=== PATIENT | male | born 1940 | race Caucasian/White ===

== ENCOUNTER → 2016-03-03 | Outpatient (CLI) | payer MEDICARE, OTHER ==
[~2016-03-03] MED LIST: ACID1TAB PO; AGM875T PO; AML5T; AMLO10TA PO; AMLO10TA2 PO; AMLO5TAB2 PO; ASP81TEC PO; ASPI-983 PO; ATN25T; Aspirin PO; CARV12.53 PO; CLON0.1T PO; CLOP75TA28 PO; CLPD75T PO; COLE3.75 PO; CYCL10TA45; DICL75TA2 PO; DIPH25TA82 PO; DIPHENHYDRAMINE PO; FENO145T PO; FRSM20T PO; FURO40TA4 PO; GABA-488 PO; GABA600T PO; GABA600T2 PO; GBPN300C PO; HCTZ12.5T; HYDR25TA4 PO; IPRA3AMP INH; KCL10CCR PO; LISI40TA PO; LSNP20T PO; MELA1TAB16 PO; METH10TA12 PO; MULT-974 PO; NEBU-140 MC; NF-DICLOTA; NF-VITD400 PO; NITR-65 PO; OMEP-10 PO; OMG1KC PO; OXYC15TA21 PO; OXYC5TAB71 PO; PANT40TA3 PO; PHEN200T27 PO; PNT40TEC PO; POLY17PO23 PO; POTA-51 PO; PRALUENT SQ; PRNMV1T PO; SMV20T; SULF1TAB38 PO; TRZS2T PO; VENL150C PO; VENL150T4 PO; VENL225T3 PO; VENL75CA55 PO; VENL75CA93 PO; VNL75T PO; [UNRECOGNIZED DRUG - CODE]; [UNRECOGNIZED DRUG - OTHER] PO
--- OUTSIDE RECORDS SUMMARY | 2016-03-03 11:10 | XMS REPORT | Continuity of Care Document ---
Author Author [facility] Organization [facility] Address Unknown Phone Unavailable Care Team Providers Care Correctional Officer Name Role Phone Shelton Aburto PCP [phone] Source Comments Some departments are not documenting in the electronic medical record. If you do not see the information that you expected, contact Release of Information in the Health Information Management department at [phone] for further assistance in locating additional records.[facility] Active Allergies and Adverse Reactions Allergen Noted Date Severity Reactions Comments Adhesive 06/29/2009 Medium SEE COMMENTS Foam Tape, causes burning and skin breakdown and burning Iv Contrast Dye, Iodine 03/04/2015 Medium RASH Containing Current Medications Prescription Sig. Disp. Refills Start End Date Status Date diphenhydrAMINE Take 25 mg by mouth At Active (BENADRYL) 25 mg capsule Bedtime Daily. MULTIVITAMIN (ONE-A-DAY Take 1 Tab by mouth Active ESSENTIAL PO) Daily. cholecalciferol (VITAMIN Take 1 Tab by mouth Every Active D-3) 400 unit PO Tab Morning. potassium chloride SR Take 1 Tab by mouth Active (K-DUR) 20 mEq PO tablet Daily. carvedilol (COREG) 12.5 Take 1 Tab by mouth twice 180 Tab 3 08/07/19 Active mg PO tablet daily. [address] Take 75 mg by mouth twice Active (VOLTAREN) 75 mg tablet daily. venlafaxine XR (EFFEXOR Take 225 mg by mouth Active XR) 75 mg capsule daily. pantoprazole DR Take 40 mg by mouth at Active (PROTONIX) 40 mg tablet bedtime daily. lisinopril (PRINIVIL, Take 40 mg by mouth Active ZESTRIL) 40 mg tablet daily. furosemide (LASIX) 40 mg Take 40 mg by mouth Active tablet daily. clopiDOGrel (PLAVIX) 75 Take 1 Tab by mouth 1 Tab 10/18/19 Active mg tablet daily. May resume on POD 13 5 oxyCODone (OXY-IR) 15 mg Take 15 mg by mouth every Active tablet morning gabapentin (NEURONTIN) Take 300 mg by mouth. 2 Active 300 mg capsule cap twice daily CODEINE SULFATE PO Take by mouth. Active Active Problems Problem Noted Date Bladder stones 11/02/2015 Lumbar stenosis 10/15/2012 Chronic suprapubic catheter (HCC) 11/15/2010 Overview: Initially placed 11/15/2010; Dr. Douglas. 20 Fr SPT changed q 2-4 wks, indefinitely. L ast Assessment & Plan: Cystoscopy today revealed no evidence of bladder tumor or lesions. (+)few small, sub-cm stones. Renal insufficiency 07/30/2010 Hx-TIA (transient ischemic attack) 07/30/2010 GABI (obstructive sleep apnea) 07/30/2010 Overview: Uses C-PAP. Chronic back pain Bladder neck contracture Overview: Recurrent BNC s/p multiple TUIBNC +/- Mitomycin C injection. Currently managed w/ chronic SP Tube, initially placed 11/15/2010; Dr. Douglas. L ast Assessment & Plan: See chronic SP catheter A&P note. CAD (coronary artery disease) Prostate cancer ([facility]) Overview: PSA (09/28/1996)=8.9 ng/mL. RRP -- 12/23/1996; Angel Cordova MD. pT2 N0 Mx PSA (01/15/1998)=0.51 ng/mL. Salvage XRT ~ 1999. LHRH-agonist ~ 1999. L ast Assessment & Plan: RTC w/ outside PSA ~ 6 mo. Post-traumatic bulbous urethral stricture Overview: Recurrent Urethral Stricture s/p multiple DVIU 's. Currently managed w/ chronic SP Tube, initially placed 11/15/2010; Dr. Douglas. L ast Assessment & Plan: See chronic SP catheter A&P note. IVA (stress urinary incontinence), male Overview: AUS Placement -- 05/10/2010; Dr. Douglas. AUS Removal d/t urethral erosion -- 08/28/2010; Dr. Douglas. L ast Assessment & Plan: See chronic SP catheter A&P note. Hematuria, gross Overview: Cystoscopy & CT Urogram (02/11/2013) --> no evidence of malignancy or stones. Cystoscopy (07/22/2014) --> No evidence of malignancy. Cystoscopy (11/02/2015) --> No evidence of malignancy. L ast Assessment & Plan: Likely secondary to chronic anticoagulation & catheter irritation. Repeat cysto ~ July 2015. History of tobacco use Chronic anticoagulation Obesity (BMI 30-39.9) Immunizations Name Dates Previously Given Next Due Pneumococcal Vaccine 10/16/2012 (23-[place] Adult) Social History Tobacco Use Types Packs/Day Years Used Date Former Smoker Cigarettes 1 20 Quit: 04/30/1989 Smokeless Tobacco: Never Used Alcohol Use Drinks/Week oz/Week Comments Yes rarely Last Filed Vital Signs Vital Sign Reading Time Taken Blood Pressure 141/61 11/02/2015 2:57 PM CDT Pulse 61 11/02/2015 2:57 PM CDT Temperature 36.9 C (98.5 F) 10/17/2012 8:00 AM CDT Respiratory Rate 16 05/06/2011 4:00 AM CDT Height 1.778 m (5' 10") 11/02/2015 2:57 PM CDT Weight 115.667 kg (255 lb) 11/02/2015 2:57 PM CDT Body Mass Index 36.59 11/02/2015 2:57 PM CDT Oxygen Saturation 98% 10/17/2012 8:00 AM CDT Plan of Care Health Maintenance Due Date Last Done Comments Physical (Comprehensive) 1945 Exam Pertussis Vaccine 1949 Tetanus Vaccine 12/25/1955 Shingles Vaccine 1998 Prevnar/Pneumovax (#2) 10/16/2013 10/16/2012 Influenza Vaccine 10/22/2015 Results from Last 3 Months Not on file
--- NOTE | 2016-03-03 15:38 | Diagnostic Imaging Report ---
PROCEDURE: MRI right joint upper extremity without contrast. TECHNIQUE: Multiplanar, multisequence non contrast-enhanced MRI of the right upper extremity was accomplished. INDICATION: Right shoulder pain. FINDINGS: There is acromioclavicular joint osteoarthritis with associated effusion and prominent osteophyte. There is a ganglion cyst communicating with the AC joint extending inferiorly and medially. There is subchondral edema seen. There is inferior osteophyte from the clavicular side of the joint noted. There is superior subluxation of the humeral head with associated retracted full-thickness tear of the supraspinatus and infraspinatus tendons with retraction of the tendon stump of 3-4 cm. There is subchondral cyst formation at the insertion of the supraspinatus footplate region identified. The subscapularis demonstrates a full-thickness tear with a few remaining intact fibers inferiorly seen. There is medial subluxation of the long head of biceps tendon superiorly. The glenohumeral joint demonstrates a small effusion. There is cartilage fissuring and thinning seen and inferior osteophytes noted of the humeral side of this joint. There is mild complex appearing distention of the subdeltoid subacromial bursa. The glenoid labrum is not well evaluated. There is moderate to severe atrophy of the supraspinatus and subscapular muscles. There is mild atrophy in the infraspinatus. When compared to 08/27/2013 exam, there is worsening of the rotator cuff tears and worsening of the atrophy in the rotator cuff muscles. IMPRESSION: 1. Chronic full-thickness retracted rotator cuff tear with superior subluxation of the humeral head. There is significant atrophy of the supraspinatus and subscapularis muscles. 2. Prominent AC joint osteoarthritis with a joint effusion and inferior osteophytes. 3. Full-thickness tear involving the superior fibers of the subscapular tendon. Dictated by: Dictated on workstation # [id number]
== END ==
LOC: RAD 11:06
PROVIDERS: ATTEND Nurse Practitioner Family
DX: M25.511 Pain in right shoulder (principal)
CPT/HCPCS: 73221

== ENCOUNTER 2016-05-15 22:41 | Emergency (ER) | payer MEDICARE, OTHER ==
[~2016-05-15] VITALS: Ht 177.8 cm; Wt 115.2 kg
[~2016-05-15 22:41] MED LIST changes: -ACID1TAB PO; -AMLO10TA2 PO; -ASPI-983 PO; -CLON0.1T PO; -CLOP75TA28 PO; -GABA600T2 PO; -IPRA3AMP INH; -NEBU-140 MC; -PANT40TA3 PO; -PRALUENT SQ; -VENL75CA93 PO
--- NOTE | 2016-05-15 23:31 | ED Abdominal Pain ---
General Chief Complaint: Abdominal/GI Problems Stated Complaint: AB PAIN DISCLORATION 4 DAYS POST COLONOSCOPY Source of Information: Patient, RN Notes Reviewed Exam Limitations: No Limitations History of Present Illness Time Seen By Provider: 23:31 Initial Comments As above and below. Concerned because has had rapid bruising, swelling, and ecchymosis develop across his lower abdomen extending around to his sides today. No problems p/ his procedure @ [facility] 4 days ago until now. Timing/Duration: 12-24 Hours Severity/Quality: Moderate Location: RLQ, LLQ, Suprapubic Activities at Onset: None Modifying Factors: Improves With Other (unknown) Associated Symptoms: Swelling/Mass in Abdomen Allergies and Home Medications Allergies Uncoded Allergies: SURGICAL TAPE (Adverse Reaction, Intermediate, IRRITATES SKIN, 08/16/10) Home Medications Amlodipine Besylate 10 Mg Tablet, 10 MG PO DAILY, (Reported) Carvedilol 12.5 Mg Tablet, 12.5 MG PO BID, (Reported) Clopidogrel Bisulfate 75 Mg Tab, 75 MG PO DAILY, (Reported) Colesevelam Hcl 3.75 Gm Powd.pack, 3.75 GM PO DAILY, (Reported) Diclofenac Sodium 75 Mg Tablet.dr, 75 MG PO BID, (Reported) Diphenhydramine Hcl 25 Mg Tablet, 25 MG PO HS, (Reported) Furosemide 40 Mg Tablet, 40 MG PO DAILY, (Reported) Gabapentin 300 Mg Capsule, 600 MG PO BID, (Reported) TAKES 2 (300MG) CAPSULES Hydrochlorothiazide 25 Mg Tablet, 25 MG PO DAILY, (Reported) Lisinopril 40 Mg Tablet, 40 MG PO DAILY, (Reported) Melatonin/Pyridoxine Hcl (B6) 1 Each Tablet, 5 MG PO HS, (Reported) Multivitamin 1 Each Tablet, 1 TAB PO DAILY, (Reported) [place] 3 Polyunsat Fatty Acids 1,000 Mg Cap, 1,000 MG PO BID, (Reported) Oxycodone Hcl 5 Mg Tablet, 20 MG PO DAILY, (Reported) TAKES 4 (5MG) TABLETS Pantoprazole Sod 40 Mg Tab, 40 MG PO HS, (Reported) Polyethylene Glycol 17 Gm Pack, 17 GM PO DAILY PRN for CONSTIPATION, (Reported) Potassium Chloride 20 Meq Tablet.er, 20 MEQ PO HS, (Reported) Terazosin Hcl 2 Mg Cap, 2 MG PO DAILY, (Reported) Venlafaxine Hcl 75 Mg Cap.sr.24h, 75 MG PO DAILY, (Reported) TAKES ALONG WITH VENLAFAXINE ER 150MG Venlafaxine Hcl 150 Mg Tab.osm.24, 150 MG PO DAILY, (Reported) TAKES ALONG WITH VENLAFAXINE ER 75MG Vitamin D 400 Iu Tab, 400 UNIT PO DAILY, (Reported) [Aspirin] 81 MG TABEC, 81 MG PO DAILY, #100 Prescribed by: KIMBERLI BARRETT on 12/12/13 0809 Review of Systems Constitutional: see HPI Gastrointestinal: See HPI, Other (lower abdominal swelling and eccymosis) Skin: see HPI, other (extensive ecchymosis/bruising lower abdomen) All Other Systems Reviewed Negative Unless Noted: Yes (Negative excepted noted.) Past Cfuryhi-Bkpziz-Zrwguq Hx Patient Social History Alcohol Use: Occasionally Uses Recreational Drug Use: No Smoking Status: Former Smoker Former Smoker/When Quit: Dec 11, 1988 Recent Foreign Travel: No Contact w/Someone Who Travel: No Recent Hopitalizations: Yes Immunizations Up To Date Date of Pneumonia Vaccine: Jul 24, 2011 Date of Influenza Vaccine: Dec 25, 2013 Surgeries HX Surgeries: Yes (SURG TO RESOLVE URINARY INC, TURP, NECK, colostomy) Surgeries: Abdominal, Adenoidectomy, Appendectomy, Bladder Surgery, CABG, Prostatectomy, Tonsillectomy, Urinary Diversion Respiratory Hx Respiratory Disorders: Yes Respiratory Disorders: COPD Cardiovascular Hx Cardiac Disorders: Yes Cardiac Disorders: Coronary Artery Disease, Heart Murmur, High Cholesterol, Hypertension Neurological Hx Neurological Disorders: 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) Neurological Disorders: Stroke Reproductive System Hx Reproductive Disorders: No Genitourinary Hx Genitourinary Disorders: Yes (suprapubic catheter) Genitourinary Disorders: Prostate Problems Gastrointestinal Hx Gastrointestinal Disorders: Yes (recent colostomy ) Gastrointestinal Disorders: Gastroesophageal Reflux Musculoskeletal Hx Musculoskeletal Disorders: Yes (uses walker) Musculoskeletal Disorders: Back Injury Endocrine Hx Endocrine Disorders: No HEENT HX ENT Disorders: No Cancer Hx Cancer: Yes Cancer: Prostate Psychosocial Hx Psychiatric Problems: No Blood Transfusions Hx Blood Disorders: No Physical Exam Vital Signs Capillary Refill : General Appearance: WD/WN, obese, other (anxious) Respiratory: no respiratory distress Cardiovascular: regular rate, rhythm Gastrointestinal: soft, other (extensive bruising/swelling lower abdomen extending laterally around his sides (L>R).) Rectal: deferred Neurologic/Psychiatric: no motor/sensory deficits, alert, oriented x 3 Skin: warm/dry, ecchymosis (as outlined above) Progress/Results/Core Measures Results/Orders Lab Results Laboratory Tests Test 05/16/16 00:16 Range/Units White Blood Count 7.2 4.3-11.0 10^3/uL Red Blood Count 3.54 L 4.35-5.85 10^6/uL Hemoglobin 10.9 L 13.3-17.7 G/DL Hematocrit 33 L 40-54 % Mean Corpuscular Volume 94 80-99 FL Mean Corpuscular Hemoglobin 31 25-34 PG Mean Corpuscular Hemoglobin Concent 33 32-36 G/DL Red Cell Distribution Width 15.2 H 10.0-14.5 % Platelet Count 338 130-400 10^3/uL Mean Platelet Volume 9.1 7.4-10.4 FL Neutrophils (%) (Auto) 63 42-75 % Lymphocytes (%) (Auto) 18 12-44 % Monocytes (%) (Auto) 12 0-12 % Eosinophils (%) (Auto) 6 0-10 % Basophils (%) (Auto) 0 0-10 % Neutrophils # (Auto) 4.6 1.8-7.8 X 10^3 Lymphocytes # (Auto) 1.3 1.0-4.0 X 10^3 Monocytes # (Auto) 0.9 0.0-1.0 X 10^3 Eosinophils # (Auto) 0.5 H 0.0-0.3 10^3/uL Basophils # (Auto) 0.0 0.0-0.1 10^3/uL Prothrombin Time 13.3 12.2-14.7 SEC INR Comment 1.0 0.8-1.4 Activated Partial Thromboplast Time 32 24-35 SEC Sodium Level 139 135-145 MMOL/L Potassium Level 4.0 3.6-5.0 MMOL/L Chloride Level 104 98-107 MMOL/L Carbon Dioxide Level 23 21-32 MMOL/L Anion Gap 12 5-14 MMOL/L Blood Urea Nitrogen 17 7-18 MG/DL Creatinine 1.06 0.60-1.30 MG/DL Estimat Glomerular Filtration Rate > 60 BUN/Creatinine Ratio 16 Glucose Level 113 H 70-105 MG/DL Calcium Level 9.3 8.5-10.1 MG/DL Total Bilirubin 0.5 0.1-1.0 MG/DL Aspartate Amino Transf (AST/SGOT) 45 H 5-34 U/L Alanine Aminotransferase (ALT/SGPT) 52 0-55 U/L Alkaline Phosphatase 104 40-136 U/L Total Protein 7.6 6.4-8.2 G/DL Albumin 3.9 3.2-4.5 G/DL My Orders Orders - JALEEL MILLS DO Cbc With Automated Diff (05/15/16 23:30) Comprehensive Metabolic Panel (05/15/16 23:30) Protime With Inr (05/15/16 23:30) Partial Thromboplastin Time (05/15/16 23:30) Ct Abdomen/Pelvis Wo (05/15/16 23:30) Saline Lock/Iv-Start (05/16/16 00:17) Vital Signs/I&O Progress Note : Progress Note Did discuss patient's presenting symptoms and the radiologist's findings on CT c / the patient's surgeon @ [facility]. He felt comfortable that the patient's findings/ symptoms are typical post op findings associated c/ the procedure he performed on the patient. Recommend reassurance to the patient and his . Offered to see them in his office on Monday. Their to call him sooner if further concerns /questions. Diagnostic Imaging Diagonstic Imaging: CT Plain Films/CT/US/NM/MRI: abdomen, pelvis Reviewed: Reviewed [facility] Study Departure Impression Impression: Primary Impression: Post op abdominal wall hematoma Disposition: HOME, SELF-CARE Condition: Stable Departure-Patient Inst. Decision time for Depature: 01:07 Referrals: FEDE BUTLER MD (PCP/Family) Primary Care Physician Patient Instructions: HEMATOMA Add. Discharge Instructions: All discharge instructions reviewed with patient and/or family. Voiced understanding. YOUR SURGEON SAID TO CALL HIM IF ANYTHING CHANGES, OR WITH CONCERNS. HE IS IN HIS OFFICE ALL DAY MONDAY AND SAID HE WOULD BE GLAD TO SEE THEN IN NEEDED. JALEEL MILLS DO May 15, 2016 23:31
[2016-05-16 00:22] LABS: BASOPHILS % (AUTO) 0 % (0-10); EOSINOPHILS # (AUTO) 0.5 10^3/uL (0.0-0.3); EOSINOPHILS % (AUTO) 6 % (0-10); LYMPHOCYTES # (AUTO) 1.3 X 10^3 (1.0-4.0); LYMPHOCYTES % (AUTO) 18 % (12-44); MEAN CORPUSCULAR HEMOGLOBIN 31 PG (25-34); MEAN CORPUSCULAR HGB CONC 33 G/DL (32-36); MEAN CORPUSCULAR VOLUME 94 FL (80-99); MEAN PLATELET VOLUME 9.1 FL (7.4-10.4); MONOCYTES # (AUTO) 0.9 X 10^3 (0.0-1.0); MONOCYTES % (AUTO) 12 % (0-12); NEUTROPHILS # (AUTO) 4.6 X 10^3 (1.8-7.8); NEUTROPHILS % (AUTO) 63 % (42-75); PLATELET COUNT 338 10^3/uL (130-400); RED BLOOD COUNT 3.54 10^6/uL (4.35-5.85); RED CELL DISTRIBUTION WIDTH 15.2 % (10.0-14.5); WHITE BLOOD COUNT 7.2 10^3/uL (4.3-11.0)
[2016-05-16 00:34] LABS: PROTHROMBIN TIME PATIENT 13.3 SEC (12.2-14.7)
[2016-05-16 00:42] LABS: ALANINE AMINOTRANSFERASE 52 U/L (0-55); ALBUMIN 3.9 G/DL (3.2-4.5); ANION GAP 12 MMOL/L (5-14); ASPARTATE AMINO TRANSFERASE 45 U/L (5-34); BILIRUBIN,TOTAL 0.5 MG/DL (0.1-1.0); BLOOD UREA NITROGEN 17 MG/DL (7-18); BUN/CREATININE RATIO 16; CALCIUM 9.3 MG/DL (8.5-10.1); CARBON DIOXIDE 23 MMOL/L (21-32); CHLORIDE 104 MMOL/L (98-107); CREATININE SERUM 1.06 MG/DL (0.60-1.30); GFR ESTIMATED > 60; GLUCOSE 113 MG/DL (70-105); SODIUM 139 MMOL/L (135-145); TOTAL PROTEIN 7.6 G/DL (6.4-8.2)
[2016-05-16 01:15] VITALS: BP 163/85
--- NOTE | 2016-05-16 09:00 | Diagnostic Imaging Report ---
PROCEDURE: CT abdomen and pelvis without contrast. TECHNIQUE: Multiple contiguous axial images were obtained through the abdomen and pelvis without the use of intravenous contrast. INDICATION: Redness around surgery site extending across the abdomen to the hips. CORRELATION STUDY: 01/06/2014. FINDINGS: The lung bases are with scattered areas of likely fibrosis. Coronary artery calcification is present in a patient who is post sternotomy. Diffuse hepatic steatosis is present. There is a moderate-sized hiatal hernia. The spleen is unremarkable. There is atrophic change of the pancreas. The adrenal glands are unremarkable. The gallbladder and biliary tree are unremarkable. The kidneys are relatively unremarkable without hydronephrosis. There is mild scattered wall calcification of the abdominal aorta, nonaneurysmal. There is an inferior epigastric hernia containing fat. There is also a small amount of gas noted in this hernia defect. No bowel involvement. Fat-containing umbilical hernia with inflammatory stranding. Post operative changes of a left lower quadrant colostomy. There is some stranding and haziness about the left anterior abdominal wall fat. No definitive focal encapsulated fluid collection to suggest abscess. Gaona's pouch is present with the distal colon decompressed. The small bowel is not obstructed. No significant abdominal fluid collections. There are surgical changes within the pelvis with scattered surgical clips. The bladder is decompressed around a suprapubic catheter. There is a trace amount of free pelvic fluid. The osseous structures demonstrate extensive prior posterior surgical and anterior fusion hardware to be present. There is rather pronounced disc space narrowing at the T12-L1 level appearing stable. IMPRESSION: Post surgical stranding with cellulitis not excluded along the left anterior abdominal wall. No definitive interval abscess formation. Dictated by: Dictated on workstation # [id number]
--- OUTSIDE RECORDS SUMMARY | 2016-05-31 15:32 | XMS REPORT | Continuity of Care Document ---
Author Author [facility] Organization [facility] Address Unknown Phone Unavailable Care Team Providers Care Cafeteria Counter Attendant Name Role Phone Darleen Aburto PCP [phone] Source Comments Some departments are not documenting in the electronic medical record. If you do not see the information that you expected, contact Release of Information in the Health Information Management department at [phone] for further assistance in locating additional records.[facility] Active Allergies and Adverse Reactions Allergen Noted [...] note. CAD (coronary artery disease) Prostate cancer ([facility]) Overview: PSA (09/28/1996)=8.9 ng/mL. RRP -- [...] tobacco use Chronic anticoagulation Obesity (BMI 30-39.9) Most Recent Encounters Date Type Specialty Providers Description 04/20/2016 Orders Only Urology Fred Austin PA-C Prostate cancer ( HCC) (Primary Dx) Immunizations Name Dates Previously Given Next Due [...] 1998 Prevnar/Pneumovax (#2) 10/16/2013 10/16/2012 Influenza Vaccine 10/21/2016 Results from Last 3 Months Not on file
--- OUTSIDE RECORDS SUMMARY | 2016-05-31 15:32 | XMS REPORT | Continuity of Care Document ---
Author Author [facility] Organization [facility] Address Unknown Phone Unavailable Allergies Active Description Code Type Severity Reaction Onset Reported/Identified Relationship to Patient Clinical Status Yes SURGICAL TAPE SURGICAL TAPE Moderate IRRITATES SKIN 08/16/2010 Yes CRESTOR CRESTOR Mild N/A 08/30/2011 Yes LIPITOR LIPITOR Mild N/A 08/30/2011 Yes NIASPAN NIASPAN Mild N/A 08/30/2011 Yes ZOCOR ZOCOR Mild N/A 08/30/2011 Medications Problems Date Dx Coded Attending Type Code Diagnosis Diagnosed By 10/02/2010 Ot 788.20 RETENTION OF URINE NOS 10/02/2010 Ot V55.6 ATTEN TO URINOSTOMY NEC 10/31/2010 Ot 599.0 URIN TRACT INFECTION NOS 10/31/2010 Ot 791.9 ABN URINE FINDINGS NEC 01/26/2011 Ot 791.9 ABN URINE FINDINGS NEC 01/26/2011 Ot V53.6 FITTING URINARY DEVICES 03/04/2012 Ot 599.0 URIN TRACT INFECTION NOS 12/12/2013 KIMBERLI BARRETT MD Ot 272.4 HYPERLIPIDEMIA NEC/NOS 12/12/2013 KIMBERLI BARRETT MD Ot 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 12/12/2013 KIMBERLI BARRETT MD Ot 401.9 HYPERTENSION NOS 12/12/2013 KIMBERLI BARRETT MD Ot 414.01 CORONARY ATHEROSCLEROSIS OF [place] CORON 12/12/2013 KIMBERLI BARRETT MD Ot 414.02 CORON ATHEROSCLEROSIS AUTOLOG VEIN BYPAS 12/12/2013 KIMBERLI BARRETT MD Ot 414.2 CHRONIC TOTAL OCCLUSION OF CORONARY KIT 12/12/2013 KIMBERLI BARRETT MD Ot 496 CHR AIRWAY OBSTRUCT NEC 12/12/2013 KIMBERLI BARRETT MD Ot 786.09 RESPIRATORY ABNORM NEC 12/12/2013 KIMBERLI BARRETT MD Ot V45.81 AORTOCORONARY BYPASS 12/12/2013 KIMBERLI BARRETT MD Ot V58.63 LONG-TERM(CURRENT)USE OF ANTIPLATELET/AN 12/12/2013 KIMBERLI BARRETT MD Ot V58.69 OT MED,LT,CURRENT USE 02/03/2014 KIMBERLI BARRETT MD Ot 401.9 02/03/2014 KIMBERLI BARRETT MD Ot 443.9 09/24/2014 JT JENSEN, ZION Grullon Ot 272.4 09/24/2014 JT JENSEN, ZION Grullon Ot 401.9 09/24/2014 JT JENSEN, ZION Grullon Ot 414.9 09/24/2014 ZION HUYNH Ot 433.10 10/16/2014 RENÉE DOYLE, JUSTIN Quinteros Ot 786.09 10/29/2014 RENÉE DOYLE, JUSTIN Quinteros Ot 786.09 01/20/2015 ADRIANA GALLO TEXTILE MACHINERY INSTRUCTOR Ot K42.9 01/20/2015 ADRIANA GALLO TEXTILE MACHINERY INSTRUCTOR Ot R10.9 02/06/2015 ADRIANA GALLO TEXTILE MACHINERY INSTRUCTOR Ot E86.0 02/06/2015 ADRIANA GALLO TEXTILE MACHINERY INSTRUCTOR Ot N39.0 02/10/2015 ADRIANA GALLO TEXTILE MACHINERY INSTRUCTOR Ot K42.9 02/10/2015 ADRIANA GALLO TEXTILE MACHINERY INSTRUCTOR Ot R10.9 08/11/2015 ADRIANA GALLO TEXTILE MACHINERY INSTRUCTOR Ot E86.0 DEHYDRATION 08/28/2015 ADRIANA GALLO TEXTILE MACHINERY INSTRUCTOR Ot E86.0 DEHYDRATION 03/03/2016 Ot 789.00 ABDOMINAL PAIN, UNSPECIFIED SITE 03/03/2016 Ot 790.6 ABN BLOOD CHEMISTRY NEC 03/03/2016 Ot 414.00 CORON ATHEROSCLER NOS TYPE VESSEL, NATIV 03/03/2016 Ot 429.3 CARDIOMEGALY 03/03/2016 Ot 786.05 SHORTNESS OF BREATH 03/03/2016 Ot 786.50 CHEST PAIN NOS 03/03/2016 Ot 796.4 ABN CLINICAL FINDING NEC 03/03/2016 Ot 486 PNEUMONIA, ORGANISM NOS 03/03/2016 Ot 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 03/03/2016 Ot 397.0 TRICUSPID VALVE DISEASE 03/03/2016 Ot 401.9 HYPERTENSION NOS 03/03/2016 Ot 414.00 CORON ATHEROSCLER NOS TYPE VESSEL, NATIV 03/03/2016 Ot 786.50 CHEST PAIN NOS 03/03/2016 Ot 401.9 HYPERTENSION NOS 03/03/2016 Ot 414.01 CORONARY ATHEROSCLEROSIS OF [place] CORON 03/03/2016 Ot 786.50 CHEST PAIN NOS 03/03/2016 Ot 724.02 SPINAL STENOSIS, LUMBAR REG, W/OUT NEURO 03/03/2016 JUAN DOYLE, JORGE Rodriguez Ot 716.91 ARTHROPATHY NOS-SHLDER 03/03/2016 JORGE MARTINEZ MD Ot 840.9 SPRAIN SHOULDER/ARM NOS 03/03/2016 JORGE MARTINEZ MD Ot E928.9 ACCIDENT NOS 03/03/2016 KIMBERLI BARRETT MD Ot 272.4 HYPERLIPIDEMIA NEC/NOS 03/03/2016 KIMBERLI BARRETT MD Ot 401.9 HYPERTENSION NOS 03/03/2016 KIMBERLI BARRETT MD Ot 414.00 CORON ATHEROSCLER NOS TYPE VESSEL, NATIV 03/03/2016 KIMBERLI BARRETT MD Ot 401.9 HYPERTENSION NOS 03/03/2016 KIMBERLI BARRETT MD Ot 443.9 PERIPH VASCULAR DIS NOS 03/03/2016 ZION HUYNH Ot 272.4 HYPERLIPIDEMIA NEC/NOS 03/03/2016 ZION HUYNH Ot 401.9 HYPERTENSION NOS 03/03/2016 ZION HUYNH Ot 414.9 CHR ISCHEMIC HRT DIS NOS 03/03/2016 ZION HUYNH Ot 433.10 CAROTID ARTERY OCCLUSION W O CEREBRAL IN 03/03/2016 RENÉE DOYLE, UJJABURT Quinteros Ot 786.09 RESPIRATORY ABNORM NEC 03/03/2016 ADRIANA GALLO APRN Ot K42.9 UMBILICAL HERNIA WITHOUT OBSTRUCTION OR 03/03/2016 ADRIANA GALLO APRN Ot R10.9 UNSPECIFIED ABDOMINAL PAIN 03/03/2016 ADRIANA GALLO APRN Ot E86.0 DEHYDRATION 03/03/2016 ADRIANA GALLO APRN Ot N39.0 URINARY TRACT INFECTION, SITE NOT SPECIF 03/03/2016 ADRIANA GALLO APRN Ot E86.0 DEHYDRATION 03/04/2016 ADRIANA GALLO APRN Ot M25.511 PAIN IN RIGHT SHOULDER 03/24/2016 ADRIANA GALLO APRN Ot M25.511 PAIN IN RIGHT SHOULDER 05/16/2016 JALEEL MILLS DO Ot I25.10 ATHSCL HEART DISEASE OF [place] CORONARY 05/16/2016 JALEEL MILLS DO Ot J44.9 CHRONIC OBSTRUCTIVE PULMONARY DISEASE, U 05/16/2016 JALEEL MILLS DO Ot L76.32 POSTPROC HEMATOMA OF SKIN, SUBCU FOLLOWI 05/16/2016 JALEEL MILLS DO Ot R10.84 GENERALIZED ABDOMINAL PAIN 05/16/2016 JALEEL MILLS DO Ot Z79.02 CORRECTION (CURRENT) USE OF ANTITHROMBOTI 05/16/2016 JALEEL MILLS DO Ot Z79.899 OTHER CORRECTION (CURRENT) DRUG THERAPY 05/16/2016 JALEEL MILLS DO Ot Z87.891 PERSONAL HISTORY OF NICOTINE DEPENDENCE 05/16/2016 JALEEL MILLS DO Ot Z93.3 COLOSTOMY STATUS 05/16/2016 JALEEL MILLS DO Ot Z95.1 PRESENCE OF AORTOCORONARY BYPASS GRAFT 05/17/2016 JALEEL MILLS DO Ot I25.10 ATHSCL HEART DISEASE OF [place] CORONARY 05/17/2016 JALEEL MILLS DO, Ot J44.9 CHRONIC OBSTRUCTIVE PULMONARY DISEASE, U 05/17/2016 JALEEL MILLS DO Ot L76.32 POSTPROC HEMATOMA OF SKIN, SUBCU FOLLOWI 05/17/2016 JALEEL MILLS DO Ot R10.84 GENERALIZED ABDOMINAL PAIN 05/17/2016 JALEEL MILLS DO Ot Z79.02 FRONT SERVICES AGENT (CURRENT) USE OF ANTITHROMBOTI 05/17/2016 JALEEL MILLS DO, Ot Z79.899 OTHER FRONT SERVICES AGENT (CURRENT) DRUG THERAPY 05/17/2016 JALEEL MILLS DO Ot Z87.891 PERSONAL HISTORY OF NICOTINE DEPENDENCE 05/17/2016 JALEEL MILLS DO Ot Z93.3 COLOSTOMY STATUS 05/17/2016 JALEEL MILLS DO Ot Z95.1 PRESENCE OF AORTOCORONARY BYPASS GRAFT 05/25/2016 JIMMY GOOD DO Ot D64.9 ANEMIA, UNSPECIFIED 05/25/2016 JIMMY GOOD DO Ot D72.829 ELEVATED WHITE BLOOD CELL COUNT, UNSPECI 05/25/2016 JIMMY GOOD DO Ot E66.9 OBESITY, UNSPECIFIED 05/25/2016 JIMMY GOOD DO Ot E78.00 PURE HYPERCHOLESTEROLEMIA, UNSPECIFIED 05/25/2016 DAREKDER JIMMY LIU Ot 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 05/25/2016 LATISHA LIU, JIMMY Peoples Ot I10 ESSENTIAL (PRIMARY) HYPERTENSION 05/25/2016 LATISHA LIU, JIMMY Peoples Ot I25.10 ATHSCL HEART DISEASE OF [place] CORONARY 05/25/2016 [facility] JIMMY Peoples Ot J18.9 PNEUMONIA, UNSPECIFIED ORGANISM 05/25/2016 LATISHA LIU, JIMMY Peoples Ot J44.9 CHRONIC OBSTRUCTIVE PULMONARY DISEASE , U 05/25/2016 LATISHA LIUJIMMY Ot K21.9 GASTRO-ESOPHAGEAL REFLUX DISEASE WITHOUT 05/25/2016 DAREKDER , JIMMY Peoples Ot L30.9 DERMATITIS, UNSPECIFIED 05/25/2016 LATISHA LIUJIMMY Ot N39.0 URINARY TRACT INFECTION, SITE NOT SPECIF 05/25/2016 LATISHA LIUJIMMY Ot R01.1 CARDIAC MURMUR, UNSPECIFIED 05/25/2016 LATISHA LIUJIMMY Ot Z68.36 BODY MASS INDEX (BMI) 36.0-36.9, ADULT 05/25/2016 LATISHA LIUJIMMY Ot Z85.46 PERSONAL HISTORY OF MALIGNANT NEOPLASM O 05/25/2016 LATISHA LIUJIMMY Ot Z86.73 PRSNL HX OF TIA (TIA), AND CEREB INFRC W 05/25/2016 [facility]IM[facility] Ot Z87.891 PERSONAL HISTORY OF NICOTINE DEPENDENCE 05/25/2016 [facility] Ot Z90.79 ACQUIRED ABSENCE OF OTHER GENITAL ORGAN( 05/25/2016 LATISHA LIUJIMMY Ot Z93.3 COLOSTOMY STATUS 05/25/2016 [facility] Ot Z93.50 UNSPECIFIED CYSTOSTOMY STATUS 05/25/2016 [facility] JIMMY Ot Z95.1 PRESENCE OF AORTOCORONARY BYPASS GRAFT 05/26/2016 LATISHA LIUJIMMY Ot D64.9 ANEMIA, UNSPECIFIED 05/26/2016 LATISHA LIUJIMMY Ot D72.829 ELEVATED WHITE BLOOD CELL COUNT, UNSPECI 05/26/2016 LATISHA LIUJIMMY Ot E66.9 OBESITY, UNSPECIFIED 05/26/2016 LATISHA ILUJIMMY Ot E78.00 PURE HYPERCHOLESTEROLEMIA, UNSPECIFIED 05/26/2016 [facility] Ot 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 05/26/2016 LATISHA LIUJIMMY Ot I10 ESSENTIAL (PRIMARY) HYPERTENSION 05/26/2016 LATISHA LIUJIMMY Ot I25.10 ATHSCL HEART DISEASE OF [place] CORONARY 05/26/2016 LATISHA LIUJIMMY Ot J18.9 PNEUMONIA, UNSPECIFIED ORGANISM 05/26/2016 LATISHA LIUJIMMY Ot J44.9 CHRONIC OBSTRUCTIVE PULMONARY DISEASE , U 05/26/2016 LATISHA JIMMY LIU Ot K21.9 GASTRO-ESOPHAGEAL REFLUX DISEASE WITHOUT 05/26/2016 LATISHA LIUJIMMY Ot L30.9 DERMATITIS, UNSPECIFIED 05/26/2016 LATISHA LIUJIMMY Ot N39.0 URINARY TRACT INFECTION, SITE NOT SPECIF 05/26/2016 [facility] JIMMY LIU Ot R01.1 CARDIAC MURMUR, UNSPECIFIED 05/26/2016 LATISHA LIUJIMMY Ot Z68.36 BODY MASS INDEX (BMI) 36.0-36.9, ADULT 05/26/2016 LATISHA LIUJIMMY Ot Z85.46 PERSONAL HISTORY OF MALIGNANT NEOPLASM O 05/26/2016 LATISHA LIUJIMMY Ot Z86.73 PRSNL HX OF TIA (TIA), AND CEREB INFRC W 05/26/2016 LATISHA LIUJIMMY Ot Z87.891 PERSONAL HISTORY OF NICOTINE DEPENDENCE 05/26/2016 LATISHA LIUJIMMY Ot Z90.79 ACQUIRED ABSENCE OF OTHER GENITAL ORGAN( 05/26/2016 LATISHA LIUJIMMY Ot Z93.3 COLOSTOMY STATUS 05/26/2016 LATISHA LIUJIMMY Ot Z93.50 UNSPECIFIED CYSTOSTOMY STATUS 05/26/2016 LATISHA LIUJIMMY Ot Z95.1 PRESENCE OF AORTOCORONARY BYPASS GRAFT 05/27/2016 LATISHA LIUJIMMY Ot D64.9 ANEMIA, UNSPECIFIED 05/27/2016 LATISHA LIUJIMMY Ot D72.829 ELEVATED WHITE BLOOD CELL COUNT, UNSPECI 05/27/2016 LATISHA LIUJIMMY Ot E66.9 OBESITY, UNSPECIFIED 05/27/2016 LATISHA LIUJIMMY Ot E78.00 PURE HYPERCHOLESTEROLEMIA, UNSPECIFIED 05/27/2016 LATISHA LIUJIMMY Ot 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 05/27/2016 LATISHA LIUJIMMY Ot I10 ESSENTIAL (PRIMARY) HYPERTENSION 05/27/2016 LATISHA LIUJIMMY Ot I25.10 ATHSCL HEART DISEASE OF [place] CORONARY 05/27/2016 LATISHA LIUJIMMY Ot J18.9 PNEUMONIA, UNSPECIFIED ORGANISM 05/27/2016 LATISHA JIMMY LIU Ot J44.9 CHRONIC OBSTRUCTIVE PULMONARY DISEASE , U 05/27/2016 LATISHA JIMMY LIU Ot K21.9 GASTRO-ESOPHAGEAL REFLUX DISEASE WITHOUT 05/27/2016 LATISHA LIUJIMMY Ot L30.9 DERMATITIS, UNSPECIFIED 05/27/2016 LATISHA LIUJIMMY Ot N39.0 URINARY TRACT INFECTION, SITE NOT SPECIF 05/27/2016 LATISHA JIMMY LIU Ot R01.1 CARDIAC MURMUR, UNSPECIFIED 05/27/2016 LATISHA LIUJIMMY Ot Z68.36 BODY MASS INDEX (BMI) 36.0-36.9, ADULT 05/27/2016 LATISHA LIUJIMMY Ot Z85.46 PERSONAL HISTORY OF MALIGNANT NEOPLASM O 05/27/2016 LATISHA LIUJIMMY Ot Z86.73 PRSNL HX OF TIA (TIA), AND CEREB INFRC W 05/27/2016 LATISHA LIUJIMMY Ot Z87.891 PERSONAL HISTORY OF NICOTINE DEPENDENCE 05/27/2016 LATISHA LIUJIMMY Ot Z90.79 ACQUIRED ABSENCE OF OTHER GENITAL ORGAN( 05/27/2016 LATISHA LIUJIMMY Ot Z93.3 COLOSTOMY STATUS 05/27/2016 LATISHA LIUJIMMY Ot Z93.50 UNSPECIFIED CYSTOSTOMY STATUS 05/27/2016 LATISHA LIUJIMMY Ot Z95.1 PRESENCE OF AORTOCORONARY BYPASS GRAFT Procedures Results Test Result Range Complete blood count (CBC) with automated white blood cell (WBC) differential - 05/16/16 00:16 Blood leukocytes automated count (number/volume) 7.2 10*3/ uL 4.3-11.0 Blood erythrocytes automated count (number/volume) 3.54 10*6 /uL 4.35-5.85 Venous blood hemoglobin measurement (mass/volume) 10.9 g/dL 13.3-17.7 Blood hematocrit (volume fraction) 33 % 40-54 Automated erythrocyte mean corpuscular volume 94 [foz_us] 80-99 Automated erythrocyte mean corpuscular hemoglobin (mass per erythrocyte) 31 pg 25-34 Automated erythrocyte mean corpuscular hemoglobin concentration measurement ( mass/volume) 33 g/dL 32-36 Automated erythrocyte distribution width ratio 15.2 % 10.0-14.5 Automated blood platelet count (count/volume) 338 10*3/uL 130-400 Automated blood platelet mean volume measurement 9.1 [[facility] ] 7.4-10.4 Automated blood neutrophils/100 leukocytes 63 % 42-75 Automated blood lymphocytes/100 leukocytes 18 % 12-44 Blood monocytes/100 leukocytes 12 % 0-12 Automated blood eosinophils/100 leukocytes 6 % 0-10 Automated blood basophils/100 leukocytes 0 % 0-10 Blood neutrophils automated count (number/volume) 4.6 10*3 1.8-7.8 Blood lymphocytes automated count (number/volume) 1.3 10*3 1.0-4.0 Blood monocytes automated count (number/volume) 0.9 10*3 0.0-1.0 Automated eosinophil count 0.5 10*3/uL 0.0-0.3 Automated blood basophil count (count/volume) 0.0 10*3/uL 0.0-0.1 PT panel in platelet poor plasma by coagulation assay - 05/16/16 00:16 Prothrombin time (PT) in platelet poor plasma by coagulation assay 13.3 s 12.2-14.7 INR in platelet poor plasma or blood by coagulation assay 1.0 0.8-1.4 Activated partial thromboplastin time (aPTT) in platelet poor plasma bycoagulation assay - 05/16/16 00:16 Activated partial thromboplastin time (aPTT) in platelet poor plasma bycoagulation assay 32 s 24-35 Comprehensive metabolic panel - 05/16/16 00:16 Serum or plasma sodium measurement (moles/volume) 139 mmol/ L 135-145 Serum or plasma potassium measurement (moles/volume) 4.0 mmol/L 3.6-5.0 Serum or plasma chloride measurement (moles/volume) 104 mmol /L 98-107 Carbon dioxide 23 mmol/L 21-32 Serum or plasma anion gap determination (moles/volume) 12 mmol/L 5-14 Serum or plasma urea nitrogen measurement (mass/volume) 17 mg/dL 7-18 Serum or plasma creatinine measurement (mass/volume) 1.06 mg /dL 0.60-1.30 Serum or plasma urea nitrogen/creatinine mass ratio 16 NRG Serum or plasma creatinine measurement with calculation of estimated glomerular filtration rate > NRG Serum or plasma glucose measurement (mass/volume) 113 mg/dL 70-105 Serum or plasma calcium measurement (mass/volume) 9.3 mg/dL 8.5-10.1 Serum or plasma total bilirubin measurement (mass/volume) 0.5 mg/dL 0.1-1.0 Serum or plasma alkaline phosphatase measurement (enzymatic activity/volume) 104 U/L 40-136 Serum or plasma aspartate aminotransferase measurement (enzymatic activity/ volume) 45 U/L 5-34 Serum or plasma alanine aminotransferase measurement (enzymatic activity/volume ) 52 U/L 0-55 Serum or plasma protein measurement (mass/volume) 7.6 g/dL 6.4-8.2 Serum or plasma albumin measurement (mass/volume) 3.9 g/dL 3.2-4.5 Complete blood count (CBC) with automated white blood cell (WBC) differential - 05/23/16 22:20 Blood leukocytes automated count (number/volume) 14.9 10*3/ uL 4.3-11.0 Blood erythrocytes automated count (number/volume) 2.93 10*6 /uL 4.35-5.85 Venous blood hemoglobin measurement (mass/volume) 9.0 g/dL 13.3-17.7 Blood hematocrit (volume fraction) 28 % 40-54 Automated erythrocyte mean corpuscular volume 94 [foz_us] 80-99 Automated erythrocyte mean corpuscular hemoglobin (mass per erythrocyte) 31 pg 25-34 Automated erythrocyte mean corpuscular hemoglobin concentration measurement ( mass/volume) 33 g/dL 32-36 Automated erythrocyte distribution width ratio 15.3 % 10.0-14.5 Automated blood platelet count (count/volume) 366 10*3/uL 130-400 Automated blood platelet mean volume measurement 8.9 [foz_us ] 7.4-10.4 Automated blood neutrophils/100 leukocytes 81 % 42-75 Automated blood lymphocytes/100 leukocytes 8 % 12-44 Blood monocytes/100 leukocytes 8 % 0-12 Automated blood eosinophils/100 leukocytes 3 % 0-10 Automated blood basophils/100 leukocytes 0 % 0-10 Blood neutrophils automated count (number/volume) 12.1 10*3 1.8-7.8 Blood lymphocytes automated count (number/volume) 1.2 10*3 1.0-4.0 Blood monocytes automated count (number/volume) 1.2 10*3 0.0-1.0 Automated eosinophil count 0.4 10*3/uL 0.0-0.3 Automated blood basophil count (count/volume) 0.0 10*3/uL 0.0-0.1 Complete urinalysis with reflex to culture - 05/23/16 22:20 Urine color determination YELLOW NRG Urine clarity determination VERY CLOUDY NRG Urine pH measurement by test strip 9 5- 9 Specific gravity of urine by test strip 1.015 1.016-1.022 Urine protein assay by test strip, semi-quantitative 3+ NEGATIVE Urine glucose detection by automated test strip NEGATIVE NEGATIVE Erythrocytes detection in urine sediment by light microscopy 5+ NEGATIVE Urine ketones detection by automated test strip NEGATIVE NEGATIVE Urine nitrite detection by test strip POSITIVE NEGATIVE Urine total bilirubin detection by test strip NEGATIVE NEGATIVE Urine urobilinogen measurement by automated test strip (mass/volume) NORMAL NORMAL Urine leukocyte esterase detection by dipstick 3+ NEGATIVE Automated urine sediment erythrocyte count by microscopy (number/high power field) [HPF] NRG Automated urine sediment leukocyte count by microscopy (number/high power field ) [HPF] NRG Bacteria detection in urine sediment by light microscopy FEW NRG Crystals detection in urine sediment by light microscopy NONE NRG Casts detection in urine sediment by light microscopy NONE NRG Mucus detection in urine sediment by light microscopy NEGATIVE NRG Complete urinalysis with reflex to culture YES NRG PT panel in platelet poor plasma by coagulation assay - 05/23/16 22:20 Prothrombin time (PT) in platelet poor plasma by coagulation assay 15.3 s 12.2-14.7 INR in platelet poor plasma or blood by coagulation assay 1.2 0.8-1.4 Activated partial thromboplastin time (aPTT) in platelet poor plasma bycoagulation assay - 05/23/16 22:20 Activated partial thromboplastin time (aPTT) in platelet poor plasma bycoagulation assay 41 s 24-35 Blood manual differential performed detection - 05/23/16 22:20 Blood monocytes/100 leukocytes 2 % NRG Manual blood segmented neutrophils/100 leukocytes 76 % NRG Blood band neutrophils/100 leukocytes 12 % NRG Manual blood lymphocytes/100 leukocytes 5 % NRG Manual eosinophils/100 leukocytes in nose 3 % NRG Manual blood basophils/100 leukocytes 2 % NR Blood erythrocyte morphology finding identification NORMAL NR Blood lactic acid measurement (moles/volume) - 05/23/16 22:20 Blood lactic acid measurement (moles/volume) 0.77 mmol/L 0.50-2.00 Comprehensive metabolic panel - 05/23/16 22:20 Serum or plasma sodium measurement (moles/volume) 136 mmol/ L 135-145 Serum or plasma potassium measurement (moles/volume) 4.1 mmol/L 3.6-5.0 Serum or plasma chloride measurement (moles/volume) 103 mmol /L 98-107 Carbon dioxide 26 mmol/L 21-32 Serum or plasma anion gap determination (moles/volume) 7 mmol/L 5-14 Serum or plasma urea nitrogen measurement (mass/volume) 15 mg/dL 7-18 Serum or plasma creatinine measurement (mass/volume) 1.15 mg /dL 0.60-1.30 Serum or plasma urea nitrogen/creatinine mass ratio 13 NRG Serum or plasma creatinine measurement with calculation of estimated glomerular filtration rate > NRG Serum or plasma glucose measurement (mass/volume) 132 mg/dL 70-105 Serum or plasma calcium measurement (mass/volume) 8.6 mg/dL 8.5-10.1 Serum or plasma total bilirubin measurement (mass/volume) 0.5 mg/dL 0.1-1.0 Serum or plasma alkaline phosphatase measurement (enzymatic activity/volume) 82 U/L 40-136 Serum or plasma aspartate aminotransferase measurement (enzymatic activity/ volume) 14 U/L 5-34 Serum or plasma alanine aminotransferase measurement (enzymatic activity/volume ) 18 U/L 0-55 Serum or plasma protein measurement (mass/volume) 6.5 g/dL 6.4-8.2 Serum or plasma albumin measurement (mass/volume) 3.3 g/dL 3.2-4.5 Bacterial urine culture - 05/23/16 22:20 Bacterial urine culture [id number] NRG COLONY COUNT >100,000/ML NR FTX;REPORTABLE SENSITIVITY REPORTED 05/25/16 7:25 NR Bacterial blood culture - 05/23/16 22:20 Bacterial blood culture NG [facility] Bacterial susceptibility panel - 05/23/16 22:20 Gentamicin susceptibility test by minimum inhibitory concentration >= NRG Trimethoprim/sulfamethoxazole susceptibility test by minimum inhibitoryconcentration >= NRG Ampicillin susceptibility test by minimum inhibitory concentration >= NRG Tobramycin susceptibility test by minimum inhibitory concentration >= NRG Cefazolin susceptibility test by minimum inhibitory concentration S NRG Ceftriaxone susceptibility test by minimum inhibitory concentration S NRG Ampicillin/sulbactam susceptibility test by minimum inhibitory concentration 16 NRG Piperacillin/tazobactam susceptibility test by minimum inhibitory concentration <= NRG Ciprofloxacin susceptibility test by minimum inhibitory concentration >= NRG Meropenem susceptibility test by minimum inhibitory concentration <= NRG Nitrofurantoin susceptibility test by minimum inhibitory concentration 128 NRG Aztreonam susceptibility test by minimum inhibitory concentration S NRG Bacterial blood culture - 05/23/16 22:45 Bacterial blood culture NG NRG Whole blood basic metabolic panel - 05/24/16 05:35 Serum or plasma sodium measurement (moles/volume) 139 mmol/ L 135-145 Serum or plasma potassium measurement (moles/volume) 4.3 mmol/L 3.6-5.0 Serum or plasma chloride measurement (moles/volume) 106 mmol /L 98-107 Carbon dioxide 27 mmol/L 21-32 Serum or plasma anion gap determination (moles/volume) 6 mmol/L 5-14 Serum or plasma urea nitrogen measurement (mass/volume) 14 mg/dL 7-18 Serum or plasma creatinine measurement (mass/volume) 1.12 mg /dL 0.60-1.30 Serum or plasma urea nitrogen/creatinine mass ratio 13 NRG Serum or plasma creatinine measurement with calculation of estimated glomerular filtration rate > NRG Serum or plasma glucose measurement (mass/volume) 113 mg/dL 70-105 Serum or plasma calcium measurement (mass/volume) 8.4 mg/dL 8.5-10.1 Complete blood count (CBC) with automated white blood cell (WBC) differential - 05/24/16 05:50 Blood leukocytes automated count (number/volume) 13.2 10*3/ uL 4.3-11.0 Blood erythrocytes automated count (number/volume) 2.72 10*6 /uL 4.35-5.85 Venous blood hemoglobin measurement (mass/volume) 8.3 g/dL 13.3-17.7 Blood hematocrit (volume fraction) 26 % 40-54 Automated erythrocyte mean corpuscular volume 96 [foz_us] 80-99 Automated erythrocyte mean corpuscular hemoglobin (mass per erythrocyte) 31 pg 25-34 Automated erythrocyte mean corpuscular hemoglobin concentration measurement ( mass/volume) 32 g/dL 32-36 Automated erythrocyte distribution width ratio 15.6 % 10.0-14.5 Automated blood platelet count (count/volume) 358 10*3/uL 130-400 Automated blood platelet mean volume measurement 9.6 [foz_us ] 7.4-10.4 Automated blood neutrophils/100 leukocytes 79 % 42-75 Automated blood lymphocytes/100 leukocytes 8 % 12-44 Blood monocytes/100 leukocytes 10 % 0-12 Automated blood eosinophils/100 leukocytes 3 % 0-10 Automated blood basophils/100 leukocytes 0 % 0-10 Blood neutrophils automated count (number/volume) 10.4 10*3 1.8-7.8 Blood lymphocytes automated count (number/volume) 1.1 10*3 1.0-4.0 Blood monocytes automated count (number/volume) 1.3 10*3 0.0-1.0 Automated eosinophil count 0.4 10*3/uL 0.0-0.3 Automated blood basophil count (count/volume) 0.0 10*3/uL 0.0-0.1 Complete blood count (CBC) with automated white blood cell (WBC) differential - 05/25/16 04:45 Blood leukocytes automated count (number/volume) 9.3 10*3/ uL 4.3-11.0 Blood erythrocytes automated count (number/volume) 2.63 10*6 /uL 4.35-5.85 Venous blood hemoglobin measurement (mass/volume) 8.0 g/dL 13.3-17.7 Blood hematocrit (volume fraction) 25 % 40-54 Automated erythrocyte mean corpuscular volume 95 [foz_us] 80-99 Automated erythrocyte mean corpuscular hemoglobin (mass per erythrocyte) 30 pg 25-34 Automated erythrocyte mean corpuscular hemoglobin concentration measurement ( mass/volume) 32 g/dL 32-36 Automated erythrocyte distribution width ratio 15.4 % 10.0-14.5 Automated blood platelet count (count/volume) 324 10*3/uL 130-400 Automated blood platelet mean volume measurement 9.3 [foz_us ] 7.4-10.4 Automated blood neutrophils/100 leukocytes 74 % 42-75 Automated blood lymphocytes/100 leukocytes 12 % 12-44 Blood monocytes/100 leukocytes 9 % 0-12 Automated blood eosinophils/100 leukocytes 5 % 0-10 Automated blood basophils/100 leukocytes 0 % 0-10 Blood neutrophils automated count (number/volume) 6.8 10*3 1.8-7.8 Blood lymphocytes automated count (number/volume) 1.1 10*3 1.0-4.0 Blood monocytes automated count (number/volume) 0.9 10*3 0.0-1.0 Automated eosinophil count 0.5 10*3/uL 0.0-0.3 Automated blood basophil count (count/volume) 0.0 10*3/uL 0.0-0.1 Comprehensive metabolic panel - 05/25/16 04:45 Serum or plasma sodium measurement (moles/volume) 139 mmol/ L 135-145 Serum or plasma potassium measurement (moles/volume) 4.3 mmol/L 3.6-5.0 Serum or plasma chloride measurement (moles/volume) 108 mmol /L 98-107 Carbon dioxide 23 mmol/L 21-32 Serum or plasma anion gap determination (moles/volume) 8 mmol/L 5-14 Serum or plasma urea nitrogen measurement (mass/volume) 12 mg/dL 7-18 Serum or plasma creatinine measurement (mass/volume) 1.12 mg /dL 0.60-1.30 Serum or plasma urea nitrogen/creatinine mass ratio 11 NRG Serum or plasma creatinine measurement with calculation of estimated glomerular filtration rate > NRG Serum or plasma glucose measurement (mass/volume) 122 mg/dL 70-105 Serum or plasma calcium measurement (mass/volume) 8.2 mg/dL 8.5-10.1 Serum or plasma total bilirubin measurement (mass/volume) 0.4 mg/dL 0.1-1.0 Serum or plasma alkaline phosphatase measurement (enzymatic activity/volume) 80 U/L 40-136 Serum or plasma aspartate aminotransferase measurement (enzymatic activity/ volume) 17 U/L 5-34 Serum or plasma alanine aminotransferase measurement (enzymatic activity/volume ) 22 U/L 0-55 Serum or plasma protein measurement (mass/volume) 6.0 g/dL 6.4-8.2 Serum or plasma albumin measurement (mass/volume) 2.9 g/dL 3.2-4.5 Semen free prostate specific antigen (PSA) measurement (units/volume) - 04:45 Prostate specific ag [mass/volume] in serum or plasma 1.29 % 0.00-4.00 RED CELLS LEUKO REDUCED AS1 - 05/25/16 09:58 RED CELLS LEUKO REDUCED AS1 TRANSFUSED 1706 NRG Blood type T Indirect antibody screen panel - 05/25/16 09:58 ABO+Rh group ON NRG Transfusion band number [id number] NRG Blood group antibody screen NEGATIVE NRG Stool occult blood screen - 05/25/16 12:40 Stool gastrointestinal hemoglobin detection POSITIVE NEGATIVE Automated blood complete blood count (hemogram) panel - 05/26/16 06:10 Blood leukocytes automated count (number/volume) 6.8 10*3/ uL 4.3-11.0 Blood erythrocytes automated count (number/volume) 3.40 10*6 /uL 4.35-5.85 Venous blood hemoglobin measurement (mass/volume) 10.0 g/dL 13.3-17.7 Blood hematocrit (volume fraction) 31 % 40-54 Automated erythrocyte mean corpuscular volume 92 [foz_us] 80-99 Automated erythrocyte mean corpuscular hemoglobin (mass per erythrocyte) 29 pg 25-34 Automated erythrocyte mean corpuscular hemoglobin concentration measurement ( mass/volume) 32 g/dL 32-36 Automated erythrocyte distribution width ratio 17.7 % 10.0-14.5 Automated blood platelet count (count/volume) 350 10*3/uL 130-400 Automated blood platelet mean volume measurement 9.3 [foz_us ] 7.4-10.4 Comprehensive metabolic panel - 05/26/16 06:10 Serum or plasma sodium measurement (moles/volume) 144 mmol/ L 135-145 Serum or plasma potassium measurement (moles/volume) 3.7 mmol/L 3.6-5.0 Serum or plasma chloride measurement (moles/volume) 110 mmol /L 98-107 Carbon dioxide 25 mmol/L 21-32 Serum or plasma anion gap determination (moles/volume) 9 mmol/L 5-14 Serum or plasma urea nitrogen measurement (mass/volume) 11 mg/dL 7-18 Serum or plasma creatinine measurement (mass/volume) 1.01 mg /dL 0.60-1.30 Serum or plasma urea nitrogen/creatinine mass ratio 11 NRG Serum or plasma creatinine measurement with calculation of estimated glomerular filtration rate > NRG Serum or plasma glucose measurement (mass/volume) 116 mg/dL 70-105 Serum or plasma calcium measurement (mass/volume) 8.6 mg/dL 8.5-10.1 Serum or plasma total bilirubin measurement (mass/volume) 0.4 mg/dL 0.1-1.0 Serum or plasma alkaline phosphatase measurement (enzymatic activity/volume) 90 U/L 40-136 Serum or plasma aspartate aminotransferase measurement (enzymatic activity/ volume) 19 U/L 5-34 Serum or plasma alanine aminotransferase measurement (enzymatic activity/volume ) 22 U/L 0-55 Serum or plasma protein measurement (mass/volume) 6.4 g/dL 6.4-8.2 Serum or plasma albumin measurement (mass/volume) 3.1 g/dL 3.2-4.5 Magnesium - 05/26/16 06:10 Magnesium 2.0 mg/dL 1.8-2.4 Automated blood complete blood count (hemogram) panel - 05/27/16 06:09 Blood leukocytes automated count (number/volume) 6.8 10*3/ uL 4.3-11.0 Blood erythrocytes automated count (number/volume) 3.47 10*6 /uL 4.35-5.85 Venous blood hemoglobin measurement (mass/volume) 10.2 g/dL 13.3-17.7 Blood hematocrit (volume fraction) 32 % 40-54 Automated erythrocyte mean corpuscular volume 92 [foz_us] 80-99 Automated erythrocyte mean corpuscular hemoglobin (mass per erythrocyte) 29 pg 25-34 Automated erythrocyte mean corpuscular hemoglobin concentration measurement ( mass/volume) 32 g/dL 32-36 Automated erythrocyte distribution width ratio 16.9 % 10.0-14.5 Automated blood platelet count (count/volume) 359 10*3/uL 130-400 Automated blood platelet mean volume measurement 9.2 [foz_us ] 7.4-10.4 Comprehensive metabolic panel - 05/27/16 06:09 Serum or plasma sodium measurement (moles/volume) 140 mmol/ L 135-145 Serum or plasma potassium measurement (moles/volume) 4.1 mmol/L 3.6-5.0 Serum or plasma chloride measurement (moles/volume) 105 mmol /L 98-107 Carbon dioxide 27 mmol/L 21-32 Serum or plasma anion gap determination (moles/volume) 8 mmol/L 5-14 Serum or plasma urea nitrogen measurement (mass/volume) 11 mg/dL 7-18 Serum or plasma creatinine measurement (mass/volume) 1.01 mg /dL 0.60-1.30 Serum or plasma urea nitrogen/creatinine mass ratio 11 NRG Serum or plasma creatinine measurement with calculation of estimated glomerular filtration rate > NRG Serum or plasma glucose measurement (mass/volume) 110 mg/dL 70-105 Serum or plasma calcium measurement (mass/volume) 9.1 mg/dL 8.5-10.1 Serum or plasma total bilirubin measurement (mass/volume) 0.3 mg/dL 0.1-1.0 Serum or plasma alkaline phosphatase measurement (enzymatic activity/volume) 93 U/L 40-136 Serum or plasma aspartate aminotransferase measurement (enzymatic activity/ volume) 19 U/L 5-34 Serum or plasma alanine aminotransferase measurement (enzymatic activity/volume ) 21 U/L 0-55 Serum or plasma protein measurement (mass/volume) 6.5 g/dL 6.4-8.2 Serum or plasma albumin measurement (mass/volume) 3.2 g/dL 3.2-4.5 Encounters ACCT No. Visit Date/Time Discharge Status Pt. Type Provider Facility Loc./Unit Complaint [id number] 05/24/2016 00:32:00 2016 17:46:00 DIS Inpatient GELTHIAGO JIMMY LIU [facility] 4TH FEVER,UTI ,RLL WEAKNESS [id number] 05/15/2016 22:45:00 2016 01:15:00 DIS Emergency JALEEL MILLS DO [facility] ER AB PAIN DISCOLORATION 4 DAYS POST COLONOSCOPY [id number] 01/14/2015 15:32:00 2014 23:59:59 CLS Outpatient ADRIANA GALLO APRN [facility] SDC UTI,DEHYDRATION [id number] 01/13/2015 09:04:00 2014 23:59:59 CLS Outpatient ADRIANA GALLO APRN [facility] RAD ABD PAIN,UNBILICAL HERNIA [id number] 10/06/2014 14:18:00 2014 23:59:59 CLS Outpatient JUSTIN CHINCHILLA MD [facility] RT DSYPNEA [id number] 09/02/2014 13:35:00 2014 23:59:59 CLS Outpatient ZION HUYNH [facility] CARD CAD,STEVE,HTN [id number] 01/06/2014 09:13:00 2013 23:59:59 CLS Outpatient KIMBERLI BARRETT MD [facility] RAD HTN,PVD [id number] 12/11/2013 06:51:00 2013 10:00:00 DIS Outpatient KIMBERLI BARRETT MD [facility] CATH ABN STRESS TEST,CORONARY ARTERY DISEASE,HTN,HLP [id number] 12/04/2013 12:06:00 2013 23:59:59 CLS Outpatient KIMBERLI BARRETT MD [facility] CARD CAD,HTN,HLP,STEVE [id number] 08/27/2013 10:32:00 2013 23:59:59 CLS Outpatient JORGE MARTINEZ MD [facility] RAD RTC [id number] 03/03/2016 11:06:00 ACT Outpatient ADRIANA GALLO APRN [facility] RAD RIGHT SHOULDER PAIN [id number] 07/24/2015 14:21:00 ACT Outpatient ADRIANA GALLO APRN [facility] SDC DEHYDRATION [id number] 03/04/2012 08:21:00 Document Registration [id number] 02/02/2012 14:34:00 Document Registration [id number] 08/31/2011 11:19:00 Document Registration [id number] 08/25/2011 08:23:00 Document Registration [id number] 06/30/2011 14:16:00 Document Registration [id number] 06/16/2011 14:33:00 Document Registration [id number] 01/26/2011 09:13:00 Document Registration [id number] 11/18/2010 08:53:00 Document Registration [id number] 10/31/2010 17:03:00 Document Registration [id number] 10/02/2010 15:01:00 Document Registration
== END 2016-05-16 01:15 | disposition home or self-care (01) ==
LOC: EDUNIT# 22:41 → ER 22:45
DX: L76.32 Postprocedural hematoma of skin and subcutaneous tissue following other procedure (principal); J44.9 Chronic obstructive pulmonary disease, unspecified; I25.10 Atherosclerotic heart disease of native coronary artery without angina pectoris; Z79.02 Long term (current) use of antithrombotics/antiplatelets; Z79.899 Other long term (current) drug therapy; Z93.3 Colostomy status; Z87.891 Personal history of nicotine dependence; Z95.1 Presence of aortocoronary bypass graft
CPT/HCPCS: 36415; 74176; 80053; 85025; 85610; 85730

== ENCOUNTER 2016-05-23 22:02 | Inpatient (IN) | payer MEDICARE, OTHER ==
[~2016-05-23] VITALS: Ht 177.8 cm; Wt 115.4 kg
--- NOTE | 2016-05-23 22:14 | ED Fever ---
History of Present Illness General Chief Complaint: Fever-Adult/Adol Stated Complaint: FEVER/POSS SEPSIS Nursing Triage Note: c/o fever and generalized weakness Sepsis Screen: Possible Sepsis Risk Source: patient, family, EMS, RN notes reviewed Exam Limitations: no limitations History of Present Illness Time seen by provider: 22:14 Initial Comments As above and below. Family concerned he is becoming septic. Timing/Duration: this afternoon, getting worse Fever Quality: greater than 100.5 F Associated Symptoms: weakness Allergies and Home Medications Allergies Uncoded Allergies: SURGICAL TAPE (Adverse Reaction, Intermediate, IRRITATES SKIN, 08/16/10) Home Medications Amlodipine Besylate 10 Mg Tablet, 10 MG PO DAILY, (Reported) Carvedilol 12.5 Mg Tablet, 12.5 MG PO BID, (Reported) Clopidogrel Bisulfate 75 Mg Tab, 75 MG PO DAILY, (Reported) Colesevelam Hcl 3.75 Gm Powd.pack, 3.75 GM PO DAILY, (Reported) Diclofenac Sodium 75 Mg Tablet.dr, 75 MG PO BID, (Reported) Diphenhydramine Hcl 25 Mg Tablet, 25 MG PO HS, (Reported) Furosemide 40 Mg Tablet, 40 MG PO DAILY, (Reported) Gabapentin 300 Mg Capsule, 600 MG PO BID, (Reported) TAKES 2 (300MG) CAPSULES Hydrochlorothiazide 25 Mg Tablet, 25 MG PO DAILY, (Reported) Lisinopril 40 Mg Tablet, 40 MG PO DAILY, (Reported) Melatonin/Pyridoxine Hcl (B6) 1 Each Tablet, 5 MG PO HS, (Reported) Multivitamin 1 Each Tablet, 1 TAB PO DAILY, (Reported) [place] 3 Polyunsat Fatty Acids 1,000 Mg Cap, 1,000 MG PO BID, (Reported) Oxycodone Hcl 5 Mg Tablet, 20 MG PO DAILY, (Reported) TAKES 4 (5MG) TABLETS Pantoprazole Sod 40 Mg Tab, 40 MG PO HS, (Reported) Polyethylene Glycol 17 Gm Pack, 17 GM PO DAILY PRN for CONSTIPATION, (Reported) Potassium Chloride 20 Meq Tablet.er, 20 MEQ PO HS, (Reported) Terazosin Hcl 2 Mg Cap, 2 MG PO DAILY, (Reported) Venlafaxine Hcl 75 Mg Cap.sr.24h, 75 MG PO DAILY, (Reported) TAKES ALONG WITH VENLAFAXINE ER 150MG Venlafaxine Hcl 150 Mg Tab.osm.24, 150 MG PO DAILY, (Reported) TAKES ALONG WITH VENLAFAXINE ER 75MG Vitamin D 400 Iu Tab, 400 UNIT PO DAILY, (Reported) [Aspirin] 81 MG TABEC, 81 MG PO DAILY, #100 Prescribed by: KIMBERLI BARRETT on 12/12/13 0809 Constitutional: see HPI, fever, malaise, weakness Psychiatric/Neurological: See HPI, Weakness All Other Systems Reviewed Negative Unless Noted: Yes (Negative excepted noted.) Past Rrvdyeh-Jlzurl-Pfvlwj Hx Patient Social History Alcohol Use: Denies Use Recreational Drug Use: No Smoking Status: Former Smoker Former Smoker/When Quit: Dec 11, 1988 Recent Foreign Travel: No Contact w/Someone Who Travel: No Recent Infectious Disease Expo: No Recent Hopitalizations: Yes Immunizations Up To Date Date of Pneumonia Vaccine: Jul 24, 2011 Date of Influenza Vaccine: Dec 25, 2013 Surgeries HX Surgeries: Yes (SURG TO RESOLVE URINARY INC, TURP, NECK, colostomy) Surgeries: Abdominal, Adenoidectomy, Appendectomy, Bladder Surgery, CABG, Prostatectomy, Tonsillectomy, Urinary Diversion Respiratory Hx Respiratory Disorders: Yes Respiratory Disorders: COPD Cardiovascular Hx Cardiac Disorders: Yes Cardiac Disorders: Coronary Artery Disease, Heart Murmur, High Cholesterol, Hypertension Neurological Hx Neurological Disorders: 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) Neurological Disorders: Stroke Reproductive System Hx Reproductive Disorders: No Genitourinary Hx Genitourinary Disorders: Yes (suprapubic catheter) Genitourinary Disorders: Prostate Problems Gastrointestinal Hx Gastrointestinal Disorders: Yes (recent colostomy ) Gastrointestinal Disorders: Gastroesophageal Reflux Musculoskeletal Hx Musculoskeletal Disorders: Yes (uses walker) Musculoskeletal Disorders: Back Injury Endocrine Hx Endocrine Disorders: No HEENT HX ENT Disorders: No Cancer Hx Cancer: Yes Cancer: Prostate Psychosocial Hx Psychiatric Problems: No Blood Transfusions Hx Blood Disorders: No Physical Exam Vital Signs Vital Sign - Last 12Hours 05/23/16 22:08 Temp 100.6 Pulse 75 Resp 22 B/P (MAP) 134/63 Pulse Ox 93 Capillary Refill : Less Than 3 Seconds General Appearance: WD/WN, no apparent distress, obese HEENT: pharynx normal Neck: supple Respiratory: no respiratory distress, decreased breath sounds (especially on the right) Cardiovascular: regular rate, rhythm Gastrointestinal: non tender Neurologic/Psychiatric: other (appears ill; is somnolent) Skin: warm/dry Focused Exam Lactic Acid Level Laboratory Tests Test 05/23/16 22:20 Lactic Acid Level 0.77 MMOL/L (0.50-2.00) Progress/Results/Core Measures Results/Orders Lab Results Laboratory Tests Test 05/23/16 22:20 Range/Units White Blood Count 14.9 H 4.3-11.0 10^3/uL Red Blood Count 2.93 L 4.35-5.85 10^6/uL Hemoglobin 9.0 L 13.3-17.7 G/DL Hematocrit 28 L 40-54 % Mean Corpuscular Volume 94 80-99 FL Mean Corpuscular Hemoglobin 31 25-34 PG Mean Corpuscular Hemoglobin Concent 33 32-36 G/DL Red Cell Distribution Width 15.3 H 10.0-14.5 % Platelet Count 366 130-400 10^3/uL Mean Platelet Volume 8.9 7.4-10.4 FL Neutrophils (%) (Auto) 81 H 42-75 % Lymphocytes (%) (Auto) 8 L 12-44 % Monocytes (%) (Auto) 8 0-12 % Eosinophils (%) (Auto) 3 0-10 % Basophils (%) (Auto) 0 0-10 % Neutrophils # (Auto) 12.1 H 1.8-7.8 X 10^3 Lymphocytes # (Auto) 1.2 1.0-4.0 X 10^3 Monocytes # (Auto) 1.2 H 0.0-1.0 X 10^3 Eosinophils # (Auto) 0.4 H 0.0-0.3 10^3/uL Basophils # (Auto) 0.0 0.0-0.1 10^3/uL Neutrophils % (Manual) 76 % Lymphocytes % (Manual) 5 % Monocytes % (Manual) 2 % Eosinophils % (Manual) 3 % Basophils % (Manual) 2 % Band Neutrophils 12 % Blood Morphology Comment NORMAL Prothrombin Time 15.3 H 12.2-14.7 SEC INR Comment 1.2 0.8-1.4 Activated Partial Thromboplast Time 41 H 24-35 SEC Urine Color YELLOW Urine Clarity VERY CLOUDY H Urine pH 9 5-9 Urine Specific [place] 1.015 L 1.016-1.022 Urine Protein 3+ H NEGATIVE Urine Glucose (UA) NEGATIVE NEGATIVE Urine Ketones NEGATIVE NEGATIVE Urine Nitrite POSITIVE H NEGATIVE Urine Bilirubin NEGATIVE NEGATIVE Urine Urobilinogen NORMAL NORMAL MG/DL Urine Leukocyte Esterase 3+ H NEGATIVE Urine RBC (Auto) 5+ H NEGATIVE Urine RBC 10-25 H /HPF Urine WBC 25-50 H /HPF Urine Crystals NONE /LPF Urine Bacteria FEW H /HPF Urine Casts NONE /LPF Urine Mucus NEGATIVE /LPF Urine Culture Indicated YES Sodium Level 136 135-145 MMOL/L Potassium Level 4.1 3.6-5.0 MMOL/L Chloride Level 103 98-107 MMOL/L Carbon Dioxide Level 26 21-32 MMOL/L Anion Gap 7 5-14 MMOL/L Blood Urea Nitrogen 15 7-18 MG/DL Creatinine 1.15 0.60-1.30 MG/DL Estimat Glomerular Filtration Rate > 60 BUN/Creatinine Ratio 13 Glucose Level 132 H 70-105 MG/DL Lactic Acid Level 0.77 0.50-2.00 MMOL/L Calcium Level 8.6 8.5-10.1 MG/DL Total Bilirubin 0.5 0.1-1.0 MG/DL Aspartate Amino Transf (AST/SGOT) 14 5-34 U/L Alanine Aminotransferase (ALT/SGPT) 18 0-55 U/L Alkaline Phosphatase 82 40-136 U/L Total Protein 6.5 6.4-8.2 G/DL Albumin 3.3 3.2-4.5 G/DL My Orders Orders - JALEEL MILLS DO Cbc With Automated Diff (05/23/16 22:14) Comprehensive Metabolic Panel (05/23/16 22:14) Lactic Acid Analyzer (05/23/16 22:14) Protime With Inr (05/23/16 22:14) Partial Thromboplastin Time (05/23/16 22:14) Ua Culture If Indicated (05/23/16 22:14) Blood Culture (05/23/16 22:14) Influenza A And B Antigens (05/23/16 22:14) Chest 1 View, Ap/Pa Only (05/23/16 22:14) Manual Differential (05/23/16 22:20) Urine Culture (05/23/16 22:20) Piperacillin Sodium/Tazobactam (Zosyn Vi (05/23/16 23:00) Ns Iv 1000 Ml (Sodium Chloride 0.9%) (05/24/16 00:00) Levofloxacin 750 Mg/150 Ml Iv (Levaquin (05/24/16 00:00) Medications Given in ED Current Medications Medications Dose Ordered Sig/Alex Route Start Time Stop Time Status Last Admin Dose Admin Piperacillin Sod/ Tazobactam Sod 4.5 gm/Sodium Chloride 100 ml @ 200 mls/hr ONCE ONCE IV 05/23/16 23:00 05/23/16 23:29 DC 05/23/16 23:07 200 MLS/HR Vital Signs/I&O Vital Sign - Last 12Hours 05/23/16 22:08 Temp 100.6 Pulse 75 Resp 22 B/P (MAP) 134/63 Pulse Ox 93 Intake and Output 05/24/16 00:00 Intake Total 100 ml Balance 100 ml Blood Pressure Mean: 86 Diagnostic Imaging Diagonstic Imaging: Xray Plain Films/CT/US/NM/MRI: chest (? RLL/basilar infiltrate/effusion) Departure Communication Time/Spoke to Admitting Phy: 00:05 Communication Spoke c/ Dr. Aburto and she is unable to accept the patient as an admission secondary to a family emergency. Spoke c/ Dr. Palmer who graciously accepted the patient for admission for Dr. Aburto. Will cover both the patient's lungs and tract antibiotic mccartney @ this point. Cultures are pending. Impression Impression: Primary Impression: Fever Additional Impressions: Weakness generalized UTI (urinary tract infection) Neutrophilic leukocytosis ? RLL infiltrate Disposition: ADMITTED INPATIENT Condition: Stable Decision to Admit Reason: Admit from ER (General) Decision to Admit/Date: May 24, 2016 Time/Decision to Admit Time: 00:05 Departure-Patient Inst. Referrals: FEDE ABURTO MD (PCP/Family) Primary Care Physician JALEEL MILLS DO May 23, 2016 22:14
[2016-05-23 22:33] LABS: BILIRUBIN,URINE NEGATIVE (NEGATIVE); KETONES,URINE NEGATIVE (NEGATIVE); LEUKOCYTE ESTERASE ,URINE 3+ (NEGATIVE); NITRITE,URINE POSITIVE (NEGATIVE); PH,URINE 9 (5-9); PROTEIN,URINE 3+ (NEGATIVE); UROBILINOGEN,URINE NORMAL (NORMAL)
[2016-05-23 22:34] LABS: BASOPHILS % (AUTO) 0 % (0-10); EOSINOPHILS # (AUTO) 0.4 10^3/uL (0.0-0.3); EOSINOPHILS % (AUTO) 3 % (0-10); LYMPHOCYTES # (AUTO) 1.2 X 10^3 (1.0-4.0); LYMPHOCYTES % (AUTO) 8 % (12-44); MEAN CORPUSCULAR HEMOGLOBIN 31 PG (25-34); MEAN CORPUSCULAR HGB CONC 33 G/DL (32-36); MEAN CORPUSCULAR VOLUME 94 FL (80-99); MEAN PLATELET VOLUME 8.9 FL (7.4-10.4); MONOCYTES # (AUTO) 1.2 X 10^3 (0.0-1.0); MONOCYTES % (AUTO) 8 % (0-12); NEUTROPHILS # (AUTO) 12.1 X 10^3 (1.8-7.8); NEUTROPHILS % (AUTO) 81 % (42-75); PLATELET COUNT 366 10^3/uL (130-400); RED BLOOD COUNT 2.93 10^6/uL (4.35-5.85); RED CELL DISTRIBUTION WIDTH 15.3 % (10.0-14.5); WHITE BLOOD COUNT 14.9 10^3/uL (4.3-11.0)
[2016-05-23 22:37] LABS: WBC,URINE 25-50 /HPF
[2016-05-23 22:47] LABS: INR 1.2 (0.8-1.4); PROTHROMBIN TIME PATIENT 15.3 SEC (12.2-14.7)
[2016-05-23 22:50] LABS: BAND NEUTROPHILS 12 %; NEUTROPHILS % (MANUAL) 76 %
[2016-05-23 22:51] LABS: BASOPHILS % (MANUAL) 2 %; EOSINOPHILS % (MANUAL) 3 %; LYMPHOCYTES % (MANUAL) 5 %
[2016-05-23 23:00] LABS: ALANINE AMINOTRANSFERASE 18 U/L (0-55); ALBUMIN 3.3 G/DL (3.2-4.5); ANION GAP 7 MMOL/L (5-14); ASPARTATE AMINO TRANSFERASE 14 U/L (5-34); BILIRUBIN,TOTAL 0.5 MG/DL (0.1-1.0); BLOOD UREA NITROGEN 15 MG/DL (7-18); BUN/CREATININE RATIO 13; CALCIUM 8.6 MG/DL (8.5-10.1); CARBON DIOXIDE 26 MMOL/L (21-32); CHLORIDE 103 MMOL/L (98-107); CREATININE SERUM 1.15 MG/DL (0.60-1.30); GFR ESTIMATED > 60; GLUCOSE 132 MG/DL (70-105); POTASSIUM 4.1 MMOL/L (3.6-5.0); SODIUM 136 MMOL/L (135-145); TOTAL PROTEIN 6.5 G/DL (6.4-8.2)
[2016-05-23] MEDS ORDERED: PIPERACILLIN SODIUM/TAZOBACTAM 4.5 GM in NS (IVPB) 100 ML IV ONE (23:00)
[2016-05-24] MEDS ORDERED: LEVOFLOXACIN 750 MG/150 ML IV 150 ML IV ONE
[2016-05-24] MEDS: NS IV 1000 ML 1,000 ML IV SCH ×3 (00:29→20:14)
[2016-05-24] MEDS ORDERED: RT-ALBUTEROL/IPRATROPIUM 3 ML (DUONEB) VIAL INH PRN (03:00)
[2016-05-24 04:28] VITALS: BP 118/67
[2016-05-24] MEDS ORDERED: PIPERACILLIN/TAZOBACTAM 4.5 GM/NS100 ML IVPB IV ONE ×2 (06:00)
[2016-05-24] MEDS ORDERED: CATHETER FLUSH 10 ML SYR IV PRN (06:00)
[2016-05-24] MEDS: CATHETER FLUSH 10 ML SYR IV SCH ×3 (06:00→23:50)
--- NOTE | 2016-05-24 07:45 | History & Physicial ---
History of Present Illness History of Present Illness Reason for visit/HPI fever and severe weakness. Family worried about sepsis. Patient had colonoscopy 2 weeks ago and having trouble with bowel movements. Patient running an elevated temperature of 101.9. Patient had colonoscopy done at [facility] in [place]. 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 Patient stated he was unable to get out of bed was so weak. Patient taken to the emergency room by ambulance. Patient sore all over. Previous surgeries radical prostatectomy. 5 back surgeries. Triple bypass. Many colonoscopies. Family history mother at age 92. Father at age 52 of a heart attack. Denies asthma TB diabetes lung disease cancer Date of Admission May 24, 2016 at 00:32 I consulted on this patient on 05/24/16 07:40 Attending Physician Amilcar Good DO Admitting Physician Darleen Aburto MD Consult Allergies and Home Medications Allergies Uncoded Allergies: SURGICAL TAPE (Adverse Reaction, Intermediate, IRRITATES SKIN, 08/16/10) Home Medications Amlodipine Besylate 10 Mg Tablet, 10 MG PO DAILY, (Reported) Carvedilol 12.5 Mg Tablet, 12.5 MG PO BID, (Reported) Clopidogrel Bisulfate 75 Mg Tab, 75 MG PO DAILY, (Reported) Colesevelam Hcl 3.75 Gm Powd.pack, 3.75 GM PO DAILY, (Reported) Diclofenac Sodium 75 Mg Tablet.dr, 75 MG PO BID, (Reported) Diphenhydramine Hcl 25 Mg Tablet, 25 MG PO HS, (Reported) Furosemide 40 Mg Tablet, 40 MG PO DAILY, (Reported) Gabapentin 300 Mg Capsule, 600 MG PO BID, (Reported) TAKES 2 (300MG) CAPSULES Hydrochlorothiazide 25 Mg Tablet, 25 MG PO DAILY, (Reported) Lisinopril 40 Mg Tablet, 40 MG PO DAILY, (Reported) Melatonin/Pyridoxine Hcl (B6) 1 Each Tablet, 5 MG PO HS, (Reported) Multivitamin 1 Each Tablet, 1 TAB PO DAILY, (Reported) [place] 3 Polyunsat Fatty Acids 1,000 Mg Cap, 1,000 MG PO BID, (Reported) Oxycodone Hcl 5 Mg Tablet, 20 MG PO DAILY, (Reported) TAKES 4 (5MG) TABLETS Pantoprazole Sod 40 Mg Tab, 40 MG PO HS, (Reported) Polyethylene Glycol 17 Gm Pack, 17 GM PO DAILY PRN for CONSTIPATION, (Reported) Potassium Chloride 20 Meq Tablet.er, 20 MEQ PO HS, (Reported) Terazosin Hcl 2 Mg Cap, 2 MG PO DAILY, (Reported) Venlafaxine Hcl 75 Mg Cap.sr.24h, 75 MG PO DAILY, (Reported) TAKES ALONG WITH VENLAFAXINE ER 150MG Venlafaxine Hcl 150 Mg Tab.osm.24, 150 MG PO DAILY, (Reported) TAKES ALONG WITH VENLAFAXINE ER 75MG Vitamin D 400 Iu Tab, 400 UNIT PO DAILY, (Reported) [Aspirin] 81 MG TABEC, 81 MG PO DAILY, #100 Prescribed by: KIMBERLI BARRETT on 12/12/13 0809 Past Nrmfvce-Alnzfm-Qipxux Hx Patient Social History Employed/Student: unemployed Alcohol Use: Denies Use Recreational Drug Use: No Smoking Status: Former Smoker Former smoker/When Quit: Dec 11, 1988 Type Used: Cigarettes, Smokeless Tobacco Physical Abuse Screen: No Sexual Abuse: No Recent Foreign Travel: No Contact w/other who traveled: No Recent Hopitalizations: Yes Recent Infectious Disease Expo: No Immunizations Up To Date Date of Pneumonia Vaccine: Jul 24, 2011 Date of Influenza Vaccine: Dec 25, 2013 Seasonal Allergies Seasonal Allergies: No Surgeries HX Surgeries: Yes (SURG TO RESOLVE URINARY INC, TURP, NECK, colostomy) Surgeries: Abdominal, Adenoidectomy, Appendectomy, Bladder Surgery, CABG, Prostatectomy, Tonsillectomy, Urinary Diversion Respiratory Hx Respiratory Disorders: Yes Cardiovascular Hx Cardiovascular Disorders: Yes Cardiac Disorders: Coronary Artery Disease, Heart Murmur, High Cholesterol, Hypertension Neurological Hx Neurological Disorders: 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) Neurological Disorders: Stroke Reproductive System Hx Reproductive Disorders: No Genitourinary Hx Genitourinary Disorders: Yes (suprapubic catheter) Genitourinary Disorders: Prostate Problems Gastrointestinal Hx Gastrointestinal Disorders: Yes (recent colostomy ) Gastrointestinal Disorders: Gastroesophageal Reflux, Diverticulosis Musculoskeletal Hx Musculoskeletal Disorders: Yes (uses walker) Musculoskeletal Disorders: Back Injury Endocrine Hx Endocrine Disorders: No HEENT HX ENT Disorders: No Cancer Hx Cancer: Yes Cancer: Prostate Psychosocial Hx Psychiatric Problems: No Integumentary Skin/Integumentary Disorders: Eczema Blood Transfusions Hx Blood Disorders: No Adverse Reaction to a Blood Tr: No Family Medical History Family Hx: Myocardial infarction 19 FATHER Constitutional: fever, malaise, weakness EENTM: no symptoms reported Respiratory: no symptoms reported Cardiovascular: other (coronary artery disease, hypertension, hyperlipidemia) Gastrointestinal: no symptoms reported, other (colostomy) Genitourinary: no symptoms reported Physical Exam Vital Signs Vital Sign - Last 12Hours 05/23/16 05/24/16 05/24/16 22:08 00:34 04:28 Temp 100.6 Pulse 75 Resp 22 B/P (MAP) 134/63 Pulse Ox 93 O2 Delivery NIV/CPAP O2 Flow Rate 2.00 Capillary Refill : Less Than 3 Seconds General Appearance: No Apparent Distress, WD/WN Eyes: Bilateral Eye Normal Inspection HEENT: TMs Normal, Normal ENT Inspection, Pharynx Normal Neck: Full Range of Motion, Normal Inspection, Non Tender, Supple Respiratory: Chest Non Tender, Lungs Clear, Normal Breath Sounds, No Accessory Muscle Use Cardiovascular: Regular Rate, Rhythm, No Murmur Gastrointestinal: Non Tender, Soft, Other (colostomy) Assessment/Plan Assessment and Plan febrile. Weakness. UTI. Pneumonia. Coronary artery disease. History of prostate cancer. Hyperlipidemia. Hypertension Problems: Clinical Quality Measures DVT/VTE Risk/Contraindication: Risk Factor Score Per Nursin RFS Level Per Nursing on Admit: 4+=Very High AMILCAR GOOD DO May 24, 2016 07:45
[2016-05-24 08:00] VITALS: BP 129/67
[2016-05-24 08:09] LABS: BASOPHILS % (AUTO) 0 % (0-10); EOSINOPHILS # (AUTO) 0.4 10^3/uL (0.0-0.3); EOSINOPHILS % (AUTO) 3 % (0-10); LYMPHOCYTES # (AUTO) 1.1 X 10^3 (1.0-4.0); LYMPHOCYTES % (AUTO) 8 % (12-44); MEAN CORPUSCULAR HEMOGLOBIN 31 PG (25-34); MEAN CORPUSCULAR HGB CONC 32 G/DL (32-36); MEAN CORPUSCULAR VOLUME 96 FL (80-99); MEAN PLATELET VOLUME 9.6 FL (7.4-10.4); MONOCYTES # (AUTO) 1.3 X 10^3 (0.0-1.0); MONOCYTES % (AUTO) 10 % (0-12); NEUTROPHILS # (AUTO) 10.4 X 10^3 (1.8-7.8); NEUTROPHILS % (AUTO) 79 % (42-75); PLATELET COUNT 358 10^3/uL (130-400); RED BLOOD COUNT 2.72 10^6/uL (4.35-5.85); RED CELL DISTRIBUTION WIDTH 15.6 % (10.0-14.5); WHITE BLOOD COUNT 13.2 10^3/uL (4.3-11.0)
[2016-05-24] MEDS ORDERED: PANT40TA3 PO (08:16)
[2016-05-24] MEDS ORDERED: POTA-51 PO (08:16)
[2016-05-24] MEDS ORDERED: CLOP75TA28 PO (08:16)
[2016-05-24] MEDS ORDERED: AMLO10TA2 PO (08:16)
[2016-05-24] MEDS ORDERED: LISI40TA PO (08:16)
[2016-05-24] MEDS ORDERED: GABA600T2 PO (08:16)
[2016-05-24] MEDS ORDERED: OXYC5TAB71 PO (08:16)
[2016-05-24] MEDS ORDERED: FURO40TA4 PO (08:16)
[2016-05-24] MEDS ORDERED: CLON0.1T PO (08:16)
[2016-05-24] MEDS ORDERED: CARV12.53 PO (08:16)
[2016-05-24] MEDS ORDERED: VENL75CA93 PO (08:16)
[2016-05-24] MEDS ORDERED: DICL75TA2 PO (08:16)
[2016-05-24] MEDS ORDERED: ASPI-983 PO (08:27)
[2016-05-24 08:30] LABS: ANION GAP 6 MMOL/L (5-14); BLOOD UREA NITROGEN 14 MG/DL (7-18); BUN/CREATININE RATIO 13; CALCIUM 8.4 MG/DL (8.5-10.1); CARBON DIOXIDE 27 MMOL/L (21-32); CHLORIDE 106 MMOL/L (98-107); CREATININE SERUM 1.12 MG/DL (0.60-1.30); GFR ESTIMATED > 60; GLUCOSE 113 MG/DL (70-105); POTASSIUM 4.3 MMOL/L (3.6-5.0); SODIUM 139 MMOL/L (135-145)
--- NOTE | 2016-05-24 08:32 | Diagnostic Imaging Report ---
Portable erect AP chest at 10:28 PM. INDICATION: Fever. The heart is mildly enlarged but stable when compared to 12/11/2013. The sternotomy wires and surgical clips noted previously are again visualized and no different. The aortic knob is prominent but also stable when compared to the previous exam. The previous study did show chronic changes involving the right lung base. On this study there are still coarse interstitial densities in this region as well as blunting of the right costophrenic angle. The lungs are otherwise clear. There is no sign of failure, pneumonia, or of a pleural effusion. Mediastinum is not widened. The osseous structures are intact. IMPRESSION: There is mild cardiomegaly, evidence of prior cardiac surgery, and chronic pulmonary disease. There is no acute abnormality identified, however. Dictated by: Dictated on workstation # [id number]
[2016-05-24] MEDS ORDERED: PRALUENT SQ (08:41)
[2016-05-24] MEDS: ETODOLAC 300 MG (LODINE) CAP PO SCH (10:13)
[2016-05-24] MEDS: amLODIPine 10 MG (NORVASC) TAB PO SCH (10:13)
[2016-05-24] MEDS: lisINopril 20 MG (ZESTRIL) TAB PO SCH (10:13)
[2016-05-24] MEDS: cloNIDine 0.1 MG (CATAPRES) TAB PO SCH ×2 (10:14→20:08)
[2016-05-24] MEDS: VENlafaxine XR 75 MG (EFFEXOR XR) CAP PO SCH (10:14)
[2016-05-24] MEDS: CLOPIDOGREL 75 MG (PLAVIX) TABLET PO SCH (10:14)
[2016-05-24] MEDS: PANTOPRAZOLE 40 MG (PROTONIX) TAB PO SCH (10:14)
[2016-05-24] MEDS: FUROSEMIDE 40 MG (LASIX) TAB PO SCH (10:14)
[2016-05-24] MEDS: CARVEDILOL 12.5 MG (COREG) TABLET PO SCH ×2 (10:14→20:08)
[2016-05-24] MEDS: VITAMIN D3 400 UNITS (CHOLECALCIFEROL) TABLET PO SCH ×2 (10:14→20:08)
[2016-05-24] MEDS: GABAPENTIN 600 MG (NEURONTIN) TAB PO SCH ×2 (10:30→20:08)
[2016-05-24] MEDS: MULTIVIT W/MINERALS TAB (THERAGRAN M) PO SCH (10:30)
[2016-05-24] MEDS: RT-ALBUTEROL/IPRATROPIUM 3 ML (DUONEB) VIAL INH SCH ×3 (10:32→19:16)
[2016-05-24 12:00] VITALS: BP 104/61
[2016-05-24] MEDS: PIPERACILLIN/TAZOBACTAM 4.5 GM/NS100 ML IVPB IV SCH ×4 (13:56→20:08)
[2016-05-24 16:00] VITALS: BP 104/58
[2016-05-24] MEDS: OMEGA 3 (FISH OIL) 1000 MG CAP PO SCH (16:49)
[2016-05-24] MEDS: POLYETHYLENE GLYCOL 17 GM (MIRALAX) PACK PO PRN (18:16)
[2016-05-24] MEDS: KCL 20 MEQ TAB (K-DUR) PO SCH (20:08)
[2016-05-24] MEDS: MELATONIN 3 MG TABLET PO SCH (20:08)
[2016-05-24] MEDS: ASPIRIN E.C. 81 MG (ECOTRIN) TAB PO SCH (20:08)
[2016-05-24 20:10] VITALS: BP 113/65
[2016-05-25] VITALS (12 sets, daily range): BP systolic 108–156; BP diastolic 52–79
[2016-05-25] MEDS ORDERED: LEVOFLOXACIN 750 MG/D5W 150 ML PRE-MIX IV SCH
[2016-05-25] MEDS: PIPERACILLIN/TAZOBACTAM 4.5 GM/NS100 ML IVPB IV SCH ×2 (03:21)
[2016-05-25 05:01] LABS: BASOPHILS % (AUTO) 0 % (0-10); EOSINOPHILS # (AUTO) 0.5 10^3/uL (0.0-0.3); EOSINOPHILS % (AUTO) 5 % (0-10); LYMPHOCYTES # (AUTO) 1.1 X 10^3 (1.0-4.0); LYMPHOCYTES % (AUTO) 12 % (12-44); MEAN CORPUSCULAR HEMOGLOBIN 30 PG (25-34); MEAN CORPUSCULAR HGB CONC 32 G/DL (32-36); MEAN CORPUSCULAR VOLUME 95 FL (80-99); MEAN PLATELET VOLUME 9.3 FL (7.4-10.4); MONOCYTES # (AUTO) 0.9 X 10^3 (0.0-1.0); MONOCYTES % (AUTO) 9 % (0-12); NEUTROPHILS # (AUTO) 6.8 X 10^3 (1.8-7.8); NEUTROPHILS % (AUTO) 74 % (42-75); PLATELET COUNT 324 10^3/uL (130-400); RED BLOOD COUNT 2.63 10^6/uL (4.35-5.85); RED CELL DISTRIBUTION WIDTH 15.4 % (10.0-14.5); WHITE BLOOD COUNT 9.3 10^3/uL (4.3-11.0)
[2016-05-25 05:43] LABS: ALANINE AMINOTRANSFERASE 22 U/L (0-55); ALBUMIN 2.9 G/DL (3.2-4.5); ANION GAP 8 MMOL/L (5-14); ASPARTATE AMINO TRANSFERASE 17 U/L (5-34); BILIRUBIN,TOTAL 0.4 MG/DL (0.1-1.0); BLOOD UREA NITROGEN 12 MG/DL (7-18); BUN/CREATININE RATIO 11; CALCIUM 8.2 MG/DL (8.5-10.1); CARBON DIOXIDE 23 MMOL/L (21-32); CHLORIDE 108 MMOL/L (98-107); CREATININE SERUM 1.12 MG/DL (0.60-1.30); GFR ESTIMATED > 60; GLUCOSE 122 MG/DL (70-105); POTASSIUM 4.3 MMOL/L (3.6-5.0); SODIUM 139 MMOL/L (135-145)
[2016-05-25] MEDS: CATHETER FLUSH 10 ML SYR IV SCH ×3 (06:00→22:00)
[2016-05-25] MEDS: OMEGA 3 (FISH OIL) 1000 MG CAP PO SCH ×2 (06:25→16:04)
[2016-05-25] MEDS: RT-ALBUTEROL/IPRATROPIUM 3 ML (DUONEB) VIAL INH SCH ×3 (07:39→19:10)
--- NOTE | 2016-05-25 08:40 | Progress Note (SOAP) ---
Subjective Subjective/Events-last exam PT REPORTS THAT HE IS FEELING WEAK TODAY - HE REPORTS THAT HE IS SOMEWHAT DIZZY. HE STATES THAT HE IS NOT FEELING WELL ENOUGH TO GO HOME TODAY. Review of Systems General: Fatigue HEENT: No Head Aches Pulmonary: Dyspnea, No Cough Cardiovascular: No: Chest Pain Gastrointestinal: No: Abdominal Pain, Nausea Genitourinary: No Dysuria Neurological: Weakness, No: Confusion Objective Exam Vital Signs Date Time Temp Pulse Resp B/P (MAP) Pulse Ox O2 Delivery O2 Flow Rate FiO2 05/25/16 04:00 98.7 63 20 131/62 96 NIV/CPAP 05/25/16 00:00 99.4 67 18 136/72 97 NIV/CPAP 05/24/16 21:00 Nasal Cannula 1.00 05/24/16 20:10 96.6 63 16 113/65 97 Nasal Cannula 2.00 05/24/16 19:17 93 05/24/16 16:00 96.9 59 16 104/58 98 Nasal Cannula 2.00 05/24/16 15:42 96 05/24/16 12:00 97.1 60 104/61 95 Nasal Cannula 2.00 05/24/16 10:32 92 05/24/16 09:00 2.00 I & O 05/25/16 07:00 Intake Total 3330 ml Output Total 3025 ml Balance 305 ml Capillary Refill : Less Than 3 SecondsLess Than 3 Seconds General Appearance: No Apparent Distress, WD/WN HEENT: PERRL/EOMI, Pharynx Normal Neck: Full Range of Motion, Supple Respiratory: Chest Non Tender, Lungs Clear, Normal Breath Sounds, No Accessory Muscle Use Cardiovascular: Regular Rate, Rhythm Gastrointestinal: normal bowel sounds, non tender, soft, no organomegaly, no pulsatile mass Extremity: Normal Capillary Refill, No Calf Tenderness, No Pedal Edema Neurologic/Psychiatric: Alert, Oriented x3, Normal Mood/Affect Skin: Warm/Dry Lymphatic: No Adenopathy Results Lab Laboratory Tests 05/25/16 04:45: White Blood Count 9.3, Red Blood Count 2.63L, Hemoglobin 8.0L, Hematocrit 25L, Mean Corpuscular Volume 95, Mean Corpuscular Hemoglobin 30, Mean Corpuscular Hemoglobin Concent 32, Red Cell Distribution Width 15.4H, Platelet Count 324, Mean Platelet Volume 9.3, Neutrophils (%) (Auto) 74, Lymphocytes (%) (Auto) 12, Monocytes (%) (Auto) 9, Eosinophils (%) (Auto) 5, Basophils (%) (Auto) 0, Neutrophils # (Auto) 6.8, Lymphocytes # (Auto) 1.1, Monocytes # (Auto) 0.9, Eosinophils # (Auto) 0.5H, Basophils # (Auto) 0.0, Sodium Level 139, Potassium Level 4.3, Chloride Level 108H, Carbon Dioxide Level 23, Anion Gap 8, Blood Urea Nitrogen 12, Creatinine 1.12, Estimat Glomerular Filtration Rate > 60, BUN/ Creatinine Ratio 11, Glucose Level 122H, Calcium Level 8.2L, Total Bilirubin 0.4 , Aspartate Amino Transf (AST/SGOT) 17, Alanine Aminotransferase (ALT/SGPT) 22, Alkaline Phosphatase 80, Total Protein 6.0L, Albumin 2.9L Microbiology 05/23/16 Blood Culture - Preliminary, Resulted No growth 05/23/16 Urine Culture - Final, Complete Proteus Mirabilis Assessment/Plan Assessment/Plan Assess & Plan/Chief Complaint ANEMIA WEAKNESS URINARY TRACT INFECTION HYPERTENSION ANEMIA - TRANSFUSE 2 UNITS TODAY - CHECK STOOL FOR BLOOD WEAKNESS - WILL WAIT ON BLOOD TRANSFUSION - MAY NEED THERAPY TOMORROW IF STILL QUITE WEAK. UTI - CHANGE FROM LEVAQUIN AND ZOSYN TO ROCEPHIN. POSSIBLE PNEUMONIA - NEGATIVE ON CHEST XRAY - REPEAT TODAY - PT SOUNDED CLEAR - STOP ZOSYN AND LEVAQUIN. HTN - RESTART HOME MEDS Clinical Quality Measures DVT/VTE Risk/Contraindication: Risk Factor Score Per Nursin RFS Level Per Nursing on Admit: 4+=Very High Contraindications-Pharm: Other *list below* FEDE BUTLER MD May 25, 2016 08:40
[2016-05-25] MEDS ORDERED: NON-FORMULARY MEDICATION 1 EA EA (Oxycodone HCl 20 MG) PO SCH (09:00)
[2016-05-25] MEDS ORDERED: NS IV 500 ML 500 ML IV SCH (09:25)
[2016-05-25] MEDS ORDERED: diphenhydrAMINE 50 MG/ML INJ (BENADRYL) IVP PRN (09:30)
[2016-05-25] MEDS ORDERED: FUROSEMIDE 40 MG/4 ML INJ (LASIX) IVP NR (09:42)
[2016-05-25] MEDS: cefTRIAXone INJECTION 1,000 MG in NS (IVPB) 50 ML IV SCH (10:01)
[2016-05-25] MEDS: NS IV 1000 ML 1,000 ML IV SCH ×2 (10:01→21:00)
[2016-05-25] MEDS: cloNIDine 0.1 MG (CATAPRES) TAB PO SCH ×2 (10:02→20:57)
[2016-05-25] MEDS: MULTIVIT W/MINERALS TAB (THERAGRAN M) PO SCH (10:02)
[2016-05-25] MEDS: VITAMIN D3 400 UNITS (CHOLECALCIFEROL) TABLET PO SCH ×2 (10:02→21:00)
[2016-05-25] MEDS: GABAPENTIN 600 MG (NEURONTIN) TAB PO SCH ×2 (10:02→20:57)
[2016-05-25] MEDS: amLODIPine 10 MG (NORVASC) TAB PO SCH (10:03)
[2016-05-25] MEDS: CLOPIDOGREL 75 MG (PLAVIX) TABLET PO SCH (10:03)
[2016-05-25] MEDS: VENlafaxine XR 75 MG (EFFEXOR XR) CAP PO SCH (10:03)
[2016-05-25] MEDS: CARVEDILOL 12.5 MG (COREG) TABLET PO SCH ×2 (10:03→20:56)
[2016-05-25] MEDS: PANTOPRAZOLE 40 MG (PROTONIX) TAB PO SCH (10:03)
[2016-05-25] MEDS: FUROSEMIDE 40 MG (LASIX) TAB PO SCH (10:04)
[2016-05-25] MEDS: ETODOLAC 300 MG (LODINE) CAP PO SCH ×2 (10:07→20:57)
[2016-05-25] MEDS: lisINopril 20 MG (ZESTRIL) TAB PO SCH (10:08)
--- NOTE | 2016-05-25 10:13 | Physician Query ---
PQ-Link Infection to Dev/Proc Admission/Discharge Admission Date: May 24, 2016 at 00:32 Discharge Date: The medical record reflects the following clinical scenario: History/Risk Factors: UTI and Suprapubic Catheter Clinical Findings: Urine Specific Bailey 1.015, Urine Protein 3+, Urine Culture showing >100,000/ ML Proteus Mirabilis Treatment: Started on Levaquin and Zosyn and changed to Rocephin. Question: Can you specify if the UTI is due to/associated with the patient's suprapubic catheter? Please document a response below. PHYSICIAN RESPONSE Specify if infection: Yes,due to/associated with device Please remember a lack of response to the above will prompt a phone page by [facility]/ coding staff. In responding to this query, please exercise your independent professional judgment. The purpose of this communication is to more accurately reflect the complexity of your patients condition. The fact that a question is asked does not imply that any particular answer is desired or expected. Thank you for your timely response to this clarification. Requestors name: Cindy Harrell [facility] Phone # ext [phone] or [phone] THIS PHYSICIAN QUERY FORM IS A PERMANENT PART OF THE MEDICAL RECORD CINDY HARRELL May 25, 2016 10:13 FEDE BUTLER MD Jun 08, 2016 13:06
[2016-05-25] MEDS: LACTOBACILLUS Acidoph/Bulgar (LACTINEX/FLORANEX) TAB PO SCH ×2 (10:17→16:04)
[2016-05-25] MEDS ORDERED: diphenhydrAMINE 25 MG TAB (BENADRYL) PO ONE (12:15)
[2016-05-25] MEDS: ACETAMINOPHEN 325 MG TABLET/CAPLET (TYLENOL) PO PRN (12:28)
[2016-05-25] MEDS ORDERED: FUROSEMIDE 40 MG/4 ML INJ (LASIX) ONE (15:59)
[2016-05-25] MEDS: KCL 20 MEQ TAB (K-DUR) PO SCH (20:57)
[2016-05-25] MEDS: MELATONIN 3 MG TABLET PO SCH (20:57)
[2016-05-25] MEDS: ASPIRIN E.C. 81 MG (ECOTRIN) TAB PO SCH (20:57)
[2016-05-26] VITALS: BP 136/60
[2016-05-26 03:58] VITALS: BP 152/72
[2016-05-26] MEDS: CATHETER FLUSH 10 ML SYR IV SCH ×3 (06:00→20:45)
[2016-05-26] MEDS: LACTOBACILLUS Acidoph/Bulgar (LACTINEX/FLORANEX) TAB PO SCH ×3 (06:11→16:14)
[2016-05-26] MEDS: OMEGA 3 (FISH OIL) 1000 MG CAP PO SCH (06:11)
[2016-05-26 06:35] LABS: MEAN PLATELET VOLUME 9.3 FL (7.4-10.4); RED BLOOD COUNT 3.4 10^6/uL (4.35-5.85); RED CELL DISTRIBUTION WIDTH 17.7 % (10.0-14.5); WHITE BLOOD COUNT 6.8 10^3/uL (4.3-11.0)
[2016-05-26 06:52] LABS: ALANINE AMINOTRANSFERASE 22 U/L (0-55); ALBUMIN 3.1 G/DL (3.2-4.5); ANION GAP 9 MMOL/L (5-14); ASPARTATE AMINO TRANSFERASE 19 U/L (5-34); BILIRUBIN,TOTAL 0.4 MG/DL (0.1-1.0); BLOOD UREA NITROGEN 11 MG/DL (7-18); BUN/CREATININE RATIO 11; CALCIUM 8.6 MG/DL (8.5-10.1); CARBON DIOXIDE 25 MMOL/L (21-32); CHLORIDE 110 MMOL/L (98-107); CREATININE SERUM 1.01 MG/DL (0.60-1.30); GFR ESTIMATED > 60; GLUCOSE 116 MG/DL (70-105); POTASSIUM 3.7 MMOL/L (3.6-5.0); SODIUM 144 MMOL/L (135-145); TOTAL PROTEIN 6.4 G/DL (6.4-8.2)
[2016-05-26] MEDS: RT-ALBUTEROL/IPRATROPIUM 3 ML (DUONEB) VIAL INH SCH ×3 (07:15→18:54)
--- NOTE | 2016-05-26 07:19 | Diagnostic Imaging Report ---
PA and lateral chest at 9:18 AM. INDICATION: High fever. There is a better inspiratory effort on this study than noted on the prior exam of 05/23/2016. Allowing for this technical factor, the heart is stable in size. The sternotomy wires and surgical clips noted previously are again evident and no different. In the interval since the previous study, patchy areas of increased density have developed in both perihilar regions. These findings are suspicious for mild pneumonia/atelectasis. There is also now a new rounded area of increased density in the left infrahilar region. I suspect that this is a new focus of pneumonia/atelectasis as well. It would be unlikely that this is a mass lesion as the recent CT abdomen/pelvis exam of 05/15/2016, failed to show any sign of a solid mass in this portion of the left lung base. There is no pleural effusion identified. The mediastinum is not widened. The osseous structures are intact. IMPRESSION: The appearance of the chest has worsened since the prior study as patchy areas of pneumonia/atelectasis have developed in both perihilar regions. There also appears to be a new focus of pneumonia/atelectasis in the left retrocardiac region. A followup exam would be recommended for continued evaluation. Dictated by: Dictated on workstation # [id number]
[2016-05-26 08:00] VITALS: BP 170/74
--- NOTE | 2016-05-26 08:32 | Progress Note (SOAP) ---
Subjective Subjective/Events-last exam PT REPORTS FEELING FATIGUED, BETTER SINCE HIS TRANSFUSION. HE IS READY FOR HIS EGD THIS MORNING. Review of Systems General: Fatigue Pulmonary: Dyspnea, No Cough Cardiovascular: Edema, No: Chest Pain Gastrointestinal: No: Abdominal Pain, Nausea Neurological: Weakness, No: Confusion Objective Exam Vital Signs Date Time Temp Pulse Resp B/P (MAP) Pulse Ox O2 Delivery O2 Flow Rate FiO2 05/26/16 08:00 97.9 65 20 170/74 99 Nasal Cannula 2.00 05/26/16 07:15 95 2.00 05/26/16 03:58 97.5 68 12 152/72 96 NIV/CPAP 05/26/16 00:00 97.1 58 16 136/60 95 NIV/CPAP 05/25/16 20:55 Room Air 05/25/16 20:29 96.5 62 18 156/73 100 1.50 05/25/16 19:48 96.5 59 16 133/73 98 Nasal Cannula 2.00 05/25/16 19:11 97 2.00 05/25/16 17:35 63 18 147/79 98 1.50 05/25/16 17:12 96.6 58 18 134/73 99 2.00 05/25/16 16:00 96.0 60 20 133/74 97 Nasal Cannula 2.00 05/25/16 15:41 96.0 60 130/76 99 05/25/16 14:36 96 2.00 05/25/16 13:43 96.4 59 18 123/74 98 2.00 05/25/16 13:15 96.4 62 18 108/52 97 2.00 05/25/16 12:00 97.6 73 20 148/64 98 Nasal Cannula 2.00 I & O 05/26/16 07:00 Intake Total 5990 ml Output Total 9380 ml Balance -3390 ml Capillary Refill : Less Than 3 SecondsLess Than 3 Seconds General Appearance: No Apparent Distress, WD/WN HEENT: PERRL/EOMI, Pharynx Normal Neck: Full Range of Motion, Supple Respiratory: Chest Non Tender, Lungs Clear, Normal Breath Sounds Cardiovascular: Regular Rate, Rhythm Gastrointestinal: normal bowel sounds, non tender, soft Extremity: Normal Capillary Refill Neurologic/Psychiatric: Alert, Oriented x3, No Motor/Sensory Deficits, Normal Mood/Affect Skin: Warm/Dry Lymphatic: No Adenopathy Results Lab Laboratory Tests 05/25/16 12:40: Stool Occult Blood Immunoassay POSITIVEH 05/26/16 06:10: White Blood Count 6.8, Red Blood Count 3.40L, Hemoglobin 10.0#L, Hematocrit 31L , Mean Corpuscular Volume 92, Mean Corpuscular Hemoglobin 29, Mean Corpuscular Hemoglobin Concent 32, Red Cell Distribution Width 17.7H, Platelet Count 350, Mean Platelet Volume 9.3, Sodium Level 144, Potassium Level 3.7, Chloride Level 110H, Carbon Dioxide Level 25, Anion Gap 9, Blood Urea Nitrogen 11, Creatinine 1.01, Estimat Glomerular Filtration Rate > 60, BUN/Creatinine Ratio 11, Glucose Level 116H, Calcium Level 8.6, Total Bilirubin 0.4, Aspartate Amino Transf (AST/ SGOT) 19, Alanine Aminotransferase (ALT/SGPT) 22, Alkaline Phosphatase 90, Total Protein 6.4, Albumin 3.1L Microbiology 05/23/16 Blood Culture - Preliminary, Resulted No growth 05/23/16 Urine Culture - Final, Complete Proteus Mirabilis Assessment/Plan Assessment/Plan Assess & Plan/Chief Complaint ANEMIA WEAKNESS URINARY TRACT INFECTION HYPERTENSION ANEMIA - TRANSFUSED 2 UNITS - STOOL POSITIVE FOR BLOOD - HGB IMPROVED FROM TRANSFUSION WEAKNESS - MONITOR SYMPTOMS UTI - CONTINUE CURRENT ANTIBIOTICS POSSIBLE PNEUMONIA - NEGATIVE ON CHEST XRAY - HTN - RESTARTED HOME MEDS EDG TODAY Clinical Quality Measures DVT/VTE Risk/Contraindication: Risk Factor Score Per Nursin RFS Level Per Nursing on Admit: 4+=Very High Contraindications-Pharm: Other *list below* FEDE BUTLER MD May 26, 2016 08:32
[2016-05-26] MEDS: CLOPIDOGREL 75 MG (PLAVIX) TABLET PO SCH (09:24)
[2016-05-26] MEDS: FUROSEMIDE 40 MG (LASIX) TAB PO SCH (09:24)
[2016-05-26] MEDS: cloNIDine 0.1 MG (CATAPRES) TAB PO SCH ×2 (09:24→20:44)
[2016-05-26] MEDS: VENlafaxine XR 75 MG (EFFEXOR XR) CAP PO SCH (09:24)
[2016-05-26] MEDS: PANTOPRAZOLE 40 MG (PROTONIX) TAB PO SCH (09:24)
[2016-05-26] MEDS: GABAPENTIN 600 MG (NEURONTIN) TAB PO SCH ×2 (09:24→20:44)
[2016-05-26] MEDS: MULTIVIT W/MINERALS TAB (THERAGRAN M) PO SCH (09:24)
[2016-05-26] MEDS: CARVEDILOL 12.5 MG (COREG) TABLET PO SCH ×2 (09:24→20:43)
[2016-05-26] MEDS: amLODIPine 10 MG (NORVASC) TAB PO SCH (09:24)
[2016-05-26] MEDS: lisINopril 20 MG (ZESTRIL) TAB PO SCH (09:24)
[2016-05-26] MEDS: VITAMIN D3 400 UNITS (CHOLECALCIFEROL) TABLET PO SCH ×2 (09:27→20:44)
--- NOTE | 2016-05-26 09:29 | CONSULTATION REPORT ---
DATE OF CONSULTATION: ATTENDING PRIMARY CARE PHYSICIAN: Dr. Darleen Aburto. Mr. Pillo Cade is a 75-year-old male who was admitted on 05/23/2016 for weakness. This gentleman has an extensive past medical history. He has severe degenerative joint disease and has had multiple back surgeries. During this process, he developed cauda equina syndrome approximately 6 years ago. Before this, he also was found to have prostate cancer requiring a radical prostatectomy, as well as a suprapubic catheter placement. This gentleman had worsening stool incontinence and underwent an end colostomy at [facility] approximately 2 weeks ago. He states that he has felt increasingly weak over the past several days and was found to be anemic. Upon examination, the colostomy is functional with no obvious bleeding per colostomy; however, heme occult test was positive. Upon further questioning he reports he has had an issue with peptic ulcer disease, as well as gastroesophageal reflux disease. Approximately 6 years ago he did have an issue with sepsis he did undergo an EGD at that time was found to have an ulcer. He is also on anticoagulation with Plavix and aspirin. PAST MEDICAL HISTORY: 1. Degenerative joint disease. 2. Hypertension. 3. Hypercholesterolemia. 4. Coronary artery disease. 5. Cauda equina syndrome. 6. History of stroke. 7. Urine and stool incontinence. 8. Prostate cancer. 9. Gastroesophageal reflux disease. 10. Peptic ulcer disease. 11. Diverticulosis. 12. Eczema. PAST SURGERIES: 1. End colostomy 2 weeks ago/ 2. Back surgery x5. 3. Radical prostatectomy. 4. Suprapubic catheter placement. 5. Appendectomy. 6. Adenoidectomy. 7. Coronary artery bypass grafting. 8. Tonsillectomy. ALLERGIES: TAPE MEDICATIONS: 1. Amlodipine 10 mg daily. 2. Carvedilol 12.5 mg a b.i.d. 3. Plavix 75 mg daily. 4. Colesevelam 3.75 grams daily. 5. Diclofenac 75 mg daily. 6. Diphenhydramine 25 mg daily. 7. Furosemide 40 mg daily. 8. Gabapentin 300 mg daily. 9. Hydrochlorothiazide 25 mg daily. 10. Lisinopril 40 mg daily. 11. Melatonin daily. 12. Oxycodone 5 mg daily. 13. Prilosec 20 mg daily. 14. Potassium 20 mEq daily. 15. Terazosin 2 mg daily. 16. Venlafaxine 75 mg daily. 17. Aspirin 81 mg daily. SOCIAL HISTORY: Previous smoke. Negative alcohol. FAMILY HISTORY: Noncontributory. VITAL SIGNS: Temperature 96.5, blood pressure 133/73, pulse 59, respirations 16, pulse oximetry 98% on 2 liters nasal cannula. REVIEW OF SYSTEMS: This is a well-nourished male, currently in no acute distress. He is not experiencing shortness of breath or difficulty breathing. No chest pain, palpitations, diaphoresis. No nausea, vomiting, with a functional colostomy. No red blood per colostomy. No fever, chills, no recent inadvertent weight loss. PHYSICAL EXAMINATION: CHEST: Clear. HEART: Regular. EXTREMITIES: No lower extremity edema. Negative Randall sign. HEENT: No scleral icterus. No cervical lymphadenopathy. ABDOMEN: Soft, mild tenderness in the gonzales-incisional regions. Colostomy is functional and well perfused with no obvious bleeding. LABS: WBC 9.3, hemoglobin 8.0, hematocrit 25, platelets 324. ASSESSMENT AND PLAN: 75-year-old male with anemia. He had a recent end colostomy performed approximately 2 weeks ago for stool incontinence secondary to cauda equina syndrome. Since admission his hemoglobin did drop 1 gram. He was also found to have heme positive stools. He also does have a history of peptic ulcer disease and was found to have an ulcer on previous EGD approximately 6 weeks ago. He is also on anticoagulation with aspirin and Plavix. On this admission we will proceed with an EGD, as well as biopsies as appropriate. Job ID: [id number] Dictated Date: 05/25/2016 20:22:29 Job Training Specialist Date: 05/26/2016 09:13:27/arturo
[2016-05-26] MEDS: POLYETHYLENE GLYCOL 17 GM (MIRALAX) PACK PO PRN (09:33)
[2016-05-26] MEDS: cefTRIAXone INJECTION 1,000 MG in NS (IVPB) 50 ML IV SCH (09:37)
[2016-05-26] MEDS: NS IV 1000 ML 1,000 ML IV SCH (10:54)
[2016-05-26] MEDS ORDERED: IOHEXOL 350 MG/ML 100 ML (OMNIPAQUE 350) VIAL IV ONE (12:45)
[2016-05-26] MEDS ORDERED: CATHETER FLUSH 10 ML SYR IV PRN (12:45)
[2016-05-26] MEDS ORDERED: NS 100 ML (IVPB) BAG IV ONE (12:45)
--- NOTE | 2016-05-26 13:47 | Diagnostic Imaging Report ---
PROCEDURE: CT abdomen and pelvis with and without contrast. TECHNIQUE: Precontrast acquisitions were acquired through the abdomen and pelvis. Multiple contiguous axial images were obtained through the abdomen and pelvis after the administration of intravenous contrast. INDICATION: Abdominal fullness. 100 mL of Omnipaque 350 administered intravenously. COMPARISON: 05/15/2016. FINDINGS: The lung bases demonstrate scarring and subsegmental atelectasis. In the subxiphoid region there is a moderate-sized fat-containing hernia with abdominal wall defect measuring 3.0 x 3.6 cm in the transverse and craniocaudal dimensions. There is a left lower quadrant colostomy with adjacent edema with a small fluid collection measuring 2.8 x 2.2 x 1.6 cm. This could be a small seroma. There is a small supraumbilical fat-containing hernia seen with 1-cm caliber of the defect. This is located 7.5 cm above the umbilicus and slightly to the left. The liver, the gallbladder, the spleen, the adrenals, and the pancreas appear unremarkable. The abdominal aorta is normal in caliber. No significant free fluid or fluid collection in the peritoneal cavity is seen. There is no bowel obstruction. Moderate amount of fecal material is seen in the proximal colonic loops. There is a suprapubic catheter with a decompressed urinary bladder. Surgical clips are seen in the pelvis. There is evidence of prior back surgery with bone graft, a pulse generator, and multilevel laminectomy seen. Anterior and posterior fusion hardware is also present as well as large amount of gas related to vacuum disc at T12-L1 level. IMPRESSION: 1. Edema and small fluid collection, likely seroma, is seen adjacent to the left lower quadrant colostomy. 2. Supraumbilical fat-containing ventral hernias, one about 7.5 cm above the umbilicus and other larger one is in a subxiphoid location. Dictated by: Dictated on workstation # [id number]
[2016-05-26 16:35] VITALS: BP 131/74
--- NOTE | 2016-05-26 16:37 | Progress Note (SOAP) ---
Subjective Subjective/Events-last exam doing well. tolerating diet. functional end colostomy. Hb stable at 10 after 2units PRBC. Objective Exam Vital Signs Date Time Temp Pulse Resp B/P (MAP) Pulse Ox O2 Delivery O2 Flow Rate FiO2 05/26/16 15:02 Room Air 05/26/16 14:35 95 2.00 05/26/16 08:00 97.9 65 20 170/74 99 Nasal Cannula 2.00 05/26/16 07:15 95 2.00 05/26/16 03:58 97.5 68 12 152/72 96 NIV/CPAP 05/26/16 00:00 97.1 58 16 136/60 95 NIV/CPAP 05/25/16 20:55 Room Air 05/25/16 20:29 96.5 62 18 156/73 100 1.50 05/25/16 19:48 96.5 59 16 133/73 98 Nasal Cannula 2.00 05/25/16 19:11 97 2.00 05/25/16 17:35 63 18 147/79 98 1.50 05/25/16 17:12 96.6 58 18 134/73 99 2.00 I & O 05/26/16 07:00 Intake Total 5990 ml Output Total 9380 ml Balance -3390 ml Capillary Refill : Less Than 3 SecondsLess Than 3 Seconds General Appearance: No Apparent Distress HEENT: PERRL/EOMI Neck: Full Range of Motion Respiratory: Chest Non Tender Cardiovascular: Regular Rate, Rhythm Gastrointestinal: normal bowel sounds, soft Extremity: Normal Capillary Refill Neurologic/Psychiatric: Alert, Oriented x3 Skin: Normal Color Lymphatic: No Adenopathy Results Lab Laboratory Tests 05/26/16 06:10: White Blood Count 6.8, Red Blood Count 3.40L, Hemoglobin 10.0#L, Hematocrit 31L , Mean Corpuscular Volume 92, Mean Corpuscular Hemoglobin 29, Mean Corpuscular Hemoglobin Concent 32, Red Cell Distribution Width 17.7H, Platelet Count 350, Mean Platelet Volume 9.3, Sodium Level 144, Potassium Level 3.7, Chloride Level 110H, Carbon Dioxide Level 25, Anion Gap 9, Blood Urea Nitrogen 11, Creatinine 1.01, Estimat Glomerular Filtration Rate > 60, BUN/Creatinine Ratio 11, Glucose Level 116H, Calcium Level 8.6, Magnesium Level 2.0, Total Bilirubin 0.4, Aspartate Amino Transf (AST/SGOT) 19, Alanine Aminotransferase (ALT/SGPT) 22, Alkaline Phosphatase 90, Total Protein 6.4, Albumin 3.1L Microbiology 05/23/16 Blood Culture - Preliminary, Resulted No growth 05/23/16 Urine Culture - Final, Complete Proteus Mirabilis Assessment/Plan Assessment/Plan Assess & Plan/Chief Complaint doing well. no signs clinical bleed. hx PUD with anemia. continue protonix for now. EGD in am, if no bleed then ok for home per surg. Clinical Quality Measures DVT/VTE Risk/Contraindication: Risk Factor Score Per Nursin RFS Level Per Nursing on Admit: 4+=Very High Contraindications-Pharm: Other *list below* SHELBIE LAWSON MD May 26, 2016 16:37
[2016-05-26] MEDS: ASPIRIN E.C. 81 MG (ECOTRIN) TAB PO SCH (20:44)
[2016-05-26] MEDS: KCL 20 MEQ TAB (K-DUR) PO SCH (20:44)
[2016-05-26] MEDS: MELATONIN 3 MG TABLET PO SCH (20:44)
[2016-05-26] MEDS: ACETAMINOPHEN 325 MG TABLET/CAPLET (TYLENOL) PO PRN (20:44)
[2016-05-27] VITALS: BP 151/71
[2016-05-27] MEDS: NS IV 1000 ML 1,000 ML IV SCH (02:12)
[2016-05-27] MEDS: CATHETER FLUSH 10 ML SYR IV SCH (05:35)
[2016-05-27] MEDS: LACTOBACILLUS Acidoph/Bulgar (LACTINEX/FLORANEX) TAB PO SCH ×2 (05:35→15:26)
[2016-05-27 06:41] LABS: MEAN PLATELET VOLUME 9.2 FL (7.4-10.4); RED BLOOD COUNT 3.47 10^6/uL (4.35-5.85); RED CELL DISTRIBUTION WIDTH 16.9 % (10.0-14.5); WHITE BLOOD COUNT 6.8 10^3/uL (4.3-11.0)
[2016-05-27] MEDS: RT-ALBUTEROL/IPRATROPIUM 3 ML (DUONEB) VIAL INH SCH ×2 (07:05→13:39)
[2016-05-27 07:12] LABS: ALANINE AMINOTRANSFERASE 21 U/L (0-55); ALBUMIN 3.2 G/DL (3.2-4.5); ANION GAP 8 MMOL/L (5-14); ASPARTATE AMINO TRANSFERASE 19 U/L (5-34); BILIRUBIN,TOTAL 0.3 MG/DL (0.1-1.0); BLOOD UREA NITROGEN 11 MG/DL (7-18); BUN/CREATININE RATIO 11; CALCIUM 9.1 MG/DL (8.5-10.1); CARBON DIOXIDE 27 MMOL/L (21-32); CHLORIDE 105 MMOL/L (98-107); CREATININE SERUM 1.01 MG/DL (0.60-1.30); GFR ESTIMATED > 60; GLUCOSE 110 MG/DL (70-105); POTASSIUM 4.1 MMOL/L (3.6-5.0); SODIUM 140 MMOL/L (135-145); TOTAL PROTEIN 6.5 G/DL (6.4-8.2)
[2016-05-27 08:00] VITALS: BP 167/72
[2016-05-27] MEDS ORDERED: POLYETHYLENE GLYCOL 17 GM (MIRALAX) PACK PO NR (08:30)
[2016-05-27] MEDS ORDERED: fentaNYL INJECTION 100 MCG/2 ML AMP ONE ×2 (09:07→14:00)
[2016-05-27] MEDS: cefTRIAXone INJECTION 1,000 MG in NS (IVPB) 50 ML IV SCH (09:17)
[2016-05-27] MEDS ORDERED: IPRA3AMP INH (10:44)
[2016-05-27] MEDS ORDERED: NEBU-140 MC (10:44)
[2016-05-27] MEDS ORDERED: PANT40TA3 PO (10:44)
[2016-05-27] MEDS ORDERED: ACID1TAB PO (10:44)
--- NOTE | 2016-05-27 10:46 | Discharge Inst-Complex ---
PDI Med Rec & Follow Up Appt. New Medications: Nebulizer (Aeroneb Go Nebuliser) 1 Each Each 1 EACH UD for Dyspean, #1 USE WITH ALBUTEROL NEBULIZER MEDICATION NEEDED FOR SHORTNESS OF BREATH Ipratropium/Albuterol Sulfate (Iprat-Albut 0.5-3(2.5) mg/3 ml) 3 Ml Ampul.neb 3 ML INH RTQ4HR PRN for SHORTNESS OF BREATH for 30 Days, #120 INHALER 3 Refills L. Acidophilus/Bulgaricus (Floranex Tablet) 1 Each Tablet 1 TAB.CHEW PO AC for 30 Days, #120 TAB 1 Refill Changed Medications: Pantoprazole Sodium (Pantoprazole Sodium) 40 Mg Tablet.dr 40 MG PO BID for 30 Days, #60 TAB 6 Refills (Changed from: HS; Refills: ) Continued Medications: Amlodipine Besylate (Amlodipine Besylate) 10 Mg Tablet 10 MG PO DAILY Aspirin (Aspirin EC) 81 Mg Tablet.dr 81 MG PO HS, TAB Carvedilol (Carvedilol) 12.5 Mg Tablet 12.5 MG PO BID Clonidine HCl (Clonidine HCl) 0.1 Mg Tablet 0.1 MG PO BID Clopidogrel Bisulfate (Clopidogrel) 75 Mg Tablet 75 MG PO DAILY Diclofenac Sodium (Diclofenac Sodium) 75 Mg Tablet.dr 75 MG PO BID Furosemide (Furosemide) 40 Mg Tablet 40 MG PO DAILY Gabapentin (Gabapentin) 600 Mg Tablet 600 MG PO BID Lisinopril (Lisinopril) 40 Mg Tablet 40 MG PO DAILY Melatonin/Pyridoxine Hcl (B6) (Melatonin 5 Mg Tablet) 1 Each Tablet 5 MG PO HS, TAB Multivitamin (Multi Vitamin Daily) 1 Each Tablet 1 TAB PO DAILY [place] 3 Polyunsat Fatty Acids (Fish Oil) 1,000 Mg Cap 1000 MG PO BID Oxycodone HCl (Oxycodone HCl) 5 Mg Tablet 20 MG PO DAILY TAKES 4 (5 MG) TABLETS Polyethylene Glycol (Miralax 17 Gm Packet) 17 Gm Pack 17 GM PO DAILY PRN for CONSTIPATION Potassium Chloride (Potassium Chloride) 20 Meq Tablet.er 20 MEQ PO HS Venlafaxine HCl (Venlafaxine HCl ER) 75 Mg Cap.er.24h 225 MG PO DAILY Vitamin D (Vitamin D (Non-Formulary)) 400 Iu Tab 400 UNIT PO BID [Praluent Inj] () SQ EVERY 2 WEEKS Prescription: Transmitted to Pharmacy Activity, Diet and PDI Resume Normal Activity: Yes Diet After 24 Hours: Clear Liquid if Nauseous Drink 6-8 Glasses of Fluid/Day: Yes Driving Instructions: No Driving for 24 Hours Return to The Hospital For: ANY CONCERN FOR WORSENING SYMPTOMS,SHORTNESS OF BREATH WORSENING, OR DIZZINESS, CHEST PAIN, OR ANY CONCERN FOR LIFETHREATENING ILLNESS Symptoms to Reoprt to DrAmy: Appetite Changes, Swelling Increased, Bleeding Excessive, Constipation(Persistant), Fever Over 101 Degrees F, Pain/Pressure in Chest, Shortness of Breath For Problems or Questions: Contact Your Physician, Go to Emergency Room Infection Signs and Symptoms: Temperature Above 101 F FEDE BUTLER MD May 27, 2016 10:46
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
--- NOTE | 2016-05-27 11:01 | Diagnostic Imaging Report ---
PA and lateral views of the chest. INDICATION: Atelectasis. FINDINGS: When compared to the prior exam, there is slight improvement in bilateral perihilar patchy opacities. There is suggestion of background chronic interstitial thickening likely related to scarring. The lungs are hyperinflated. The heart size is mildly enlarged. There is no significant effusion or pneumothorax. Mediastinum and abdulaziz are unremarkable. Sternotomy wires are seen. IMPRESSION: Slight improvement in bilateral perihilar infiltrate or atelectasis with remaining likely chronic background interstitial thickening. Dictated by: Dictated on workstation # [id number]
--- NOTE | 2016-05-27 12:42 | Conscious Sedation/ASA ---
Conscious Sedation Pre-Proced Time Reviewed: 12:30 ASA Class: 3 Airway Mallampati Classification: ([place] appropriate class) I. II. III, IV Lungs Heart ASA score ASA 1: a normal healthy patient ASA 2: a patient with a mild systemic disease (mid diabetes, controlled hypertension, obesity ASA 3: a patient with a severe systemic disease that limits activity (angina , COPD, prior Myocardial infarction) ASA 4: a patient with an incapacitating disease that is a constant threat to life (CHF, renal failure) ASA 5: a moribund patient not expected to survive 24 hrs. (ruptured aneurysm) ASA 6: a declared brain patient whose organs are being harvested. For emergent operations, add the letter E after the classification Grade 3 Sedation Plan: Analgesia, Amnesia, Plan communicated to team members, Discussed options with patient/fam, Discussed risks with patient/fam Note The patient is an appropriate candidate to undergo the planned procedure, sedation, and anesthesia. The patient immediately re-assessed prior to indication. SHELBIE LAWSON MD May 27, 2016 12:42
--- NOTE | 2016-05-27 12:43 | Progress Note-Pre Operative ---
Pre-Operative Progress Note H&P Reviewed The H&P was reviewed, patient examined and no changes noted. Date H&P Reviewed: May 27, 2016 Time H&P Reviewed: 12:30 Pre-Operative Diagnosis: anemia, hx GERD SHELBIE LAWSON MD May 27, 2016 12:43
[2016-05-27] MEDS ORDERED: MIDAZOLAM 2 MG/2 ML (VERSED) VIAL ONE ×3 (14:00→14:01)
[2016-05-27] MEDS ORDERED: NS IV 500 ML 500 ML ONE (14:01)
[2016-05-27] MEDS ORDERED: HURRICAINE EXT TUBE (BENZOCAINE) ONE (14:01)
[2016-05-27] MEDS: fentaNYL INJECTION 100 MCG/2 ML AMP IVP PRN ×2 (14:15→14:19)
[2016-05-27] MEDS: MIDAZOLAM 2 MG/2 ML (VERSED) VIAL IVP PRN ×3 (14:17→14:25)
[2016-05-27] MEDS ORDERED: HURRICAINE EXT TUBE (BENZOCAINE) XX ONE (15:00)
[2016-05-27] MEDS ORDERED: NS IV 500 ML 500 ML IV SCH (15:00)
[2016-05-27] MEDS: cloNIDine 0.1 MG (CATAPRES) TAB PO SCH (15:25)
[2016-05-27] MEDS: lisINopril 20 MG (ZESTRIL) TAB PO SCH (15:25)
[2016-05-27] MEDS: MULTIVIT W/MINERALS TAB (THERAGRAN M) PO SCH (15:26)
[2016-05-27] MEDS: VITAMIN D3 400 UNITS (CHOLECALCIFEROL) TABLET PO SCH (15:26)
[2016-05-27] MEDS: FUROSEMIDE 40 MG (LASIX) TAB PO SCH (15:26)
[2016-05-27] MEDS: CARVEDILOL 12.5 MG (COREG) TABLET PO SCH (15:26)
[2016-05-27] MEDS: amLODIPine 10 MG (NORVASC) TAB PO SCH (15:26)
[2016-05-27] MEDS: GABAPENTIN 600 MG (NEURONTIN) TAB PO SCH (15:26)
[2016-05-27] MEDS: PANTOPRAZOLE 40 MG (PROTONIX) TAB PO SCH (15:26)
[2016-05-27] MEDS: VENlafaxine XR 75 MG (EFFEXOR XR) CAP PO SCH (15:27)
[2016-05-27] MEDS: CLOPIDOGREL 75 MG (PLAVIX) TABLET PO SCH (15:33)
--- NOTE | 2016-05-27 15:50 | Progress Note-Post Operative ---
Post-Operative Progess Note Surgeon (s)/Accounts Payable Assistant (s) Surgeon SHELBIE LAWSON MD Accounts Payable Assistant: none Pre-Operative Diagnosis anemia, hx GERD Post-Operative Diagnosis reflux esophagitis(class B), large HH(5cm), moderate gastritis. Post-Op Procedure Note Date of Procedure: May 27, 2016 Name of Procedure Performed: EGD with bx. Description of the Procedure: EGD with bx. Findings of the Procedure . Anesthesia Type CS Estimated blood loss (mL): minimal Specimen(s) collected/removed GE jxn, antrum SHELBIE LAWSON MD May 27, 2016 15:50
[2016-05-27 17:43] VITALS: BP 167/72
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
--- OUTSIDE RECORDS SUMMARY | 2016-06-26 07:12 | XMS REPORT | Continuity of Care Document ---
Author Author [facility] Organization [facility] Address Unknown Phone Unavailable Care Team Providers Care Tax Economist Name Role Phone Darleen Aburto PCP [phone] Source Comments Some departments are not documenting in the electronic medical record. If you do not see the information that you expected, contact Release of Information in the Health Information Management department at [phone] for further assistance in locating additional records.[facility] Active Allergies and Adverse Reactions Allergen [...] CODEINE SULFATE PO Take by mouth. Active metroNIDAZOLE (FLAGYL) Take 1 Tab by mouth three 06/04/19 Active 500 mg tablet times daily. 17 Active Problems Problem Noted Date Bladder stones 11/02/2015 Lumbar stenosis 10/15/2012 Chronic suprapubic catheter (HCC) 11/15/2010 Overview: Initially placed 11/15/2010; Dr. Douglas. 20 Fr SPT changed q 2-4 wks, indefinitely. L ast Assessment & Plan: Continue self SP cath changes q 2-4 wks prn. Recommend saline bladder irrigation q day. Recommend cysto in May 2017. Renal insufficiency 07/30/2010 Hx-TIA (transient ischemic attack) 07/30/2010 GABI (obstructive sleep apnea) 07/30/2010 Overview: Uses C-PAP. Chronic back pain Bladder neck contracture Overview: Recurrent BNC s/p multiple TUIBNC +/- Mitomycin C injection. Currently managed w/ chronic SP Tube, initially placed 11/15/2010; Dr. Douglas. L ast Assessment & Plan: See chronic SP catheter A&P note. CAD (coronary artery disease) Prostate cancer ([facility]) Overview: PSA (09/28/1996)=8.9 ng/mL. Radical retropubic prostatectomy (RRP) -- 12/23/1996; Angel Cordova MD. pT2 N0 Mx PSA (01/15/1998)=0.51 ng/mL. Salvage XRT ~ 1999. L[facility]H-agonist ~ 1999. L ast Assessment & Plan: PSA reviewed --> stable and slightly lower than prior results. He may consider restarting ADT ~ 4-5 ng/mL. Repeat PSA in 6 mo. Will call w/ result. RTC 1 yr w/ outside PSA ~ 1-2 wks prior or sooner prn. Post-traumatic bulbous urethral stricture Overview: Recurrent Urethral [...] Recent Encounters Date Type Specialty Providers Description 06/10/2016 Office Visit Urology Fred Austin PA-C Prostate cancer ( HCC) (Primary Dx); Chronic suprapubic catheter (HCC); Bladder neck contracture; Post-traumatic bulbous urethral stricture; IVA (stress urinary incontinence), male; History of tobacco use; Obesity (BMI 30-39.9) 04/20/2016 Orders Only Urology Fred Austin PA-C Prostate cancer ( HCC) (Primary Dx) Immunizations Name Dates Previously Given Next Due Pneumococcal Vaccine 10/16/2012 (23-[place] Adult) Social History Tobacco Use Types Packs/Day Years Used Date Former Smoker Cigarettes 1 20 Quit: 04/30/1989 Smokeless Tobacco: Never Used Alcohol Use Drinks/Week oz/Week Comments Yes rarely Last Filed Vital Signs Vital Sign Reading Time Taken Blood Pressure 138/56 06/10/2016 2:52 PM CDT Pulse 55 06/10/2016 2:52 PM CDT Temperature 36.9 C (98.5 F) 10/17/2012 8:00 AM CDT Respiratory Rate 16 05/06/2011 4:00 AM CDT Height 1.778 m (5' 10") 06/10/2016 2:52 PM CDT Weight 113.218 kg (249 lb 9.6 06/10/2016 2:52 PM CDT oz) Body Mass Index 35.81 06/10/2016 2:52 PM CDT Oxygen Saturation 98% 10/17/2012 8:00 AM CDT Plan of Care Health Maintenance Due Date Last Done Comments Physical (Comprehensive) 1945 Exam Pertussis Vaccine 1949 Tetanus Vaccine 12/25/1955 Shingles Vaccine 1998 Prevnar/Pneumovax (#2) 10/16/2013 10/16/2012 Influenza Vaccine 10/21/2016 Results from Last 3 Months Not on file
--- OUTSIDE RECORDS SUMMARY | 2016-06-26 07:13 | XMS REPORT | Continuity of Care Document ---
Author Author [facility] Organization [facility] Address Unknown Phone Unavailable Allergies Active Description [...] BARRETT MD Ot 414.01 CORONARY ATHEROSCLEROSIS OF [place] CORON 12/12/2013 KIMBERLI BARRETT MD Ot 414.02 [...] JUSTIN Quinteros Ot 786.09 01/20/2015 ADRIANA GALLO N[employer] PARK RANGER Ot K42.9 01/20/2015 ADRIANA GALLO [employer] RANGER Ot R10.9 02/06/2015 ADRIANA GALLO [employer] RANGER Ot E86.0 02/06/2015 ADRIANA GALLO [employer] RANGER Ot N39.0 02/10/2015 ADRIANA GALLO [employer] RANGER Ot K42.9 02/10/2015 ADRIANA GALLO [employer] RANGER Ot R10.9 08/11/2015 ADRIANA GALLO [employer] RANGER Ot E86.0 DEHYDRATION 08/28/2015 ADRIANA GALLO [employer] RANGER Ot E86.0 DEHYDRATION 03/03/2016 Ot 789.00 ABDOMINAL [...] NOS 03/03/2016 Ot 414.01 CORONARY ATHEROSCLEROSIS OF [place] CORON 03/03/2016 Ot 786.50 CHEST PAIN NOS [...] OCCLUSION W O CEREBRAL IN 03/03/2016 RENÉE DOLYE, UJJABURT Quinteros Ot 786.09 RESPIRATORY ABNORM NEC [...] DO Ot I25.10 ATHSCL HEART DISEASE OF [place] CORONARY 05/16/2016 JALEEL MILLS DO Ot J44.9 CHRONIC OBSTRUCTIVE PULMONARY DISEASE, U 05/16/2016 JALEEL MILLS DO Ot L76.32 POSTPROC HEMATOMA OF SKIN, SUBCU FOLLOWI 05/16/2016 JALEEL MILLS DO Ot R10.84 GENERALIZED ABDOMINAL PAIN 05/16/2016 JALEEL MILLS DO Ot Z79.02 [facility] (CURRENT) USE OF ANTITHROMBOTI 05/16/2016 JALEEL MILLS DO Ot Z79.899 OTHER [facility] (CURRENT) DRUG THERAPY 05/16/2016 JALEEL MILLS DO Ot Z87.891 PERSONAL HISTORY OF NICOTINE DEPENDENCE 05/16/2016 JALEEL MILLS DO Ot Z93.3 COLOSTOMY STATUS 05/16/2016 JALEEL MILLS DO Ot Z95.1 PRESENCE OF AORTOCORONARY BYPASS GRAFT 05/17/2016 JALEEL MILLS DO Ot I25.10 ATHSCL HEART DISEASE OF [place] CORONARY 05/17/2016 JALEEL MILLS DO, Ot J44.9 CHRONIC OBSTRUCTIVE PULMONARY DISEASE, U 05/17/2016 JALEEL MILLS DO Ot L76.32 POSTPROC HEMATOMA OF SKIN, SUBCU FOLLOWI 05/17/2016 JALEEL MILLS DO Ot R10.84 GENERALIZED ABDOMINAL PAIN 05/17/2016 JALEEL MILLS DO Ot Z79.02 AIDS NURSE (CURRENT) USE OF ANTITHROMBOTI 05/17/2016 JALEEL MILLS DO, Ot Z79.899 OTHER AIDS NURSE (CURRENT) DRUG THERAPY 05/17/2016 JALEEL MILLS DO [...] Peoples Ot I25.10 ATHSCL HEART DISEASE OF [place] CORONARY 05/25/2016 [facility] JIMMY Peoples Ot J18.9 PNEUMONIA, UNSPECIFIED ORGANISM [...] TIA (TIA), AND CEREB INFRC W 05/25/2016 [facility] JIMMY Ot Z87.891 PERSONAL HISTORY OF NICOTINE DEPENDENCE 05/25/2016 [facility] Ot Z90.79 ACQUIRED ABSENCE OF OTHER GENITAL ORGAN( 05/25/2016 LATISHA LIUJIMMY Ot Z93.3 COLOSTOMY STATUS 05/25/2016 [facility] Ot Z93.50 UNSPECIFIED CYSTOSTOMY STATUS 05/25/2016 [facility] JIMMY Ot Z95.1 PRESENCE OF AORTOCORONARY BYPASS GRAFT 05/26/2016 LATISHA LIUJIMMY Ot D64.9 ANEMIA, UNSPECIFIED 05/26/2016 LATISHA LIUJIMMY Ot D72.829 ELEVATED WHITE BLOOD CELL COUNT, UNSPECI 05/26/2016 LATISHA LIUJIMMY Ot E66.9 OBESITY, UNSPECIFIED 05/26/2016 LATISHA LIUJIMMY Ot E78.00 PURE HYPERCHOLESTEROLEMIA, UNSPECIFIED 05/26/2016 [facility] Ot 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 05/26/2016 LATISHA LUIJIMMY Ot I10 ESSENTIAL (PRIMARY) HYPERTENSION 05/26/2016 LATISHA LIUJIMMY Ot I25.10 ATHSCL HEART DISEASE OF [place] CORONARY 05/26/2016 LATISHA LIUJIMMY Ot J18.9 PNEUMONIA, [...] Ot 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 05/27/2016 LATISHA LIU, JIMMY Peoples Ot I10 ESSENTIAL (PRIMARY) HYPERTENSION 05/27/2016 [facility], JIMMY Peoples Ot I25.10 ATHSCL HEART DISEASE OF [place] CORONARY 05/27/2016 [facility], JIMMY Peoples Ot J18.9 PNEUMONIA, UNSPECIFIED ORGANISM 05/27/2016 [facility], JIMMY Peoples Ot J44.9 CHRONIC OBSTRUCTIVE PULMONARY DISEASE , U 05/27/2016 [facility] , JIMMY Peoples Ot K21.0 GASTRO-ESOPHAGEAL REFLUX DISEASE WITH ES 05/27/2016 [facility], JIMMY Peoples Ot K21.9 GASTRO-ESOPHAGEAL REFLUX DISEASE WITHOUT 05/27/2016 [facility] , JIMMY Peoples Ot K29.70 GASTRITIS, UNSPECIFIED, WITHOUT BLEEDING 05/27/2016 [facility] , JIMYM Peoples Ot K44.9 DIAPHRAGMATIC HERNIA WITHOUT OBSTRUCTION 05/27/2016 [facility] , JIMMY Peoples Ot L30.9 DERMATITIS, UNSPECIFIED 05/27/2016 [facility], JIMMY Peoples Ot N39.0 URINARY TRACT INFECTION, SITE NOT SPECIF 05/27/2016 LATISHA LIUJIMMY Ot R01.1 CARDIAC MURMUR, UNSPECIFIED 05/27/2016 [facility] Ot T83.510A I/I REACT D/T CYSTOSTOMY CATHETER, INITI 05/27/2016 LATISHA LIUJIMMY Ot Z68.36 BODY MASS INDEX (BMI) 36.0-36.9, ADULT 05/27/2016 LATISHA LIUJIMMY Ot Z85.46 PERSONAL HISTORY OF MALIGNANT NEOPLASM O 05/27/2016 [facility] Ot Z86.73 PRSNL HX OF TIA (TIA), AND CEREB INFRC W 05/27/2016 [facility] Ot Z87.891 PERSONAL HISTORY OF NICOTINE DEPENDENCE 05/27/2016 [facility] Ot Z90.79 ACQUIRED ABSENCE OF OTHER GENITAL ORGAN( 05/27/2016 [facility] Ot Z93.3 COLOSTOMY STATUS 05/27/2016 [facility] Ot Z93.50 UNSPECIFIED CYSTOSTOMY STATUS 05/27/2016 [facility] Ot Z95.1 PRESENCE OF AORTOCORONARY BYPASS GRAFT Procedures Code Description Performed By Performed On [id number] EXCISION OF ESOPHAGOGASTRIC JUNCTION, EN 05/27/2016 [id number] EXCISION OF STOMACH, ENDO, DIAGN 05/27/2016 Results Test Result Range Complete blood count [...] Automated blood platelet mean volume measurement 9.1 [foz_us ] 7.4-10.4 Automated blood neutrophils/100 leukocytes 63 [...] NRG Manual blood basophils/100 leukocytes 2 % NRG Blood erythrocyte morphology finding identification NORMAL NR [...] culture - 05/23/16 22:20 Bacterial urine culture [id number] NRG COLONY COUNT >100,000/ML NRG FTX;REPORTABLE SENSITIVITY REPORTED 05/25/16 7:25 NRG Bacterial blood culture - 05/23/16 22:20 Bacterial blood culture NG NR Bacterial susceptibility panel - 05/23/16 22:20 Gentamicin [...] - 05/23/16 22:45 Bacterial blood culture NG [facility] Whole blood basic metabolic panel - 05/24/16 [...] RED CELLS LEUKO REDUCED AS1 TRANSFUSED 1706 NR Blood type T Indirect antibody screen panel - 05/25/16 09:58 ABO+Rh group ON NRG Transfusion band number [id number] NR Blood group antibody screen NEGATIVE NRG Stool [...] Status Pt. Type Provider Facility Loc./Unit Complaint [id number] 05/24/2016 00:32:00 2016 17:46:00 DIS Outpatient JIMMY GOOD DO [facility] 4TH FEVER,UTI ,RLL WEAKNESS [id number] 05/15/2016 22:45:00 2016 01:15:00 DIS Emergency JALEEL MILLS DO [facility] ER AB PAIN DISCOLORATION 4 DAYS POST COLONOSCOPY [id number] 01/14/2015 15:32:00 2014 23:59:59 CLS Outpatient ADRIANA GALLO APRN [facility] UTI,DEHYDRATION [id number] 01/13/2015 09:04:00 2014 23:59:59 CLS Outpatient ADRIANA GALLO APRN [facility] RAD ABD PAIN,UNBILICAL HERNIA [id number] 10/06/2014 14:18:00 2014 23:59:59 CLS Outpatient JUSTIN CHINCHILLA MD [facility] RT DSYPNEA [id number] 09/02/2014 13:35:00 2014 23:59:59 CLS Outpatient ZION HUYNH [facility] CARD CAD,STEVE,HTN [id number] 01/06/2014 09:13:00 2013 23:59:59 CLS Outpatient KIMBERLI BARRETT MD [facility] RAD HTN,PVD [id number] 12/11/2013 06:51:00 2013 10:00:00 DIS Outpatient KIMBERLI BARRETT MD [facility] CATH ABN STRESS TEST,CORONARY ARTERY DISEASE,HTN,HLP [id number] 12/04/2013 12:06:00 2013 23:59:59 CLS Outpatient KIMBERLI BARRETT MD [facility] CARD CAD,HTN,HLP,STEVE [id number] 08/27/2013 10:32:00 2013 23:59:59 CLS Outpatient JORGE MARTINEZ MD [facility] RAD RTC [id number] 03/03/2016 11:06:00 ACT Outpatient ADRIANA GALLO APRN [facility] RAD RIGHT SHOULDER PAIN [id number] 07/24/2015 14:21:00 ACT Outpatient ADRIANA GALLO APRN [facility] DEHYDRATION [id number] 03/04/2012 08:21:00 Document Registration [id number] 02/02/2012 14:34:00 Document Registration [id number] 08/31/2011 11:19:00 Document Registration [id number] 08/25/2011 08:23:00 Document Registration [id number] 06/30/2011 14:16:00 Document Registration [id number] 06/16/2011 14:33:00 Document Registration [id number] 01/26/2011 09:13:00 Document Registration [id number] 11/18/2010 08:53:00 Document Registration [id number] 10/31/2010 17:03:00 Document Registration [id number] 10/02/2010 15:01:00 Document Registration
--- OUTSIDE RECORDS SUMMARY | 2016-06-26 12:28 | XMS REPORT | Continuity of Care Document ---
Author Author [facility] Organization [facility] Address Unknown Phone Unavailable Care Team Providers Care Tab Cutter Name Role Phone Darleen Aburto PCP [phone] Source Comments Some departments are not documenting in the electronic medical record. If you do not see the information that you expected, contact Release of Information in the Health Information Management department at [phone] for further assistance in locating additional records.[facility] Active Allergies and Adverse Reactions Allergen Noted [...] note. CAD (coronary artery disease) Prostate cancer ([facility]) Overview: PSA (09/28/1996)=8.9 ng/mL. Radical retropubic prostatectomy [...]
--- OUTSIDE RECORDS SUMMARY | 2016-06-26 12:29 | XMS REPORT | Continuity of Care Document ---
Author Author [facility] Organization [facility] Address Unknown Phone Unavailable Allergies Active Description [...] BARRETT MD Ot 414.01 CORONARY ATHEROSCLEROSIS OF [place] CORON 12/12/2013 KIMBERLI BARRETT MD Ot 414.02 [...] JUSTIN Quinteros Ot 786.09 01/20/2015 ADRIANA GALLO SHUTTLECOCK ASSEMBLER Ot K42.9 01/20/2015 ADRIANA GALLO SHUTTLECOCK ASSEMBLER Ot R10.9 02/06/2015 ADRIANA GALLO SHUTTLECOCK ASSEMBLER Ot E86.0 02/06/2015 ADRIANA GALLO SHUTTLECOCK ASSEMBLER Ot N39.0 02/10/2015 ADRIANA GALLO SHUTTLECOCK ASSEMBLER Ot K42.9 02/10/2015 ADRIANA GALLO SHUTTLECOCK ASSEMBLER Ot R10.9 08/11/2015 ADRIANA GALLO SHUTTLECOCK ASSEMBLER Ot E86.0 DEHYDRATION 08/28/2015 ADRIANA GALOL SHUTTLECOCK ASSEMBLER Ot E86.0 DEHYDRATION 03/03/2016 Ot 789.00 ABDOMINAL [...] NOS 03/03/2016 Ot 414.01 CORONARY ATHEROSCLEROSIS OF [place] CORON 03/03/2016 Ot 786.50 CHEST PAIN NOS [...] DO Ot I25.10 ATHSCL HEART DISEASE OF [place] CORONARY 05/16/2016 JALEEL MILLS DO Ot J44.9 CHRONIC OBSTRUCTIVE PULMONARY DISEASE, U 05/16/2016 JALEEL MILLS DO Ot L76.32 POSTPROC HEMATOMA OF SKIN, SUBCU FOLLOWI 05/16/2016 JALEEL MILLS DO Ot R10.84 GENERALIZED ABDOMINAL PAIN 05/16/2016 JALEEL MILLS DO Ot Z79.02 SKILLED NURSING (CURRENT) USE OF ANTITHROMBOTI 05/16/2016 JALEEL MILLS DO Ot Z79.899 OTHER SKILLED NURSING (CURRENT) DRUG THERAPY 05/16/2016 JALEEL MILLS DO Ot Z87.891 PERSONAL HISTORY OF NICOTINE DEPENDENCE 05/16/2016 JALEEL MILLS DO Ot Z93.3 COLOSTOMY STATUS 05/16/2016 JALEEL MILLS DO Ot Z95.1 PRESENCE OF AORTOCORONARY BYPASS GRAFT 05/17/2016 JALEEL MILLS DO Ot I25.10 ATHSCL HEART DISEASE OF [place] CORONARY 05/17/2016 JALEEL MILLS DO, Ot J44.9 CHRONIC OBSTRUCTIVE PULMONARY DISEASE, U 05/17/2016 JALEEL MILLS DO Ot L76.32 POSTPROC HEMATOMA OF SKIN, SUBCU FOLLOWI 05/17/2016 JALEEL MILLS DO Ot R10.84 GENERALIZED ABDOMINAL PAIN 05/17/2016 JALEEL MILLS DO Ot Z79.02 COMBINATION SAW OPERATOR (CURRENT) USE OF ANTITHROMBOTI 05/17/2016 JALEEL MILLS DO, Ot Z79.899 OTHER COMBINATION SAW OPERATOR (CURRENT) DRUG THERAPY 05/17/2016 JALEEL MILLS DO [...] Peoples Ot I25.10 ATHSCL HEART DISEASE OF [place] CORONARY 05/25/2016 [facility] JIMMY Peoples Ot J18.9 PNEUMONIA, UNSPECIFIED ORGANISM [...] TIA (TIA), AND CEREB INFRC W 05/25/[address] [facility] JIMMY Ot Z87.891 PERSONAL HISTORY OF NICOTINE DEPENDENCE 05/25/2016 [facility] Ot Z90.79 ACQUIRED ABSENCE OF OTHER GENITAL ORGAN( 05/25/2016 LATISHA LIUJIMMY Ot Z93.3 COLOSTOMY STATUS 05/25/2016 [facility] Ot Z93.50 UNSPECIFIED CYSTOSTOMY STATUS 05/25/[address] 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 05/26/2016 LATISHA LIUJIMMY Ot I10 ESSENTIAL (PRIMARY) HYPERTENSION 05/26/2016 LATISHA LIUJIMMY Ot I25.10 ATHSCL HEART DISEASE OF [place] CORONARY 05/26/2016 LATISHA LIUJIMMY Ot J18.9 PNEUMONIA, [...] Peoples Ot I10 ESSENTIAL (PRIMARY) HYPERTENSION 05/27/2016 [facility] JIMMY Peoples Ot I25.10 ATHSCL HEART DISEASE OF [place] CORONARY 05/27/2016 [facility] JIMMY Peoples Ot J18.9 PNEUMONIA, UNSPECIFIED ORGANISM 05/27/2016 [facility] JIMMY Peoples Ot J44.9 CHRONIC OBSTRUCTIVE PULMONARY DISEASE , U 05/27/2016 [facility] , JIMMY Peoples Ot K21.0 GASTRO-ESOPHAGEAL REFLUX DISEASE WITH ES 05/27/2016 [facility], JIMMY Peoples Ot K21.9 GASTRO-ESOPHAGEAL REFLUX DISEASE WITHOUT 05/27/2016 GELLENDER , JIMMY Peoples Ot K29.70 GASTRITIS, UNSPECIFIED, WITHOUT BLEEDING 05/27/2016 [facility] , JIMMY Peoples Ot K44.9 DIAPHRAGMATIC HERNIA WITHOUT OBSTRUCTION 05/27/2016 [facility] , JIMMY Peoples Ot L30.9 DERMATITIS, UNSPECIFIED 05/27/2016 [facility] JIMMY Peoples Ot N39.0 URINARY TRACT INFECTION, SITE NOT SPECIF 05/27/2016 LATISHA LIUJIMMY Ot R01.1 CARDIAC MURMUR, UNSPECIFIED 05/27/2016 [facility] Ot T83.510A I/I REACT D/T CYSTOSTOMY CATHETER, INITI 05/27/2016 LATISHA LIUJIMMY Ot Z68.36 BODY MASS INDEX (BMI) 36.0-36.9, ADULT 05/27/2016 LATISHA LIUJIMMY Ot Z85.46 PERSONAL HISTORY OF MALIGNANT NEOPLASM O 05/27/2016 [facility] Ot Z86.73 PRSNL HX OF TIA (TIA), AND CEREB INFRC W 05/27/2016 [facility] Z87.891 PERSONAL HISTORY OF NICOTINE DEPENDENCE 05/27/2016 [facility] Ot Z90.79 ACQUIRED ABSENCE OF OTHER GENITAL ORGAN( 05/27/2016 [facility] Ot Z93.3 COLOSTOMY STATUS 05/27/2016 [facility] Ot Z93.50 UNSPECIFIED CYSTOSTOMY STATUS 05/27/2016 [facility] Ot Z95.1 PRESENCE OF AORTOCORONARY BYPASS GRAFT Procedures Code Description Performed By Performed On [id number] EXCISION OF ESOPHAGOGASTRIC [place]UNCTION, EN 05/27/2016 [id number] EXCISION OF STOMACH, ENDO, DIAGN 05/27/2016 Results [...] culture - 05/23/16 22:20 Bacterial urine culture [id number] NRG COLONY COUNT >100,000/ML NRG FTX;REPORTABLE SENSITIVITY [...] - 05/23/16 22:45 Bacterial blood culture NG [facility] Whole blood basic metabolic panel - 05/24/16 [...] ABO+Rh group ON NRG Transfusion band number [id number] NR Blood group antibody screen NEGATIVE NRG [...] Status Pt. Type Provider Facility Loc./Unit Complaint [id number] 05/24/2016 00:32:00 2016 17:46:00 DIS Outpatient JIMMY GOOD DO [facility] 4TH FEVER,UTI ,RLL WEAKNESS [id number] 05/15/2016 22:45:00 2016 01:15:00 DIS Emergency JALEEL MILLS DO [facility] ER AB PAIN DISCOLORATION 4 DAYS POST COLONOSCOPY [id number] 01/14/2015 15:32:00 2014 23:59:59 CLS Outpatient ADRIANA GALLO APRN [facility] UTI,DEHYDRATION [id number] 01/13/2015 09:04:00 2014 23:59:59 CLS Outpatient ADRIANA GALLO APRN [facility] RAD ABD PAIN,UNBILICAL HERNIA [id number] 10/06/2014 14:18:00 2014 23:59:59 CLS Outpatient JUSTIN CHINCHILLA MD [facility] RT DSYPNEA [id number] 09/02/2014 13:35:00 2014 23:59:59 CLS Outpatient ZION HUYNH [facility] CARD CAD,STEVE,HTN [id number] 01/06/2014 09:13:00 2013 23:59:59 CLS Outpatient KIMBERLI BARRETT MD [facility] RAD HTN,PVD [id number] 12/11/2013 06:51:00 2013 10:00:00 DIS Outpatient KIMBERLI BARRETT MD [facility] CATH ABN STRESS TEST,CORONARY ARTERY DISEASE,HTN,HLP [id number] 12/04/2013 12:06:00 2013 23:59:59 CLS Outpatient KIMBERLI BARRETT MD [facility] CARD CAD,HTN,HLP,STEVE [id number] 08/27/2013 10:32:00 2013 23:59:59 CLS Outpatient JORGE MARTINEZ MD [facility] RAD RTC [id number] 03/03/2016 11:06:00 ACT Outpatient ADRIANA GALLO APRN [facility] RAD RIGHT SHOULDER PAIN [id number] 07/24/2015 14:21:00 ACT Outpatient ADRIANA GALLO APRN [facility] DEHYDRATION [id number] 03/04/2012 08:21:00 Document Registration [id number] 02/02/2012 14:34:00 Document Registration [id number] 08/31/2011 11:19:00 Document Registration [id number] 08/25/2011 08:23:00 Document Registration [id number] 06/30/2011 14:16:00 Document Registration [id number] 06/16/2011 14:33:00 Document Registration [id number] 01/26/2011 09:13:00 Document Registration [id number] 11/18/2010 08:53:00 Document Registration [id number] 10/31/2010 17:03:00 Document Registration [id number] 10/02/2010 15:01:00 Document Registration
== END 2016-05-27 17:46 | disposition home health service (06) | DRG 699 ==
LOC: EDUNIT# 22:02 → ER 22:04 → 4TH 05-24 00:32 → ENPENDDIS 05-27 16:00
PROVIDERS: ADMIT Family Medicine; ATTEND Family Medicine
PROC: 0DB78ZX Excision of Stomach, Pylorus, Via Natural or Artificial Opening Endoscopic, Diagnostic (ICD-10-PCS; 2016-05-27)
PROC: 0DB48ZX Excision of Esophagogastric Junction, Via Natural or Artificial Opening Endoscopic, Diagnostic (ICD-10-PCS; principal; 2016-05-27 12:45)
DX: T83.510A Infection and inflammatory reaction due to cystostomy catheter, initial encounter (principal); N39.0 Urinary tract infection, site not specified; G83.4 Cauda equina syndrome; J44.9 Chronic obstructive pulmonary disease, unspecified; D64.9 Anemia, unspecified; K21.0 Gastro-esophageal reflux disease with esophagitis; K44.9 Diaphragmatic hernia without obstruction or gangrene; K29.70 Gastritis, unspecified, without bleeding; I25.10 Atherosclerotic heart disease of native coronary artery without angina pectoris; I10 Essential (primary) hypertension; E78.00 Pure hypercholesterolemia, unspecified; R01.1 Cardiac murmur, unspecified; E66.9 Obesity, unspecified; Z68.36 Body mass index [BMI] 36.0-36.9, adult; L30.9 Dermatitis, unspecified; Z93.50 Unspecified cystostomy status; Z85.46 Personal history of malignant neoplasm of prostate; Z86.73 Personal history of transient ischemic attack (TIA), and cerebral infarction without residual deficits; Z95.1 Presence of aortocoronary bypass graft; Z93.3 Colostomy status; Z87.891 Personal history of nicotine dependence; Z90.79 Acquired absence of other genital organ(s)
CPT/HCPCS: 36415; 71010; 71020; 74178; 80048; 80053; 81000; 82274; 83605; 83735; 84153; 85007; 85025; 85027; 85610; 85730; 86850; 86900; 86901; 86920; 87040; 87077; 87088; 87186; 88305; 88312; 88313; 94640; 94760; 96365; 96375

== ENCOUNTER 2018-05-08 19:05 | Emergency (ER) | payer MEDICARE, OTHER ==
[~2018-05-08] VITALS: Ht 177.8 cm; Wt 115.4 kg
[~2018-05-08 19:05] MED LIST changes: +ACID1TAB PO; +AMLO10TA7 PO; +ASPI-983 PO; +CLON0.1T PO; +CLOP75TA28 PO; +GBPN600T PO; +IPRA3AMP31 INH; +NEBU-140 MC; +OXYC-529 PO; +PANT40TA3 PO; +PRALUENT SQ; +VENL75CA93 PO
[2018-05-08] MEDS ORDERED: methylPREDNISolone 125 MG (Solu-MEDROL) VIAL IV STA (19:12)
[2018-05-08] MEDS ORDERED: RT-ALBUTEROL SULF 2.5 MG/3 ML PRE-MIX VIAL INH STA (19:12)
[2018-05-08] MEDS ORDERED: DEXAMETHASONE 4 MG/ML SDV (DECADRON) IH ONE (19:15)
[2018-05-08] MEDS ORDERED: ACETAMINOPHEN 500 MG TAB (TYLENOL) PO PRN (19:15)
[2018-05-08] MEDS ORDERED: FUROSEMIDE 40 MG/4 ML INJ (LASIX) IVP ONE (19:15)
[2018-05-08] MEDS ORDERED: cefTRIAXone FOR IV USE 1,000 MG in WATER (STERILE) FOR INJECTION 10 ML IV ONE (19:15)
[2018-05-08] MEDS ORDERED: RT-ALBUTEROL/IPRATROPIUM 3 ML (DUONEB) VIAL INH ONE (19:15)
--- NOTE | 2018-05-08 19:21 | ED Respiratory ---
General Stated Complaint: FEVER,CHILLS Source: patient, EMS History of Present Illness Date Seen by Provider: May 08, 2018 Time Seen by Provider: 19:07 Initial Comments PT ARRIVES VIA EMS FROM HOME STATES HE HAS BEEN FEELING BAD SINCE Monday05/04/18 C/O SUBJECTIVE FEVER AND CHILLS--TEMP WAS 102.2 FOR EMS. PT HAS NOT TAKEN ANYTHING FOR FEVER C/O SHORTNESS OF BREATH--GETTING WORSE. HAS COPD AND HAS AN INHALER BUT HAS NOT BEEN USING. PT HAS HOME BIPAP AT HS, EMS STATE HE HAD INITIAL O2 SAT OF 75% ON ROOM AIR. EMS PLACED ON CPAP AND O2 SATS UP TO UPPER 90'S.NO NEB TREATMENT GIVEN BY EMS. C/O NON-PRODUCTIVE COUGH C/O GENERALIZED WEAKNESS C/O HEADACHE NO CHEST PAIN NO INCREASED SWELLING IN LEGS SYMPTOMS ARE WORSE AT NIGHT, BETTER DURING THE DAY HAS NOT TAKEN ANYTHING FOR SYMPTOMS AT ANY TIME HAS NOT SOUGHT CARE UNTIL TODAY LAST ADMIT WAS 05/2016 FOR UTI AND PNEUMONIA Allergies and Home Medications Allergies Uncoded Allergies: SURGICAL TAPE (Adverse Reaction, Intermediate, IRRITATES SKIN, 08/16/10) Home Medications Amlodipine Besylate 10 Mg Tablet, 10 MG PO DAILY, (Reported) Aspirin 81 Mg Tablet.dr, 81 MG PO HS, (Reported) Carvedilol 12.5 Mg Tablet, 12.5 MG PO BID, (Reported) Clonidine HCl 0.1 Mg Tablet, 0.1 MG PO BID, (Reported) Clopidogrel Bisulfate 75 Mg Tablet, 75 MG PO DAILY, (Reported) Diclofenac Sodium 75 Mg Tablet.dr, 75 MG PO BID, (Reported) Furosemide 40 Mg Tablet, 40 MG PO DAILY, (Reported) Gabapentin 600 Mg Tablet, 600 MG PO BID, (Reported) Ipratropium/Albuterol Sulfate 3 Ml Ampul.neb, 3 ML INH [id number] PRN for SHORTNESS OF BREATH Prescribed by: FEDE BUTLER on 05/27/16 1044 L. Acidophilus/Bulgaricus 1 Each Tablet, 1 TAB.CHEW PO AC Prescribed by: FEDE BUTLER on 05/27/16 1044 Lisinopril 40 Mg Tablet, 40 MG PO DAILY, (Reported) Melatonin/Pyridoxine Hcl (B6) 1 Each Tablet, 5 MG PO HS, (Reported) Multivitamin 1 Each Tablet, 1 TAB PO DAILY, (Reported) Richey 3 Polyunsat Fatty Acids 1,000 Mg Cap, 1,000 MG PO BID, (Reported) Oxycodone HCl 5 Mg Tablet, 20 MG PO DAILY, (Reported) TAKES 4 (5 MG) TABLETS Pantoprazole Sodium 40 Mg Tablet.dr, 40 MG PO BID Prescribed by: FEDE BUTLER on 05/27/16 1044 Polyethylene Glycol 17 Gm Pack, 17 GM PO DAILY PRN for CONSTIPATION, (Reported) Potassium Chloride 20 Meq Tablet.er, 20 MEQ PO HS, (Reported) Venlafaxine HCl 75 Mg Cap.er.24h, 225 MG PO DAILY, (Reported) Vitamin D 400 Iu Tab, 400 UNIT PO BID, (Reported) [Praluent Inj] , SQ EVERY 2 WEEKS, (Reported) Patient Home Medication List Home Medication List Reviewed: Yes Review of Systems Review of Systems Constitutional: see HPI EENTM: no symptoms reported Respiratory: see HPI Cardiovascular: no symptoms reported; No chest pain Gastrointestinal: no symptoms reported Genitourinary: no symptoms reported Musculoskeletal: no symptoms reported Skin: no symptoms reported Psychiatric/Neurological: No Symptoms Reported Hematologic/Lymphatic: No Symptoms Reported Past [id number] Hx Patient Social History Alcohol Use: Denies Use Recreational Drug Use: No Smoking Status: Former Smoker (1 PPD, QUIT 1989) Type Used: Cigarettes, Smokeless Tobacco Recent Foreign Travel: No Contact w/Someone Who Travel: No Recent Hopitalizations: No Immunizations Up To Date PED Vaccines UTD: Yes Date of Pneumonia Vaccine: Jul 24, 2011 Date of Influenza Vaccine: Dec 25, 2013 Seasonal Allergies Seasonal Allergies: No Past Medical History Surgeries: Yes (BACK SURGERY X 5; COLOSTOMY DUE TO CAUDA EQUINA SYNDROME; PROSTATECTOMY WITH SUPRAPUBIC CATHETER; NECK SURGERY; CABG 3 VESSEL IN 1999; CATH 2013--STENTS X 2; EGD'S/COLONOSCOPIES ) Abdominal, Adenoidectomy, Appendectomy, Bladder Surgery, Bowel Surgery, CABG, Orthopedic, Prostatectomy, Tonsillectomy, Urinary Diversion Respiratory: Yes Pneumonia, Sleep Apnea, COPD Currently Using CPAP: Yes Currently Using BIPAP: No Cardiac: Yes (3 VESSEL CABG 1999; CARDIAC CATH WITH STENTS X 2 IN 2013) Coronary Artery Disease, Heart Murmur, High Cholesterol, Hypertension Neurological: 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) Stroke Reproductive Disorders: No Genitourinary: Yes (PROSTATE CANCER--S/P SURGERY AND SUPRAPUBIC CATHETER) Prostate Problems, Neurogenic Bladder, UTI-Chronic Gastrointestinal: Yes (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) Gastroesophageal Reflux, Gastrointestinal Bleed, Diverticulosis, Esophagitis, Hiatal Hernia, Ulcer Musculoskeletal: Yes (uses walker; CHRONIC NECK AND BACK PAIN) Degenerate Disk Disease, Arthritis, Back Injury, Chronic Back Pain Endocrine: No HEENT: No Cancer: Yes Prostate Did You Recieve Any Treatments: Yes What Type of Treatment Did You: Surgical Intervention Psychosocial: No Integumentary: Yes Eczema Blood Disorders: No Adverse Reaction/Blood Tranf: No Family Medical History Myocardial infarction 17 FATHER Physical Exam Vital Signs - First Documented 05/08/18 19:35 O2 Flow Rate 30.00 Capillary Refill : Height: 5'10.00" Weight: 254lbs. 7.0oz. 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 II-XII nml as tested, no motor/sensory deficits, alert, oriented x 3 Skin: normal color, warm/dry Focused Exam Lactate Level 05/08/18 19:15: Lactic Acid Level 1.38 Lactic Acid Level Laboratory Tests Test 05/08/18 19:15 Lactic Acid Level 1.38 MMOL/L (0.50-2.00) Progress/Results/Core Measures Suspected Sepsis SIRS Temperature: Pulse: Respiratory Rate: Laboratory Tests 05/08/18 19:15: White Blood Count 12.2H Blood Pressure / Mean: 05/08/18 19:15: Lactic Acid Level 1.38 Laboratory Tests 05/08/18 19:15: Creatinine 1.25, INR Comment 1.1, Platelet Count 322, Total Bilirubin 0.6 Results/Orders Lab Results Laboratory Tests Test 05/08/18 19:15 05/08/18 19:52 05/08/18 20:09 Range/Units White Blood Count 12.2 H 4.3-11.0 10^3/uL Red Blood Count 3.57 L 4.35-5.85 10^6/uL Hemoglobin 10.5 L 13.3-17.7 G/DL Hematocrit 33 L 40-54 % Mean Corpuscular Volume 91 80-99 FL Mean Corpuscular Hemoglobin 29 25-34 PG Mean Corpuscular Hemoglobin Concent 32 32-36 G/DL Red Cell Distribution Width 16.6 H 10.0-14.5 % Platelet Count 322 130-400 10^3/uL Mean Platelet Volume 9.1 7.4-10.4 FL Neutrophils (%) (Auto) 91 H 42-75 % Lymphocytes (%) (Auto) 3 L 12-44 % Monocytes (%) (Auto) 4 0-12 % Eosinophils (%) (Auto) 2 0-10 % Basophils (%) (Auto) 0 0-10 % Neutrophils # (Auto) 11.1 H 1.8-7.8 X 10^3 Lymphocytes # (Auto) 0.4 L 1.0-4.0 X 10^3 Monocytes # (Auto) 0.4 0.0-1.0 X 10^3 Eosinophils # (Auto) 0.3 0.0-0.3 10^3/uL Basophils # (Auto) 0.0 0.0-0.1 10^3/uL Neutrophils % (Manual) 93 % Lymphocytes % (Manual) 2 % Monocytes % (Manual) 1 % Eosinophils % (Manual) 1 % Basophils % (Manual) 0 % Band Neutrophils 3 % Anisocytosis SLIGHT Prothrombin Time 13.9 12.2-14.7 SEC INR Comment 1.1 0.8-1.4 Activated Partial Thromboplast Time 28 24-35 SEC Sodium Level 139 135-145 MMOL/L Potassium Level 4.6 3.6-5.0 MMOL/L Chloride Level 105 98-107 MMOL/L Carbon Dioxide Level 23 21-32 MMOL/L Anion Gap 11 5-14 MMOL/L Blood Urea Nitrogen 24 H 7-18 MG/DL Creatinine 1.25 0.60-1.30 MG/DL Estimat Glomerular Filtration Rate 56 BUN/Creatinine Ratio 19 Glucose Level 111 H 70-105 MG/DL Lactic Acid Level 1.38 0.50-2.00 MMOL/L Calcium Level 9.4 8.5-10.1 MG/DL Corrected Calcium 9.6 8.5-10.1 MG/DL Magnesium Level 2.2 1.8-2.4 MG/DL Total Bilirubin 0.6 0.1-1.0 MG/DL Aspartate Amino Transf (AST/SGOT) 44 H 5-34 U/L Alanine Aminotransferase (ALT/SGPT) 55 0-55 U/L Alkaline Phosphatase 113 40-136 U/L Troponin I 0.071 H <0.028 NG/ML B-Type Natriuretic Peptide 379.0 H <100.0 PG/ML Total Protein 7.5 6.4-8.2 GM/DL Albumin 3.7 3.2-4.5 GM/DL Blood Gas Puncture Site RIGHT RADIAL Blood Gas Patient Temperature 102.1 Arterial Blood pH 7.37 7.37-7.43 Arterial Blood Partial Pressure CO2 40 35-45 MMHG Arterial Blood Partial Pressure O2 87 79-93 MMHG Arterial Blood HCO3 22 L 23-27 MMOL/L Arterial Blood Total CO2 22.7 21.0-31.0 MMOL/L Arterial Blood Oxygen Saturation 96 94-100 % Arterial Blood Base Excess -2.5 -2.5-2.5 MMOL/L Erick Test POSITIVE Blood Gas Ventilator Setting NO Blood Gas Inspired Oxygen 30% BIPAP Urine Color YELLOW Urine Clarity VERY CLOUDY H Urine pH 8 5-9 Urine Specific [place] 1.010 L 1.016-1.022 Urine Protein 2+ H NEGATIVE Urine Glucose (UA) NEGATIVE NEGATIVE Urine Ketones NEGATIVE NEGATIVE Urine Nitrite POSITIVE H NEGATIVE Urine Bilirubin NEGATIVE NEGATIVE Urine Urobilinogen NORMAL NORMAL MG/DL Urine Leukocyte Esterase 3+ H NEGATIVE Urine RBC (Auto) 5+ H NEGATIVE Urine RBC 25-50 H /HPF Urine WBC 10-25 H /HPF Urine Crystals NONE /LPF Urine Bacteria LARGE H /HPF Urine Casts NONE /LPF Urine Mucus NEGATIVE /LPF Urine Culture Indicated NO Micro Results Microbiology 05/08/18 Influenza Types A,B Antigen (ANITHA) - Final, Complete My Orders Orders - AKIN BURKS DO Cbc With Automated Diff (05/08/18 19:12) Comprehensive Metabolic Panel (05/08/18 19:12) Blood Culture (05/08/18 19:12) Urinalysis (05/08/18 19:12) Urine Culture (05/08/18 19:12) Protime With Inr (05/08/18 19:12) Partial Thromboplastin Time (05/08/18 19:12) Acetaminophen Tablet (Tylenol Tablet) (05/08/18 19:15) Saline Lock/Iv-Start (05/08/18 19:12) Saline Lock/Iv-Start (05/08/18 19:12) Ekg Tracing (05/08/18:12) Troponin I (05/08/18 19:12) Vital Signs Adult Sepsis Patie Q15M (05/08/18 19:12) O2 (05/08/18 19:12) Remove Rings In Anticipation O (05/08/18:12) Lactic Acid Analyzer (05/08/18 19:12) Influenza A And B Antigens (05/08/18 19:12) Ceftriaxone For Iv Use (Rocephin For I (05/08/18:15) Arterial Blood Gas (05/08/18:12) BNP (05/08/18 19:12) Magnesium (05/08/18 19:12) Monitor-Rhythm Ecg Trace Only (05/08/18:12) Albuterol Pre-Mix Nebs (Rt) (Proventil (05/08/18 19:12) Albuterol/Ipra Inhalation Soln (Duoneb I (05/08/18 19:15) Dexamethasone Injection (Decadron Inject (05/08/18 19:15) Rt Request For Service (05/08/18:12) Methylprednisolone Sod Succ (Solu-Medrol (05/08/18 19:12) Svn Small Volume Nebulizer (05/08/18 19:12) Svn Small Volume Nebulizer (05/08/18 19:12) Furosemide Injection (Lasix Injection) (05/08/18 19:15) Ibuprofen Tablet (Motrin Tablet) (05/08/18 19:30) Manual Differential (05/08/18 19:15) Arterial Blood Draw (05/08/18 19:52) Azithromycin Injection (Zithromax Inject (05/08/18 20:45) Heparin Drip 57368 Unit/500ml (Heparin (05/08/18 20:36) Heparin (Bolus Per Protocol) (Heparin (B (05/08/18 20:45) Medications Given in ED Current Medications Medications Dose Ordered Sig/Alex Route Start Time Stop Time Status Last Admin Dose Admin Acetaminophen 1,000 mg ONCE PRN PO 05/08/18 19:15 05/08/18 19:27 DC 05/08/18 19:26 1,000 MG Albuterol/ Ipratropium 3 ml ONCE ONCE INH 05/08/18 19:15 05/08/18 19:16 DC 05/08/18 19:32 3 ML Azithromycin 500 mg/Sodium Chloride 250 ml @ 250 mls/hr ONCE ONCE IV 05/08/18 20:45 05/08/18 21:44 DC 05/08/18 21:28 250 MLS/HR Ceftriaxone Sodium 1000 mg/ Sterile Water 10 ml @ 200 mls/hr ONCE ONCE IV 05/08/18 19:15 05/08/18 19:17 DC 05/08/18 19:35 200 MLS/HR Dexamethasone Sodium Phosphate 30 mg ONCE ONCE IH 05/08/18 19:15 05/08/18 19:17 DC 05/08/18 19:33 30 MG Furosemide 40 mg ONCE ONCE IVP 05/08/18 19:15 05/08/18 19:17 DC 05/08/18 20:06 40 MG Heparin Sodium (Porcine) HEPARIN FULL PROTOC... ONCE ONCE IV 05/08/18 20:45 05/08/18 20:46 DC 05/08/18 21:31 5,000 UNIT Heparin Sodium/ Dextrose 500 ml @ 0 mls/hr Q0M ONCE IV 05/08/18 20:36 05/08/18 20:37 DC 05/08/18 21:33 24 MLS/HR Ibuprofen 800 mg ONCE ONCE PO 05/08/18 19:30 05/08/18 19:31 DC 05/08/18 19:27 800 MG Vital Signs/I&O 05/08/18 05/08/18 05/08/18 05/08/18 19:07 19:07 19:26 19:27 Temp 102.1 102.1 102.1 Pulse 83 Resp 20 B/P (MAP) 152/65 (94) Pulse Ox 96 96 O2 Delivery NIV/CPAP NIV CPAP 05/08/18 05/08/18 05/08/18 19:35 20:33 23:27 Temp 99.1 Pulse 84 79 77 Resp 35 20 20 B/P (MAP) 141/73 (95) Pulse Ox 97 97 95 O2 Delivery NIV Bilevel O2 Flow Rate 30.00 30.00 05/09/18 00:00 Intake Total 1260 ml Balance 1260 ml Capillary Refill : Progress Note : Progress Note PLACED ON BIPAP AND GIVEN HOUR LONG NEB TREATMENT. O2 SATS REMAINED IN UPPER 90' S GIVEN HEPARIN, LASIX, SOLU-MEDROL AND ANTIBIOTICS. NO DETERIORATION IN PT'S CONDITION DURING ER STAY ECG Initial ECG Impression Date: May 08, 2018 Initial ECG Impression Time: 20:04 Initial ECG Rate: 84 Initial ECG Rhythm: Normal Sinus (RBBB) Initial ECG Comparisson: Changed (FROM 2013--RBBB NOT PRESENT AT THAT TIME. ) Diagnostic Imaging Comments CXR--WORSENING OPACITIES BILATERALLY--VASCULAR CONGESTION AND /OR MULTIFOCAL INFILTRATES, PER RADIOLOGIST REPORT @ 1949 Reviewed: Reviewed by Me Departure Communication (Admissions) 2013--SPOKE WITH DR. BARRETT, ADVISES TO ADMIT TO DR. BUTLER AND HE WILL SEE IN CONSULT. ADVISES FULL HEPARIN AND ONE DOSE OF LASIX IN ER 2019--HAVE JUST BEEN INFORMED BY PERSONAL LOAN SPECIALIST THAT THIS FACILITY JUST WENT ON FULL DIVERSION. 2029--CALLED [facility] 20[facility]--SPOKE WITH DR. TONEY, HOSPITALIST, ACCEPTS PT FOR ADMIT. WILL CALL BACK WITH BED ASSIGNMENT 2229--CONTACTED [facility], HAVE BED. EMS CONTACTED FOR TRANSPORT. Impression Primary Impression: Acute respiratory failure Additional Impressions: BIBASILAR INFILTRATES CHF (congestive heart failure) MILDLY ELEVATED TROPONIN UTI (urinary tract infection) Hypoxia Disposition: XFER SHT-TRM HOSP Condition: Improved Transfer Transfer Facility: [facility] Method of Transfer: EMS Departure-Patient Inst. Referrals: FEDE BUTLER MD (PCP/Family) Primary Care Physician AKIN BURKS DO May 08, 2018 19:21
[2018-05-08 19:27] LABS: BASOPHILS % (AUTO) 0 % (0-10); EOSINOPHILS # (AUTO) 0.3 10^3/uL (0.0-0.3); EOSINOPHILS % (AUTO) 2 % (0-10); HEMATOCRIT 33 % (40-54); HEMOGLOBIN 10.5 G/DL (13.3-17.7); LYMPHOCYTES # (AUTO) 0.4 X 10^3 (1.0-4.0); LYMPHOCYTES % (AUTO) 3 % (12-44); MEAN CORPUSCULAR HEMOGLOBIN 29 PG (25-34); MEAN CORPUSCULAR HGB CONC 32 G/DL (32-36); MEAN CORPUSCULAR VOLUME 91 FL (80-99); MEAN PLATELET VOLUME 9.1 FL (7.4-10.4); MONOCYTES # (AUTO) 0.4 X 10^3 (0.0-1.0); MONOCYTES % (AUTO) 4 % (0-12); NEUTROPHILS # (AUTO) 11.1 X 10^3 (1.8-7.8); NEUTROPHILS % (AUTO) 91 % (42-75); PLATELET COUNT 322 10^3/uL (130-400); RED CELL DISTRIBUTION WIDTH 16.6 % (10.0-14.5); WHITE BLOOD COUNT 12.2 10^3/uL (4.3-11.0)
[2018-05-08] MEDS ORDERED: IBUPROFEN 800 MG (MOTRIN) TAB PO ONE (19:30)
[2018-05-08 19:35] VITALS: BP 152/65
--- NOTE | 2018-05-08 19:38 | Diagnostic Imaging Report ---
INDICATION: Shortness of air. COMPARISON: 05/27/2016. FINDINGS: Worsening of bilateral perihilar and basilar heterogeneous opacities. Central vascular indistinctness is present. Potential trace right pleural effusion. Cardiac silhouette is enlarged. Status post CABG. Widening of the upper mediastinum may represent vascular congestion. IMPRESSION: Worsening of pulmonary opacities may be on the basis of pulmonary edema or multifocal infection. Dictated by: Dictated on workstation # [id number]
[2018-05-08 19:44] LABS: INR 1.1 (0.8-1.4); PROTHROMBIN TIME PATIENT 13.9 SEC (12.2-14.7)
[2018-05-08 19:49] LABS: ANISOCYTOSIS SLIGHT; BAND NEUTROPHILS 3 %; BASOPHILS % (MANUAL) 0 %; EOSINOPHILS % (MANUAL) 1 %; LYMPHOCYTES % (MANUAL) 2 %; MONOCYTES % (MANUAL) 1 %; NEUTROPHILS % (MANUAL) 93 %
[2018-05-08 19:51] LABS: ALBUMIN 3.7 GM/DL (3.2-4.5); BILIRUBIN,TOTAL 0.6 MG/DL (0.1-1.0); CALCIUM 9.4 MG/DL (8.5-10.1); CREATININE SERUM 1.25 MG/DL (0.60-1.30); MAGNESIUM 2.2 MG/DL (1.8-2.4); POTASSIUM 4.6 MMOL/L (3.6-5.0); TOTAL PROTEIN 7.5 GM/DL (6.4-8.2)
[2018-05-08 19:59] LABS: ABG BASE EXCESS -2.5 MMOL/L (-2.5-2.5); ABG OXYGEN SATURATION 96 % (94-100); ABG PCO2 40 MMHG (35-45); ABG PH 7.37 (7.37-7.43); ABG PO2 87 MMHG (79-93); ABG TCO2 22.7 MMOL/L (21.0-31.0)
[2018-05-08 20:00] LABS: ALLENS TEST POSITIVE; INSPIRED O2 30% BIPAP; PATIENT TEMP 102.1; VENTILATOR NO
[2018-05-08 20:15] LABS: BILIRUBIN,URINE NEGATIVE (NEGATIVE); CLARITY,URINE VERY CLOUDY; COLOR,URINE YELLOW; GLUCOSE, URINE (UA) NEGATIVE (NEGATIVE); KETONES,URINE NEGATIVE (NEGATIVE); LEUKOCYTE ESTERASE ,URINE 3+ (NEGATIVE); NITRITE,URINE POSITIVE (NEGATIVE); PH,URINE 8 (5-9); PROTEIN,URINE 2+ (NEGATIVE); UROBILINOGEN,URINE NORMAL (NORMAL)
[2018-05-08 20:25] LABS: BACTERIA,URINE LARGE /HPF; RBC,URINE 25-50 /HPF
[2018-05-08 20:33] VITALS: BP 146/69
[2018-05-08] MEDS ORDERED: HEParin DRIP 25000 UNIT/500ML 500 ML IV ONE (20:36)
[2018-05-08] MEDS ORDERED: HEParin 1000 UNIT/ML (10ML VIAL) FOR BOLUS IV ONE (20:45)
[2018-05-08] MEDS ORDERED: AZITHROMYCIN INJECTION 500 MG in NS (IVPB) 250 ML IV ONE (20:45)
[2018-05-08 23:27] VITALS: BP 141/73
== END 2018-05-08 23:29 | disposition short-term general hospital (02) ==
LOC: EDUNIT# 19:05 → ER 19:06
DX: J96.00 Acute respiratory failure, unspecified whether with hypoxia or hypercapnia (principal); I11.0 Hypertensive heart disease with heart failure; I50.9 Heart failure, unspecified; N39.0 Urinary tract infection, site not specified; R79.89 Other specified abnormal findings of blood chemistry; R91.8 Other nonspecific abnormal finding of lung field; J44.9 Chronic obstructive pulmonary disease, unspecified; G47.30 Sleep apnea, unspecified; I25.10 Atherosclerotic heart disease of native coronary artery without angina pectoris; E78.00 Pure hypercholesterolemia, unspecified; K21.9 Gastro-esophageal reflux disease without esophagitis; Z82.49 Family history of ischemic heart disease and other diseases of the circulatory system; Z87.19 Personal history of other diseases of the digestive system; Z85.46 Personal history of malignant neoplasm of prostate; Z87.440 Personal history of urinary (tract) infections; Z86.73 Personal history of transient ischemic attack (TIA), and cerebral infarction without residual deficits; Z95.5 Presence of coronary angioplasty implant and graft; Z91.048 Other nonmedicinal substance allergy status; Z79.82 Long term (current) use of aspirin; Z79.02 Long term (current) use of antithrombotics/antiplatelets; Z87.891 Personal history of nicotine dependence; Z98.890 Other specified postprocedural states; Z90.79 Acquired absence of other genital organ(s); Z95.1 Presence of aortocoronary bypass graft; Z90.89 Acquired absence of other organs; Z90.49 Acquired absence of other specified parts of digestive tract; Z87.01 Personal history of pneumonia (recurrent)
CPT/HCPCS: 36415; 36600; 71045; 80053; 81000; 82805; 83605; 83735; 83880; 84484; 85007; 85027; 85610; 85730; 87040; 87077; 87088; 87186; 87804; 93005; 93041; 94640; 96365; 96366; 96367; 96368; 96375; 99291

== ENCOUNTER → 2018-05-22 | Outpatient (CLI) | payer MEDICARE, OTHER ==
--- NOTE | 2018-05-22 19:18 | Diagnostic Imaging Report ---
INDICATION: Congestive heart failure, pneumonia, symptoms x1 month. TECHNIQUE: Two-view chest 1:24 p.m. CORRELATION STUDY: 05/08/2018. FINDINGS: Patient is post sternotomy and coronary artery bypass. Heart size is enlarged. Vasculature appears slightly less congested from prior study. There is again noted scattered bilateral pulmonary opacities to be present. Given differences in technique, may be perhaps minimally improved. There is presence of small right pleural effusion. The densities do have a somewhat nodular appearance. Accentuated thoracic kyphotic curvature. IMPRESSION: 1. Scattered pulmonary parenchymal densities throughout both lung cramer are again demonstrated. While some of these could be chronic or superimposed infiltrate, given the overall nodular appearance, possibility of neoplasm would be difficult to exclude. Correlation with CT imaging of the chest would be recommended given the prolonged presence of these findings. 2. Cardiac enlargement with some degree of vascular congestion, perhaps slightly less severe from prior study. Dictated by: Dictated on workstation # [id number]
== END ==
LOC: RAD 12:45
PROVIDERS: ATTEND Nurse Practitioner Family
DX: I50.9 Heart failure, unspecified (principal); J18.9 Pneumonia, unspecified organism; J98.4 Other disorders of lung; I51.7 Cardiomegaly; Z95.1 Presence of aortocoronary bypass graft
CPT/HCPCS: 71046

== ENCOUNTER → 2018-05-31 | Outpatient (CLI) | payer MEDICARE, OTHER ==
--- NOTE | 2018-05-31 19:28 | Diagnostic Imaging Report ---
PROCEDURE: CT chest without contrast. TECHNIQUE: Multiple contiguous axial images were obtained through the chest without the use of intravenous contrast. Auto Exposure Controls were utilized during the CT exam to meet ALARA standards for radiation dose reduction. INDICATION: Abnormal chest x-ray. FINDINGS: There are patchy bilateral pulmonary parenchymal opacities which are predominantly peripheral. There is some subpleural interstitial prominence as well. There is an at least partially loculated right pleural effusion. There is no pneumothorax. The thoracic aorta is normal in caliber. There is cardiomegaly and some coronary artery calcifications. There is no pathologically enlarged adenopathy in the mediastinum, although there are scattered subcentimeter lymph nodes. The visualized intra-abdominal structures are unremarkable. There are marked degenerative changes in the spine. IMPRESSION: Nonspecific patchy bilateral pulmonary opacities as well as some scattered subpleural interstitial prominence. Findings are nonspecific, however, likely reflect atypical infection. There is also partially loculated right pleural effusion as well as some subcentimeter lymph nodes in the mediastinum. Cardiomegaly and coronary artery calcifications. Marked degenerative changes in the spine. Dictated by: Dictated on workstation # [id number]
== END ==
LOC: RAD 14:38
PROVIDERS: ATTEND Nurse Practitioner Family
DX: J90 Pleural effusion, not elsewhere classified (principal); J98.4 Other disorders of lung; I25.10 Atherosclerotic heart disease of native coronary artery without angina pectoris; I51.7 Cardiomegaly; R59.0 Localized enlarged lymph nodes; M47.819 Spondylosis without myelopathy or radiculopathy, site unspecified
CPT/HCPCS: 71250

== ENCOUNTER → 2018-06-22 | Outpatient (CLI) | payer MEDICARE, OTHER ==
--- NOTE | 2018-06-22 17:27 | Diagnostic Imaging Report ---
PROCEDURE: CT chest without contrast. TECHNIQUE: Multiple contiguous axial images were obtained through the chest without the use of intravenous contrast. Auto Exposure Controls were utilized during the CT exam to meet ALARA standards for radiation dose reduction. INDICATION: Atypical pneumonia. COMPARISON: 05/31/2018. FINDINGS: Again seen are peripheral interstitial reticular infiltrates which are unchanged compared to the previous examination. There is persistent smaller right-sided effusion. There is no focus of consolidation, mass, pneumothorax, or suspicious spiculated nodule. Stable subcentimeter lymph nodes are seen in the mediastinum. There is no pericardial effusion. The heart size is enlarged but stable. No pulmonary edema. There is no pneumothorax. Osseous structures are stable. IMPRESSION: 1. The appearance of the lung parenchyma is unchanged from the prior examination. This may represent chronic interstitial lung disease or unresolved atypical pneumonia. Continued followup is recommended. 2. Persistent but smaller right-sided effusion. 3. Stable likely reactive as opposed to neoplastic mediastinal lymph nodes. 4. Cardiac enlargement without overt pulmonary edema. Dictated by: Dictated on workstation # [id number]
== END ==
LOC: RAD 16:26
PROVIDERS: ATTEND Nurse Practitioner Family
DX: J18.9 Pneumonia, unspecified organism (principal); J90 Pleural effusion, not elsewhere classified; I51.7 Cardiomegaly
CPT/HCPCS: 71250

== ENCOUNTER 2018-07-17 14:00 | Outpatient (CLI) | payer MEDICARE, OTHER ==
[~2018-07-17] VITALS: Ht 177.8 cm; Wt 115.4 kg
[2018-07-17] MEDS ORDERED: DULO30CA3 PO (14:56)
== END 2018-07-17 15:07 | disposition home or self-care (01) ==
LOC: PREOP 14:00
PROVIDERS: ATTEND Internal Medicine Critical Care Medicine
DX: Z01.818 Encounter for other preprocedural examination (principal)

== ENCOUNTER 2018-07-19 07:08 | Day surgery (SDC) | payer MEDICARE, OTHER ==
[~2018-07-19] VITALS: Ht 177.8 cm; Wt 115.4 kg
[~2018-07-19 07:08] MED LIST changes: +DULO30CA3 PO
[2018-07-19] MEDS ORDERED: LIDOCAINE PF 2% 5 ML (XYLOCAINE) VIAL INJ ONE (07:09)
[2018-07-19] MEDS ORDERED: LIDOCAINE PF 1% 2 ML VIAL IJ ONE (07:09)
[2018-07-19] MEDS ORDERED: LIDOCAINE JELLY 2% 6 ML SYRINGE MM ONE (07:09)
[2018-07-19] MEDS ORDERED: LACTATED RINGERS 1,000 ML IV ONE (07:22)
[2018-07-19] MEDS ORDERED: MIDAZOLAM 2 MG/2 ML (VERSED) VIAL ONE ×3 (07:34)
[2018-07-19] MEDS ORDERED: fentaNYL INJECTION 100 MCG/2 ML AMP ONE ×2 (07:34)
--- NOTE | 2018-07-19 07:41 | Progress Note-Pre Operative ---
Pre-Operative Progress Note H&P Reviewed The H&P was reviewed, patient examined and no changes noted. Date Seen by Provider: July 19, 2018 Time Seen by Provider: 07:40 Date H&P Reviewed: July 19, 2018 Time H&P Reviewed: 07:40 Pre-Operative Diagnosis: Cough/pulmonary infiltrate LAUREN CHIN DO July 19, 2018 07:41
--- NOTE | 2018-07-19 07:45 | Pre-Op Note & Conscious Sedat ---
Pre-Operative Progress Note H&P Reviewed The H&P was reviewed, patient examined and no changes noted. Date H&P Reviewed: July 19, 2018 Time H&P Reviewed: 07:45 Pre-Op Diagnosis: pulmoanry infiltrate and cough Conscious Sedation Pre-Proced Time 07:40 ASA Score 3 For ASA 3 and 4: Consider anesthesia and medical clearance. Also, for patients with a history of failed moderate sedation consider anesthesia. Airway Lungs Heart ASA score ASA 1: a normal healthy patient ASA 2: a patient with a mild systemic disease (mid diabetes, controlled hypertension, obesity ASA 3: a patient with a severe systemic disease that limits activity (angina, COPD, prior Myocardial infarction) ASA 4: a patient with an incapacitating disease that is a constant threat to life (CHF, renal failure) ASA 5: a moribund patient not expected to survive 24 hrs. (ruptured aneurysm) ASA 6: a declared brain- patient whose organs are being harvested. For emergent operations, add the letter E after the classification Mallampati Classification Grade 4 Sedation Plan Analgesia, Amnesia, Plan communicated to team members, Discussed options with patient/fam, Discussed risks with patient/fam The patient is an appropriate candidate to undergo the planned procedure, sedation, and anesthesia. The patient immediately re-assessed prior to indication. LAUREN CHIN DO July 19, 2018 07:45
--- NOTE | 2018-07-19 08:16 | Pulmonary Procedures ---
Pulmonary Procedures Date of Procedure Date of Service: July 19, 2018 Bronch Bronchoscopy with RML bronchoalveolar lavage (BAL), bilateral =-bronchial washes and, RML brushes. Preop DX persistent pulmonary infiltrates cough Postop DX: same Complications: none After informed consent obtained and formal time out pt was sedated using Fentanyl and Versed. Bronchoscope was advanced through the nare and vocal cords. 1% lidocaine was used to anesthetize vocal cords, epiglottis, juan alberto, and left/right main stem bronchus. An anatomical tour was undertaken down to the s egmental bronchi bilaterally. No endobronchial lesions noted. Bronchoscopy with RML bronchoalveolar lavage (BAL), bilateral bronchial washes and, RML brushes were obtained. Pt tolerated procedure well. No complications noted. Stat CXR is pending. LAUREN CHIN DO July 19, 2018 08:16
[2018-07-19] MEDS ORDERED: LACTATED RINGERS 1,000 ML IV STA (08:17)
[2018-07-19 08:21] VITALS: BP 158/78
--- OUTSIDE RECORDS SUMMARY | 2018-07-19 08:21 | XMS REPORT | Clinical Summary ---
Author Author [facility] Organization [facility] Address Unknown Phone Unavailable Care Team Providers Care Aged Or Disabled Carer Name Role Phone Lloyd Douglas MD Unavailable Narciso Condon MD Unavailable Torey Rogers MD Unavailable Unavailable Fred Austin PA-C Unavailable Darleen Aburto MD PCP Source Comments Some departments are not documenting in the electronic medical record. If you d o not see the information that you expected, contact Release of Information in [facility] Health Information Management department at [phone] for further assistan ce in locating additional records.[facility] Allergies Comments Active Allergy Reactions Severity Noted Date Foam Tape, causes burning and skin breakdown and burning Adhesive SEE COMMENTS Medium 06/29/2009 Iodinated Contrast- Oral RASH Medium 03/04/2015 And Iv Dye Medications End Date Status Medication Sig Dispensed Refills Start Date Active diphenhydrAMINE Take 25 mg by 0 (BENADRYL) 25 mg capsule mouth At Bedtime Daily. Active MULTIVITAMIN (ONE-A-DAY Take 1 Tab by 0 ESSENTIAL PO) mouth Daily. Active cholecalciferol (VITAMIN Take 1 Tab by 0 D-3) 400 unit PO Tab mouth Every Morning. Active potassium chloride SR Take 1 Tab by 0 (K-DUR) 20 mEq PO tablet mouth Daily. Active carvedilol (COREG) 12.5 Take 1 Tab by 180 Tab 3 08/06/201 mg PO tablet mouth twice 1 daily. Active diclofenac sodium DR Take 75 mg by 0 (VOLTAREN) 75 mg tablet mouth twice daily. Active venlafaxine XR (EFFEXOR Take 225 mg 0 XR) 75 mg capsule by mouth daily. Active pantoprazole DR Take 40 mg by 0 (PROTONIX) 40 mg tablet mouth at bedtime daily. Active lisinopril (PRINIVIL, Take 40 mg by 0 ZESTRIL) 40 mg tablet mouth daily. Active furosemide (LASIX) 40 mg Take 40 mg by 0 tablet mouth daily. Active clopiDOGrel (PLAVIX) 75 Take 1 Tab by 1 Tab 0 mg tablet mouth daily. 3 May resume on POD 5 Active oxyCODone (OXY-IR) 15 mg Take 15 mg by 0 tablet mouth every morning Active gabapentin (NEURONTIN) Take 300 mg 0 300 mg capsule by mouth. 2 cap twice daily Active CODEINE SULFATE PO Take by 0 mouth. Active metroNIDAZOLE (FLAGYL) Take 1 Tab by 0 500 mg tablet mouth three 7 times daily. Active Problems Problem Noted Date Bladder stones 11/02/2015 Lumbar stenosis 10/15/2012 Chronic suprapubic catheter 11/15/2010 Overview: Initially placed 11/15/2010; Dr. Douglas. 20 Fr SPT changed q 2-4 wks, indefinitely. L ast Assessment & Plan: Repeat cysto ~ May 2019. Renal insufficiency 07/30/2010 History of TIA (transient ischemic attack) 07/30/2010 GABI (obstructive sleep apnea) 07/30/2010 Overview: Uses C-PAP. Chronic back pain Bladder neck contracture (BNC) Overview: Recurrent BNC s/p multiple TUIBNC +/- Mitomycin C injection. Currently managed w/ chronic SP Tube, initially placed 11/15/2010; Dr. Douglas. L ast Assessment & Plan: See SP cath A&P note. CAD (coronary artery disease) Prostate cancer Overview: PSA (09/28/1996)=8.9 ng/mL. Radical retropubic prostatectomy (RRP) -- 12/23/1996; Angel Cordova MD. pT2 N0 Mx PSA (01/15/1998)=0.51 ng/mL. Salvage XRT ~ 1999. LHRH-agonist ~ 1999. L ast Assessment & Plan: Send pt to lab today for PSA. -- will contact pt w/ result. Continue to hold off on ADT until PSA ~ 4-5 ng/mL, or clinically indicated. RTC 1 yr for cysto and outside PSA check ~ 1-2 wks prior to appt. Post-traumatic bulbous urethral stricture Overview: Recurrent Urethral Stricture s/p multiple DVIU 's. Currently managed w/ chronic SP Tube, initially placed 11/15/2010; Dr. Douglas. L ast Assessment & Plan: See SP cath A&P note. IVA (stress urinary incontinence), male Overview: AUS Placement -- 05/10/2010; Dr. Douglas. AUS Removal d/t urethral erosion -- 08/28/2010; Dr. Douglas. L ast Assessment & Plan: See chronic SP catheter A&P note. History of hematuria Overview: Hx of gross hematuria. Cystoscopy & CT Urogram (02/11/2013) --> no evidence of malignancy or stones. Cystoscopy (07/22/2014) --> No evidence of malignancy. Cystoscopy (11/02/2015) --> No evidence of malignancy. Cystoscopy (06/09/2017) --> No evidence of malignancy. L ast Assessment & Plan: Likely secondary to chronic anticoagulation & catheter irritation. Repeat cysto ~ July 2015. History of tobacco use Chronic anticoagulation Obesity (BMI 30-39.9) Rising PSA following treatment for malignant neoplasm of prostate Last Assessment & Plan: See prostate cancer A&P note. Urinary retention Overview: Managed w/ chronic suprapubic catheter. L ast Assessment & Plan: See SP cath A&P note. Encounters Care Team Description Date Type Specialty Fred Austin PA-C 07/03/2018 Hospital Lab Encounter Fred Austin PA-C Prostate cancer (HCC) (Primary Dx); Rising PSA following treatment for malignant neoplasm of prostate; Post-traumatic bulbous urethral stricture; Chronic suprapubic catheter (HCC); Bladder neck contracture (BNC); Urinary retention 07/03/2018 Office Visit Urology from Last 3 Months Immunizations Name Dates Previously Given Next Due Pneumococcal Vaccine 10/16/2012 (23-[place] Adult) Family History Medical History Relation Name Comments Heart Attack Father Relation Name Status Comments Father AMI Mother Old Age (Age 94) Social History Date Tobacco Use Types Packs/Day Years Used Quit: 04/30/1989 Former Smoker Cigarettes 1 20 Smokeless Tobacco: Never Used Tobacco Cessation: Counseling Given: No Alcohol Use Drinks/Week oz/Week Comments Yes rarely Sex Assigned at Date Recorded Not on file Industry Job Start Date Occupation Not on file Not on file Not on file Travel End Travel History Travel Start No recent travel history available. Last Filed Vital Signs Time Taken Vital Sign Reading 07/03/2018 1:58 PM CDT Blood Pressure 143/58 07/03/2018 1:58 PM CDT Pulse 63 10/17/2012 8:00 AM CDT Temperature 36.9 C (98.5 F) 05/06/2011 4:00 AM CDT Respiratory Rate 16 10/17/2012 8:00 AM CDT Oxygen Saturation 98% - Inhaled Oxygen - Concentration 07/03/2018 1:58 PM CDT Weight 115.2 kg (254 lb) 07/03/2018 1:58 PM CDT Height 182.9 cm (6') 07/03/2018 1:58 PM CDT Body Mass Index 34.45 Plan of Treatment Health Maintenance Due Date Last Done Comments PHYSICAL (COMPREHENSIVE) 1945 EXAM DTAP/TDAP VACCINES (1 - 1956 Tdap) SHINGLES RECOMBINANT 1988 VACCINE (1 of 2) PNEUMONIA (PCV13/PPSV23) 10/16/2013 10/16/2012 VACCINES (2 of 2 - PCV13) INFLUENZA VACCINE 11/20/2018 12/31/2014 Procedures Comments Procedure Name Priority Date/Time Associated Diagnosis PROSTATIC SPECIFIC Routine 07/03/2018 Prostate cancer (HCC) ANTIGEN-PSA 3:01 PM CDT from Last 3 Months Results * PROSTATIC SPECIFIC ANTIGEN-PSA (07/03/2018 3:01 PM CDT) Prostatic 1.15 <6.01 NG/ML [facility] Specific Comment: Antigen REFERENCE RANGES AGEPSA VALUE <50<=1.5 50-54 <=2.0 55-59 <=3.0 60-69 <=4.0 70+<=6.0 Specimen Blood Performing Organization Address City/State/Zipcode Phone Number [facility] [address] [place] [address] from Last 3 Months Insurance Type Payer Benefit Subscriber ID Effective Phone Address Plan / Dates Group Medicare MEDICARE MEDICARE xxxxxxxxxxx 2003- PART A AND Present B Indemnity GENERIC COMMERCIAL GENERIC xxxxxxxx 2015-P COMMERCIAL resent Advance Directives Patient has advance care planning documents, and code status on file. For more i nformation, please contact: [facility] [address] [place] [address] Date Inactivated Comments Code Status Date Activated 10/17/2012 1:49 PM Full Code 10/15/2012 2:45 PM Provider has discussed Code Status No, discussion not w/Patient or Family? necessary based on Dx 10/26/2011 5:07 AM Full Code 10/23/2011 9:31 PM Provider has discussed Code Status Yes w/Patient or Family? 08/30/2010 1:21 PM Full Code 08/27/2010 8:05 PM Provider has discussed Code Status No, discussion not w/Patient or Family? necessary based on Dx 08/27/2010 8:05 PM Full Code 08/27/2010 7:51 PM Provider has discussed Code Status No, discussion not w/Patient or Family? necessary based on Dx 08/06/2010 3:38 PM Full Code 07/29/2010 2:43 AM Provider has discussed Code Status Yes w/Patient or Family?
--- OUTSIDE RECORDS SUMMARY | 2018-07-19 08:21 | XMS REPORT | Encounter Summary ---
Author Author [facility] Organization [facility] Address Unknown Phone Unavailable Care Team Providers Care Guest Relations Associate Name Role Phone Lloyd Douglas MD Unavailable Narciso Condon MD Unavailable Torey Rogers MD Unavailable Unavailable Fred Austin PA-C Unavailable Darleen Aburto MD PCP Encounter Details Care Team Description Date Type Department Fred Austin PA-C [address] [facility] [address] [place] [address] 07/03/2018 [facility] [address] [address] Social History Date Tobacco Use Types Packs/Day Years Used Quit: 04/30/1989 Former Smoker Cigarettes 1 20 Smokeless Tobacco: Never Used Alcohol Use Drinks/Week oz/Week Comments Yes rarely Sex Assigned at Date Recorded Not on file Industry Job Start Date Occupation Not on file Not on file Not on file Travel End Travel History Travel Start No recent travel history available. documented as of this encounter Medications at Time of Discharge Start Date End Date Medication Sig Dispensed Refills 08/06/2010 carvedilol (COREG) 12.5 Take 1 Tab by 180 Tab 3 mg PO tablet mouth twice daily. cholecalciferol (VITAMIN Take 1 Tab by 0 D-3) 400 unit PO Tab mouth Every Morning. 10/17/2012 clopiDOGrel (PLAVIX) 75 Take 1 Tab by 1 Tab 0 mg tablet mouth daily. May resume on POD 5 CODEINE SULFATE PO Take by [address] Take 75 mg by 0 (VOLTAREN) 75 mg tablet mouth twice daily. diphenhydrAMINE Take 25 mg by 0 (BENADRYL) 25 mg capsule mouth At Bedtime Daily. furosemide (LASIX) 40 mg Take 40 mg by 0 tablet mouth daily. gabapentin (NEURONTIN) Take 300 mg 0 300 mg capsule by mouth. 2 cap twice daily lisinopril (PRINIVIL, Take 40 mg by 0 ZESTRIL) 40 mg tablet mouth daily. 06/03/2016 metroNIDAZOLE (FLAGYL) Take 1 Tab by 0 500 mg tablet mouth three times daily. MULTIVITAMIN (ONE-A-DAY Take 1 Tab by 0 ESSENTIAL PO) mouth Daily. oxyCODone (OXY-IR) 15 mg Take 15 mg by 0 tablet mouth every morning pantoprazole DR Take 40 mg by 0 (PROTONIX) 40 mg tablet mouth at bedtime daily. potassium chloride SR Take 1 Tab by 0 (K-DUR) 20 mEq PO tablet mouth Daily. venlafaxine XR (EFFEXOR Take 225 mg 0 XR) 75 mg capsule by mouth daily. documented as of this encounter Plan of Treatment Not on filedocumented as of this encounter Procedures Comments Procedure Name Priority Date/Time Associated Diagnosis PROSTATIC SPECIFIC Routine 07/03/2018 Prostate cancer (HCC) ANTIGEN-PSA 3:01 PM CDT documented in this encounter Results * PROSTATIC SPECIFIC ANTIGEN-PSA (07/03/2018 3:01 PM CDT) Prostatic 1.15 <6.01 NG/ML [facility] Specific Comment: Antigen REFERENCE RANGES AGEPSA VALUE <50<=1.5 50-54 <=2.0 55-59 <=3.0 60-69 <=4.0 70+<=6.0 Specimen Blood Performing Organization Address City/State/Zipcode Phone Number [facility] [address] [place] [address] documented in this encounter Visit Diagnoses Diagnosis Prostate cancer (HCC) Malignant neoplasm of prostate Rising PSA following treatment for malignant neoplasm of prostate documented in this encounter
--- OUTSIDE RECORDS SUMMARY | 2018-07-19 08:21 | XMS REPORT | Encounter Summary ---
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 Name Role Phone Lloyd Douglas MD Unavailable Narciso Condon MD Unavailable Torey Rogers MD Unavailable Unavailable Fred Austin PA-C Unavailable Darleen Aburto MD PCP Reason for Visit * Reason Comments Prostate Cancer Encounter Details Care Team Description Date Type Department Fred Austin PA-C [address] [facility] [address] [place] [address] Prostate cancer (HCC) (Primary Dx); Rising PSA following treatment for malignant neoplasm of prostate; Post-traumatic bulbous urethral stricture; Chronic suprapubic catheter (HCC); Bladder neck contracture (BNC); Urinary retention 07/03/2018 Office Visit [facility] [address] [place] [address] Social History Date Tobacco Use Types Packs/Day [...] history available. documented as of this encounter Last Filed Vital Signs Time Taken Vital Sign Reading 07/03/2018 1:58 PM CDT Blood Pressure 143/58 07/03/2018 1:58 PM CDT Pulse 63 - Temperature - - Respiratory Rate - - Oxygen Saturation - - Inhaled Oxygen - Concentration 07/03/2018 1:58 PM CDT Weight 115.2 kg (254 lb) 07/03/2018 1:58 PM CDT Height 182.9 cm (6') 07/03/2018 1:58 PM CDT Body Mass Index 34.45 documented in this encounter Progress Notes * Fred Austin PA-C - 07/03/2018 2:00 PM CDT Date of Service: 07/03/2018 Subjective: Pillo Cade is a 77 y.o. male. Chief Complaint Patient presents with Prostate Cancer History of Present Illness Very pleasant gentleman with complex urologic history, including prost ate cancer s/p radical retropubic prostatectomy (RRP) and salvage radiation, rec urrent urethral stricture and bladder neck contracture s/p multiple dilations an d urethrotomies, currently managed with chronic suprapubic tube, stress urinary incontinence (IVA) s/p AUS placement followed by removal due to erosion approxim ately 1 year later. He states he has distant history of kidney stones. Currently manages with changing his own suprapubic tube approximately every 2-4 weeks. (+)c/o persistent urine sediment. (+)irrigating prn. Denies interval h/o UTI o r pyelonephritis. PSA detectable & persistently slowly rising. CT A/P (02/11/2014) revealed (R) iliac lymphadenopathy, worrisome for metastatic disease. Referred to Dr. Valadez ( Rad/Onc) for evaluation & he has elected continued surveillance at this time. No longer follows w/ Rad/Onc. States he would consider re-starting ADT when PSA ~ 4-5 ng/mL. Denies appetite changes, unintentional wt loss, or bone pain. No current hot flashes, but prior hot flashes while on ADT managed w/ Effexor. 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 Denies significant hematuria since last appt. Last cystoscopy (May 2017) revealed no evidence of bladder mass or tumor. He has significant cardiovascular & pulmonary disease and is on chronic anticoagulation with Plavix. (+)fatigue, SOB/ AVILA. 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 Presents to Urology Clinic today for routine prostate cancer f/u. HPI reviewed on 07/03/2018 & essentially unchanged since last visit. Review of Systems Constitutional: Negative for activity change, appetite change, chills, diaphores is, fatigue, fever and unexpected weight change. HENT: Negative for congestion, hearing loss, mouth sores and sinus pressure. Eyes: Negative for visual disturbance. Respiratory: Negative for apnea, cough, chest tightness and shortness of breath. Cardiovascular: Negative for chest pain, palpitations and leg swelling. Gastrointestinal: Negative for abdominal pain, blood in stool, constipation, sharona rrhea, nausea, rectal pain and vomiting. Genitourinary: Negative for discharge, flank pain, genital sores, hematuria, pen ile pain, penile swelling, scrotal swelling and testicular pain. Musculoskeletal: Negative for arthralgias, back pain, gait problem and myalgias. Skin: Negative for rash and wound. Neurological: Negative for dizziness, tremors, seizures, syncope, weakness, ligh t-headedness, numbness and headaches. Hematological: Negative for adenopathy. Does not bruise/bleed easily. Psychiatric/Behavioral: Negative for decreased concentration and dysphoric mood. The patient is not nervous/anxious. Objective: carvedilol (COREG) 12.5 mg PO tablet Take 1 Tab by mouth twice daily. cholecalciferol (VITAMIN D-3) 400 unit PO Tab Take 1 Tab by mouth Every Morn ing. clopiDOGrel (PLAVIX) 75 mg tablet Take 1 Tab by mouth daily. May resume on P OD 5 CODEINE SULFATE PO Take by mouth. diclofenac sodium DR (VOLTAREN) 75 mg tablet Take 75 mg by mouth twice daily . diphenhydrAMINE (BENADRYL) 25 mg capsule Take 25 mg by mouth At Bedtime Ok y. furosemide (LASIX) 40 mg tablet Take 40 mg by mouth daily. gabapentin (NEURONTIN) 300 mg capsule Take 300 mg by mouth. 2 cap twice ok y lisinopril (PRINIVIL, ZESTRIL) 40 mg tablet Take 40 mg by mouth daily. metroNIDAZOLE (FLAGYL) 500 mg tablet Take 1 Tab by mouth three times daily. MULTIVITAMIN (ONE-A-DAY ESSENTIAL PO) Take 1 Tab by mouth Daily. oxyCODone (OXY-IR) 15 mg tablet Take 15 mg by mouth every morning pantoprazole DR (PROTONIX) 40 mg tablet Take 40 mg by mouth at bedtime daily . potassium chloride SR (K-DUR) 20 mEq PO tablet Take 1 Tab by mouth Daily. venlafaxine XR (EFFEXOR XR) 75 mg capsule Take 225 mg by mouth daily. Vitals: 07/03/18 1358 BP: 143/58 Pulse: 63 Weight: 115.2 kg (254 lb) Height: 182.9 cm (72") Body mass index is 34.45 kg/m. Physical Exam Constitutional: He is oriented to person, place, and time. He appears well-devel oped and well-nourished. No distress. HENT: Head: Normocephalic and atraumatic. Eyes: No scleral icterus. Pulmonary/Chest: Effort normal. No respiratory distress. Abdominal: Soft. He exhibits no distension. There is no tenderness. There is no guarding. SP tube site: (-)erythema, swelling, or purulent drainage. Neurological: He is alert and oriented to person, place, and time. No cranial ne rve deficit. Skin: Skin is warm and dry. No rash noted. No erythema. Psychiatric: He has a normal mood and affect. His behavior is normal. Judgment a nd thought content normal. Vitals reviewed. Labs: [facility] PSA Hx: Lab Results Component Value Date PSA 1.15 07/03/2018 PSA 1.63 06/08/2017 PSA 1.53 05/05/2016 PSA 1.42 (H) 09/02/2015 PSA 2.25 02/26/2015 PSA 2.11 08/26/2014 PSA 2.56 02/19/2014 PSA 2.30 08/21/2013 PSA 1.97 02/11/2013 PSA 1.58 05/07/2012 PSA 1.33 05/06/2011 PSA 1.65 08/09/2010 PSA 1.56 09/23/2009 PSA 1.76 01/28/2009 Assessment and Plan: Problem Prostate cancer (HCC) PSA (09/28/1996)=8.9 ng/mL. Radical retropubic prostatectomy (RRP) -- 12/23/1996; Angel Cordova MD. pT2 N0 Mx PSA (01/15/1998)=0.51 ng/mL. Salvage XRT ~ 1999. LHRH-agonist ~ 1999. Rising Psa Following Treatment for Malignant Neoplasm of Prostate Urinary Retention Managed w/ chronic suprapubic catheter. Post-Traumatic Bulbous Urethral Stricture Recurrent Urethral Stricture s/p multiple DVIU 's. Currently managed w/ chronic SP Tube, initially placed 11/15/2010; Dr. Gomez [facility] Chronic Suprapubic Catheter ([facility]) Initially placed 11/15/2010; Dr. Douglas. 20 Fr SPT changed q 2-4 wks, indefinitely. Bladder neck contracture (BNC) Recurrent BNC s/p multiple TUIBNC +/- Mitomycin C injection. Currently managed w/ chronic SP Tube, initially placed 11/15/2010; Dr. Gomez [facility] Prostate cancer ([facility]) Send pt to lab today for PSA. -- will contact pt w/ result. Continue to hold off on ADT until PSA ~ 4-5 ng/mL, or clinically indicated. RTC 1 yr for cysto and outside PSA check ~ 1-2 wks prior to appt. Bladder neck contracture (BNC) See SP cath A&P note. Chronic suprapubic catheter Repeat cysto ~ May 2019. Post-traumatic bulbous urethral stricture See SP cath A&P note. Rising PSA following treatment for malignant neoplasm of prostate See prostate cancer A&P note. Urinary retention See SP cath A&P note. Orders Placed This Encounter PROSTATIC SPECIFIC ANTIGEN-PSA Vipul Austin PA-C Urology documented in this encounter Plan of Treatment Order Schedule Name Priority Associated Diagnoses Expected: 07/08/2019 (Approximate), Expires: 01/19/2020 PROSTATIC SPECIFIC ANTIGEN-PSA Routine Prostate cancer (HCC) Rising PSA following treatment for malignant neoplasm of prostate documented as of this encounter Visit Diagnoses Diagnosis Prostate cancer (HCC) - Primary Malignant neoplasm of prostate Rising PSA following treatment for malignant neoplasm of prostate Post-traumatic bulbous urethral stricture Traumatic urethral stricture Chronic suprapubic catheter (HCC) Unspecified cystostomy status Bladder neck contracture (BNC) Bladder neck obstruction Urinary retention Retention of urine, unspecified * Assessment & Plan Note - Fred Austin PA-C - 07/08/2018 11:57 PM CDT Associated Problem(s): Urinary retention See SP cath A&P note. * Assessment & Plan Note - Fred Austin PA-C - 07/08/2018 11:57 PM CDT Associated Problem(s): Rising PSA following treatment for malignant neoplasm of prostate See prostate cancer A&P note. * Assessment & Plan Note - Fred Austin PA-C - 07/08/2018 11:57 PM CDT Associated Problem(s): Post-traumatic bulbous urethral stricture See SP cath A&P note. * Assessment & Plan Note - Fred Austin PA-C - 07/08/2018 11:56 PM CDT Associated Problem(s): Chronic suprapubic catheter (HCC) Repeat cysto ~ May 2019. * Assessment & Plan Note - Fred Austin PA-C - 07/08/2018 11:56 PM CDT Associated Problem(s): Bladder neck contracture (BNC) See SP cath A&P note. * Assessment & Plan Note - Fred Austin PA-C - 07/08/2018 11:55 PM CDT Associated Problem(s): Prostate cancer (HCC) Send pt to lab today for PSA. -- will contact pt w/ result. Continue to hold off on ADT until PSA ~ 4-5 ng/mL, or clinically indicated. RTC 1 yr for cysto and outside PSA check ~ 1-2 wks prior to appt. documented in this encounter
--- OUTSIDE RECORDS SUMMARY | 2018-07-19 08:25 | XMS REPORT | CCD ---
Author Author Kavya Subramanian Organization [facility] Address [address] [place] [address] Phone Care Team Providers Care Purchase Request Editor Name Role Phone PP Unavailable CCM Unavailable Summary Purpose Interface Exchange Insurance Providers Payer name Policy type / Coverage type Covered constitution party ID Effective Begin Date Effective End Date WPS Medicare Part B Commercial Insurance [id number] Unknown Unknown [employer]ICE Commercial Insurance [id number] Unknown Unknown Family history Father Diagnosis Age At Onset Coronary Artery Disease Unknown Mother Diagnosis Age At Onset Arthritis Unknown Sister Diagnosis Age At Onset Alzheimer's Disease Unknown Social History Social History Element Codes Description Effective Dates Marital status Unknown 07/04/2014 Number of children Unknown 2 07/04/2014 Living arrangements Unknown House 07/04/[address]: 2584857 Quit over 10 years ago 07/04/2014 Alcohol history Unknown occasionally drinks alcohol 07/04/2014 Frequency of drinks SNOMED CT: 306769257 Drinks rarely 07/04/2014 Allergies, Adverse Reactions, Alerts Substance Reaction Codes Entered Date Inactivated Date Status * NO KNOWN FOOD ALLERGIES Unknown 07/04/2014 No Inactive Date Active Iodine rash, pruritis, RxNorm: 5933 03/04/2015 No Inactive Date Active tramadol pruritis RxNorm: 80407 07/04/2014 No Inactive Date Active Past Medical History Illness Codes Condition Status Onset Date Resolved Date Interstitial pulmonary disease, unspecified ICD-9: 515 ICD-10: J84.9 Active 07/06/2018 Unknown Shortness of breath ICD- 9: 786.05 ICD-10: R06.02 Active 02/22/2016 Unknown Acute on chronic combined systolic (congestive) and diastolic (congestive) heart failure ICD-9: 428.43 ICD-10: I50.43 Active 05/22/2018 Unknown Essential (primary) hypertension ICD-9: 401.9 ICD-10: I10 Active 09/15/2015 Unknown Anemia, unspecified ICD- 9: 285.9 ICD-10: D64.9 Active 05/24/2018 Unknown Pneumonia due to other specified bacteria ICD-9: 482.81 ICD-10: J15.8 Active 05/22/2018 Unknown Cough ICD-9: 786.2 ICD-10: R05 Active 10/07/2016 Unknown Other acute sinusitis ICD- 9: 461.8 ICD-10: J01.80 Active 04/20/2018 Unknown Other allergic rhinitis ICD-9: 477.8 ICD-10: J30.89 Active 04/20/2018 Unknown Dysuria ICD-9: 788.1 ICD-10: R30.0 Active 03/30/2017 Unknown Other iron deficiency anemias ICD-9: 280.1 ICD-10: D50.8 Active 03/19/2015 Unknown Weakness ICD-9: 780.79 ICD-10: R53.1 Active 02/22/2016 Unknown Candidal stomatitis ICD- 9: 112.0 ICD-10: B37.0 Active 08/15/2017 Unknown Generalized anxiety disorder ICD-9: 300.00 ICD-10: F41.1 Active 08/15/2017 Unknown Major depressive disorder, single episode, moderate ICD-9: 296.22 ICD-10: F32.1 Active 08/15/2017 Unknown Other lesions of oral mucosa ICD-9: 528.9 ICD-10: K13.79 Active 08/15/2017 Unknown Bilateral primary osteoarthritis of knee ICD-9: 715.96 ICD-10: M17.0 Active 07/01/2016 Unknown Cauda equina syndrome ICD- 9: 344.60 ICD-10: G83.4 Active 03/19/2015 Unknown Drug induced constipation ICD-9: 564.09 ICD-10: K59.03 Active 07/01/2016 Unknown Pain in right shoulder ICD-9: 719.41 ICD-10: M25.511 Active 02/22/2016 Unknown Polyneuropathy, unspecified ICD-9: 355.9 ICD-10: G62.9 Active 07/01/2016 Unknown Primary osteoarthritis, left shoulder ICD-9: 715.91 ICD-10: M19.012 Active 07/01/2016 Unknown Primary osteoarthritis, right shoulder ICD-9: 715.91 ICD-10: M19.011 Active 07/01/2016 Unknown Hematuria, unspecified ICD-9: 599.70 ICD-10: R31.9 Active 12/04/2014 Unknown Irritable bowel syndrome with diarrhea ICD-9: 564.1 ICD-10: K58.0 Active 09/15/2015 Unknown Other malaise ICD-9: 780.79 ICD-10: R53.81 Active 03/30/2017 Unknown Enterocolitis due to Clostridium difficile ICD-9: 008.45 ICD-10: A04.7 Active 10/07/2016 Unknown Diarrhea, unspecified ICD- 9: 787.91 ICD-10: R19.7 Active 07/23/2015 Unknown Urinary tract infection, site not specified ICD-9: 599.0 ICD-10: N39.0 Active 09/17/2015 Unknown Other insomnia ICD-9: 327.09 ICD-10: G47.09 Active 09/15/2015 Unknown Nausea ICD-9: 787.02 ICD-10: R11.0 Active 07/23/2015 Unknown Other pruritus ICD-9: 698.8 ICD-10: L29.8 Active 03/19/2015 Unknown Rash and other nonspecific skin eruption ICD-9: 782.1 ICD-10: R21 Active 03/19/2015 Unknown Umbilical hernia without obstruction or gangrene ICD-9: 553.1 ICD-10: K42.9 Active 01/12/2015 Unknown Encounter for immunization ICD-9: V04.81 ICD-10: Z23 Active 12/30/2014 Unknown Iron deficiency anemia, unspecified ICD-9: 280.9 ICD-10: D50.9 Active 12/04/2014 Unknown ANEMIA ICD-9: 285.9 Active 10/02/2014 Unknown SHORTNESS OF BREATH ICD- 9: 786.05 Active 10/02/2014 Unknown MALAISE AND FATIGUE ICD- 9: 780.79 Active 09/14/2014 Unknown Chronic back pain ICD-9: 724.5 Active 09/04/2014 Unknown UTI ICD-9: 599.0 Active 09/04/2014 Unknown cauda equina Unknown Active 07/04/2014 Unknown Coronary Artery Disease Unknown Active 07/04/2014 Unknown Hyperlipidemia Unknown Active 07/04/2014 Unknown Hypertension Unknown Active 07/04/2014 Unknown neuropathy Unknown Active 07/04/2014 Unknown Peripheral vascular disease Unknown Active 07/04/2014 Unknown Prostate Cancer Unknown Active 07/04/2014 Unknown reflux Unknown Active 07/04/2014 Unknown renal insufficiency Unknown Active 07/04/2014 Unknown sleep apnea Unknown Active 07/04/2014 Unknown Stroke Unknown Active 07/04/2014 Unknown Cauda equina syndrome ICD- 9: 344.60 Active 07/03/2014 Unknown COPD (chronic obstructive pulmonary disease) ICD-9: 496 Active 07/03/2014 Unknown ESSENTIAL HYPERTENSION ICD-9: 401.9 Active 07/03/2014 Unknown History of prostate cancer ICD-9: V10.46 Active 07/03/2014 Unknown Hyperlipidemia ICD-9: 272.4 Active 07/03/2014 Unknown THRUSH ICD-9: 112.0 Active 07/03/2014 Unknown Problems Condition Codes Effective Dates Condition Status Interstitial pulmonary disease, unspecified ICD-9: 515 ICD-10: J84.9 07/06/2018 Active Shortness of breath ICD- 9: 786.05 ICD-10: R06.02 02/22/2016 Active Acute on chronic combined systolic (congestive) and diastolic (congestive) heart failure ICD-9: 428.43 ICD-10: I50.43 05/22/2018 Active Essential (primary) hypertension ICD-9: 401.9 ICD-10: I10 09/15/2015 Active Anemia, unspecified ICD- 9: 285.9 ICD-10: D64.9 05/24/2018 Active Pneumonia due to other specified bacteria ICD-9: 482.81 ICD-10: J15.8 05/22/2018 Active Cough ICD-9: 786.2 ICD-10: R05 10/07/2016 Active Other acute sinusitis ICD- 9: 461.8 ICD-10: J01.80 04/20/2018 Active Other allergic rhinitis ICD-9: 477.8 ICD-10: J30.89 04/20/2018 Active Dysuria ICD-9: 788.1 ICD-10: R30.0 03/30/2017 Active Other iron deficiency anemias ICD-9: 280.1 ICD-10: D50.8 03/19/2015 Active Weakness ICD-9: 780.79 ICD-10: R53.1 02/22/2016 Active Candidal stomatitis ICD- 9: 112.0 ICD-10: B37.0 08/15/2017 Active Generalized anxiety disorder ICD-9: 300.00 ICD-10: F41.1 08/15/2017 Active Major depressive disorder, single episode, moderate ICD-9: 296.22 ICD-10: F32.1 08/15/2017 Active Other lesions of oral mucosa ICD-9: 528.9 ICD-10: K13.79 08/15/2017 Active Bilateral primary osteoarthritis of knee ICD-9: 715.96 ICD-10: M17.0 07/01/2016 Active Cauda equina syndrome ICD- 9: 344.60 ICD-10: G83.4 03/19/2015 Active Drug induced constipation ICD-9: 564.09 ICD-10: K59.03 07/01/2016 Active Pain in right shoulder ICD-9: 719.41 ICD-10: M25.511 02/22/2016 Active Polyneuropathy, unspecified ICD-9: 355.9 ICD-10: G62.9 07/01/2016 Active Primary osteoarthritis, left shoulder ICD-9: 715.91 ICD-10: M19.012 07/01/2016 Active Primary osteoarthritis, right shoulder ICD-9: 715.91 ICD-10: M19.011 07/01/2016 Active Hematuria, unspecified ICD-9: 599.70 ICD-10: R31.9 12/04/2014 Active Irritable bowel syndrome with diarrhea ICD-9: 564.1 ICD-10: K58.0 09/15/2015 Active Other malaise ICD-9: 780.79 ICD-10: R53.81 03/30/2017 Active Enterocolitis due to Clostridium difficile ICD-9: 008.45 ICD-10: A04.7 10/07/2016 Active Diarrhea, unspecified ICD- 9: 787.91 ICD-10: R19.7 07/23/2015 Active Urinary tract infection, site not specified ICD-9: 599.0 ICD-10: N39.0 09/17/2015 Active Other insomnia ICD-9: 327.09 ICD-10: G47.09 09/15/2015 Active Nausea ICD-9: 787.02 ICD-10: R11.0 07/23/2015 Active Other pruritus ICD-9: 698.8 ICD-10: L29.8 03/19/2015 Active Rash and other nonspecific skin eruption ICD-9: 782.1 ICD-10: R21 03/19/2015 Active Umbilical hernia without obstruction or gangrene ICD-9: 553.1 ICD-10: K42.9 01/12/2015 Active Encounter for immunization ICD-9: V04.81 ICD-10: Z23 12/30/2014 Active Iron deficiency anemia, unspecified ICD-9: 280.9 ICD-10: D50.9 12/04/2014 Active ANEMIA ICD-9: 285.9 10/02/2014 Active SHORTNESS OF BREATH ICD- 9: 786.05 10/02/2014 Active MALAISE AND FATIGUE ICD- 9: 780.79 09/14/2014 Active Chronic back pain ICD-9: 724.5 09/04/2014 Active UTI ICD-9: 599.0 09/04/2014 Active cauda equina Unknown 07/04/2014 Active Coronary Artery Disease Unknown 07/04/2014 Active Hyperlipidemia Unknown 07/04/2014 Active Hypertension Unknown 07/04/2014 Active neuropathy Unknown 07/04/2014 Active Peripheral vascular disease Unknown 07/04/2014 Active Prostate Cancer Unknown 07/04/2014 Active reflux Unknown 07/04/2014 Active renal insufficiency Unknown 07/04/2014 Active sleep apnea Unknown 07/04/2014 Active Stroke Unknown 07/04/2014 Active Cauda equina syndrome ICD- 9: 344.60 07/03/2014 Active COPD (chronic obstructive pulmonary disease) ICD-9: 496 07/03/2014 Active ESSENTIAL HYPERTENSION ICD-9: 401.9 07/03/2014 Active History of prostate cancer ICD-9: V10.46 07/03/2014 Active Hyperlipidemia ICD-9: 272.4 07/03/2014 Active THRUSH ICD-9: 112.0 07/03/2014 Active Medications Medication Codes Instructions Start Date Stop Date Status Fill Instructions Cymbalta 30 mg capsule,delayed release RxNorm: 360139 2 Capsule(s) PO daily 07/11/2018 07/05/2019 Active Cymbalta 30 mg capsule,delayed release RxNorm: 528336 2 Capsule(s) PO daily 07/03/2018 07/10/2018 Inactive oxycodone 5 mg tablet RxNorm: 0780546 4 Tablet(s) PO daily 06/27/2018 09/09/2018 Active doxycycline hyclate 100 mg tablet RxNorm: 3275187 1 Tablet(s) PO BID 06/01/2018 06/10/2018 Inactive doxycycline hyclate 100 mg tablet RxNorm: 6810702 1 Tablet(s) PO BID 06/01/2018 05/31/2018 Inactive Zithromax Z-Win 250 mg tablet RxNorm: 252704 Tablet(s) PO UD 05/22/2018 No Stop Date Active albuterol sulfate 2.5 mg/3 mL (0.083 %) solution for nebulization RxNorm: 215369 3 Milliliter(s) INH UD 05/22/2018 No Stop Date Active cefdinir 300 mg capsule RxNorm: 965263 1 Capsule(s) PO BID 05/22/2018 05/31/2018 Inactive ceftriaxone 500 mg solution for injection RxNorm: 3775049 2 Milliliter(s) Inj 05/22/2018 05/22/2018 Inactive diclofenac sodium 75 mg tablet,delayed release RxNorm: 474129 1 TABLET(S) PO BID 05/14/2018 02/07/2019 Active gabapentin 600 mg tablet RxNorm: 086752 TABLET(S) TAKE 1 TABLET BY MOUTH TWICE DAILY 04/23/2018 04/17/2019 Active prednisone 20 mg tablet RxNorm: 232436 2 Tablet(s) PO daily 04/20/2018 04/24/2018 Inactive Kenalog 40 mg/mL suspension for injection RxNorm: 9869216 Milliliter(s) Inj 04/20/2018 04/20/2018 Inactive Augmentin 500 mg-125 mg tablet RxNorm: 870494 1 Tablet(s) PO TID 04/20/2018 04/26/2018 Inactive oxycodone 5 mg tablet RxNorm: 4145780 4 Tablet(s) PO daily 04/12/2018 06/25/2018 Inactive potassium chloride ER 20 mEq tablet,extended release RxNorm: 102976 1 TABLET(S) PO DAILY 03/09/2018 03/03/2019 Active oxycodone 5 mg tablet RxNorm: 8899968 4 Tablet(s) PO daily 01/18/2018 04/02/2018 Inactive Augmentin 500 mg-125 mg tablet RxNorm: 800190 1 Tablet(s) PO TID 12/14/2017 12/23/2017 Inactive take probiotic bid x 10 days pantoprazole 40 mg tablet,delayed release RxNorm: 834350 TAKE 1 TABLET BY MOUTH DAILY 12/11/2017 12/05/2018 Active Augmentin 500 mg-125 mg tablet RxNorm: 545910 1 Tablet(s) PO TID 11/17/2017 11/22/2017 Inactive take probiotic bid x 7 days lisinopril 40 mg tablet RxNorm: 539375 TAKE 1 TABLET BY MOUTH DAILY 11/06/2017 08/02/2018 Active oxycodone 5 mg tablet RxNorm: 5480964 4 Tablet(s) PO daily 10/16/2017 12/29/2017 Inactive Cymbalta 30 mg capsule,delayed release RxNorm: 781088 2 Capsule(s) PO daily 08/17/2017 02/12/2018 Inactive Zoloft 25 mg tablet RxNorm: 504962 1 TABLET(S) PO DAILY X 5 DAYS THEN INCREASE TO 50MG DAILY 08/16/2017 No Stop Date Active Cymbalta 30 mg capsule,delayed release RxNorm: 922607 1 Capsule(s) PO 1 CAPSULE(S) PO DAILY X 1 WEEK, THEN INCREASE TO 2 DAILY 08/15/2017 08/16/2017 Inactive Patient requests 90 days supply diclofenac sodium 75 mg tablet,delayed release RxNorm: 587711 1 TABLET(S) PO BID 08/14/2017 05/10/2018 Inactive oxycodone 5 mg tablet RxNorm: 4487987 4 Tablet(s) PO daily 08/01/2017 10/14/2017 Inactive valacyclovir 1 gram tablet RxNorm: 368312 1 Tablet(s) PO TID 07/12/2017 07/11/2017 Inactive Zoloft 50 mg tablet RxNorm: 828702 1 Tablet(s) PO daily 07/12/2017 08/01/2017 Inactive valacyclovir 1 gram tablet RxNorm: 484615 1 Tablet(s) PO TID 07/12/2017 07/18/2017 Inactive Zoloft 50 mg tablet RxNorm: 192122 1 Tablet(s) PO daily 07/12/2017 07/11/2017 Inactive Zoloft 25 mg tablet RxNorm: 477862 1 Tablet(s) PO daily x 5 days then increase to 50mg daily 07/11/2017 07/11/2017 Inactive Cymbalta 30 mg capsule,delayed release RxNorm: 731404 1 Capsule(s) PO daily x 1 week, then increase to 2 daily 06/30/2017 06/29/2017 Inactive Cymbalta 30 mg capsule,delayed release RxNorm: 442774 1 CAPSULE(S) PO DAILY X 1 WEEK, THEN INCREASE TO 2 DAILY 06/30/2017 07/04/2017 Inactive Patient requests 90 days supply Augmentin 875 mg-125 mg tablet RxNorm: 235428 1 Tablet(s) PO BID 05/22/2017 05/28/2017 Inactive Probiotic QID while on antibiotics Bactrim DS 800 mg-160 mg tablet RxNorm: 539072 1 Tablet(s) PO BID 05/22/2017 05/21/2017 Inactive Probiotic QID while on antibiotics Bactrim DS 800 mg-160 mg tablet RxNorm: 643178 1 Tablet(s) PO BID 05/22/2017 05/28/2017 Inactive Probiotic QID while on antibiotics Augmentin 875 mg-125 mg tablet RxNorm: 819529 1 Tablet(s) PO BID 05/22/2017 05/21/2017 Inactive Probiotic QID while on antibiotics Cipro 500 mg tablet RxNorm: 490937 1 Tablet(s) PO BID 04/21/2017 04/30/2017 Inactive Take probiotic while on ABT Cipro 500 mg tablet RxNorm: 998215 1 Tablet(s) PO BID 04/21/2017 04/20/2017 Inactive Diflucan 150 mg tablet RxNorm: 936598 1 Tablet(s) PO daily 04/19/2017 11/13/2017 Inactive Diflucan 150 mg tablet RxNorm: 738056 1 Tablet(s) PO daily 04/19/2017 04/18/2017 Inactive oxycodone 5 mg tablet RxNorm: 4243040 4 Tablet(s) PO daily 04/17/2017 06/30/2017 Inactive gabapentin 600 mg tablet RxNorm: 284391 TABLET(S) TAKE 1 TABLET BY MOUTH TWICE DAILY 04/14/2017 04/08/2018 Inactive Rocephin 1 gram solution for injection RxNorm: 862538 1 Inj daily 04/05/2017 04/11/2017 Inactive Rocephin 1 gram solution for injection RxNorm: 304611 1 Inj daily 04/04/2017 04/04/2017 Inactive lidocaine (PF) 10 mg/mL (1 %) injection solution RxNorm: 0104422 1 Milliliter(s) Inj daily 04/04/2017 04/10/2017 Inactive Use to administer rocephin lidocaine (PF) 10 mg/mL (1 %) injection solution RxNorm: 4085094 1 Milliliter(s) Inj daily 04/04/2017 04/03/2017 Inactive Use to administer rocephin Rocephin 1 gram solution for injection RxNorm: 298205 1 Inj daily 04/04/2017 04/03/2017 Inactive Augmentin 500 mg-125 mg tablet RxNorm: 484062 1 Tablet(s) PO TID 03/31/2017 04/03/2017 Inactive Augmentin 500 mg-125 mg tablet RxNorm: 875505 1 Tablet(s) PO TID 03/31/2017 03/30/2017 Inactive Effexor XR 75 mg capsule,extended release RxNorm: 641831 TAKE 3 CAPSULES BY MOUTH EVERY MORNING 03/24/2017 11/13/2017 Inactive potassium chloride ER 20 mEq tablet,extended release RxNorm: 621333 1 TABLET(S) PO DAILY 03/13/2017 03/07/2018 Inactive lisinopril 40 mg tablet RxNorm: 513188 TAKE 1 TABLET BY MOUTH DAILY 02/06/2017 11/02/2017 Inactive pantoprazole 40 mg tablet,delayed release RxNorm: 666137 TAKE 1 TABLET BY MOUTH DAILY 12/19/2016 12/10/2017 Inactive oxycodone 5 mg tablet RxNorm: 2381245 4 Tablet(s) PO daily 12/19/2016 03/03/2017 Inactive diclofenac sodium 75 mg tablet,delayed release RxNorm: 075804 1 TABLET(S) PO BID 11/17/2016 08/13/2017 Inactive gabapentin 600 mg tablet RxNorm: 757919 TABLET(S) TAKE 1 TABLET BY MOUTH TWICE DAILY 10/14/2016 04/11/2017 Inactive Flagyl 500 mg tablet RxNorm: 901939 1 Tablet(s) PO TID 10/07/2016 10/16/2016 Inactive oxycodone 5 mg tablet RxNorm: 4005299 4 Tablet(s) PO daily 10/03/2016 12/16/2016 Inactive Effexor XR 75 mg capsule,extended release RxNorm: 669342 TAKE 3 CAPSULES BY MOUTH EVERY MORNING 09/22/2016 11/20/2016 Inactive Patient requests 90 days supply lisinopril 40 mg tablet RxNorm: 317987 TAKE 1 TABLET BY MOUTH DAILY 08/01/2016 01/27/2017 Inactive Effexor XR 75 mg capsule,extended release RxNorm: 576370 TAKE 3 CAPSULES BY MOUTH EVERY MORNING 07/21/2016 09/21/2016 Inactive oxycodone 5 mg tablet RxNorm: 2168664 4 Tablet(s) PO daily 07/11/2016 09/23/2016 Inactive Movantik 25 mg tablet RxNorm: 5025171 1 Tablet(s) PO daily 07/01/2016 11/13/2017 Inactive potassium chloride ER 20 mEq tablet,extended release RxNorm: 046711 1 TABLET(S) PO DAILY 06/14/2016 03/10/2017 Inactive Flagyl 500 mg tablet RxNorm: 826103 1 Tablet(s) PO TID 06/03/2016 06/12/2016 Inactive Flagyl 500 mg tablet RxNorm: 162573 1 Tablet(s) PO TID 06/03/2016 06/02/2016 Inactive oxycodone 5 mg tablet RxNorm: 1685671 4 Tablet(s) PO daily 04/27/2016 07/10/2016 Inactive Tamiflu 75 mg capsule RxNorm: 955801 1 Capsule(s) PO daily 04/19/2016 04/28/2016 Inactive Tamiflu 75 mg capsule RxNorm: 386813 1 Capsule(s) PO daily 04/19/2016 04/18/2016 Inactive Effexor XR 75 mg capsule,extended release RxNorm: 152524 TAKE 3 CAPSULES BY MOUTH EVERY MORNING 02/18/2016 04/17/2016 Inactive diclofenac sodium 75 mg tablet,delayed release RxNorm: 611688 1 TABLET(S) PO BID 02/18/2016 11/13/2016 Inactive Effexor XR 75 mg capsule,extended release RxNorm: 147863 Capsule(s) TAKE 3 CAPSULES BY MOUTH EVERY MORNING 02/17/2016 08/14/2016 Inactive oxycodone 5 mg tablet RxNorm: 3439141 4 Tablet(s) PO daily 02/04/2016 04/26/2016 Inactive clopidogrel 75 mg tablet RxNorm: 708250 1 TABLET(S) PO QAM 02/01/2016 01/25/2017 Inactive gabapentin 600 mg tablet RxNorm: 637254 Tablet(s) TAKE 1 TABLET BY MOUTH TWICE DAILY 02/01/2016 10/13/2016 Inactive Effexor XR 75 mg capsule,extended release RxNorm: 450402 TAKE 3 CAPSULES BY MOUTH EVERY MORNING 01/11/2016 02/09/2016 Inactive pantoprazole 40 mg tablet,delayed release RxNorm: 102925 TAKE 1 TABLET BY MOUTH DAILY 12/22/2015 12/15/2016 Inactive Effexor XR 75 mg capsule,extended release RxNorm: 417194 TAKE 3 CAPSULES BY MOUTH EVERY MORNING 11/16/2015 01/14/2016 Inactive lisinopril 40 mg tablet RxNorm: 479526 TAKE 1 TABLET BY MOUTH DAILY 11/05/2015 07/31/2016 Inactive Effexor XR 75 mg capsule,extended release RxNorm: 153703 TAKE 3 CAPSULES BY MOUTH EVERY MORNING 09/22/2015 11/20/2015 Inactive Augmentin 500 mg-125 mg tablet RxNorm: 645970 1 Tablet(s) PO TID 09/18/2015 09/24/2015 Inactive Anoro Ellipta 62.5 mcg-25 mcg/actuation powder for inhalation RxNorm: 4206865 1 INH daily 08/20/2015 02/15/2016 Inactive Anoro Ellipta 62.5 mcg-25 mcg/actuation powder for inhalation RxNorm: 8933002 1 INH DAILY 08/20/2015 11/13/2017 Inactive lisinopril 40 mg tablet RxNorm: 407789 TAKE 1 TABLET BY MOUTH DAILY 08/10/2015 11/04/2015 Inactive gabapentin 600 mg tablet RxNorm: 283965 TAKE 1 TABLET BY MOUTH TWICE DAILY 08/10/2015 01/31/2016 Inactive terazosin 2 mg capsule RxNorm: 850769 TAKE ONE CAPSULE BY MOUTH EVERY DAY 07/27/2015 08/29/2016 Inactive hyoscyamine 0.125 mg sublingual tablet RxNorm: 3551443 1 Tablet(s) SL TID as needed 07/24/2015 08/02/2015 Inactive metronidazole 500 mg tablet RxNorm: 220529 1 Tablet(s) PO TID 07/24/2015 07/30/2015 Inactive Effexor XR 75 mg capsule,extended release RxNorm: 979629 TAKE 3 CAPSULES BY MOUTH EVERY MORNING 07/23/2015 09/20/2015 Inactive oxycodone 5 mg tablet RxNorm: 6444163 4 Tablet(s) PO daily 06/26/2015 02/03/2016 Inactive potassium chloride ER 20 mEq tablet,extended release RxNorm: 786864 1 Tablet(s) PO daily 06/25/2015 06/13/2016 Inactive oxycodone 5 mg tablet RxNorm: 2732234 4 Tablet(s) PO daily 04/17/2015 06/25/2015 Inactive rx written Anoro Ellipta 62.5 mcg-25 mcg/actuation powder for inhalation RxNorm: 9059776 1 INH daily 04/17/2015 08/19/2015 Inactive potassium chloride ER 20 mEq tablet,extended release RxNorm: 967540 1 Tablet(s) PO daily 03/23/2015 06/24/2015 Inactive triamcinolone acetonide 0.1 % topical cream RxNorm: 2681414 1 Application TOP BID 03/20/2015 No Stop Date Active carvedilol 12.5 mg tablet RxNorm: 964494 1 TABLET(S) PO BID 02/23/2015 08/21/2015 Inactive diclofenac sodium 75 mg tablet,delayed release RxNorm: 042150 1 Tablet(s) PO BID 02/18/2015 02/12/2016 Inactive carvedilol 12.5 mg tablet RxNorm: 625496 1 Tablet(s) PO BID 02/17/2015 02/11/2016 Inactive furosemide 40 mg tablet RxNorm: 469693 1 Tablet(s) PO daily 02/17/2015 02/11/2016 Inactive lisinopril 40 mg tablet RxNorm: 368438 TAKE 1 TABLET BY MOUTH DAILY 02/16/2015 08/09/2015 Inactive ceftriaxone 1 gram solution for injection RxNorm: 8010813 1 Gram(s) Inj daily mix with lidocaine 01/14/2015 01/17/2015 Inactive please supply 4 bottles of 1gram rocephin IM with 1 bottle of lidocaine 1% for home health to administer to pt starting 01/15 ceftriaxone 1 gram solution for injection RxNorm: 1954930 1 Gram(s) Inj daily 01/14/2015 01/13/2015 Inactive please supply 4 bottles of 1gram rocephin IM with 1 bottle of lidocaine 1% for home health to administer to pt starting 01/15 Augmentin 500 mg-125 mg tablet RxNorm: 077461 1 Tablet(s) PO BID 01/13/2015 01/22/2015 Inactive Keflex 500 mg capsule RxNorm: 160073 1 Capsule(s) PO TID 12/12/2014 12/11/2014 Inactive Keflex 500 mg capsule RxNorm: 162450 1 Capsule(s) PO TID 12/12/2014 12/17/2014 Inactive Augmentin 500 mg-125 mg tablet RxNorm: 181947 1 Tablet(s) PO BID 11/28/2014 12/02/2014 Inactive Augmentin 500 mg-125 mg tablet RxNorm: 978218 1 Tablet(s) PO BID 11/28/2014 11/27/2014 Inactive Cipro 500 mg tablet RxNorm: 978638 1 Tablet(s) PO BID 11/24/2014 11/27/2014 Inactive gabapentin 600 mg tablet RxNorm: 810128 1 Tablet(s) PO BID 11/17/2014 08/13/2015 Inactive gabapentin 600 mg tablet RxNorm: 337613 1 Tablet(s) PO BID 11/17/2014 11/16/2014 Inactive oxycodone 5 mg tablet RxNorm: 2634112 4 Tablet(s) PO daily 11/07/2014 02/04/2015 Inactive rx written Effexor XR 75 mg capsule,extended release RxNorm: 862862 3 Capsule(s) 225 PO QAM 11/05/2014 03/04/2015 Inactive clopidogrel 75 mg tablet RxNorm: 327324 1 Tablet(s) PO QAM 11/05/2014 01/28/2016 Inactive Effexor XR 75 mg capsule,extended release RxNorm: 942184 3 Capsule(s) 225 PO QAM 11/03/2014 11/04/2014 Inactive carvedilol 12.5 mg tablet RxNorm: 702388 1 Tablet(s) PO BID 10/28/2014 02/16/2015 Inactive Effexor XR 75 mg capsule,extended release RxNorm: 247957 3 Capsule(s) 225 PO QAM 10/28/2014 11/02/2014 Inactive Effexor XR 75 mg capsule,extended release RxNorm: 296921 3 Capsule(s) 225 PO QAM 10/28/2014 10/27/2014 Inactive carvedilol 12.5 mg tablet RxNorm: 665709 1 Tablet(s) PO BID 10/28/2014 10/27/2014 Inactive ceftriaxone 1 gram solution for injection RxNorm: 3686596 Inj 09/05/2014 09/05/2014 Inactive Cipro 500 mg tablet RxNorm: 711901 1 Tablet(s) PO BID 09/04/2014 09/03/2014 Inactive Cipro 500 mg tablet RxNorm: 851977 1 Tablet(s) PO BID 09/04/2014 09/10/2014 Inactive oxycodone 5 mg tablet RxNorm: 3187278 4 Tablet(s) PO daily 08/20/2014 11/06/2014 Inactive rx written lisinopril 40 mg tablet RxNorm: 348704 TAKE 1 TABLET BY MOUTH DAILY 08/18/2014 02/13/2015 Inactive nystatin 100,000 unit/mL oral suspension RxNorm: 271983 5 Milliliter(s) PO QID 07/04/2014 07/13/2014 Inactive [SAVINGS FOR NON-COVERED DRUGS -- BIN:[id number], PCN: [id number], Group: [id number], ID# [id number], Questions: . THIS IS NOT INSURANCE.] WelChol 3.75 gram oral powder packet RxNorm: 076754 1 PO BID No Start Date Active amlodipine 10 mg tablet RxNorm: 462205 1 Tablet(s) PO QAM No Start Date Active One A Day oral RxNorm: 03981 oral No Start Date Active Vitamin D2 400 unit capsule RxNorm: 031904 1 Capsule(s) PO daily No Start Date Active aspirin 81 mg tablet,delayed release RxNorm: 081425 1 Tablet(s) PO daily No Start Date Active melatonin 5 mg disintegrating tablet RxNorm: 4555554 1 Tablet(s) PO QHS No Start Date Active Miralax 17 gram/dose oral powder RxNorm: 910033 17 Gram(s) PO daily in prune juice No Start Date Active clonidine HCl 0.1 mg tablet RxNorm: 691784 1 Tablet(s) PO QHS No Start Date Active hydrochlorothiazide oral RxNorm: 5487 oral No Start Date Active Lasix oral RxNorm: 374533 oral No Start Date 02/17/2015 Inactive potassium chloride 20 meq RxNorm: 996526 PO daily No Start Date 03/22/2015 Inactive Zoloft 25 mg tablet RxNorm: 841234 1 Tablet(s) PO daily x 5 days then increase to 50mg daily No Start Date 07/10/2017 Inactive oxycodone 5 mg tablet RxNorm: 1833395 3-4 Tablet(s) PO QHS No Start Date 08/19/2014 Inactive terazosin 2 mg capsule RxNorm: 610744 1 Capsule(s) PO daily No Start Date 07/26/2015 Inactive Effexor XR 75 mg capsule,extended release RxNorm: 365764 3 Capsule(s) 225 PO QAM No Start Date 10/27/2014 Inactive gabapentin 600 mg tablet RxNorm: 474760 1 Tablet(s) PO BID No Start Date 11/16/2014 Inactive pantoprazole 40 mg tablet,delayed release RxNorm: 817255 oral No Start Date 12/21/2015 Inactive Anoro Ellipta 62.5 mcg-25 mcg/actuation powder for inhalation RxNorm: 4276400 1 INH daily No Start Date 04/16/2015 Inactive diclofenac sodium 75 mg tablet,delayed release RxNorm: 082241 1 Tablet(s) PO BID No Start Date 02/17/2015 Inactive clopidogrel 75 mg tablet RxNorm: 106417 1 Tablet(s) PO QAM No Start Date 11/04/2014 Inactive lisinopril 40 mg tablet RxNorm: 346170 1 Tablet(s) PO daily No Start Date 08/17/2014 Inactive carvedilol 12.5 mg tablet RxNorm: 089160 1 Tablet(s) PO BID No Start Date 10/27/2014 Inactive Medication Administered Medication Codes Instructions Start Date Status ceftriaxone 500 mg solution for injection RxNorm: 4335133 2Milliliter 05/22/2018 No longer Active Kenalog 40 mg/mL suspension for injection RxNorm: 5929313 Milliliter 04/20/2018 No longer Active ceftriaxone 1 gram solution for injection RxNorm: 5843532 09/05/2014 No longer Active Immunizations Vaccine Codes Date Status Influenza CVX: 141 12/31/2014 completed Assessments Condition Codes Effective Dates Interstitial pulmonary disease, unspecified ICD-10: J84.9 ICD-9: 515 07/06/2018 Shortness of breath ICD-10: R06.02 ICD-9: 786.05 07/06/2018 Acute on chronic combined systolic (congestive) and diastolic (congestive) heart failure ICD-10: I50.43 ICD-9: 428.43 05/25/2018 Essential (primary) hypertension ICD-10: I10 ICD-9: 401.9 05/25/2018 Anemia, unspecified ICD-10: D64.9 ICD-9: 285.9 05/24/2018 Pneumonia due to other specified bacteria ICD-10: J15.8 ICD-9: 482.81 05/22/2018 Other acute sinusitis ICD-10: J01.80 ICD-9: 461.8 04/20/2018 Cough ICD-10: R05 ICD-9: 786.2 04/20/2018 Other allergic rhinitis ICD-10: J30.89 ICD-9: 477.8 04/20/2018 Dysuria ICD-10: R30.0 ICD-9: 788.1 12/14/2017 Other iron 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 ICD-9: 280.1 11/14/2017 Weakness ICD-10: R53.1 ICD-9: 780.79 11/14/2017 Generalized anxiety disorder ICD-10: F41.1 ICD-9: 300.00 08/15/2017 Other lesions of oral mucosa ICD-10: K13.79 ICD-9: 528.9 08/15/2017 Candidal stomatitis ICD-10: B37.0 ICD-9: 112.0 08/15/2017 Major depressive disorder, single episode, moderate ICD-10: F32.1 ICD-9: 296.22 08/15/2017 Cauda equina syndrome ICD-10: G83.4 ICD-9: 344.60 06/29/2017 Hematuria, unspecified ICD-10: R31.9 ICD-9: 599.70 05/15/2017 Other malaise ICD-10: R53.81 ICD-9: 780.79 03/30/2017 Enterocolitis due to Clostridium difficile ICD-10: A04.7 ICD-9: 008.45 10/07/2016 Bilateral primary osteoarthritis of knee ICD-10: M17.0 ICD-9: 715.96 07/01/2016 Primary osteoarthritis, right shoulder ICD-10: M19.011 ICD-9: 715.91 07/01/2016 Polyneuropathy, unspecified ICD-10: G62.9 ICD-9: 355.9 07/01/2016 Pain in right shoulder ICD-10: M25.511 ICD-9: 719.41 07/01/2016 Drug induced constipation ICD-10: K59.03 ICD-9: 564.09 07/01/2016 Primary osteoarthritis, left shoulder ICD-10: M19.012 ICD-9: 715.91 07/01/2016 Diarrhea, unspecified ICD-10: R19.7 ICD-9: 787.91 06/03/2016 Irritable bowel syndrome with diarrhea ICD-10: K58.0 ICD-9: 564.1 05/05/2016 Urinary tract infection, site not specified ICD-10: N39.0 ICD-9: 599.0 09/18/2015 Other insomnia ICD-10: G47.09 ICD-9: 327.09 09/16/2015 Nausea ICD-10: R11.0 ICD-9: 787.02 07/24/2015 Rash and other nonspecific skin eruption ICD-10: R21 ICD-9: 782.1 03/20/2015 Other pruritus ICD-10: L29.8 ICD-9: 698.8 03/20/2015 Umbilical hernia without obstruction or gangrene ICD-10: K42.9 ICD-9: 553.1 01/13/2015 Encounter for immunization ICD-10: Z23 ICD-9: V04.81 12/31/2014 Iron deficiency anemia, unspecified ICD-10: D50.9 ICD-9: 280.9 12/05/2014 SHORTNESS OF BREATH ICD-9: 786.05 10/03/2014 COPD (chronic obstructive pulmonary disease) ICD-9: 496 10/03/2014 ANEMIA ICD-9: 285.9 10/03/2014 ESSENTIAL HYPERTENSION ICD-9: 401.9 10/03/2014 MALAISE AND FATIGUE ICD-9: 780.79 09/15/2014 UTI ICD-9: 599.0 09/05/2014 Chronic back pain ICD-9: 724.5 09/05/2014 Hyperlipidemia ICD-9: 272.4 07/04/2014 History of prostate cancer ICD-9: V10.46 07/04/2014 Cauda equina syndrome ICD-9: 344.60 07/04/2014 THRUSH ICD-9: 112.0 07/04/2014 Reason For Visit Reason For Visit Effective Dates Notes shortness of breath 07/06/2018 cough 05/25/2018 Hospital Follow Up 05/22/2018 sinus congestion 04/20/2018 fatigue 11/14/2017 oral pain 08/15/2017 depression 06/29/2017 muscle weakness 03/30/2017 cough 10/07/2016 back pain 07/01/2016 pre-op/surgery consult 05/05/2016 shoulder pain 02/23/2016 shortness of breath 09/16/2015 diarrhea 07/24/2015 rash 03/20/2015 sinus congestion 01/13/2015 vaccination against influenza 12/31/2014 hypertension 12/05/2014 hypertension 10/03/2014 hypertension 09/15/2014 urinary frequency 09/05/2014 hypertension 07/04/2014 c/o oral burning ? thrush Results Observation Observation Code Item Item Code Result Date Tibc Ord40 Iron 20 ug/dl 05/24/2018 Tibc Ord40 UIBC 296 ug/dL 05/24/2018 Tibc Ord40 TIBC 316 ug/dL 05/24/2018 Tibc Ord40 Fe-%Sat 6.3 % 05/24/2018 Ferritin Ord22 FERRITIN 56.2 ng/mL 05/24/2018 Cbc With Differential Ord2 WBC 9.77 K/ul 05/22/2018 Cbc With Differential Ord2 RBC 3.21 M/ul 05/22/2018 Cbc With Differential Ord2 HGB 9.3 g/dl 05/22/2018 Cbc With Differential Ord2 HCT 29.9 % 05/22/2018 Cbc With Differential Ord2 Neut% 60.4 % 05/22/2018 Cbc With Differential Ord2 MCV 93.1 fl 05/22/2018 Cbc With Differential Ord2 Lymph% 20.6 % 05/22/2018 Cbc With Differential Ord2 [place]% 14.7 % 05/22/2018 Cbc With Differential Ord2 MCH 29.0 pg 05/22/2018 Cbc With Differential Ord2 MCHC 31.1 pg 05/22/2018 Cbc With Differential Ord2 Eos% 3.9 % 05/22/2018 Cbc With Differential Ord2 PLT 450 K/ul 05/22/2018 Cbc With Differential Ord2 Baso% 0.4 % 05/22/2018 Cbc With Differential Ord2 RDW 16.7 % 05/22/2018 Cbc With Differential Ord2 Neut ABS# 5.90 K/ul 05/22/2018 Cbc With Differential Ord2 Lymph ABS# 2.01 K/ul 05/22/2018 Cbc With Differential Ord2 [place] ABS# 1.4 K/ul 05/22/2018 Cbc With Differential Ord2 Eos ABS# 0.4 K/ul 05/22/2018 Cbc With Differential Ord2 Baso ABS# 0.0 K/ul 05/22/2018 Comp Metabolic Wnd924 NA 136 mEq/L 05/22/2018 Comp Metabolic Jgk136 K 4.7 mEq/L 05/22/2018 Comp Metabolic Vls347 CL 104 mEq/L 05/22/2018 Comp Metabolic Lnh325 CO2 23.0 mEq/L 05/22/2018 Comp Metabolic Elx173 ANION GAP 14 05/22/2018 Comp Metabolic Dqm240 GLUCOSE 113 mg/dL 05/22/2018 Comp Metabolic Qkg956 Creat 1.6 mg/dL 05/22/2018 Comp Metabolic Hqf312 eGFR 46 ml/min/1.73m2 05/22/2018 Comp Metabolic Mbd063 BUN 21 mg/dL 05/22/2018 Comp Metabolic Cej583 B/C Ratio 13.5 Ratio 05/22/2018 Comp Metabolic Vln344 CALCIUM 8.6 mg/dL 05/22/2018 Comp Metabolic Hts799 ALK PHOS 84 U/L 05/22/2018 Comp Metabolic Ftq783 AST(SGOT) 17 U/L 05/22/2018 Comp Metabolic Agv323 ALT(SGPT) 22 U/L 05/22/2018 Comp Metabolic Dwv433 BILI T 0.5 mg/dL 05/22/2018 Comp Metabolic Ggj811 ALBUMIN 3.4 g/dL 05/22/2018 Comp Metabolic Cgv455 TPRO 6.6 g/dL 05/22/2018 Comp Metabolic Lcp625 GLOB 3.2 g/dL 05/22/2018 Comp Metabolic Rfe046 A/G Ratio 1.0 Ratio 05/22/2018 Comp Metabolic Lhu650 Osmo 276 mOsmo 05/22/2018 B Type Natriuretic Peptide Fms2613 B-PINMAKER 258.00 pg/ml 05/22/2018 Magnesium Ord90 Mag 2.3 mg/dL 05/22/2018 Urine Culture Ucult Complete >100,000 col/ml aerobic growth sent to ref lab 12/15/2017 Lipid Ord30 CHOL 128 mg/dL 11/14/2017 Lipid Ord30 HDL 24.0 mg/dl 11/14/2017 Lipid Ord30 TRIG 206 mg/dL 11/14/2017 Lipid Ord30 LDL 63 mg/dL 11/14/2017 Lipid Ord30 C/HDL 5.3 Ratio 11/14/2017 Tsh Ord6 TSH (3rd IS) 3.24 uIU/mL 11/14/2017 Comp Metabolic Edq766 NA 137 mEq/L 11/14/2017 Comp Metabolic Mtd401 K 4.0 mEq/L 11/14/2017 Comp Metabolic Auk533 CL 104 mEq/L 11/14/2017 Comp Metabolic Ygl964 CO2 23.0 mEq/L 11/14/2017 Comp Metabolic Ouz671 ANION GAP 14 11/14/2017 Comp Metabolic Ehb726 GLUCOSE 101 mg/dL 11/14/2017 Comp Metabolic Xwf429 Creat 1.1 mg/dL 11/14/2017 Comp Metabolic Eaw752 eGFR 67 ml/min/1.73m2 11/14/2017 Comp Metabolic Wdw169 BUN 18 mg/dL 11/14/2017 Comp Metabolic Cxp768 B/C Ratio 15.9 Ratio 11/14/2017 Comp Metabolic Odh095 CALCIUM 9.0 mg/dL 11/14/2017 Comp Metabolic Geu590 ALK PHOS 81 U/L 11/14/2017 Comp Metabolic Unf673 AST(SGOT) 19 U/L 11/14/2017 Comp Metabolic Fws582 ALT(SGPT) 18 U/L 11/14/2017 Comp Metabolic Fey421 BILI T 0.3 mg/dL 11/14/2017 Comp Metabolic Jpe478 ALBUMIN 3.8 g/dL 11/14/2017 Comp Metabolic Vwo688 TPRO 7.3 g/dL 11/14/2017 Comp Metabolic Dab317 GLOB 3.5 g/dL 11/14/2017 Comp Metabolic Fmo712 A/G Ratio 1.1 Ratio 11/14/2017 Comp Metabolic Hcm810 Osmo 276 mOsmo 11/14/2017 Cbc With Differential Ord2 WBC 8.56 K/ul 11/14/2017 Cbc With Differential Ord2 RBC 3.45 M/ul 11/14/2017 Cbc With Differential Ord2 HGB 10.3 g/dl 11/14/2017 Cbc With Differential Ord2 HCT 32.4 % 11/14/2017 Cbc With Differential Ord2 Neut% 60.3 % 11/14/2017 Cbc With Differential Ord2 MCV 93.9 fl 11/14/2017 Cbc With Differential Ord2 Lymph% 21.6 % 11/14/2017 Cbc With Differential Ord2 MCH 29.9 pg 11/14/2017 Cbc With Differential Ord2 [place]% 11.2 % 11/14/2017 Cbc With Differential Ord2 MCHC 31.8 pg 11/14/2017 Cbc With Differential Ord2 Eos% 6.7 % 11/14/2017 Cbc With Differential Ord2 PLT 376 K/ul 11/14/2017 Cbc With Differential Ord2 Baso% 0.2 % 11/14/2017 Cbc With Differential Ord2 RDW 16.0 % 11/14/2017 Cbc With Differential Ord2 Neut ABS# 5.16 K/ul 11/14/2017 Cbc With Differential Ord2 Lymph ABS# 1.85 K/ul 11/14/2017 Cbc With Differential Ord2 [place] ABS# 1.0 K/ul 11/14/2017 Cbc With Differential Ord2 Eos ABS# 0.6 K/ul 11/14/2017 Cbc With Differential Ord2 Baso ABS# 0.0 K/ul 11/14/2017 Culture Urine [id number] URINE CULTURE SEE NOTES 05/22/2017 Culture Urine [id number] Continued Results 05/22/2017 Urine Culture Ucult Complete >100,000 col/ml aerobic growth sent to ref lab 05/16/2017 Culture Urine [id number] URINE CULTURE SEE NOTES 04/21/2017 Urine Culture Ucult Complete >100,000 col/ml aerobic growth sent to ref lab 04/19/2017 Urinalysis Ord28 U-Color Yellow 04/18/2017 Urinalysis Ord28 U-Clarity Cloudy 04/18/2017 Urinalysis Ord28 U-Gluc Negative 04/18/2017 Urinalysis Ord28 U-Bili Negative 04/18/2017 Urinalysis Ord28 U-Ketone Negative 04/18/2017 Urinalysis Ord28 U-SG 1.010 04/18/2017 Urinalysis Ord28 U-Blood Moderate 04/18/2017 Urinalysis Ord28 U-pH 5.5 04/18/2017 Urinalysis Ord28 U-Protein 30 mg/dL 04/18/2017 Urinalysis Ord28 U-Urobilin 0.2 E.U./dL E.U./dL 04/18/2017 Urinalysis Ord28 U-Nitrites Negative 04/18/2017 Urinalysis Ord28 U-Leuk Moderate 04/18/2017 Urinalysis Ord28 U-Bact 1+ 04/18/2017 Urinalysis Ord28 U-Squamous Epi None per/HPF 04/18/2017 Urinalysis Ord28 U-Crystal None per/HPF 04/18/2017 Urinalysis Ord28 U-Mucus None 04/18/2017 Urinalysis Ord28 U-Renal tubular epi None 04/18/2017 Urinalysis Ord28 U-RBC 40-50 per/HPF 04/18/2017 Urinalysis Ord28 U-Transitional epi None per/HPF 04/18/2017 Urinalysis Ord28 U-WBC TNTC per/HPF 04/18/2017 Urinalysis Ord28 U-Cast None per/HPF 04/18/2017 Urinalysis Ord28 U-VOL VOLUME SUFFICIENT (10mL) 04/18/2017 Urinalysis Ord28 U-Com Culture to follow 04/18/2017 Urinalysis Ord28 U-Yeast BUDDING YEAST PRESENT 04/18/2017 Urine Culture Ucult Complete >100,000 col/ml aerobic growth sent to ref lab 03/31/2017 Cbc With Differential Ord2 WBC 7.00 K/ul 03/30/2017 Cbc With Differential Ord2 RBC 3.69 M/ul 03/30/2017 Cbc With Differential Ord2 HGB 11.4 g/dl 03/30/2017 Cbc With Differential Ord2 HCT 35.4 % 03/30/2017 Cbc With Differential Ord2 Neut% 55.2 % 03/30/2017 Cbc With Differential Ord2 MCV 95.9 fl 03/30/2017 Cbc With Differential Ord2 Lymph% 24.1 % 03/30/2017 Cbc With Differential Ord2 MCH 30.9 pg 03/30/2017 Cbc With Differential Ord2 [place]% 13.0 % 03/30/2017 Cbc With Differential Ord2 MCHC 32.2 pg 03/30/2017 Cbc With Differential Ord2 Eos% 7.4 % 03/30/2017 Cbc With Differential Ord2 PLT 370 K/ul 03/30/2017 Cbc With Differential Ord2 Baso% 0.3 % 03/30/2017 Cbc With Differential Ord2 RDW 15.9 % 03/30/2017 Cbc With Differential Ord2 Neut ABS# 3.86 K/ul 03/30/2017 Cbc With Differential Ord2 Lymph ABS# 1.69 K/ul 03/30/2017 Cbc With Differential Ord2 [place] ABS# 0.9 K/ul 03/30/2017 Cbc With Differential Ord2 Eos ABS# 0.5 K/ul 03/30/2017 Cbc With Differential Ord2 Baso ABS# 0.0 K/ul 03/30/2017 %Hba1C Oar561 % HbA1c 62675- 6 5.8 % 03/30/2017 %Hba1C Hqd707 Gluc Ave 120 mg/dL 03/30/2017 Comp Metabolic Bfj217 NA 140 mEq/L 03/30/2017 Comp Metabolic Azr477 K 4.0 mEq/L 03/30/2017 Comp Metabolic Wtw803 CL 105 mEq/L 03/30/2017 Comp Metabolic Ahf978 CO2 25.0 mEq/L 03/30/2017 Comp Metabolic Byn146 ANION GAP 14 03/30/2017 Comp Metabolic Qrc525 GLUCOSE 108 mg/dL 03/30/2017 Comp Metabolic Ygq740 Creat 1.2 mg/dL 03/30/2017 Comp Metabolic Lwi337 eGFR 63 ml/min/1.73m2 03/30/2017 Comp Metabolic Azs300 BUN 20 mg/dL 03/30/2017 Comp Metabolic Jsx528 B/C Ratio 16.9 Ratio 03/30/2017 Comp Metabolic Rni157 CALCIUM 9.2 mg/dL 03/30/2017 Comp Metabolic Vzg506 ALK PHOS 83 U/L 03/30/2017 Comp Metabolic Qhw015 AST(SGOT) 17 U/L 03/30/2017 Comp Metabolic Ags927 ALT(SGPT) 19 U/L 03/30/2017 Comp Metabolic Wqw206 BILI T 0.3 mg/dL 03/30/2017 Comp Metabolic Cep611 ALBUMIN 3.9 g/dL 03/30/2017 Comp Metabolic Tep591 TPRO 7.2 g/dL 03/30/2017 Comp Metabolic Gqn886 GLOB 3.3 g/dL 03/30/2017 Comp Metabolic Nhu721 A/G Ratio 1.2 Ratio 03/30/2017 Comp Metabolic Esg589 Osmo 283 mOsmo 03/30/2017 Tsh Ord6 TSH (3rd IS) 1.40 uIU/mL 03/30/2017 Clostridium Diff Tox A/B Lxf788 Cdiff Positive 06/03/2016 Total Psa PSA 1.53 ng/mL 05/05/2016 Lipid Ord30 CHOL 153 mg/dL 11/02/2015 Lipid Ord30 HDL 28.0 mg/dl 11/02/2015 Lipid Ord30 TRIG 334 mg/dL 11/02/2015 Lipid Ord30 LDL 58 mg/dL 11/02/2015 Lipid Ord30 C/HDL 5.5 Ratio 11/02/2015 Ast(Sgot) Ord75 AST(SGOT) 15 U/L 11/02/2015 Cpk Ord61 CPK 137 U/L 11/02/2015 Alt(Sgpt) Ord58 ALT(SGPT) 14 U/L 11/02/2015 Urine Culture Ucult Complete >100,000 col/ml aerobic growth sent to ref lab 09/19/2015 Cbc With Differential Ord2 WBC 6.17 K/ul 03/20/2015 Cbc With Differential Ord2 RBC 3.33 M/ul 03/20/2015 Cbc With Differential Ord2 HGB 10.4 g/dl 03/20/2015 Cbc With Differential Ord2 HCT 33.0 % 03/20/2015 Cbc With Differential Ord2 Neut% 50.2 % 03/20/2015 Cbc With Differential Ord2 MCV 99.1 fl 03/20/2015 Cbc With Differential Ord2 Lymph% 27.4 % 03/20/2015 Cbc With Differential Ord2 MCH 31.2 pg 03/20/2015 Cbc With Differential Ord2 [place]% 12.8 % 03/20/2015 Cbc With Differential Ord2 MCHC 31.5 pg 03/20/2015 Cbc With Differential Ord2 Eos% 9.4 % 03/20/2015 Cbc With Differential Ord2 PLT 344 K/ul 03/20/2015 Cbc With Differential Ord2 Baso% 0.2 % 03/20/2015 Cbc With Differential Ord2 RDW 16.0 % 03/20/2015 Cbc With Differential Ord2 Neut ABS# 3.10 K/ul 03/20/2015 Cbc With Differential Ord2 Lymph ABS# 1.69 K/ul 03/20/2015 Cbc With Differential Ord2 [place] ABS# 0.8 K/ul 03/20/2015 Cbc With Differential Ord2 Eos ABS# 0.6 K/ul 03/20/2015 Cbc With Differential Ord2 Baso ABS# 0.0 K/ul 03/20/2015 Cbc With Differential Ord2 New Analyzer Notice Please note new ref ranges starting 03-04-2015 due to implemntation of new five part differential hematolgy analyzer. 03/20/2015 Total Psa Ord10 PSA 2.25 ng/mL 02/26/2015 Comp Metabolic Wfg857 NA 138 mEq/L 02/26/2015 Comp Metabolic Ijm323 K 4.0 mEq/L 02/26/2015 Comp Metabolic Ggi613 CL 103 mEq/L 02/26/2015 Comp Metabolic Sel471 CO2 28.0 mEq/L 02/26/2015 Comp Metabolic Eat001 ANION GAP 11 02/26/2015 Comp Metabolic Oom383 GLUCOSE 95 mg/dL 02/26/2015 Comp Metabolic Wic416 Creat 1.0 mg/dL 02/26/2015 Comp Metabolic Ddr101 eGFR 74 ml/min/1.73m2 02/26/2015 Comp Metabolic Mra320 BUN 19 mg/dL 02/26/2015 Comp Metabolic Ggs928 B/C Ratio 18.3 Ratio 02/26/2015 Comp Metabolic Tbn499 CALCIUM 9.1 mg/dL 02/26/2015 Comp Metabolic Tlb359 ALK PHOS 87 U/L 02/26/2015 Comp Metabolic Kyr154 AST(SGOT) 22 U/L 02/26/2015 Comp Metabolic Tik319 ALT(SGPT) 24 U/L 02/26/2015 Comp Metabolic Qmb386 BILI T 0.4 mg/dL 02/26/2015 Comp Metabolic Rvr189 ALBUMIN 4.0 g/dL 02/26/2015 Comp Metabolic Sia745 TPRO 7.4 g/dL 02/26/2015 Comp Metabolic Ctx365 GLOB 3.4 g/dL 02/26/2015 Comp Metabolic Vjo931 A/G Ratio 1.2 Ratio 02/26/2015 Comp Metabolic Dug299 Osmo 278 mOsmo 02/26/2015 Culture Urine [id number] URINE CULTURE SEE NOTES 12/15/2014 Culture Urine [id number] Continued Results 12/15/2014 Urine Culture Ucult Complete >100,000 col/ml aerobic growth sent to ref lab 12/12/2014 Comp Metabolic Kfw015 NA 136 mEq/L 12/05/2014 Comp Metabolic Bwd434 K 4.3 mEq/L 12/05/2014 Comp Metabolic Him337 CL 104 mEq/L 12/05/2014 Comp Metabolic Wco300 CO2 29.0 mEq/L 12/05/2014 Comp Metabolic Vxw396 ANION GAP 7 12/05/2014 Comp Metabolic Qvh978 GLUCOSE 80 mg/dL 12/05/2014 Comp Metabolic Hdk949 Creat 1.1 mg/dL 12/05/2014 Comp Metabolic Uog439 eGFR 68 ml/min/1.73m2 12/05/2014 Comp Metabolic Hyb975 BUN 21 mg/dL 12/05/2014 Comp Metabolic Qfd006 B/C Ratio 18.8 Ratio 12/05/2014 Comp Metabolic May247 CALCIUM 9.3 mg/dL 12/05/2014 Comp Metabolic Tnq673 ALK PHOS 81 U/L 12/05/2014 Comp Metabolic Nae528 AST(SGOT) 17 U/L 12/05/2014 Comp Metabolic Sux820 ALT(SGPT) 16 U/L 12/05/2014 Comp Metabolic Xel710 BILI T 0.3 mg/dL 12/05/2014 Comp Metabolic Amk589 ALBUMIN 4.0 g/dL 12/05/2014 Comp Metabolic Vrv077 TPRO 6.9 g/dL 12/05/2014 Comp Metabolic Tut449 GLOB 2.9 g/dL 12/05/2014 Comp Metabolic Szv552 A/G Ratio 1.4 Ratio 12/05/2014 Comp Metabolic Eki665 Osmo 274 mOsmo 12/05/2014 Cbc With Differential Ord2 WBC 5.5 K/uL 12/05/2014 Cbc With Differential Ord2 LYM 1.7 K/uL 12/05/2014 Cbc With Differential Ord2 LYM% 30.4 % 12/05/2014 Cbc With Differential Ord2 NEUT/GRAN 3.2 K/uL 12/05/2014 Cbc With Differential Ord2 NEUT/GRAN % 58.1 % 12/05/2014 Cbc With Differential Ord2 MID 0.6 K/uL 12/05/2014 Cbc With Differential Ord2 MID% 11.5 % 12/05/2014 Cbc With Differential Ord2 RBC 3.60 M/uL 12/05/2014 Cbc With Differential Ord2 HGB 11.0 g/dL 12/05/2014 Cbc With Differential Ord2 HCT 35.0 % 12/05/2014 Cbc With Differential Ord2 MCV 97 fL 12/05/2014 Cbc With Differential Ord2 MCH 31 pg 12/05/2014 Cbc With Differential Ord2 MCHC 31 g/dL 12/05/2014 Cbc With Differential Ord2 PLT 237 K/uL 12/05/2014 Cbc With Differential Ord2 RDW 15.0 % 12/05/2014 Culture Urine [id number] URINE CULTURE SEE NOTES 11/27/2014 Culture Urine [id number] Continued Results 11/27/2014 Urine Culture Ucult Complete Growth of aerobe sent to ref lab 11/25/2014 B Type Natriuretic Peptide Stw0903 B-PINMAKER 121.00 pg/ml 10/08/2014 Cbc With Differential Ord2 WBC 7.3 K/uL 10/08/2014 Cbc With Differential Ord2 LYM 1.8 K/uL 10/08/2014 Cbc With Differential Ord2 LYM% 25.2 % 10/08/2014 Cbc With Differential Ord2 NEUT/GRAN 4.7 K/uL 10/08/2014 Cbc With Differential Ord2 NEUT/GRAN % 64.6 % 10/08/2014 Cbc With Differential Ord2 MID 0.7 K/uL 10/08/2014 Cbc With Differential Ord2 MID% 10.2 % 10/08/2014 Cbc With Differential Ord2 RBC 3.39 M/uL 10/08/2014 Cbc With Differential Ord2 HGB 10.1 g/dL 10/08/2014 Cbc With Differential Ord2 HCT 32.9 % 10/08/2014 Cbc With Differential Ord2 MCV 97 fL 10/08/2014 Cbc With Differential Ord2 MCH 30 pg 10/08/2014 Cbc With Differential Ord2 MCHC 31 g/dL 10/08/2014 Cbc With Differential Ord2 PLT 304 K/uL 10/08/2014 Cbc With Differential Ord2 RDW 17.8 % 10/08/2014 Tibc Ord40 Iron 92 ug/dl 10/08/2014 Tibc Ord40 UIBC 275 ug/dL 10/08/2014 Tibc Ord40 TIBC 367 ug/dL 10/08/2014 Tibc Ord40 Fe-%Sat 25.1 % 10/08/2014 Ferritin Ord22 FERRITIN 31.1 ng/mL 10/08/2014 Folate Ord36 Folate 22.12 ng/mL 10/08/2014 B12 Ctt775 B12 >1500.00 pg/ml 10/08/2014 Comp Metabolic Vcu264 NA 135 mEq/L 10/08/2014 Comp Metabolic Kvc283 K 4.5 mEq/L 10/08/2014 Comp Metabolic Mhi881 CL 104 mEq/L 10/08/2014 Comp Metabolic Kjs919 CO2 25.0 mEq/L 10/08/2014 Comp Metabolic Aii147 ANION GAP 11 10/08/2014 Comp Metabolic Yzu807 GLUCOSE 73 mg/dL 10/08/2014 Comp Metabolic Bau216 Creat 1.1 mg/dL 10/08/2014 Comp Metabolic Hrm555 eGFR 71 ml/min/1.73m2 10/08/2014 Comp Metabolic Kki153 BUN 21 mg/dL 10/08/2014 Comp Metabolic Laf306 B/C Ratio 19.4 Ratio 10/08/2014 Comp Metabolic Znl101 CALCIUM 9.0 mg/dL 10/08/2014 Comp Metabolic Fun488 ALK PHOS 73 U/L 10/08/2014 Comp Metabolic Whk752 AST(SGOT) 15 U/L 10/08/2014 Comp Metabolic Cqf836 ALT(SGPT) 14 U/L 10/08/2014 Comp Metabolic Nfc460 BILI T 0.4 mg/dL 10/08/2014 Comp Metabolic Oqm980 ALBUMIN 4.2 g/dL 10/08/2014 Comp Metabolic Jic553 TPRO 7.1 g/dL 10/08/2014 Comp Metabolic Lkz950 GLOB 2.9 g/dL 10/08/2014 Comp Metabolic Exe581 A/G Ratio 1.4 Ratio 10/08/2014 Comp Metabolic Zup999 Osmo 272 mOsmo 10/08/2014 B12 Zuo776 B12 554.00 pg/ml 09/16/2014 Tibc Ord40 Iron 108 ug/dl 09/16/2014 Tibc Ord40 UIBC 281 ug/dL 09/16/2014 Tibc Ord40 TIBC 389 ug/dL 09/16/2014 Tibc Ord40 Fe-%Sat 27.8 % 09/16/2014 Folate Ord36 Folate >23.20 ng/mL 09/16/2014 Comp Metabolic Pjd209 NA 134 mEq/L 09/16/2014 Comp Metabolic Xjh311 K 4.6 mEq/L 09/16/2014 Comp Metabolic Vsx861 CL 103 mEq/L 09/16/2014 Comp Metabolic Qgl191 CO2 25.0 mEq/L 09/16/2014 Comp Metabolic Kdx548 ANION GAP 11 09/16/2014 Comp Metabolic Gdz914 GLUCOSE 93 mg/dL 09/16/2014 Comp Metabolic Geo550 Creat 1.2 mg/dL 09/16/2014 Comp Metabolic Hrr812 eGFR 65 ml/min/1.73m2 09/16/2014 Comp Metabolic Dsg538 BUN 23 mg/dL 09/16/2014 Comp Metabolic Bob587 B/C Ratio 19.8 Ratio 09/16/2014 Comp Metabolic Tcb410 CALCIUM 9.1 mg/dL 09/16/2014 Comp Metabolic Tfz636 ALK PHOS 73 U/L 09/16/2014 Comp Metabolic Dbs351 AST(SGOT) 18 U/L 09/16/2014 Comp Metabolic Tpy297 ALT(SGPT) 16 U/L 09/16/2014 Comp Metabolic Tzg886 BILI T 0.4 mg/dL 09/16/2014 Comp Metabolic Ipo989 ALBUMIN 4.0 g/dL 09/16/2014 Comp Metabolic Poh576 TPRO 7.1 g/dL 09/16/2014 Comp Metabolic Gtv052 GLOB 3.1 g/dL 09/16/2014 Comp Metabolic Nwi823 A/G Ratio 1.3 Ratio 09/16/2014 Comp Metabolic Wof718 Osmo 272 mOsmo 09/16/2014 Cbc With Differential Ord2 WBC 6.7 K/uL 09/16/2014 Cbc With Differential Ord2 LYM 1.0 K/uL 09/16/2014 Cbc With Differential Ord2 LYM% 14.6 % 09/16/2014 Cbc With Differential Ord2 NEUT/GRAN 4.8 K/uL 09/16/2014 Cbc With Differential Ord2 NEUT/GRAN % 71.5 % 09/16/2014 Cbc With Differential Ord2 MID 0.9 K/uL 09/16/2014 Cbc With Differential Ord2 MID% 13.9 % 09/16/2014 Cbc With Differential Ord2 RBC 3.29 M/uL 09/16/2014 Cbc With Differential Ord2 HGB 9.8 g/dL 09/16/2014 Cbc With Differential Ord2 HCT 31.6 % 09/16/2014 Cbc With Differential Ord2 MCV 96 fL 09/16/2014 Cbc With Differential Ord2 MCH 30 pg 09/16/2014 Cbc With Differential Ord2 MCHC 31 g/dL 09/16/2014 Cbc With Differential Ord2 PLT 349 K/uL 09/16/2014 Cbc With Differential Ord2 RDW 17.6 % 09/16/2014 Ferritin Ord22 FERRITIN 36.2 ng/mL 09/16/2014 Culture Urine [id number] URINE CULTURE SEE NOTES 09/08/2014 Urine Culture Ucult Complete >100,000 col/ml aerobic growth sent to ref lab 09/05/2014 Cbc With Differential Ord2 WBC 6.6 K/uL 09/05/2014 Cbc With Differential Ord2 LYM 1.7 K/uL 09/05/2014 Cbc With Differential Ord2 LYM% 25.4 % 09/05/2014 Cbc With Differential Ord2 NEUT/GRAN 4.3 K/uL 09/05/2014 Cbc With Differential Ord2 NEUT/GRAN % 65.1 % 09/05/2014 Cbc With Differential Ord2 MID 0.6 K/uL 09/05/2014 Cbc With Differential Ord2 MID% 9.5 % 09/05/2014 Cbc With Differential Ord2 RBC 3.04 M/uL 09/05/2014 Cbc With Differential Ord2 HGB 8.8 g/dL 09/05/2014 Cbc With Differential Ord2 HCT 28.4 % 09/05/2014 Cbc With Differential Ord2 MCV 93 fL 09/05/2014 Cbc With Differential Ord2 MCH 29 pg 09/05/2014 Cbc With Differential Ord2 MCHC 31 g/dL 09/05/2014 Cbc With Differential Ord2 PLT 285 K/uL 09/05/2014 Cbc With Differential Ord2 RDW 17.8 % 09/05/2014 Comp Metabolic Zke937 NA 133 mEq/L 09/05/2014 Comp Metabolic Bsq899 K 4.9 mEq/L 09/05/2014 Comp Metabolic Dmk545 CL 99 mEq/L 09/05/2014 Comp Metabolic Zbn860 CO2 26.0 mEq/L 09/05/2014 Comp Metabolic Fyh629 ANION GAP 13 09/05/2014 Comp Metabolic Ahd768 GLUCOSE 83 mg/dL 09/05/2014 Comp Metabolic Eja229 Creat 1.5 mg/dL 09/05/2014 Comp Metabolic Fgk796 eGFR 47 ml/min/1.73m2 09/05/2014 Comp Metabolic Jda892 BUN 28 mg/dL 09/05/2014 Comp Metabolic Jzf054 B/C Ratio 18.3 Ratio 09/05/2014 Comp Metabolic Syp298 CALCIUM 8.9 mg/dL 09/05/2014 Comp Metabolic Bqy427 ALK PHOS 71 U/L 09/05/2014 Comp Metabolic Uce779 AST(SGOT) 18 U/L 09/05/2014 Comp Metabolic Lix419 ALT(SGPT) 29 U/L 09/05/2014 Comp Metabolic Gye912 BILI T 0.6 mg/dL 09/05/2014 Comp Metabolic Gyv548 ALBUMIN 3.8 g/dL 09/05/2014 Comp Metabolic Dce077 TPRO 6.7 g/dL 09/05/2014 Comp Metabolic Wvu780 GLOB 2.9 g/dL 09/05/2014 Comp Metabolic Hcn925 A/G Ratio 1.3 Ratio 09/05/2014 Comp Metabolic Bef486 Osmo 271 mOsmo 09/05/2014 Total Psa Ord10 PSA 2.11 ng/mL 08/26/2014 Review of Systems System Result Effective Dates Constitutional recent illness 07/06/2018 Constitutional No anorexia 07/06/2018 Constitutional No night sweats 07/06/2018 Constitutional No chills 07/06/2018 Constitutional No diaphoresis 07/06/2018 Constitutional fatigue 07/06/2018 Constitutional No fever 07/06/2018 Constitutional No insomnia 07/06/2018 Constitutional No malaise 07/06/2018 Constitutional No weight loss 07/06/2018 Constitutional No weight gain 07/06/2018 Eyes No eye discharge 07/06/2018 Eyes No eye erythema 07/06/2018 Ears/Nose/Throat/Neck No dizziness 07/06/2018 Ears/Nose/Throat/Neck headache 07/06/2018 Cardiovascular No chest pain/pressure 07/06/2018 Cardiovascular dyspnea 07/06/2018 Cardiovascular edema 07/06/2018 Respiratory No productive sputum 07/06/2018 Respiratory chest congestion 07/06/2018 Respiratory cough 07/06/2018 Respiratory dyspnea on exertion 07/06/2018 Gastrointestinal No abdominal pain 07/06/2018 Musculoskeletal joint complaint 07/06/2018 Musculoskeletal back pain 07/06/2018 Dermatologic No rash 07/06/2018 Neurologic No alteration of consciousness 07/06/2018 Constitutional recent illness 05/25/2018 Constitutional No chills 05/25/2018 Constitutional No diaphoresis 05/25/2018 Constitutional No fever 05/25/2018 Eyes No eye erythema 05/25/2018 Ears/Nose/Throat/Neck No nasal discharge 05/25/2018 Cardiovascular No chest pain/pressure 05/25/2018 Respiratory cough 05/25/2018 Respiratory No dyspnea 05/25/2018 Neurologic No alteration of consciousness 05/25/2018 Neurologic No mental status change 05/25/2018 Constitutional recent illness 05/22/2018 Constitutional chills 05/22/2018 Eyes No eye erythema 05/22/2018 Ears/Nose/Throat/Neck nasal allergies 05/22/2018 Ears/Nose/Throat/Neck nasal discharge 05/22/2018 Ears/Nose/Throat/Neck postnasal drip 05/22/2018 Ears/Nose/Throat/Neck sinus congestion 05/22/2018 Cardiovascular No chest pain/pressure 05/22/2018 Respiratory productive sputum 05/22/2018 Respiratory cough 05/22/2018 Gastrointestinal No abdominal pain 05/22/2018 Musculoskeletal No joint complaint 05/22/2018 Dermatologic No rash 05/22/2018 Neurologic No alteration of consciousness 05/22/2018 Neurologic No mental status change 05/22/2018 Constitutional No fever 05/22/2018 Respiratory dyspnea on exertion 05/22/2018 Respiratory chest congestion 05/22/2018 Constitutional recent illness 04/20/2018 Constitutional No chills 04/20/2018 Constitutional No diaphoresis 04/20/2018 Constitutional No fever 04/20/2018 Eyes No eye erythema 04/20/2018 Ears/Nose/Throat/Neck nasal allergies 04/20/2018 Ears/Nose/Throat/Neck nasal discharge 04/20/2018 Ears/Nose/Throat/Neck postnasal drip 04/20/2018 Ears/Nose/Throat/Neck sinus congestion 04/20/2018 Ears/Nose/Throat/Neck No sore throat 04/20/2018 Cardiovascular No chest pain/pressure 04/20/2018 Cardiovascular No dyspnea 04/20/2018 Respiratory No chest congestion 04/20/2018 Respiratory cough 04/20/2018 Respiratory No dyspnea 04/20/2018 Gastrointestinal No abdominal pain 04/20/2018 Gastrointestinal No constipation 04/20/2018 Gastrointestinal No diarrhea 04/20/2018 Gastrointestinal No nausea 04/20/2018 Gastrointestinal No vomiting 04/20/2018 Dermatologic No rash 04/20/2018 Neurologic No alteration of consciousness 04/20/2018 Neurologic No mental status change 04/20/2018 Constitutional No recent illness 11/14/2017 Constitutional No chills 11/14/2017 Constitutional No diaphoresis 11/14/2017 Constitutional No fever 11/14/2017 Eyes No blindness 11/14/2017 Ears/Nose/Throat/Neck nasal allergies 11/14/2017 Ears/Nose/Throat/Neck No nasal discharge 11/14/2017 Cardiovascular No chest pain/pressure 11/14/2017 Respiratory No chest congestion 11/14/2017 Respiratory No cough 11/14/2017 Respiratory dyspnea on exertion 11/14/2017 Respiratory No dyspnea 11/14/2017 Gastrointestinal No abdominal pain 11/14/2017 Gastrointestinal No constipation 11/14/2017 Gastrointestinal No diarrhea 11/14/2017 Gastrointestinal No nausea 11/14/2017 Gastrointestinal No vomiting 11/14/2017 Musculoskeletal arthralgia(s) 11/14/2017 Neurologic No mental status change 11/14/2017 Psychiatric anxiety 11/14/2017 Psychiatric depression 11/14/2017 Constitutional fatigue 11/14/2017 Constitutional No recent illness 08/15/2017 Constitutional No chills 08/15/2017 Constitutional No diaphoresis 08/15/2017 Constitutional No fever 08/15/2017 Ears/Nose/Throat/Neck No nasal discharge 08/15/2017 Ears/Nose/Throat/Neck nasal allergies 08/15/2017 Eyes eye erythema 08/15/2017 Eyes eye pain 08/15/2017 Cardiovascular No chest pain/pressure 08/15/2017 Respiratory No cough 08/15/2017 Dermatologic No rash 08/15/2017 Neurologic No alteration of consciousness 08/15/2017 Neurologic No mental status change 08/15/2017 Cardiovascular No chest pain/pressure 06/29/2017 Respiratory No cough 06/29/2017 Gastrointestinal No abdominal pain 06/29/2017 Gastrointestinal No diarrhea 06/29/2017 Gastrointestinal No nausea 06/29/2017 Gastrointestinal No vomiting 06/29/2017 Genitourinary/Nephrology urinary incontinence 06/29/2017 Constitutional No recent illness 06/29/2017 Constitutional No chills 06/29/2017 Constitutional No diaphoresis 06/29/2017 Constitutional No fever 06/29/2017 Eyes No eye erythema 06/29/2017 Ears/Nose/Throat/Neck No nasal discharge 06/29/2017 Ears/Nose/Throat/Neck nasal allergies 06/29/2017 Respiratory No chest congestion 06/29/2017 Respiratory dyspnea on exertion 06/29/2017 Respiratory No dyspnea 06/29/2017 Gastrointestinal No constipation 06/29/2017 Musculoskeletal arthralgia(s) 06/29/2017 Dermatologic No rash 06/29/2017 Neurologic No alteration of consciousness 06/29/2017 Neurologic No mental status change 06/29/2017 Psychiatric anxiety 06/29/2017 Psychiatric depression 06/29/2017 Constitutional No recent illness 03/30/2017 Constitutional fatigue 03/30/2017 Constitutional No fever 03/30/2017 Eyes No eye discharge 03/30/2017 Eyes No eye erythema 03/30/2017 Ears/Nose/Throat/Neck No nasal allergies 03/30/2017 Ears/Nose/Throat/Neck No nasal discharge 03/30/2017 Cardiovascular No chest pain/pressure 03/30/2017 Cardiovascular fatigue 03/30/2017 Respiratory No chest congestion 03/30/2017 Respiratory dyspnea on exertion 03/30/2017 Gastrointestinal constipation 03/30/2017 Gastrointestinal diarrhea 03/30/2017 Musculoskeletal muscle weakness 03/30/2017 Dermatologic No rash 03/30/2017 Neurologic No alteration of consciousness 03/30/2017 Neurologic No mental status change 03/30/2017 Constitutional malaise 03/30/2017 Eyes No eye erythema 03/30/2017 Constitutional No recent illness 10/07/2016 Constitutional No anorexia 10/07/2016 Constitutional No night sweats 10/07/2016 Constitutional No chills 10/07/2016 Constitutional No diaphoresis 10/07/2016 Constitutional fatigue 10/07/2016 Constitutional No fever 10/07/2016 Constitutional No insomnia 10/07/2016 Constitutional No malaise 10/07/2016 Constitutional No weight loss 10/07/2016 Constitutional No weight gain 10/07/2016 Constitutional No obesity 10/07/2016 Ears/Nose/Throat/Neck No dizziness 10/07/2016 Cardiovascular No chest pain/pressure 10/07/2016 Respiratory cough 10/07/2016 Gastrointestinal No abdominal pain 10/07/2016 Gastrointestinal diarrhea 10/07/2016 Gastrointestinal No nausea 10/07/2016 Gastrointestinal No vomiting 10/07/2016 Genitourinary/Nephrology urinary incontinence 10/07/2016 Neurologic pain, generalized 10/07/2016 Musculoskeletal joint complaint 10/07/2016 Gastrointestinal No abdominal pain 07/01/2016 Gastrointestinal constipation 07/01/2016 Gastrointestinal No diarrhea 07/01/2016 Gastrointestinal No vomiting 07/01/2016 Gastrointestinal No nausea 07/01/2016 Constitutional No recent illness 07/01/2016 Constitutional No anorexia 07/01/2016 Constitutional No night sweats 07/01/2016 Constitutional No diaphoresis 07/01/2016 Constitutional No chills 07/01/2016 Constitutional fatigue 07/01/2016 Constitutional No fever 07/01/2016 Constitutional No insomnia 07/01/2016 Constitutional No malaise 07/01/2016 Constitutional No weight loss 07/01/2016 Constitutional No weight gain 07/01/2016 Constitutional No obesity 07/01/2016 Musculoskeletal joint complaint 07/01/2016 Ears/Nose/Throat/Neck No dizziness 07/01/2016 Cardiovascular No chest pain/pressure 07/01/2016 Respiratory No cough 07/01/2016 Genitourinary/Nephrology urinary incontinence 07/01/2016 Neurologic pain, generalized 07/01/2016 Constitutional No recent illness 05/05/2016 Constitutional fatigue 05/05/2016 Eyes No eye discharge 05/05/2016 Eyes No eye erythema 05/05/2016 Ears/Nose/Throat/Neck No nasal allergies 05/05/2016 Ears/Nose/Throat/Neck No nasal discharge 05/05/2016 Cardiovascular No chest pain/pressure 05/05/2016 Cardiovascular fatigue 05/05/2016 Respiratory No chest congestion 05/05/2016 Respiratory dyspnea on exertion 05/05/2016 Gastrointestinal constipation 05/05/2016 Gastrointestinal diarrhea 05/05/2016 Musculoskeletal muscle weakness 05/05/2016 Dermatologic No rash 05/05/2016 Neurologic No alteration of consciousness 05/05/2016 Neurologic No mental status change 05/05/2016 Constitutional No fever 05/05/2016 Constitutional No recent illness 02/23/2016 Constitutional No chills 02/23/2016 Constitutional No fever 02/23/2016 Eyes No eye erythema 02/23/2016 Ears/Nose/Throat/Neck No nasal discharge 02/23/2016 Cardiovascular No chest pain/pressure 02/23/2016 Cardiovascular No dyspnea 02/23/2016 Respiratory No cough 02/23/2016 Respiratory No dyspnea 02/23/2016 Musculoskeletal joint complaint 02/23/2016 Neurologic No alteration of consciousness 02/23/2016 Neurologic No mental status change 02/23/2016 Constitutional recent illness 09/16/2015 Constitutional fatigue 09/16/2015 Constitutional malaise 09/16/2015 Eyes No eye discharge 09/16/2015 Eyes No eye erythema 09/16/2015 Ears/Nose/Throat/Neck No nasal allergies 09/16/2015 Ears/Nose/Throat/Neck No nasal discharge 09/16/2015 Cardiovascular No chest pain/pressure 09/16/2015 Gastrointestinal diarrhea 09/16/2015 Musculoskeletal muscle weakness 09/16/2015 Dermatologic No rash 09/16/2015 Neurologic No alteration of consciousness 09/16/2015 Neurologic No mental status change 09/16/2015 Constitutional insomnia 09/16/2015 Cardiovascular fatigue 09/16/2015 Respiratory dyspnea on exertion 09/16/2015 Respiratory No chest congestion 09/16/2015 Gastrointestinal constipation 09/16/2015 Constitutional recent illness 07/24/2015 Constitutional fatigue 07/24/2015 Eyes No eye discharge 07/24/2015 Eyes No eye erythema 07/24/2015 Ears/Nose/Throat/Neck No nasal discharge 07/24/2015 Cardiovascular No chest pain/pressure 07/24/2015 Cardiovascular No dyspnea 07/24/2015 Respiratory No cough 07/24/2015 Dermatologic No rash 07/24/2015 Constitutional No fever 07/24/2015 Constitutional malaise 07/24/2015 Ears/Nose/Throat/Neck No nasal allergies 07/24/2015 Respiratory No chest congestion 07/24/2015 Gastrointestinal nausea 07/24/2015 Gastrointestinal No vomiting 07/24/2015 Musculoskeletal muscle weakness 07/24/2015 Neurologic No alteration of consciousness 07/24/2015 Neurologic No mental status change 07/24/2015 Gastrointestinal diarrhea 07/24/2015 Constitutional No recent illness 03/20/2015 Constitutional No night sweats 03/20/2015 Constitutional No chills 03/20/2015 Constitutional No diaphoresis 03/20/2015 Constitutional No fatigue 03/20/2015 Constitutional No fever 03/20/2015 Constitutional No insomnia 03/20/2015 Constitutional No malaise 03/20/2015 Eyes No eye discharge 03/20/2015 Eyes No eye erythema 03/20/2015 Ears/Nose/Throat/Neck No headache 03/20/2015 Ears/Nose/Throat/Neck No nasal discharge 03/20/2015 Ears/Nose/Throat/Neck No sinus congestion 03/20/2015 Ears/Nose/Throat/Neck No sore throat 03/20/2015 Cardiovascular No chest pain/pressure 03/20/2015 Cardiovascular No dyspnea 03/20/2015 Cardiovascular No edema 03/20/2015 Respiratory No cough 03/20/2015 Gastrointestinal No constipation 03/20/2015 Gastrointestinal No diarrhea 03/20/2015 Musculoskeletal No joint complaint 03/20/2015 Musculoskeletal muscle weakness 03/20/2015 Dermatologic rash 03/20/2015 Psychiatric No anxiety 03/20/2015 Eyes No vision change 03/20/2015 Respiratory No chest congestion 03/20/2015 Gastrointestinal No nausea 03/20/2015 Gastrointestinal No vomiting 03/20/2015 Neurologic No alteration of consciousness 03/20/2015 Constitutional recent illness 01/13/2015 Constitutional night sweats 01/13/2015 Constitutional chills 01/13/2015 Constitutional diaphoresis 01/13/2015 Constitutional fatigue 01/13/2015 Constitutional fever 01/13/2015 Constitutional No insomnia 01/13/2015 Constitutional No malaise 01/13/2015 Eyes No eye discharge 01/13/2015 Eyes No eye erythema 01/13/2015 Eyes No vision change 01/13/2015 Ears/Nose/Throat/Neck No headache 01/13/2015 Ears/Nose/Throat/Neck No nasal discharge 01/13/2015 Ears/Nose/Throat/Neck No sore throat 01/13/2015 Cardiovascular No chest pain/pressure 01/13/2015 Cardiovascular No dyspnea 01/13/2015 Cardiovascular edema 01/13/2015 Respiratory No cough 01/13/2015 Gastrointestinal No constipation 01/13/2015 Gastrointestinal No diarrhea 01/13/2015 Musculoskeletal No joint complaint 01/13/2015 Musculoskeletal muscle weakness 01/13/2015 Dermatologic No rash 01/13/2015 Psychiatric No anxiety 01/13/2015 Ears/Nose/Throat/Neck sinus congestion 01/13/2015 Genitourinary/Nephrology No dysuria 01/13/2015 Neurologic alteration of consciousness 01/13/2015 Constitutional No recent illness 12/05/2014 Constitutional No anorexia 12/05/2014 Constitutional No night sweats 12/05/2014 Constitutional No chills 12/05/2014 Constitutional No diaphoresis 12/05/2014 Constitutional No fatigue 12/05/2014 Constitutional No fever 12/05/2014 Constitutional insomnia 12/05/2014 Constitutional No malaise 12/05/2014 Constitutional No weight loss 12/05/2014 Constitutional No weight gain 12/05/2014 Constitutional No obesity 12/05/2014 Eyes No vision change 12/05/2014 Eyes cataract 12/05/2014 Cardiovascular No chest pain/pressure 12/05/2014 Cardiovascular exercise intolerance 12/05/2014 Cardiovascular fatigue 12/05/2014 Ears/Nose/Throat/Neck No nasal discharge 12/05/2014 Ears/Nose/Throat/Neck No nasal allergies 12/05/2014 Ears/Nose/Throat/Neck No otalgia 12/05/2014 Ears/Nose/Throat/Neck No otitis media 12/05/2014 Respiratory No chest tightness 12/05/2014 Respiratory No chest congestion 12/05/2014 Respiratory No cough 12/05/2014 Respiratory No cigarette smoking 12/05/2014 Respiratory dyspnea on exertion 12/05/2014 Gastrointestinal constipation 12/05/2014 Gastrointestinal diarrhea 12/05/2014 Genitourinary/Nephrology dysuria 12/05/2014 Genitourinary/Nephrology hematuria 12/05/2014 Musculoskeletal muscle weakness 12/05/2014 Musculoskeletal joint complaint 12/05/2014 Cardiovascular edema 12/05/2014 Dermatologic No sores 12/05/2014 Dermatologic No rash 12/05/2014 Psychiatric No anxiety 12/05/2014 Psychiatric No depression 12/05/2014 Constitutional No recent illness 10/03/2014 Constitutional No anorexia 10/03/2014 Constitutional No night sweats 10/03/2014 Constitutional No chills 10/03/2014 Constitutional No diaphoresis 10/03/2014 Constitutional No fatigue 10/03/2014 Constitutional fever 10/03/2014 Constitutional No insomnia 10/03/2014 Constitutional No malaise 10/03/2014 Constitutional No weight loss 10/03/2014 Constitutional No weight gain 10/03/2014 Eyes No eye discharge 10/03/2014 Eyes No eye erythema 10/03/2014 Ears/Nose/Throat/Neck dizziness 10/03/2014 Ears/Nose/Throat/Neck No headache 10/03/2014 Ears/Nose/Throat/Neck No nasal discharge 10/03/2014 Cardiovascular No chest pain/pressure 10/03/2014 Cardiovascular edema 10/03/2014 Respiratory No productive sputum 10/03/2014 Respiratory No chest congestion 10/03/2014 Respiratory No cough 10/03/2014 Respiratory dyspnea on exertion 10/03/2014 Gastrointestinal No constipation 10/03/2014 Gastrointestinal diarrhea 10/03/2014 Gastrointestinal No nausea 10/03/2014 Gastrointestinal No vomiting 10/03/2014 Dermatologic No rash 10/03/2014 Neurologic No alteration of consciousness 10/03/2014 Cardiovascular fatigue 10/03/2014 Cardiovascular dyspnea 10/03/2014 Respiratory dyspnea 10/03/2014 Gastrointestinal No abdominal pain 10/03/2014 Genitourinary/Nephrology urinary frequency 10/03/2014 Musculoskeletal joint complaint 10/03/2014 Constitutional No recent illness 09/15/2014 Constitutional No night sweats 09/15/2014 Constitutional No chills 09/15/2014 Constitutional No diaphoresis 09/15/2014 Constitutional fatigue 09/15/2014 Constitutional No fever 09/15/2014 Constitutional No insomnia 09/15/2014 Constitutional No malaise 09/15/2014 Eyes No eye discharge 09/15/2014 Eyes No eye erythema 09/15/2014 Eyes No vision change 09/15/2014 Ears/Nose/Throat/Neck No headache 09/15/2014 Ears/Nose/Throat/Neck No nasal discharge 09/15/2014 Ears/Nose/Throat/Neck oral pain 09/15/2014 Ears/Nose/Throat/Neck No sore throat 09/15/2014 Cardiovascular No chest pain/pressure 09/15/2014 Cardiovascular No dyspnea 09/15/2014 Cardiovascular edema 09/15/2014 Respiratory No cough 09/15/2014 Gastrointestinal No constipation 09/15/2014 Gastrointestinal No diarrhea 09/15/2014 Genitourinary/Nephrology No polyuria 09/15/2014 Musculoskeletal No joint complaint 09/15/2014 Musculoskeletal muscle weakness 09/15/2014 Dermatologic No rash 09/15/2014 Neurologic No alteration of consciousness 09/15/2014 Psychiatric No anxiety 09/15/2014 Constitutional recent illness 09/05/2014 Constitutional fever 09/05/2014 Constitutional No anorexia 09/05/2014 Constitutional No night sweats 09/05/2014 Constitutional No chills 09/05/2014 Constitutional No diaphoresis 09/05/2014 Constitutional No fatigue 09/05/2014 Constitutional No insomnia 09/05/2014 Constitutional No malaise 09/05/2014 Constitutional No weight loss 09/05/2014 Constitutional No weight gain 09/05/2014 Eyes No eye discharge 09/05/2014 Eyes No eye erythema 09/05/2014 Ears/Nose/Throat/Neck dizziness 09/05/2014 Ears/Nose/Throat/Neck headache 09/05/2014 Ears/Nose/Throat/Neck No nasal discharge 09/05/2014 Cardiovascular No chest pain/pressure 09/05/2014 Respiratory No productive sputum 09/05/2014 Respiratory No chest congestion 09/05/2014 Respiratory dyspnea on exertion 09/05/2014 Respiratory No cough 09/05/2014 Cardiovascular edema 09/05/2014 Gastrointestinal nausea 09/05/2014 Gastrointestinal No vomiting 09/05/2014 Gastrointestinal No constipation 09/05/2014 Gastrointestinal diarrhea 09/05/2014 Genitourinary/Nephrology urinary frequency 09/05/2014 Dermatologic No rash 09/05/2014 Neurologic No alteration of consciousness 09/05/2014 Constitutional No recent illness 07/04/2014 Constitutional No anorexia 07/04/2014 Constitutional No night sweats 07/04/2014 Constitutional No chills 07/04/2014 Constitutional No diaphoresis 07/04/2014 Constitutional No fatigue 07/04/2014 Constitutional No fever 07/04/2014 Constitutional No insomnia 07/04/2014 Constitutional No malaise 07/04/2014 Constitutional No weight loss 07/04/2014 Constitutional No weight gain 07/04/2014 Eyes No eye discharge 07/04/2014 Eyes No eye erythema 07/04/2014 Eyes No vision change 07/04/2014 Ears/Nose/Throat/Neck oral pain 07/04/2014 Ears/Nose/Throat/Neck No nasal discharge 07/04/2014 Ears/Nose/Throat/Neck No headache 07/04/2014 Ears/Nose/Throat/Neck No sore throat 07/04/2014 Cardiovascular No chest pain/pressure 07/04/2014 Cardiovascular No dyspnea 07/04/2014 Cardiovascular edema 07/04/2014 Respiratory No cough 07/04/2014 Gastrointestinal No constipation 07/04/2014 Gastrointestinal No diarrhea 07/04/2014 Genitourinary/Nephrology No polyuria 07/04/2014 Musculoskeletal No joint complaint 07/04/2014 Musculoskeletal muscle weakness 07/04/2014 Dermatologic No rash 07/04/2014 Neurologic No alteration of consciousness 07/04/2014 Psychiatric No anxiety 07/04/2014 Endocrine No dry or coarse skin 07/04/2014 Physical Exam Exam Name System Name Item Name Status Result Effective Dates Notes Full Exam - General 1994 Constitutional general appearance Overall: well developed 07/06/2018 None Full Exam - General 1994 Constitutional general appearance Overall: in no acute distress 07/06/2018 None Full Exam - General 1994 Constitutional general appearance Overall: well nourished 07/06/2018 None Full Exam - General 1994 Constitutional general appearance Assistive Device: scooter 07/06/2018 None Full Exam - General 1994 Eyes conjunctiva/eyelids Overall: conjunctiva clear 07/06/2018 None Full Exam - General 1994 Eyes conjunctiva/eyelids Overall: cornea clear 07/06/2018 None Full Exam - General 1994 Eyes conjunctiva/eyelids Overall: eyelids normal 07/06/2018 None Full Exam - General 1994 Ears/Nose/Throat lips/teeth/gingiva Overall: benign lips 07/06/2018 None Full Exam - General 1994 Ears/Nose/Throat oral cavity/pharynx/larynx Overall: oral mucosa clear 07/06/2018 None Full Exam - General 1994 Respiratory auscultation Overall: breath sounds clear bilaterally 07/06/2018 None Full Exam - General 1994 Respiratory auscultation Diffuse: diminished 07/06/2018 None Full Exam - General 1994 Respiratory respiratory effort/rhythm Overall: no retractions 07/06/2018 None Full Exam - General 1994 Respiratory respiratory effort/rhythm Overall: normal rate 07/06/2018 None Full Exam - General 1994 Cardiovascular auscultation of heart Rate: regular rate 07/06/2018 None Full Exam - General 1994 Musculoskeletal head and neck Overall: head atraumatic 07/06/2018 None Full Exam - General 1994 Neurologic cranial nerves Overall: crainial nerves 2 - 12 grossly intact 07/06/2018 None Full Exam - General 1994 Psychiatric orientation/consciousness Overall: oriented to person, place and time 07/06/2018 None Full Exam - General 1994 Psychiatric mood and affect Overall: normal mood and affect 07/06/2018 None Full Exam - Cardiology Respiratory auscultation Right lower lung field: crackles 07/06/2018 None Full Exam - General 1994 Constitutional general appearance Overall: well developed 05/25/2018 None Full Exam - General 1994 Constitutional general appearance Overall: in no acute distress 05/25/2018 None Full Exam - General 1994 Constitutional general appearance Overall: well nourished 05/25/2018 None Full Exam - General 1994 Eyes conjunctiva/eyelids Overall: eyelids normal 05/25/2018 None Full Exam - General 1994 Eyes conjunctiva/eyelids Overall: cornea clear 05/25/2018 None Full Exam - General 1994 Eyes conjunctiva/eyelids Overall: conjunctiva clear 05/25/2018 None Full Exam - General 1994 Constitutional general appearance Assistive Device: scooter 05/25/2018 None Full Exam - General 1994 Ears/Nose/Throat oral cavity/pharynx/larynx Overall: oral mucosa clear 05/25/2018 None Full Exam - General 1994 Ears/Nose/Throat lips/teeth/gingiva Overall: benign lips 05/25/2018 None Full Exam - General 1994 Respiratory respiratory effort/rhythm Overall: normal rate 05/25/2018 None Full Exam - General 1994 Respiratory respiratory effort/rhythm Overall: no retractions 05/25/2018 None Full Exam - General 1994 Respiratory auscultation Overall: breath sounds clear bilaterally 05/25/2018 None Full Exam - General 1994 Respiratory auscultation Diffuse: diminished 05/25/2018 None Full Exam - General 1994 Cardiovascular auscultation of heart Rate: regular rate 05/25/2018 None Full Exam - General 1994 Musculoskeletal head and neck Overall: head atraumatic 05/25/2018 None Full Exam - General 1994 Neurologic cranial nerves Overall: crainial nerves 2 - 12 grossly intact 05/25/2018 None Full Exam - General 1994 Psychiatric orientation/consciousness Overall: oriented to person, place and time 05/25/2018 None Full Exam - General 1994 Psychiatric mood and affect Overall: normal mood and affect 05/25/2018 None Full Exam - General 1994 Constitutional general appearance Overall: well developed 05/22/2018 None Full Exam - General 1994 Constitutional general appearance Overall: in no acute distress 05/22/2018 None Full Exam - General 1994 Constitutional general appearance Overall: well nourished 05/22/2018 None Full Exam - General 1995 Eyes conjunctiva/eyelids Overall: conjunctiva clear 05/22/2018 None Full Exam - General 1994 Eyes conjunctiva/eyelids Overall: eyelids normal 05/22/2018 None Full Exam - General 1995 Ears/Nose/Throat otoscopic exam Tympanic membrane: air-fluid level 05/22/2018 None Full Exam - General 1995 Ears/Nose/Throat lips/teeth/gingiva Overall: benign lips 05/22/2018 None Full Exam - General 1995 Ears/Nose/Throat oral cavity/pharynx/larynx Overall: oral mucosa clear 05/22/2018 None Full Exam - General 1995 Ears/Nose/Throat oral cavity/pharynx/larynx Posterior Pharynx: clear post nasal drainage 05/22/2018 None Full Exam - General 1994 Respiratory auscultation Diffuse: diminished 05/22/2018 None Full Exam - General 1994 Respiratory respiratory effort/rhythm Overall: no retractions 05/22/2018 None Full Exam - General 1994 Respiratory respiratory effort/rhythm Overall: normal rate 05/22/2018 None Full Exam - General 1994 Cardiovascular auscultation of heart Overall: regular rate 05/22/2018 None Full Exam - General 1994 Cardiovascular auscultation of heart Overall: normal heart sounds 05/22/2018 None Full Exam - General 1994 Lymphatic neck nodes Overall: anterior cervical chain benign 05/22/2018 None Full Exam - General 1994 Lymphatic neck nodes Overall: posterior cervical chain benign 05/22/2018 None Full Exam - General 1994 Neurologic cranial nerves Overall: crainial nerves 2 - 12 grossly intact 05/22/2018 None Full Exam - General 1994 Psychiatric orientation/consciousness Overall: oriented to person, place and time 05/22/2018 None Full Exam - General 1994 Psychiatric mood and affect Overall: normal mood and affect 05/22/2018 None Full Exam - General 1994 Respiratory auscultation Lower lung field: crackles 05/22/2018 None Full Exam - General 1994 Ears/Nose/Throat otoscopic exam External auditory canal: partial cerumen occlusion 05/22/2018 None Full Exam - General 1994 Constitutional general appearance Assistive Device: scooter 05/22/2018 None Full Exam - ENT Constitutional general appearance Overall: well nourished 04/20/2018 None Full Exam - ENT Constitutional general appearance Overall: well developed 04/20/2018 None Full Exam - ENT Constitutional general appearance Overall: in no acute distress 04/20/2018 None Full Exam - ENT Ears/Nose/Throat otoscopic exam Overall: external auditory canals normal 04/20/2018 None Full Exam - ENT Ears/Nose/Throat otoscopic exam Left tympanic membrane: air-fluid level 04/20/2018 None Full Exam - ENT Ears/Nose/Throat otoscopic exam Right tympanic membrane: air-fluid level 04/20/2018 None Full Exam - ENT Ears/Nose/Throat nasal mucosa, septum, turbinates Drainage: clear 04/20/2018 None Full Exam - ENT Ears/Nose/Throat nasal mucosa, septum, turbinates Drainage: yellow 04/20/2018 None Full Exam - ENT Ears/Nose/Throat lips/teeth/gingiva Overall: benign lips 04/20/2018 None Full Exam - ENT Ears/Nose/Throat oropharynx Posterior Pharynx: clear post nasal drainage 04/20/2018 None Full Exam - ENT Face and Head palpation Left maxillary sinus: tender 04/20/2018 None Full Exam - ENT Face and Head palpation Right maxillary sinus: tender 04/20/2018 None Full Exam - ENT Respiratory inspection Overall: no retractions 04/20/2018 None Full Exam - ENT Respiratory inspection Overall: normal rate 04/20/2018 None Full Exam - ENT Respiratory auscultation Overall: breath sounds clear bilaterally 04/20/2018 None Full Exam - ENT Cardiovascular auscultation of heart Overall: regular rate 04/20/2018 None Full Exam - ENT Cardiovascular auscultation of heart Overall: normal heart sounds 04/20/2018 None Full Exam - ENT Lymphatic palpation of lymph nodes Overall: anterior cervical chain benign 04/20/2018 None Full Exam - ENT Lymphatic palpation of lymph nodes Overall: posterior cervical chain benign 04/20/2018 None Full Exam - ENT Neurologic mood and affect Overall: normal mood 04/20/2018 None Full Exam - ENT Neurologic mood and affect Overall: normal affect 04/20/2018 None Full Exam - ENT Neurologic orientation Overall: oriented to person, place and time 04/20/2018 None Full Exam - General 1994 Constitutional general appearance Overall: well developed 11/14/2017 None Full Exam - General 1994 Constitutional general appearance Overall: in no acute distress 11/14/2017 None Full Exam - General 1994 Constitutional general appearance Overall: well nourished 11/14/2017 None Full Exam - General 1994 Constitutional general appearance Hygiene/Attention to Grooming: good hygiene 11/14/2017 None Full Exam - General 1994 Constitutional general appearance Assistive Device: scooter 11/14/2017 None Full Exam - General 1994 Eyes conjunctiva/eyelids Overall: conjunctiva clear 11/14/2017 None Full Exam - General 1994 Ears/Nose/Throat otoscopic exam Overall: external auditory canals clear 11/14/2017 None Full Exam - General 1994 Ears/Nose/Throat otoscopic exam Overall: tympanic membranes clear 11/14/2017 None Full Exam - General 1994 Ears/Nose/Throat lips/teeth/gingiva Overall: benign lips 11/14/2017 None Full Exam - General 1994 Ears/Nose/Throat oral cavity/pharynx/larynx Overall: oral mucosa clear 11/14/2017 None Full Exam - General 1994 Respiratory auscultation Overall: breath sounds clear bilaterally 11/14/2017 None Full Exam - General 1994 Respiratory respiratory effort/rhythm Overall: no retractions 11/14/2017 None Full Exam - General 1994 Respiratory respiratory effort/rhythm Overall: normal rate 11/14/2017 None Full Exam - General 1994 Cardiovascular auscultation of heart Overall: regular rate 11/14/2017 None Full Exam - General 1994 Cardiovascular auscultation of heart Overall: normal heart sounds 11/14/2017 None Full Exam - General 1994 Abdomen abdominal exam Overall: normal bowel sounds 11/14/2017 colostomy LLQ Full Exam - General 1994 Abdomen abdominal exam Suprapubic: non-tender to palpation 11/14/2017 catheter Full Exam - General 1994 Musculoskeletal head and neck Overall: head atraumatic 11/14/2017 None Full Exam - General 1994 Neurologic cranial nerves Overall: crainial nerves 2 - 12 grossly intact 11/14/2017 None Full Exam - General 1994 Psychiatric orientation/consciousness Overall: oriented to person, place and time 11/14/2017 None Full Exam - General 1994 Psychiatric mood and affect Mood: depressed 11/14/2017 None Full Exam - General 1994 Psychiatric appearance Overall: well-groomed, good eye contact 11/14/2017 None Full Exam - General 1994 Constitutional general appearance Overall: well developed 08/15/2017 None Full Exam - General 1994 Constitutional general appearance Overall: in no acute distress 08/15/2017 None Full Exam - General 1994 Constitutional general appearance Overall: well nourished 08/15/2017 None Full Exam - General 1994 Constitutional general appearance Hygiene/Attention to Grooming: good hygiene 08/15/2017 None Full Exam - General 1994 Ears/Nose/Throat otoscopic exam Overall: external auditory canals clear 08/15/2017 None Full Exam - General 1994 Ears/Nose/Throat otoscopic exam Overall: tympanic membranes clear 08/15/2017 None Full Exam - General 1994 Respiratory auscultation Overall: breath sounds clear bilaterally 08/15/2017 None Full Exam - General 1994 Respiratory respiratory effort/rhythm Overall: no retractions 08/15/2017 None Full Exam - General 1994 Respiratory respiratory effort/rhythm Overall: normal rate 08/15/2017 None Full Exam - General 1994 Cardiovascular extremities Edema present: pitting 08/15/2017 None Full Exam - General 1994 Cardiovascular extremities Edema present: severity 1+ - 4+: 1+ R>L 08/15/2017 None Full Exam - General 1994 Cardiovascular auscultation of heart Overall: regular rate 08/15/2017 None Full Exam - General 1994 Cardiovascular auscultation of heart Overall: normal heart sounds 08/15/2017 None Full Exam - General 1994 Psychiatric orientation/consciousness Overall: oriented to person, place and time 08/15/2017 None Full Exam - General 1994 Constitutional general appearance Assistive Device: scooter 08/15/2017 None Full Exam - General 1994 Eyes conjunctiva/eyelids Conjunctiva: erythema 08/15/2017 None Full Exam - General 1994 Eyes pupils and irises Overall: pupils equal, round, reactive to light and accomodation 08/15/2017 None Full Exam - General 1994 Ears/Nose/Throat oral cavity/pharynx/larynx Oral mucosa: dry 08/15/2017 None Full Exam - General 1994 Ears/Nose/Throat oral cavity/pharynx/larynx Oral mucosa: ulceration 08/15/2017 None Full Exam - General 1994 Ears/Nose/Throat oral cavity/pharynx/larynx Oral mucosa: thrush 08/15/2017 None Full Exam - General 1994 Ears/Nose/Throat lips/teeth/gingiva Overall: benign lips 08/15/2017 None Full Exam - General 1994 Respiratory auscultation Diffuse: diminished 08/15/2017 None Full Exam - General 1994 Musculoskeletal head and neck Overall: head atraumatic 08/15/2017 None Full Exam - General 1994 Neurologic cranial nerves Overall: crainial nerves 2 - 12 grossly intact 08/15/2017 None Full Exam - General 1994 Psychiatric mood and affect Overall: normal mood and affect 08/15/2017 None Full Exam - General 1994 Constitutional general appearance Overall: well developed 06/29/2017 None Full Exam - General 1994 Constitutional general appearance Overall: in no acute distress 06/29/2017 None Full Exam - General 1994 Constitutional general appearance Overall: well nourished 06/29/2017 None Full Exam - General 1994 Constitutional general appearance Hygiene/Attention to Grooming: good hygiene 06/29/2017 None Full Exam - General 1994 Eyes conjunctiva/eyelids Overall: conjunctiva clear 06/29/2017 None Full Exam - General 1994 Ears/Nose/Throat otoscopic exam Overall: external auditory canals clear 06/29/2017 None Full Exam - General 1994 Ears/Nose/Throat otoscopic exam Overall: tympanic membranes clear 06/29/2017 None Full Exam - General 1994 Ears/Nose/Throat oral cavity/pharynx/larynx Overall: oral mucosa clear 06/29/2017 None Full Exam - General 1994 Respiratory auscultation Overall: breath sounds clear bilaterally 06/29/2017 None Full Exam - General 1994 Respiratory respiratory effort/rhythm Overall: no retractions 06/29/2017 None Full Exam - General 1994 Respiratory respiratory effort/rhythm Overall: normal rate 06/29/2017 None Full Exam - General 1994 Cardiovascular auscultation of heart Overall: regular rate 06/29/2017 None Full Exam - General 1994 Cardiovascular auscultation of heart Overall: normal heart sounds 06/29/2017 None Full Exam - General 1994 Abdomen abdominal exam Overall: normal bowel sounds 06/29/2017 colostomy LLQ Full Exam - General 1994 Abdomen abdominal exam Suprapubic: non-tender to palpation 06/29/2017 catheter Full Exam - General 1994 Psychiatric orientation/consciousness Overall: oriented to person, place and time 06/29/2017 None Full Exam - General 1994 Constitutional general appearance Assistive Device: scooter 06/29/2017 None Full Exam - General 1994 Ears/Nose/Throat lips/teeth/gingiva Overall: benign lips 06/29/2017 None Full Exam - General 1994 Musculoskeletal head and neck Overall: head atraumatic 06/29/2017 None Full Exam - General 1994 Neurologic cranial nerves Overall: crainial nerves 2 - 12 grossly intact 06/29/2017 None Full Exam - General 1994 Psychiatric mood and affect Mood: depressed 06/29/2017 None Full Exam - General 1994 Psychiatric appearance Overall: well-groomed, good eye contact 06/29/2017 None Full Exam - General 1994 Constitutional general appearance Overall: well developed 03/30/2017 None Full Exam - General 1994 Constitutional general appearance Overall: in no acute distress 03/30/2017 None Full Exam - General 1994 Constitutional general appearance Overall: well nourished 03/30/2017 None Full Exam - General 1994 Eyes conjunctiva/eyelids Overall: conjunctiva clear 03/30/2017 None Full Exam - General 1994 Ears/Nose/Throat lips/teeth/gingiva Overall: benign lips 03/30/2017 None Full Exam - General 1994 Ears/Nose/Throat oral cavity/pharynx/larynx Overall: oral mucosa clear 03/30/2017 None Full Exam - General 1994 Respiratory auscultation Overall: breath sounds clear bilaterally 03/30/2017 None Full Exam - General 1994 Respiratory respiratory effort/rhythm Overall: no retractions 03/30/2017 None Full Exam - General 1994 Respiratory respiratory effort/rhythm Overall: normal rate 03/30/2017 None Full Exam - General 1994 Cardiovascular auscultation of heart Overall: regular rate 03/30/2017 None Full Exam - General 1994 Cardiovascular auscultation of heart Overall: normal heart sounds 03/30/2017 None Full Exam - General 1994 Abdomen abdominal exam Overall: no tenderness 03/30/2017 None Full Exam - General 1994 Abdomen abdominal exam Overall: normal bowel sounds 03/30/2017 None Full Exam - General 1994 Psychiatric orientation/consciousness Overall: oriented to person, place and time 03/30/2017 None Full Exam - General 1994 Psychiatric mood and affect Overall: normal mood and affect 03/30/2017 None Full Exam - General 1994 Psychiatric appearance Overall: well-groomed, good eye contact 03/30/2017 None Full Exam - General 1994 Constitutional general appearance Assistive Device: wheelchair 03/30/2017 None Full Exam - General 1994 Eyes conjunctiva/eyelids Overall: cornea clear 03/30/2017 None Full Exam - General 1994 Eyes conjunctiva/eyelids Overall: eyelids normal 03/30/2017 None Full Exam - General 1994 Musculoskeletal head and neck Overall: head atraumatic 03/30/2017 None Full Exam - General 1994 Neurologic cranial nerves Overall: crainial nerves 2 - 12 grossly intact 03/30/2017 None Full Exam - General 1994 Constitutional general appearance Overall: well developed 10/07/2016 None Full Exam - General 1994 Constitutional general appearance Overall: in no acute distress 10/07/2016 None Full Exam - General 1994 Constitutional general appearance Overall: well nourished 10/07/2016 None Full Exam - General 1994 Constitutional general appearance Hygiene/Attention to Grooming: good hygiene 10/07/2016 None Full Exam - General 1994 Constitutional general appearance Assistive Device: walker 10/07/2016 None Full Exam - General 1994 Eyes conjunctiva/eyelids Overall: conjunctiva clear 10/07/2016 None Full Exam - General 1994 Ears/Nose/Throat otoscopic exam Overall: external auditory canals clear 10/07/2016 None Full Exam - General 1994 Ears/Nose/Throat otoscopic exam Overall: tympanic membranes clear 10/07/2016 None Full Exam - General 1994 Ears/Nose/Throat oral cavity/pharynx/larynx Overall: oral mucosa clear 10/07/2016 None Full Exam - General 1994 Respiratory auscultation Overall: breath sounds clear bilaterally 10/07/2016 None Full Exam - General 1994 Respiratory respiratory effort/rhythm Overall: no retractions 10/07/2016 None Full Exam - General 1994 Respiratory respiratory effort/rhythm Overall: normal rate 10/07/2016 None Full Exam - General 1994 Cardiovascular extremities Edema present: pitting 10/07/2016 None Full Exam - General 1994 Cardiovascular extremities Edema present: severity 1+ - 4+: 1+ R>L 10/07/2016 None Full Exam - General 1994 Cardiovascular auscultation of heart Overall: regular rate 10/07/2016 None Full Exam - General 1994 Cardiovascular auscultation of heart Overall: normal heart sounds 10/07/2016 None Full Exam - General 1994 Abdomen abdominal exam Overall: no tenderness 10/07/2016 None Full Exam - General 1994 Abdomen abdominal exam Overall: normal bowel sounds 10/07/2016 colostomy LLQ Full Exam - General 1994 Abdomen abdominal exam Suprapubic: non-tender to palpation 10/07/2016 catheter Full Exam - General 1994 Integument inspection of skin Overall: few scattered moles, no gross abnormalities 10/07/2016 None Full Exam - General 1994 Neurologic gait Conventional walking: ataxic rhythm 10/07/2016 None Full Exam - General 1994 Psychiatric orientation/consciousness Overall: oriented to person, place and time 10/07/2016 None Full Exam - General 1994 Constitutional general appearance Overall: well developed 07/01/2016 None Full Exam - General 1994 Constitutional general appearance Overall: in no acute distress 07/01/2016 None Full Exam - General 1994 Constitutional general appearance Overall: well nourished 07/01/2016 None Full Exam - General 1994 Constitutional general appearance Hygiene/Attention to Grooming: good hygiene 07/01/2016 None Full Exam - General 1994 Constitutional general appearance Assistive Device: walker 07/01/2016 None Full Exam - General 1994 Eyes conjunctiva/eyelids Overall: conjunctiva clear 07/01/2016 None Full Exam - General 1994 Ears/Nose/Throat otoscopic exam Overall: external auditory canals clear 07/01/2016 None Full Exam - General 1994 Ears/Nose/Throat otoscopic exam Overall: tympanic membranes clear 07/01/2016 None Full Exam - General 1994 Ears/Nose/Throat oral cavity/pharynx/larynx Overall: oral mucosa clear 07/01/2016 None Full Exam - General 1994 Respiratory auscultation Overall: breath sounds clear bilaterally 07/01/2016 None Full Exam - General 1994 Respiratory respiratory effort/rhythm Overall: no retractions 07/01/2016 None Full Exam - General 1994 Respiratory respiratory effort/rhythm Overall: normal rate 07/01/2016 None Full Exam - General 1994 Cardiovascular extremities Edema present: pitting 07/01/2016 None Full Exam - General 1994 Cardiovascular extremities Edema present: severity 1+ - 4+: 1+ R>L 07/01/2016 None Full Exam - General 1994 Cardiovascular auscultation of heart Overall: regular rate 07/01/2016 None Full Exam - General 1994 Cardiovascular auscultation of heart Overall: normal heart sounds 07/01/2016 None Full Exam - General 1994 Abdomen abdominal exam Overall: no tenderness 07/01/2016 None Full Exam - General 1994 Abdomen abdominal exam Overall: normal bowel sounds 07/01/2016 colostomy LLQ Full Exam - General 1994 Abdomen abdominal exam Suprapubic: non-tender to palpation 07/01/2016 catheter Full Exam - General 1994 Integument inspection of skin Overall: few scattered moles, no gross abnormalities 07/01/2016 None Full Exam - General 1994 Neurologic gait Conventional walking: ataxic rhythm 07/01/2016 None Full Exam - General 1994 Psychiatric orientation/consciousness Overall: oriented to person, place and time 07/01/2016 None Full Exam - General 1994 Musculoskeletal upper extremity ROM - shoulder: decreased abduction 07/01/2016 unable to abduct past 90 degrees Full Exam - General 1994 Musculoskeletal upper extremity ROM - shoulder: decreased adduction 07/01/2016 None Full Exam - General 1994 Constitutional general appearance Overall: well developed 05/05/2016 None Full Exam - General 1994 Constitutional general appearance Overall: in no acute distress 05/05/2016 None Full Exam - General 1994 Constitutional general appearance Overall: well nourished 05/05/2016 None Full Exam - General 1994 Constitutional general appearance Assistive Device: walker 05/05/2016 None Full Exam - General 1994 Eyes conjunctiva/eyelids Overall: conjunctiva clear 05/05/2016 None Full Exam - General 1994 Ears/Nose/Throat lips/teeth/gingiva Overall: benign lips 05/05/2016 None Full Exam - General 1994 Ears/Nose/Throat oral cavity/pharynx/larynx Overall: oral mucosa clear 05/05/2016 None Full Exam - General 1994 Respiratory auscultation Overall: breath sounds clear bilaterally 05/05/2016 None Full Exam - General 1994 Respiratory respiratory effort/rhythm Overall: no retractions 05/05/2016 None Full Exam - General 1994 Respiratory respiratory effort/rhythm Overall: normal rate 05/05/2016 None Full Exam - General 1994 Cardiovascular auscultation of heart Overall: regular rate 05/05/2016 None Full Exam - General 1994 Cardiovascular auscultation of heart Overall: normal heart sounds 05/05/2016 None Full Exam - General 1994 Neurologic gait Conventional walking: ataxic rhythm 05/05/2016 None Full Exam - General 1994 Psychiatric orientation/consciousness Overall: oriented to person, place and time 05/05/2016 None Full Exam - General 1994 Psychiatric mood and affect Overall: normal mood and affect 05/05/2016 None Full Exam - General 1994 Psychiatric appearance Overall: well-groomed, good eye contact 05/05/2016 None Full Exam - General 1994 Abdomen abdominal exam Overall: no tenderness 05/05/2016 None Full Exam - General 1994 Abdomen abdominal exam Overall: normal bowel sounds 05/05/2016 None Full Exam - General 1994 Integument inspection of skin Overall: no rash, lesions 05/05/2016 None Full Exam - Orthopedics Constitutional general appearance Overall: well nourished 02/23/2016 None Full Exam - Orthopedics Constitutional general appearance Overall: well developed 02/23/2016 None Full Exam - Orthopedics Constitutional general appearance Overall: in no acute distress 02/23/2016 None Full Exam - Orthopedics Eyes conjunctiva/eyelids Overall: conjunctiva clear 02/23/2016 None Full Exam - Orthopedics Eyes conjunctiva/eyelids Overall: eyelids normal 02/23/2016 None Full Exam - Orthopedics Ears/Nose/Throat lips/teeth/gingiva Overall: benign lips 02/23/2016 None Full Exam - Orthopedics Ears/Nose/Throat oral cavity/pharynx/larynx Overall: oral mucosa clear 02/23/2016 None Full Exam - Orthopedics Respiratory respiratory effort/rhythm Overall: no retractions 02/23/2016 None Full Exam - Orthopedics Respiratory respiratory effort/rhythm Overall: normal rate 02/23/2016 None Full Exam - Orthopedics Psychiatric orientation/consciousness Overall: oriented to person, place and time 02/23/2016 None Full Exam - Orthopedics Psychiatric mood and affect Overall: normal mood and affect 02/23/2016 None Full Exam - Orthopedics Psychiatric appearance Overall: well-groomed, good eye contact 02/23/2016 None Full Exam - Orthopedics MS: right upper extremity insp & palp - RUE Shoulder: normal appearance 02/23/2016 None Full Exam - Orthopedics MS: right upper extremity range of motion - RUE Shoulder: pain with flexion 02/23/2016 None Full Exam - Orthopedics MS: right upper extremity range of motion - RUE Shoulder: pain with extension 02/23/2016 None Full Exam - General 1994 Constitutional general appearance Overall: well developed 09/16/2015 None Full Exam - General 1994 Constitutional general appearance Overall: in no acute distress 09/16/2015 None Full Exam - General 1994 Constitutional general appearance Overall: well nourished 09/16/2015 None Full Exam - General 1994 Constitutional general appearance Assistive Device: walker 09/16/2015 None Full Exam - General 1994 Eyes conjunctiva/eyelids Overall: conjunctiva clear 09/16/2015 None Full Exam - General 1994 Ears/Nose/Throat lips/teeth/gingiva Overall: benign lips 09/16/2015 None Full Exam - General 1994 Ears/Nose/Throat oral cavity/pharynx/larynx Overall: oral mucosa clear 09/16/2015 None Full Exam - General 1994 Respiratory auscultation Overall: breath sounds clear bilaterally 09/16/2015 None Full Exam - General 1994 Respiratory respiratory effort/rhythm Overall: no retractions 09/16/2015 None Full Exam - General 1994 Respiratory respiratory effort/rhythm Overall: normal rate 09/16/2015 None Full Exam - General 1994 Cardiovascular auscultation of heart Overall: regular rate 09/16/2015 None Full Exam - General 1994 Cardiovascular auscultation of heart Overall: normal heart sounds 09/16/2015 None Full Exam - General 1994 Neurologic gait Conventional walking: ataxic rhythm 09/16/2015 None Full Exam - General 1994 Psychiatric orientation/consciousness Overall: oriented to person, place and time 09/16/2015 None Full Exam - General 1994 Psychiatric mood and affect Overall: normal mood and affect 09/16/2015 None Full Exam - General 1994 Constitutional general appearance Overall: well developed 07/24/2015 None Full Exam - General 1994 Constitutional general appearance Overall: well nourished 07/24/2015 None Full Exam - General 1994 Constitutional general appearance Assistive Device: walker 07/24/2015 None Full Exam - General 1994 Eyes conjunctiva/eyelids Overall: conjunctiva clear 07/24/2015 None Full Exam - General 1994 Ears/Nose/Throat oral cavity/pharynx/larynx Overall: oral mucosa clear 07/24/2015 None Full Exam - General 1994 Respiratory auscultation Overall: breath sounds clear bilaterally 07/24/2015 None Full Exam - General 1994 Respiratory respiratory effort/rhythm Overall: no retractions 07/24/2015 None Full Exam - General 1994 Respiratory respiratory effort/rhythm Overall: normal rate 07/24/2015 None Full Exam - General 1994 Cardiovascular auscultation of heart Overall: regular rate 07/24/2015 None Full Exam - General 1994 Cardiovascular auscultation of heart Overall: normal heart sounds 07/24/2015 None Full Exam - General 1994 Abdomen abdominal exam Overall: normal bowel sounds 07/24/2015 None Full Exam - General 1994 Abdomen abdominal exam Upper quadrant: non-tender to palpation 07/24/2015 None Full Exam - General 1994 Abdomen abdominal exam Upper quadrant: no guarding 07/24/2015 None Full Exam - General 1994 Abdomen abdominal exam Upper quadrant: no rebound tenderness 07/24/2015 None Full Exam - General 1994 Abdomen abdominal exam Upper quadrant: no mass lesions 07/24/2015 None Full Exam - General 1994 Abdomen abdominal exam Upper quadrant: soft 07/24/2015 None Full Exam - General 1994 Abdomen abdominal exam Lower quadrant: non-tender to palpation 07/24/2015 None Full Exam - General 1994 Abdomen abdominal exam Lower quadrant: no guarding 07/24/2015 None Full Exam - General 1994 Abdomen abdominal exam Lower quadrant: no rebound tenderness 07/24/2015 None Full Exam - General 1994 Abdomen abdominal exam Lower quadrant: no mass lesions 07/24/2015 None Full Exam - General 1994 Abdomen abdominal exam Lower quadrant: soft 07/24/2015 None Full Exam - General 1994 Neurologic gait Conventional walking: ataxic rhythm 07/24/2015 None Full Exam - General 1994 Psychiatric orientation/consciousness Overall: oriented to person, place and time 07/24/2015 None Full Exam - General 1994 Constitutional general appearance Overall: in no acute distress 07/24/2015 None Full Exam - General 1994 Ears/Nose/Throat oral cavity/pharynx/larynx Oral mucosa: dry 07/24/2015 None Full Exam - General 1994 Ears/Nose/Throat lips/teeth/gingiva Overall: benign lips 07/24/2015 None Full Exam - General 1994 Integument inspection of skin Overall: no rash, lesions 07/24/2015 None Full Exam - General 1994 Psychiatric mood and affect Overall: normal mood and affect 07/24/2015 None Full Exam - General 1994 Constitutional general appearance Overall: well developed 03/20/2015 None Full Exam - General 1994 Constitutional general appearance Overall: well nourished 03/20/2015 None Full Exam - General 1994 Constitutional general appearance Assistive Device: walker 03/20/2015 None Full Exam - General 1994 Eyes conjunctiva/eyelids Overall: conjunctiva clear 03/20/2015 None Full Exam - General 1994 Ears/Nose/Throat otoscopic exam Overall: external auditory canals clear 03/20/2015 None Full Exam - General 1994 Ears/Nose/Throat otoscopic exam Overall: tympanic membranes clear 03/20/2015 None Full Exam - General 1994 Ears/Nose/Throat oral cavity/pharynx/larynx Overall: oral mucosa clear 03/20/2015 None Full Exam - General 1994 Respiratory auscultation Overall: breath sounds clear bilaterally 03/20/2015 None Full Exam - General 1994 Respiratory respiratory effort/rhythm Overall: no retractions 03/20/2015 None Full Exam - General 1994 Respiratory respiratory effort/rhythm Overall: normal rate 03/20/2015 None Full Exam - General 1994 Cardiovascular auscultation of heart Overall: regular rate 03/20/2015 None Full Exam - General 1994 Cardiovascular auscultation of heart Overall: normal heart sounds 03/20/2015 None Full Exam - General 1994 Abdomen abdominal exam Overall: normal bowel sounds 03/20/2015 None Full Exam - General 1994 Neurologic gait Conventional walking: ataxic rhythm 03/20/2015 None Full Exam - General 1994 Psychiatric orientation/consciousness Overall: oriented to person, place and time 03/20/2015 None Full Exam - General 1994 Psychiatric speech Overall: normal quality, no aphasia 03/20/2015 None Full Exam - General 1994 Constitutional general appearance Overall: in no acute distress 03/20/2015 None Full Exam - General 1994 Ears/Nose/Throat oral cavity/pharynx/larynx Overall: oropharyngeal mucosa clear 03/20/2015 None Full Exam - General 1994 Ears/Nose/Throat oral cavity/pharynx/larynx Overall: no masses 03/20/2015 None Full Exam - General 1994 Cardiovascular extremities Edema present: pitting 03/20/2015 trace Full Exam - General 1994 Abdomen abdominal exam Overall: no tenderness 03/20/2015 None Full Exam - General 1994 Integument inspection of skin Location: left leg 03/20/2015 None Full Exam - General 1994 Integument inspection of skin Location: right leg 03/20/2015 None Full Exam - General 1994 Integument inspection of skin Rash/Lesions: macule 03/20/2015 None Full Exam - General 1994 Integument inspection of skin Pigmentation: erythematous 03/20/2015 None Full Exam - General 1994 Integument inspection of skin Consistency: dry 03/20/2015 None Full Exam - General 1994 Psychiatric appearance Overall: well-groomed, good eye contact 03/20/2015 None Full Exam - General 1994 Constitutional general appearance Overall: well developed 01/13/2015 None Full Exam - General 1994 Constitutional general appearance Overall: well nourished 01/13/2015 None Full Exam - General 1994 Constitutional general appearance Assistive Device: walker 01/13/2015 None Full Exam - General 1994 Eyes conjunctiva/eyelids Overall: conjunctiva clear 01/13/2015 None Full Exam - General 1994 Ears/Nose/Throat otoscopic exam Overall: external auditory canals clear 01/13/2015 None Full Exam - General 1994 Ears/Nose/Throat otoscopic exam Overall: tympanic membranes clear 01/13/2015 None Full Exam - General 1994 Ears/Nose/Throat oral cavity/pharynx/larynx Overall: oral mucosa clear 01/13/2015 None Full Exam - General 1994 Respiratory auscultation Overall: breath sounds clear bilaterally 01/13/2015 None Full Exam - General 1994 Respiratory respiratory effort/rhythm Overall: no retractions 01/13/2015 None Full Exam - General 1994 Respiratory respiratory effort/rhythm Overall: normal rate 01/13/2015 None Full Exam - General 1994 Cardiovascular extremities Edema present: pitting 01/13/2015 None Full Exam - General 1994 Cardiovascular extremities Edema present: severity 1+ - 4+: 1+ R>L 01/13/2015 None Full Exam - General 1994 Cardiovascular auscultation of heart Overall: regular rate 01/13/2015 None Full Exam - General 1994 Cardiovascular auscultation of heart Overall: normal heart sounds 01/13/2015 None Full Exam - General 1994 Abdomen abdominal exam Overall: normal bowel sounds 01/13/2015 None Full Exam - General 1994 Integument inspection of skin Overall: few scattered moles, no gross abnormalities 01/13/2015 None Full Exam - General 1994 Neurologic gait Conventional walking: ataxic rhythm 01/13/2015 None Full Exam - General 1994 Psychiatric orientation/consciousness Overall: oriented to person, place and time 01/13/2015 None Full Exam - General 1994 Constitutional general appearance Evidence of Distress: mild distress 01/13/2015 None Full Exam - General 1994 Abdomen abdominal exam Upper quadrant: non-tender to palpation 01/13/2015 None Full Exam - General 1994 Abdomen abdominal exam Upper quadrant: no guarding 01/13/2015 None Full Exam - General 1994 Abdomen abdominal exam Upper quadrant: no rebound tenderness 01/13/2015 None Full Exam - General 1994 Abdomen abdominal exam Upper quadrant: no mass lesions 01/13/2015 None Full Exam - General 1994 Abdomen abdominal exam Upper quadrant: soft 01/13/2015 None Full Exam - General 1994 Abdomen abdominal exam Lower quadrant: non-tender to palpation 01/13/2015 None Full Exam - General 1994 Abdomen abdominal exam Lower quadrant: no guarding 01/13/2015 None Full Exam - General 1994 Abdomen abdominal exam Lower quadrant: no rebound tenderness 01/13/2015 None Full Exam - General 1994 Abdomen abdominal exam Lower quadrant: no mass lesions 01/13/2015 None Full Exam - General 1994 Abdomen abdominal exam Lower quadrant: soft 01/13/2015 None Full Exam - General 1994 Abdomen abdominal exam Epigastric: no guarding 01/13/2015 None Full Exam - General 1994 Abdomen abdominal exam Epigastric: no rebound tenderness 01/13/2015 None Full Exam - General 1994 Abdomen abdominal exam Epigastric: no mass lesions 01/13/2015 None Full Exam - General 1994 Abdomen abdominal exam Epigastric: soft 01/13/2015 None Full Exam - General 1994 Abdomen abdominal exam Periumbilical: dull pain 01/13/2015 None Full Exam - General 1994 Psychiatric appearance Grooming: sickly 01/13/2015 Diaphoretic Full Exam - General 1994 Psychiatric speech Rate of production: slow 01/13/2015 None Full Exam - General 1994 Abdomen abdominal exam Epigastric: tender to palpation 01/13/2015 None Full Exam - General 1994 Abdomen abdominal exam Epigastric: dull pain 01/13/2015 None Full Exam - General 1994 Abdomen abdominal exam Periumbilical: tender to palpation 01/13/2015 None Full Exam - General 1994 Psychiatric speech Overall: normal quality, no aphasia 01/13/2015 None Full Exam - General 1994 Constitutional general appearance Overall: well developed 12/05/2014 None Full Exam - General 1994 Constitutional general appearance Overall: in no acute distress 12/05/2014 None Full Exam - General 1994 Constitutional general appearance Overall: well nourished 12/05/2014 None Full Exam - General 1994 Constitutional general appearance Hygiene/Attention to Grooming: good hygiene 12/05/2014 None Full Exam - General 1994 Eyes conjunctiva/eyelids Overall: conjunctiva clear 12/05/2014 None Full Exam - General 1994 Ears/Nose/Throat otoscopic exam Overall: external auditory canals clear 12/05/2014 None Full Exam - General 1994 Ears/Nose/Throat otoscopic exam Overall: tympanic membranes clear 12/05/2014 None Full Exam - General 1994 Ears/Nose/Throat oral cavity/pharynx/larynx Overall: oral mucosa clear 12/05/2014 None Full Exam - General 1994 Respiratory auscultation Overall: breath sounds clear bilaterally 12/05/2014 None Full Exam - General 1994 Respiratory respiratory effort/rhythm Overall: no retractions 12/05/2014 None Full Exam - General 1994 Respiratory respiratory effort/rhythm Overall: normal rate 12/05/2014 None Full Exam - General 1994 Cardiovascular extremities Edema present: pitting 12/05/2014 1+ Full Exam - General 1994 Cardiovascular auscultation of heart Overall: regular rate 12/05/2014 None Full Exam - General 1994 Cardiovascular auscultation of heart Overall: normal heart sounds 12/05/2014 None Full Exam - General 1994 Abdomen abdominal exam Overall: no tenderness 12/05/2014 None Full Exam - General 1994 Abdomen abdominal exam Overall: normal bowel sounds 12/05/2014 None Full Exam - General 1994 Abdomen abdominal exam Suprapubic: non-tender to palpation 12/05/2014 catheter Full Exam - General 1994 Integument inspection of skin Overall: few scattered moles, no gross abnormalities 12/05/2014 None Full Exam - General 1994 Neurologic gait Conventional walking: ataxic rhythm 12/05/2014 None Full Exam - General 1994 Psychiatric orientation/consciousness Overall: oriented to person, place and time 12/05/2014 None Full Exam - General 1994 Eyes pupils and irises Overall: pupils equal, round, reactive to light and accomodation 12/05/2014 None Full Exam - General 1994 Cardiovascular extremities Edema present: severity 1+ - 4+: _ 12/05/2014 1+ Full Exam - General 1994 Constitutional general appearance Overall: well developed 10/03/2014 None Full Exam - General 1994 Constitutional general appearance Overall: in no acute distress 10/03/2014 None Full Exam - General 1994 Constitutional general appearance Overall: well nourished 10/03/2014 None Full Exam - General 1994 Constitutional general appearance Hygiene/Attention to Grooming: good hygiene 10/03/2014 None Full Exam - General 1994 Eyes conjunctiva/eyelids Overall: conjunctiva clear 10/03/2014 None Full Exam - General 1994 Ears/Nose/Throat otoscopic exam Overall: external auditory canals clear 10/03/2014 None Full Exam - General 1994 Ears/Nose/Throat otoscopic exam Overall: tympanic membranes clear 10/03/2014 None Full Exam - General 1994 Ears/Nose/Throat oral cavity/pharynx/larynx Overall: oral mucosa clear 10/03/2014 None Full Exam - General 1994 Respiratory auscultation Overall: breath sounds clear bilaterally 10/03/2014 None Full Exam - General 1994 Respiratory respiratory effort/rhythm Overall: no retractions 10/03/2014 None Full Exam - General 1994 Respiratory respiratory effort/rhythm Overall: normal rate 10/03/2014 None Full Exam - General 1994 Cardiovascular extremities Edema present: pitting 10/03/2014 None Full Exam - General 1994 Cardiovascular extremities Edema present: severity 1+ - 4+: 1+ R>L 10/03/2014 None Full Exam - General 1994 Cardiovascular auscultation of heart Overall: regular rate 10/03/2014 None Full Exam - General 1994 Cardiovascular auscultation of heart Overall: normal heart sounds 10/03/2014 None Full Exam - General 1994 Abdomen abdominal exam Overall: no tenderness 10/03/2014 None Full Exam - General 1994 Abdomen abdominal exam Overall: normal bowel sounds 10/03/2014 None Full Exam - General 1994 Abdomen abdominal exam Suprapubic: non-tender to palpation 10/03/2014 catheter Full Exam - General 1994 Integument inspection of skin Overall: few scattered moles, no gross abnormalities 10/03/2014 None Full Exam - General 1994 Neurologic gait Conventional walking: ataxic rhythm 10/03/2014 None Full Exam - General 1994 Psychiatric orientation/consciousness Overall: oriented to person, place and time 10/03/2014 None Full Exam - General 1994 Constitutional general appearance Overall: well developed 09/15/2014 None Full Exam - General 1994 Constitutional general appearance Overall: in no acute distress 09/15/2014 None Full Exam - General 1994 Constitutional general appearance Overall: well nourished 09/15/2014 None Full Exam - General 1994 Constitutional general appearance Hygiene/Attention to Grooming: good hygiene 09/15/2014 None Full Exam - General 1994 Constitutional general appearance Assistive Device: walker 09/15/2014 None Full Exam - General 1994 Eyes conjunctiva/eyelids Overall: conjunctiva clear 09/15/2014 None Full Exam - General 1994 Ears/Nose/Throat otoscopic exam Overall: external auditory canals clear 09/15/2014 None Full Exam - General 1994 Ears/Nose/Throat otoscopic exam Overall: tympanic membranes clear 09/15/2014 None Full Exam - General 1994 Ears/Nose/Throat oral cavity/pharynx/larynx Overall: oral mucosa clear 09/15/2014 None Full Exam - General 1994 Respiratory auscultation Overall: breath sounds clear bilaterally 09/15/2014 None Full Exam - General 1994 Respiratory respiratory effort/rhythm Overall: no retractions 09/15/2014 None Full Exam - General 1994 Respiratory respiratory effort/rhythm Overall: normal rate 09/15/2014 None Full Exam - General 1994 Cardiovascular extremities Edema present: pitting 09/15/2014 None Full Exam - General 1994 Cardiovascular extremities Edema present: severity 1+ - 4+: 1+ R>L 09/15/2014 None Full Exam - General 1994 Cardiovascular auscultation of heart Overall: regular rate 09/15/2014 None Full Exam - General 1994 Cardiovascular auscultation of heart Overall: normal heart sounds 09/15/2014 None Full Exam - General 1994 Abdomen abdominal exam Overall: no tenderness 09/15/2014 None Full Exam - General 1994 Abdomen abdominal exam Overall: normal bowel sounds 09/15/2014 None Full Exam - General 1994 Abdomen abdominal exam Suprapubic: non-tender to palpation 09/15/2014 catheter Full Exam - General 1994 Integument inspection of skin Overall: few scattered moles, no gross abnormalities 09/15/2014 None Full Exam - General 1994 Neurologic gait Conventional walking: ataxic rhythm 09/15/2014 None Full Exam - General 1994 Psychiatric orientation/consciousness Overall: oriented to person, place and time 09/15/2014 None Full Exam - General 1994 Lymphatic neck nodes Overall: anterior cervical chain benign 09/15/2014 None Full Exam - General 1994 Lymphatic neck nodes Overall: posterior cervical chain benign 09/15/2014 None Full Exam - General 1994 Constitutional general appearance Overall: well developed 09/05/2014 None Full Exam - General 1994 Constitutional general appearance Overall: in no acute distress 09/05/2014 None Full Exam - General 1994 Constitutional general appearance Overall: well nourished 09/05/2014 None Full Exam - General 1994 Constitutional general appearance Hygiene/Attention to Grooming: good hygiene 09/05/2014 None Full Exam - General 1994 Constitutional general appearance Assistive Device: walker 09/05/2014 None Full Exam - General 1994 Eyes conjunctiva/eyelids Overall: conjunctiva clear 09/05/2014 None Full Exam - General 1994 Ears/Nose/Throat otoscopic exam Overall: external auditory canals clear 09/05/2014 None Full Exam - General 1994 Ears/Nose/Throat otoscopic exam Overall: tympanic membranes clear 09/05/2014 None Full Exam - General 1994 Ears/Nose/Throat oral cavity/pharynx/larynx Overall: oral mucosa clear 09/05/2014 None Full Exam - General 1994 Respiratory auscultation Overall: breath sounds clear bilaterally 09/05/2014 None Full Exam - General 1994 Respiratory respiratory effort/rhythm Overall: no retractions 09/05/2014 None Full Exam - General 1994 Respiratory respiratory effort/rhythm Overall: normal rate 09/05/2014 None Full Exam - General 1994 Cardiovascular extremities Edema present: pitting 09/05/2014 None Full Exam - General 1994 Cardiovascular extremities Edema present: severity 1+ - 4+: 1+ R>L 09/05/2014 None Full Exam - General 1994 Cardiovascular auscultation of heart Overall: regular rate 09/05/2014 None Full Exam - General 1994 Cardiovascular auscultation of heart Overall: normal heart sounds 09/05/2014 None Full Exam - General 1994 Abdomen abdominal exam Overall: no tenderness 09/05/2014 None Full Exam - General 1994 Abdomen abdominal exam Overall: normal bowel sounds 09/05/2014 None Full Exam - General 1994 Abdomen abdominal exam Suprapubic: non-tender to palpation 09/05/2014 catheter Full Exam - General 1994 Integument inspection of skin Overall: few scattered moles, no gross abnormalities 09/05/2014 None Full Exam - General 1994 Neurologic gait Conventional walking: ataxic rhythm 09/05/2014 None Full Exam - General 1994 Psychiatric orientation/consciousness Overall: oriented to person, place and time 09/05/2014 None Full Exam - General 1994 Constitutional general appearance Overall: well developed 07/04/2014 None Full Exam - General 1994 Constitutional general appearance Overall: in no acute distress 07/04/2014 None Full Exam - General 1994 Constitutional general appearance Overall: well nourished 07/04/2014 None Full Exam - General 1994 Constitutional general appearance Assistive Device: walker 07/04/2014 None Full Exam - General 1994 Constitutional general appearance Hygiene/Attention to Grooming: good hygiene 07/04/2014 None Full Exam - General 1994 Psychiatric orientation/consciousness Overall: oriented to person, place and time 07/04/2014 None Full Exam - General 1994 Neurologic gait Conventional walking: ataxic rhythm 07/04/2014 None Full Exam - General 1994 Integument inspection of skin Overall: few scattered moles, no gross abnormalities 07/04/2014 None Full Exam - General 1994 Abdomen abdominal exam Overall: no tenderness 07/04/2014 None Full Exam - General 1994 Abdomen abdominal exam Overall: normal bowel sounds 07/04/2014 None Full Exam - General 1994 Abdomen abdominal exam Suprapubic: non-tender to palpation 07/04/2014 catheter Full Exam - General 1994 Cardiovascular auscultation of heart Overall: regular rate 07/04/2014 None Full Exam - General 1994 Cardiovascular auscultation of heart Overall: normal heart sounds 07/04/2014 None Full Exam - General 1994 Respiratory auscultation Overall: breath sounds clear bilaterally 07/04/2014 None Full Exam - General 1994 Respiratory respiratory effort/rhythm Overall: no retractions 07/04/2014 None Full Exam - General 1994 Respiratory respiratory effort/rhythm Overall: normal rate 07/04/2014 None Full Exam - General 1994 Cardiovascular extremities Edema present: pitting 07/04/2014 None Full Exam - General 1994 Cardiovascular extremities Edema present: severity 1+ - 4+: 1+ R>L 07/04/2014 None Full Exam - General 1994 Ears/Nose/Throat otoscopic exam Overall: external auditory canals clear 07/04/2014 None Full Exam - General 1994 Ears/Nose/Throat otoscopic exam Overall: tympanic membranes clear 07/04/2014 None Full Exam - General 1994 Ears/Nose/Throat oral cavity/pharynx/larynx Overall: oral mucosa clear 07/04/2014 None Full Exam - General 1994 Eyes conjunctiva/eyelids Overall: conjunctiva clear 07/04/2014 None Procedures Procedure Codes Date THER/PROPH/DIAG INJ SC/IM CPT-4: 33021 05/22/2018 ROCEPHIN, PER 250 MG CPT- 4: J0696 05/22/2018 THER/PROPH/DIAG INJ SC/IM CPT-4: 91167 04/20/2018 TRIAMCINOLONE ACET INJ NOS CPT-4: J3301 04/20/2018 URINALYSIS NONAUTO W/O SCOPE CPT-4: 30671 12/14/2017 URINALYSIS NONAUTO W/O SCOPE CPT-4: 94437 05/15/2017 URINALYSIS NONAUTO W/O SCOPE CPT-4: 20150 09/18/2015 ADMIN INFLUENZA VIRUS VAC CPT-4: G0008 12/31/2014 FLU VACC PRSV FREE INC ANTIG Formatting Model/CDA Sections, Assigned to/[place] [employer] CPT-4: [id number] 12/31/2014 URINALYSIS NONAUTO W/O SCOPE CPT-4: 31747 12/10/2014 URINALYSIS NONAUTO W/O SCOPE CPT-4: 72320 11/24/2014 ROCEPHIN, PER 250 MG CPT- 4: J0696 09/05/2014 THER/PROPH/DIAG INJ SC/IM CPT-4: 34464 09/05/2014 URINALYSIS NONAUTO W/O SCOPE CPT-4: 73353 09/04/2014 Vital Signs Date Vital 07/06/2018 Blood Pressure 1: 128/64 Code: 8480-6 Heart Rate 1: 78 bpm Height: SpO2: 97% Weight: 05/25/2018 Blood Pressure 1: 118/70 Code: 8480-6 Heart Rate 1: 68 bpm Height: SpO2: 98% Weight: 05/22/2018 Blood Pressure 1: 108/44 Code: 8480-6 Heart Rate 1: 67 bpm Height: SpO2: 96% Temperature: 36.6 (C) / 97.8 (F) Weight: 04/20/2018 Blood Pressure 1: 118/60 Code: 8480-6 Heart Rate 1: 70 bpm Height: SpO2: 97% Temperature: 36.8 (C) / 98.2 (F) Weight: 11/14/2017 Blood Pressure 1: 128/62 Code: 8480-6 Heart Rate 1: 64 bpm Height: SpO2: 94% Temperature: 36.2 (C) / 97.1 (F) Weight: 08/15/2017 Blood Pressure 1: 136/72 Code: 8480-6 Heart Rate 1: 70 bpm SpO2: 95% 06/29/2017 Blood Pressure 1: 134/68 Code: 8480-6 Heart Rate 1: 76 bpm Height: SpO2: 96% Weight: 03/30/2017 Blood Pressure 1: 130/66 Code: 8480-6 Heart Rate 1: 70 bpm Height: 5'9" SpO2: 97% Weight: 10/07/2016 Blood Pressure 1: 138/60 Code: 8480-6 BMI: 37.2 Code: 05849-2 Heart Rate 1: 79 bpm Height: 5'9" SpO2: 91% Weight: 252 lbs 07/01/2016 Blood Pressure 1: 138/68 Code: 8480-6 BMI: 37.2 Code: 61281-4 Heart Rate 1: 69 bpm Height: 5'9" SpO2: 93% Weight: 252 lbs 05/05/2016 Blood Pressure 1: 136/78 Code: 8480-6 BMI: 39.3 Code: 97274-9 Heart Rate 1: 72 bpm Height: 5'9" SpO2: 97% Weight: 266 lbs 02/23/2016 Blood Pressure 1: 145/70 Code: 8480-6 BMI: 37.5 Code: 66446-9 Heart Rate 1: 80 bpm Height: 5'9" Weight: 254 lbs 09/16/2015 Blood Pressure 1: 140/62 Code: 8480-6 Heart Rate 1: 77 bpm Height: 5'9" SpO2: 93% Weight: 07/24/2015 Blood Pressure 1: 152/68 Code: 8480-6 BMI: 37.7 Code: 01926-7 Heart Rate 1: 73 bpm Height: 5'9" SpO2: 97% Weight: 255 lbs 03/20/2015 Blood Pressure 1: 146/74 Code: 8480-6 BMI: 38.1 Code: 59813-5 Heart Rate 1: 63 bpm Height: 5'9" Weight: 258 lbs 01/13/2015 Blood Pressure 1: 120/58 Code: 8480-6 Heart Rate 1: 52 bpm Height: 5'9" SpO2: 97% Temperature: 37.1 (C) / 98.7 (F) Weight: 12/05/2014 Blood Pressure 1: 134/54 Code: 8480-6 BMI: 36.3 Code: 60761-9 Heart Rate 1: 76 bpm Height: 5'9" SpO2: 93% Weight: 246 lbs 10/03/2014 Blood Pressure 1: 132/60 Code: 8480-6 Heart Rate 1: 76 bpm Height: SpO2: 95% Weight: 254 lbs 09/15/2014 Blood Pressure 1: 120/68 Code: 8480-6 BMI: 37.5 Code: 04052-9 Heart Rate 1: 76 bpm Height: 5'9" SpO2: 93% Weight: 254 lbs 09/05/2014 Blood Pressure 1: 110/50 Code: 8480-6 BMI: 37.4 Code: 33488-2 Heart Rate 1: 79 bpm Height: 5'9" SpO2: 96% Temperature: 36.3 (C) / 97.4 (F) Weight: 253 lbs 07/04/2014 Blood Pressure 1: 138/72 Code: 8480-6 BMI: 37.1 Code: 47691-2 Heart Rate 1: 72 bpm Height: 5'9" SpO2: 93% Weight: 251 lbs Functional Status No Functional Status data History of Present Illness Symptom Name Status Result Effective Date Notes Quality acute 07/06/2018 None Quality improving 07/06/2018 None Pertinent Findings Denies fever 07/06/2018 None Quality breathlessness 07/06/2018 None Onset and Resolution ongoing 07/06/2018 None Location in the lung 07/06/2018 None Onset and Resolution ongoing 07/06/2018 None Onset of Symptom 2 months ago 07/06/2018 None Limitation on Activities moderately limits activities 07/06/2018 None Frequency of Episodes increasing 07/06/2018 None Significant Family History pulmonary disease 07/06/2018 None Significant Medical Conditions pulmonary disease 07/06/2018 None Triggers activity 07/06/2018 None Alleviating Factors medication 07/06/2018 oxygen Pertinent Findings Denies cough 07/06/2018 None Pertinent Findings Denies nausea 07/06/2018 None Location in the lung 05/25/2018 None Quality acute 05/25/2018 None Quality improving 05/25/2018 None Pertinent Findings Denies fever 05/25/2018 None _ Other: CHF 05/22/2018 None _ pneumonia 05/22/2018 None Quality acute 05/22/2018 None Quality chronic illness 05/22/2018 None Pertinent Findings Denies fever 05/22/2018 None Quality chronic 05/22/2018 None Quality worsening 05/22/2018 None Onset and Resolution ongoing 05/22/2018 None Pertinent Findings Denies cough 05/22/2018 None Location frontal sinuses 04/20/2018 None Quality constant 04/20/2018 None Quality fullness 04/20/2018 None Onset and Resolution sudden in onset 04/20/2018 None Onset of Symptom 2 weeks ago 04/20/2018 None Location in the throat 04/20/2018 None Quality constant 04/20/2018 None Quality hacking 04/20/2018 None Onset and Resolution sudden in onset 04/20/2018 None Onset of Symptom 2 weeks ago 04/20/2018 None Location diffusely 04/20/2018 None Quality aching 04/20/2018 None Quality constant 04/20/2018 None Quality scratchy 04/20/2018 None Onset and Resolution sudden in onset 04/20/2018 None fatigue Onset and Resolution sudden in onset 11/14/2017 None fatigue Onset of Symptom 3-4 days ago 11/14/2017 None fatigue Limitation on Activities does not limit activities 11/14/2017 None fatigue Frequency of Episodes daily 11/14/2017 None fatigue Pertinent Findings back pain 11/14/2017 lower back oral pain Location diffusely 08/15/2017 None oral pain Location on the mobile tongue 08/15/2017 None oral pain Quality acute 08/15/2017 None oral pain Onset and Resolution sudden in onset 08/15/2017 None oral pain Onset of Symptom 3 days ago 08/15/2017 None oral pain Limitation on Activities limits oral intake 08/15/2017 None oral pain Pertinent Findings Denies fever 08/15/2017 None depression Quality chronic 06/29/2017 None depression Quality worsening 06/29/2017 None depression Onset and Resolution ongoing 06/29/2017 None depression Pertinent Findings anxiety 06/29/2017 None depression Pertinent Findings depressed mood 06/29/2017 None depression Pertinent Findings Denies self harm 06/29/2017 None depression Pertinent Findings Denies suicide attempt/plan 06/29/2017 None depression Pertinent Findings Denies suicidal ideation 06/29/2017 None muscle weakness Location diffusely 03/30/2017 None muscle weakness Quality acute 03/30/2017 None muscle weakness Quality upper extremities 03/30/2017 None muscle weakness Quality lower extremities 03/30/2017 None muscle weakness Quality both sides 03/30/2017 None muscle weakness Onset and Resolution gradual in onset 03/30/2017 None muscle weakness Onset and Resolution ongoing 03/30/2017 None muscle weakness Onset of Symptom 2 months ago 03/30/2017 None muscle weakness Frequency of Episodes daily 03/30/2017 None muscle weakness Quality worsening 03/30/2017 None muscle weakness Triggers no known associated factors 03/30/2017 None fatigue Quality acute 03/30/2017 None fatigue Quality worsening 03/30/2017 None fatigue Onset and Resolution gradual in onset 03/30/2017 None fatigue Onset and Resolution ongoing 03/30/2017 None fatigue Onset of Symptom 2 months ago 03/30/2017 None fatigue Frequency of Episodes daily 03/30/2017 None fatigue Triggers no known associated factors 03/30/2017 None fatigue Pertinent Findings chills 03/30/2017 None fatigue Pertinent Findings weakness 03/30/2017 None cough Location in the throat 10/07/2016 None cough Quality dry 10/07/2016 None cough Quality constant 10/07/2016 None cough Onset and Resolution sudden in onset 10/07/2016 None cough Onset of Symptom 3 days ago 10/07/2016 None cough Frequency of Episodes daily 10/07/2016 None diarrhea Quality constant 10/07/2016 None diarrhea Quality loose 10/07/2016 None diarrhea Quality mucous 10/07/2016 None diarrhea Onset and Resolution ongoing 10/07/2016 None back pain Location diffusely 07/01/2016 None back pain Quality acute 07/01/2016 None back pain Onset and Resolution ongoing 07/01/2016 None back pain Onset of Symptom _ years ago 07/01/2016 cauda equina back pain Limitation on Activities moderately limits activities 07/01/2016 None back pain Frequency of Episodes increasing 07/01/2016 None back pain Triggers no known associated factors 07/01/2016 None back pain Alleviating Factors activity 07/01/2016 None back pain Radiating down both legs 07/01/2016 cauda equina pre-op/surgery consult Referred by Dr. Mackenzie 05/05/2016 None pre-op/surgery consult Pertinent Findings Denies fever 05/05/2016 None pre-op/surgery consult Procedure to be performed possible colostomy or illeostomy 05/05/2016 None pre-op/surgery consult Scheduled date of procedure 05/11/2016 05/05/2016 None pre-op/surgery consult Significant Medical Conditions cauda equina 05/05/2016 None shoulder pain Location on the right shoulder 02/23/2016 None shoulder pain Quality acute 02/23/2016 None shoulder pain Onset and Resolution traumatic 02/23/2016 None shoulder pain Limitation on Activities moderately limits activities 02/23/2016 None shoulder pain Pertinent Findings Denies fever 02/23/2016 None shoulder pain Exacerbating Factors exertion 02/23/2016 None shoulder pain Alleviating Factors rest 02/23/2016 None weakness Quality chronic 02/23/2016 None weakness Onset and Resolution ongoing 02/23/2016 None weakness Pertinent Findings Denies fever 02/23/2016 None shortness of breath Quality breathlessness 09/16/2015 None shortness of breath Onset and Resolution sudden in onset 09/16/2015 None insomnia Quality disrupted sleep 09/16/2015 he is on cpap insomnia Onset and Resolution ongoing 09/16/2015 None insomnia Onset of Symptom 1 years ago 09/16/2015 None hypertension Onset and Resolution ongoing 09/16/2015 None hypertension Onset of Symptom during adulthood 09/16/2015 None diarrhea Quality loose 07/24/2015 None diarrhea Quality watery 07/24/2015 None diarrhea Onset and Resolution sudden in onset 07/24/2015 None diarrhea Onset of Symptom 1 days ago 07/24/2015 None nausea Onset of Symptom 1 days ago 07/24/2015 None nausea Frequency of Episodes daily 07/24/2015 None rash Location-Major on the legs 03/20/2015 None rash Color red 03/20/2015 None rash Onset and Resolution sudden in onset 03/20/2015 None rash Onset of Symptom 3 weeks ago 03/20/2015 None shortness of breath Quality breathlessness 03/20/2015 None shortness of breath Onset and Resolution sudden in onset 03/20/2015 None shortness of breath Onset of Symptom 3 months ago 03/20/2015 None shortness of breath Alleviating Factors inhalers / nebulizer 03/20/2015 does not have script he was using samples and never came for more or a script sinus congestion Location on both sides 01/13/2015 None sinus congestion Quality fullness 01/13/2015 None sinus congestion Quality pressure 01/13/2015 None sinus congestion Onset and Resolution sudden in onset 01/13/2015 None sinus congestion Onset of Symptom 1 days ago 01/13/2015 None sinus congestion Frequency of Episodes daily 01/13/2015 None sinus congestion Pertinent Findings cough 01/13/2015 None sinus congestion Pertinent Findings fever 01/13/2015 None fever Initial treatment medication use 01/13/2015 None fever Onset of Symptom 3-4 days ago 01/13/2015 None hypertension Quality intermittent 12/05/2014 None hypertension Onset and Resolution ongoing 12/05/2014 None hypertension Severity not consistently severe symptoms, the symptoms fluctuate from no symptoms to anxiety and headaches 12/05/2014 None hypertension Frequency of Episodes unchanged 12/05/2014 None hypertension Significant Medical Conditions cardiac disease 12/05/2014 None hypertension Significant Medical Conditions cerebrovascular accident 12/05/2014 None hypertension Triggers no known associated factors 12/05/2014 None hypertension Alleviating Factors medication 12/05/2014 None hypertension Pertinent Findings Denies confusion 12/05/2014 None hypertension Pertinent Findings Denies dizziness 12/05/2014 None hypertension Pertinent Findings Denies dyspnea 12/05/2014 None hypertension Pertinent Findings edema 12/05/2014 None hyperlipidemia Onset of Symptom during adulthood 12/05/2014 None hyperlipidemia Frequency of Episodes unchanged 12/05/2014 None hyperlipidemia Onset and Resolution ongoing 12/05/2014 None fatigue Limitation on Activities moderately limits activities 12/05/2014 None fatigue Triggers activity 12/05/2014 None fatigue Alleviating Factors rest 12/05/2014 None fatigue Exacerbating Factors exertion 12/05/2014 None fatigue Pertinent Findings lightheadedness 12/05/2014 None fatigue Pertinent Findings nausea 12/05/2014 None fatigue Onset and Resolution gradual in onset 12/05/2014 None shortness of breath Onset and Resolution ongoing 12/05/2014 None shortness of breath Onset of Symptom 2 months ago 12/05/2014 None shortness of breath Limitation on Activities moderately limits activities 12/05/2014 None shortness of breath Frequency of Episodes increasing 12/05/2014 None shortness of breath Significant Family History cardiac disease 12/05/2014 None shortness of breath Significant Family History heart disease 12/05/2014 None shortness of breath Significant Medical Conditions cardiac disease 12/05/2014 None shortness of breath Alleviating Factors rest 12/05/2014 None shortness of breath Exacerbating Factors exertion 12/05/2014 None shortness of breath Pertinent Findings chest discomfort 12/05/2014 occasional ache in chest- 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 shortness of breath Pertinent Findings Denies cough 12/05/2014 None hypertension Onset and Resolution ongoing 10/03/2014 None hyperlipidemia Onset and Resolution ongoing 10/03/2014 None fatigue Onset and Resolution gradual in onset 10/03/2014 None fatigue Limitation on Activities moderately limits activities 10/03/2014 None fatigue Triggers activity 10/03/2014 None fatigue Alleviating Factors rest 10/03/2014 None fatigue Exacerbating Factors exertion 10/03/2014 None fatigue Pertinent Findings lightheadedness 10/03/2014 None fatigue Pertinent Findings nausea 10/03/2014 None shortness of breath Onset of Symptom 2 months ago 10/03/2014 None shortness of breath Pertinent Findings chest discomfort 10/03/2014 occasional ache in chest- 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 shortness of breath Pertinent Findings Denies cough 10/03/2014 None hypertension Quality intermittent 10/03/2014 None hypertension Severity not consistently severe symptoms, the symptoms fluctuate from no symptoms to anxiety and headaches 10/03/2014 None hypertension Frequency of Episodes unchanged 10/03/2014 None hypertension Significant Medical Conditions cardiac disease 10/03/2014 None hypertension Significant Medical Conditions cerebrovascular accident 10/03/2014 None hypertension Triggers no known associated factors 10/03/2014 None hypertension Alleviating Factors medication 10/03/2014 None hypertension Pertinent Findings Denies confusion 10/03/2014 None hypertension Pertinent Findings Denies dizziness 10/03/2014 None hypertension Pertinent Findings Denies dyspnea 10/03/2014 None hypertension Pertinent Findings edema 10/03/2014 None hyperlipidemia Onset of Symptom during adulthood 10/03/2014 None hyperlipidemia Frequency of Episodes unchanged 10/03/2014 None shortness of breath Onset and Resolution ongoing 10/03/2014 None shortness of breath Quality worsening 10/03/2014 None shortness of breath Limitation on Activities moderately limits activities 10/03/2014 None shortness of breath Frequency of Episodes increasing 10/03/2014 None shortness of breath Significant Family History cardiac disease 10/03/2014 None shortness of breath Significant Family History heart disease 10/03/2014 None shortness of breath Significant Medical Conditions cardiac disease 10/03/2014 None shortness of breath Alleviating Factors rest 10/03/2014 None shortness of breath Exacerbating Factors exertion 10/03/2014 None hypertension Onset and Resolution ongoing 09/15/2014 None hyperlipidemia Onset and Resolution ongoing 09/15/2014 None fatigue Onset and Resolution gradual in onset 09/15/2014 None fatigue Limitation on Activities moderately limits activities 09/15/2014 None fatigue Triggers activity 09/15/2014 None fatigue Alleviating Factors rest 09/15/2014 None fatigue Exacerbating Factors exertion 09/15/2014 None fatigue Pertinent Findings nausea 09/15/2014 None fatigue Pertinent Findings lightheadedness 09/15/2014 None urinary frequency Quality worsening 09/05/2014 None urinary frequency Onset of Symptom 1 weeks ago 09/05/2014 None urinary frequency Pertinent Findings fever 09/05/2014 None urinary frequency Pertinent Findings nausea 09/05/2014 None urinary frequency Onset and Resolution sudden in onset 09/05/2014 None urinary frequency Significant Medical Conditions urinary tract infections 09/05/2014 None urinary frequency Limitation on Activities does not limit activities 09/05/2014 None urinary frequency Frequency of Episodes increasing 09/05/2014 None urinary frequency Triggers no known associated factors 09/05/2014 None hypertension Quality intermittent 07/04/2014 None hypertension Onset and Resolution ongoing 07/04/2014 None _ Quality acute 07/04/2014 None _ Pertinent Findings Denies fever 07/04/2014 None joint complaint Location in the lumbar spine 07/04/2014 cauda equina-fell and broke back about 4 years ago joint complaint Location on both knees 07/04/2014 None joint complaint Quality chronic 07/04/2014 None joint complaint Frequency of Episodes daily 07/04/2014 None hypertension Severity not consistently severe symptoms, the symptoms fluctuate from no symptoms to anxiety and headaches 07/04/2014 None hypertension Frequency of Episodes unchanged 07/04/2014 None hypertension Significant Medical Conditions cardiac disease 07/04/2014 None hypertension Significant Medical Conditions cerebrovascular accident 07/04/2014 None hypertension Triggers no known associated factors 07/04/2014 None hypertension Alleviating Factors medication 07/04/2014 None hypertension Pertinent Findings Denies confusion 07/04/2014 None hypertension Pertinent Findings Denies dizziness 07/04/2014 None hypertension Pertinent Findings Denies dyspnea 07/04/2014 None hypertension Pertinent Findings edema 07/04/2014 None Advance Directives No Advance Directive data Encounters Encounter Performer Location Codes Date [id number]) [id number] EST. PATIENT, LEVEL III Diagnosis: Shortness of breath[ICD10: R06.02] Diagnosis: Interstitial pulmonary disease, unspecified[ICD10: J84.9] Kavya Aburto MD, [facility] CPT-4: 22103 07/06/2018 [id number] EST. PATIENT, LEVEL III Diagnosis: Acute on chronic combined systolic (congestive) and diastolic (congestive) heart failure[ICD10: I50.43] Diagnosis: Essential (primary) hypertension[ICD10: I10] Mary Aburto MD, [facility] CPT-4: 57547 05/25/2018 17339 EST. PATIENT, LEVEL III Diagnosis: Acute on chronic combined systolic (congestive) and diastolic (congestive) heart failure[ICD10: I50.43] Diagnosis: Pneumonia due to other specified bacteria[ICD10: J15.8] Mary Aburto MD, [facility] CPT-4: 69250 05/22/2018 88741 EST. PATIENT, LEVEL III Diagnosis: Other acute sinusitis[ICD10: J01.80] Diagnosis: Other allergic rhinitis[ICD10: J30.89] Diagnosis: Cough[ICD10: R05] Mary Aburto MD, [facility] CPT-4: 49310 04/20/2018 ([id number]) 18070 EST. PATIENT, LEVEL IV Diagnosis: Essential (primary) hypertension[ICD10: I10] Diagnosis: Other iron deficiency anemias[ICD10: D50.8] Diagnosis: Weakness[ICD10: R53.1] Darleen Aburto MD, [facility] CPT-4: 74848 11/14/2017 85530 EST. PATIENT, LEVEL IV Diagnosis: Other lesions of oral mucosa[ICD10: K13.79] Diagnosis: Candidal stomatitis[ICD10: B37.0] Diagnosis: Generalized anxiety disorder[ICD10: F41.1] Diagnosis: Major depressive disorder, single episode, moderate[ICD10: F32.1] Mary Aburto MD, [facility] CPT-4: 86803 08/15/2017 78134 EST. PATIENT, LEVEL III Diagnosis: Generalized anxiety disorder[ICD10: F41.1] Diagnosis: Cauda equina syndrome[ICD10: G83.4] Diagnosis: Major depressive disorder, single episode, moderate[ICD10: F32.1] Mary Aburto MD, [facility] CPT-4: 49594 06/29/2017 53926 EST. PATIENT, LEVEL IV Diagnosis: Dysuria[ICD10: R30.0] Diagnosis: Other malaise[ICD10: R53.81] Diagnosis: Cauda equina syndrome[ICD10: G83.4] Diagnosis: Weakness[ICD10: R53.1] Mary Aburto MD, [facility] CPT-4: 76392 03/30/2017 ([id number]) 80136 EST. PATIENT, LEVEL III Diagnosis: Cough[ICD10: R05] Diagnosis: Enterocolitis due to Clostridium difficile[ICD10: A04.7] Kavya Aburto MD, [facility] CPT-4: 68647 10/07/2016 ([id number]) 77574 EST. 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 PATIENT, LEVEL III Diagnosis: Cauda equina syndrome[ICD10: G83.4] Diagnosis: Irritable bowel syndrome with diarrhea[ICD10: K58.0] Mary Aburto MD, [facility] CPT-4: 38734 05/05/2016 56526 EST. PATIENT, LEVEL III Diagnosis: Pain in right shoulder[ICD10: M25.511] Diagnosis: Weakness[ICD10: R53.1] Diagnosis: Shortness of breath[ICD10: R06.02] Mary Aburto MD, [facility] CPT-4: 56856 02/23/2016 35228 EST. PATIENT, LEVEL III Diagnosis: Essential (primary) hypertension[ICD10: I10] Diagnosis: Other insomnia[ICD10: G47.09] Diagnosis: Irritable bowel syndrome with diarrhea[ICD10: K58.0] Diagnosis: Shortness of breath[ICD10: R06.02] Diagnosis: Weakness[ICD10: R53.1] Mary Aburto MD, [facility] CPT-4: 21924 09/16/2015 36353 EST. PATIENT, LEVEL III Diagnosis: Diarrhea, unspecified[ICD10: R19.7] Diagnosis: Nausea[ICD10: R11.0] Mary Aburto MD, [facility] CPT-4: 68722 07/24/2015 37174 EST. PATIENT, LEVEL IV Diagnosis: Other iron deficiency anemias[ICD10: D50.8] Diagnosis: Rash and other nonspecific skin eruption[ICD10: R21] Diagnosis: Cauda equina syndrome[ICD10: G83.4] Diagnosis: Essential (primary) hypertension[ICD10: I10] Diagnosis: Other pruritus[ICD10: L29.8] Diagnosis: Shortness of breath[ICD10: R06.02] Mary Aburto MD, [facility] CPT-4: 43142 03/20/2015 92393 EST. PATIENT, LEVEL IV Diagnosis: Urinary tract infection, site not specified[ICD10: N39.0] Diagnosis: Umbilical hernia without obstruction or gangrene[ICD10: K42.9] Diagnosis: Cauda equina syndrome[ICD10: G83.4] Mary Aburto MD, [facility] CPT- 4: 94036 01/13/2015 ([id number]) 98223 EST. PATIENT, LEVEL IV Diagnosis: Iron deficiency anemia, unspecified[ICD10: D50.9] Diagnosis: Essential (primary) hypertension[ICD10: I10] Diagnosis: Hematuria, unspecified[ICD10: R31.9] Kavya Aburto MD, [facility] CPT-4: 52403 12/05/2014 ([id number]) 46295 EST. PATIENT, LEVEL IV Diagnosis: ESSENTIAL HYPERTENSION[ICD9: 401.9] Diagnosis: COPD (chronic obstructive pulmonary disease)[ICD9: 496] Diagnosis: ANEMIA[ICD9: 285.9] Diagnosis: SHORTNESS OF BREATH[ICD9: 786.05] Kavya Aburto MD, [facility] CPT- 4: 62618 10/03/2014 ([id number]) 17736 EST. PATIENT, LEVEL IV Diagnosis: ESSENTIAL HYPERTENSION[ICD9: 401.9] Diagnosis: ANEMIA[ICD9: 285.9] Diagnosis: MALAISE AND FATIGUE[ICD9: 780.79] [facility] CPT- 4: 43325 09/15/2014 ([id number]) 54200 EST. PATIENT, LEVEL III Diagnosis: UTI[ICD9: 599.0] Diagnosis: Chronic back pain[ICD9: 724.5] [facility] CPT-4: 20098 09/05/2014 ([id number]) OFFICE VISIT, NEW - LEVEL 4 Diagnosis: ESSENTIAL HYPERTENSION[ICD9: 401.9] Diagnosis: THRUSH[ICD9: 112.0] Diagnosis: Hyperlipidemia[ICD9: 272.4] Diagnosis: COPD (chronic obstructive pulmonary disease)[ICD9: 496] Diagnosis: Cauda equina syndrome[ICD9: 344.60] Diagnosis: History of prostate cancer[ICD9: V10.46] [facility] CPT-4: 63714 07/04/2014 Plan of Care Planned Activity Notes Codes Status Date Visit Plan: Interstitial lung disease vs atypical pneumonia -patient's symptoms initially improved with antibiotics but shortness of breath persists -he has an appt with Dr Hutton on Monday for further evaluation - continue to use oxygen as needed -breathing treatments as directed-call with any questions or concerns-patient verbalized understanding of plan. 07/06/2018 Appointment: (30 min) Complex 07/06/2018 Patient Education: Patient Medication Summary Completed 07/06/2018 Appointment: Mary Alan WPtel: [address] [place], [place] [id number] (30 min) Complex 07/05/2018 Visit Plan: CHF - congestive heart failure - Pt has Chronic congestive heart failure - and is currently fairly well maintained on the current medications. Today there is no change in the treatment course. If sympto ms worsen, increase edema or more that 2-3 pound weight gain over a week without improvement in the symptoms with a decrease in the sodium of the diet, then the pt is to have the office alerted. Hypertension - well controlled - continue with current medications, continue with no added salt diet. Pt has been encouraged to exercise daily. The pt has been advised to call the office if there are any u te concerns about change in blood pressure readings at home. 05/25/2018 Appointment: Mary Alan WPtel: [phone] [id number] (30 min) Complex 05/25/2018 Patient Education: Patient Medication Summary Completed 05/25/2018 Patient Education: Hypertension Completed 05/25/2018 Patient Education: Patient Medication Summary Completed 05/24/2018 Care Plan: Iron add to blood from 05/22 Pending 05/24/2018 Visit Plan: Dr. Abutro in to evaluate pt CHF - congestive heart failure - Pt has Chronic congestive heart failure - and is currently fairly well maintained on the current medications. Today there is no change in the treatment course. If symptoms worsen, increase edema or more that 2-3 pound weight gain over a week without improvement in the symptoms with a decrease in the sodium of the diet, then the pt is to have the office alerted. Pneumonia - Pt has been diagnosed with pneumonia by physical exam. A chest xray has been ordered as have antibiotics. The pt is aware of the diagnosis and the need for acute treatment of this illness. His SPO2 at rest on room air got down to 79% and was 98% on 2L O2 per [place], will order continuous home O2. 05/22/2018 Visit Plan: Dr. Aburto in to evaluate pt CHF - congestive heart failure - Pt has Chronic congestive heart failure - and is currently fairly well maintained on the current medications. Today there is no change in the treatment course. If symptoms worsen, increase edema or more that 2-3 pound weight gain over a week without improvement in the symptoms with a decrease in the sodium of the diet, then the pt is to have the office alerted. Pneumonia - Pt has been diagnosed with pneumonia by physical exam. A chest xray has been ordered as have antibiotics. The pt is aware of the diagnosis and the need for acute treatment of this illness. Pt is non-ambulatory - His SPO2 at rest on room air got down to 79% and was 98% on 2L O2 per [place], will order continuous home O2. 05/22/2018 Appointment: Mary Alan WPtel: [address] [facility] [address] (30 min) Complex 05/22/2018 Patient Education: Patient Medication Summary Completed 05/22/2018 Visit Plan: Sinusitis - Pt has acute infection - pain in face, maxillary region, Pt informed to use decongestant, RX given to patient, sinus rinses also recommended. Call if symptoms do not show improvement. Allergies - chronic - recommended pt to use allergy medication as prescribed. Pt has been counseled as to the appropriate use of the medication. Pt to call if allergy symptoms are not controlled with the medication. If using nasal spray, instructions as follows: Nasal spray- use twice daily, one spray per nostril twice daily, after 30 minutes, rinse out nose with saline spray.. Use opposite hand per nostril to spray in the nasal steroid allergy spray. 04/20/2018 Appointment: Mary Alan WPtel: [facility] [address] (15 min) Moderate 04/20/2018 Patient Education: Patient Medication Summary Completed 04/20/2018 Appointment: Lab Draw 12/14/2017 Patient Education: Patient Medication Summary Completed 12/14/2017 Appointment: Darleen Aburto WPtel: [address] [place], [place] [id number] (15 min) Moderate 11/28/2017 Visit Plan: Hypertension - well controlled - continue with current medications, continue with no added salt diet. Pt has been encouraged to exercise daily. The pt has been advised to call the office if there are any acute concerns about change in blood pressure readings at home. HX of iron deficiency anemia - recommended labs today - check CBC and iron panel. Dysuria - labs at Urgent care - waiting on culture report. 11/14/2017 Appointment: Darleen Aburto WPtel: [facility] (15 min) Moderate 11/14/2017 Patient Education: Patient Medication Summary Completed 11/14/2017 Patient Education: Hypertension Completed 11/14/2017 Visit Plan: Thrush/oral pain- swab obtained - Pt advised to increase fluids, vitamin C. Discussed natural and expected course of this diagnosis and need to alert me if symptoms do not follow expected course, or if any worse. RX sent to patient's pharmacy. Anxiety - the patient has uncontrolled anxiety and will benefit from an SSRI on a daily basis to attempt control of the symptoms of anxiety (tachycardia, overwhelming sensations, stress, insomnia, etc). Pt is aware of the risks and benefits of treatment with the above medications. Depression - uncontrolled - Pt has been counseled about the diagnosis of depression, the potential causes, and risks associated with the diagnosis. The pt denies suicidal ideation, or plans. The patient has been counseled about treatment options, and understands the risks associated with treatment of depression, as well as the risks associated with NOT treating the depression. I believe the pt will benefit from medical intervention and an antidepressant has been appropriately prescribed for this patient. 08/15/2017 Visit Plan: Thrush/oral pain- swab obtained - Pt advised to increase fluids, vitamin C. Discussed natural and expected course of this diagnosis and need to alert me if symptoms do not follow expected course, or if any worse. RX sent to patient's pharmacy. Anxiety - the patient has uncontrolled anxiety and will benefit from an SSRI on a daily basis to attempt control of the symptoms of anxiety (tachycardia, overwhelming sensations, stress, insomnia, etc). Pt is aware of the risks and benefits of treatment with the above medications. Depression - uncontrolled - Pt has been counseled about the diagnosis of depression, the potential causes, and risks associated with the diagnosis. The pt denies suicidal ideation, or plans. The patient has been counseled about treatment options, and understands the risks associated with treatment of depression, as well as the risks associated with NOT treating the depression. I believe the pt will benefit from medical intervention and an antidepressant has been appropriately prescribed for this patient. 08/15/2017 Appointment: Mary Alan WPtel: [facility] (30 min) Complex 08/15/2017 Patient Education: Patient Medication Summary Completed 08/15/2017 Appointment: Mary Alan WPtel: [address] [facility] (15 min) Moderate 08/08/2017 Appointment: Mary Alan WPtel: [facility] (15 min) Moderate 08/03/2017 Visit Plan: Cauda Equina - stable - continue to monitor, no changes at this time. Anxiety - the patient has uncontrolled anxiety and will benefit from an SSRI on a daily basis to attempt control of the symptoms of anxiety (tachycardia, overwhelming sensations, stress, insomnia, etc). Pt is aware of the risks and benefits of treatment with the above medications. Depression - uncontrolled - Pt has been counseled about the diagnosis of depression, the potential causes, and risks associated with the diagnosis. The pt denies suicidal ideation, or plans. The patient has been counseled about treatment options, and understands the risks associated with treatment of depression, as well as the risks associated with NOT treating the depression. I believe the pt will benefit from medical intervention and an antidepressant has been appropriately prescribed for this patient. Arthritis- occasionally uncontrolled symptoms- recommend pt to take antiinflammatory as directed for pain control. Use tylenol for break through pain symptoms. 06/29/2017 Appointment: Mary Alan WPtel: [address] [facility] (15 min) Moderate 06/29/2017 Patient Education: Patient Medication Summary Completed 06/29/2017 Appointment: Lab Draw 05/15/2017 Patient Education: Patient Medication Summary Completed 05/15/2017 Visit Plan: Cauda Equina, weakness, gait instability - will order home health to assist with medication management, pt monitoring, and in home physical therapy - pt is to notify clinic with any changes, questions, or concerns. UTI, malaise, fatigue - will check labs and treat as indicated - pt with positive urinalysis - culture sent if appropriate. Antibiotic electronically prescribed to pt's pharmacy of choice. Pt to call if symptoms do not improve. 03/30/2017 Appointment: Mary Alan WPtel: [address] [facility] (30 min) Complex 03/30/2017 Patient Education: Patient Medication Summary Completed 03/30/2017 Visit Plan: Cough-suspect virus-patient to monitor over the weekend-call Monday if symptoms persist and we will do a chest xray and sputum culture Cdiff-treat with flagyl as directed-call if symptoms do not resolve 10/07/2016 Appointment: Kavya Subramanian WPtel: [phone] [phone] [place] (30 min) Complex 10/07/2016 Patient Education: Patient Medication Summary Completed 10/07/2016 Patient Education: Obesity Completed 10/07/2016 Visit Plan: Cauda equina-chronic back pain-generalized weakness- bilateral shoulder pain/weakness-OA knees-patient to contact [facility] for mobility paperwork-will ask PT to do a mobility exam through [facility]. Patient is non ambulatory due to cauda equina which resulted in severe neurological damage. He also has bilateral weakness due to severe OA knees. He has significant fall risk due to neuropathy bilateral feet and weakness. He also has limited upper extremity strength and ROM due to OA shoulders and history of rotator cuff damage. He is able to operate a power chair but cannot operate a manual wheelchair due to upper extremity weakness and ROM deficits. See PT evaluation for further assessment details. Drug induced constipation-rx for movantik. 07/01/2016 Visit Plan: Cauda equina-chronic back pain-generalized weakness- right shoulder pain/weakness-patient to contact [facility] for mobility paperwork-will ask PT to do a mobility exam through [facility] Drug induced constipation-rx for movantik. 07/01/2016 Appointment: Kavya Subramanian WPtel: [address] [facility] [address] (30 min) Complex 07/01/2016 Patient Education: Patient Medication Summary Completed 07/01/2016 Patient Education: Patient Medication Summary Completed 06/03/2016 Visit Plan: Cauda Equina Syndrome/diarrhea - Pt is to have abdominal surgery next week - Dr. Aburto in to assess pt - Pt cleared for surgery - pt is to notify clinic with any questions or concerns. Pt is to follow up after his surgery. 05/05/2016 Appointment: Mary Alan WPtel: [address] [facility] [address] Surgical Clearance 05/05/2016 Patient Education: Patient Medication Summary Completed 05/05/2016 Visit Plan: Right shoulder pain - pt states that he fell getting up out of the chair and landed on his right shoulder, states that he is worried it is a torn rotator cuff - will order imaging - The pt is to use prn antiinflammatories to manage acute pain. The patient is to call the office if the pain is worsening or does not improve. Weakness/shortness of breath - pt states that it is difficult for him to get around and that he would like to get a power chair - will have pt contact Ramez godoy. 02/23/2016 Appointment: Mary Alan WPtel: [address] [facility] [address] [place] (30 min) Complex 02/23/2016 Patient Education: Patient Medication Summary Completed 02/23/2016 Appointment: Mary Alan WPtel: [address] [facility] [address] [place] (30 min) Complex 02/19/2016 Appointment: Dar[facility]Ptel[facility] [address] [facility] [address] [place] (15 min) Moderate 10/14/2015 Appointment: Lab Draw 09/18/2015 Patient Education: Patient Medication Summary Completed 09/18/2015 Visit Plan: Hypertension - The patient has been counseled to cut back on salt in diet for a no added salt diet, low fat diet, start an exercise program with low weight bearing exercises and higher aerobic activity for heart health. The patient is to check blood pressure readings as an outpatient and either fax, call, or email the readings to the office next week for practitioner to review. The pt is to call for acute concerns. Check your blood pressures 3 times a day and all me Monday - if they are still high we will have you increase your clonidine to 1 in the morning and 1 in the evening. Insomnia - Pt has been advised to increase the light in the house during the day, and start dimming the lights during the evening hours. Pt has been advised to cut out caffeine after 5pm. Daytime napping worsens night time insomnia. Irritable Bowel syndrome - Discussed need for adequate daily fiber intake. Continue with a healthy diet, and I have recommended addition of probiotic to the diet when having loose bowel movements. Keep appointment with Glass Designer Make an appointment with grain ii farmworker - to follow up on shortness of breath. Weakness - pt is to contact Ramez Godoy in [facility] and Call clinic when he is ready to fill out paperwork. 09/16/2015 Patient Education: Patient Medication Summary Completed 09/16/2015 Patient Education: Hypertension Completed 09/16/2015 Visit Plan: Gastroenteritis - Pt is to get outpatient IV Fluids, if symptoms worsen pt is to go to the ED over the weekend - discussed need to stay away from milk products while acutely ill with diarrhea and nausea and emesis as it may worsen the symptoms. Liquids initially until the nausea improves, then recommend to advance to bland diet for 1 day, then advance as tolerated. Call if symptoms not improved. 07/24/2015 Appointment: Kavya Subramanian WPtel: [address] [facility] [address] (30 min) Complex 07/24/2015 Patient Education: Patient Medication Summary Completed 07/24/2015 Patient Education: Obesity Completed 07/24/2015 Visit Plan: Rash - pt states that he has had problems with dry skin and eczema off and on for some time, states that he had a CT scan with contrast about 3 weeks ago and has noticed a rash with lots of itching on b ilateral lower extremities ever since then - pt has faint macular-papular rash on bilateral lower legs - will send RX- pt is to notify clinic if symptoms do not improve or if they worsen, or with other concerns. Iron deficiency anemia- check labs-continue oral iron Hypertension - well controlled - continue with current medications, continue with no added salt diet. Pt has been encouraged to exercise daily. The pt has been advised to call the office if there are any acute concerns about change in blood pressure readings at home. Shortness of breath - pt states that he had a sample inhaler given previously, which did help - will give another anoro sample 03/20/2015 Appointment: (30 min) Complex 03/20/2015 Patient Education: Patient Medication Summary Completed 03/20/2015 Patient Education: Hypertension Completed 03/20/2015 Appointment: (30 min) Complex 02/03/2015 Visit Plan: Pt complains of abdominal pain, states that he was tender to light touch yesterday. Pt states that he noticed a new hernia after straining to have a bowel movement. Reducible umbilical hernia present, p eriumbilical area tender to palpation. Pt has a suprapubic catheter, has had normal output, cloudy urine. states that he was confused last night, but better today. Will send for an abdominal ultrasound for new umbilical hernia and periumbilical pain. Will check UA, CBC, CMP. 01/13/2015 Visit Plan: Pt complains of abdominal pain, states that he was tender to light touch yesterday. Pt states that he noticed a new hernia after straining to have a bowel movement. Reducible umbilical hernia present, p eriumbilical area tender to palpation. Pt has a suprapubic catheter, has had normal output, cloudy urine. states that he was confused last night, but better today. Will send for an abdominal ultrasound for new umbilical hernia and periumbilical pain. Will check UA, CBC, CMP. 01/13/2015 Appointment: (15 min) Moderate 01/13/2015 Patient Education: Patient Medication Summary Completed 01/13/2015 Appointment: Injection 12/31/2014 Patient Education: Patient Medication Summary Completed 12/31/2014 Patient Education: Patient Medication Summary Completed 12/10/2014 Visit Plan: Iron deficiency anemia-check labs-continue oral iron Hypertension - well controlled - continue with current medications, continue with no added salt diet. Pt has been encouraged to exercise daily. The pt has been advised to call the office if there are any acute concerns about change in blood pressure readings at home. CAD-recent stent-doing well Hematuria-neurogenic bladder due to cauda equina-check UA with C&S if indicated 12/05/2014 Appointment: (30 min) Complex 12/05/2014 Patient Education: Patient Medication Summary Completed 12/05/2014 Patient Education: Hypertension Completed 12/05/2014 Appointment: Lab Draw 11/24/2014 Patient Education: Patient Medication Summary Completed 11/24/2014 Visit Plan: Hypertension - well controlled - continue with current medications, continue with no added salt diet. Pt has been encouraged to exercise daily. The pt has been advised to call the office if there are any acute concerns about change in blood pressure readings at home. COPD - chronic problem for this patient. We have reviewed chronic treatment strategy, symptom control, and plans for acute exacerbations. No changes today to the current treatment plan as the patient is stable, monitor for acute changes. Anemia-check stools for blood 10/03/2014 Appointment: Follow up 10/03/2014 Patient Education: Patient Medication Summary Completed 10/03/2014 Patient Education: Hypertension Completed 10/03/2014 Visit Plan: Hypertension - well controlled - continue with current medications, continue with no added salt diet. Pt has been encouraged to exercise daily. The pt has been advised to call the office if there are any acute concerns about change in blood pressure readings at home. Anemia - check labs Fatigue - due to anemia and hypertension. 09/15/2014 Appointment: Darleen Aburto [facility]Ptel: [address] [facility] [address] (15 min) Moderate 09/15/2014 Patient Education: Patient Medication Summary Completed 09/15/2014 Patient Education: Hypertension Completed 09/15/2014 Visit Plan: Urinary Tract Infection-discussed natural and expected course of this diagnosis and to alert me if symptoms do not follow expected course, or if any worse. UA positive for infection today in the office-plan to send for culture and will call patient with results. RX sent to patient's pharmacy. Avoid tub baths, restrictive underwear, etc. Recommend patient start on probiotic while taking the antibiotic to prevent diarrhea. Patient verbalized understanding of plan. Rocephin injection today in the office-instructed him go to go ER over the weekend if symptoms worsen-continue cipro as directed. Chronic back pain-history of cauda equina-increased incontinence of bowels-recommend follow up with foreclosure specialist-will discuss repeat MRI with Dr Aburto-keep follow up appointment with Dr Aburto in 10 days 09/05/2014 Appointment: (15 min) Moderate 09/05/2014 Patient Education: Patient Medication Summary Completed 09/05/2014 Patient Education: Hypertension Completed 09/05/2014 Appointment: Lab Draw 09/04/2014 Patient Education: Patient Medication Summary Completed 09/04/2014 Visit Plan: Hypertension - well controlled - continue with current medications, continue with no added salt diet. Pt has been encouraged to exercise daily. The pt has been advised to call the office if there are any acute concerns about change in blood pressure readings at home. Thrush-RX for nystatin sent to patient's pharmacy-call if symptoms do not resolve COPD - chronic problem for this patient. We have reviewed chronic treatment strategy, symptom control, and plans for acute exacerbations. No changes today to the current treatment plan as the patient is stable, monitor for acute changes. Hyperlipidemia - pt has been counseled about appropriate diet, exercise, and need for low fat food choices. I have discussed the need for the patient to take medications as prescribed. If the patient has negative side effects from the medication, they are to CALL the office and not abruptly discontinue the medication without discussion with a practitioner in the office. We will check labs in 3-6 months for follow up on the patient's chronic medical problem and to assure normal liver response to medications. 07/04/2014 Appointment: (S) New Patient 07/04/2014 Patient Education: Patient Medication Summary Completed 07/04/2014 Patient Education: Hypertension Completed 07/04/2014 Instructions Comment will start you on augmentin - check a urine sample 48 hours after it is finished steroid shot today and steroid pill (start tomorrow) let us know what your grain ii farmworker says at your appointment chest x-ray if your symptoms do not improve. . Sinusitis - Pt has acute infection - pain in face, maxillary region, Pt informed to use decongestant, RX given to patient, sinus rinses also recommended. Call if symptoms do not show improvement. Allergies - chronic - recommended pt to use allergy medication as prescribed. Pt has been counseled as to the appropriate use of the medication. Pt to call if allergy symptoms are not controlled with the medication. If using nasal spray, instructions as follows: Nasal spray- use twice daily, one spray per nostril twice daily, after 30 minutes, rinse out nose with saline spray.. Use opposite hand per nostril to spray in the nasal steroid allergy spray. . Thrush/oral pain- swab obtained - Pt advised to increase fluids, vitamin C. Discussed natural and expected course of this diagnosis and need to alert me if symptoms do not follow expected course, or if any worse. RX sent to patient's pharmacy. Anxiety - the patient has uncontrolled anxiety and will benefit from an SSRI on a daily basis to attempt control of the symptoms of anxiety (tachycardia, overwhelming sensations, stress, insomnia, etc). Pt is aware of the risks and benefits of treatment with the above medications. Depression - uncontrolled - Pt has been counseled about the diagnosis of depression, the potential causes, and risks associated with the diagnosis. The pt denies suicidal ideation, or plans. The patient has been counseled about treatment options, and understands the risks associated with treatment of depression, as well as the risks associated with NOT treating the depression. I believe the pt will benefit from medical intervention and an antidepressant has been appropriately prescribed for this patient. . Gastroenteritis - Pt is to get outpatient IV Fluids, if symptoms worsen pt is to go to the ED over the weekend - discussed need to stay away from milk products while acutely ill with diarrhea and nausea and emesis as it may worsen the symptoms. Liquids initially until the nausea improves, then recommend to advance to bland diet for 1 day, then advance as tolerated. Call if symptoms not improved. . Hypertension - well controlled - continue with current medications, continue with no added salt diet. Pt has been encouraged to exercise daily. The pt has been advised to call the office if there are any acute concerns about change in blood pressure readings at home. Thrush-RX for nystatin sent to patient's pharmacy-call if symptoms do not resolve COPD - chronic problem for this patient. We have reviewed chronic treatment strategy, symptom control, and plans for acute exacerbations. No changes today to the current treatment plan as the patient is stable, monitor for acute changes. Hyperlipidemia - pt has been counseled about appropriate diet, exercise, and need for low fat food choices. I have discussed the need for the patient to take medications as prescribed. If the patient has negative side effects from the medication, they are to CALL the office and not abruptly discontinue the medication without discussion with a practitioner in the office. We will check labs in 3-6 months for follow up on the patient's chronic medical problem and to assure normal liver response to medications. . Rash - pt states that he has had problems with dry skin and eczema off and on for some time, states that he had a CT scan with contrast about 3 weeks ago and has noticed a rash with lots of itching on bilateral lower extremities ever since then - pt has faint macular-papular rash on bilateral lower legs - will send RX- pt is to notify clinic if symptoms do not improve or if they worsen, or with other concerns. Iron deficiency anemia-check labs-continue oral iron Hypertension - well controlled - continue with current medications, continue with no added salt diet. Pt has been encouraged to exercise daily. The pt has been advised to call the office if there are any acute concerns about change in blood pressure readings at home. Shortness of breath - pt states that he had a sample inhaler given previously, which did help - will give another anoro sample . Urinary Tract Infection-discussed natural and expected course of this diagnosis and to alert me if symptoms do not follow expected course, or if any worse. UA positive for infection today in the office-plan to send for culture and will call patient with results. RX sent to patient's pharmacy. Avoid tub baths, restrictive underwear, etc. Recommend patient start on probiotic while taking the antibiotic to prevent diarrhea. Patient verbalized understanding of plan. Rocephin injection today in the office-instructed him go to go ER over the weekend if symptoms worsen-continue cipro as directed. Chronic back pain-history of cauda equina-increased incontinence of bowels- recommend follow up with foreclosure specialist-will discuss repeat MRI with Dr Aburto-keep follow up appointment with Dr Aburto in 10 days will give you a rocephin shot today will check labs and a chest x-ray today will start you on a z-pack and cefdinir - 2 different antibiotics to treat for pneumonia will send an inhaler for you to start and breathing treatments - 4 times a day x 2 days, then 3 times a day x 2 days, then 2 times a day x 2 days, then as needed - I will give you a script for the nebulizer machine that you can get from you pharmacy. will send you home on oxygen come in for a follow up appointment on Monday increase lasix to 60mg daily x 4 days and we will see if you need more on Monday at your follow up appointment - take 2 potassium pills a day while you are on the increased lasix. Go to the ER if your symptoms get worse or with any acute concerns. . Dr. Aburto in to evaluate pt CHF - congestive heart failure - Pt has Chronic congestive heart failure - and is currently fairly well maintained on the current medications. Today there is no change in the treatment course. If symptoms worsen, increase edema or more that 2-3 pound weight gain over a week without improvement in the symptoms with a decrease in the sodium of the diet, then the pt is to have the office alerted. Pneumonia - Pt has been diagnosed with pneumonia by physical exam. A chest xray has been ordered as have antibiotics. The pt is aware of the diagnosis and the need for acute treatment of this illness. His SPO2 at rest on room air got down to 79% and was 98% on 2L O2 per [place], will order continuous home O2. . Dr. Aburto in to evaluate pt CHF - congestive heart failure - Pt has Chronic congestive heart failure - and is currently fairly well maintained on the current medications. Today there is no change in the treatment course. If symptoms worsen, increase edema or more that 2-3 pound weight gain over a week without improvement in the symptoms with a decrease in the sodium of the diet, then the pt is to have the office alerted. Pneumonia - Pt has been diagnosed with pneumonia by physical exam. A chest xray has been ordered as have antibiotics. The pt is aware of the diagnosis and the need for acute treatment of this illness. Pt is non-ambulatory - His SPO2 at rest on room air got down to 79% and was 98% on 2L O2 per [place], will order continuous home O2. . Interstitial lung disease vs atypical pneumonia -patient's symptoms initially improved with antibiotics but shortness of breath persists - he has an appt with Dr Hutton on Monday for further evaluation -continue to use oxygen as needed -breathing treatments as directed-call with any questions or concerns-patient verbalized understanding of plan. Nikolai Montalvo to do PT evaluation for motorized wheelchair through [facility] . Cauda equina-chronic back pain-generalized weakness-bilateral shoulder pain/weakness- OA knees-patient to contact [facility] for mobility paperwork-will ask PT to do a mobility exam through [employer] [facility]. Patient is non ambulatory due to cauda equina which resulted in severe neurological damage. He also has bilateral weakness due to severe OA knees. He has significant fall risk due to neuropathy bilateral feet and weakness. He also has limited upper extremity strength and ROM due to OA shoulders and history of rotator cuff damage. He is able to operate a power chair but cannot operate a manual wheelchair due to upper extremity weakness and ROM deficits. See PT evaluation for further assessment details. Drug induced constipation-rx for movantik. Movantik Ladson to do PT evaluation for motorized wheelchair through [facility] [place] . Cauda equina-chronic back pain-generalized weakness-right shoulder pain/weakness- patient to contact [facility] for mobility paperwork-will ask PT to do a mobility exam through [facility] [facility] Drug induced constipation-rx for movantik. . Hypertension - well controlled - continue with current medications, continue with no added salt diet. Pt has been encouraged to exercise daily. The pt has been advised to call the office if there are any acute concerns about change in blood pressure readings at home. HX of iron deficiency anemia - recommended labs today - check CBC and iron panel. Dysuria - labs at Urgent care - waiting on culture report. . Cauda Equina, weakness, gait instability - will order home health to assist with medication management, pt monitoring, and in home physical therapy - pt is to notify clinic with any changes, questions, or concerns. UTI, malaise, fatigue - will check labs and treat as indicated - pt with positive urinalysis - culture sent if appropriate. Antibiotic electronically prescribed to pt's pharmacy of choice. Pt to call if symptoms do not improve. . Right shoulder pain - pt states that he fell getting up out of the chair and landed on his right shoulder, states that he is worried it is a torn rotator cuff - will order imaging - The pt is to use prn antiinflammatories to manage acute pain. The patient is to call the office if the pain is worsening or does not improve. Weakness/shortness of breath - pt states that it is difficult for him to get around and that he would like to get a power chair - will have pt contact [facility]. . Pt complains of abdominal pain, states that he was tender to light touch yesterday. Pt states that he noticed a new hernia after straining to have a bowel movement. Reducible umbilical hernia present, periumbilical area tender to palpation. Pt has a suprapubic catheter, has had normal output, cloudy urine. states that he was confused last night, but better today. Will send for an abdominal ultrasound for new umbilical hernia and periumbilical pain. Will check UA, CBC, CMP. . Pt complains of abdominal pain, states that he was tender to light touch yesterday. Pt states that he noticed a new hernia after straining to have a bowel movement. Reducible umbilical hernia present, periumbilical area tender to palpation. Pt has a suprapubic catheter, has had normal output, cloudy urine. states that he was confused last night, but better today. Will send for an abdominal ultrasound for new umbilical hernia and periumbilical pain. Will check UA, CBC, CMP. RECOMMEND CHEST XRAY AND SPUTUM CUTURE IF SYMPTOMS PERSIST . Cough-suspect virus-patient to monitor over the weekend-call Monday if symptoms persist and we will do a chest xray and sputum culture Cdiff-treat with flagyl as directed-call if symptoms do not resolve . Thrush/oral pain- swab obtained - Pt advised to increase fluids, vitamin C. Discussed natural and expected course of this diagnosis and need to alert me if symptoms do not follow expected course, or if any worse. RX sent to patient's pharmacy. Anxiety - the patient has uncontrolled anxiety and will benefit from an SSRI on a daily basis to attempt control of the symptoms of anxiety (tachycardia, overwhelming sensations, stress, insomnia, etc). Pt is aware of the risks and benefits of treatment with the above medications. Depression - uncontrolled - Pt has been counseled about the diagnosis of depression, the potential causes, and risks associated with the diagnosis. The pt denies suicidal ideation, or plans. The patient has been counseled about treatment options, and understands the risks associated with treatment of depression, as well as the risks associated with NOT treating the depression. I believe the pt will benefit from medical intervention and an antidepressant has been appropriately prescribed for this patient. 1. check your blood pressures 3 times a day and all me Monday - if they are still high we will have you increase your clonidine to 1 in the morning and 1 in the evening. 2. sleeping - we will do xanax 0.25mg take half pill at bedtime if needed. we will check settings of your cpap 3. keep appointment with Dr. Peng 4. 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 5. Call us when you here about the mobility paperwork and we will fill out the paperwork. [facility] in [facility] . Hypertension - The patient has been counseled to cut back on salt in diet for a no added salt diet, low fat diet, start an exercise program with low weight bearing exercises and higher aerobic activity for heart health. The patient is to check blood pressure readings as an outpatient and either fax, call, or email the readings to the office next week for practitioner to review. The pt is to call for acute concerns. Check your blood pressures 3 times a day and all me Monday - if they are still high we will have you increase your clonidine to 1 in the morning and 1 in the evening. Insomnia - Pt has been advised to increase the light in the house during the day, and start dimming the lights during the evening hours. Pt has been advised to cut out caffeine after 5pm. Daytime napping worsens night time insomnia. Irritable Bowel syndrome - Discussed need for adequate daily fiber intake. Continue with a healthy diet, and I have recommended addition of probiotic to the diet when having loose bowel movements. Keep appointment with [employer] Make an appointment with [employer] farmworker - to follow up on shortness of breath. Weakness - pt is to contact [facility] in [facility] and Call clinic when he is ready to fill out paperwork. . Iron deficiency anemia-check labs-continue oral iron Hypertension - well controlled - continue with current medications, continue with no added salt diet. Pt has been encouraged to exercise daily. The pt has been advised to call the office if there are any acute concerns about change in blood pressure readings at home. 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 Cauda Equina Syndrome/diarrhea - Pt is to have abdominal surgery next week - Dr. Aburto in to assess pt - Pt cleared for surgery - pt is to notify clinic with any questions or concerns. Pt is to follow up after his surgery. breathing treatments - 3 times a day x 2 days, then 2 times a day x 2 days then stop. CHF - congestive heart failure - Pt has Chronic congestive heart failure - and is currently fairly well maintained on the current medications. Today there is no change in the treatment course. If symptoms worsen, increase edema or more that 2-3 pound weight gain over a week without improvement in the symptoms with a decrease in the sodium of the diet, then the pt is to have the office alerted. Hypertension - well controlled - continue with current medications, continue with no added salt diet. Pt has been encouraged to exercise daily. The pt has been advised to call the office if there are any acute concerns about change in blood pressure readings at home. Decrease effexor to 2 pills daily x 3 days, then 1 pill daily x 1 week and start Cymbalta daily x 1 week, then stop Effexor and increase Cymbalta to 2 pills daily. Will consult Tiffany Bullard [facility] PT. Cauda Equina - stable - continue to monitor, no changes at this time. Anxiety - the patient has uncontrolled anxiety and will benefit from an SSRI on a daily basis to attempt control of the symptoms of anxiety (tachycardia, overwhelming sensations, stress, insomnia, etc). Pt is aware of the risks and benefits of treatment with the above medications. Depression - uncontrolled - Pt has been counseled about the diagnosis of depression, the potential causes, and risks associated with the diagnosis. The pt denies suicidal ideation, or plans. The patient has been counseled about treatment options, and understands the risks associated with treatment of depression, as well as the risks associated with NOT treating the depression. I believe the pt will benefit from medical intervention and an antidepressant has been appropriately prescribed for this patient. Arthritis- occasionally uncontrolled symptoms- recommend pt to take antiinflammatory as directed for pain control. Use tylenol for break through pain symptoms. . Hypertension - well controlled - continue with current medications, continue with no added salt diet. Pt has been encouraged to exercise daily. The pt has been advised to call the office if there are any acute concerns about change in blood pressure readings at home. Anemia - check labs Fatigue - due to anemia and hypertension. CHECK STOOL STUDIES FOR BLOOD . Hypertension - well controlled - continue with current medications, continue with no added salt diet. Pt has been encouraged to exercise daily. The pt has been advised to call the office if there are any acute concerns about change in blood pressure readings at home. COPD - chronic problem for this patient. We have reviewed chronic treatment strategy, symptom control, and plans for acute exacerbations. No changes today to the current treatment plan as the patient is stable, monitor for acute changes. Anemia-check stools for blood
--- OUTSIDE RECORDS SUMMARY | 2018-07-19 08:29 | XMS REPORT | CCD ---
Author Author Kavya Subramanian Organization [facility] Address [address] [place] [address] Phone Care Team Providers Care Petroleum Analyst Name Role Phone PP Unavailable CCM Unavailable Summary Purpose Interface Exchange Insurance Providers Payer name Policy type / Coverage type Covered constitution party ID Effective Begin Date Effective End Date WPS Medicare Part B Commercial Insurance [id number] Unknown Unknown HEALTHCHOICE Commercial Insurance [id number] Unknown Unknown Family history Father Diagnosis Age At Onset Coronary Artery Disease Unknown Mother Diagnosis Age At Onset Arthritis Unknown Sister Diagnosis Age At Onset Alzheimer's Disease Unknown Social History Social History Element Codes Description Effective Dates Marital status Unknown 07/04/2014 Number of children Unknown 2 07/04/2014 Living arrangements Unknown House 07/04/[address]: 3624455 Quit over 10 years ago 07/04/2014 Alcohol history Unknown occasionally drinks alcohol 07/04/2014 Frequency of drinks SNOMED CT: 108040994 Drinks rarely 07/04/2014 Allergies, Adverse Reactions, Alerts Substance Reaction Codes Entered Date Inactivated Date Status * NO KNOWN FOOD ALLERGIES Unknown 07/04/2014 No Inactive Date Active Iodine rash, pruritis, RxNorm: 5933 03/04/2015 No Inactive Date Active tramadol pruritis RxNorm: 62899 07/04/2014 No Inactive Date Active Past Medical [...] Instructions Cymbalta 30 mg capsule,delayed release RxNorm: 737158 2 Capsule(s) PO daily 07/11/2018 07/05/2019 Active Cymbalta 30 mg capsule,delayed release RxNorm: 781753 2 Capsule(s) PO daily 07/03/2018 07/10/2018 Inactive oxycodone 5 mg tablet RxNorm: 4772229 4 Tablet(s) PO daily 06/27/2018 09/09/2018 Active doxycycline hyclate 100 mg tablet RxNorm: 0879858 1 Tablet(s) PO BID 06/01/2018 06/10/2018 Inactive doxycycline hyclate 100 mg tablet RxNorm: 4056530 1 Tablet(s) PO BID 06/01/2018 05/31/2018 Inactive Zithromax Z-Win 250 mg tablet RxNorm: 624655 Tablet(s) PO UD 05/22/2018 No Stop Date Active albuterol sulfate 2.5 mg/3 mL (0.083 %) solution for nebulization RxNorm: 830301 3 Milliliter(s) INH UD 05/22/2018 No Stop Date Active cefdinir 300 mg capsule RxNorm: 620618 1 Capsule(s) PO BID 05/22/2018 05/31/2018 Inactive ceftriaxone 500 mg solution for injection RxNorm: 1864367 2 Milliliter(s) Inj 05/22/2018 05/22/2018 Inactive diclofenac sodium 75 mg tablet,delayed release RxNorm: 763150 1 TABLET(S) PO BID 05/14/2018 02/07/2019 Active gabapentin 600 mg tablet RxNorm: 339439 TABLET(S) TAKE 1 TABLET BY MOUTH TWICE DAILY 04/23/2018 04/17/2019 Active prednisone 20 mg tablet RxNorm: 459978 2 Tablet(s) PO daily 04/20/2018 04/24/2018 Inactive Kenalog 40 mg/mL suspension for injection RxNorm: 4021037 Milliliter(s) Inj 04/20/2018 04/20/2018 Inactive Augmentin 500 mg-125 mg tablet RxNorm: 543949 1 Tablet(s) PO TID 04/20/2018 04/26/2018 Inactive oxycodone 5 mg tablet RxNorm: 8314142 4 Tablet(s) PO daily 04/12/2018 06/25/2018 Inactive potassium chloride ER 20 mEq tablet,extended release RxNorm: 594475 1 TABLET(S) PO DAILY 03/09/2018 03/03/2019 Active oxycodone 5 mg tablet RxNorm: 9812841 4 Tablet(s) PO daily 01/18/2018 04/02/2018 Inactive Augmentin 500 mg-125 mg tablet RxNorm: 990286 1 Tablet(s) PO TID 12/14/2017 12/23/2017 Inactive take probiotic bid x 10 days pantoprazole 40 mg tablet,delayed release RxNorm: 724331 TAKE 1 TABLET BY MOUTH DAILY 12/11/2017 12/05/2018 Active Augmentin 500 mg-125 mg tablet RxNorm: 446185 1 Tablet(s) PO TID 11/17/2017 11/22/2017 Inactive take probiotic bid x 7 days lisinopril 40 mg tablet RxNorm: 733802 TAKE 1 TABLET BY MOUTH DAILY 11/06/2017 08/02/2018 Active oxycodone 5 mg tablet RxNorm: 6670863 4 Tablet(s) PO daily 10/16/2017 12/29/2017 Inactive Cymbalta 30 mg capsule,delayed release RxNorm: 351730 2 Capsule(s) PO daily 08/17/2017 02/12/2018 Inactive Zoloft 25 mg tablet RxNorm: 135090 1 TABLET(S) PO DAILY X 5 DAYS THEN INCREASE TO 50MG DAILY 08/16/2017 No Stop Date Active Cymbalta 30 mg capsule,delayed release RxNorm: 888150 1 Capsule(s) PO 1 CAPSULE(S) PO DAILY X 1 WEEK, THEN INCREASE TO 2 DAILY 08/15/2017 08/16/2017 Inactive Patient requests 90 days supply diclofenac sodium 75 mg tablet,delayed release RxNorm: 905120 1 TABLET(S) PO BID 08/14/2017 05/10/2018 Inactive oxycodone 5 mg tablet RxNorm: 4428290 4 Tablet(s) PO daily 08/01/2017 10/14/2017 Inactive valacyclovir 1 gram tablet RxNorm: 090797 1 Tablet(s) PO TID 07/12/2017 07/11/2017 Inactive Zoloft 50 mg tablet RxNorm: 998154 1 Tablet(s) PO daily 07/12/2017 08/01/2017 Inactive valacyclovir 1 gram tablet RxNorm: 012330 1 Tablet(s) PO TID 07/12/2017 07/18/2017 Inactive Zoloft 50 mg tablet RxNorm: 031947 1 Tablet(s) PO daily 07/12/2017 07/11/2017 Inactive Zoloft 25 mg tablet RxNorm: 591355 1 Tablet(s) PO daily x 5 days then increase to 50mg daily 07/11/2017 07/11/2017 Inactive Cymbalta 30 mg capsule,delayed release RxNorm: 153834 1 Capsule(s) PO daily x 1 week, then increase to 2 daily 06/30/2017 06/29/2017 Inactive Cymbalta 30 mg capsule,delayed release RxNorm: 191368 1 CAPSULE(S) PO DAILY X 1 WEEK, THEN INCREASE TO 2 DAILY 06/30/2017 07/04/2017 Inactive Patient requests 90 days supply Augmentin 875 mg-125 mg tablet RxNorm: 798302 1 Tablet(s) PO BID 05/22/2017 05/28/2017 Inactive Probiotic QID while on antibiotics Bactrim DS 800 mg-160 mg tablet RxNorm: 473750 1 Tablet(s) PO BID 05/22/2017 05/21/2017 Inactive Probiotic QID while on antibiotics Bactrim DS 800 mg-160 mg tablet RxNorm: 747970 1 Tablet(s) PO BID 05/22/2017 05/28/2017 Inactive Probiotic QID while on antibiotics Augmentin 875 mg-125 mg tablet RxNorm: 310857 1 Tablet(s) PO BID 05/22/2017 05/21/2017 Inactive Probiotic QID while on antibiotics Cipro 500 mg tablet RxNorm: 493190 1 Tablet(s) PO BID 04/21/2017 04/30/2017 Inactive Take probiotic while on ABT Cipro 500 mg tablet RxNorm: 914084 1 Tablet(s) PO BID 04/21/2017 04/20/2017 Inactive Diflucan 150 mg tablet RxNorm: 550713 1 Tablet(s) PO daily 04/19/2017 11/13/2017 Inactive Diflucan 150 mg tablet RxNorm: 780258 1 Tablet(s) PO daily 04/19/2017 04/18/2017 Inactive oxycodone 5 mg tablet RxNorm: 4291707 4 Tablet(s) PO daily 04/17/2017 06/30/2017 Inactive gabapentin 600 mg tablet RxNorm: 795020 TABLET(S) TAKE 1 TABLET BY MOUTH TWICE DAILY 04/14/2017 04/08/2018 Inactive Rocephin 1 gram solution for injection RxNorm: 895086 1 Inj daily 04/05/2017 04/11/2017 Inactive Rocephin 1 gram solution for injection RxNorm: 847830 1 Inj daily 04/04/2017 04/04/2017 Inactive lidocaine (PF) 10 mg/mL (1 %) injection solution RxNorm: 1524743 1 Milliliter(s) Inj daily 04/04/2017 04/10/2017 Inactive Use to administer rocephin lidocaine (PF) 10 mg/mL (1 %) injection solution RxNorm: 1734921 1 Milliliter(s) Inj daily 04/04/2017 04/03/2017 Inactive Use to administer rocephin Rocephin 1 gram solution for injection RxNorm: 053704 1 Inj daily 04/04/2017 04/03/2017 Inactive Augmentin 500 mg-125 mg tablet RxNorm: 149144 1 Tablet(s) PO TID 03/31/2017 04/03/2017 Inactive Augmentin 500 mg-125 mg tablet RxNorm: 101693 1 Tablet(s) PO TID 03/31/2017 03/30/2017 Inactive Effexor XR 75 mg capsule,extended release RxNorm: 134354 TAKE 3 CAPSULES BY MOUTH EVERY MORNING 03/24/2017 11/13/2017 Inactive potassium chloride ER 20 mEq tablet,extended release RxNorm: 388795 1 TABLET(S) PO DAILY 03/13/2017 03/07/2018 Inactive lisinopril 40 mg tablet RxNorm: 663776 TAKE 1 TABLET BY MOUTH DAILY 02/06/2017 11/02/2017 Inactive pantoprazole 40 mg tablet,delayed release RxNorm: 683356 TAKE 1 TABLET BY MOUTH DAILY 12/19/2016 12/10/2017 Inactive oxycodone 5 mg tablet RxNorm: 9762874 4 Tablet(s) PO daily 12/19/2016 03/03/2017 Inactive diclofenac sodium 75 mg tablet,delayed release RxNorm: 886400 1 TABLET(S) PO BID 11/17/2016 08/13/2017 Inactive gabapentin 600 mg tablet RxNorm: 613890 TABLET(S) TAKE 1 TABLET BY MOUTH TWICE DAILY 10/14/2016 04/11/2017 Inactive Flagyl 500 mg tablet RxNorm: 520346 1 Tablet(s) PO TID 10/07/2016 10/16/2016 Inactive oxycodone 5 mg tablet RxNorm: 5764494 4 Tablet(s) PO daily 10/03/2016 12/16/2016 Inactive Effexor XR 75 mg capsule,extended release RxNorm: 487893 TAKE 3 CAPSULES BY MOUTH EVERY MORNING 09/22/2016 11/20/2016 Inactive Patient requests 90 days supply lisinopril 40 mg tablet RxNorm: 516084 TAKE 1 TABLET BY MOUTH DAILY 08/01/2016 01/27/2017 Inactive Effexor XR 75 mg capsule,extended release RxNorm: 706530 TAKE 3 CAPSULES BY MOUTH EVERY MORNING 07/21/2016 09/21/2016 Inactive oxycodone 5 mg tablet RxNorm: 9256509 4 Tablet(s) PO daily 07/11/2016 09/23/2016 Inactive Movantik 25 mg tablet RxNorm: 2986975 1 Tablet(s) PO daily 07/01/2016 11/13/2017 Inactive potassium chloride ER 20 mEq tablet,extended release RxNorm: 722073 1 TABLET(S) PO DAILY 06/14/2016 03/10/2017 Inactive Flagyl 500 mg tablet RxNorm: 831197 1 Tablet(s) PO TID 06/03/2016 06/12/2016 Inactive Flagyl 500 mg tablet RxNorm: 063430 1 Tablet(s) PO TID 06/03/2016 06/02/2016 Inactive oxycodone 5 mg tablet RxNorm: 4190125 4 Tablet(s) PO daily 04/27/2016 07/10/2016 Inactive Tamiflu 75 mg capsule RxNorm: 459156 1 Capsule(s) PO daily 04/19/2016 04/28/2016 Inactive Tamiflu 75 mg capsule RxNorm: 835713 1 Capsule(s) PO daily 04/19/2016 04/18/2016 Inactive Effexor XR 75 mg capsule,extended release RxNorm: 187304 TAKE 3 CAPSULES BY MOUTH EVERY MORNING 02/18/2016 04/17/2016 Inactive diclofenac sodium 75 mg tablet,delayed release RxNorm: 037355 1 TABLET(S) PO BID 02/18/2016 11/13/2016 Inactive Effexor XR 75 mg capsule,extended release RxNorm: 313703 Capsule(s) TAKE 3 CAPSULES BY MOUTH EVERY MORNING 02/17/2016 08/14/2016 Inactive oxycodone 5 mg tablet RxNorm: 8070570 4 Tablet(s) PO daily 02/04/2016 04/26/2016 Inactive clopidogrel 75 mg tablet RxNorm: 503808 1 TABLET(S) PO QAM 02/01/2016 01/25/2017 Inactive gabapentin 600 mg tablet RxNorm: 591493 Tablet(s) TAKE 1 TABLET BY MOUTH TWICE DAILY 02/01/2016 10/13/2016 Inactive Effexor XR 75 mg capsule,extended release RxNorm: 903074 TAKE 3 CAPSULES BY MOUTH EVERY MORNING 01/11/2016 02/09/2016 Inactive pantoprazole 40 mg tablet,delayed release RxNorm: 651536 TAKE 1 TABLET BY MOUTH DAILY 12/22/2015 12/15/2016 Inactive Effexor XR 75 mg capsule,extended release RxNorm: 993534 TAKE 3 CAPSULES BY MOUTH EVERY MORNING 11/16/2015 01/14/2016 Inactive lisinopril 40 mg tablet RxNorm: 466006 TAKE 1 TABLET BY MOUTH DAILY 11/05/2015 07/31/2016 Inactive Effexor XR 75 mg capsule,extended release RxNorm: 862248 TAKE 3 CAPSULES BY MOUTH EVERY MORNING 09/22/2015 11/20/2015 Inactive Augmentin 500 mg-125 mg tablet RxNorm: 228576 1 Tablet(s) PO TID 09/18/2015 09/24/2015 Inactive Anoro Ellipta 62.5 mcg-25 mcg/actuation powder for inhalation RxNorm: 0110829 1 INH daily 08/20/2015 02/15/2016 Inactive Anoro Ellipta 62.5 mcg-25 mcg/actuation powder for inhalation RxNorm: 5445382 1 INH DAILY 08/20/2015 11/13/2017 Inactive lisinopril 40 mg tablet RxNorm: 687822 TAKE 1 TABLET BY MOUTH DAILY 08/10/2015 11/04/2015 Inactive gabapentin 600 mg tablet RxNorm: 667247 TAKE 1 TABLET BY MOUTH TWICE DAILY 08/10/2015 01/31/2016 Inactive terazosin 2 mg capsule RxNorm: 145798 TAKE ONE CAPSULE BY MOUTH EVERY DAY 07/27/2015 08/29/2016 Inactive hyoscyamine 0.125 mg sublingual tablet RxNorm: 9599732 1 Tablet(s) SL TID as needed 07/24/2015 08/02/2015 Inactive metronidazole 500 mg tablet RxNorm: 519845 1 Tablet(s) PO TID 07/24/2015 07/30/2015 Inactive Effexor XR 75 mg capsule,extended release RxNorm: 559669 TAKE 3 CAPSULES BY MOUTH EVERY MORNING 07/23/2015 09/20/2015 Inactive oxycodone 5 mg tablet RxNorm: 3759518 4 Tablet(s) PO daily 06/26/2015 02/03/2016 Inactive potassium chloride ER 20 mEq tablet,extended release RxNorm: 809063 1 Tablet(s) PO daily 06/25/2015 06/13/2016 Inactive oxycodone 5 mg tablet RxNorm: 0920506 4 Tablet(s) PO daily 04/17/2015 06/25/2015 Inactive rx written Anoro Ellipta 62.5 mcg-25 mcg/actuation powder for inhalation RxNorm: 9347267 1 INH daily 04/17/2015 08/19/2015 Inactive potassium chloride ER 20 mEq tablet,extended release RxNorm: 790437 1 Tablet(s) PO daily 03/23/2015 06/24/2015 Inactive triamcinolone acetonide 0.1 % topical cream RxNorm: 2728881 1 Application TOP BID 03/20/2015 No Stop Date Active carvedilol 12.5 mg tablet RxNorm: 628824 1 TABLET(S) PO BID 02/23/2015 08/21/2015 Inactive diclofenac sodium 75 mg tablet,delayed release RxNorm: 708868 1 Tablet(s) PO BID 02/18/2015 02/12/2016 Inactive carvedilol 12.5 mg tablet RxNorm: 449625 1 Tablet(s) PO BID 02/17/2015 02/11/2016 Inactive furosemide 40 mg tablet RxNorm: 485442 1 Tablet(s) PO daily 02/17/2015 02/11/2016 Inactive lisinopril 40 mg tablet RxNorm: 289544 TAKE 1 TABLET BY MOUTH DAILY 02/16/2015 08/09/2015 Inactive ceftriaxone 1 gram solution for injection RxNorm: 1952399 1 Gram(s) Inj daily mix with lidocaine 01/14/2015 01/17/2015 Inactive please supply 4 bottles of 1gram rocephin IM with 1 bottle of lidocaine 1% for home health to administer to pt starting 01/15 ceftriaxone 1 gram solution for injection RxNorm: 0648607 1 Gram(s) Inj daily 01/14/2015 01/13/2015 Inactive please supply 4 bottles of 1gram rocephin IM with 1 bottle of lidocaine 1% for home health to administer to pt starting 01/15 Augmentin 500 mg-125 mg tablet RxNorm: 924146 1 Tablet(s) PO BID 01/13/2015 01/22/2015 Inactive Keflex 500 mg capsule RxNorm: 489269 1 Capsule(s) PO TID 12/12/2014 12/11/2014 Inactive Keflex 500 mg capsule RxNorm: 251967 1 Capsule(s) PO TID 12/12/2014 12/17/2014 Inactive Augmentin 500 mg-125 mg tablet RxNorm: 856769 1 Tablet(s) PO BID 11/28/2014 12/02/2014 Inactive Augmentin 500 mg-125 mg tablet RxNorm: 801471 1 Tablet(s) PO BID 11/28/2014 11/27/2014 Inactive Cipro 500 mg tablet RxNorm: 056798 1 Tablet(s) PO BID 11/24/2014 11/27/2014 Inactive gabapentin 600 mg tablet RxNorm: 480583 1 Tablet(s) PO BID 11/17/2014 08/13/2015 Inactive gabapentin 600 mg tablet RxNorm: 111380 1 Tablet(s) PO BID 11/17/2014 11/16/2014 Inactive oxycodone 5 mg tablet RxNorm: 1689587 4 Tablet(s) PO daily 11/07/2014 02/04/2015 Inactive rx written Effexor XR 75 mg capsule,extended release RxNorm: 841927 3 Capsule(s) 225 PO QAM 11/05/2014 03/04/2015 Inactive clopidogrel 75 mg tablet RxNorm: 328208 1 Tablet(s) PO QAM 11/05/2014 01/28/2016 Inactive Effexor XR 75 mg capsule,extended release RxNorm: 319319 3 Capsule(s) 225 PO QAM 11/03/2014 11/04/2014 Inactive carvedilol 12.5 mg tablet RxNorm: 092255 1 Tablet(s) PO BID 10/28/2014 02/16/2015 Inactive Effexor XR 75 mg capsule,extended release RxNorm: 428563 3 Capsule(s) 225 PO QAM 10/28/2014 11/02/2014 Inactive Effexor XR 75 mg capsule,extended release RxNorm: 008694 3 Capsule(s) 225 PO QAM 10/28/2014 10/27/2014 Inactive carvedilol 12.5 mg tablet RxNorm: 237262 1 Tablet(s) PO BID 10/28/2014 10/27/2014 Inactive ceftriaxone 1 gram solution for injection RxNorm: 8306239 Inj 09/05/2014 09/05/2014 Inactive Cipro 500 mg tablet RxNorm: 158751 1 Tablet(s) PO BID 09/04/2014 09/03/2014 Inactive Cipro 500 mg tablet RxNorm: 170701 1 Tablet(s) PO BID 09/04/2014 09/10/2014 Inactive oxycodone 5 mg tablet RxNorm: 5195300 4 Tablet(s) PO daily 08/20/2014 11/06/2014 Inactive rx written lisinopril 40 mg tablet RxNorm: 137718 TAKE 1 TABLET BY MOUTH DAILY 08/18/2014 02/13/2015 Inactive nystatin 100,000 unit/mL oral suspension RxNorm: 577059 5 Milliliter(s) PO QID 07/04/2014 07/13/2014 Inactive [SAVINGS FOR NON-COVERED DRUGS -- BIN:[id number], PCN: [id number], Group: [id number], ID# [id number], Questions: . THIS IS NOT INSURANCE.] WelChol 3.75 gram oral powder packet RxNorm: 613178 1 PO BID No Start Date Active amlodipine 10 mg tablet RxNorm: 751490 1 Tablet(s) PO QAM No Start Date Active One A Day oral RxNorm: 54208 oral No Start Date Active Vitamin D2 400 unit capsule RxNorm: 677442 1 Capsule(s) PO daily No Start Date Active aspirin 81 mg tablet,delayed release RxNorm: 178468 1 Tablet(s) PO daily No Start Date Active melatonin 5 mg disintegrating tablet RxNorm: 3728201 1 Tablet(s) PO QHS No Start Date Active Miralax 17 gram/dose oral powder RxNorm: 503314 17 Gram(s) PO daily in prune juice No Start Date Active clonidine HCl 0.1 mg tablet RxNorm: 284691 1 Tablet(s) PO QHS No Start Date Active hydrochlorothiazide oral RxNorm: 5487 oral No Start Date Active Lasix oral RxNorm: 668016 oral No Start Date 02/17/2015 Inactive potassium chloride 20 meq RxNorm: 051969 PO daily No Start Date 03/22/2015 Inactive Zoloft 25 mg tablet RxNorm: 701517 1 Tablet(s) PO daily x 5 days then increase to 50mg daily No Start Date 07/10/2017 Inactive oxycodone 5 mg tablet RxNorm: 6684004 3-4 Tablet(s) PO QHS No Start Date 08/19/2014 Inactive terazosin 2 mg capsule RxNorm: 038116 1 Capsule(s) PO daily No Start Date 07/26/2015 Inactive Effexor XR 75 mg capsule,extended release RxNorm: 970541 3 Capsule(s) 225 PO QAM No Start Date 10/27/2014 Inactive gabapentin 600 mg tablet RxNorm: 296212 1 Tablet(s) PO BID No Start Date 11/16/2014 Inactive pantoprazole 40 mg tablet,delayed release RxNorm: 620780 oral No Start Date 12/21/2015 Inactive Anoro Ellipta 62.5 mcg-25 mcg/actuation powder for inhalation RxNorm: 0188691 1 INH daily No Start Date 04/16/2015 Inactive diclofenac sodium 75 mg tablet,delayed release RxNorm: 629545 1 Tablet(s) PO BID No Start Date 02/17/2015 Inactive clopidogrel 75 mg tablet RxNorm: 843641 1 Tablet(s) PO QAM No Start Date 11/04/2014 Inactive lisinopril 40 mg tablet RxNorm: 209327 1 Tablet(s) PO daily No Start Date 08/17/2014 Inactive carvedilol 12.5 mg tablet RxNorm: 675717 1 Tablet(s) PO BID No Start Date 10/27/2014 Inactive Medication Administered Medication Codes Instructions Start Date Status ceftriaxone 500 mg solution for injection RxNorm: 3332114 2Milliliter 05/22/2018 No longer Active Kenalog 40 mg/mL suspension for injection RxNorm: 9073242 Milliliter 04/20/2018 No longer Active ceftriaxone 1 gram solution for injection RxNorm: 2015540 09/05/2014 No longer Active Immunizations Vaccine Codes [...] 20.6 % 05/22/2018 Cbc With Differential Ord2 Nobles% 14.7 % 05/22/2018 Cbc With Differential Ord2 [...] 2.01 K/ul 05/22/2018 Cbc With Differential Ord2 Nobles ABS# 1.4 K/ul 05/22/2018 Cbc With Differential Ord2 Eos ABS# 0.4 K/ul 05/22/2018 Cbc With Differential Ord2 Baso ABS# 0.0 K/ul 05/22/2018 Comp Metabolic Vqp476 NA 136 mEq/L 05/22/2018 Comp Metabolic Wyz414 K 4.7 mEq/L 05/22/2018 Comp Metabolic Hlf947 CL 104 mEq/L 05/22/2018 Comp Metabolic Eak803 CO2 23.0 mEq/L 05/22/2018 Comp Metabolic Ujl200 ANION GAP 14 05/22/2018 Comp Metabolic Kso720 GLUCOSE 113 mg/dL 05/22/2018 Comp Metabolic Xdn563 Creat 1.6 mg/dL 05/22/2018 Comp Metabolic Oxt393 eGFR 46 ml/min/1.73m2 05/22/2018 Comp Metabolic Crw263 BUN 21 mg/dL 05/22/2018 Comp Metabolic Gmz120 B/C Ratio 13.5 Ratio 05/22/2018 Comp Metabolic Tae285 CALCIUM 8.6 mg/dL 05/22/2018 Comp Metabolic Jvk391 ALK PHOS 84 U/L 05/22/2018 Comp Metabolic Eks806 AST(SGOT) 17 U/L 05/22/2018 Comp Metabolic Yxj874 ALT(SGPT) 22 U/L 05/22/2018 Comp Metabolic Osg091 BILI T 0.5 mg/dL 05/22/2018 Comp Metabolic Ycc239 ALBUMIN 3.4 g/dL 05/22/2018 Comp Metabolic Fva996 TPRO 6.6 g/dL 05/22/2018 Comp Metabolic Iwh935 GLOB 3.2 g/dL 05/22/2018 Comp Metabolic Kbf123 A/G Ratio 1.0 Ratio 05/22/2018 Comp Metabolic Dep541 Osmo 276 mOsmo 05/22/2018 B Type Natriuretic Peptide Xsq7575 B-PRIVACY SPECIALIST 258.00 pg/ml 05/22/2018 Magnesium Ord90 Mag 2.3 mg/dL 05/22/2018 Urine Culture Ucult Complete >100,000 col/ml aerobic growth sent to ref lab 12/15/2017 Lipid Ord30 CHOL 128 mg/dL 11/14/2017 Lipid Ord30 HDL 24.0 mg/dl 11/14/2017 Lipid Ord30 TRIG 206 mg/dL 11/14/2017 Lipid Ord30 LDL 63 mg/dL 11/14/2017 Lipid Ord30 C/HDL 5.3 Ratio 11/14/2017 Tsh Ord6 TSH (3rd IS) 3.24 uIU/mL 11/14/2017 Comp Metabolic Pva001 NA 137 mEq/L 11/14/2017 Comp Metabolic Gjd988 K 4.0 mEq/L 11/14/2017 Comp Metabolic For175 CL 104 mEq/L 11/14/2017 Comp Metabolic Fbn253 CO2 23.0 mEq/L 11/14/2017 Comp Metabolic Ago701 ANION GAP 14 11/14/2017 Comp Metabolic Lsh398 GLUCOSE 101 mg/dL 11/14/2017 Comp Metabolic Iyv834 Creat 1.1 mg/dL 11/14/2017 Comp Metabolic Ttz801 eGFR 67 ml/min/1.73m2 11/14/2017 Comp Metabolic Hpx056 BUN 18 mg/dL 11/14/2017 Comp Metabolic Csi764 B/C Ratio 15.9 Ratio 11/14/2017 Comp Metabolic Bkp173 CALCIUM 9.0 mg/dL 11/14/2017 Comp Metabolic Qce584 ALK PHOS 81 U/L 11/14/2017 Comp Metabolic Lgx772 AST(SGOT) 19 U/L 11/14/2017 Comp Metabolic Ybq678 ALT(SGPT) 18 U/L 11/14/2017 Comp Metabolic Jxz629 BILI T 0.3 mg/dL 11/14/2017 Comp Metabolic Jvw969 ALBUMIN 3.8 g/dL 11/14/2017 Comp Metabolic Jhd889 TPRO 7.3 g/dL 11/14/2017 Comp Metabolic Gxg576 GLOB 3.5 g/dL 11/14/2017 Comp Metabolic Vpq640 A/G Ratio 1.1 Ratio 11/14/2017 Comp Metabolic Hok588 Osmo 276 mOsmo 11/14/2017 Cbc With Differential [...] 29.9 pg 11/14/2017 Cbc With Differential Ord2 Nobles% 11.2 % 11/14/2017 Cbc With Differential Ord2 [...] 1.85 K/ul 11/14/2017 Cbc With Differential Ord2 Nobles ABS# 1.0 K/ul 11/14/2017 Cbc With Differential Ord2 Eos ABS# 0.6 K/ul 11/14/2017 Cbc With Differential Ord2 Baso ABS# 0.0 K/ul 11/14/2017 Culture Urine [id number] URINE CULTURE SEE NOTES 05/22/2017 Culture Urine [id number] Continued Results 05/22/2017 Urine Culture Ucult Complete >100,000 col/ml aerobic growth sent to ref lab 05/16/2017 Culture Urine [id number] URINE CULTURE SEE NOTES 04/21/2017 Urine Culture [...] 30.9 pg 03/30/2017 Cbc With Differential Ord2 Nobles% 13.0 % 03/30/2017 Cbc With Differential Ord2 [...] 1.69 K/ul 03/30/2017 Cbc With Differential Ord2 Nobles ABS# 0.9 K/ul 03/30/2017 Cbc With Differential Ord2 Eos ABS# 0.5 K/ul 03/30/2017 Cbc With Differential Ord2 Baso ABS# 0.0 K/ul 03/30/2017 %Hba1C Zgy474 % HbA1c 83387- 6 5.8 % 03/30/2017 %Hba1C Ujy736 Gluc Ave 120 mg/dL 03/30/2017 Comp Metabolic Eib597 NA 140 mEq/L 03/30/2017 Comp Metabolic Jkq238 K 4.0 mEq/L 03/30/2017 Comp Metabolic Pfb517 CL 105 mEq/L 03/30/2017 Comp Metabolic Yft483 CO2 25.0 mEq/L 03/30/2017 Comp Metabolic Gpx525 ANION GAP 14 03/30/2017 Comp Metabolic Wtp022 GLUCOSE 108 mg/dL 03/30/2017 Comp Metabolic Zce886 Creat 1.2 mg/dL 03/30/2017 Comp Metabolic Jkn843 eGFR 63 ml/min/1.73m2 03/30/2017 Comp Metabolic Yir599 BUN 20 mg/dL 03/30/2017 Comp Metabolic Pzi560 B/C Ratio 16.9 Ratio 03/30/2017 Comp Metabolic Vho634 CALCIUM 9.2 mg/dL 03/30/2017 Comp Metabolic Irc434 ALK PHOS 83 U/L 03/30/2017 Comp Metabolic Ntn671 AST(SGOT) 17 U/L 03/30/2017 Comp Metabolic Zgs290 ALT(SGPT) 19 U/L 03/30/2017 Comp Metabolic Sts096 BILI T 0.3 mg/dL 03/30/2017 Comp Metabolic Xit926 ALBUMIN 3.9 g/dL 03/30/2017 Comp Metabolic Che216 TPRO 7.2 g/dL 03/30/2017 Comp Metabolic Bhc396 GLOB 3.3 g/dL 03/30/2017 Comp Metabolic Lir434 A/G Ratio 1.2 Ratio 03/30/2017 Comp Metabolic Ngj384 Osmo 283 mOsmo 03/30/2017 Tsh Ord6 TSH (3rd IS) 1.40 uIU/mL 03/30/2017 Clostridium Diff Tox A/B Kpm326 Cdiff Positive 06/03/2016 Total Psa PSA 1.53 [...] 31.2 pg 03/20/2015 Cbc With Differential Ord2 Nobles% 12.8 % 03/20/2015 Cbc With Differential Ord2 [...] 1.69 K/ul 03/20/2015 Cbc With Differential Ord2 Nobles ABS# 0.8 K/ul 03/20/2015 Cbc With Differential Ord2 Eos ABS# 0.6 K/ul 03/20/2015 Cbc With Differential Ord2 Baso ABS# 0.0 K/ul 03/20/2015 Cbc With Differential Ord2 New Analyzer Notice Please note new ref ranges starting 03-04-2015 due to implemntation of new five part differential hematolgy analyzer. 03/20/2015 Total Psa Ord10 PSA 2.25 ng/mL 02/26/2015 Comp Metabolic Omr180 NA 138 mEq/L 02/26/2015 Comp Metabolic Wjb667 K 4.0 mEq/L 02/26/2015 Comp Metabolic Ijb066 CL 103 mEq/L 02/26/2015 Comp Metabolic Pss130 CO2 28.0 mEq/L 02/26/2015 Comp Metabolic Bub430 ANION GAP 11 02/26/2015 Comp Metabolic Dwy922 GLUCOSE 95 mg/dL 02/26/2015 Comp Metabolic Ztm810 Creat 1.0 mg/dL 02/26/2015 Comp Metabolic Nxc067 eGFR 74 ml/min/1.73m2 02/26/2015 Comp Metabolic Fbs835 BUN 19 mg/dL 02/26/2015 Comp Metabolic Mtu387 B/C Ratio 18.3 Ratio 02/26/2015 Comp Metabolic Yra747 CALCIUM 9.1 mg/dL 02/26/2015 Comp Metabolic Cqz485 ALK PHOS 87 U/L 02/26/2015 Comp Metabolic Ndr309 AST(SGOT) 22 U/L 02/26/2015 Comp Metabolic Dld646 ALT(SGPT) 24 U/L 02/26/2015 Comp Metabolic Pyd078 BILI T 0.4 mg/dL 02/26/2015 Comp Metabolic Ghy446 ALBUMIN 4.0 g/dL 02/26/2015 Comp Metabolic Xif491 TPRO 7.4 g/dL 02/26/2015 Comp Metabolic Zxc518 GLOB 3.4 g/dL 02/26/2015 Comp Metabolic Qha311 A/G Ratio 1.2 Ratio 02/26/2015 Comp Metabolic Iyw876 Osmo 278 mOsmo 02/26/2015 Culture Urine [id number] URINE CULTURE SEE NOTES 12/15/2014 Culture Urine [id number] Continued Results 12/15/2014 Urine Culture Ucult Complete >100,000 col/ml aerobic growth sent to ref lab 12/12/2014 Comp Metabolic Awc860 NA 136 mEq/L 12/05/2014 Comp Metabolic Shy657 K 4.3 mEq/L 12/05/2014 Comp Metabolic Mqs364 CL 104 mEq/L 12/05/2014 Comp Metabolic Gcw852 CO2 29.0 mEq/L 12/05/2014 Comp Metabolic Xzc151 ANION GAP 7 12/05/2014 Comp Metabolic Xch297 GLUCOSE 80 mg/dL 12/05/2014 Comp Metabolic Exd555 Creat 1.1 mg/dL 12/05/2014 Comp Metabolic The625 eGFR 68 ml/min/1.73m2 12/05/2014 Comp Metabolic Afr762 BUN 21 mg/dL 12/05/2014 Comp Metabolic Ywb048 B/C Ratio 18.8 Ratio 12/05/2014 Comp Metabolic Btc611 CALCIUM 9.3 mg/dL 12/05/2014 Comp Metabolic Msi222 ALK PHOS 81 U/L 12/05/2014 Comp Metabolic Zts141 AST(SGOT) 17 U/L 12/05/2014 Comp Metabolic Sog883 ALT(SGPT) 16 U/L 12/05/2014 Comp Metabolic Gey153 BILI T 0.3 mg/dL 12/05/2014 Comp Metabolic Obe226 ALBUMIN 4.0 g/dL 12/05/2014 Comp Metabolic Fmp933 TPRO 6.9 g/dL 12/05/2014 Comp Metabolic Hdu988 GLOB 2.9 g/dL 12/05/2014 Comp Metabolic Vdm992 A/G Ratio 1.4 Ratio 12/05/2014 Comp Metabolic Nwh959 Osmo 274 mOsmo 12/05/2014 Cbc With Differential [...] Ord2 RDW 15.0 % 12/05/2014 Culture Urine [id number] URINE CULTURE SEE NOTES 11/27/2014 Culture Urine [id number] Continued Results 11/27/2014 Urine Culture Ucult Complete Growth of aerobe sent to ref lab 11/25/2014 B Type Natriuretic Peptide Nev1346 B-PRIVACY SPECIALIST 121.00 pg/ml 10/08/2014 Cbc With Differential Ord2 [...] Folate Ord36 Folate 22.12 ng/mL 10/08/2014 B12 Iul841 B12 >1500.00 pg/ml 10/08/2014 Comp Metabolic Acc227 NA 135 mEq/L 10/08/2014 Comp Metabolic Gqi210 K 4.5 mEq/L 10/08/2014 Comp Metabolic Teq403 CL 104 mEq/L 10/08/2014 Comp Metabolic Fro783 CO2 25.0 mEq/L 10/08/2014 Comp Metabolic Qym410 ANION GAP 11 10/08/2014 Comp Metabolic Voh388 GLUCOSE 73 mg/dL 10/08/2014 Comp Metabolic Rdf762 Creat 1.1 mg/dL 10/08/2014 Comp Metabolic Avk040 eGFR 71 ml/min/1.73m2 10/08/2014 Comp Metabolic Lrv678 BUN 21 mg/dL 10/08/2014 Comp Metabolic Win128 B/C Ratio 19.4 Ratio 10/08/2014 Comp Metabolic Cjx906 CALCIUM 9.0 mg/dL 10/08/2014 Comp Metabolic Fio518 ALK PHOS 73 U/L 10/08/2014 Comp Metabolic Aaz411 AST(SGOT) 15 U/L 10/08/2014 Comp Metabolic Zao862 ALT(SGPT) 14 U/L 10/08/2014 Comp Metabolic Rqm173 BILI T 0.4 mg/dL 10/08/2014 Comp Metabolic Fny937 ALBUMIN 4.2 g/dL 10/08/2014 Comp Metabolic Bib645 TPRO 7.1 g/dL 10/08/2014 Comp Metabolic Fbm660 GLOB 2.9 g/dL 10/08/2014 Comp Metabolic Yuh098 A/G Ratio 1.4 Ratio 10/08/2014 Comp Metabolic Afr324 Osmo 272 mOsmo 10/08/2014 B12 Goq554 B12 554.00 pg/ml 09/16/2014 Tibc Ord40 Iron 108 ug/dl 09/16/2014 Tibc Ord40 UIBC 281 ug/dL 09/16/2014 Tibc Ord40 TIBC 389 ug/dL 09/16/2014 Tibc Ord40 Fe-%Sat 27.8 % 09/16/2014 Folate Ord36 Folate >23.20 ng/mL 09/16/2014 Comp Metabolic Bkd761 NA 134 mEq/L 09/16/2014 Comp Metabolic Leu172 K 4.6 mEq/L 09/16/2014 Comp Metabolic Avo127 CL 103 mEq/L 09/16/2014 Comp Metabolic Ifh289 CO2 25.0 mEq/L 09/16/2014 Comp Metabolic Viz451 ANION GAP 11 09/16/2014 Comp Metabolic Wgz788 GLUCOSE 93 mg/dL 09/16/2014 Comp Metabolic Vsj277 Creat 1.2 mg/dL 09/16/2014 Comp Metabolic Ncg676 eGFR 65 ml/min/1.73m2 09/16/2014 Comp Metabolic Hwl240 BUN 23 mg/dL 09/16/2014 Comp Metabolic Hjh821 B/C Ratio 19.8 Ratio 09/16/2014 Comp Metabolic Akw404 CALCIUM 9.1 mg/dL 09/16/2014 Comp Metabolic Dlt969 ALK PHOS 73 U/L 09/16/2014 Comp Metabolic Iae281 AST(SGOT) 18 U/L 09/16/2014 Comp Metabolic Wzc133 ALT(SGPT) 16 U/L 09/16/2014 Comp Metabolic Lge263 BILI T 0.4 mg/dL 09/16/2014 Comp Metabolic Wdl097 ALBUMIN 4.0 g/dL 09/16/2014 Comp Metabolic Ccu870 TPRO 7.1 g/dL 09/16/2014 Comp Metabolic Flx979 GLOB 3.1 g/dL 09/16/2014 Comp Metabolic Wlf120 A/G Ratio 1.3 Ratio 09/16/2014 Comp Metabolic Hwf234 Osmo 272 mOsmo 09/16/2014 Cbc With Differential [...] Ord22 FERRITIN 36.2 ng/mL 09/16/2014 Culture Urine [id number] URINE CULTURE SEE NOTES 09/08/2014 Urine Culture [...] Ord2 RDW 17.8 % 09/05/2014 Comp Metabolic Xse748 NA 133 mEq/L 09/05/2014 Comp Metabolic Bzx792 K 4.9 mEq/L 09/05/2014 Comp Metabolic Sob453 CL 99 mEq/L 09/05/2014 Comp Metabolic Xcr245 CO2 26.0 mEq/L 09/05/2014 Comp Metabolic Vjq777 ANION GAP 13 09/05/2014 Comp Metabolic Vjg259 GLUCOSE 83 mg/dL 09/05/2014 Comp Metabolic Jcm615 Creat 1.5 mg/dL 09/05/2014 Comp Metabolic Dit354 eGFR 47 ml/min/1.73m2 09/05/2014 Comp Metabolic Srj046 BUN 28 mg/dL 09/05/2014 Comp Metabolic Mzw117 B/C Ratio 18.3 Ratio 09/05/2014 Comp Metabolic Qfz829 CALCIUM 8.9 mg/dL 09/05/2014 Comp Metabolic Ovq493 ALK PHOS 71 U/L 09/05/2014 Comp Metabolic Dnf245 AST(SGOT) 18 U/L 09/05/2014 Comp Metabolic Mgz589 ALT(SGPT) 29 U/L 09/05/2014 Comp Metabolic Kta025 BILI T 0.6 mg/dL 09/05/2014 Comp Metabolic Yac853 ALBUMIN 3.8 g/dL 09/05/2014 Comp Metabolic Squ802 TPRO 6.7 g/dL 09/05/2014 Comp Metabolic Ngg832 GLOB 2.9 g/dL 09/05/2014 Comp Metabolic Jaw325 A/G Ratio 1.3 Ratio 09/05/2014 Comp Metabolic Vca297 Osmo 271 mOsmo 09/05/2014 Total Psa Ord10 [...] Procedure Codes Date THER/PROPH/DIAG INJ SC/IM CPT-4: 80748 05/22/2018 ROCEPHIN, PER 250 MG CPT- 4: J0696 05/22/2018 THER/PROPH/DIAG INJ SC/IM CPT-4: 29415 04/20/2018 TRIAMCINOLONE ACET INJ NOS CPT-4: J3301 04/20/2018 URINALYSIS NONAUTO W/O SCOPE CPT-4: 10213 12/14/2017 URINALYSIS NONAUTO W/O SCOPE CPT-4: 10041 05/15/2017 URINALYSIS NONAUTO W/O SCOPE CPT-4: 33547 09/18/2015 ADMIN INFLUENZA VIRUS VAC CPT-4: G0008 12/31/2014 FLU VACC PRSV FREE INC ANTIG Formatting Model/CDA Sections, Assigned to/[place] [employer] CPT-4: 81962Gqtnqom 12/31/2014 URINALYSIS NONAUTO W/O SCOPE CPT-4: 28986 12/10/2014 URINALYSIS NONAUTO W/O SCOPE CPT-4: 89182 11/24/2014 ROCEPHIN, PER 250 MG CPT- 4: J0696 09/05/2014 THER/PROPH/DIAG INJ SC/IM CPT-4: 34062 09/05/2014 URINALYSIS NONAUTO W/O SCOPE CPT-4: 80186 09/04/2014 Vital Signs Date Vital 07/06/2018 Blood [...] 1: 138/60 Code: 8480-6 BMI: 37.2 Code: 55317-3 Heart Rate 1: 79 bpm Height: 5'9" SpO2: 91% Weight: 252 lbs 07/01/2016 Blood Pressure 1: 138/68 Code: 8480-6 BMI: 37.2 Code: 05736-8 Heart Rate 1: 69 bpm Height: 5'9" SpO2: 93% Weight: 252 lbs 05/05/2016 Blood Pressure 1: 136/78 Code: 8480-6 BMI: 39.3 Code: 95758-2 Heart Rate 1: 72 bpm Height: 5'9" SpO2: 97% Weight: 266 lbs 02/23/2016 Blood Pressure 1: 145/70 Code: 8480-6 BMI: 37.5 Code: 22948-5 Heart Rate 1: 80 bpm Height: 5'9" Weight: 254 lbs 09/16/2015 Blood Pressure 1: 140/62 Code: 8480-6 Heart Rate 1: 77 bpm Height: 5'9" SpO2: 93% Weight: 07/24/2015 Blood Pressure 1: 152/68 Code: 8480-6 BMI: 37.7 Code: 87760-2 Heart Rate 1: 73 bpm Height: 5'9" SpO2: 97% Weight: 255 lbs 03/20/2015 Blood Pressure 1: 146/74 Code: 8480-6 BMI: 38.1 Code: 26018-7 Heart Rate 1: 63 bpm Height: 5'9" Weight: 258 lbs 01/13/2015 Blood Pressure 1: 120/58 Code: 8480-6 Heart Rate 1: 52 bpm Height: 5'9" SpO2: 97% Temperature: 37.1 (C) / 98.7 (F) Weight: 12/05/2014 Blood Pressure 1: 134/54 Code: 8480-6 BMI: 36.3 Code: 59672-6 Heart Rate 1: 76 bpm Height: 5'9" SpO2: 93% Weight: 246 lbs 10/03/2014 Blood Pressure 1: 132/60 Code: 8480-6 Heart Rate 1: 76 bpm Height: SpO2: 95% Weight: 254 lbs 09/15/2014 Blood Pressure 1: 120/68 Code: 8480-6 BMI: 37.5 Code: 42139-7 Heart Rate 1: 76 bpm Height: 5'9" SpO2: 93% Weight: 254 lbs 09/05/2014 Blood Pressure 1: 110/50 Code: 8480-6 BMI: 37.4 Code: 09184-1 Heart Rate 1: 79 bpm Height: 5'9" SpO2: 96% Temperature: 36.3 (C) / 97.4 (F) Weight: 253 lbs 07/04/2014 Blood Pressure 1: 138/72 Code: 8480-6 BMI: 37.1 Code: 77158-5 Heart Rate 1: 72 bpm Height: 5'9" [...] discomfort 12/05/2014 occasional ache in chest- seeing canal equipment mechanic in [place]- doing heart cath in October [...] discomfort 10/03/2014 occasional ache in chest- seeing canal equipment mechanic in [place]- doing heart cath in October [...] data Encounters Encounter Performer Location Codes Date ([id number]) [id number] EST. PATIENT, LEVEL III Diagnosis: Shortness of breath[ICD10: R06.02] Diagnosis: Interstitial pulmonary disease, unspecified[ICD10: J84.9] Kavya Aburto MD, [facility] CPT-4: 50504 07/06/2018 02685 EST. 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 PATIENT, LEVEL III Diagnosis: Acute on chronic combined systolic (congestive) and diastolic (congestive) heart failure[ICD10: I50.43] Diagnosis: Pneumonia due to other specified bacteria[ICD10: J15.8] Mary Aburto MD, [facility] CPT-4: 76663 05/22/2018 05825 EST. PATIENT, LEVEL III Diagnosis: Other acute sinusitis[ICD10: J01.80] Diagnosis: Other allergic rhinitis[ICD10: J30.89] Diagnosis: Cough[ICD10: R05] Mary Aburto MD, [facility] CPT-4: 14447 04/20/2018 ([id number]) 66246 EST. PATIENT, LEVEL IV Diagnosis: Essential (primary) hypertension[ICD10: I10] Diagnosis: Other iron deficiency anemias[ICD10: D50.8] Diagnosis: Weakness[ICD10: R53.1] Darleen Aburto MD, [facility] CPT-4: 92790 11/14/2017 39574 EST. PATIENT, LEVEL IV Diagnosis: Other lesions of oral mucosa[ICD10: K13.79] Diagnosis: Candidal stomatitis[ICD10: B37.0] Diagnosis: Generalized anxiety disorder[ICD10: F41.1] Diagnosis: Major depressive disorder, single episode, moderate[ICD10: F32.1] Mary Aburto MD, [facility] CPT-4: 37495 08/15/2017 14465 EST. PATIENT, LEVEL III Diagnosis: Generalized anxiety disorder[ICD10: F41.1] Diagnosis: Cauda equina syndrome[ICD10: G83.4] Diagnosis: Major depressive disorder, single episode, moderate[ICD10: F32.1] Mary Aburto MD, [facility] CPT-4: 10672 06/29/2017 35320 EST. PATIENT, LEVEL IV Diagnosis: Dysuria[ICD10: R30.0] Diagnosis: Other malaise[ICD10: R53.81] Diagnosis: Cauda equina syndrome[ICD10: G83.4] Diagnosis: Weakness[ICD10: R53.1] Mary Aburto MD, [facility] CPT-4: 43282 03/30/2017 ([id number]) 35339 EST. PATIENT, LEVEL III Diagnosis: Cough[ICD10: R05] Diagnosis: Enterocolitis due to Clostridium difficile[ICD10: A04.7] Kavya Aburto MD, [facility] CPT-4: 27877 10/07/2016 ([id number]) 54785 EST. 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 PATIENT, LEVEL III Diagnosis: Cauda equina syndrome[ICD10: G83.4] Diagnosis: Irritable bowel syndrome with diarrhea[ICD10: K58.0] Mary Aburto MD, [facility] CPT-4: 53351 05/05/2016 81989 EST. PATIENT, LEVEL III Diagnosis: Pain in right shoulder[ICD10: M25.511] Diagnosis: Weakness[ICD10: R53.1] Diagnosis: Shortness of breath[ICD10: R06.02] Mary Aburto MD, [facility] CPT-4: 60385 02/23/2016 67702 EST. PATIENT, LEVEL III Diagnosis: Essential (primary) hypertension[ICD10: I10] Diagnosis: Other insomnia[ICD10: G47.09] Diagnosis: Irritable bowel syndrome with diarrhea[ICD10: K58.0] Diagnosis: Shortness of breath[ICD10: R06.02] Diagnosis: Weakness[ICD10: R53.1] Mary Aburto MD, [facility] CPT-4: 64728 09/16/2015 84745 EST. PATIENT, LEVEL III Diagnosis: Diarrhea, unspecified[ICD10: R19.7] Diagnosis: Nausea[ICD10: R11.0] Mary Aburto MD, [facility] CPT-4: 45362 07/24/2015 47617 EST. PATIENT, LEVEL IV Diagnosis: Other iron deficiency anemias[ICD10: D50.8] Diagnosis: Rash and other nonspecific skin eruption[ICD10: R21] Diagnosis: Cauda equina syndrome[ICD10: G83.4] Diagnosis: Essential (primary) hypertension[ICD10: I10] Diagnosis: Other pruritus[ICD10: L29.8] Diagnosis: Shortness of breath[ICD10: R06.02] Mary Aburto MD, [facility] CPT-4: 71699 03/20/2015 86333 EST. PATIENT, LEVEL IV Diagnosis: Urinary tract infection, site not specified[ICD10: N39.0] Diagnosis: Umbilical hernia without obstruction or gangrene[ICD10: K42.9] Diagnosis: Cauda equina syndrome[ICD10: G83.4] Mary Aburto MD, [facility] CPT- 4: 24557 01/13/2015 ([id number]) 78575 EST. PATIENT, LEVEL IV Diagnosis: Iron deficiency anemia, unspecified[ICD10: D50.9] Diagnosis: Essential (primary) hypertension[ICD10: I10] Diagnosis: Hematuria, unspecified[ICD10: R31.9] Kavya Aburto MD, [facility] CPT-4: 56884 12/05/2014 ([id number]) 47743 EST. PATIENT, LEVEL IV Diagnosis: ESSENTIAL HYPERTENSION[ICD9: 401.9] Diagnosis: COPD (chronic obstructive pulmonary disease)[ICD9: 496] Diagnosis: ANEMIA[ICD9: 285.9] Diagnosis: SHORTNESS OF BREATH[ICD9: 786.05] Kavya Aburto MD, [facility] CPT- 4: 98089 10/03/2014 ([id number]) 63749 EST. PATIENT, LEVEL IV Diagnosis: ESSENTIAL HYPERTENSION[ICD9: 401.9] Diagnosis: ANEMIA[ICD9: 285.9] Diagnosis: MALAISE AND FATIGUE[ICD9: 780.79] [facility] CPT- 4: 75674 09/15/2014 ([id number]) 97850 EST. PATIENT, LEVEL III Diagnosis: UTI[ICD9: 599.0] Diagnosis: Chronic back pain[ICD9: 724.5] [facility] CPT-4: 27732 09/05/2014 ([id number]) OFFICE VISIT, NEW - LEVEL 4 Diagnosis: ESSENTIAL HYPERTENSION[ICD9: 401.9] Diagnosis: THRUSH[ICD9: 112.0] Diagnosis: Hyperlipidemia[ICD9: 272.4] Diagnosis: COPD (chronic obstructive pulmonary disease)[ICD9: 496] Diagnosis: Cauda equina syndrome[ICD9: 344.60] Diagnosis: History of prostate cancer[ICD9: V10.46] [facility] CPT-4: 45535 07/04/2014 Plan of Care Planned Activity Notes [...] Summary Completed 07/06/2018 Appointment: Mary Alan WPtel: [address] [place], [place] [id number] (30 min) Complex 07/05/2018 Visit Plan: CHF [...] from 05/22 Pending 05/24/2018 Visit Plan: Dr. Aburto in to evaluate [...] O2. 05/22/2018 [facility]ment[phone] ([facility] 05/22/2018 Patient Education: Patient [...] allergy spray. 04/20/2018 Appointment: Mary Alan WPtel: [facility] (15 min) Moderate 04/20/2018 Patient Education: Patient Medication Summary Completed 04/20/2018 Appointment: Lab Draw 12/14/2017 Patient Education: Patient Medication Summary Completed 12/14/2017 Appointment: Darleen Aburto WPtel: [address] [place], [place] [id number] (15 min) Moderate 11/28/2017 Visit Plan: Hypertension [...] culture report. 11/14/2017 Appointment: Darleen Aburto WPtel: [facility] [facility] (15 min) Moderate 11/14/2017 Patient Education: Patient [...] this patient. 08/15/2017 Appointment: Mary Alan WPtel: [facility]5 [facility] (30 min) Complex 08/15/2017 Patient Education: Patient Medication Summary Completed 08/15/2017 Appointment: Mary Alan WPtel: [phone] [facility] (15 min) Moderate 08/08/2017 Appointment: Mary Alan WPtel: [facility] (15 min) Moderate 08/03/2017 Visit Plan: Cauda [...] not resolve 10/07/2016 Appointment: Kavya Subramanian WPtel: [phone] [phone] [place] (30 min) Complex 10/07/2016 Patient Education: Patient Medication Summary Completed 10/07/2016 Patient Education: Obesity Completed 10/07/2016 Visit Plan: Cauda equina-chronic back pain-generalized weakness- right shoulder pain/weakness-patient to contact [facility] [place] for mobility paperwork-will ask PT to do a mobility exam through [facility] Drug induced constipation-rx for movantik. 07/01/2016 Visit Plan: Cauda equina-chronic back pain-generalized weakness- bilateral shoulder pain/weakness-OA knees-patient to contact [facility] [place] for mobility paperwork-will ask PT to do a mobility exam through [facility]. Patient is non ambulatory due to cauda [...] details. Drug induced constipation-rx for movantik. 07/01/2016 Appointment: [phone] [phone] (30 min) Complex 07/01/2016 Patient Education: Patient [...] surgery. 05/05/2016 Appointment: [phone] [facility] 05/05/2016 Patient Education: Patient Medication [...] power chair - will have pt contact Juan godoy. 02/23/2016 Appointment: [phone] [facility] [place] (30 min) Complex 02/23/2016 Patient Education: Patient Medication Summary Completed 02/23/2016 Appointment: [phone] [facility] [place] (30 min) Complex 02/19/2016 Appointment: [phone] [place] (15 min) Moderate 10/14/2015 Appointment: Lab [...] having loose bowel movements. Keep appointment with Cornetist Make an appointment with canal equipment mechanic - to follow up on shortness of breath. Weakness - pt is to contact Juan Godoy in [facility] when he is [...] improved. 07/24/2015 Appointment: [facility]ramanian [phone] [phone] (30 min) Complex 07/24/2015 Patient Education: Patient [...] hypertension. 09/15/2014 Appointment: [facility]el[phone] [facility] (15 min) Moderate 09/15/2014 Patient Education: Patient [...] equina-increased incontinence of bowels-recommend follow up with a r specialist-will discuss repeat MRI with Dr Aburto-keep [...] Patient Education: Hypertension Completed 07/04/2014 Instructions Comment Nikolai Montalvo to do PT evaluation for motorized wheelchair through [facility] [place] . Cauda equina-chronic back pain-generalized weakness-right shoulder pain/weakness- patient to contact [place] [place] for mobility paperwork-will ask PT to do a mobility exam through [facility] Drug induced constipation-rx for movantik. [employer] [place] to do PT evaluation for motorized wheelchair through [facility] [place] . Cauda equina-chronic back pain-generalized weakness-bilateral shoulder pain/weakness- OA knees-patient to contact [place] [place] for mobility paperwork-will ask PT to do a mobility exam through [facility] [employer]. Patient is non ambulatory due to cauda [...] assessment details. Drug induced constipation-rx for movantik. . Dr. Aburto in to evaluate pt [...] per [place], will order continuous home O2. will give you a rocephin shot today [...] [place], will order continuous home O2. . Urinary Tract Infection-discussed natural and expected [...] incontinence of bowels- recommend follow up with a r specialist-will discuss repeat MRI with Dr Aburto-keep follow up appointment with Dr Aburto in 10 days . Rash - pt states that he [...] - will give another anoro sample . Hypertension - well controlled - continue [...] assure normal liver response to medications. . Gastroenteritis - Pt is to get [...] as tolerated. Call if symptoms not improved. will start you on augmentin - check a urine sample 48 hours after it is finished steroid shot today and steroid pill (start tomorrow) let us know what your canal equipment mechanic says at your appointment chest x-ray if [...] spray in the nasal steroid allergy spray. RECOMMEND CHEST XRAY AND SPUTUM CUTURE IF SYMPTOMS PERSIST . Cough-suspect virus-patient to monitor over the weekend-call Monday if symptoms persist and we will do a chest xray and sputum culture Cdiff-treat with flagyl as directed-call if symptoms do not resolve . Pt complains of abdominal pain, states [...] pain. Will check UA, CBC, CMP. . Right shoulder pain - pt states [...] power chair - will have pt contact Juan [facility]. . Cauda Equina, weakness, gait instability - [...] call if symptoms do not improve. . Hypertension - well controlled - continue [...] care - waiting on culture report. . Thrush/oral pain- swab obtained - Pt [...] been appropriately prescribed for this patient. . Thrush/oral pain- swab obtained - Pt [...] Peng 4. Make an appointment with your canal equipment mechanic - to follow up on shortness of breath. 5. Call us when you here about the mobility paperwork and we will fill out the paperwork. [facility] in [facility] . Hypertension - The patient has [...] having loose bowel movements. Keep appointment with Cornetist Make an appointment with canal equipment mechanic - to follow up on shortness of breath. Weakness - pt is to contact Juan Godoy in [facility] when he is [...] change in blood pressure readings at home. . Interstitial lung disease vs atypical pneumonia -patient's symptoms initially improved with antibiotics but shortness of breath persists - he has an appt with Dr Hutton on Monday for further evaluation -continue to use oxygen as needed -breathing treatments as directed-call with any questions or concerns-patient verbalized understanding of plan. Decrease effexor to 2 pills daily x 3 days, then 1 pill daily x 1 week and start Cymbalta daily x 1 week, then stop Effexor and increase Cymbalta to 2 pills daily. Will consult Tiffany Bullard [place] PT. Cauda Equina - stable - continue [...]
[2018-07-19] MEDS ORDERED: fentaNYL INJECTION 100 MCG/2 ML AMP IVP ONE (08:30)
[2018-07-19] MEDS ORDERED: MIDAZOLAM 2 MG/2 ML (VERSED) VIAL IVP ONE (08:30)
--- OUTSIDE RECORDS SUMMARY | 2018-07-19 08:33 | XMS REPORT | CCD ---
Author Author Kavya Subramanian Organization [facility] Address [address] [place] [address] Phone Care Team Providers Care Grapple Crew Leader Name Role Phone PP Unavailable CCM Unavailable Summary Purpose Interface Exchange Insurance Providers Payer name Policy type / Coverage type Covered democrat ID Effective Begin Date Effective End Date WPS Medicare Part B Commercial Insurance [id number] Unknown Unknown [employer]ALTH[employer]ICE Commercial Insurance [id number] Unknown Unknown Family history Father Diagnosis Age At Onset Coronary Artery Disease Unknown Mother Diagnosis Age At Onset Arthritis Unknown Sister Diagnosis Age At Onset Alzheimer's Disease Unknown Social History Social History Element Codes Description Effective Dates Marital status Unknown 07/04/2014 Number of children Unknown 2 07/04/2014 Living arrangements Unknown House 07/04/[address]: 9627979 Quit over 10 years ago 07/04/2014 Alcohol history Unknown occasionally drinks alcohol 07/04/2014 Frequency of drinks SNOMED CT: 021334392 Drinks rarely 07/04/2014 Allergies, Adverse Reactions, Alerts Substance Reaction Codes Entered Date Inactivated Date Status * NO KNOWN FOOD ALLERGIES Unknown 07/04/2014 No Inactive Date Active Iodine rash, pruritis, RxNorm: 5933 03/04/2015 No Inactive Date Active tramadol pruritis RxNorm: 10000 07/04/2014 No Inactive Date Active Past Medical [...] Instructions Cymbalta 30 mg capsule,delayed release RxNorm: 913947 2 Capsule(s) PO daily 07/03/2018 01/28/2019 Active oxycodone 5 mg tablet RxNorm: 9516191 4 Tablet(s) PO daily 06/27/2018 09/09/2018 Active doxycycline hyclate 100 mg tablet RxNorm: 6669663 1 Tablet(s) PO BID 06/01/2018 06/10/2018 Inactive doxycycline hyclate 100 mg tablet RxNorm: 8119517 1 Tablet(s) PO BID 06/01/2018 05/31/2018 Inactive Zithromax Z-Win 250 mg tablet RxNorm: 444456 Tablet(s) PO UD 05/22/2018 No Stop Date Active albuterol sulfate 2.5 mg/3 mL (0.083 %) solution for nebulization RxNorm: 774233 3 Milliliter(s) INH UD 05/22/2018 No Stop Date Active cefdinir 300 mg capsule RxNorm: 519024 1 Capsule(s) PO BID 05/22/2018 05/31/2018 Inactive ceftriaxone 500 mg solution for injection RxNorm: 1043311 2 Milliliter(s) Inj 05/22/2018 05/22/2018 Inactive diclofenac sodium 75 mg tablet,delayed release RxNorm: 044216 1 TABLET(S) PO BID 05/14/2018 02/07/2019 Active gabapentin 600 mg tablet RxNorm: 124557 TABLET(S) TAKE 1 TABLET BY MOUTH TWICE DAILY 04/23/2018 04/17/2019 Active prednisone 20 mg tablet RxNorm: 543470 2 Tablet(s) PO daily 04/20/2018 04/24/2018 Inactive Kenalog 40 mg/mL suspension for injection RxNorm: 0315513 Milliliter(s) Inj 04/20/2018 04/20/2018 Inactive Augmentin 500 mg-125 mg tablet RxNorm: 223930 1 Tablet(s) PO TID 04/20/2018 04/26/2018 Inactive oxycodone 5 mg tablet RxNorm: 6482681 4 Tablet(s) PO daily 04/12/2018 06/25/2018 Inactive potassium chloride ER 20 mEq tablet,extended release RxNorm: 374527 1 TABLET(S) PO DAILY 03/09/2018 03/03/2019 Active oxycodone 5 mg tablet RxNorm: 9246232 4 Tablet(s) PO daily 01/18/2018 04/02/2018 Inactive Augmentin 500 mg-125 mg tablet RxNorm: 716083 1 Tablet(s) PO TID 12/14/2017 12/23/2017 Inactive take probiotic bid x 10 days pantoprazole 40 mg tablet,delayed release RxNorm: 768228 TAKE 1 TABLET BY MOUTH DAILY 12/11/2017 12/05/2018 Active Augmentin 500 mg-125 mg tablet RxNorm: 074233 1 Tablet(s) PO TID 11/17/2017 11/22/2017 Inactive take probiotic bid x 7 days lisinopril 40 mg tablet RxNorm: 815012 TAKE 1 TABLET BY MOUTH DAILY 11/06/2017 08/02/2018 Active oxycodone 5 mg tablet RxNorm: 1484515 4 Tablet(s) PO daily 10/16/2017 12/29/2017 Inactive Cymbalta 30 mg capsule,delayed release RxNorm: 201203 2 Capsule(s) PO daily 08/17/2017 02/12/2018 Inactive Zoloft 25 mg tablet RxNorm: 474588 1 TABLET(S) PO DAILY X 5 DAYS THEN INCREASE TO 50MG DAILY 08/16/2017 No Stop Date Active Cymbalta 30 mg capsule,delayed release RxNorm: 360604 1 Capsule(s) PO 1 CAPSULE(S) PO DAILY X 1 WEEK, THEN INCREASE TO 2 DAILY 08/15/2017 08/16/2017 Inactive Patient requests 90 days supply diclofenac sodium 75 mg tablet,delayed release RxNorm: 588861 1 TABLET(S) PO BID 08/14/2017 05/10/2018 Inactive oxycodone 5 mg tablet RxNorm: 1722678 4 Tablet(s) PO daily 08/01/2017 10/14/2017 Inactive valacyclovir 1 gram tablet RxNorm: 377010 1 Tablet(s) PO TID 07/12/2017 07/11/2017 Inactive Zoloft 50 mg tablet RxNorm: 801046 1 Tablet(s) PO daily 07/12/2017 08/01/2017 Inactive valacyclovir 1 gram tablet RxNorm: 811951 1 Tablet(s) PO TID 07/12/2017 07/18/2017 Inactive Zoloft 50 mg tablet RxNorm: 721256 1 Tablet(s) PO daily 07/12/2017 07/11/2017 Inactive Zoloft 25 mg tablet RxNorm: 833256 1 Tablet(s) PO daily x 5 days then increase to 50mg daily 07/11/2017 07/11/2017 Inactive Cymbalta 30 mg capsule,delayed release RxNorm: 390077 1 Capsule(s) PO daily x 1 week, then increase to 2 daily 06/30/2017 06/29/2017 Inactive Cymbalta 30 mg capsule,delayed release RxNorm: 455929 1 CAPSULE(S) PO DAILY X 1 WEEK, THEN INCREASE TO 2 DAILY 06/30/2017 07/04/2017 Inactive Patient requests 90 days supply Augmentin 875 mg-125 mg tablet RxNorm: 892641 1 Tablet(s) PO BID 05/22/2017 05/28/2017 Inactive Probiotic QID while on antibiotics Bactrim DS 800 mg-160 mg tablet RxNorm: 535837 1 Tablet(s) PO BID 05/22/2017 05/21/2017 Inactive Probiotic QID while on antibiotics Bactrim DS 800 mg-160 mg tablet RxNorm: 931218 1 Tablet(s) PO BID 05/22/2017 05/28/2017 Inactive Probiotic QID while on antibiotics Augmentin 875 mg-125 mg tablet RxNorm: 609464 1 Tablet(s) PO BID 05/22/2017 05/21/2017 Inactive Probiotic QID while on antibiotics Cipro 500 mg tablet RxNorm: 639957 1 Tablet(s) PO BID 04/21/2017 04/30/2017 Inactive Take probiotic while on ABT Cipro 500 mg tablet RxNorm: 695123 1 Tablet(s) PO BID 04/21/2017 04/20/2017 Inactive Diflucan 150 mg tablet RxNorm: 697562 1 Tablet(s) PO daily 04/19/2017 11/13/2017 Inactive Diflucan 150 mg tablet RxNorm: 231529 1 Tablet(s) PO daily 04/19/2017 04/18/2017 Inactive oxycodone 5 mg tablet RxNorm: 6610870 4 Tablet(s) PO daily 04/17/2017 06/30/2017 Inactive gabapentin 600 mg tablet RxNorm: 179965 TABLET(S) TAKE 1 TABLET BY MOUTH TWICE DAILY 04/14/2017 04/08/2018 Inactive Rocephin 1 gram solution for injection RxNorm: 571424 1 Inj daily 04/05/2017 04/11/2017 Inactive Rocephin 1 gram solution for injection RxNorm: 262343 1 Inj daily 04/04/2017 04/04/2017 Inactive lidocaine (PF) 10 mg/mL (1 %) injection solution RxNorm: 9560665 1 Milliliter(s) Inj daily 04/04/2017 04/10/2017 Inactive Use to administer rocephin lidocaine (PF) 10 mg/mL (1 %) injection solution RxNorm: 3123801 1 Milliliter(s) Inj daily 04/04/2017 04/03/2017 Inactive Use to administer rocephin Rocephin 1 gram solution for injection RxNorm: 848504 1 Inj daily 04/04/2017 04/03/2017 Inactive Augmentin 500 mg-125 mg tablet RxNorm: 286109 1 Tablet(s) PO TID 03/31/2017 04/03/2017 Inactive Augmentin 500 mg-125 mg tablet RxNorm: 234746 1 Tablet(s) PO TID 03/31/2017 03/30/2017 Inactive Effexor XR 75 mg capsule,extended release RxNorm: 987975 TAKE 3 CAPSULES BY MOUTH EVERY MORNING 03/24/2017 11/13/2017 Inactive potassium chloride ER 20 mEq tablet,extended release RxNorm: 020027 1 TABLET(S) PO DAILY 03/13/2017 03/07/2018 Inactive lisinopril 40 mg tablet RxNorm: 385779 TAKE 1 TABLET BY MOUTH DAILY 02/06/2017 11/02/2017 Inactive pantoprazole 40 mg tablet,delayed release RxNorm: 024309 TAKE 1 TABLET BY MOUTH DAILY 12/19/2016 12/10/2017 Inactive oxycodone 5 mg tablet RxNorm: 1840746 4 Tablet(s) PO daily 12/19/2016 03/03/2017 Inactive diclofenac sodium 75 mg tablet,delayed release RxNorm: 948723 1 TABLET(S) PO BID 11/17/2016 08/13/2017 Inactive gabapentin 600 mg tablet RxNorm: 034124 TABLET(S) TAKE 1 TABLET BY MOUTH TWICE DAILY 10/14/2016 04/11/2017 Inactive Flagyl 500 mg tablet RxNorm: 841533 1 Tablet(s) PO TID 10/07/2016 10/16/2016 Inactive oxycodone 5 mg tablet RxNorm: 1841576 4 Tablet(s) PO daily 10/03/2016 12/16/2016 Inactive Effexor XR 75 mg capsule,extended release RxNorm: 075990 TAKE 3 CAPSULES BY MOUTH EVERY MORNING 09/22/2016 11/20/2016 Inactive Patient requests 90 days supply lisinopril 40 mg tablet RxNorm: 860500 TAKE 1 TABLET BY MOUTH DAILY 08/01/2016 01/27/2017 Inactive Effexor XR 75 mg capsule,extended release RxNorm: 826855 TAKE 3 CAPSULES BY MOUTH EVERY MORNING 07/21/2016 09/21/2016 Inactive oxycodone 5 mg tablet RxNorm: 3457285 4 Tablet(s) PO daily 07/11/2016 09/23/2016 Inactive Movantik 25 mg tablet RxNorm: 4708104 1 Tablet(s) PO daily 07/01/2016 11/13/2017 Inactive potassium chloride ER 20 mEq tablet,extended release RxNorm: 436886 1 TABLET(S) PO DAILY 06/14/2016 03/10/2017 Inactive Flagyl 500 mg tablet RxNorm: 203359 1 Tablet(s) PO TID 06/03/2016 06/12/2016 Inactive Flagyl 500 mg tablet RxNorm: 218032 1 Tablet(s) PO TID 06/03/2016 06/02/2016 Inactive oxycodone 5 mg tablet RxNorm: 8628834 4 Tablet(s) PO daily 04/27/2016 07/10/2016 Inactive Tamiflu 75 mg capsule RxNorm: 560399 1 Capsule(s) PO daily 04/19/2016 04/28/2016 Inactive Tamiflu 75 mg capsule RxNorm: 629426 1 Capsule(s) PO daily 04/19/2016 04/18/2016 Inactive Effexor XR 75 mg capsule,extended release RxNorm: 213663 TAKE 3 CAPSULES BY MOUTH EVERY MORNING 02/18/2016 04/17/2016 Inactive diclofenac sodium 75 mg tablet,delayed release RxNorm: 350581 1 TABLET(S) PO BID 02/18/2016 11/13/2016 Inactive Effexor XR 75 mg capsule,extended release RxNorm: 416478 Capsule(s) TAKE 3 CAPSULES BY MOUTH EVERY MORNING 02/17/2016 08/14/2016 Inactive oxycodone 5 mg tablet RxNorm: 3406713 4 Tablet(s) PO daily 02/04/2016 04/26/2016 Inactive clopidogrel 75 mg tablet RxNorm: 424154 1 TABLET(S) PO QAM 02/01/2016 01/25/2017 Inactive gabapentin 600 mg tablet RxNorm: 596934 Tablet(s) TAKE 1 TABLET BY MOUTH TWICE DAILY 02/01/2016 10/13/2016 Inactive Effexor XR 75 mg capsule,extended release RxNorm: 724826 TAKE 3 CAPSULES BY MOUTH EVERY MORNING 01/11/2016 02/09/2016 Inactive pantoprazole 40 mg tablet,delayed release RxNorm: 434486 TAKE 1 TABLET BY MOUTH DAILY 12/22/2015 12/15/2016 Inactive Effexor XR 75 mg capsule,extended release RxNorm: 627705 TAKE 3 CAPSULES BY MOUTH EVERY MORNING 11/16/2015 01/14/2016 Inactive lisinopril 40 mg tablet RxNorm: 399073 TAKE 1 TABLET BY MOUTH DAILY 11/05/2015 07/31/2016 Inactive Effexor XR 75 mg capsule,extended release RxNorm: 087429 TAKE 3 CAPSULES BY MOUTH EVERY MORNING 09/22/2015 11/20/2015 Inactive Augmentin 500 mg-125 mg tablet RxNorm: 449980 1 Tablet(s) PO TID 09/18/2015 09/24/2015 Inactive Anoro Ellipta 62.5 mcg-25 mcg/actuation powder for inhalation RxNorm: 9040663 1 INH daily 08/20/2015 02/15/2016 Inactive Anoro Ellipta 62.5 mcg-25 mcg/actuation powder for inhalation RxNorm: 1929992 1 INH DAILY 08/20/2015 11/13/2017 Inactive lisinopril 40 mg tablet RxNorm: 945500 TAKE 1 TABLET BY MOUTH DAILY 08/10/2015 11/04/2015 Inactive gabapentin 600 mg tablet RxNorm: 860956 TAKE 1 TABLET BY MOUTH TWICE DAILY 08/10/2015 01/31/2016 Inactive terazosin 2 mg capsule RxNorm: 345078 TAKE ONE CAPSULE BY MOUTH EVERY DAY 07/27/2015 08/29/2016 Inactive hyoscyamine 0.125 mg sublingual tablet RxNorm: 5240267 1 Tablet(s) SL TID as needed 07/24/2015 08/02/2015 Inactive metronidazole 500 mg tablet RxNorm: 073103 1 Tablet(s) PO TID 07/24/2015 07/30/2015 Inactive Effexor XR 75 mg capsule,extended release RxNorm: 529543 TAKE 3 CAPSULES BY MOUTH EVERY MORNING 07/23/2015 09/20/2015 Inactive oxycodone 5 mg tablet RxNorm: 4414663 4 Tablet(s) PO daily 06/26/2015 02/03/2016 Inactive potassium chloride ER 20 mEq tablet,extended release RxNorm: 915811 1 Tablet(s) PO daily 06/25/2015 06/13/2016 Inactive oxycodone 5 mg tablet RxNorm: 0123246 4 Tablet(s) PO daily 04/17/2015 06/25/2015 Inactive rx written Anoro Ellipta 62.5 mcg-25 mcg/actuation powder for inhalation RxNorm: 7607265 1 INH daily 04/17/2015 08/19/2015 Inactive potassium chloride ER 20 mEq tablet,extended release RxNorm: 164214 1 Tablet(s) PO daily 03/23/2015 06/24/2015 Inactive triamcinolone acetonide 0.1 % topical cream RxNorm: 6250787 1 Application TOP BID 03/20/2015 No Stop Date Active carvedilol 12.5 mg tablet RxNorm: 813819 1 TABLET(S) PO BID 02/23/2015 08/21/2015 Inactive diclofenac sodium 75 mg tablet,delayed release RxNorm: 276040 1 Tablet(s) PO BID 02/18/2015 02/12/2016 Inactive carvedilol 12.5 mg tablet RxNorm: 535252 1 Tablet(s) PO BID 02/17/2015 02/11/2016 Inactive furosemide 40 mg tablet RxNorm: 655402 1 Tablet(s) PO daily 02/17/2015 02/11/2016 Inactive lisinopril 40 mg tablet RxNorm: 653225 TAKE 1 TABLET BY MOUTH DAILY 02/16/2015 08/09/2015 Inactive ceftriaxone 1 gram solution for injection RxNorm: 8059035 1 Gram(s) Inj daily mix with lidocaine 01/14/2015 01/17/2015 Inactive please supply 4 bottles of 1gram rocephin IM with 1 bottle of lidocaine 1% for home health to administer to pt starting 01/15 ceftriaxone 1 gram solution for injection RxNorm: 6725547 1 Gram(s) Inj daily 01/14/2015 01/13/2015 Inactive please supply 4 bottles of 1gram rocephin IM with 1 bottle of lidocaine 1% for home health to administer to pt starting 01/15 Augmentin 500 mg-125 mg tablet RxNorm: 846159 1 Tablet(s) PO BID 01/13/2015 01/22/2015 Inactive Keflex 500 mg capsule RxNorm: 141052 1 Capsule(s) PO TID 12/12/2014 12/11/2014 Inactive Keflex 500 mg capsule RxNorm: 971927 1 Capsule(s) PO TID 12/12/2014 12/17/2014 Inactive Augmentin 500 mg-125 mg tablet RxNorm: 659200 1 Tablet(s) PO BID 11/28/2014 12/02/2014 Inactive Augmentin 500 mg-125 mg tablet RxNorm: 589924 1 Tablet(s) PO BID 11/28/2014 11/27/2014 Inactive Cipro 500 mg tablet RxNorm: 174692 1 Tablet(s) PO BID 11/24/2014 11/27/2014 Inactive gabapentin 600 mg tablet RxNorm: 367465 1 Tablet(s) PO BID 11/17/2014 08/13/2015 Inactive gabapentin 600 mg tablet RxNorm: 291015 1 Tablet(s) PO BID 11/17/2014 11/16/2014 Inactive oxycodone 5 mg tablet RxNorm: 6177606 4 Tablet(s) PO daily 11/07/2014 02/04/2015 Inactive rx written Effexor XR 75 mg capsule,extended release RxNorm: 407546 3 Capsule(s) 225 PO QAM 11/05/2014 03/04/2015 Inactive clopidogrel 75 mg tablet RxNorm: 224196 1 Tablet(s) PO QAM 11/05/2014 01/28/2016 Inactive Effexor XR 75 mg capsule,extended release RxNorm: 552803 3 Capsule(s) 225 PO QAM 11/03/2014 11/04/2014 Inactive carvedilol 12.5 mg tablet RxNorm: 975095 1 Tablet(s) PO BID 10/28/2014 02/16/2015 Inactive Effexor XR 75 mg capsule,extended release RxNorm: 244594 3 Capsule(s) 225 PO QAM 10/28/2014 11/02/2014 Inactive Effexor XR 75 mg capsule,extended release RxNorm: 406679 3 Capsule(s) 225 PO QAM 10/28/2014 10/27/2014 Inactive carvedilol 12.5 mg tablet RxNorm: 287633 1 Tablet(s) PO BID 10/28/2014 10/27/2014 Inactive ceftriaxone 1 gram solution for injection RxNorm: 0203134 Inj 09/05/2014 09/05/2014 Inactive Cipro 500 mg tablet RxNorm: 221569 1 Tablet(s) PO BID 09/04/2014 09/03/2014 Inactive Cipro 500 mg tablet RxNorm: 454961 1 Tablet(s) PO BID 09/04/2014 09/10/2014 Inactive oxycodone 5 mg tablet RxNorm: 0093722 4 Tablet(s) PO daily 08/20/2014 11/06/2014 Inactive rx written lisinopril 40 mg tablet RxNorm: 801698 TAKE 1 TABLET BY MOUTH DAILY 08/18/2014 02/13/2015 Inactive nystatin 100,000 unit/mL oral suspension RxNorm: 778692 5 Milliliter(s) PO QID 07/04/2014 07/13/2014 Inactive [SAVINGS FOR NON-COVERED DRUGS -- [id number], PCN: [id number], Group: [id number], ID# [id number], Questions: . THIS IS NOT INSURANCE.] WelChol 3.75 gram oral powder packet RxNorm: 091799 1 PO BID No Start Date Active amlodipine 10 mg tablet RxNorm: 244396 1 Tablet(s) PO QAM No Start Date Active One A Day oral RxNorm: 00218 oral No Start Date Active Vitamin D2 400 unit capsule RxNorm: 775989 1 Capsule(s) PO daily No Start Date Active aspirin 81 mg tablet,delayed release RxNorm: 709278 1 Tablet(s) PO daily No Start Date Active melatonin 5 mg disintegrating tablet RxNorm: 1932993 1 Tablet(s) PO QHS No Start Date Active Miralax 17 gram/dose oral powder RxNorm: 917683 17 Gram(s) PO daily in prune juice No Start Date Active clonidine HCl 0.1 mg tablet RxNorm: 415960 1 Tablet(s) PO QHS No Start Date Active hydrochlorothiazide oral RxNorm: 5487 oral No Start Date Active Lasix oral RxNorm: 483397 oral No Start Date 02/17/2015 Inactive potassium chloride 20 meq RxNorm: 844436 PO daily No Start Date 03/22/2015 Inactive Zoloft 25 mg tablet RxNorm: 555469 1 Tablet(s) PO daily x 5 days then increase to 50mg daily No Start Date 07/10/2017 Inactive oxycodone 5 mg tablet RxNorm: 4714570 3-4 Tablet(s) PO QHS No Start Date 08/19/2014 Inactive terazosin 2 mg capsule RxNorm: 715378 1 Capsule(s) PO daily No Start Date 07/26/2015 Inactive Effexor XR 75 mg capsule,extended release RxNorm: 334044 3 Capsule(s) 225 PO QAM No Start Date 10/27/2014 Inactive gabapentin 600 mg tablet RxNorm: 005660 1 Tablet(s) PO BID No Start Date 11/16/2014 Inactive pantoprazole 40 mg tablet,delayed release RxNorm: 351161 oral No Start Date 12/21/2015 Inactive Anoro Ellipta 62.5 mcg-25 mcg/actuation powder for inhalation RxNorm: 3960530 1 INH daily No Start Date 04/16/2015 Inactive diclofenac sodium 75 mg tablet,delayed release RxNorm: 551113 1 Tablet(s) PO BID No Start Date 02/17/2015 Inactive clopidogrel 75 mg tablet RxNorm: 874343 1 Tablet(s) PO QAM No Start Date 11/04/2014 Inactive lisinopril 40 mg tablet RxNorm: 985096 1 Tablet(s) PO daily No Start Date 08/17/2014 Inactive carvedilol 12.5 mg tablet RxNorm: 864116 1 Tablet(s) PO BID No Start Date 10/27/2014 Inactive Medication Administered Medication Codes Instructions Start Date Status ceftriaxone 500 mg solution for injection RxNorm: 4166811 2Milliliter 05/22/2018 No longer Active Kenalog 40 mg/mL suspension for injection RxNorm: 1201167 Milliliter 04/20/2018 No longer Active ceftriaxone 1 gram solution for injection RxNorm: 7887419 09/05/2014 No longer Active Immunizations Vaccine Codes [...] 20.6 % 05/22/2018 Cbc With Differential Ord2 Titus% 14.7 % 05/22/2018 Cbc With Differential Ord2 [...] 2.01 K/ul 05/22/2018 Cbc With Differential Ord2 Titus ABS# 1.4 K/ul 05/22/2018 Cbc With Differential Ord2 Eos ABS# 0.4 K/ul 05/22/2018 Cbc With Differential Ord2 Baso ABS# 0.0 K/ul 05/22/2018 Comp Metabolic Cas025 NA 136 mEq/L 05/22/2018 Comp Metabolic Pff493 K 4.7 mEq/L 05/22/2018 Comp Metabolic Fpo928 CL 104 mEq/L 05/22/2018 Comp Metabolic Vpc056 CO2 23.0 mEq/L 05/22/2018 Comp Metabolic Pwn558 ANION GAP 14 05/22/2018 Comp Metabolic Eon780 GLUCOSE 113 mg/dL 05/22/2018 Comp Metabolic Dwi670 Creat 1.6 mg/dL 05/22/2018 Comp Metabolic Gov464 eGFR 46 ml/min/1.73m2 05/22/2018 Comp Metabolic Bir196 BUN 21 mg/dL 05/22/2018 Comp Metabolic Pde226 B/C Ratio 13.5 Ratio 05/22/2018 Comp Metabolic Gpq475 CALCIUM 8.6 mg/dL 05/22/2018 Comp Metabolic Gac132 ALK PHOS 84 U/L 05/22/2018 Comp Metabolic Qwa393 AST(SGOT) 17 U/L 05/22/2018 Comp Metabolic Pvl434 ALT(SGPT) 22 U/L 05/22/2018 Comp Metabolic Yqc939 BILI T 0.5 mg/dL 05/22/2018 Comp Metabolic Img453 ALBUMIN 3.4 g/dL 05/22/2018 Comp Metabolic Vox135 TPRO 6.6 g/dL 05/22/2018 Comp Metabolic Cyx185 GLOB 3.2 g/dL 05/22/2018 Comp Metabolic Ube938 A/G Ratio 1.0 Ratio 05/22/2018 Comp Metabolic Pxe005 Osmo 276 mOsmo 05/22/2018 B Type Natriuretic Peptide Mir6539 B-[employer] 258.00 pg/ml 05/22/2018 Magnesium Ord90 Mag 2.3 mg/dL 05/22/2018 Urine Culture Ucult Complete >100,000 col/ml aerobic growth sent to ref lab 12/15/2017 Lipid Ord30 CHOL 128 mg/dL 11/14/2017 Lipid Ord30 HDL 24.0 mg/dl 11/14/2017 Lipid Ord30 TRIG 206 mg/dL 11/14/2017 Lipid Ord30 LDL 63 mg/dL 11/14/2017 Lipid Ord30 C/HDL 5.3 Ratio 11/14/2017 Tsh Ord6 TSH (3rd IS) 3.24 uIU/mL 11/14/2017 Comp Metabolic Nzj768 NA 137 mEq/L 11/14/2017 Comp Metabolic Gfm146 K 4.0 mEq/L 11/14/2017 Comp Metabolic Nmm468 CL 104 mEq/L 11/14/2017 Comp Metabolic Lit001 CO2 23.0 mEq/L 11/14/2017 Comp Metabolic Erl916 ANION GAP 14 11/14/2017 Comp Metabolic Jwm737 GLUCOSE 101 mg/dL 11/14/2017 Comp Metabolic Aox162 Creat 1.1 mg/dL 11/14/2017 Comp Metabolic Ojs963 eGFR 67 ml/min/1.73m2 11/14/2017 Comp Metabolic Oow959 BUN 18 mg/dL 11/14/2017 Comp Metabolic Jmu604 B/C Ratio 15.9 Ratio 11/14/2017 Comp Metabolic Xwv885 CALCIUM 9.0 mg/dL 11/14/2017 Comp Metabolic Qbz639 ALK PHOS 81 U/L 11/14/2017 Comp Metabolic Jtb516 AST(SGOT) 19 U/L 11/14/2017 Comp Metabolic Tpj191 ALT(SGPT) 18 U/L 11/14/2017 Comp Metabolic Nhi187 BILI T 0.3 mg/dL 11/14/2017 Comp Metabolic Jax667 ALBUMIN 3.8 g/dL 11/14/2017 Comp Metabolic Qjx018 TPRO 7.3 g/dL 11/14/2017 Comp Metabolic Lkb198 GLOB 3.5 g/dL 11/14/2017 Comp Metabolic Agj624 A/G Ratio 1.1 Ratio 11/14/2017 Comp Metabolic Hra339 Osmo 276 mOsmo 11/14/2017 Cbc With Differential [...] 29.9 pg 11/14/2017 Cbc With Differential Ord2 Titus% 11.2 % 11/14/2017 Cbc With Differential Ord2 [...] 1.85 K/ul 11/14/2017 Cbc With Differential Ord2 Titus ABS# 1.0 K/ul 11/14/2017 Cbc With Differential Ord2 Eos ABS# 0.6 K/ul 11/14/2017 Cbc With Differential Ord2 Baso ABS# 0.0 K/ul 11/14/2017 Culture Urine [id number] URINE CULTURE SEE NOTES 05/22/2017 Culture Urine [id number] Continued Results 05/22/2017 Urine Culture Ucult Complete >100,000 col/ml aerobic growth sent to ref lab 05/16/2017 Culture Urine [id number] URINE CULTURE SEE NOTES 04/21/2017 Urine Culture [...] 30.9 pg 03/30/2017 Cbc With Differential Ord2 Titus% 13.0 % 03/30/2017 Cbc With Differential Ord2 [...] 1.69 K/ul 03/30/2017 Cbc With Differential Ord2 Titus ABS# 0.9 K/ul 03/30/2017 Cbc With Differential Ord2 Eos ABS# 0.5 K/ul 03/30/2017 Cbc With Differential Ord2 Baso ABS# 0.0 K/ul 03/30/2017 %Hba1C Wcx391 % HbA1c 67463- 6 5.8 % 03/30/2017 %Hba1C Mqc629 Gluc Ave 120 mg/dL 03/30/2017 Comp Metabolic Mbl372 NA 140 mEq/L 03/30/2017 Comp Metabolic Yfm146 K 4.0 mEq/L 03/30/2017 Comp Metabolic Vgu057 CL 105 mEq/L 03/30/2017 Comp Metabolic Fxh086 CO2 25.0 mEq/L 03/30/2017 Comp Metabolic Zug078 ANION GAP 14 03/30/2017 Comp Metabolic Mel662 GLUCOSE 108 mg/dL 03/30/2017 Comp Metabolic Hfo017 Creat 1.2 mg/dL 03/30/2017 Comp Metabolic Cnf386 eGFR 63 ml/min/1.73m2 03/30/2017 Comp Metabolic Pwq993 BUN 20 mg/dL 03/30/2017 Comp Metabolic Lvl757 B/C Ratio 16.9 Ratio 03/30/2017 Comp Metabolic Uox152 CALCIUM 9.2 mg/dL 03/30/2017 Comp Metabolic Ptg318 ALK PHOS 83 U/L 03/30/2017 Comp Metabolic Oqj483 AST(SGOT) 17 U/L 03/30/2017 Comp Metabolic Lme459 ALT(SGPT) 19 U/L 03/30/2017 Comp Metabolic Mem944 BILI T 0.3 mg/dL 03/30/2017 Comp Metabolic Sbr790 ALBUMIN 3.9 g/dL 03/30/2017 Comp Metabolic Viz097 TPRO 7.2 g/dL 03/30/2017 Comp Metabolic Xlh352 GLOB 3.3 g/dL 03/30/2017 Comp Metabolic Pig140 A/G Ratio 1.2 Ratio 03/30/2017 Comp Metabolic Unx618 Osmo 283 mOsmo 03/30/2017 Tsh Ord6 TSH (3rd IS) 1.40 uIU/mL 03/30/2017 Clostridium Diff Tox A/B Isw536 Cdiff Positive 06/03/2016 Total Psa PSA 1.53 [...] 31.2 pg 03/20/2015 Cbc With Differential Ord2 Titus% 12.8 % 03/20/2015 Cbc With Differential Ord2 [...] 1.69 K/ul 03/20/2015 Cbc With Differential Ord2 Titus ABS# 0.8 K/ul 03/20/2015 Cbc With Differential Ord2 Eos ABS# 0.6 K/ul 03/20/2015 Cbc With Differential Ord2 Baso ABS# 0.0 K/ul 03/20/2015 Cbc With Differential Ord2 New Analyzer Notice Please note new ref ranges starting 03-04-2015 due to implemntation of new five part differential hematolgy analyzer. 03/20/2015 Total Psa Ord10 PSA 2.25 ng/mL 02/26/2015 Comp Metabolic Ain244 NA 138 mEq/L 02/26/2015 Comp Metabolic Wqi751 K 4.0 mEq/L 02/26/2015 Comp Metabolic Ezb291 CL 103 mEq/L 02/26/2015 Comp Metabolic Ejc943 CO2 28.0 mEq/L 02/26/2015 Comp Metabolic Rle195 ANION GAP 11 02/26/2015 Comp Metabolic Ied178 GLUCOSE 95 mg/dL 02/26/2015 Comp Metabolic Mhn248 Creat 1.0 mg/dL 02/26/2015 Comp Metabolic Uod462 eGFR 74 ml/min/1.73m2 02/26/2015 Comp Metabolic Vkc122 BUN 19 mg/dL 02/26/2015 Comp Metabolic Dgq253 B/C Ratio 18.3 Ratio 02/26/2015 Comp Metabolic Bwt041 CALCIUM 9.1 mg/dL 02/26/2015 Comp Metabolic Amj060 ALK PHOS 87 U/L 02/26/2015 Comp Metabolic Yhc880 AST(SGOT) 22 U/L 02/26/2015 Comp Metabolic Tyg097 ALT(SGPT) 24 U/L 02/26/2015 Comp Metabolic Xwr846 BILI T 0.4 mg/dL 02/26/2015 Comp Metabolic Kxq861 ALBUMIN 4.0 g/dL 02/26/2015 Comp Metabolic Skn801 TPRO 7.4 g/dL 02/26/2015 Comp Metabolic Icn785 GLOB 3.4 g/dL 02/26/2015 Comp Metabolic Hgb901 A/G Ratio 1.2 Ratio 02/26/2015 Comp Metabolic Cms457 Osmo 278 mOsmo 02/26/2015 Culture Urine [id number] URINE CULTURE SEE NOTES 12/15/2014 Culture Urine [id number] Continued Results 12/15/2014 Urine Culture Ucult Complete >100,000 col/ml aerobic growth sent to ref lab 12/12/2014 Comp Metabolic Yky996 NA 136 mEq/L 12/05/2014 Comp Metabolic Aqt705 K 4.3 mEq/L 12/05/2014 Comp Metabolic Nyo294 CL 104 mEq/L 12/05/2014 Comp Metabolic Zkm279 CO2 29.0 mEq/L 12/05/2014 Comp Metabolic Pyn134 ANION GAP 7 12/05/2014 Comp Metabolic Htt948 GLUCOSE 80 mg/dL 12/05/2014 Comp Metabolic Bve001 Creat 1.1 mg/dL 12/05/2014 Comp Metabolic Spu280 eGFR 68 ml/min/1.73m2 12/05/2014 Comp Metabolic Tfw752 BUN 21 mg/dL 12/05/2014 Comp Metabolic Oce071 B/C Ratio 18.8 Ratio 12/05/2014 Comp Metabolic Ydo642 CALCIUM 9.3 mg/dL 12/05/2014 Comp Metabolic Kba798 ALK PHOS 81 U/L 12/05/2014 Comp Metabolic Lgr227 AST(SGOT) 17 U/L 12/05/2014 Comp Metabolic Mjl140 ALT(SGPT) 16 U/L 12/05/2014 Comp Metabolic Cen236 BILI T 0.3 mg/dL 12/05/2014 Comp Metabolic Wlt333 ALBUMIN 4.0 g/dL 12/05/2014 Comp Metabolic Nqw655 TPRO 6.9 g/dL 12/05/2014 Comp Metabolic Zvy650 GLOB 2.9 g/dL 12/05/2014 Comp Metabolic Zbl016 A/G Ratio 1.4 Ratio 12/05/2014 Comp Metabolic Wno145 Osmo 274 mOsmo 12/05/2014 Cbc With Differential [...] Ord2 RDW 15.0 % 12/05/2014 Culture Urine [id number] URINE CULTURE SEE NOTES 11/27/2014 Culture Urine [id number] Continued Results 11/27/2014 Urine Culture Ucult Complete Growth of aerobe sent to ref lab 11/25/2014 B Type Natriuretic Peptide Ais9928 B-CLOAK ROOM ATTENDANT 121.00 pg/ml 10/08/2014 Cbc With Differential Ord2 [...] Folate Ord36 Folate 22.12 ng/mL 10/08/2014 B12 Cjm701 B12 >1500.00 pg/ml 10/08/2014 Comp Metabolic Bhe220 NA 135 mEq/L 10/08/2014 Comp Metabolic Juw503 K 4.5 mEq/L 10/08/2014 Comp Metabolic Udp121 CL 104 mEq/L 10/08/2014 Comp Metabolic Cbh577 CO2 25.0 mEq/L 10/08/2014 Comp Metabolic Qxa016 ANION GAP 11 10/08/2014 Comp Metabolic Ctv184 GLUCOSE 73 mg/dL 10/08/2014 Comp Metabolic Avi644 Creat 1.1 mg/dL 10/08/2014 Comp Metabolic Vci873 eGFR 71 ml/min/1.73m2 10/08/2014 Comp Metabolic Rky828 BUN 21 mg/dL 10/08/2014 Comp Metabolic Kbc654 B/C Ratio 19.4 Ratio 10/08/2014 Comp Metabolic Izu030 CALCIUM 9.0 mg/dL 10/08/2014 Comp Metabolic Upn187 ALK PHOS 73 U/L 10/08/2014 Comp Metabolic Ovg793 AST(SGOT) 15 U/L 10/08/2014 Comp Metabolic Snn564 ALT(SGPT) 14 U/L 10/08/2014 Comp Metabolic Vdp840 BILI T 0.4 mg/dL 10/08/2014 Comp Metabolic Jdj797 ALBUMIN 4.2 g/dL 10/08/2014 Comp Metabolic Opp306 TPRO 7.1 g/dL 10/08/2014 Comp Metabolic Csl070 GLOB 2.9 g/dL 10/08/2014 Comp Metabolic Kjw312 A/G Ratio 1.4 Ratio 10/08/2014 Comp Metabolic Oiq379 Osmo 272 mOsmo 10/08/2014 B12 Rwi657 B12 554.00 pg/ml 09/16/2014 Tibc Ord40 Iron 108 ug/dl 09/16/2014 Tibc Ord40 UIBC 281 ug/dL 09/16/2014 Tibc Ord40 TIBC 389 ug/dL 09/16/2014 Tibc Ord40 Fe-%Sat 27.8 % 09/16/2014 Folate Ord36 Folate >23.20 ng/mL 09/16/2014 Comp Metabolic Nfd995 NA 134 mEq/L 09/16/2014 Comp Metabolic Pep739 K 4.6 mEq/L 09/16/2014 Comp Metabolic Ele483 CL 103 mEq/L 09/16/2014 Comp Metabolic Gzw439 CO2 25.0 mEq/L 09/16/2014 Comp Metabolic Qua754 ANION GAP 11 09/16/2014 Comp Metabolic Qfl122 GLUCOSE 93 mg/dL 09/16/2014 Comp Metabolic Tbr388 Creat 1.2 mg/dL 09/16/2014 Comp Metabolic Syw103 eGFR 65 ml/min/1.73m2 09/16/2014 Comp Metabolic Jsv818 BUN 23 mg/dL 09/16/2014 Comp Metabolic Ffx083 B/C Ratio 19.8 Ratio 09/16/2014 Comp Metabolic Dyc991 CALCIUM 9.1 mg/dL 09/16/2014 Comp Metabolic Pkq562 ALK PHOS 73 U/L 09/16/2014 Comp Metabolic Flo105 AST(SGOT) 18 U/L 09/16/2014 Comp Metabolic Rej242 ALT(SGPT) 16 U/L 09/16/2014 Comp Metabolic Tzb884 BILI T 0.4 mg/dL 09/16/2014 Comp Metabolic Gsn648 ALBUMIN 4.0 g/dL 09/16/2014 Comp Metabolic Dap978 TPRO 7.1 g/dL 09/16/2014 Comp Metabolic Alc944 GLOB 3.1 g/dL 09/16/2014 Comp Metabolic Qyi605 A/G Ratio 1.3 Ratio 09/16/2014 Comp Metabolic Kza858 Osmo 272 mOsmo 09/16/2014 Cbc With Differential [...] Ord22 FERRITIN 36.2 ng/mL 09/16/2014 Culture Urine [id number] URINE CULTURE SEE NOTES 09/08/2014 Urine Culture [...] Ord2 RDW 17.8 % 09/05/2014 Comp Metabolic Jar068 NA 133 mEq/L 09/05/2014 Comp Metabolic Cen412 K 4.9 mEq/L 09/05/2014 Comp Metabolic Jkm660 CL 99 mEq/L 09/05/2014 Comp Metabolic Fdv783 CO2 26.0 mEq/L 09/05/2014 Comp Metabolic Wwf790 ANION GAP 13 09/05/2014 Comp Metabolic Ttw906 GLUCOSE 83 mg/dL 09/05/2014 Comp Metabolic Eoa378 Creat 1.5 mg/dL 09/05/2014 Comp Metabolic Dlt755 eGFR 47 ml/min/1.73m2 09/05/2014 Comp Metabolic Ogn915 BUN 28 mg/dL 09/05/2014 Comp Metabolic Hye669 B/C Ratio 18.3 Ratio 09/05/2014 Comp Metabolic Gmq830 CALCIUM 8.9 mg/dL 09/05/2014 Comp Metabolic Yui944 ALK PHOS 71 U/L 09/05/2014 Comp Metabolic Rzv012 AST(SGOT) 18 U/L 09/05/2014 Comp Metabolic Tsm869 ALT(SGPT) 29 U/L 09/05/2014 Comp Metabolic Xmj253 BILI T 0.6 mg/dL 09/05/2014 Comp Metabolic Nxn208 ALBUMIN 3.8 g/dL 09/05/2014 Comp Metabolic Lbc973 TPRO 6.7 g/dL 09/05/2014 Comp Metabolic Zte663 GLOB 2.9 g/dL 09/05/2014 Comp Metabolic Sdf064 A/G Ratio 1.3 Ratio 09/05/2014 Comp Metabolic Mzv029 Osmo 271 mOsmo 09/05/2014 Total Psa Ord10 [...] nourished 05/22/2018 None Full Exam - General 1994 Eyes conjunctiva/eyelids Overall: conjunctiva clear 05/22/2018 None Full Exam - General 1994 Eyes conjunctiva/eyelids Overall: eyelids normal 05/22/2018 None Full Exam - General 1995 Ears/Nose/Throat otoscopic exam Tympanic membrane: air-fluid level 05/22/2018 None Full Exam - General 1994 Ears/Nose/Throat lips/teeth/gingiva Overall: benign lips 05/22/2018 None Full Exam - General 1995 Ears/Nose/Throat oral cavity/pharynx/larynx Overall: oral mucosa clear 05/22/2018 None Full Exam - General 1994 Ears/Nose/Throat oral cavity/pharynx/larynx Posterior Pharynx: clear post [...] Procedure Codes Date THER/PROPH/DIAG INJ SC/IM CPT-4: 14652 05/22/2018 ROCEPHIN, PER 250 MG CPT- 4: J0696 05/22/2018 THER/PROPH/DIAG INJ SC/IM CPT-4: 26229 04/20/2018 TRIAMCINOLONE ACET INJ NOS CPT-4: J3301 04/20/2018 URINALYSIS NONAUTO W/O SCOPE CPT-4: 10055 12/14/2017 URINALYSIS NONAUTO W/O SCOPE CPT-4: 72819 05/15/2017 URINALYSIS NONAUTO W/O SCOPE CPT-4: 35696 09/18/2015 ADMIN INFLUENZA VIRUS VAC CPT-4: G0008 12/31/2014 FLU VACC PRSV FREE INC ANTIG Formatting Model/CDA Sections, Assigned to/[place] French CPT-4: 67886Hiquwbc 12/31/2014 URINALYSIS NONAUTO W/O SCOPE CPT-4: 42293 12/10/2014 URINALYSIS NONAUTO W/O SCOPE CPT-4: 89264 11/24/2014 ROCEPHIN, PER 250 MG CPT- 4: J0696 09/05/2014 THER/PROPH/DIAG INJ SC/IM CPT-4: 29015 09/05/2014 URINALYSIS NONAUTO W/O SCOPE CPT-4: 24934 09/04/2014 Vital Signs Date Vital 07/06/2018 Blood [...] 1: 138/60 Code: 8480-6 BMI: 37.2 Code: 46688-6 Heart Rate 1: 79 bpm Height: 5'9" SpO2: 91% Weight: 252 lbs 07/01/2016 Blood Pressure 1: 138/68 Code: 8480-6 BMI: 37.2 Code: 46942-9 Heart Rate 1: 69 bpm Height: 5'9" SpO2: 93% Weight: 252 lbs 05/05/2016 Blood Pressure 1: 136/78 Code: 8480-6 BMI: 39.3 Code: 56530-7 Heart Rate 1: 72 bpm Height: 5'9" SpO2: 97% Weight: 266 lbs 02/23/2016 Blood Pressure 1: 145/70 Code: 8480-6 BMI: 37.5 Code: 80379-1 Heart Rate 1: 80 bpm Height: 5'9" Weight: 254 lbs 09/16/2015 Blood Pressure 1: 140/62 Code: 8480-6 Heart Rate 1: 77 bpm Height: 5'9" SpO2: 93% Weight: 07/24/2015 Blood Pressure 1: 152/68 Code: 8480-6 BMI: 37.7 Code: 52422-8 Heart Rate 1: 73 bpm Height: 5'9" SpO2: 97% Weight: 255 lbs 03/20/2015 Blood Pressure 1: 146/74 Code: 8480-6 BMI: 38.1 Code: 94269-4 Heart Rate 1: 63 bpm Height: 5'9" Weight: 258 lbs 01/13/2015 Blood Pressure 1: 120/58 Code: 8480-6 Heart Rate 1: 52 bpm Height: 5'9" SpO2: 97% Temperature: 37.1 (C) / 98.7 (F) Weight: 12/05/2014 Blood Pressure 1: 134/54 Code: 8480-6 BMI: 36.3 Code: 92815-6 Heart Rate 1: 76 bpm Height: 5'9" SpO2: 93% Weight: 246 lbs 10/03/2014 Blood Pressure 1: 132/60 Code: 8480-6 Heart Rate 1: 76 bpm Height: SpO2: 95% Weight: 254 lbs 09/15/2014 Blood Pressure 1: 120/68 Code: 8480-6 BMI: 37.5 Code: 10561-4 Heart Rate 1: 76 bpm Height: 5'9" SpO2: 93% Weight: 254 lbs 09/05/2014 Blood Pressure 1: 110/50 Code: 8480-6 BMI: 37.4 Code: 84512-9 Heart Rate 1: 79 bpm Height: 5'9" SpO2: 96% Temperature: 36.3 (C) / 97.4 (F) Weight: 253 lbs 07/04/2014 Blood Pressure 1: 138/72 Code: 8480-6 BMI: 37.1 Code: 73434-1 Heart Rate 1: 72 bpm Height: 5'9" [...] discomfort 12/05/2014 occasional ache in chest- seeing supervisor steno pool in [place]- doing heart cath in October [...] discomfort 10/03/2014 occasional ache in chest- seeing supervisor steno pool in [place]- doing heart cath in October [...] data Encounters Encounter Performer Location Codes Date ) 08306 EST. PATIENT, LEVEL III Diagnosis: Shortness of breath[ICD10: R06.02] Diagnosis: Interstitial pulmonary disease, unspecified[ICD10: J84.9] Kavya Aburto MD, [facility] CPT-4: 72270 07/06/2018 22080 EST. 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 CPT-4: 28100 05/25/2018 11965 EST. PATIENT, LEVEL III Diagnosis: Acute on chronic combined systolic (congestive) and diastolic (congestive) heart failure[ICD10: I50.43] Diagnosis: Pneumonia due to other specified bacteria[ICD10: J15.8] Mary Aburto MD, [facility] CPT-4: 29958 05/22/2018 [id number] EST. PATIENT, LEVEL III Diagnosis: Other acute sinusitis[ICD10: J01.80] Diagnosis: Other allergic rhinitis[ICD10: J30.89] Diagnosis: Cough[ICD10: R05] Mary Aburto MD, [facility] CPT-4: 68248 04/20/2018 ([id number]) 05212 EST. PATIENT, LEVEL IV Diagnosis: Essential (primary) hypertension[ICD10: I10] Diagnosis: Other iron deficiency anemias[ICD10: D50.8] Diagnosis: Weakness[ICD10: R53.1] Darleen Aburto MD, [facility] CPT-4: 05578 11/14/2017 [id number] EST. PATIENT, LEVEL IV Diagnosis: Other lesions of oral mucosa[ICD10: K13.79] Diagnosis: Candidal stomatitis[ICD10: B37.0] Diagnosis: Generalized anxiety disorder[ICD10: F41.1] Diagnosis: Major depressive disorder, single episode, moderate[ICD10: F32.1] Mary Aburto MD, [facility] CPT-4: 06296 08/15/2017 85975 EST. PATIENT, LEVEL III Diagnosis: Generalized anxiety disorder[ICD10: F41.1] Diagnosis: Cauda equina syndrome[ICD10: G83.4] Diagnosis: Major depressive disorder, single episode, moderate[ICD10: F32.1] Mary Aburto MD, [facility] CPT-4: 85475 06/29/2017 64755 EST. PATIENT, LEVEL IV Diagnosis: Dysuria[ICD10: R30.0] Diagnosis: Other malaise[ICD10: R53.81] Diagnosis: Cauda equina syndrome[ICD10: G83.4] Diagnosis: Weakness[ICD10: R53.1] Mary Aburto MD, [facility] CPT-4: 78429 03/30/2017 ([id number]) 59335 EST. PATIENT, LEVEL III Diagnosis: Cough[ICD10: R05] Diagnosis: Enterocolitis due to Clostridium difficile[ICD10: A04.7] Kavya Aburto MD, [facility] CPT-4: 06990 10/07/2016 ([id number]) 57129 EST. 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 CPT-4: 80767 07/01/2016 36940 EST. PATIENT, LEVEL III Diagnosis: Cauda equina syndrome[ICD10: G83.4] Diagnosis: Irritable bowel syndrome with diarrhea[ICD10: K58.0] Mary Aburto MD, [facility] CPT-4: 06172 05/05/2016 [id number] EST. PATIENT, LEVEL III Diagnosis: Pain in right shoulder[ICD10: M25.511] Diagnosis: Weakness[ICD10: R53.1] Diagnosis: Shortness of breath[ICD10: R06.02] Mary Aburto MD, [facility] CPT-4: 45492 02/23/2016 28784 EST. PATIENT, LEVEL III Diagnosis: Essential (primary) hypertension[ICD10: I10] Diagnosis: Other insomnia[ICD10: G47.09] Diagnosis: Irritable bowel syndrome with diarrhea[ICD10: K58.0] Diagnosis: Shortness of breath[ICD10: R06.02] Diagnosis: Weakness[ICD10: R53.1] Mary Aburto MD, [facility] CPT-4: 23819 09/16/2015 30521 EST. PATIENT, LEVEL III Diagnosis: Diarrhea, unspecified[ICD10: R19.7] Diagnosis: Nausea[ICD10: R11.0] Mary Aburto MD, [facility] CPT-4: 31494 07/24/2015 29131 EST. PATIENT, LEVEL IV Diagnosis: Other iron deficiency anemias[ICD10: D50.8] Diagnosis: Rash and other nonspecific skin eruption[ICD10: R21] Diagnosis: Cauda equina syndrome[ICD10: G83.4] Diagnosis: Essential (primary) hypertension[ICD10: I10] Diagnosis: Other pruritus[ICD10: L29.8] Diagnosis: Shortness of breath[ICD10: R06.02] Mary Aburto MD, [facility] CPT-4: 65566 03/20/2015 75560 EST. PATIENT, LEVEL IV Diagnosis: Urinary tract infection, site not specified[ICD10: N39.0] Diagnosis: Umbilical hernia without obstruction or gangrene[ICD10: K42.9] Diagnosis: Cauda equina syndrome[ICD10: G83.4] Mary Aburto MD, [facility] CPT- 4: 05079 01/13/2015 ([id number]) 46908 EST. PATIENT, LEVEL IV Diagnosis: Iron deficiency anemia, unspecified[ICD10: D50.9] Diagnosis: Essential (primary) hypertension[ICD10: I10] Diagnosis: Hematuria, unspecified[ICD10: R31.9] Kavya Aburto MD, [facility] CPT-4: 66673 12/05/2014 ([id number]) 11648 EST. PATIENT, LEVEL IV Diagnosis: ESSENTIAL HYPERTENSION[ICD9: 401.9] Diagnosis: COPD (chronic obstructive pulmonary disease)[ICD9: 496] Diagnosis: ANEMIA[ICD9: 285.9] Diagnosis: SHORTNESS OF BREATH[ICD9: 786.05] Kavya Aburto MD, [facility] CPT- 4: 98458 10/03/2014 ([id number]) 74576 EST. PATIENT, LEVEL IV Diagnosis: ESSENTIAL HYPERTENSION[ICD9: 401.9] Diagnosis: ANEMIA[ICD9: 285.9] Diagnosis: MALAISE AND FATIGUE[ICD9: 780.79] [facility] CPT- 4: 52878 09/15/2014 [id number]) 98361 EST. PATIENT, LEVEL III Diagnosis: UTI[ICD9: 599.0] Diagnosis: Chronic back pain[ICD9: 724.5] Kavya Aburto MD, [facility] CPT-4: 44335 09/05/2014 ([id number]) OFFICE VISIT, NEW - LEVEL 4 Diagnosis: ESSENTIAL HYPERTENSION[ICD9: 401.9] Diagnosis: THRUSH[ICD9: 112.0] Diagnosis: Hyperlipidemia[ICD9: 272.4] Diagnosis: COPD (chronic obstructive pulmonary disease)[ICD9: 496] Diagnosis: Cauda equina syndrome[ICD9: 344.60] Diagnosis: History of prostate cancer[ICD9: V10.46] Kavya Aburto MD, [facility] CPT-4: 05738 07/04/2014 Plan of Care Planned Activity Notes Codes Status Date Visit Plan: Interstitial lung disease vs atypical pneumonia -patient's symptoms initially improved with antibiotics but shortness of breath persists -he has an appt with Dr Hutton on Monday for further evaluation - continue to use oxygen as needed -breathing treatments as directed-call with any questions or concerns-patient verbalized understanding of plan. 07/06/2018 Patient Education: Patient Medication Summary Completed 07/06/2018 Appointment: Mary Alan WPtel: [address] [place], [place] [id number] (30 min) Complex 07/05/2018 Visit Plan: CHF [...] call the office if there are any acu te concerns about change in blood pressure readings at home. 05/25/2018 Appointment: Mary Alan WPtel: [phone] [facility] (30 min) Complex 05/25/2018 Patient Education: Patient [...] home O2. 05/22/2018 [facility]ment: [phone] ([facility]) Complex 05/22/2018 Patient Education: [...] allergy spray. 04/20/2018 Appointment: Mary Alan WPtel: [facility] (15 min) Moderate 04/20/2018 Patient Education: Patient Medication Summary Completed 04/20/2018 Appointment: Lab Draw 12/14/2017 Patient Education: Patient Medication Summary Completed 12/14/2017 Appointment: Darleen Aburto WPtel: [facility] (15 min) Moderate 11/28/2017 Visit Plan: Hypertension [...] culture report. 11/14/2017 Appointment: Darleen Aburto WPtel: [facility] (15 min) Moderate 11/14/2017 Patient Education: Patient [...] this patient. 08/15/2017 Appointment: Mary Alan WPtel: [facility]5 [facility] (30 min) Complex 08/15/2017 Patient Education: Patient Medication Summary Completed 08/15/2017 Appointment: Mary Alan WPtel: [facility]5 [facility] (15 min) Moderate 08/08/2017 Appointment: Mary Alan WPtel: [phone] [facility] (15 min) Moderate 08/03/2017 Visit [...] symptoms. 06/29/2017 Appointment: Mary Alan WPtel: [phone] [facility] (15 min) Moderate 06/29/2017 Patient Education: Patient [...] improve. 03/30/2017 Appointment: [phone] ([facility] min) Complex 03/30/2017 Patient Education: Patient Medication Summary Completed 03/30/2017 Visit Plan: Cough-suspect virus-patient to monitor over the weekend-call Monday if symptoms persist and we will do a chest xray and sputum culture Cdiff-treat with flagyl as directed-call if symptoms do not resolve 10/07/2016 Appointment: Kavya Subramanian WPtel: [facility]5 [phone] [place] (30 min) Complex 10/07/2016 Patient Education: Patient Medication Summary Completed 10/07/2016 Patient Education: Obesity Completed 10/07/2016 Visit Plan: Cauda equina-chronic back pain-generalized weakness- right shoulder pain/weakness-patient to contact juan blancas for mobility paperwork-will ask PT to do a mobility exam through [facility] Drug induced constipation-rx for movantik. 07/01/2016 Visit Plan: Cauda equina-chronic back pain-generalized weakness- bilateral shoulder pain/weakness-OA knees-patient to contact juan blancas for mobility paperwork-will ask PT to do a mobility exam through [facility]. Patient is non ambulatory due to [...] for movantik. 07/01/2016 Appointment: Kavya Subramanian WPtel: [facility]5 [phone] (30 min) Complex 07/01/2016 Patient Education: Patient [...] his surgery. 05/05/2016 Appointment: Mary Alan WPtel: [address] [place], [place] [id number] Surgical Clearance 05/05/2016 Patient Education: Patient Medication [...] chair - will have pt contact Juan Blancas mobility. 02/23/2016 Appointment: [phone] (30 min) Complex 02/23/2016 Patient Education: Patient Medication Summary Completed 02/23/2016 Appointment: [phone] [facility] (30 min) Complex 02/19/2016 Appointment: [facility]el[phone] (15 min) Moderate 10/14/2015 Appointment: Lab Draw [...] having loose bowel movements. Keep appointment with Route Delivery Supervisor Make an appointment with supervisor steno pool - to follow up on shortness of breath. Weakness - pt is to contact Juan Godoy in [facility] and Call clinic when he is ready [...] not improved. 07/24/2015 Appointment: Kavya Subramanian WPtel: [phone] (30 min) Complex 07/24/2015 Patient Education: [...] and hypertension. 09/15/2014 Appointment: Darleen Aburto WPtel: [facility] (15 min) Moderate 09/15/2014 Patient Education: Patient [...] equina-increased incontinence of bowels-recommend follow up with admission specialist-will discuss repeat MRI with Dr Aburto-keep [...] do PT evaluation for motorized wheelchair through [facility] . Cauda equina-chronic back pain-generalized weakness-right shoulder pain/weakness- patient to contact [facility] for mobility paperwork-will ask PT to do a mobility exam through [facility] Drug induced constipation-rx for movantik. [employer] [place] to do PT evaluation for motorized wheelchair through [facility] . Cauda equina-chronic back pain-generalized weakness-bilateral shoulder pain/weakness- OA knees-patient to contact [facility] for mobility paperwork-will ask PT to do a mobility exam through [facility]. Patient is non ambulatory due to [...] incontinence of bowels- recommend follow up with admission specialist-will discuss repeat MRI with Dr Aburto-keep [...] (start tomorrow) let us know what your supervisor steno pool says at your appointment chest x-ray if [...] Peng 4. Make an appointment with your supervisor steno pool - to follow up on shortness of breath. 5. Call us when you here about the mobility paperwork and we will fill out the paperwork. Juan Susi Fercho in [facility] . Hypertension - The patient has been [...] having loose bowel movements. Keep appointment with Route Delivery Supervisor Make an appointment with supervisor steno pool - to follow up on shortness of breath. Weakness - pt is to contact Juan PierceSusi Fercho in [facility] and Call clinic when he is ready [...] 2 pills daily. Will consult Tiffany Bullard [place] [facility]. Cauda Equina - stable - continue [...]
[2018-07-19 08:35] VITALS: BP 132/60
--- OUTSIDE RECORDS SUMMARY | 2018-07-19 08:37 | XMS REPORT | CCD ---
Author Author Kavya Subramanian Organization [facility] Address [address] [place] [address] Phone Care Team Providers Care Real Estate Development Manager Name Role Phone PP Unavailable CCM Unavailable Summary Purpose Interface Exchange Insurance Providers Payer name Policy type / Coverage type Covered green party ID Effective Begin Date Effective End Date WPS Medicare Part B Commercial Insurance [id number] Unknown Unknown [employer]ALTH[employer]ICE Commercial Insurance [id number] Unknown Unknown Family history Father Diagnosis Age At Onset Coronary Artery Disease Unknown Mother Diagnosis Age At Onset Arthritis Unknown Sister Diagnosis Age At Onset Alzheimer's Disease Unknown Social History Social History Element Codes Description Effective Dates Marital status Unknown 07/04/2014 Number of children Unknown 2 07/04/2014 Living arrangements Unknown House 07/04/[address]: 5293407 Quit over 10 years ago 07/04/2014 Alcohol history Unknown occasionally drinks alcohol 07/04/2014 Frequency of drinks SNOMED CT: 654915295 Drinks rarely 07/04/2014 Allergies, Adverse Reactions, Alerts Substance Reaction Codes Entered Date Inactivated Date Status * NO KNOWN FOOD ALLERGIES Unknown 07/04/2014 No Inactive Date Active Iodine rash, pruritis, RxNorm: 5933 03/04/2015 No Inactive Date Active tramadol pruritis RxNorm: 97272 07/04/2014 No Inactive Date Active Past Medical History Illness Codes Condition Status Onset Date Resolved Date Acute on chronic combined systolic (congestive) and [...] 9: 787.91 ICD-10: R19.7 Active 07/23/2015 Unknown Shortness of breath ICD- 9: 786.05 ICD-10: R06.02 Active 02/22/2016 Unknown Urinary tract infection, site not specified [...] Problems Condition Codes Effective Dates Condition Status Acute on chronic combined systolic (congestive) and [...] ICD- 9: 787.91 ICD-10: R19.7 07/23/2015 Active Shortness of breath ICD- 9: 786.05 ICD-10: R06.02 02/22/2016 Active Urinary tract infection, site not specified [...] Instructions Cymbalta 30 mg capsule,delayed release RxNorm: 837405 2 Capsule(s) PO daily 07/03/2018 01/28/2019 Active oxycodone 5 mg tablet RxNorm: 5551114 4 Tablet(s) PO daily 06/27/2018 09/09/2018 Active doxycycline hyclate 100 mg tablet RxNorm: 3258827 1 Tablet(s) PO BID 06/01/2018 06/10/2018 Inactive doxycycline hyclate 100 mg tablet RxNorm: 9114895 1 Tablet(s) PO BID 06/01/2018 05/31/2018 Inactive Zithromax Z-Win 250 mg tablet RxNorm: 509950 Tablet(s) PO UD 05/22/2018 No Stop Date Active albuterol sulfate 2.5 mg/3 mL (0.083 %) solution for nebulization RxNorm: 965417 3 Milliliter(s) INH UD 05/22/2018 No Stop Date Active cefdinir 300 mg capsule RxNorm: 106215 1 Capsule(s) PO BID 05/22/2018 05/31/2018 Inactive ceftriaxone 500 mg solution for injection RxNorm: 6520230 2 Milliliter(s) Inj 05/22/2018 05/22/2018 Inactive diclofenac sodium 75 mg tablet,delayed release RxNorm: 765428 1 TABLET(S) PO BID 05/14/2018 02/07/2019 Active gabapentin 600 mg tablet RxNorm: 282621 TABLET(S) TAKE 1 TABLET BY MOUTH TWICE DAILY 04/23/2018 04/17/2019 Active prednisone 20 mg tablet RxNorm: 216867 2 Tablet(s) PO daily 04/20/2018 04/24/2018 Inactive Kenalog 40 mg/mL suspension for injection RxNorm: 3230014 Milliliter(s) Inj 04/20/2018 04/20/2018 Inactive Augmentin 500 mg-125 mg tablet RxNorm: 298296 1 Tablet(s) PO TID 04/20/2018 04/26/2018 Inactive oxycodone 5 mg tablet RxNorm: 0144170 4 Tablet(s) PO daily 04/12/2018 06/25/2018 Inactive potassium chloride ER 20 mEq tablet,extended release RxNorm: 206779 1 TABLET(S) PO DAILY 03/09/2018 03/03/2019 Active oxycodone 5 mg tablet RxNorm: 1081320 4 Tablet(s) PO daily 01/18/2018 04/02/2018 Inactive Augmentin 500 mg-125 mg tablet RxNorm: 529628 1 Tablet(s) PO TID 12/14/2017 12/23/2017 Inactive take probiotic bid x 10 days pantoprazole 40 mg tablet,delayed release RxNorm: 963164 TAKE 1 TABLET BY MOUTH DAILY 12/11/2017 12/05/2018 Active Augmentin 500 mg-125 mg tablet RxNorm: 593824 1 Tablet(s) PO TID 11/17/2017 11/22/2017 Inactive take probiotic bid x 7 days lisinopril 40 mg tablet RxNorm: 260353 TAKE 1 TABLET BY MOUTH DAILY 11/06/2017 08/02/2018 Active oxycodone 5 mg tablet RxNorm: 9060359 4 Tablet(s) PO daily 10/16/2017 12/29/2017 Inactive Cymbalta 30 mg capsule,delayed release RxNorm: 141772 2 Capsule(s) PO daily 08/17/2017 02/12/2018 Inactive Zoloft 25 mg tablet RxNorm: 504875 1 TABLET(S) PO DAILY X 5 DAYS THEN INCREASE TO 50MG DAILY 08/16/2017 No Stop Date Active Cymbalta 30 mg capsule,delayed release RxNorm: 775435 1 Capsule(s) PO 1 CAPSULE(S) PO DAILY X 1 WEEK, THEN INCREASE TO 2 DAILY 08/15/2017 08/16/2017 Inactive Patient requests 90 days supply diclofenac sodium 75 mg tablet,delayed release RxNorm: 559859 1 TABLET(S) PO BID 08/14/2017 05/10/2018 Inactive oxycodone 5 mg tablet RxNorm: 7025676 4 Tablet(s) PO daily 08/01/2017 10/14/2017 Inactive valacyclovir 1 gram tablet RxNorm: 862144 1 Tablet(s) PO TID 07/12/2017 07/11/2017 Inactive Zoloft 50 mg tablet RxNorm: 356023 1 Tablet(s) PO daily 07/12/2017 08/01/2017 Inactive valacyclovir 1 gram tablet RxNorm: 018335 1 Tablet(s) PO TID 07/12/2017 07/18/2017 Inactive Zoloft 50 mg tablet RxNorm: 737563 1 Tablet(s) PO daily 07/12/2017 07/11/2017 Inactive Zoloft 25 mg tablet RxNorm: 793076 1 Tablet(s) PO daily x 5 days then increase to 50mg daily 07/11/2017 07/11/2017 Inactive Cymbalta 30 mg capsule,delayed release RxNorm: 547995 1 Capsule(s) PO daily x 1 week, then increase to 2 daily 06/30/2017 06/29/2017 Inactive Cymbalta 30 mg capsule,delayed release RxNorm: 794375 1 CAPSULE(S) PO DAILY X 1 WEEK, THEN INCREASE TO 2 DAILY 06/30/2017 07/04/2017 Inactive Patient requests 90 days supply Augmentin 875 mg-125 mg tablet RxNorm: 475937 1 Tablet(s) PO BID 05/22/2017 05/28/2017 Inactive Probiotic QID while on antibiotics Bactrim DS 800 mg-160 mg tablet RxNorm: 310184 1 Tablet(s) PO BID 05/22/2017 05/21/2017 Inactive Probiotic QID while on antibiotics Bactrim DS 800 mg-160 mg tablet RxNorm: 406669 1 Tablet(s) PO BID 05/22/2017 05/28/2017 Inactive Probiotic QID while on antibiotics Augmentin 875 mg-125 mg tablet RxNorm: 250422 1 Tablet(s) PO BID 05/22/2017 05/21/2017 Inactive Probiotic QID while on antibiotics Cipro 500 mg tablet RxNorm: 185222 1 Tablet(s) PO BID 04/21/2017 04/30/2017 Inactive Take probiotic while on ABT Cipro 500 mg tablet RxNorm: 630249 1 Tablet(s) PO BID 04/21/2017 04/20/2017 Inactive Diflucan 150 mg tablet RxNorm: 070988 1 Tablet(s) PO daily 04/19/2017 11/13/2017 Inactive Diflucan 150 mg tablet RxNorm: 638612 1 Tablet(s) PO daily 04/19/2017 04/18/2017 Inactive oxycodone 5 mg tablet RxNorm: 4972708 4 Tablet(s) PO daily 04/17/2017 06/30/2017 Inactive gabapentin 600 mg tablet RxNorm: 182978 TABLET(S) TAKE 1 TABLET BY MOUTH TWICE DAILY 04/14/2017 04/08/2018 Inactive Rocephin 1 gram solution for injection RxNorm: 750272 1 Inj daily 04/05/2017 04/11/2017 Inactive Rocephin 1 gram solution for injection RxNorm: 487775 1 Inj daily 04/04/2017 04/04/2017 Inactive lidocaine (PF) 10 mg/mL (1 %) injection solution RxNorm: 5287242 1 Milliliter(s) Inj daily 04/04/2017 04/10/2017 Inactive Use to administer rocephin lidocaine (PF) 10 mg/mL (1 %) injection solution RxNorm: 1452239 1 Milliliter(s) Inj daily 04/04/2017 04/03/2017 Inactive Use to administer rocephin Rocephin 1 gram solution for injection RxNorm: 370428 1 Inj daily 04/04/2017 04/03/2017 Inactive Augmentin 500 mg-125 mg tablet RxNorm: 198403 1 Tablet(s) PO TID 03/31/2017 04/03/2017 Inactive Augmentin 500 mg-125 mg tablet RxNorm: 658539 1 Tablet(s) PO TID 03/31/2017 03/30/2017 Inactive Effexor XR 75 mg capsule,extended release RxNorm: 700425 TAKE 3 CAPSULES BY MOUTH EVERY MORNING 03/24/2017 11/13/2017 Inactive potassium chloride ER 20 mEq tablet,extended release RxNorm: 796470 1 TABLET(S) PO DAILY 03/13/2017 03/07/2018 Inactive lisinopril 40 mg tablet RxNorm: 172544 TAKE 1 TABLET BY MOUTH DAILY 02/06/2017 11/02/2017 Inactive pantoprazole 40 mg tablet,delayed release RxNorm: 669704 TAKE 1 TABLET BY MOUTH DAILY 12/19/2016 12/10/2017 Inactive oxycodone 5 mg tablet RxNorm: 2033275 4 Tablet(s) PO daily 12/19/2016 03/03/2017 Inactive diclofenac sodium 75 mg tablet,delayed release RxNorm: 271239 1 TABLET(S) PO BID 11/17/2016 08/13/2017 Inactive gabapentin 600 mg tablet RxNorm: 134634 TABLET(S) TAKE 1 TABLET BY MOUTH TWICE DAILY 10/14/2016 04/11/2017 Inactive Flagyl 500 mg tablet RxNorm: 610804 1 Tablet(s) PO TID 10/07/2016 10/16/2016 Inactive oxycodone 5 mg tablet RxNorm: 4199871 4 Tablet(s) PO daily 10/03/2016 12/16/2016 Inactive Effexor XR 75 mg capsule,extended release RxNorm: 851035 TAKE 3 CAPSULES BY MOUTH EVERY MORNING 09/22/2016 11/20/2016 Inactive Patient requests 90 days supply lisinopril 40 mg tablet RxNorm: 036757 TAKE 1 TABLET BY MOUTH DAILY 08/01/2016 01/27/2017 Inactive Effexor XR 75 mg capsule,extended release RxNorm: 513356 TAKE 3 CAPSULES BY MOUTH EVERY MORNING 07/21/2016 09/21/2016 Inactive oxycodone 5 mg tablet RxNorm: 0331033 4 Tablet(s) PO daily 07/11/2016 09/23/2016 Inactive Movantik 25 mg tablet RxNorm: 8671181 1 Tablet(s) PO daily 07/01/2016 11/13/2017 Inactive potassium chloride ER 20 mEq tablet,extended release RxNorm: 251473 1 TABLET(S) PO DAILY 06/14/2016 03/10/2017 Inactive Flagyl 500 mg tablet RxNorm: 379199 1 Tablet(s) PO TID 06/03/2016 06/12/2016 Inactive Flagyl 500 mg tablet RxNorm: 392563 1 Tablet(s) PO TID 06/03/2016 06/02/2016 Inactive oxycodone 5 mg tablet RxNorm: 0879046 4 Tablet(s) PO daily 04/27/2016 07/10/2016 Inactive Tamiflu 75 mg capsule RxNorm: 513408 1 Capsule(s) PO daily 04/19/2016 04/28/2016 Inactive Tamiflu 75 mg capsule RxNorm: 342955 1 Capsule(s) PO daily 04/19/2016 04/18/2016 Inactive Effexor XR 75 mg capsule,extended release RxNorm: 696698 TAKE 3 CAPSULES BY MOUTH EVERY MORNING 02/18/2016 04/17/2016 Inactive diclofenac sodium 75 mg tablet,delayed release RxNorm: 637014 1 TABLET(S) PO BID 02/18/2016 11/13/2016 Inactive Effexor XR 75 mg capsule,extended release RxNorm: 188812 Capsule(s) TAKE 3 CAPSULES BY MOUTH EVERY MORNING 02/17/2016 08/14/2016 Inactive oxycodone 5 mg tablet RxNorm: 5568628 4 Tablet(s) PO daily 02/04/2016 04/26/2016 Inactive clopidogrel 75 mg tablet RxNorm: 375910 1 TABLET(S) PO QAM 02/01/2016 01/25/2017 Inactive gabapentin 600 mg tablet RxNorm: 064565 Tablet(s) TAKE 1 TABLET BY MOUTH TWICE DAILY 02/01/2016 10/13/2016 Inactive Effexor XR 75 mg capsule,extended release RxNorm: 812747 TAKE 3 CAPSULES BY MOUTH EVERY MORNING 01/11/2016 02/09/2016 Inactive pantoprazole 40 mg tablet,delayed release RxNorm: 732544 TAKE 1 TABLET BY MOUTH DAILY 12/22/2015 12/15/2016 Inactive Effexor XR 75 mg capsule,extended release RxNorm: 811558 TAKE 3 CAPSULES BY MOUTH EVERY MORNING 11/16/2015 01/14/2016 Inactive lisinopril 40 mg tablet RxNorm: 095282 TAKE 1 TABLET BY MOUTH DAILY 11/05/2015 07/31/2016 Inactive Effexor XR 75 mg capsule,extended release RxNorm: 061697 TAKE 3 CAPSULES BY MOUTH EVERY MORNING 09/22/2015 11/20/2015 Inactive Augmentin 500 mg-125 mg tablet RxNorm: 450978 1 Tablet(s) PO TID 09/18/2015 09/24/2015 Inactive Anoro Ellipta 62.5 mcg-25 mcg/actuation powder for inhalation RxNorm: 9882836 1 INH daily 08/20/2015 02/15/2016 Inactive Anoro Ellipta 62.5 mcg-25 mcg/actuation powder for inhalation RxNorm: 8235714 1 INH DAILY 08/20/2015 11/13/2017 Inactive lisinopril 40 mg tablet RxNorm: 985293 TAKE 1 TABLET BY MOUTH DAILY 08/10/2015 11/04/2015 Inactive gabapentin 600 mg tablet RxNorm: 936591 TAKE 1 TABLET BY MOUTH TWICE DAILY 08/10/2015 01/31/2016 Inactive terazosin 2 mg capsule RxNorm: 309641 TAKE ONE CAPSULE BY MOUTH EVERY DAY 07/27/2015 08/29/2016 Inactive hyoscyamine 0.125 mg sublingual tablet RxNorm: 4000385 1 Tablet(s) SL TID as needed 07/24/2015 08/02/2015 Inactive metronidazole 500 mg tablet RxNorm: 812202 1 Tablet(s) PO TID 07/24/2015 07/30/2015 Inactive Effexor XR 75 mg capsule,extended release RxNorm: 650556 TAKE 3 CAPSULES BY MOUTH EVERY MORNING 07/23/2015 09/20/2015 Inactive oxycodone 5 mg tablet RxNorm: 4139132 4 Tablet(s) PO daily 06/26/2015 02/03/2016 Inactive potassium chloride ER 20 mEq tablet,extended release RxNorm: 558924 1 Tablet(s) PO daily 06/25/2015 06/13/2016 Inactive oxycodone 5 mg tablet RxNorm: 9470288 4 Tablet(s) PO daily 04/17/2015 06/25/2015 Inactive rx written Anoro Ellipta 62.5 mcg-25 mcg/actuation powder for inhalation RxNorm: 9214729 1 INH daily 04/17/2015 08/19/2015 Inactive potassium chloride ER 20 mEq tablet,extended release RxNorm: 612285 1 Tablet(s) PO daily 03/23/2015 06/24/2015 Inactive triamcinolone acetonide 0.1 % topical cream RxNorm: 9486140 1 Application TOP BID 03/20/2015 No Stop Date Active carvedilol 12.5 mg tablet RxNorm: 750340 1 TABLET(S) PO BID 02/23/2015 08/21/2015 Inactive diclofenac sodium 75 mg tablet,delayed release RxNorm: 638837 1 Tablet(s) PO BID 02/18/2015 02/12/2016 Inactive carvedilol 12.5 mg tablet RxNorm: 371962 1 Tablet(s) PO BID 02/17/2015 02/11/2016 Inactive furosemide 40 mg tablet RxNorm: 625772 1 Tablet(s) PO daily 02/17/2015 02/11/2016 Inactive lisinopril 40 mg tablet RxNorm: 260310 TAKE 1 TABLET BY MOUTH DAILY 02/16/2015 08/09/2015 Inactive ceftriaxone 1 gram solution for injection RxNorm: 5526024 1 Gram(s) Inj daily mix with lidocaine 01/14/2015 01/17/2015 Inactive please supply 4 bottles of 1gram rocephin IM with 1 bottle of lidocaine 1% for home health to administer to pt starting 01/15 ceftriaxone 1 gram solution for injection RxNorm: 6742446 1 Gram(s) Inj daily 01/14/2015 01/13/2015 Inactive please supply 4 bottles of 1gram rocephin IM with 1 bottle of lidocaine 1% for home health to administer to pt starting 01/15 Augmentin 500 mg-125 mg tablet RxNorm: 684309 1 Tablet(s) PO BID 01/13/2015 01/22/2015 Inactive Keflex 500 mg capsule RxNorm: 370197 1 Capsule(s) PO TID 12/12/2014 12/11/2014 Inactive Keflex 500 mg capsule RxNorm: 863753 1 Capsule(s) PO TID 12/12/2014 12/17/2014 Inactive Augmentin 500 mg-125 mg tablet RxNorm: 321363 1 Tablet(s) PO BID 11/28/2014 12/02/2014 Inactive Augmentin 500 mg-125 mg tablet RxNorm: 838864 1 Tablet(s) PO BID 11/28/2014 11/27/2014 Inactive Cipro 500 mg tablet RxNorm: 767901 1 Tablet(s) PO BID 11/24/2014 11/27/2014 Inactive gabapentin 600 mg tablet RxNorm: 258927 1 Tablet(s) PO BID 11/17/2014 08/13/2015 Inactive gabapentin 600 mg tablet RxNorm: 214865 1 Tablet(s) PO BID 11/17/2014 11/16/2014 Inactive oxycodone 5 mg tablet RxNorm: 6110256 4 Tablet(s) PO daily 11/07/2014 02/04/2015 Inactive rx written Effexor XR 75 mg capsule,extended release RxNorm: 443967 3 Capsule(s) 225 PO QAM 11/05/2014 03/04/2015 Inactive clopidogrel 75 mg tablet RxNorm: 952809 1 Tablet(s) PO QAM 11/05/2014 01/28/2016 Inactive Effexor XR 75 mg capsule,extended release RxNorm: 239669 3 Capsule(s) 225 PO QAM 11/03/2014 11/04/2014 Inactive carvedilol 12.5 mg tablet RxNorm: 058806 1 Tablet(s) PO BID 10/28/2014 02/16/2015 Inactive Effexor XR 75 mg capsule,extended release RxNorm: 788695 3 Capsule(s) 225 PO QAM 10/28/2014 11/02/2014 Inactive Effexor XR 75 mg capsule,extended release RxNorm: 480322 3 Capsule(s) 225 PO QAM 10/28/2014 10/27/2014 Inactive carvedilol 12.5 mg tablet RxNorm: 206797 1 Tablet(s) PO BID 10/28/2014 10/27/2014 Inactive ceftriaxone 1 gram solution for injection RxNorm: 0891579 Inj 09/05/2014 09/05/2014 Inactive Cipro 500 mg tablet RxNorm: 623323 1 Tablet(s) PO BID 09/04/2014 09/03/2014 Inactive Cipro 500 mg tablet RxNorm: 546644 1 Tablet(s) PO BID 09/04/2014 09/10/2014 Inactive oxycodone 5 mg tablet RxNorm: 1156970 4 Tablet(s) PO daily 08/20/2014 11/06/2014 Inactive rx written lisinopril 40 mg tablet RxNorm: 138490 TAKE 1 TABLET BY MOUTH DAILY 08/18/2014 02/13/2015 Inactive nystatin 100,000 unit/mL oral suspension RxNorm: 577119 5 Milliliter(s) PO QID 07/04/2014 07/13/2014 Inactive [SAVINGS FOR NON-COVERED DRUGS -- [id number], PCN: [id number], Group: [id number], ID# [id number], Questions: . THIS IS NOT INSURANCE.] WelChol 3.75 gram oral powder packet RxNorm: 376324 1 PO BID No Start Date Active amlodipine 10 mg tablet RxNorm: 357075 1 Tablet(s) PO QAM No Start Date Active One A Day oral RxNorm: 66980 oral No Start Date Active Vitamin D2 400 unit capsule RxNorm: 939569 1 Capsule(s) PO daily No Start Date Active aspirin 81 mg tablet,delayed release RxNorm: 552085 1 Tablet(s) PO daily No Start Date Active melatonin 5 mg disintegrating tablet RxNorm: 1907045 1 Tablet(s) PO QHS No Start Date Active Miralax 17 gram/dose oral powder RxNorm: 567495 17 Gram(s) PO daily in prune juice No Start Date Active clonidine HCl 0.1 mg tablet RxNorm: 777656 1 Tablet(s) PO QHS No Start Date Active hydrochlorothiazide oral RxNorm: 5487 oral No Start Date Active Lasix oral RxNorm: 903181 oral No Start Date 02/17/2015 Inactive potassium chloride 20 meq RxNorm: 399407 PO daily No Start Date 03/22/2015 Inactive Zoloft 25 mg tablet RxNorm: 053135 1 Tablet(s) PO daily x 5 days then increase to 50mg daily No Start Date 07/10/2017 Inactive oxycodone 5 mg tablet RxNorm: 1373336 3-4 Tablet(s) PO QHS No Start Date 08/19/2014 Inactive terazosin 2 mg capsule RxNorm: 450270 1 Capsule(s) PO daily No Start Date 07/26/2015 Inactive Effexor XR 75 mg capsule,extended release RxNorm: 968385 3 Capsule(s) 225 PO QAM No Start Date 10/27/2014 Inactive gabapentin 600 mg tablet RxNorm: 568381 1 Tablet(s) PO BID No Start Date 11/16/2014 Inactive pantoprazole 40 mg tablet,delayed release RxNorm: 846578 oral No Start Date 12/21/2015 Inactive Anoro Ellipta 62.5 mcg-25 mcg/actuation powder for inhalation RxNorm: 4830789 1 INH daily No Start Date 04/16/2015 Inactive diclofenac sodium 75 mg tablet,delayed release RxNorm: 814012 1 Tablet(s) PO BID No Start Date 02/17/2015 Inactive clopidogrel 75 mg tablet RxNorm: 961714 1 Tablet(s) PO QAM No Start Date 11/04/2014 Inactive lisinopril 40 mg tablet RxNorm: 618427 1 Tablet(s) PO daily No Start Date 08/17/2014 Inactive carvedilol 12.5 mg tablet RxNorm: 311489 1 Tablet(s) PO BID No Start Date 10/27/2014 Inactive Medication Administered Medication Codes Instructions Start Date Status ceftriaxone 500 mg solution for injection RxNorm: 7237066 2Milliliter 05/22/2018 No longer Active Kenalog 40 mg/mL suspension for injection RxNorm: 6862209 Milliliter 04/20/2018 No longer Active ceftriaxone 1 gram solution for injection RxNorm: 4265538 09/05/2014 No longer Active Immunizations Vaccine Codes Date Status Influenza CVX: 141 12/31/2014 completed Assessments Condition Codes Effective Dates 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 ICD-10: K58.0 ICD-9: 564.1 05/05/2016 Shortness of breath ICD-10: R06.02 ICD-9: 786.05 02/23/2016 Urinary tract infection, site not specified ICD-10: [...] Visit Reason For Visit Effective Dates Notes cough 05/25/2018 Hospital Follow Up 05/22/2018 sinus [...] 20.6 % 05/22/2018 Cbc With Differential Ord2 [place]% 14.7 % 05/22/2018 Cbc With Differential Ord2 [...] 2.01 K/ul 05/22/2018 Cbc With Differential Ord2 [place] ABS# 1.4 K/ul 05/22/2018 Cbc With Differential Ord2 Eos ABS# 0.4 K/ul 05/22/2018 Cbc With Differential Ord2 Baso ABS# 0.0 K/ul 05/22/2018 Comp Metabolic Fzw888 NA 136 mEq/L 05/22/2018 Comp Metabolic Dir008 K 4.7 mEq/L 05/22/2018 Comp Metabolic Vpx543 CL 104 mEq/L 05/22/2018 Comp Metabolic Mzw873 CO2 23.0 mEq/L 05/22/2018 Comp Metabolic Tsm286 ANION GAP 14 05/22/2018 Comp Metabolic Naq746 GLUCOSE 113 mg/dL 05/22/2018 Comp Metabolic Vad031 Creat 1.6 mg/dL 05/22/2018 Comp Metabolic Vyr640 eGFR 46 ml/min/1.73m2 05/22/2018 Comp Metabolic Igd780 BUN 21 mg/dL 05/22/2018 Comp Metabolic Mgy686 B/C Ratio 13.5 Ratio 05/22/2018 Comp Metabolic Dvp704 CALCIUM 8.6 mg/dL 05/22/2018 Comp Metabolic Zkz875 ALK PHOS 84 U/L 05/22/2018 Comp Metabolic Zrb351 AST(SGOT) 17 U/L 05/22/2018 Comp Metabolic Boq403 ALT(SGPT) 22 U/L 05/22/2018 Comp Metabolic Mxm816 BILI T 0.5 mg/dL 05/22/2018 Comp Metabolic Prq612 ALBUMIN 3.4 g/dL 05/22/2018 Comp Metabolic Ivc465 TPRO 6.6 g/dL 05/22/2018 Comp Metabolic Bez873 GLOB 3.2 g/dL 05/22/2018 Comp Metabolic Bty464 A/G Ratio 1.0 Ratio 05/22/2018 Comp Metabolic Kpr107 Osmo 276 mOsmo 05/22/2018 B Type Natriuretic Peptide Slm7965 B-CENTRAL SUPPLY TECH 258.00 pg/ml 05/22/2018 Magnesium Ord90 Mag 2.3 mg/dL 05/22/2018 Urine Culture Ucult Complete >100,000 col/ml aerobic growth sent to ref lab 12/15/2017 Lipid Ord30 CHOL 128 mg/dL 11/14/2017 Lipid Ord30 HDL 24.0 mg/dl 11/14/2017 Lipid Ord30 TRIG 206 mg/dL 11/14/2017 Lipid Ord30 LDL 63 mg/dL 11/14/2017 Lipid Ord30 C/HDL 5.3 Ratio 11/14/2017 Tsh Ord6 TSH (3rd IS) 3.24 uIU/mL 11/14/2017 Comp Metabolic Qup847 NA 137 mEq/L 11/14/2017 Comp Metabolic Som474 K 4.0 mEq/L 11/14/2017 Comp Metabolic Bzj298 CL 104 mEq/L 11/14/2017 Comp Metabolic Vry291 CO2 23.0 mEq/L 11/14/2017 Comp Metabolic Lcq757 ANION GAP 14 11/14/2017 Comp Metabolic Wco168 GLUCOSE 101 mg/dL 11/14/2017 Comp Metabolic Imr499 Creat 1.1 mg/dL 11/14/2017 Comp Metabolic Gtk811 eGFR 67 ml/min/1.73m2 11/14/2017 Comp Metabolic Fge755 BUN 18 mg/dL 11/14/2017 Comp Metabolic Rgh581 B/C Ratio 15.9 Ratio 11/14/2017 Comp Metabolic Kea922 CALCIUM 9.0 mg/dL 11/14/2017 Comp Metabolic Evn044 ALK PHOS 81 U/L 11/14/2017 Comp Metabolic Fzk681 AST(SGOT) 19 U/L 11/14/2017 Comp Metabolic Flq885 ALT(SGPT) 18 U/L 11/14/2017 Comp Metabolic Rgz990 BILI T 0.3 mg/dL 11/14/2017 Comp Metabolic Qvk698 ALBUMIN 3.8 g/dL 11/14/2017 Comp Metabolic Jaz849 TPRO 7.3 g/dL 11/14/2017 Comp Metabolic Klv854 GLOB 3.5 g/dL 11/14/2017 Comp Metabolic Zep737 A/G Ratio 1.1 Ratio 11/14/2017 Comp Metabolic Oyp777 Osmo 276 mOsmo 11/14/2017 Cbc With Differential [...] 29.9 pg 11/14/2017 Cbc With Differential Ord2 [place]% 11.2 % 11/14/2017 Cbc With Differential Ord2 [...] 1.85 K/ul 11/14/2017 Cbc With Differential Ord2 [place] ABS# 1.0 K/ul 11/14/2017 Cbc With Differential Ord2 Eos ABS# 0.6 K/ul 11/14/2017 Cbc With Differential Ord2 Baso ABS# 0.0 K/ul 11/14/2017 Culture Urine [id number] URINE CULTURE SEE NOTES 05/22/2017 Culture Urine [id number] Continued Results 05/22/2017 Urine Culture Ucult Complete >100,000 col/ml aerobic growth sent to ref lab 05/16/2017 Culture Urine [id number] URINE CULTURE SEE NOTES 04/21/2017 Urine Culture [...] 30.9 pg 03/30/2017 Cbc With Differential Ord2 [place]% 13.0 % 03/30/2017 Cbc With Differential Ord2 [...] 1.69 K/ul 03/30/2017 Cbc With Differential Ord2 [place] ABS# 0.9 K/ul 03/30/2017 Cbc With Differential Ord2 Eos ABS# 0.5 K/ul 03/30/2017 Cbc With Differential Ord2 Baso ABS# 0.0 K/ul 03/30/2017 %Hba1C Twb097 % HbA1c 53067- 6 5.8 % 03/30/2017 %Hba1C Kyx416 Gluc Ave 120 mg/dL 03/30/2017 Comp Metabolic Phf378 NA 140 mEq/L 03/30/2017 Comp Metabolic Coh346 K 4.0 mEq/L 03/30/2017 Comp Metabolic Lbw107 CL 105 mEq/L 03/30/2017 Comp Metabolic Fbj630 CO2 25.0 mEq/L 03/30/2017 Comp Metabolic Tdk119 ANION GAP 14 03/30/2017 Comp Metabolic Gml691 GLUCOSE 108 mg/dL 03/30/2017 Comp Metabolic Hbe132 Creat 1.2 mg/dL 03/30/2017 Comp Metabolic Xfj197 eGFR 63 ml/min/1.73m2 03/30/2017 Comp Metabolic Gkf486 BUN 20 mg/dL 03/30/2017 Comp Metabolic Fyq313 B/C Ratio 16.9 Ratio 03/30/2017 Comp Metabolic Jkp439 CALCIUM 9.2 mg/dL 03/30/2017 Comp Metabolic Nnu718 ALK PHOS 83 U/L 03/30/2017 Comp Metabolic Evl584 AST(SGOT) 17 U/L 03/30/2017 Comp Metabolic Vtv136 ALT(SGPT) 19 U/L 03/30/2017 Comp Metabolic Sbn709 BILI T 0.3 mg/dL 03/30/2017 Comp Metabolic Rzl281 ALBUMIN 3.9 g/dL 03/30/2017 Comp Metabolic Xrx092 TPRO 7.2 g/dL 03/30/2017 Comp Metabolic Phv752 GLOB 3.3 g/dL 03/30/2017 Comp Metabolic Ihw967 A/G Ratio 1.2 Ratio 03/30/2017 Comp Metabolic Hid227 Osmo 283 mOsmo 03/30/2017 Tsh Ord6 TSH (3rd IS) 1.40 uIU/mL 03/30/2017 Clostridium Diff Tox A/B Osk506 Cdiff Positive 06/03/2016 Total Psa PSA 1.53 [...] 31.2 pg 03/20/2015 Cbc With Differential Ord2 [place]% 12.8 % 03/20/2015 Cbc With Differential Ord2 [...] 1.69 K/ul 03/20/2015 Cbc With Differential Ord2 [place] ABS# 0.8 K/ul 03/20/2015 Cbc With Differential Ord2 Eos ABS# 0.6 K/ul 03/20/2015 Cbc With Differential Ord2 Baso ABS# 0.0 K/ul 03/20/2015 Cbc With Differential Ord2 New Analyzer Notice Please note new ref ranges starting 03-04-2015 due to implemntation of new five part differential hematolgy analyzer. 03/20/2015 Total Psa Ord10 PSA 2.25 ng/mL 02/26/2015 Comp Metabolic Zmo075 NA 138 mEq/L 02/26/2015 Comp Metabolic Sdc462 K 4.0 mEq/L 02/26/2015 Comp Metabolic Cai980 CL 103 mEq/L 02/26/2015 Comp Metabolic Frq179 CO2 28.0 mEq/L 02/26/2015 Comp Metabolic Aap167 ANION GAP 11 02/26/2015 Comp Metabolic Beo636 GLUCOSE 95 mg/dL 02/26/2015 Comp Metabolic Ntt173 Creat 1.0 mg/dL 02/26/2015 Comp Metabolic Qzc334 eGFR 74 ml/min/1.73m2 02/26/2015 Comp Metabolic Iid219 BUN 19 mg/dL 02/26/2015 Comp Metabolic Jxx144 B/C Ratio 18.3 Ratio 02/26/2015 Comp Metabolic Bwm339 CALCIUM 9.1 mg/dL 02/26/2015 Comp Metabolic Sov850 ALK PHOS 87 U/L 02/26/2015 Comp Metabolic Lxx872 AST(SGOT) 22 U/L 02/26/2015 Comp Metabolic Cje442 ALT(SGPT) 24 U/L 02/26/2015 Comp Metabolic Wfh818 BILI T 0.4 mg/dL 02/26/2015 Comp Metabolic Mlp568 ALBUMIN 4.0 g/dL 02/26/2015 Comp Metabolic Glf460 TPRO 7.4 g/dL 02/26/2015 Comp Metabolic Sal493 GLOB 3.4 g/dL 02/26/2015 Comp Metabolic Gut378 A/G Ratio 1.2 Ratio 02/26/2015 Comp Metabolic Wur154 Osmo 278 mOsmo 02/26/2015 Culture Urine [id number] URINE CULTURE SEE NOTES 12/15/2014 Culture Urine [id number] Continued Results 12/15/2014 Urine Culture Ucult Complete >100,000 col/ml aerobic growth sent to ref lab 12/12/2014 Comp Metabolic Azb516 NA 136 mEq/L 12/05/2014 Comp Metabolic Qpe277 K 4.3 mEq/L 12/05/2014 Comp Metabolic Mbo614 CL 104 mEq/L 12/05/2014 Comp Metabolic Gzq601 CO2 29.0 mEq/L 12/05/2014 Comp Metabolic Rhn238 ANION GAP 7 12/05/2014 Comp Metabolic Zmg177 GLUCOSE 80 mg/dL 12/05/2014 Comp Metabolic Cxg265 Creat 1.1 mg/dL 12/05/2014 Comp Metabolic Sfv025 eGFR 68 ml/min/1.73m2 12/05/2014 Comp Metabolic Tgy043 BUN 21 mg/dL 12/05/2014 Comp Metabolic Tvb890 B/C Ratio 18.8 Ratio 12/05/2014 Comp Metabolic Gka576 CALCIUM 9.3 mg/dL 12/05/2014 Comp Metabolic Aho869 ALK PHOS 81 U/L 12/05/2014 Comp Metabolic Gij183 AST(SGOT) 17 U/L 12/05/2014 Comp Metabolic Tvn336 ALT(SGPT) 16 U/L 12/05/2014 Comp Metabolic Mxf155 BILI T 0.3 mg/dL 12/05/2014 Comp Metabolic Ktb283 ALBUMIN 4.0 g/dL 12/05/2014 Comp Metabolic Ceh206 TPRO 6.9 g/dL 12/05/2014 Comp Metabolic Msl771 GLOB 2.9 g/dL 12/05/2014 Comp Metabolic Vzy651 A/G Ratio 1.4 Ratio 12/05/2014 Comp Metabolic Nkx653 Osmo 274 mOsmo 12/05/2014 Cbc With Differential [...] Ord2 RDW 15.0 % 12/05/2014 Culture Urine [id number] URINE CULTURE SEE NOTES 11/27/2014 Culture Urine [id number] Continued Results 11/27/2014 Urine Culture Ucult Complete Growth of aerobe sent to ref lab 11/25/2014 B Type Natriuretic Peptide Ena3169 B-CENTRAL SUPPLY TECH 121.00 pg/ml 10/08/2014 Cbc With Differential Ord2 [...] Folate Ord36 Folate 22.12 ng/mL 10/08/2014 B12 Syu016 B12 >1500.00 pg/ml 10/08/2014 Comp Metabolic Vvl079 NA 135 mEq/L 10/08/2014 Comp Metabolic Vai494 K 4.5 mEq/L 10/08/2014 Comp Metabolic Ktw711 CL 104 mEq/L 10/08/2014 Comp Metabolic Gja164 CO2 25.0 mEq/L 10/08/2014 Comp Metabolic Ujs878 ANION GAP 11 10/08/2014 Comp Metabolic Rpa516 GLUCOSE 73 mg/dL 10/08/2014 Comp Metabolic Qkt071 Creat 1.1 mg/dL 10/08/2014 Comp Metabolic Lwa656 eGFR 71 ml/min/1.73m2 10/08/2014 Comp Metabolic Hbf191 BUN 21 mg/dL 10/08/2014 Comp Metabolic Log326 B/C Ratio 19.4 Ratio 10/08/2014 Comp Metabolic Kpr906 CALCIUM 9.0 mg/dL 10/08/2014 Comp Metabolic Iji178 ALK PHOS 73 U/L 10/08/2014 Comp Metabolic Vpj709 AST(SGOT) 15 U/L 10/08/2014 Comp Metabolic Mku638 ALT(SGPT) 14 U/L 10/08/2014 Comp Metabolic Eud623 BILI T 0.4 mg/dL 10/08/2014 Comp Metabolic Vna270 ALBUMIN 4.2 g/dL 10/08/2014 Comp Metabolic Jwh897 TPRO 7.1 g/dL 10/08/2014 Comp Metabolic Mdr165 GLOB 2.9 g/dL 10/08/2014 Comp Metabolic Kac978 A/G Ratio 1.4 Ratio 10/08/2014 Comp Metabolic Vnu482 Osmo 272 mOsmo 10/08/2014 B12 Vfr705 B12 554.00 pg/ml 09/16/2014 Tibc Ord40 Iron 108 ug/dl 09/16/2014 Tibc Ord40 UIBC 281 ug/dL 09/16/2014 Tibc Ord40 TIBC 389 ug/dL 09/16/2014 Tibc Ord40 Fe-%Sat 27.8 % 09/16/2014 Folate Ord36 Folate >23.20 ng/mL 09/16/2014 Comp Metabolic Fod509 NA 134 mEq/L 09/16/2014 Comp Metabolic Ics439 K 4.6 mEq/L 09/16/2014 Comp Metabolic Rwj247 CL 103 mEq/L 09/16/2014 Comp Metabolic Ajt417 CO2 25.0 mEq/L 09/16/2014 Comp Metabolic Cjo709 ANION GAP 11 09/16/2014 Comp Metabolic Umc395 GLUCOSE 93 mg/dL 09/16/2014 Comp Metabolic Tgm383 Creat 1.2 mg/dL 09/16/2014 Comp Metabolic Juv232 eGFR 65 ml/min/1.73m2 09/16/2014 Comp Metabolic Eoc242 BUN 23 mg/dL 09/16/2014 Comp Metabolic Cml549 B/C Ratio 19.8 Ratio 09/16/2014 Comp Metabolic Wtp710 CALCIUM 9.1 mg/dL 09/16/2014 Comp Metabolic Gnz047 ALK PHOS 73 U/L 09/16/2014 Comp Metabolic Tax681 AST(SGOT) 18 U/L 09/16/2014 Comp Metabolic Gtv115 ALT(SGPT) 16 U/L 09/16/2014 Comp Metabolic Gcx997 BILI T 0.4 mg/dL 09/16/2014 Comp Metabolic Qvh347 ALBUMIN 4.0 g/dL 09/16/2014 Comp Metabolic Fai323 TPRO 7.1 g/dL 09/16/2014 Comp Metabolic Fzr433 GLOB 3.1 g/dL 09/16/2014 Comp Metabolic Jci211 A/G Ratio 1.3 Ratio 09/16/2014 Comp Metabolic Iig307 Osmo 272 mOsmo 09/16/2014 Cbc With Differential [...] Ord22 FERRITIN 36.2 ng/mL 09/16/2014 Culture Urine [id number] URINE CULTURE SEE NOTES 09/08/2014 Urine Culture [...] Ord2 RDW 17.8 % 09/05/2014 Comp Metabolic Zjz669 NA 133 mEq/L 09/05/2014 Comp Metabolic Zop309 K 4.9 mEq/L 09/05/2014 Comp Metabolic Gbq729 CL 99 mEq/L 09/05/2014 Comp Metabolic Kic643 CO2 26.0 mEq/L 09/05/2014 Comp Metabolic Hci755 ANION GAP 13 09/05/2014 Comp Metabolic Far505 GLUCOSE 83 mg/dL 09/05/2014 Comp Metabolic Tqn502 Creat 1.5 mg/dL 09/05/2014 Comp Metabolic Bdn338 eGFR 47 ml/min/1.73m2 09/05/2014 Comp Metabolic Zfh159 BUN 28 mg/dL 09/05/2014 Comp Metabolic Eip603 B/C Ratio 18.3 Ratio 09/05/2014 Comp Metabolic Ljl639 CALCIUM 8.9 mg/dL 09/05/2014 Comp Metabolic Lbd176 ALK PHOS 71 U/L 09/05/2014 Comp Metabolic Hyv267 AST(SGOT) 18 U/L 09/05/2014 Comp Metabolic Azr347 ALT(SGPT) 29 U/L 09/05/2014 Comp Metabolic Fpv937 BILI T 0.6 mg/dL 09/05/2014 Comp Metabolic Kxr255 ALBUMIN 3.8 g/dL 09/05/2014 Comp Metabolic Aiu004 TPRO 6.7 g/dL 09/05/2014 Comp Metabolic Cfy360 GLOB 2.9 g/dL 09/05/2014 Comp Metabolic Mmd801 A/G Ratio 1.3 Ratio 09/05/2014 Comp Metabolic Psx145 Osmo 271 mOsmo 09/05/2014 Total Psa Ord10 PSA 2.11 ng/mL 08/26/2014 Review of Systems System Result Effective Dates Constitutional recent illness 05/25/2018 Constitutional No chills [...] normal 05/22/2018 None Full Exam - General 1994 Ears/Nose/Throat otoscopic exam Tympanic membrane: air-fluid level 05/22/2018 None Full Exam - General 1994 Ears/Nose/Throat lips/teeth/gingiva Overall: benign lips 05/22/2018 None Full Exam - General 1994 [...] Procedure Codes Date THER/PROPH/DIAG INJ SC/IM CPT-4: 03395 05/22/2018 ROCEPHIN, PER 250 MG CPT- 4: J0696 05/22/2018 THER/PROPH/DIAG INJ SC/IM CPT-4: 04351 04/20/2018 TRIAMCINOLONE ACET INJ NOS CPT-4: J3301 04/20/2018 URINALYSIS NONAUTO W/O SCOPE CPT-4: 23848 12/14/2017 URINALYSIS NONAUTO W/O SCOPE CPT-4: 61272 05/15/2017 URINALYSIS NONAUTO W/O SCOPE CPT-4: 54178 09/18/2015 ADMIN INFLUENZA VIRUS VAC CPT-4: G0008 12/31/2014 FLU VACC PRSV FREE INC ANTIG Formatting Model/CDA Sections, Assigned to/[employer] CPT-4: [id number] 12/31/2014 URINALYSIS NONAUTO W/O SCOPE CPT-4: 07820 12/10/2014 URINALYSIS NONAUTO W/O SCOPE CPT-4: 22741 11/24/2014 ROCEPHIN, PER 250 MG CPT- 4: J0696 09/05/2014 THER/PROPH/DIAG INJ SC/IM CPT-4: 16198 09/05/2014 URINALYSIS NONAUTO W/O SCOPE CPT-4: 93264 09/04/2014 Vital Signs Date Vital 05/25/2018 Blood Pressure 1: 118/70 Code: 8480-6 [...] 1: 138/60 Code: 8480-6 BMI: 37.2 Code: 34599-9 Heart Rate 1: 79 bpm Height: 5'9" SpO2: 91% Weight: 252 lbs 07/01/2016 Blood Pressure 1: 138/68 Code: 8480-6 BMI: 37.2 Code: 07234-5 Heart Rate 1: 69 bpm Height: 5'9" SpO2: 93% Weight: 252 lbs 05/05/2016 Blood Pressure 1: 136/78 Code: 8480-6 BMI: 39.3 Code: 42768-6 Heart Rate 1: 72 bpm Height: 5'9" SpO2: 97% Weight: 266 lbs 02/23/2016 Blood Pressure 1: 145/70 Code: 8480-6 BMI: 37.5 Code: 70877-6 Heart Rate 1: 80 bpm Height: 5'9" Weight: 254 lbs 09/16/2015 Blood Pressure 1: 140/62 Code: 8480-6 Heart Rate 1: 77 bpm Height: 5'9" SpO2: 93% Weight: 07/24/2015 Blood Pressure 1: 152/68 Code: 8480-6 BMI: 37.7 Code: 77189-6 Heart Rate 1: 73 bpm Height: 5'9" SpO2: 97% Weight: 255 lbs 03/20/2015 Blood Pressure 1: 146/74 Code: 8480-6 BMI: 38.1 Code: 50581-3 Heart Rate 1: 63 bpm Height: 5'9" Weight: 258 lbs 01/13/2015 Blood Pressure 1: 120/58 Code: 8480-6 Heart Rate 1: 52 bpm Height: 5'9" SpO2: 97% Temperature: 37.1 (C) / 98.7 (F) Weight: 12/05/2014 Blood Pressure 1: 134/54 Code: 8480-6 BMI: 36.3 Code: 86503-9 Heart Rate 1: 76 bpm Height: 5'9" SpO2: 93% Weight: 246 lbs 10/03/2014 Blood Pressure 1: 132/60 Code: 8480-6 Heart Rate 1: 76 bpm Height: SpO2: 95% Weight: 254 lbs 09/15/2014 Blood Pressure 1: 120/68 Code: 8480-6 BMI: 37.5 Code: 98090-4 Heart Rate 1: 76 bpm Height: 5'9" SpO2: 93% Weight: 254 lbs 09/05/2014 Blood Pressure 1: 110/50 Code: 8480-6 BMI: 37.4 Code: 26327-3 Heart Rate 1: 79 bpm Height: 5'9" SpO2: 96% Temperature: 36.3 (C) / 97.4 (F) Weight: 253 lbs 07/04/2014 Blood Pressure 1: 138/72 Code: 8480-6 BMI: 37.1 Code: 06965-5 Heart Rate 1: 72 bpm Height: 5'9" SpO2: 93% Weight: 251 lbs Functional Status No Functional Status data History of Present Illness Symptom Name Status Result Effective Date Notes Location in the lung 05/25/2018 None Quality [...] discomfort 12/05/2014 occasional ache in chest- seeing circulation manager in [place]- doing heart cath in October [...] discomfort 10/03/2014 occasional ache in chest- seeing circulation manager in [place]- doing heart cath in October [...] data Encounters Encounter Performer Location Codes Date 24233 EST. 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 PATIENT, LEVEL III Diagnosis: Acute on chronic combined systolic (congestive) and diastolic (congestive) heart failure[ICD10: I50.43] Diagnosis: Pneumonia due to other specified bacteria[ICD10: J15.8] Mary Aburto MD, [facility] CPT-4: 07483 05/22/2018 86575 EST. PATIENT, LEVEL III Diagnosis: Other acute sinusitis[ICD10: J01.80] Diagnosis: Other allergic rhinitis[ICD10: J30.89] Diagnosis: Cough[ICD10: R05] Mary Aburto MD, [facility] CPT-4: 00241 04/20/2018 ([id number]) 77351 EST. PATIENT, LEVEL IV Diagnosis: Essential (primary) hypertension[ICD10: I10] Diagnosis: Other iron deficiency anemias[ICD10: D50.8] Diagnosis: Weakness[ICD10: R53.1] Darleen Aburto MD, [facility] CPT-4: 29991 11/14/2017 [id number] EST. PATIENT, LEVEL IV Diagnosis: Other lesions of oral mucosa[ICD10: K13.79] Diagnosis: Candidal stomatitis[ICD10: B37.0] Diagnosis: Generalized anxiety disorder[ICD10: F41.1] Diagnosis: Major depressive disorder, single episode, moderate[ICD10: F32.1] Mary Aburto MD, [facility] CPT-4: 19046 08/15/2017 60731 EST. PATIENT, LEVEL III Diagnosis: Generalized anxiety disorder[ICD10: F41.1] Diagnosis: Cauda equina syndrome[ICD10: G83.4] Diagnosis: Major depressive disorder, single episode, moderate[ICD10: F32.1] Mary Aburto MD, [facility] CPT-4: 76514 06/29/2017 58091 EST. PATIENT, LEVEL IV Diagnosis: Dysuria[ICD10: R30.0] Diagnosis: Other malaise[ICD10: R53.81] Diagnosis: Cauda equina syndrome[ICD10: G83.4] Diagnosis: Weakness[ICD10: R53.1] Mary Aburto MD, [facility] CPT-4: 88221 03/30/2017 ([id number]) 18002 EST. PATIENT, LEVEL III Diagnosis: Cough[ICD10: R05] Diagnosis: Enterocolitis due to Clostridium difficile[ICD10: A04.7] Kavya Aburto MD, [facility] CPT-4: 78274 10/07/2016 ([id number]) 44946 EST. 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 PATIENT, LEVEL III Diagnosis: Cauda equina syndrome[ICD10: G83.4] Diagnosis: Irritable bowel syndrome with diarrhea[ICD10: K58.0] Mary Aburto MD, [facility] CPT-4: 52868 05/05/2016 30088 EST. PATIENT, LEVEL III Diagnosis: Pain in right shoulder[ICD10: M25.511] Diagnosis: Weakness[ICD10: R53.1] Diagnosis: Shortness of breath[ICD10: R06.02] Mary Aburto MD, [facility] CPT-4: 62508 02/23/2016 [id number] EST. PATIENT, LEVEL III Diagnosis: Essential (primary) hypertension[ICD10: I10] Diagnosis: Other insomnia[ICD10: G47.09] Diagnosis: Irritable bowel syndrome with diarrhea[ICD10: K58.0] Diagnosis: Shortness of breath[ICD10: R06.02] Diagnosis: Weakness[ICD10: R53.1] Mary Aburto MD, [facility] CPT-4: 92734 09/16/2015 45294 EST. PATIENT, LEVEL III Diagnosis: Diarrhea, unspecified[ICD10: R19.7] Diagnosis: Nausea[ICD10: R11.0] Mary Aburto MD, [facility] CPT-4: 82048 07/24/2015 56972 EST. PATIENT, LEVEL IV Diagnosis: Other iron deficiency anemias[ICD10: D50.8] Diagnosis: Rash and other nonspecific skin eruption[ICD10: R21] Diagnosis: Cauda equina syndrome[ICD10: G83.4] Diagnosis: Essential (primary) hypertension[ICD10: I10] Diagnosis: Other pruritus[ICD10: L29.8] Diagnosis: Shortness of breath[ICD10: R06.02] Mary Aburto MD, [facility] CPT-4: 69257 03/20/2015 99515 EST. PATIENT, LEVEL IV Diagnosis: Urinary tract infection, site not specified[ICD10: N39.0] Diagnosis: Umbilical hernia without obstruction or gangrene[ICD10: K42.9] Diagnosis: Cauda equina syndrome[ICD10: G83.4] Mary Aburto MD, [facility] CPT- 4: 50246 01/13/2015 ([id number]) 35994 EST. PATIENT, LEVEL IV Diagnosis: Iron deficiency anemia, unspecified[ICD10: D50.9] Diagnosis: Essential (primary) hypertension[ICD10: I10] Diagnosis: Hematuria, unspecified[ICD10: R31.9] Kavya Aburto MD, [facility] CPT-4: 73013 12/05/2014 ([id number]) 02878 EST. PATIENT, LEVEL IV Diagnosis: ESSENTIAL HYPERTENSION[ICD9: 401.9] Diagnosis: COPD (chronic obstructive pulmonary disease)[ICD9: 496] Diagnosis: ANEMIA[ICD9: 285.9] Diagnosis: SHORTNESS OF BREATH[ICD9: 786.05] Kavya Aburto MD, [facility] CPT- 4: 41800 10/03/2014 ([id number]) 53776 EST. PATIENT, LEVEL IV Diagnosis: ESSENTIAL HYPERTENSION[ICD9: 401.9] Diagnosis: ANEMIA[ICD9: 285.9] Diagnosis: MALAISE AND FATIGUE[ICD9: 780.79] Darleen Aburto MD, [facility] CPT- 4: 40684 09/15/2014 ([id number] [id number] EST. PATIENT, LEVEL III Diagnosis: UTI[ICD9: 599.0] Diagnosis: Chronic back pain[ICD9: 724.5] [facility] CPT-4: 06809 09/05/2014 ([id number]) OFFICE VISIT, NEW - LEVEL 4 Diagnosis: ESSENTIAL HYPERTENSION[ICD9: 401.9] Diagnosis: THRUSH[ICD9: 112.0] Diagnosis: Hyperlipidemia[ICD9: 272.4] Diagnosis: COPD (chronic obstructive pulmonary disease)[ICD9: 496] Diagnosis: Cauda equina syndrome[ICD9: 344.60] Diagnosis: History of prostate cancer[ICD9: V10.46] [facility] CPT-4: 98583 07/04/2014 Plan of Care Planned Activity Notes Codes Status Date Visit Plan: CHF - congestive heart failure [...] at home. 05/25/2018 Appointment: Mary Alan WPtel: [address] [place], [place] [id number] (30 min) [facility] 05/25/2018 Patient Education: Patient Medication Summary Completed [...] O2. 05/22/2018 App[facility]ment: [phone] [phone] ([facility] 05/22/2018 Patient Education: Patient [...] allergy spray. 04/20/2018 Appointment: [phone] [phone] (15 min) Moderate 04/20/2018 Patient Education: Patient Medication Summary Completed 04/20/2018 Appointment: Lab Draw 12/14/2017 Patient Education: Patient Medication Summary Completed 12/14/2017 [phone] [phone] ([facility] min) Moderate 11/28/2017 Visit Plan: Hypertension [...] culture report. 11/14/2017 Appointment: [phone] [phone] ([facility] min) Moderate 11/14/2017 Patient Education: Patient [...] this patient. 08/15/2017 Appointment: Mary Alan WPtel: [phone] [facility] (30 min) Complex 08/15/2017 Patient Education: Patient Medication Summary Completed 08/15/2017 Appointment: Mary Alantel: [phone] [facility] (15 min) Moderate 08/08/2017 Appointment: Mary Alan WPtel: [phone] [facility] (15 min) Moderate 08/03/2017 Visit Plan: Cauda [...] symptoms. 06/29/2017 Appointment: Mary Alan WPtel: [phone] [place] [address] [place] (15 min) Moderate 06/29/2017 Patient Education: Patient [...] improve. 03/30/2017 Appointment: [facility] [phone] [phone] ([facility] min) Complex 03/30/2017 Patient Education: Patient Medication Summary Completed 03/30/2017 Visit Plan: Cough-suspect virus-patient to monitor over the weekend-call Monday if symptoms persist and we will do a chest xray and sputum culture Cdiff-treat with flagyl as directed-call if symptoms do not resolve 10/07/2016 Appointment: [facility]ramanian [facility]el[facility] [phone] [phone] [place] (30 min) Complex 10/07/2016 Patient Education: Patient Medication Summary Completed 10/07/2016 Patient Education: Obesity Completed 10/07/2016 Visit Plan: Cauda equina-chronic back pain-generalized weakness- right shoulder pain/weakness-patient to contact [facility] for mobility paperwork-will ask PT to do a mobility exam through [facility] Drug induced constipation-rx for movantik. 07/01/2016 Visit Plan: Cauda equina-chronic back pain-generalized weakness- bilateral shoulder pain/weakness-OA knees-patient to contact [facility] for mobility paperwork-will ask PT to do a mobility exam through [facility]. Patient is non ambulatory due to cauda [...] for movantik. 07/01/2016 Appointment: Kavya Subramanian WPtel: [phone] [place] (30 min) Complex 07/01/2016 Patient Education: Patient [...] his surgery. 05/05/2016 Appointment: Mary Alan WPtel: [phone] [facility] 05/05/2016 Patient Education: Patient Medication [...] Ramez godoy. 02/23/2016 Appointment: Mary Alan WPtel: [address] [place], [place] [phone] (30 min) Complex 02/23/2016 Patient Education: Patient Medication Summary Completed 02/23/2016 Appointment: Mary Alan WPtel: [phone] (30 min) Complex 02/19/2016 Appointment: Darleen Aburto WPtel: [address] [place], [place] [phone] (15 min) Moderate 10/14/2015 Appointment: Lab Draw [...] having loose bowel movements. Keep appointment with Human Service Technician Make an appointment with circulation manager - to follow up on shortness of breath. Weakness - pt is to contact Ramez Godoy in [facility] and Call clinic when he is [...] not improved. 07/24/2015 Appointment: Kavya Subramanian WPtel: [phone] (30 min) Complex 07/24/2015 Patient Education: Patient [...] and hypertension. 09/15/2014 Appointment: Darleen [facility]ur[facility] WPtel: [facility] ([facility] min) Moderate 09/15/2014 Patient Education: Patient [...] equina-increased incontinence of bowels-recommend follow up with sterilization specialist-will discuss repeat MRI with Dr Aburto-keep [...] do PT evaluation for motorized wheelchair through [employer] . Cauda equina-chronic back pain-generalized weakness-right shoulder pain/weakness- patient to contact [employer] for mobility paperwork-will ask PT to do a mobility exam through [employer] Drug induced constipation-rx for movantik. Nikolai Montalvo to do PT evaluation for motorized wheelchair through [employer] . Cauda equina-chronic back pain-generalized weakness-bilateral shoulder pain/weakness- OA knees-patient to contact [employer] for mobility paperwork-will ask PT to do a mobility exam through [employer]. Patient is non ambulatory due to cauda [...] incontinence of bowels- recommend follow up with sterilization specialist-will discuss repeat MRI with Dr Aburto-keep [...] (start tomorrow) let us know what your circulation manager says at your appointment chest x-ray if [...] chair - will have pt contact Ramez Goldman [facility]. . Cauda Equina, weakness, gait instability - [...] Peng 4. Make an appointment with your circulation manager - to follow up on shortness of breath. 5. Call us when you here about the mobility paperwork and we will fill out the paperwork. Ramez Godoy in [facility] . Hypertension - The patient has [...] having loose bowel movements. Keep appointment with Human Service Technician Make an appointment with circulation manager - to follow up on shortness of breath. Weakness - pt is to contact Ramez Godoy in [facility] and Call clinic when he is [...] 2 pills daily. Will consult Tiffany Bullard Dyer PT. Cauda Equina - stable - continue [...]
--- NOTE | 2018-07-19 08:53 | Diagnostic Imaging Report ---
INDICATION: Post bronchoscopy. Time of exam: 8:33 AM Correlation is made with prior chest from 05/22/2018. Changes of median sternotomy are identified. The mediastinum is prominent, similar to prior study and when correlated with prior CT this most likely represents mediastinal fat. There are some interstitial changes throughout both lungs. A small amount of pleural fluid or pleural thickening in the right base. No pneumothorax is seen status post bronchoscopy. IMPRESSION: Chronic interstitial changes and small right pleural effusion/pleural thickening. No pneumothorax is detected. Dictated by: Dictated on workstation # [id number]
--- OUTSIDE RECORDS SUMMARY | 2018-07-19 08:55 | XMS REPORT | CCD ---
Author Author Kavya Subramanian Organization [facility] Address [address] [place] [address] Phone Care Team Providers Care Detonator Assembler Name Role Phone PP Unavailable CCM Unavailable Summary Purpose Interface Exchange Insurance Providers Payer name Policy type / Coverage type Covered alliance party ID Effective Begin Date Effective End Date WPS Medicare Part B Commercial Insurance [id number] Unknown Unknown [employer]ALTH[employer]ICE Commercial Insurance [id number] Unknown Unknown Family history Father Diagnosis Age At Onset Coronary Artery Disease Unknown Mother Diagnosis Age At Onset Arthritis Unknown Sister Diagnosis Age At Onset Alzheimer's Disease Unknown Social History Social History Element Codes Description Effective Dates Marital status Unknown 07/04/2014 Number of children Unknown 2 07/04/2014 Living arrangements Unknown House 07/04/[address]: 1067960 Quit over 10 years ago 07/04/2014 Alcohol history Unknown occasionally drinks alcohol 07/04/2014 Frequency of drinks SNOMED CT: 443300494 Drinks rarely 07/04/2014 Allergies, Adverse Reactions, Alerts Substance Reaction Codes Entered Date Inactivated Date Status * NO KNOWN FOOD ALLERGIES Unknown 07/04/2014 No Inactive Date Active Iodine rash, pruritis, RxNorm: 5933 03/04/2015 No Inactive Date Active tramadol pruritis RxNorm: 77408 07/04/2014 No Inactive Date Active Past Medical [...] Start Date Stop Date Status Fill Instructions oxycodone 5 mg tablet RxNorm: 3628625 4 Tablet(s) PO daily 06/27/2018 09/09/2018 Active doxycycline hyclate 100 mg tablet RxNorm: 7523146 1 Tablet(s) PO BID 06/01/2018 06/10/2018 Inactive doxycycline hyclate 100 mg tablet RxNorm: 1343083 1 Tablet(s) PO BID 06/01/2018 05/31/2018 Inactive Zithromax Z-Win 250 mg tablet RxNorm: 981695 Tablet(s) PO UD 05/22/2018 No Stop Date Active albuterol sulfate 2.5 mg/3 mL (0.083 %) solution for nebulization RxNorm: 398116 3 Milliliter(s) INH UD 05/22/2018 No Stop Date Active cefdinir 300 mg capsule RxNorm: 685916 1 Capsule(s) PO BID 05/22/2018 05/31/2018 Inactive ceftriaxone 500 mg solution for injection RxNorm: 1909168 2 Milliliter(s) Inj 05/22/2018 05/22/2018 Inactive diclofenac sodium 75 mg tablet,delayed release RxNorm: 111711 1 TABLET(S) PO BID 05/14/2018 02/07/2019 Active gabapentin 600 mg tablet RxNorm: 001791 TABLET(S) TAKE 1 TABLET BY MOUTH TWICE DAILY 04/23/2018 04/17/2019 Active prednisone 20 mg tablet RxNorm: 299766 2 Tablet(s) PO daily 04/20/2018 04/24/2018 Inactive Kenalog 40 mg/mL suspension for injection RxNorm: 8513857 Milliliter(s) Inj 04/20/2018 04/20/2018 Inactive Augmentin 500 mg-125 mg tablet RxNorm: 974163 1 Tablet(s) PO TID 04/20/2018 04/26/2018 Inactive oxycodone 5 mg tablet RxNorm: 1464750 4 Tablet(s) PO daily 04/12/2018 06/25/2018 Inactive potassium chloride ER 20 mEq tablet,extended release RxNorm: 103638 1 TABLET(S) PO DAILY 03/09/2018 03/03/2019 Active oxycodone 5 mg tablet RxNorm: 2754051 4 Tablet(s) PO daily 01/18/2018 04/02/2018 Inactive Augmentin 500 mg-125 mg tablet RxNorm: 286106 1 Tablet(s) PO TID 12/14/2017 12/23/2017 Inactive take probiotic bid x 10 days pantoprazole 40 mg tablet,delayed release RxNorm: 018982 TAKE 1 TABLET BY MOUTH DAILY 12/11/2017 12/05/2018 Active Augmentin 500 mg-125 mg tablet RxNorm: 101122 1 Tablet(s) PO TID 11/17/2017 11/22/2017 Inactive take probiotic bid x 7 days lisinopril 40 mg tablet RxNorm: 879504 TAKE 1 TABLET BY MOUTH DAILY 11/06/2017 08/02/2018 Active oxycodone 5 mg tablet RxNorm: 0715851 4 Tablet(s) PO daily 10/16/2017 12/29/2017 Inactive Cymbalta 30 mg capsule,delayed release RxNorm: 423373 2 Capsule(s) PO daily 08/17/2017 02/12/2018 Inactive Zoloft 25 mg tablet RxNorm: 520815 1 TABLET(S) PO DAILY X 5 DAYS THEN INCREASE TO 50MG DAILY 08/16/2017 No Stop Date Active Cymbalta 30 mg capsule,delayed release RxNorm: 229036 1 Capsule(s) PO 1 CAPSULE(S) PO DAILY X 1 WEEK, THEN INCREASE TO 2 DAILY 08/15/2017 08/16/2017 Inactive Patient requests 90 days supply diclofenac sodium 75 mg tablet,delayed release RxNorm: 094614 1 TABLET(S) PO BID 08/14/2017 05/10/2018 Inactive oxycodone 5 mg tablet RxNorm: 6519508 4 Tablet(s) PO daily 08/01/2017 10/14/2017 Inactive valacyclovir 1 gram tablet RxNorm: 206427 1 Tablet(s) PO TID 07/12/2017 07/11/2017 Inactive Zoloft 50 mg tablet RxNorm: 856195 1 Tablet(s) PO daily 07/12/2017 08/01/2017 Inactive valacyclovir 1 gram tablet RxNorm: 426663 1 Tablet(s) PO TID 07/12/2017 07/18/2017 Inactive Zoloft 50 mg tablet RxNorm: 347760 1 Tablet(s) PO daily 07/12/2017 07/11/2017 Inactive Zoloft 25 mg tablet RxNorm: 700998 1 Tablet(s) PO daily x 5 days then increase to 50mg daily 07/11/2017 07/11/2017 Inactive Cymbalta 30 mg capsule,delayed release RxNorm: 664523 1 Capsule(s) PO daily x 1 week, then increase to 2 daily 06/30/2017 06/29/2017 Inactive Cymbalta 30 mg capsule,delayed release RxNorm: 835046 1 CAPSULE(S) PO DAILY X 1 WEEK, THEN INCREASE TO 2 DAILY 06/30/2017 07/04/2017 Inactive Patient requests 90 days supply Augmentin 875 mg-125 mg tablet RxNorm: 614260 1 Tablet(s) PO BID 05/22/2017 05/28/2017 Inactive Probiotic QID while on antibiotics Bactrim DS 800 mg-160 mg tablet RxNorm: 549122 1 Tablet(s) PO BID 05/22/2017 05/21/2017 Inactive Probiotic QID while on antibiotics Bactrim DS 800 mg-160 mg tablet RxNorm: 506973 1 Tablet(s) PO BID 05/22/2017 05/28/2017 Inactive Probiotic QID while on antibiotics Augmentin 875 mg-125 mg tablet RxNorm: 416581 1 Tablet(s) PO BID 05/22/2017 05/21/2017 Inactive Probiotic QID while on antibiotics Cipro 500 mg tablet RxNorm: 907262 1 Tablet(s) PO BID 04/21/2017 04/30/2017 Inactive Take probiotic while on ABT Cipro 500 mg tablet RxNorm: 742911 1 Tablet(s) PO BID 04/21/2017 04/20/2017 Inactive Diflucan 150 mg tablet RxNorm: 927710 1 Tablet(s) PO daily 04/19/2017 11/13/2017 Inactive Diflucan 150 mg tablet RxNorm: 624359 1 Tablet(s) PO daily 04/19/2017 04/18/2017 Inactive oxycodone 5 mg tablet RxNorm: 5178051 4 Tablet(s) PO daily 04/17/2017 06/30/2017 Inactive gabapentin 600 mg tablet RxNorm: 127935 TABLET(S) TAKE 1 TABLET BY MOUTH TWICE DAILY 04/14/2017 04/08/2018 Inactive Rocephin 1 gram solution for injection RxNorm: 355445 1 Inj daily 04/05/2017 04/11/2017 Inactive Rocephin 1 gram solution for injection RxNorm: 770659 1 Inj daily 04/04/2017 04/04/2017 Inactive lidocaine (PF) 10 mg/mL (1 %) injection solution RxNorm: 2253532 1 Milliliter(s) Inj daily 04/04/2017 04/10/2017 Inactive Use to administer rocephin lidocaine (PF) 10 mg/mL (1 %) injection solution RxNorm: 1080806 1 Milliliter(s) Inj daily 04/04/2017 04/03/2017 Inactive Use to administer rocephin Rocephin 1 gram solution for injection RxNorm: 160111 1 Inj daily 04/04/2017 04/03/2017 Inactive Augmentin 500 mg-125 mg tablet RxNorm: 858374 1 Tablet(s) PO TID 03/31/2017 04/03/2017 Inactive Augmentin 500 mg-125 mg tablet RxNorm: 704756 1 Tablet(s) PO TID 03/31/2017 03/30/2017 Inactive Effexor XR 75 mg capsule,extended release RxNorm: 641937 TAKE 3 CAPSULES BY MOUTH EVERY MORNING 03/24/2017 11/13/2017 Inactive potassium chloride ER 20 mEq tablet,extended release RxNorm: 024452 1 TABLET(S) PO DAILY 03/13/2017 03/07/2018 Inactive lisinopril 40 mg tablet RxNorm: 889782 TAKE 1 TABLET BY MOUTH DAILY 02/06/2017 11/02/2017 Inactive pantoprazole 40 mg tablet,delayed release RxNorm: 981295 TAKE 1 TABLET BY MOUTH DAILY 12/19/2016 12/10/2017 Inactive oxycodone 5 mg tablet RxNorm: 5234678 4 Tablet(s) PO daily 12/19/2016 03/03/2017 Inactive diclofenac sodium 75 mg tablet,delayed release RxNorm: 229830 1 TABLET(S) PO BID 11/17/2016 08/13/2017 Inactive gabapentin 600 mg tablet RxNorm: 861532 TABLET(S) TAKE 1 TABLET BY MOUTH TWICE DAILY 10/14/2016 04/11/2017 Inactive Flagyl 500 mg tablet RxNorm: 878366 1 Tablet(s) PO TID 10/07/2016 10/16/2016 Inactive oxycodone 5 mg tablet RxNorm: 6309313 4 Tablet(s) PO daily 10/03/2016 12/16/2016 Inactive Effexor XR 75 mg capsule,extended release RxNorm: 960514 TAKE 3 CAPSULES BY MOUTH EVERY MORNING 09/22/2016 11/20/2016 Inactive Patient requests 90 days supply lisinopril 40 mg tablet RxNorm: 702909 TAKE 1 TABLET BY MOUTH DAILY 08/01/2016 01/27/2017 Inactive Effexor XR 75 mg capsule,extended release RxNorm: 384912 TAKE 3 CAPSULES BY MOUTH EVERY MORNING 07/21/2016 09/21/2016 Inactive oxycodone 5 mg tablet RxNorm: 7457820 4 Tablet(s) PO daily 07/11/2016 09/23/2016 Inactive Movantik 25 mg tablet RxNorm: 0180478 1 Tablet(s) PO daily 07/01/2016 11/13/2017 Inactive potassium chloride ER 20 mEq tablet,extended release RxNorm: 128043 1 TABLET(S) PO DAILY 06/14/2016 03/10/2017 Inactive Flagyl 500 mg tablet RxNorm: 592870 1 Tablet(s) PO TID 06/03/2016 06/12/2016 Inactive Flagyl 500 mg tablet RxNorm: 314812 1 Tablet(s) PO TID 06/03/2016 06/02/2016 Inactive oxycodone 5 mg tablet RxNorm: 1061167 4 Tablet(s) PO daily 04/27/2016 07/10/2016 Inactive Tamiflu 75 mg capsule RxNorm: 434494 1 Capsule(s) PO daily 04/19/2016 04/28/2016 Inactive Tamiflu 75 mg capsule RxNorm: 112926 1 Capsule(s) PO daily 04/19/2016 04/18/2016 Inactive Effexor XR 75 mg capsule,extended release RxNorm: 748857 TAKE 3 CAPSULES BY MOUTH EVERY MORNING 02/18/2016 04/17/2016 Inactive diclofenac sodium 75 mg tablet,delayed release RxNorm: 506812 1 TABLET(S) PO BID 02/18/2016 11/13/2016 Inactive Effexor XR 75 mg capsule,extended release RxNorm: 351750 Capsule(s) TAKE 3 CAPSULES BY MOUTH EVERY MORNING 02/17/2016 08/14/2016 Inactive oxycodone 5 mg tablet RxNorm: 0971250 4 Tablet(s) PO daily 02/04/2016 04/26/2016 Inactive clopidogrel 75 mg tablet RxNorm: 501706 1 TABLET(S) PO QAM 02/01/2016 01/25/2017 Inactive gabapentin 600 mg tablet RxNorm: 627665 Tablet(s) TAKE 1 TABLET BY MOUTH TWICE DAILY 02/01/2016 10/13/2016 Inactive Effexor XR 75 mg capsule,extended release RxNorm: 374572 TAKE 3 CAPSULES BY MOUTH EVERY MORNING 01/11/2016 02/09/2016 Inactive pantoprazole 40 mg tablet,delayed release RxNorm: 857925 TAKE 1 TABLET BY MOUTH DAILY 12/22/2015 12/15/2016 Inactive Effexor XR 75 mg capsule,extended release RxNorm: 532644 TAKE 3 CAPSULES BY MOUTH EVERY MORNING 11/16/2015 01/14/2016 Inactive lisinopril 40 mg tablet RxNorm: 257663 TAKE 1 TABLET BY MOUTH DAILY 11/05/2015 07/31/2016 Inactive Effexor XR 75 mg capsule,extended release RxNorm: 569068 TAKE 3 CAPSULES BY MOUTH EVERY MORNING 09/22/2015 11/20/2015 Inactive Augmentin 500 mg-125 mg tablet RxNorm: 838351 1 Tablet(s) PO TID 09/18/2015 09/24/2015 Inactive Anoro Ellipta 62.5 mcg-25 mcg/actuation powder for inhalation RxNorm: 2970396 1 INH daily 08/20/2015 02/15/2016 Inactive Anoro Ellipta 62.5 mcg-25 mcg/actuation powder for inhalation RxNorm: 1089051 1 INH DAILY 08/20/2015 11/13/2017 Inactive lisinopril 40 mg tablet RxNorm: 951091 TAKE 1 TABLET BY MOUTH DAILY 08/10/2015 11/04/2015 Inactive gabapentin 600 mg tablet RxNorm: 777619 TAKE 1 TABLET BY MOUTH TWICE DAILY 08/10/2015 01/31/2016 Inactive terazosin 2 mg capsule RxNorm: 344617 TAKE ONE CAPSULE BY MOUTH EVERY DAY 07/27/2015 08/29/2016 Inactive hyoscyamine 0.125 mg sublingual tablet RxNorm: 1684386 1 Tablet(s) SL TID as needed 07/24/2015 08/02/2015 Inactive metronidazole 500 mg tablet RxNorm: 540842 1 Tablet(s) PO TID 07/24/2015 07/30/2015 Inactive Effexor XR 75 mg capsule,extended release RxNorm: 595654 TAKE 3 CAPSULES BY MOUTH EVERY MORNING 07/23/2015 09/20/2015 Inactive oxycodone 5 mg tablet RxNorm: 6319135 4 Tablet(s) PO daily 06/26/2015 02/03/2016 Inactive potassium chloride ER 20 mEq tablet,extended release RxNorm: 486921 1 Tablet(s) PO daily 06/25/2015 06/13/2016 Inactive oxycodone 5 mg tablet RxNorm: 2819446 4 Tablet(s) PO daily 04/17/2015 06/25/2015 Inactive rx written Anoro Ellipta 62.5 mcg-25 mcg/actuation powder for inhalation RxNorm: 0620365 1 INH daily 04/17/2015 08/19/2015 Inactive potassium chloride ER 20 mEq tablet,extended release RxNorm: 417026 1 Tablet(s) PO daily 03/23/2015 06/24/2015 Inactive triamcinolone acetonide 0.1 % topical cream RxNorm: 1655403 1 Application TOP BID 03/20/2015 No Stop Date Active carvedilol 12.5 mg tablet RxNorm: 869712 1 TABLET(S) PO BID 02/23/2015 08/21/2015 Inactive diclofenac sodium 75 mg tablet,delayed release RxNorm: 816411 1 Tablet(s) PO BID 02/18/2015 02/12/2016 Inactive carvedilol 12.5 mg tablet RxNorm: 156963 1 Tablet(s) PO BID 02/17/2015 02/11/2016 Inactive furosemide 40 mg tablet RxNorm: 157947 1 Tablet(s) PO daily 02/17/2015 02/11/2016 Inactive lisinopril 40 mg tablet RxNorm: 314022 TAKE 1 TABLET BY MOUTH DAILY 02/16/2015 08/09/2015 Inactive ceftriaxone 1 gram solution for injection RxNorm: 6321371 1 Gram(s) Inj daily mix with lidocaine 01/14/2015 01/17/2015 Inactive please supply 4 bottles of 1gram rocephin IM with 1 bottle of lidocaine 1% for home health to administer to pt starting 01/15 ceftriaxone 1 gram solution for injection RxNorm: 8742287 1 Gram(s) Inj daily 01/14/2015 01/13/2015 Inactive please supply 4 bottles of 1gram rocephin IM with 1 bottle of lidocaine 1% for home health to administer to pt starting 01/15 Augmentin 500 mg-125 mg tablet RxNorm: 877833 1 Tablet(s) PO BID 01/13/2015 01/22/2015 Inactive Keflex 500 mg capsule RxNorm: 171812 1 Capsule(s) PO TID 12/12/2014 12/11/2014 Inactive Keflex 500 mg capsule RxNorm: 333023 1 Capsule(s) PO TID 12/12/2014 12/17/2014 Inactive Augmentin 500 mg-125 mg tablet RxNorm: 111866 1 Tablet(s) PO BID 11/28/2014 12/02/2014 Inactive Augmentin 500 mg-125 mg tablet RxNorm: 448078 1 Tablet(s) PO BID 11/28/2014 11/27/2014 Inactive Cipro 500 mg tablet RxNorm: 463257 1 Tablet(s) PO BID 11/24/2014 11/27/2014 Inactive gabapentin 600 mg tablet RxNorm: 254984 1 Tablet(s) PO BID 11/17/2014 08/13/2015 Inactive gabapentin 600 mg tablet RxNorm: 791677 1 Tablet(s) PO BID 11/17/2014 11/16/2014 Inactive oxycodone 5 mg tablet RxNorm: 1836702 4 Tablet(s) PO daily 11/07/2014 02/04/2015 Inactive rx written Effexor XR 75 mg capsule,extended release RxNorm: 095107 3 Capsule(s) 225 PO QAM 11/05/2014 03/04/2015 Inactive clopidogrel 75 mg tablet RxNorm: 386515 1 Tablet(s) PO QAM 11/05/2014 01/28/2016 Inactive Effexor XR 75 mg capsule,extended release RxNorm: 713341 3 Capsule(s) 225 PO QAM 11/03/2014 11/04/2014 Inactive carvedilol 12.5 mg tablet RxNorm: 596874 1 Tablet(s) PO BID 10/28/2014 02/16/2015 Inactive Effexor XR 75 mg capsule,extended release RxNorm: 286987 3 Capsule(s) 225 PO QAM 10/28/2014 11/02/2014 Inactive Effexor XR 75 mg capsule,extended release RxNorm: 622889 3 Capsule(s) 225 PO QAM 10/28/2014 10/27/2014 Inactive carvedilol 12.5 mg tablet RxNorm: 747302 1 Tablet(s) PO BID 10/28/2014 10/27/2014 Inactive ceftriaxone 1 gram solution for injection RxNorm: 6910783 Inj 09/05/2014 09/05/2014 Inactive Cipro 500 mg tablet RxNorm: 590947 1 Tablet(s) PO BID 09/04/2014 09/03/2014 Inactive Cipro 500 mg tablet RxNorm: 994693 1 Tablet(s) PO BID 09/04/2014 09/10/2014 Inactive oxycodone 5 mg tablet RxNorm: 1975464 4 Tablet(s) PO daily 08/20/2014 11/06/2014 Inactive rx written lisinopril 40 mg tablet RxNorm: 539731 TAKE 1 TABLET BY MOUTH DAILY 08/18/2014 02/13/2015 Inactive nystatin 100,000 unit/mL oral suspension RxNorm: 139127 5 Milliliter(s) PO QID 07/04/2014 07/13/2014 Inactive [SAVINGS FOR NON-COVERED DRUGS -- BIN:[id number], PCN: [id number], Group: [id number], ID# [id number], Questions: . THIS IS NOT INSURANCE.] WelChol 3.75 gram oral powder packet RxNorm: 013171 1 PO BID No Start Date Active amlodipine 10 mg tablet RxNorm: 340418 1 Tablet(s) PO QAM No Start Date Active One A Day oral RxNorm: 17334 oral No Start Date Active Vitamin D2 400 unit capsule RxNorm: 853817 1 Capsule(s) PO daily No Start Date Active aspirin 81 mg tablet,delayed release RxNorm: 881596 1 Tablet(s) PO daily No Start Date Active melatonin 5 mg disintegrating tablet RxNorm: 0507191 1 Tablet(s) PO QHS No Start Date Active Miralax 17 gram/dose oral powder RxNorm: 254854 17 Gram(s) PO daily in prune juice No Start Date Active clonidine HCl 0.1 mg tablet RxNorm: 776909 1 Tablet(s) PO QHS No Start Date Active hydrochlorothiazide oral RxNorm: 5487 oral No Start Date Active Lasix oral RxNorm: 762040 oral No Start Date 02/17/2015 Inactive potassium chloride 20 meq RxNorm: 498244 PO daily No Start Date 03/22/2015 Inactive Zoloft 25 mg tablet RxNorm: 038580 1 Tablet(s) PO daily x 5 days then increase to 50mg daily No Start Date 07/10/2017 Inactive oxycodone 5 mg tablet RxNorm: 1208715 3-4 Tablet(s) PO QHS No Start Date 08/19/2014 Inactive terazosin 2 mg capsule RxNorm: 984544 1 Capsule(s) PO daily No Start Date 07/26/2015 Inactive Effexor XR 75 mg capsule,extended release RxNorm: 920855 3 Capsule(s) 225 PO QAM No Start Date 10/27/2014 Inactive gabapentin 600 mg tablet RxNorm: 489697 1 Tablet(s) PO BID No Start Date 11/16/2014 Inactive pantoprazole 40 mg tablet,delayed release RxNorm: 279596 oral No Start Date 12/21/2015 Inactive Anoro Ellipta 62.5 mcg-25 mcg/actuation powder for inhalation RxNorm: 3530019 1 INH daily No Start Date 04/16/2015 Inactive diclofenac sodium 75 mg tablet,delayed release RxNorm: 135949 1 Tablet(s) PO BID No Start Date 02/17/2015 Inactive clopidogrel 75 mg tablet RxNorm: 774256 1 Tablet(s) PO QAM No Start Date 11/04/2014 Inactive lisinopril 40 mg tablet RxNorm: 996312 1 Tablet(s) PO daily No Start Date 08/17/2014 Inactive carvedilol 12.5 mg tablet RxNorm: 417672 1 Tablet(s) PO BID No Start Date 10/27/2014 Inactive Medication Administered Medication Codes Instructions Start Date Status ceftriaxone 500 mg solution for injection RxNorm: 7838733 2Milliliter 05/22/2018 No longer Active Kenalog 40 mg/mL suspension for injection RxNorm: 7038169 Milliliter 04/20/2018 No longer Active ceftriaxone 1 gram solution for injection RxNorm: 4672839 09/05/2014 No longer Active Immunizations Vaccine Codes [...] 20.6 % 05/22/2018 Cbc With Differential Ord2 [place]% 14.7 % 05/22/2018 Cbc With Differential Ord2 [...] 2.01 K/ul 05/22/2018 Cbc With Differential Ord2 [place] ABS# 1.4 K/ul 05/22/2018 Cbc With Differential Ord2 Eos ABS# 0.4 K/ul 05/22/2018 Cbc With Differential Ord2 Baso ABS# 0.0 K/ul 05/22/2018 Comp Metabolic Gsv864 NA 136 mEq/L 05/22/2018 Comp Metabolic Jot222 K 4.7 mEq/L 05/22/2018 Comp Metabolic Vkr220 CL 104 mEq/L 05/22/2018 Comp Metabolic Kaq652 CO2 23.0 mEq/L 05/22/2018 Comp Metabolic Ddm285 ANION GAP 14 05/22/2018 Comp Metabolic Vwh880 GLUCOSE 113 mg/dL 05/22/2018 Comp Metabolic Hgz522 Creat 1.6 mg/dL 05/22/2018 Comp Metabolic Agd527 eGFR 46 ml/min/1.73m2 05/22/2018 Comp Metabolic Oce032 BUN 21 mg/dL 05/22/2018 Comp Metabolic Szb535 B/C Ratio 13.5 Ratio 05/22/2018 Comp Metabolic Xpr310 CALCIUM 8.6 mg/dL 05/22/2018 Comp Metabolic Duh178 ALK PHOS 84 U/L 05/22/2018 Comp Metabolic Kth994 AST(SGOT) 17 U/L 05/22/2018 Comp Metabolic Jnw269 ALT(SGPT) 22 U/L 05/22/2018 Comp Metabolic Ong806 BILI T 0.5 mg/dL 05/22/2018 Comp Metabolic Thd988 ALBUMIN 3.4 g/dL 05/22/2018 Comp Metabolic Vjo469 TPRO 6.6 g/dL 05/22/2018 Comp Metabolic Jyo264 GLOB 3.2 g/dL 05/22/2018 Comp Metabolic Ycy817 A/G Ratio 1.0 Ratio 05/22/2018 Comp Metabolic Hda317 Osmo 276 mOsmo 05/22/2018 B Type Natriuretic Peptide Chc6536 B-MOVIE [employer]T PERFORMER 258.00 pg/ml 05/22/2018 Magnesium Ord90 Mag 2.3 mg/dL 05/22/2018 Urine Culture Ucult Complete >100,000 col/ml aerobic growth sent to ref lab 12/15/2017 Lipid Ord30 CHOL 128 mg/dL 11/14/2017 Lipid Ord30 HDL 24.0 mg/dl 11/14/2017 Lipid Ord30 TRIG 206 mg/dL 11/14/2017 Lipid Ord30 LDL 63 mg/dL 11/14/2017 Lipid Ord30 C/HDL 5.3 Ratio 11/14/2017 Tsh Ord6 TSH (3rd IS) 3.24 uIU/mL 11/14/2017 Comp Metabolic Gmb344 NA 137 mEq/L 11/14/2017 Comp Metabolic Wja846 K 4.0 mEq/L 11/14/2017 Comp Metabolic Yuf338 CL 104 mEq/L 11/14/2017 Comp Metabolic Pew514 CO2 23.0 mEq/L 11/14/2017 Comp Metabolic Tyl407 ANION GAP 14 11/14/2017 Comp Metabolic Yrq665 GLUCOSE 101 mg/dL 11/14/2017 Comp Metabolic Lbv672 Creat 1.1 mg/dL 11/14/2017 Comp Metabolic Zor355 eGFR 67 ml/min/1.73m2 11/14/2017 Comp Metabolic Yja776 BUN 18 mg/dL 11/14/2017 Comp Metabolic Ess146 B/C Ratio 15.9 Ratio 11/14/2017 Comp Metabolic Fou146 CALCIUM 9.0 mg/dL 11/14/2017 Comp Metabolic Djq884 ALK PHOS 81 U/L 11/14/2017 Comp Metabolic Pvh048 AST(SGOT) 19 U/L 11/14/2017 Comp Metabolic Iay055 ALT(SGPT) 18 U/L 11/14/2017 Comp Metabolic Mnk402 BILI T 0.3 mg/dL 11/14/2017 Comp Metabolic Lwv233 ALBUMIN 3.8 g/dL 11/14/2017 Comp Metabolic Svd791 TPRO 7.3 g/dL 11/14/2017 Comp Metabolic Ihr656 GLOB 3.5 g/dL 11/14/2017 Comp Metabolic Fud737 A/G Ratio 1.1 Ratio 11/14/2017 Comp Metabolic Dad141 Osmo 276 mOsmo 11/14/2017 Cbc With Differential [...] 29.9 pg 11/14/2017 Cbc With Differential Ord2 [place]% 11.2 % 11/14/2017 Cbc With Differential Ord2 [...] 1.85 K/ul 11/14/2017 Cbc With Differential Ord2 [place] ABS# 1.0 K/ul 11/14/2017 Cbc With Differential Ord2 Eos ABS# 0.6 K/ul 11/14/2017 Cbc With Differential Ord2 Baso ABS# 0.0 K/ul 11/14/2017 Culture Urine [id number] URINE CULTURE SEE NOTES 05/22/2017 Culture Urine [id number] Continued Results 05/22/2017 Urine Culture Ucult Complete >100,000 col/ml aerobic growth sent to ref lab 05/16/2017 Culture Urine [id number] URINE CULTURE SEE NOTES 04/21/2017 Urine Culture [...] 30.9 pg 03/30/2017 Cbc With Differential Ord2 [place]% 13.0 % 03/30/2017 Cbc With Differential Ord2 [...] 1.69 K/ul 03/30/2017 Cbc With Differential Ord2 [place] ABS# 0.9 K/ul 03/30/2017 Cbc With Differential Ord2 Eos ABS# 0.5 K/ul 03/30/2017 Cbc With Differential Ord2 Baso ABS# 0.0 K/ul 03/30/2017 %Hba1C Ril991 % HbA1c 91568- 6 5.8 % 03/30/2017 %Hba1C Nhh401 Gluc Ave 120 mg/dL 03/30/2017 Comp Metabolic Lwt498 NA 140 mEq/L 03/30/2017 Comp Metabolic Wgc511 K 4.0 mEq/L 03/30/2017 Comp Metabolic Eem896 CL 105 mEq/L 03/30/2017 Comp Metabolic Asa880 CO2 25.0 mEq/L 03/30/2017 Comp Metabolic Bqy218 ANION GAP 14 03/30/2017 Comp Metabolic Inx828 GLUCOSE 108 mg/dL 03/30/2017 Comp Metabolic Whm334 Creat 1.2 mg/dL 03/30/2017 Comp Metabolic Uhn969 eGFR 63 ml/min/1.73m2 03/30/2017 Comp Metabolic Qhb979 BUN 20 mg/dL 03/30/2017 Comp Metabolic Wsd628 B/C Ratio 16.9 Ratio 03/30/2017 Comp Metabolic Uyo025 CALCIUM 9.2 mg/dL 03/30/2017 Comp Metabolic Wcq597 ALK PHOS 83 U/L 03/30/2017 Comp Metabolic Emx550 AST(SGOT) 17 U/L 03/30/2017 Comp Metabolic Lln760 ALT(SGPT) 19 U/L 03/30/2017 Comp Metabolic Odg260 BILI T 0.3 mg/dL 03/30/2017 Comp Metabolic Suk306 ALBUMIN 3.9 g/dL 03/30/2017 Comp Metabolic Hay302 TPRO 7.2 g/dL 03/30/2017 Comp Metabolic Uph999 GLOB 3.3 g/dL 03/30/2017 Comp Metabolic Tvx142 A/G Ratio 1.2 Ratio 03/30/2017 Comp Metabolic Sne533 Osmo 283 mOsmo 03/30/2017 Tsh Ord6 TSH (3rd IS) 1.40 uIU/mL 03/30/2017 Clostridium Diff Tox A/B Hot386 Cdiff Positive 06/03/2016 Total Psa PSA 1.53 [...] 31.2 pg 03/20/2015 Cbc With Differential Ord2 [place]% 12.8 % 03/20/2015 Cbc With Differential Ord2 [...] 1.69 K/ul 03/20/2015 Cbc With Differential Ord2 [place] ABS# 0.8 K/ul 03/20/2015 Cbc With Differential Ord2 Eos ABS# 0.6 K/ul 03/20/2015 Cbc With Differential Ord2 Baso ABS# 0.0 K/ul 03/20/2015 Cbc With Differential Ord2 New Analyzer Notice Please note new ref ranges starting 03-04-2015 due to implemntation of new five part differential hematolgy analyzer. 03/20/2015 Total Psa Ord10 PSA 2.25 ng/mL 02/26/2015 Comp Metabolic Nef097 NA 138 mEq/L 02/26/2015 Comp Metabolic Jbz669 K 4.0 mEq/L 02/26/2015 Comp Metabolic Pzx444 CL 103 mEq/L 02/26/2015 Comp Metabolic Prz687 CO2 28.0 mEq/L 02/26/2015 Comp Metabolic Zzy382 ANION GAP 11 02/26/2015 Comp Metabolic Vdj828 GLUCOSE 95 mg/dL 02/26/2015 Comp Metabolic Dqc618 Creat 1.0 mg/dL 02/26/2015 Comp Metabolic Ryr424 eGFR 74 ml/min/1.73m2 02/26/2015 Comp Metabolic Bqd938 BUN 19 mg/dL 02/26/2015 Comp Metabolic Yey043 B/C Ratio 18.3 Ratio 02/26/2015 Comp Metabolic Zvc224 CALCIUM 9.1 mg/dL 02/26/2015 Comp Metabolic Aeo414 ALK PHOS 87 U/L 02/26/2015 Comp Metabolic Rdh083 AST(SGOT) 22 U/L 02/26/2015 Comp Metabolic Erq800 ALT(SGPT) 24 U/L 02/26/2015 Comp Metabolic Jou675 BILI T 0.4 mg/dL 02/26/2015 Comp Metabolic Bli645 ALBUMIN 4.0 g/dL 02/26/2015 Comp Metabolic Ldf636 TPRO 7.4 g/dL 02/26/2015 Comp Metabolic Zes941 GLOB 3.4 g/dL 02/26/2015 Comp Metabolic Xox972 A/G Ratio 1.2 Ratio 02/26/2015 Comp Metabolic Pvg045 Osmo 278 mOsmo 02/26/2015 Culture Urine [id number] URINE CULTURE SEE NOTES 12/15/2014 Culture Urine [id number] Continued Results 12/15/2014 Urine Culture Ucult Complete >100,000 col/ml aerobic growth sent to ref lab 12/12/2014 Comp Metabolic Xib734 NA 136 mEq/L 12/05/2014 Comp Metabolic Ieq780 K 4.3 mEq/L 12/05/2014 Comp Metabolic Gvc227 CL 104 mEq/L 12/05/2014 Comp Metabolic Eux115 CO2 29.0 mEq/L 12/05/2014 Comp Metabolic Vdj507 ANION GAP 7 12/05/2014 Comp Metabolic Gqy534 GLUCOSE 80 mg/dL 12/05/2014 Comp Metabolic Zkq032 Creat 1.1 mg/dL 12/05/2014 Comp Metabolic Aqv242 eGFR 68 ml/min/1.73m2 12/05/2014 Comp Metabolic Yzf193 BUN 21 mg/dL 12/05/2014 Comp Metabolic Lak773 B/C Ratio 18.8 Ratio 12/05/2014 Comp Metabolic Mgh587 CALCIUM 9.3 mg/dL 12/05/2014 Comp Metabolic Xoc684 ALK PHOS 81 U/L 12/05/2014 Comp Metabolic Vbw325 AST(SGOT) 17 U/L 12/05/2014 Comp Metabolic Bsm244 ALT(SGPT) 16 U/L 12/05/2014 Comp Metabolic Tzb742 BILI T 0.3 mg/dL 12/05/2014 Comp Metabolic Wkv217 ALBUMIN 4.0 g/dL 12/05/2014 Comp Metabolic Cge311 TPRO 6.9 g/dL 12/05/2014 Comp Metabolic Tod748 GLOB 2.9 g/dL 12/05/2014 Comp Metabolic Pme386 A/G Ratio 1.4 Ratio 12/05/2014 Comp Metabolic Nad093 Osmo 274 mOsmo 12/05/2014 Cbc With Differential [...] Ord2 RDW 15.0 % 12/05/2014 Culture Urine [id number] URINE CULTURE SEE NOTES 11/27/2014 Culture Urine [id number] Continued Results 11/27/2014 Urine Culture Ucult Complete Growth of aerobe sent to ref lab 11/25/2014 B Type Natriuretic Peptide Ibj8521 B-MOVIE STUNT PERFORMER 121.00 pg/ml 10/08/2014 Cbc With Differential Ord2 [...] Folate Ord36 Folate 22.12 ng/mL 10/08/2014 B12 Nze311 B12 >1500.00 pg/ml 10/08/2014 Comp Metabolic Zhq275 NA 135 mEq/L 10/08/2014 Comp Metabolic Dvg013 K 4.5 mEq/L 10/08/2014 Comp Metabolic Pjf248 CL 104 mEq/L 10/08/2014 Comp Metabolic Opg588 CO2 25.0 mEq/L 10/08/2014 Comp Metabolic Xkm476 ANION GAP 11 10/08/2014 Comp Metabolic Ygu983 GLUCOSE 73 mg/dL 10/08/2014 Comp Metabolic Gto464 Creat 1.1 mg/dL 10/08/2014 Comp Metabolic Uvh248 eGFR 71 ml/min/1.73m2 10/08/2014 Comp Metabolic Rli980 BUN 21 mg/dL 10/08/2014 Comp Metabolic Psn391 B/C Ratio 19.4 Ratio 10/08/2014 Comp Metabolic Uni187 CALCIUM 9.0 mg/dL 10/08/2014 Comp Metabolic Qte739 ALK PHOS 73 U/L 10/08/2014 Comp Metabolic Zph368 AST(SGOT) 15 U/L 10/08/2014 Comp Metabolic Vrb543 ALT(SGPT) 14 U/L 10/08/2014 Comp Metabolic Hnl791 BILI T 0.4 mg/dL 10/08/2014 Comp Metabolic Dqo515 ALBUMIN 4.2 g/dL 10/08/2014 Comp Metabolic Uvh849 TPRO 7.1 g/dL 10/08/2014 Comp Metabolic Huc944 GLOB 2.9 g/dL 10/08/2014 Comp Metabolic Mgz652 A/G Ratio 1.4 Ratio 10/08/2014 Comp Metabolic Rzb895 Osmo 272 mOsmo 10/08/2014 B12 Amy601 B12 554.00 pg/ml 09/16/2014 Tibc Ord40 Iron 108 ug/dl 09/16/2014 Tibc Ord40 UIBC 281 ug/dL 09/16/2014 Tibc Ord40 TIBC 389 ug/dL 09/16/2014 Tibc Ord40 Fe-%Sat 27.8 % 09/16/2014 Folate Ord36 Folate >23.20 ng/mL 09/16/2014 Comp Metabolic Ybg020 NA 134 mEq/L 09/16/2014 Comp Metabolic Xot502 K 4.6 mEq/L 09/16/2014 Comp Metabolic Raw923 CL 103 mEq/L 09/16/2014 Comp Metabolic Ars057 CO2 25.0 mEq/L 09/16/2014 Comp Metabolic Tna825 ANION GAP 11 09/16/2014 Comp Metabolic Lfh254 GLUCOSE 93 mg/dL 09/16/2014 Comp Metabolic Jej438 Creat 1.2 mg/dL 09/16/2014 Comp Metabolic Kno788 eGFR 65 ml/min/1.73m2 09/16/2014 Comp Metabolic Ozm529 BUN 23 mg/dL 09/16/2014 Comp Metabolic Itf067 B/C Ratio 19.8 Ratio 09/16/2014 Comp Metabolic Qxx231 CALCIUM 9.1 mg/dL 09/16/2014 Comp Metabolic Ylb930 ALK PHOS 73 U/L 09/16/2014 Comp Metabolic Eep926 AST(SGOT) 18 U/L 09/16/2014 Comp Metabolic Fef053 ALT(SGPT) 16 U/L 09/16/2014 Comp Metabolic Uub441 BILI T 0.4 mg/dL 09/16/2014 Comp Metabolic Xnf199 ALBUMIN 4.0 g/dL 09/16/2014 Comp Metabolic Iwm435 TPRO 7.1 g/dL 09/16/2014 Comp Metabolic Ykd044 GLOB 3.1 g/dL 09/16/2014 Comp Metabolic Xou587 A/G Ratio 1.3 Ratio 09/16/2014 Comp Metabolic Tie552 Osmo 272 mOsmo 09/16/2014 Cbc With Differential [...] Ord22 FERRITIN 36.2 ng/mL 09/16/2014 Culture Urine [id number] URINE CULTURE SEE NOTES 09/08/2014 Urine Culture [...] Ord2 RDW 17.8 % 09/05/2014 Comp Metabolic Non329 NA 133 mEq/L 09/05/2014 Comp Metabolic Bvg108 K 4.9 mEq/L 09/05/2014 Comp Metabolic Kjd833 CL 99 mEq/L 09/05/2014 Comp Metabolic Lyw433 CO2 26.0 mEq/L 09/05/2014 Comp Metabolic Eis018 ANION GAP 13 09/05/2014 Comp Metabolic Bty990 GLUCOSE 83 mg/dL 09/05/2014 Comp Metabolic Tnd989 Creat 1.5 mg/dL 09/05/2014 Comp Metabolic Ndl483 eGFR 47 ml/min/1.73m2 09/05/2014 Comp Metabolic Gyi726 BUN 28 mg/dL 09/05/2014 Comp Metabolic Hkt880 B/C Ratio 18.3 Ratio 09/05/2014 Comp Metabolic Dpl562 CALCIUM 8.9 mg/dL 09/05/2014 Comp Metabolic Vds236 ALK PHOS 71 U/L 09/05/2014 Comp Metabolic Mct491 AST(SGOT) 18 U/L 09/05/2014 Comp Metabolic Bds845 ALT(SGPT) 29 U/L 09/05/2014 Comp Metabolic Pol500 BILI T 0.6 mg/dL 09/05/2014 Comp Metabolic Yeo794 ALBUMIN 3.8 g/dL 09/05/2014 Comp Metabolic Akd771 TPRO 6.7 g/dL 09/05/2014 Comp Metabolic Kdc313 GLOB 2.9 g/dL 09/05/2014 Comp Metabolic Rxv617 A/G Ratio 1.3 Ratio 09/05/2014 Comp Metabolic Itg224 Osmo 271 mOsmo 09/05/2014 Total Psa Ord10 [...] Procedure Codes Date THER/PROPH/DIAG INJ SC/IM CPT-4: 45928 05/22/2018 ROCEPHIN, PER 250 MG CPT- 4: J0696 05/22/2018 THER/PROPH/DIAG INJ SC/IM CPT-4: 02009 04/20/2018 TRIAMCINOLONE ACET INJ NOS CPT-4: J3301 04/20/2018 URINALYSIS NONAUTO W/O SCOPE CPT-4: 09160 12/14/2017 URINALYSIS NONAUTO W/O SCOPE CPT-4: 44329 05/15/2017 URINALYSIS NONAUTO W/O SCOPE CPT-4: 54762 09/18/2015 ADMIN INFLUENZA VIRUS VAC CPT-4: G0008 12/31/2014 FLU VACC PRSV FREE INC ANTIG Formatting Model/CDA Sections, Assigned to/[place] French CPT-4: 98682Hkbbajs 12/31/2014 URINALYSIS NONAUTO W/O SCOPE CPT-4: 62980 12/10/2014 URINALYSIS NONAUTO W/O SCOPE CPT-4: 46213 11/24/2014 ROCEPHIN, PER 250 MG CPT- 4: J0696 09/05/2014 THER/PROPH/DIAG INJ SC/IM CPT-4: 69165 09/05/2014 URINALYSIS NONAUTO W/O SCOPE CPT-4: 96486 09/04/2014 Vital Signs Date Vital 05/25/2018 Blood [...] 1: 138/60 Code: 8480-6 BMI: 37.2 Code: 60621-4 Heart Rate 1: 79 bpm Height: 5'9" SpO2: 91% Weight: 252 lbs 07/01/2016 Blood Pressure 1: 138/68 Code: 8480-6 BMI: 37.2 Code: 43449-0 Heart Rate 1: 69 bpm Height: 5'9" SpO2: 93% Weight: 252 lbs 05/05/2016 Blood Pressure 1: 136/78 Code: 8480-6 BMI: 39.3 Code: 91687-8 Heart Rate 1: 72 bpm Height: 5'9" SpO2: 97% Weight: 266 lbs 02/23/2016 Blood Pressure 1: 145/70 Code: 8480-6 BMI: 37.5 Code: 39442-6 Heart Rate 1: 80 bpm Height: 5'9" Weight: 254 lbs 09/16/2015 Blood Pressure 1: 140/62 Code: 8480-6 Heart Rate 1: 77 bpm Height: 5'9" SpO2: 93% Weight: 07/24/2015 Blood Pressure 1: 152/68 Code: 8480-6 BMI: 37.7 Code: 20569-3 Heart Rate 1: 73 bpm Height: 5'9" SpO2: 97% Weight: 255 lbs 03/20/2015 Blood Pressure 1: 146/74 Code: 8480-6 BMI: 38.1 Code: 45332-4 Heart Rate 1: 63 bpm Height: 5'9" Weight: 258 lbs 01/13/2015 Blood Pressure 1: 120/58 Code: 8480-6 Heart Rate 1: 52 bpm Height: 5'9" SpO2: 97% Temperature: 37.1 (C) / 98.7 (F) Weight: 12/05/2014 Blood Pressure 1: 134/54 Code: 8480-6 BMI: 36.3 Code: 42389-3 Heart Rate 1: 76 bpm Height: 5'9" SpO2: 93% Weight: 246 lbs 10/03/2014 Blood Pressure 1: 132/60 Code: 8480-6 Heart Rate 1: 76 bpm Height: SpO2: 95% Weight: 254 lbs 09/15/2014 Blood Pressure 1: 120/68 Code: 8480-6 BMI: 37.5 Code: 34896-9 Heart Rate 1: 76 bpm Height: 5'9" SpO2: 93% Weight: 254 lbs 09/05/2014 Blood Pressure 1: 110/50 Code: 8480-6 BMI: 37.4 Code: 77600-4 Heart Rate 1: 79 bpm Height: 5'9" SpO2: 96% Temperature: 36.3 (C) / 97.4 (F) Weight: 253 lbs 07/04/2014 Blood Pressure 1: 138/72 Code: 8480-6 BMI: 37.1 Code: 81562-1 Heart Rate 1: 72 bpm Height: 5'9" [...] discomfort 12/05/2014 occasional ache in chest- seeing rod tape operator in [place]- doing heart cath in October [...] discomfort 10/03/2014 occasional ache in chest- seeing rod tape operator in [place]- doing heart cath in October [...] data Encounters Encounter Performer Location Codes Date 45923 EST. 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 PATIENT, LEVEL III Diagnosis: Acute on chronic combined systolic (congestive) and diastolic (congestive) heart failure[ICD10: I50.43] Diagnosis: Pneumonia due to other specified bacteria[ICD10: J15.8] Mary Aburto MD, [facility] CPT-4: 20812 05/22/2018 28601 EST. PATIENT, LEVEL III Diagnosis: Other acute sinusitis[ICD10: J01.80] Diagnosis: Other allergic rhinitis[ICD10: J30.89] Diagnosis: Cough[ICD10: R05] Mary Aburto MD, [facility] CPT-4: 28715 04/20/2018 ([id number]) 05033 EST. PATIENT, LEVEL IV Diagnosis: Essential (primary) hypertension[ICD10: I10] Diagnosis: Other iron deficiency anemias[ICD10: D50.8] Diagnosis: Weakness[ICD10: R53.1] Darleen Aburto MD, [facility] CPT-4: 78029 11/14/2017 59988 EST. PATIENT, LEVEL IV Diagnosis: Other lesions of oral mucosa[ICD10: K13.79] Diagnosis: Candidal stomatitis[ICD10: B37.0] Diagnosis: Generalized anxiety disorder[ICD10: F41.1] Diagnosis: Major depressive disorder, single episode, moderate[ICD10: F32.1] Mary Aburto MD, [facility] CPT-4: 48182 08/15/2017 16804 EST. PATIENT, LEVEL III Diagnosis: Generalized anxiety disorder[ICD10: F41.1] Diagnosis: Cauda equina syndrome[ICD10: G83.4] Diagnosis: Major depressive disorder, single episode, moderate[ICD10: F32.1] Mary Aburto MD, [facility] CPT-4: 03015 06/29/2017 [id number] EST. PATIENT, LEVEL IV Diagnosis: Dysuria[ICD10: R30.0] Diagnosis: Other malaise[ICD10: R53.81] Diagnosis: Cauda equina syndrome[ICD10: G83.4] Diagnosis: Weakness[ICD10: R53.1] Mary Aburto MD, [facility] CPT-4: 13061 03/30/2017 ([id number]) 62359 EST. PATIENT, LEVEL III Diagnosis: Cough[ICD10: R05] Diagnosis: Enterocolitis due to Clostridium difficile[ICD10: A04.7] Kavya Aburto MD, [facility] CPT-4: 26071 10/07/2016 ([id number]) 15303 EST. 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 PATIENT, LEVEL III Diagnosis: Cauda equina syndrome[ICD10: G83.4] Diagnosis: Irritable bowel syndrome with diarrhea[ICD10: K58.0] Mary Aburto MD, [facility] CPT-4: 67521 05/05/2016 27602 EST. PATIENT, LEVEL III Diagnosis: Pain in right shoulder[ICD10: M25.511] Diagnosis: Weakness[ICD10: R53.1] Diagnosis: Shortness of breath[ICD10: R06.02] Mary Aburto MD, [facility] CPT-4: 63873 02/23/2016 35971 EST. PATIENT, LEVEL III Diagnosis: Essential (primary) hypertension[ICD10: I10] Diagnosis: Other insomnia[ICD10: G47.09] Diagnosis: Irritable bowel syndrome with diarrhea[ICD10: K58.0] Diagnosis: Shortness of breath[ICD10: R06.02] Diagnosis: Weakness[ICD10: R53.1] Mary Aburto MD, [facility] CPT-4: 75360 09/16/2015 26537 EST. PATIENT, LEVEL III Diagnosis: Diarrhea, unspecified[ICD10: R19.7] Diagnosis: Nausea[ICD10: R11.0] Mary Aburto MD, [facility] CPT-4: 24638 07/24/2015 13146 EST. PATIENT, LEVEL IV Diagnosis: Other iron deficiency anemias[ICD10: D50.8] Diagnosis: Rash and other nonspecific skin eruption[ICD10: R21] Diagnosis: Cauda equina syndrome[ICD10: G83.4] Diagnosis: Essential (primary) hypertension[ICD10: I10] Diagnosis: Other pruritus[ICD10: L29.8] Diagnosis: Shortness of breath[ICD10: R06.02] Mary Aburto MD, [facility] CPT-4: 87766 03/20/2015 26781 EST. PATIENT, LEVEL IV Diagnosis: Urinary tract infection, site not specified[ICD10: N39.0] Diagnosis: Umbilical hernia without obstruction or gangrene[ICD10: K42.9] Diagnosis: Cauda equina syndrome[ICD10: G83.4] Mary Aburto MD, [facility] CPT- 4: 02994 01/13/2015 ([id number]) 67345 EST. PATIENT, LEVEL IV Diagnosis: Iron deficiency anemia, unspecified[ICD10: D50.9] Diagnosis: Essential (primary) hypertension[ICD10: I10] Diagnosis: Hematuria, unspecified[ICD10: R31.9] Kavya Aburto MD, [facility] CPT-4: 91137 12/05/2014 ([id number]) 59136 EST. PATIENT, LEVEL IV Diagnosis: ESSENTIAL HYPERTENSION[ICD9: 401.9] Diagnosis: COPD (chronic obstructive pulmonary disease)[ICD9: 496] Diagnosis: ANEMIA[ICD9: 285.9] Diagnosis: SHORTNESS OF BREATH[ICD9: 786.05] Kavya Aburto MD, [facility] CPT- 4: 01399 10/03/2014 ([id number]) 43688 EST. PATIENT, LEVEL IV Diagnosis: ESSENTIAL HYPERTENSION[ICD9: 401.9] Diagnosis: ANEMIA[ICD9: 285.9] Diagnosis: MALAISE AND FATIGUE[ICD9: 780.79] Darleen Aburto MD, [facility] CPT- 4: 41262 09/15/2014 ([id number]) 30687 EST. PATIENT, LEVEL III Diagnosis: UTI[ICD9: 599.0] Diagnosis: Chronic back pain[ICD9: 724.5] [facility] CPT-4: 35155 09/05/2014 ([id number]) OFFICE VISIT, NEW - LEVEL 4 Diagnosis: ESSENTIAL HYPERTENSION[ICD9: 401.9] Diagnosis: THRUSH[ICD9: 112.0] Diagnosis: Hyperlipidemia[ICD9: 272.4] Diagnosis: COPD (chronic obstructive pulmonary disease)[ICD9: 496] Diagnosis: Cauda equina syndrome[ICD9: 344.60] Diagnosis: History of prostate cancer[ICD9: V10.46] [facility] CPT-4: 81869 07/04/2014 Plan of Care Planned Activity Notes [...] at home. 05/25/2018 Appointment: Mary Alan WPtel: [address] [place], [place] [id number] (30 min) [facility] 05/25/2018 Patient Education: Patient Medication Summary Completed [...] O2. 05/22/2018 App[facility]ment: [phone] ([facility] min[facility] 05/22/2018 Patient Education: [...] allergy spray. 04/20/2018 Appointment: [facility]el[phone] (15 min) Moderate 04/20/2018 Patient Education: Patient Medication Summary Completed 04/20/2018 Appointment: Lab Draw 12/14/2017 Patient Education: Patient Medication Summary Completed 12/14/2017 Appointment: [phone] ([facility] min) Moderate 11/28/2017 Visit Plan: Hypertension [...] culture report. 11/14/2017 Appointment: [phone] [place] (15 min) Moderate 11/14/2017 Patient Education: Patient [...] this patient. 08/15/2017 Appointment: Mary Alan WPtel: [phone] [facility] (30 min) Complex 08/15/2017 Patient Education: Patient Medication Summary Completed 08/15/2017 Appointment: Mary Alan WPtel: [phone] [place] [id number] (15 min) Moderate 08/08/2017 Appointment: Mary Alan WPtel: [phone] [facility]66[facility] (15 min) Moderate 08/03/2017 Visit Plan: Cauda [...] pain symptoms. 06/29/2017 Appointment: Mary Alan WPtel: [phone] [facility] [place] (15 min) Moderate 06/29/2017 Patient Education: [...] not improve. 03/30/2017 Appointment: [facility]el[phone] ([facility] min) Complex 03/30/2017 Patient Education: Patient Medication Summary Completed 03/30/2017 Visit Plan: Cough-suspect virus-patient to monitor over the weekend-call Monday if symptoms persist and we will do a chest xray and sputum culture Cdiff-treat with flagyl as directed-call if symptoms do not resolve 10/07/2016 Appointment: Kavya Subramanian WPtel[phone] [phone] (30 min) Complex 10/07/2016 Patient Education: Patient Medication Summary Completed 10/07/2016 Patient Education: Obesity Completed 10/07/2016 Visit Plan: Cauda equina-chronic back pain-generalized weakness- right shoulder pain/weakness-patient to contact juan blancas for mobility paperwork-will ask PT to do a mobility exam through [facility] Drug induced constipation-rx for movantik. 07/01/2016 Visit Plan: Cauda equina-chronic back pain-generalized weakness- bilateral shoulder pain/weakness-OA knees-patient to contact juan blancas for mobility paperwork-will ask PT to do a mobility exam through [facility]. Patient is non ambulatory due to cauda [...] for movantik. 07/01/2016 Appointment: Kavya Subramanian WPtel: [phone] [place] (30 min) Complex 07/01/2016 Patient Education: [...] his surgery. 05/05/2016 Appointment: Mary Alan WPtel: [facility] Surgical Clearance 05/05/2016 Patient Education: Patient Medication [...] Juan godoy. 02/23/2016 Appointment: Mary Alan WPtel: [facility] (30 min) Complex 02/23/2016 Patient Education: Patient Medication Summary Completed 02/23/2016 Appointment: Mary Alan WPtel: [facility] (30 min) Complex 02/19/2016 Appointment: Darleen Aburto WPtel: [address] [place], [place] [phone] (15 min) Moderate 10/14/2015 Appointment: Lab Draw [...] having loose bowel movements. Keep appointment with Equity Analyst Make an appointment with rod tape operator - to follow up on shortness of breath. Weakness - pt is to contact Juan Godoy in [facility] and Call clinic when he is ready [...] not improved. 07/24/2015 Appointment: Kavya Subramanian WPtel: [address] [place], [place] [phone] (30 min) [facility] 07/24/2015 Patient Education: Patient Medication Summary Completed [...] and hypertension. 09/15/2014 Appointment: Darleen Aburto WPtel: [address] [place], [place] [phone] (15 min) Moderate 09/15/2014 Patient Education: Patient [...] equina-increased incontinence of bowels-recommend follow up with intake specialist-will discuss repeat MRI with Dr Aburto-keep [...] do PT evaluation for motorized wheelchair through [facility] . Cauda equina-chronic back pain-generalized weakness-right shoulder pain/weakness- patient to contact juan lawrence for mobility paperwork-will ask PT to do a mobility exam through [facility] Drug induced constipation-rx for movantik. [employer] [place] to do PT evaluation for motorized wheelchair through [facility] . Cauda equina-chronic back pain-generalized weakness-bilateral shoulder pain/weakness- OA knees-patient to contact juan lawrence for mobility paperwork-will ask PT to do a mobility exam through [facility]. Patient is non ambulatory due to cauda [...] incontinence of bowels- recommend follow up with intake specialist-will discuss repeat MRI with Dr Aburto-keep [...] (start tomorrow) let us know what your rod tape operator says at your appointment chest x-ray if [...] chair - will have pt contact [facility]. . Cauda Equina, weakness, gait instability - [...] Peng 4. Make an appointment with your rod tape operator - to follow up on shortness of breath. 5. Call us when you here about the mobility paperwork and we will fill out the paperwork. Juan Godoy in [facility] . Hypertension - The patient has been [...] having loose bowel movements. Keep appointment with Equity Analyst Make an appointment with rod tape operator - to follow up on shortness of breath. Weakness - pt is to contact Juan Godoy in [facility] and Call clinic when he is ready [...] 2 pills daily. Will consult Tiffany Bullard Nordman PT. Cauda Equina - stable - continue [...]
--- OUTSIDE RECORDS SUMMARY | 2018-07-19 08:58 | XMS REPORT | CCD ---
Author Author Kavya Subramanian Organization Darleen Aburto MD, [facility] Address [address] [place] [address] Phone Care Team Providers Care Train Control Electronic Technician Name Role Phone PP Unavailable CCM Unavailable Summary Purpose Interface Exchange Insurance Providers Payer name Policy type / Coverage type Covered alliance party ID Effective Begin Date Effective End Date WPS Medicare Part B Commercial Insurance [id number] Unknown Unknown [employer]ICE Commercial Insurance [id number] Unknown Unknown Family history Father Diagnosis Age At Onset Coronary Artery Disease Unknown Mother Diagnosis Age At Onset Arthritis Unknown Sister Diagnosis Age At Onset Alzheimer's Disease Unknown Social History Social History Element Codes Description Effective Dates Marital status Unknown 07/04/2014 Number of children Unknown 2 07/04/2014 Living arrangements Unknown House 07/04/[address]: 8956700 Quit over 10 years ago 07/04/2014 Alcohol history Unknown occasionally drinks alcohol 07/04/2014 Frequency of drinks SNOMED CT: 949445277 Drinks rarely 07/04/2014 Allergies, Adverse Reactions, Alerts Substance Reaction Codes Entered Date Inactivated Date Status * NO KNOWN FOOD ALLERGIES Unknown 07/04/2014 No Inactive Date Active Iodine rash, pruritis, RxNorm: 5933 03/04/2015 No Inactive Date Active tramadol pruritis RxNorm: 62242 07/04/2014 No Inactive Date Active Past Medical History Illness Codes Condition Status Onset Date Resolved Date Dysuria ICD-9: 788.1 ICD-10: R30.0 Active 03/30/2017 Unknown Hematuria, unspecified ICD-9: 599.70 ICD-10: R31.9 Active 12/04/2014 Unknown Cauda equina syndrome ICD- 9: 344.60 ICD-10: G83.4 Active 03/19/2015 Unknown Irritable bowel syndrome with diarrhea ICD-9: 564.1 ICD-10: K58.0 Active 09/15/2015 Unknown Other malaise ICD-9: 780.79 ICD-10: R53.81 Active 03/30/2017 Unknown Weakness ICD-9: 780.79 ICD-10: R53.1 Active 02/22/2016 Unknown Cough ICD-9: 786.2 ICD-10: R05 Active 10/07/2016 Unknown Enterocolitis due to Clostridium difficile ICD-9: 008.45 ICD-10: A04.7 Active 10/07/2016 Unknown Bilateral primary osteoarthritis of knee ICD-9: 715.96 ICD-10: M17.0 Active 07/01/2016 Unknown Drug induced constipation ICD-9: 564.09 ICD-10: K59.03 Active 07/01/2016 Unknown Pain in right shoulder ICD-9: 719.41 ICD-10: M25.511 Active 02/22/2016 Unknown Polyneuropathy, unspecified ICD-9: 355.9 ICD-10: G62.9 Active 07/01/2016 Unknown Primary osteoarthritis, left shoulder ICD-9: 715.91 ICD-10: M19.012 Active 07/01/2016 Unknown Primary osteoarthritis, right shoulder ICD-9: 715.91 ICD-10: M19.011 Active 07/01/2016 Unknown Diarrhea, unspecified ICD- 9: 787.91 ICD-10: R19.7 Active 07/23/2015 Unknown Essential (primary) hypertension ICD-9: 401.9 ICD-10: I10 Active 09/15/2015 Unknown Shortness of breath ICD- 9: 786.05 ICD-10: R06.02 Active 02/22/2016 Unknown Urinary tract infection, site not specified ICD-9: 599.0 ICD-10: N39.0 Active 09/17/2015 Unknown Other insomnia ICD-9: 327.09 ICD-10: G47.09 Active 09/15/2015 Unknown Nausea ICD-9: 787.02 ICD-10: R11.0 Active 07/23/2015 Unknown Other iron deficiency anemias ICD-9: 280.1 ICD-10: D50.8 Active 03/19/2015 Unknown Other pruritus ICD-9: 698.8 ICD-10: L29.8 [...] Problems Condition Codes Effective Dates Condition Status Dysuria ICD-9: 788.1 ICD-10: R30.0 03/30/2017 Active Hematuria, unspecified ICD-9: 599.70 ICD-10: R31.9 12/04/2014 Active Cauda equina syndrome ICD- 9: 344.60 ICD-10: G83.4 03/19/2015 Active Irritable bowel syndrome with diarrhea ICD-9: 564.1 ICD-10: K58.0 09/15/2015 Active Other malaise ICD-9: 780.79 ICD-10: R53.81 03/30/2017 Active Weakness ICD-9: 780.79 ICD-10: R53.1 02/22/2016 Active Cough ICD-9: 786.2 ICD-10: R05 10/07/2016 Active Enterocolitis due to Clostridium difficile ICD-9: 008.45 ICD-10: A04.7 10/07/2016 Active Bilateral primary osteoarthritis of knee ICD-9: 715.96 ICD-10: M17.0 07/01/2016 Active Drug induced constipation ICD-9: 564.09 ICD-10: K59.03 07/01/2016 Active Pain in right shoulder ICD-9: 719.41 ICD-10: M25.511 02/22/2016 Active Polyneuropathy, unspecified ICD-9: 355.9 ICD-10: G62.9 07/01/2016 Active Primary osteoarthritis, left shoulder ICD-9: 715.91 ICD-10: M19.012 07/01/2016 Active Primary osteoarthritis, right shoulder ICD-9: 715.91 ICD-10: M19.011 07/01/2016 Active Diarrhea, unspecified ICD- 9: 787.91 ICD-10: R19.7 07/23/2015 Active Essential (primary) hypertension ICD-9: 401.9 ICD-10: I10 09/15/2015 Active Shortness of breath ICD- 9: 786.05 ICD-10: R06.02 02/22/2016 Active Urinary tract infection, site not specified ICD-9: 599.0 ICD-10: N39.0 09/17/2015 Active Other insomnia ICD-9: 327.09 ICD-10: G47.09 09/15/2015 Active Nausea ICD-9: 787.02 ICD-10: R11.0 07/23/2015 Active Other iron deficiency anemias ICD-9: 280.1 ICD-10: D50.8 03/19/2015 Active Other pruritus ICD-9: 698.8 ICD-10: L29.8 [...] Start Date Stop Date Status Fill Instructions Cipro 500 mg tablet RxNorm: 337620 1 Tablet(s) PO BID 04/21/2017 04/30/2017 Inactive Take probiotic while on ABT Cipro 500 mg tablet RxNorm: 197882 1 Tablet(s) PO BID 04/21/2017 04/20/2017 Inactive Diflucan 150 mg tablet RxNorm: 271969 1 Tablet(s) PO daily 04/19/2017 04/25/2017 Inactive Diflucan 150 mg tablet RxNorm: 770301 1 Tablet(s) PO daily 04/19/2017 04/18/2017 Inactive oxycodone 5 mg tablet RxNorm: 5009081 4 Tablet(s) PO daily 04/17/2017 06/30/2017 Active gabapentin 600 mg tablet RxNorm: 074591 TABLET(S) TAKE 1 TABLET BY MOUTH TWICE DAILY 04/14/2017 04/08/2018 Active Rocephin 1 gram solution for injection RxNorm: 121256 1 Inj daily 04/05/2017 04/11/2017 Inactive Rocephin 1 gram solution for injection RxNorm: 428931 1 Inj daily 04/04/2017 04/04/2017 Inactive lidocaine (PF) 10 mg/mL (1 %) injection solution RxNorm: 3791209 1 Milliliter(s) Inj daily 04/04/2017 04/10/2017 Inactive Use to administer rocephin lidocaine (PF) 10 mg/mL (1 %) injection solution RxNorm: 3604607 1 Milliliter(s) Inj daily 04/04/2017 04/03/2017 Inactive Use to administer rocephin Rocephin 1 gram solution for injection RxNorm: 768831 1 Inj daily 04/04/2017 04/03/2017 Inactive Augmentin 500 mg-125 mg tablet RxNorm: 740930 1 Tablet(s) PO TID 03/31/2017 04/03/2017 Inactive Augmentin 500 mg-125 mg tablet RxNorm: 369001 1 Tablet(s) PO TID 03/31/2017 03/30/2017 Inactive Effexor XR 75 mg capsule,extended release RxNorm: 101992 TAKE 3 CAPSULES BY MOUTH EVERY MORNING 03/24/2017 07/21/2017 Active potassium chloride ER 20 mEq tablet,extended release RxNorm: 210611 1 TABLET(S) PO DAILY 03/13/2017 03/07/2018 Active lisinopril 40 mg tablet RxNorm: 737802 TAKE 1 TABLET BY MOUTH DAILY 02/06/2017 11/02/2017 Active pantoprazole 40 mg tablet,delayed release RxNorm: 779063 TAKE 1 TABLET BY MOUTH DAILY 12/19/2016 12/13/2017 Active oxycodone 5 mg tablet RxNorm: 2820639 4 Tablet(s) PO daily 12/19/2016 03/03/2017 Inactive diclofenac sodium 75 mg tablet,delayed release RxNorm: 742374 1 TABLET(S) PO BID 11/17/2016 08/13/2017 Active gabapentin 600 mg tablet RxNorm: 634520 TABLET(S) TAKE 1 TABLET BY MOUTH TWICE DAILY 10/14/2016 04/11/2017 Inactive Flagyl 500 mg tablet RxNorm: 537052 1 Tablet(s) PO TID 10/07/2016 10/16/2016 Inactive oxycodone 5 mg tablet RxNorm: 4857946 4 Tablet(s) PO daily 10/03/2016 12/16/2016 Inactive Effexor XR 75 mg capsule,extended release RxNorm: 245293 TAKE 3 CAPSULES BY MOUTH EVERY MORNING 09/22/2016 11/20/2016 Inactive Patient requests 90 days supply lisinopril 40 mg tablet RxNorm: 481409 TAKE 1 TABLET BY MOUTH DAILY 08/01/2016 01/27/2017 Inactive Effexor XR 75 mg capsule,extended release RxNorm: 733395 TAKE 3 CAPSULES BY MOUTH EVERY MORNING 07/21/2016 09/21/2016 Inactive oxycodone 5 mg tablet RxNorm: 8024719 4 Tablet(s) PO daily 07/11/2016 09/23/2016 Inactive Movantik 25 mg tablet RxNorm: 9213632 1 Tablet(s) PO daily 07/01/2016 No Stop Date Active potassium chloride ER 20 mEq tablet,extended release RxNorm: 084001 1 TABLET(S) PO DAILY 06/14/2016 03/10/2017 Inactive Flagyl 500 mg tablet RxNorm: 049690 1 Tablet(s) PO TID 06/03/2016 06/12/2016 Inactive Flagyl 500 mg tablet RxNorm: 861275 1 Tablet(s) PO TID 06/03/2016 06/02/2016 Inactive oxycodone 5 mg tablet RxNorm: 6288834 4 Tablet(s) PO daily 04/27/2016 07/10/2016 Inactive Tamiflu 75 mg capsule RxNorm: 824969 1 Capsule(s) PO daily 04/19/2016 04/28/2016 Inactive Tamiflu 75 mg capsule RxNorm: 593731 1 Capsule(s) PO daily 04/19/2016 04/18/2016 Inactive Effexor XR 75 mg capsule,extended release RxNorm: 417208 TAKE 3 CAPSULES BY MOUTH EVERY MORNING 02/18/2016 04/17/2016 Inactive diclofenac sodium 75 mg tablet,delayed release RxNorm: 550509 1 TABLET(S) PO BID 02/18/2016 11/13/2016 Inactive Effexor XR 75 mg capsule,extended release RxNorm: 899206 Capsule(s) TAKE 3 CAPSULES BY MOUTH EVERY MORNING 02/17/2016 08/14/2016 Inactive oxycodone 5 mg tablet RxNorm: 3537396 4 Tablet(s) PO daily 02/04/2016 04/26/2016 Inactive clopidogrel 75 mg tablet RxNorm: 072260 1 TABLET(S) PO QAM 02/01/2016 01/25/2017 Inactive gabapentin 600 mg tablet RxNorm: 809568 Tablet(s) TAKE 1 TABLET BY MOUTH TWICE DAILY 02/01/2016 10/13/2016 Inactive Effexor XR 75 mg capsule,extended release RxNorm: 371486 TAKE 3 CAPSULES BY MOUTH EVERY MORNING 01/11/2016 02/09/2016 Inactive pantoprazole 40 mg tablet,delayed release RxNorm: 522745 TAKE 1 TABLET BY MOUTH DAILY 12/22/2015 12/15/2016 Inactive Effexor XR 75 mg capsule,extended release RxNorm: 459236 TAKE 3 CAPSULES BY MOUTH EVERY MORNING 11/16/2015 01/14/2016 Inactive lisinopril 40 mg tablet RxNorm: 261391 TAKE 1 TABLET BY MOUTH DAILY 11/05/2015 07/31/2016 Inactive Effexor XR 75 mg capsule,extended release RxNorm: 211262 TAKE 3 CAPSULES BY MOUTH EVERY MORNING 09/22/2015 11/20/2015 Inactive Augmentin 500 mg-125 mg tablet RxNorm: 135940 1 Tablet(s) PO TID 09/18/2015 09/24/2015 Inactive Anoro Ellipta 62.5 mcg-25 mcg/actuation powder for inhalation RxNorm: 7345948 1 INH DAILY 08/20/2015 No Stop Date Active Anoro Ellipta 62.5 mcg-25 mcg/actuation powder for inhalation RxNorm: 3790929 1 INH daily 08/20/2015 02/15/2016 Inactive lisinopril 40 mg tablet RxNorm: 763146 TAKE 1 TABLET BY MOUTH DAILY 08/10/2015 11/04/2015 Inactive gabapentin 600 mg tablet RxNorm: 265535 TAKE 1 TABLET BY MOUTH TWICE DAILY 08/10/2015 01/31/2016 Inactive terazosin 2 mg capsule RxNorm: 020855 TAKE ONE CAPSULE BY MOUTH EVERY DAY 07/27/2015 08/29/2016 Inactive hyoscyamine 0.125 mg sublingual tablet RxNorm: 6433132 1 Tablet(s) SL TID as needed 07/24/2015 08/02/2015 Inactive metronidazole 500 mg tablet RxNorm: 678446 1 Tablet(s) PO TID 07/24/2015 07/30/2015 Inactive Effexor XR 75 mg capsule,extended release RxNorm: 028286 TAKE 3 CAPSULES BY MOUTH EVERY MORNING 07/23/2015 09/20/2015 Inactive oxycodone 5 mg tablet RxNorm: 9390113 4 Tablet(s) PO daily 06/26/2015 02/03/2016 Inactive potassium chloride ER 20 mEq tablet,extended release RxNorm: 178846 1 Tablet(s) PO daily 06/25/2015 06/13/2016 Inactive oxycodone 5 mg tablet RxNorm: 8721928 4 Tablet(s) PO daily 04/17/2015 06/25/2015 Inactive rx written Anoro Ellipta 62.5 mcg-25 mcg/actuation powder for inhalation RxNorm: 3152434 1 INH daily 04/17/2015 08/19/2015 Inactive potassium chloride ER 20 mEq tablet,extended release RxNorm: 419598 1 Tablet(s) PO daily 03/23/2015 06/24/2015 Inactive triamcinolone acetonide 0.1 % topical cream RxNorm: 0546911 1 Application TOP BID 03/20/2015 No Stop Date Active carvedilol 12.5 mg tablet RxNorm: 374096 1 TABLET(S) PO BID 02/23/2015 08/21/2015 Inactive diclofenac sodium 75 mg tablet,delayed release RxNorm: 374885 1 Tablet(s) PO BID 02/18/2015 02/12/2016 Inactive carvedilol 12.5 mg tablet RxNorm: 148931 1 Tablet(s) PO BID 02/17/2015 02/11/2016 Inactive furosemide 40 mg tablet RxNorm: 949935 1 Tablet(s) PO daily 02/17/2015 02/11/2016 Inactive lisinopril 40 mg tablet RxNorm: 832945 TAKE 1 TABLET BY MOUTH DAILY 02/16/2015 08/09/2015 Inactive ceftriaxone 1 gram solution for injection RxNorm: 9150383 1 Gram(s) Inj daily mix with lidocaine 01/14/2015 01/17/2015 Inactive please supply 4 bottles of 1gram rocephin IM with 1 bottle of lidocaine 1% for home health to administer to pt starting 01/15 ceftriaxone 1 gram solution for injection RxNorm: 7399818 1 Gram(s) Inj daily 01/14/2015 01/13/2015 Inactive please supply 4 bottles of 1gram rocephin IM with 1 bottle of lidocaine 1% for home health to administer to pt starting 01/15 Augmentin 500 mg-125 mg tablet RxNorm: 125847 1 Tablet(s) PO BID 01/13/2015 01/22/2015 Inactive Keflex 500 mg capsule RxNorm: 435634 1 Capsule(s) PO TID 12/12/2014 12/11/2014 Inactive Keflex 500 mg capsule RxNorm: 422847 1 Capsule(s) PO TID 12/12/2014 12/17/2014 Inactive Augmentin 500 mg-125 mg tablet RxNorm: 150723 1 Tablet(s) PO BID 11/28/2014 12/02/2014 Inactive Augmentin 500 mg-125 mg tablet RxNorm: 175464 1 Tablet(s) PO BID 11/28/2014 11/27/2014 Inactive Cipro 500 mg tablet RxNorm: 262067 1 Tablet(s) PO BID 11/24/2014 11/27/2014 Inactive gabapentin 600 mg tablet RxNorm: 377821 1 Tablet(s) PO BID 11/17/2014 08/13/2015 Inactive gabapentin 600 mg tablet RxNorm: 708015 1 Tablet(s) PO BID 11/17/2014 11/16/2014 Inactive oxycodone 5 mg tablet RxNorm: 0519720 4 Tablet(s) PO daily 11/07/2014 02/04/2015 Inactive rx written Effexor XR 75 mg capsule,extended release RxNorm: 766806 3 Capsule(s) 225 PO QAM 11/05/2014 03/04/2015 Inactive clopidogrel 75 mg tablet RxNorm: 107740 1 Tablet(s) PO QAM 11/05/2014 01/28/2016 Inactive Effexor XR 75 mg capsule,extended release RxNorm: 580312 3 Capsule(s) 225 PO QAM 11/03/2014 11/04/2014 Inactive carvedilol 12.5 mg tablet RxNorm: 152851 1 Tablet(s) PO BID 10/28/2014 02/16/2015 Inactive Effexor XR 75 mg capsule,extended release RxNorm: 726339 3 Capsule(s) 225 PO QAM 10/28/2014 11/02/2014 Inactive Effexor XR 75 mg capsule,extended release RxNorm: 959689 3 Capsule(s) 225 PO QAM 10/28/2014 10/27/2014 Inactive carvedilol 12.5 mg tablet RxNorm: 999938 1 Tablet(s) PO BID 10/28/2014 10/27/2014 Inactive ceftriaxone 1 gram solution for injection RxNorm: 4540226 Inj 09/05/2014 09/05/2014 Inactive Cipro 500 mg tablet RxNorm: 010134 1 Tablet(s) PO BID 09/04/2014 09/03/2014 Inactive Cipro 500 mg tablet RxNorm: 876674 1 Tablet(s) PO BID 09/04/2014 09/10/2014 Inactive oxycodone 5 mg tablet RxNorm: 2729432 4 Tablet(s) PO daily 08/20/2014 11/06/2014 Inactive rx written lisinopril 40 mg tablet RxNorm: 604670 TAKE 1 TABLET BY MOUTH DAILY 08/18/2014 02/13/2015 Inactive nystatin 100,000 unit/mL oral suspension RxNorm: 056544 5 Milliliter(s) PO QID 07/04/2014 07/13/2014 Inactive [SAVINGS FOR NON-COVERED DRUGS -- BIN:[id number], PCN: [id number], Group: [id number], ID# [id number], Questions: . THIS IS NOT INSURANCE.] WelChol 3.75 gram oral powder packet RxNorm: 010010 1 PO BID No Start Date Active amlodipine 10 mg tablet RxNorm: 588343 1 Tablet(s) PO QAM No Start Date Active One A Day oral RxNorm: 26237 oral No Start Date Active Vitamin D2 400 unit capsule RxNorm: 768729 1 Capsule(s) PO daily No Start Date Active aspirin 81 mg tablet,delayed release RxNorm: 712746 1 Tablet(s) PO daily No Start Date Active melatonin 5 mg disintegrating tablet RxNorm: 3662023 1 Tablet(s) PO QHS No Start Date Active clonidine HCl 0.1 mg tablet RxNorm: 472649 1 Tablet(s) PO QHS No Start Date Active hydrochlorothiazide oral RxNorm: 5487 oral No Start Date Active Lasix oral RxNorm: 000517 oral No Start Date 02/17/2015 Inactive potassium chloride 20 meq RxNorm: 323171 PO daily No Start Date 03/22/2015 Inactive oxycodone 5 mg tablet RxNorm: 6164691 3-4 Tablet(s) PO QHS No Start Date 08/19/2014 Inactive terazosin 2 mg capsule RxNorm: 818548 1 Capsule(s) PO daily No Start Date 07/26/2015 Inactive Effexor XR 75 mg capsule,extended release RxNorm: 850984 3 Capsule(s) 225 PO QAM No Start Date 10/27/2014 Inactive gabapentin 600 mg tablet RxNorm: 342257 1 Tablet(s) PO BID No Start Date 11/16/2014 Inactive pantoprazole 40 mg tablet,delayed release RxNorm: 073136 oral No Start Date 12/21/2015 Inactive Anoro Ellipta 62.5 mcg-25 mcg/actuation powder for inhalation RxNorm: 5953585 1 INH daily No Start Date 04/16/2015 Inactive diclofenac sodium 75 mg tablet,delayed release RxNorm: 411564 1 Tablet(s) PO BID No Start Date 02/17/2015 Inactive clopidogrel 75 mg tablet RxNorm: 196005 1 Tablet(s) PO QAM No Start Date 11/04/2014 Inactive lisinopril 40 mg tablet RxNorm: 975778 1 Tablet(s) PO daily No Start Date 08/17/2014 Inactive carvedilol 12.5 mg tablet RxNorm: 328455 1 Tablet(s) PO BID No Start Date 10/27/2014 Inactive Medication Administered Medication Codes Instructions Start Date Status ceftriaxone 1 gram solution for injection RxNorm: 2259926 09/05/2014 No longer Active Immunizations Vaccine Codes Date Status Influenza CVX: 141 12/31/2014 completed Assessments Condition Codes Effective Dates Dysuria ICD-10: R30.0 ICD-9: 788.1 05/15/2017 Hematuria, unspecified ICD-10: R31.9 ICD-9: 599.70 05/15/2017 Weakness ICD-10: R53.1 ICD-9: 780.79 03/30/2017 Cauda equina syndrome ICD-10: G83.4 ICD-9: 344.60 03/30/2017 Other malaise ICD-10: R53.81 ICD-9: 780.79 03/30/2017 Cough ICD-10: R05 ICD-9: 786.2 10/07/2016 Enterocolitis due to Clostridium difficile ICD-10: A04.7 [...] not specified ICD-10: N39.0 ICD-9: 599.0 09/18/2015 Essential (primary) hypertension ICD-10: I10 ICD-9: 401.9 09/16/2015 Other insomnia ICD-10: G47.09 ICD-9: 327.09 09/16/2015 Nausea ICD-10: R11.0 ICD-9: 787.02 07/24/2015 Rash and other nonspecific skin eruption ICD-10: R21 ICD-9: 782.1 03/20/2015 Other pruritus ICD-10: L29.8 ICD-9: 698.8 03/20/2015 Other iron 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 ICD-9: 280.1 03/20/2015 Umbilical hernia without obstruction or gangrene [...] Visit Reason For Visit Effective Dates Notes muscle weakness 03/30/2017 cough 10/07/2016 back pain 07/01/2016 pre-op/surgery consult 05/05/2016 shoulder pain 02/23/2016 shortness of breath 09/16/2015 diarrhea 07/24/2015 rash 03/20/2015 sinus congestion 01/13/2015 vaccination against influenza 12/31/2014 hypertension 12/05/2014 hypertension 10/03/2014 hypertension 09/15/2014 urinary frequency 09/05/2014 hypertension 07/04/2014 c/o oral burning ? thrush Results Observation Observation Code Item Item Code Result Date Culture Urine [id number] URINE CULTURE SEE NOTES 05/22/2017 Culture Urine [id number] Continued Results 05/22/2017 Urine Culture Ucult Complete >100,000 col/ml aerobic growth sent to ref lab 05/16/2017 Culture Urine [id number] URINE CULTURE SEE NOTES 04/21/2017 Urine Culture [...] 55.2 % 03/30/2017 Cbc With Differential Ord2 Lymph% 24.1 % 03/30/2017 Cbc With Differential Ord2 MCV 95.9 fl 03/30/2017 Cbc With Differential Ord2 Franklin% 13.0 % 03/30/2017 Cbc With Differential Ord2 MCH 30.9 pg 03/30/2017 Cbc With Differential Ord2 MCHC 32.2 pg 03/30/2017 Cbc With Differential Ord2 Eos% 7.4 % 03/30/2017 Cbc With Differential Ord2 Baso% 0.3 % 03/30/2017 Cbc With Differential Ord2 PLT 370 K/ul 03/30/2017 Cbc With Differential Ord2 Neut ABS# 3.86 K/ul 03/30/2017 Cbc With Differential Ord2 RDW 15.9 % 03/30/2017 Cbc With Differential Ord2 Lymph ABS# 1.69 K/ul 03/30/2017 Cbc With Differential Ord2 [place] ABS# 0.9 K/ul 03/30/2017 Cbc With Differential Ord2 Eos ABS# 0.5 K/ul 03/30/2017 Cbc With Differential Ord2 Baso ABS# 0.0 K/ul 03/30/2017 %Hba1C Bze205 % HbA1c 08324- 6 5.8 % 03/30/2017 %Hba1C Mpt698 Gluc Ave 120 mg/dL 03/30/2017 Comp Metabolic Odj579 NA 140 mEq/L 03/30/2017 Comp Metabolic Dwk354 K 4.0 mEq/L 03/30/2017 Comp Metabolic Mul950 CL 105 mEq/L 03/30/2017 Comp Metabolic Rlx659 CO2 25.0 mEq/L 03/30/2017 Comp Metabolic Jdx007 ANION GAP 14 03/30/2017 Comp Metabolic Zam296 GLUCOSE 108 mg/dL 03/30/2017 Comp Metabolic Bjy714 Creat 1.2 mg/dL 03/30/2017 Comp Metabolic Xvv752 eGFR 63 ml/min/1.73m2 03/30/2017 Comp Metabolic Oio773 BUN 20 mg/dL 03/30/2017 Comp Metabolic Axq344 B/C Ratio 16.9 Ratio 03/30/2017 Comp Metabolic Ppv854 CALCIUM 9.2 mg/dL 03/30/2017 Comp Metabolic Lyz797 ALK PHOS 83 U/L 03/30/2017 Comp Metabolic Sqh851 AST(SGOT) 17 U/L 03/30/2017 Comp Metabolic Nxy221 ALT(SGPT) 19 U/L 03/30/2017 Comp Metabolic Fse515 BILI T 0.3 mg/dL 03/30/2017 Comp Metabolic Cmn801 ALBUMIN 3.9 g/dL 03/30/2017 Comp Metabolic Zij620 TPRO 7.2 g/dL 03/30/2017 Comp Metabolic Zuf054 GLOB 3.3 g/dL 03/30/2017 Comp Metabolic Psv423 A/G Ratio 1.2 Ratio 03/30/2017 Comp Metabolic Jgs302 Osmo 283 mOsmo 03/30/2017 Tsh Ord6 TSH (3rd IS) 1.40 uIU/mL 03/30/2017 Clostridium Diff Tox A/B Uud130 Cdiff Positive 06/03/2016 Total Psa PSA 1.53 [...] 50.2 % 03/20/2015 Cbc With Differential Ord2 Lymph% 27.4 % 03/20/2015 Cbc With Differential Ord2 MCV 99.1 fl 03/20/2015 Cbc With Differential Ord2 Franklin% 12.8 % 03/20/2015 Cbc With Differential Ord2 MCH 31.2 pg 03/20/2015 Cbc With Differential Ord2 MCHC 31.5 pg 03/20/2015 Cbc With Differential Ord2 Eos% 9.4 % 03/20/2015 Cbc With Differential Ord2 PLT 344 K/ul 03/20/2015 Cbc With Differential Ord2 Baso% 0.2 % 03/20/2015 Cbc With Differential Ord2 Neut ABS# 3.10 K/ul 03/20/2015 Cbc With Differential Ord2 RDW 16.0 % 03/20/2015 Cbc With Differential Ord2 Lymph ABS# 1.69 K/ul 03/20/2015 Cbc With Differential Ord2 [place] ABS# 0.8 K/ul 03/20/2015 Cbc With Differential Ord2 Eos ABS# 0.6 K/ul 03/20/2015 Cbc With Differential Ord2 Baso ABS# 0.0 K/ul 03/20/2015 Cbc With Differential Ord2 New Analyzer Notice Please note new ref ranges starting 03-04-2015 due to implemntation of new five part differential hematolgy analyzer. 03/20/2015 Comp Metabolic Ltt601 NA 138 mEq/L 02/26/2015 Comp Metabolic Nwv538 K 4.0 mEq/L 02/26/2015 Comp Metabolic Lcy326 CL 103 mEq/L 02/26/2015 Comp Metabolic Igy159 CO2 28.0 mEq/L 02/26/2015 Comp Metabolic Oyp281 ANION GAP 11 02/26/2015 Comp Metabolic Ctj242 GLUCOSE 95 mg/dL 02/26/2015 Comp Metabolic Duv585 Creat 1.0 mg/dL 02/26/2015 Comp Metabolic Cnq636 eGFR 74 ml/min/1.73m2 02/26/2015 Comp Metabolic Lwy079 BUN 19 mg/dL 02/26/2015 Comp Metabolic Set669 B/C Ratio 18.3 Ratio 02/26/2015 Comp Metabolic Wbo505 CALCIUM 9.1 mg/dL 02/26/2015 Comp Metabolic Dzx788 ALK PHOS 87 U/L 02/26/2015 Comp Metabolic Zyc992 AST(SGOT) 22 U/L 02/26/2015 Comp Metabolic Bsz721 ALT(SGPT) 24 U/L 02/26/2015 Comp Metabolic Nbu669 BILI T 0.4 mg/dL 02/26/2015 Comp Metabolic Cyw196 ALBUMIN 4.0 g/dL 02/26/2015 Comp Metabolic Xrm669 TPRO 7.4 g/dL 02/26/2015 Comp Metabolic Gyj079 GLOB 3.4 g/dL 02/26/2015 Comp Metabolic Qpq781 A/G Ratio 1.2 Ratio 02/26/2015 Comp Metabolic Pie429 Osmo 278 mOsmo 02/26/2015 Total Psa Ord10 PSA 2.25 ng/mL 02/26/2015 Culture Urine [id number] URINE CULTURE SEE NOTES 12/15/2014 Culture Urine [id number] Continued Results 12/15/2014 Urine Culture Ucult Complete >100,000 col/ml aerobic growth sent to ref lab 12/12/2014 Comp Metabolic Yjm779 NA 136 mEq/L 12/05/2014 Comp Metabolic Ojl449 K 4.3 mEq/L 12/05/2014 Comp Metabolic Vfb375 CL 104 mEq/L 12/05/2014 Comp Metabolic Fnh939 CO2 29.0 mEq/L 12/05/2014 Comp Metabolic Clz928 ANION GAP 7 12/05/2014 Comp Metabolic Mbf181 GLUCOSE 80 mg/dL 12/05/2014 Comp Metabolic Ath745 Creat 1.1 mg/dL 12/05/2014 Comp Metabolic Yss040 eGFR 68 ml/min/1.73m2 12/05/2014 Comp Metabolic Jwb932 BUN 21 mg/dL 12/05/2014 Comp Metabolic Ipt655 B/C Ratio 18.8 Ratio 12/05/2014 Comp Metabolic Jhc825 CALCIUM 9.3 mg/dL 12/05/2014 Comp Metabolic Esu749 ALK PHOS 81 U/L 12/05/2014 Comp Metabolic Mmv285 AST(SGOT) 17 U/L 12/05/2014 Comp Metabolic Hta020 ALT(SGPT) 16 U/L 12/05/2014 Comp Metabolic Frv565 BILI T 0.3 mg/dL 12/05/2014 Comp Metabolic Clk539 ALBUMIN 4.0 g/dL 12/05/2014 Comp Metabolic Zdd946 TPRO 6.9 g/dL 12/05/2014 Comp Metabolic Lpn865 GLOB 2.9 g/dL 12/05/2014 Comp Metabolic Ers691 A/G Ratio 1.4 Ratio 12/05/2014 Comp Metabolic Xzm101 Osmo 274 mOsmo 12/05/2014 Cbc With Differential [...] Ord2 RDW 15.0 % 12/05/2014 Culture Urine [id number] URINE CULTURE SEE NOTES 11/27/2014 Culture Urine [id number] Continued Results 11/27/2014 Urine Culture Ucult Complete Growth of aerobe sent to ref lab 11/25/2014 B Type Natriuretic Peptide [id number] B-ER MANAGER 121.00 pg/ml 10/08/2014 Cbc With Differential Ord2 [...] Folate Ord36 Folate 22.12 ng/mL 10/08/2014 B12 Xrc767 B12 >1500.00 pg/ml 10/08/2014 Comp Metabolic Dbo798 NA 135 mEq/L 10/08/2014 Comp Metabolic Gko117 K 4.5 mEq/L 10/08/2014 Comp Metabolic Ncr625 CL 104 mEq/L 10/08/2014 Comp Metabolic Oaq583 CO2 25.0 mEq/L 10/08/2014 Comp Metabolic Lsv078 ANION GAP 11 10/08/2014 Comp Metabolic Hao954 GLUCOSE 73 mg/dL 10/08/2014 Comp Metabolic Sqd890 Creat 1.1 mg/dL 10/08/2014 Comp Metabolic Uvv922 eGFR 71 ml/min/1.73m2 10/08/2014 Comp Metabolic Zbp493 BUN 21 mg/dL 10/08/2014 Comp Metabolic Pqb452 B/C Ratio 19.4 Ratio 10/08/2014 Comp Metabolic Eeo888 CALCIUM 9.0 mg/dL 10/08/2014 Comp Metabolic Oku692 ALK PHOS 73 U/L 10/08/2014 Comp Metabolic Dys721 AST(SGOT) 15 U/L 10/08/2014 Comp Metabolic Clu081 ALT(SGPT) 14 U/L 10/08/2014 Comp Metabolic Ryx134 BILI T 0.4 mg/dL 10/08/2014 Comp Metabolic Ook126 ALBUMIN 4.2 g/dL 10/08/2014 Comp Metabolic Ffz214 TPRO 7.1 g/dL 10/08/2014 Comp Metabolic Cdu752 GLOB 2.9 g/dL 10/08/2014 Comp Metabolic Bkk376 A/G Ratio 1.4 Ratio 10/08/2014 Comp Metabolic Hsi920 Osmo 272 mOsmo 10/08/2014 B12 Hcb557 B12 554.00 pg/ml 09/16/2014 Tibc Ord40 Iron 108 ug/dl 09/16/2014 Tibc Ord40 UIBC 281 ug/dL 09/16/2014 Tibc Ord40 TIBC 389 ug/dL 09/16/2014 Tibc Ord40 Fe-%Sat 27.8 % 09/16/2014 Folate Ord36 Folate >23.20 ng/mL 09/16/2014 Comp Metabolic Byc572 NA 134 mEq/L 09/16/2014 Comp Metabolic Ifg265 K 4.6 mEq/L 09/16/2014 Comp Metabolic Qaj554 CL 103 mEq/L 09/16/2014 Comp Metabolic Rxb833 CO2 25.0 mEq/L 09/16/2014 Comp Metabolic Cbk208 ANION GAP 11 09/16/2014 Comp Metabolic Zju331 GLUCOSE 93 mg/dL 09/16/2014 Comp Metabolic Kyw089 Creat 1.2 mg/dL 09/16/2014 Comp Metabolic Oai456 eGFR 65 ml/min/1.73m2 09/16/2014 Comp Metabolic His542 BUN 23 mg/dL 09/16/2014 Comp Metabolic Sbr913 B/C Ratio 19.8 Ratio 09/16/2014 Comp Metabolic Ulj634 CALCIUM 9.1 mg/dL 09/16/2014 Comp Metabolic Clw819 ALK PHOS 73 U/L 09/16/2014 Comp Metabolic Bqo785 AST(SGOT) 18 U/L 09/16/2014 Comp Metabolic Vna597 ALT(SGPT) 16 U/L 09/16/2014 Comp Metabolic Rqs838 BILI T 0.4 mg/dL 09/16/2014 Comp Metabolic Kwe935 ALBUMIN 4.0 g/dL 09/16/2014 Comp Metabolic Kxm411 TPRO 7.1 g/dL 09/16/2014 Comp Metabolic Sbb441 GLOB 3.1 g/dL 09/16/2014 Comp Metabolic Qom872 A/G Ratio 1.3 Ratio 09/16/2014 Comp Metabolic Jbu540 Osmo 272 mOsmo 09/16/2014 Cbc With Differential [...] Ord22 FERRITIN 36.2 ng/mL 09/16/2014 Culture Urine [id number] URINE CULTURE SEE NOTES 09/08/2014 Urine Culture [...] Ord2 RDW 17.8 % 09/05/2014 Comp Metabolic Hmt340 NA 133 mEq/L 09/05/2014 Comp Metabolic Tpq252 K 4.9 mEq/L 09/05/2014 Comp Metabolic Ymz227 CL 99 mEq/L 09/05/2014 Comp Metabolic Isz587 CO2 26.0 mEq/L 09/05/2014 Comp Metabolic Jrh406 ANION GAP 13 09/05/2014 Comp Metabolic Kbe563 GLUCOSE 83 mg/dL 09/05/2014 Comp Metabolic Tqf545 Creat 1.5 mg/dL 09/05/2014 Comp Metabolic Avv611 eGFR 47 ml/min/1.73m2 09/05/2014 Comp Metabolic Yho971 BUN 28 mg/dL 09/05/2014 Comp Metabolic Gyx911 B/C Ratio 18.3 Ratio 09/05/2014 Comp Metabolic Cry047 CALCIUM 8.9 mg/dL 09/05/2014 Comp Metabolic Vyt168 ALK PHOS 71 U/L 09/05/2014 Comp Metabolic Jnz813 AST(SGOT) 18 U/L 09/05/2014 Comp Metabolic Sfc679 ALT(SGPT) 29 U/L 09/05/2014 Comp Metabolic Jjf904 BILI T 0.6 mg/dL 09/05/2014 Comp Metabolic Ann306 ALBUMIN 3.8 g/dL 09/05/2014 Comp Metabolic Ueh826 TPRO 6.7 g/dL 09/05/2014 Comp Metabolic Tks711 GLOB 2.9 g/dL 09/05/2014 Comp Metabolic Vgl296 A/G Ratio 1.3 Ratio 09/05/2014 Comp Metabolic Bir611 Osmo 271 mOsmo 09/05/2014 Total Psa Ord10 PSA 2.11 ng/mL 08/26/2014 Review of Systems System Result Effective Dates Constitutional No recent illness 03/30/2017 Constitutional fatigue [...] clear 07/04/2014 None Full Exam - General 1995 Eyes conjunctiva/eyelids Overall: conjunctiva clear 07/04/2014 None Procedures Procedure Codes Date URINALYSIS NONAUTO W/O SCOPE CPT-4: 65105 05/15/2017 URINALYSIS NONAUTO W/O SCOPE CPT-4: 39972 09/18/2015 ADMIN INFLUENZA VIRUS VAC CPT-4: G0008 12/31/2014 FLU VACC PRSV FREE INC ANTIG Formatting Model/CDA Sections, Assigned to/[place] [employer] CPT-4: 06118Rllpoxy 12/31/2014 URINALYSIS NONAUTO W/O SCOPE CPT-4: 69750 12/10/2014 URINALYSIS NONAUTO W/O SCOPE CPT-4: 97834 11/24/2014 ROCEPHIN, PER 250 MG CPT- 4: J0696 09/05/2014 THER/PROPH/DIAG INJ SC/IM CPT-4: 72787 09/05/2014 URINALYSIS NONAUTO W/O SCOPE CPT-4: 32511 09/04/2014 Vital Signs Date Vital 03/30/2017 Blood Pressure 1: 130/66 Code: 8480-6 Heart Rate 1: 70 bpm Height: 5'9" SpO2: 97% Weight: 10/07/2016 Blood Pressure 1: 138/60 Code: 8480-6 BMI: 37.2 Code: 86608-3 Heart Rate 1: 79 bpm Height: 5'9" SpO2: 91% Weight: 252 lbs 07/01/2016 Blood Pressure 1: 138/68 Code: 8480-6 BMI: 37.2 Code: 72390-1 Heart Rate 1: 69 bpm Height: 5'9" SpO2: 93% Weight: 252 lbs 05/05/2016 Blood Pressure 1: 136/78 Code: 8480-6 BMI: 39.3 Code: 05818-3 Heart Rate 1: 72 bpm Height: 5'9" SpO2: 97% Weight: 266 lbs 02/23/2016 Blood Pressure 1: 145/70 Code: 8480-6 BMI: 37.5 Code: 33085-0 Heart Rate 1: 80 bpm Height: 5'9" Weight: 254 lbs 09/16/2015 Blood Pressure 1: 140/62 Code: 8480-6 Heart Rate 1: 77 bpm Height: 5'9" SpO2: 93% Weight: 07/24/2015 Blood Pressure 1: 152/68 Code: 8480-6 BMI: 37.7 Code: 16087-8 Heart Rate 1: 73 bpm Height: 5'9" SpO2: 97% Weight: 255 lbs 03/20/2015 Blood Pressure 1: 146/74 Code: 8480-6 BMI: 38.1 Code: 42877-3 Heart Rate 1: 63 bpm Height: 5'9" Weight: 258 lbs 01/13/2015 Blood Pressure 1: 120/58 Code: 8480-6 Heart Rate 1: 52 bpm Height: 5'9" SpO2: 97% Temperature: 37.1 (C) / 98.7 (F) Weight: 12/05/2014 Blood Pressure 1: 134/54 Code: 8480-6 BMI: 36.3 Code: 25445-0 Heart Rate 1: 76 bpm Height: 5'9" SpO2: 93% Weight: 246 lbs 10/03/2014 Blood Pressure 1: 132/60 Code: 8480-6 Heart Rate 1: 76 bpm Height: SpO2: 95% Weight: 254 lbs 09/15/2014 Blood Pressure 1: 120/68 Code: 8480-6 BMI: 37.5 Code: 37391-5 Heart Rate 1: 76 bpm Height: 5'9" SpO2: 93% Weight: 254 lbs 09/05/2014 Blood Pressure 1: 110/50 Code: 8480-6 BMI: 37.4 Code: 21684-4 Heart Rate 1: 79 bpm Height: 5'9" SpO2: 96% Temperature: 36.3 (C) / 97.4 (F) Weight: 253 lbs 07/04/2014 Blood Pressure 1: 138/72 Code: 8480-6 BMI: 37.1 Code: 53076-0 Heart Rate 1: 72 bpm Height: 5'9" SpO2: 93% Weight: 251 lbs Functional Status No Functional Status data History of Present Illness Symptom Name Status Result Effective Date Notes muscle weakness Location diffusely 03/30/2017 None muscle [...] discomfort 12/05/2014 occasional ache in chest- seeing [facility]iles lab technician in [place]- doing heart cath in October [...] discomfort 10/03/2014 occasional ache in chest- seeing [facility] lab technician in [place]- doing heart cath in October [...] data Encounters Encounter Performer Location Codes Date EST. PATIENT, LEVEL IV Diagnosis: Dysuria[ICD10: R30.0] Diagnosis: Other malaise[ICD10: R53.81] Diagnosis: Cauda equina syndrome[ICD10: G83.4] Diagnosis: Weakness[ICD10: R53.1] [facility] CPT-4: 83130 03/30/2017 ([id number]) [id number] EST. PATIENT, LEVEL III Diagnosis: Cough[ICD10: R05] Diagnosis: Enterocolitis due to Clostridium difficile[ICD10: A04.7] [facility] CPT-4: 10804 10/07/2016 ([id number]) 01419 EST. 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 PATIENT, LEVEL III Diagnosis: Cauda equina syndrome[ICD10: G83.4] Diagnosis: Irritable bowel syndrome with diarrhea[ICD10: K58.0] Mary Aburto MD, [facility] CPT-4: 05882 05/05/2016 [id number] EST. PATIENT, LEVEL III Diagnosis: Pain in right shoulder[ICD10: M25.511] Diagnosis: Weakness[ICD10: R53.1] Diagnosis: Shortness of breath[ICD10: R06.02] Mary Aburto MD, [facility] CPT-4: 66608 02/23/2016 [id number] EST. PATIENT, LEVEL III Diagnosis: Essential (primary) hypertension[ICD10: I10] Diagnosis: Other insomnia[ICD10: G47.09] Diagnosis: Irritable bowel syndrome with diarrhea[ICD10: K58.0] Diagnosis: Shortness of breath[ICD10: R06.02] Diagnosis: Weakness[ICD10: R53.1] Mary Aburto MD, [facility] CPT-4: 71948 09/16/2015 [id number] EST. PATIENT, LEVEL III Diagnosis: Diarrhea, unspecified[ICD10: R19.7] Diagnosis: Nausea[ICD10: R11.0] Mary Aburto MD, [facility] CPT-4: 24289 07/24/2015 [id number] EST. PATIENT, LEVEL IV Diagnosis: Other iron deficiency anemias[ICD10: D50.8] Diagnosis: Rash and other nonspecific skin eruption[ICD10: R21] Diagnosis: Cauda equina syndrome[ICD10: G83.4] Diagnosis: Essential (primary) hypertension[ICD10: I10] Diagnosis: Other pruritus[ICD10: L29.8] Diagnosis: Shortness of breath[ICD10: R06.02] Mary Aburto MD, [facility] CPT-4: 15716 03/20/2015 70006 EST. PATIENT, LEVEL IV Diagnosis: Urinary tract infection, site not specified[ICD10: N39.0] Diagnosis: Umbilical hernia without obstruction or gangrene[ICD10: K42.9] Diagnosis: Cauda equina syndrome[ICD10: G83.4] Mary Aburto MD, [facility] CPT- 4: 72906 01/13/2015 ([id number]) 50516 EST. PATIENT, LEVEL IV Diagnosis: Iron deficiency anemia, unspecified[ICD10: D50.9] Diagnosis: Essential (primary) hypertension[ICD10: I10] Diagnosis: Hematuria, unspecified[ICD10: R31.9] Kavya Aburto MD, [facility] CPT-4: 85951 12/05/2014 ([id number]) 18961 EST. PATIENT, LEVEL IV Diagnosis: ESSENTIAL HYPERTENSION[ICD9: 401.9] Diagnosis: COPD (chronic obstructive pulmonary disease)[ICD9: 496] Diagnosis: ANEMIA[ICD9: 285.9] Diagnosis: SHORTNESS OF BREATH[ICD9: 786.05] Kavya Aburto MD, [facility] CPT- 4: 54927 10/03/2014 ([id number]) 03221 EST. PATIENT, LEVEL IV Diagnosis: ESSENTIAL HYPERTENSION[ICD9: 401.9] Diagnosis: ANEMIA[ICD9: 285.9] Diagnosis: MALAISE AND FATIGUE[ICD9: 780.79] Darleen Aburto MD, [facility] CPT- 4: 50125 09/15/2014 ([id number]) 69167 EST. PATIENT, LEVEL III Diagnosis: UTI[ICD9: 599.0] Diagnosis: Chronic back pain[ICD9: 724.5] Kavya Aburto MD, [facility] CPT-4: 40136 09/05/2014 ([id number]) OFFICE VISIT, NEW - LEVEL 4 Diagnosis: ESSENTIAL HYPERTENSION[ICD9: 401.9] Diagnosis: THRUSH[ICD9: 112.0] Diagnosis: Hyperlipidemia[ICD9: 272.4] Diagnosis: COPD (chronic obstructive pulmonary disease)[ICD9: 496] Diagnosis: Cauda equina syndrome[ICD9: 344.60] Diagnosis: History of prostate cancer[ICD9: V10.46] [facility] CPT-4: 89209 07/04/2014 Plan of Care Planned Activity Notes Codes Status Date Appointment: Lab Draw 05/15/2017 Patient Education: Patient [...] not improve. 03/30/2017 Appointment: [facility] ([facility] min[facility] Complex 03/30/2017 Patient Education: Patient Medication Summary Completed 03/30/2017 Visit Plan: Cough-suspect virus-patient to monitor over the weekend-call Monday if symptoms persist and we will do a chest xray and sputum culture Cdiff-treat with flagyl as directed-call if symptoms do not resolve 10/07/2016 Appointment: [phone] [phone] (30 min) Complex 10/07/2016 Patient Education: [...] [employer]. 07/01/2016 Appointment: Kavya Subramanian WPtel: [phone] [phone] [place] (30 min) Complex 07/01/2016 Patient Education: [...] his surgery. 05/05/2016 Appointment: Mary Alan WPtel: [facility] Surgical Clearance 05/05/2016 Patient Education: Patient Medication [...] [place] mobility. 02/23/2016 Appointment: Mary Alan WPtel: [facility] [place] (30 min) Complex 02/23/2016 Patient Education: Patient Medication Summary Completed 02/23/2016 Appointment: Mary Alan WPtel: [phone] [facility] [place] (30 min) Complex 02/19/2016 App[facility]ment[phone] [place] (15 min) Moderate 10/14/2015 Appointment: Lab [...] having loose bowel movements. Keep appointment with Director Of Enterprise Architecture Make an appointment with [facility]riles lab technician - to follow up on shortness of breath. Weakness - pt is to contact Juan Brantley in [facility] and Call clinic when he is ready [...] not improved. 07/24/2015 Appointment: [facility]anian [phone] [phone] [place] (30 min) Complex 07/24/2015 Patient Education: Patient [...] and hypertension. 09/15/2014 Appointment: Darleen Aburto WPtel[facility] (15 min) Moderate 09/15/2014 Patient [...] equina-increased incontinence of bowels-recommend follow up with homeland security program specialist-will discuss repeat MRI with Dr Aburto-keep [...] Patient Education: Hypertension Completed 07/04/2014 Instructions Comment CHECK STOOL STUDIES FOR BLOOD . Hypertension [...] for acute changes. Anemia-check stools for blood . Right shoulder pain - pt states [...] chair - [facility] . Cauda Equina Syndrome/diarrhea - Pt is to have abdominal surgery next week - Dr. Aburto in to assess pt - Pt cleared for surgery - pt is to notify clinic with any questions or concerns. Pt is to follow up after his surgery. . Iron deficiency anemia-check labs-continue oral iron [...] equina-check UA with C&S if indicated . Pt complains of abdominal pain, states [...] pain. Will check UA, CBC, CMP. . Gastroenteritis - Pt is to get [...] incontinence of bowels- recommend follow up with homeland security program specialist-will discuss repeat MRI with Dr Aburto-keep follow up appointment with Dr Aburto [place] 10 [place] [facility] [place] do PT evaluation for motorized wheelchair through [facility] . Cauda equina-chronic back pain-generalized weakness-bilateral shoulder pain/weakness- OA knees-patient to contact [facility] for mobility paperwork-will ask PT to [...] details. Drug induced constipation-rx for [employer]. [employer] [place] to do PT evaluation for motorized wheelchair through [facility] . Cauda equina-chronic back pain-generalized weakness-right shoulder pain/weakness- patient to contact [facility] for mobility paperwork-will ask PT to do a mobility exam through [facility] Drug induced constipation-rx for [employer]. . Hypertension - well controlled - continue with current medications, continue with no added salt diet. Pt has been encouraged to exercise daily. The pt has been advised to call the office if there are any acute concerns about change in blood pressure readings at home. Anemia - check labs Fatigue - due to anemia and hypertension. 1. check your blood pressures 3 times [...] Peng 4. Make an appointment with your [facility] lab technician - to follow up on shortness of breath. 5. Call us when you here about the mobility paperwork and we will fill out the paperwork. Juan Brantley in [facility] . Hypertension - The patient has been [...] having loose bowel movements. Keep appointment with Director Of Enterprise Architecture Make an appointment with nitriles lab technician - to follow up on shortness of breath. Weakness - pt is to contact Juan Brantley in [facility] and Call clinic when he is ready to fill out paperwork. . Cauda Equina, weakness, gait instability - [...] to call if symptoms do not improve. RECOMMEND CHEST XRAY AND SPUTUM CUTURE IF SYMPTOMS PERSIST . Cough-suspect virus-patient to monitor over the weekend-call Monday if symptoms persist and we will do a chest xray and sputum culture Cdiff-treat with flagyl as directed-call if symptoms do not resolve
--- OUTSIDE RECORDS SUMMARY | 2018-07-19 09:01 | XMS REPORT | CCD ---
Author Author Kavya Subramanian Organization [facility] Address [address] [place] [address] Phone Care Team Providers Care Addiction Therapist Name Role Phone PP Unavailable CCM Unavailable Summary Purpose Interface Exchange Insurance Providers Payer name Policy type / Coverage type Covered libertarian ID Effective Begin Date Effective End Date WPS Medicare Part B Commercial Insurance [id number] Unknown Unknown [employer]ALTH[employer]ICE Commercial Insurance [id number] Unknown Unknown Family history Father Diagnosis Age At Onset Coronary Artery Disease Unknown Mother Diagnosis Age At Onset Arthritis Unknown Sister Diagnosis Age At Onset Alzheimer's Disease Unknown Social History Social History Element Codes Description Effective Dates Marital status Unknown 07/04/2014 Number of children Unknown 2 07/04/2014 Living arrangements Unknown House 07/04/[address]: 9035924 Quit over 10 years ago 07/04/2014 Alcohol history Unknown occasionally drinks alcohol 07/04/2014 Frequency of drinks SNOMED CT: 415731177 Drinks rarely 07/04/2014 Allergies, Adverse Reactions, Alerts Substance Reaction Codes Entered Date Inactivated Date Status Iodine rash, pruritis RxNorm: 5933 03/04/2015 No Inactive Date Active tramadol pruritis RxNorm: 97682 07/04/2014 No Inactive Date Active Past Medical History Illness Codes Condition Status Onset Date Resolved Date Bilateral primary osteoarthritis of knee ICD-9: 715.96 [...] ICD-9: 401.9 ICD-10: I10 Active 09/15/2015 Unknown Irritable bowel syndrome with diarrhea ICD-9: 564.1 ICD-10: K58.0 Active 09/15/2015 Unknown Shortness of breath ICD- 9: 786.05 ICD-10: R06.02 Active 02/22/2016 Unknown Weakness ICD-9: 780.79 ICD-10: R53.1 Active 02/22/2016 Unknown Urinary tract infection, site [...] ICD-9: V04.81 ICD-10: Z23 Active 12/30/2014 Unknown Hematuria, unspecified ICD-9: 599.70 ICD-10: R31.9 Active 12/04/2014 Unknown Iron deficiency anemia, unspecified ICD-9: 280.9 [...] Problems Condition Codes Effective Dates Condition Status Bilateral primary osteoarthritis of knee ICD-9: 715.96 [...] hypertension ICD-9: 401.9 ICD-10: I10 09/15/2015 Active Irritable bowel syndrome with diarrhea ICD-9: 564.1 ICD-10: K58.0 09/15/2015 Active Shortness of breath ICD- 9: 786.05 ICD-10: R06.02 02/22/2016 Active Weakness ICD-9: 780.79 ICD-10: R53.1 02/22/2016 Active Urinary tract infection, site not [...] immunization ICD-9: V04.81 ICD-10: Z23 12/30/2014 Active Hematuria, unspecified ICD-9: 599.70 ICD-10: R31.9 12/04/2014 Active Iron deficiency anemia, unspecified ICD-9: 280.9 [...] Start Date Stop Date Status Fill Instructions lisinopril 40 mg tablet RxNorm: 077397 TAKE 1 TABLET BY MOUTH DAILY 08/01/2016 01/27/2017 Active Effexor XR 75 mg capsule,extended release RxNorm: 505774 TAKE 3 CAPSULES BY MOUTH EVERY MORNING 07/21/2016 11/17/2016 Active oxycodone 5 mg tablet RxNorm: 8594129 4 Tablet(s) PO daily 07/11/2016 09/23/2016 Active Movantik 25 mg tablet RxNorm: 1342287 1 Tablet(s) PO daily 07/01/2016 No Stop Date Active potassium chloride ER 20 mEq tablet,extended release RxNorm: 946214 1 TABLET(S) PO DAILY 06/14/2016 03/10/2017 Active Flagyl 500 mg tablet RxNorm: 549205 1 Tablet(s) PO TID 06/03/2016 06/12/2016 Inactive Flagyl 500 mg tablet RxNorm: 184163 1 Tablet(s) PO TID 06/03/2016 06/02/2016 Inactive oxycodone 5 mg tablet RxNorm: 6362418 4 Tablet(s) PO daily 04/27/2016 07/10/2016 Inactive Tamiflu 75 mg capsule RxNorm: 646273 1 Capsule(s) PO daily 04/19/2016 04/28/2016 Inactive Tamiflu 75 mg capsule RxNorm: 770278 1 Capsule(s) PO daily 04/19/2016 04/18/2016 Inactive Effexor XR 75 mg capsule,extended release RxNorm: 222213 TAKE 3 CAPSULES BY MOUTH EVERY MORNING 02/18/2016 04/17/2016 Inactive diclofenac sodium 75 mg tablet,delayed release RxNorm: 300294 1 TABLET(S) PO BID 02/18/2016 11/13/2016 Active Effexor XR 75 mg capsule,extended release RxNorm: 752690 Capsule(s) TAKE 3 CAPSULES BY MOUTH EVERY MORNING 02/17/2016 08/14/2016 Inactive oxycodone 5 mg tablet RxNorm: 2279161 4 Tablet(s) PO daily 02/04/2016 04/26/2016 Inactive gabapentin 600 mg tablet RxNorm: 588835 Tablet(s) TAKE 1 TABLET BY MOUTH TWICE DAILY 02/01/2016 10/27/2016 Active clopidogrel 75 mg tablet RxNorm: 171618 1 TABLET(S) PO QAM 02/01/2016 01/25/2017 Active Effexor XR 75 mg capsule,extended release RxNorm: 098595 TAKE 3 CAPSULES BY MOUTH EVERY MORNING 01/11/2016 02/09/2016 Inactive pantoprazole 40 mg tablet,delayed release RxNorm: 263734 TAKE 1 TABLET BY MOUTH DAILY 12/22/2015 12/15/2016 Active Effexor XR 75 mg capsule,extended release RxNorm: 110310 TAKE 3 CAPSULES BY MOUTH EVERY MORNING 11/16/2015 01/14/2016 Inactive lisinopril 40 mg tablet RxNorm: 411241 TAKE 1 TABLET BY MOUTH DAILY 11/05/2015 07/31/2016 Inactive Effexor XR 75 mg capsule,extended release RxNorm: 143518 TAKE 3 CAPSULES BY MOUTH EVERY MORNING 09/22/2015 11/20/2015 Inactive Augmentin 500 mg-125 mg tablet RxNorm: 558871 1 Tablet(s) PO TID 09/18/2015 09/24/2015 Inactive Anoro Ellipta 62.5 mcg-25 mcg/actuation powder for inhalation RxNorm: 3048324 1 INH DAILY 08/20/2015 No Stop Date Active Anoro Ellipta 62.5 mcg-25 mcg/actuation powder for inhalation RxNorm: 3753598 1 INH daily 08/20/2015 02/15/2016 Inactive lisinopril 40 mg tablet RxNorm: 419185 TAKE 1 TABLET BY MOUTH DAILY 08/10/2015 11/04/2015 Inactive gabapentin 600 mg tablet RxNorm: 138813 TAKE 1 TABLET BY MOUTH TWICE DAILY 08/10/2015 01/31/2016 Inactive terazosin 2 mg capsule RxNorm: 466408 TAKE ONE CAPSULE BY MOUTH EVERY DAY 07/27/2015 08/29/2016 Inactive hyoscyamine 0.125 mg sublingual tablet RxNorm: 2764920 1 Tablet(s) SL TID as needed 07/24/2015 08/02/2015 Inactive metronidazole 500 mg tablet RxNorm: 202214 1 Tablet(s) PO TID 07/24/2015 07/30/2015 Inactive Effexor XR 75 mg capsule,extended release RxNorm: 605664 TAKE 3 CAPSULES BY MOUTH EVERY MORNING 07/23/2015 09/20/2015 Inactive oxycodone 5 mg tablet RxNorm: 9799059 4 Tablet(s) PO daily 06/26/2015 02/03/2016 Inactive potassium chloride ER 20 mEq tablet,extended release RxNorm: 000035 1 Tablet(s) PO daily 06/25/2015 06/13/2016 Inactive oxycodone 5 mg tablet RxNorm: 7964512 4 Tablet(s) PO daily 04/17/2015 06/25/2015 Inactive rx written Anoro Ellipta 62.5 mcg-25 mcg/actuation powder for inhalation RxNorm: 5837133 1 INH daily 04/17/2015 08/19/2015 Inactive potassium chloride ER 20 mEq tablet,extended release RxNorm: 810671 1 Tablet(s) PO daily 03/23/2015 06/24/2015 Inactive triamcinolone acetonide 0.1 % topical cream RxNorm: 5364162 1 Application TOP BID 03/20/2015 No Stop Date Active carvedilol 12.5 mg tablet RxNorm: 003533 1 TABLET(S) PO BID 02/23/2015 08/21/2015 Inactive diclofenac sodium 75 mg tablet,delayed release RxNorm: 408638 1 Tablet(s) PO BID 02/18/2015 02/12/2016 Inactive carvedilol 12.5 mg tablet RxNorm: 283486 1 Tablet(s) PO BID 02/17/2015 02/11/2016 Inactive furosemide 40 mg tablet RxNorm: 348534 1 Tablet(s) PO daily 02/17/2015 02/11/2016 Inactive lisinopril 40 mg tablet RxNorm: 617114 TAKE 1 TABLET BY MOUTH DAILY 02/16/2015 08/09/2015 Inactive ceftriaxone 1 gram solution for injection RxNorm: 8498493 1 Gram(s) Inj daily mix with lidocaine 01/14/2015 01/17/2015 Inactive please supply 4 bottles of 1gram rocephin IM with 1 bottle of lidocaine 1% for home health to administer to pt starting 01/15 ceftriaxone 1 gram solution for injection RxNorm: 4072211 1 Gram(s) Inj daily 01/14/2015 01/13/2015 Inactive please supply 4 bottles of 1gram rocephin IM with 1 bottle of lidocaine 1% for home health to administer to pt starting 01/15 Augmentin 500 mg-125 mg tablet RxNorm: 022391 1 Tablet(s) PO BID 01/13/2015 01/22/2015 Inactive Keflex 500 mg capsule RxNorm: 224074 1 Capsule(s) PO TID 12/12/2014 12/11/2014 Inactive Keflex 500 mg capsule RxNorm: 510677 1 Capsule(s) PO TID 12/12/2014 12/18/2014 Inactive Augmentin 500 mg-125 mg tablet RxNorm: 386769 1 Tablet(s) PO BID 11/28/2014 12/02/2014 Inactive Augmentin 500 mg-125 mg tablet RxNorm: 407727 1 Tablet(s) PO BID 11/28/2014 11/27/2014 Inactive Cipro 500 mg tablet RxNorm: 216407 1 Tablet(s) PO BID 11/24/2014 11/27/2014 Inactive gabapentin 600 mg tablet RxNorm: 158088 1 Tablet(s) PO BID 11/17/2014 08/13/2015 Inactive gabapentin 600 mg tablet RxNorm: 055152 1 Tablet(s) PO BID 11/17/2014 11/16/2014 Inactive oxycodone 5 mg tablet RxNorm: 2458137 4 Tablet(s) PO daily 11/07/2014 02/04/2015 Inactive rx written Effexor XR 75 mg capsule,extended release RxNorm: 711872 3 Capsule(s) 225 PO QAM 11/05/2014 03/04/2015 Inactive clopidogrel 75 mg tablet RxNorm: 193189 1 Tablet(s) PO QAM 11/05/2014 01/28/2016 Inactive Effexor XR 75 mg capsule,extended release RxNorm: 395630 3 Capsule(s) 225 PO QAM 11/03/2014 11/04/2014 Inactive carvedilol 12.5 mg tablet RxNorm: 433483 1 Tablet(s) PO BID 10/28/2014 02/16/2015 Inactive Effexor XR 75 mg capsule,extended release RxNorm: 760331 3 Capsule(s) 225 PO QAM 10/28/2014 11/02/2014 Inactive Effexor XR 75 mg capsule,extended release RxNorm: 763247 3 Capsule(s) 225 PO QAM 10/28/2014 10/27/2014 Inactive carvedilol 12.5 mg tablet RxNorm: 869942 1 Tablet(s) PO BID 10/28/2014 10/27/2014 Inactive ceftriaxone 1 gram solution for injection RxNorm: 8526280 Inj 09/05/2014 09/05/2014 Inactive Cipro 500 mg tablet RxNorm: 439400 1 Tablet(s) PO BID 09/04/2014 09/03/2014 Inactive Cipro 500 mg tablet RxNorm: 008503 1 Tablet(s) PO BID 09/04/2014 09/10/2014 Inactive oxycodone 5 mg tablet RxNorm: 0986501 4 Tablet(s) PO daily 08/20/2014 11/06/2014 Inactive rx written lisinopril 40 mg tablet RxNorm: 917306 TAKE 1 TABLET BY MOUTH DAILY 08/18/2014 02/13/2015 Inactive nystatin 100,000 unit/mL oral suspension RxNorm: 866630 5 Milliliter(s) PO QID 07/04/2014 07/13/2014 Inactive [SAVINGS FOR NON-COVERED DRUGS -- BIN:[id number], PCN: [id number], Group: [id number], ID# [id number], Questions: . THIS IS NOT INSURANCE.] WelChol 3.75 gram oral powder packet RxNorm: 254250 1 PO BID No Start Date Active amlodipine 10 mg tablet RxNorm: 946344 1 Tablet(s) PO QAM No Start Date Active One A Day oral RxNorm: 72213 oral No Start Date Active Vitamin D2 400 unit capsule RxNorm: 151240 1 Capsule(s) PO daily No Start Date Active aspirin 81 mg tablet,delayed release RxNorm: 372811 1 Tablet(s) PO daily No Start Date Active melatonin 5 mg disintegrating tablet RxNorm: 8079856 1 Tablet(s) PO QHS No Start Date Active clonidine HCl 0.1 mg tablet RxNorm: 653783 1 Tablet(s) PO QHS No Start Date Active hydrochlorothiazide oral RxNorm: 5487 oral No Start Date Active Lasix oral RxNorm: 109626 oral No Start Date 02/17/2015 Inactive potassium chloride 20 meq RxNorm: 181736 PO daily No Start Date 03/22/2015 Inactive oxycodone 5 mg tablet RxNorm: 1790143 3-4 Tablet(s) PO QHS No Start Date 08/19/2014 Inactive terazosin 2 mg capsule RxNorm: 952922 1 Capsule(s) PO daily No Start Date 07/26/2015 Inactive Effexor XR 75 mg capsule,extended release RxNorm: 186296 3 Capsule(s) 225 PO QAM No Start Date 10/27/2014 Inactive gabapentin 600 mg tablet RxNorm: 121117 1 Tablet(s) PO BID No Start Date 11/16/2014 Inactive pantoprazole 40 mg tablet,delayed release RxNorm: 831350 oral No Start Date 12/21/2015 Inactive Anoro Ellipta 62.5 mcg-25 mcg/actuation powder for inhalation RxNorm: 4354036 1 INH daily No Start Date 04/16/2015 Inactive diclofenac sodium 75 mg tablet,delayed release RxNorm: 282501 1 Tablet(s) PO BID No Start Date 02/17/2015 Inactive clopidogrel 75 mg tablet RxNorm: 553844 1 Tablet(s) PO QAM No Start Date 11/04/2014 Inactive lisinopril 40 mg tablet RxNorm: 278951 1 Tablet(s) PO daily No Start Date 08/17/2014 Inactive carvedilol 12.5 mg tablet RxNorm: 157520 1 Tablet(s) PO BID No Start Date 10/27/2014 Inactive Medication Administered Medication Codes Instructions Start Date Status ceftriaxone 1 gram solution for injection RxNorm: 5761493 09/05/2014 No longer Active Immunizations Vaccine Codes Date Status Influenza CVX: 141 12/31/2014 completed Assessments Condition Codes Effective Dates Bilateral primary osteoarthritis of knee ICD-10: M17.0 ICD-9: 715.96 07/01/2016 Primary osteoarthritis, right shoulder ICD-10: M19.011 ICD-9: 715.91 07/01/2016 Polyneuropathy, unspecified ICD-10: G62.9 ICD-9: 355.9 07/01/2016 Pain in right shoulder ICD-10: M25.511 ICD-9: 719.41 07/01/2016 Drug induced constipation ICD-10: K59.03 ICD-9: 564.09 07/01/2016 Cauda equina syndrome ICD-10: G83.4 ICD-9: 344.60 07/01/2016 Primary osteoarthritis, left shoulder ICD-10: M19.012 ICD-9: 715.91 07/01/2016 Diarrhea, unspecified ICD-10: R19.7 ICD-9: 787.91 06/03/2016 Irritable bowel syndrome with diarrhea ICD-10: K58.0 ICD-9: 564.1 05/05/2016 Shortness of breath ICD-10: R06.02 ICD-9: 786.05 02/23/2016 Weakness ICD-10: R53.1 ICD-9: 780.79 02/23/2016 Urinary tract infection, site not specified [...] for immunization ICD-10: Z23 ICD-9: V04.81 12/31/2014 Hematuria, unspecified ICD-10: R31.9 ICD-9: 599.70 12/05/2014 Iron deficiency anemia, unspecified ICD-10: D50.9 ICD-9: [...] Visit Reason For Visit Effective Dates Notes back pain 07/01/2016 pre-op/surgery consult 05/05/2016 shoulder pain 02/23/2016 shortness of breath 09/16/2015 diarrhea 07/24/2015 rash 03/20/2015 sinus congestion 01/13/2015 vaccination against influenza 12/31/2014 hypertension 12/05/2014 hypertension 10/03/2014 hypertension 09/15/2014 urinary frequency 09/05/2014 hypertension 07/04/2014 c/o oral burning ? thrush Results Observation Observation Code Item Item Code Result Date Clostridium Diff Tox A/B Obt807 Cdiff Positive 06/03/2016 Total Psa PSA 1.53 [...] 27.4 % 03/20/2015 Cbc With Differential Ord2 Perkins% 12.8 % 03/20/2015 Cbc With Differential Ord2 [...] 1.69 K/ul 03/20/2015 Cbc With Differential Ord2 Perkins ABS# 0.8 K/ul 03/20/2015 Cbc With Differential Ord2 Eos ABS# 0.6 K/ul 03/20/2015 Cbc With Differential Ord2 Baso ABS# 0.0 K/ul 03/20/2015 Cbc With Differential Ord2 New Analyzer Notice Please note new ref ranges starting 03-04-2015 due to implemntation of new five part differential hematolgy analyzer. 03/20/2015 Comp Metabolic Ztp786 NA 138 mEq/L 02/26/2015 Comp Metabolic Hci685 K 4.0 mEq/L 02/26/2015 Comp Metabolic Moo525 CL 103 mEq/L 02/26/2015 Comp Metabolic Jwr432 CO2 28.0 mEq/L 02/26/2015 Comp Metabolic Xom411 ANION GAP 11 02/26/2015 Comp Metabolic Ihl304 GLUCOSE 95 mg/dL 02/26/2015 Comp Metabolic Kvx901 Creat 1.0 mg/dL 02/26/2015 Comp Metabolic Wqg880 eGFR 74 ml/min/1.73m2 02/26/2015 Comp Metabolic Soa758 BUN 19 mg/dL 02/26/2015 Comp Metabolic Cvb663 B/C Ratio 18.3 Ratio 02/26/2015 Comp Metabolic Zsu103 CALCIUM 9.1 mg/dL 02/26/2015 Comp Metabolic Cod846 ALK PHOS 87 U/L 02/26/2015 Comp Metabolic Kma017 AST(SGOT) 22 U/L 02/26/2015 Comp Metabolic Tkf404 ALT(SGPT) 24 U/L 02/26/2015 Comp Metabolic Gbn323 BILI T 0.4 mg/dL 02/26/2015 Comp Metabolic Hcu876 ALBUMIN 4.0 g/dL 02/26/2015 Comp Metabolic Yra272 TPRO 7.4 g/dL 02/26/2015 Comp Metabolic Ghe631 GLOB 3.4 g/dL 02/26/2015 Comp Metabolic Adi810 A/G Ratio 1.2 Ratio 02/26/2015 Comp Metabolic Whg966 Osmo 278 mOsmo 02/26/2015 Total Psa Ord10 PSA 2.25 ng/mL 02/26/2015 Culture Urine [id number] URINE CULTURE SEE NOTES 12/15/2014 Culture Urine [id number] Continued Results 12/15/2014 Urine Culture Ucult Complete >100,000 col/ml aerobic growth sent to ref lab 12/12/2014 Comp Metabolic Kqf533 NA 136 mEq/L 12/05/2014 Comp Metabolic Cxa629 K 4.3 mEq/L 12/05/2014 Comp Metabolic Bjv520 CL 104 mEq/L 12/05/2014 Comp Metabolic Ork274 CO2 29.0 mEq/L 12/05/2014 Comp Metabolic Rya086 ANION GAP 7 12/05/2014 Comp Metabolic Duv852 GLUCOSE 80 mg/dL 12/05/2014 Comp Metabolic Fav549 Creat 1.1 mg/dL 12/05/2014 Comp Metabolic Avf086 eGFR 68 ml/min/1.73m2 12/05/2014 Comp Metabolic Kzn361 BUN 21 mg/dL 12/05/2014 Comp Metabolic Vli380 B/C Ratio 18.8 Ratio 12/05/2014 Comp Metabolic Rwn517 CALCIUM 9.3 mg/dL 12/05/2014 Comp Metabolic Bit419 ALK PHOS 81 U/L 12/05/2014 Comp Metabolic Fqc343 AST(SGOT) 17 U/L 12/05/2014 Comp Metabolic Wfq487 ALT(SGPT) 16 U/L 12/05/2014 Comp Metabolic Pup135 BILI T 0.3 mg/dL 12/05/2014 Comp Metabolic Gbd949 ALBUMIN 4.0 g/dL 12/05/2014 Comp Metabolic Uqo731 TPRO 6.9 g/dL 12/05/2014 Comp Metabolic Tai125 GLOB 2.9 g/dL 12/05/2014 Comp Metabolic Clc197 A/G Ratio 1.4 Ratio 12/05/2014 Comp Metabolic Erv714 Osmo 274 mOsmo 12/05/2014 Cbc With Differential [...] Ord2 RDW 15.0 % 12/05/2014 Culture Urine [id number] URINE CULTURE SEE NOTES 11/27/2014 Culture Urine [id number] Continued Results 11/27/2014 Urine Culture Ucult Complete Growth of aerobe sent to ref lab 11/25/2014 B Type Natriuretic Peptide Djz1117 B-CORSET MAKER 121.00 pg/ml 10/08/2014 Cbc With Differential Ord2 [...] Folate Ord36 Folate 22.12 ng/mL 10/08/2014 B12 Yxu802 B12 >1500.00 pg/ml 10/08/2014 Comp Metabolic Qoe029 NA 135 mEq/L 10/08/2014 Comp Metabolic Kns342 K 4.5 mEq/L 10/08/2014 Comp Metabolic Owd068 CL 104 mEq/L 10/08/2014 Comp Metabolic Zoz035 CO2 25.0 mEq/L 10/08/2014 Comp Metabolic Rhq898 ANION GAP 11 10/08/2014 Comp Metabolic Wro690 GLUCOSE 73 mg/dL 10/08/2014 Comp Metabolic Gdl924 Creat 1.1 mg/dL 10/08/2014 Comp Metabolic Dto456 eGFR 71 ml/min/1.73m2 10/08/2014 Comp Metabolic Une526 BUN 21 mg/dL 10/08/2014 Comp Metabolic Bcz806 B/C Ratio 19.4 Ratio 10/08/2014 Comp Metabolic Ntg759 CALCIUM 9.0 mg/dL 10/08/2014 Comp Metabolic Rgd738 ALK PHOS 73 U/L 10/08/2014 Comp Metabolic Dha974 AST(SGOT) 15 U/L 10/08/2014 Comp Metabolic Rdj246 ALT(SGPT) 14 U/L 10/08/2014 Comp Metabolic Jzl804 BILI T 0.4 mg/dL 10/08/2014 Comp Metabolic Opi560 ALBUMIN 4.2 g/dL 10/08/2014 Comp Metabolic Coh487 TPRO 7.1 g/dL 10/08/2014 Comp Metabolic Jdb378 GLOB 2.9 g/dL 10/08/2014 Comp Metabolic Bmy782 A/G Ratio 1.4 Ratio 10/08/2014 Comp Metabolic Tcy440 Osmo 272 mOsmo 10/08/2014 B12 Hez260 B12 554.00 pg/ml 09/16/2014 Tibc Ord40 Iron 108 ug/dl 09/16/2014 Tibc Ord40 UIBC 281 ug/dL 09/16/2014 Tibc Ord40 TIBC 389 ug/dL 09/16/2014 Tibc Ord40 Fe-%Sat 27.8 % 09/16/2014 Folate Ord36 Folate >23.20 ng/mL 09/16/2014 Comp Metabolic Sie592 NA 134 mEq/L 09/16/2014 Comp Metabolic Ivs987 K 4.6 mEq/L 09/16/2014 Comp Metabolic Xjh024 CL 103 mEq/L 09/16/2014 Comp Metabolic Nww385 CO2 25.0 mEq/L 09/16/2014 Comp Metabolic Cec215 ANION GAP 11 09/16/2014 Comp Metabolic Eho639 GLUCOSE 93 mg/dL 09/16/2014 Comp Metabolic Hbj371 Creat 1.2 mg/dL 09/16/2014 Comp Metabolic Lwh941 eGFR 65 ml/min/1.73m2 09/16/2014 Comp Metabolic Svz037 BUN 23 mg/dL 09/16/2014 Comp Metabolic Wio956 B/C Ratio 19.8 Ratio 09/16/2014 Comp Metabolic Jtf678 CALCIUM 9.1 mg/dL 09/16/2014 Comp Metabolic Ume672 ALK PHOS 73 U/L 09/16/2014 Comp Metabolic Uiu335 AST(SGOT) 18 U/L 09/16/2014 Comp Metabolic Vze066 ALT(SGPT) 16 U/L 09/16/2014 Comp Metabolic Pii349 BILI T 0.4 mg/dL 09/16/2014 Comp Metabolic Ahd293 ALBUMIN 4.0 g/dL 09/16/2014 Comp Metabolic Ydc188 TPRO 7.1 g/dL 09/16/2014 Comp Metabolic Raj966 GLOB 3.1 g/dL 09/16/2014 Comp Metabolic Ujy915 A/G Ratio 1.3 Ratio 09/16/2014 Comp Metabolic Hrk596 Osmo 272 mOsmo 09/16/2014 Cbc With Differential [...] Ord22 FERRITIN 36.2 ng/mL 09/16/2014 Culture Urine [id number] URINE CULTURE SEE NOTES 09/08/2014 Urine Culture [...] Ord2 RDW 17.8 % 09/05/2014 Comp Metabolic Bog683 NA 133 mEq/L 09/05/2014 Comp Metabolic Gje873 K 4.9 mEq/L 09/05/2014 Comp Metabolic Lrs066 CL 99 mEq/L 09/05/2014 Comp Metabolic Eku713 CO2 26.0 mEq/L 09/05/2014 Comp Metabolic Qpy882 ANION GAP 13 09/05/2014 Comp Metabolic Xoy105 GLUCOSE 83 mg/dL 09/05/2014 Comp Metabolic Ovp598 Creat 1.5 mg/dL 09/05/2014 Comp Metabolic Nqm961 eGFR 47 ml/min/1.73m2 09/05/2014 Comp Metabolic Lav374 BUN 28 mg/dL 09/05/2014 Comp Metabolic Hmq166 B/C Ratio 18.3 Ratio 09/05/2014 Comp Metabolic Ohj114 CALCIUM 8.9 mg/dL 09/05/2014 Comp Metabolic Azr247 ALK PHOS 71 U/L 09/05/2014 Comp Metabolic Nmm343 AST(SGOT) 18 U/L 09/05/2014 Comp Metabolic Srr611 ALT(SGPT) 29 U/L 09/05/2014 Comp Metabolic Meo761 BILI T 0.6 mg/dL 09/05/2014 Comp Metabolic Ucg266 ALBUMIN 3.8 g/dL 09/05/2014 Comp Metabolic Lom107 TPRO 6.7 g/dL 09/05/2014 Comp Metabolic Fsr261 GLOB 2.9 g/dL 09/05/2014 Comp Metabolic Aey233 A/G Ratio 1.3 Ratio 09/05/2014 Comp Metabolic Bhq115 Osmo 271 mOsmo 09/05/2014 Total Psa Ord10 PSA 2.11 ng/mL 08/26/2014 Review of Systems System Result Effective Dates Gastrointestinal No abdominal pain 07/01/2016 Gastrointestinal constipation [...] Codes Date URINALYSIS NONAUTO W/O SCOPE CPT-4: 98381Zrpgofi 09/18/2015 ADMIN INFLUENZA VIRUS VAC CPT-4: A3848Uythvlg 12/31/2014 FLU VACC PRSV FREE INC ANTIG Formatting Model/CDA Sections, Assigned to/[employer] CPT-4: 71530Zqofxwq 12/31/2014 URINALYSIS NONAUTO W/O SCOPE CPT-4: 89112Airbeot 12/10/2014 URINALYSIS NONAUTO W/O SCOPE CPT-4: 18833Vxjngey 11/24/2014 ROCEPHIN, PER 250 MG CPT-4: E6671Hobafte 09/05/2014 THER/PROPH/DIAG INJ SC/IM CPT-4: 99887Nydifci 09/05/2014 URINALYSIS NONAUTO W/O SCOPE CPT-4: 49539Tiijqem 09/04/2014 Vital Signs Date Vital 07/01/2016 Blood Pressure 1: 138/68 Code: 8480-6 BMI: 37.2 Code: 32293-5 Heart Rate 1: 69 bpm Height: 5'9" SpO2: 93% Weight: 252 lbs 05/05/2016 Blood Pressure 1: 136/78 Code: 8480-6 BMI: 39.3 Code: 54047-3 Heart Rate 1: 72 bpm Height: 5'9" SpO2: 97% Weight: 266 lbs 02/23/2016 Blood Pressure 1: 145/70 Code: 8480-6 BMI: 37.5 Code: 22963-6 Heart Rate 1: 80 bpm Height: 5'9" Weight: 254 lbs 09/16/2015 Blood Pressure 1: 140/62 Code: 8480-6 Heart Rate 1: 77 bpm Height: 5'9" SpO2: 93% Weight: 07/24/2015 Blood Pressure 1: 152/68 Code: 8480-6 BMI: 37.7 Code: 19188-0 Heart Rate 1: 73 bpm Height: 5'9" SpO2: 97% Weight: 255 lbs 03/20/2015 Blood Pressure 1: 146/74 Code: 8480-6 BMI: 38.1 Code: 05768-8 Heart Rate 1: 63 bpm Height: 5'9" Weight: 258 lbs 01/13/2015 Blood Pressure 1: 120/58 Code: 8480-6 Heart Rate 1: 52 bpm Height: 5'9" SpO2: 97% Temperature: 37.1 (C) / 98.7 (F) Weight: 12/05/2014 Blood Pressure 1: 134/54 Code: 8480-6 BMI: 36.3 Code: 89198-1 Heart Rate 1: 76 bpm Height: 5'9" SpO2: 93% Weight: 246 lbs 10/03/2014 Blood Pressure 1: 132/60 Code: 8480-6 Heart Rate 1: 76 bpm Height: SpO2: 95% Weight: 254 lbs 09/15/2014 Blood Pressure 1: 120/68 Code: 8480-6 BMI: 37.5 Code: 24870-8 Heart Rate 1: 76 bpm Height: 5'9" SpO2: 93% Weight: 254 lbs 09/05/2014 Blood Pressure 1: 110/50 Code: 8480-6 BMI: 37.4 Code: 17339-8 Heart Rate 1: 79 bpm Height: 5'9" SpO2: 96% Temperature: 36.3 (C) / 97.4 (F) Weight: 253 lbs 07/04/2014 Blood Pressure 1: 138/72 Code: 8480-6 BMI: 37.1 Code: 49412-3 Heart Rate 1: 72 bpm Height: 5'9" SpO2: 93% Weight: 251 lbs Functional Status No Functional Status data History of Present Illness Symptom Name Status Result Effective Date Notes back pain Location diffusely 07/01/2016 None back [...] discomfort 12/05/2014 occasional ache in chest- seeing manager retention in - doing heart cath in October shortness of [...] discomfort 10/03/2014 occasional ache in chest- seeing manager retention in [place]- doing heart cath in October [...] data Encounters Encounter Performer Location Codes Date () [id number] EST. PATIENT, LEVEL IV Diagnosis: Cauda equina syndrome[ICD10: G83.4] Diagnosis: Pain in right shoulder[ICD10: M25.511] Diagnosis: Drug induced constipation[ICD10: K59.03] Diagnosis: Bilateral primary osteoarthritis of knee[ICD10: M17.0] Diagnosis: Primary osteoarthritis, right shoulder[ICD10: M19.011] Diagnosis: Primary osteoarthritis, left shoulder[ICD10: M19.012] Diagnosis: Polyneuropathy, unspecified[ICD10: G62.9] [facility] CPT-4: 44905 07/01/2016 57235 EST. PATIENT, LEVEL III Diagnosis: Cauda equina syndrome[ICD10: G83.4] Diagnosis: Irritable bowel syndrome with diarrhea[ICD10: K58.0] [facility] CPT-4: 19709 05/05/2016 57493 EST. PATIENT, LEVEL III Diagnosis: Pain in right shoulder[ICD10: M25.511] Diagnosis: Weakness[ICD10: R53.1] Diagnosis: Shortness of breath[ICD10: R06.02] Mary [facility] MD, [facility] CPT-4: 31798 02/23/2016 [id number] EST. PATIENT, LEVEL III Diagnosis: Essential (primary) hypertension[ICD10: I10] Diagnosis: Other insomnia[ICD10: G47.09] Diagnosis: Irritable bowel syndrome with diarrhea[ICD10: K58.0] Diagnosis: Shortness of breath[ICD10: R06.02] Diagnosis: Weakness[ICD10: R53.1] Mary Aburto MD, [facility] CPT-4: 16154 09/16/2015 [id number] EST. PATIENT, LEVEL III Diagnosis: Diarrhea, unspecified[ICD10: R19.7] Diagnosis: Nausea[ICD10: R11.0] Mary Aburto MD, [facility] CPT-4: 16103 07/24/2015 [id number] EST. PATIENT, LEVEL IV Diagnosis: Other iron deficiency anemias[ICD10: D50.8] Diagnosis: Rash and other nonspecific skin eruption[ICD10: R21] Diagnosis: Cauda equina syndrome[ICD10: G83.4] Diagnosis: Essential (primary) hypertension[ICD10: I10] Diagnosis: Other pruritus[ICD10: L29.8] Diagnosis: Shortness of breath[ICD10: R06.02] Mary Aburto MD, [facility] CPT-4: 02393 03/20/2015 [id number] EST. PATIENT, LEVEL IV Diagnosis: Urinary tract infection, site not specified[ICD10: N39.0] Diagnosis: Umbilical hernia without obstruction or gangrene[ICD10: K42.9] Diagnosis: Cauda equina syndrome[ICD10: G83.4] Mary Aburto MD, [facility] CPT- 4: 26967 01/13/2015 ([id number]) 64488 EST. PATIENT, LEVEL IV Diagnosis: Iron deficiency anemia, unspecified[ICD10: D50.9] Diagnosis: Essential (primary) hypertension[ICD10: I10] Diagnosis: Hematuria, unspecified[ICD10: R31.9] Kavya Aburto MD, [facility] CPT-4: 63301 12/05/2014 [id number]) [phone] EST. PATIENT, LEVEL IV Diagnosis: ESSENTIAL HYPERTENSION[ICD9: 401.9] Diagnosis: COPD (chronic obstructive pulmonary disease)[ICD9: 496] Diagnosis: ANEMIA[ICD9: 285.9] Diagnosis: SHORTNESS OF BREATH[ICD9: 786.05] Kavya Aburto MD, [facility] CPT- 4: 32419 10/03/2014 ([id number]) [id number] EST. PATIENT, LEVEL IV Diagnosis: ESSENTIAL HYPERTENSION[ICD9: 401.9] Diagnosis: ANEMIA[ICD9: 285.9] Diagnosis: MALAISE AND FATIGUE[ICD9: 780.79] Darleen Aburto MD, [facility] CPT- 4: 52599 09/15/2014 ([id number]) 73624 EST. PATIENT, LEVEL III Diagnosis: UTI[ICD9: 599.0] Diagnosis: Chronic back pain[ICD9: 724.5] Kavya Aburto MD, [facility] CPT-4: 74095 09/05/2014 ([id number]) OFFICE VISIT, NEW - LEVEL 4 Diagnosis: ESSENTIAL HYPERTENSION[ICD9: 401.9] Diagnosis: THRUSH[ICD9: 112.0] Diagnosis: Hyperlipidemia[ICD9: 272.4] Diagnosis: COPD (chronic obstructive pulmonary disease)[ICD9: 496] Diagnosis: Cauda equina syndrome[ICD9: 344.60] Diagnosis: History of prostate cancer[ICD9: V10.46] Kavya Aburto MD, [facility] CPT-4: 92133 07/04/2014 Plan of Care Planned Activity Notes Codes Status Date Visit Plan: Cauda equina-chronic back pain-generalized weakness-right shoulder pain/weakness- patient to contact [facility] for mobility paperwork-will ask PT to do a mobility exam through [facility] Drug induced constipation-rx for movantik. 07/01/2016 Visit Plan: Cauda equina-chronic back pain-generalized weakness-bilateral shoulder pain/weakness-OA knees-patient to contact [facility]anc[facility] for mobility paperwork- will ask PT to do a mobility exam through [employer]. Patient is non ambulatory due to [...] Appointment: Kavya Subramanian WPtel: [phone] [phone] (30 min) Complex 07/01/2016 Patient Education: Patient [...] his surgery. 05/05/2016 Appointment: Mary Alan WPtel: [phone] Surgical Clearance 05/05/2016 Patient Education: Patient Medication [...] Appointment: Mary Alan WPtel: [phone] [phone] [place] (30 min) Complex 02/23/2016 Patient Education: Patient Medication Summary Completed 02/23/2016 Appointment: Mary Alan WPtel: [phone] [phone] (30 min) Complex 02/19/2016 [facility]ointment: [phone] [place] (15 min) Moderate 10/14/2015 Appointment: [...] the office next week for practitioner to review.The pt is to call for acute concerns.Check your blood pressures 3 times a day and all me Monday - if they are still high we will have you increase your clonidine to 1 in the morning and 1 in the evening. Insomnia - Pt has been advised to increase the light in the house during the day, and start dimming the lights during the evening hours.Pt has been advised to cut out caffeine after 5pm.Daytime napping worsens night time insomnia.Irritable Bowel syndrome - Discussed need for adequate daily fiber intake. Continue with a healthy diet, and I have recommended addition of probiotic to the diet when having loose bowel movements. Keep appointment with GastroenterologistMake an appointment with manager retention - to follow up on shortness of breath. Weakness - pt is to contact Juan Godoy in [facility] and Call clinic when he is ready [...] improved. 07/24/2015 Appointment: [phone] [place] (30 min) Complex 07/24/2015 Patient Education: [...] other concerns. Iron deficiency anemia-check labs-continue oral ironHypertension - well controlled - continue with current medications, continue with no added salt diet. Pt has been encouraged to exercise daily.The pt has been advised to call the office if there are any acute concerns about change in blood pressure readings at home.Shortness of breath - pt states that he [...] umbilical hernia present, periumbilical area tender to palpation.Pt has a suprapubic catheter, has had normal [...] umbilical hernia present, periumbilical area tender to palpation.Pt has a suprapubic catheter, has had normal [...] Visit Plan: Iron deficiency anemia-check labs-continue oral ironHypertension - well controlled - continue with current medications, continue with no added salt diet. Pt has been encouraged to exercise daily.The pt has been advised to call the office if there are any acute concerns about change in blood pressure readings at home.CAD-recent stent-doing wellHematuria-neurogenic bladder due to cauda equina-check UA with C&S if indicated 12/05/2014 Appointment: (30 min) Complex 12/05/2014 Patient Education: Patient Medication Summary Completed 12/05/2014 Patient Education: Hypertension Completed 12/05/2014 Appointment: Lab Draw 11/24/2014 Patient Education: Patient Medication Summary Completed 11/24/2014 Visit Plan: Hypertension - well controlled - continue with current medications, continue with no added salt diet. Pt has been encouraged to exercise daily.The pt has been advised to call the office if there are any acute concerns about change in blood pressure readings at home.COPD - chronic problem for this patient. We have reviewed chronic treatment strategy, symptom control, and plans for acute exacerbations. No changes today to the current treatment plan as the patient is stable, monitor for acute changes.Anemia-check stools for blood 10/03/2014 Appointment: Follow up 10/03/2014 Patient Education: Patient Medication Summary Completed 10/03/2014 Patient Education: Hypertension Completed 10/03/2014 Visit Plan: Hypertension - well controlled - continue with current medications, continue with no added salt diet. Pt has been encouraged to exercise daily.The pt has been advised to call the office if there are any acute concerns about change in blood pressure readings at home.Anemia - check labsFatigue - due to anemia and hypertension. 09/15/2014 Appointment: Darleen Aburto WPtel: [facility] (15 min) Moderate 09/15/2014 Patient Education: [...] equina-increased incontinence of bowels-recommend follow up with medical language specialist-will discuss repeat MRI with Dr Aburto-keep [...] diet. Pt has been encouraged to exercise daily.The pt has been advised to call the office if there are any acute concerns about change in blood pressure readings at home.Thrush-RX for nystatin sent to patient's pharmacy-call if symptoms do not resolve COPD - chronic problem for this patient. We have reviewed chronic treatment strategy, symptom control, and plans for acute exacerbations. No changes today to the current treatment plan as the patient is stable, monitor for acute changes.Hyperlipidemia - pt has been counseled about appropriate [...] PT evaluation for motorized wheelchair through [facility] . Cauda equina-chronic back pain-generalized weakness-right shoulder pain/weakness- [facility] to [facility]-will ask PT to do a mobility exam through [facility] Drug induced constipation-rx for movantik. Nikolai Montalvo to do PT evaluation for motorized wheelchair through [facility] . Cauda equina-chronic back pain-generalized weakness-bilateral shoulder pain/weakness- OA knees-patient to contact [facility] for mobility paperwork-will ask PT to do [...] details. Drug induced constipation-rx for movantik. . Urinary Tract Infection-discussed natural and expected [...] incontinence of bowels- recommend follow up with medical language specialist-will discuss repeat MRI with Dr Aburto-keep [...] tolerated. Call if symptoms not improved. . Pt complains of abdominal pain, states [...] - will have pt contact Juan godoy. 1. check your blood pressures 3 times [...] Peng 4. Make an appointment with your manager retention - to follow up on shortness of breath. 5. Call us when you here about the mobility paperwork and we will fill out the paperwork. Juan Godoy in [facility] . Hypertension - The patient has been [...] having loose bowel movements. Keep appointment with [employer] Make an appointment with manager retention - to follow up on shortness of breath. Weakness - [facility] when he is ready [...] to follow up after his surgery. . Hypertension - well controlled - continue [...]
--- OUTSIDE RECORDS SUMMARY | 2018-07-19 09:03 | XMS REPORT | CCD ---
Author Author Kavya Subramanian Organization Darleen Aburto MD, [facility] Address [address] [place] [address] Phone Care Team Providers Care Trauma Coordinator Name Role Phone PP Unavailable CCM Unavailable Summary Purpose Interface Exchange Insurance Providers Payer name Policy type / Coverage type Covered alliance party ID Effective Begin Date Effective End Date WPS Medicare Part B Commercial Insurance [id number] Unknown Unknown [employer]ICE Commercial Insurance [id number] Unknown Unknown Family history Father Diagnosis Age At Onset Coronary Artery Disease Unknown Mother Diagnosis Age At Onset Arthritis Unknown Sister Diagnosis Age At Onset Alzheimer's Disease Unknown Social History Social History Element Codes Description Effective Dates Marital status Unknown 07/04/2014 Number of children Unknown 2 07/04/2014 Living arrangements Unknown House 07/04/[address]: 2378200 Quit over 10 years ago 07/04/2014 Alcohol history Unknown occasionally drinks alcohol 07/04/2014 Frequency of drinks SNOMED CT: 571961169 Drinks rarely 07/04/2014 Allergies, Adverse Reactions, Alerts Substance Reaction Codes Entered Date Inactivated Date Status Iodine rash, pruritis RxNorm: 5933 03/04/2015 No Inactive Date Active tramadol pruritis RxNorm: 78488 07/04/2014 No Inactive Date Active Past Medical History Illness Codes Condition Status Onset Date Resolved Date Cauda equina syndrome ICD- 9: 344.60 ICD-10: G83.4 Active 03/19/2015 Unknown Drug induced constipation ICD-9: 564.09 ICD-10: K59.03 Active 07/01/2016 Unknown Pain in right shoulder ICD-9: 719.41 ICD-10: M25.511 Active 02/22/2016 Unknown Diarrhea, unspecified ICD- 9: 787.91 ICD-10: [...] Problems Condition Codes Effective Dates Condition Status Cauda equina syndrome ICD- 9: 344.60 ICD-10: G83.4 03/19/2015 Active Drug induced constipation ICD-9: 564.09 ICD-10: K59.03 07/01/2016 Active Pain in right shoulder ICD-9: 719.41 ICD-10: M25.511 02/22/2016 Active Diarrhea, unspecified ICD- 9: 787.91 ICD-10: [...] Fill Instructions lisinopril 40 mg tablet RxNorm: 876531 TAKE 1 TABLET BY MOUTH DAILY 08/01/2016 01/27/2017 Active Effexor XR 75 mg capsule,extended release RxNorm: 199571 TAKE 3 CAPSULES BY MOUTH EVERY MORNING 07/21/2016 11/17/2016 Active oxycodone 5 mg tablet RxNorm: 3726052 4 Tablet(s) PO daily 07/11/2016 09/23/2016 Active Movantik 25 mg tablet RxNorm: 1714768 1 Tablet(s) PO daily 07/01/2016 No Stop Date Active potassium chloride ER 20 mEq tablet,extended release RxNorm: 048708 1 TABLET(S) PO DAILY 06/14/2016 03/10/2017 Active Flagyl 500 mg tablet RxNorm: 161774 1 Tablet(s) PO TID 06/03/2016 06/12/2016 Inactive Flagyl 500 mg tablet RxNorm: 454320 1 Tablet(s) PO TID 06/03/2016 06/02/2016 Inactive oxycodone 5 mg tablet RxNorm: 8018893 4 Tablet(s) PO daily 04/27/2016 07/10/2016 Inactive Tamiflu 75 mg capsule RxNorm: 748617 1 Capsule(s) PO daily 04/19/2016 04/28/2016 Inactive Tamiflu 75 mg capsule RxNorm: 469823 1 Capsule(s) PO daily 04/19/2016 04/18/2016 Inactive Effexor XR 75 mg capsule,extended release RxNorm: 769689 TAKE 3 CAPSULES BY MOUTH EVERY MORNING 02/18/2016 04/17/2016 Inactive diclofenac sodium 75 mg tablet,delayed release RxNorm: 026821 1 TABLET(S) PO BID 02/18/2016 11/13/2016 Active Effexor XR 75 mg capsule,extended release RxNorm: 637865 Capsule(s) TAKE 3 CAPSULES BY MOUTH EVERY MORNING 02/17/2016 08/14/2016 Active oxycodone 5 mg tablet RxNorm: 2053344 4 Tablet(s) PO daily 02/04/2016 04/26/2016 Inactive gabapentin 600 mg tablet RxNorm: 996549 Tablet(s) TAKE 1 TABLET BY MOUTH TWICE DAILY 02/01/2016 10/27/2016 Active clopidogrel 75 mg tablet RxNorm: 800014 1 TABLET(S) PO QAM 02/01/2016 01/25/2017 Active Effexor XR 75 mg capsule,extended release RxNorm: 546294 TAKE 3 CAPSULES BY MOUTH EVERY MORNING 01/11/2016 02/09/2016 Inactive pantoprazole 40 mg tablet,delayed release RxNorm: 476949 TAKE 1 TABLET BY MOUTH DAILY 12/22/2015 12/15/2016 Active Effexor XR 75 mg capsule,extended release RxNorm: 964957 TAKE 3 CAPSULES BY MOUTH EVERY MORNING 11/16/2015 01/14/2016 Inactive lisinopril 40 mg tablet RxNorm: 062480 TAKE 1 TABLET BY MOUTH DAILY 11/05/2015 07/31/2016 Inactive Effexor XR 75 mg capsule,extended release RxNorm: 111401 TAKE 3 CAPSULES BY MOUTH EVERY MORNING 09/22/2015 11/20/2015 Inactive Augmentin 500 mg-125 mg tablet RxNorm: 375820 1 Tablet(s) PO TID 09/18/2015 09/24/2015 Inactive Anoro Ellipta 62.5 mcg-25 mcg/actuation powder for inhalation RxNorm: 5059972 1 INH DAILY 08/20/2015 No Stop Date Active Anoro Ellipta 62.5 mcg-25 mcg/actuation powder for inhalation RxNorm: 3564959 1 INH daily 08/20/2015 02/15/2016 Inactive lisinopril 40 mg tablet RxNorm: 283696 TAKE 1 TABLET BY MOUTH DAILY 08/10/2015 11/04/2015 Inactive gabapentin 600 mg tablet RxNorm: 435838 TAKE 1 TABLET BY MOUTH TWICE DAILY 08/10/2015 01/31/2016 Inactive terazosin 2 mg capsule RxNorm: 738242 TAKE ONE CAPSULE BY MOUTH EVERY DAY 07/27/2015 08/29/2016 Active hyoscyamine 0.125 mg sublingual tablet RxNorm: 6585495 1 Tablet(s) SL TID as needed 07/24/2015 08/02/2015 Inactive metronidazole 500 mg tablet RxNorm: 509217 1 Tablet(s) PO TID 07/24/2015 07/30/2015 Inactive Effexor XR 75 mg capsule,extended release RxNorm: 434035 TAKE 3 CAPSULES BY MOUTH EVERY MORNING 07/23/2015 09/20/2015 Inactive oxycodone 5 mg tablet RxNorm: 1275939 4 Tablet(s) PO daily 06/26/2015 02/03/2016 Inactive potassium chloride ER 20 mEq tablet,extended release RxNorm: 081177 1 Tablet(s) PO daily 06/25/2015 06/13/2016 Inactive oxycodone 5 mg tablet RxNorm: 9179488 4 Tablet(s) PO daily 04/17/2015 06/25/2015 Inactive rx written Anoro Ellipta 62.5 mcg-25 mcg/actuation powder for inhalation RxNorm: 6338914 1 INH daily 04/17/2015 08/19/2015 Inactive potassium chloride ER 20 mEq tablet,extended release RxNorm: 327306 1 Tablet(s) PO daily 03/23/2015 06/24/2015 Inactive triamcinolone acetonide 0.1 % topical cream RxNorm: 7093927 1 Application TOP BID 03/20/2015 No Stop Date Active carvedilol 12.5 mg tablet RxNorm: 611831 1 TABLET(S) PO BID 02/23/2015 08/21/2015 Inactive diclofenac sodium 75 mg tablet,delayed release RxNorm: 634930 1 Tablet(s) PO BID 02/18/2015 02/12/2016 Inactive carvedilol 12.5 mg tablet RxNorm: 434981 1 Tablet(s) PO BID 02/17/2015 02/11/2016 Inactive furosemide 40 mg tablet RxNorm: 408838 1 Tablet(s) PO daily 02/17/2015 02/11/2016 Inactive lisinopril 40 mg tablet RxNorm: 657795 TAKE 1 TABLET BY MOUTH DAILY 02/16/2015 08/09/2015 Inactive ceftriaxone 1 gram solution for injection RxNorm: 9848241 1 Gram(s) Inj daily mix with lidocaine 01/14/2015 01/17/2015 Inactive please supply 4 bottles of 1gram rocephin IM with 1 bottle of lidocaine 1% for home health to administer to pt starting 01/15 ceftriaxone 1 gram solution for injection RxNorm: 6580540 1 Gram(s) Inj daily 01/14/2015 01/13/2015 Inactive please supply 4 bottles of 1gram rocephin IM with 1 bottle of lidocaine 1% for home health to administer to pt starting 01/15 Augmentin 500 mg-125 mg tablet RxNorm: 154575 1 Tablet(s) PO BID 01/13/2015 01/22/2015 Inactive Keflex 500 mg capsule RxNorm: 330809 1 Capsule(s) PO TID 12/12/2014 12/11/2014 Inactive Keflex 500 mg capsule RxNorm: 932690 1 Capsule(s) PO TID 12/12/2014 12/18/2014 Inactive Augmentin 500 mg-125 mg tablet RxNorm: 476865 1 Tablet(s) PO BID 11/28/2014 12/02/2014 Inactive Augmentin 500 mg-125 mg tablet RxNorm: 716335 1 Tablet(s) PO BID 11/28/2014 11/27/2014 Inactive Cipro 500 mg tablet RxNorm: 649842 1 Tablet(s) PO BID 11/24/2014 11/27/2014 Inactive gabapentin 600 mg tablet RxNorm: 133032 1 Tablet(s) PO BID 11/17/2014 08/13/2015 Inactive gabapentin 600 mg tablet RxNorm: 386537 1 Tablet(s) PO BID 11/17/2014 11/16/2014 Inactive oxycodone 5 mg tablet RxNorm: 3463921 4 Tablet(s) PO daily 11/07/2014 02/04/2015 Inactive rx written Effexor XR 75 mg capsule,extended release RxNorm: 495253 3 Capsule(s) 225 PO QAM 11/05/2014 03/04/2015 Inactive clopidogrel 75 mg tablet RxNorm: 651304 1 Tablet(s) PO QAM 11/05/2014 01/28/2016 Inactive Effexor XR 75 mg capsule,extended release RxNorm: 332865 3 Capsule(s) 225 PO QAM 11/03/2014 11/04/2014 Inactive carvedilol 12.5 mg tablet RxNorm: 361228 1 Tablet(s) PO BID 10/28/2014 02/16/2015 Inactive Effexor XR 75 mg capsule,extended release RxNorm: 101700 3 Capsule(s) 225 PO QAM 10/28/2014 11/02/2014 Inactive Effexor XR 75 mg capsule,extended release RxNorm: 425082 3 Capsule(s) 225 PO QAM 10/28/2014 10/27/2014 Inactive carvedilol 12.5 mg tablet RxNorm: 441645 1 Tablet(s) PO BID 10/28/2014 10/27/2014 Inactive ceftriaxone 1 gram solution for injection RxNorm: 0713888 Inj 09/05/2014 09/05/2014 Inactive Cipro 500 mg tablet RxNorm: 824041 1 Tablet(s) PO BID 09/04/2014 09/03/2014 Inactive Cipro 500 mg tablet RxNorm: 446085 1 Tablet(s) PO BID 09/04/2014 09/10/2014 Inactive oxycodone 5 mg tablet RxNorm: 5304180 4 Tablet(s) PO daily 08/20/2014 11/06/2014 Inactive rx written lisinopril 40 mg tablet RxNorm: 804701 TAKE 1 TABLET BY MOUTH DAILY 08/18/2014 02/13/2015 Inactive nystatin 100,000 unit/mL oral suspension RxNorm: 376571 5 Milliliter(s) PO QID 07/04/2014 07/13/2014 Inactive [SAVINGS FOR NON-COVERED DRUGS -- BIN:[id number], PCN: [id number], Group: XXXXX, ID# [id number], Questions: . THIS IS NOT INSURANCE.] WelChol 3.75 gram oral powder packet RxNorm: 430389 1 PO BID No Start Date Active amlodipine 10 mg tablet RxNorm: 619533 1 Tablet(s) PO QAM No Start Date Active One A Day oral RxNorm: 42185 oral No Start Date Active Vitamin D2 400 unit capsule RxNorm: 924726 1 Capsule(s) PO daily No Start Date Active aspirin 81 mg tablet,delayed release RxNorm: 604713 1 Tablet(s) PO daily No Start Date Active melatonin 5 mg disintegrating tablet RxNorm: 4816753 1 Tablet(s) PO QHS No Start Date Active clonidine HCl 0.1 mg tablet RxNorm: 159311 1 Tablet(s) PO QHS No Start Date Active hydrochlorothiazide oral RxNorm: 5487 oral No Start Date Active Lasix oral RxNorm: 445269 oral No Start Date 02/17/2015 Inactive potassium chloride 20 meq RxNorm: 132595 PO daily No Start Date 03/22/2015 Inactive oxycodone 5 mg tablet RxNorm: 8902951 3-4 Tablet(s) PO QHS No Start Date 08/19/2014 Inactive terazosin 2 mg capsule RxNorm: 008323 1 Capsule(s) PO daily No Start Date 07/26/2015 Inactive Effexor XR 75 mg capsule,extended release RxNorm: 041255 3 Capsule(s) 225 PO QAM No Start Date 10/27/2014 Inactive gabapentin 600 mg tablet RxNorm: 509525 1 Tablet(s) PO BID No Start Date 11/16/2014 Inactive pantoprazole 40 mg tablet,delayed release RxNorm: 122400 oral No Start Date 12/21/2015 Inactive Anoro Ellipta 62.5 mcg-25 mcg/actuation powder for inhalation RxNorm: 1483258 1 INH daily No Start Date 04/16/2015 Inactive diclofenac sodium 75 mg tablet,delayed release RxNorm: 525971 1 Tablet(s) PO BID No Start Date 02/17/2015 Inactive clopidogrel 75 mg tablet RxNorm: 244073 1 Tablet(s) PO QAM No Start Date 11/04/2014 Inactive lisinopril 40 mg tablet RxNorm: 393383 1 Tablet(s) PO daily No Start Date 08/17/2014 Inactive carvedilol 12.5 mg tablet RxNorm: 323864 1 Tablet(s) PO BID No Start Date 10/27/2014 Inactive Medication Administered Medication Codes Instructions Start Date Status ceftriaxone 1 gram solution for injection RxNorm: 4925402 09/05/2014 No longer Active Immunizations Vaccine Codes Date Status Influenza CVX: 141 12/31/2014 completed Assessments Condition Codes Effective Dates Drug induced constipation ICD-10: K59.03 ICD-9: 564.09 07/01/2016 Cauda equina syndrome ICD-10: G83.4 ICD-9: 344.60 07/01/2016 Pain in right shoulder ICD-10: M25.511 ICD-9: 719.41 07/01/2016 Diarrhea, unspecified ICD-10: R19.7 ICD-9: 787.91 06/03/2016 Irritable bowel syndrome with diarrhea ICD-10: K58.0 ICD-9: 564.1 05/05/2016 Shortness of breath ICD-10: R06.02 ICD-9: 786.05 02/23/2016 Weakness ICD-10: R53.1 ICD-9: 780.79 02/23/2016 Urinary tract infection, site not specified ICD-10: N39.0 ICD-9: 599.0 09/18/2015 Other insomnia ICD-10: G47.09 ICD-9: 327.09 09/16/2015 Essential (primary) hypertension ICD-10: I10 ICD-9: 401.9 09/16/2015 Nausea ICD-10: R11.0 ICD-9: 787.02 07/24/2015 Other iron 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 ICD-9: 280.1 03/20/2015 Rash and other nonspecific skin eruption ICD-10: R21 ICD-9: 782.1 03/20/2015 Other pruritus ICD-10: L29.8 ICD-9: 698.8 03/20/2015 Umbilical hernia without obstruction or gangrene ICD-10: K42.9 ICD-9: 553.1 01/13/2015 Encounter for immunization ICD-10: Z23 ICD-9: V04.81 12/31/2014 Iron deficiency anemia, unspecified ICD-10: D50.9 ICD-9: 280.9 12/05/2014 Hematuria, unspecified ICD-10: R31.9 ICD-9: 599.70 12/05/2014 SHORTNESS OF BREATH ICD-9: 786.05 10/03/2014 COPD (chronic obstructive pulmonary disease) ICD-9: 496 10/03/2014 ANEMIA ICD-9: 285.9 10/03/2014 ESSENTIAL HYPERTENSION ICD-9: 401.9 10/03/2014 MALAISE AND FATIGUE ICD-9: 780.79 09/15/2014 UTI ICD-9: 599.0 09/05/2014 Chronic back pain ICD-9: 724.5 09/05/2014 Hyperlipidemia ICD-9: 272.4 07/04/2014 THRUSH ICD-9: 112.0 07/04/2014 Cauda equina syndrome ICD-9: 344.60 07/04/2014 History of prostate cancer ICD-9: V10.46 07/04/2014 Reason For Visit Reason For Visit Effective Dates Notes back pain 07/01/2016 pre-op/surgery consult 05/05/2016 shoulder pain 02/23/2016 shortness of breath 09/16/2015 diarrhea 07/24/2015 rash 03/20/2015 sinus congestion 01/13/2015 vaccination against influenza 12/31/2014 hypertension 12/05/2014 hypertension 10/03/2014 hypertension 09/15/2014 urinary frequency 09/05/2014 hypertension 07/04/2014 c/o oral burning ? thrush Results Observation Observation Code Item Item Code Result Date Clostridium Diff Tox A/B [id number] Cdiff Positive 06/03/2016 Total Psa PSA 1.53 [...] 99.1 fl 03/20/2015 Cbc With Differential Ord2 [place]% 12.8 % 03/20/2015 Cbc With Differential Ord2 [...] 1.69 K/ul 03/20/2015 Cbc With Differential Ord2 [place] ABS# 0.8 K/ul 03/20/2015 Cbc With Differential Ord2 E[place] ABS# 0.6 K/ul 03/20/2015 Cbc With Differential Ord2 Baso ABS# 0.0 K/ul 03/20/2015 Cbc With Differential Ord2 New Analyzer Notice Please note new ref ranges starting 03-04-2015 due to implemntation of new five part differential hematolgy analyzer. 03/20/2015 Comp Metabolic Cro958 NA 138 mEq/L 02/26/2015 Comp Metabolic Peo172 K 4.0 mEq/L 02/26/2015 Comp Metabolic Lru591 CL 103 mEq/L 02/26/2015 Comp Metabolic Wlu789 CO2 28.0 mEq/L 02/26/2015 Comp Metabolic Ihh791 ANION GAP 11 02/26/2015 Comp Metabolic Qed668 GLUCOSE 95 mg/dL 02/26/2015 Comp Metabolic Zmr530 Creat 1.0 mg/dL 02/26/2015 Comp Metabolic Uha127 eGFR 74 ml/min/1.73m2 02/26/2015 Comp Metabolic Tov630 BUN 19 mg/dL 02/26/2015 Comp Metabolic Iej461 B/C Ratio 18.3 Ratio 02/26/2015 Comp Metabolic Bsu732 CALCIUM 9.1 mg/dL 02/26/2015 Comp Metabolic Eex137 ALK PHOS 87 U/L 02/26/2015 Comp Metabolic Mjq496 AST(SGOT) 22 U/L 02/26/2015 Comp Metabolic Rnd332 ALT(SGPT) 24 U/L 02/26/2015 Comp Metabolic Jzs864 BILI T 0.4 mg/dL 02/26/2015 Comp Metabolic Gga715 ALBUMIN 4.0 g/dL 02/26/2015 Comp Metabolic Mbm500 TPRO 7.4 g/dL 02/26/2015 Comp Metabolic Hud271 GLOB 3.4 g/dL 02/26/2015 Comp Metabolic Nuu545 A/G Ratio 1.2 Ratio 02/26/2015 Comp Metabolic Xyk847 Osmo 278 mOsmo 02/26/2015 Total Psa Ord10 PSA 2.25 ng/mL 02/26/2015 Culture Urine [id number] URINE CULTURE SEE NOTES 12/15/2014 Culture Urine [id number] Continued Results 12/15/2014 Urine Culture Ucult Complete >100,000 col/ml aerobic growth sent to ref lab 12/12/2014 Comp Metabolic Mrz766 NA 136 mEq/L 12/05/2014 Comp Metabolic Ahs065 K 4.3 mEq/L 12/05/2014 Comp Metabolic Dam951 CL 104 mEq/L 12/05/2014 Comp Metabolic Sbl221 CO2 29.0 mEq/L 12/05/2014 Comp Metabolic Lob654 ANION GAP 7 12/05/2014 Comp Metabolic Uzq859 GLUCOSE 80 mg/dL 12/05/2014 Comp Metabolic Ten708 Creat 1.1 mg/dL 12/05/2014 Comp Metabolic Mst837 eGFR 68 ml/min/1.73m2 12/05/2014 Comp Metabolic Lkt851 BUN 21 mg/dL 12/05/2014 Comp Metabolic Wti259 B/C Ratio 18.8 Ratio 12/05/2014 Comp Metabolic Skc898 CALCIUM 9.3 mg/dL 12/05/2014 Comp Metabolic Oxy283 ALK PHOS 81 U/L 12/05/2014 Comp Metabolic Uvd093 AST(SGOT) 17 U/L 12/05/2014 Comp Metabolic Ytx329 ALT(SGPT) 16 U/L 12/05/2014 Comp Metabolic Hdm552 BILI T 0.3 mg/dL 12/05/2014 Comp Metabolic Oyc870 ALBUMIN 4.0 g/dL 12/05/2014 Comp Metabolic Upo862 TPRO 6.9 g/dL 12/05/2014 Comp Metabolic Wtl425 GLOB 2.9 g/dL 12/05/2014 Comp Metabolic Upx020 A/G Ratio 1.4 Ratio 12/05/2014 Comp Metabolic Gbd344 Osmo 274 mOsmo 12/05/2014 Cbc With Differential [...] Ord2 RDW 15.0 % 12/05/2014 Culture Urine [id number] URINE CULTURE SEE NOTES 11/27/2014 Culture Urine [id number] Continued Results 11/27/2014 Urine Culture Ucult Complete Growth of aerobe sent to ref lab 11/25/2014 B Type Natriuretic Peptide Igv5111 B-EPIC PROFESSIONAL 121.00 pg/ml 10/08/2014 Cbc With Differential Ord2 [...] Folate Ord36 Folate 22.12 ng/mL 10/08/2014 B12 Vfm432 B12 >1500.00 pg/ml 10/08/2014 Comp Metabolic Kov193 NA 135 mEq/L 10/08/2014 Comp Metabolic Aee612 K 4.5 mEq/L 10/08/2014 Comp Metabolic Jwn203 CL 104 mEq/L 10/08/2014 Comp Metabolic Sso504 CO2 25.0 mEq/L 10/08/2014 Comp Metabolic Mkj159 ANION GAP 11 10/08/2014 Comp Metabolic Sly740 GLUCOSE 73 mg/dL 10/08/2014 Comp Metabolic Bop644 Creat 1.1 mg/dL 10/08/2014 Comp Metabolic Mlj187 eGFR 71 ml/min/1.73m2 10/08/2014 Comp Metabolic Isk234 BUN 21 mg/dL 10/08/2014 Comp Metabolic Vth561 B/C Ratio 19.4 Ratio 10/08/2014 Comp Metabolic Pdr614 CALCIUM 9.0 mg/dL 10/08/2014 Comp Metabolic Ntq546 ALK PHOS 73 U/L 10/08/2014 Comp Metabolic Mtf132 AST(SGOT) 15 U/L 10/08/2014 Comp Metabolic Rrz041 ALT(SGPT) 14 U/L 10/08/2014 Comp Metabolic Cjw649 BILI T 0.4 mg/dL 10/08/2014 Comp Metabolic Txe469 ALBUMIN 4.2 g/dL 10/08/2014 Comp Metabolic Ush126 TPRO 7.1 g/dL 10/08/2014 Comp Metabolic Uri183 GLOB 2.9 g/dL 10/08/2014 Comp Metabolic Fex512 A/G Ratio 1.4 Ratio 10/08/2014 Comp Metabolic Eui461 Osmo 272 mOsmo 10/08/2014 B12 Czx738 B12 554.00 pg/ml 09/16/2014 Tibc Ord40 Iron 108 ug/dl 09/16/2014 Tibc Ord40 UIBC 281 ug/dL 09/16/2014 Tibc Ord40 TIBC 389 ug/dL 09/16/2014 Tibc Ord40 Fe-%Sat 27.8 % 09/16/2014 Folate Ord36 Folate >23.20 ng/mL 09/16/2014 Comp Metabolic Ckj829 NA 134 mEq/L 09/16/2014 Comp Metabolic Ced944 K 4.6 mEq/L 09/16/2014 Comp Metabolic Yzi978 CL 103 mEq/L 09/16/2014 Comp Metabolic Hbe301 CO2 25.0 mEq/L 09/16/2014 Comp Metabolic Rrn834 ANION GAP 11 09/16/2014 Comp Metabolic Wqn990 GLUCOSE 93 mg/dL 09/16/2014 Comp Metabolic Hml023 Creat 1.2 mg/dL 09/16/2014 Comp Metabolic Byt229 eGFR 65 ml/min/1.73m2 09/16/2014 Comp Metabolic Nwr364 BUN 23 mg/dL 09/16/2014 Comp Metabolic Uzc649 B/C Ratio 19.8 Ratio 09/16/2014 Comp Metabolic Int769 CALCIUM 9.1 mg/dL 09/16/2014 Comp Metabolic Cue944 ALK PHOS 73 U/L 09/16/2014 Comp Metabolic Wck274 AST(SGOT) 18 U/L 09/16/2014 Comp Metabolic Zxx793 ALT(SGPT) 16 U/L 09/16/2014 Comp Metabolic Jxx570 BILI T 0.4 mg/dL 09/16/2014 Comp Metabolic Amj756 ALBUMIN 4.0 g/dL 09/16/2014 Comp Metabolic Lve518 TPRO 7.1 g/dL 09/16/2014 Comp Metabolic Riu149 GLOB 3.1 g/dL 09/16/2014 Comp Metabolic Hpg576 A/G Ratio 1.3 Ratio 09/16/2014 Comp Metabolic Mha742 Osmo 272 mOsmo 09/16/2014 Cbc With Differential [...] Ord22 FERRITIN 36.2 ng/mL 09/16/2014 Culture Urine [id number] URINE CULTURE SEE NOTES 09/08/2014 Urine Culture [...] Ord2 RDW 17.8 % 09/05/2014 Comp Metabolic Igi245 NA 133 mEq/L 09/05/2014 Comp Metabolic Uon827 K 4.9 mEq/L 09/05/2014 Comp Metabolic Tdv493 CL 99 mEq/L 09/05/2014 Comp Metabolic Mip741 CO2 26.0 mEq/L 09/05/2014 Comp Metabolic Nsc924 ANION GAP 13 09/05/2014 Comp Metabolic Qpa248 GLUCOSE 83 mg/dL 09/05/2014 Comp Metabolic Adi091 Creat 1.5 mg/dL 09/05/2014 Comp Metabolic Jsa023 eGFR 47 ml/min/1.73m2 09/05/2014 Comp Metabolic Hbt039 BUN 28 mg/dL 09/05/2014 Comp Metabolic Bnw319 B/C Ratio 18.3 Ratio 09/05/2014 Comp Metabolic Gdi422 CALCIUM 8.9 mg/dL 09/05/2014 Comp Metabolic Mce214 ALK PHOS 71 U/L 09/05/2014 Comp Metabolic Ayv083 AST(SGOT) 18 U/L 09/05/2014 Comp Metabolic Owh104 ALT(SGPT) 29 U/L 09/05/2014 Comp Metabolic Dpw879 BILI T 0.6 mg/dL 09/05/2014 Comp Metabolic Gwa579 ALBUMIN 3.8 g/dL 09/05/2014 Comp Metabolic Jav254 TPRO 6.7 g/dL 09/05/2014 Comp Metabolic Naw532 GLOB 2.9 g/dL 09/05/2014 Comp Metabolic Izg325 A/G Ratio 1.3 Ratio 09/05/2014 Comp Metabolic Pkt957 Osmo 271 mOsmo 09/05/2014 Total Psa Ord10 [...] Codes Date URINALYSIS NONAUTO W/O SCOPE CPT-4: 80054Jismjzk 09/18/2015 ADMIN INFLUENZA VIRUS VAC CPT-4: F2100Lgsbfrp 12/31/2014 FLU VACC PRSV FREE INC ANTIG Formatting Model/CDA Sections, Assigned to/Manolo [place] CPT-4: 22362Mtuustr 12/31/2014 URINALYSIS NONAUTO W/O SCOPE CPT-4: 20603Uwoijms 12/10/2014 URINALYSIS NONAUTO W/O SCOPE CPT-4: 50866Esqnyuw 11/24/2014 ROCEPHIN, PER 250 MG CPT-4: V8529Ijgexna 09/05/2014 THER/PROPH/DIAG INJ SC/IM CPT-4: 60254Wartrfk 09/05/2014 URINALYSIS NONAUTO W/O SCOPE CPT-4: 44187Jenjjlw 09/04/2014 Vital Signs Date Vital 07/01/2016 Blood Pressure 1: 138/68 Code: 8480-6 BMI: 37.2 Code: 01253-4 Heart Rate 1: 69 bpm Height: 5'9" SpO2: 93% Weight: 252 lbs 05/05/2016 Blood Pressure 1: 136/78 Code: 8480-6 BMI: 39.3 Code: 05146-8 Heart Rate 1: 72 bpm Height: 5'9" SpO2: 97% Weight: 266 lbs 02/23/2016 Blood Pressure 1: 145/70 Code: 8480-6 BMI: 37.5 Code: 33096-5 Heart Rate 1: 80 bpm Height: 5'9" Weight: 254 lbs 09/16/2015 Blood Pressure 1: 140/62 Code: 8480-6 Heart Rate 1: 77 bpm Height: 5'9" SpO2: 93% Weight: 07/24/2015 Blood Pressure 1: 152/68 Code: 8480-6 BMI: 37.7 Code: 51743-1 Heart Rate 1: 73 bpm Height: 5'9" SpO2: 97% Weight: 255 lbs 03/20/2015 Blood Pressure 1: 146/74 Code: 8480-6 BMI: 38.1 Code: 34235-2 Heart Rate 1: 63 bpm Height: 5'9" Weight: 258 lbs 01/13/2015 Blood Pressure 1: 120/58 Code: 8480-6 Heart Rate 1: 52 bpm Height: 5'9" SpO2: 97% Temperature: 37.1 (C) / 98.7 (F) Weight: 12/05/2014 Blood Pressure 1: 134/54 Code: 8480-6 BMI: 36.3 Code: 20463-3 Heart Rate 1: 76 bpm Height: 5'9" SpO2: 93% Weight: 246 lbs 10/03/2014 Blood Pressure 1: 132/60 Code: 8480-6 Heart Rate 1: 76 bpm Height: SpO2: 95% Weight: 254 lbs 09/15/2014 Blood Pressure 1: 120/68 Code: 8480-6 BMI: 37.5 Code: 39297-3 Heart Rate 1: 76 bpm Height: 5'9" SpO2: 93% Weight: 254 lbs 09/05/2014 Blood Pressure 1: 110/50 Code: 8480-6 BMI: 37.4 Code: 34281-0 Heart Rate 1: 79 bpm Height: 5'9" SpO2: 96% Temperature: 36.3 (C) / 97.4 (F) Weight: 253 lbs 07/04/2014 Blood Pressure 1: 138/72 Code: 8480-6 BMI: 37.1 Code: 05095-9 Heart Rate 1: 72 bpm Height: 5'9" [...] discomfort 12/05/2014 occasional ache in chest- seeing hand turner in [place]- doing heart cath in October [...] discomfort 10/03/2014 occasional ache in chest- seeing hand turner in [place]- doing heart cath in October [...] data Encounters Encounter Performer Location Codes Date ([id number]) [id number] EST. PATIENT, LEVEL IV Diagnosis: Cauda equina syndrome[ICD10: G83.4] Diagnosis: Pain in right shoulder[ICD10: M25.511] Diagnosis: Drug induced constipation[ICD10: K59.03] Kavya Aburto MD, [facility] CPT-4: 84954 07/01/2016 [id number] EST. PATIENT, LEVEL III Diagnosis: Cauda equina syndrome[ICD10: G83.4] Diagnosis: Irritable bowel syndrome with diarrhea[ICD10: K58.0] Mary Aburto MD, [facility] CPT-4: 43595 05/05/2016 [id number] EST. PATIENT, LEVEL III Diagnosis: Pain in right shoulder[ICD10: M25.511] Diagnosis: Weakness[ICD10: R53.1] Diagnosis: Shortness of breath[ICD10: R06.02] Mary Aburto MD, [facility] CPT-4: 97911 02/23/2016 [id number] EST. PATIENT, LEVEL III Diagnosis: Essential (primary) hypertension[ICD10: I10] Diagnosis: Other insomnia[ICD10: G47.09] Diagnosis: Irritable bowel syndrome with diarrhea[ICD10: K58.0] Diagnosis: Shortness of breath[ICD10: R06.02] Diagnosis: Weakness[ICD10: R53.1] Mary Aburto MD, [facility] CPT-4: 10310 09/16/2015 11250 EST. PATIENT, LEVEL III Diagnosis: Diarrhea, unspecified[ICD10: R19.7] Diagnosis: Nausea[ICD10: R11.0] Mary Aburto MD, [facility] CPT-4: 31853 07/24/2015 10900 EST. PATIENT, LEVEL IV Diagnosis: Other iron deficiency anemias[ICD10: D50.8] Diagnosis: Rash and other nonspecific skin eruption[ICD10: R21] Diagnosis: Cauda equina syndrome[ICD10: G83.4] Diagnosis: Essential (primary) hypertension[ICD10: I10] Diagnosis: Other pruritus[ICD10: L29.8] Diagnosis: Shortness of breath[ICD10: R06.02] Mary Aburto MD, [facility] CPT-4: 54085 03/20/2015 33158 EST. PATIENT, LEVEL IV Diagnosis: Urinary tract infection, site not specified[ICD10: N39.0] Diagnosis: Umbilical hernia without obstruction or gangrene[ICD10: K42.9] Diagnosis: Cauda equina syndrome[ICD10: G83.4] Mary Aburto MD, [facility] CPT- 4: 13769 01/13/2015 ([id number]) [id number] EST. PATIENT, LEVEL IV Diagnosis: Iron deficiency anemia, unspecified[ICD10: D50.9] Diagnosis: Essential (primary) hypertension[ICD10: I10] Diagnosis: Hematuria, unspecified[ICD10: R31.9] Kavya Aburto MD, [facility] CPT-4: 62563 12/05/2014 ([id number]) 01309 EST. PATIENT, LEVEL IV Diagnosis: ESSENTIAL HYPERTENSION[ICD9: 401.9] Diagnosis: COPD (chronic obstructive pulmonary disease)[ICD9: 496] Diagnosis: ANEMIA[ICD9: 285.9] Diagnosis: SHORTNESS OF BREATH[ICD9: 786.05] Kavya Aburto MD, [facility] CPT- 4: 03571 10/03/2014 ([id number]) [id number] EST. PATIENT, LEVEL IV Diagnosis: ESSENTIAL HYPERTENSION[ICD9: 401.9] Diagnosis: ANEMIA[ICD9: 285.9] Diagnosis: MALAISE AND FATIGUE[ICD9: 780.79] Darleen Aburto MD, [facility] CPT- 4: 07413 09/15/2014 ([id number]) [id number] EST. PATIENT, LEVEL III Diagnosis: UTI[ICD9: 599.0] Diagnosis: Chronic back pain[ICD9: 724.5] Kavya Aburto MD, [facility] CPT-4: 95536 09/05/2014 ([id number]) OFFICE VISIT, NEW - LEVEL 4 Diagnosis: ESSENTIAL HYPERTENSION[ICD9: 401.9] Diagnosis: THRUSH[ICD9: 112.0] Diagnosis: Hyperlipidemia[ICD9: 272.4] Diagnosis: COPD (chronic obstructive pulmonary disease)[ICD9: 496] Diagnosis: Cauda equina syndrome[ICD9: 344.60] Diagnosis: History of prostate cancer[ICD9: V10.46] Kavya Aburto MD, [facility] CPT-4: 27894 07/04/2014 Plan of Care Planned Activity Notes Codes Status Date Visit Plan: Cauda equina-chronic back pain-generalized weakness-right shoulder pain/weakness- patient to contact juan blancas for mobility paperwork-will ask PT to do a mobility exam through [facility] Drug induced constipation-rx for movantik. 07/01/2016 Appointment: Kavya Subramanian WPtel: [phone] [phone] [place] (30 min) Complex 07/01/2016 Patient Education: Patient Medication Summary Completed 07/01/2016 Patient Education: Obesity Completed 07/01/2016 Patient Education: Patient Medication Summary Completed 06/03/2016 Visit Plan: Cauda Equina Syndrome/diarrhea - Pt is to have abdominal surgery next week - Dr. Aburto in to assess pt - Pt cleared for surgery - pt is to notify clinic with any questions or concerns. Pt is to follow up after his surgery. 05/05/2016 Appointment: Mary Alan WPtel: [phone] [phone] Surgical Clearance 05/05/2016 Patient Education: Patient Medication [...] [facility] mobility. 02/23/2016 [facility]ment: [phone] [phone] [place] ([facility] min) Complex 02/23/2016 Patient Education: Patient Medication Summary Completed 02/23/2016 App[facility]ment: [phone] [phone] [place] ([facility] [place]) Complex 02/19/2016 [facility]: [id number] [place] (15 min) Moderate 10/14/2015 Appointment: Lab [...] Keep appointment with GastroenterologistMake an appointment with hand turner - to follow up on shortness of breath. Weakness - pt is to contact Juan Godoy in [facility] and Call clinic when he is ready [...] not improved. 07/24/2015 Appointment: Kavya Subramanian WPtel: [address] [place], [place] [phone] (30 min) [facility] 07/24/2015 Patient Education: Patient Medication Summary Completed [...] and hypertension. 09/15/2014 Appointment: Darleen Aburto WPtel: [address] [place], [place] [id number] (15 min) Moderate 09/15/2014 Patient Education: Patient [...] equina-increased incontinence of bowels-recommend follow up with supervisory investigative specialist-will discuss repeat MRI with Dr Aburto-keep [...] Patient Education: Hypertension Completed 07/04/2014 Instructions Comment . Pt complains of abdominal pain, states [...] periumbilical pain. Will check UA, CBC, CMP. CHECK STOOL STUDIES FOR BLOOD . Hypertension [...] acute changes. Anemia-check stools for blood . Hypertension - well controlled - continue with current medications, continue with no added salt diet. Pt has been encouraged to exercise daily. The pt has been advised to call the office if there are any acute concerns about change in blood pressure readings at home. Anemia - check labs Fatigue - due to anemia and hypertension. . Iron deficiency anemia-check labs-continue oral iron [...] cauda equina-check UA with C&S if indicated 1. check your blood pressures 3 times [...] Peng 4. Make an appointment with your hand turner - to follow up on shortness of breath. 5. Call us when you here about the mobility paperwork and we will fill out the paperwork. [facility] in [facility] . Hypertension - The patient has been [...] having loose bowel movements. Keep appointment with Company Controller Make an appointment with hand turner - to follow up on shortness of breath. Weakness - pt is to contact Juan Godoy in [facility] and Call clinic when he is ready to fill out paperwork. . Right shoulder pain - pt states [...] will have pt contact Juan godoy. . Rash - pt states that he [...] incontinence of bowels- recommend follow up with supervisory investigative specialist-will discuss repeat MRI with Dr Aburto-keep follow up appointment with Dr Aburto in 10 days . Cauda Equina Syndrome/diarrhea - Pt is to have abdominal surgery next week - Dr. Aburto in to assess pt - Pt cleared for surgery - pt is to notify clinic with any questions or concerns. Pt is to follow up after his surgery. . Pt complains of abdominal pain, states [...] to assure normal liver response to medications. Nikolai Montalvo to do PT evaluation for motorized wheelchair through [facility] . Cauda equina-chronic back pain-generalized weakness-right shoulder pain/weakness- patient to contact juan blancas for mobility paperwork-will ask PT to do a mobility exam through [facility] Drug induced constipation-rx for movantik.
--- OUTSIDE RECORDS SUMMARY | 2018-07-19 09:06 | XMS REPORT | CCD ---
Author Author Kavya Subramanian Organization Darleen Aburto MD, [facility] Address [address] [place] [address] Phone Care Team Providers Care Business Objects Report Developer Name Role Phone PP Unavailable CCM Unavailable Summary Purpose Interface Exchange Insurance Providers Payer name Policy type / Coverage type Covered libertarian ID Effective Begin Date Effective End Date WPS Medicare Part B Commercial Insurance [id number] Unknown Unknown [employer]ALTH[employer]ICE Commercial Insurance [id number] Unknown Unknown Family history Father Diagnosis Age At Onset Coronary Artery Disease Unknown Mother Diagnosis Age At Onset Arthritis Unknown Sister Diagnosis Age At Onset Alzheimer's Disease Unknown Social History Social History Element Codes Description Effective Dates Marital status Unknown 07/04/2014 Number of children Unknown 2 07/04/2014 Living arrangements Unknown House 07/04/[address]: 2744048 Quit over 10 years ago 07/04/2014 Alcohol history Unknown occasionally drinks alcohol 07/04/2014 Frequency of drinks SNOMED CT: 688434913 Drinks rarely 07/04/2014 Allergies, Adverse Reactions, Alerts Substance Reaction Codes Entered Date Inactivated Date Status Iodine rash, pruritis RxNorm: 5933 03/04/2015 No Inactive Date Active tramadol pruritis RxNorm: 78935 07/04/2014 No Inactive Date Active Past Medical [...] Start Date Stop Date Status Fill Instructions Effexor XR 75 mg capsule,extended release RxNorm: 238210 TAKE 3 CAPSULES BY MOUTH EVERY MORNING 07/21/2016 11/17/2016 Active oxycodone 5 mg tablet RxNorm: 7676517 4 Tablet(s) PO daily 07/11/2016 09/23/2016 Active Movantik 25 mg tablet RxNorm: 3503950 1 Tablet(s) PO daily 07/01/2016 No Stop Date Active potassium chloride ER 20 mEq tablet,extended release RxNorm: 044971 1 TABLET(S) PO DAILY 06/14/2016 03/10/2017 Active Flagyl 500 mg tablet RxNorm: 576374 1 Tablet(s) PO TID 06/03/2016 06/12/2016 Inactive Flagyl 500 mg tablet RxNorm: 457994 1 Tablet(s) PO TID 06/03/2016 06/02/2016 Inactive oxycodone 5 mg tablet RxNorm: 9064919 4 Tablet(s) PO daily 04/27/2016 07/10/2016 Inactive Tamiflu 75 mg capsule RxNorm: 862850 1 Capsule(s) PO daily 04/19/2016 04/28/2016 Inactive Tamiflu 75 mg capsule RxNorm: 525674 1 Capsule(s) PO daily 04/19/2016 04/18/2016 Inactive Effexor XR 75 mg capsule,extended release RxNorm: 444715 TAKE 3 CAPSULES BY MOUTH EVERY MORNING 02/18/2016 04/17/2016 Inactive diclofenac sodium 75 mg tablet,delayed release RxNorm: 779884 1 TABLET(S) PO BID 02/18/2016 11/13/2016 Active Effexor XR 75 mg capsule,extended release RxNorm: 962417 Capsule(s) TAKE 3 CAPSULES BY MOUTH EVERY MORNING 02/17/2016 08/14/2016 Active oxycodone 5 mg tablet RxNorm: 7828382 4 Tablet(s) PO daily 02/04/2016 04/26/2016 Inactive gabapentin 600 mg tablet RxNorm: 129479 Tablet(s) TAKE 1 TABLET BY MOUTH TWICE DAILY 02/01/2016 10/27/2016 Active clopidogrel 75 mg tablet RxNorm: 229090 1 TABLET(S) PO QAM 02/01/2016 01/25/2017 Active Effexor XR 75 mg capsule,extended release RxNorm: 746667 TAKE 3 CAPSULES BY MOUTH EVERY MORNING 01/11/2016 02/09/2016 Inactive pantoprazole 40 mg tablet,delayed release RxNorm: 372305 TAKE 1 TABLET BY MOUTH DAILY 12/22/2015 12/15/2016 Active Effexor XR 75 mg capsule,extended release RxNorm: 497531 TAKE 3 CAPSULES BY MOUTH EVERY MORNING 11/16/2015 01/14/2016 Inactive lisinopril 40 mg tablet RxNorm: 986402 TAKE 1 TABLET BY MOUTH DAILY 11/05/2015 07/31/2016 Active Effexor XR 75 mg capsule,extended release RxNorm: 837230 TAKE 3 CAPSULES BY MOUTH EVERY MORNING 09/22/2015 11/20/2015 Inactive Augmentin 500 mg-125 mg tablet RxNorm: 706184 1 Tablet(s) PO TID 09/18/2015 09/24/2015 Inactive Anoro Ellipta 62.5 mcg-25 mcg/actuation powder for inhalation RxNorm: 2210503 1 INH DAILY 08/20/2015 No Stop Date Active Anoro Ellipta 62.5 mcg-25 mcg/actuation powder for inhalation RxNorm: 2305525 1 INH daily 08/20/2015 02/15/2016 Inactive lisinopril 40 mg tablet RxNorm: 400830 TAKE 1 TABLET BY MOUTH DAILY 08/10/2015 11/04/2015 Inactive gabapentin 600 mg tablet RxNorm: 084508 TAKE 1 TABLET BY MOUTH TWICE DAILY 08/10/2015 01/31/2016 Inactive terazosin 2 mg capsule RxNorm: 614094 TAKE ONE CAPSULE BY MOUTH EVERY DAY 07/27/2015 08/29/2016 Active hyoscyamine 0.125 mg sublingual tablet RxNorm: 7666466 1 Tablet(s) SL TID as needed 07/24/2015 08/02/2015 Inactive metronidazole 500 mg tablet RxNorm: 857946 1 Tablet(s) PO TID 07/24/2015 07/30/2015 Inactive Effexor XR 75 mg capsule,extended release RxNorm: 923098 TAKE 3 CAPSULES BY MOUTH EVERY MORNING 07/23/2015 09/20/2015 Inactive oxycodone 5 mg tablet RxNorm: 0972701 4 Tablet(s) PO daily 06/26/2015 02/03/2016 Inactive potassium chloride ER 20 mEq tablet,extended release RxNorm: 226028 1 Tablet(s) PO daily 06/25/2015 06/13/2016 Inactive oxycodone 5 mg tablet RxNorm: 8423436 4 Tablet(s) PO daily 04/17/2015 06/25/2015 Inactive rx written Anoro Ellipta 62.5 mcg-25 mcg/actuation powder for inhalation RxNorm: 3059240 1 INH daily 04/17/2015 08/19/2015 Inactive potassium chloride ER 20 mEq tablet,extended release RxNorm: 095959 1 Tablet(s) PO daily 03/23/2015 06/24/2015 Inactive triamcinolone acetonide 0.1 % topical cream RxNorm: 9095155 1 Application TOP BID 03/20/2015 No Stop Date Active carvedilol 12.5 mg tablet RxNorm: 087377 1 TABLET(S) PO BID 02/23/2015 08/21/2015 Inactive diclofenac sodium 75 mg tablet,delayed release RxNorm: 517024 1 Tablet(s) PO BID 02/18/2015 02/12/2016 Inactive carvedilol 12.5 mg tablet RxNorm: 002865 1 Tablet(s) PO BID 02/17/2015 02/11/2016 Inactive furosemide 40 mg tablet RxNorm: 846301 1 Tablet(s) PO daily 02/17/2015 02/11/2016 Inactive lisinopril 40 mg tablet RxNorm: 160190 TAKE 1 TABLET BY MOUTH DAILY 02/16/2015 08/09/2015 Inactive ceftriaxone 1 gram solution for injection RxNorm: 4569127 1 Gram(s) Inj daily mix with lidocaine 01/14/2015 01/17/2015 Inactive please supply 4 bottles of 1gram rocephin IM with 1 bottle of lidocaine 1% for home health to administer to pt starting 01/15 ceftriaxone 1 gram solution for injection RxNorm: 6804552 1 Gram(s) Inj daily 01/14/2015 01/13/2015 Inactive please supply 4 bottles of 1gram rocephin IM with 1 bottle of lidocaine 1% for home health to administer to pt starting 01/15 Augmentin 500 mg-125 mg tablet RxNorm: 191825 1 Tablet(s) PO BID 01/13/2015 01/22/2015 Inactive Keflex 500 mg capsule RxNorm: 174840 1 Capsule(s) PO TID 12/12/2014 12/11/2014 Inactive Keflex 500 mg capsule RxNorm: 200150 1 Capsule(s) PO TID 12/12/2014 12/18/2014 Inactive Augmentin 500 mg-125 mg tablet RxNorm: 126026 1 Tablet(s) PO BID 11/28/2014 12/02/2014 Inactive Augmentin 500 mg-125 mg tablet RxNorm: 125617 1 Tablet(s) PO BID 11/28/2014 11/27/2014 Inactive Cipro 500 mg tablet RxNorm: 603406 1 Tablet(s) PO BID 11/24/2014 11/27/2014 Inactive gabapentin 600 mg tablet RxNorm: 549602 1 Tablet(s) PO BID 11/17/2014 08/13/2015 Inactive gabapentin 600 mg tablet RxNorm: 857539 1 Tablet(s) PO BID 11/17/2014 11/16/2014 Inactive oxycodone 5 mg tablet RxNorm: 5096781 4 Tablet(s) PO daily 11/07/2014 02/04/2015 Inactive rx written Effexor XR 75 mg capsule,extended release RxNorm: 095492 3 Capsule(s) 225 PO QAM 11/05/2014 03/04/2015 Inactive clopidogrel 75 mg tablet RxNorm: 410214 1 Tablet(s) PO QAM 11/05/2014 01/28/2016 Inactive Effexor XR 75 mg capsule,extended release RxNorm: 910602 3 Capsule(s) 225 PO QAM 11/03/2014 11/04/2014 Inactive carvedilol 12.5 mg tablet RxNorm: 657147 1 Tablet(s) PO BID 10/28/2014 02/16/2015 Inactive Effexor XR 75 mg capsule,extended release RxNorm: 843597 3 Capsule(s) 225 PO QAM 10/28/2014 11/02/2014 Inactive Effexor XR 75 mg capsule,extended release RxNorm: 934613 3 Capsule(s) 225 PO QAM 10/28/2014 10/27/2014 Inactive carvedilol 12.5 mg tablet RxNorm: 076320 1 Tablet(s) PO BID 10/28/2014 10/27/2014 Inactive ceftriaxone 1 gram solution for injection RxNorm: 6971505 Inj 09/05/2014 09/05/2014 Inactive Cipro 500 mg tablet RxNorm: 623571 1 Tablet(s) PO BID 09/04/2014 09/03/2014 Inactive Cipro 500 mg tablet RxNorm: 279996 1 Tablet(s) PO BID 09/04/2014 09/10/2014 Inactive oxycodone 5 mg tablet RxNorm: 7991691 4 Tablet(s) PO daily 08/20/2014 11/06/2014 Inactive rx written lisinopril 40 mg tablet RxNorm: 220384 TAKE 1 TABLET BY MOUTH DAILY 08/18/2014 02/13/2015 Inactive nystatin 100,000 unit/mL oral suspension RxNorm: 392498 5 Milliliter(s) PO QID 07/04/2014 07/13/2014 Inactive [SAVINGS FOR NON-COVERED DRUGS -- BIN:[id number], PCN: [id number], Group: [id number], ID# [id number], Questions: . THIS IS NOT INSURANCE.] WelChol 3.75 gram oral powder packet RxNorm: 301314 1 PO BID No Start Date Active amlodipine 10 mg tablet RxNorm: 831376 1 Tablet(s) PO QAM No Start Date Active One A Day oral RxNorm: 59447 oral No Start Date Active Vitamin D2 400 unit capsule RxNorm: 326073 1 Capsule(s) PO daily No Start Date Active aspirin 81 mg tablet,delayed release RxNorm: 291434 1 Tablet(s) PO daily No Start Date Active melatonin 5 mg disintegrating tablet RxNorm: 4507293 1 Tablet(s) PO QHS No Start Date Active clonidine HCl 0.1 mg tablet RxNorm: 456164 1 Tablet(s) PO QHS No Start Date Active hydrochlorothiazide oral RxNorm: 5487 oral No Start Date Active Lasix oral RxNorm: 786010 oral No Start Date 02/17/2015 Inactive potassium chloride 20 meq RxNorm: 356460 PO daily No Start Date 03/22/2015 Inactive oxycodone 5 mg tablet RxNorm: 0846172 3-4 Tablet(s) PO QHS No Start Date 08/19/2014 Inactive terazosin 2 mg capsule RxNorm: 835435 1 Capsule(s) PO daily No Start Date 07/26/2015 Inactive Effexor XR 75 mg capsule,extended release RxNorm: 695240 3 Capsule(s) 225 PO QAM No Start Date 10/27/2014 Inactive gabapentin 600 mg tablet RxNorm: 267042 1 Tablet(s) PO BID No Start Date 11/16/2014 Inactive pantoprazole 40 mg tablet,delayed release RxNorm: 072588 oral No Start Date 12/21/2015 Inactive Anoro Ellipta 62.5 mcg-25 mcg/actuation powder for inhalation RxNorm: 8647280 1 INH daily No Start Date 04/16/2015 Inactive diclofenac sodium 75 mg tablet,delayed release RxNorm: 708104 1 Tablet(s) PO BID No Start Date 02/17/2015 Inactive clopidogrel 75 mg tablet RxNorm: 118609 1 Tablet(s) PO QAM No Start Date 11/04/2014 Inactive lisinopril 40 mg tablet RxNorm: 186135 1 Tablet(s) PO daily No Start Date 08/17/2014 Inactive carvedilol 12.5 mg tablet RxNorm: 632830 1 Tablet(s) PO BID No Start Date 10/27/2014 Inactive Medication Administered Medication Codes Instructions Start Date Status ceftriaxone 1 gram solution for injection RxNorm: 0836003 09/05/2014 No longer Active Immunizations Vaccine Codes Date Status Influenza CVX: 141 12/31/2014 completed Assessments Condition Codes Effective Dates Pain in right shoulder ICD-10: M25.511 ICD-9: 719.41 07/01/2016 Drug induced constipation ICD-10: K59.03 ICD-9: 564.09 07/01/2016 Cauda equina syndrome ICD-10: G83.4 ICD-9: 344.60 07/01/2016 Diarrhea, unspecified ICD-10: R19.7 ICD-9: 787.91 06/03/2016 Irritable bowel syndrome with diarrhea ICD-10: K58.0 ICD-9: 564.1 05/05/2016 Weakness ICD-10: R53.1 ICD-9: 780.79 02/23/2016 Shortness of breath ICD-10: R06.02 ICD-9: 786.05 [...] 12/05/2014 SHORTNESS OF BREATH ICD-9: 786.05 10/03/2014 ANEMIA ICD-9: 285.9 10/03/2014 ESSENTIAL HYPERTENSION ICD-9: 401.9 10/03/2014 COPD (chronic obstructive pulmonary disease) ICD-9: 496 10/03/2014 MALAISE AND FATIGUE ICD-9: 780.79 09/15/2014 Chronic back pain ICD-9: 724.5 09/05/2014 UTI ICD-9: 599.0 09/05/2014 History of prostate cancer ICD-9: V10.46 07/04/2014 THRUSH ICD-9: 112.0 07/04/2014 Cauda equina syndrome ICD-9: 344.60 07/04/2014 Hyperlipidemia ICD-9: 272.4 07/04/2014 Reason For Visit Reason For Visit Effective Dates Notes back pain 07/01/2016 pre-op/surgery consult 05/05/2016 shoulder pain 02/23/2016 shortness of breath 09/16/2015 diarrhea 07/24/2015 rash 03/20/2015 sinus congestion 01/13/2015 vaccination against influenza 12/31/2014 hypertension 12/05/2014 hypertension 10/03/2014 hypertension 09/15/2014 urinary frequency 09/05/2014 hypertension 07/04/2014 c/o oral burning ? thrush Results Observation Observation Code Item Item Code Result Date Clostridium Diff Tox A/B [id number] Cdiff Positive 06/03/2016 Total Psa PSA 1.53 [...] 27.4 % 03/20/2015 Cbc With Differential Ord2 [place]% 12.8 % 03/20/2015 Cbc With Differential Ord2 [...] 1.69 K/ul 03/20/2015 Cbc With Differential Ord2 [place] ABS# 0.8 K/ul 03/20/2015 Cbc With Differential Ord2 Eos ABS# 0.6 K/ul 03/20/2015 Cbc With Differential Ord2 Baso ABS# 0.0 K/ul 03/20/2015 Cbc With Differential Ord2 New Analyzer Notice Please note new ref ranges starting 03-04-2015 due to implemntation of new five part differential hematolgy analyzer. 03/20/2015 Comp Metabolic Uda560 NA 138 mEq/L 02/26/2015 Comp Metabolic Zhv511 K 4.0 mEq/L 02/26/2015 Comp Metabolic Xzc643 CL 103 mEq/L 02/26/2015 Comp Metabolic Jlg213 CO2 28.0 mEq/L 02/26/2015 Comp Metabolic Hop633 ANION GAP 11 02/26/2015 Comp Metabolic Zmk080 GLUCOSE 95 mg/dL 02/26/2015 Comp Metabolic Tmm237 Creat 1.0 mg/dL 02/26/2015 Comp Metabolic Qks194 eGFR 74 ml/min/1.73m2 02/26/2015 Comp Metabolic Pnq095 BUN 19 mg/dL 02/26/2015 Comp Metabolic Mqu253 B/C Ratio 18.3 Ratio 02/26/2015 Comp Metabolic Slu914 CALCIUM 9.1 mg/dL 02/26/2015 Comp Metabolic Znc046 ALK PHOS 87 U/L 02/26/2015 Comp Metabolic Ydc405 AST(SGOT) 22 U/L 02/26/2015 Comp Metabolic Asu383 ALT(SGPT) 24 U/L 02/26/2015 Comp Metabolic Xou437 BILI T 0.4 mg/dL 02/26/2015 Comp Metabolic Bvg310 ALBUMIN 4.0 g/dL 02/26/2015 Comp Metabolic Abv667 TPRO 7.4 g/dL 02/26/2015 Comp Metabolic Prw215 GLOB 3.4 g/dL 02/26/2015 Comp Metabolic Haa972 A/G Ratio 1.2 Ratio 02/26/2015 Comp Metabolic Kle722 Osmo 278 mOsmo 02/26/2015 Total Psa Ord10 PSA 2.25 ng/mL 02/26/2015 Culture Urine [id number] URINE CULTURE SEE NOTES 12/15/2014 Culture Urine [id number] Continued Results 12/15/2014 Urine Culture Ucult Complete >100,000 col/ml aerobic growth sent to ref lab 12/12/2014 Comp Metabolic Uju883 NA 136 mEq/L 12/05/2014 Comp Metabolic Ayy441 K 4.3 mEq/L 12/05/2014 Comp Metabolic Dds199 CL 104 mEq/L 12/05/2014 Comp Metabolic Oow635 CO2 29.0 mEq/L 12/05/2014 Comp Metabolic Hyz249 ANION GAP 7 12/05/2014 Comp Metabolic Ncb778 GLUCOSE 80 mg/dL 12/05/2014 Comp Metabolic Von206 Creat 1.1 mg/dL 12/05/2014 Comp Metabolic Aig977 eGFR 68 ml/min/1.73m2 12/05/2014 Comp Metabolic Hhr727 BUN 21 mg/dL 12/05/2014 Comp Metabolic Djq569 B/C Ratio 18.8 Ratio 12/05/2014 Comp Metabolic Eay094 CALCIUM 9.3 mg/dL 12/05/2014 Comp Metabolic Ebd442 ALK PHOS 81 U/L 12/05/2014 Comp Metabolic Lno743 AST(SGOT) 17 U/L 12/05/2014 Comp Metabolic Ymv152 ALT(SGPT) 16 U/L 12/05/2014 Comp Metabolic Xjt027 BILI T 0.3 mg/dL 12/05/2014 Comp Metabolic Kjo186 ALBUMIN 4.0 g/dL 12/05/2014 Comp Metabolic Vel971 TPRO 6.9 g/dL 12/05/2014 Comp Metabolic Rob861 GLOB 2.9 g/dL 12/05/2014 Comp Metabolic Kkr916 A/G Ratio 1.4 Ratio 12/05/2014 Comp Metabolic Jdh056 Osmo 274 mOsmo 12/05/2014 Cbc With Differential [...] Ord2 RDW 15.0 % 12/05/2014 Culture Urine [id number] URINE CULTURE SEE NOTES 11/27/2014 Culture Urine [id number] Continued Results 11/27/2014 Urine Culture Ucult Complete Growth of aerobe sent to ref lab 11/25/2014 B Type Natriuretic Peptide Ykx5788 B-SALESPERSON HOSIERY 121.00 pg/ml 10/08/2014 Cbc With Differential Ord2 [...] Folate Ord36 Folate 22.12 ng/mL 10/08/2014 B12 Qev720 B12 >1500.00 pg/ml 10/08/2014 Comp Metabolic Ofm124 NA 135 mEq/L 10/08/2014 Comp Metabolic Dsk948 K 4.5 mEq/L 10/08/2014 Comp Metabolic Wcy151 CL 104 mEq/L 10/08/2014 Comp Metabolic Btm845 CO2 25.0 mEq/L 10/08/2014 Comp Metabolic Zyr806 ANION GAP 11 10/08/2014 Comp Metabolic Fpy053 GLUCOSE 73 mg/dL 10/08/2014 Comp Metabolic Pyg368 Creat 1.1 mg/dL 10/08/2014 Comp Metabolic Qnw603 eGFR 71 ml/min/1.73m2 10/08/2014 Comp Metabolic Hrl092 BUN 21 mg/dL 10/08/2014 Comp Metabolic Oiq256 B/C Ratio 19.4 Ratio 10/08/2014 Comp Metabolic Yeh907 CALCIUM 9.0 mg/dL 10/08/2014 Comp Metabolic Ogw951 ALK PHOS 73 U/L 10/08/2014 Comp Metabolic Pmz555 AST(SGOT) 15 U/L 10/08/2014 Comp Metabolic Jbc076 ALT(SGPT) 14 U/L 10/08/2014 Comp Metabolic Yyu936 BILI T 0.4 mg/dL 10/08/2014 Comp Metabolic Tri091 ALBUMIN 4.2 g/dL 10/08/2014 Comp Metabolic Yvv687 TPRO 7.1 g/dL 10/08/2014 Comp Metabolic Eim715 GLOB 2.9 g/dL 10/08/2014 Comp Metabolic Xtq990 A/G Ratio 1.4 Ratio 10/08/2014 Comp Metabolic Wfy771 Osmo 272 mOsmo 10/08/2014 B12 Dpa256 B12 554.00 pg/ml 09/16/2014 Tibc Ord40 Iron 108 ug/dl 09/16/2014 Tibc Ord40 UIBC 281 ug/dL 09/16/2014 Tibc Ord40 TIBC 389 ug/dL 09/16/2014 Tibc Ord40 Fe-%Sat 27.8 % 09/16/2014 Folate Ord36 Folate >23.20 ng/mL 09/16/2014 Comp Metabolic Aaa266 NA 134 mEq/L 09/16/2014 Comp Metabolic Aji004 K 4.6 mEq/L 09/16/2014 Comp Metabolic Ckr978 CL 103 mEq/L 09/16/2014 Comp Metabolic Ujc153 CO2 25.0 mEq/L 09/16/2014 Comp Metabolic Dzd332 ANION GAP 11 09/16/2014 Comp Metabolic Oxa592 GLUCOSE 93 mg/dL 09/16/2014 Comp Metabolic Yho321 Creat 1.2 mg/dL 09/16/2014 Comp Metabolic Lme747 eGFR 65 ml/min/1.73m2 09/16/2014 Comp Metabolic Cxi395 BUN 23 mg/dL 09/16/2014 Comp Metabolic Vlv707 B/C Ratio 19.8 Ratio 09/16/2014 Comp Metabolic Zyr929 CALCIUM 9.1 mg/dL 09/16/2014 Comp Metabolic Ehk066 ALK PHOS 73 U/L 09/16/2014 Comp Metabolic Bfp159 AST(SGOT) 18 U/L 09/16/2014 Comp Metabolic Rbg561 ALT(SGPT) 16 U/L 09/16/2014 Comp Metabolic Yrt916 BILI T 0.4 mg/dL 09/16/2014 Comp Metabolic Mwd871 ALBUMIN 4.0 g/dL 09/16/2014 Comp Metabolic Oxc746 TPRO 7.1 g/dL 09/16/2014 Comp Metabolic Axc831 GLOB 3.1 g/dL 09/16/2014 Comp Metabolic Nkp990 A/G Ratio 1.3 Ratio 09/16/2014 Comp Metabolic Nsp725 Osmo 272 mOsmo 09/16/2014 Cbc With Differential [...] Ord22 FERRITIN 36.2 ng/mL 09/16/2014 Culture Urine [id number] URINE CULTURE SEE NOTES 09/08/2014 Urine Culture [...] Ord2 RDW 17.8 % 09/05/2014 Comp Metabolic Rzf108 NA 133 mEq/L 09/05/2014 Comp Metabolic Zwe255 K 4.9 mEq/L 09/05/2014 Comp Metabolic Xft680 CL 99 mEq/L 09/05/2014 Comp Metabolic Ial786 CO2 26.0 mEq/L 09/05/2014 Comp Metabolic Dyx902 ANION GAP 13 09/05/2014 Comp Metabolic Swp835 GLUCOSE 83 mg/dL 09/05/2014 Comp Metabolic Cor919 Creat 1.5 mg/dL 09/05/2014 Comp Metabolic Gdt551 eGFR 47 ml/min/1.73m2 09/05/2014 Comp Metabolic Svn217 BUN 28 mg/dL 09/05/2014 Comp Metabolic Cax721 B/C Ratio 18.3 Ratio 09/05/2014 Comp Metabolic Yul932 CALCIUM 8.9 mg/dL 09/05/2014 Comp Metabolic Hsj374 ALK PHOS 71 U/L 09/05/2014 Comp Metabolic Txj680 AST(SGOT) 18 U/L 09/05/2014 Comp Metabolic Tma974 ALT(SGPT) 29 U/L 09/05/2014 Comp Metabolic Luk695 BILI T 0.6 mg/dL 09/05/2014 Comp Metabolic Gdx059 ALBUMIN 3.8 g/dL 09/05/2014 Comp Metabolic Wpr656 TPRO 6.7 g/dL 09/05/2014 Comp Metabolic Urq997 GLOB 2.9 g/dL 09/05/2014 Comp Metabolic Nry340 A/G Ratio 1.3 Ratio 09/05/2014 Comp Metabolic Zar498 Osmo 271 mOsmo 09/05/2014 Total Psa Ord10 [...] Codes Date URINALYSIS NONAUTO W/O SCOPE CPT-4: 63377Gqbhvxq 09/18/2015 ADMIN INFLUENZA VIRUS VAC CPT-4: F5578Pejalww 12/31/2014 FLU VACC PRSV FREE INC ANTIG Formatting Model/CDA Sections, Assigned to/[employer] CPT-4: 13141Ptqsvoj 12/31/2014 URINALYSIS NONAUTO W/O SCOPE CPT-4: 14045Svsolfd 12/10/2014 URINALYSIS NONAUTO W/O SCOPE CPT-4: 23957Hfujdlw 11/24/2014 ROCEPHIN, PER 250 MG CPT-4: P5535Hopoqpm 09/05/2014 THER/PROPH/DIAG INJ SC/IM CPT-4: 02840Hysblhc 09/05/2014 URINALYSIS NONAUTO W/O SCOPE CPT-4: 60290Fzwwjuk 09/04/2014 Vital Signs Date Vital 07/01/2016 Blood Pressure 1: 138/68 Code: 8480-6 BMI: 37.2 Code: 19791-1 Heart Rate 1: 69 bpm Height: 5'9" SpO2: 93% Weight: 252 lbs 05/05/2016 Blood Pressure 1: 136/78 Code: 8480-6 BMI: 39.3 Code: 03258-0 Heart Rate 1: 72 bpm Height: 5'9" SpO2: 97% Weight: 266 lbs 02/23/2016 Blood Pressure 1: 145/70 Code: 8480-6 BMI: 37.5 Code: 31317-6 Heart Rate 1: 80 bpm Height: 5'9" Weight: 254 lbs 09/16/2015 Blood Pressure 1: 140/62 Code: 8480-6 Heart Rate 1: 77 bpm Height: 5'9" SpO2: 93% Weight: 07/24/2015 Blood Pressure 1: 152/68 Code: 8480-6 BMI: 37.7 Code: 56908-4 Heart Rate 1: 73 bpm Height: 5'9" SpO2: 97% Weight: 255 lbs 03/20/2015 Blood Pressure 1: 146/74 Code: 8480-6 BMI: 38.1 Code: 62117-2 Heart Rate 1: 63 bpm Height: 5'9" Weight: 258 lbs 01/13/2015 Blood Pressure 1: 120/58 Code: 8480-6 Heart Rate 1: 52 bpm Height: 5'9" SpO2: 97% Temperature: 37.1 (C) / 98.7 (F) Weight: 12/05/2014 Blood Pressure 1: 134/54 Code: 8480-6 BMI: 36.3 Code: 20368-3 Heart Rate 1: 76 bpm Height: 5'9" SpO2: 93% Weight: 246 lbs 10/03/2014 Blood Pressure 1: 132/60 Code: 8480-6 Heart Rate 1: 76 bpm Height: SpO2: 95% Weight: 254 lbs 09/15/2014 Blood Pressure 1: 120/68 Code: 8480-6 BMI: 37.5 Code: 86031-2 Heart Rate 1: 76 bpm Height: 5'9" SpO2: 93% Weight: 254 lbs 09/05/2014 Blood Pressure 1: 110/50 Code: 8480-6 BMI: 37.4 Code: 54210-1 Heart Rate 1: 79 bpm Height: 5'9" SpO2: 96% Temperature: 36.3 (C) / 97.4 (F) Weight: 253 lbs 07/04/2014 Blood Pressure 1: 138/72 Code: 8480-6 BMI: 37.1 Code: 72308-2 Heart Rate 1: 72 bpm Height: 5'9" [...] discomfort 12/05/2014 occasional ache in chest- seeing parking enforcement technician in [place]- doing heart cath in [...] discomfort 10/03/2014 occasional ache in chest- seeing parking enforcement technician in [place]- doing heart cath in [...] Directive data Encounters Encounter Performer Location Codes ([id number]) [id number] EST. PATIENT, LEVEL IV Diagnosis: Cauda equina syndrome[ICD10: G83.4] Diagnosis: Pain in right shoulder[ICD10: M25.511] Diagnosis: Drug induced constipation[ICD10: K59.03] Kavya Aburto MD, [facility] CPT-4: 65643 07/01/2016 52823 EST. PATIENT, LEVEL III Diagnosis: Cauda equina syndrome[ICD10: G83.4] Diagnosis: Irritable bowel syndrome with diarrhea[ICD10: K58.0] Mary Aburto MD, [facility] CPT-4: 33452 05/05/2016 [id number] EST. PATIENT, LEVEL III Diagnosis: Pain in right shoulder[ICD10: M25.511] Diagnosis: Weakness[ICD10: R53.1] Diagnosis: Shortness of breath[ICD10: R06.02] Mary Aburto MD, [facility] CPT-4: 25895 02/23/2016 [id number] EST. PATIENT, LEVEL III Diagnosis: Essential (primary) hypertension[ICD10: I10] Diagnosis: Other insomnia[ICD10: G47.09] Diagnosis: Irritable bowel syndrome with diarrhea[ICD10: K58.0] Diagnosis: Shortness of breath[ICD10: R06.02] Diagnosis: Weakness[ICD10: R53.1] Mary Aburto MD, [facility] CPT-4: 21219 09/16/2015 [id number] EST. PATIENT, LEVEL III Diagnosis: Diarrhea, unspecified[ICD10: R19.7] Diagnosis: Nausea[ICD10: R11.0] Mary Aburto MD, [facility] CPT-4: 59930 07/24/2015 [id number] EST. PATIENT, LEVEL IV Diagnosis: Other iron deficiency anemias[ICD10: D50.8] Diagnosis: Rash and other nonspecific skin eruption[ICD10: R21] Diagnosis: Cauda equina syndrome[ICD10: G83.4] Diagnosis: Essential (primary) hypertension[ICD10: I10] Diagnosis: Other pruritus[ICD10: L29.8] Diagnosis: Shortness of breath[ICD10: R06.02] Mary Aburto MD, [facility] CPT-4: 47725 03/20/2015 30091 EST. PATIENT, LEVEL IV Diagnosis: Urinary tract infection, site not specified[ICD10: N39.0] Diagnosis: Umbilical hernia without obstruction or gangrene[ICD10: K42.9] Diagnosis: Cauda equina syndrome[ICD10: G83.4] Mary Aburto MD, [facility] CPT- 4: 20203 01/13/2015 ([id number]) [id number] EST. PATIENT, LEVEL IV Diagnosis: Iron deficiency anemia, unspecified[ICD10: D50.9] Diagnosis: Essential (primary) hypertension[ICD10: I10] Diagnosis: Hematuria, unspecified[ICD10: R31.9] [facility] CPT-4: 92422 12/05/2014 ([id number]) 27328 EST. PATIENT, LEVEL IV Diagnosis: ESSENTIAL HYPERTENSION[ICD9: 401.9] Diagnosis: COPD (chronic obstructive pulmonary disease)[ICD9: 496] Diagnosis: ANEMIA[ICD9: 285.9] Diagnosis: SHORTNESS OF BREATH[ICD9: 786.05] Kavya Aburto MD, [facility] CPT- 4: 88371 10/03/2014 ([id number]) [id number] EST. PATIENT, LEVEL IV Diagnosis: ESSENTIAL HYPERTENSION[ICD9: 401.9] Diagnosis: ANEMIA[ICD9: 285.9] Diagnosis: MALAISE AND FATIGUE[ICD9: 780.79] Darleen Aburto MD, [facility] CPT- 4: 47376 09/15/2014 ([id number]) [id number] EST. PATIENT, LEVEL III Diagnosis: UTI[ICD9: 599.0] Diagnosis: Chronic back pain[ICD9: 724.5] [facility] CPT-4: 99945 09/05/2014 ([id number]) OFFICE VISIT, NEW - LEVEL 4 Diagnosis: ESSENTIAL HYPERTENSION[ICD9: 401.9] Diagnosis: THRUSH[ICD9: 112.0] Diagnosis: Hyperlipidemia[ICD9: 272.4] Diagnosis: COPD (chronic obstructive pulmonary disease)[ICD9: 496] Diagnosis: Cauda equina syndrome[ICD9: 344.60] Diagnosis: History of prostate cancer[ICD9: V10.46] [facility]avya Aburto [facility] CPT-4: 12925 07/04/2014 Plan of Care Planned Activity Notes Codes Status Date Visit Plan: Cauda equina-chronic back pain-generalized weakness-right shoulder pain/weakness- patient to contact juan blacnas for mobility paperwork-will ask PT to do a mobility exam through [facility] Drug induced constipation-rx for movantik. 07/01/2016 Appointment: Kavya Subramanian WPtel: [phone] [id number] [place] (30 min) Complex 07/01/2016 Patient Education: Patient Medication Summary Completed 07/01/2016 Patient Education: Obesity Completed 07/01/2016 Patient Education: Patient Medication Summary Completed 06/03/2016 Visit Plan: Cauda Equina Syndrome/diarrhea - Pt is to have abdominal surgery next week - Dr. Abutro in to assess pt - Pt cleared for surgery - pt is to notify clinic with any questions or concerns. Pt is to follow up after his surgery. 05/05/2016 App[facility]ment: [id number] [facility] 05/05/2016 Patient Education: Patient [...] Juan godoy. 02/23/2016 Appointment: Mary Alan WPtel[id number] [place] (30 min) Complex 02/23/2016 Patient Education: Patient Medication Summary Completed 02/23/2016 Appointment: [facility]el[phone] [id number] [place] (30 min) Complex 02/19/2016 Appointment: [facility]el[id number] [place] (15 min) Moderate 10/14/2015 [...] Keep appointment with GastroenterologistMake an appointment with parking enforcement technician - to follow up on shortness of breath. Weakness - pt is to contact Juan Godoy in [facility] and Call clinic when he is [...] not improved. 07/24/2015 Appointment: Kavya Subramanian WPtel[phone] (30 min) Complex 07/24/2015 Patient Education: [...] and hypertension. 09/15/2014 Appointment: Darleen Aburto WPtel[facility] (15 min) Moderate 09/15/2014 Patient [...] equina-increased incontinence of bowels-recommend follow up with regulatory specialist-will discuss repeat MRI with Dr Aburto-keep [...] pain. Will check UA, CBC, CMP. . Iron deficiency anemia-check labs-continue oral iron [...] Peng 4. Make an appointment with your parking enforcement technician - to follow up on shortness of breath. 5. Call us when you here about the mobility paperwork and we will fill out the paperwork. Juan Godoy in [facility] . Hypertension - The patient has [...] having loose bowel movements. Keep appointment with Dermatology Nurse Practitioner Make an appointment with parking enforcement technician - to follow up on shortness of breath. Weakness - pt is to contact Juan Blancas [facility] in [facility] and Call clinic when he is [...] chair - will have pt contact Juan Susi mobility. . Pt complains of abdominal pain, states [...] pain. Will check UA, CBC, CMP. . Urinary Tract Infection-discussed natural and expected [...] incontinence of bowels- recommend follow up with regulatory specialist-will discuss repeat MRI with Dr Aburto-keep follow up appointment with Dr Aburto in 10 days Nikolai Montalvo to do PT evaluation for motorized wheelchair through [facility] Blancas . Cauda equina-chronic back pain-generalized weakness-right shoulder pain/weakness- patient to contact juan blancas for mobility paperwork-will ask PT to do a mobility exam through [employer] replaced [facility] Drug induced constipation-rx for movantik. CHECK STOOL STUDIES FOR BLOOD . Hypertension [...] - due to anemia and hypertension. . Cauda Equina Syndrome/diarrhea - Pt is to have abdominal surgery next week - Dr. Aburto in to assess pt - Pt cleared for surgery - pt is to notify clinic with any questions or concerns. Pt is to follow up after his surgery. . Gastroenteritis - Pt is to get [...]
--- OUTSIDE RECORDS SUMMARY | 2018-07-19 09:10 | XMS REPORT | CCD ---
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 Name Role Phone PP Unavailable CCM Unavailable Summary Purpose Interface Exchange Insurance Providers Payer name Policy type / Coverage type Covered democrat ID Effective Begin Date Effective End Date WPS Medicare Part B Commercial Insurance [id number] Unknown Unknown [employer]ALTH[employer]ICE Commercial Insurance [id number] Unknown Unknown Family history Father Diagnosis Age At Onset Coronary Artery Disease Unknown Mother Diagnosis Age At Onset Arthritis Unknown Sister Diagnosis Age At Onset Alzheimer's Disease Unknown Social History Social History Element Codes Description Effective Dates Marital status Unknown 07/04/2014 Number of children Unknown 2 07/04/2014 Living arrangements Unknown House 07/04/[address]: 1451362 Quit over 10 years ago 07/04/2014 Alcohol history Unknown occasionally drinks alcohol 07/04/2014 Frequency of drinks SNOMED CT: 373176966 Drinks rarely 07/04/2014 Allergies, Adverse Reactions, Alerts Substance Reaction Codes Entered Date Inactivated Date Status * NO KNOWN FOOD ALLERGIES Unknown 07/04/2014 No Inactive Date Active Iodine rash, pruritis, RxNorm: 5933 03/04/2015 No Inactive Date Active tramadol pruritis RxNorm: 20373 07/04/2014 No Inactive Date Active Past Medical [...] Start Date Stop Date Status Fill Instructions doxycycline hyclate 100 mg tablet RxNorm: 0813988 1 Tablet(s) PO BID 06/01/2018 06/10/2018 Active doxycycline hyclate 100 mg tablet RxNorm: 9520347 1 Tablet(s) PO BID 06/01/2018 05/31/2018 Inactive Zithromax Z-Win 250 mg tablet RxNorm: 605222 Tablet(s) PO UD 05/22/2018 No Stop Date Active albuterol sulfate 2.5 mg/3 mL (0.083 %) solution for nebulization RxNorm: 153020 3 Milliliter(s) INH UD 05/22/2018 No Stop Date Active cefdinir 300 mg capsule RxNorm: 493648 1 Capsule(s) PO BID 05/22/2018 05/31/2018 Inactive ceftriaxone 500 mg solution for injection RxNorm: 7160092 2 Milliliter(s) Inj 05/22/2018 05/22/2018 Inactive diclofenac sodium 75 mg tablet,delayed release RxNorm: 259412 1 TABLET(S) PO BID 05/14/2018 02/07/2019 Active gabapentin 600 mg tablet RxNorm: 777946 TABLET(S) TAKE 1 TABLET BY MOUTH TWICE DAILY 04/23/2018 04/17/2019 Active prednisone 20 mg tablet RxNorm: 423132 2 Tablet(s) PO daily 04/20/2018 04/24/2018 Inactive Kenalog 40 mg/mL suspension for injection RxNorm: 7109229 Milliliter(s) Inj 04/20/2018 04/20/2018 Inactive Augmentin 500 mg-125 mg tablet RxNorm: 246338 1 Tablet(s) PO TID 04/20/2018 04/26/2018 Inactive oxycodone 5 mg tablet RxNorm: 8054131 4 Tablet(s) PO daily 04/12/2018 06/25/2018 Active potassium chloride ER 20 mEq tablet,extended release RxNorm: 926653 1 TABLET(S) PO DAILY 03/09/2018 03/03/2019 Active oxycodone 5 mg tablet RxNorm: 9054425 4 Tablet(s) PO daily 01/18/2018 04/02/2018 Inactive Augmentin 500 mg-125 mg tablet RxNorm: 434121 1 Tablet(s) PO TID 12/14/2017 12/23/2017 Inactive take probiotic bid x 10 days pantoprazole 40 mg tablet,delayed release RxNorm: 999472 TAKE 1 TABLET BY MOUTH DAILY 12/11/2017 12/05/2018 Active Augmentin 500 mg-125 mg tablet RxNorm: 844890 1 Tablet(s) PO TID 11/17/2017 11/22/2017 Inactive take probiotic bid x 7 days lisinopril 40 mg tablet RxNorm: 834057 TAKE 1 TABLET BY MOUTH DAILY 11/06/2017 08/02/2018 Active oxycodone 5 mg tablet RxNorm: 4723293 4 Tablet(s) PO daily 10/16/2017 12/29/2017 Inactive Cymbalta 30 mg capsule,delayed release RxNorm: 597587 2 Capsule(s) PO daily 08/17/2017 02/12/2018 Inactive Zoloft 25 mg tablet RxNorm: 034082 1 TABLET(S) PO DAILY X 5 DAYS THEN INCREASE TO 50MG DAILY 08/16/2017 No Stop Date Active Cymbalta 30 mg capsule,delayed release RxNorm: 921697 1 Capsule(s) PO 1 CAPSULE(S) PO DAILY X 1 WEEK, THEN INCREASE TO 2 DAILY 08/15/2017 08/16/2017 Inactive Patient requests 90 days supply diclofenac sodium 75 mg tablet,delayed release RxNorm: 502184 1 TABLET(S) PO BID 08/14/2017 05/10/2018 Inactive oxycodone 5 mg tablet RxNorm: 8641308 4 Tablet(s) PO daily 08/01/2017 10/14/2017 Inactive valacyclovir 1 gram tablet RxNorm: 617629 1 Tablet(s) PO TID 07/12/2017 07/11/2017 Inactive Zoloft 50 mg tablet RxNorm: 396850 1 Tablet(s) PO daily 07/12/2017 08/01/2017 Inactive valacyclovir 1 gram tablet RxNorm: 910642 1 Tablet(s) PO TID 07/12/2017 07/18/2017 Inactive Zoloft 50 mg tablet RxNorm: 110310 1 Tablet(s) PO daily 07/12/2017 07/11/2017 Inactive Zoloft 25 mg tablet RxNorm: 671760 1 Tablet(s) PO daily x 5 days then increase to 50mg daily 07/11/2017 07/11/2017 Inactive Cymbalta 30 mg capsule,delayed release RxNorm: 912615 1 Capsule(s) PO daily x 1 week, then increase to 2 daily 06/30/2017 06/29/2017 Inactive Cymbalta 30 mg capsule,delayed release RxNorm: 891662 1 CAPSULE(S) PO DAILY X 1 WEEK, THEN INCREASE TO 2 DAILY 06/30/2017 07/04/2017 Inactive Patient requests 90 days supply Augmentin 875 mg-125 mg tablet RxNorm: 764444 1 Tablet(s) PO BID 05/22/2017 05/28/2017 Inactive Probiotic QID while on antibiotics Bactrim DS 800 mg-160 mg tablet RxNorm: 217901 1 Tablet(s) PO BID 05/22/2017 05/21/2017 Inactive Probiotic QID while on antibiotics Bactrim DS 800 mg-160 mg tablet RxNorm: 573223 1 Tablet(s) PO BID 05/22/2017 05/28/2017 Inactive Probiotic QID while on antibiotics Augmentin 875 mg-125 mg tablet RxNorm: 190919 1 Tablet(s) PO BID 05/22/2017 05/21/2017 Inactive Probiotic QID while on antibiotics Cipro 500 mg tablet RxNorm: 935568 1 Tablet(s) PO BID 04/21/2017 04/30/2017 Inactive Take probiotic while on ABT Cipro 500 mg tablet RxNorm: 506428 1 Tablet(s) PO BID 04/21/2017 04/20/2017 Inactive Diflucan 150 mg tablet RxNorm: 306277 1 Tablet(s) PO daily 04/19/2017 11/13/2017 Inactive Diflucan 150 mg tablet RxNorm: 298436 1 Tablet(s) PO daily 04/19/2017 04/18/2017 Inactive oxycodone 5 mg tablet RxNorm: 9083555 4 Tablet(s) PO daily 04/17/2017 06/30/2017 Inactive gabapentin 600 mg tablet RxNorm: 182194 TABLET(S) TAKE 1 TABLET BY MOUTH TWICE DAILY 04/14/2017 04/08/2018 Inactive Rocephin 1 gram solution for injection RxNorm: 380338 1 Inj daily 04/05/2017 04/11/2017 Inactive Rocephin 1 gram solution for injection RxNorm: 506349 1 Inj daily 04/04/2017 04/04/2017 Inactive lidocaine (PF) 10 mg/mL (1 %) injection solution RxNorm: 4865540 1 Milliliter(s) Inj daily 04/04/2017 04/10/2017 Inactive Use to administer rocephin lidocaine (PF) 10 mg/mL (1 %) injection solution RxNorm: 4619817 1 Milliliter(s) Inj daily 04/04/2017 04/03/2017 Inactive Use to administer rocephin Rocephin 1 gram solution for injection RxNorm: 815870 1 Inj daily 04/04/2017 04/03/2017 Inactive Augmentin 500 mg-125 mg tablet RxNorm: 598300 1 Tablet(s) PO TID 03/31/2017 04/03/2017 Inactive Augmentin 500 mg-125 mg tablet RxNorm: 455240 1 Tablet(s) PO TID 03/31/2017 03/30/2017 Inactive Effexor XR 75 mg capsule,extended release RxNorm: 142769 TAKE 3 CAPSULES BY MOUTH EVERY MORNING 03/24/2017 11/13/2017 Inactive potassium chloride ER 20 mEq tablet,extended release RxNorm: 189933 1 TABLET(S) PO DAILY 03/13/2017 03/07/2018 Inactive lisinopril 40 mg tablet RxNorm: 528762 TAKE 1 TABLET BY MOUTH DAILY 02/06/2017 11/02/2017 Inactive pantoprazole 40 mg tablet,delayed release RxNorm: 489620 TAKE 1 TABLET BY MOUTH DAILY 12/19/2016 12/10/2017 Inactive oxycodone 5 mg tablet RxNorm: 6495760 4 Tablet(s) PO daily 12/19/2016 03/03/2017 Inactive diclofenac sodium 75 mg tablet,delayed release RxNorm: 168957 1 TABLET(S) PO BID 11/17/2016 08/13/2017 Inactive gabapentin 600 mg tablet RxNorm: 906754 TABLET(S) TAKE 1 TABLET BY MOUTH TWICE DAILY 10/14/2016 04/11/2017 Inactive Flagyl 500 mg tablet RxNorm: 919457 1 Tablet(s) PO TID 10/07/2016 10/16/2016 Inactive oxycodone 5 mg tablet RxNorm: 0925293 4 Tablet(s) PO daily 10/03/2016 12/16/2016 Inactive Effexor XR 75 mg capsule,extended release RxNorm: 974610 TAKE 3 CAPSULES BY MOUTH EVERY MORNING 09/22/2016 11/20/2016 Inactive Patient requests 90 days supply lisinopril 40 mg tablet RxNorm: 059845 TAKE 1 TABLET BY MOUTH DAILY 08/01/2016 01/27/2017 Inactive Effexor XR 75 mg capsule,extended release RxNorm: 630629 TAKE 3 CAPSULES BY MOUTH EVERY MORNING 07/21/2016 09/21/2016 Inactive oxycodone 5 mg tablet RxNorm: 2870481 4 Tablet(s) PO daily 07/11/2016 09/23/2016 Inactive Movantik 25 mg tablet RxNorm: 8983532 1 Tablet(s) PO daily 07/01/2016 11/13/2017 Inactive potassium chloride ER 20 mEq tablet,extended release RxNorm: 585572 1 TABLET(S) PO DAILY 06/14/2016 03/10/2017 Inactive Flagyl 500 mg tablet RxNorm: 674131 1 Tablet(s) PO TID 06/03/2016 06/12/2016 Inactive Flagyl 500 mg tablet RxNorm: 970993 1 Tablet(s) PO TID 06/03/2016 06/02/2016 Inactive oxycodone 5 mg tablet RxNorm: 2969290 4 Tablet(s) PO daily 04/27/2016 07/10/2016 Inactive Tamiflu 75 mg capsule RxNorm: 901517 1 Capsule(s) PO daily 04/19/2016 04/28/2016 Inactive Tamiflu 75 mg capsule RxNorm: 014765 1 Capsule(s) PO daily 04/19/2016 04/18/2016 Inactive Effexor XR 75 mg capsule,extended release RxNorm: 706312 TAKE 3 CAPSULES BY MOUTH EVERY MORNING 02/18/2016 04/17/2016 Inactive diclofenac sodium 75 mg tablet,delayed release RxNorm: 871882 1 TABLET(S) PO BID 02/18/2016 11/13/2016 Inactive Effexor XR 75 mg capsule,extended release RxNorm: 373088 Capsule(s) TAKE 3 CAPSULES BY MOUTH EVERY MORNING 02/17/2016 08/14/2016 Inactive oxycodone 5 mg tablet RxNorm: 9997562 4 Tablet(s) PO daily 02/04/2016 04/26/2016 Inactive clopidogrel 75 mg tablet RxNorm: 152778 1 TABLET(S) PO QAM 02/01/2016 01/25/2017 Inactive gabapentin 600 mg tablet RxNorm: 162066 Tablet(s) TAKE 1 TABLET BY MOUTH TWICE DAILY 02/01/2016 10/13/2016 Inactive Effexor XR 75 mg capsule,extended release RxNorm: 901777 TAKE 3 CAPSULES BY MOUTH EVERY MORNING 01/11/2016 02/09/2016 Inactive pantoprazole 40 mg tablet,delayed release RxNorm: 146417 TAKE 1 TABLET BY MOUTH DAILY 12/22/2015 12/15/2016 Inactive Effexor XR 75 mg capsule,extended release RxNorm: 587303 TAKE 3 CAPSULES BY MOUTH EVERY MORNING 11/16/2015 01/14/2016 Inactive lisinopril 40 mg tablet RxNorm: 490481 TAKE 1 TABLET BY MOUTH DAILY 11/05/2015 07/31/2016 Inactive Effexor XR 75 mg capsule,extended release RxNorm: 764764 TAKE 3 CAPSULES BY MOUTH EVERY MORNING 09/22/2015 11/20/2015 Inactive Augmentin 500 mg-125 mg tablet RxNorm: 458058 1 Tablet(s) PO TID 09/18/2015 09/24/2015 Inactive Anoro Ellipta 62.5 mcg-25 mcg/actuation powder for inhalation RxNorm: 0036640 1 INH daily 08/20/2015 02/15/2016 Inactive Anoro Ellipta 62.5 mcg-25 mcg/actuation powder for inhalation RxNorm: 8914707 1 INH DAILY 08/20/2015 11/13/2017 Inactive lisinopril 40 mg tablet RxNorm: 520541 TAKE 1 TABLET BY MOUTH DAILY 08/10/2015 11/04/2015 Inactive gabapentin 600 mg tablet RxNorm: 079478 TAKE 1 TABLET BY MOUTH TWICE DAILY 08/10/2015 01/31/2016 Inactive terazosin 2 mg capsule RxNorm: 180446 TAKE ONE CAPSULE BY MOUTH EVERY DAY 07/27/2015 08/29/2016 Inactive hyoscyamine 0.125 mg sublingual tablet RxNorm: 2920689 1 Tablet(s) SL TID as needed 07/24/2015 08/02/2015 Inactive metronidazole 500 mg tablet RxNorm: 515191 1 Tablet(s) PO TID 07/24/2015 07/30/2015 Inactive Effexor XR 75 mg capsule,extended release RxNorm: 050560 TAKE 3 CAPSULES BY MOUTH EVERY MORNING 07/23/2015 09/20/2015 Inactive oxycodone 5 mg tablet RxNorm: 1988031 4 Tablet(s) PO daily 06/26/2015 02/03/2016 Inactive potassium chloride ER 20 mEq tablet,extended release RxNorm: 812395 1 Tablet(s) PO daily 06/25/2015 06/13/2016 Inactive oxycodone 5 mg tablet RxNorm: 7417143 4 Tablet(s) PO daily 04/17/2015 06/25/2015 Inactive rx written Anoro Ellipta 62.5 mcg-25 mcg/actuation powder for inhalation RxNorm: 5831421 1 INH daily 04/17/2015 08/19/2015 Inactive potassium chloride ER 20 mEq tablet,extended release RxNorm: 234603 1 Tablet(s) PO daily 03/23/2015 06/24/2015 Inactive triamcinolone acetonide 0.1 % topical cream RxNorm: 6337271 1 Application TOP BID 03/20/2015 No Stop Date Active carvedilol 12.5 mg tablet RxNorm: 924116 1 TABLET(S) PO BID 02/23/2015 08/21/2015 Inactive diclofenac sodium 75 mg tablet,delayed release RxNorm: 739287 1 Tablet(s) PO BID 02/18/2015 02/12/2016 Inactive carvedilol 12.5 mg tablet RxNorm: 096687 1 Tablet(s) PO BID 02/17/2015 02/11/2016 Inactive furosemide 40 mg tablet RxNorm: 958417 1 Tablet(s) PO daily 02/17/2015 02/11/2016 Inactive lisinopril 40 mg tablet RxNorm: 390931 TAKE 1 TABLET BY MOUTH DAILY 02/16/2015 08/09/2015 Inactive ceftriaxone 1 gram solution for injection RxNorm: 9100082 1 Gram(s) Inj daily mix with lidocaine 01/14/2015 01/17/2015 Inactive please supply 4 bottles of 1gram rocephin IM with 1 bottle of lidocaine 1% for home health to administer to pt starting 01/15 ceftriaxone 1 gram solution for injection RxNorm: 9357046 1 Gram(s) Inj daily 01/14/2015 01/13/2015 Inactive please supply 4 bottles of 1gram rocephin IM with 1 bottle of lidocaine 1% for home health to administer to pt starting 01/15 Augmentin 500 mg-125 mg tablet RxNorm: 573569 1 Tablet(s) PO BID 01/13/2015 01/22/2015 Inactive Keflex 500 mg capsule RxNorm: 746796 1 Capsule(s) PO TID 12/12/2014 12/11/2014 Inactive Keflex 500 mg capsule RxNorm: 296164 1 Capsule(s) PO TID 12/12/2014 12/17/2014 Inactive Augmentin 500 mg-125 mg tablet RxNorm: 761847 1 Tablet(s) PO BID 11/28/2014 12/02/2014 Inactive Augmentin 500 mg-125 mg tablet RxNorm: 915609 1 Tablet(s) PO BID 11/28/2014 11/27/2014 Inactive Cipro 500 mg tablet RxNorm: 433694 1 Tablet(s) PO BID 11/24/2014 11/27/2014 Inactive gabapentin 600 mg tablet RxNorm: 218815 1 Tablet(s) PO BID 11/17/2014 08/13/2015 Inactive gabapentin 600 mg tablet RxNorm: 683376 1 Tablet(s) PO BID 11/17/2014 11/16/2014 Inactive oxycodone 5 mg tablet RxNorm: 6096214 4 Tablet(s) PO daily 11/07/2014 02/04/2015 Inactive rx written Effexor XR 75 mg capsule,extended release RxNorm: 960145 3 Capsule(s) 225 PO QAM 11/05/2014 03/04/2015 Inactive clopidogrel 75 mg tablet RxNorm: 083790 1 Tablet(s) PO QAM 11/05/2014 01/28/2016 Inactive Effexor XR 75 mg capsule,extended release RxNorm: 792932 3 Capsule(s) 225 PO QAM 11/03/2014 11/04/2014 Inactive carvedilol 12.5 mg tablet RxNorm: 390644 1 Tablet(s) PO BID 10/28/2014 02/16/2015 Inactive Effexor XR 75 mg capsule,extended release RxNorm: 084170 3 Capsule(s) 225 PO QAM 10/28/2014 11/02/2014 Inactive Effexor XR 75 mg capsule,extended release RxNorm: 574647 3 Capsule(s) 225 PO QAM 10/28/2014 10/27/2014 Inactive carvedilol 12.5 mg tablet RxNorm: 827693 1 Tablet(s) PO BID 10/28/2014 10/27/2014 Inactive ceftriaxone 1 gram solution for injection RxNorm: 2613011 Inj 09/05/2014 09/05/2014 Inactive Cipro 500 mg tablet RxNorm: 066049 1 Tablet(s) PO BID 09/04/2014 09/03/2014 Inactive Cipro 500 mg tablet RxNorm: 197258 1 Tablet(s) PO BID 09/04/2014 09/10/2014 Inactive oxycodone 5 mg tablet RxNorm: 7865494 4 Tablet(s) PO daily 08/20/2014 11/06/2014 Inactive rx written lisinopril 40 mg tablet RxNorm: 592027 TAKE 1 TABLET BY MOUTH DAILY 08/18/2014 02/13/2015 Inactive nystatin 100,000 unit/mL oral suspension RxNorm: 237805 5 Milliliter(s) PO QID 07/04/2014 07/13/2014 Inactive [SAVINGS FOR NON-COVERED DRUGS -- BIN:[id number], PCN: [id number], Group: [id number], ID# [id number], Questions: . THIS IS NOT INSURANCE.] WelChol 3.75 gram oral powder packet RxNorm: 069438 1 PO BID No Start Date Active amlodipine 10 mg tablet RxNorm: 238341 1 Tablet(s) PO QAM No Start Date Active One A Day oral RxNorm: 58009 oral No Start Date Active Vitamin D2 400 unit capsule RxNorm: 590266 1 Capsule(s) PO daily No Start Date Active aspirin 81 mg tablet,delayed release RxNorm: 544200 1 Tablet(s) PO daily No Start Date Active melatonin 5 mg disintegrating tablet RxNorm: 8521527 1 Tablet(s) PO QHS No Start Date Active Miralax 17 gram/dose oral powder RxNorm: 213396 17 Gram(s) PO daily in prune juice No Start Date Active clonidine HCl 0.1 mg tablet RxNorm: 669555 1 Tablet(s) PO QHS No Start Date Active hydrochlorothiazide oral RxNorm: 5487 oral No Start Date Active Lasix oral RxNorm: 992852 oral No Start Date 02/17/2015 Inactive potassium chloride 20 meq RxNorm: 446252 PO daily No Start Date 03/22/2015 Inactive Zoloft 25 mg tablet RxNorm: 951333 1 Tablet(s) PO daily x 5 days then increase to 50mg daily No Start Date 07/10/2017 Inactive oxycodone 5 mg tablet RxNorm: 4113183 3-4 Tablet(s) PO QHS No Start Date 08/19/2014 Inactive terazosin 2 mg capsule RxNorm: 384420 1 Capsule(s) PO daily No Start Date 07/26/2015 Inactive Effexor XR 75 mg capsule,extended release RxNorm: 951422 3 Capsule(s) 225 PO QAM No Start Date 10/27/2014 Inactive gabapentin 600 mg tablet RxNorm: 595325 1 Tablet(s) PO BID No Start Date 11/16/2014 Inactive pantoprazole 40 mg tablet,delayed release RxNorm: 240865 oral No Start Date 12/21/2015 Inactive Anoro Ellipta 62.5 mcg-25 mcg/actuation powder for inhalation RxNorm: 0888081 1 INH daily No Start Date 04/16/2015 Inactive diclofenac sodium 75 mg tablet,delayed release RxNorm: 100251 1 Tablet(s) PO BID No Start Date 02/17/2015 Inactive clopidogrel 75 mg tablet RxNorm: 232935 1 Tablet(s) PO QAM No Start Date 11/04/2014 Inactive lisinopril 40 mg tablet RxNorm: 810564 1 Tablet(s) PO daily No Start Date 08/17/2014 Inactive carvedilol 12.5 mg tablet RxNorm: 523265 1 Tablet(s) PO BID No Start Date 10/27/2014 Inactive Medication Administered Medication Codes Instructions Start Date Status ceftriaxone 500 mg solution for injection RxNorm: 6093840 2Milliliter 05/22/2018 No longer Active Kenalog 40 mg/mL suspension for injection RxNorm: 1333347 Milliliter 04/20/2018 No longer Active ceftriaxone 1 gram solution for injection RxNorm: 4894740 09/05/2014 No longer Active Immunizations Vaccine Codes [...] 20.6 % 05/22/2018 Cbc With Differential Ord2 Campbell% 14.7 % 05/22/2018 Cbc With Differential Ord2 [...] 2.01 K/ul 05/22/2018 Cbc With Differential Ord2 Campbell ABS# 1.4 K/ul 05/22/2018 Cbc With Differential Ord2 Eos ABS# 0.4 K/ul 05/22/2018 Cbc With Differential Ord2 Baso ABS# 0.0 K/ul 05/22/2018 Comp Metabolic Dyx291 NA 136 mEq/L 05/22/2018 Comp Metabolic Lyg303 K 4.7 mEq/L 05/22/2018 Comp Metabolic Kfb627 CL 104 mEq/L 05/22/2018 Comp Metabolic Hqh621 CO2 23.0 mEq/L 05/22/2018 Comp Metabolic Vhs123 ANION GAP 14 05/22/2018 Comp Metabolic Tac789 GLUCOSE 113 mg/dL 05/22/2018 Comp Metabolic Spp631 Creat 1.6 mg/dL 05/22/2018 Comp Metabolic Vai612 eGFR 46 ml/min/1.73m2 05/22/2018 Comp Metabolic Kde159 BUN 21 mg/dL 05/22/2018 Comp Metabolic Iik753 B/C Ratio 13.5 Ratio 05/22/2018 Comp Metabolic Ski222 CALCIUM 8.6 mg/dL 05/22/2018 Comp Metabolic Tgl527 ALK PHOS 84 U/L 05/22/2018 Comp Metabolic Gjj954 AST(SGOT) 17 U/L 05/22/2018 Comp Metabolic Hvj367 ALT(SGPT) 22 U/L 05/22/2018 Comp Metabolic Wlo703 BILI T 0.5 mg/dL 05/22/2018 Comp Metabolic Tlz999 ALBUMIN 3.4 g/dL 05/22/2018 Comp Metabolic Ylh764 TPRO 6.6 g/dL 05/22/2018 Comp Metabolic Dms658 GLOB 3.2 g/dL 05/22/2018 Comp Metabolic Rix144 A/G Ratio 1.0 Ratio 05/22/2018 Comp Metabolic Ybi948 Osmo 276 mOsmo 05/22/2018 B Type Natriuretic Peptide Lks8417 B-BELT LACER 258.00 pg/ml 05/22/2018 Magnesium Ord90 Mag 2.3 mg/dL 05/22/2018 Urine Culture Ucult Complete >100,000 col/ml aerobic growth sent to ref lab 12/15/2017 Lipid Ord30 CHOL 128 mg/dL 11/14/2017 Lipid Ord30 HDL 24.0 mg/dl 11/14/2017 Lipid Ord30 TRIG 206 mg/dL 11/14/2017 Lipid Ord30 LDL 63 mg/dL 11/14/2017 Lipid Ord30 C/HDL 5.3 Ratio 11/14/2017 Tsh Ord6 TSH (3rd IS) 3.24 uIU/mL 11/14/2017 Comp Metabolic Tky369 NA 137 mEq/L 11/14/2017 Comp Metabolic Xua376 K 4.0 mEq/L 11/14/2017 Comp Metabolic Dir874 CL 104 mEq/L 11/14/2017 Comp Metabolic Zxa885 CO2 23.0 mEq/L 11/14/2017 Comp Metabolic Jne154 ANION GAP 14 11/14/2017 Comp Metabolic Krm764 GLUCOSE 101 mg/dL 11/14/2017 Comp Metabolic Pfj365 Creat 1.1 mg/dL 11/14/2017 Comp Metabolic Gmz409 eGFR 67 ml/min/1.73m2 11/14/2017 Comp Metabolic Nju695 BUN 18 mg/dL 11/14/2017 Comp Metabolic Rbg453 B/C Ratio 15.9 Ratio 11/14/2017 Comp Metabolic Ysn580 CALCIUM 9.0 mg/dL 11/14/2017 Comp Metabolic Reg771 ALK PHOS 81 U/L 11/14/2017 Comp Metabolic Yre155 AST(SGOT) 19 U/L 11/14/2017 Comp Metabolic Qtb704 ALT(SGPT) 18 U/L 11/14/2017 Comp Metabolic Mhh432 BILI T 0.3 mg/dL 11/14/2017 Comp Metabolic Erf964 ALBUMIN 3.8 g/dL 11/14/2017 Comp Metabolic Hcm727 TPRO 7.3 g/dL 11/14/2017 Comp Metabolic Npz612 GLOB 3.5 g/dL 11/14/2017 Comp Metabolic Ehb558 A/G Ratio 1.1 Ratio 11/14/2017 Comp Metabolic Jne453 Osmo 276 mOsmo 11/14/2017 Cbc With Differential [...] 29.9 pg 11/14/2017 Cbc With Differential Ord2 Campbell% 11.2 % 11/14/2017 Cbc With Differential Ord2 [...] 1.85 K/ul 11/14/2017 Cbc With Differential Ord2 Campbell ABS# 1.0 K/ul 11/14/2017 Cbc With Differential Ord2 Eos ABS# 0.6 K/ul 11/14/2017 Cbc With Differential Ord2 Baso ABS# 0.0 K/ul 11/14/2017 Culture Urine [id number] URINE CULTURE SEE NOTES 05/22/2017 Culture Urine [id number] Continued Results 05/22/2017 Urine Culture Ucult Complete >100,000 col/ml aerobic growth sent to ref lab 05/16/2017 Culture Urine [id number] URINE CULTURE SEE NOTES 04/21/2017 Urine Culture [...] 30.9 pg 03/30/2017 Cbc With Differential Ord2 Campbell% 13.0 % 03/30/2017 Cbc With Differential Ord2 [...] 1.69 K/ul 03/30/2017 Cbc With Differential Ord2 Campbell ABS# 0.9 K/ul 03/30/2017 Cbc With Differential Ord2 Eos ABS# 0.5 K/ul 03/30/2017 Cbc With Differential Ord2 Baso ABS# 0.0 K/ul 03/30/2017 %Hba1C Lws418 % HbA1c 33511- 6 5.8 % 03/30/2017 %Hba1C Iqk925 Gluc Ave 120 mg/dL 03/30/2017 Comp Metabolic Ozg080 NA 140 mEq/L 03/30/2017 Comp Metabolic Jiz782 K 4.0 mEq/L 03/30/2017 Comp Metabolic The431 CL 105 mEq/L 03/30/2017 Comp Metabolic Hzv499 CO2 25.0 mEq/L 03/30/2017 Comp Metabolic Knf559 ANION GAP 14 03/30/2017 Comp Metabolic Dpq776 GLUCOSE 108 mg/dL 03/30/2017 Comp Metabolic Ehy840 Creat 1.2 mg/dL 03/30/2017 Comp Metabolic Etv200 eGFR 63 ml/min/1.73m2 03/30/2017 Comp Metabolic Ewt876 BUN 20 mg/dL 03/30/2017 Comp Metabolic Ieb914 B/C Ratio 16.9 Ratio 03/30/2017 Comp Metabolic Jir266 CALCIUM 9.2 mg/dL 03/30/2017 Comp Metabolic Nhe129 ALK PHOS 83 U/L 03/30/2017 Comp Metabolic Tib437 AST(SGOT) 17 U/L 03/30/2017 Comp Metabolic Dyw494 ALT(SGPT) 19 U/L 03/30/2017 Comp Metabolic Ovb748 BILI T 0.3 mg/dL 03/30/2017 Comp Metabolic Ynj630 ALBUMIN 3.9 g/dL 03/30/2017 Comp Metabolic Ruh402 TPRO 7.2 g/dL 03/30/2017 Comp Metabolic Pqj494 GLOB 3.3 g/dL 03/30/2017 Comp Metabolic Ste563 A/G Ratio 1.2 Ratio 03/30/2017 Comp Metabolic Rln087 Osmo 283 mOsmo 03/30/2017 Tsh Ord6 TSH (3rd IS) 1.40 uIU/mL 03/30/2017 Clostridium Diff Tox A/B Nrr863 Cdiff Positive 06/03/2016 Total Psa PSA 1.53 [...] 31.2 pg 03/20/2015 Cbc With Differential Ord2 Campbell% 12.8 % 03/20/2015 Cbc With Differential Ord2 [...] 1.69 K/ul 03/20/2015 Cbc With Differential Ord2 Campbell ABS# 0.8 K/ul 03/20/2015 Cbc With Differential Ord2 Eos ABS# 0.6 K/ul 03/20/2015 Cbc With Differential Ord2 Baso ABS# 0.0 K/ul 03/20/2015 Cbc With Differential Ord2 New Analyzer Notice Please note new ref ranges starting 03-04-2015 due to implemntation of new five part differential hematolgy analyzer. 03/20/2015 Total Psa Ord10 PSA 2.25 ng/mL 02/26/2015 Comp Metabolic Jfn015 NA 138 mEq/L 02/26/2015 Comp Metabolic Jkk169 K 4.0 mEq/L 02/26/2015 Comp Metabolic Tda947 CL 103 mEq/L 02/26/2015 Comp Metabolic Pxq794 CO2 28.0 mEq/L 02/26/2015 Comp Metabolic Bxl190 ANION GAP 11 02/26/2015 Comp Metabolic Hwv980 GLUCOSE 95 mg/dL 02/26/2015 Comp Metabolic Qrk132 Creat 1.0 mg/dL 02/26/2015 Comp Metabolic Ioo224 eGFR 74 ml/min/1.73m2 02/26/2015 Comp Metabolic Qcp905 BUN 19 mg/dL 02/26/2015 Comp Metabolic Ztl149 B/C Ratio 18.3 Ratio 02/26/2015 Comp Metabolic Zjn727 CALCIUM 9.1 mg/dL 02/26/2015 Comp Metabolic Tkd937 ALK PHOS 87 U/L 02/26/2015 Comp Metabolic Nkb191 AST(SGOT) 22 U/L 02/26/2015 Comp Metabolic Wnw039 ALT(SGPT) 24 U/L 02/26/2015 Comp Metabolic Xxo330 BILI T 0.4 mg/dL 02/26/2015 Comp Metabolic Sad153 ALBUMIN 4.0 g/dL 02/26/2015 Comp Metabolic Vws817 TPRO 7.4 g/dL 02/26/2015 Comp Metabolic Zgb873 GLOB 3.4 g/dL 02/26/2015 Comp Metabolic Oou317 A/G Ratio 1.2 Ratio 02/26/2015 Comp Metabolic Vta888 Osmo 278 mOsmo 02/26/2015 Culture Urine [id number] URINE CULTURE SEE NOTES 12/15/2014 Culture Urine [id number] Continued Results 12/15/2014 Urine Culture Ucult Complete >100,000 col/ml aerobic growth sent to ref lab 12/12/2014 Comp Metabolic Phf029 NA 136 mEq/L 12/05/2014 Comp Metabolic Wcj325 K 4.3 mEq/L 12/05/2014 Comp Metabolic Nrt480 CL 104 mEq/L 12/05/2014 Comp Metabolic Wpm980 CO2 29.0 mEq/L 12/05/2014 Comp Metabolic Zli873 ANION GAP 7 12/05/2014 Comp Metabolic Aca007 GLUCOSE 80 mg/dL 12/05/2014 Comp Metabolic Nxe072 Creat 1.1 mg/dL 12/05/2014 Comp Metabolic Gtj178 eGFR 68 ml/min/1.73m2 12/05/2014 Comp Metabolic Hox639 BUN 21 mg/dL 12/05/2014 Comp Metabolic Fgr200 B/C Ratio 18.8 Ratio 12/05/2014 Comp Metabolic Bws862 CALCIUM 9.3 mg/dL 12/05/2014 Comp Metabolic Lhs641 ALK PHOS 81 U/L 12/05/2014 Comp Metabolic Kfj616 AST(SGOT) 17 U/L 12/05/2014 Comp Metabolic Vxv925 ALT(SGPT) 16 U/L 12/05/2014 Comp Metabolic Xxy861 BILI T 0.3 mg/dL 12/05/2014 Comp Metabolic Uoq462 ALBUMIN 4.0 g/dL 12/05/2014 Comp Metabolic Nkv059 TPRO 6.9 g/dL 12/05/2014 Comp Metabolic Duf801 GLOB 2.9 g/dL 12/05/2014 Comp Metabolic Evc299 A/G Ratio 1.4 Ratio 12/05/2014 Comp Metabolic Nrm265 Osmo 274 mOsmo 12/05/2014 Cbc With Differential [...] Ord2 RDW 15.0 % 12/05/2014 Culture Urine [id number] URINE CULTURE SEE NOTES 11/27/2014 Culture Urine [id number] Continued Results 11/27/2014 Urine Culture Ucult Complete Growth of aerobe sent to ref lab 11/25/2014 B Type Natriuretic Peptide Dhr2848 B-BELT LACER 121.00 pg/ml 10/08/2014 Cbc With Differential Ord2 [...] Folate Ord36 Folate 22.12 ng/mL 10/08/2014 B12 Fzp549 B12 >1500.00 pg/ml 10/08/2014 Comp Metabolic Dce759 NA 135 mEq/L 10/08/2014 Comp Metabolic Uvr816 K 4.5 mEq/L 10/08/2014 Comp Metabolic Upe945 CL 104 mEq/L 10/08/2014 Comp Metabolic Cgs923 CO2 25.0 mEq/L 10/08/2014 Comp Metabolic Tkp867 ANION GAP 11 10/08/2014 Comp Metabolic Cfd158 GLUCOSE 73 mg/dL 10/08/2014 Comp Metabolic Ofv304 Creat 1.1 mg/dL 10/08/2014 Comp Metabolic Pbc089 eGFR 71 ml/min/1.73m2 10/08/2014 Comp Metabolic Geb302 BUN 21 mg/dL 10/08/2014 Comp Metabolic Dhw129 B/C Ratio 19.4 Ratio 10/08/2014 Comp Metabolic Pmd564 CALCIUM 9.0 mg/dL 10/08/2014 Comp Metabolic Xxq514 ALK PHOS 73 U/L 10/08/2014 Comp Metabolic Zwu086 AST(SGOT) 15 U/L 10/08/2014 Comp Metabolic Zft636 ALT(SGPT) 14 U/L 10/08/2014 Comp Metabolic Ogz099 BILI T 0.4 mg/dL 10/08/2014 Comp Metabolic Jqs887 ALBUMIN 4.2 g/dL 10/08/2014 Comp Metabolic Lnw558 TPRO 7.1 g/dL 10/08/2014 Comp Metabolic Ybk374 GLOB 2.9 g/dL 10/08/2014 Comp Metabolic Hyj495 A/G Ratio 1.4 Ratio 10/08/2014 Comp Metabolic Ufh005 Osmo 272 mOsmo 10/08/2014 B12 Vvm918 B12 554.00 pg/ml 09/16/2014 Tibc Ord40 Iron 108 ug/dl 09/16/2014 Tibc Ord40 UIBC 281 ug/dL 09/16/2014 Tibc Ord40 TIBC 389 ug/dL 09/16/2014 Tibc Ord40 Fe-%Sat 27.8 % 09/16/2014 Folate Ord36 Folate >23.20 ng/mL 09/16/2014 Comp Metabolic Exw031 NA 134 mEq/L 09/16/2014 Comp Metabolic Pla030 K 4.6 mEq/L 09/16/2014 Comp Metabolic Dnj670 CL 103 mEq/L 09/16/2014 Comp Metabolic Qtu117 CO2 25.0 mEq/L 09/16/2014 Comp Metabolic Cot332 ANION GAP 11 09/16/2014 Comp Metabolic Yxw240 GLUCOSE 93 mg/dL 09/16/2014 Comp Metabolic Oat668 Creat 1.2 mg/dL 09/16/2014 Comp Metabolic Kks827 eGFR 65 ml/min/1.73m2 09/16/2014 Comp Metabolic Jgj734 BUN 23 mg/dL 09/16/2014 Comp Metabolic Udo565 B/C Ratio 19.8 Ratio 09/16/2014 Comp Metabolic Ehi987 CALCIUM 9.1 mg/dL 09/16/2014 Comp Metabolic Qfk190 ALK PHOS 73 U/L 09/16/2014 Comp Metabolic Xff119 AST(SGOT) 18 U/L 09/16/2014 Comp Metabolic Sbc718 ALT(SGPT) 16 U/L 09/16/2014 Comp Metabolic Rtz748 BILI T 0.4 mg/dL 09/16/2014 Comp Metabolic Btg165 ALBUMIN 4.0 g/dL 09/16/2014 Comp Metabolic Ids737 TPRO 7.1 g/dL 09/16/2014 Comp Metabolic Ntj067 GLOB 3.1 g/dL 09/16/2014 Comp Metabolic Ibq860 A/G Ratio 1.3 Ratio 09/16/2014 Comp Metabolic Iif868 Osmo 272 mOsmo 09/16/2014 Cbc With Differential [...] Ord22 FERRITIN 36.2 ng/mL 09/16/2014 Culture Urine [id number] URINE CULTURE SEE NOTES 09/08/2014 Urine Culture [...] Ord2 RDW 17.8 % 09/05/2014 Comp Metabolic Oxu032 NA 133 mEq/L 09/05/2014 Comp Metabolic Nna763 K 4.9 mEq/L 09/05/2014 Comp Metabolic Jlm690 CL 99 mEq/L 09/05/2014 Comp Metabolic Kow449 CO2 26.0 mEq/L 09/05/2014 Comp Metabolic Kej814 ANION GAP 13 09/05/2014 Comp Metabolic Tmm359 GLUCOSE 83 mg/dL 09/05/2014 Comp Metabolic Vur469 Creat 1.5 mg/dL 09/05/2014 Comp Metabolic Ret578 eGFR 47 ml/min/1.73m2 09/05/2014 Comp Metabolic Vbp381 BUN 28 mg/dL 09/05/2014 Comp Metabolic Vtx797 B/C Ratio 18.3 Ratio 09/05/2014 Comp Metabolic Tga099 CALCIUM 8.9 mg/dL 09/05/2014 Comp Metabolic Ddx984 ALK PHOS 71 U/L 09/05/2014 Comp Metabolic Npu571 AST(SGOT) 18 U/L 09/05/2014 Comp Metabolic Lar713 ALT(SGPT) 29 U/L 09/05/2014 Comp Metabolic Xpo610 BILI T 0.6 mg/dL 09/05/2014 Comp Metabolic Tjx680 ALBUMIN 3.8 g/dL 09/05/2014 Comp Metabolic Kjo332 TPRO 6.7 g/dL 09/05/2014 Comp Metabolic Gsd855 GLOB 2.9 g/dL 09/05/2014 Comp Metabolic Qes057 A/G Ratio 1.3 Ratio 09/05/2014 Comp Metabolic Xcj379 Osmo 271 mOsmo 09/05/2014 Total Psa Ord10 [...] Procedure Codes Date THER/PROPH/DIAG INJ SC/IM CPT-4: 42327 05/22/2018 ROCEPHIN, PER 250 MG CPT- 4: J0696 05/22/2018 THER/PROPH/DIAG INJ SC/IM CPT-4: 29983 04/20/2018 TRIAMCINOLONE ACET INJ NOS CPT-4: J3301 04/20/2018 URINALYSIS NONAUTO W/O SCOPE CPT-4: 24869 12/14/2017 URINALYSIS NONAUTO W/O SCOPE CPT-4: 15776 05/15/2017 URINALYSIS NONAUTO W/O SCOPE CPT-4: 23709 09/18/2015 ADMIN INFLUENZA VIRUS VAC CPT-4: G0008 12/31/2014 FLU VACC PRSV FREE INC ANTIG Formatting Model/CDA Sections, Assigned to/[place] French CPT-4: 90087Nggftkh 12/31/2014 URINALYSIS NONAUTO W/O SCOPE CPT-4: 09635 12/10/2014 URINALYSIS NONAUTO W/O SCOPE CPT-4: 67187 11/24/2014 ROCEPHIN, PER 250 MG CPT- 4: J0696 09/05/2014 THER/PROPH/DIAG INJ SC/IM CPT-4: 11352 09/05/2014 URINALYSIS NONAUTO W/O SCOPE CPT-4: 13508 09/04/2014 Vital Signs Date Vital 05/25/2018 Blood [...] 1: 138/60 Code: 8480-6 BMI: 37.2 Code: 89835-3 Heart Rate 1: 79 bpm Height: 5'9" SpO2: 91% Weight: 252 lbs 07/01/2016 Blood Pressure 1: 138/68 Code: 8480-6 BMI: 37.2 Code: 20058-7 Heart Rate 1: 69 bpm Height: 5'9" SpO2: 93% Weight: 252 lbs 05/05/2016 Blood Pressure 1: 136/78 Code: 8480-6 BMI: 39.3 Code: 96124-6 Heart Rate 1: 72 bpm Height: 5'9" SpO2: 97% Weight: 266 lbs 02/23/2016 Blood Pressure 1: 145/70 Code: 8480-6 BMI: 37.5 Code: 00270-4 Heart Rate 1: 80 bpm Height: 5'9" Weight: 254 lbs 09/16/2015 Blood Pressure 1: 140/62 Code: 8480-6 Heart Rate 1: 77 bpm Height: 5'9" SpO2: 93% Weight: 07/24/2015 Blood Pressure 1: 152/68 Code: 8480-6 BMI: 37.7 Code: 90503-5 Heart Rate 1: 73 bpm Height: 5'9" SpO2: 97% Weight: 255 lbs 03/20/2015 Blood Pressure 1: 146/74 Code: 8480-6 BMI: 38.1 Code: 31298-7 Heart Rate 1: 63 bpm Height: 5'9" Weight: 258 lbs 01/13/2015 Blood Pressure 1: 120/58 Code: 8480-6 Heart Rate 1: 52 bpm Height: 5'9" SpO2: 97% Temperature: 37.1 (C) / 98.7 (F) Weight: 12/05/2014 Blood Pressure 1: 134/54 Code: 8480-6 BMI: 36.3 Code: 83425-9 Heart Rate 1: 76 bpm Height: 5'9" SpO2: 93% Weight: 246 lbs 10/03/2014 Blood Pressure 1: 132/60 Code: 8480-6 Heart Rate 1: 76 bpm Height: SpO2: 95% Weight: 254 lbs 09/15/2014 Blood Pressure 1: 120/68 Code: 8480-6 BMI: 37.5 Code: 54863-3 Heart Rate 1: 76 bpm Height: 5'9" SpO2: 93% Weight: 254 lbs 09/05/2014 Blood Pressure 1: 110/50 Code: 8480-6 BMI: 37.4 Code: 01050-1 Heart Rate 1: 79 bpm Height: 5'9" SpO2: 96% Temperature: 36.3 (C) / 97.4 (F) Weight: 253 lbs 07/04/2014 Blood Pressure 1: 138/72 Code: 8480-6 BMI: 37.1 Code: 93278-8 Heart Rate 1: 72 bpm Height: 5'9" [...] discomfort 12/05/2014 occasional ache in chest- seeing general maintenance technician in [place]- doing heart cath in [...] discomfort 10/03/2014 occasional ache in chest- seeing general maintenance technician in [place]- doing heart cath in [...] Directive data Encounters Encounter Performer Location Codes EST. 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 PATIENT, LEVEL III Diagnosis: Acute on chronic combined systolic (congestive) and diastolic (congestive) heart failure[ICD10: I50.43] Diagnosis: Pneumonia due to other specified bacteria[ICD10: J15.8] Mary Aburto MD, [facility] CPT-4: 17494 05/22/2018 [id number] EST. PATIENT, LEVEL III Diagnosis: Other acute sinusitis[ICD10: J01.80] Diagnosis: Other allergic rhinitis[ICD10: J30.89] Diagnosis: Cough[ICD10: R05] Mary Aburto MD, [facility] CPT-4: 96507 04/20/2018 ([id number]) 52803 EST. PATIENT, LEVEL IV Diagnosis: Essential (primary) hypertension[ICD10: I10] Diagnosis: Other iron deficiency anemias[ICD10: D50.8] Diagnosis: Weakness[ICD10: R53.1] Darleen Aburto MD, [facility] CPT-4: 40885 11/14/2017 [id number] EST. PATIENT, LEVEL IV Diagnosis: Other lesions of oral mucosa[ICD10: K13.79] Diagnosis: Candidal stomatitis[ICD10: B37.0] Diagnosis: Generalized anxiety disorder[ICD10: F41.1] Diagnosis: Major depressive disorder, single episode, moderate[ICD10: F32.1] Mary Aburto MD, [facility] CPT-4: 61990 08/15/2017 [id number] EST. PATIENT, LEVEL III Diagnosis: Generalized anxiety disorder[ICD10: F41.1] Diagnosis: Cauda equina syndrome[ICD10: G83.4] Diagnosis: Major depressive disorder, single episode, moderate[ICD10: F32.1] Mary Aburto MD, [facility] CPT-4: 88202 06/29/2017 [id number] EST. PATIENT, LEVEL IV Diagnosis: Dysuria[ICD10: R30.0] Diagnosis: Other malaise[ICD10: R53.81] Diagnosis: Cauda equina syndrome[ICD10: G83.4] Diagnosis: Weakness[ICD10: R53.1] Mary Aburto MD, [facility] CPT-4: 11578 03/30/2017 ([id number]) 96805 EST. PATIENT, LEVEL III Diagnosis: Cough[ICD10: R05] Diagnosis: Enterocolitis due to Clostridium difficile[ICD10: A04.7] Kavya Aburto MD, [facility] CPT-4: 27577 10/07/2016 ([id number]) 89996 EST. 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 PATIENT, LEVEL III Diagnosis: Cauda equina syndrome[ICD10: G83.4] Diagnosis: Irritable bowel syndrome with diarrhea[ICD10: K58.0] Mary Aburto MD, [facility] CPT-4: 08695 05/05/2016 [id number] EST. PATIENT, LEVEL III Diagnosis: Pain in right shoulder[ICD10: M25.511] Diagnosis: Weakness[ICD10: R53.1] Diagnosis: Shortness of breath[ICD10: R06.02] Mary Aburto MD, [facility] CPT-4: 36048 02/23/2016 [id number] EST. PATIENT, LEVEL III Diagnosis: Essential (primary) hypertension[ICD10: I10] Diagnosis: Other insomnia[ICD10: G47.09] Diagnosis: Irritable bowel syndrome with diarrhea[ICD10: K58.0] Diagnosis: Shortness of breath[ICD10: R06.02] Diagnosis: Weakness[ICD10: R53.1] Mary Aburto MD, [facility] CPT-4: 21202 09/16/2015 [id number] EST. PATIENT, LEVEL III Diagnosis: Diarrhea, unspecified[ICD10: R19.7] Diagnosis: Nausea[ICD10: R11.0] Mary Aburto MD, [facility] CPT-4: 82735 07/24/2015 [id number] EST. PATIENT, LEVEL IV Diagnosis: Other iron deficiency anemias[ICD10: D50.8] Diagnosis: Rash and other nonspecific skin eruption[ICD10: R21] Diagnosis: Cauda equina syndrome[ICD10: G83.4] Diagnosis: Essential (primary) hypertension[ICD10: I10] Diagnosis: Other pruritus[ICD10: L29.8] Diagnosis: Shortness of breath[ICD10: R06.02] Mary Aburto MD, [facility] CPT-4: 84201 03/20/2015 [id number] EST. PATIENT, LEVEL IV Diagnosis: Urinary tract infection, site not specified[ICD10: N39.0] Diagnosis: Umbilical hernia without obstruction or gangrene[ICD10: K42.9] Diagnosis: Cauda equina syndrome[ICD10: G83.4] Mary Aburto MD, [facility] CPT- 4: 21355 01/13/2015 ([id number]) 75123 EST. PATIENT, LEVEL IV Diagnosis: Iron deficiency anemia, unspecified[ICD10: D50.9] Diagnosis: Essential (primary) hypertension[ICD10: I10] Diagnosis: Hematuria, unspecified[ICD10: R31.9] Kavya Aburto MD, [facility] CPT-4: 14292 12/05/2014 ([id number]) 88204 EST. PATIENT, LEVEL IV Diagnosis: ESSENTIAL HYPERTENSION[ICD9: 401.9] Diagnosis: COPD (chronic obstructive pulmonary disease)[ICD9: 496] Diagnosis: ANEMIA[ICD9: 285.9] Diagnosis: SHORTNESS OF BREATH[ICD9: 786.05] Kavya Aburto MD, [facility] CPT- 4: 52129 10/03/2014 ([id number]) 39643 EST. PATIENT, LEVEL IV Diagnosis: ESSENTIAL HYPERTENSION[ICD9: 401.9] Diagnosis: ANEMIA[ICD9: 285.9] Diagnosis: MALAISE AND FATIGUE[ICD9: 780.79] Darleen Aburto MD, [facility] CPT- 4: 74117 09/15/2014 ([id number]) 52379 EST. PATIENT, LEVEL III Diagnosis: UTI[ICD9: 599.0] Diagnosis: Chronic back pain[ICD9: 724.5] Kavya Aburto MD, [facility] CPT-4: 50281 09/05/2014 ([id number]) OFFICE VISIT, NEW - LEVEL 4 Diagnosis: ESSENTIAL HYPERTENSION[ICD9: 401.9] Diagnosis: THRUSH[ICD9: 112.0] Diagnosis: Hyperlipidemia[ICD9: 272.4] Diagnosis: COPD (chronic obstructive pulmonary disease)[ICD9: 496] Diagnosis: Cauda equina syndrome[ICD9: 344.60] Diagnosis: History of prostate cancer[ICD9: V10.46] Kavya Aburto MD, [facility] CPT-4: 36590 07/04/2014 Plan of Care Planned Activity Notes [...] at home. 05/25/2018 Appointment: Mary Alan WPtel: [address] [place], [place] [phone] (30 min) [facility] 05/25/2018 Patient Education: Patient Medication Summary Completed [...] O2. 05/22/2018 Appointment: Mary Alan WPtel: [phone] [facility] (30 min) Complex 05/22/2018 Patient Education: Patient [...] spray. 04/20/2018 [facility]ment[phone] ([facility] Moderate 04/20/2018 Patient Education: Patient Medication Summary Completed 04/20/2018 Appointment: Lab Draw 12/14/2017 Patient Education: Patient Medication Summary Completed 12/14/2017 Appointment: [phone] [facility] (15 min) Moderate 11/28/2017 Visit Plan: Hypertension [...] - waiting on culture report. 11/14/2017 Appointment: Criselda Darleen WPtel: [facility] (15 min) Moderate 11/14/2017 Patient Education: Patient [...] patient. 08/15/2017 Appointment: Mary Alan WPtel: [phone] [facility] (30 min) Complex 08/15/2017 Patient Education: Patient Medication Summary Completed 08/15/2017 Appointment: Mary Alan WPtel: [phone] [facility] (15 min) Moderate 08/08/2017 Appointment: Mary Alan WPtel: [phone] [facility] (15 min) Moderate 08/03/2017 Visit Plan: [...] pain symptoms. 06/29/2017 Appointment: Mary Alan WPtel: [phone] [facility] [place] (15 min) Moderate 06/29/2017 Patient Education: [...] improve. 03/30/2017 Appointment: Mary Alan WPtel: [phone] [facility] (30 min) Complex 03/30/2017 Patient Education: Patient Medication Summary Completed 03/30/2017 Visit Plan: Cough-suspect virus-patient to monitor over the weekend-call Monday if symptoms persist and we will do a chest xray and sputum culture Cdiff-treat with flagyl as directed-call if symptoms do not resolve 10/07/2016 Appointment: Kavya Subramanian WPtel: [phone] [phone] [place] (30 min) Complex 10/07/2016 Patient Education: Patient Medication Summary Completed 10/07/2016 Patient Education: Obesity Completed 10/07/2016 Visit Plan: Cauda equina-chronic back pain-generalized weakness- right shoulder pain/weakness-patient to contact [facility] for mobility paperwork-will ask PT to do a mobility exam through [facility] Drug induced constipation-rx for movantik. 07/01/2016 Visit Plan: Cauda equina-chronic back pain-generalized weakness- bilateral shoulder pain/weakness-OA knees-patient to contact [facility] for mobility paperwork-will ask PT to do a mobility exam through [facility]. Patient is non ambulatory due to cauda [...] movantik. 07/01/2016 Appointment: Kavya Subramanian WPtel: [phone] [phone] [place] (30 min) Complex 07/01/2016 Patient [...] surgery. 05/05/2016 [facility]ment: [phone] [facility] 05/05/2016 Patient Education: Patient Medication [...] Juan godoy. 02/23/2016 Appointment: [facility] Alan [facility]Ptel[facility] [place] (30 min) Complex 02/23/2016 Patient Education: Patient Medication Summary Completed 02/23/2016 Appointment: [facility] Alan [facility]Ptel: [facility] [place] (30 min) Complex 02/19/2016 Appointment: Darleen Aburto WPtel: [facility] [place] (15 min) Moderate 10/14/2015 Appointment: Lab [...] having loose bowel movements. Keep appointment with [employer] Floor[employer] Specialist Make an appointment with general maintenance technician - to follow up on shortness of breath. Weakness - pt is to contact Juan Godoy in [facility] when he is [...] not improved. 07/24/2015 Appointment: Kavya Subramanian WPtel: [address] [place], [place] [phone] (30 min) [facility] 07/24/2015 Patient Education: Patient Medication Summary Completed [...] hypertension. 09/15/2014 Appointment: Darleen Aburto [facility]Ptel[facility] [phone] [facility] (15 min) Moderate 09/15/2014 Patient Education: Patient [...] equina-increased incontinence of bowels-recommend follow up with marketing analytics specialist-will discuss repeat MRI with Dr Aburto-keep [...] PT evaluation for motorized wheelchair through [facility] . Cauda equina-chronic back pain-generalized weakness-right shoulder pain/weakness- patient to contact [facility] for mobility paperwork-will ask PT to do a mobility exam through [facility] Drug induced constipation-rx for movantik. Nikolai Montalvo to do PT evaluation for motorized wheelchair through [facility] . Cauda equina-chronic back pain-generalized weakness-bilateral shoulder pain/weakness- OA knees-patient to contact [facility] for mobility paperwork-will ask PT to do a mobility exam through [facility]. Patient is non ambulatory due to cauda [...] incontinence of bowels- recommend follow up with marketing analytics specialist-will discuss repeat MRI with Dr Aburto-keep [...] (start tomorrow) let us know what your general maintenance technician says at your appointment chest x-ray if [...] chair - will have pt contact [facility]. . Cauda Equina, weakness, gait [...] Peng 4. Make an appointment with your general maintenance technician - to follow up on shortness of breath. 5. Call us when you here about the mobility paperwork and we will fill out the paperwork. Juan Godoy in [facility] . Hypertension - The patient has [...] having loose bowel movements. Keep appointment with [employer] Floor[employer] Specialist Make an appointment with general maintenance technician - to follow up on shortness of breath. Weakness - pt is to contact [facility] Godoy in [facility] when he is [...] 2 pills daily. Will consult Tiffany Bullard [facility] PT. Cauda Equina - stable - continue [...]
--- OUTSIDE RECORDS SUMMARY | 2018-07-19 09:15 | XMS REPORT | CCD ---
Author Author Kavya Subramanian Organization [facility] Address [address] [place] [address] Phone Care Team Providers Care Cell Biology Scientist Name Role Phone PP Unavailable CCM Unavailable Summary Purpose Interface Exchange Insurance Providers Payer name Policy type / Coverage type Covered democrat ID Effective Begin Date Effective End Date WPS Medicare Part B Commercial Insurance [id number] Unknown Unknown HEALTH[employer]ICE Commercial Insurance [id number] Unknown Unknown Family history Father Diagnosis Age At Onset Coronary Artery Disease Unknown Mother Diagnosis Age At Onset Arthritis Unknown Sister Diagnosis Age At Onset Alzheimer's Disease Unknown Social History Social History Element Codes Description Effective Dates Marital status Unknown 07/04/2014 Number of children Unknown 2 07/04/2014 Living arrangements Unknown House 07/04/[address]: 6562371 Quit over 10 years ago 07/04/2014 Alcohol history Unknown occasionally drinks alcohol 07/04/2014 Frequency of drinks SNOMED CT: 769192078 Drinks rarely 07/04/2014 Allergies, Adverse Reactions, Alerts Substance Reaction Codes Entered Date Inactivated Date Status * NO KNOWN FOOD ALLERGIES Unknown 07/04/2014 No Inactive Date Active Iodine rash, pruritis, RxNorm: 5933 03/04/2015 No Inactive Date Active tramadol pruritis RxNorm: 79956 07/04/2014 No Inactive Date Active Past Medical [...] Start Date Stop Date Status Fill Instructions cefdinir 300 mg capsule RxNorm: 703810 1 Capsule(s) PO BID 05/22/2018 05/31/2018 Active Zithromax Z-Win 250 mg tablet RxNorm: 170723 Tablet(s) PO UD 05/22/2018 No Stop Date Active albuterol sulfate 2.5 mg/3 mL (0.083 %) solution for nebulization RxNorm: 751308 3 Milliliter(s) INH UD 05/22/2018 No Stop Date Active ceftriaxone 500 mg solution for injection RxNorm: 8391890 2 Milliliter(s) Inj 05/22/2018 05/22/2018 Inactive diclofenac sodium 75 mg tablet,delayed release RxNorm: 597692 1 TABLET(S) PO BID 05/14/2018 02/07/2019 Active gabapentin 600 mg tablet RxNorm: 215431 TABLET(S) TAKE 1 TABLET BY MOUTH TWICE DAILY 04/23/2018 04/17/2019 Active prednisone 20 mg tablet RxNorm: 498847 2 Tablet(s) PO daily 04/20/2018 04/24/2018 Inactive Kenalog 40 mg/mL suspension for injection RxNorm: 7426188 Milliliter(s) Inj 04/20/2018 04/20/2018 Inactive Augmentin 500 mg-125 mg tablet RxNorm: 986673 1 Tablet(s) PO TID 04/20/2018 04/26/2018 Inactive oxycodone 5 mg tablet RxNorm: 9687844 4 Tablet(s) PO daily 04/12/2018 06/25/2018 Active potassium chloride ER 20 mEq tablet,extended release RxNorm: 301856 1 TABLET(S) PO DAILY 03/09/2018 03/03/2019 Active oxycodone 5 mg tablet RxNorm: 9326820 4 Tablet(s) PO daily 01/18/2018 04/02/2018 Inactive Augmentin 500 mg-125 mg tablet RxNorm: 800238 1 Tablet(s) PO TID 12/14/2017 12/23/2017 Inactive take probiotic bid x 10 days pantoprazole 40 mg tablet,delayed release RxNorm: 706380 TAKE 1 TABLET BY MOUTH DAILY 12/11/2017 12/05/2018 Active Augmentin 500 mg-125 mg tablet RxNorm: 317376 1 Tablet(s) PO TID 11/17/2017 11/22/2017 Inactive take probiotic bid x 7 days lisinopril 40 mg tablet RxNorm: 943209 TAKE 1 TABLET BY MOUTH DAILY 11/06/2017 08/02/2018 Active oxycodone 5 mg tablet RxNorm: 0627169 4 Tablet(s) PO daily 10/16/2017 12/29/2017 Inactive Cymbalta 30 mg capsule,delayed release RxNorm: 098640 2 Capsule(s) PO daily 08/17/2017 02/12/2018 Inactive Zoloft 25 mg tablet RxNorm: 153354 1 TABLET(S) PO DAILY X 5 DAYS THEN INCREASE TO 50MG DAILY 08/16/2017 No Stop Date Active Cymbalta 30 mg capsule,delayed release RxNorm: 428941 1 Capsule(s) PO 1 CAPSULE(S) PO DAILY X 1 WEEK, THEN INCREASE TO 2 DAILY 08/15/2017 08/16/2017 Inactive Patient requests 90 days supply diclofenac sodium 75 mg tablet,delayed release RxNorm: 830803 1 TABLET(S) PO BID 08/14/2017 05/10/2018 Inactive oxycodone 5 mg tablet RxNorm: 7156532 4 Tablet(s) PO daily 08/01/2017 10/14/2017 Inactive valacyclovir 1 gram tablet RxNorm: 991064 1 Tablet(s) PO TID 07/12/2017 07/11/2017 Inactive Zoloft 50 mg tablet RxNorm: 360983 1 Tablet(s) PO daily 07/12/2017 08/01/2017 Inactive valacyclovir 1 gram tablet RxNorm: 026146 1 Tablet(s) PO TID 07/12/2017 07/18/2017 Inactive Zoloft 50 mg tablet RxNorm: 877650 1 Tablet(s) PO daily 07/12/2017 07/11/2017 Inactive Zoloft 25 mg tablet RxNorm: 146810 1 Tablet(s) PO daily x 5 days then increase to 50mg daily 07/11/2017 07/11/2017 Inactive Cymbalta 30 mg capsule,delayed release RxNorm: 312660 1 Capsule(s) PO daily x 1 week, then increase to 2 daily 06/30/2017 06/29/2017 Inactive Cymbalta 30 mg capsule,delayed release RxNorm: 603080 1 CAPSULE(S) PO DAILY X 1 WEEK, THEN INCREASE TO 2 DAILY 06/30/2017 07/04/2017 Inactive Patient requests 90 days supply Augmentin 875 mg-125 mg tablet RxNorm: 539801 1 Tablet(s) PO BID 05/22/2017 05/28/2017 Inactive Probiotic QID while on antibiotics Bactrim DS 800 mg-160 mg tablet RxNorm: 259724 1 Tablet(s) PO BID 05/22/2017 05/21/2017 Inactive Probiotic QID while on antibiotics Bactrim DS 800 mg-160 mg tablet RxNorm: 185989 1 Tablet(s) PO BID 05/22/2017 05/28/2017 Inactive Probiotic QID while on antibiotics Augmentin 875 mg-125 mg tablet RxNorm: 796013 1 Tablet(s) PO BID 05/22/2017 05/21/2017 Inactive Probiotic QID while on antibiotics Cipro 500 mg tablet RxNorm: 973991 1 Tablet(s) PO BID 04/21/2017 04/30/2017 Inactive Take probiotic while on ABT Cipro 500 mg tablet RxNorm: 362347 1 Tablet(s) PO BID 04/21/2017 04/20/2017 Inactive Diflucan 150 mg tablet RxNorm: 027828 1 Tablet(s) PO daily 04/19/2017 11/13/2017 Inactive Diflucan 150 mg tablet RxNorm: 884961 1 Tablet(s) PO daily 04/19/2017 04/18/2017 Inactive oxycodone 5 mg tablet RxNorm: 5789547 4 Tablet(s) PO daily 04/17/2017 06/30/2017 Inactive gabapentin 600 mg tablet RxNorm: 813920 TABLET(S) TAKE 1 TABLET BY MOUTH TWICE DAILY 04/14/2017 04/08/2018 Inactive Rocephin 1 gram solution for injection RxNorm: 821150 1 Inj daily 04/05/2017 04/11/2017 Inactive Rocephin 1 gram solution for injection RxNorm: 869199 1 Inj daily 04/04/2017 04/04/2017 Inactive lidocaine (PF) 10 mg/mL (1 %) injection solution RxNorm: 7544427 1 Milliliter(s) Inj daily 04/04/2017 04/10/2017 Inactive Use to administer rocephin lidocaine (PF) 10 mg/mL (1 %) injection solution RxNorm: 9840394 1 Milliliter(s) Inj daily 04/04/2017 04/03/2017 Inactive Use to administer rocephin Rocephin 1 gram solution for injection RxNorm: 911106 1 Inj daily 04/04/2017 04/03/2017 Inactive Augmentin 500 mg-125 mg tablet RxNorm: 901156 1 Tablet(s) PO TID 03/31/2017 04/03/2017 Inactive Augmentin 500 mg-125 mg tablet RxNorm: 763364 1 Tablet(s) PO TID 03/31/2017 03/30/2017 Inactive Effexor XR 75 mg capsule,extended release RxNorm: 558625 TAKE 3 CAPSULES BY MOUTH EVERY MORNING 03/24/2017 11/13/2017 Inactive potassium chloride ER 20 mEq tablet,extended release RxNorm: 728705 1 TABLET(S) PO DAILY 03/13/2017 03/07/2018 Inactive lisinopril 40 mg tablet RxNorm: 917630 TAKE 1 TABLET BY MOUTH DAILY 02/06/2017 11/02/2017 Inactive pantoprazole 40 mg tablet,delayed release RxNorm: 228503 TAKE 1 TABLET BY MOUTH DAILY 12/19/2016 12/10/2017 Inactive oxycodone 5 mg tablet RxNorm: 9166316 4 Tablet(s) PO daily 12/19/2016 03/03/2017 Inactive diclofenac sodium 75 mg tablet,delayed release RxNorm: 067331 1 TABLET(S) PO BID 11/17/2016 08/13/2017 Inactive gabapentin 600 mg tablet RxNorm: 916441 TABLET(S) TAKE 1 TABLET BY MOUTH TWICE DAILY 10/14/2016 04/11/2017 Inactive Flagyl 500 mg tablet RxNorm: 420049 1 Tablet(s) PO TID 10/07/2016 10/16/2016 Inactive oxycodone 5 mg tablet RxNorm: 3425273 4 Tablet(s) PO daily 10/03/2016 12/16/2016 Inactive Effexor XR 75 mg capsule,extended release RxNorm: 440008 TAKE 3 CAPSULES BY MOUTH EVERY MORNING 09/22/2016 11/20/2016 Inactive Patient requests 90 days supply lisinopril 40 mg tablet RxNorm: 560307 TAKE 1 TABLET BY MOUTH DAILY 08/01/2016 01/27/2017 Inactive Effexor XR 75 mg capsule,extended release RxNorm: 844730 TAKE 3 CAPSULES BY MOUTH EVERY MORNING 07/21/2016 09/21/2016 Inactive oxycodone 5 mg tablet RxNorm: 7550210 4 Tablet(s) PO daily 07/11/2016 09/23/2016 Inactive Movantik 25 mg tablet RxNorm: 4803744 1 Tablet(s) PO daily 07/01/2016 11/13/2017 Inactive potassium chloride ER 20 mEq tablet,extended release RxNorm: 935676 1 TABLET(S) PO DAILY 06/14/2016 03/10/2017 Inactive Flagyl 500 mg tablet RxNorm: 233520 1 Tablet(s) PO TID 06/03/2016 06/12/2016 Inactive Flagyl 500 mg tablet RxNorm: 541027 1 Tablet(s) PO TID 06/03/2016 06/02/2016 Inactive oxycodone 5 mg tablet RxNorm: 4015576 4 Tablet(s) PO daily 04/27/2016 07/10/2016 Inactive Tamiflu 75 mg capsule RxNorm: 323220 1 Capsule(s) PO daily 04/19/2016 04/28/2016 Inactive Tamiflu 75 mg capsule RxNorm: 462424 1 Capsule(s) PO daily 04/19/2016 04/18/2016 Inactive Effexor XR 75 mg capsule,extended release RxNorm: 826836 TAKE 3 CAPSULES BY MOUTH EVERY MORNING 02/18/2016 04/17/2016 Inactive diclofenac sodium 75 mg tablet,delayed release RxNorm: 418141 1 TABLET(S) PO BID 02/18/2016 11/13/2016 Inactive Effexor XR 75 mg capsule,extended release RxNorm: 434516 Capsule(s) TAKE 3 CAPSULES BY MOUTH EVERY MORNING 02/17/2016 08/14/2016 Inactive oxycodone 5 mg tablet RxNorm: 8775604 4 Tablet(s) PO daily 02/04/2016 04/26/2016 Inactive clopidogrel 75 mg tablet RxNorm: 047053 1 TABLET(S) PO QAM 02/01/2016 01/25/2017 Inactive gabapentin 600 mg tablet RxNorm: 303575 Tablet(s) TAKE 1 TABLET BY MOUTH TWICE DAILY 02/01/2016 10/13/2016 Inactive Effexor XR 75 mg capsule,extended release RxNorm: 645663 TAKE 3 CAPSULES BY MOUTH EVERY MORNING 01/11/2016 02/09/2016 Inactive pantoprazole 40 mg tablet,delayed release RxNorm: 195415 TAKE 1 TABLET BY MOUTH DAILY 12/22/2015 12/15/2016 Inactive Effexor XR 75 mg capsule,extended release RxNorm: 750169 TAKE 3 CAPSULES BY MOUTH EVERY MORNING 11/16/2015 01/14/2016 Inactive lisinopril 40 mg tablet RxNorm: 122420 TAKE 1 TABLET BY MOUTH DAILY 11/05/2015 07/31/2016 Inactive Effexor XR 75 mg capsule,extended release RxNorm: 249103 TAKE 3 CAPSULES BY MOUTH EVERY MORNING 09/22/2015 11/20/2015 Inactive Augmentin 500 mg-125 mg tablet RxNorm: 069374 1 Tablet(s) PO TID 09/18/2015 09/24/2015 Inactive Anoro Ellipta 62.5 mcg-25 mcg/actuation powder for inhalation RxNorm: 5937552 1 INH daily 08/20/2015 02/15/2016 Inactive Anoro Ellipta 62.5 mcg-25 mcg/actuation powder for inhalation RxNorm: 4619671 1 INH DAILY 08/20/2015 11/13/2017 Inactive lisinopril 40 mg tablet RxNorm: 121441 TAKE 1 TABLET BY MOUTH DAILY 08/10/2015 11/04/2015 Inactive gabapentin 600 mg tablet RxNorm: 367067 TAKE 1 TABLET BY MOUTH TWICE DAILY 08/10/2015 01/31/2016 Inactive terazosin 2 mg capsule RxNorm: 453230 TAKE ONE CAPSULE BY MOUTH EVERY DAY 07/27/2015 08/29/2016 Inactive hyoscyamine 0.125 mg sublingual tablet RxNorm: 3028877 1 Tablet(s) SL TID as needed 07/24/2015 08/02/2015 Inactive metronidazole 500 mg tablet RxNorm: 266737 1 Tablet(s) PO TID 07/24/2015 07/30/2015 Inactive Effexor XR 75 mg capsule,extended release RxNorm: 412289 TAKE 3 CAPSULES BY MOUTH EVERY MORNING 07/23/2015 09/20/2015 Inactive oxycodone 5 mg tablet RxNorm: 5536618 4 Tablet(s) PO daily 06/26/2015 02/03/2016 Inactive potassium chloride ER 20 mEq tablet,extended release RxNorm: 514078 1 Tablet(s) PO daily 06/25/2015 06/13/2016 Inactive oxycodone 5 mg tablet RxNorm: 7536741 4 Tablet(s) PO daily 04/17/2015 06/25/2015 Inactive rx written Anoro Ellipta 62.5 mcg-25 mcg/actuation powder for inhalation RxNorm: 5224318 1 INH daily 04/17/2015 08/19/2015 Inactive potassium chloride ER 20 mEq tablet,extended release RxNorm: 881551 1 Tablet(s) PO daily 03/23/2015 06/24/2015 Inactive triamcinolone acetonide 0.1 % topical cream RxNorm: 1991263 1 Application TOP BID 03/20/2015 No Stop Date Active carvedilol 12.5 mg tablet RxNorm: 843933 1 TABLET(S) PO BID 02/23/2015 08/21/2015 Inactive diclofenac sodium 75 mg tablet,delayed release RxNorm: 213354 1 Tablet(s) PO BID 02/18/2015 02/12/2016 Inactive carvedilol 12.5 mg tablet RxNorm: 484201 1 Tablet(s) PO BID 02/17/2015 02/11/2016 Inactive furosemide 40 mg tablet RxNorm: 449285 1 Tablet(s) PO daily 02/17/2015 02/11/2016 Inactive lisinopril 40 mg tablet RxNorm: 599909 TAKE 1 TABLET BY MOUTH DAILY 02/16/2015 08/09/2015 Inactive ceftriaxone 1 gram solution for injection RxNorm: 0007785 1 Gram(s) Inj daily mix with lidocaine 01/14/2015 01/17/2015 Inactive please supply 4 bottles of 1gram rocephin IM with 1 bottle of lidocaine 1% for home health to administer to pt starting 01/15 ceftriaxone 1 gram solution for injection RxNorm: 9230275 1 Gram(s) Inj daily 01/14/2015 01/13/2015 Inactive please supply 4 bottles of 1gram rocephin IM with 1 bottle of lidocaine 1% for home health to administer to pt starting 01/15 Augmentin 500 mg-125 mg tablet RxNorm: 931266 1 Tablet(s) PO BID 01/13/2015 01/22/2015 Inactive Keflex 500 mg capsule RxNorm: 693693 1 Capsule(s) PO TID 12/12/2014 12/11/2014 Inactive Keflex 500 mg capsule RxNorm: 040735 1 Capsule(s) PO TID 12/12/2014 12/17/2014 Inactive Augmentin 500 mg-125 mg tablet RxNorm: 770044 1 Tablet(s) PO BID 11/28/2014 12/02/2014 Inactive Augmentin 500 mg-125 mg tablet RxNorm: 858020 1 Tablet(s) PO BID 11/28/2014 11/27/2014 Inactive Cipro 500 mg tablet RxNorm: 125412 1 Tablet(s) PO BID 11/24/2014 11/27/2014 Inactive gabapentin 600 mg tablet RxNorm: 021152 1 Tablet(s) PO BID 11/17/2014 08/13/2015 Inactive gabapentin 600 mg tablet RxNorm: 231986 1 Tablet(s) PO BID 11/17/2014 11/16/2014 Inactive oxycodone 5 mg tablet RxNorm: 4271738 4 Tablet(s) PO daily 11/07/2014 02/04/2015 Inactive rx written Effexor XR 75 mg capsule,extended release RxNorm: 938943 3 Capsule(s) 225 PO QAM 11/05/2014 03/04/2015 Inactive clopidogrel 75 mg tablet RxNorm: 552098 1 Tablet(s) PO QAM 11/05/2014 01/28/2016 Inactive Effexor XR 75 mg capsule,extended release RxNorm: 959440 3 Capsule(s) 225 PO QAM 11/03/2014 11/04/2014 Inactive carvedilol 12.5 mg tablet RxNorm: 840083 1 Tablet(s) PO BID 10/28/2014 02/16/2015 Inactive Effexor XR 75 mg capsule,extended release RxNorm: 992146 3 Capsule(s) 225 PO QAM 10/28/2014 11/02/2014 Inactive Effexor XR 75 mg capsule,extended release RxNorm: 630021 3 Capsule(s) 225 PO QAM 10/28/2014 10/27/2014 Inactive carvedilol 12.5 mg tablet RxNorm: 232506 1 Tablet(s) PO BID 10/28/2014 10/27/2014 Inactive ceftriaxone 1 gram solution for injection RxNorm: 6695716 Inj 09/05/2014 09/05/2014 Inactive Cipro 500 mg tablet RxNorm: 170782 1 Tablet(s) PO BID 09/04/2014 09/03/2014 Inactive Cipro 500 mg tablet RxNorm: 095262 1 Tablet(s) PO BID 09/04/2014 09/10/2014 Inactive oxycodone 5 mg tablet RxNorm: 5793977 4 Tablet(s) PO daily 08/20/2014 11/06/2014 Inactive rx written lisinopril 40 mg tablet RxNorm: 298438 TAKE 1 TABLET BY MOUTH DAILY 08/18/2014 02/13/2015 Inactive nystatin 100,000 unit/mL oral suspension RxNorm: 761250 5 Milliliter(s) PO QID 07/04/2014 07/13/2014 Inactive [SAVINGS FOR NON-COVERED DRUGS -- BIN:[id number], PCN: [id number], Group: [id number], ID# [id number], Questions: . THIS IS NOT INSURANCE.] WelChol 3.75 gram oral powder packet RxNorm: 974838 1 PO BID No Start Date Active amlodipine 10 mg tablet RxNorm: 671781 1 Tablet(s) PO QAM No Start Date Active One A Day oral RxNorm: 61965 oral No Start Date Active Vitamin D2 400 unit capsule RxNorm: 868642 1 Capsule(s) PO daily No Start Date Active aspirin 81 mg tablet,delayed release RxNorm: 659373 1 Tablet(s) PO daily No Start Date Active melatonin 5 mg disintegrating tablet RxNorm: 2911547 1 Tablet(s) PO QHS No Start Date Active Miralax 17 gram/dose oral powder RxNorm: 915767 17 Gram(s) PO daily in prune juice No Start Date Active clonidine HCl 0.1 mg tablet RxNorm: 350483 1 Tablet(s) PO QHS No Start Date Active hydrochlorothiazide oral RxNorm: 5487 oral No Start Date Active Lasix oral RxNorm: 530471 oral No Start Date 02/17/2015 Inactive potassium chloride 20 meq RxNorm: 240101 PO daily No Start Date 03/22/2015 Inactive Zoloft 25 mg tablet RxNorm: 074037 1 Tablet(s) PO daily x 5 days then increase to 50mg daily No Start Date 07/10/2017 Inactive oxycodone 5 mg tablet RxNorm: 4626616 3-4 Tablet(s) PO QHS No Start Date 08/19/2014 Inactive terazosin 2 mg capsule RxNorm: 137628 1 Capsule(s) PO daily No Start Date 07/26/2015 Inactive Effexor XR 75 mg capsule,extended release RxNorm: 758248 3 Capsule(s) 225 PO QAM No Start Date 10/27/2014 Inactive gabapentin 600 mg tablet RxNorm: 886474 1 Tablet(s) PO BID No Start Date 11/16/2014 Inactive pantoprazole 40 mg tablet,delayed release RxNorm: 600414 oral No Start Date 12/21/2015 Inactive Anoro Ellipta 62.5 mcg-25 mcg/actuation powder for inhalation RxNorm: 1122611 1 INH daily No Start Date 04/16/2015 Inactive diclofenac sodium 75 mg tablet,delayed release RxNorm: 236805 1 Tablet(s) PO BID No Start Date 02/17/2015 Inactive clopidogrel 75 mg tablet RxNorm: 096200 1 Tablet(s) PO QAM No Start Date 11/04/2014 Inactive lisinopril 40 mg tablet RxNorm: 568884 1 Tablet(s) PO daily No Start Date 08/17/2014 Inactive carvedilol 12.5 mg tablet RxNorm: 997731 1 Tablet(s) PO BID No Start Date 10/27/2014 Inactive Medication Administered Medication Codes Instructions Start Date Status ceftriaxone 500 mg solution for injection RxNorm: 4110400 2Milliliter 05/22/2018 No longer Active Kenalog 40 mg/mL suspension for injection RxNorm: 1418032 Milliliter 04/20/2018 No longer Active ceftriaxone 1 gram solution for injection RxNorm: 8320314 09/05/2014 No longer Active Immunizations Vaccine Codes [...] 20.6 % 05/22/2018 Cbc With Differential Ord2 [place]% 14.7 % 05/22/2018 Cbc With Differential Ord2 [...] 2.01 K/ul 05/22/2018 Cbc With Differential Ord2 [place] ABS# 1.4 K/ul 05/22/2018 Cbc With Differential Ord2 Eos ABS# 0.4 K/ul 05/22/2018 Cbc With Differential Ord2 Baso ABS# 0.0 K/ul 05/22/2018 Comp Metabolic Cay899 NA 136 mEq/L 05/22/2018 Comp Metabolic Wtl294 K 4.7 mEq/L 05/22/2018 Comp Metabolic Yeb713 CL 104 mEq/L 05/22/2018 Comp Metabolic Nha553 CO2 23.0 mEq/L 05/22/2018 Comp Metabolic Xrp416 ANION GAP 14 05/22/2018 Comp Metabolic Qzg619 GLUCOSE 113 mg/dL 05/22/2018 Comp Metabolic Jdx797 Creat 1.6 mg/dL 05/22/2018 Comp Metabolic Rly482 eGFR 46 ml/min/1.73m2 05/22/2018 Comp Metabolic Ecd383 BUN 21 mg/dL 05/22/2018 Comp Metabolic Ypl406 B/C Ratio 13.5 Ratio 05/22/2018 Comp Metabolic Ydr469 CALCIUM 8.6 mg/dL 05/22/2018 Comp Metabolic Oec827 ALK PHOS 84 U/L 05/22/2018 Comp Metabolic Nkq608 AST(SGOT) 17 U/L 05/22/2018 Comp Metabolic Apf514 ALT(SGPT) 22 U/L 05/22/2018 Comp Metabolic Tfm800 BILI T 0.5 mg/dL 05/22/2018 Comp Metabolic Ein257 ALBUMIN 3.4 g/dL 05/22/2018 Comp Metabolic Sws462 TPRO 6.6 g/dL 05/22/2018 Comp Metabolic Zoi400 GLOB 3.2 g/dL 05/22/2018 Comp Metabolic Tzw622 A/G Ratio 1.0 Ratio 05/22/2018 Comp Metabolic Ngb713 Osmo 276 mOsmo 05/22/2018 B Type Natriuretic Peptide Ory1156 B-PROCUREMENT INTERNSHIP 258.00 pg/ml 05/22/2018 Magnesium Ord90 Mag 2.3 mg/dL 05/22/2018 Urine Culture Ucult Complete >100,000 col/ml aerobic growth sent to ref lab 12/15/2017 Lipid Ord30 CHOL 128 mg/dL 11/14/2017 Lipid Ord30 HDL 24.0 mg/dl 11/14/2017 Lipid Ord30 TRIG 206 mg/dL 11/14/2017 Lipid Ord30 LDL 63 mg/dL 11/14/2017 Lipid Ord30 C/HDL 5.3 Ratio 11/14/2017 Tsh Ord6 TSH (3rd IS) 3.24 uIU/mL 11/14/2017 Comp Metabolic Lhl424 NA 137 mEq/L 11/14/2017 Comp Metabolic Anj909 K 4.0 mEq/L 11/14/2017 Comp Metabolic Bhb796 CL 104 mEq/L 11/14/2017 Comp Metabolic Snv625 CO2 23.0 mEq/L 11/14/2017 Comp Metabolic Lnf613 ANION GAP 14 11/14/2017 Comp Metabolic Hxq365 GLUCOSE 101 mg/dL 11/14/2017 Comp Metabolic Rvf069 Creat 1.1 mg/dL 11/14/2017 Comp Metabolic Ygm541 eGFR 67 ml/min/1.73m2 11/14/2017 Comp Metabolic Mkn135 BUN 18 mg/dL 11/14/2017 Comp Metabolic Qtc712 B/C Ratio 15.9 Ratio 11/14/2017 Comp Metabolic Mbo525 CALCIUM 9.0 mg/dL 11/14/2017 Comp Metabolic Bxe181 ALK PHOS 81 U/L 11/14/2017 Comp Metabolic Wpb514 AST(SGOT) 19 U/L 11/14/2017 Comp Metabolic Wrq247 ALT(SGPT) 18 U/L 11/14/2017 Comp Metabolic Huj991 BILI T 0.3 mg/dL 11/14/2017 Comp Metabolic Dok612 ALBUMIN 3.8 g/dL 11/14/2017 Comp Metabolic Iwx545 TPRO 7.3 g/dL 11/14/2017 Comp Metabolic Gbv915 GLOB 3.5 g/dL 11/14/2017 Comp Metabolic Fvr808 A/G Ratio 1.1 Ratio 11/14/2017 Comp Metabolic Hxn194 Osmo 276 mOsmo 11/14/2017 Cbc With Differential [...] 29.9 pg 11/14/2017 Cbc With Differential Ord2 [place]% 11.2 % 11/14/2017 Cbc With Differential Ord2 [...] 1.85 K/ul 11/14/2017 Cbc With Differential Ord2 [place] ABS# 1.0 K/ul 11/14/2017 Cbc With Differential Ord2 Eos ABS# 0.6 K/ul 11/14/2017 Cbc With Differential Ord2 Baso ABS# 0.0 K/ul 11/14/2017 Culture Urine [id number] URINE CULTURE SEE NOTES 05/22/2017 Culture Urine [id number] Continued Results 05/22/2017 Urine Culture Ucult Complete >100,000 col/ml aerobic growth sent to ref lab 05/16/2017 Culture Urine [id number] URINE CULTURE SEE NOTES 04/21/2017 Urine Culture [...] 30.9 pg 03/30/2017 Cbc With Differential Ord2 [place]% 13.0 % 03/30/2017 Cbc With Differential Ord2 [...] 1.69 K/ul 03/30/2017 Cbc With Differential Ord2 [place] ABS# 0.9 K/ul 03/30/2017 Cbc With Differential Ord2 Eos ABS# 0.5 K/ul 03/30/2017 Cbc With Differential Ord2 Baso ABS# 0.0 K/ul 03/30/2017 %Hba1C Gqj832 % HbA1c 01913- 6 5.8 % 03/30/2017 %Hba1C Khp137 Gluc Ave 120 mg/dL 03/30/2017 Comp Metabolic Drv626 NA 140 mEq/L 03/30/2017 Comp Metabolic Xgw821 K 4.0 mEq/L 03/30/2017 Comp Metabolic Ugg088 CL 105 mEq/L 03/30/2017 Comp Metabolic Nwi279 CO2 25.0 mEq/L 03/30/2017 Comp Metabolic Kqi141 ANION GAP 14 03/30/2017 Comp Metabolic Rla778 GLUCOSE 108 mg/dL 03/30/2017 Comp Metabolic Xfd551 Creat 1.2 mg/dL 03/30/2017 Comp Metabolic Tin801 eGFR 63 ml/min/1.73m2 03/30/2017 Comp Metabolic Csj313 BUN 20 mg/dL 03/30/2017 Comp Metabolic Dfm150 B/C Ratio 16.9 Ratio 03/30/2017 Comp Metabolic Hls391 CALCIUM 9.2 mg/dL 03/30/2017 Comp Metabolic Skn090 ALK PHOS 83 U/L 03/30/2017 Comp Metabolic Pgh998 AST(SGOT) 17 U/L 03/30/2017 Comp Metabolic Qks063 ALT(SGPT) 19 U/L 03/30/2017 Comp Metabolic Fce484 BILI T 0.3 mg/dL 03/30/2017 Comp Metabolic Kgz968 ALBUMIN 3.9 g/dL 03/30/2017 Comp Metabolic Bkk443 TPRO 7.2 g/dL 03/30/2017 Comp Metabolic Mut467 GLOB 3.3 g/dL 03/30/2017 Comp Metabolic Mly569 A/G Ratio 1.2 Ratio 03/30/2017 Comp Metabolic Cal261 Osmo 283 mOsmo 03/30/2017 Tsh Ord6 TSH (3rd IS) 1.40 uIU/mL 03/30/2017 Clostridium Diff Tox A/B Kel892 Cdiff Positive 06/03/2016 Total Psa PSA 1.53 [...] 31.2 pg 03/20/2015 Cbc With Differential Ord2 [place]% 12.8 % 03/20/2015 Cbc With Differential Ord2 [...] 1.69 K/ul 03/20/2015 Cbc With Differential Ord2 [place] ABS# 0.8 K/ul 03/20/2015 Cbc With Differential Ord2 Eos ABS# 0.6 K/ul 03/20/2015 Cbc With Differential Ord2 Baso ABS# 0.0 K/ul 03/20/2015 Cbc With Differential Ord2 New Analyzer Notice Please note new ref ranges starting 03-04-2015 due to implemntation of new five part differential hematolgy analyzer. 03/20/2015 Total Psa Ord10 PSA 2.25 ng/mL 02/26/2015 Comp Metabolic Kmp283 NA 138 mEq/L 02/26/2015 Comp Metabolic Tfa500 K 4.0 mEq/L 02/26/2015 Comp Metabolic Ayo231 CL 103 mEq/L 02/26/2015 Comp Metabolic Jot128 CO2 28.0 mEq/L 02/26/2015 Comp Metabolic Ync778 ANION GAP 11 02/26/2015 Comp Metabolic Lby252 GLUCOSE 95 mg/dL 02/26/2015 Comp Metabolic Itl755 Creat 1.0 mg/dL 02/26/2015 Comp Metabolic Ycb995 eGFR 74 ml/min/1.73m2 02/26/2015 Comp Metabolic Xqy717 BUN 19 mg/dL 02/26/2015 Comp Metabolic Waf417 B/C Ratio 18.3 Ratio 02/26/2015 Comp Metabolic Kwt318 CALCIUM 9.1 mg/dL 02/26/2015 Comp Metabolic Chx925 ALK PHOS 87 U/L 02/26/2015 Comp Metabolic Fss880 AST(SGOT) 22 U/L 02/26/2015 Comp Metabolic Ynv134 ALT(SGPT) 24 U/L 02/26/2015 Comp Metabolic Ymr837 BILI T 0.4 mg/dL 02/26/2015 Comp Metabolic Sjj658 ALBUMIN 4.0 g/dL 02/26/2015 Comp Metabolic Rbr691 TPRO 7.4 g/dL 02/26/2015 Comp Metabolic Zmx925 GLOB 3.4 g/dL 02/26/2015 Comp Metabolic Tol769 A/G Ratio 1.2 Ratio 02/26/2015 Comp Metabolic Rwa836 Osmo 278 mOsmo 02/26/2015 Culture Urine [id number] URINE CULTURE SEE NOTES 12/15/2014 Culture Urine [id number] Continued Results 12/15/2014 Urine Culture Ucult Complete >100,000 col/ml aerobic growth sent to ref lab 12/12/2014 Comp Metabolic Bow482 NA 136 mEq/L 12/05/2014 Comp Metabolic Vlx919 K 4.3 mEq/L 12/05/2014 Comp Metabolic Byx368 CL 104 mEq/L 12/05/2014 Comp Metabolic Xzr736 CO2 29.0 mEq/L 12/05/2014 Comp Metabolic Lmg083 ANION GAP 7 12/05/2014 Comp Metabolic Liz042 GLUCOSE 80 mg/dL 12/05/2014 Comp Metabolic Dzk491 Creat 1.1 mg/dL 12/05/2014 Comp Metabolic Wdl413 eGFR 68 ml/min/1.73m2 12/05/2014 Comp Metabolic Edy381 BUN 21 mg/dL 12/05/2014 Comp Metabolic Zzo487 B/C Ratio 18.8 Ratio 12/05/2014 Comp Metabolic Yfq087 CALCIUM 9.3 mg/dL 12/05/2014 Comp Metabolic Oxo076 ALK PHOS 81 U/L 12/05/2014 Comp Metabolic Nue258 AST(SGOT) 17 U/L 12/05/2014 Comp Metabolic Brl103 ALT(SGPT) 16 U/L 12/05/2014 Comp Metabolic Jxz520 BILI T 0.3 mg/dL 12/05/2014 Comp Metabolic Ghg277 ALBUMIN 4.0 g/dL 12/05/2014 Comp Metabolic Exb755 TPRO 6.9 g/dL 12/05/2014 Comp Metabolic Hpg906 GLOB 2.9 g/dL 12/05/2014 Comp Metabolic Ypa690 A/G Ratio 1.4 Ratio 12/05/2014 Comp Metabolic Ich169 Osmo 274 mOsmo 12/05/2014 Cbc With Differential [...] Ord2 RDW 15.0 % 12/05/2014 Culture Urine [id number] URINE CULTURE SEE NOTES 11/27/2014 Culture Urine [id number] Continued Results 11/27/2014 Urine Culture Ucult Complete Growth of aerobe sent to ref lab 11/25/2014 B Type Natriuretic Peptide Gid7104 B-PROCUREMENT INTERNSHIP 121.00 pg/ml 10/08/2014 Cbc With Differential Ord2 [...] Folate Ord36 Folate 22.12 ng/mL 10/08/2014 B12 Vxu273 B12 >1500.00 pg/ml 10/08/2014 Comp Metabolic Bqn467 NA 135 mEq/L 10/08/2014 Comp Metabolic Bth476 K 4.5 mEq/L 10/08/2014 Comp Metabolic Oqn910 CL 104 mEq/L 10/08/2014 Comp Metabolic Emn977 CO2 25.0 mEq/L 10/08/2014 Comp Metabolic Kum421 ANION GAP 11 10/08/2014 Comp Metabolic Hqb226 GLUCOSE 73 mg/dL 10/08/2014 Comp Metabolic Uzg840 Creat 1.1 mg/dL 10/08/2014 Comp Metabolic Ogj477 eGFR 71 ml/min/1.73m2 10/08/2014 Comp Metabolic Asj472 BUN 21 mg/dL 10/08/2014 Comp Metabolic Ouk550 B/C Ratio 19.4 Ratio 10/08/2014 Comp Metabolic Vhp830 CALCIUM 9.0 mg/dL 10/08/2014 Comp Metabolic Hln051 ALK PHOS 73 U/L 10/08/2014 Comp Metabolic Qzp307 AST(SGOT) 15 U/L 10/08/2014 Comp Metabolic Zic783 ALT(SGPT) 14 U/L 10/08/2014 Comp Metabolic Ksh136 BILI T 0.4 mg/dL 10/08/2014 Comp Metabolic Sfs582 ALBUMIN 4.2 g/dL 10/08/2014 Comp Metabolic Hyp500 TPRO 7.1 g/dL 10/08/2014 Comp Metabolic Crp722 GLOB 2.9 g/dL 10/08/2014 Comp Metabolic Trb421 A/G Ratio 1.4 Ratio 10/08/2014 Comp Metabolic Vsv779 Osmo 272 mOsmo 10/08/2014 B12 Zre478 B12 554.00 pg/ml 09/16/2014 Tibc Ord40 Iron 108 ug/dl 09/16/2014 Tibc Ord40 UIBC 281 ug/dL 09/16/2014 Tibc Ord40 TIBC 389 ug/dL 09/16/2014 Tibc Ord40 Fe-%Sat 27.8 % 09/16/2014 Folate Ord36 Folate >23.20 ng/mL 09/16/2014 Comp Metabolic Kyz013 NA 134 mEq/L 09/16/2014 Comp Metabolic Drh511 K 4.6 mEq/L 09/16/2014 Comp Metabolic Jpx881 CL 103 mEq/L 09/16/2014 Comp Metabolic Bbt984 CO2 25.0 mEq/L 09/16/2014 Comp Metabolic Erw209 ANION GAP 11 09/16/2014 Comp Metabolic Jhc639 GLUCOSE 93 mg/dL 09/16/2014 Comp Metabolic Ouq044 Creat 1.2 mg/dL 09/16/2014 Comp Metabolic Qhu604 eGFR 65 ml/min/1.73m2 09/16/2014 Comp Metabolic Pxz010 BUN 23 mg/dL 09/16/2014 Comp Metabolic Pax294 B/C Ratio 19.8 Ratio 09/16/2014 Comp Metabolic Mdd601 CALCIUM 9.1 mg/dL 09/16/2014 Comp Metabolic Cwn165 ALK PHOS 73 U/L 09/16/2014 Comp Metabolic Tcw666 AST(SGOT) 18 U/L 09/16/2014 Comp Metabolic Zlk268 ALT(SGPT) 16 U/L 09/16/2014 Comp Metabolic Dfh877 BILI T 0.4 mg/dL 09/16/2014 Comp Metabolic Gpd726 ALBUMIN 4.0 g/dL 09/16/2014 Comp Metabolic Xvw546 TPRO 7.1 g/dL 09/16/2014 Comp Metabolic Pxx598 GLOB 3.1 g/dL 09/16/2014 Comp Metabolic Idn343 A/G Ratio 1.3 Ratio 09/16/2014 Comp Metabolic Kly373 Osmo 272 mOsmo 09/16/2014 Cbc With Differential [...] Ord22 FERRITIN 36.2 ng/mL 09/16/2014 Culture Urine [id number] URINE CULTURE SEE NOTES 09/08/2014 Urine Culture [...] Ord2 RDW 17.8 % 09/05/2014 Comp Metabolic Zvw347 NA 133 mEq/L 09/05/2014 Comp Metabolic Spj654 K 4.9 mEq/L 09/05/2014 Comp Metabolic Nok359 CL 99 mEq/L 09/05/2014 Comp Metabolic Mfi183 CO2 26.0 mEq/L 09/05/2014 Comp Metabolic Mlx201 ANION GAP 13 09/05/2014 Comp Metabolic Kyx235 GLUCOSE 83 mg/dL 09/05/2014 Comp Metabolic Snd198 Creat 1.5 mg/dL 09/05/2014 Comp Metabolic Rov471 eGFR 47 ml/min/1.73m2 09/05/2014 Comp Metabolic Yyw620 BUN 28 mg/dL 09/05/2014 Comp Metabolic Lzb763 B/C Ratio 18.3 Ratio 09/05/2014 Comp Metabolic Bth353 CALCIUM 8.9 mg/dL 09/05/2014 Comp Metabolic Qfw262 ALK PHOS 71 U/L 09/05/2014 Comp Metabolic Zcq604 AST(SGOT) 18 U/L 09/05/2014 Comp Metabolic Myg185 ALT(SGPT) 29 U/L 09/05/2014 Comp Metabolic Bvl149 BILI T 0.6 mg/dL 09/05/2014 Comp Metabolic Olc268 ALBUMIN 3.8 g/dL 09/05/2014 Comp Metabolic Xeb497 TPRO 6.7 g/dL 09/05/2014 Comp Metabolic Kvc814 GLOB 2.9 g/dL 09/05/2014 Comp Metabolic Fyj415 A/G Ratio 1.3 Ratio 09/05/2014 Comp Metabolic Lru643 Osmo 271 mOsmo 09/05/2014 Total Psa Ord10 [...] Procedure Codes Date THER/PROPH/DIAG INJ SC/IM CPT-4: 75709 05/22/2018 ROCEPHIN, PER 250 MG CPT- 4: J0696 05/22/2018 THER/PROPH/DIAG INJ SC/IM CPT-4: 06961 04/20/2018 TRIAMCINOLONE ACET INJ NOS CPT-4: J3301 04/20/2018 URINALYSIS NONAUTO W/O SCOPE CPT-4: 88344 12/14/2017 URINALYSIS NONAUTO W/O SCOPE CPT-4: 30828 05/15/2017 URINALYSIS NONAUTO W/O SCOPE CPT-4: 30245 09/18/2015 ADMIN INFLUENZA VIRUS VAC CPT-4: G0008 12/31/2014 FLU VACC PRSV FREE INC ANTIG Formatting Model/CDA Sections, Assigned to/[place] CPT-4: 76159Qnbvhiv 12/31/2014 URINALYSIS NONAUTO W/O SCOPE CPT-4: 16138 12/10/2014 URINALYSIS NONAUTO W/O SCOPE CPT-4: 69218 11/24/2014 ROCEPHIN, PER 250 MG CPT- 4: J0696 09/05/2014 THER/PROPH/DIAG INJ SC/IM CPT-4: 24781 09/05/2014 URINALYSIS NONAUTO W/O SCOPE CPT-4: 01458 09/04/2014 Vital Signs Date Vital 05/25/2018 Blood [...] 1: 138/60 Code: 8480-6 BMI: 37.2 Code: 39866-2 Heart Rate 1: 79 bpm Height: 5'9" SpO2: 91% Weight: 252 lbs 07/01/2016 Blood Pressure 1: 138/68 Code: 8480-6 BMI: 37.2 Code: 77359-2 Heart Rate 1: 69 bpm Height: 5'9" SpO2: 93% Weight: 252 lbs 05/05/2016 Blood Pressure 1: 136/78 Code: 8480-6 BMI: 39.3 Code: 56149-2 Heart Rate 1: 72 bpm Height: 5'9" SpO2: 97% Weight: 266 lbs 02/23/2016 Blood Pressure 1: 145/70 Code: 8480-6 BMI: 37.5 Code: 94417-9 Heart Rate 1: 80 bpm Height: 5'9" Weight: 254 lbs 09/16/2015 Blood Pressure 1: 140/62 Code: 8480-6 Heart Rate 1: 77 bpm Height: 5'9" SpO2: 93% Weight: 07/24/2015 Blood Pressure 1: 152/68 Code: 8480-6 BMI: 37.7 Code: 46395-2 Heart Rate 1: 73 bpm Height: 5'9" SpO2: 97% Weight: 255 lbs 03/20/2015 Blood Pressure 1: 146/74 Code: 8480-6 BMI: 38.1 Code: 44773-0 Heart Rate 1: 63 bpm Height: 5'9" Weight: 258 lbs 01/13/2015 Blood Pressure 1: 120/58 Code: 8480-6 Heart Rate 1: 52 bpm Height: 5'9" SpO2: 97% Temperature: 37.1 (C) / 98.7 (F) Weight: 12/05/2014 Blood Pressure 1: 134/54 Code: 8480-6 BMI: 36.3 Code: 66373-8 Heart Rate 1: 76 bpm Height: 5'9" SpO2: 93% Weight: 246 lbs 10/03/2014 Blood Pressure 1: 132/60 Code: 8480-6 Heart Rate 1: 76 bpm Height: SpO2: 95% Weight: 254 lbs 09/15/2014 Blood Pressure 1: 120/68 Code: 8480-6 BMI: 37.5 Code: 80571-4 Heart Rate 1: 76 bpm Height: 5'9" SpO2: 93% Weight: 254 lbs 09/05/2014 Blood Pressure 1: 110/50 Code: 8480-6 BMI: 37.4 Code: 48689-2 Heart Rate 1: 79 bpm Height: 5'9" SpO2: 96% Temperature: 36.3 (C) / 97.4 (F) Weight: 253 lbs 07/04/2014 Blood Pressure 1: 138/72 Code: 8480-6 BMI: 37.1 Code: 07386-8 Heart Rate 1: 72 bpm Height: 5'9" [...] discomfort 12/05/2014 occasional ache in chest- seeing head stock operator in [place]- doing heart cath in [...] discomfort 10/03/2014 occasional ache in chest- seeing head stock operator in [place]- doing heart cath in [...] Performer Location Codes Date EST. 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 PATIENT, LEVEL III Diagnosis: Acute on chronic combined systolic (congestive) and diastolic (congestive) heart failure[ICD10: I50.43] Diagnosis: Pneumonia due to other specified bacteria[ICD10: J15.8] Mary Aburto MD, [facility] CPT-4: 13873 05/22/2018 79550 EST. PATIENT, LEVEL III Diagnosis: Other acute sinusitis[ICD10: J01.80] Diagnosis: Other allergic rhinitis[ICD10: J30.89] Diagnosis: Cough[ICD10: R05] Mary Aburto MD, [facility] CPT-4: 92195 04/20/2018 ([id number]) 77673 EST. PATIENT, LEVEL IV Diagnosis: Essential (primary) hypertension[ICD10: I10] Diagnosis: Other iron deficiency anemias[ICD10: D50.8] Diagnosis: Weakness[ICD10: R53.1] Darleen Aburto MD, [facility] CPT-4: 35298 11/14/2017 20957 EST. PATIENT, LEVEL IV Diagnosis: Other lesions of oral mucosa[ICD10: K13.79] Diagnosis: Candidal stomatitis[ICD10: B37.0] Diagnosis: Generalized anxiety disorder[ICD10: F41.1] Diagnosis: Major depressive disorder, single episode, moderate[ICD10: F32.1] Mary Aburto MD, [facility] CPT-4: 39260 08/15/2017 69933 EST. PATIENT, LEVEL III Diagnosis: Generalized anxiety disorder[ICD10: F41.1] Diagnosis: Cauda equina syndrome[ICD10: G83.4] Diagnosis: Major depressive disorder, single episode, moderate[ICD10: F32.1] Mary Aburto MD, [facility] CPT-4: 12274 06/29/2017 87845 EST. PATIENT, LEVEL IV Diagnosis: Dysuria[ICD10: R30.0] Diagnosis: Other malaise[ICD10: R53.81] Diagnosis: Cauda equina syndrome[ICD10: G83.4] Diagnosis: Weakness[ICD10: R53.1] Mary Aburto MD, [facility] CPT-4: 03289 03/30/2017 ([id number]) 50081 EST. PATIENT, LEVEL III Diagnosis: Cough[ICD10: R05] Diagnosis: Enterocolitis due to Clostridium difficile[ICD10: A04.7] Kavya Aburto MD, [facility] CPT-4: 67330 10/07/2016 ([id number]) 24200 EST. 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 PATIENT, LEVEL III Diagnosis: Cauda equina syndrome[ICD10: G83.4] Diagnosis: Irritable bowel syndrome with diarrhea[ICD10: K58.0] Mary Aubrto MD, [facility] CPT-4: 50041 05/05/2016 90422 EST. PATIENT, LEVEL III Diagnosis: Pain in right shoulder[ICD10: M25.511] Diagnosis: Weakness[ICD10: R53.1] Diagnosis: Shortness of breath[ICD10: R06.02] Mary Aburto MD, [facility] CPT-4: 82775 02/23/2016 29054 EST. PATIENT, LEVEL III Diagnosis: Essential (primary) hypertension[ICD10: I10] Diagnosis: Other insomnia[ICD10: G47.09] Diagnosis: Irritable bowel syndrome with diarrhea[ICD10: K58.0] Diagnosis: Shortness of breath[ICD10: R06.02] Diagnosis: Weakness[ICD10: R53.1] Mary Aburto MD, [facility] CPT-4: 11581 09/16/2015 77511 EST. PATIENT, LEVEL III Diagnosis: Diarrhea, unspecified[ICD10: R19.7] Diagnosis: Nausea[ICD10: R11.0] Mary Aburto MD, [facility] CPT-4: 40134 07/24/2015 51494 EST. PATIENT, LEVEL IV Diagnosis: Other iron deficiency anemias[ICD10: D50.8] Diagnosis: Rash and other nonspecific skin eruption[ICD10: R21] Diagnosis: Cauda equina syndrome[ICD10: G83.4] Diagnosis: Essential (primary) hypertension[ICD10: I10] Diagnosis: Other pruritus[ICD10: L29.8] Diagnosis: Shortness of breath[ICD10: R06.02] Mary Aburto MD, [facility] CPT-4: 46991 03/20/2015 07627 EST. PATIENT, LEVEL IV Diagnosis: Urinary tract infection, site not specified[ICD10: N39.0] Diagnosis: Umbilical hernia without obstruction or gangrene[ICD10: K42.9] Diagnosis: Cauda equina syndrome[ICD10: G83.4] Mary Aburto MD, [facility] CPT- 4: 79889 01/13/2015 ([id number]) 47834 EST. PATIENT, LEVEL IV Diagnosis: Iron deficiency anemia, unspecified[ICD10: D50.9] Diagnosis: Essential (primary) hypertension[ICD10: I10] Diagnosis: Hematuria, unspecified[ICD10: R31.9] Kavya Aburto MD, [facility] CPT-4: 36473 12/05/2014 ([id number]) 03551 EST. PATIENT, LEVEL IV Diagnosis: ESSENTIAL HYPERTENSION[ICD9: 401.9] Diagnosis: COPD (chronic obstructive pulmonary disease)[ICD9: 496] Diagnosis: ANEMIA[ICD9: 285.9] Diagnosis: SHORTNESS OF BREATH[ICD9: 786.05] Kavya Aburto MD, [facility] CPT- 4: 46856 10/03/2014 ([id number]) 57609 EST. PATIENT, LEVEL IV Diagnosis: ESSENTIAL HYPERTENSION[ICD9: 401.9] Diagnosis: ANEMIA[ICD9: 285.9] Diagnosis: MALAISE AND FATIGUE[ICD9: 780.79] Darleen Aburto MD, [facility] CPT- 4: 99812 09/15/2014 ([id number]) 40302 EST. PATIENT, LEVEL III Diagnosis: UTI[ICD9: 599.0] Diagnosis: Chronic back pain[ICD9: 724.5] Kavya Aburto MD, [facility] CPT-4: 57673 09/05/2014 ([id number]) OFFICE VISIT, NEW - LEVEL 4 Diagnosis: ESSENTIAL HYPERTENSION[ICD9: 401.9] Diagnosis: THRUSH[ICD9: 112.0] Diagnosis: Hyperlipidemia[ICD9: 272.4] Diagnosis: COPD (chronic obstructive pulmonary disease)[ICD9: 496] Diagnosis: Cauda equina syndrome[ICD9: 344.60] Diagnosis: History of prostate cancer[ICD9: V10.46] Kavya Aburto MD, [facility] CPT-4: 77133 07/04/2014 Plan of Care Planned Activity Notes [...] at home. 05/25/2018 Appointment: Mary Alan WPtel: [address] [place], [place] [phone] (30 min) [facility] 05/25/2018 Patient Education: Patient Medication Summary Completed [...] home O2. 05/22/2018 Appointment: Mary Alan WPtel: [facility]9 [facility] (30 min) Complex 05/22/2018 Patient Education: [...] spray. 04/20/2018 Appointment: Mary Alan WPtel: [phone] [facility] (15 min) Moderate 04/20/2018 Patient Education: Patient Medication Summary Completed 04/20/2018 Appointment: Lab Draw 12/14/2017 Patient Education: Patient Medication Summary Completed 12/14/2017 Appointment: Darleen Aburto WPtel: [phone] [facility] (15 min) Moderate 11/28/2017 Visit Plan: Hypertension [...] culture report. 11/14/2017 App[facility]ment: [phone] (15 min) Moderate 11/14/2017 Patient Education: Patient [...] this patient. 08/15/2017 Appointment: Mary Alan WPtel: [facility]5 [facility] (30 min) Complex 08/15/2017 Patient Education: Patient Medication Summary Completed 08/15/2017 Appointment: Mary Alan WPtel: [facility] (15 min) Moderate 08/08/2017 Appointment: Mary Alan WPtel: [address] [place], [place] [phone] (15 min) Moderate 08/03/2017 Visit Plan: [...] pain symptoms. 06/29/2017 Appointment: Mary Alan WPtel: [address] [place], [place] [phone] (15 min) Moderate 06/29/2017 Patient Education: Patient [...] not improve. 03/30/2017 Appointment: Mary Alan WPtel: [facility] ([facility] min) Complex 03/30/2017 Patient Education: Patient Medication Summary Completed 03/30/2017 Visit Plan: Cough-suspect virus-patient to monitor over the weekend-call Monday if symptoms persist and we will do a chest xray and sputum culture Cdiff-treat with flagyl as directed-call if symptoms do not resolve 10/07/2016 Appointment: Kavya Subramanian [facility]Ptel[phone] [phone] (30 min) Complex 10/07/2016 Patient Education: Patient Medication Summary Completed 10/07/2016 Patient Education: Obesity Completed 10/07/2016 Visit Plan: Cauda equina-chronic back pain-generalized weakness- right shoulder pain/weakness-patient to contact [facility] [place] for mobility paperwork-will ask PT to do a mobility exam through [facility] Drug induced constipation-rx for movantik. 07/01/2016 Visit Plan: Cauda equina-chronic back pain-generalized weakness- bilateral shoulder pain/weakness-OA knees-patient to contact [facility] [place] for mobility paperwork-will ask PT to do a mobility exam through [facility] [employer]. Patient is non ambulatory due to cauda [...] for movantik. 07/01/2016 Appointment: Kavya Subramanian WPtel: [facility]5 [phone] (30 min) Complex 07/01/2016 Patient Education: Patient [...] his surgery. 05/05/2016 Appointment: Mary Alan WPtel: [facility] [place] Surgical Clearance 05/05/2016 Patient Education: Patient Medication [...] Juan godoy. 02/23/2016 Appointment: Mary Alan WPtel: [facility]5 [facility] (30 min) Complex 02/23/2016 Patient Education: Patient Medication Summary Completed 02/23/2016 Appointment: Mary Alan WPtel: [facility] (30 min) Complex 02/19/2016 Appointment: Darleen Aburto WPtel: [facility] (15 min) Moderate 10/14/2015 Appointment: Lab Draw [...] having loose bowel movements. Keep appointment with Dynamotor Repairer Make an appointment with head stock operator - to follow up on shortness of breath. Weakness - pt is to contact Juan Susi Godoy in [facility] Call clinic when he is [...] not improved. 07/24/2015 Appointment: Kavya Subramanian WPtel: [address] [place], [place] [phone] (30 min) Complex 07/24/2015 Patient Education: Patient [...] and hypertension. 09/15/2014 Appointment: Darleen Aburto WPtel: [facility] (15 min) Moderate 09/15/2014 Patient Education: [...] equina-increased incontinence of bowels-recommend follow up with provisioning specialist-will discuss repeat MRI with Dr Aburto-keep [...] do PT evaluation for motorized wheelchair through [employer] . Cauda equina-chronic back pain-generalized weakness-right shoulder pain/weakness- patient to contact [employer] for mobility paperwork-will ask PT to do a mobility exam through [employer] induced constipation-rx for [employer]ik. [employer] [facility] to do PT evaluation for motorized wheelchair through [employer] . Cauda equina-chronic back pain-generalized weakness-bilateral shoulder pain/weakness- OA knees-patient to contact [employer] for mobility paperwork-will ask PT to do a mobility exam through [employer]. Patient is non ambulatory due to cauda [...] incontinence of bowels- recommend follow up with provisioning specialist-will discuss repeat MRI with Dr Aburto-keep [...] (start tomorrow) let us know what your head stock operator says at your appointment chest x-ray [...] - will have pt contact [facility]. . Cauda Equina, weakness, gait instability - [...] Peng 4. Make an appointment with your head stock operator - to follow up on shortness of breath. 5. Call us when you here about the mobility paperwork and we will fill out the paperwork. [facility] . Hypertension - The patient has [...] having loose bowel movements. Keep appointment with Dynamotor Repairer Make an appointment with head stock operator - to follow up on shortness of breath. Weakness - pt is to contact [place] in [facility] when he is [...] 2 pills daily. Will consult Tiffany Bullard Alleman PT. Cauda Equina - stable - continue [...]
--- OUTSIDE RECORDS SUMMARY | 2018-07-19 09:19 | XMS REPORT | CCD ---
Author Author Kavya Subramanian Organization [facility] Address [address] [place] [address] Phone Care Team Providers Care Podiatric Physician Name Role Phone PP Unavailable CCM Unavailable Summary Purpose Interface Exchange Insurance Providers Payer name Policy type / Coverage type Covered alliance party ID Effective Begin Date Effective End Date WPS Medicare Part B Commercial Insurance [id number] Unknown Unknown [employer]ALTH[employer]ICE Commercial Insurance [id number] Unknown Unknown Family history Father Diagnosis Age At Onset Coronary Artery Disease Unknown Mother Diagnosis Age At Onset Arthritis Unknown Sister Diagnosis Age At Onset Alzheimer's Disease Unknown Social History Social History Element Codes Description Effective Dates Marital status Unknown 07/04/2014 Number of children Unknown 2 07/04/2014 Living arrangements Unknown House 07/04/[address]: 0625037 Quit over 10 years ago 07/04/2014 Alcohol history Unknown occasionally drinks alcohol 07/04/2014 Frequency of drinks SNOMED CT: 190831484 Drinks rarely 07/04/2014 Allergies, Adverse Reactions, Alerts Substance Reaction Codes Entered Date Inactivated Date Status * NO KNOWN FOOD ALLERGIES Unknown 07/04/2014 No Inactive Date Active Iodine rash, pruritis, RxNorm: 5933 03/04/2015 No Inactive Date Active tramadol pruritis RxNorm: 73045 07/04/2014 No Inactive Date Active Past Medical [...] Fill Instructions cefdinir 300 mg capsule RxNorm: 941119 1 Capsule(s) PO BID 05/22/2018 05/31/2018 Active Zithromax Z-Win 250 mg tablet RxNorm: 238542 Tablet(s) PO UD 05/22/2018 No Stop Date Active albuterol sulfate 2.5 mg/3 mL (0.083 %) solution for nebulization RxNorm: 847201 3 Milliliter(s) INH UD 05/22/2018 No Stop Date Active ceftriaxone 500 mg solution for injection RxNorm: 4654662 2 Milliliter(s) Inj 05/22/2018 05/22/2018 Inactive diclofenac sodium 75 mg tablet,delayed release RxNorm: 870920 1 TABLET(S) PO BID 05/14/2018 02/07/2019 Active gabapentin 600 mg tablet RxNorm: 654785 TABLET(S) TAKE 1 TABLET BY MOUTH TWICE DAILY 04/23/2018 04/17/2019 Active prednisone 20 mg tablet RxNorm: 411997 2 Tablet(s) PO daily 04/20/2018 04/24/2018 Inactive Kenalog 40 mg/mL suspension for injection RxNorm: 5019853 Milliliter(s) Inj 04/20/2018 04/20/2018 Inactive Augmentin 500 mg-125 mg tablet RxNorm: 948976 1 Tablet(s) PO TID 04/20/2018 04/26/2018 Inactive oxycodone 5 mg tablet RxNorm: 2349920 4 Tablet(s) PO daily 04/12/2018 06/25/2018 Active potassium chloride ER 20 mEq tablet,extended release RxNorm: 574645 1 TABLET(S) PO DAILY 03/09/2018 03/03/2019 Active oxycodone 5 mg tablet RxNorm: 6275988 4 Tablet(s) PO daily 01/18/2018 04/02/2018 Inactive Augmentin 500 mg-125 mg tablet RxNorm: 938833 1 Tablet(s) PO TID 12/14/2017 12/23/2017 Inactive take probiotic bid x 10 days pantoprazole 40 mg tablet,delayed release RxNorm: 166635 TAKE 1 TABLET BY MOUTH DAILY 12/11/2017 12/05/2018 Active Augmentin 500 mg-125 mg tablet RxNorm: 401544 1 Tablet(s) PO TID 11/17/2017 11/22/2017 Inactive take probiotic bid x 7 days lisinopril 40 mg tablet RxNorm: 789928 TAKE 1 TABLET BY MOUTH DAILY 11/06/2017 08/02/2018 Active oxycodone 5 mg tablet RxNorm: 9021849 4 Tablet(s) PO daily 10/16/2017 12/29/2017 Inactive Cymbalta 30 mg capsule,delayed release RxNorm: 678343 2 Capsule(s) PO daily 08/17/2017 02/12/2018 Inactive Zoloft 25 mg tablet RxNorm: 988416 1 TABLET(S) PO DAILY X 5 DAYS THEN INCREASE TO 50MG DAILY 08/16/2017 No Stop Date Active Cymbalta 30 mg capsule,delayed release RxNorm: 935875 1 Capsule(s) PO 1 CAPSULE(S) PO DAILY X 1 WEEK, THEN INCREASE TO 2 DAILY 08/15/2017 08/16/2017 Inactive Patient requests 90 days supply diclofenac sodium 75 mg tablet,delayed release RxNorm: 083702 1 TABLET(S) PO BID 08/14/2017 05/10/2018 Inactive oxycodone 5 mg tablet RxNorm: 1365636 4 Tablet(s) PO daily 08/01/2017 10/14/2017 Inactive valacyclovir 1 gram tablet RxNorm: 046584 1 Tablet(s) PO TID 07/12/2017 07/11/2017 Inactive Zoloft 50 mg tablet RxNorm: 654888 1 Tablet(s) PO daily 07/12/2017 08/01/2017 Inactive valacyclovir 1 gram tablet RxNorm: 271831 1 Tablet(s) PO TID 07/12/2017 07/18/2017 Inactive Zoloft 50 mg tablet RxNorm: 046522 1 Tablet(s) PO daily 07/12/2017 07/11/2017 Inactive Zoloft 25 mg tablet RxNorm: 707829 1 Tablet(s) PO daily x 5 days then increase to 50mg daily 07/11/2017 07/11/2017 Inactive Cymbalta 30 mg capsule,delayed release RxNorm: 844787 1 Capsule(s) PO daily x 1 week, then increase to 2 daily 06/30/2017 06/29/2017 Inactive Cymbalta 30 mg capsule,delayed release RxNorm: 546347 1 CAPSULE(S) PO DAILY X 1 WEEK, THEN INCREASE TO 2 DAILY 06/30/2017 07/04/2017 Inactive Patient requests 90 days supply Augmentin 875 mg-125 mg tablet RxNorm: 918707 1 Tablet(s) PO BID 05/22/2017 05/28/2017 Inactive Probiotic QID while on antibiotics Bactrim DS 800 mg-160 mg tablet RxNorm: 246792 1 Tablet(s) PO BID 05/22/2017 05/21/2017 Inactive Probiotic QID while on antibiotics Bactrim DS 800 mg-160 mg tablet RxNorm: 112611 1 Tablet(s) PO BID 05/22/2017 05/28/2017 Inactive Probiotic QID while on antibiotics Augmentin 875 mg-125 mg tablet RxNorm: 954279 1 Tablet(s) PO BID 05/22/2017 05/21/2017 Inactive Probiotic QID while on antibiotics Cipro 500 mg tablet RxNorm: 419324 1 Tablet(s) PO BID 04/21/2017 04/30/2017 Inactive Take probiotic while on ABT Cipro 500 mg tablet RxNorm: 127991 1 Tablet(s) PO BID 04/21/2017 04/20/2017 Inactive Diflucan 150 mg tablet RxNorm: 795139 1 Tablet(s) PO daily 04/19/2017 11/13/2017 Inactive Diflucan 150 mg tablet RxNorm: 927156 1 Tablet(s) PO daily 04/19/2017 04/18/2017 Inactive oxycodone 5 mg tablet RxNorm: 3796541 4 Tablet(s) PO daily 04/17/2017 06/30/2017 Inactive gabapentin 600 mg tablet RxNorm: 271314 TABLET(S) TAKE 1 TABLET BY MOUTH TWICE DAILY 04/14/2017 04/08/2018 Inactive Rocephin 1 gram solution for injection RxNorm: 356471 1 Inj daily 04/05/2017 04/11/2017 Inactive Rocephin 1 gram solution for injection RxNorm: 189495 1 Inj daily 04/04/2017 04/04/2017 Inactive lidocaine (PF) 10 mg/mL (1 %) injection solution RxNorm: 1435718 1 Milliliter(s) Inj daily 04/04/2017 04/10/2017 Inactive Use to administer rocephin lidocaine (PF) 10 mg/mL (1 %) injection solution RxNorm: 1764268 1 Milliliter(s) Inj daily 04/04/2017 04/03/2017 Inactive Use to administer rocephin Rocephin 1 gram solution for injection RxNorm: 589972 1 Inj daily 04/04/2017 04/03/2017 Inactive Augmentin 500 mg-125 mg tablet RxNorm: 743294 1 Tablet(s) PO TID 03/31/2017 04/03/2017 Inactive Augmentin 500 mg-125 mg tablet RxNorm: 421044 1 Tablet(s) PO TID 03/31/2017 03/30/2017 Inactive Effexor XR 75 mg capsule,extended release RxNorm: 016700 TAKE 3 CAPSULES BY MOUTH EVERY MORNING 03/24/2017 11/13/2017 Inactive potassium chloride ER 20 mEq tablet,extended release RxNorm: 116035 1 TABLET(S) PO DAILY 03/13/2017 03/07/2018 Inactive lisinopril 40 mg tablet RxNorm: 817233 TAKE 1 TABLET BY MOUTH DAILY 02/06/2017 11/02/2017 Inactive pantoprazole 40 mg tablet,delayed release RxNorm: 288685 TAKE 1 TABLET BY MOUTH DAILY 12/19/2016 12/10/2017 Inactive oxycodone 5 mg tablet RxNorm: 7157693 4 Tablet(s) PO daily 12/19/2016 03/03/2017 Inactive diclofenac sodium 75 mg tablet,delayed release RxNorm: 577929 1 TABLET(S) PO BID 11/17/2016 08/13/2017 Inactive gabapentin 600 mg tablet RxNorm: 557199 TABLET(S) TAKE 1 TABLET BY MOUTH TWICE DAILY 10/14/2016 04/11/2017 Inactive Flagyl 500 mg tablet RxNorm: 707369 1 Tablet(s) PO TID 10/07/2016 10/16/2016 Inactive oxycodone 5 mg tablet RxNorm: 3232191 4 Tablet(s) PO daily 10/03/2016 12/16/2016 Inactive Effexor XR 75 mg capsule,extended release RxNorm: 104709 TAKE 3 CAPSULES BY MOUTH EVERY MORNING 09/22/2016 11/20/2016 Inactive Patient requests 90 days supply lisinopril 40 mg tablet RxNorm: 758469 TAKE 1 TABLET BY MOUTH DAILY 08/01/2016 01/27/2017 Inactive Effexor XR 75 mg capsule,extended release RxNorm: 326236 TAKE 3 CAPSULES BY MOUTH EVERY MORNING 07/21/2016 09/21/2016 Inactive oxycodone 5 mg tablet RxNorm: 3617490 4 Tablet(s) PO daily 07/11/2016 09/23/2016 Inactive Movantik 25 mg tablet RxNorm: 1457459 1 Tablet(s) PO daily 07/01/2016 11/13/2017 Inactive potassium chloride ER 20 mEq tablet,extended release RxNorm: 043861 1 TABLET(S) PO DAILY 06/14/2016 03/10/2017 Inactive Flagyl 500 mg tablet RxNorm: 360926 1 Tablet(s) PO TID 06/03/2016 06/12/2016 Inactive Flagyl 500 mg tablet RxNorm: 998118 1 Tablet(s) PO TID 06/03/2016 06/02/2016 Inactive oxycodone 5 mg tablet RxNorm: 9786126 4 Tablet(s) PO daily 04/27/2016 07/10/2016 Inactive Tamiflu 75 mg capsule RxNorm: 737752 1 Capsule(s) PO daily 04/19/2016 04/28/2016 Inactive Tamiflu 75 mg capsule RxNorm: 736692 1 Capsule(s) PO daily 04/19/2016 04/18/2016 Inactive Effexor XR 75 mg capsule,extended release RxNorm: 803085 TAKE 3 CAPSULES BY MOUTH EVERY MORNING 02/18/2016 04/17/2016 Inactive diclofenac sodium 75 mg tablet,delayed release RxNorm: 685697 1 TABLET(S) PO BID 02/18/2016 11/13/2016 Inactive Effexor XR 75 mg capsule,extended release RxNorm: 852533 Capsule(s) TAKE 3 CAPSULES BY MOUTH EVERY MORNING 02/17/2016 08/14/2016 Inactive oxycodone 5 mg tablet RxNorm: 7126520 4 Tablet(s) PO daily 02/04/2016 04/26/2016 Inactive clopidogrel 75 mg tablet RxNorm: 410818 1 TABLET(S) PO QAM 02/01/2016 01/25/2017 Inactive gabapentin 600 mg tablet RxNorm: 020869 Tablet(s) TAKE 1 TABLET BY MOUTH TWICE DAILY 02/01/2016 10/13/2016 Inactive Effexor XR 75 mg capsule,extended release RxNorm: 273567 TAKE 3 CAPSULES BY MOUTH EVERY MORNING 01/11/2016 02/09/2016 Inactive pantoprazole 40 mg tablet,delayed release RxNorm: 657868 TAKE 1 TABLET BY MOUTH DAILY 12/22/2015 12/15/2016 Inactive Effexor XR 75 mg capsule,extended release RxNorm: 490924 TAKE 3 CAPSULES BY MOUTH EVERY MORNING 11/16/2015 01/14/2016 Inactive lisinopril 40 mg tablet RxNorm: 981574 TAKE 1 TABLET BY MOUTH DAILY 11/05/2015 07/31/2016 Inactive Effexor XR 75 mg capsule,extended release RxNorm: 595038 TAKE 3 CAPSULES BY MOUTH EVERY MORNING 09/22/2015 11/20/2015 Inactive Augmentin 500 mg-125 mg tablet RxNorm: 201898 1 Tablet(s) PO TID 09/18/2015 09/24/2015 Inactive Anoro Ellipta 62.5 mcg-25 mcg/actuation powder for inhalation RxNorm: 0426136 1 INH daily 08/20/2015 02/15/2016 Inactive Anoro Ellipta 62.5 mcg-25 mcg/actuation powder for inhalation RxNorm: 7004632 1 INH DAILY 08/20/2015 11/13/2017 Inactive lisinopril 40 mg tablet RxNorm: 966341 TAKE 1 TABLET BY MOUTH DAILY 08/10/2015 11/04/2015 Inactive gabapentin 600 mg tablet RxNorm: 450825 TAKE 1 TABLET BY MOUTH TWICE DAILY 08/10/2015 01/31/2016 Inactive terazosin 2 mg capsule RxNorm: 901715 TAKE ONE CAPSULE BY MOUTH EVERY DAY 07/27/2015 08/29/2016 Inactive hyoscyamine 0.125 mg sublingual tablet RxNorm: 7508163 1 Tablet(s) SL TID as needed 07/24/2015 08/02/2015 Inactive metronidazole 500 mg tablet RxNorm: 079014 1 Tablet(s) PO TID 07/24/2015 07/30/2015 Inactive Effexor XR 75 mg capsule,extended release RxNorm: 742411 TAKE 3 CAPSULES BY MOUTH EVERY MORNING 07/23/2015 09/20/2015 Inactive oxycodone 5 mg tablet RxNorm: 8635072 4 Tablet(s) PO daily 06/26/2015 02/03/2016 Inactive potassium chloride ER 20 mEq tablet,extended release RxNorm: 620135 1 Tablet(s) PO daily 06/25/2015 06/13/2016 Inactive oxycodone 5 mg tablet RxNorm: 9873819 4 Tablet(s) PO daily 04/17/2015 06/25/2015 Inactive rx written Anoro Ellipta 62.5 mcg-25 mcg/actuation powder for inhalation RxNorm: 1526929 1 INH daily 04/17/2015 08/19/2015 Inactive potassium chloride ER 20 mEq tablet,extended release RxNorm: 477562 1 Tablet(s) PO daily 03/23/2015 06/24/2015 Inactive triamcinolone acetonide 0.1 % topical cream RxNorm: 4846897 1 Application TOP BID 03/20/2015 No Stop Date Active carvedilol 12.5 mg tablet RxNorm: 417887 1 TABLET(S) PO BID 02/23/2015 08/21/2015 Inactive diclofenac sodium 75 mg tablet,delayed release RxNorm: 260161 1 Tablet(s) PO BID 02/18/2015 02/12/2016 Inactive carvedilol 12.5 mg tablet RxNorm: 900108 1 Tablet(s) PO BID 02/17/2015 02/11/2016 Inactive furosemide 40 mg tablet RxNorm: 772144 1 Tablet(s) PO daily 02/17/2015 02/11/2016 Inactive lisinopril 40 mg tablet RxNorm: 656680 TAKE 1 TABLET BY MOUTH DAILY 02/16/2015 08/09/2015 Inactive ceftriaxone 1 gram solution for injection RxNorm: 4484264 1 Gram(s) Inj daily mix with lidocaine 01/14/2015 01/17/2015 Inactive please supply 4 bottles of 1gram rocephin IM with 1 bottle of lidocaine 1% for home health to administer to pt starting 01/15 ceftriaxone 1 gram solution for injection RxNorm: 4390997 1 Gram(s) Inj daily 01/14/2015 01/13/2015 Inactive please supply 4 bottles of 1gram rocephin IM with 1 bottle of lidocaine 1% for home health to administer to pt starting 01/15 Augmentin 500 mg-125 mg tablet RxNorm: 657911 1 Tablet(s) PO BID 01/13/2015 01/22/2015 Inactive Keflex 500 mg capsule RxNorm: 928605 1 Capsule(s) PO TID 12/12/2014 12/11/2014 Inactive Keflex 500 mg capsule RxNorm: 765599 1 Capsule(s) PO TID 12/12/2014 12/17/2014 Inactive Augmentin 500 mg-125 mg tablet RxNorm: 787597 1 Tablet(s) PO BID 11/28/2014 12/02/2014 Inactive Augmentin 500 mg-125 mg tablet RxNorm: 476426 1 Tablet(s) PO BID 11/28/2014 11/27/2014 Inactive Cipro 500 mg tablet RxNorm: 183139 1 Tablet(s) PO BID 11/24/2014 11/27/2014 Inactive gabapentin 600 mg tablet RxNorm: 355719 1 Tablet(s) PO BID 11/17/2014 08/13/2015 Inactive gabapentin 600 mg tablet RxNorm: 557845 1 Tablet(s) PO BID 11/17/2014 11/16/2014 Inactive oxycodone 5 mg tablet RxNorm: 7813161 4 Tablet(s) PO daily 11/07/2014 02/04/2015 Inactive rx written Effexor XR 75 mg capsule,extended release RxNorm: 618398 3 Capsule(s) 225 PO QAM 11/05/2014 03/04/2015 Inactive clopidogrel 75 mg tablet RxNorm: 591927 1 Tablet(s) PO QAM 11/05/2014 01/28/2016 Inactive Effexor XR 75 mg capsule,extended release RxNorm: 467313 3 Capsule(s) 225 PO QAM 11/03/2014 11/04/2014 Inactive carvedilol 12.5 mg tablet RxNorm: 980586 1 Tablet(s) PO BID 10/28/2014 02/16/2015 Inactive Effexor XR 75 mg capsule,extended release RxNorm: 977390 3 Capsule(s) 225 PO QAM 10/28/2014 11/02/2014 Inactive Effexor XR 75 mg capsule,extended release RxNorm: 402152 3 Capsule(s) 225 PO QAM 10/28/2014 10/27/2014 Inactive carvedilol 12.5 mg tablet RxNorm: 194971 1 Tablet(s) PO BID 10/28/2014 10/27/2014 Inactive ceftriaxone 1 gram solution for injection RxNorm: 9245347 Inj 09/05/2014 09/05/2014 Inactive Cipro 500 mg tablet RxNorm: 525020 1 Tablet(s) PO BID 09/04/2014 09/03/2014 Inactive Cipro 500 mg tablet RxNorm: 589059 1 Tablet(s) PO BID 09/04/2014 09/10/2014 Inactive oxycodone 5 mg tablet RxNorm: 1105999 4 Tablet(s) PO daily 08/20/2014 11/06/2014 Inactive rx written lisinopril 40 mg tablet RxNorm: 078300 TAKE 1 TABLET BY MOUTH DAILY 08/18/2014 02/13/2015 Inactive nystatin 100,000 unit/mL oral suspension RxNorm: 270807 5 Milliliter(s) PO QID 07/04/2014 07/13/2014 Inactive [SAVINGS FOR NON-COVERED DRUGS -- BIN:[id number], PCN: [id number], Group: [id number], ID# [id number], Questions: . THIS IS NOT INSURANCE.] WelChol 3.75 gram oral powder packet RxNorm: 350059 1 PO BID No Start Date Active amlodipine 10 mg tablet RxNorm: 600033 1 Tablet(s) PO QAM No Start Date Active One A Day oral RxNorm: 73350 oral No Start Date Active Vitamin D2 400 unit capsule RxNorm: 648772 1 Capsule(s) PO daily No Start Date Active aspirin 81 mg tablet,delayed release RxNorm: 163875 1 Tablet(s) PO daily No Start Date Active melatonin 5 mg disintegrating tablet RxNorm: 5636285 1 Tablet(s) PO QHS No Start Date Active Miralax 17 gram/dose oral powder RxNorm: 968675 17 Gram(s) PO daily in prune juice No Start Date Active clonidine HCl 0.1 mg tablet RxNorm: 571768 1 Tablet(s) PO QHS No Start Date Active hydrochlorothiazide oral RxNorm: 5487 oral No Start Date Active Lasix oral RxNorm: 041983 oral No Start Date 02/17/2015 Inactive potassium chloride 20 meq RxNorm: 817637 PO daily No Start Date 03/22/2015 Inactive Zoloft 25 mg tablet RxNorm: 516999 1 Tablet(s) PO daily x 5 days then increase to 50mg daily No Start Date 07/10/2017 Inactive oxycodone 5 mg tablet RxNorm: 5754059 3-4 Tablet(s) PO QHS No Start Date 08/19/2014 Inactive terazosin 2 mg capsule RxNorm: 366105 1 Capsule(s) PO daily No Start Date 07/26/2015 Inactive Effexor XR 75 mg capsule,extended release RxNorm: 278777 3 Capsule(s) 225 PO QAM No Start Date 10/27/2014 Inactive gabapentin 600 mg tablet RxNorm: 123809 1 Tablet(s) PO BID No Start Date 11/16/2014 Inactive pantoprazole 40 mg tablet,delayed release RxNorm: 290981 oral No Start Date 12/21/2015 Inactive Anoro Ellipta 62.5 mcg-25 mcg/actuation powder for inhalation RxNorm: 8716969 1 INH daily No Start Date 04/16/2015 Inactive diclofenac sodium 75 mg tablet,delayed release RxNorm: 398573 1 Tablet(s) PO BID No Start Date 02/17/2015 Inactive clopidogrel 75 mg tablet RxNorm: 106356 1 Tablet(s) PO QAM No Start Date 11/04/2014 Inactive lisinopril 40 mg tablet RxNorm: 800116 1 Tablet(s) PO daily No Start Date 08/17/2014 Inactive carvedilol 12.5 mg tablet RxNorm: 751509 1 Tablet(s) PO BID No Start Date 10/27/2014 Inactive Medication Administered Medication Codes Instructions Start Date Status ceftriaxone 500 mg solution for injection RxNorm: 7416320 2Milliliter 05/22/2018 No longer Active Kenalog 40 mg/mL suspension for injection RxNorm: 8537143 Milliliter 04/20/2018 No longer Active ceftriaxone 1 gram solution for injection RxNorm: 1950316 09/05/2014 No longer Active Immunizations Vaccine Codes [...] 20.6 % 05/22/2018 Cbc With Differential Ord2 Barron% 14.7 % 05/22/2018 Cbc With Differential Ord2 [...] 2.01 K/ul 05/22/2018 Cbc With Differential Ord2 Barron ABS# 1.4 K/ul 05/22/2018 Cbc With Differential Ord2 Eos ABS# 0.4 K/ul 05/22/2018 Cbc With Differential Ord2 Baso ABS# 0.0 K/ul 05/22/2018 Comp Metabolic Zev545 NA 136 mEq/L 05/22/2018 Comp Metabolic Lcl756 K 4.7 mEq/L 05/22/2018 Comp Metabolic Lky947 CL 104 mEq/L 05/22/2018 Comp Metabolic End209 CO2 23.0 mEq/L 05/22/2018 Comp Metabolic Kea980 ANION GAP 14 05/22/2018 Comp Metabolic Aty077 GLUCOSE 113 mg/dL 05/22/2018 Comp Metabolic Wpb783 Creat 1.6 mg/dL 05/22/2018 Comp Metabolic Krz278 eGFR 46 ml/min/1.73m2 05/22/2018 Comp Metabolic Icw542 BUN 21 mg/dL 05/22/2018 Comp Metabolic Rtg290 B/C Ratio 13.5 Ratio 05/22/2018 Comp Metabolic Fzt807 CALCIUM 8.6 mg/dL 05/22/2018 Comp Metabolic Mnf582 ALK PHOS 84 U/L 05/22/2018 Comp Metabolic Kee713 AST(SGOT) 17 U/L 05/22/2018 Comp Metabolic Xko776 ALT(SGPT) 22 U/L 05/22/2018 Comp Metabolic Ftz949 BILI T 0.5 mg/dL 05/22/2018 Comp Metabolic Jea399 ALBUMIN 3.4 g/dL 05/22/2018 Comp Metabolic Mny695 TPRO 6.6 g/dL 05/22/2018 Comp Metabolic Xfq240 GLOB 3.2 g/dL 05/22/2018 Comp Metabolic Tfu800 A/G Ratio 1.0 Ratio 05/22/2018 Comp Metabolic Jbi682 Osmo 276 mOsmo 05/22/2018 B Type Natriuretic Peptide Lya7199 B-FILAMENT CUTTER 258.00 pg/ml 05/22/2018 Magnesium Ord90 Mag 2.3 mg/dL 05/22/2018 Urine Culture Ucult Complete >100,000 col/ml aerobic growth sent to ref lab 12/15/2017 Lipid Ord30 CHOL 128 mg/dL 11/14/2017 Lipid Ord30 HDL 24.0 mg/dl 11/14/2017 Lipid Ord30 TRIG 206 mg/dL 11/14/2017 Lipid Ord30 LDL 63 mg/dL 11/14/2017 Lipid Ord30 C/HDL 5.3 Ratio 11/14/2017 Tsh Ord6 TSH (3rd IS) 3.24 uIU/mL 11/14/2017 Comp Metabolic Fbf896 NA 137 mEq/L 11/14/2017 Comp Metabolic Mki097 K 4.0 mEq/L 11/14/2017 Comp Metabolic Rpm759 CL 104 mEq/L 11/14/2017 Comp Metabolic Roa457 CO2 23.0 mEq/L 11/14/2017 Comp Metabolic Usf567 ANION GAP 14 11/14/2017 Comp Metabolic Xzg086 GLUCOSE 101 mg/dL 11/14/2017 Comp Metabolic Eka149 Creat 1.1 mg/dL 11/14/2017 Comp Metabolic Tcl204 eGFR 67 ml/min/1.73m2 11/14/2017 Comp Metabolic Wef127 BUN 18 mg/dL 11/14/2017 Comp Metabolic Rfm139 B/C Ratio 15.9 Ratio 11/14/2017 Comp Metabolic Evd910 CALCIUM 9.0 mg/dL 11/14/2017 Comp Metabolic Fzu476 ALK PHOS 81 U/L 11/14/2017 Comp Metabolic Ply605 AST(SGOT) 19 U/L 11/14/2017 Comp Metabolic Jdl716 ALT(SGPT) 18 U/L 11/14/2017 Comp Metabolic Yst085 BILI T 0.3 mg/dL 11/14/2017 Comp Metabolic Wkh822 ALBUMIN 3.8 g/dL 11/14/2017 Comp Metabolic Ckx636 TPRO 7.3 g/dL 11/14/2017 Comp Metabolic Fgw644 GLOB 3.5 g/dL 11/14/2017 Comp Metabolic Vgi747 A/G Ratio 1.1 Ratio 11/14/2017 Comp Metabolic Jkb159 Osmo 276 mOsmo 11/14/2017 Cbc With Differential [...] 29.9 pg 11/14/2017 Cbc With Differential Ord2 Barron% 11.2 % 11/14/2017 Cbc With Differential Ord2 [...] 1.85 K/ul 11/14/2017 Cbc With Differential Ord2 Barron ABS# 1.0 K/ul 11/14/2017 Cbc With Differential Ord2 Eos ABS# 0.6 K/ul 11/14/2017 Cbc With Differential Ord2 Baso ABS# 0.0 K/ul 11/14/2017 Culture Urine [id number] URINE CULTURE SEE NOTES 05/22/2017 Culture Urine [id number] Continued Results 05/22/2017 Urine Culture Ucult Complete >100,000 col/ml aerobic growth sent to ref lab 05/16/2017 Culture Urine [id number] URINE CULTURE SEE NOTES 04/21/2017 Urine Culture [...] 30.9 pg 03/30/2017 Cbc With Differential Ord2 Barron% 13.0 % 03/30/2017 Cbc With Differential Ord2 [...] 1.69 K/ul 03/30/2017 Cbc With Differential Ord2 Barron ABS# 0.9 K/ul 03/30/2017 Cbc With Differential Ord2 Eos ABS# 0.5 K/ul 03/30/2017 Cbc With Differential Ord2 Baso ABS# 0.0 K/ul 03/30/2017 %Hba1C Maa262 % HbA1c 85107- 6 5.8 % 03/30/2017 %Hba1C Xgw618 Gluc Ave 120 mg/dL 03/30/2017 Comp Metabolic Cfz454 NA 140 mEq/L 03/30/2017 Comp Metabolic Vel599 K 4.0 mEq/L 03/30/2017 Comp Metabolic Jip064 CL 105 mEq/L 03/30/2017 Comp Metabolic Oie076 CO2 25.0 mEq/L 03/30/2017 Comp Metabolic Mws333 ANION GAP 14 03/30/2017 Comp Metabolic Say207 GLUCOSE 108 mg/dL 03/30/2017 Comp Metabolic Fdk865 Creat 1.2 mg/dL 03/30/2017 Comp Metabolic Tdd598 eGFR 63 ml/min/1.73m2 03/30/2017 Comp Metabolic Wol549 BUN 20 mg/dL 03/30/2017 Comp Metabolic Ahv237 B/C Ratio 16.9 Ratio 03/30/2017 Comp Metabolic Lfg385 CALCIUM 9.2 mg/dL 03/30/2017 Comp Metabolic Zzq617 ALK PHOS 83 U/L 03/30/2017 Comp Metabolic Mxn797 AST(SGOT) 17 U/L 03/30/2017 Comp Metabolic Ezt560 ALT(SGPT) 19 U/L 03/30/2017 Comp Metabolic Pxg917 BILI T 0.3 mg/dL 03/30/2017 Comp Metabolic Qek237 ALBUMIN 3.9 g/dL 03/30/2017 Comp Metabolic Wah624 TPRO 7.2 g/dL 03/30/2017 Comp Metabolic Tau414 GLOB 3.3 g/dL 03/30/2017 Comp Metabolic Yyf598 A/G Ratio 1.2 Ratio 03/30/2017 Comp Metabolic Ntd694 Osmo 283 mOsmo 03/30/2017 Tsh Ord6 TSH (3rd IS) 1.40 uIU/mL 03/30/2017 Clostridium Diff Tox A/B Ztp866 Cdiff Positive 06/03/2016 Total Psa PSA 1.53 [...] 31.2 pg 03/20/2015 Cbc With Differential Ord2 Barron% 12.8 % 03/20/2015 Cbc With Differential Ord2 [...] 1.69 K/ul 03/20/2015 Cbc With Differential Ord2 Barron ABS# 0.8 K/ul 03/20/2015 Cbc With Differential Ord2 Eos ABS# 0.6 K/ul 03/20/2015 Cbc With Differential Ord2 Baso ABS# 0.0 K/ul 03/20/2015 Cbc With Differential Ord2 New Analyzer Notice Please note new ref ranges starting 03-04-2015 due to implemntation of new five part differential hematolgy analyzer. 03/20/2015 Total Psa Ord10 PSA 2.25 ng/mL 02/26/2015 Comp Metabolic Ypy761 NA 138 mEq/L 02/26/2015 Comp Metabolic Nje721 K 4.0 mEq/L 02/26/2015 Comp Metabolic Hvl800 CL 103 mEq/L 02/26/2015 Comp Metabolic Jbw150 CO2 28.0 mEq/L 02/26/2015 Comp Metabolic Ksh240 ANION GAP 11 02/26/2015 Comp Metabolic Dih880 GLUCOSE 95 mg/dL 02/26/2015 Comp Metabolic Uww287 Creat 1.0 mg/dL 02/26/2015 Comp Metabolic Brs480 eGFR 74 ml/min/1.73m2 02/26/2015 Comp Metabolic Iue967 BUN 19 mg/dL 02/26/2015 Comp Metabolic Esh500 B/C Ratio 18.3 Ratio 02/26/2015 Comp Metabolic Rqb849 CALCIUM 9.1 mg/dL 02/26/2015 Comp Metabolic Lok097 ALK PHOS 87 U/L 02/26/2015 Comp Metabolic Xdn537 AST(SGOT) 22 U/L 02/26/2015 Comp Metabolic Wff932 ALT(SGPT) 24 U/L 02/26/2015 Comp Metabolic Ggp498 BILI T 0.4 mg/dL 02/26/2015 Comp Metabolic Xqs657 ALBUMIN 4.0 g/dL 02/26/2015 Comp Metabolic Nig132 TPRO 7.4 g/dL 02/26/2015 Comp Metabolic Rpz749 GLOB 3.4 g/dL 02/26/2015 Comp Metabolic Njy158 A/G Ratio 1.2 Ratio 02/26/2015 Comp Metabolic Yhp049 Osmo 278 mOsmo 02/26/2015 Culture Urine [id number] URINE CULTURE SEE NOTES 12/15/2014 Culture Urine [id number] Continued Results 12/15/2014 Urine Culture Ucult Complete >100,000 col/ml aerobic growth sent to ref lab 12/12/2014 Comp Metabolic Aos137 NA 136 mEq/L 12/05/2014 Comp Metabolic Toc781 K 4.3 mEq/L 12/05/2014 Comp Metabolic Kaw036 CL 104 mEq/L 12/05/2014 Comp Metabolic Nja964 CO2 29.0 mEq/L 12/05/2014 Comp Metabolic Jyr228 ANION GAP 7 12/05/2014 Comp Metabolic Smm027 GLUCOSE 80 mg/dL 12/05/2014 Comp Metabolic Oju226 Creat 1.1 mg/dL 12/05/2014 Comp Metabolic Bdg232 eGFR 68 ml/min/1.73m2 12/05/2014 Comp Metabolic Jzv073 BUN 21 mg/dL 12/05/2014 Comp Metabolic Afh176 B/C Ratio 18.8 Ratio 12/05/2014 Comp Metabolic Lno215 CALCIUM 9.3 mg/dL 12/05/2014 Comp Metabolic Eii438 ALK PHOS 81 U/L 12/05/2014 Comp Metabolic Erg042 AST(SGOT) 17 U/L 12/05/2014 Comp Metabolic Btr704 ALT(SGPT) 16 U/L 12/05/2014 Comp Metabolic Nlt670 BILI T 0.3 mg/dL 12/05/2014 Comp Metabolic Fyt386 ALBUMIN 4.0 g/dL 12/05/2014 Comp Metabolic Pcj392 TPRO 6.9 g/dL 12/05/2014 Comp Metabolic Pmm068 GLOB 2.9 g/dL 12/05/2014 Comp Metabolic Rsl776 A/G Ratio 1.4 Ratio 12/05/2014 Comp Metabolic Vgb965 Osmo 274 mOsmo 12/05/2014 Cbc With Differential [...] Ord2 RDW 15.0 % 12/05/2014 Culture Urine [id number] URINE CULTURE SEE NOTES 11/27/2014 Culture Urine [id number] Continued Results 11/27/2014 Urine Culture Ucult Complete Growth of aerobe sent to ref lab 11/25/2014 B Type Natriuretic Peptide [id number] B-FILAMENT CUTTER 121.00 pg/ml 10/08/2014 Cbc With Differential Ord2 [...] Folate Ord36 Folate 22.12 ng/mL 10/08/2014 B12 Ryo310 B12 >1500.00 pg/ml 10/08/2014 Comp Metabolic Qdf719 NA 135 mEq/L 10/08/2014 Comp Metabolic Ycq473 K 4.5 mEq/L 10/08/2014 Comp Metabolic Dqn005 CL 104 mEq/L 10/08/2014 Comp Metabolic Uag412 CO2 25.0 mEq/L 10/08/2014 Comp Metabolic Uzq485 ANION GAP 11 10/08/2014 Comp Metabolic Hww014 GLUCOSE 73 mg/dL 10/08/2014 Comp Metabolic Nyg984 Creat 1.1 mg/dL 10/08/2014 Comp Metabolic Hav221 eGFR 71 ml/min/1.73m2 10/08/2014 Comp Metabolic Mfj118 BUN 21 mg/dL 10/08/2014 Comp Metabolic Wrf263 B/C Ratio 19.4 Ratio 10/08/2014 Comp Metabolic Ajq407 CALCIUM 9.0 mg/dL 10/08/2014 Comp Metabolic Msy426 ALK PHOS 73 U/L 10/08/2014 Comp Metabolic Fbt197 AST(SGOT) 15 U/L 10/08/2014 Comp Metabolic Lmf489 ALT(SGPT) 14 U/L 10/08/2014 Comp Metabolic Hfu709 BILI T 0.4 mg/dL 10/08/2014 Comp Metabolic Mhc496 ALBUMIN 4.2 g/dL 10/08/2014 Comp Metabolic Zct999 TPRO 7.1 g/dL 10/08/2014 Comp Metabolic Rwn149 GLOB 2.9 g/dL 10/08/2014 Comp Metabolic Ran161 A/G Ratio 1.4 Ratio 10/08/2014 Comp Metabolic Qev658 Osmo 272 mOsmo 10/08/2014 B12 Imd192 B12 554.00 pg/ml 09/16/2014 Tibc Ord40 Iron 108 ug/dl 09/16/2014 Tibc Ord40 UIBC 281 ug/dL 09/16/2014 Tibc Ord40 TIBC 389 ug/dL 09/16/2014 Tibc Ord40 Fe-%Sat 27.8 % 09/16/2014 Folate Ord36 Folate >23.20 ng/mL 09/16/2014 Comp Metabolic Dii270 NA 134 mEq/L 09/16/2014 Comp Metabolic Dgs152 K 4.6 mEq/L 09/16/2014 Comp Metabolic Umg720 CL 103 mEq/L 09/16/2014 Comp Metabolic Cae324 CO2 25.0 mEq/L 09/16/2014 Comp Metabolic Nrf756 ANION GAP 11 09/16/2014 Comp Metabolic Rfy353 GLUCOSE 93 mg/dL 09/16/2014 Comp Metabolic Alv984 Creat 1.2 mg/dL 09/16/2014 Comp Metabolic Uqb461 eGFR 65 ml/min/1.73m2 09/16/2014 Comp Metabolic Ngj924 BUN 23 mg/dL 09/16/2014 Comp Metabolic Fan182 B/C Ratio 19.8 Ratio 09/16/2014 Comp Metabolic Utn345 CALCIUM 9.1 mg/dL 09/16/2014 Comp Metabolic Jhl514 ALK PHOS 73 U/L 09/16/2014 Comp Metabolic Svo689 AST(SGOT) 18 U/L 09/16/2014 Comp Metabolic Nbv619 ALT(SGPT) 16 U/L 09/16/2014 Comp Metabolic Sed972 BILI T 0.4 mg/dL 09/16/2014 Comp Metabolic Kwc409 ALBUMIN 4.0 g/dL 09/16/2014 Comp Metabolic Osf429 TPRO 7.1 g/dL 09/16/2014 Comp Metabolic Rio165 GLOB 3.1 g/dL 09/16/2014 Comp Metabolic Epi357 A/G Ratio 1.3 Ratio 09/16/2014 Comp Metabolic Yii872 Osmo 272 mOsmo 09/16/2014 Cbc With Differential [...] Ord22 FERRITIN 36.2 ng/mL 09/16/2014 Culture Urine [id number] URINE CULTURE SEE NOTES 09/08/2014 Urine Culture [...] Ord2 RDW 17.8 % 09/05/2014 Comp Metabolic Ber846 NA 133 mEq/L 09/05/2014 Comp Metabolic Stb332 K 4.9 mEq/L 09/05/2014 Comp Metabolic Zua658 CL 99 mEq/L 09/05/2014 Comp Metabolic Yiw028 CO2 26.0 mEq/L 09/05/2014 Comp Metabolic Fbp979 ANION GAP 13 09/05/2014 Comp Metabolic Val191 GLUCOSE 83 mg/dL 09/05/2014 Comp Metabolic Ujm687 Creat 1.5 mg/dL 09/05/2014 Comp Metabolic Yre609 eGFR 47 ml/min/1.73m2 09/05/2014 Comp Metabolic Nsx425 BUN 28 mg/dL 09/05/2014 Comp Metabolic Zmn894 B/C Ratio 18.3 Ratio 09/05/2014 Comp Metabolic Vzg489 CALCIUM 8.9 mg/dL 09/05/2014 Comp Metabolic Awc922 ALK PHOS 71 U/L 09/05/2014 Comp Metabolic Fae570 AST(SGOT) 18 U/L 09/05/2014 Comp Metabolic Oks828 ALT(SGPT) 29 U/L 09/05/2014 Comp Metabolic Etx415 BILI T 0.6 mg/dL 09/05/2014 Comp Metabolic Cwe155 ALBUMIN 3.8 g/dL 09/05/2014 Comp Metabolic Dok129 TPRO 6.7 g/dL 09/05/2014 Comp Metabolic Lwm330 GLOB 2.9 g/dL 09/05/2014 Comp Metabolic Jhh780 A/G Ratio 1.3 Ratio 09/05/2014 Comp Metabolic Eox009 Osmo 271 mOsmo 09/05/2014 Total Psa Ord10 [...] Procedure Codes Date THER/PROPH/DIAG INJ SC/IM CPT-4: 33944 05/22/2018 ROCEPHIN, PER 250 MG CPT- 4: J0696 05/22/2018 THER/PROPH/DIAG INJ SC/IM CPT-4: 92793 04/20/2018 TRIAMCINOLONE ACET INJ NOS CPT-4: J3301 04/20/2018 URINALYSIS NONAUTO W/O SCOPE CPT-4: 04578 12/14/2017 URINALYSIS NONAUTO W/O SCOPE CPT-4: 20382 05/15/2017 URINALYSIS NONAUTO W/O SCOPE CPT-4: 78503 09/18/2015 ADMIN INFLUENZA VIRUS VAC CPT-4: G0008 12/31/2014 FLU VACC PRSV FREE INC ANTIG Formatting Model/CDA Sections, Assigned to/[place] [employer] CPT-4: 00188Mherozq 12/31/2014 URINALYSIS NONAUTO W/O SCOPE CPT-4: 28286 12/10/2014 URINALYSIS NONAUTO W/O SCOPE CPT-4: 63677 11/24/2014 ROCEPHIN, PER 250 MG CPT- 4: J0696 09/05/2014 THER/PROPH/DIAG INJ SC/IM CPT-4: 84197 09/05/2014 URINALYSIS NONAUTO W/O SCOPE CPT-4: 65696 09/04/2014 Vital Signs Date Vital 05/25/2018 Blood [...] 1: 138/60 Code: 8480-6 BMI: 37.2 Code: 50999-2 Heart Rate 1: 79 bpm Height: 5'9" SpO2: 91% Weight: 252 lbs 07/01/2016 Blood Pressure 1: 138/68 Code: 8480-6 BMI: 37.2 Code: 06203-7 Heart Rate 1: 69 bpm Height: 5'9" SpO2: 93% Weight: 252 lbs 05/05/2016 Blood Pressure 1: 136/78 Code: 8480-6 BMI: 39.3 Code: 58343-9 Heart Rate 1: 72 bpm Height: 5'9" SpO2: 97% Weight: 266 lbs 02/23/2016 Blood Pressure 1: 145/70 Code: 8480-6 BMI: 37.5 Code: 18446-2 Heart Rate 1: 80 bpm Height: 5'9" Weight: 254 lbs 09/16/2015 Blood Pressure 1: 140/62 Code: 8480-6 Heart Rate 1: 77 bpm Height: 5'9" SpO2: 93% Weight: 07/24/2015 Blood Pressure 1: 152/68 Code: 8480-6 BMI: 37.7 Code: 70514-4 Heart Rate 1: 73 bpm Height: 5'9" SpO2: 97% Weight: 255 lbs 03/20/2015 Blood Pressure 1: 146/74 Code: 8480-6 BMI: 38.1 Code: 88457-2 Heart Rate 1: 63 bpm Height: 5'9" Weight: 258 lbs 01/13/2015 Blood Pressure 1: 120/58 Code: 8480-6 Heart Rate 1: 52 bpm Height: 5'9" SpO2: 97% Temperature: 37.1 (C) / 98.7 (F) Weight: 12/05/2014 Blood Pressure 1: 134/54 Code: 8480-6 BMI: 36.3 Code: 12084-6 Heart Rate 1: 76 bpm Height: 5'9" SpO2: 93% Weight: 246 lbs 10/03/2014 Blood Pressure 1: 132/60 Code: 8480-6 Heart Rate 1: 76 bpm Height: SpO2: 95% Weight: 254 lbs 09/15/2014 Blood Pressure 1: 120/68 Code: 8480-6 BMI: 37.5 Code: 99145-8 Heart Rate 1: 76 bpm Height: 5'9" SpO2: 93% Weight: 254 lbs 09/05/2014 Blood Pressure 1: 110/50 Code: 8480-6 BMI: 37.4 Code: 28820-6 Heart Rate 1: 79 bpm Height: 5'9" SpO2: 96% Temperature: 36.3 (C) / 97.4 (F) Weight: 253 lbs 07/04/2014 Blood Pressure 1: 138/72 Code: 8480-6 BMI: 37.1 Code: 57941-1 Heart Rate 1: 72 bpm Height: 5'9" [...] discomfort 12/05/2014 occasional ache in chest- seeing specifications checker in [place]- doing heart cath in October [...] discomfort 10/03/2014 occasional ache in chest- seeing specifications checker in [place]- doing heart cath in October [...] hypertension[ICD10: I10] [facility] CPT-4: 20011 05/25/2018 08833 EST. 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 PATIENT, LEVEL III Diagnosis: Other acute sinusitis[ICD10: J01.80] Diagnosis: Other allergic rhinitis[ICD10: J30.89] Diagnosis: Cough[ICD10: R05] Mary Aburto MD, [facility] CPT-4: 98039 04/20/2018 ([id number]) 91847 EST. PATIENT, LEVEL IV Diagnosis: Essential (primary) hypertension[ICD10: I10] Diagnosis: Other iron deficiency anemias[ICD10: D50.8] Diagnosis: Weakness[ICD10: R53.1] Darleen Aburto MD, [facility] CPT-4: 46659 11/14/2017 94401 EST. PATIENT, LEVEL IV Diagnosis: Other lesions of oral mucosa[ICD10: K13.79] Diagnosis: Candidal stomatitis[ICD10: B37.0] Diagnosis: Generalized anxiety disorder[ICD10: F41.1] Diagnosis: Major depressive disorder, single episode, moderate[ICD10: F32.1] Mayr Aburto MD, [facility] CPT-4: 70578 08/15/2017 98414 EST. PATIENT, LEVEL III Diagnosis: Generalized anxiety disorder[ICD10: F41.1] Diagnosis: Cauda equina syndrome[ICD10: G83.4] Diagnosis: Major depressive disorder, single episode, moderate[ICD10: F32.1] Mary Aburto MD, [facility] CPT-4: 98893 06/29/2017 08933 EST. PATIENT, LEVEL IV Diagnosis: Dysuria[ICD10: R30.0] Diagnosis: Other malaise[ICD10: R53.81] Diagnosis: Cauda equina syndrome[ICD10: G83.4] Diagnosis: Weakness[ICD10: R53.1] Mary Aburto MD, [facility] CPT-4: 02384 03/30/2017 ([id number]) 71237 EST. PATIENT, LEVEL III Diagnosis: Cough[ICD10: R05] Diagnosis: Enterocolitis due to Clostridium difficile[ICD10: A04.7] Kavya Aburto MD, [facility] CPT-4: 16507 10/07/2016 ([id number]) 35098 EST. 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 PATIENT, LEVEL III Diagnosis: Cauda equina syndrome[ICD10: G83.4] Diagnosis: Irritable bowel syndrome with diarrhea[ICD10: K58.0] Mary Aburto MD, [facility] CPT-4: 23930 05/05/2016 91784 EST. PATIENT, LEVEL III Diagnosis: Pain in right shoulder[ICD10: M25.511] Diagnosis: Weakness[ICD10: R53.1] Diagnosis: Shortness of breath[ICD10: R06.02] Mary Aburto MD, [facility] CPT-4: 83970 02/23/2016 90385 EST. PATIENT, LEVEL III Diagnosis: Essential (primary) hypertension[ICD10: I10] Diagnosis: Other insomnia[ICD10: G47.09] Diagnosis: Irritable bowel syndrome with diarrhea[ICD10: K58.0] Diagnosis: Shortness of breath[ICD10: R06.02] Diagnosis: Weakness[ICD10: R53.1] Mary Aburto MD, [facility] CPT-4: 85510 09/16/2015 71264 EST. PATIENT, LEVEL III Diagnosis: Diarrhea, unspecified[ICD10: R19.7] Diagnosis: Nausea[ICD10: R11.0] Mary Aburto MD, [facility] CPT-4: 08250 07/24/2015 69816 EST. PATIENT, LEVEL IV Diagnosis: Other iron deficiency anemias[ICD10: D50.8] Diagnosis: Rash and other nonspecific skin eruption[ICD10: R21] Diagnosis: Cauda equina syndrome[ICD10: G83.4] Diagnosis: Essential (primary) hypertension[ICD10: I10] Diagnosis: Other pruritus[ICD10: L29.8] Diagnosis: Shortness of breath[ICD10: R06.02] Mary Aburto MD, [facility] CPT-4: 58072 03/20/2015 24330 EST. PATIENT, LEVEL IV Diagnosis: Urinary tract infection, site not specified[ICD10: N39.0] Diagnosis: Umbilical hernia without obstruction or gangrene[ICD10: K42.9] Diagnosis: Cauda equina syndrome[ICD10: G83.4] Mary Aburto MD, [facility] CPT- 4: 49223 01/13/2015 ([id number]) 50496 EST. PATIENT, LEVEL IV Diagnosis: Iron deficiency anemia, unspecified[ICD10: D50.9] Diagnosis: Essential (primary) hypertension[ICD10: I10] Diagnosis: Hematuria, unspecified[ICD10: R31.9] Kavya Aburto MD, [facility] CPT-4: 96114 12/05/2014 ([id number]) 89598 EST. PATIENT, LEVEL IV Diagnosis: ESSENTIAL HYPERTENSION[ICD9: 401.9] Diagnosis: COPD (chronic obstructive pulmonary disease)[ICD9: 496] Diagnosis: ANEMIA[ICD9: 285.9] Diagnosis: SHORTNESS OF BREATH[ICD9: 786.05] Kavya Aburto MD, [facility] CPT- 4: 08939 10/03/2014 ([id number]) 38165 EST. PATIENT, LEVEL IV Diagnosis: ESSENTIAL HYPERTENSION[ICD9: 401.9] Diagnosis: ANEMIA[ICD9: 285.9] Diagnosis: MALAISE AND FATIGUE[ICD9: 780.79] Darleen Aburto MD, [facility] CPT- 4: 68877 09/15/2014 ([id number]) 85846 EST. PATIENT, LEVEL III Diagnosis: UTI[ICD9: 599.0] Diagnosis: Chronic back pain[ICD9: 724.5] Kavya Aburto MD, [facility] CPT-4: 28382 09/05/2014 ([id number]) OFFICE VISIT, NEW - LEVEL 4 Diagnosis: ESSENTIAL HYPERTENSION[ICD9: 401.9] Diagnosis: THRUSH[ICD9: 112.0] Diagnosis: Hyperlipidemia[ICD9: 272.4] Diagnosis: COPD (chronic obstructive pulmonary disease)[ICD9: 496] Diagnosis: Cauda equina syndrome[ICD9: 344.60] Diagnosis: History of prostate cancer[ICD9: V10.46] Kavya Aburto MD, [facility] CPT-4: 25660 07/04/2014 Plan of Care Planned Activity Notes [...] in blood pressure readings at home. 05/25/2018 Patient Education: Patient Medication Summary Completed [...] O2. 05/22/2018 Appointment: Mary Alan WPtel: [facility]6 [facility] (30 min) Complex 05/22/2018 Patient Education: Patient [...] spray. 04/20/2018 Appointment: Mary Alan WPtel: [phone] [facility] (15 min) Moderate 04/20/2018 Patient Education: Patient Medication Summary Completed 04/20/2018 Appointment: Lab Draw 12/14/2017 Patient Education: Patient Medication Summary Completed 12/14/2017 Appointment: Darleen Aburto WPtel: [facility]2 [facility] (15 min) Moderate 11/28/2017 Visit Plan: Hypertension [...] report. 11/14/2017 App[facility]ment: [phone] ([facility] min) Moderate 11/14/2017 Patient Education: Patient [...] patient. 08/15/2017 App[facility]ment[phone] (30 min) Complex 08/15/2017 Patient Education: Patient Medication Summary Completed 08/15/2017 Appointment: Mary Alan WPtel: [facility]5 [facility] (15 min) Moderate 08/08/2017 Appointment: Mary Alan WPtel: [facility]5 [facility] (15 min) Moderate 08/03/2017 Visit [...] pain symptoms. 06/29/2017 Appointment: Mary Alan WPtel: [address] [place], [place] [phone] (15 min) Moderate 06/29/2017 Patient Education: Patient [...] improve. 03/30/2017 Appointment: Mary Alan WPtel: [facility]5 [facility] (30 min) Complex 03/30/2017 Patient Education: Patient Medication Summary Completed 03/30/2017 Visit Plan: Cough-suspect virus-patient to monitor over the weekend-call Monday if symptoms persist and we will do a chest xray and sputum culture Cdiff-treat with flagyl as directed-call if symptoms do not resolve 10/07/2016 Appointment: Kavya Subramanian WPtel: [phone] [phone] (30 min) Complex 10/07/2016 Patient Education: Patient Medication Summary Completed 10/07/2016 Patient Education: Obesity Completed 10/07/2016 Visit Plan: Cauda equina-chronic back pain-generalized weakness- right shoulder pain/weakness-patient to contact [facility] for mobility paperwork-will ask PT to do a mobility exam through [facility] Drug induced constipation-rx for movantik. 07/01/2016 Visit Plan: Cauda equina-chronic back pain-generalized weakness- bilateral shoulder pain/weakness-OA knees-patient to contact [facility] for mobility paperwork-will ask PT to do a mobility exam through [facility]. Patient is non ambulatory due to cauda [...] movantik. 07/01/2016 Appointment: Kavya Subramanian WPtel: [facility]0 [phone] (30 min) Complex 07/01/2016 Patient Education: [...] surgery. 05/05/2016 Appointment: [facility] Alan [facility]Ptel: [phone] [facility] 05/05/2016 Patient Education: [...] godoy. 02/23/2016 Appointment: [facility] Alan WPtel: [phone] (30 min) Complex 02/23/2016 Patient Education: Patient Medication Summary Completed 02/23/2016 Appointment: Mary Alan WPtel: [facility] (30 min) Complex 02/19/2016 Appointment: Darleen [facility]Ptel[phone] (15 min) Moderate 10/14/2015 Appointment: Lab Draw [...] having loose bowel movements. Keep appointment with Customer Business Manager Make an appointment with specifications checker - to follow up on shortness of breath. Weakness - pt is to contact Ramez Godoy in [facility] and Call clinic when he [...] not improved. 07/24/2015 Appointment: Kavya Subramanian WPtel: [address] [place] [phone] (30 min) Complex 07/24/2015 Patient Education: Patient [...] hypertension. 09/15/2014 Appointment: Darleen Aburto WPtel: [facility] (15 min) Moderate 09/15/2014 Patient Education: Patient [...] equina-increased incontinence of bowels-recommend follow up with field property loss specialist-will discuss repeat MRI with Dr Aburto-keep [...] do PT evaluation for motorized wheelchair through [employer] . Cauda equina-chronic back pain-generalized weakness-right shoulder pain/weakness- patient to contact [employer] for mobility paperwork-will ask PT to do a mobility exam through [facility] Drug induced constipation-rx for [employer]antik. [employer] [place] to do PT evaluation for motorized wheelchair through [employer] . Cauda equina-chronic back pain-generalized weakness-bilateral shoulder pain/weakness- OA knees-patient to contact [employer] for mobility paperwork-will ask PT to do a mobility exam through [facility]. Patient is non ambulatory due to cauda [...] incontinence of bowels- recommend follow up with field property loss specialist-will discuss repeat MRI with Dr Aburto-keep [...] (start tomorrow) let us know what your specifications checker says at your appointment chest x-ray if [...] - will have pt contact Ramez Goldman [facility]. . Cauda Equina, weakness, gait instability - [...] Peng 4. Make an appointment with your specifications checker - to follow up on shortness of breath. 5. Call us when you here about the mobility paperwork and we will fill out the paperwork. Ramez Godoy in [facility] . Hypertension - The patient [...] having loose bowel movements. Keep appointment with Customer Business Manager Make an appointment with specifications checker - to follow up on shortness of breath. Weakness - pt is to contact Ramez PierceSusifield Godoy in [facility] and Call clinic when he [...] 2 pills daily. Will consult Tiffany Bullard [facility] PT. Cauda Equina - stable - continue [...]
--- OUTSIDE RECORDS SUMMARY | 2018-07-19 09:23 | XMS REPORT | CCD ---
Author Author Kavya Subramanian Organization [facility] Address [address] [place] [address] Phone Care Team Providers Care E Commerce Project Manager Name Role Phone PP Unavailable CCM Unavailable Summary Purpose Interface Exchange Insurance Providers Payer name Policy type / Coverage type Covered democrat ID Effective Begin Date Effective End Date WPS Medicare Part B Commercial Insurance [id number] Unknown Unknown HEALTH[employer]ICE Commercial Insurance [id number] Unknown Unknown Family history Father Diagnosis Age At Onset Coronary Artery Disease Unknown Mother Diagnosis Age At Onset Arthritis Unknown Sister Diagnosis Age At Onset Alzheimer's Disease Unknown Social History Social History Element Codes Description Effective Dates Marital status Unknown 07/04/2014 Number of children Unknown 2 07/04/2014 Living arrangements Unknown House 07/04/[address]: 8381577 Quit over 10 years ago 07/04/2014 Alcohol history Unknown occasionally drinks alcohol 07/04/2014 Frequency of drinks SNOMED CT: 805235791 Drinks rarely 07/04/2014 Allergies, Adverse Reactions, Alerts Substance Reaction Codes Entered Date Inactivated Date Status * NO KNOWN FOOD ALLERGIES Unknown 07/04/2014 No Inactive Date Active Iodine rash, pruritis, RxNorm: 5933 03/04/2015 No Inactive Date Active tramadol pruritis RxNorm: 79346 07/04/2014 No Inactive Date Active Past Medical History Illness Codes Condition Status Onset Date Resolved Date Acute on chronic combined systolic (congestive) and diastolic (congestive) heart failure ICD-9: 428.43 ICD-10: I50.43 Active 05/22/2018 Unknown Pneumonia due to other specified bacteria ICD-9: 482.81 ICD-10: J15.8 Active 05/22/2018 Unknown Cough ICD-9: 786.2 ICD-10: R05 Active 10/07/2016 Unknown Other acute sinusitis ICD- 9: 461.8 ICD-10: J01.80 Active 04/20/2018 Unknown Other allergic rhinitis ICD-9: 477.8 ICD-10: J30.89 Active 04/20/2018 Unknown Dysuria ICD-9: 788.1 ICD-10: R30.0 Active 03/30/2017 Unknown Essential (primary) hypertension ICD-9: 401.9 ICD-10: I10 Active 09/15/2015 Unknown Other iron deficiency anemias ICD-9: 280.1 [...] failure ICD-9: 428.43 ICD-10: I50.43 05/22/2018 Active Pneumonia due to other specified bacteria ICD-9: 482.81 ICD-10: J15.8 05/22/2018 Active Cough ICD-9: 786.2 ICD-10: R05 10/07/2016 Active Other acute sinusitis ICD- 9: 461.8 ICD-10: J01.80 04/20/2018 Active Other allergic rhinitis ICD-9: 477.8 ICD-10: J30.89 04/20/2018 Active Dysuria ICD-9: 788.1 ICD-10: R30.0 03/30/2017 Active Essential (primary) hypertension ICD-9: 401.9 ICD-10: I10 09/15/2015 Active Other iron deficiency anemias ICD-9: 280.1 [...] Fill Instructions cefdinir 300 mg capsule RxNorm: 179213 1 Capsule(s) PO BID 05/22/2018 05/31/2018 Active Zithromax Z-Win 250 mg tablet RxNorm: 358818 Tablet(s) PO UD 05/22/2018 No Stop Date Active ceftriaxone 500 mg solution for injection RxNorm: 6472188 2 Milliliter(s) Inj 05/22/2018 05/22/2018 Inactive albuterol sulfate 2.5 mg/3 mL (0.083 %) solution for nebulization RxNorm: 424745 3 Milliliter(s) INH UD 05/22/2018 No Stop Date Active diclofenac sodium 75 mg tablet,delayed release RxNorm: 115545 1 TABLET(S) PO BID 05/14/2018 02/07/2019 Active gabapentin 600 mg tablet RxNorm: 048117 TABLET(S) TAKE 1 TABLET BY MOUTH TWICE DAILY 04/23/2018 04/17/2019 Active prednisone 20 mg tablet RxNorm: 154261 2 Tablet(s) PO daily 04/20/2018 04/24/2018 Inactive Kenalog 40 mg/mL suspension for injection RxNorm: 5998048 Milliliter(s) Inj 04/20/2018 04/20/2018 Inactive Augmentin 500 mg-125 mg tablet RxNorm: 119870 1 Tablet(s) PO TID 04/20/2018 04/26/2018 Inactive oxycodone 5 mg tablet RxNorm: 2999066 4 Tablet(s) PO daily 04/12/2018 06/25/2018 Active potassium chloride ER 20 mEq tablet,extended release RxNorm: 249484 1 TABLET(S) PO DAILY 03/09/2018 03/03/2019 Active oxycodone 5 mg tablet RxNorm: 6645511 4 Tablet(s) PO daily 01/18/2018 04/02/2018 Inactive Augmentin 500 mg-125 mg tablet RxNorm: 786108 1 Tablet(s) PO TID 12/14/2017 12/23/2017 Inactive take probiotic bid x 10 days pantoprazole 40 mg tablet,delayed release RxNorm: 229757 TAKE 1 TABLET BY MOUTH DAILY 12/11/2017 12/05/2018 Active Augmentin 500 mg-125 mg tablet RxNorm: 833422 1 Tablet(s) PO TID 11/17/2017 11/22/2017 Inactive take probiotic bid x 7 days lisinopril 40 mg tablet RxNorm: 845187 TAKE 1 TABLET BY MOUTH DAILY 11/06/2017 08/02/2018 Active oxycodone 5 mg tablet RxNorm: 4889399 4 Tablet(s) PO daily 10/16/2017 12/29/2017 Inactive Cymbalta 30 mg capsule,delayed release RxNorm: 927108 2 Capsule(s) PO daily 08/17/2017 02/12/2018 Inactive Zoloft 25 mg tablet RxNorm: 854617 1 TABLET(S) PO DAILY X 5 DAYS THEN INCREASE TO 50MG DAILY 08/16/2017 No Stop Date Active Cymbalta 30 mg capsule,delayed release RxNorm: 873135 1 Capsule(s) PO 1 CAPSULE(S) PO DAILY X 1 WEEK, THEN INCREASE TO 2 DAILY 08/15/2017 08/16/2017 Inactive Patient requests 90 days supply diclofenac sodium 75 mg tablet,delayed release RxNorm: 365074 1 TABLET(S) PO BID 08/14/2017 05/10/2018 Inactive oxycodone 5 mg tablet RxNorm: 1591576 4 Tablet(s) PO daily 08/01/2017 10/14/2017 Inactive valacyclovir 1 gram tablet RxNorm: 640745 1 Tablet(s) PO TID 07/12/2017 07/11/2017 Inactive Zoloft 50 mg tablet RxNorm: 596700 1 Tablet(s) PO daily 07/12/2017 08/01/2017 Inactive valacyclovir 1 gram tablet RxNorm: 313585 1 Tablet(s) PO TID 07/12/2017 07/18/2017 Inactive Zoloft 50 mg tablet RxNorm: 358244 1 Tablet(s) PO daily 07/12/2017 07/11/2017 Inactive Zoloft 25 mg tablet RxNorm: 095745 1 Tablet(s) PO daily x 5 days then increase to 50mg daily 07/11/2017 07/11/2017 Inactive Cymbalta 30 mg capsule,delayed release RxNorm: 728714 1 Capsule(s) PO daily x 1 week, then increase to 2 daily 06/30/2017 06/29/2017 Inactive Cymbalta 30 mg capsule,delayed release RxNorm: 603531 1 CAPSULE(S) PO DAILY X 1 WEEK, THEN INCREASE TO 2 DAILY 06/30/2017 07/04/2017 Inactive Patient requests 90 days supply Augmentin 875 mg-125 mg tablet RxNorm: 963604 1 Tablet(s) PO BID 05/22/2017 05/28/2017 Inactive Probiotic QID while on antibiotics Bactrim DS 800 mg-160 mg tablet RxNorm: 014341 1 Tablet(s) PO BID 05/22/2017 05/21/2017 Inactive Probiotic QID while on antibiotics Bactrim DS 800 mg-160 mg tablet RxNorm: 235094 1 Tablet(s) PO BID 05/22/2017 05/28/2017 Inactive Probiotic QID while on antibiotics Augmentin 875 mg-125 mg tablet RxNorm: 466894 1 Tablet(s) PO BID 05/22/2017 05/21/2017 Inactive Probiotic QID while on antibiotics Cipro 500 mg tablet RxNorm: 667968 1 Tablet(s) PO BID 04/21/2017 04/30/2017 Inactive Take probiotic while on ABT Cipro 500 mg tablet RxNorm: 040578 1 Tablet(s) PO BID 04/21/2017 04/20/2017 Inactive Diflucan 150 mg tablet RxNorm: 453882 1 Tablet(s) PO daily 04/19/2017 11/13/2017 Inactive Diflucan 150 mg tablet RxNorm: 326150 1 Tablet(s) PO daily 04/19/2017 04/18/2017 Inactive oxycodone 5 mg tablet RxNorm: 9217775 4 Tablet(s) PO daily 04/17/2017 06/30/2017 Inactive gabapentin 600 mg tablet RxNorm: 162308 TABLET(S) TAKE 1 TABLET BY MOUTH TWICE DAILY 04/14/2017 04/08/2018 Inactive Rocephin 1 gram solution for injection RxNorm: 429470 1 Inj daily 04/05/2017 04/11/2017 Inactive Rocephin 1 gram solution for injection RxNorm: 455975 1 Inj daily 04/04/2017 04/04/2017 Inactive lidocaine (PF) 10 mg/mL (1 %) injection solution RxNorm: 9332175 1 Milliliter(s) Inj daily 04/04/2017 04/10/2017 Inactive Use to administer rocephin lidocaine (PF) 10 mg/mL (1 %) injection solution RxNorm: 1058168 1 Milliliter(s) Inj daily 04/04/2017 04/03/2017 Inactive Use to administer rocephin Rocephin 1 gram solution for injection RxNorm: 657183 1 Inj daily 04/04/2017 04/03/2017 Inactive Augmentin 500 mg-125 mg tablet RxNorm: 384458 1 Tablet(s) PO TID 03/31/2017 04/03/2017 Inactive Augmentin 500 mg-125 mg tablet RxNorm: 776818 1 Tablet(s) PO TID 03/31/2017 03/30/2017 Inactive Effexor XR 75 mg capsule,extended release RxNorm: 273622 TAKE 3 CAPSULES BY MOUTH EVERY MORNING 03/24/2017 11/13/2017 Inactive potassium chloride ER 20 mEq tablet,extended release RxNorm: 132505 1 TABLET(S) PO DAILY 03/13/2017 03/07/2018 Inactive lisinopril 40 mg tablet RxNorm: 006423 TAKE 1 TABLET BY MOUTH DAILY 02/06/2017 11/02/2017 Inactive pantoprazole 40 mg tablet,delayed release RxNorm: 945806 TAKE 1 TABLET BY MOUTH DAILY 12/19/2016 12/10/2017 Inactive oxycodone 5 mg tablet RxNorm: 6437077 4 Tablet(s) PO daily 12/19/2016 03/03/2017 Inactive diclofenac sodium 75 mg tablet,delayed release RxNorm: 368257 1 TABLET(S) PO BID 11/17/2016 08/13/2017 Inactive gabapentin 600 mg tablet RxNorm: 474512 TABLET(S) TAKE 1 TABLET BY MOUTH TWICE DAILY 10/14/2016 04/11/2017 Inactive Flagyl 500 mg tablet RxNorm: 150652 1 Tablet(s) PO TID 10/07/2016 10/16/2016 Inactive oxycodone 5 mg tablet RxNorm: 4813919 4 Tablet(s) PO daily 10/03/2016 12/16/2016 Inactive Effexor XR 75 mg capsule,extended release RxNorm: 561637 TAKE 3 CAPSULES BY MOUTH EVERY MORNING 09/22/2016 11/20/2016 Inactive Patient requests 90 days supply lisinopril 40 mg tablet RxNorm: 488125 TAKE 1 TABLET BY MOUTH DAILY 08/01/2016 01/27/2017 Inactive Effexor XR 75 mg capsule,extended release RxNorm: 019545 TAKE 3 CAPSULES BY MOUTH EVERY MORNING 07/21/2016 09/21/2016 Inactive oxycodone 5 mg tablet RxNorm: 7638415 4 Tablet(s) PO daily 07/11/2016 09/23/2016 Inactive Movantik 25 mg tablet RxNorm: 4096483 1 Tablet(s) PO daily 07/01/2016 11/13/2017 Inactive potassium chloride ER 20 mEq tablet,extended release RxNorm: 941073 1 TABLET(S) PO DAILY 06/14/2016 03/10/2017 Inactive Flagyl 500 mg tablet RxNorm: 014079 1 Tablet(s) PO TID 06/03/2016 06/12/2016 Inactive Flagyl 500 mg tablet RxNorm: 737122 1 Tablet(s) PO TID 06/03/2016 06/02/2016 Inactive oxycodone 5 mg tablet RxNorm: 6067419 4 Tablet(s) PO daily 04/27/2016 07/10/2016 Inactive Tamiflu 75 mg capsule RxNorm: 189788 1 Capsule(s) PO daily 04/19/2016 04/28/2016 Inactive Tamiflu 75 mg capsule RxNorm: 375471 1 Capsule(s) PO daily 04/19/2016 04/18/2016 Inactive Effexor XR 75 mg capsule,extended release RxNorm: 268645 TAKE 3 CAPSULES BY MOUTH EVERY MORNING 02/18/2016 04/17/2016 Inactive diclofenac sodium 75 mg tablet,delayed release RxNorm: 241468 1 TABLET(S) PO BID 02/18/2016 11/13/2016 Inactive Effexor XR 75 mg capsule,extended release RxNorm: 992298 Capsule(s) TAKE 3 CAPSULES BY MOUTH EVERY MORNING 02/17/2016 08/14/2016 Inactive oxycodone 5 mg tablet RxNorm: 9544750 4 Tablet(s) PO daily 02/04/2016 04/26/2016 Inactive clopidogrel 75 mg tablet RxNorm: 446048 1 TABLET(S) PO QAM 02/01/2016 01/25/2017 Inactive gabapentin 600 mg tablet RxNorm: 623923 Tablet(s) TAKE 1 TABLET BY MOUTH TWICE DAILY 02/01/2016 10/13/2016 Inactive Effexor XR 75 mg capsule,extended release RxNorm: 967911 TAKE 3 CAPSULES BY MOUTH EVERY MORNING 01/11/2016 02/09/2016 Inactive pantoprazole 40 mg tablet,delayed release RxNorm: 294501 TAKE 1 TABLET BY MOUTH DAILY 12/22/2015 12/15/2016 Inactive Effexor XR 75 mg capsule,extended release RxNorm: 049522 TAKE 3 CAPSULES BY MOUTH EVERY MORNING 11/16/2015 01/14/2016 Inactive lisinopril 40 mg tablet RxNorm: 374495 TAKE 1 TABLET BY MOUTH DAILY 11/05/2015 07/31/2016 Inactive Effexor XR 75 mg capsule,extended release RxNorm: 581267 TAKE 3 CAPSULES BY MOUTH EVERY MORNING 09/22/2015 11/20/2015 Inactive Augmentin 500 mg-125 mg tablet RxNorm: 345822 1 Tablet(s) PO TID 09/18/2015 09/24/2015 Inactive Anoro Ellipta 62.5 mcg-25 mcg/actuation powder for inhalation RxNorm: 2163187 1 INH daily 08/20/2015 02/15/2016 Inactive Anoro Ellipta 62.5 mcg-25 mcg/actuation powder for inhalation RxNorm: 1153207 1 INH DAILY 08/20/2015 11/13/2017 Inactive lisinopril 40 mg tablet RxNorm: 688299 TAKE 1 TABLET BY MOUTH DAILY 08/10/2015 11/04/2015 Inactive gabapentin 600 mg tablet RxNorm: 485538 TAKE 1 TABLET BY MOUTH TWICE DAILY 08/10/2015 01/31/2016 Inactive terazosin 2 mg capsule RxNorm: 431673 TAKE ONE CAPSULE BY MOUTH EVERY DAY 07/27/2015 08/29/2016 Inactive hyoscyamine 0.125 mg sublingual tablet RxNorm: 6337262 1 Tablet(s) SL TID as needed 07/24/2015 08/02/2015 Inactive metronidazole 500 mg tablet RxNorm: 024251 1 Tablet(s) PO TID 07/24/2015 07/30/2015 Inactive Effexor XR 75 mg capsule,extended release RxNorm: 876883 TAKE 3 CAPSULES BY MOUTH EVERY MORNING 07/23/2015 09/20/2015 Inactive oxycodone 5 mg tablet RxNorm: 5068228 4 Tablet(s) PO daily 06/26/2015 02/03/2016 Inactive potassium chloride ER 20 mEq tablet,extended release RxNorm: 573665 1 Tablet(s) PO daily 06/25/2015 06/13/2016 Inactive oxycodone 5 mg tablet RxNorm: 3564625 4 Tablet(s) PO daily 04/17/2015 06/25/2015 Inactive rx written Anoro Ellipta 62.5 mcg-25 mcg/actuation powder for inhalation RxNorm: 0755649 1 INH daily 04/17/2015 08/19/2015 Inactive potassium chloride ER 20 mEq tablet,extended release RxNorm: 009889 1 Tablet(s) PO daily 03/23/2015 06/24/2015 Inactive triamcinolone acetonide 0.1 % topical cream RxNorm: 2978574 1 Application TOP BID 03/20/2015 No Stop Date Active carvedilol 12.5 mg tablet RxNorm: 032356 1 TABLET(S) PO BID 02/23/2015 08/21/2015 Inactive diclofenac sodium 75 mg tablet,delayed release RxNorm: 225833 1 Tablet(s) PO BID 02/18/2015 02/12/2016 Inactive carvedilol 12.5 mg tablet RxNorm: 419626 1 Tablet(s) PO BID 02/17/2015 02/11/2016 Inactive furosemide 40 mg tablet RxNorm: 937399 1 Tablet(s) PO daily 02/17/2015 02/11/2016 Inactive lisinopril 40 mg tablet RxNorm: 002645 TAKE 1 TABLET BY MOUTH DAILY 02/16/2015 08/09/2015 Inactive ceftriaxone 1 gram solution for injection RxNorm: 4145598 1 Gram(s) Inj daily mix with lidocaine 01/14/2015 01/17/2015 Inactive please supply 4 bottles of 1gram rocephin IM with 1 bottle of lidocaine 1% for home health to administer to pt starting 01/15 ceftriaxone 1 gram solution for injection RxNorm: 3902930 1 Gram(s) Inj daily 01/14/2015 01/13/2015 Inactive please supply 4 bottles of 1gram rocephin IM with 1 bottle of lidocaine 1% for home health to administer to pt starting 01/15 Augmentin 500 mg-125 mg tablet RxNorm: 133739 1 Tablet(s) PO BID 01/13/2015 01/22/2015 Inactive Keflex 500 mg capsule RxNorm: 319184 1 Capsule(s) PO TID 12/12/2014 12/11/2014 Inactive Keflex 500 mg capsule RxNorm: 902586 1 Capsule(s) PO TID 12/12/2014 12/17/2014 Inactive Augmentin 500 mg-125 mg tablet RxNorm: 302831 1 Tablet(s) PO BID 11/28/2014 12/02/2014 Inactive Augmentin 500 mg-125 mg tablet RxNorm: 754944 1 Tablet(s) PO BID 11/28/2014 11/27/2014 Inactive Cipro 500 mg tablet RxNorm: 473377 1 Tablet(s) PO BID 11/24/2014 11/27/2014 Inactive gabapentin 600 mg tablet RxNorm: 593093 1 Tablet(s) PO BID 11/17/2014 08/13/2015 Inactive gabapentin 600 mg tablet RxNorm: 645408 1 Tablet(s) PO BID 11/17/2014 11/16/2014 Inactive oxycodone 5 mg tablet RxNorm: 6921266 4 Tablet(s) PO daily 11/07/2014 02/04/2015 Inactive rx written Effexor XR 75 mg capsule,extended release RxNorm: 098376 3 Capsule(s) 225 PO QAM 11/05/2014 03/04/2015 Inactive clopidogrel 75 mg tablet RxNorm: 923853 1 Tablet(s) PO QAM 11/05/2014 01/28/2016 Inactive Effexor XR 75 mg capsule,extended release RxNorm: 596175 3 Capsule(s) 225 PO QAM 11/03/2014 11/04/2014 Inactive carvedilol 12.5 mg tablet RxNorm: 187682 1 Tablet(s) PO BID 10/28/2014 02/16/2015 Inactive Effexor XR 75 mg capsule,extended release RxNorm: 990854 3 Capsule(s) 225 PO QAM 10/28/2014 11/02/2014 Inactive Effexor XR 75 mg capsule,extended release RxNorm: 975217 3 Capsule(s) 225 PO QAM 10/28/2014 10/27/2014 Inactive carvedilol 12.5 mg tablet RxNorm: 243364 1 Tablet(s) PO BID 10/28/2014 10/27/2014 Inactive ceftriaxone 1 gram solution for injection RxNorm: 1905531 Inj 09/05/2014 09/05/2014 Inactive Cipro 500 mg tablet RxNorm: 203458 1 Tablet(s) PO BID 09/04/2014 09/03/2014 Inactive Cipro 500 mg tablet RxNorm: 993809 1 Tablet(s) PO BID 09/04/2014 09/10/2014 Inactive oxycodone 5 mg tablet RxNorm: 1444705 4 Tablet(s) PO daily 08/20/2014 11/06/2014 Inactive rx written lisinopril 40 mg tablet RxNorm: 541987 TAKE 1 TABLET BY MOUTH DAILY 08/18/2014 02/13/2015 Inactive nystatin 100,000 unit/mL oral suspension RxNorm: 395790 5 Milliliter(s) PO QID 07/04/2014 07/13/2014 Inactive [SAVINGS FOR NON-COVERED DRUGS -- [id number], PCN: [id number], Group: [id number], ID# [id number], Questions: . THIS IS NOT INSURANCE.] WelChol 3.75 gram oral powder packet RxNorm: 717638 1 PO BID No Start Date Active amlodipine 10 mg tablet RxNorm: 108068 1 Tablet(s) PO QAM No Start Date Active One A Day oral RxNorm: 74927 oral No Start Date Active Vitamin D2 400 unit capsule RxNorm: 674543 1 Capsule(s) PO daily No Start Date Active aspirin 81 mg tablet,delayed release RxNorm: 374811 1 Tablet(s) PO daily No Start Date Active melatonin 5 mg disintegrating tablet RxNorm: 2752612 1 Tablet(s) PO QHS No Start Date Active Miralax 17 gram/dose oral powder RxNorm: 503797 17 Gram(s) PO daily in prune juice No Start Date Active clonidine HCl 0.1 mg tablet RxNorm: 943930 1 Tablet(s) PO QHS No Start Date Active hydrochlorothiazide oral RxNorm: 5487 oral No Start Date Active Lasix oral RxNorm: 073592 oral No Start Date 02/17/2015 Inactive potassium chloride 20 meq RxNorm: 291536 PO daily No Start Date 03/22/2015 Inactive Zoloft 25 mg tablet RxNorm: 900729 1 Tablet(s) PO daily x 5 days then increase to 50mg daily No Start Date 07/10/2017 Inactive oxycodone 5 mg tablet RxNorm: 1862729 3-4 Tablet(s) PO QHS No Start Date 08/19/2014 Inactive terazosin 2 mg capsule RxNorm: 215972 1 Capsule(s) PO daily No Start Date 07/26/2015 Inactive Effexor XR 75 mg capsule,extended release RxNorm: 744741 3 Capsule(s) 225 PO QAM No Start Date 10/27/2014 Inactive gabapentin 600 mg tablet RxNorm: 843952 1 Tablet(s) PO BID No Start Date 11/16/2014 Inactive pantoprazole 40 mg tablet,delayed release RxNorm: 538220 oral No Start Date 12/21/2015 Inactive Anoro Ellipta 62.5 mcg-25 mcg/actuation powder for inhalation RxNorm: 6442715 1 INH daily No Start Date 04/16/2015 Inactive diclofenac sodium 75 mg tablet,delayed release RxNorm: 912928 1 Tablet(s) PO BID No Start Date 02/17/2015 Inactive clopidogrel 75 mg tablet RxNorm: 861239 1 Tablet(s) PO QAM No Start Date 11/04/2014 Inactive lisinopril 40 mg tablet RxNorm: 489868 1 Tablet(s) PO daily No Start Date 08/17/2014 Inactive carvedilol 12.5 mg tablet RxNorm: 535445 1 Tablet(s) PO BID No Start Date 10/27/2014 Inactive Medication Administered Medication Codes Instructions Start Date Status ceftriaxone 500 mg solution for injection RxNorm: 9955733 2Milliliter 05/22/2018 Active Kenalog 40 mg/mL suspension for injection RxNorm: 6826876 Milliliter 04/20/2018 No longer Active ceftriaxone 1 gram solution for injection RxNorm: 5902223 09/05/2014 No longer Active Immunizations Vaccine Codes Date Status Influenza CVX: 141 12/31/2014 completed Assessments Condition Codes Effective Dates Pneumonia due to other specified bacteria ICD-10: J15.8 ICD-9: 482.81 05/22/2018 Acute on chronic combined systolic (congestive) and diastolic (congestive) heart failure ICD-10: I50.43 ICD-9: 428.43 05/22/2018 Other acute sinusitis ICD-10: J01.80 ICD-9: 461.8 04/20/2018 Cough ICD-10: R05 ICD-9: 786.2 04/20/2018 Other allergic rhinitis ICD-10: J30.89 ICD-9: 477.8 04/20/2018 Dysuria ICD-10: R30.0 ICD-9: 788.1 12/14/2017 Other iron 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 ICD-9: 280.1 11/14/2017 Essential (primary) hypertension ICD-10: I10 ICD-9: 401.9 11/14/2017 Weakness ICD-10: R53.1 ICD-9: 780.79 11/14/2017 [...] Visit Reason For Visit Effective Dates Notes Hospital Follow Up 05/22/2018 sinus congestion 04/20/2018 [...] Observation Code Item Item Code Result Date Cbc With Differential Ord2 WBC 9.77 K/ul 05/22/2018 Cbc With Differential Ord2 RBC 3.21 M/ul 05/22/2018 Cbc With Differential Ord2 HGB 9.3 g/dl 05/22/2018 Cbc With Differential Ord2 HCT 29.9 % 05/22/2018 Cbc With Differential Ord2 Neut% 60.4 % 05/22/2018 Cbc With Differential Ord2 MCV 93.1 fl 05/22/2018 Cbc With Differential Ord2 Lymph% 20.6 % 05/22/2018 Cbc With Differential Ord2 [place]% 14.7 % 05/22/2018 Cbc With Differential Ord2 [...] 2.01 K/ul 05/22/2018 Cbc With Differential Ord2 [place] ABS# 1.4 K/ul 05/22/2018 Cbc With Differential Ord2 Eos ABS# 0.4 K/ul 05/22/2018 Cbc With Differential Ord2 Baso ABS# 0.0 K/ul 05/22/2018 Comp Metabolic Pce770 NA 136 mEq/L 05/22/2018 Comp Metabolic Cjb113 K 4.7 mEq/L 05/22/2018 Comp Metabolic Bkk177 CL 104 mEq/L 05/22/2018 Comp Metabolic Opc771 CO2 23.0 mEq/L 05/22/2018 Comp Metabolic Hnp948 ANION GAP 14 05/22/2018 Comp Metabolic Fpe064 GLUCOSE 113 mg/dL 05/22/2018 Comp Metabolic Tzh369 Creat 1.6 mg/dL 05/22/2018 Comp Metabolic Mrv223 eGFR 46 ml/min/1.73m2 05/22/2018 Comp Metabolic Ufc351 BUN 21 mg/dL 05/22/2018 Comp Metabolic Upz112 B/C Ratio 13.5 Ratio 05/22/2018 Comp Metabolic Wpt865 CALCIUM 8.6 mg/dL 05/22/2018 Comp Metabolic Amm178 ALK PHOS 84 U/L 05/22/2018 Comp Metabolic Spt014 AST(SGOT) 17 U/L 05/22/2018 Comp Metabolic Gvq779 ALT(SGPT) 22 U/L 05/22/2018 Comp Metabolic Eyk986 BILI T 0.5 mg/dL 05/22/2018 Comp Metabolic Bls485 ALBUMIN 3.4 g/dL 05/22/2018 Comp Metabolic Tpu927 TPRO 6.6 g/dL 05/22/2018 Comp Metabolic Vuy459 GLOB 3.2 g/dL 05/22/2018 Comp Metabolic Mzo371 A/G Ratio 1.0 Ratio 05/22/2018 Comp Metabolic Wet679 Osmo 276 mOsmo 05/22/2018 B Type Natriuretic Peptide Ely0677 B-ELECTROSLAG WELDING MACHINE OPERATOR 258.00 pg/ml 05/22/2018 Magnesium Ord90 Mag 2.3 mg/dL 05/22/2018 Urine Culture Ucult Complete >100,000 col/ml aerobic growth sent to ref lab 12/15/2017 Lipid Ord30 CHOL 128 mg/dL 11/14/2017 Lipid Ord30 HDL 24.0 mg/dl 11/14/2017 Lipid Ord30 TRIG 206 mg/dL 11/14/2017 Lipid Ord30 LDL 63 mg/dL 11/14/2017 Lipid Ord30 C/HDL 5.3 Ratio 11/14/2017 Tsh Ord6 TSH (3rd IS) 3.24 uIU/mL 11/14/2017 Comp Metabolic Wxt472 NA 137 mEq/L 11/14/2017 Comp Metabolic Iyf555 K 4.0 mEq/L 11/14/2017 Comp Metabolic Qox121 CL 104 mEq/L 11/14/2017 Comp Metabolic Qlw454 CO2 23.0 mEq/L 11/14/2017 Comp Metabolic Kea430 ANION GAP 14 11/14/2017 Comp Metabolic Swy467 GLUCOSE 101 mg/dL 11/14/2017 Comp Metabolic Qih597 Creat 1.1 mg/dL 11/14/2017 Comp Metabolic Moa492 eGFR 67 ml/min/1.73m2 11/14/2017 Comp Metabolic Jfm702 BUN 18 mg/dL 11/14/2017 Comp Metabolic Xpn373 B/C Ratio 15.9 Ratio 11/14/2017 Comp Metabolic Rgs697 CALCIUM 9.0 mg/dL 11/14/2017 Comp Metabolic Dez352 ALK PHOS 81 U/L 11/14/2017 Comp Metabolic Bhp930 AST(SGOT) 19 U/L 11/14/2017 Comp Metabolic Uec757 ALT(SGPT) 18 U/L 11/14/2017 Comp Metabolic Dul790 BILI T 0.3 mg/dL 11/14/2017 Comp Metabolic Alm202 ALBUMIN 3.8 g/dL 11/14/2017 Comp Metabolic Tjx942 TPRO 7.3 g/dL 11/14/2017 Comp Metabolic Ija513 GLOB 3.5 g/dL 11/14/2017 Comp Metabolic Soo846 A/G Ratio 1.1 Ratio 11/14/2017 Comp Metabolic Ztv452 Osmo 276 mOsmo 11/14/2017 Cbc With Differential [...] 29.9 pg 11/14/2017 Cbc With Differential Ord2 [place]% 11.2 % 11/14/2017 Cbc With Differential Ord2 [...] 1.85 K/ul 11/14/2017 Cbc With Differential Ord2 [place] ABS# 1.0 K/ul 11/14/2017 Cbc With Differential Ord2 Eos ABS# 0.6 K/ul 11/14/2017 Cbc With Differential Ord2 Baso ABS# 0.0 K/ul 11/14/2017 Culture Urine [id number] URINE CULTURE SEE NOTES 05/22/2017 Culture Urine [id number] Continued Results 05/22/2017 Urine Culture Ucult Complete >100,000 col/ml aerobic growth sent to ref lab 05/16/2017 Culture Urine [id number] URINE CULTURE SEE NOTES 04/21/2017 Urine Culture [...] 30.9 pg 03/30/2017 Cbc With Differential Ord2 [place]% 13.0 % 03/30/2017 Cbc With Differential Ord2 [...] 1.69 K/ul 03/30/2017 Cbc With Differential Ord2 [place] ABS# 0.9 K/ul 03/30/2017 Cbc With Differential Ord2 Eos ABS# 0.5 K/ul 03/30/2017 Cbc With Differential Ord2 Baso ABS# 0.0 K/ul 03/30/2017 %Hba1C Xom516 % HbA1c 97718- 6 5.8 % 03/30/2017 %Hba1C Uyn682 Gluc Ave 120 mg/dL 03/30/2017 Comp Metabolic Jtu074 NA 140 mEq/L 03/30/2017 Comp Metabolic Qnw301 K 4.0 mEq/L 03/30/2017 Comp Metabolic Sgi318 CL 105 mEq/L 03/30/2017 Comp Metabolic Pxg525 CO2 25.0 mEq/L 03/30/2017 Comp Metabolic Ump485 ANION GAP 14 03/30/2017 Comp Metabolic Foe508 GLUCOSE 108 mg/dL 03/30/2017 Comp Metabolic Qxi067 Creat 1.2 mg/dL 03/30/2017 Comp Metabolic Xvx591 eGFR 63 ml/min/1.73m2 03/30/2017 Comp Metabolic Emt861 BUN 20 mg/dL 03/30/2017 Comp Metabolic Wil316 B/C Ratio 16.9 Ratio 03/30/2017 Comp Metabolic Agt084 CALCIUM 9.2 mg/dL 03/30/2017 Comp Metabolic Vip166 ALK PHOS 83 U/L 03/30/2017 Comp Metabolic Ryd306 AST(SGOT) 17 U/L 03/30/2017 Comp Metabolic Txa094 ALT(SGPT) 19 U/L 03/30/2017 Comp Metabolic Yus528 BILI T 0.3 mg/dL 03/30/2017 Comp Metabolic Fkc320 ALBUMIN 3.9 g/dL 03/30/2017 Comp Metabolic Dxu860 TPRO 7.2 g/dL 03/30/2017 Comp Metabolic Zfw390 GLOB 3.3 g/dL 03/30/2017 Comp Metabolic Hwg153 A/G Ratio 1.2 Ratio 03/30/2017 Comp Metabolic Hex907 Osmo 283 mOsmo 03/30/2017 Tsh Ord6 TSH (3rd IS) 1.40 uIU/mL 03/30/2017 Clostridium Diff Tox A/B Hpz907 Cdiff Positive 06/03/2016 Total Psa PSA 1.53 [...] 31.2 pg 03/20/2015 Cbc With Differential Ord2 [place]% 12.8 % 03/20/2015 Cbc With Differential Ord2 [...] 1.69 K/ul 03/20/2015 Cbc With Differential Ord2 [place] ABS# 0.8 K/ul 03/20/2015 Cbc With Differential Ord2 Eos ABS# 0.6 K/ul 03/20/2015 Cbc With Differential Ord2 Baso ABS# 0.0 K/ul 03/20/2015 Cbc With Differential Ord2 New Analyzer Notice Please note new ref ranges starting 03-04-2015 due to implemntation of new five part differential hematolgy analyzer. 03/20/2015 Total Psa Ord10 PSA 2.25 ng/mL 02/26/2015 Comp Metabolic Aeu928 NA 138 mEq/L 02/26/2015 Comp Metabolic Axj977 K 4.0 mEq/L 02/26/2015 Comp Metabolic Djj174 CL 103 mEq/L 02/26/2015 Comp Metabolic Obm047 CO2 28.0 mEq/L 02/26/2015 Comp Metabolic Jez165 ANION GAP 11 02/26/2015 Comp Metabolic Bxg718 GLUCOSE 95 mg/dL 02/26/2015 Comp Metabolic Mbg315 Creat 1.0 mg/dL 02/26/2015 Comp Metabolic Eow084 eGFR 74 ml/min/1.73m2 02/26/2015 Comp Metabolic Pbb580 BUN 19 mg/dL 02/26/2015 Comp Metabolic Vgg206 B/C Ratio 18.3 Ratio 02/26/2015 Comp Metabolic Gjr046 CALCIUM 9.1 mg/dL 02/26/2015 Comp Metabolic Icx064 ALK PHOS 87 U/L 02/26/2015 Comp Metabolic Rtw663 AST(SGOT) 22 U/L 02/26/2015 Comp Metabolic Tkr624 ALT(SGPT) 24 U/L 02/26/2015 Comp Metabolic Tna204 BILI T 0.4 mg/dL 02/26/2015 Comp Metabolic Yox141 ALBUMIN 4.0 g/dL 02/26/2015 Comp Metabolic Mme843 TPRO 7.4 g/dL 02/26/2015 Comp Metabolic Ntz130 GLOB 3.4 g/dL 02/26/2015 Comp Metabolic Shs514 A/G Ratio 1.2 Ratio 02/26/2015 Comp Metabolic Owd415 Osmo 278 mOsmo 02/26/2015 Culture Urine [id number] URINE CULTURE SEE NOTES 12/15/2014 Culture Urine [id number] Continued Results 12/15/2014 Urine Culture Ucult Complete >100,000 col/ml aerobic growth sent to ref lab 12/12/2014 Comp Metabolic Uhc288 NA 136 mEq/L 12/05/2014 Comp Metabolic Qod866 K 4.3 mEq/L 12/05/2014 Comp Metabolic Qkw050 CL 104 mEq/L 12/05/2014 Comp Metabolic Fmx609 CO2 29.0 mEq/L 12/05/2014 Comp Metabolic Gxi503 ANION GAP 7 12/05/2014 Comp Metabolic Kdw951 GLUCOSE 80 mg/dL 12/05/2014 Comp Metabolic Yhi578 Creat 1.1 mg/dL 12/05/2014 Comp Metabolic Hym732 eGFR 68 ml/min/1.73m2 12/05/2014 Comp Metabolic Jch540 BUN 21 mg/dL 12/05/2014 Comp Metabolic Fzp061 B/C Ratio 18.8 Ratio 12/05/2014 Comp Metabolic Xyn141 CALCIUM 9.3 mg/dL 12/05/2014 Comp Metabolic Zut354 ALK PHOS 81 U/L 12/05/2014 Comp Metabolic Ddc003 AST(SGOT) 17 U/L 12/05/2014 Comp Metabolic Kiz218 ALT(SGPT) 16 U/L 12/05/2014 Comp Metabolic Xyk345 BILI T 0.3 mg/dL 12/05/2014 Comp Metabolic Qwh923 ALBUMIN 4.0 g/dL 12/05/2014 Comp Metabolic Rzv451 TPRO 6.9 g/dL 12/05/2014 Comp Metabolic Hpb177 GLOB 2.9 g/dL 12/05/2014 Comp Metabolic Vyr629 A/G Ratio 1.4 Ratio 12/05/2014 Comp Metabolic Djr753 Osmo 274 mOsmo 12/05/2014 Cbc With Differential [...] Ord2 RDW 15.0 % 12/05/2014 Culture Urine [id number] URINE CULTURE SEE NOTES 11/27/2014 Culture Urine [id number] Continued Results 11/27/2014 Urine Culture Ucult Complete Growth of aerobe sent to ref lab 11/25/2014 B Type Natriuretic Peptide Wdm5059 B-ELECTROSLAG WELDING MACHINE OPERATOR 121.00 pg/ml 10/08/2014 Cbc With Differential Ord2 [...] Folate Ord36 Folate 22.12 ng/mL 10/08/2014 B12 Ncn216 B12 >1500.00 pg/ml 10/08/2014 Comp Metabolic Abi140 NA 135 mEq/L 10/08/2014 Comp Metabolic Ecx254 K 4.5 mEq/L 10/08/2014 Comp Metabolic Wvb298 CL 104 mEq/L 10/08/2014 Comp Metabolic Ufh372 CO2 25.0 mEq/L 10/08/2014 Comp Metabolic Tah273 ANION GAP 11 10/08/2014 Comp Metabolic Irf870 GLUCOSE 73 mg/dL 10/08/2014 Comp Metabolic Fnd789 Creat 1.1 mg/dL 10/08/2014 Comp Metabolic Hef757 eGFR 71 ml/min/1.73m2 10/08/2014 Comp Metabolic Evf550 BUN 21 mg/dL 10/08/2014 Comp Metabolic Lih393 B/C Ratio 19.4 Ratio 10/08/2014 Comp Metabolic Ebf474 CALCIUM 9.0 mg/dL 10/08/2014 Comp Metabolic Ugz606 ALK PHOS 73 U/L 10/08/2014 Comp Metabolic Qvp129 AST(SGOT) 15 U/L 10/08/2014 Comp Metabolic Pyh367 ALT(SGPT) 14 U/L 10/08/2014 Comp Metabolic Bmp627 BILI T 0.4 mg/dL 10/08/2014 Comp Metabolic Eqd024 ALBUMIN 4.2 g/dL 10/08/2014 Comp Metabolic Hmi371 TPRO 7.1 g/dL 10/08/2014 Comp Metabolic Jhi231 GLOB 2.9 g/dL 10/08/2014 Comp Metabolic Eef268 A/G Ratio 1.4 Ratio 10/08/2014 Comp Metabolic Yfp510 Osmo 272 mOsmo 10/08/2014 B12 Qbj102 B12 554.00 pg/ml 09/16/2014 Tibc Ord40 Iron 108 ug/dl 09/16/2014 Tibc Ord40 UIBC 281 ug/dL 09/16/2014 Tibc Ord40 TIBC 389 ug/dL 09/16/2014 Tibc Ord40 Fe-%Sat 27.8 % 09/16/2014 Folate Ord36 Folate >23.20 ng/mL 09/16/2014 Comp Metabolic Auc912 NA 134 mEq/L 09/16/2014 Comp Metabolic Pkt405 K 4.6 mEq/L 09/16/2014 Comp Metabolic Ydf744 CL 103 mEq/L 09/16/2014 Comp Metabolic Gme618 CO2 25.0 mEq/L 09/16/2014 Comp Metabolic Ipv134 ANION GAP 11 09/16/2014 Comp Metabolic Fyn354 GLUCOSE 93 mg/dL 09/16/2014 Comp Metabolic Zni849 Creat 1.2 mg/dL 09/16/2014 Comp Metabolic Xom546 eGFR 65 ml/min/1.73m2 09/16/2014 Comp Metabolic Yxp919 BUN 23 mg/dL 09/16/2014 Comp Metabolic Zja638 B/C Ratio 19.8 Ratio 09/16/2014 Comp Metabolic Mru605 CALCIUM 9.1 mg/dL 09/16/2014 Comp Metabolic Kdi759 ALK PHOS 73 U/L 09/16/2014 Comp Metabolic Hgx470 AST(SGOT) 18 U/L 09/16/2014 Comp Metabolic Tkv398 ALT(SGPT) 16 U/L 09/16/2014 Comp Metabolic Xwa082 BILI T 0.4 mg/dL 09/16/2014 Comp Metabolic Jjl806 ALBUMIN 4.0 g/dL 09/16/2014 Comp Metabolic Nln572 TPRO 7.1 g/dL 09/16/2014 Comp Metabolic Urx185 GLOB 3.1 g/dL 09/16/2014 Comp Metabolic Uld156 A/G Ratio 1.3 Ratio 09/16/2014 Comp Metabolic Hgz786 Osmo 272 mOsmo 09/16/2014 Cbc With Differential [...] Ord22 FERRITIN 36.2 ng/mL 09/16/2014 Culture Urine [id number] URINE CULTURE SEE NOTES 09/08/2014 Urine Culture [...] Ord2 RDW 17.8 % 09/05/2014 Comp Metabolic Gei912 NA 133 mEq/L 09/05/2014 Comp Metabolic Ewa389 K 4.9 mEq/L 09/05/2014 Comp Metabolic Suj463 CL 99 mEq/L 09/05/2014 Comp Metabolic Usi703 CO2 26.0 mEq/L 09/05/2014 Comp Metabolic Mbc067 ANION GAP 13 09/05/2014 Comp Metabolic Ohe882 GLUCOSE 83 mg/dL 09/05/2014 Comp Metabolic Rci072 Creat 1.5 mg/dL 09/05/2014 Comp Metabolic Not167 eGFR 47 ml/min/1.73m2 09/05/2014 Comp Metabolic Lkj921 BUN 28 mg/dL 09/05/2014 Comp Metabolic Dez052 B/C Ratio 18.3 Ratio 09/05/2014 Comp Metabolic Cus496 CALCIUM 8.9 mg/dL 09/05/2014 Comp Metabolic Imn286 ALK PHOS 71 U/L 09/05/2014 Comp Metabolic Fya991 AST(SGOT) 18 U/L 09/05/2014 Comp Metabolic Aao379 ALT(SGPT) 29 U/L 09/05/2014 Comp Metabolic Kpg786 BILI T 0.6 mg/dL 09/05/2014 Comp Metabolic Xej035 ALBUMIN 3.8 g/dL 09/05/2014 Comp Metabolic Ttj858 TPRO 6.7 g/dL 09/05/2014 Comp Metabolic Zas821 GLOB 2.9 g/dL 09/05/2014 Comp Metabolic Cde932 A/G Ratio 1.3 Ratio 09/05/2014 Comp Metabolic Jle730 Osmo 271 mOsmo 09/05/2014 Total Psa Ord10 PSA 2.11 ng/mL 08/26/2014 Review of Systems System Result Effective Dates Constitutional recent illness 05/22/2018 Constitutional chills 05/22/2018 [...] time 08/15/2017 None Full Exam - General 1995 Constitutional general appearance Assistive Device: scooter 08/15/2017 [...] Procedure Codes Date THER/PROPH/DIAG INJ SC/IM CPT-4: 56098 05/22/2018 ROCEPHIN, PER 250 MG CPT- 4: J0696 05/22/2018 THER/PROPH/DIAG INJ SC/IM CPT-4: 63059 04/20/2018 TRIAMCINOLONE ACET INJ NOS CPT-4: J3301 04/20/2018 URINALYSIS NONAUTO W/O SCOPE CPT-4: 62089 12/14/2017 URINALYSIS NONAUTO W/O SCOPE CPT-4: 14189 05/15/2017 URINALYSIS NONAUTO W/O SCOPE CPT-4: 32024 09/18/2015 ADMIN INFLUENZA VIRUS VAC CPT-4: G0008 12/31/2014 FLU VACC PRSV FREE INC ANTIG Formatting Model/CDA Sections, Assigned to/[place] [employer] CPT-4: 05042Nmhfttq 12/31/2014 URINALYSIS NONAUTO W/O SCOPE CPT-4: 45431 12/10/2014 URINALYSIS NONAUTO W/O SCOPE CPT-4: 49493 11/24/2014 ROCEPHIN, PER 250 MG CPT- 4: J0696 09/05/2014 THER/PROPH/DIAG INJ SC/IM CPT-4: 23078 09/05/2014 URINALYSIS NONAUTO W/O SCOPE CPT-4: 93759 09/04/2014 Vital Signs Date Vital 05/22/2018 Blood Pressure 1: 108/44 Code: 8480-6 [...] 1: 138/60 Code: 8480-6 BMI: 37.2 Code: 63098-6 Heart Rate 1: 79 bpm Height: 5'9" SpO2: 91% Weight: 252 lbs 07/01/2016 Blood Pressure 1: 138/68 Code: 8480-6 BMI: 37.2 Code: 50775-8 Heart Rate 1: 69 bpm Height: 5'9" SpO2: 93% Weight: 252 lbs 05/05/2016 Blood Pressure 1: 136/78 Code: 8480-6 BMI: 39.3 Code: 97725-7 Heart Rate 1: 72 bpm Height: 5'9" SpO2: 97% Weight: 266 lbs 02/23/2016 Blood Pressure 1: 145/70 Code: 8480-6 BMI: 37.5 Code: 68664-2 Heart Rate 1: 80 bpm Height: 5'9" Weight: 254 lbs 09/16/2015 Blood Pressure 1: 140/62 Code: 8480-6 Heart Rate 1: 77 bpm Height: 5'9" SpO2: 93% Weight: 07/24/2015 Blood Pressure 1: 152/68 Code: 8480-6 BMI: 37.7 Code: 29361-5 Heart Rate 1: 73 bpm Height: 5'9" SpO2: 97% Weight: 255 lbs 03/20/2015 Blood Pressure 1: 146/74 Code: 8480-6 BMI: 38.1 Code: 30084-5 Heart Rate 1: 63 bpm Height: 5'9" Weight: 258 lbs 01/13/2015 Blood Pressure 1: 120/58 Code: 8480-6 Heart Rate 1: 52 bpm Height: 5'9" SpO2: 97% Temperature: 37.1 (C) / 98.7 (F) Weight: 12/05/2014 Blood Pressure 1: 134/54 Code: 8480-6 BMI: 36.3 Code: 32308-1 Heart Rate 1: 76 bpm Height: 5'9" SpO2: 93% Weight: 246 lbs 10/03/2014 Blood Pressure 1: 132/60 Code: 8480-6 Heart Rate 1: 76 bpm Height: SpO2: 95% Weight: 254 lbs 09/15/2014 Blood Pressure 1: 120/68 Code: 8480-6 BMI: 37.5 Code: 98796-8 Heart Rate 1: 76 bpm Height: 5'9" SpO2: 93% Weight: 254 lbs 09/05/2014 Blood Pressure 1: 110/50 Code: 8480-6 BMI: 37.4 Code: 48951-9 Heart Rate 1: 79 bpm Height: 5'9" SpO2: 96% Temperature: 36.3 (C) / 97.4 (F) Weight: 253 lbs 07/04/2014 Blood Pressure 1: 138/72 Code: 8480-6 BMI: 37.1 Code: 87617-0 Heart Rate 1: 72 bpm Height: 5'9" SpO2: 93% Weight: 251 lbs Functional Status No Functional Status data History of Present Illness Symptom Name Status Result Effective Date Notes _ Other: CHF 05/22/2018 None _ pneumonia [...] discomfort 12/05/2014 occasional ache in chest- seeing campground manager in [place]- doing heart cath in [...] discomfort 10/03/2014 occasional ache in chest- seeing campground manager in [place]- doing heart cath in [...] data Encounters Encounter Performer Location Codes Date 24301 EST. PATIENT, LEVEL III Diagnosis: Acute on chronic combined systolic (congestive) and diastolic (congestive) heart failure[ICD10: I50.43] Diagnosis: Pneumonia due to other specified bacteria[ICD10: J15.8] Mary Aburto MD, [facility] CPT-4: 99703 05/22/2018 94791 EST. PATIENT, LEVEL III Diagnosis: Other acute sinusitis[ICD10: J01.80] Diagnosis: Other allergic rhinitis[ICD10: J30.89] Diagnosis: Cough[ICD10: R05] Mary Aburto MD, [facility] CPT-4: 69445 04/20/2018 ([id number]) 50226 EST. PATIENT, LEVEL IV Diagnosis: Essential (primary) hypertension[ICD10: I10] Diagnosis: Other iron deficiency anemias[ICD10: D50.8] Diagnosis: Weakness[ICD10: R53.1] Darleen Aburto MD, [facility] CPT-4: 07514 11/14/2017 48058 EST. PATIENT, LEVEL IV Diagnosis: Other lesions of oral mucosa[ICD10: K13.79] Diagnosis: Candidal stomatitis[ICD10: B37.0] Diagnosis: Generalized anxiety disorder[ICD10: F41.1] Diagnosis: Major depressive disorder, single episode, moderate[ICD10: F32.1] [facility] CPT-4: 29570 08/15/2017 22548 EST. PATIENT, LEVEL III Diagnosis: Generalized anxiety disorder[ICD10: F41.1] Diagnosis: Cauda equina syndrome[ICD10: G83.4] Diagnosis: Major depressive disorder, single episode, moderate[ICD10: F32.1] [facility] CPT-4: 24765 06/29/2017 77550 EST. PATIENT, LEVEL IV Diagnosis: Dysuria[ICD10: R30.0] Diagnosis: Other malaise[ICD10: R53.81] Diagnosis: Cauda equina syndrome[ICD10: G83.4] Diagnosis: Weakness[ICD10: R53.1] Mary Aburto MD, [facility] CPT-4: 07805 03/30/2017 ([id number]) 69768 EST. PATIENT, LEVEL III Diagnosis: Cough[ICD10: R05] Diagnosis: Enterocolitis due to Clostridium difficile[ICD10: A04.7] Kavya Aburto MD, [facility] CPT-4: 61242 10/07/2016 ([id number]) 07564 EST. 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 PATIENT, LEVEL III Diagnosis: Cauda equina syndrome[ICD10: G83.4] Diagnosis: Irritable bowel syndrome with diarrhea[ICD10: K58.0] Mary Aburto MD, [facility] CPT-4: 01331 05/05/2016 38420 EST. PATIENT, LEVEL III Diagnosis: Pain in right shoulder[ICD10: M25.511] Diagnosis: Weakness[ICD10: R53.1] Diagnosis: Shortness of breath[ICD10: R06.02] Mary Aburto MD, [facility] CPT-4: 34449 02/23/2016 [id number] EST. PATIENT, LEVEL III Diagnosis: Essential (primary) hypertension[ICD10: I10] Diagnosis: Other insomnia[ICD10: G47.09] Diagnosis: Irritable bowel syndrome with diarrhea[ICD10: K58.0] Diagnosis: Shortness of breath[ICD10: R06.02] Diagnosis: Weakness[ICD10: R53.1] Mary Aburto MD, [facility] CPT-4: 17495 09/16/2015 00734 EST. PATIENT, LEVEL III Diagnosis: Diarrhea, unspecified[ICD10: R19.7] Diagnosis: Nausea[ICD10: R11.0] Mary Aburto MD, [facility] CPT-4: 36328 07/24/2015 38665 EST. PATIENT, LEVEL IV Diagnosis: Other iron deficiency anemias[ICD10: D50.8] Diagnosis: Rash and other nonspecific skin eruption[ICD10: R21] Diagnosis: Cauda equina syndrome[ICD10: G83.4] Diagnosis: Essential (primary) hypertension[ICD10: I10] Diagnosis: Other pruritus[ICD10: L29.8] Diagnosis: Shortness of breath[ICD10: R06.02] Mary Aburto MD, [facility] CPT-4: 43584 03/20/2015 05450 EST. PATIENT, LEVEL IV Diagnosis: Urinary tract infection, site not specified[ICD10: N39.0] Diagnosis: Umbilical hernia without obstruction or gangrene[ICD10: K42.9] Diagnosis: Cauda equina syndrome[ICD10: G83.4] Mary Aburto MD, [facility] CPT- 4: 33809 01/13/2015 ([id number]) 98175 EST. PATIENT, LEVEL IV Diagnosis: Iron deficiency anemia, unspecified[ICD10: D50.9] Diagnosis: Essential (primary) hypertension[ICD10: I10] Diagnosis: Hematuria, unspecified[ICD10: R31.9] Kavya Aburto MD, [facility] CPT-4: 91183 12/05/2014 ([id number]) 79321 EST. PATIENT, LEVEL IV Diagnosis: ESSENTIAL HYPERTENSION[ICD9: 401.9] Diagnosis: COPD (chronic obstructive pulmonary disease)[ICD9: 496] Diagnosis: ANEMIA[ICD9: 285.9] Diagnosis: SHORTNESS OF BREATH[ICD9: 786.05] Kavya Aburto MD, [facility] CPT- 4: 50070 10/03/2014 ([id number]) 58346 EST. PATIENT, LEVEL IV Diagnosis: ESSENTIAL HYPERTENSION[ICD9: 401.9] Diagnosis: ANEMIA[ICD9: 285.9] Diagnosis: MALAISE AND FATIGUE[ICD9: 780.79] [facility] CPT- 4: 41083 09/15/2014 ([id number]) 67372 EST. PATIENT, LEVEL III Diagnosis: UTI[ICD9: 599.0] Diagnosis: Chronic back pain[ICD9: 724.5] [facility] CPT-4: 74225 09/05/2014 ([id number]) OFFICE VISIT, NEW - LEVEL 4 Diagnosis: ESSENTIAL HYPERTENSION[ICD9: 401.9] Diagnosis: THRUSH[ICD9: 112.0] Diagnosis: Hyperlipidemia[ICD9: 272.4] Diagnosis: COPD (chronic obstructive pulmonary disease)[ICD9: 496] Diagnosis: Cauda equina syndrome[ICD9: 344.60] Diagnosis: History of prostate cancer[ICD9: V10.46] [facility] CPT-4: 98864 07/04/2014 Plan of Care Planned Activity Notes Codes Status Date Visit Plan: Dr. Aburto in to evaluate [...] [place], will order continuous home O2. 05/22/2018 Patient Education: Patient Medication Summary Completed [...] allergy spray. 04/20/2018 Appointment: [facility]el[facility] (15 min) Moderate 04/20/2018 Patient Education: Patient Medication Summary Completed 04/20/2018 Appointment: Lab Draw 12/14/2017 Patient Education: Patient Medication Summary Completed 12/14/2017 Appointment: Dar[facility]Ptel[facility] (15 min) Moderate 11/28/2017 Visit Plan: Hypertension [...] report. 11/14/2017 Appointment: [phone] [facility] (15 min) Moderate 11/14/2017 Patient Education: [...] prescribed for this patient. 08/15/2017 App[facility]ment[phone] [facility] (30 min) [facility] 08/15/2017 Patient Education: Patient Medication Summary Completed 08/15/2017 Appointment: [facility]el[phone] [facility] [place] (15 min) Moderate 08/08/2017 Appointment: Mary Alan WPtel: [facility] (15 min) Moderate 08/03/2017 Visit Plan: Cauda [...] pain symptoms. 06/29/2017 Appointment: Mary Alan WPtel: [facility]5 [facility] (15 min) Moderate 06/29/2017 Patient Education: Patient [...] not improve. 03/30/2017 Appointment: Mary Alan WPtel[facility] [place] (30 min) Complex 03/30/2017 Patient Education: Patient Medication Summary Completed 03/30/2017 Visit Plan: Cough-suspect virus-patient to monitor over the weekend-call Monday if symptoms persist and we will do a chest xray and sputum culture Cdiff-treat with flagyl as directed-call if symptoms do not resolve 10/07/2016 Appointment: Kavya Subramanian WPtel: [phone] (30 min) Complex 10/07/2016 Patient Education: Patient Medication Summary Completed 10/07/2016 Patient Education: Obesity Completed 10/07/2016 Visit Plan: Cauda equina-chronic back pain-generalized weakness- right shoulder pain/weakness-patient to contact juan [place] for mobility paperwork-will ask PT to do a mobility exam through [facility] Drug induced constipation-rx for movantik. 07/01/2016 Visit Plan: Cauda equina-chronic back pain-generalized weakness- bilateral shoulder pain/weakness-OA knees-patient to contact [facility] for mobility paperwork-will ask PT to do a mobility exam through [facility]. Patient is non ambulatory due [...] for movantik. 07/01/2016 Appointment: Kavya Subramanian WPtel: [facility]5 [phone] (30 min) Complex 07/01/2016 Patient Education: Patient [...] his surgery. 05/05/2016 Appointment: Mary Alan WPtel: [facility] [facility]ance 05/05/2016 Patient Education: [...] godoy. 02/23/2016 Appointment: [facility] Alan [facility]Ptel[phone] [facility] [place] (30 min) Complex 02/23/2016 Patient Education: Patient Medication Summary Completed 02/23/2016 Appointment: [facility]Ptel[facility] [phone] [facility] [place] (30 min) Complex 02/19/2016 Appointment: [phone] [facility] (15 min) Moderate 10/14/2015 Appointment: Lab [...] having loose bowel movements. Keep appointment with [employer] Operator Make an appointment with campground manager - to follow up on shortness of breath. Weakness - pt is to contact Juan Godoy in [facility] and Call clinic when he is [...] not improved. 07/24/2015 Appointment: Kavya Subramanian WPtel: [address] [place], [place] [address] (30 min) Complex 07/24/2015 Patient Education: Patient [...] and hypertension. 09/15/2014 Appointment: Darleen Aburto WPtel: [facility] (15 min) Moderate 09/15/2014 Patient [...] equina-increased incontinence of bowels-recommend follow up with patient account specialist-will discuss repeat MRI with Dr Aburto-keep [...] Patient Education: Hypertension Completed 07/04/2014 Instructions Comment [employer] Katia to do PT evaluation for motorized wheelchair through [employer] . Cauda equina-chronic back pain-generalized weakness-right shoulder pain/weakness- patient to contact [employer] for mobility paperwork-will ask PT to do a mobility exam through [employer] Drug induced constipation-rx for movantik. [employer] Cyr to do PT evaluation for motorized wheelchair through [employer] . Cauda equina-chronic back pain-generalized weakness-bilateral shoulder pain/weakness- OA knees-patient to contact [employer] for mobility paperwork-will ask PT to do a mobility exam through [employer]. Patient is non ambulatory due to cauda [...] incontinence of bowels- recommend follow up with patient account specialist-will discuss repeat MRI with Dr Aburto-keep [...] (start tomorrow) let us know what your campground manager says at your appointment chest x-ray [...] Peng 4. Make an appointment with your campground manager - to follow up on shortness of breath. 5. Call us when you here about the mobility paperwork and we will fill out the paperwork. Juan Godoy in [facility] . Hypertension - The patient has [...] having loose bowel movements. Keep appointment with [employer] Make an appointment with campground manager - to follow up on shortness of breath. Weakness - pt is to contact Juan Goldman Fercho in [facility] and Call clinic when he is [...] is to follow up after his surgery. Decrease effexor to 2 pills daily x 3 days, then 1 pill daily x 1 week and start Cymbalta daily x 1 week, then stop Effexor and increase Cymbalta to 2 pills daily. Will consult Tiffany Bullard [place] PT. Cauda Equina - stable - continue [...]
--- OUTSIDE RECORDS SUMMARY | 2018-07-19 09:28 | XMS REPORT | CCD ---
Author Author Kavya Subramanian Organization [facility] Address [address] [place] [address] Phone Care Team Providers Care Procurement Engineer Name Role Phone PP Unavailable CCM Unavailable Summary Purpose Interface Exchange Insurance Providers Payer name Policy type / Coverage type Covered libertarian ID Effective Begin Date Effective End Date WPS Medicare Part B Commercial Insurance [id number] Unknown Unknown [employer]ALTH[employer]ICE Commercial Insurance [id number] Unknown Unknown Family history Father Diagnosis Age At Onset Coronary Artery Disease Unknown Mother Diagnosis Age At Onset Arthritis Unknown Sister Diagnosis Age At Onset Alzheimer's Disease Unknown Social History Social History Element Codes Description Effective Dates Marital status Unknown 07/04/2014 Number of children Unknown 2 07/04/2014 Living arrangements Unknown House 07/04/[address]: 3717352 Quit over 10 years ago 07/04/2014 Alcohol history Unknown occasionally drinks alcohol 07/04/2014 Frequency of drinks SNOMED CT: 009789760 Drinks rarely 07/04/2014 Allergies, Adverse Reactions, Alerts Substance Reaction Codes Entered Date Inactivated Date Status * NO KNOWN FOOD ALLERGIES Unknown 07/04/2014 No Inactive Date Active Iodine rash, pruritis, RxNorm: 5933 03/04/2015 No Inactive Date Active tramadol pruritis RxNorm: 45328 07/04/2014 No Inactive Date Active Past Medical [...] Fill Instructions cefdinir 300 mg capsule RxNorm: 624560 1 Capsule(s) PO BID 05/22/2018 05/31/2018 Active Zithromax Z-Wni 250 mg tablet RxNorm: 874562 Tablet(s) PO UD 05/22/2018 No Stop Date Active ceftriaxone 500 mg solution for injection RxNorm: 5383532 2 Milliliter(s) Inj 05/22/2018 05/22/2018 Inactive albuterol sulfate 2.5 mg/3 mL (0.083 %) solution for nebulization RxNorm: 404439 3 Milliliter(s) INH UD 05/22/2018 No Stop Date Active diclofenac sodium 75 mg tablet,delayed release RxNorm: 505148 1 TABLET(S) PO BID 05/14/2018 02/07/2019 Active gabapentin 600 mg tablet RxNorm: 402387 TABLET(S) TAKE 1 TABLET BY MOUTH TWICE DAILY 04/23/2018 04/17/2019 Active prednisone 20 mg tablet RxNorm: 308215 2 Tablet(s) PO daily 04/20/2018 04/24/2018 Inactive Kenalog 40 mg/mL suspension for injection RxNorm: 2503439 Milliliter(s) Inj 04/20/2018 04/20/2018 Inactive Augmentin 500 mg-125 mg tablet RxNorm: 287214 1 Tablet(s) PO TID 04/20/2018 04/26/2018 Inactive oxycodone 5 mg tablet RxNorm: 1062063 4 Tablet(s) PO daily 04/12/2018 06/25/2018 Active potassium chloride ER 20 mEq tablet,extended release RxNorm: 786892 1 TABLET(S) PO DAILY 03/09/2018 03/03/2019 Active oxycodone 5 mg tablet RxNorm: 0174030 4 Tablet(s) PO daily 01/18/2018 04/02/2018 Inactive Augmentin 500 mg-125 mg tablet RxNorm: 677969 1 Tablet(s) PO TID 12/14/2017 12/23/2017 Inactive take probiotic bid x 10 days pantoprazole 40 mg tablet,delayed release RxNorm: 113950 TAKE 1 TABLET BY MOUTH DAILY 12/11/2017 12/05/2018 Active Augmentin 500 mg-125 mg tablet RxNorm: 769446 1 Tablet(s) PO TID 11/17/2017 11/22/2017 Inactive take probiotic bid x 7 days lisinopril 40 mg tablet RxNorm: 047072 TAKE 1 TABLET BY MOUTH DAILY 11/06/2017 08/02/2018 Active oxycodone 5 mg tablet RxNorm: 8640188 4 Tablet(s) PO daily 10/16/2017 12/29/2017 Inactive Cymbalta 30 mg capsule,delayed release RxNorm: 958203 2 Capsule(s) PO daily 08/17/2017 02/12/2018 Inactive Zoloft 25 mg tablet RxNorm: 447794 1 TABLET(S) PO DAILY X 5 DAYS THEN INCREASE TO 50MG DAILY 08/16/2017 No Stop Date Active Cymbalta 30 mg capsule,delayed release RxNorm: 907426 1 Capsule(s) PO 1 CAPSULE(S) PO DAILY X 1 WEEK, THEN INCREASE TO 2 DAILY 08/15/2017 08/16/2017 Inactive Patient requests 90 days supply diclofenac sodium 75 mg tablet,delayed release RxNorm: 940192 1 TABLET(S) PO BID 08/14/2017 05/10/2018 Inactive oxycodone 5 mg tablet RxNorm: 4280665 4 Tablet(s) PO daily 08/01/2017 10/14/2017 Inactive valacyclovir 1 gram tablet RxNorm: 313910 1 Tablet(s) PO TID 07/12/2017 07/11/2017 Inactive Zoloft 50 mg tablet RxNorm: 374682 1 Tablet(s) PO daily 07/12/2017 08/01/2017 Inactive valacyclovir 1 gram tablet RxNorm: 537798 1 Tablet(s) PO TID 07/12/2017 07/18/2017 Inactive Zoloft 50 mg tablet RxNorm: 008600 1 Tablet(s) PO daily 07/12/2017 07/11/2017 Inactive Zoloft 25 mg tablet RxNorm: 212507 1 Tablet(s) PO daily x 5 days then increase to 50mg daily 07/11/2017 07/11/2017 Inactive Cymbalta 30 mg capsule,delayed release RxNorm: 593565 1 Capsule(s) PO daily x 1 week, then increase to 2 daily 06/30/2017 06/29/2017 Inactive Cymbalta 30 mg capsule,delayed release RxNorm: 430271 1 CAPSULE(S) PO DAILY X 1 WEEK, THEN INCREASE TO 2 DAILY 06/30/2017 07/04/2017 Inactive Patient requests 90 days supply Augmentin 875 mg-125 mg tablet RxNorm: 653462 1 Tablet(s) PO BID 05/22/2017 05/28/2017 Inactive Probiotic QID while on antibiotics Bactrim DS 800 mg-160 mg tablet RxNorm: 756282 1 Tablet(s) PO BID 05/22/2017 05/21/2017 Inactive Probiotic QID while on antibiotics Bactrim DS 800 mg-160 mg tablet RxNorm: 693641 1 Tablet(s) PO BID 05/22/2017 05/28/2017 Inactive Probiotic QID while on antibiotics Augmentin 875 mg-125 mg tablet RxNorm: 926260 1 Tablet(s) PO BID 05/22/2017 05/21/2017 Inactive Probiotic QID while on antibiotics Cipro 500 mg tablet RxNorm: 465044 1 Tablet(s) PO BID 04/21/2017 04/30/2017 Inactive Take probiotic while on ABT Cipro 500 mg tablet RxNorm: 960879 1 Tablet(s) PO BID 04/21/2017 04/20/2017 Inactive Diflucan 150 mg tablet RxNorm: 328216 1 Tablet(s) PO daily 04/19/2017 11/13/2017 Inactive Diflucan 150 mg tablet RxNorm: 710638 1 Tablet(s) PO daily 04/19/2017 04/18/2017 Inactive oxycodone 5 mg tablet RxNorm: 6483015 4 Tablet(s) PO daily 04/17/2017 06/30/2017 Inactive gabapentin 600 mg tablet RxNorm: 971338 TABLET(S) TAKE 1 TABLET BY MOUTH TWICE DAILY 04/14/2017 04/08/2018 Inactive Rocephin 1 gram solution for injection RxNorm: 048480 1 Inj daily 04/05/2017 04/11/2017 Inactive Rocephin 1 gram solution for injection RxNorm: 163760 1 Inj daily 04/04/2017 04/04/2017 Inactive lidocaine (PF) 10 mg/mL (1 %) injection solution RxNorm: 4180033 1 Milliliter(s) Inj daily 04/04/2017 04/10/2017 Inactive Use to administer rocephin lidocaine (PF) 10 mg/mL (1 %) injection solution RxNorm: 5478401 1 Milliliter(s) Inj daily 04/04/2017 04/03/2017 Inactive Use to administer rocephin Rocephin 1 gram solution for injection RxNorm: 912316 1 Inj daily 04/04/2017 04/03/2017 Inactive Augmentin 500 mg-125 mg tablet RxNorm: 362146 1 Tablet(s) PO TID 03/31/2017 04/03/2017 Inactive Augmentin 500 mg-125 mg tablet RxNorm: 483748 1 Tablet(s) PO TID 03/31/2017 03/30/2017 Inactive Effexor XR 75 mg capsule,extended release RxNorm: 341134 TAKE 3 CAPSULES BY MOUTH EVERY MORNING 03/24/2017 11/13/2017 Inactive potassium chloride ER 20 mEq tablet,extended release RxNorm: 455951 1 TABLET(S) PO DAILY 03/13/2017 03/07/2018 Inactive lisinopril 40 mg tablet RxNorm: 012584 TAKE 1 TABLET BY MOUTH DAILY 02/06/2017 11/02/2017 Inactive pantoprazole 40 mg tablet,delayed release RxNorm: 334894 TAKE 1 TABLET BY MOUTH DAILY 12/19/2016 12/10/2017 Inactive oxycodone 5 mg tablet RxNorm: 6638826 4 Tablet(s) PO daily 12/19/2016 03/03/2017 Inactive diclofenac sodium 75 mg tablet,delayed release RxNorm: 813939 1 TABLET(S) PO BID 11/17/2016 08/13/2017 Inactive gabapentin 600 mg tablet RxNorm: 943092 TABLET(S) TAKE 1 TABLET BY MOUTH TWICE DAILY 10/14/2016 04/11/2017 Inactive Flagyl 500 mg tablet RxNorm: 805245 1 Tablet(s) PO TID 10/07/2016 10/16/2016 Inactive oxycodone 5 mg tablet RxNorm: 2355545 4 Tablet(s) PO daily 10/03/2016 12/16/2016 Inactive Effexor XR 75 mg capsule,extended release RxNorm: 311782 TAKE 3 CAPSULES BY MOUTH EVERY MORNING 09/22/2016 11/20/2016 Inactive Patient requests 90 days supply lisinopril 40 mg tablet RxNorm: 349736 TAKE 1 TABLET BY MOUTH DAILY 08/01/2016 01/27/2017 Inactive Effexor XR 75 mg capsule,extended release RxNorm: 579780 TAKE 3 CAPSULES BY MOUTH EVERY MORNING 07/21/2016 09/21/2016 Inactive oxycodone 5 mg tablet RxNorm: 8989621 4 Tablet(s) PO daily 07/11/2016 09/23/2016 Inactive Movantik 25 mg tablet RxNorm: 7370496 1 Tablet(s) PO daily 07/01/2016 11/13/2017 Inactive potassium chloride ER 20 mEq tablet,extended release RxNorm: 773650 1 TABLET(S) PO DAILY 06/14/2016 03/10/2017 Inactive Flagyl 500 mg tablet RxNorm: 447097 1 Tablet(s) PO TID 06/03/2016 06/12/2016 Inactive Flagyl 500 mg tablet RxNorm: 805032 1 Tablet(s) PO TID 06/03/2016 06/02/2016 Inactive oxycodone 5 mg tablet RxNorm: 0240493 4 Tablet(s) PO daily 04/27/2016 07/10/2016 Inactive Tamiflu 75 mg capsule RxNorm: 496982 1 Capsule(s) PO daily 04/19/2016 04/28/2016 Inactive Tamiflu 75 mg capsule RxNorm: 381016 1 Capsule(s) PO daily 04/19/2016 04/18/2016 Inactive Effexor XR 75 mg capsule,extended release RxNorm: 583758 TAKE 3 CAPSULES BY MOUTH EVERY MORNING 02/18/2016 04/17/2016 Inactive diclofenac sodium 75 mg tablet,delayed release RxNorm: 148539 1 TABLET(S) PO BID 02/18/2016 11/13/2016 Inactive Effexor XR 75 mg capsule,extended release RxNorm: 318882 Capsule(s) TAKE 3 CAPSULES BY MOUTH EVERY MORNING 02/17/2016 08/14/2016 Inactive oxycodone 5 mg tablet RxNorm: 7455753 4 Tablet(s) PO daily 02/04/2016 04/26/2016 Inactive clopidogrel 75 mg tablet RxNorm: 340087 1 TABLET(S) PO QAM 02/01/2016 01/25/2017 Inactive gabapentin 600 mg tablet RxNorm: 982376 Tablet(s) TAKE 1 TABLET BY MOUTH TWICE DAILY 02/01/2016 10/13/2016 Inactive Effexor XR 75 mg capsule,extended release RxNorm: 530779 TAKE 3 CAPSULES BY MOUTH EVERY MORNING 01/11/2016 02/09/2016 Inactive pantoprazole 40 mg tablet,delayed release RxNorm: 796283 TAKE 1 TABLET BY MOUTH DAILY 12/22/2015 12/15/2016 Inactive Effexor XR 75 mg capsule,extended release RxNorm: 675240 TAKE 3 CAPSULES BY MOUTH EVERY MORNING 11/16/2015 01/14/2016 Inactive lisinopril 40 mg tablet RxNorm: 643509 TAKE 1 TABLET BY MOUTH DAILY 11/05/2015 07/31/2016 Inactive Effexor XR 75 mg capsule,extended release RxNorm: 028338 TAKE 3 CAPSULES BY MOUTH EVERY MORNING 09/22/2015 11/20/2015 Inactive Augmentin 500 mg-125 mg tablet RxNorm: 159545 1 Tablet(s) PO TID 09/18/2015 09/24/2015 Inactive Anoro Ellipta 62.5 mcg-25 mcg/actuation powder for inhalation RxNorm: 8867229 1 INH daily 08/20/2015 02/15/2016 Inactive Anoro Ellipta 62.5 mcg-25 mcg/actuation powder for inhalation RxNorm: 4314292 1 INH DAILY 08/20/2015 11/13/2017 Inactive lisinopril 40 mg tablet RxNorm: 953537 TAKE 1 TABLET BY MOUTH DAILY 08/10/2015 11/04/2015 Inactive gabapentin 600 mg tablet RxNorm: 283533 TAKE 1 TABLET BY MOUTH TWICE DAILY 08/10/2015 01/31/2016 Inactive terazosin 2 mg capsule RxNorm: 809711 TAKE ONE CAPSULE BY MOUTH EVERY DAY 07/27/2015 08/29/2016 Inactive hyoscyamine 0.125 mg sublingual tablet RxNorm: 2672061 1 Tablet(s) SL TID as needed 07/24/2015 08/02/2015 Inactive metronidazole 500 mg tablet RxNorm: 256163 1 Tablet(s) PO TID 07/24/2015 07/30/2015 Inactive Effexor XR 75 mg capsule,extended release RxNorm: 519384 TAKE 3 CAPSULES BY MOUTH EVERY MORNING 07/23/2015 09/20/2015 Inactive oxycodone 5 mg tablet RxNorm: 4119112 4 Tablet(s) PO daily 06/26/2015 02/03/2016 Inactive potassium chloride ER 20 mEq tablet,extended release RxNorm: 370258 1 Tablet(s) PO daily 06/25/2015 06/13/2016 Inactive oxycodone 5 mg tablet RxNorm: 0979261 4 Tablet(s) PO daily 04/17/2015 06/25/2015 Inactive rx written Anoro Ellipta 62.5 mcg-25 mcg/actuation powder for inhalation RxNorm: 9016779 1 INH daily 04/17/2015 08/19/2015 Inactive potassium chloride ER 20 mEq tablet,extended release RxNorm: 320664 1 Tablet(s) PO daily 03/23/2015 06/24/2015 Inactive triamcinolone acetonide 0.1 % topical cream RxNorm: 4166588 1 Application TOP BID 03/20/2015 No Stop Date Active carvedilol 12.5 mg tablet RxNorm: 713397 1 TABLET(S) PO BID 02/23/2015 08/21/2015 Inactive diclofenac sodium 75 mg tablet,delayed release RxNorm: 135909 1 Tablet(s) PO BID 02/18/2015 02/12/2016 Inactive carvedilol 12.5 mg tablet RxNorm: 198906 1 Tablet(s) PO BID 02/17/2015 02/11/2016 Inactive furosemide 40 mg tablet RxNorm: 020603 1 Tablet(s) PO daily 02/17/2015 02/11/2016 Inactive lisinopril 40 mg tablet RxNorm: 714562 TAKE 1 TABLET BY MOUTH DAILY 02/16/2015 08/09/2015 Inactive ceftriaxone 1 gram solution for injection RxNorm: 9818994 1 Gram(s) Inj daily mix with lidocaine 01/14/2015 01/17/2015 Inactive please supply 4 bottles of 1gram rocephin IM with 1 bottle of lidocaine 1% for home health to administer to pt starting 01/15 ceftriaxone 1 gram solution for injection RxNorm: 3322475 1 Gram(s) Inj daily 01/14/2015 01/13/2015 Inactive please supply 4 bottles of 1gram rocephin IM with 1 bottle of lidocaine 1% for home health to administer to pt starting 01/15 Augmentin 500 mg-125 mg tablet RxNorm: 418459 1 Tablet(s) PO BID 01/13/2015 01/22/2015 Inactive Keflex 500 mg capsule RxNorm: 444028 1 Capsule(s) PO TID 12/12/2014 12/11/2014 Inactive Keflex 500 mg capsule RxNorm: 316187 1 Capsule(s) PO TID 12/12/2014 12/17/2014 Inactive Augmentin 500 mg-125 mg tablet RxNorm: 776386 1 Tablet(s) PO BID 11/28/2014 12/02/2014 Inactive Augmentin 500 mg-125 mg tablet RxNorm: 015945 1 Tablet(s) PO BID 11/28/2014 11/27/2014 Inactive Cipro 500 mg tablet RxNorm: 742352 1 Tablet(s) PO BID 11/24/2014 11/27/2014 Inactive gabapentin 600 mg tablet RxNorm: 520955 1 Tablet(s) PO BID 11/17/2014 08/13/2015 Inactive gabapentin 600 mg tablet RxNorm: 673658 1 Tablet(s) PO BID 11/17/2014 11/16/2014 Inactive oxycodone 5 mg tablet RxNorm: 6460551 4 Tablet(s) PO daily 11/07/2014 02/04/2015 Inactive rx written Effexor XR 75 mg capsule,extended release RxNorm: 144953 3 Capsule(s) 225 PO QAM 11/05/2014 03/04/2015 Inactive clopidogrel 75 mg tablet RxNorm: 249605 1 Tablet(s) PO QAM 11/05/2014 01/28/2016 Inactive Effexor XR 75 mg capsule,extended release RxNorm: 700807 3 Capsule(s) 225 PO QAM 11/03/2014 11/04/2014 Inactive carvedilol 12.5 mg tablet RxNorm: 537802 1 Tablet(s) PO BID 10/28/2014 02/16/2015 Inactive Effexor XR 75 mg capsule,extended release RxNorm: 541790 3 Capsule(s) 225 PO QAM 10/28/2014 11/02/2014 Inactive Effexor XR 75 mg capsule,extended release RxNorm: 262789 3 Capsule(s) 225 PO QAM 10/28/2014 10/27/2014 Inactive carvedilol 12.5 mg tablet RxNorm: 108133 1 Tablet(s) PO BID 10/28/2014 10/27/2014 Inactive ceftriaxone 1 gram solution for injection RxNorm: 7007396 Inj 09/05/2014 09/05/2014 Inactive Cipro 500 mg tablet RxNorm: 240771 1 Tablet(s) PO BID 09/04/2014 09/03/2014 Inactive Cipro 500 mg tablet RxNorm: 911569 1 Tablet(s) PO BID 09/04/2014 09/10/2014 Inactive oxycodone 5 mg tablet RxNorm: 1203358 4 Tablet(s) PO daily 08/20/2014 11/06/2014 Inactive rx written lisinopril 40 mg tablet RxNorm: 251659 TAKE 1 TABLET BY MOUTH DAILY 08/18/2014 02/13/2015 Inactive nystatin 100,000 unit/mL oral suspension RxNorm: 273690 5 Milliliter(s) PO QID 07/04/2014 07/13/2014 Inactive [SAVINGS FOR NON-COVERED DRUGS -- BIN:[id number], PCN: [id number], Group: [id number], ID# [id number], Questions: . THIS IS NOT INSURANCE.] WelChol 3.75 gram oral powder packet RxNorm: 019158 1 PO BID No Start Date Active amlodipine 10 mg tablet RxNorm: 930119 1 Tablet(s) PO QAM No Start Date Active One A Day oral RxNorm: 76808 oral No Start Date Active Vitamin D2 400 unit capsule RxNorm: 079230 1 Capsule(s) PO daily No Start Date Active aspirin 81 mg tablet,delayed release RxNorm: 242920 1 Tablet(s) PO daily No Start Date Active melatonin 5 mg disintegrating tablet RxNorm: 5723240 1 Tablet(s) PO QHS No Start Date Active Miralax 17 gram/dose oral powder RxNorm: 595387 17 Gram(s) PO daily in prune juice No Start Date Active clonidine HCl 0.1 mg tablet RxNorm: 878603 1 Tablet(s) PO QHS No Start Date Active hydrochlorothiazide oral RxNorm: 5487 oral No Start Date Active Lasix oral RxNorm: 859556 oral No Start Date 02/17/2015 Inactive potassium chloride 20 meq RxNorm: 449801 PO daily No Start Date 03/22/2015 Inactive Zoloft 25 mg tablet RxNorm: 943685 1 Tablet(s) PO daily x 5 days then increase to 50mg daily No Start Date 07/10/2017 Inactive oxycodone 5 mg tablet RxNorm: 0614894 3-4 Tablet(s) PO QHS No Start Date 08/19/2014 Inactive terazosin 2 mg capsule RxNorm: 717697 1 Capsule(s) PO daily No Start Date 07/26/2015 Inactive Effexor XR 75 mg capsule,extended release RxNorm: 780547 3 Capsule(s) 225 PO QAM No Start Date 10/27/2014 Inactive gabapentin 600 mg tablet RxNorm: 114946 1 Tablet(s) PO BID No Start Date 11/16/2014 Inactive pantoprazole 40 mg tablet,delayed release RxNorm: 228530 oral No Start Date 12/21/2015 Inactive Anoro Ellipta 62.5 mcg-25 mcg/actuation powder for inhalation RxNorm: 3680543 1 INH daily No Start Date 04/16/2015 Inactive diclofenac sodium 75 mg tablet,delayed release RxNorm: 124623 1 Tablet(s) PO BID No Start Date 02/17/2015 Inactive clopidogrel 75 mg tablet RxNorm: 684756 1 Tablet(s) PO QAM No Start Date 11/04/2014 Inactive lisinopril 40 mg tablet RxNorm: 958910 1 Tablet(s) PO daily No Start Date 08/17/2014 Inactive carvedilol 12.5 mg tablet RxNorm: 698775 1 Tablet(s) PO BID No Start Date 10/27/2014 Inactive Medication Administered Medication Codes Instructions Start Date Status ceftriaxone 500 mg solution for injection RxNorm: 6773129 2Milliliter 05/22/2018 Active Kenalog 40 mg/mL suspension for injection RxNorm: 2716210 Milliliter 04/20/2018 No longer Active ceftriaxone 1 gram solution for injection RxNorm: 8566762 09/05/2014 No longer Active Immunizations Vaccine Codes [...] Observation Code Item Item Code Result Date Urine Culture Ucult Complete >100,000 col/ml aerobic growth sent to ref lab 12/15/2017 Lipid Ord30 CHOL 128 mg/dL 11/14/2017 Lipid Ord30 HDL 24.0 mg/dl 11/14/2017 Lipid Ord30 TRIG 206 mg/dL 11/14/2017 Lipid Ord30 LDL 63 mg/dL 11/14/2017 Lipid Ord30 C/HDL 5.3 Ratio 11/14/2017 Tsh Ord6 TSH (3rd IS) 3.24 uIU/mL 11/14/2017 Comp Metabolic Esg657 NA 137 mEq/L 11/14/2017 Comp Metabolic Swa084 K 4.0 mEq/L 11/14/2017 Comp Metabolic Uny821 CL 104 mEq/L 11/14/2017 Comp Metabolic Znj558 CO2 23.0 mEq/L 11/14/2017 Comp Metabolic Izo490 ANION GAP 14 11/14/2017 Comp Metabolic Thn928 GLUCOSE 101 mg/dL 11/14/2017 Comp Metabolic Xce939 Creat 1.1 mg/dL 11/14/2017 Comp Metabolic Bku466 eGFR 67 ml/min/1.73m2 11/14/2017 Comp Metabolic Laf596 BUN 18 mg/dL 11/14/2017 Comp Metabolic Hqh241 B/C Ratio 15.9 Ratio 11/14/2017 Comp Metabolic Ijg393 CALCIUM 9.0 mg/dL 11/14/2017 Comp Metabolic Xmv733 ALK PHOS 81 U/L 11/14/2017 Comp Metabolic Ees579 AST(SGOT) 19 U/L 11/14/2017 Comp Metabolic Vfy399 ALT(SGPT) 18 U/L 11/14/2017 Comp Metabolic Dte163 BILI T 0.3 mg/dL 11/14/2017 Comp Metabolic Kfx564 ALBUMIN 3.8 g/dL 11/14/2017 Comp Metabolic Xdp446 TPRO 7.3 g/dL 11/14/2017 Comp Metabolic Wnk297 GLOB 3.5 g/dL 11/14/2017 Comp Metabolic Eul601 A/G Ratio 1.1 Ratio 11/14/2017 Comp Metabolic Liv674 Osmo 276 mOsmo 11/14/2017 Cbc With Differential [...] 29.9 pg 11/14/2017 Cbc With Differential Ord2 Falls% 11.2 % 11/14/2017 Cbc With Differential Ord2 [...] 1.85 K/ul 11/14/2017 Cbc With Differential Ord2 Falls ABS# 1.0 K/ul 11/14/2017 Cbc With Differential Ord2 Eos ABS# 0.6 K/ul 11/14/2017 Cbc With Differential Ord2 Baso ABS# 0.0 K/ul 11/14/2017 Culture Urine [id number] URINE CULTURE SEE NOTES 05/22/2017 Culture Urine [id number] Continued Results 05/22/2017 Urine Culture Ucult Complete >100,000 col/ml aerobic growth sent to ref lab 05/16/2017 Culture Urine [id number] URINE CULTURE SEE NOTES 04/21/2017 Urine Culture [...] 30.9 pg 03/30/2017 Cbc With Differential Ord2 Falls% 13.0 % 03/30/2017 Cbc With Differential Ord2 [...] 1.69 K/ul 03/30/2017 Cbc With Differential Ord2 Falls ABS# 0.9 K/ul 03/30/2017 Cbc With Differential Ord2 Eos ABS# 0.5 K/ul 03/30/2017 Cbc With Differential Ord2 Baso ABS# 0.0 K/ul 03/30/2017 %Hba1C Hqu801 % HbA1c 55792- 6 5.8 % 03/30/2017 %Hba1C Tsy544 Gluc Ave 120 mg/dL 03/30/2017 Comp Metabolic Wim128 NA 140 mEq/L 03/30/2017 Comp Metabolic Wwz715 K 4.0 mEq/L 03/30/2017 Comp Metabolic Gwg799 CL 105 mEq/L 03/30/2017 Comp Metabolic Eul581 CO2 25.0 mEq/L 03/30/2017 Comp Metabolic Icb872 ANION GAP 14 03/30/2017 Comp Metabolic Djp320 GLUCOSE 108 mg/dL 03/30/2017 Comp Metabolic Rqw516 Creat 1.2 mg/dL 03/30/2017 Comp Metabolic Soc796 eGFR 63 ml/min/1.73m2 03/30/2017 Comp Metabolic Ojj270 BUN 20 mg/dL 03/30/2017 Comp Metabolic Tkl556 B/C Ratio 16.9 Ratio 03/30/2017 Comp Metabolic Eyg303 CALCIUM 9.2 mg/dL 03/30/2017 Comp Metabolic Cwv938 ALK PHOS 83 U/L 03/30/2017 Comp Metabolic Eqb062 AST(SGOT) 17 U/L 03/30/2017 Comp Metabolic Tfl758 ALT(SGPT) 19 U/L 03/30/2017 Comp Metabolic Vbv658 BILI T 0.3 mg/dL 03/30/2017 Comp Metabolic Ojs210 ALBUMIN 3.9 g/dL 03/30/2017 Comp Metabolic Ywe194 TPRO 7.2 g/dL 03/30/2017 Comp Metabolic Ijs510 GLOB 3.3 g/dL 03/30/2017 Comp Metabolic Hks888 A/G Ratio 1.2 Ratio 03/30/2017 Comp Metabolic Upq193 Osmo 283 mOsmo 03/30/2017 Tsh Ord6 TSH (3rd IS) 1.40 uIU/mL 03/30/2017 Clostridium Diff Tox A/B Ggm856 Cdiff Positive 06/03/2016 Total Psa PSA 1.53 [...] 31.2 pg 03/20/2015 Cbc With Differential Ord2 Falls% 12.8 % 03/20/2015 Cbc With Differential Ord2 [...] 1.69 K/ul 03/20/2015 Cbc With Differential Ord2 Falls ABS# 0.8 K/ul 03/20/2015 Cbc With Differential Ord2 Eos ABS# 0.6 K/ul 03/20/2015 Cbc With Differential Ord2 Baso ABS# 0.0 K/ul 03/20/2015 Cbc With Differential Ord2 New Analyzer Notice Please note new ref ranges starting 03-04-2015 due to implemntation of new five part differential hematolgy analyzer. 03/20/2015 Total Psa Ord10 PSA 2.25 ng/mL 02/26/2015 Comp Metabolic Ltr531 NA 138 mEq/L 02/26/2015 Comp Metabolic Eap946 K 4.0 mEq/L 02/26/2015 Comp Metabolic Rnm518 CL 103 mEq/L 02/26/2015 Comp Metabolic Gbp024 CO2 28.0 mEq/L 02/26/2015 Comp Metabolic Iwo729 ANION GAP 11 02/26/2015 Comp Metabolic Eae475 GLUCOSE 95 mg/dL 02/26/2015 Comp Metabolic Kxm414 Creat 1.0 mg/dL 02/26/2015 Comp Metabolic Txa960 eGFR 74 ml/min/1.73m2 02/26/2015 Comp Metabolic Luo051 BUN 19 mg/dL 02/26/2015 Comp Metabolic Vxw902 B/C Ratio 18.3 Ratio 02/26/2015 Comp Metabolic Mgm939 CALCIUM 9.1 mg/dL 02/26/2015 Comp Metabolic Rhk523 ALK PHOS 87 U/L 02/26/2015 Comp Metabolic Vbb110 AST(SGOT) 22 U/L 02/26/2015 Comp Metabolic Bso954 ALT(SGPT) 24 U/L 02/26/2015 Comp Metabolic Phu214 BILI T 0.4 mg/dL 02/26/2015 Comp Metabolic Ynw850 ALBUMIN 4.0 g/dL 02/26/2015 Comp Metabolic Nad153 TPRO 7.4 g/dL 02/26/2015 Comp Metabolic Xzq712 GLOB 3.4 g/dL 02/26/2015 Comp Metabolic Xwc459 A/G Ratio 1.2 Ratio 02/26/2015 Comp Metabolic Jpd521 Osmo 278 mOsmo 02/26/2015 Culture Urine [id number] URINE CULTURE SEE NOTES 12/15/2014 Culture Urine [id number] Continued Results 12/15/2014 Urine Culture Ucult Complete >100,000 col/ml aerobic growth sent to ref lab 12/12/2014 Comp Metabolic Hdc153 NA 136 mEq/L 12/05/2014 Comp Metabolic Qig106 K 4.3 mEq/L 12/05/2014 Comp Metabolic Tuj700 CL 104 mEq/L 12/05/2014 Comp Metabolic Xes101 CO2 29.0 mEq/L 12/05/2014 Comp Metabolic Lqv493 ANION GAP 7 12/05/2014 Comp Metabolic Ofc899 GLUCOSE 80 mg/dL 12/05/2014 Comp Metabolic Tpc949 Creat 1.1 mg/dL 12/05/2014 Comp Metabolic Pod981 eGFR 68 ml/min/1.73m2 12/05/2014 Comp Metabolic Yso593 BUN 21 mg/dL 12/05/2014 Comp Metabolic Lzf515 B/C Ratio 18.8 Ratio 12/05/2014 Comp Metabolic Vlb547 CALCIUM 9.3 mg/dL 12/05/2014 Comp Metabolic Caj552 ALK PHOS 81 U/L 12/05/2014 Comp Metabolic Pnx864 AST(SGOT) 17 U/L 12/05/2014 Comp Metabolic Glm265 ALT(SGPT) 16 U/L 12/05/2014 Comp Metabolic Tff557 BILI T 0.3 mg/dL 12/05/2014 Comp Metabolic Xjf253 ALBUMIN 4.0 g/dL 12/05/2014 Comp Metabolic Mgr848 TPRO 6.9 g/dL 12/05/2014 Comp Metabolic Vus081 GLOB 2.9 g/dL 12/05/2014 Comp Metabolic Min807 A/G Ratio 1.4 Ratio 12/05/2014 Comp Metabolic Iqi658 Osmo 274 mOsmo 12/05/2014 Cbc With Differential [...] Ord2 RDW 15.0 % 12/05/2014 Culture Urine [id number] URINE CULTURE SEE NOTES 11/27/2014 Culture Urine [id number] Continued Results 11/27/2014 Urine Culture Ucult Complete Growth of aerobe sent to ref lab 11/25/2014 B Type Natriuretic Peptide [id number] B-MOBILE QA TESTER 121.00 pg/ml 10/08/2014 Cbc With Differential Ord2 [...] Folate Ord36 Folate 22.12 ng/mL 10/08/2014 B12 Qwj896 B12 >1500.00 pg/ml 10/08/2014 Comp Metabolic Wfs241 NA 135 mEq/L 10/08/2014 Comp Metabolic Ogl717 K 4.5 mEq/L 10/08/2014 Comp Metabolic Eue085 CL 104 mEq/L 10/08/2014 Comp Metabolic Spv979 CO2 25.0 mEq/L 10/08/2014 Comp Metabolic Gtj428 ANION GAP 11 10/08/2014 Comp Metabolic Wfu382 GLUCOSE 73 mg/dL 10/08/2014 Comp Metabolic Lzr306 Creat 1.1 mg/dL 10/08/2014 Comp Metabolic Tcf156 eGFR 71 ml/min/1.73m2 10/08/2014 Comp Metabolic Qrm427 BUN 21 mg/dL 10/08/2014 Comp Metabolic Vyx444 B/C Ratio 19.4 Ratio 10/08/2014 Comp Metabolic Nom595 CALCIUM 9.0 mg/dL 10/08/2014 Comp Metabolic Plv381 ALK PHOS 73 U/L 10/08/2014 Comp Metabolic Xlx110 AST(SGOT) 15 U/L 10/08/2014 Comp Metabolic Mso360 ALT(SGPT) 14 U/L 10/08/2014 Comp Metabolic Dwi519 BILI T 0.4 mg/dL 10/08/2014 Comp Metabolic Kar984 ALBUMIN 4.2 g/dL 10/08/2014 Comp Metabolic Ggb595 TPRO 7.1 g/dL 10/08/2014 Comp Metabolic Vhc534 GLOB 2.9 g/dL 10/08/2014 Comp Metabolic Hzt113 A/G Ratio 1.4 Ratio 10/08/2014 Comp Metabolic Jiq685 Osmo 272 mOsmo 10/08/2014 B12 Bhi327 B12 554.00 pg/ml 09/16/2014 Tibc Ord40 Iron 108 ug/dl 09/16/2014 Tibc Ord40 UIBC 281 ug/dL 09/16/2014 Tibc Ord40 TIBC 389 ug/dL 09/16/2014 Tibc Ord40 Fe-%Sat 27.8 % 09/16/2014 Folate Ord36 Folate >23.20 ng/mL 09/16/2014 Comp Metabolic Syb456 NA 134 mEq/L 09/16/2014 Comp Metabolic Gim094 K 4.6 mEq/L 09/16/2014 Comp Metabolic Xvu669 CL 103 mEq/L 09/16/2014 Comp Metabolic Rix237 CO2 25.0 mEq/L 09/16/2014 Comp Metabolic Sly455 ANION GAP 11 09/16/2014 Comp Metabolic Wga849 GLUCOSE 93 mg/dL 09/16/2014 Comp Metabolic Tva226 Creat 1.2 mg/dL 09/16/2014 Comp Metabolic Eui003 eGFR 65 ml/min/1.73m2 09/16/2014 Comp Metabolic Tfq056 BUN 23 mg/dL 09/16/2014 Comp Metabolic Yow573 B/C Ratio 19.8 Ratio 09/16/2014 Comp Metabolic Auo769 CALCIUM 9.1 mg/dL 09/16/2014 Comp Metabolic Mca965 ALK PHOS 73 U/L 09/16/2014 Comp Metabolic Gds176 AST(SGOT) 18 U/L 09/16/2014 Comp Metabolic Opp763 ALT(SGPT) 16 U/L 09/16/2014 Comp Metabolic Nld604 BILI T 0.4 mg/dL 09/16/2014 Comp Metabolic Dxv456 ALBUMIN 4.0 g/dL 09/16/2014 Comp Metabolic Iht211 TPRO 7.1 g/dL 09/16/2014 Comp Metabolic Zqc163 GLOB 3.1 g/dL 09/16/2014 Comp Metabolic Vqw992 A/G Ratio 1.3 Ratio 09/16/2014 Comp Metabolic Yui327 Osmo 272 mOsmo 09/16/2014 Cbc With Differential [...] Ord22 FERRITIN 36.2 ng/mL 09/16/2014 Culture Urine [id number] URINE CULTURE SEE NOTES 09/08/2014 Urine Culture [...] Ord2 RDW 17.8 % 09/05/2014 Comp Metabolic Tgz133 NA 133 mEq/L 09/05/2014 Comp Metabolic Lgr282 K 4.9 mEq/L 09/05/2014 Comp Metabolic Rjy470 CL 99 mEq/L 09/05/2014 Comp Metabolic Ick091 CO2 26.0 mEq/L 09/05/2014 Comp Metabolic Jwu526 ANION GAP 13 09/05/2014 Comp Metabolic Fho910 GLUCOSE 83 mg/dL 09/05/2014 Comp Metabolic Lpu157 Creat 1.5 mg/dL 09/05/2014 Comp Metabolic Avu777 eGFR 47 ml/min/1.73m2 09/05/2014 Comp Metabolic Ked801 BUN 28 mg/dL 09/05/2014 Comp Metabolic Utv288 B/C Ratio 18.3 Ratio 09/05/2014 Comp Metabolic Dzq831 CALCIUM 8.9 mg/dL 09/05/2014 Comp Metabolic Czj206 ALK PHOS 71 U/L 09/05/2014 Comp Metabolic Bsm155 AST(SGOT) 18 U/L 09/05/2014 Comp Metabolic Xqe766 ALT(SGPT) 29 U/L 09/05/2014 Comp Metabolic Gez047 BILI T 0.6 mg/dL 09/05/2014 Comp Metabolic Aog718 ALBUMIN 3.8 g/dL 09/05/2014 Comp Metabolic Zyt704 TPRO 6.7 g/dL 09/05/2014 Comp Metabolic Maw802 GLOB 2.9 g/dL 09/05/2014 Comp Metabolic Rww911 A/G Ratio 1.3 Ratio 09/05/2014 Comp Metabolic Mgx227 Osmo 271 mOsmo 09/05/2014 Total Psa Ord10 [...] cerumen occlusion 05/22/2018 None Full Exam - ENT Constitutional [...] Procedure Codes Date THER/PROPH/DIAG INJ SC/IM CPT-4: 39784 05/22/2018 ROCEPHIN, PER 250 MG CPT- 4: J0696 05/22/2018 THER/PROPH/DIAG INJ SC/IM CPT-4: 33770 04/20/2018 TRIAMCINOLONE ACET INJ NOS CPT-4: J3301 04/20/2018 URINALYSIS NONAUTO W/O SCOPE CPT-4: 85656 12/14/2017 URINALYSIS NONAUTO W/O SCOPE CPT-4: 08170 05/15/2017 URINALYSIS NONAUTO W/O SCOPE CPT-4: 31827 09/18/2015 ADMIN INFLUENZA VIRUS VAC CPT-4: G0008 12/31/2014 FLU VACC PRSV FREE INC ANTIG Formatting Model/CDA Sections, Assigned to/[place] [employer] CPT-4: 89075Hjvjwme 12/31/2014 URINALYSIS NONAUTO W/O SCOPE CPT-4: 89365 12/10/2014 URINALYSIS NONAUTO W/O SCOPE CPT-4: 35265 11/24/2014 ROCEPHIN, PER 250 MG CPT- 4: J0696 09/05/2014 THER/PROPH/DIAG INJ SC/IM CPT-4: 30455 09/05/2014 URINALYSIS NONAUTO W/O SCOPE CPT-4: 39710 09/04/2014 Vital Signs Date Vital 05/22/2018 Blood [...] 1: 138/60 Code: 8480-6 BMI: 37.2 Code: 32707-1 Heart Rate 1: 79 bpm Height: 5'9" SpO2: 91% Weight: 252 lbs 07/01/2016 Blood Pressure 1: 138/68 Code: 8480-6 BMI: 37.2 Code: 21258-5 Heart Rate 1: 69 bpm Height: 5'9" SpO2: 93% Weight: 252 lbs 05/05/2016 Blood Pressure 1: 136/78 Code: 8480-6 BMI: 39.3 Code: 13071-8 Heart Rate 1: 72 bpm Height: 5'9" SpO2: 97% Weight: 266 lbs 02/23/2016 Blood Pressure 1: 145/70 Code: 8480-6 BMI: 37.5 Code: 63227-4 Heart Rate 1: 80 bpm Height: 5'9" Weight: 254 lbs 09/16/2015 Blood Pressure 1: 140/62 Code: 8480-6 Heart Rate 1: 77 bpm Height: 5'9" SpO2: 93% Weight: 07/24/2015 Blood Pressure 1: 152/68 Code: 8480-6 BMI: 37.7 Code: 70701-8 Heart Rate 1: 73 bpm Height: 5'9" SpO2: 97% Weight: 255 lbs 03/20/2015 Blood Pressure 1: 146/74 Code: 8480-6 BMI: 38.1 Code: 79096-6 Heart Rate 1: 63 bpm Height: 5'9" Weight: 258 lbs 01/13/2015 Blood Pressure 1: 120/58 Code: 8480-6 Heart Rate 1: 52 bpm Height: 5'9" SpO2: 97% Temperature: 37.1 (C) / 98.7 (F) Weight: 12/05/2014 Blood Pressure 1: 134/54 Code: 8480-6 BMI: 36.3 Code: 85186-0 Heart Rate 1: 76 bpm Height: 5'9" SpO2: 93% Weight: 246 lbs 10/03/2014 Blood Pressure 1: 132/60 Code: 8480-6 Heart Rate 1: 76 bpm Height: SpO2: 95% Weight: 254 lbs 09/15/2014 Blood Pressure 1: 120/68 Code: 8480-6 BMI: 37.5 Code: 42688-0 Heart Rate 1: 76 bpm Height: 5'9" SpO2: 93% Weight: 254 lbs 09/05/2014 Blood Pressure 1: 110/50 Code: 8480-6 BMI: 37.4 Code: 10928-7 Heart Rate 1: 79 bpm Height: 5'9" SpO2: 96% Temperature: 36.3 (C) / 97.4 (F) Weight: 253 lbs 07/04/2014 Blood Pressure 1: 138/72 Code: 8480-6 BMI: 37.1 Code: 27138-5 Heart Rate 1: 72 bpm Height: 5'9" [...] discomfort 12/05/2014 occasional ache in chest- seeing board design engineer in [place]- doing heart cath in October [...] discomfort 10/03/2014 occasional ache in chest- seeing board design engineer in [place]- doing heart cath in October [...] other specified bacteria[ICD10: J15.8] Mary Aburto MD, [facility] CPT-4: 23676 05/22/201816867 EST. PATIENT, LEVEL III Diagnosis: Other acute sinusitis[ICD10: J01.80] Diagnosis: Other allergic rhinitis[ICD10: J30.89] Diagnosis: Cough[ICD10: R05] Mary Aburto MD, [facility] CPT-4: 64672 04/20/2018 ([id number]) 72673 EST. PATIENT, LEVEL IV Diagnosis: Essential (primary) hypertension[ICD10: I10] Diagnosis: Other iron deficiency anemias[ICD10: D50.8] Diagnosis: Weakness[ICD10: R53.1] Darleen Aburto MD, [facility] CPT-4: 26286 11/14/2017 10080 EST. PATIENT, LEVEL IV Diagnosis: Other lesions of oral mucosa[ICD10: K13.79] Diagnosis: Candidal stomatitis[ICD10: B37.0] Diagnosis: Generalized anxiety disorder[ICD10: F41.1] Diagnosis: Major depressive disorder, single episode, moderate[ICD10: F32.1] Mary Aburto MD, [facility] CPT-4: 49424 08/15/2017 98673 EST. PATIENT, LEVEL III Diagnosis: Generalized anxiety disorder[ICD10: F41.1] Diagnosis: Cauda equina syndrome[ICD10: G83.4] Diagnosis: Major depressive disorder, single episode, moderate[ICD10: F32.1] Mary Aburto MD, [facility] CPT-4: 88472 06/29/2017 54419 EST. PATIENT, LEVEL IV Diagnosis: Dysuria[ICD10: R30.0] Diagnosis: Other malaise[ICD10: R53.81] Diagnosis: Cauda equina syndrome[ICD10: G83.4] Diagnosis: Weakness[ICD10: R53.1] Mary Aburto MD, [facility] CPT-4: 93703 03/30/2017 ([id number]) 07663 EST. PATIENT, LEVEL III Diagnosis: Cough[ICD10: R05] Diagnosis: Enterocolitis due to Clostridium difficile[ICD10: A04.7] Kavya Aburto MD, [facility] CPT-4: 00820 10/07/2016 ([id number]) 93295 EST. 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 PATIENT, LEVEL III Diagnosis: Cauda equina syndrome[ICD10: G83.4] Diagnosis: Irritable bowel syndrome with diarrhea[ICD10: K58.0] Mary Aburto MD, [facility] CPT-4: 96883 05/05/2016 46641 EST. PATIENT, LEVEL III Diagnosis: Pain in right shoulder[ICD10: M25.511] Diagnosis: Weakness[ICD10: R53.1] Diagnosis: Shortness of breath[ICD10: R06.02] Mary Aburto MD, [facility] CPT-4: 45773 02/23/2016 43369 EST. PATIENT, LEVEL III Diagnosis: Essential (primary) hypertension[ICD10: I10] Diagnosis: Other insomnia[ICD10: G47.09] Diagnosis: Irritable bowel syndrome with diarrhea[ICD10: K58.0] Diagnosis: Shortness of breath[ICD10: R06.02] Diagnosis: Weakness[ICD10: R53.1] Mary Aburto MD, [facility] CPT-4: 07971 09/16/2015 23562 EST. PATIENT, LEVEL III Diagnosis: Diarrhea, unspecified[ICD10: R19.7] Diagnosis: Nausea[ICD10: R11.0] Mary Aburto MD, [facility] CPT-4: 33966 07/24/2015 42526 EST. PATIENT, LEVEL IV Diagnosis: Other iron deficiency anemias[ICD10: D50.8] Diagnosis: Rash and other nonspecific skin eruption[ICD10: R21] Diagnosis: Cauda equina syndrome[ICD10: G83.4] Diagnosis: Essential (primary) hypertension[ICD10: I10] Diagnosis: Other pruritus[ICD10: L29.8] Diagnosis: Shortness of breath[ICD10: R06.02] Mary Aburto MD, [facility] CPT-4: 65297 03/20/2015 20691 EST. PATIENT, LEVEL IV Diagnosis: Urinary tract infection, site not specified[ICD10: N39.0] Diagnosis: Umbilical hernia without obstruction or gangrene[ICD10: K42.9] Diagnosis: Cauda equina syndrome[ICD10: G83.4] Mary Aburto MD, [facility] CPT- 4: 35025 01/13/2015 ([id number]) 19481 EST. PATIENT, LEVEL IV Diagnosis: Iron deficiency anemia, unspecified[ICD10: D50.9] Diagnosis: Essential (primary) hypertension[ICD10: I10] Diagnosis: Hematuria, unspecified[ICD10: R31.9] Kavya Aburto MD, [facility] CPT-4: 76261 12/05/2014 ([id number]) 65501 EST. PATIENT, LEVEL IV Diagnosis: ESSENTIAL HYPERTENSION[ICD9: 401.9] Diagnosis: COPD (chronic obstructive pulmonary disease)[ICD9: 496] Diagnosis: ANEMIA[ICD9: 285.9] Diagnosis: SHORTNESS OF BREATH[ICD9: 786.05] Kavya Aburto MD, [facility] CPT- 4: 95372 10/03/2014 ([id number]) 31837 EST. PATIENT, LEVEL IV Diagnosis: ESSENTIAL HYPERTENSION[ICD9: 401.9] Diagnosis: ANEMIA[ICD9: 285.9] Diagnosis: MALAISE AND FATIGUE[ICD9: 780.79] Darleen Aburto MD, [facility] CPT- 4: 59289 09/15/2014 ([id number]) 00546 EST. PATIENT, LEVEL III Diagnosis: UTI[ICD9: 599.0] Diagnosis: Chronic back pain[ICD9: 724.5] Kavya Aburto MD, [facility] CPT-4: 11580 09/05/2014 ([id number]) OFFICE VISIT, NEW - LEVEL 4 Diagnosis: ESSENTIAL HYPERTENSION[ICD9: 401.9] Diagnosis: THRUSH[ICD9: 112.0] Diagnosis: Hyperlipidemia[ICD9: 272.4] Diagnosis: COPD (chronic obstructive pulmonary disease)[ICD9: 496] Diagnosis: Cauda equina syndrome[ICD9: 344.60] Diagnosis: History of prostate cancer[ICD9: V10.46] Kavya Aburto MD, [facility] CPT-4: 00559 07/04/2014 Plan of Care Planned Activity Notes [...] Patient Education: Patient Medication Summary Completed 05/22/2018 Care Plan: Comp Metabolic Pending 05/22/2018 Care Plan: Cbc With Differential Pending 05/22/2018 Care Plan: Magnesium Pending 05/22/2018 Visit Plan: Sinusitis - Pt has [...] spray. 04/20/2018 [facility]ment[phone] ([facility] min) Moderate 04/20/2018 Patient Education: Patient Medication Summary Completed 04/20/2018 Appointment: Lab Draw 12/14/2017 Patient Education: Patient Medication Summary Completed 12/14/2017 [phone] ([facility] Moderate 11/28/2017 Visit Plan: [...] culture report. 11/14/2017 Appointment: [phone] [place] (15 min) Moderate 11/14/2017 Patient Education: [...] prescribed for this patient. 08/15/2017 Appointment: Mary Alantel: [facility][note 3]5 [facility] (30 min) Complex 08/15/2017 Patient Education: Patient Medication Summary Completed 08/15/2017 Appointment: Mary Alantel: [phone] [facility] (15 min) Moderate 08/08/2017 Appointment: Mary Alan WPtel: [phone] (15 min) Moderate 08/03/2017 Visit Plan: Cauda [...] break through pain symptoms. 06/29/2017 Appointment: Mary Alantel: [phone] [facility] (15 min) Moderate 06/29/2017 Patient Education: [...] improve. 03/30/2017 Appointment: [phone] ([facility]) Complex 03/30/2017 Patient Education: Patient Medication Summary Completed 03/30/2017 Visit Plan: Cough-suspect virus-patient to monitor over the weekend-call Monday if symptoms persist and we will do a chest xray and sputum culture Cdiff-treat with flagyl as directed-call if symptoms do not resolve 10/07/2016 Appointment: [facility]anian [facility] [phone] [phone] (30 min) Complex 10/07/2016 Patient Education: Patient Medication Summary Completed 10/07/2016 Patient Education: Obesity Completed 10/07/2016 Visit Plan: Cauda equina-chronic back pain-generalized weakness- right shoulder pain/weakness-patient to contact juan blancas for mobility paperwork-will ask PT to do a mobility exam through [facility] Drug induced constipation-rx for movantik. 07/01/2016 Visit Plan: Cauda equina-chronic back pain-generalized weakness- bilateral shoulder pain/weakness-OA knees-patient to contact juan blancas for mobility paperwork-will ask PT to do a mobility exam through [facility]. Patient is non ambulatory due to cauda [...] movantik. 07/01/2016 Appointment: [facility]anian [facility]el[facility] [phone] [phone] [place] (30 min) Complex 07/01/2016 Patient [...] his surgery. 05/05/2016 Appointment: Mary Alan WPtel: [facility]note 3][facility] [facility] 05/05/2016 Patient Education: Patient [...] Juan godoy. 02/23/2016 Appointment: Mary Alan WPtel: [facility][note 3]5 [facility] (30 min) Complex 02/23/2016 Patient Education: Patient Medication Summary Completed 02/23/2016 Appointment: Mary Alan WPtel: [address] [place], [place] [phone] (30 min) Complex 02/19/2016 Appointment: Darleen Aburto WPtel: [address] [place], [place] [id number] (15 min) Moderate 10/14/2015 Appointment: Lab Draw [...] having loose bowel movements. Keep appointment with [employer] Door Frame Assembler Make an appointment with board design engineer - to follow up on shortness of breath. Weakness - pt is to contact Juan Godoy in [facility] and Call clinic when he is ready [...] not improved. 07/24/2015 Appointment: Kavya Subramanian WPtel: [address] [place], [place] [phone] (30 min) [facility] 07/24/2015 Patient Education: Patient Medication Summary Completed [...] and hypertension. 09/15/2014 Appointment: Darleen Aburto WPtel: [address] [place], [place] [id number] (15 min) Moderate 09/15/2014 Patient Education: Patient [...] equina-increased incontinence of bowels-recommend follow up with technical operations specialist-will discuss repeat MRI with Dr Aburto-keep [...] do PT evaluation for motorized wheelchair through [employer] . Cauda equina-chronic back pain-generalized weakness-right shoulder pain/weakness- patient to contact [employer]anGateGuruyonny for mobility paperwork-will ask PT to do a mobility exam through [employer] [facility] Drug induced constipation-rx for movantik. Zakiyaantik [place] to do PT evaluation for motorized wheelchair through [employer] . Cauda equina-chronic back pain-generalized weakness-bilateral shoulder pain/weakness- OA knees-patient to contact [employer] for mobility paperwork-will ask PT to do a mobility exam through [employer]. Patient is non ambulatory due to cauda [...] assessment details. Drug induced constipation-rx for movantik. will give you a rocephin shot today [...] incontinence of bowels- recommend follow up with technical operations specialist-will discuss repeat MRI with Dr Aburto-keep [...] (start tomorrow) let us know what your board design engineer says at your appointment chest x-ray if [...] Peng 4. Make an appointment with your board design engineer - to follow up on shortness of breath. 5. Call us when you here about the mobility paperwork and we will fill out the paperwork. Juan Blancas eyefactive in [facility] . Hypertension - The patient has been [...] having loose bowel movements. Keep appointment with [employer] Door Frame Assembler Make an appointment with board design engineer - to follow up on shortness of breath. Weakness - pt is to contact Juan Godoy in [facility] and Call clinic when he is ready [...] 2 pills daily. Will consult [facility]. Cauda Equina - stable - continue [...]
--- OUTSIDE RECORDS SUMMARY | 2018-07-19 09:32 | XMS REPORT | CCD ---
Author Author Kavya Subramanian Organization [facility] Address [address] [place] [address] Phone Care Team Providers Care Warehouse Specialist Name Role Phone PP Unavailable CCM Unavailable Summary Purpose Interface Exchange Insurance Providers Payer name Policy type / Coverage type Covered green party ID Effective Begin Date Effective End Date WPS Medicare Part B Commercial Insurance [id number] Unknown Unknown [employer]ALTH[employer]ICE Commercial Insurance [id number] Unknown Unknown Family history Father Diagnosis Age At Onset Coronary Artery Disease Unknown Mother Diagnosis Age At Onset Arthritis Unknown Sister Diagnosis Age At Onset Alzheimer's Disease Unknown Social History Social History Element Codes Description Effective Dates Marital status Unknown 07/04/2014 Number of children Unknown 2 07/04/2014 Living arrangements Unknown House 07/04/[address]: 6674446 Quit over 10 years ago 07/04/2014 Alcohol history Unknown occasionally drinks alcohol 07/04/2014 Frequency of drinks SNOMED CT: 321409318 Drinks rarely 07/04/2014 Allergies, Adverse Reactions, Alerts Substance Reaction Codes Entered Date Inactivated Date Status * NO KNOWN FOOD ALLERGIES Unknown 07/04/2014 No Inactive Date Active Iodine rash, pruritis, RxNorm: 5933 03/04/2015 No Inactive Date Active tramadol pruritis RxNorm: 85828 07/04/2014 No Inactive Date Active Past Medical History Illness Codes Condition Status Onset Date Resolved Date Cough ICD-9: 786.2 ICD-10: R05 Active 10/07/2016 [...] Problems Condition Codes Effective Dates Condition Status Cough ICD-9: 786.2 ICD-10: R05 10/07/2016 Active [...] Start Date Stop Date Status Fill Instructions diclofenac sodium 75 mg tablet,delayed release RxNorm: 193928 1 TABLET(S) PO BID 05/14/2018 02/07/2019 Active gabapentin 600 mg tablet RxNorm: 728784 TABLET(S) TAKE 1 TABLET BY MOUTH TWICE DAILY 04/23/2018 04/17/2019 Active prednisone 20 mg tablet RxNorm: 772631 2 Tablet(s) PO daily 04/20/2018 04/24/2018 Inactive Kenalog 40 mg/mL suspension for injection RxNorm: 7465114 Milliliter(s) Inj 04/20/2018 04/20/2018 Inactive Augmentin 500 mg-125 mg tablet RxNorm: 705889 1 Tablet(s) PO TID 04/20/2018 04/26/2018 Inactive oxycodone 5 mg tablet RxNorm: 2296027 4 Tablet(s) PO daily 04/12/2018 06/25/2018 Active potassium chloride ER 20 mEq tablet,extended release RxNorm: 487160 1 TABLET(S) PO DAILY 03/09/2018 03/03/2019 Active oxycodone 5 mg tablet RxNorm: 9870151 4 Tablet(s) PO daily 01/18/2018 04/02/2018 Inactive Augmentin 500 mg-125 mg tablet RxNorm: 561444 1 Tablet(s) PO TID 12/14/2017 12/23/2017 Inactive take probiotic bid x 10 days pantoprazole 40 mg tablet,delayed release RxNorm: 741621 TAKE 1 TABLET BY MOUTH DAILY 12/11/2017 12/05/2018 Active Augmentin 500 mg-125 mg tablet RxNorm: 159785 1 Tablet(s) PO TID 11/17/2017 11/22/2017 Inactive take probiotic bid x 7 days lisinopril 40 mg tablet RxNorm: 949464 TAKE 1 TABLET BY MOUTH DAILY 11/06/2017 08/02/2018 Active oxycodone 5 mg tablet RxNorm: 1946230 4 Tablet(s) PO daily 10/16/2017 12/29/2017 Inactive Cymbalta 30 mg capsule,delayed release RxNorm: 665019 2 Capsule(s) PO daily 08/17/2017 02/12/2018 Inactive Zoloft 25 mg tablet RxNorm: 003108 1 TABLET(S) PO DAILY X 5 DAYS THEN INCREASE TO 50MG DAILY 08/16/2017 No Stop Date Active Cymbalta 30 mg capsule,delayed release RxNorm: 774297 1 Capsule(s) PO 1 CAPSULE(S) PO DAILY X 1 WEEK, THEN INCREASE TO 2 DAILY 08/15/2017 08/16/2017 Inactive Patient requests 90 days supply diclofenac sodium 75 mg tablet,delayed release RxNorm: 238700 1 TABLET(S) PO BID 08/14/2017 05/10/2018 Inactive oxycodone 5 mg tablet RxNorm: 6638880 4 Tablet(s) PO daily 08/01/2017 10/14/2017 Inactive valacyclovir 1 gram tablet RxNorm: 327714 1 Tablet(s) PO TID 07/12/2017 07/11/2017 Inactive Zoloft 50 mg tablet RxNorm: 112751 1 Tablet(s) PO daily 07/12/2017 08/01/2017 Inactive valacyclovir 1 gram tablet RxNorm: 887861 1 Tablet(s) PO TID 07/12/2017 07/18/2017 Inactive Zoloft 50 mg tablet RxNorm: 002460 1 Tablet(s) PO daily 07/12/2017 07/11/2017 Inactive Zoloft 25 mg tablet RxNorm: 573309 1 Tablet(s) PO daily x 5 days then increase to 50mg daily 07/11/2017 07/11/2017 Inactive Cymbalta 30 mg capsule,delayed release RxNorm: 712653 1 Capsule(s) PO daily x 1 week, then increase to 2 daily 06/30/2017 06/29/2017 Inactive Cymbalta 30 mg capsule,delayed release RxNorm: 737857 1 CAPSULE(S) PO DAILY X 1 WEEK, THEN INCREASE TO 2 DAILY 06/30/2017 07/04/2017 Inactive Patient requests 90 days supply Augmentin 875 mg-125 mg tablet RxNorm: 659847 1 Tablet(s) PO BID 05/22/2017 05/28/2017 Inactive Probiotic QID while on antibiotics Bactrim DS 800 mg-160 mg tablet RxNorm: 442420 1 Tablet(s) PO BID 05/22/2017 05/21/2017 Inactive Probiotic QID while on antibiotics Bactrim DS 800 mg-160 mg tablet RxNorm: 594351 1 Tablet(s) PO BID 05/22/2017 05/28/2017 Inactive Probiotic QID while on antibiotics Augmentin 875 mg-125 mg tablet RxNorm: 654206 1 Tablet(s) PO BID 05/22/2017 05/21/2017 Inactive Probiotic QID while on antibiotics Cipro 500 mg tablet RxNorm: 515053 1 Tablet(s) PO BID 04/21/2017 04/30/2017 Inactive Take probiotic while on ABT Cipro 500 mg tablet RxNorm: 388062 1 Tablet(s) PO BID 04/21/2017 04/20/2017 Inactive Diflucan 150 mg tablet RxNorm: 805647 1 Tablet(s) PO daily 04/19/2017 11/13/2017 Inactive Diflucan 150 mg tablet RxNorm: 054650 1 Tablet(s) PO daily 04/19/2017 04/18/2017 Inactive oxycodone 5 mg tablet RxNorm: 9081716 4 Tablet(s) PO daily 04/17/2017 06/30/2017 Inactive gabapentin 600 mg tablet RxNorm: 229529 TABLET(S) TAKE 1 TABLET BY MOUTH TWICE DAILY 04/14/2017 04/08/2018 Inactive Rocephin 1 gram solution for injection RxNorm: 827017 1 Inj daily 04/05/2017 04/11/2017 Inactive Rocephin 1 gram solution for injection RxNorm: 114471 1 Inj daily 04/04/2017 04/04/2017 Inactive lidocaine (PF) 10 mg/mL (1 %) injection solution RxNorm: 0900969 1 Milliliter(s) Inj daily 04/04/2017 04/10/2017 Inactive Use to administer rocephin lidocaine (PF) 10 mg/mL (1 %) injection solution RxNorm: 4473214 1 Milliliter(s) Inj daily 04/04/2017 04/03/2017 Inactive Use to administer rocephin Rocephin 1 gram solution for injection RxNorm: 145408 1 Inj daily 04/04/2017 04/03/2017 Inactive Augmentin 500 mg-125 mg tablet RxNorm: 073067 1 Tablet(s) PO TID 03/31/2017 04/03/2017 Inactive Augmentin 500 mg-125 mg tablet RxNorm: 504782 1 Tablet(s) PO TID 03/31/2017 03/30/2017 Inactive Effexor XR 75 mg capsule,extended release RxNorm: 530192 TAKE 3 CAPSULES BY MOUTH EVERY MORNING 03/24/2017 11/13/2017 Inactive potassium chloride ER 20 mEq tablet,extended release RxNorm: 587484 1 TABLET(S) PO DAILY 03/13/2017 03/07/2018 Inactive lisinopril 40 mg tablet RxNorm: 946205 TAKE 1 TABLET BY MOUTH DAILY 02/06/2017 11/02/2017 Inactive pantoprazole 40 mg tablet,delayed release RxNorm: 470201 TAKE 1 TABLET BY MOUTH DAILY 12/19/2016 12/10/2017 Inactive oxycodone 5 mg tablet RxNorm: 2647319 4 Tablet(s) PO daily 12/19/2016 03/03/2017 Inactive diclofenac sodium 75 mg tablet,delayed release RxNorm: 036512 1 TABLET(S) PO BID 11/17/2016 08/13/2017 Inactive gabapentin 600 mg tablet RxNorm: 240905 TABLET(S) TAKE 1 TABLET BY MOUTH TWICE DAILY 10/14/2016 04/11/2017 Inactive Flagyl 500 mg tablet RxNorm: 149831 1 Tablet(s) PO TID 10/07/2016 10/16/2016 Inactive oxycodone 5 mg tablet RxNorm: 8110920 4 Tablet(s) PO daily 10/03/2016 12/16/2016 Inactive Effexor XR 75 mg capsule,extended release RxNorm: 435811 TAKE 3 CAPSULES BY MOUTH EVERY MORNING 09/22/2016 11/20/2016 Inactive Patient requests 90 days supply lisinopril 40 mg tablet RxNorm: 833625 TAKE 1 TABLET BY MOUTH DAILY 08/01/2016 01/27/2017 Inactive Effexor XR 75 mg capsule,extended release RxNorm: 245618 TAKE 3 CAPSULES BY MOUTH EVERY MORNING 07/21/2016 09/21/2016 Inactive oxycodone 5 mg tablet RxNorm: 2891593 4 Tablet(s) PO daily 07/11/2016 09/23/2016 Inactive Movantik 25 mg tablet RxNorm: 7281706 1 Tablet(s) PO daily 07/01/2016 11/13/2017 Inactive potassium chloride ER 20 mEq tablet,extended release RxNorm: 370061 1 TABLET(S) PO DAILY 06/14/2016 03/10/2017 Inactive Flagyl 500 mg tablet RxNorm: 143209 1 Tablet(s) PO TID 06/03/2016 06/12/2016 Inactive Flagyl 500 mg tablet RxNorm: 117817 1 Tablet(s) PO TID 06/03/2016 06/02/2016 Inactive oxycodone 5 mg tablet RxNorm: 2643797 4 Tablet(s) PO daily 04/27/2016 07/10/2016 Inactive Tamiflu 75 mg capsule RxNorm: 734402 1 Capsule(s) PO daily 04/19/2016 04/28/2016 Inactive Tamiflu 75 mg capsule RxNorm: 678724 1 Capsule(s) PO daily 04/19/2016 04/18/2016 Inactive Effexor XR 75 mg capsule,extended release RxNorm: 803113 TAKE 3 CAPSULES BY MOUTH EVERY MORNING 02/18/2016 04/17/2016 Inactive diclofenac sodium 75 mg tablet,delayed release RxNorm: 400013 1 TABLET(S) PO BID 02/18/2016 11/13/2016 Inactive Effexor XR 75 mg capsule,extended release RxNorm: 798794 Capsule(s) TAKE 3 CAPSULES BY MOUTH EVERY MORNING 02/17/2016 08/14/2016 Inactive oxycodone 5 mg tablet RxNorm: 5883115 4 Tablet(s) PO daily 02/04/2016 04/26/2016 Inactive clopidogrel 75 mg tablet RxNorm: 787907 1 TABLET(S) PO QAM 02/01/2016 01/25/2017 Inactive gabapentin 600 mg tablet RxNorm: 687213 Tablet(s) TAKE 1 TABLET BY MOUTH TWICE DAILY 02/01/2016 10/13/2016 Inactive Effexor XR 75 mg capsule,extended release RxNorm: 071589 TAKE 3 CAPSULES BY MOUTH EVERY MORNING 01/11/2016 02/09/2016 Inactive pantoprazole 40 mg tablet,delayed release RxNorm: 853565 TAKE 1 TABLET BY MOUTH DAILY 12/22/2015 12/15/2016 Inactive Effexor XR 75 mg capsule,extended release RxNorm: 165524 TAKE 3 CAPSULES BY MOUTH EVERY MORNING 11/16/2015 01/14/2016 Inactive lisinopril 40 mg tablet RxNorm: 730524 TAKE 1 TABLET BY MOUTH DAILY 11/05/2015 07/31/2016 Inactive Effexor XR 75 mg capsule,extended release RxNorm: 291390 TAKE 3 CAPSULES BY MOUTH EVERY MORNING 09/22/2015 11/20/2015 Inactive Augmentin 500 mg-125 mg tablet RxNorm: 955666 1 Tablet(s) PO TID 09/18/2015 09/24/2015 Inactive Anoro Ellipta 62.5 mcg-25 mcg/actuation powder for inhalation RxNorm: 3794677 1 INH daily 08/20/2015 02/15/2016 Inactive Anoro Ellipta 62.5 mcg-25 mcg/actuation powder for inhalation RxNorm: 6812122 1 INH DAILY 08/20/2015 11/13/2017 Inactive lisinopril 40 mg tablet RxNorm: 533751 TAKE 1 TABLET BY MOUTH DAILY 08/10/2015 11/04/2015 Inactive gabapentin 600 mg tablet RxNorm: 198664 TAKE 1 TABLET BY MOUTH TWICE DAILY 08/10/2015 01/31/2016 Inactive terazosin 2 mg capsule RxNorm: 252737 TAKE ONE CAPSULE BY MOUTH EVERY DAY 07/27/2015 08/29/2016 Inactive hyoscyamine 0.125 mg sublingual tablet RxNorm: 8072464 1 Tablet(s) SL TID as needed 07/24/2015 08/02/2015 Inactive metronidazole 500 mg tablet RxNorm: 574855 1 Tablet(s) PO TID 07/24/2015 07/30/2015 Inactive Effexor XR 75 mg capsule,extended release RxNorm: 978325 TAKE 3 CAPSULES BY MOUTH EVERY MORNING 07/23/2015 09/20/2015 Inactive oxycodone 5 mg tablet RxNorm: 0203389 4 Tablet(s) PO daily 06/26/2015 02/03/2016 Inactive potassium chloride ER 20 mEq tablet,extended release RxNorm: 423672 1 Tablet(s) PO daily 06/25/2015 06/13/2016 Inactive oxycodone 5 mg tablet RxNorm: 1521109 4 Tablet(s) PO daily 04/17/2015 06/25/2015 Inactive rx written Anoro Ellipta 62.5 mcg-25 mcg/actuation powder for inhalation RxNorm: 6970892 1 INH daily 04/17/2015 08/19/2015 Inactive potassium chloride ER 20 mEq tablet,extended release RxNorm: 233255 1 Tablet(s) PO daily 03/23/2015 06/24/2015 Inactive triamcinolone acetonide 0.1 % topical cream RxNorm: 8157400 1 Application TOP BID 03/20/2015 No Stop Date Active carvedilol 12.5 mg tablet RxNorm: 320187 1 TABLET(S) PO BID 02/23/2015 08/21/2015 Inactive diclofenac sodium 75 mg tablet,delayed release RxNorm: 548179 1 Tablet(s) PO BID 02/18/2015 02/12/2016 Inactive carvedilol 12.5 mg tablet RxNorm: 028227 1 Tablet(s) PO BID 02/17/2015 02/11/2016 Inactive furosemide 40 mg tablet RxNorm: 694424 1 Tablet(s) PO daily 02/17/2015 02/11/2016 Inactive lisinopril 40 mg tablet RxNorm: 692892 TAKE 1 TABLET BY MOUTH DAILY 02/16/2015 08/09/2015 Inactive ceftriaxone 1 gram solution for injection RxNorm: 0398721 1 Gram(s) Inj daily mix with lidocaine 01/14/2015 01/17/2015 Inactive please supply 4 bottles of 1gram rocephin IM with 1 bottle of lidocaine 1% for home health to administer to pt starting 01/15 ceftriaxone 1 gram solution for injection RxNorm: 7677413 1 Gram(s) Inj daily 01/14/2015 01/13/2015 Inactive please supply 4 bottles of 1gram rocephin IM with 1 bottle of lidocaine 1% for home health to administer to pt starting 01/15 Augmentin 500 mg-125 mg tablet RxNorm: 958805 1 Tablet(s) PO BID 01/13/2015 01/22/2015 Inactive Keflex 500 mg capsule RxNorm: 027782 1 Capsule(s) PO TID 12/12/2014 12/11/2014 Inactive Keflex 500 mg capsule RxNorm: 525434 1 Capsule(s) PO TID 12/12/2014 12/17/2014 Inactive Augmentin 500 mg-125 mg tablet RxNorm: 348544 1 Tablet(s) PO BID 11/28/2014 12/02/2014 Inactive Augmentin 500 mg-125 mg tablet RxNorm: 860114 1 Tablet(s) PO BID 11/28/2014 11/27/2014 Inactive Cipro 500 mg tablet RxNorm: 936694 1 Tablet(s) PO BID 11/24/2014 11/27/2014 Inactive gabapentin 600 mg tablet RxNorm: 265455 1 Tablet(s) PO BID 11/17/2014 08/13/2015 Inactive gabapentin 600 mg tablet RxNorm: 791563 1 Tablet(s) PO BID 11/17/2014 11/16/2014 Inactive oxycodone 5 mg tablet RxNorm: 4025251 4 Tablet(s) PO daily 11/07/2014 02/04/2015 Inactive rx written Effexor XR 75 mg capsule,extended release RxNorm: 536053 3 Capsule(s) 225 PO QAM 11/05/2014 03/04/2015 Inactive clopidogrel 75 mg tablet RxNorm: 533634 1 Tablet(s) PO QAM 11/05/2014 01/28/2016 Inactive Effexor XR 75 mg capsule,extended release RxNorm: 491926 3 Capsule(s) 225 PO QAM 11/03/2014 11/04/2014 Inactive carvedilol 12.5 mg tablet RxNorm: 814835 1 Tablet(s) PO BID 10/28/2014 02/16/2015 Inactive Effexor XR 75 mg capsule,extended release RxNorm: 779305 3 Capsule(s) 225 PO QAM 10/28/2014 11/02/2014 Inactive Effexor XR 75 mg capsule,extended release RxNorm: 332358 3 Capsule(s) 225 PO QAM 10/28/2014 10/27/2014 Inactive carvedilol 12.5 mg tablet RxNorm: 279702 1 Tablet(s) PO BID 10/28/2014 10/27/2014 Inactive ceftriaxone 1 gram solution for injection RxNorm: 5076083 Inj 09/05/2014 09/05/2014 Inactive Cipro 500 mg tablet RxNorm: 684785 1 Tablet(s) PO BID 09/04/2014 09/03/2014 Inactive Cipro 500 mg tablet RxNorm: 865276 1 Tablet(s) PO BID 09/04/2014 09/10/2014 Inactive oxycodone 5 mg tablet RxNorm: 0829582 4 Tablet(s) PO daily 08/20/2014 11/06/2014 Inactive rx written lisinopril 40 mg tablet RxNorm: 030358 TAKE 1 TABLET BY MOUTH DAILY 08/18/2014 02/13/2015 Inactive nystatin 100,000 unit/mL oral suspension RxNorm: 866604 5 Milliliter(s) PO QID 07/04/2014 07/13/2014 Inactive [SAVINGS FOR NON-COVERED DRUGS -- BIN:[id number], PCN: [id number], Group: [id number], ID# [id number], Questions: . THIS IS NOT INSURANCE.] WelChol 3.75 gram oral powder packet RxNorm: 047370 1 PO BID No Start Date Active amlodipine 10 mg tablet RxNorm: 672660 1 Tablet(s) PO QAM No Start Date Active One A Day oral RxNorm: 84357 oral No Start Date Active Vitamin D2 400 unit capsule RxNorm: 974733 1 Capsule(s) PO daily No Start Date Active aspirin 81 mg tablet,delayed release RxNorm: 282521 1 Tablet(s) PO daily No Start Date Active melatonin 5 mg disintegrating tablet RxNorm: 4199917 1 Tablet(s) PO QHS No Start Date Active Miralax 17 gram/dose oral powder RxNorm: 715341 17 Gram(s) PO daily in prune juice No Start Date Active clonidine HCl 0.1 mg tablet RxNorm: 169145 1 Tablet(s) PO QHS No Start Date Active hydrochlorothiazide oral RxNorm: 5487 oral No Start Date Active Lasix oral RxNorm: 291581 oral No Start Date 02/17/2015 Inactive potassium chloride 20 meq RxNorm: 148932 PO daily No Start Date 03/22/2015 Inactive Zoloft 25 mg tablet RxNorm: 339435 1 Tablet(s) PO daily x 5 days then increase to 50mg daily No Start Date 07/10/2017 Inactive oxycodone 5 mg tablet RxNorm: 3183191 3-4 Tablet(s) PO QHS No Start Date 08/19/2014 Inactive terazosin 2 mg capsule RxNorm: 241387 1 Capsule(s) PO daily No Start Date 07/26/2015 Inactive Effexor XR 75 mg capsule,extended release RxNorm: 838865 3 Capsule(s) 225 PO QAM No Start Date 10/27/2014 Inactive gabapentin 600 mg tablet RxNorm: 946881 1 Tablet(s) PO BID No Start Date 11/16/2014 Inactive pantoprazole 40 mg tablet,delayed release RxNorm: 729335 oral No Start Date 12/21/2015 Inactive Anoro Ellipta 62.5 mcg-25 mcg/actuation powder for inhalation RxNorm: 0105900 1 INH daily No Start Date 04/16/2015 Inactive diclofenac sodium 75 mg tablet,delayed release RxNorm: 909260 1 Tablet(s) PO BID No Start Date 02/17/2015 Inactive clopidogrel 75 mg tablet RxNorm: 524198 1 Tablet(s) PO QAM No Start Date 11/04/2014 Inactive lisinopril 40 mg tablet RxNorm: 396768 1 Tablet(s) PO daily No Start Date 08/17/2014 Inactive carvedilol 12.5 mg tablet RxNorm: 117269 1 Tablet(s) PO BID No Start Date 10/27/2014 Inactive Medication Administered Medication Codes Instructions Start Date Status Kenalog 40 mg/mL suspension for injection RxNorm: 9772381 Milliliter 04/20/2018 No longer Active ceftriaxone 1 gram solution for injection RxNorm: 4422462 09/05/2014 No longer Active Immunizations Vaccine Codes Date Status Influenza CVX: 141 12/31/2014 completed Assessments Condition Codes Effective Dates Other acute sinusitis ICD-10: J01.80 ICD-9: 461.8 [...] Visit Reason For Visit Effective Dates Notes sinus congestion 04/20/2018 fatigue 11/14/2017 oral pain [...] (3rd IS) 3.24 uIU/mL 11/14/2017 Comp Metabolic Sjs920 NA 137 mEq/L 11/14/2017 Comp Metabolic Uun466 K 4.0 mEq/L 11/14/2017 Comp Metabolic Hps779 CL 104 mEq/L 11/14/2017 Comp Metabolic Hod116 CO2 23.0 mEq/L 11/14/2017 Comp Metabolic Svk065 ANION GAP 14 11/14/2017 Comp Metabolic Kxi839 GLUCOSE 101 mg/dL 11/14/2017 Comp Metabolic Vcg436 Creat 1.1 mg/dL 11/14/2017 Comp Metabolic Jwa495 eGFR 67 ml/min/1.73m2 11/14/2017 Comp Metabolic Olk449 BUN 18 mg/dL 11/14/2017 Comp Metabolic Ufs625 B/C Ratio 15.9 Ratio 11/14/2017 Comp Metabolic Rhp944 CALCIUM 9.0 mg/dL 11/14/2017 Comp Metabolic Xjt814 ALK PHOS 81 U/L 11/14/2017 Comp Metabolic Nei690 AST(SGOT) 19 U/L 11/14/2017 Comp Metabolic Ujm699 ALT(SGPT) 18 U/L 11/14/2017 Comp Metabolic Dso503 BILI T 0.3 mg/dL 11/14/2017 Comp Metabolic Ymd649 ALBUMIN 3.8 g/dL 11/14/2017 Comp Metabolic Uur005 TPRO 7.3 g/dL 11/14/2017 Comp Metabolic Zjv695 GLOB 3.5 g/dL 11/14/2017 Comp Metabolic Amn662 A/G Ratio 1.1 Ratio 11/14/2017 Comp Metabolic Zia168 Osmo 276 mOsmo 11/14/2017 Cbc With Differential [...] 29.9 pg 11/14/2017 Cbc With Differential Ord2 [place]% 11.2 % 11/14/2017 Cbc With Differential Ord2 [...] 1.85 K/ul 11/14/2017 Cbc With Differential Ord2 [place] ABS# 1.0 K/ul 11/14/2017 Cbc With Differential Ord2 Eos ABS# 0.6 K/ul 11/14/2017 Cbc With Differential Ord2 Baso ABS# 0.0 K/ul 11/14/2017 Culture Urine [id number] URINE CULTURE SEE NOTES 05/22/2017 Culture Urine [id number] Continued Results 05/22/2017 Urine Culture Ucult Complete >100,000 col/ml aerobic growth sent to ref lab 05/16/2017 Culture Urine [id number] URINE CULTURE SEE NOTES 04/21/2017 Urine Culture [...] 30.9 pg 03/30/2017 Cbc With Differential Ord2 [place]% 13.0 % 03/30/2017 Cbc With Differential Ord2 [...] 1.69 K/ul 03/30/2017 Cbc With Differential Ord2 [place] ABS# 0.9 K/ul 03/30/2017 Cbc With Differential Ord2 Eos ABS# 0.5 K/ul 03/30/2017 Cbc With Differential Ord2 Baso ABS# 0.0 K/ul 03/30/2017 %Hba1C Mbr994 % HbA1c 48085- 6 5.8 % 03/30/2017 %Hba1C Jpw013 Gluc Ave 120 mg/dL 03/30/2017 Comp Metabolic Yoh074 NA 140 mEq/L 03/30/2017 Comp Metabolic Qup287 K 4.0 mEq/L 03/30/2017 Comp Metabolic Zma087 CL 105 mEq/L 03/30/2017 Comp Metabolic Eyr835 CO2 25.0 mEq/L 03/30/2017 Comp Metabolic Yda674 ANION GAP 14 03/30/2017 Comp Metabolic Gdj867 GLUCOSE 108 mg/dL 03/30/2017 Comp Metabolic Xee095 Creat 1.2 mg/dL 03/30/2017 Comp Metabolic Zch727 eGFR 63 ml/min/1.73m2 03/30/2017 Comp Metabolic Vwh181 BUN 20 mg/dL 03/30/2017 Comp Metabolic Wjd701 B/C Ratio 16.9 Ratio 03/30/2017 Comp Metabolic Bph436 CALCIUM 9.2 mg/dL 03/30/2017 Comp Metabolic Tbl940 ALK PHOS 83 U/L 03/30/2017 Comp Metabolic Uqi002 AST(SGOT) 17 U/L 03/30/2017 Comp Metabolic Lag527 ALT(SGPT) 19 U/L 03/30/2017 Comp Metabolic Ddh517 BILI T 0.3 mg/dL 03/30/2017 Comp Metabolic Icc550 ALBUMIN 3.9 g/dL 03/30/2017 Comp Metabolic Ooc208 TPRO 7.2 g/dL 03/30/2017 Comp Metabolic Gib287 GLOB 3.3 g/dL 03/30/2017 Comp Metabolic Atq828 A/G Ratio 1.2 Ratio 03/30/2017 Comp Metabolic Ilp381 Osmo 283 mOsmo 03/30/2017 Tsh Ord6 TSH (3rd IS) 1.40 uIU/mL 03/30/2017 Clostridium Diff Tox A/B Prq696 Cdiff Positive 06/03/2016 Total Psa PSA 1.53 [...] 31.2 pg 03/20/2015 Cbc With Differential Ord2 [place]% 12.8 % 03/20/2015 Cbc With Differential Ord2 [...] 1.69 K/ul 03/20/2015 Cbc With Differential Ord2 [place] ABS# 0.8 K/ul 03/20/2015 Cbc With Differential Ord2 Eos ABS# 0.6 K/ul 03/20/2015 Cbc With Differential Ord2 Baso ABS# 0.0 K/ul 03/20/2015 Cbc With Differential Ord2 New Analyzer Notice Please note new ref ranges starting 03-04-2015 due to implemntation of new five part differential hematolgy analyzer. 03/20/2015 Total Psa Ord10 PSA 2.25 ng/mL 02/26/2015 Comp Metabolic Wmn966 NA 138 mEq/L 02/26/2015 Comp Metabolic Iis251 K 4.0 mEq/L 02/26/2015 Comp Metabolic Lwn968 CL 103 mEq/L 02/26/2015 Comp Metabolic Ble190 CO2 28.0 mEq/L 02/26/2015 Comp Metabolic Swy752 ANION GAP 11 02/26/2015 Comp Metabolic Zsq943 GLUCOSE 95 mg/dL 02/26/2015 Comp Metabolic Tud455 Creat 1.0 mg/dL 02/26/2015 Comp Metabolic Ofb005 eGFR 74 ml/min/1.73m2 02/26/2015 Comp Metabolic Bdt009 BUN 19 mg/dL 02/26/2015 Comp Metabolic Wzp117 B/C Ratio 18.3 Ratio 02/26/2015 Comp Metabolic Zyl553 CALCIUM 9.1 mg/dL 02/26/2015 Comp Metabolic Xil931 ALK PHOS 87 U/L 02/26/2015 Comp Metabolic Tlc982 AST(SGOT) 22 U/L 02/26/2015 Comp Metabolic Nkd053 ALT(SGPT) 24 U/L 02/26/2015 Comp Metabolic Fvd419 BILI T 0.4 mg/dL 02/26/2015 Comp Metabolic Jxa266 ALBUMIN 4.0 g/dL 02/26/2015 Comp Metabolic Lhb589 TPRO 7.4 g/dL 02/26/2015 Comp Metabolic Bkm706 GLOB 3.4 g/dL 02/26/2015 Comp Metabolic Bdl738 A/G Ratio 1.2 Ratio 02/26/2015 Comp Metabolic Ges587 Osmo 278 mOsmo 02/26/2015 Culture Urine [id number] URINE CULTURE SEE NOTES 12/15/2014 Culture Urine [id number] Continued Results 12/15/2014 Urine Culture Ucult Complete >100,000 col/ml aerobic growth sent to ref lab 12/12/2014 Comp Metabolic Vrj789 NA 136 mEq/L 12/05/2014 Comp Metabolic Qib507 K 4.3 mEq/L 12/05/2014 Comp Metabolic Cjt505 CL 104 mEq/L 12/05/2014 Comp Metabolic Cva158 CO2 29.0 mEq/L 12/05/2014 Comp Metabolic Pcr975 ANION GAP 7 12/05/2014 Comp Metabolic Bhk476 GLUCOSE 80 mg/dL 12/05/2014 Comp Metabolic Nlq510 Creat 1.1 mg/dL 12/05/2014 Comp Metabolic Reu363 eGFR 68 ml/min/1.73m2 12/05/2014 Comp Metabolic Vrm500 BUN 21 mg/dL 12/05/2014 Comp Metabolic Ozr080 B/C Ratio 18.8 Ratio 12/05/2014 Comp Metabolic Mej239 CALCIUM 9.3 mg/dL 12/05/2014 Comp Metabolic Jma153 ALK PHOS 81 U/L 12/05/2014 Comp Metabolic Rav900 AST(SGOT) 17 U/L 12/05/2014 Comp Metabolic Ofv272 ALT(SGPT) 16 U/L 12/05/2014 Comp Metabolic Gkh212 BILI T 0.3 mg/dL 12/05/2014 Comp Metabolic Opm789 ALBUMIN 4.0 g/dL 12/05/2014 Comp Metabolic Hpa206 TPRO 6.9 g/dL 12/05/2014 Comp Metabolic Mat644 GLOB 2.9 g/dL 12/05/2014 Comp Metabolic Hrj520 A/G Ratio 1.4 Ratio 12/05/2014 Comp Metabolic Hrg936 Osmo 274 mOsmo 12/05/2014 Cbc With Differential [...] Ord2 RDW 15.0 % 12/05/2014 Culture Urine [id number] URINE CULTURE SEE NOTES 11/27/2014 Culture Urine [id number] Continued Results 11/27/2014 Urine Culture Ucult Complete Growth of aerobe sent to ref lab 11/25/2014 B Type Natriuretic Peptide Hcc0144 B-ORNAMENT SETTER 121.00 pg/ml 10/08/2014 Cbc With Differential Ord2 [...] Folate Ord36 Folate 22.12 ng/mL 10/08/2014 B12 Cbi978 B12 >1500.00 pg/ml 10/08/2014 Comp Metabolic Ooc102 NA 135 mEq/L 10/08/2014 Comp Metabolic Jtg528 K 4.5 mEq/L 10/08/2014 Comp Metabolic Tht566 CL 104 mEq/L 10/08/2014 Comp Metabolic Drp301 CO2 25.0 mEq/L 10/08/2014 Comp Metabolic Gqs123 ANION GAP 11 10/08/2014 Comp Metabolic Wvg758 GLUCOSE 73 mg/dL 10/08/2014 Comp Metabolic Xtm691 Creat 1.1 mg/dL 10/08/2014 Comp Metabolic Geu307 eGFR 71 ml/min/1.73m2 10/08/2014 Comp Metabolic Qzx606 BUN 21 mg/dL 10/08/2014 Comp Metabolic Fry685 B/C Ratio 19.4 Ratio 10/08/2014 Comp Metabolic Cxe346 CALCIUM 9.0 mg/dL 10/08/2014 Comp Metabolic Ych401 ALK PHOS 73 U/L 10/08/2014 Comp Metabolic Rsb952 AST(SGOT) 15 U/L 10/08/2014 Comp Metabolic Glu236 ALT(SGPT) 14 U/L 10/08/2014 Comp Metabolic Cfr378 BILI T 0.4 mg/dL 10/08/2014 Comp Metabolic Ugr466 ALBUMIN 4.2 g/dL 10/08/2014 Comp Metabolic Fsx596 TPRO 7.1 g/dL 10/08/2014 Comp Metabolic Gng149 GLOB 2.9 g/dL 10/08/2014 Comp Metabolic Six843 A/G Ratio 1.4 Ratio 10/08/2014 Comp Metabolic Dtl940 Osmo 272 mOsmo 10/08/2014 B12 Bdu797 B12 554.00 pg/ml 09/16/2014 Tibc Ord40 Iron 108 ug/dl 09/16/2014 Tibc Ord40 UIBC 281 ug/dL 09/16/2014 Tibc Ord40 TIBC 389 ug/dL 09/16/2014 Tibc Ord40 Fe-%Sat 27.8 % 09/16/2014 Folate Ord36 Folate >23.20 ng/mL 09/16/2014 Comp Metabolic Gdw788 NA 134 mEq/L 09/16/2014 Comp Metabolic Gge422 K 4.6 mEq/L 09/16/2014 Comp Metabolic Ldc727 CL 103 mEq/L 09/16/2014 Comp Metabolic Ost288 CO2 25.0 mEq/L 09/16/2014 Comp Metabolic Fdu241 ANION GAP 11 09/16/2014 Comp Metabolic Kes131 GLUCOSE 93 mg/dL 09/16/2014 Comp Metabolic Med334 Creat 1.2 mg/dL 09/16/2014 Comp Metabolic Uct569 eGFR 65 ml/min/1.73m2 09/16/2014 Comp Metabolic Lyo131 BUN 23 mg/dL 09/16/2014 Comp Metabolic Cbx656 B/C Ratio 19.8 Ratio 09/16/2014 Comp Metabolic Crx876 CALCIUM 9.1 mg/dL 09/16/2014 Comp Metabolic Voo270 ALK PHOS 73 U/L 09/16/2014 Comp Metabolic Rsj755 AST(SGOT) 18 U/L 09/16/2014 Comp Metabolic Pex060 ALT(SGPT) 16 U/L 09/16/2014 Comp Metabolic Oxl447 BILI T 0.4 mg/dL 09/16/2014 Comp Metabolic Dnz658 ALBUMIN 4.0 g/dL 09/16/2014 Comp Metabolic Two627 TPRO 7.1 g/dL 09/16/2014 Comp Metabolic Cau614 GLOB 3.1 g/dL 09/16/2014 Comp Metabolic Ypp354 A/G Ratio 1.3 Ratio 09/16/2014 Comp Metabolic Oic207 Osmo 272 mOsmo 09/16/2014 Cbc With Differential [...] Ord22 FERRITIN 36.2 ng/mL 09/16/2014 Culture Urine [id number] URINE CULTURE SEE NOTES 09/08/2014 Urine Culture [...] Ord2 RDW 17.8 % 09/05/2014 Comp Metabolic Bgz121 NA 133 mEq/L 09/05/2014 Comp Metabolic Kfz850 K 4.9 mEq/L 09/05/2014 Comp Metabolic Kap721 CL 99 mEq/L 09/05/2014 Comp Metabolic Gol465 CO2 26.0 mEq/L 09/05/2014 Comp Metabolic Xnq717 ANION GAP 13 09/05/2014 Comp Metabolic Ste498 GLUCOSE 83 mg/dL 09/05/2014 Comp Metabolic Mhc594 Creat 1.5 mg/dL 09/05/2014 Comp Metabolic Phi070 eGFR 47 ml/min/1.73m2 09/05/2014 Comp Metabolic Vbi535 BUN 28 mg/dL 09/05/2014 Comp Metabolic Kuc121 B/C Ratio 18.3 Ratio 09/05/2014 Comp Metabolic Lhz786 CALCIUM 8.9 mg/dL 09/05/2014 Comp Metabolic Iqc949 ALK PHOS 71 U/L 09/05/2014 Comp Metabolic Ezc679 AST(SGOT) 18 U/L 09/05/2014 Comp Metabolic Lxo571 ALT(SGPT) 29 U/L 09/05/2014 Comp Metabolic Cjj663 BILI T 0.6 mg/dL 09/05/2014 Comp Metabolic Crh129 ALBUMIN 3.8 g/dL 09/05/2014 Comp Metabolic Oif323 TPRO 6.7 g/dL 09/05/2014 Comp Metabolic Hnl776 GLOB 2.9 g/dL 09/05/2014 Comp Metabolic Xzq260 A/G Ratio 1.3 Ratio 09/05/2014 Comp Metabolic Lml436 Osmo 271 mOsmo 09/05/2014 Total Psa Ord10 PSA 2.11 ng/mL 08/26/2014 Review of Systems System Result Effective Dates Constitutional recent illness 04/20/2018 Constitutional No chills [...] Result Effective Dates Notes Full Exam - ENT Constitutional general appearance [...] Procedure Codes Date THER/PROPH/DIAG INJ SC/IM CPT-4: 71931 04/20/2018 TRIAMCINOLONE ACET INJ NOS CPT-4: J3301 04/20/2018 URINALYSIS NONAUTO W/O SCOPE CPT-4: 06368 12/14/2017 URINALYSIS NONAUTO W/O SCOPE CPT-4: 77229 05/15/2017 URINALYSIS NONAUTO W/O SCOPE CPT-4: 15424 09/18/2015 ADMIN INFLUENZA VIRUS VAC CPT-4: G0008 12/31/2014 FLU VACC PRSV FREE INC ANTIG Formatting Model/CDA Sections, Assigned to/[place] French CPT-4: 64874Hjchuwc 12/31/2014 URINALYSIS NONAUTO W/O SCOPE CPT-4: 40278 12/10/2014 URINALYSIS NONAUTO W/O SCOPE CPT-4: 98771 11/24/2014 ROCEPHIN, PER 250 MG CPT- 4: J0696 09/05/2014 THER/PROPH/DIAG INJ SC/IM CPT-4: 26009 09/05/2014 URINALYSIS NONAUTO W/O SCOPE CPT-4: 53120 09/04/2014 Vital Signs Date Vital 04/20/2018 Blood Pressure 1: 118/60 Code: 8480-6 [...] 1: 138/60 Code: 8480-6 BMI: 37.2 Code: 14963-5 Heart Rate 1: 79 bpm Height: 5'9" SpO2: 91% Weight: 252 lbs 07/01/2016 Blood Pressure 1: 138/68 Code: 8480-6 BMI: 37.2 Code: 69606-5 Heart Rate 1: 69 bpm Height: 5'9" SpO2: 93% Weight: 252 lbs 05/05/2016 Blood Pressure 1: 136/78 Code: 8480-6 BMI: 39.3 Code: 58807-0 Heart Rate 1: 72 bpm Height: 5'9" SpO2: 97% Weight: 266 lbs 02/23/2016 Blood Pressure 1: 145/70 Code: 8480-6 BMI: 37.5 Code: 25949-0 Heart Rate 1: 80 bpm Height: 5'9" Weight: 254 lbs 09/16/2015 Blood Pressure 1: 140/62 Code: 8480-6 Heart Rate 1: 77 bpm Height: 5'9" SpO2: 93% Weight: 07/24/2015 Blood Pressure 1: 152/68 Code: 8480-6 BMI: 37.7 Code: 88503-9 Heart Rate 1: 73 bpm Height: 5'9" SpO2: 97% Weight: 255 lbs 03/20/2015 Blood Pressure 1: 146/74 Code: 8480-6 BMI: 38.1 Code: 58969-6 Heart Rate 1: 63 bpm Height: 5'9" Weight: 258 lbs 01/13/2015 Blood Pressure 1: 120/58 Code: 8480-6 Heart Rate 1: 52 bpm Height: 5'9" SpO2: 97% Temperature: 37.1 (C) / 98.7 (F) Weight: 12/05/2014 Blood Pressure 1: 134/54 Code: 8480-6 BMI: 36.3 Code: 39681-8 Heart Rate 1: 76 bpm Height: 5'9" SpO2: 93% Weight: 246 lbs 10/03/2014 Blood Pressure 1: 132/60 Code: 8480-6 Heart Rate 1: 76 bpm Height: SpO2: 95% Weight: 254 lbs 09/15/2014 Blood Pressure 1: 120/68 Code: 8480-6 BMI: 37.5 Code: 56095-3 Heart Rate 1: 76 bpm Height: 5'9" SpO2: 93% Weight: 254 lbs 09/05/2014 Blood Pressure 1: 110/50 Code: 8480-6 BMI: 37.4 Code: 04324-7 Heart Rate 1: 79 bpm Height: 5'9" SpO2: 96% Temperature: 36.3 (C) / 97.4 (F) Weight: 253 lbs 07/04/2014 Blood Pressure 1: 138/72 Code: 8480-6 BMI: 37.1 Code: 55272-4 Heart Rate 1: 72 bpm Height: 5'9" SpO2: 93% Weight: 251 lbs Functional Status No Functional Status data History of Present Illness Symptom Name Status Result Effective Date Notes Location frontal sinuses 04/20/2018 None Quality constant [...] discomfort 12/05/2014 occasional ache in chest- seeing sleeve presser operator in [place]- doing heart cath in October shortness of [...] discomfort 10/03/2014 occasional ache in chest- seeing sleeve presser operator in [place]- doing heart cath in [...] Codes Date EST. PATIENT, LEVEL III Diagnosis: Other acute sinusitis[ICD10: J01.80] Diagnosis: Other allergic rhinitis[ICD10: J30.89] Diagnosis: Cough[ICD10: R05] Mary Aburto MD, [facility] CPT-4: 33455 04/20/2018 ([id number]) 84246 EST. PATIENT, LEVEL IV Diagnosis: Essential (primary) hypertension[ICD10: I10] Diagnosis: Other iron deficiency anemias[ICD10: D50.8] Diagnosis: Weakness[ICD10: R53.1] Darleen Aburto MD, [facility] CPT-4: 95527 11/14/2017 28883 EST. PATIENT, LEVEL IV Diagnosis: Other lesions of oral mucosa[ICD10: K13.79] Diagnosis: Candidal stomatitis[ICD10: B37.0] Diagnosis: Generalized anxiety disorder[ICD10: F41.1] Diagnosis: Major depressive disorder, single episode, moderate[ICD10: F32.1] [facility] CPT-4: 68754 08/15/2017 73343 EST. PATIENT, LEVEL III Diagnosis: Generalized anxiety disorder[ICD10: F41.1] Diagnosis: Cauda equina syndrome[ICD10: G83.4] Diagnosis: Major depressive disorder, single episode, moderate[ICD10: F32.1] Mary Aburto MD, [facility] CPT-4: 72738 06/29/2017 79089 EST. PATIENT, LEVEL IV Diagnosis: Dysuria[ICD10: R30.0] Diagnosis: Other malaise[ICD10: R53.81] Diagnosis: Cauda equina syndrome[ICD10: G83.4] Diagnosis: Weakness[ICD10: R53.1] Mary Aburto MD, [facility] CPT-4: 66447 03/30/2017 ([id number]) 50630 EST. PATIENT, LEVEL III Diagnosis: Cough[ICD10: R05] Diagnosis: Enterocolitis due to Clostridium difficile[ICD10: A04.7] Kavya Aburto MD, [facility] CPT-4: 39284 10/07/2016 ([id number]) 97378 EST. 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 PATIENT, LEVEL III Diagnosis: Cauda equina syndrome[ICD10: G83.4] Diagnosis: Irritable bowel syndrome with diarrhea[ICD10: K58.0] Mary Aburto MD, [facility] CPT-4: 03191 05/05/2016 68564 EST. PATIENT, LEVEL III Diagnosis: Pain in right shoulder[ICD10: M25.511] Diagnosis: Weakness[ICD10: R53.1] Diagnosis: Shortness of breath[ICD10: R06.02] Mary Aburto MD, [facility] CPT-4: 24180 02/23/2016 49288 EST. PATIENT, LEVEL III Diagnosis: Essential (primary) hypertension[ICD10: I10] Diagnosis: Other insomnia[ICD10: G47.09] Diagnosis: Irritable bowel syndrome with diarrhea[ICD10: K58.0] Diagnosis: Shortness of breath[ICD10: R06.02] Diagnosis: Weakness[ICD10: R53.1] Mary Aburto MD, [facility] CPT-4: 82974 09/16/2015 83627 EST. PATIENT, LEVEL III Diagnosis: Diarrhea, unspecified[ICD10: R19.7] Diagnosis: Nausea[ICD10: R11.0] Mary Aburto MD, [facility] CPT-4: 78876 07/24/2015 27912 EST. PATIENT, LEVEL IV Diagnosis: Other iron deficiency anemias[ICD10: D50.8] Diagnosis: Rash and other nonspecific skin eruption[ICD10: R21] Diagnosis: Cauda equina syndrome[ICD10: G83.4] Diagnosis: Essential (primary) hypertension[ICD10: I10] Diagnosis: Other pruritus[ICD10: L29.8] Diagnosis: Shortness of breath[ICD10: R06.02] Mary Aburto MD, [facility] CPT-4: 53344 03/20/2015 82490 EST. PATIENT, LEVEL IV Diagnosis: Urinary tract infection, site not specified[ICD10: N39.0] Diagnosis: Umbilical hernia without obstruction or gangrene[ICD10: K42.9] Diagnosis: Cauda equina syndrome[ICD10: G83.4] Mary Aburto MD, [facility] CPT- 4: 04655 01/13/2015 ([id number]) 19453 EST. PATIENT, LEVEL IV Diagnosis: Iron deficiency anemia, unspecified[ICD10: D50.9] Diagnosis: Essential (primary) hypertension[ICD10: I10] Diagnosis: Hematuria, unspecified[ICD10: R31.9] Kavya Aburto MD, [facility] CPT-4: 32618 12/05/2014 ([id number]) 59184 EST. PATIENT, LEVEL IV Diagnosis: ESSENTIAL HYPERTENSION[ICD9: 401.9] Diagnosis: COPD (chronic obstructive pulmonary disease)[ICD9: 496] Diagnosis: ANEMIA[ICD9: 285.9] Diagnosis: SHORTNESS OF BREATH[ICD9: 786.05] Kavya Aburto MD, [facility] CPT- 4: 79599 10/03/2014 ([id number] 87153 EST. PATIENT, LEVEL IV Diagnosis: ESSENTIAL HYPERTENSION[ICD9: 401.9] Diagnosis: ANEMIA[ICD9: 285.9] Diagnosis: MALAISE AND FATIGUE[ICD9: 780.79] Darleen Aburto MD, [facility] CPT- 4: 21422 09/15/2014 ([id number]) 93343 EST. PATIENT, LEVEL III Diagnosis: UTI[ICD9: 599.0] Diagnosis: Chronic back pain[ICD9: 724.5] Kavya Aburto MD, [facility] CPT-4: 69539 09/05/2014 ([id number]) OFFICE VISIT, NEW - LEVEL 4 Diagnosis: ESSENTIAL HYPERTENSION[ICD9: 401.9] Diagnosis: THRUSH[ICD9: 112.0] Diagnosis: Hyperlipidemia[ICD9: 272.4] Diagnosis: COPD (chronic obstructive pulmonary disease)[ICD9: 496] Diagnosis: Cauda equina syndrome[ICD9: 344.60] Diagnosis: History of prostate cancer[ICD9: V10.46] Kavya Aburto MD, [facility] CPT-4: 91423 07/04/2014 Plan of Care Planned Activity Notes Codes Status Date Visit Plan: Sinusitis - Pt has acute [...] allergy spray. 04/20/2018 Appointment: Mary Alan WPtel: [address] [place], [place] [phone] (15 min) Moderate 04/20/2018 Patient Education: Patient Medication Summary Completed 04/20/2018 Appointment: Lab Draw 12/14/2017 Patient Education: Patient Medication Summary Completed 12/14/2017 [phone] [facility] (15 min) Moderate 11/28/2017 Visit Plan: [...] culture report. 11/14/2017 Appointment: [phone] [facility] [place] (15 min) Moderate 11/14/2017 Patient [...] this patient. 08/15/2017 Appointment: Mary Alan WPtel: [phone] [facility] (30 min) Complex 08/15/2017 Patient Education: Patient Medication Summary Completed 08/15/2017 Appointment: Mary Alan WPtel: [phone] [facility] (15 min) Moderate 08/08/2017 Appointment: Mary Alan WPtel: [phone] [facility]66[facility] (15 min) Moderate 08/03/2017 Visit Plan: Cauda [...] symptoms. 06/29/2017 Appointment: Mary Alan WPtel: [phone] [facility] [place] (15 min) Moderate 06/29/2017 Patient Education: [...] not resolve 10/07/2016 App[facility]ment: [phone] (30 min) Complex 10/07/2016 Patient Education: Patient Medication Summary Completed 10/07/2016 Patient Education: Obesity Completed 10/07/2016 Visit Plan: Cauda equina-chronic back pain-generalized weakness- bilateral shoulder pain/weakness-OA knees-patient to contact juan blancas for mobility paperwork-will ask PT to do a mobility exam through [facility]. Patient is non ambulatory due to [...] pain-generalized weakness- right shoulder pain/weakness-[facility]will ask PT to do a mobility exam through [facility] Drug induced constipation-rx for movantik. 07/01/2016 Appointment: Kavya Subramanian WPtel: [phone] (30 min) Complex 07/01/2016 Patient Education: Patient [...] his surgery. 05/05/2016 Appointment: Mary Alan WPtel: [address] [place], [place] [phone] Surgical Clearance 05/05/2016 Patient Education: Patient Medication [...] [place]. 02/23/2016 Appointment: Mary Alan WPtel: [facility] (30 min) Complex 02/23/2016 Patient Education: Patient Medication Summary Completed 02/23/2016 Appointment: Mary Alan WPtel: [facility] (30 min) Complex 02/19/2016 Appointment: Darleen Aburto WPtel: [address] [place], [place] [phone] (15 min) Moderate 10/14/2015 Appointment: Lab Draw [...] having loose bowel movements. Keep appointment with Research Food Technologist Make an appointment with sleeve presser operator - to follow up on shortness of breath. Weakness - pt is to contact Juan Godoy in [facility] and Call clinic when he is [...] not improved. 07/24/2015 Appointment: Kavya Subramanian WPtel: [address] [place], [place] [phone] (30 min) [facility] 07/24/2015 Patient Education: Patient Medication Summary [...] and hypertension. 09/15/2014 Appointment: Darleen Aburto WPtel: [address] [place], [place] [id number] (15 min) Moderate 09/15/2014 Patient Education: Patient [...] equina-increased incontinence of bowels-recommend follow up with research specialist-will discuss repeat MRI with Dr Aburto-keep [...] Education: Hypertension Completed 07/04/2014 Instructions Comment . Thrush/oral pain- swab obtained - Pt [...] been appropriately prescribed for this patient. . Hypertension - well controlled - continue [...] chair - [facility] . Pt complains of abdominal pain, states [...] as directed-call if symptoms do not resolve will start you on augmentin - check a urine sample 48 hours after it is finished steroid shot today and steroid pill (start tomorrow) let us know what your sleeve presser operator says at your appointment chest x-ray [...] in the nasal steroid allergy spray. . Gastroenteritis - Pt is to get [...] incontinence of bowels- recommend follow up with research specialist-will discuss repeat MRI with Dr Aburto-keep follow up appointment with Dr Aburto in 10 days Nikolai Montalvo to do PT evaluation for motorized wheelchair through [facility] . Cauda equina-chronic back pain-generalized weakness-bilateral shoulder pain/weakness- OA knees-patient to contact [facility] for mobility paperwork-will ask PT to do a mobility exam through [facility]. Patient is non ambulatory due to [...] assessment details. Drug induced constipation-rx for movantik. Movjacquie Montalvo to do PT evaluation for motorized wheelchair through [facility] . Cauda equina-chronic back pain-generalized weakness-right shoulder pain/weakness- patient to contact [facility] paperwork-will ask PT to do a mobility exam through [facility] Drug induced constipation-rx for movantik. 1. check your blood pressures 3 times [...] Peng 4. Make an appointment with your sleeve presser operator - to follow up on shortness of breath. 5. Call us when you here about the mobility paperwork and we will fill out the paperwork. [facility] Mobility in [facility] . Hypertension - The patient has [...] having loose bowel movements. Keep appointment with Research Food Technologist Make an appointment with sleeve presser operator - to follow up on shortness of breath. Weakness - pt is to contact Juan Godoy in [facility] and Call clinic when he is [...] 2 pills daily. Will consult Tiffany Bullard [place] PT. Cauda Equina - stable - continue [...]
--- OUTSIDE RECORDS SUMMARY | 2018-07-19 09:36 | XMS REPORT | CCD ---
Author Author Kavya Subramanian Organization [facility] Address [address] [place] [address] Phone Care Team Providers Care Assistant Manager Quality Management Name Role Phone PP Unavailable CCM Unavailable Summary Purpose Interface Exchange Insurance Providers Payer name Policy type / Coverage type Covered alliance party ID Effective Begin Date Effective End Date WPS Medicare Part B Commercial Insurance [id number] Unknown Unknown HEALTHCHOICE Commercial Insurance [id number] Unknown Unknown Family history Father Diagnosis Age At Onset Coronary Artery Disease Unknown Mother Diagnosis Age At Onset Arthritis Unknown Sister Diagnosis Age At Onset Alzheimer's Disease Unknown Social History Social History Element Codes Description Effective Dates Marital status Unknown 07/04/2014 Number of children Unknown 2 07/04/2014 Living arrangements Unknown House 07/04/[address]: 0565885 Quit over 10 years ago 07/04/2014 Alcohol history Unknown occasionally drinks alcohol 07/04/2014 Frequency of drinks SNOMED CT: 228706116 Drinks rarely 07/04/2014 Allergies, Adverse Reactions, Alerts Substance Reaction Codes Entered Date Inactivated Date Status * NO KNOWN FOOD ALLERGIES Unknown 07/04/2014 No Inactive Date Active Iodine rash, pruritis, RxNorm: 5933 03/04/2015 No Inactive Date Active tramadol pruritis RxNorm: 05392 07/04/2014 No Inactive Date Active Past Medical [...] Start Date Stop Date Status Fill Instructions prednisone 20 mg tablet RxNorm: 769174 2 Tablet(s) PO daily 04/20/2018 04/24/2018 Active Kenalog 40 mg/mL suspension for injection RxNorm: 4049200 Milliliter(s) Inj 04/20/2018 04/20/2018 Inactive Augmentin 500 mg-125 mg tablet RxNorm: 253587 1 Tablet(s) PO TID 04/20/2018 04/26/2018 Active oxycodone 5 mg tablet RxNorm: 0687077 4 Tablet(s) PO daily 04/12/2018 06/25/2018 Active potassium chloride ER 20 mEq tablet,extended release RxNorm: 331355 1 TABLET(S) PO DAILY 03/09/2018 03/03/2019 Active oxycodone 5 mg tablet RxNorm: 2821456 4 Tablet(s) PO daily 01/18/2018 04/02/2018 Inactive Augmentin 500 mg-125 mg tablet RxNorm: 744235 1 Tablet(s) PO TID 12/14/2017 12/23/2017 Inactive take probiotic bid x 10 days pantoprazole 40 mg tablet,delayed release RxNorm: 604659 TAKE 1 TABLET BY MOUTH DAILY 12/11/2017 12/05/2018 Active Augmentin 500 mg-125 mg tablet RxNorm: 115503 1 Tablet(s) PO TID 11/17/2017 11/22/2017 Inactive take probiotic bid x 7 days lisinopril 40 mg tablet RxNorm: 935219 TAKE 1 TABLET BY MOUTH DAILY 11/06/2017 08/02/2018 Active oxycodone 5 mg tablet RxNorm: 3357468 4 Tablet(s) PO daily 10/16/2017 12/29/2017 Inactive Cymbalta 30 mg capsule,delayed release RxNorm: 682213 2 Capsule(s) PO daily 08/17/2017 02/12/2018 Inactive Zoloft 25 mg tablet RxNorm: 888503 1 TABLET(S) PO DAILY X 5 DAYS THEN INCREASE TO 50MG DAILY 08/16/2017 No Stop Date Active Cymbalta 30 mg capsule,delayed release RxNorm: 208541 1 Capsule(s) PO 1 CAPSULE(S) PO DAILY X 1 WEEK, THEN INCREASE TO 2 DAILY 08/15/2017 08/16/2017 Inactive Patient requests 90 days supply diclofenac sodium 75 mg tablet,delayed release RxNorm: 141549 1 TABLET(S) PO BID 08/14/2017 05/10/2018 Active oxycodone 5 mg tablet RxNorm: 1582977 4 Tablet(s) PO daily 08/01/2017 10/14/2017 Inactive valacyclovir 1 gram tablet RxNorm: 382725 1 Tablet(s) PO TID 07/12/2017 07/11/2017 Inactive Zoloft 50 mg tablet RxNorm: 163389 1 Tablet(s) PO daily 07/12/2017 08/01/2017 Inactive valacyclovir 1 gram tablet RxNorm: 861752 1 Tablet(s) PO TID 07/12/2017 07/18/2017 Inactive Zoloft 50 mg tablet RxNorm: 457607 1 Tablet(s) PO daily 07/12/2017 07/11/2017 Inactive Zoloft 25 mg tablet RxNorm: 822517 1 Tablet(s) PO daily x 5 days then increase to 50mg daily 07/11/2017 07/11/2017 Inactive Cymbalta 30 mg capsule,delayed release RxNorm: 334148 1 Capsule(s) PO daily x 1 week, then increase to 2 daily 06/30/2017 06/29/2017 Inactive Cymbalta 30 mg capsule,delayed release RxNorm: 026941 1 CAPSULE(S) PO DAILY X 1 WEEK, THEN INCREASE TO 2 DAILY 06/30/2017 07/04/2017 Inactive Patient requests 90 days supply Augmentin 875 mg-125 mg tablet RxNorm: 066724 1 Tablet(s) PO BID 05/22/2017 05/28/2017 Inactive Probiotic QID while on antibiotics Bactrim DS 800 mg-160 mg tablet RxNorm: 502472 1 Tablet(s) PO BID 05/22/2017 05/21/2017 Inactive Probiotic QID while on antibiotics Bactrim DS 800 mg-160 mg tablet RxNorm: 928440 1 Tablet(s) PO BID 05/22/2017 05/28/2017 Inactive Probiotic QID while on antibiotics Augmentin 875 mg-125 mg tablet RxNorm: 974477 1 Tablet(s) PO BID 05/22/2017 05/21/2017 Inactive Probiotic QID while on antibiotics Cipro 500 mg tablet RxNorm: 519563 1 Tablet(s) PO BID 04/21/2017 04/30/2017 Inactive Take probiotic while on ABT Cipro 500 mg tablet RxNorm: 929597 1 Tablet(s) PO BID 04/21/2017 04/20/2017 Inactive Diflucan 150 mg tablet RxNorm: 622682 1 Tablet(s) PO daily 04/19/2017 11/13/2017 Inactive Diflucan 150 mg tablet RxNorm: 281640 1 Tablet(s) PO daily 04/19/2017 04/18/2017 Inactive oxycodone 5 mg tablet RxNorm: 8786188 4 Tablet(s) PO daily 04/17/2017 06/30/2017 Inactive gabapentin 600 mg tablet RxNorm: 496527 TABLET(S) TAKE 1 TABLET BY MOUTH TWICE DAILY 04/14/2017 04/08/2018 Inactive Rocephin 1 gram solution for injection RxNorm: 702265 1 Inj daily 04/05/2017 04/11/2017 Inactive Rocephin 1 gram solution for injection RxNorm: 835212 1 Inj daily 04/04/2017 04/04/2017 Inactive lidocaine (PF) 10 mg/mL (1 %) injection solution RxNorm: 3804007 1 Milliliter(s) Inj daily 04/04/2017 04/10/2017 Inactive Use to administer rocephin lidocaine (PF) 10 mg/mL (1 %) injection solution RxNorm: 8791848 1 Milliliter(s) Inj daily 04/04/2017 04/03/2017 Inactive Use to administer rocephin Rocephin 1 gram solution for injection RxNorm: 245486 1 Inj daily 04/04/2017 04/03/2017 Inactive Augmentin 500 mg-125 mg tablet RxNorm: 543482 1 Tablet(s) PO TID 03/31/2017 04/03/2017 Inactive Augmentin 500 mg-125 mg tablet RxNorm: 613186 1 Tablet(s) PO TID 03/31/2017 03/30/2017 Inactive Effexor XR 75 mg capsule,extended release RxNorm: 275361 TAKE 3 CAPSULES BY MOUTH EVERY MORNING 03/24/2017 11/13/2017 Inactive potassium chloride ER 20 mEq tablet,extended release RxNorm: 328939 1 TABLET(S) PO DAILY 03/13/2017 03/07/2018 Inactive lisinopril 40 mg tablet RxNorm: 058032 TAKE 1 TABLET BY MOUTH DAILY 02/06/2017 11/02/2017 Inactive pantoprazole 40 mg tablet,delayed release RxNorm: 695588 TAKE 1 TABLET BY MOUTH DAILY 12/19/2016 12/10/2017 Inactive oxycodone 5 mg tablet RxNorm: 5187496 4 Tablet(s) PO daily 12/19/2016 03/03/2017 Inactive diclofenac sodium 75 mg tablet,delayed release RxNorm: 475434 1 TABLET(S) PO BID 11/17/2016 08/13/2017 Inactive gabapentin 600 mg tablet RxNorm: 082613 TABLET(S) TAKE 1 TABLET BY MOUTH TWICE DAILY 10/14/2016 04/11/2017 Inactive Flagyl 500 mg tablet RxNorm: 968000 1 Tablet(s) PO TID 10/07/2016 10/16/2016 Inactive oxycodone 5 mg tablet RxNorm: 1290892 4 Tablet(s) PO daily 10/03/2016 12/16/2016 Inactive Effexor XR 75 mg capsule,extended release RxNorm: 821436 TAKE 3 CAPSULES BY MOUTH EVERY MORNING 09/22/2016 11/20/2016 Inactive Patient requests 90 days supply lisinopril 40 mg tablet RxNorm: 653106 TAKE 1 TABLET BY MOUTH DAILY 08/01/2016 01/27/2017 Inactive Effexor XR 75 mg capsule,extended release RxNorm: 077120 TAKE 3 CAPSULES BY MOUTH EVERY MORNING 07/21/2016 09/21/2016 Inactive oxycodone 5 mg tablet RxNorm: 8666926 4 Tablet(s) PO daily 07/11/2016 09/23/2016 Inactive Movantik 25 mg tablet RxNorm: 0717075 1 Tablet(s) PO daily 07/01/2016 11/13/2017 Inactive potassium chloride ER 20 mEq tablet,extended release RxNorm: 974415 1 TABLET(S) PO DAILY 06/14/2016 03/10/2017 Inactive Flagyl 500 mg tablet RxNorm: 395789 1 Tablet(s) PO TID 06/03/2016 06/12/2016 Inactive Flagyl 500 mg tablet RxNorm: 359834 1 Tablet(s) PO TID 06/03/2016 06/02/2016 Inactive oxycodone 5 mg tablet RxNorm: 9166533 4 Tablet(s) PO daily 04/27/2016 07/10/2016 Inactive Tamiflu 75 mg capsule RxNorm: 344395 1 Capsule(s) PO daily 04/19/2016 04/28/2016 Inactive Tamiflu 75 mg capsule RxNorm: 025478 1 Capsule(s) PO daily 04/19/2016 04/18/2016 Inactive Effexor XR 75 mg capsule,extended release RxNorm: 512589 TAKE 3 CAPSULES BY MOUTH EVERY MORNING 02/18/2016 04/17/2016 Inactive diclofenac sodium 75 mg tablet,delayed release RxNorm: 413533 1 TABLET(S) PO BID 02/18/2016 11/13/2016 Inactive Effexor XR 75 mg capsule,extended release RxNorm: 221886 Capsule(s) TAKE 3 CAPSULES BY MOUTH EVERY MORNING 02/17/2016 08/14/2016 Inactive oxycodone 5 mg tablet RxNorm: 9066521 4 Tablet(s) PO daily 02/04/2016 04/26/2016 Inactive clopidogrel 75 mg tablet RxNorm: 017636 1 TABLET(S) PO QAM 02/01/2016 01/25/2017 Inactive gabapentin 600 mg tablet RxNorm: 061709 Tablet(s) TAKE 1 TABLET BY MOUTH TWICE DAILY 02/01/2016 10/13/2016 Inactive Effexor XR 75 mg capsule,extended release RxNorm: 521995 TAKE 3 CAPSULES BY MOUTH EVERY MORNING 01/11/2016 02/09/2016 Inactive pantoprazole 40 mg tablet,delayed release RxNorm: 444893 TAKE 1 TABLET BY MOUTH DAILY 12/22/2015 12/15/2016 Inactive Effexor XR 75 mg capsule,extended release RxNorm: 889277 TAKE 3 CAPSULES BY MOUTH EVERY MORNING 11/16/2015 01/14/2016 Inactive lisinopril 40 mg tablet RxNorm: 979102 TAKE 1 TABLET BY MOUTH DAILY 11/05/2015 07/31/2016 Inactive Effexor XR 75 mg capsule,extended release RxNorm: 799292 TAKE 3 CAPSULES BY MOUTH EVERY MORNING 09/22/2015 11/20/2015 Inactive Augmentin 500 mg-125 mg tablet RxNorm: 054695 1 Tablet(s) PO TID 09/18/2015 09/24/2015 Inactive Anoro Ellipta 62.5 mcg-25 mcg/actuation powder for inhalation RxNorm: 4210564 1 INH daily 08/20/2015 02/15/2016 Inactive Anoro Ellipta 62.5 mcg-25 mcg/actuation powder for inhalation RxNorm: 9730079 1 INH DAILY 08/20/2015 11/13/2017 Inactive lisinopril 40 mg tablet RxNorm: 134539 TAKE 1 TABLET BY MOUTH DAILY 08/10/2015 11/04/2015 Inactive gabapentin 600 mg tablet RxNorm: 850263 TAKE 1 TABLET BY MOUTH TWICE DAILY 08/10/2015 01/31/2016 Inactive terazosin 2 mg capsule RxNorm: 481133 TAKE ONE CAPSULE BY MOUTH EVERY DAY 07/27/2015 08/29/2016 Inactive hyoscyamine 0.125 mg sublingual tablet RxNorm: 9063254 1 Tablet(s) SL TID as needed 07/24/2015 08/02/2015 Inactive metronidazole 500 mg tablet RxNorm: 343731 1 Tablet(s) PO TID 07/24/2015 07/30/2015 Inactive Effexor XR 75 mg capsule,extended release RxNorm: 825787 TAKE 3 CAPSULES BY MOUTH EVERY MORNING 07/23/2015 09/20/2015 Inactive oxycodone 5 mg tablet RxNorm: 6161009 4 Tablet(s) PO daily 06/26/2015 02/03/2016 Inactive potassium chloride ER 20 mEq tablet,extended release RxNorm: 173086 1 Tablet(s) PO daily 06/25/2015 06/13/2016 Inactive oxycodone 5 mg tablet RxNorm: 4666751 4 Tablet(s) PO daily 04/17/2015 06/25/2015 Inactive rx written Anoro Ellipta 62.5 mcg-25 mcg/actuation powder for inhalation RxNorm: 4148883 1 INH daily 04/17/2015 08/19/2015 Inactive potassium chloride ER 20 mEq tablet,extended release RxNorm: 640265 1 Tablet(s) PO daily 03/23/2015 06/24/2015 Inactive triamcinolone acetonide 0.1 % topical cream RxNorm: 5120930 1 Application TOP BID 03/20/2015 No Stop Date Active carvedilol 12.5 mg tablet RxNorm: 599241 1 TABLET(S) PO BID 02/23/2015 08/21/2015 Inactive diclofenac sodium 75 mg tablet,delayed release RxNorm: 286694 1 Tablet(s) PO BID 02/18/2015 02/12/2016 Inactive carvedilol 12.5 mg tablet RxNorm: 949681 1 Tablet(s) PO BID 02/17/2015 02/11/2016 Inactive furosemide 40 mg tablet RxNorm: 769758 1 Tablet(s) PO daily 02/17/2015 02/11/2016 Inactive lisinopril 40 mg tablet RxNorm: 294987 TAKE 1 TABLET BY MOUTH DAILY 02/16/2015 08/09/2015 Inactive ceftriaxone 1 gram solution for injection RxNorm: 2201240 1 Gram(s) Inj daily mix with lidocaine 01/14/2015 01/17/2015 Inactive please supply 4 bottles of 1gram rocephin IM with 1 bottle of lidocaine 1% for home health to administer to pt starting 01/15 ceftriaxone 1 gram solution for injection RxNorm: 1237238 1 Gram(s) Inj daily 01/14/2015 01/13/2015 Inactive please supply 4 bottles of 1gram rocephin IM with 1 bottle of lidocaine 1% for home health to administer to pt starting 01/15 Augmentin 500 mg-125 mg tablet RxNorm: 820586 1 Tablet(s) PO BID 01/13/2015 01/22/2015 Inactive Keflex 500 mg capsule RxNorm: 847712 1 Capsule(s) PO TID 12/12/2014 12/11/2014 Inactive Keflex 500 mg capsule RxNorm: 329743 1 Capsule(s) PO TID 12/12/2014 12/17/2014 Inactive Augmentin 500 mg-125 mg tablet RxNorm: 001577 1 Tablet(s) PO BID 11/28/2014 12/02/2014 Inactive Augmentin 500 mg-125 mg tablet RxNorm: 014720 1 Tablet(s) PO BID 11/28/2014 11/27/2014 Inactive Cipro 500 mg tablet RxNorm: 435344 1 Tablet(s) PO BID 11/24/2014 11/27/2014 Inactive gabapentin 600 mg tablet RxNorm: 315728 1 Tablet(s) PO BID 11/17/2014 08/13/2015 Inactive gabapentin 600 mg tablet RxNorm: 624131 1 Tablet(s) PO BID 11/17/2014 11/16/2014 Inactive oxycodone 5 mg tablet RxNorm: 9015502 4 Tablet(s) PO daily 11/07/2014 02/04/2015 Inactive rx written Effexor XR 75 mg capsule,extended release RxNorm: 665038 3 Capsule(s) 225 PO QAM 11/05/2014 03/04/2015 Inactive clopidogrel 75 mg tablet RxNorm: 248737 1 Tablet(s) PO QAM 11/05/2014 01/28/2016 Inactive Effexor XR 75 mg capsule,extended release RxNorm: 260170 3 Capsule(s) 225 PO QAM 11/03/2014 11/04/2014 Inactive carvedilol 12.5 mg tablet RxNorm: 625718 1 Tablet(s) PO BID 10/28/2014 02/16/2015 Inactive Effexor XR 75 mg capsule,extended release RxNorm: 017601 3 Capsule(s) 225 PO QAM 10/28/2014 11/02/2014 Inactive Effexor XR 75 mg capsule,extended release RxNorm: 046973 3 Capsule(s) 225 PO QAM 10/28/2014 10/27/2014 Inactive carvedilol 12.5 mg tablet RxNorm: 715947 1 Tablet(s) PO BID 10/28/2014 10/27/2014 Inactive ceftriaxone 1 gram solution for injection RxNorm: 4298526 Inj 09/05/2014 09/05/2014 Inactive Cipro 500 mg tablet RxNorm: 634647 1 Tablet(s) PO BID 09/04/2014 09/03/2014 Inactive Cipro 500 mg tablet RxNorm: 205159 1 Tablet(s) PO BID 09/04/2014 09/10/2014 Inactive oxycodone 5 mg tablet RxNorm: 5171315 4 Tablet(s) PO daily 08/20/2014 11/06/2014 Inactive rx written lisinopril 40 mg tablet RxNorm: 512120 TAKE 1 TABLET BY MOUTH DAILY 08/18/2014 02/13/2015 Inactive nystatin 100,000 unit/mL oral suspension RxNorm: 420527 5 Milliliter(s) PO QID 07/04/2014 07/13/2014 Inactive [SAVINGS FOR NON-COVERED DRUGS -- [id number], PCN: [id number], Group: [id number], ID# [id number], Questions: . THIS IS NOT INSURANCE.] WelChol 3.75 gram oral powder packet RxNorm: 417641 1 PO BID No Start Date Active amlodipine 10 mg tablet RxNorm: 653537 1 Tablet(s) PO QAM No Start Date Active One A Day oral RxNorm: 51082 oral No Start Date Active Vitamin D2 400 unit capsule RxNorm: 887122 1 Capsule(s) PO daily No Start Date Active aspirin 81 mg tablet,delayed release RxNorm: 790648 1 Tablet(s) PO daily No Start Date Active melatonin 5 mg disintegrating tablet RxNorm: 6270274 1 Tablet(s) PO QHS No Start Date Active Miralax 17 gram/dose oral powder RxNorm: 961864 17 Gram(s) PO daily in prune juice No Start Date Active clonidine HCl 0.1 mg tablet RxNorm: 232098 1 Tablet(s) PO QHS No Start Date Active hydrochlorothiazide oral RxNorm: 5487 oral No Start Date Active Lasix oral RxNorm: 689167 oral No Start Date 02/17/2015 Inactive potassium chloride 20 meq RxNorm: 592271 PO daily No Start Date 03/22/2015 Inactive Zoloft 25 mg tablet RxNorm: 232052 1 Tablet(s) PO daily x 5 days then increase to 50mg daily No Start Date 07/10/2017 Inactive oxycodone 5 mg tablet RxNorm: 7950046 3-4 Tablet(s) PO QHS No Start Date 08/19/2014 Inactive terazosin 2 mg capsule RxNorm: 037836 1 Capsule(s) PO daily No Start Date 07/26/2015 Inactive Effexor XR 75 mg capsule,extended release RxNorm: 849239 3 Capsule(s) 225 PO QAM No Start Date 10/27/2014 Inactive gabapentin 600 mg tablet RxNorm: 393135 1 Tablet(s) PO BID No Start Date 11/16/2014 Inactive pantoprazole 40 mg tablet,delayed release RxNorm: 290360 oral No Start Date 12/21/2015 Inactive Anoro Ellipta 62.5 mcg-25 mcg/actuation powder for inhalation RxNorm: 4146705 1 INH daily No Start Date 04/16/2015 Inactive diclofenac sodium 75 mg tablet,delayed release RxNorm: 775291 1 Tablet(s) PO BID No Start Date 02/17/2015 Inactive clopidogrel 75 mg tablet RxNorm: 837529 1 Tablet(s) PO QAM No Start Date 11/04/2014 Inactive lisinopril 40 mg tablet RxNorm: 774174 1 Tablet(s) PO daily No Start Date 08/17/2014 Inactive carvedilol 12.5 mg tablet RxNorm: 838252 1 Tablet(s) PO BID No Start Date 10/27/2014 Inactive Medication Administered Medication Codes Instructions Start Date Status Kenalog 40 mg/mL suspension for injection RxNorm: 6363334 Milliliter 04/20/2018 Active ceftriaxone 1 gram solution for injection RxNorm: 2989388 09/05/2014 No longer Active Immunizations Vaccine Codes [...] (3rd IS) 3.24 uIU/mL 11/14/2017 Comp Metabolic Mqh524 NA 137 mEq/L 11/14/2017 Comp Metabolic Ibi358 K 4.0 mEq/L 11/14/2017 Comp Metabolic Mrz000 CL 104 mEq/L 11/14/2017 Comp Metabolic Dxi879 CO2 23.0 mEq/L 11/14/2017 Comp Metabolic Afr529 ANION GAP 14 11/14/2017 Comp Metabolic Vib155 GLUCOSE 101 mg/dL 11/14/2017 Comp Metabolic Ctk477 Creat 1.1 mg/dL 11/14/2017 Comp Metabolic Zah370 eGFR 67 ml/min/1.73m2 11/14/2017 Comp Metabolic Qjz112 BUN 18 mg/dL 11/14/2017 Comp Metabolic Szd779 B/C Ratio 15.9 Ratio 11/14/2017 Comp Metabolic Uox984 CALCIUM 9.0 mg/dL 11/14/2017 Comp Metabolic Vsl190 ALK PHOS 81 U/L 11/14/2017 Comp Metabolic Ipl765 AST(SGOT) 19 U/L 11/14/2017 Comp Metabolic Bol924 ALT(SGPT) 18 U/L 11/14/2017 Comp Metabolic Gqz544 BILI T 0.3 mg/dL 11/14/2017 Comp Metabolic Nzk749 ALBUMIN 3.8 g/dL 11/14/2017 Comp Metabolic Exb732 TPRO 7.3 g/dL 11/14/2017 Comp Metabolic Mmu158 GLOB 3.5 g/dL 11/14/2017 Comp Metabolic Ejy831 A/G Ratio 1.1 Ratio 11/14/2017 Comp Metabolic Mam401 Osmo 276 mOsmo 11/14/2017 Cbc With Differential [...] 29.9 pg 11/14/2017 Cbc With Differential Ord2 Hawkins% 11.2 % 11/14/2017 Cbc With Differential Ord2 [...] 1.85 K/ul 11/14/2017 Cbc With Differential Ord2 Hawkins ABS# 1.0 K/ul 11/14/2017 Cbc With Differential Ord2 Eos ABS# 0.6 K/ul 11/14/2017 Cbc With Differential Ord2 Baso ABS# 0.0 K/ul 11/14/2017 Culture Urine [id number] URINE CULTURE SEE NOTES 05/22/2017 Culture Urine [id number] Continued Results 05/22/2017 Urine Culture Ucult Complete >100,000 col/ml aerobic growth sent to ref lab 05/16/2017 Culture Urine [id number] URINE CULTURE SEE NOTES 04/21/2017 Urine Culture [...] 30.9 pg 03/30/2017 Cbc With Differential Ord2 Hawkins% 13.0 % 03/30/2017 Cbc With Differential Ord2 [...] 1.69 K/ul 03/30/2017 Cbc With Differential Ord2 Hawkins ABS# 0.9 K/ul 03/30/2017 Cbc With Differential Ord2 Eos ABS# 0.5 K/ul 03/30/2017 Cbc With Differential Ord2 Baso ABS# 0.0 K/ul 03/30/2017 %Hba1C Gyt191 % HbA1c 01735- 6 5.8 % 03/30/2017 %Hba1C Vhz455 Gluc Ave 120 mg/dL 03/30/2017 Comp Metabolic Cra811 NA 140 mEq/L 03/30/2017 Comp Metabolic Syw077 K 4.0 mEq/L 03/30/2017 Comp Metabolic Tro936 CL 105 mEq/L 03/30/2017 Comp Metabolic Hjq833 CO2 25.0 mEq/L 03/30/2017 Comp Metabolic Xel015 ANION GAP 14 03/30/2017 Comp Metabolic Mkw309 GLUCOSE 108 mg/dL 03/30/2017 Comp Metabolic Pid891 Creat 1.2 mg/dL 03/30/2017 Comp Metabolic Keo356 eGFR 63 ml/min/1.73m2 03/30/2017 Comp Metabolic Mzo539 BUN 20 mg/dL 03/30/2017 Comp Metabolic Czs512 B/C Ratio 16.9 Ratio 03/30/2017 Comp Metabolic Frz763 CALCIUM 9.2 mg/dL 03/30/2017 Comp Metabolic Zey781 ALK PHOS 83 U/L 03/30/2017 Comp Metabolic Okr100 AST(SGOT) 17 U/L 03/30/2017 Comp Metabolic Jin431 ALT(SGPT) 19 U/L 03/30/2017 Comp Metabolic Grc800 BILI T 0.3 mg/dL 03/30/2017 Comp Metabolic Acw314 ALBUMIN 3.9 g/dL 03/30/2017 Comp Metabolic Yuw519 TPRO 7.2 g/dL 03/30/2017 Comp Metabolic Vhx829 GLOB 3.3 g/dL 03/30/2017 Comp Metabolic Vwm752 A/G Ratio 1.2 Ratio 03/30/2017 Comp Metabolic Yxc066 Osmo 283 mOsmo 03/30/2017 Tsh Ord6 TSH (3rd IS) 1.40 uIU/mL 03/30/2017 Clostridium Diff Tox A/B Hzp871 Cdiff Positive 06/03/2016 Total Psa PSA 1.53 [...] 31.2 pg 03/20/2015 Cbc With Differential Ord2 Hawkins% 12.8 % 03/20/2015 Cbc With Differential Ord2 [...] 1.69 K/ul 03/20/2015 Cbc With Differential Ord2 Hawkins ABS# 0.8 K/ul 03/20/2015 Cbc With Differential Ord2 Eos ABS# 0.6 K/ul 03/20/2015 Cbc With Differential Ord2 Baso ABS# 0.0 K/ul 03/20/2015 Cbc With Differential Ord2 New Analyzer Notice Please note new ref ranges starting 03-04-2015 due to implemntation of new five part differential hematolgy analyzer. 03/20/2015 Total Psa Ord10 PSA 2.25 ng/mL 02/26/2015 Comp Metabolic Aqn126 NA 138 mEq/L 02/26/2015 Comp Metabolic Oco634 K 4.0 mEq/L 02/26/2015 Comp Metabolic Sjm119 CL 103 mEq/L 02/26/2015 Comp Metabolic Hep734 CO2 28.0 mEq/L 02/26/2015 Comp Metabolic Grd754 ANION GAP 11 02/26/2015 Comp Metabolic Egh553 GLUCOSE 95 mg/dL 02/26/2015 Comp Metabolic Iog323 Creat 1.0 mg/dL 02/26/2015 Comp Metabolic Pyn349 eGFR 74 ml/min/1.73m2 02/26/2015 Comp Metabolic Glj261 BUN 19 mg/dL 02/26/2015 Comp Metabolic Pji389 B/C Ratio 18.3 Ratio 02/26/2015 Comp Metabolic Sog416 CALCIUM 9.1 mg/dL 02/26/2015 Comp Metabolic Clz438 ALK PHOS 87 U/L 02/26/2015 Comp Metabolic Kaw018 AST(SGOT) 22 U/L 02/26/2015 Comp Metabolic Oxf873 ALT(SGPT) 24 U/L 02/26/2015 Comp Metabolic Qan194 BILI T 0.4 mg/dL 02/26/2015 Comp Metabolic Fwu939 ALBUMIN 4.0 g/dL 02/26/2015 Comp Metabolic Kkj905 TPRO 7.4 g/dL 02/26/2015 Comp Metabolic Aes114 GLOB 3.4 g/dL 02/26/2015 Comp Metabolic Tts610 A/G Ratio 1.2 Ratio 02/26/2015 Comp Metabolic Qhm152 Osmo 278 mOsmo 02/26/2015 Culture Urine [id number] URINE CULTURE SEE NOTES 12/15/2014 Culture Urine [id number] Continued Results 12/15/2014 Urine Culture Ucult Complete >100,000 col/ml aerobic growth sent to ref lab 12/12/2014 Comp Metabolic Uih230 NA 136 mEq/L 12/05/2014 Comp Metabolic Sdk092 K 4.3 mEq/L 12/05/2014 Comp Metabolic Nyb605 CL 104 mEq/L 12/05/2014 Comp Metabolic Umd457 CO2 29.0 mEq/L 12/05/2014 Comp Metabolic Zop338 ANION GAP 7 12/05/2014 Comp Metabolic Bdy591 GLUCOSE 80 mg/dL 12/05/2014 Comp Metabolic Hqv150 Creat 1.1 mg/dL 12/05/2014 Comp Metabolic Gdi361 eGFR 68 ml/min/1.73m2 12/05/2014 Comp Metabolic Lfn361 BUN 21 mg/dL 12/05/2014 Comp Metabolic Bky222 B/C Ratio 18.8 Ratio 12/05/2014 Comp Metabolic Knv166 CALCIUM 9.3 mg/dL 12/05/2014 Comp Metabolic Psj530 ALK PHOS 81 U/L 12/05/2014 Comp Metabolic Rdd224 AST(SGOT) 17 U/L 12/05/2014 Comp Metabolic Nty635 ALT(SGPT) 16 U/L 12/05/2014 Comp Metabolic Zuu217 BILI T 0.3 mg/dL 12/05/2014 Comp Metabolic Uwn248 ALBUMIN 4.0 g/dL 12/05/2014 Comp Metabolic Hfq812 TPRO 6.9 g/dL 12/05/2014 Comp Metabolic Bfr291 GLOB 2.9 g/dL 12/05/2014 Comp Metabolic Rnj988 A/G Ratio 1.4 Ratio 12/05/2014 Comp Metabolic Nbp665 Osmo 274 mOsmo 12/05/2014 Cbc With Differential [...] Ord2 RDW 15.0 % 12/05/2014 Culture Urine [id number] URINE CULTURE SEE NOTES 11/27/2014 Culture Urine [id number] Continued Results 11/27/2014 Urine Culture Ucult Complete Growth of aerobe sent to ref lab 11/25/2014 B Type Natriuretic Peptide Lfd8813 B-MANAGER MANAGED CARE 121.00 pg/ml 10/08/2014 Cbc With Differential Ord2 [...] Folate Ord36 Folate 22.12 ng/mL 10/08/2014 B12 Mfk031 B12 >1500.00 pg/ml 10/08/2014 Comp Metabolic Eif084 NA 135 mEq/L 10/08/2014 Comp Metabolic Nfx192 K 4.5 mEq/L 10/08/2014 Comp Metabolic Rua794 CL 104 mEq/L 10/08/2014 Comp Metabolic Mfv754 CO2 25.0 mEq/L 10/08/2014 Comp Metabolic Pjv828 ANION GAP 11 10/08/2014 Comp Metabolic Qnl795 GLUCOSE 73 mg/dL 10/08/2014 Comp Metabolic Gdq631 Creat 1.1 mg/dL 10/08/2014 Comp Metabolic Vik072 eGFR 71 ml/min/1.73m2 10/08/2014 Comp Metabolic Jcq654 BUN 21 mg/dL 10/08/2014 Comp Metabolic Fqo399 B/C Ratio 19.4 Ratio 10/08/2014 Comp Metabolic Xzx512 CALCIUM 9.0 mg/dL 10/08/2014 Comp Metabolic Fvi219 ALK PHOS 73 U/L 10/08/2014 Comp Metabolic Lqe717 AST(SGOT) 15 U/L 10/08/2014 Comp Metabolic Eek524 ALT(SGPT) 14 U/L 10/08/2014 Comp Metabolic Wjd595 BILI T 0.4 mg/dL 10/08/2014 Comp Metabolic Pvm932 ALBUMIN 4.2 g/dL 10/08/2014 Comp Metabolic Pxr494 TPRO 7.1 g/dL 10/08/2014 Comp Metabolic Nuo107 GLOB 2.9 g/dL 10/08/2014 Comp Metabolic Ifh941 A/G Ratio 1.4 Ratio 10/08/2014 Comp Metabolic Emq241 Osmo 272 mOsmo 10/08/2014 B12 Blf011 B12 554.00 pg/ml 09/16/2014 Tibc Ord40 Iron 108 ug/dl 09/16/2014 Tibc Ord40 UIBC 281 ug/dL 09/16/2014 Tibc Ord40 TIBC 389 ug/dL 09/16/2014 Tibc Ord40 Fe-%Sat 27.8 % 09/16/2014 Folate Ord36 Folate >23.20 ng/mL 09/16/2014 Comp Metabolic Vrh409 NA 134 mEq/L 09/16/2014 Comp Metabolic Wln726 K 4.6 mEq/L 09/16/2014 Comp Metabolic Snw611 CL 103 mEq/L 09/16/2014 Comp Metabolic Qzp781 CO2 25.0 mEq/L 09/16/2014 Comp Metabolic Isb088 ANION GAP 11 09/16/2014 Comp Metabolic Ozs730 GLUCOSE 93 mg/dL 09/16/2014 Comp Metabolic Eei608 Creat 1.2 mg/dL 09/16/2014 Comp Metabolic Viy116 eGFR 65 ml/min/1.73m2 09/16/2014 Comp Metabolic Mhi989 BUN 23 mg/dL 09/16/2014 Comp Metabolic Yei362 B/C Ratio 19.8 Ratio 09/16/2014 Comp Metabolic Udw715 CALCIUM 9.1 mg/dL 09/16/2014 Comp Metabolic Zbe819 ALK PHOS 73 U/L 09/16/2014 Comp Metabolic Rzz338 AST(SGOT) 18 U/L 09/16/2014 Comp Metabolic Zgc041 ALT(SGPT) 16 U/L 09/16/2014 Comp Metabolic Zhx831 BILI T 0.4 mg/dL 09/16/2014 Comp Metabolic Wnp199 ALBUMIN 4.0 g/dL 09/16/2014 Comp Metabolic Hdu066 TPRO 7.1 g/dL 09/16/2014 Comp Metabolic Dnq244 GLOB 3.1 g/dL 09/16/2014 Comp Metabolic Apx359 A/G Ratio 1.3 Ratio 09/16/2014 Comp Metabolic Xix176 Osmo 272 mOsmo 09/16/2014 Cbc With Differential [...] Ord22 FERRITIN 36.2 ng/mL 09/16/2014 Culture Urine [id number] URINE CULTURE SEE NOTES 09/08/2014 Urine Culture [...] Ord2 RDW 17.8 % 09/05/2014 Comp Metabolic Jsi996 NA 133 mEq/L 09/05/2014 Comp Metabolic Yug467 K 4.9 mEq/L 09/05/2014 Comp Metabolic Mzh536 CL 99 mEq/L 09/05/2014 Comp Metabolic Hgi878 CO2 26.0 mEq/L 09/05/2014 Comp Metabolic Bxm637 ANION GAP 13 09/05/2014 Comp Metabolic Vze959 GLUCOSE 83 mg/dL 09/05/2014 Comp Metabolic Xyu667 Creat 1.5 mg/dL 09/05/2014 Comp Metabolic Ymv657 eGFR 47 ml/min/1.73m2 09/05/2014 Comp Metabolic Fbh803 BUN 28 mg/dL 09/05/2014 Comp Metabolic Eaf126 B/C Ratio 18.3 Ratio 09/05/2014 Comp Metabolic Wyu195 CALCIUM 8.9 mg/dL 09/05/2014 Comp Metabolic Vzt371 ALK PHOS 71 U/L 09/05/2014 Comp Metabolic Gkr082 AST(SGOT) 18 U/L 09/05/2014 Comp Metabolic Xtt128 ALT(SGPT) 29 U/L 09/05/2014 Comp Metabolic Vzc771 BILI T 0.6 mg/dL 09/05/2014 Comp Metabolic Dtr137 ALBUMIN 3.8 g/dL 09/05/2014 Comp Metabolic Qyh863 TPRO 6.7 g/dL 09/05/2014 Comp Metabolic Ehp860 GLOB 2.9 g/dL 09/05/2014 Comp Metabolic Wez335 A/G Ratio 1.3 Ratio 09/05/2014 Comp Metabolic Jfi352 Osmo 271 mOsmo 09/05/2014 Total Psa Ord10 [...] scooter 06/29/2017 None Full Exam - General 1995 Ears/Nose/Throat lips/teeth/gingiva Overall: benign lips 06/29/2017 None [...] Procedure Codes Date THER/PROPH/DIAG INJ SC/IM CPT-4: 30059 04/20/2018 TRIAMCINOLONE ACET INJ NOS CPT-4: J3301 04/20/2018 URINALYSIS NONAUTO W/O SCOPE CPT-4: 84248 12/14/2017 URINALYSIS NONAUTO W/O SCOPE CPT-4: 30178 05/15/2017 URINALYSIS NONAUTO W/O SCOPE CPT-4: 96665 09/18/2015 ADMIN INFLUENZA VIRUS VAC CPT-4: G0008 12/31/2014 FLU VACC PRSV FREE INC ANTIG Formatting Model/CDA Sections, Assigned to/[place] French CPT-4: 58508Ryoejbh 12/31/2014 URINALYSIS NONAUTO W/O SCOPE CPT-4: 97383 12/10/2014 URINALYSIS NONAUTO W/O SCOPE CPT-4: 48328 11/24/2014 ROCEPHIN, PER 250 MG CPT- 4: J0696 09/05/2014 THER/PROPH/DIAG INJ SC/IM CPT-4: 55767 09/05/2014 URINALYSIS NONAUTO W/O SCOPE CPT-4: 89540 09/04/2014 Vital Signs Date Vital 04/20/2018 Blood [...] 1: 138/60 Code: 8480-6 BMI: 37.2 Code: 87265-0 Heart Rate 1: 79 bpm Height: 5'9" SpO2: 91% Weight: 252 lbs 07/01/2016 Blood Pressure 1: 138/68 Code: 8480-6 BMI: 37.2 Code: 33919-3 Heart Rate 1: 69 bpm Height: 5'9" SpO2: 93% Weight: 252 lbs 05/05/2016 Blood Pressure 1: 136/78 Code: 8480-6 BMI: 39.3 Code: 15878-6 Heart Rate 1: 72 bpm Height: 5'9" SpO2: 97% Weight: 266 lbs 02/23/2016 Blood Pressure 1: 145/70 Code: 8480-6 BMI: 37.5 Code: 25492-7 Heart Rate 1: 80 bpm Height: 5'9" Weight: 254 lbs 09/16/2015 Blood Pressure 1: 140/62 Code: 8480-6 Heart Rate 1: 77 bpm Height: 5'9" SpO2: 93% Weight: 07/24/2015 Blood Pressure 1: 152/68 Code: 8480-6 BMI: 37.7 Code: 67914-4 Heart Rate 1: 73 bpm Height: 5'9" SpO2: 97% Weight: 255 lbs 03/20/2015 Blood Pressure 1: 146/74 Code: 8480-6 BMI: 38.1 Code: 31569-1 Heart Rate 1: 63 bpm Height: 5'9" Weight: 258 lbs 01/13/2015 Blood Pressure 1: 120/58 Code: 8480-6 Heart Rate 1: 52 bpm Height: 5'9" SpO2: 97% Temperature: 37.1 (C) / 98.7 (F) Weight: 12/05/2014 Blood Pressure 1: 134/54 Code: 8480-6 BMI: 36.3 Code: 03968-1 Heart Rate 1: 76 bpm Height: 5'9" SpO2: 93% Weight: 246 lbs 10/03/2014 Blood Pressure 1: 132/60 Code: 8480-6 Heart Rate 1: 76 bpm Height: SpO2: 95% Weight: 254 lbs 09/15/2014 Blood Pressure 1: 120/68 Code: 8480-6 BMI: 37.5 Code: 28228-7 Heart Rate 1: 76 bpm Height: 5'9" SpO2: 93% Weight: 254 lbs 09/05/2014 Blood Pressure 1: 110/50 Code: 8480-6 BMI: 37.4 Code: 50653-5 Heart Rate 1: 79 bpm Height: 5'9" SpO2: 96% Temperature: 36.3 (C) / 97.4 (F) Weight: 253 lbs 07/04/2014 Blood Pressure 1: 138/72 Code: 8480-6 BMI: 37.1 Code: 30726-3 Heart Rate 1: 72 bpm Height: 5'9" [...] discomfort 12/05/2014 occasional ache in chest- seeing data governance analyst in [place]- doing heart cath in October [...] discomfort 10/03/2014 occasional ache in chest- seeing data governance analyst in [place]- doing heart cath in October [...] data Encounters Encounter Performer Location Codes Date 31378 EST. PATIENT, LEVEL III Diagnosis: Other acute sinusitis[ICD10: J01.80] Diagnosis: Other allergic rhinitis[ICD10: J30.89] Diagnosis: Cough[ICD10: R05] Mary Aburto MD, [facility] CPT-4: 80196 04/20/2018 ([id number]) 72145 EST. PATIENT, LEVEL IV Diagnosis: Essential (primary) hypertension[ICD10: I10] Diagnosis: Other iron deficiency anemias[ICD10: D50.8] Diagnosis: Weakness[ICD10: R53.1] Darleen Aburto MD, [facility] CPT-4: 49788 11/14/2017 74313 EST. PATIENT, LEVEL IV Diagnosis: Other lesions of oral mucosa[ICD10: K13.79] Diagnosis: Candidal stomatitis[ICD10: B37.0] Diagnosis: Generalized anxiety disorder[ICD10: F41.1] Diagnosis: Major depressive disorder, single episode, moderate[ICD10: F32.1] Mary Aburto MD, [facility] CPT-4: 42354 08/15/2017 63600 EST. PATIENT, LEVEL III Diagnosis: Generalized anxiety disorder[ICD10: F41.1] Diagnosis: Cauda equina syndrome[ICD10: G83.4] Diagnosis: Major depressive disorder, single episode, moderate[ICD10: F32.1] Mary Aburto MD, [facility] CPT-4: 28386 06/29/2017 30264 EST. PATIENT, LEVEL IV Diagnosis: Dysuria[ICD10: R30.0] Diagnosis: Other malaise[ICD10: R53.81] Diagnosis: Cauda equina syndrome[ICD10: G83.4] Diagnosis: Weakness[ICD10: R53.1] Mary Aburto MD, [facility] CPT-4: 65760 03/30/2017 ([id number]) 61383 EST. PATIENT, LEVEL III Diagnosis: Cough[ICD10: R05] Diagnosis: Enterocolitis due to Clostridium difficile[ICD10: A04.7] Kavya Aburto MD, [facility] CPT-4: 75992 10/07/2016 ([id number]) 44477 EST. 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 PATIENT, LEVEL III Diagnosis: Cauda equina syndrome[ICD10: G83.4] Diagnosis: Irritable bowel syndrome with diarrhea[ICD10: K58.0] Mary Aburto MD, [facility] CPT-4: 90182 05/05/2016 96783 EST. PATIENT, LEVEL III Diagnosis: Pain in right shoulder[ICD10: M25.511] Diagnosis: Weakness[ICD10: R53.1] Diagnosis: Shortness of breath[ICD10: R06.02] Mary Aburto MD, [facility] CPT-4: 55508 02/23/2016 77694 EST. PATIENT, LEVEL III Diagnosis: Essential (primary) hypertension[ICD10: I10] Diagnosis: Other insomnia[ICD10: G47.09] Diagnosis: Irritable bowel syndrome with diarrhea[ICD10: K58.0] Diagnosis: Shortness of breath[ICD10: R06.02] Diagnosis: Weakness[ICD10: R53.1] Mary Aburto MD, [facility] CPT-4: 25710 09/16/2015 56496 EST. PATIENT, LEVEL III Diagnosis: Diarrhea, unspecified[ICD10: R19.7] Diagnosis: Nausea[ICD10: R11.0] Mary Aburto MD, [facility] CPT-4: 35887 07/24/2015 79085 EST. PATIENT, LEVEL IV Diagnosis: Other iron deficiency anemias[ICD10: D50.8] Diagnosis: Rash and other nonspecific skin eruption[ICD10: R21] Diagnosis: Cauda equina syndrome[ICD10: G83.4] Diagnosis: Essential (primary) hypertension[ICD10: I10] Diagnosis: Other pruritus[ICD10: L29.8] Diagnosis: Shortness of breath[ICD10: R06.02] Mary Aburto MD, [facility] CPT-4: 40829 03/20/2015 81896 EST. PATIENT, LEVEL IV Diagnosis: Urinary tract infection, site not specified[ICD10: N39.0] Diagnosis: Umbilical hernia without obstruction or gangrene[ICD10: K42.9] Diagnosis: Cauda equina syndrome[ICD10: G83.4] Mary Aburto MD, [facility] CPT- 4: 47104 01/13/2015 ([id number]) 17455 EST. PATIENT, LEVEL IV Diagnosis: Iron deficiency anemia, unspecified[ICD10: D50.9] Diagnosis: Essential (primary) hypertension[ICD10: I10] Diagnosis: Hematuria, unspecified[ICD10: R31.9] Kavya Aburto MD, [facility] CPT-4: 08741 12/05/2014 ([id number]) 96519 EST. PATIENT, LEVEL IV Diagnosis: ESSENTIAL HYPERTENSION[ICD9: 401.9] Diagnosis: COPD (chronic obstructive pulmonary disease)[ICD9: 496] Diagnosis: ANEMIA[ICD9: 285.9] Diagnosis: SHORTNESS OF BREATH[ICD9: 786.05] Kavya Aburto MD, [facility] CPT- 4: 49143 10/03/2014 ([id number]) 90946 EST. PATIENT, LEVEL IV Diagnosis: ESSENTIAL HYPERTENSION[ICD9: 401.9] Diagnosis: ANEMIA[ICD9: 285.9] Diagnosis: MALAISE AND FATIGUE[ICD9: 780.79] [facility] CPT- 4: 66462 09/15/2014 ([id number]) 16552 EST. PATIENT, LEVEL III Diagnosis: UTI[ICD9: 599.0] Diagnosis: Chronic back pain[ICD9: 724.5] [facility] CPT-4: 55519 09/05/2014 ([id number]) OFFICE VISIT, NEW - LEVEL 4 Diagnosis: ESSENTIAL HYPERTENSION[ICD9: 401.9] Diagnosis: THRUSH[ICD9: 112.0] Diagnosis: Hyperlipidemia[ICD9: 272.4] Diagnosis: COPD (chronic obstructive pulmonary disease)[ICD9: 496] Diagnosis: Cauda equina syndrome[ICD9: 344.60] Diagnosis: History of prostate cancer[ICD9: V10.46] [facility] CPT-4: 37475 07/04/2014 Plan of Care Planned Activity Notes [...] in the nasal steroid allergy spray. 04/20/2018 Patient Education: Patient Medication Summary Completed 04/20/2018 Appointment: Lab Draw 12/14/2017 Patient Education: Patient Medication Summary Completed 12/14/2017 Appointment: Darleen Aburto WPtel: [address] [place], [place] [id number] (15 min) Moderate 11/28/2017 Visit Plan: Hypertension [...] culture report. 11/14/2017 Appointment: [facility] [phone] [facility] (15 min) Moderate 11/14/2017 Patient [...] this patient. 08/15/2017 Appointment: Mary Alan WPtel: [address] [place], [place] [phone] (30 min) Complex 08/15/2017 Patient Education: Patient Medication Summary Completed 08/15/2017 Appointment: Mary Alan WPtel: [facility] (15 min) Moderate 08/08/2017 Appointment: Mary Alan WPtel: [address] [place], [place] [phone] (15 min) [...] pain symptoms. 06/29/2017 Appointment: Mary Alan WPtel: [address] [place], [place] [phone] (15 min) Moderate 06/29/2017 Patient Education: Patient [...] improve. 03/30/2017 Appointment: [facility] [phone] [phone] (30 min) Complex 03/30/2017 Patient Education: Patient Medication Summary Completed 03/30/2017 Visit Plan: Cough-suspect virus-patient to monitor over the weekend-call Monday if symptoms persist and we will do a chest xray and sputum culture Cdiff-treat with flagyl as directed-call if symptoms do not resolve 10/07/2016 Appointment: Kavya Subramanian WPtel: [phone] [phone] (30 min) Complex 10/07/2016 Patient Education: Patient Medication Summary Completed 10/07/2016 Patient Education: Obesity Completed 10/07/2016 Visit Plan: Cauda equina-chronic back pain-generalized weakness- bilateral shoulder pain/weakness-OA knees-patient to contact juan lorenzo for mobility paperwork-will ask PT to do a mobility exam through [facility]. Patient is non ambulatory due to cauda [...] weakness- right shoulder pain/weakness-patient to contact juan lorenzo for mobility paperwork-will ask PT to do a mobility exam through [facility] Drug induced constipation-rx for movantik. 07/01/2016 Appointment: K[facility]ramanian [facility] [phone] [phone] (30 min) Complex 07/01/2016 Patient Education: [...] surgery. 05/05/2016 Appointment: Mary Alan WPtel: [phone] [facility] 05/05/2016 Patient Education: Patient [...] godoy. 02/23/2016 Appointment: Mary Alan WPtel: [facility] (30 min) Complex 02/23/2016 Patient Education: Patient Medication Summary Completed 02/23/2016 Appointment: Mary Alan WPtel: [phone] (30 min) Complex 02/19/2016 Appointment: Darleen Aburto WPtel: [address] [place], [place] [phone] (15 min) Moderate 10/14/2015 Appointment: Lab Draw [...] having loose bowel movements. Keep appointment with Live Truck Operator Make an appointment with data governance analyst - to follow up on shortness of breath. Weakness - pt is to contact Juan Godoy in [facility] and Call clinic when he is [...] not improved. 07/24/2015 Appointment: Kavya Subramanian WPtel: [address] [place], [place] [phone] (30 min) Complex 07/24/2015 Patient Education: Patient [...] hypertension. 09/15/2014 Appointment: Darleen Aburto WPtel: [facility] (15 min) Moderate 09/15/2014 Patient [...] equina-increased incontinence of bowels-recommend follow up with mechanical service specialist-will discuss repeat MRI with Dr Aburto-keep [...] (start tomorrow) let us know what your data governance analyst says at your appointment chest x-ray if [...] incontinence of bowels- recommend follow up with mechanical service specialist-will discuss repeat MRI with Dr Aburto-keep follow up appointment with Dr Aburto in 10 days Nikolai Montalvo to do PT evaluation for motorized wheelchair through [facility] . Cauda equina-chronic back pain-generalized weakness-bilateral shoulder pain/weakness- OA knees-patient to contact [facility] for mobility paperwork-will ask PT to do a mobility exam through [facility]. Patient is non ambulatory due to cauda [...] assessment details. Drug induced constipation-rx for movantik. Movsarahk Katia to do PT evaluation for motorized wheelchair through [facility] . Cauda equina-chronic back pain-generalized weakness-right shoulder pain/weakness- patient to contact [facility] for mobility paperwork-will ask PT to do a mobility exam through [facility] Drug induced constipation-rx for movantik. . Iron deficiency anemia-check labs-continue oral iron [...] Peng 4. Make an appointment with your data governance analyst - to follow up on shortness of breath. 5. Call us when you here about the mobility paperwork and we will fill out the paperwork. [facility] Mobility in [facility] . Hypertension - The patient has [...] having loose bowel movements. Keep appointment with Live Truck Operator Make an appointment with data governance analyst - to follow up on shortness of breath. Weakness - pt is to contact Juan Godoy in [facility] and Call clinic when he is ready to fill out paperwork. . Thrush/oral pain- swab obtained - Pt [...] - will have pt contact Juan Goldman [facility]. . Pt complains of abdominal pain, states [...] directed-call if symptoms do not resolve . Cauda Equina Syndrome/diarrhea - Pt is [...]
--- OUTSIDE RECORDS SUMMARY | 2018-07-19 09:40 | XMS REPORT | CCD ---
Author Author Kavya Subramanian Organization [facility] Address [address] [place] [address] Phone Care Team Providers Care Consultant Rn Name Role Phone PP Unavailable CCM Unavailable Summary Purpose Interface Exchange Insurance Providers Payer name Policy type / Coverage type Covered constitution party ID Effective Begin Date Effective End Date WPS Medicare Part B Commercial Insurance [id number] Unknown Unknown HEALTHCHOICE Commercial Insurance [id number] Unknown Unknown Family history Father Diagnosis Age At Onset Coronary Artery Disease Unknown Mother Diagnosis Age At Onset Arthritis Unknown Sister Diagnosis Age At Onset Alzheimer's Disease Unknown Social History Social History Element Codes Description Effective Dates Marital status Unknown 07/04/2014 Number of children Unknown 2 07/04/2014 Living arrangements Unknown House 07/04/[address]: 4971210 Quit over 10 years ago 07/04/2014 Alcohol history Unknown occasionally drinks alcohol 07/04/2014 Frequency of drinks SNOMED CT: 473695500 Drinks rarely 07/04/2014 Allergies, Adverse Reactions, Alerts Substance Reaction Codes Entered Date Inactivated Date Status * NO KNOWN FOOD ALLERGIES Unknown 07/04/2014 No Inactive Date Active Iodine rash, pruritis, RxNorm: 5933 03/04/2015 No Inactive Date Active tramadol pruritis RxNorm: 80764 07/04/2014 No Inactive Date Active Past Medical [...] ICD-9: 780.79 ICD-10: R53.81 Active 03/30/2017 Unknown Cough ICD-9: 786.2 ICD-10: R05 Active [...] malaise ICD-9: 780.79 ICD-10: R53.81 03/30/2017 Active Cough ICD-9: 786.2 ICD-10: R05 10/07/2016 [...] Fill Instructions oxycodone 5 mg tablet RxNorm: 0416302 4 Tablet(s) PO daily 04/12/2018 06/25/2018 Active potassium chloride ER 20 mEq tablet,extended release RxNorm: 748507 1 TABLET(S) PO DAILY 03/09/2018 03/03/2019 Active oxycodone 5 mg tablet RxNorm: 3896509 4 Tablet(s) PO daily 01/18/2018 04/02/2018 Inactive Augmentin 500 mg-125 mg tablet RxNorm: 118716 1 Tablet(s) PO TID 12/14/2017 12/23/2017 Inactive take probiotic bid x 10 days pantoprazole 40 mg tablet,delayed release RxNorm: 476927 TAKE 1 TABLET BY MOUTH DAILY 12/11/2017 12/05/2018 Active Augmentin 500 mg-125 mg tablet RxNorm: 233414 1 Tablet(s) PO TID 11/17/2017 11/22/2017 Inactive take probiotic bid x 7 days lisinopril 40 mg tablet RxNorm: 185542 TAKE 1 TABLET BY MOUTH DAILY 11/06/2017 08/02/2018 Active oxycodone 5 mg tablet RxNorm: 1365880 4 Tablet(s) PO daily 10/16/2017 12/29/2017 Inactive Cymbalta 30 mg capsule,delayed release RxNorm: 847035 2 Capsule(s) PO daily 08/17/2017 02/12/2018 Inactive Zoloft 25 mg tablet RxNorm: 316107 1 TABLET(S) PO DAILY X 5 DAYS THEN INCREASE TO 50MG DAILY 08/16/2017 No Stop Date Active Cymbalta 30 mg capsule,delayed release RxNorm: 943938 1 Capsule(s) PO 1 CAPSULE(S) PO DAILY X 1 WEEK, THEN INCREASE TO 2 DAILY 08/15/2017 08/16/2017 Inactive Patient requests 90 days supply diclofenac sodium 75 mg tablet,delayed release RxNorm: 701740 1 TABLET(S) PO BID 08/14/2017 05/10/2018 Active oxycodone 5 mg tablet RxNorm: 3199636 4 Tablet(s) PO daily 08/01/2017 10/14/2017 Inactive valacyclovir 1 gram tablet RxNorm: 320273 1 Tablet(s) PO TID 07/12/2017 07/11/2017 Inactive Zoloft 50 mg tablet RxNorm: 407189 1 Tablet(s) PO daily 07/12/2017 08/01/2017 Inactive valacyclovir 1 gram tablet RxNorm: 167159 1 Tablet(s) PO TID 07/12/2017 07/18/2017 Inactive Zoloft 50 mg tablet RxNorm: 707346 1 Tablet(s) PO daily 07/12/2017 07/11/2017 Inactive Zoloft 25 mg tablet RxNorm: 096729 1 Tablet(s) PO daily x 5 days then increase to 50mg daily 07/11/2017 07/11/2017 Inactive Cymbalta 30 mg capsule,delayed release RxNorm: 223520 1 Capsule(s) PO daily x 1 week, then increase to 2 daily 06/30/2017 06/29/2017 Inactive Cymbalta 30 mg capsule,delayed release RxNorm: 375432 1 CAPSULE(S) PO DAILY X 1 WEEK, THEN INCREASE TO 2 DAILY 06/30/2017 07/04/2017 Inactive Patient requests 90 days supply Augmentin 875 mg-125 mg tablet RxNorm: 698275 1 Tablet(s) PO BID 05/22/2017 05/28/2017 Inactive Probiotic QID while on antibiotics Bactrim DS 800 mg-160 mg tablet RxNorm: 114787 1 Tablet(s) PO BID 05/22/2017 05/21/2017 Inactive Probiotic QID while on antibiotics Bactrim DS 800 mg-160 mg tablet RxNorm: 829641 1 Tablet(s) PO BID 05/22/2017 05/28/2017 Inactive Probiotic QID while on antibiotics Augmentin 875 mg-125 mg tablet RxNorm: 194862 1 Tablet(s) PO BID 05/22/2017 05/21/2017 Inactive Probiotic QID while on antibiotics Cipro 500 mg tablet RxNorm: 828160 1 Tablet(s) PO BID 04/21/2017 04/30/2017 Inactive Take probiotic while on ABT Cipro 500 mg tablet RxNorm: 526198 1 Tablet(s) PO BID 04/21/2017 04/20/2017 Inactive Diflucan 150 mg tablet RxNorm: 881894 1 Tablet(s) PO daily 04/19/2017 11/13/2017 Inactive Diflucan 150 mg tablet RxNorm: 895833 1 Tablet(s) PO daily 04/19/2017 04/18/2017 Inactive oxycodone 5 mg tablet RxNorm: 6366176 4 Tablet(s) PO daily 04/17/2017 06/30/2017 Inactive gabapentin 600 mg tablet RxNorm: 040995 TABLET(S) TAKE 1 TABLET BY MOUTH TWICE DAILY 04/14/2017 04/08/2018 Inactive Rocephin 1 gram solution for injection RxNorm: 351377 1 Inj daily 04/05/2017 04/11/2017 Inactive Rocephin 1 gram solution for injection RxNorm: 928179 1 Inj daily 04/04/2017 04/04/2017 Inactive lidocaine (PF) 10 mg/mL (1 %) injection solution RxNorm: 6550849 1 Milliliter(s) Inj daily 04/04/2017 04/10/2017 Inactive Use to administer rocephin lidocaine (PF) 10 mg/mL (1 %) injection solution RxNorm: 5421044 1 Milliliter(s) Inj daily 04/04/2017 04/03/2017 Inactive Use to administer rocephin Rocephin 1 gram solution for injection RxNorm: 034912 1 Inj daily 04/04/2017 04/03/2017 Inactive Augmentin 500 mg-125 mg tablet RxNorm: 619116 1 Tablet(s) PO TID 03/31/2017 04/03/2017 Inactive Augmentin 500 mg-125 mg tablet RxNorm: 814754 1 Tablet(s) PO TID 03/31/2017 03/30/2017 Inactive Effexor XR 75 mg capsule,extended release RxNorm: 425333 TAKE 3 CAPSULES BY MOUTH EVERY MORNING 03/24/2017 11/13/2017 Inactive potassium chloride ER 20 mEq tablet,extended release RxNorm: 512849 1 TABLET(S) PO DAILY 03/13/2017 03/07/2018 Inactive lisinopril 40 mg tablet RxNorm: 425616 TAKE 1 TABLET BY MOUTH DAILY 02/06/2017 11/02/2017 Inactive pantoprazole 40 mg tablet,delayed release RxNorm: 929157 TAKE 1 TABLET BY MOUTH DAILY 12/19/2016 12/10/2017 Inactive oxycodone 5 mg tablet RxNorm: 8050729 4 Tablet(s) PO daily 12/19/2016 03/03/2017 Inactive diclofenac sodium 75 mg tablet,delayed release RxNorm: 094111 1 TABLET(S) PO BID 11/17/2016 08/13/2017 Inactive gabapentin 600 mg tablet RxNorm: 429073 TABLET(S) TAKE 1 TABLET BY MOUTH TWICE DAILY 10/14/2016 04/11/2017 Inactive Flagyl 500 mg tablet RxNorm: 626362 1 Tablet(s) PO TID 10/07/2016 10/16/2016 Inactive oxycodone 5 mg tablet RxNorm: 5335676 4 Tablet(s) PO daily 10/03/2016 12/16/2016 Inactive Effexor XR 75 mg capsule,extended release RxNorm: 451010 TAKE 3 CAPSULES BY MOUTH EVERY MORNING 09/22/2016 11/20/2016 Inactive Patient requests 90 days supply lisinopril 40 mg tablet RxNorm: 516837 TAKE 1 TABLET BY MOUTH DAILY 08/01/2016 01/27/2017 Inactive Effexor XR 75 mg capsule,extended release RxNorm: 511307 TAKE 3 CAPSULES BY MOUTH EVERY MORNING 07/21/2016 09/21/2016 Inactive oxycodone 5 mg tablet RxNorm: 1850531 4 Tablet(s) PO daily 07/11/2016 09/23/2016 Inactive Movantik 25 mg tablet RxNorm: 9625339 1 Tablet(s) PO daily 07/01/2016 11/13/2017 Inactive potassium chloride ER 20 mEq tablet,extended release RxNorm: 992549 1 TABLET(S) PO DAILY 06/14/2016 03/10/2017 Inactive Flagyl 500 mg tablet RxNorm: 770007 1 Tablet(s) PO TID 06/03/2016 06/12/2016 Inactive Flagyl 500 mg tablet RxNorm: 827579 1 Tablet(s) PO TID 06/03/2016 06/02/2016 Inactive oxycodone 5 mg tablet RxNorm: 6371449 4 Tablet(s) PO daily 04/27/2016 07/10/2016 Inactive Tamiflu 75 mg capsule RxNorm: 449554 1 Capsule(s) PO daily 04/19/2016 04/28/2016 Inactive Tamiflu 75 mg capsule RxNorm: 562781 1 Capsule(s) PO daily 04/19/2016 04/18/2016 Inactive Effexor XR 75 mg capsule,extended release RxNorm: 301882 TAKE 3 CAPSULES BY MOUTH EVERY MORNING 02/18/2016 04/17/2016 Inactive diclofenac sodium 75 mg tablet,delayed release RxNorm: 287362 1 TABLET(S) PO BID 02/18/2016 11/13/2016 Inactive Effexor XR 75 mg capsule,extended release RxNorm: 148868 Capsule(s) TAKE 3 CAPSULES BY MOUTH EVERY MORNING 02/17/2016 08/14/2016 Inactive oxycodone 5 mg tablet RxNorm: 0157168 4 Tablet(s) PO daily 02/04/2016 04/26/2016 Inactive clopidogrel 75 mg tablet RxNorm: 336817 1 TABLET(S) PO QAM 02/01/2016 01/25/2017 Inactive gabapentin 600 mg tablet RxNorm: 366817 Tablet(s) TAKE 1 TABLET BY MOUTH TWICE DAILY 02/01/2016 10/13/2016 Inactive Effexor XR 75 mg capsule,extended release RxNorm: 568521 TAKE 3 CAPSULES BY MOUTH EVERY MORNING 01/11/2016 02/09/2016 Inactive pantoprazole 40 mg tablet,delayed release RxNorm: 215734 TAKE 1 TABLET BY MOUTH DAILY 12/22/2015 12/15/2016 Inactive Effexor XR 75 mg capsule,extended release RxNorm: 484300 TAKE 3 CAPSULES BY MOUTH EVERY MORNING 11/16/2015 01/14/2016 Inactive lisinopril 40 mg tablet RxNorm: 314352 TAKE 1 TABLET BY MOUTH DAILY 11/05/2015 07/31/2016 Inactive Effexor XR 75 mg capsule,extended release RxNorm: 105993 TAKE 3 CAPSULES BY MOUTH EVERY MORNING 09/22/2015 11/20/2015 Inactive Augmentin 500 mg-125 mg tablet RxNorm: 541539 1 Tablet(s) PO TID 09/18/2015 09/24/2015 Inactive Anoro Ellipta 62.5 mcg-25 mcg/actuation powder for inhalation RxNorm: 1832158 1 INH daily 08/20/2015 02/15/2016 Inactive Anoro Ellipta 62.5 mcg-25 mcg/actuation powder for inhalation RxNorm: 2842266 1 INH DAILY 08/20/2015 11/13/2017 Inactive lisinopril 40 mg tablet RxNorm: 760857 TAKE 1 TABLET BY MOUTH DAILY 08/10/2015 11/04/2015 Inactive gabapentin 600 mg tablet RxNorm: 843938 TAKE 1 TABLET BY MOUTH TWICE DAILY 08/10/2015 01/31/2016 Inactive terazosin 2 mg capsule RxNorm: 334400 TAKE ONE CAPSULE BY MOUTH EVERY DAY 07/27/2015 08/29/2016 Inactive hyoscyamine 0.125 mg sublingual tablet RxNorm: 8490002 1 Tablet(s) SL TID as needed 07/24/2015 08/02/2015 Inactive metronidazole 500 mg tablet RxNorm: 881375 1 Tablet(s) PO TID 07/24/2015 07/30/2015 Inactive Effexor XR 75 mg capsule,extended release RxNorm: 211710 TAKE 3 CAPSULES BY MOUTH EVERY MORNING 07/23/2015 09/20/2015 Inactive oxycodone 5 mg tablet RxNorm: 4936886 4 Tablet(s) PO daily 06/26/2015 02/03/2016 Inactive potassium chloride ER 20 mEq tablet,extended release RxNorm: 688343 1 Tablet(s) PO daily 06/25/2015 06/13/2016 Inactive oxycodone 5 mg tablet RxNorm: 9972962 4 Tablet(s) PO daily 04/17/2015 06/25/2015 Inactive rx written Anoro Ellipta 62.5 mcg-25 mcg/actuation powder for inhalation RxNorm: 3831361 1 INH daily 04/17/2015 08/19/2015 Inactive potassium chloride ER 20 mEq tablet,extended release RxNorm: 660995 1 Tablet(s) PO daily 03/23/2015 06/24/2015 Inactive triamcinolone acetonide 0.1 % topical cream RxNorm: 5738932 1 Application TOP BID 03/20/2015 No Stop Date Active carvedilol 12.5 mg tablet RxNorm: 953907 1 TABLET(S) PO BID 02/23/2015 08/21/2015 Inactive diclofenac sodium 75 mg tablet,delayed release RxNorm: 874429 1 Tablet(s) PO BID 02/18/2015 02/12/2016 Inactive carvedilol 12.5 mg tablet RxNorm: 153158 1 Tablet(s) PO BID 02/17/2015 02/11/2016 Inactive furosemide 40 mg tablet RxNorm: 612042 1 Tablet(s) PO daily 02/17/2015 02/11/2016 Inactive lisinopril 40 mg tablet RxNorm: 249458 TAKE 1 TABLET BY MOUTH DAILY 02/16/2015 08/09/2015 Inactive ceftriaxone 1 gram solution for injection RxNorm: 0097327 1 Gram(s) Inj daily mix with lidocaine 01/14/2015 01/17/2015 Inactive please supply 4 bottles of 1gram rocephin IM with 1 bottle of lidocaine 1% for home health to administer to pt starting 01/15 ceftriaxone 1 gram solution for injection RxNorm: 1152811 1 Gram(s) Inj daily 01/14/2015 01/13/2015 Inactive please supply 4 bottles of 1gram rocephin IM with 1 bottle of lidocaine 1% for home health to administer to pt starting 01/15 Augmentin 500 mg-125 mg tablet RxNorm: 734907 1 Tablet(s) PO BID 01/13/2015 01/22/2015 Inactive Keflex 500 mg capsule RxNorm: 355214 1 Capsule(s) PO TID 12/12/2014 12/11/2014 Inactive Keflex 500 mg capsule RxNorm: 680060 1 Capsule(s) PO TID 12/12/2014 12/17/2014 Inactive Augmentin 500 mg-125 mg tablet RxNorm: 230360 1 Tablet(s) PO BID 11/28/2014 12/02/2014 Inactive Augmentin 500 mg-125 mg tablet RxNorm: 056057 1 Tablet(s) PO BID 11/28/2014 11/27/2014 Inactive Cipro 500 mg tablet RxNorm: 848925 1 Tablet(s) PO BID 11/24/2014 11/27/2014 Inactive gabapentin 600 mg tablet RxNorm: 951230 1 Tablet(s) PO BID 11/17/2014 08/13/2015 Inactive gabapentin 600 mg tablet RxNorm: 243040 1 Tablet(s) PO BID 11/17/2014 11/16/2014 Inactive oxycodone 5 mg tablet RxNorm: 1406999 4 Tablet(s) PO daily 11/07/2014 02/04/2015 Inactive rx written Effexor XR 75 mg capsule,extended release RxNorm: 877672 3 Capsule(s) 225 PO QAM 11/05/2014 03/04/2015 Inactive clopidogrel 75 mg tablet RxNorm: 808120 1 Tablet(s) PO QAM 11/05/2014 01/28/2016 Inactive Effexor XR 75 mg capsule,extended release RxNorm: 002337 3 Capsule(s) 225 PO QAM 11/03/2014 11/04/2014 Inactive carvedilol 12.5 mg tablet RxNorm: 080048 1 Tablet(s) PO BID 10/28/2014 02/16/2015 Inactive Effexor XR 75 mg capsule,extended release RxNorm: 747511 3 Capsule(s) 225 PO QAM 10/28/2014 11/02/2014 Inactive Effexor XR 75 mg capsule,extended release RxNorm: 053459 3 Capsule(s) 225 PO QAM 10/28/2014 10/27/2014 Inactive carvedilol 12.5 mg tablet RxNorm: 881336 1 Tablet(s) PO BID 10/28/2014 10/27/2014 Inactive ceftriaxone 1 gram solution for injection RxNorm: 4681529 Inj 09/05/2014 09/05/2014 Inactive Cipro 500 mg tablet RxNorm: 824697 1 Tablet(s) PO BID 09/04/2014 09/03/2014 Inactive Cipro 500 mg tablet RxNorm: 281880 1 Tablet(s) PO BID 09/04/2014 09/10/2014 Inactive oxycodone 5 mg tablet RxNorm: 9751304 4 Tablet(s) PO daily 08/20/2014 11/06/2014 Inactive rx written lisinopril 40 mg tablet RxNorm: 268309 TAKE 1 TABLET BY MOUTH DAILY 08/18/2014 02/13/2015 Inactive nystatin 100,000 unit/mL oral suspension RxNorm: 979394 5 Milliliter(s) PO QID 07/04/2014 07/13/2014 Inactive [SAVINGS FOR NON-COVERED DRUGS -- BIN:[id number], PCN: [id number], Group: XXXXX, ID# [id number], Questions: . THIS IS NOT INSURANCE.] WelChol 3.75 gram oral powder packet RxNorm: 110269 1 PO BID No Start Date Active amlodipine 10 mg tablet RxNorm: 987842 1 Tablet(s) PO QAM No Start Date Active One A Day oral RxNorm: 02447 oral No Start Date Active Vitamin D2 400 unit capsule RxNorm: 612477 1 Capsule(s) PO daily No Start Date Active aspirin 81 mg tablet,delayed release RxNorm: 595103 1 Tablet(s) PO daily No Start Date Active melatonin 5 mg disintegrating tablet RxNorm: 0810664 1 Tablet(s) PO QHS No Start Date Active Miralax 17 gram/dose oral powder RxNorm: 042920 17 Gram(s) PO daily in prune juice No Start Date Active clonidine HCl 0.1 mg tablet RxNorm: 496365 1 Tablet(s) PO QHS No Start Date Active hydrochlorothiazide oral RxNorm: 5487 oral No Start Date Active Lasix oral RxNorm: 377899 oral No Start Date 02/17/2015 Inactive potassium chloride 20 meq RxNorm: 659858 PO daily No Start Date 03/22/2015 Inactive Zoloft 25 mg tablet RxNorm: 175794 1 Tablet(s) PO daily x 5 days then increase to 50mg daily No Start Date 07/10/2017 Inactive oxycodone 5 mg tablet RxNorm: 9191401 3-4 Tablet(s) PO QHS No Start Date 08/19/2014 Inactive terazosin 2 mg capsule RxNorm: 156571 1 Capsule(s) PO daily No Start Date 07/26/2015 Inactive Effexor XR 75 mg capsule,extended release RxNorm: 921050 3 Capsule(s) 225 PO QAM No Start Date 10/27/2014 Inactive gabapentin 600 mg tablet RxNorm: 007872 1 Tablet(s) PO BID No Start Date 11/16/2014 Inactive pantoprazole 40 mg tablet,delayed release RxNorm: 624210 oral No Start Date 12/21/2015 Inactive Anoro Ellipta 62.5 mcg-25 mcg/actuation powder for inhalation RxNorm: 9266171 1 INH daily No Start Date 04/16/2015 Inactive diclofenac sodium 75 mg tablet,delayed release RxNorm: 065023 1 Tablet(s) PO BID No Start Date 02/17/2015 Inactive clopidogrel 75 mg tablet RxNorm: 047705 1 Tablet(s) PO QAM No Start Date 11/04/2014 Inactive lisinopril 40 mg tablet RxNorm: 001492 1 Tablet(s) PO daily No Start Date 08/17/2014 Inactive carvedilol 12.5 mg tablet RxNorm: 103797 1 Tablet(s) PO BID No Start Date 10/27/2014 Inactive Medication Administered Medication Codes Instructions Start Date Status ceftriaxone 1 gram solution for injection RxNorm: 6149848 09/05/2014 No longer Active Immunizations Vaccine Codes Date Status Influenza CVX: 141 12/31/2014 completed Assessments Condition Codes Effective Dates Dysuria ICD-10: R30.0 ICD-9: 788.1 12/14/2017 Other [...] Visit Reason For Visit Effective Dates Notes fatigue 11/14/2017 oral pain 08/15/2017 depression 06/29/2017 [...] (3rd IS) 3.24 uIU/mL 11/14/2017 Comp Metabolic Ogo712 NA 137 mEq/L 11/14/2017 Comp Metabolic His505 K 4.0 mEq/L 11/14/2017 Comp Metabolic Yoj484 CL 104 mEq/L 11/14/2017 Comp Metabolic Wtl650 CO2 23.0 mEq/L 11/14/2017 Comp Metabolic Bfl675 ANION GAP 14 11/14/2017 Comp Metabolic Qyr758 GLUCOSE 101 mg/dL 11/14/2017 Comp Metabolic Kgh426 Creat 1.1 mg/dL 11/14/2017 Comp Metabolic Usz128 eGFR 67 ml/min/1.73m2 11/14/2017 Comp Metabolic Ejx126 BUN 18 mg/dL 11/14/2017 Comp Metabolic Aas527 B/C Ratio 15.9 Ratio 11/14/2017 Comp Metabolic Frg612 CALCIUM 9.0 mg/dL 11/14/2017 Comp Metabolic Ymw509 ALK PHOS 81 U/L 11/14/2017 Comp Metabolic Jdd697 AST(SGOT) 19 U/L 11/14/2017 Comp Metabolic Dow185 ALT(SGPT) 18 U/L 11/14/2017 Comp Metabolic Tip626 BILI T 0.3 mg/dL 11/14/2017 Comp Metabolic Zhb071 ALBUMIN 3.8 g/dL 11/14/2017 Comp Metabolic Zwi494 TPRO 7.3 g/dL 11/14/2017 Comp Metabolic Omc553 GLOB 3.5 g/dL 11/14/2017 Comp Metabolic Mtf592 A/G Ratio 1.1 Ratio 11/14/2017 Comp Metabolic Uel963 Osmo 276 mOsmo 11/14/2017 Cbc With Differential Ord2 WBC 8.56 K/ul 11/14/2017 Cbc With Differential Ord2 RBC 3.45 M/ul 11/14/2017 Cbc With Differential Ord2 HGB 10.3 g/dl 11/14/2017 Cbc With Differential Ord2 Neut% 60.3 % 11/14/2017 Cbc With Differential Ord2 HCT 32.4 % 11/14/2017 Cbc With Differential Ord2 Lymph% 21.6 % 11/14/2017 Cbc With Differential Ord2 MCV 93.9 fl 11/14/2017 Cbc With Differential Ord2 MCH 29.9 pg 11/14/2017 Cbc With Differential Ord2 [place]% 11.2 % 11/14/2017 Cbc With Differential Ord2 Eos% 6.7 % 11/14/2017 Cbc With Differential Ord2 MCHC 31.8 pg 11/14/2017 Cbc With Differential Ord2 Baso% 0.2 % 11/14/2017 Cbc With Differential Ord2 PLT 376 K/ul 11/14/2017 Cbc With Differential Ord2 Neut ABS# 5.16 K/ul 11/14/2017 Cbc With Differential Ord2 RDW 16.0 % 11/14/2017 Cbc With Differential Ord2 Lymph ABS# 1.85 K/ul 11/14/2017 Cbc With Differential Ord2 [place] ABS# 1.0 K/ul 11/14/2017 Cbc With Differential Ord2 Eos ABS# 0.6 K/ul 11/14/2017 Cbc With Differential Ord2 Baso ABS# 0.0 K/ul 11/14/2017 Culture Urine [id number] URINE CULTURE SEE NOTES 05/22/2017 Culture Urine [id number] Continued Results 05/22/2017 Urine Culture Ucult Complete >100,000 col/ml aerobic growth sent to ref lab 05/16/2017 Culture Urine [id number] URINE CULTURE SEE NOTES 04/21/2017 Urine Culture [...] 11.4 g/dl 03/30/2017 Cbc With Differential Ord2 Neut% 55.2 % 03/30/2017 Cbc With Differential Ord2 HCT 35.4 % 03/30/2017 Cbc With Differential Ord2 Lymph% 24.1 % 03/30/2017 Cbc With Differential Ord2 MCV 95.9 fl 03/30/2017 Cbc With Differential Ord2 [place]% 13.0 % 03/30/2017 Cbc With Differential Ord2 MCH 30.9 pg 03/30/2017 Cbc With Differential Ord2 MCHC 32.2 pg 03/30/2017 Cbc With Differential Ord2 Eos% 7.4 % 03/30/2017 Cbc With Differential Ord2 PLT 370 K/ul 03/30/2017 Cbc With Differential Ord2 Baso% 0.3 % 03/30/2017 Cbc With Differential Ord2 Neut ABS# 3.86 K/ul 03/30/2017 Cbc With Differential Ord2 RDW 15.9 % 03/30/2017 Cbc With Differential Ord2 Lymph ABS# 1.69 K/ul 03/30/2017 Cbc With Differential Ord2 [place] ABS# 0.9 K/ul 03/30/2017 Cbc With Differential Ord2 Eos ABS# 0.5 K/ul 03/30/2017 Cbc With Differential Ord2 Baso ABS# 0.0 K/ul 03/30/2017 %Hba1C Lrc795 % HbA1c 55258- 6 5.8 % 03/30/2017 %Hba1C Gnz262 Gluc Ave 120 mg/dL 03/30/2017 Comp Metabolic Sow577 NA 140 mEq/L 03/30/2017 Comp Metabolic Sbt115 K 4.0 mEq/L 03/30/2017 Comp Metabolic Cjv628 CL 105 mEq/L 03/30/2017 Comp Metabolic Xhc574 CO2 25.0 mEq/L 03/30/2017 Comp Metabolic Ekc149 ANION GAP 14 03/30/2017 Comp Metabolic Gxs879 GLUCOSE 108 mg/dL 03/30/2017 Comp Metabolic Ett603 Creat 1.2 mg/dL 03/30/2017 Comp Metabolic Zpd661 eGFR 63 ml/min/1.73m2 03/30/2017 Comp Metabolic Mjl016 BUN 20 mg/dL 03/30/2017 Comp Metabolic Dcx748 B/C Ratio 16.9 Ratio 03/30/2017 Comp Metabolic Bhy781 CALCIUM 9.2 mg/dL 03/30/2017 Comp Metabolic Gcp262 ALK PHOS 83 U/L 03/30/2017 Comp Metabolic Iin921 AST(SGOT) 17 U/L 03/30/2017 Comp Metabolic Znx786 ALT(SGPT) 19 U/L 03/30/2017 Comp Metabolic Rgp956 BILI T 0.3 mg/dL 03/30/2017 Comp Metabolic Len186 ALBUMIN 3.9 g/dL 03/30/2017 Comp Metabolic Zlv851 TPRO 7.2 g/dL 03/30/2017 Comp Metabolic Hak529 GLOB 3.3 g/dL 03/30/2017 Comp Metabolic Qsi440 A/G Ratio 1.2 Ratio 03/30/2017 Comp Metabolic Rle776 Osmo 283 mOsmo 03/30/2017 Tsh Ord6 TSH (3rd IS) 1.40 uIU/mL 03/30/2017 Clostridium Diff Tox A/B Qhe936 Cdiff Positive 06/03/2016 Total Psa PSA 1.53 [...] 99.1 fl 03/20/2015 Cbc With Differential Ord2 MCH 31.2 pg 03/20/2015 Cbc With Differential Ord2 [place]% 12.8 % 03/20/2015 Cbc With Differential Ord2 [...] 1.69 K/ul 03/20/2015 Cbc With Differential Ord2 [place] ABS# 0.8 K/ul 03/20/2015 Cbc With Differential Ord2 Eos ABS# 0.6 K/ul 03/20/2015 Cbc With Differential Ord2 Baso ABS# 0.0 K/ul 03/20/2015 Cbc With Differential Ord2 New Analyzer Notice Please note new ref ranges starting 03-04-2015 due to implemntation of new five part differential hematolgy analyzer. 03/20/2015 Total Psa Ord10 PSA 2.25 ng/mL 02/26/2015 Comp Metabolic Sqq191 NA 138 mEq/L 02/26/2015 Comp Metabolic Gff083 K 4.0 mEq/L 02/26/2015 Comp Metabolic Zox833 CL 103 mEq/L 02/26/2015 Comp Metabolic Yzv072 CO2 28.0 mEq/L 02/26/2015 Comp Metabolic Fbn371 ANION GAP 11 02/26/2015 Comp Metabolic Yrv583 GLUCOSE 95 mg/dL 02/26/2015 Comp Metabolic Dwg257 Creat 1.0 mg/dL 02/26/2015 Comp Metabolic Kbc665 eGFR 74 ml/min/1.73m2 02/26/2015 Comp Metabolic Pvj011 BUN 19 mg/dL 02/26/2015 Comp Metabolic Wbu757 B/C Ratio 18.3 Ratio 02/26/2015 Comp Metabolic Stj197 CALCIUM 9.1 mg/dL 02/26/2015 Comp Metabolic Dmx286 ALK PHOS 87 U/L 02/26/2015 Comp Metabolic Wtm787 AST(SGOT) 22 U/L 02/26/2015 Comp Metabolic Roo622 ALT(SGPT) 24 U/L 02/26/2015 Comp Metabolic Biz972 BILI T 0.4 mg/dL 02/26/2015 Comp Metabolic Lxr937 ALBUMIN 4.0 g/dL 02/26/2015 Comp Metabolic Suu736 TPRO 7.4 g/dL 02/26/2015 Comp Metabolic Bve146 GLOB 3.4 g/dL 02/26/2015 Comp Metabolic Ywn309 A/G Ratio 1.2 Ratio 02/26/2015 Comp Metabolic Xjt390 Osmo 278 mOsmo 02/26/2015 Culture Urine [id number] URINE CULTURE SEE NOTES 12/15/2014 Culture Urine [id number] Continued Results 12/15/2014 Urine Culture Ucult Complete >100,000 col/ml aerobic growth sent to ref lab 12/12/2014 Comp Metabolic Bjn765 NA 136 mEq/L 12/05/2014 Comp Metabolic Igb728 K 4.3 mEq/L 12/05/2014 Comp Metabolic Ips942 CL 104 mEq/L 12/05/2014 Comp Metabolic Pbv693 CO2 29.0 mEq/L 12/05/2014 Comp Metabolic Rug781 ANION GAP 7 12/05/2014 Comp Metabolic Swj351 GLUCOSE 80 mg/dL 12/05/2014 Comp Metabolic Oae291 Creat 1.1 mg/dL 12/05/2014 Comp Metabolic Jdp103 eGFR 68 ml/min/1.73m2 12/05/2014 Comp Metabolic Nfd735 BUN 21 mg/dL 12/05/2014 Comp Metabolic Olu538 B/C Ratio 18.8 Ratio 12/05/2014 Comp Metabolic Etj702 CALCIUM 9.3 mg/dL 12/05/2014 Comp Metabolic Eue055 ALK PHOS 81 U/L 12/05/2014 Comp Metabolic Nck846 AST(SGOT) 17 U/L 12/05/2014 Comp Metabolic Ikk482 ALT(SGPT) 16 U/L 12/05/2014 Comp Metabolic Nfa976 BILI T 0.3 mg/dL 12/05/2014 Comp Metabolic Pdx992 ALBUMIN 4.0 g/dL 12/05/2014 Comp Metabolic Hry514 TPRO 6.9 g/dL 12/05/2014 Comp Metabolic Gah129 GLOB 2.9 g/dL 12/05/2014 Comp Metabolic Pzd604 A/G Ratio 1.4 Ratio 12/05/2014 Comp Metabolic Bsl412 Osmo 274 mOsmo 12/05/2014 Cbc With Differential [...] Ord2 RDW 15.0 % 12/05/2014 Culture Urine [id number] URINE CULTURE SEE NOTES 11/27/2014 Culture Urine [id number] Continued Results 11/27/2014 Urine Culture Ucult Complete Growth of aerobe sent to ref lab 11/25/2014 B Type Natriuretic Peptide [id number] [employer] 121.00 pg/ml 10/08/2014 Cbc With [...] Folate Ord36 Folate 22.12 ng/mL 10/08/2014 B12 Hnf656 B12 >1500.00 pg/ml 10/08/2014 Comp Metabolic Apq338 NA 135 mEq/L 10/08/2014 Comp Metabolic Rwx088 K 4.5 mEq/L 10/08/2014 Comp Metabolic Bhi099 CL 104 mEq/L 10/08/2014 Comp Metabolic Owu631 CO2 25.0 mEq/L 10/08/2014 Comp Metabolic Jnj482 ANION GAP 11 10/08/2014 Comp Metabolic Yuz404 GLUCOSE 73 mg/dL 10/08/2014 Comp Metabolic Jix274 Creat 1.1 mg/dL 10/08/2014 Comp Metabolic Zjm037 eGFR 71 ml/min/1.73m2 10/08/2014 Comp Metabolic Meu376 BUN 21 mg/dL 10/08/2014 Comp Metabolic Pfo810 B/C Ratio 19.4 Ratio 10/08/2014 Comp Metabolic Ysm872 CALCIUM 9.0 mg/dL 10/08/2014 Comp Metabolic Dfy061 ALK PHOS 73 U/L 10/08/2014 Comp Metabolic Iod282 AST(SGOT) 15 U/L 10/08/2014 Comp Metabolic Wtk472 ALT(SGPT) 14 U/L 10/08/2014 Comp Metabolic Frm239 BILI T 0.4 mg/dL 10/08/2014 Comp Metabolic Yjb309 ALBUMIN 4.2 g/dL 10/08/2014 Comp Metabolic Lcz271 TPRO 7.1 g/dL 10/08/2014 Comp Metabolic Imw756 GLOB 2.9 g/dL 10/08/2014 Comp Metabolic Lnm032 A/G Ratio 1.4 Ratio 10/08/2014 Comp Metabolic Kyn835 Osmo 272 mOsmo 10/08/2014 B12 Yzr815 B12 554.00 pg/ml 09/16/2014 Tibc Ord40 Iron 108 ug/dl 09/16/2014 Tibc Ord40 UIBC 281 ug/dL 09/16/2014 Tibc Ord40 TIBC 389 ug/dL 09/16/2014 Tibc Ord40 Fe-%Sat 27.8 % 09/16/2014 Folate Ord36 Folate >23.20 ng/mL 09/16/2014 Comp Metabolic Qbh317 NA 134 mEq/L 09/16/2014 Comp Metabolic Jvr423 K 4.6 mEq/L 09/16/2014 Comp Metabolic Buy747 CL 103 mEq/L 09/16/2014 Comp Metabolic Yvi682 CO2 25.0 mEq/L 09/16/2014 Comp Metabolic Pje072 ANION GAP 11 09/16/2014 Comp Metabolic Dfk450 GLUCOSE 93 mg/dL 09/16/2014 Comp Metabolic Nry901 Creat 1.2 mg/dL 09/16/2014 Comp Metabolic Mgl405 eGFR 65 ml/min/1.73m2 09/16/2014 Comp Metabolic Dpc739 BUN 23 mg/dL 09/16/2014 Comp Metabolic Bin564 B/C Ratio 19.8 Ratio 09/16/2014 Comp Metabolic Hhn558 CALCIUM 9.1 mg/dL 09/16/2014 Comp Metabolic Foi063 ALK PHOS 73 U/L 09/16/2014 Comp Metabolic Rjo100 AST(SGOT) 18 U/L 09/16/2014 Comp Metabolic Jxr720 ALT(SGPT) 16 U/L 09/16/2014 Comp Metabolic Vmr960 BILI T 0.4 mg/dL 09/16/2014 Comp Metabolic Tmh879 ALBUMIN 4.0 g/dL 09/16/2014 Comp Metabolic Tkv831 TPRO 7.1 g/dL 09/16/2014 Comp Metabolic Yzl637 GLOB 3.1 g/dL 09/16/2014 Comp Metabolic Zqk009 A/G Ratio 1.3 Ratio 09/16/2014 Comp Metabolic Fjv798 Osmo 272 mOsmo 09/16/2014 Cbc With Differential [...] Ord22 FERRITIN 36.2 ng/mL 09/16/2014 Culture Urine [id number] URINE CULTURE SEE NOTES 09/08/2014 Urine Culture [...] Ord2 RDW 17.8 % 09/05/2014 Comp Metabolic Zzo237 NA 133 mEq/L 09/05/2014 Comp Metabolic Ndw795 K 4.9 mEq/L 09/05/2014 Comp Metabolic Iuf453 CL 99 mEq/L 09/05/2014 Comp Metabolic Wsi001 CO2 26.0 mEq/L 09/05/2014 Comp Metabolic Ame971 ANION GAP 13 09/05/2014 Comp Metabolic Uix314 GLUCOSE 83 mg/dL 09/05/2014 Comp Metabolic Znn886 Creat 1.5 mg/dL 09/05/2014 Comp Metabolic Ctd301 eGFR 47 ml/min/1.73m2 09/05/2014 Comp Metabolic Bga876 BUN 28 mg/dL 09/05/2014 Comp Metabolic Hkh761 B/C Ratio 18.3 Ratio 09/05/2014 Comp Metabolic Lir951 CALCIUM 8.9 mg/dL 09/05/2014 Comp Metabolic Lcn446 ALK PHOS 71 U/L 09/05/2014 Comp Metabolic Dzb374 AST(SGOT) 18 U/L 09/05/2014 Comp Metabolic Oym781 ALT(SGPT) 29 U/L 09/05/2014 Comp Metabolic Pvm934 BILI T 0.6 mg/dL 09/05/2014 Comp Metabolic Puw303 ALBUMIN 3.8 g/dL 09/05/2014 Comp Metabolic Wpa712 TPRO 6.7 g/dL 09/05/2014 Comp Metabolic Gko676 GLOB 2.9 g/dL 09/05/2014 Comp Metabolic Whm347 A/G Ratio 1.3 Ratio 09/05/2014 Comp Metabolic Brg621 Osmo 271 mOsmo 09/05/2014 Total Psa Ord10 PSA 2.11 ng/mL 08/26/2014 Review of Systems System Result Effective Dates Constitutional No recent illness 11/14/2017 Constitutional No [...] Codes Date URINALYSIS NONAUTO W/O SCOPE CPT-4: 04278 12/14/2017 URINALYSIS NONAUTO W/O SCOPE CPT-4: 73828 05/15/2017 URINALYSIS NONAUTO W/O SCOPE CPT-4: 05116 09/18/2015 ADMIN INFLUENZA VIRUS VAC CPT-4: G0008 12/31/2014 FLU VACC PRSV FREE INC ANTIG Formatting Model/CDA Sections, Assigned to/[employer] CPT-4: [id number] 12/31/2014 URINALYSIS NONAUTO W/O SCOPE CPT-4: 41987 12/10/2014 URINALYSIS NONAUTO W/O SCOPE CPT-4: 52323 11/24/2014 ROCEPHIN, PER 250 MG CPT- 4: J0696 09/05/2014 THER/PROPH/DIAG INJ SC/IM CPT-4: 70941 09/05/2014 URINALYSIS NONAUTO W/O SCOPE CPT-4: 04641 09/04/2014 Vital Signs Date Vital 11/14/2017 Blood Pressure 1: 128/62 Code: 8480-6 [...] 1: 138/60 Code: 8480-6 BMI: 37.2 Code: 98145-5 Heart Rate 1: 79 bpm Height: 5'9" SpO2: 91% Weight: 252 lbs 07/01/2016 Blood Pressure 1: 138/68 Code: 8480-6 BMI: 37.2 Code: 11299-1 Heart Rate 1: 69 bpm Height: 5'9" SpO2: 93% Weight: 252 lbs 05/05/2016 Blood Pressure 1: 136/78 Code: 8480-6 BMI: 39.3 Code: 45398-9 Heart Rate 1: 72 bpm Height: 5'9" SpO2: 97% Weight: 266 lbs 02/23/2016 Blood Pressure 1: 145/70 Code: 8480-6 BMI: 37.5 Code: 85944-4 Heart Rate 1: 80 bpm Height: 5'9" Weight: 254 lbs 09/16/2015 Blood Pressure 1: 140/62 Code: 8480-6 Heart Rate 1: 77 bpm Height: 5'9" SpO2: 93% Weight: 07/24/2015 Blood Pressure 1: 152/68 Code: 8480-6 BMI: 37.7 Code: 74159-4 Heart Rate 1: 73 bpm Height: 5'9" SpO2: 97% Weight: 255 lbs 03/20/2015 Blood Pressure 1: 146/74 Code: 8480-6 BMI: 38.1 Code: 97360-2 Heart Rate 1: 63 bpm Height: 5'9" Weight: 258 lbs 01/13/2015 Blood Pressure 1: 120/58 Code: 8480-6 Heart Rate 1: 52 bpm Height: 5'9" SpO2: 97% Temperature: 37.1 (C) / 98.7 (F) Weight: 12/05/2014 Blood Pressure 1: 134/54 Code: 8480-6 BMI: 36.3 Code: 39340-4 Heart Rate 1: 76 bpm Height: 5'9" SpO2: 93% Weight: 246 lbs 10/03/2014 Blood Pressure 1: 132/60 Code: 8480-6 Heart Rate 1: 76 bpm Height: SpO2: 95% Weight: 254 lbs 09/15/2014 Blood Pressure 1: 120/68 Code: 8480-6 BMI: 37.5 Code: 59077-0 Heart Rate 1: 76 bpm Height: 5'9" SpO2: 93% Weight: 254 lbs 09/05/2014 Blood Pressure 1: 110/50 Code: 8480-6 BMI: 37.4 Code: 63056-6 Heart Rate 1: 79 bpm Height: 5'9" SpO2: 96% Temperature: 36.3 (C) / 97.4 (F) Weight: 253 lbs 07/04/2014 Blood Pressure 1: 138/72 Code: 8480-6 BMI: 37.1 Code: 29226-9 Heart Rate 1: 72 bpm Height: 5'9" SpO2: 93% Weight: 251 lbs Functional Status No Functional Status data History of Present Illness Symptom Name Status Result Effective Date Notes fatigue Onset and Resolution sudden in onset [...] discomfort 12/05/2014 occasional ache in chest- seeing ethanol operations manager in [place]- doing heart cath in [...] discomfort 10/03/2014 occasional ache in chest- seeing ethanol operations manager in - doing heart cath in October [...] data Encounters Encounter Performer Location Codes Date ([id number]) 32809 EST. PATIENT, LEVEL IV Diagnosis: Essential (primary) hypertension[ICD10: I10] Diagnosis: Other iron deficiency anemias[ICD10: D50.8] Diagnosis: Weakness[ICD10: R53.1] Darleen Aburto MD, [facility] CPT-4: 77302 11/14/2017 60051 EST. PATIENT, LEVEL IV Diagnosis: Other lesions of oral mucosa[ICD10: K13.79] Diagnosis: Candidal stomatitis[ICD10: B37.0] Diagnosis: Generalized anxiety disorder[ICD10: F41.1] Diagnosis: Major depressive disorder, single episode, moderate[ICD10: F32.1] Mary Aburto MD, [facility] CPT-4: 51967 08/15/2017 30226 EST. PATIENT, LEVEL III Diagnosis: Generalized anxiety disorder[ICD10: F41.1] Diagnosis: Cauda equina syndrome[ICD10: G83.4] Diagnosis: Major depressive disorder, single episode, moderate[ICD10: F32.1] Mary Aburto MD, [facility] CPT-4: 37471 06/29/2017 68130 EST. PATIENT, LEVEL IV Diagnosis: Dysuria[ICD10: R30.0] Diagnosis: Other malaise[ICD10: R53.81] Diagnosis: Cauda equina syndrome[ICD10: G83.4] Diagnosis: Weakness[ICD10: R53.1] Mary Aburto MD, [facility] CPT-4: 08485 03/30/2017 ([id number]) 27281 EST. PATIENT, LEVEL III Diagnosis: Cough[ICD10: R05] Diagnosis: Enterocolitis due to Clostridium difficile[ICD10: A04.7] Kavya Aburto MD, [facility] CPT-4: 59859 10/07/2016 ([id number]) 39933 EST. 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 PATIENT, LEVEL III Diagnosis: Cauda equina syndrome[ICD10: G83.4] Diagnosis: Irritable bowel syndrome with diarrhea[ICD10: K58.0] Mary Aburto MD, [facility] CPT-4: 51637 05/05/2016 04381 EST. PATIENT, LEVEL III Diagnosis: Pain in right shoulder[ICD10: M25.511] Diagnosis: Weakness[ICD10: R53.1] Diagnosis: Shortness of breath[ICD10: R06.02] Mary Aburto MD, [facility] CPT-4: 61182 02/23/2016 52157 EST. PATIENT, LEVEL III Diagnosis: Essential (primary) hypertension[ICD10: I10] Diagnosis: Other insomnia[ICD10: G47.09] Diagnosis: Irritable bowel syndrome with diarrhea[ICD10: K58.0] Diagnosis: Shortness of breath[ICD10: R06.02] Diagnosis: Weakness[ICD10: R53.1] Mary Aburto MD, [facility] CPT-4: 03797 09/16/2015 35405 EST. PATIENT, LEVEL III Diagnosis: Diarrhea, unspecified[ICD10: R19.7] Diagnosis: Nausea[ICD10: R11.0] Mary Aburto MD, [facility] CPT-4: 22109 07/24/2015 58604 EST. PATIENT, LEVEL IV Diagnosis: Other iron deficiency anemias[ICD10: D50.8] Diagnosis: Rash and other nonspecific skin eruption[ICD10: R21] Diagnosis: Cauda equina syndrome[ICD10: G83.4] Diagnosis: Essential (primary) hypertension[ICD10: I10] Diagnosis: Other pruritus[ICD10: L29.8] Diagnosis: Shortness of breath[ICD10: R06.02] Mary Aburto MD, [facility] CPT-4: 93299 03/20/2015 09240 EST. PATIENT, LEVEL IV Diagnosis: Urinary tract infection, site not specified[ICD10: N39.0] Diagnosis: Umbilical hernia without obstruction or gangrene[ICD10: K42.9] Diagnosis: Cauda equina syndrome[ICD10: G83.4] Mary Aburto MD, [facility] CPT- 4: 40783 01/13/2015 ([id number]) 59692 EST. PATIENT, LEVEL IV Diagnosis: Iron deficiency anemia, unspecified[ICD10: D50.9] Diagnosis: Essential (primary) hypertension[ICD10: I10] Diagnosis: Hematuria, unspecified[ICD10: R31.9] Kavya Aburto MD, [facility] CPT-4: 41263 12/05/2014 ([id number]) 65514 EST. PATIENT, LEVEL IV Diagnosis: ESSENTIAL HYPERTENSION[ICD9: 401.9] Diagnosis: COPD (chronic obstructive pulmonary disease)[ICD9: 496] Diagnosis: ANEMIA[ICD9: 285.9] Diagnosis: SHORTNESS OF BREATH[ICD9: 786.05] Kavya Aburto MD, [facility] CPT- 4: 08050 10/03/2014 ([id number]) 36236 EST. PATIENT, LEVEL IV Diagnosis: ESSENTIAL HYPERTENSION[ICD9: 401.9] Diagnosis: ANEMIA[ICD9: 285.9] Diagnosis: MALAISE AND FATIGUE[ICD9: 780.79] Darleen Aburto MD, [facility] CPT- 4: 57151 09/15/2014 ([id number]) 70830 EST. PATIENT, LEVEL III Diagnosis: UTI[ICD9: 599.0] Diagnosis: Chronic back pain[ICD9: 724.5] Kavya Aburto MD, [facility] CPT-4: 80794 09/05/2014 ([id number]) OFFICE VISIT, NEW - LEVEL 4 Diagnosis: ESSENTIAL HYPERTENSION[ICD9: 401.9] Diagnosis: THRUSH[ICD9: 112.0] Diagnosis: Hyperlipidemia[ICD9: 272.4] Diagnosis: COPD (chronic obstructive pulmonary disease)[ICD9: 496] Diagnosis: Cauda equina syndrome[ICD9: 344.60] Diagnosis: History of prostate cancer[ICD9: V10.46] Kavya Aburto MD, [facility] CPT-4: 12522 07/04/2014 Plan of Care Planned Activity Notes Codes Status Date Appointment: Lab Draw 12/14/2017 Patient Education: Patient Medication Summary Completed 12/14/2017 Appointment: Darleen Aburto WPtel: [address] [place], [place] [phone] (15 min) Moderate 11/28/2017 Visit Plan: Hypertension [...] culture report. 11/14/2017 Appointment: Darleen [facility]el[facility] (15 min) Moderate 11/14/2017 Patient [...] this patient. 08/15/2017 Appointment: [phone] [facility] (30 min) Complex 08/15/2017 Patient Education: Patient Medication Summary Completed 08/15/2017 Appointment: Mary Alan WPtel: [phone] [facility] [place] (15 min) Moderate 08/08/2017 Appointment: Mary Alan WPtel: [phone] [facility] (15 min) Moderate 08/03/2017 Visit Plan: Cauda [...] pain symptoms. 06/29/2017 Appointment: [facility]el[facility] [phone] [facility] [place] (15 min) Moderate 06/29/2017 Patient Education: [...] not improve. 03/30/2017 Appointment: Mary Alan [facility]Ptel[facility] [phone] [facility] (30 min) Complex 03/30/2017 Patient Education: Patient Medication Summary Completed 03/30/2017 Visit Plan: Cough-suspect virus-patient to monitor over the weekend-call Monday if symptoms persist and we will do a chest xray and sputum culture Cdiff-treat with flagyl as directed-call if symptoms do not resolve 10/07/2016 Appointment: Kavya Subramanian WPtel: [phone] [phone] (30 min) Complex 10/07/2016 Patient Education: Patient Medication Summary Completed 10/07/2016 Patient Education: Obesity Completed 10/07/2016 Visit Plan: Cauda equina-chronic back pain-generalized weakness- bilateral shoulder pain/weakness-OA knees-patient to contact juan blancas for mobility paperwork-will ask PT to do a mobility exam through [facility]. Patient is non ambulatory due to [...] pain-generalized weakness- right shoulder pain/weakness-patient to contact [facility] for mobility paperwork-will ask PT to do a mobility exam through [facility] Drug induced constipation-rx for movantik. 07/01/2016 Appointment: Kavya Subramanian [facility]Ptel[facility] [phone] [facility] [place] (30 min) Complex 07/01/2016 Patient Education: [...] his surgery. 05/05/2016 Appointment: Mary Alan WPtel: [facility] [facility]ance 05/05/2016 Patient Education: Patient [...] Juan godoy. 02/23/2016 Appointment: Mary Alan WPtel: [facility] (30 min) Complex 02/23/2016 Patient Education: Patient Medication Summary Completed 02/23/2016 Appointment: Mary Alan WPtel: [facility] (30 min) Complex 02/19/2016 Appointment: Darleen Aburto WPtel: [address] [place], [place] [phone] (15 min) Moderate 10/14/2015 Appointment: Lab Draw [...] 3 times a day and all me Zain - if they are still high we [...] having loose bowel movements. Keep appointment with Rn Bariatric Make an appointment with ethanol operations manager - to follow up on shortness of breath. Weakness - pt is to contact Juan Godoy in [facility] and Call clinic when he is ready [...] not improved. 07/24/2015 Appointment: Kavya Subramanian WPtel: [address] [place], [place] [phone] (30 min) [facility] 07/24/2015 Patient Education: Patient Medication Summary [...] and hypertension. 09/15/2014 Appointment: Darleen Aburto WPtel: [facility] (15 min) Moderate 09/15/2014 Patient [...] Education: Hypertension Completed 07/04/2014 Instructions Comment . Iron deficiency anemia-check labs-continue oral iron [...] Peng 4. Make an appointment with your ethanol operations manager - to follow up on shortness of breath. 5. Call us when you here about the mobility paperwork and we will fill out the paperwork. Juan Blancas Mob[facility] in [facility] . Hypertension - The patient has been [...] having loose bowel movements. Keep appointment with Rn Bariatric Make an appointment with ethanol operations manager - to follow up on shortness of breath. Weakness - pt is to contact Juan PierceYonnyfield Godoy in [facility] and Call clinic when he is ready [...] - will have pt contact Juan Blancas [facility]. . Pt complains of abdominal pain, [...] directed-call if symptoms do not resolve . Gastroenteritis - Pt is to get [...] tolerated. Call if symptoms not improved. . Urinary Tract Infection-discussed natural and expected [...] do PT evaluation for motorized wheelchair through [employer] . Cauda equina-chronic back pain-generalized weakness-bilateral shoulder pain/weakness- OA knees-patient to contact [employer] for mobility paperwork-will ask PT to do a mobility exam through [employer]. Patient is non ambulatory due to cauda [...] details. Drug induced constipation-rx for movantik. [employer] [place] to do PT evaluation for motorized wheelchair through [employer] . Cauda equina-chronic back pain-generalized weakness-right shoulder pain/weakness- patient to contact [employer] for mobility paperwork-will ask PT to do a mobility exam through [employer] Drug induced constipation-rx for [employer]antik. . Cauda Equina Syndrome/diarrhea - Pt is to have abdominal surgery next week - Dr. Aburto in to assess pt - Pt cleared for surgery - pt is to notify clinic with any questions or concerns. Pt is to follow up after his surgery. . Thrush/oral pain- swab obtained - Pt [...] has been appropriately prescribed for this patient. Decrease effexor to 2 pills daily x 3 days, then 1 pill daily x 1 week and start Cymbalta daily x 1 week, then stop Effexor and increase Cymbalta to 2 pills daily. Will consult Tiffany Bullard [place]. Cauda Equina - stable - continue [...]
--- OUTSIDE RECORDS SUMMARY | 2018-07-19 09:44 | XMS REPORT | CCD ---
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 Name Role Phone PP Unavailable CCM Unavailable Summary Purpose Interface Exchange Insurance Providers Payer name Policy type / Coverage type Covered green party ID Effective Begin Date Effective End Date WPS Medicare Part B Commercial Insurance [id number] Unknown Unknown HEALTHCHOICE Commercial Insurance [id number] Unknown Unknown Family history Father Diagnosis Age At Onset Coronary Artery Disease Unknown Mother Diagnosis Age At Onset Arthritis Unknown Sister Diagnosis Age At Onset Alzheimer's Disease Unknown Social History Social History Element Codes Description Effective Dates Marital status Unknown 07/04/2014 Number of children Unknown 2 07/04/2014 Living arrangements Unknown House 07/04/[address]: 8549953 Quit over 10 years ago 07/04/2014 Alcohol history Unknown occasionally drinks alcohol 07/04/2014 Frequency of drinks SNOMED CT: 505768732 Drinks rarely 07/04/2014 Allergies, Adverse Reactions, Alerts Substance Reaction Codes Entered Date Inactivated Date Status * NO KNOWN FOOD ALLERGIES Unknown 07/04/2014 No Inactive Date Active Iodine rash, pruritis, RxNorm: 5933 03/04/2015 No Inactive Date Active tramadol pruritis RxNorm: 16330 07/04/2014 No Inactive Date Active Past Medical [...] Start Date Stop Date Status Fill Instructions potassium chloride ER 20 mEq tablet,extended release RxNorm: 859558 1 TABLET(S) PO DAILY 03/09/2018 03/03/2019 Active oxycodone 5 mg tablet RxNorm: 5207713 4 Tablet(s) PO daily 01/18/2018 04/02/2018 Active Augmentin 500 mg-125 mg tablet RxNorm: 085729 1 Tablet(s) PO TID 12/14/2017 12/23/2017 Inactive take probiotic bid x 10 days pantoprazole 40 mg tablet,delayed release RxNorm: 946179 TAKE 1 TABLET BY MOUTH DAILY 12/11/2017 12/05/2018 Active Augmentin 500 mg-125 mg tablet RxNorm: 645993 1 Tablet(s) PO TID 11/17/2017 11/22/2017 Inactive take probiotic bid x 7 days lisinopril 40 mg tablet RxNorm: 732198 TAKE 1 TABLET BY MOUTH DAILY 11/06/2017 08/02/2018 Active oxycodone 5 mg tablet RxNorm: 7110409 4 Tablet(s) PO daily 10/16/2017 12/29/2017 Inactive Cymbalta 30 mg capsule,delayed release RxNorm: 023907 2 Capsule(s) PO daily 08/17/2017 02/12/2018 Inactive Zoloft 25 mg tablet RxNorm: 794425 1 TABLET(S) PO DAILY X 5 DAYS THEN INCREASE TO 50MG DAILY 08/16/2017 No Stop Date Active Cymbalta 30 mg capsule,delayed release RxNorm: 399713 1 Capsule(s) PO 1 CAPSULE(S) PO DAILY X 1 WEEK, THEN INCREASE TO 2 DAILY 08/15/2017 08/16/2017 Inactive Patient requests 90 days supply diclofenac sodium 75 mg tablet,delayed release RxNorm: 830550 1 TABLET(S) PO BID 08/14/2017 05/10/2018 Active oxycodone 5 mg tablet RxNorm: 5468338 4 Tablet(s) PO daily 08/01/2017 10/14/2017 Inactive valacyclovir 1 gram tablet RxNorm: 405182 1 Tablet(s) PO TID 07/12/2017 07/11/2017 Inactive Zoloft 50 mg tablet RxNorm: 653281 1 Tablet(s) PO daily 07/12/2017 08/01/2017 Inactive valacyclovir 1 gram tablet RxNorm: 921977 1 Tablet(s) PO TID 07/12/2017 07/18/2017 Inactive Zoloft 50 mg tablet RxNorm: 547634 1 Tablet(s) PO daily 07/12/2017 07/11/2017 Inactive Zoloft 25 mg tablet RxNorm: 793041 1 Tablet(s) PO daily x 5 days then increase to 50mg daily 07/11/2017 07/11/2017 Inactive Cymbalta 30 mg capsule,delayed release RxNorm: 844821 1 Capsule(s) PO daily x 1 week, then increase to 2 daily 06/30/2017 06/29/2017 Inactive Cymbalta 30 mg capsule,delayed release RxNorm: 288750 1 CAPSULE(S) PO DAILY X 1 WEEK, THEN INCREASE TO 2 DAILY 06/30/2017 07/04/2017 Inactive Patient requests 90 days supply Augmentin 875 mg-125 mg tablet RxNorm: 019278 1 Tablet(s) PO BID 05/22/2017 05/28/2017 Inactive Probiotic QID while on antibiotics Bactrim DS 800 mg-160 mg tablet RxNorm: 755414 1 Tablet(s) PO BID 05/22/2017 05/21/2017 Inactive Probiotic QID while on antibiotics Bactrim DS 800 mg-160 mg tablet RxNorm: 228869 1 Tablet(s) PO BID 05/22/2017 05/28/2017 Inactive Probiotic QID while on antibiotics Augmentin 875 mg-125 mg tablet RxNorm: 825007 1 Tablet(s) PO BID 05/22/2017 05/21/2017 Inactive Probiotic QID while on antibiotics Cipro 500 mg tablet RxNorm: 522972 1 Tablet(s) PO BID 04/21/2017 04/30/2017 Inactive Take probiotic while on ABT Cipro 500 mg tablet RxNorm: 822933 1 Tablet(s) PO BID 04/21/2017 04/20/2017 Inactive Diflucan 150 mg tablet RxNorm: 064907 1 Tablet(s) PO daily 04/19/2017 11/13/2017 Inactive Diflucan 150 mg tablet RxNorm: 203848 1 Tablet(s) PO daily 04/19/2017 04/18/2017 Inactive oxycodone 5 mg tablet RxNorm: 4712261 4 Tablet(s) PO daily 04/17/2017 06/30/2017 Inactive gabapentin 600 mg tablet RxNorm: 492563 TABLET(S) TAKE 1 TABLET BY MOUTH TWICE DAILY 04/14/2017 04/08/2018 Active Rocephin 1 gram solution for injection RxNorm: 821875 1 Inj daily 04/05/2017 04/11/2017 Inactive Rocephin 1 gram solution for injection RxNorm: 723810 1 Inj daily 04/04/2017 04/04/2017 Inactive lidocaine (PF) 10 mg/mL (1 %) injection solution RxNorm: 3160071 1 Milliliter(s) Inj daily 04/04/2017 04/10/2017 Inactive Use to administer rocephin lidocaine (PF) 10 mg/mL (1 %) injection solution RxNorm: 7296466 1 Milliliter(s) Inj daily 04/04/2017 04/03/2017 Inactive Use to administer rocephin Rocephin 1 gram solution for injection RxNorm: 424224 1 Inj daily 04/04/2017 04/03/2017 Inactive Augmentin 500 mg-125 mg tablet RxNorm: 334079 1 Tablet(s) PO TID 03/31/2017 04/03/2017 Inactive Augmentin 500 mg-125 mg tablet RxNorm: 793370 1 Tablet(s) PO TID 03/31/2017 03/30/2017 Inactive Effexor XR 75 mg capsule,extended release RxNorm: 998825 TAKE 3 CAPSULES BY MOUTH EVERY MORNING 03/24/2017 11/13/2017 Inactive potassium chloride ER 20 mEq tablet,extended release RxNorm: 630733 1 TABLET(S) PO DAILY 03/13/2017 03/07/2018 Inactive lisinopril 40 mg tablet RxNorm: 065083 TAKE 1 TABLET BY MOUTH DAILY 02/06/2017 11/02/2017 Inactive pantoprazole 40 mg tablet,delayed release RxNorm: 475645 TAKE 1 TABLET BY MOUTH DAILY 12/19/2016 12/10/2017 Inactive oxycodone 5 mg tablet RxNorm: 4890722 4 Tablet(s) PO daily 12/19/2016 03/03/2017 Inactive diclofenac sodium 75 mg tablet,delayed release RxNorm: 112414 1 TABLET(S) PO BID 11/17/2016 08/13/2017 Inactive gabapentin 600 mg tablet RxNorm: 612001 TABLET(S) TAKE 1 TABLET BY MOUTH TWICE DAILY 10/14/2016 04/11/2017 Inactive Flagyl 500 mg tablet RxNorm: 311292 1 Tablet(s) PO TID 10/07/2016 10/16/2016 Inactive oxycodone 5 mg tablet RxNorm: 4789031 4 Tablet(s) PO daily 10/03/2016 12/16/2016 Inactive Effexor XR 75 mg capsule,extended release RxNorm: 456062 TAKE 3 CAPSULES BY MOUTH EVERY MORNING 09/22/2016 11/20/2016 Inactive Patient requests 90 days supply lisinopril 40 mg tablet RxNorm: 272233 TAKE 1 TABLET BY MOUTH DAILY 08/01/2016 01/27/2017 Inactive Effexor XR 75 mg capsule,extended release RxNorm: 415772 TAKE 3 CAPSULES BY MOUTH EVERY MORNING 07/21/2016 09/21/2016 Inactive oxycodone 5 mg tablet RxNorm: 5805990 4 Tablet(s) PO daily 07/11/2016 09/23/2016 Inactive Movantik 25 mg tablet RxNorm: 2924919 1 Tablet(s) PO daily 07/01/2016 11/13/2017 Inactive potassium chloride ER 20 mEq tablet,extended release RxNorm: 808414 1 TABLET(S) PO DAILY 06/14/2016 03/10/2017 Inactive Flagyl 500 mg tablet RxNorm: 071808 1 Tablet(s) PO TID 06/03/2016 06/12/2016 Inactive Flagyl 500 mg tablet RxNorm: 546271 1 Tablet(s) PO TID 06/03/2016 06/02/2016 Inactive oxycodone 5 mg tablet RxNorm: 1908469 4 Tablet(s) PO daily 04/27/2016 07/10/2016 Inactive Tamiflu 75 mg capsule RxNorm: 459414 1 Capsule(s) PO daily 04/19/2016 04/28/2016 Inactive Tamiflu 75 mg capsule RxNorm: 394366 1 Capsule(s) PO daily 04/19/2016 04/18/2016 Inactive Effexor XR 75 mg capsule,extended release RxNorm: 163202 TAKE 3 CAPSULES BY MOUTH EVERY MORNING 02/18/2016 04/17/2016 Inactive diclofenac sodium 75 mg tablet,delayed release RxNorm: 665145 1 TABLET(S) PO BID 02/18/2016 11/13/2016 Inactive Effexor XR 75 mg capsule,extended release RxNorm: 449677 Capsule(s) TAKE 3 CAPSULES BY MOUTH EVERY MORNING 02/17/2016 08/14/2016 Inactive oxycodone 5 mg tablet RxNorm: 8443458 4 Tablet(s) PO daily 02/04/2016 04/26/2016 Inactive clopidogrel 75 mg tablet RxNorm: 972308 1 TABLET(S) PO QAM 02/01/2016 01/25/2017 Inactive gabapentin 600 mg tablet RxNorm: 843208 Tablet(s) TAKE 1 TABLET BY MOUTH TWICE DAILY 02/01/2016 10/13/2016 Inactive Effexor XR 75 mg capsule,extended release RxNorm: 459437 TAKE 3 CAPSULES BY MOUTH EVERY MORNING 01/11/2016 02/09/2016 Inactive pantoprazole 40 mg tablet,delayed release RxNorm: 555688 TAKE 1 TABLET BY MOUTH DAILY 12/22/2015 12/15/2016 Inactive Effexor XR 75 mg capsule,extended release RxNorm: 350224 TAKE 3 CAPSULES BY MOUTH EVERY MORNING 11/16/2015 01/14/2016 Inactive lisinopril 40 mg tablet RxNorm: 486804 TAKE 1 TABLET BY MOUTH DAILY 11/05/2015 07/31/2016 Inactive Effexor XR 75 mg capsule,extended release RxNorm: 056823 TAKE 3 CAPSULES BY MOUTH EVERY MORNING 09/22/2015 11/20/2015 Inactive Augmentin 500 mg-125 mg tablet RxNorm: 175037 1 Tablet(s) PO TID 09/18/2015 09/24/2015 Inactive Anoro Ellipta 62.5 mcg-25 mcg/actuation powder for inhalation RxNorm: 0735626 1 INH daily 08/20/2015 02/15/2016 Inactive Anoro Ellipta 62.5 mcg-25 mcg/actuation powder for inhalation RxNorm: 4443526 1 INH DAILY 08/20/2015 11/13/2017 Inactive lisinopril 40 mg tablet RxNorm: 207255 TAKE 1 TABLET BY MOUTH DAILY 08/10/2015 11/04/2015 Inactive gabapentin 600 mg tablet RxNorm: 324918 TAKE 1 TABLET BY MOUTH TWICE DAILY 08/10/2015 01/31/2016 Inactive terazosin 2 mg capsule RxNorm: 344997 TAKE ONE CAPSULE BY MOUTH EVERY DAY 07/27/2015 08/29/2016 Inactive hyoscyamine 0.125 mg sublingual tablet RxNorm: 8709070 1 Tablet(s) SL TID as needed 07/24/2015 08/02/2015 Inactive metronidazole 500 mg tablet RxNorm: 368677 1 Tablet(s) PO TID 07/24/2015 07/30/2015 Inactive Effexor XR 75 mg capsule,extended release RxNorm: 631574 TAKE 3 CAPSULES BY MOUTH EVERY MORNING 07/23/2015 09/20/2015 Inactive oxycodone 5 mg tablet RxNorm: 9145068 4 Tablet(s) PO daily 06/26/2015 02/03/2016 Inactive potassium chloride ER 20 mEq tablet,extended release RxNorm: 208971 1 Tablet(s) PO daily 06/25/2015 06/13/2016 Inactive oxycodone 5 mg tablet RxNorm: 1335094 4 Tablet(s) PO daily 04/17/2015 06/25/2015 Inactive rx written Anoro Ellipta 62.5 mcg-25 mcg/actuation powder for inhalation RxNorm: 6626644 1 INH daily 04/17/2015 08/19/2015 Inactive potassium chloride ER 20 mEq tablet,extended release RxNorm: 281100 1 Tablet(s) PO daily 03/23/2015 06/24/2015 Inactive triamcinolone acetonide 0.1 % topical cream RxNorm: 3875119 1 Application TOP BID 03/20/2015 No Stop Date Active carvedilol 12.5 mg tablet RxNorm: 275839 1 TABLET(S) PO BID 02/23/2015 08/21/2015 Inactive diclofenac sodium 75 mg tablet,delayed release RxNorm: 654718 1 Tablet(s) PO BID 02/18/2015 02/12/2016 Inactive carvedilol 12.5 mg tablet RxNorm: 307336 1 Tablet(s) PO BID 02/17/2015 02/11/2016 Inactive furosemide 40 mg tablet RxNorm: 487586 1 Tablet(s) PO daily 02/17/2015 02/11/2016 Inactive lisinopril 40 mg tablet RxNorm: 684144 TAKE 1 TABLET BY MOUTH DAILY 02/16/2015 08/09/2015 Inactive ceftriaxone 1 gram solution for injection RxNorm: 2988118 1 Gram(s) Inj daily mix with lidocaine 01/14/2015 01/17/2015 Inactive please supply 4 bottles of 1gram rocephin IM with 1 bottle of lidocaine 1% for home health to administer to pt starting 01/15 ceftriaxone 1 gram solution for injection RxNorm: 9418077 1 Gram(s) Inj daily 01/14/2015 01/13/2015 Inactive please supply 4 bottles of 1gram rocephin IM with 1 bottle of lidocaine 1% for home health to administer to pt starting 01/15 Augmentin 500 mg-125 mg tablet RxNorm: 496578 1 Tablet(s) PO BID 01/13/2015 01/22/2015 Inactive Keflex 500 mg capsule RxNorm: 024909 1 Capsule(s) PO TID 12/12/2014 12/11/2014 Inactive Keflex 500 mg capsule RxNorm: 730039 1 Capsule(s) PO TID 12/12/2014 12/17/2014 Inactive Augmentin 500 mg-125 mg tablet RxNorm: 850766 1 Tablet(s) PO BID 11/28/2014 12/02/2014 Inactive Augmentin 500 mg-125 mg tablet RxNorm: 242283 1 Tablet(s) PO BID 11/28/2014 11/27/2014 Inactive Cipro 500 mg tablet RxNorm: 539247 1 Tablet(s) PO BID 11/24/2014 11/27/2014 Inactive gabapentin 600 mg tablet RxNorm: 455676 1 Tablet(s) PO BID 11/17/2014 08/13/2015 Inactive gabapentin 600 mg tablet RxNorm: 800381 1 Tablet(s) PO BID 11/17/2014 11/16/2014 Inactive oxycodone 5 mg tablet RxNorm: 2627838 4 Tablet(s) PO daily 11/07/2014 02/04/2015 Inactive rx written Effexor XR 75 mg capsule,extended release RxNorm: 721603 3 Capsule(s) 225 PO QAM 11/05/2014 03/04/2015 Inactive clopidogrel 75 mg tablet RxNorm: 470172 1 Tablet(s) PO QAM 11/05/2014 01/28/2016 Inactive Effexor XR 75 mg capsule,extended release RxNorm: 489137 3 Capsule(s) 225 PO QAM 11/03/2014 11/04/2014 Inactive carvedilol 12.5 mg tablet RxNorm: 006688 1 Tablet(s) PO BID 10/28/2014 02/16/2015 Inactive Effexor XR 75 mg capsule,extended release RxNorm: 605413 3 Capsule(s) 225 PO QAM 10/28/2014 11/02/2014 Inactive Effexor XR 75 mg capsule,extended release RxNorm: 241137 3 Capsule(s) 225 PO QAM 10/28/2014 10/27/2014 Inactive carvedilol 12.5 mg tablet RxNorm: 117946 1 Tablet(s) PO BID 10/28/2014 10/27/2014 Inactive ceftriaxone 1 gram solution for injection RxNorm: 2946178 Inj 09/05/2014 09/05/2014 Inactive Cipro 500 mg tablet RxNorm: 020501 1 Tablet(s) PO BID 09/04/2014 09/03/2014 Inactive Cipro 500 mg tablet RxNorm: 222836 1 Tablet(s) PO BID 09/04/2014 09/10/2014 Inactive oxycodone 5 mg tablet RxNorm: 8574996 4 Tablet(s) PO daily 08/20/2014 11/06/2014 Inactive rx written lisinopril 40 mg tablet RxNorm: 637714 TAKE 1 TABLET BY MOUTH DAILY 08/18/2014 02/13/2015 Inactive nystatin 100,000 unit/mL oral suspension RxNorm: 160730 5 Milliliter(s) PO QID 07/04/2014 07/13/2014 Inactive [SAVINGS FOR NON-COVERED DRUGS -- BIN:[id number], PCN: [id number], Group: [id number], ID# [id number], Questions: . THIS IS NOT INSURANCE.] WelChol 3.75 gram oral powder packet RxNorm: 522701 1 PO BID No Start Date Active amlodipine 10 mg tablet RxNorm: 539059 1 Tablet(s) PO QAM No Start Date Active One A Day oral RxNorm: 91674 oral No Start Date Active Vitamin D2 400 unit capsule RxNorm: 958971 1 Capsule(s) PO daily No Start Date Active aspirin 81 mg tablet,delayed release RxNorm: 937336 1 Tablet(s) PO daily No Start Date Active melatonin 5 mg disintegrating tablet RxNorm: 3723523 1 Tablet(s) PO QHS No Start Date Active Miralax 17 gram/dose oral powder RxNorm: 308669 17 Gram(s) PO daily in prune juice No Start Date Active clonidine HCl 0.1 mg tablet RxNorm: 119329 1 Tablet(s) PO QHS No Start Date Active hydrochlorothiazide oral RxNorm: 5487 oral No Start Date Active Lasix oral RxNorm: 218053 oral No Start Date 02/17/2015 Inactive potassium chloride 20 meq RxNorm: 334743 PO daily No Start Date 03/22/2015 Inactive Zoloft 25 mg tablet RxNorm: 563236 1 Tablet(s) PO daily x 5 days then increase to 50mg daily No Start Date 07/10/2017 Inactive oxycodone 5 mg tablet RxNorm: 7936667 3-4 Tablet(s) PO QHS No Start Date 08/19/2014 Inactive terazosin 2 mg capsule RxNorm: 473046 1 Capsule(s) PO daily No Start Date 07/26/2015 Inactive Effexor XR 75 mg capsule,extended release RxNorm: 240915 3 Capsule(s) 225 PO QAM No Start Date 10/27/2014 Inactive gabapentin 600 mg tablet RxNorm: 102827 1 Tablet(s) PO BID No Start Date 11/16/2014 Inactive pantoprazole 40 mg tablet,delayed release RxNorm: 338955 oral No Start Date 12/21/2015 Inactive Anoro Ellipta 62.5 mcg-25 mcg/actuation powder for inhalation RxNorm: 8416697 1 INH daily No Start Date 04/16/2015 Inactive diclofenac sodium 75 mg tablet,delayed release RxNorm: 189245 1 Tablet(s) PO BID No Start Date 02/17/2015 Inactive clopidogrel 75 mg tablet RxNorm: 238655 1 Tablet(s) PO QAM No Start Date 11/04/2014 Inactive lisinopril 40 mg tablet RxNorm: 686375 1 Tablet(s) PO daily No Start Date 08/17/2014 Inactive carvedilol 12.5 mg tablet RxNorm: 743154 1 Tablet(s) PO BID No Start Date 10/27/2014 Inactive Medication Administered Medication Codes Instructions Start Date Status ceftriaxone 1 gram solution for injection RxNorm: 8907199 09/05/2014 No longer Active Immunizations Vaccine Codes [...] (3rd IS) 3.24 uIU/mL 11/14/2017 Comp Metabolic Lsr981 NA 137 mEq/L 11/14/2017 Comp Metabolic Uiy167 K 4.0 mEq/L 11/14/2017 Comp Metabolic Izk263 CL 104 mEq/L 11/14/2017 Comp Metabolic Utt200 CO2 23.0 mEq/L 11/14/2017 Comp Metabolic Ncp678 ANION GAP 14 11/14/2017 Comp Metabolic Mtq891 GLUCOSE 101 mg/dL 11/14/2017 Comp Metabolic Nyw519 Creat 1.1 mg/dL 11/14/2017 Comp Metabolic Kpy337 eGFR 67 ml/min/1.73m2 11/14/2017 Comp Metabolic Ehw079 BUN 18 mg/dL 11/14/2017 Comp Metabolic Xub472 B/C Ratio 15.9 Ratio 11/14/2017 Comp Metabolic Zzr410 CALCIUM 9.0 mg/dL 11/14/2017 Comp Metabolic Fnp887 ALK PHOS 81 U/L 11/14/2017 Comp Metabolic Qmi847 AST(SGOT) 19 U/L 11/14/2017 Comp Metabolic Cvj280 ALT(SGPT) 18 U/L 11/14/2017 Comp Metabolic Tdj836 BILI T 0.3 mg/dL 11/14/2017 Comp Metabolic Bsf275 ALBUMIN 3.8 g/dL 11/14/2017 Comp Metabolic Lim895 TPRO 7.3 g/dL 11/14/2017 Comp Metabolic Oug953 GLOB 3.5 g/dL 11/14/2017 Comp Metabolic Yze994 A/G Ratio 1.1 Ratio 11/14/2017 Comp Metabolic Fdh467 Osmo 276 mOsmo 11/14/2017 Cbc With Differential [...] 29.9 pg 11/14/2017 Cbc With Differential Ord2 [place]% 11.2 % 11/14/2017 Cbc With Differential Ord2 [...] 1.85 K/ul 11/14/2017 Cbc With Differential Ord2 [place] ABS# 1.0 K/ul 11/14/2017 Cbc With Differential Ord2 Eos ABS# 0.6 K/ul 11/14/2017 Cbc With Differential Ord2 Baso ABS# 0.0 K/ul 11/14/2017 Culture Urine [id number] URINE CULTURE SEE NOTES 05/22/2017 Culture Urine [id number] Continued Results 05/22/2017 Urine Culture Ucult Complete >100,000 col/ml aerobic growth sent to ref lab 05/16/2017 Culture Urine [id number] URINE CULTURE SEE NOTES 04/21/2017 Urine Culture [...] 30.9 pg 03/30/2017 Cbc With Differential Ord2 [place]% 13.0 % 03/30/2017 Cbc With Differential Ord2 [...] 1.69 K/ul 03/30/2017 Cbc With Differential Ord2 [place] ABS# 0.9 K/ul 03/30/2017 Cbc With Differential Ord2 Eos ABS# 0.5 K/ul 03/30/2017 Cbc With Differential Ord2 Baso ABS# 0.0 K/ul 03/30/2017 %Hba1C Kej844 % HbA1c 13532- 6 5.8 % 03/30/2017 %Hba1C Wdv350 Gluc Ave 120 mg/dL 03/30/2017 Comp Metabolic Aeg139 NA 140 mEq/L 03/30/2017 Comp Metabolic Kyh628 K 4.0 mEq/L 03/30/2017 Comp Metabolic Jaf505 CL 105 mEq/L 03/30/2017 Comp Metabolic Ikk443 CO2 25.0 mEq/L 03/30/2017 Comp Metabolic Gki415 ANION GAP 14 03/30/2017 Comp Metabolic Kaz471 GLUCOSE 108 mg/dL 03/30/2017 Comp Metabolic Kch301 Creat 1.2 mg/dL 03/30/2017 Comp Metabolic Cwx091 eGFR 63 ml/min/1.73m2 03/30/2017 Comp Metabolic Ipy071 BUN 20 mg/dL 03/30/2017 Comp Metabolic Ovr602 B/C Ratio 16.9 Ratio 03/30/2017 Comp Metabolic Eko540 CALCIUM 9.2 mg/dL 03/30/2017 Comp Metabolic Qri358 ALK PHOS 83 U/L 03/30/2017 Comp Metabolic Gqw166 AST(SGOT) 17 U/L 03/30/2017 Comp Metabolic Mpa079 ALT(SGPT) 19 U/L 03/30/2017 Comp Metabolic Gsb878 BILI T 0.3 mg/dL 03/30/2017 Comp Metabolic Rsk680 ALBUMIN 3.9 g/dL 03/30/2017 Comp Metabolic Jzg476 TPRO 7.2 g/dL 03/30/2017 Comp Metabolic Pkr224 GLOB 3.3 g/dL 03/30/2017 Comp Metabolic Iom112 A/G Ratio 1.2 Ratio 03/30/2017 Comp Metabolic Ixl611 Osmo 283 mOsmo 03/30/2017 Tsh Ord6 TSH (3rd IS) 1.40 uIU/mL 03/30/2017 Clostridium Diff Tox A/B Wpu924 Cdiff Positive 06/03/2016 Total Psa PSA 1.53 [...] 27.4 % 03/20/2015 Cbc With Differential Ord2 [place]% 12.8 % 03/20/2015 Cbc With Differential Ord2 MCH 31.2 pg 03/20/2015 Cbc With Differential Ord2 Eos% 9.4 % 03/20/2015 Cbc With Differential Ord2 MCHC 31.5 pg 03/20/2015 Cbc With Differential Ord2 PLT 344 K/ul 03/20/2015 Cbc With Differential Ord2 Baso% 0.2 % 03/20/2015 Cbc With Differential Ord2 Neut ABS# 3.10 K/ul 03/20/2015 Cbc With Differential Ord2 RDW 16.0 % 03/20/2015 Cbc With Differential Ord2 Lymph ABS# 1.69 K/ul 03/20/2015 Cbc With Differential Ord2 [place] ABS# 0.8 K/ul 03/20/2015 Cbc With Differential Ord2 Eos ABS# 0.6 K/ul 03/20/2015 Cbc With Differential Ord2 Baso ABS# 0.0 K/ul 03/20/2015 Cbc With Differential Ord2 New Analyzer Notice Please note new ref ranges starting 03-04-2015 due to implemntation of new five part differential hematolgy analyzer. 03/20/2015 Total Psa Ord10 PSA 2.25 ng/mL 02/26/2015 Comp Metabolic Gra170 NA 138 mEq/L 02/26/2015 Comp Metabolic Lne258 K 4.0 mEq/L 02/26/2015 Comp Metabolic Nxz463 CL 103 mEq/L 02/26/2015 Comp Metabolic Jzn279 CO2 28.0 mEq/L 02/26/2015 Comp Metabolic Css915 ANION GAP 11 02/26/2015 Comp Metabolic Rtr399 GLUCOSE 95 mg/dL 02/26/2015 Comp Metabolic Fnf079 Creat 1.0 mg/dL 02/26/2015 Comp Metabolic Mrt297 eGFR 74 ml/min/1.73m2 02/26/2015 Comp Metabolic Pyj884 BUN 19 mg/dL 02/26/2015 Comp Metabolic Bzg187 B/C Ratio 18.3 Ratio 02/26/2015 Comp Metabolic Zrf756 CALCIUM 9.1 mg/dL 02/26/2015 Comp Metabolic Cjg971 ALK PHOS 87 U/L 02/26/2015 Comp Metabolic Chx121 AST(SGOT) 22 U/L 02/26/2015 Comp Metabolic Wco646 ALT(SGPT) 24 U/L 02/26/2015 Comp Metabolic Fle826 BILI T 0.4 mg/dL 02/26/2015 Comp Metabolic Ohg959 ALBUMIN 4.0 g/dL 02/26/2015 Comp Metabolic Ibm593 TPRO 7.4 g/dL 02/26/2015 Comp Metabolic Mzh378 GLOB 3.4 g/dL 02/26/2015 Comp Metabolic Wgv232 A/G Ratio 1.2 Ratio 02/26/2015 Comp Metabolic Ota650 Osmo 278 mOsmo 02/26/2015 Culture Urine [id number] URINE CULTURE SEE NOTES 12/15/2014 Culture Urine [id number] Continued Results 12/15/2014 Urine Culture Ucult Complete >100,000 col/ml aerobic growth sent to ref lab 12/12/2014 Comp Metabolic Hwp044 NA 136 mEq/L 12/05/2014 Comp Metabolic Gbe709 K 4.3 mEq/L 12/05/2014 Comp Metabolic Wzg568 CL 104 mEq/L 12/05/2014 Comp Metabolic Crz620 CO2 29.0 mEq/L 12/05/2014 Comp Metabolic Xrl860 ANION GAP 7 12/05/2014 Comp Metabolic Osv004 GLUCOSE 80 mg/dL 12/05/2014 Comp Metabolic Dyr316 Creat 1.1 mg/dL 12/05/2014 Comp Metabolic Cro984 eGFR 68 ml/min/1.73m2 12/05/2014 Comp Metabolic Ola002 BUN 21 mg/dL 12/05/2014 Comp Metabolic Por892 B/C Ratio 18.8 Ratio 12/05/2014 Comp Metabolic Yld798 CALCIUM 9.3 mg/dL 12/05/2014 Comp Metabolic Aqt717 ALK PHOS 81 U/L 12/05/2014 Comp Metabolic Eyt998 AST(SGOT) 17 U/L 12/05/2014 Comp Metabolic Buy724 ALT(SGPT) 16 U/L 12/05/2014 Comp Metabolic Lvb266 BILI T 0.3 mg/dL 12/05/2014 Comp Metabolic Brm226 ALBUMIN 4.0 g/dL 12/05/2014 Comp Metabolic Ica244 TPRO 6.9 g/dL 12/05/2014 Comp Metabolic Umf248 GLOB 2.9 g/dL 12/05/2014 Comp Metabolic Qxg119 A/G Ratio 1.4 Ratio 12/05/2014 Comp Metabolic Npm274 Osmo 274 mOsmo 12/05/2014 Cbc With Differential [...] Ord2 RDW 15.0 % 12/05/2014 Culture Urine [id number] URINE CULTURE SEE NOTES 11/27/2014 Culture Urine [id number] Continued Results 11/27/2014 Urine Culture Ucult Complete Growth of aerobe sent to ref lab 11/25/2014 B Type Natriuretic Peptide Lxu6303 B-SENIOR TECH[employer]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 BUSINESS 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 121.00 pg/ml 10/08/2014 Cbc With Differential Ord2 [...] Folate Ord36 Folate 22.12 ng/mL 10/08/2014 B12 Kus659 B12 >1500.00 pg/ml 10/08/2014 Comp Metabolic Wjf921 NA 135 mEq/L 10/08/2014 Comp Metabolic Pnf276 K 4.5 mEq/L 10/08/2014 Comp Metabolic Lxm155 CL 104 mEq/L 10/08/2014 Comp Metabolic Oau694 CO2 25.0 mEq/L 10/08/2014 Comp Metabolic Knc624 ANION GAP 11 10/08/2014 Comp Metabolic Exn659 GLUCOSE 73 mg/dL 10/08/2014 Comp Metabolic Zky376 Creat 1.1 mg/dL 10/08/2014 Comp Metabolic Kuh505 eGFR 71 ml/min/1.73m2 10/08/2014 Comp Metabolic Jhy324 BUN 21 mg/dL 10/08/2014 Comp Metabolic Nrl533 B/C Ratio 19.4 Ratio 10/08/2014 Comp Metabolic Uqx592 CALCIUM 9.0 mg/dL 10/08/2014 Comp Metabolic Ign479 ALK PHOS 73 U/L 10/08/2014 Comp Metabolic Wth140 AST(SGOT) 15 U/L 10/08/2014 Comp Metabolic Hku916 ALT(SGPT) 14 U/L 10/08/2014 Comp Metabolic Kfn944 BILI T 0.4 mg/dL 10/08/2014 Comp Metabolic Ljt120 ALBUMIN 4.2 g/dL 10/08/2014 Comp Metabolic Iff145 TPRO 7.1 g/dL 10/08/2014 Comp Metabolic Abj493 GLOB 2.9 g/dL 10/08/2014 Comp Metabolic Jnc168 A/G Ratio 1.4 Ratio 10/08/2014 Comp Metabolic Zyq446 Osmo 272 mOsmo 10/08/2014 B12 Vzc330 B12 554.00 pg/ml 09/16/2014 Tibc Ord40 Iron 108 ug/dl 09/16/2014 Tibc Ord40 UIBC 281 ug/dL 09/16/2014 Tibc Ord40 TIBC 389 ug/dL 09/16/2014 Tibc Ord40 Fe-%Sat 27.8 % 09/16/2014 Folate Ord36 Folate >23.20 ng/mL 09/16/2014 Comp Metabolic Zsh779 NA 134 mEq/L 09/16/2014 Comp Metabolic Gsx469 K 4.6 mEq/L 09/16/2014 Comp Metabolic Anv749 CL 103 mEq/L 09/16/2014 Comp Metabolic Wtr633 CO2 25.0 mEq/L 09/16/2014 Comp Metabolic Ddc172 ANION GAP 11 09/16/2014 Comp Metabolic Vge145 GLUCOSE 93 mg/dL 09/16/2014 Comp Metabolic Eln881 Creat 1.2 mg/dL 09/16/2014 Comp Metabolic Vod903 eGFR 65 ml/min/1.73m2 09/16/2014 Comp Metabolic Ovo393 BUN 23 mg/dL 09/16/2014 Comp Metabolic Gie916 B/C Ratio 19.8 Ratio 09/16/2014 Comp Metabolic Mwz945 CALCIUM 9.1 mg/dL 09/16/2014 Comp Metabolic Jjb852 ALK PHOS 73 U/L 09/16/2014 Comp Metabolic Kcz570 AST(SGOT) 18 U/L 09/16/2014 Comp Metabolic Pgf216 ALT(SGPT) 16 U/L 09/16/2014 Comp Metabolic Oax982 BILI T 0.4 mg/dL 09/16/2014 Comp Metabolic Bav203 ALBUMIN 4.0 g/dL 09/16/2014 Comp Metabolic Fjb196 TPRO 7.1 g/dL 09/16/2014 Comp Metabolic Lun568 GLOB 3.1 g/dL 09/16/2014 Comp Metabolic Opf896 A/G Ratio 1.3 Ratio 09/16/2014 Comp Metabolic Gbb940 Osmo 272 mOsmo 09/16/2014 Cbc With Differential [...] Ord22 FERRITIN 36.2 ng/mL 09/16/2014 Culture Urine [id number] URINE CULTURE SEE NOTES 09/08/2014 Urine Culture [...] Ord2 RDW 17.8 % 09/05/2014 Comp Metabolic Qzw929 NA 133 mEq/L 09/05/2014 Comp Metabolic Wcc602 K 4.9 mEq/L 09/05/2014 Comp Metabolic Jqf526 CL 99 mEq/L 09/05/2014 Comp Metabolic Ych885 CO2 26.0 mEq/L 09/05/2014 Comp Metabolic Jnc244 ANION GAP 13 09/05/2014 Comp Metabolic Tbn729 GLUCOSE 83 mg/dL 09/05/2014 Comp Metabolic Udm085 Creat 1.5 mg/dL 09/05/2014 Comp Metabolic Iup562 eGFR 47 ml/min/1.73m2 09/05/2014 Comp Metabolic Afm721 BUN 28 mg/dL 09/05/2014 Comp Metabolic Dyc655 B/C Ratio 18.3 Ratio 09/05/2014 Comp Metabolic Sqj527 CALCIUM 8.9 mg/dL 09/05/2014 Comp Metabolic Lge520 ALK PHOS 71 U/L 09/05/2014 Comp Metabolic Uaa032 AST(SGOT) 18 U/L 09/05/2014 Comp Metabolic Nil545 ALT(SGPT) 29 U/L 09/05/2014 Comp Metabolic Stw531 BILI T 0.6 mg/dL 09/05/2014 Comp Metabolic Ehb415 ALBUMIN 3.8 g/dL 09/05/2014 Comp Metabolic Llr087 TPRO 6.7 g/dL 09/05/2014 Comp Metabolic Aiz980 GLOB 2.9 g/dL 09/05/2014 Comp Metabolic Dhw921 A/G Ratio 1.3 Ratio 09/05/2014 Comp Metabolic Xdz109 Osmo 271 mOsmo 09/05/2014 Total Psa Ord10 [...] Codes Date URINALYSIS NONAUTO W/O SCOPE CPT-4: 90481 12/14/2017 URINALYSIS NONAUTO W/O SCOPE CPT-4: 36181 05/15/2017 URINALYSIS NONAUTO W/O SCOPE CPT-4: 73512 09/18/2015 ADMIN INFLUENZA VIRUS VAC CPT-4: G0008 12/31/2014 FLU VACC PRSV FREE INC ANTIG Assigned to/[place] French, Miketing Model/CDA Sections CPT-4: 57462Kemqrue 12/31/2014 URINALYSIS NONAUTO W/O SCOPE CPT-4: 19104 12/10/2014 URINALYSIS NONAUTO W/O SCOPE CPT-4: 79638 11/24/2014 ROCEPHIN, PER 250 MG CPT- 4: J0696 09/05/2014 THER/PROPH/DIAG INJ SC/IM CPT-4: 73465 09/05/2014 URINALYSIS NONAUTO W/O SCOPE CPT-4: 09402 09/04/2014 Vital Signs Date Vital 11/14/2017 Blood [...] 1: 138/60 Code: 8480-6 BMI: 37.2 Code: 52460-1 Heart Rate 1: 79 bpm Height: 5'9" SpO2: 91% Weight: 252 lbs 07/01/2016 Blood Pressure 1: 138/68 Code: 8480-6 BMI: 37.2 Code: 65047-3 Heart Rate 1: 69 bpm Height: 5'9" SpO2: 93% Weight: 252 lbs 05/05/2016 Blood Pressure 1: 136/78 Code: 8480-6 BMI: 39.3 Code: 44383-6 Heart Rate 1: 72 bpm Height: 5'9" SpO2: 97% Weight: 266 lbs 02/23/2016 Blood Pressure 1: 145/70 Code: 8480-6 BMI: 37.5 Code: 85700-5 Heart Rate 1: 80 bpm Height: 5'9" Weight: 254 lbs 09/16/2015 Blood Pressure 1: 140/62 Code: 8480-6 Heart Rate 1: 77 bpm Height: 5'9" SpO2: 93% Weight: 07/24/2015 Blood Pressure 1: 152/68 Code: 8480-6 BMI: 37.7 Code: 87864-6 Heart Rate 1: 73 bpm Height: 5'9" SpO2: 97% Weight: 255 lbs 03/20/2015 Blood Pressure 1: 146/74 Code: 8480-6 BMI: 38.1 Code: 87434-6 Heart Rate 1: 63 bpm Height: 5'9" Weight: 258 lbs 01/13/2015 Blood Pressure 1: 120/58 Code: 8480-6 Heart Rate 1: 52 bpm Height: 5'9" SpO2: 97% Temperature: 37.1 (C) / 98.7 (F) Weight: 12/05/2014 Blood Pressure 1: 134/54 Code: 8480-6 BMI: 36.3 Code: 55857-6 Heart Rate 1: 76 bpm Height: 5'9" SpO2: 93% Weight: 246 lbs 10/03/2014 Blood Pressure 1: 132/60 Code: 8480-6 Heart Rate 1: 76 bpm Height: SpO2: 95% Weight: 254 lbs 09/15/2014 Blood Pressure 1: 120/68 Code: 8480-6 BMI: 37.5 Code: 33049-1 Heart Rate 1: 76 bpm Height: 5'9" SpO2: 93% Weight: 254 lbs 09/05/2014 Blood Pressure 1: 110/50 Code: 8480-6 BMI: 37.4 Code: 50959-9 Heart Rate 1: 79 bpm Height: 5'9" SpO2: 96% Temperature: 36.3 (C) / 97.4 (F) Weight: 253 lbs 07/04/2014 Blood Pressure 1: 138/72 Code: 8480-6 BMI: 37.1 Code: 02069-0 Heart Rate 1: 72 bpm Height: 5'9" [...] discomfort 12/05/2014 occasional ache in chest- seeing shop repairer in [place]- doing heart cath in October [...] discomfort 10/03/2014 occasional ache in chest- seeing shop repairer in [place]- doing heart cath in October [...] data Encounters Encounter Performer Location Codes Date ( 60386 EST. PATIENT, LEVEL IV Diagnosis: Essential (primary) hypertension[ICD10: I10] Diagnosis: Other iron deficiency anemias[ICD10: D50.8] Diagnosis: Weakness[ICD10: R53.1] Darleen Aburto MD, [facility] CPT-4: 54015 11/14/2017 77912 EST. PATIENT, LEVEL IV Diagnosis: Other lesions of oral mucosa[ICD10: K13.79] Diagnosis: Candidal stomatitis[ICD10: B37.0] Diagnosis: Generalized anxiety disorder[ICD10: F41.1] Diagnosis: Major depressive disorder, single episode, moderate[ICD10: F32.1] Mary Aburto MD, [facility] CPT-4: 30995 08/15/2017 [id number] EST. PATIENT, LEVEL III Diagnosis: Generalized anxiety disorder[ICD10: F41.1] Diagnosis: Cauda equina syndrome[ICD10: G83.4] Diagnosis: Major depressive disorder, single episode, moderate[ICD10: F32.1] Mary Aburto MD, [facility] CPT-4: 44517 06/29/2017 03655 EST. PATIENT, LEVEL IV Diagnosis: Dysuria[ICD10: R30.0] Diagnosis: Other malaise[ICD10: R53.81] Diagnosis: Cauda equina syndrome[ICD10: G83.4] Diagnosis: Weakness[ICD10: R53.1] Mary Aburto MD, [facility] CPT-4: 87350 03/30/2017 ([id number]) 69477 EST. PATIENT, LEVEL III Diagnosis: Cough[ICD10: R05] Diagnosis: Enterocolitis due to Clostridium difficile[ICD10: A04.7] Kavya Aburto MD, [facility] CPT-4: 16327 10/07/2016 ([id number]) 34279 EST. 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 CPT-4: 44851 07/01/2016 86010 EST. PATIENT, LEVEL III Diagnosis: Cauda equina syndrome[ICD10: G83.4] Diagnosis: Irritable bowel syndrome with diarrhea[ICD10: K58.0] [facility] 10068 05/05/2016 31721 EST. PATIENT, LEVEL III Diagnosis: Pain in right shoulder[ICD10: M25.511] Diagnosis: Weakness[ICD10: R53.1] Diagnosis: Shortness of breath[ICD10: R06.02] Mary Aburto MD [facility] CPT-4: 99370 02/23/2016 75579 EST. PATIENT, LEVEL III Diagnosis: Essential (primary) hypertension[ICD10: I10] Diagnosis: Other insomnia[ICD10: G47.09] Diagnosis: Irritable bowel syndrome with diarrhea[ICD10: K58.0] Diagnosis: Shortness of breath[ICD10: R06.02] Diagnosis: Weakness[ICD10: R53.1] Mary Aburto MD, [facility] CPT-4: 37201 09/16/2015 73664 EST. PATIENT, LEVEL III Diagnosis: Diarrhea, unspecified[ICD10: R19.7] Diagnosis: Nausea[ICD10: R11.0] Mary Aburto MD, [facility] CPT-4: 42539 07/24/2015 45132 EST. PATIENT, LEVEL IV Diagnosis: Other iron deficiency anemias[ICD10: D50.8] Diagnosis: Rash and other nonspecific skin eruption[ICD10: R21] Diagnosis: Cauda equina syndrome[ICD10: G83.4] Diagnosis: Essential (primary) hypertension[ICD10: I10] Diagnosis: Other pruritus[ICD10: L29.8] Diagnosis: Shortness of breath[ICD10: R06.02] Mary Aburto MD, [facility] CPT-4: 92739 03/20/2015 68309 EST. PATIENT, LEVEL IV Diagnosis: Urinary tract infection, site not specified[ICD10: N39.0] Diagnosis: Umbilical hernia without obstruction or gangrene[ICD10: K42.9] Diagnosis: Cauda equina syndrome[ICD10: G83.4] Mary Aburto MD, [facility] CPT- 4: 35402 01/13/2015 ([id number]) 06473 EST. PATIENT, LEVEL IV Diagnosis: Iron deficiency anemia, unspecified[ICD10: D50.9] Diagnosis: Essential (primary) hypertension[ICD10: I10] Diagnosis: Hematuria, unspecified[ICD10: R31.9] Kavya Aburto MD, [facility] CPT-4: 32251 12/05/2014 ([id number]) 03223 EST. PATIENT, LEVEL IV Diagnosis: ESSENTIAL HYPERTENSION[ICD9: 401.9] Diagnosis: COPD (chronic obstructive pulmonary disease)[ICD9: 496] Diagnosis: ANEMIA[ICD9: 285.9] Diagnosis: SHORTNESS OF BREATH[ICD9: 786.05] Kavya Aburto MD, [facility] CPT- 4: 03235 10/03/2014 ([id number]) 83125 EST. PATIENT, LEVEL IV Diagnosis: ESSENTIAL HYPERTENSION[ICD9: 401.9] Diagnosis: ANEMIA[ICD9: 285.9] Diagnosis: MALAISE AND FATIGUE[ICD9: 780.79] Darleen Aburto MD, [facility] CPT- 4: 16835 09/15/2014 ([id number]) 34226 EST. PATIENT, LEVEL III Diagnosis: UTI[ICD9: 599.0] Diagnosis: Chronic back pain[ICD9: 724.5] Kavya Aburto MD, [facility] CPT-4: 95876 09/05/2014 ([id number]) OFFICE VISIT, NEW - LEVEL 4 Diagnosis: ESSENTIAL HYPERTENSION[ICD9: 401.9] Diagnosis: THRUSH[ICD9: 112.0] Diagnosis: Hyperlipidemia[ICD9: 272.4] Diagnosis: COPD (chronic obstructive pulmonary disease)[ICD9: 496] Diagnosis: Cauda equina syndrome[ICD9: 344.60] Diagnosis: History of prostate cancer[ICD9: V10.46] Kavya Aburto MD, [facility] CPT-4: 08849 07/04/2014 Plan of Care Planned Activity Notes Codes Status Date Appointment: Lab Draw 12/14/2017 Patient Education: Patient Medication Summary Completed 12/14/2017 Appointment: Darleen Aburto WPtel: [address] [place], [place] [id number] (15 min) Moderate 11/28/2017 Visit Plan: Hypertension [...] report. 11/14/2017 App[facility]ment[facility] [phone] [facility] [place] (15 min) Moderate 11/14/2017 Patient [...] this patient. 08/15/2017 Appointment: Mary Alan WPtel: [facility] (30 min) Complex 08/15/2017 Patient Education: Patient Medication Summary Completed 08/15/2017 Appointment: Mary Alan WPtel: [facility] (15 min) Moderate 08/08/2017 Appointment: Mary Alan WPtel: [address] [place], [place] [address] (15 min) Moderate 08/03/2017 Visit Plan: [...] pain symptoms. 06/29/2017 Appointment: Mary Alan WPtel: [address] [place] [address] (15 min) Moderate 06/29/2017 Patient Education: Patient [...] not improve. 03/30/2017 Appointment: [facility] Alan [facility] (30 min) Complex 03/30/2017 Patient Education: Patient Medication Summary Completed 03/30/2017 Visit Plan: Cough-suspect virus-patient to monitor over the weekend-call Monday if symptoms persist and we will do a chest xray and sputum culture Cdiff-treat with flagyl as directed-call if symptoms do not resolve 10/07/2016 Appointment: K[facility] Subramanian [facility] [phone] [phone] (30 min) Complex 10/07/2016 Patient Education: Patient Medication Summary Completed 10/07/2016 Patient Education: Obesity Completed 10/07/2016 Visit Plan: Cauda equina-chronic back pain-generalized weakness- bilateral shoulder pain/weakness-OA knees-patient to contact [facility] for mobility paperwork-will ask PT to do [...] weakness- right shoulder pain/weakness-patient to contact [facility] for mobility paperwork-will ask PT to do a mobility exam through [facility] Drug induced constipation-rx for movantik. 07/01/2016 Appointment: Kavya Subramanian WPtel: [phone] (30 min) Complex 07/01/2016 Patient Education: Patient Medication Summary Completed 07/01/2016 Patient Education: Patient Medication Summary Completed 06/03/2016 Visit Plan: Cauda Equina Syndrome/diarrhea - Pt is to have abdominal surgery next week - Dr. Criselda in to assess pt - Pt cleared for surgery - pt is to notify clinic with any questions or concerns. Pt is to follow up after his surgery. 05/05/2016 Appointment: Mary Alan [facility]el[facility] [phone] [facility] [facility]ance 05/05/2016 Patient Education: Patient [...] Juan godoy. 02/23/2016 Appointment: Mary Alan WPtel: [facility] (30 min) Complex 02/23/2016 Patient Education: Patient Medication Summary Completed 02/23/2016 Appointment: Mary Alan WPtel: [facility] (30 min) Complex 02/19/2016 Appointment: Darleen Aburto WPtel: [facility] (15 min) Moderate 10/14/2015 Appointment: Lab [...] having loose bowel movements. Keep appointment with Mining Teacher Make an appointment with shop repairer - to follow up on shortness of breath. Weakness - pt is to contact Juan Godoy in [facility] and Call clinic when he is [...] not improved. 07/24/2015 Appointment: Kavya Subramanian WPtel: [address] [place], [place] [phone] (30 min) Complex 07/24/2015 Patient Education: Patient [...] and hypertension. 09/15/2014 Appointment: Darleen Aburto WPtel: [address] [place], [place] [phone] (15 min) Moderate 09/15/2014 Patient Education: Patient [...] incontinence of bowels-recommend follow up with medical staff specialist-will discuss repeat MRI with Dr Aburto-keep [...] Education: Hypertension Completed 07/04/2014 Instructions Comment . Cauda Equina, weakness, gait instability - [...] as directed-[facility] [place] [facility] for [facility] . Cauda equina-chronic back pain-generalized weakness-bilateral shoulder pain/weakness- OA knees-patient to contact [facility] for mobility paperwork-will ask PT to [...] details. Drug induced constipation-rx for movantik. . Hypertension [...] acute changes. Anemia-check stools for blood . Cauda Equina Syndrome/diarrhea - Pt is [...] tolerated. Call if symptoms not improved. . Iron deficiency anemia-check labs-continue oral iron [...] Peng 4. Make an appointment with your shop repairer - to follow up on shortness of breath. 5. Call us when you here about the mobility paperwork and we will fill out the paperwork. Juan Godoy in [facility] . Hypertension - The patient has [...] having loose bowel movements. Keep appointment with Mining Teacher Make an appointment with shop repairer - to follow up on shortness of breath. Weakness - pt is to contact Juan Godoy in [facility] and Call clinic when he is ready to fill out paperwork. . Hypertension - well controlled - continue [...] care - waiting on culture report. . Right shoulder pain - pt states [...] will have pt contact Juan godoy. . Pt complains of abdominal pain, [...] pain. Will check UA, CBC, CMP. . Hypertension - well controlled - continue [...] assure normal liver response to medications. . Urinary Tract Infection-discussed natural and expected [...] of bowels- recommend follow up with medical staff specialist-will discuss repeat MRI with Dr Aburto-keep follow up appointment with Dr Aburto in 10 days Decrease effexor to 2 pills daily x 3 days, then 1 pill daily x 1 week and start Cymbalta daily x 1 week, then stop Effexor and increase Cymbalta to 2 pills daily. Will consult Tiffany Bullard [place] PT. Cauda Equina - stable - continue [...] Use tylenol for break through pain symptoms. [employer] [place] to do PT evaluation for motorized wheelchair through [facility] . Cauda equina-chronic back pain-generalized weakness-right shoulder pain/weakness- patient to contact [facility] for mobility paperwork-will ask PT to do a mobility exam through [facility] Drug induced constipation-rx for movantik. . Rash - pt states that he [...]
--- OUTSIDE RECORDS SUMMARY | 2018-07-19 09:48 | XMS REPORT | CCD ---
Author Author Kavya Subramanian Organization [facility] Address [address] [place] [address] Phone Care Team Providers Care Insights Strategist Name Role Phone PP Unavailable CCM Unavailable Summary Purpose Interface Exchange Insurance Providers Payer name Policy type / Coverage type Covered constitution party ID Effective Begin Date Effective End Date WPS Medicare Part B Commercial Insurance [id number] Unknown Unknown HEALTH[employer]ICE Commercial Insurance [id number] Unknown Unknown Family history Father Diagnosis Age At Onset Coronary Artery Disease Unknown Mother Diagnosis Age At Onset Arthritis Unknown Sister Diagnosis Age At Onset Alzheimer's Disease Unknown Social History Social History Element Codes Description Effective Dates Marital status Unknown 07/04/2014 Number of children Unknown 2 07/04/2014 Living arrangements Unknown House 07/04/[address]: 0960619 Quit over 10 years ago 07/04/2014 Alcohol history Unknown occasionally drinks alcohol 07/04/2014 Frequency of drinks SNOMED CT: 439334470 Drinks rarely 07/04/2014 Allergies, Adverse Reactions, Alerts Substance Reaction Codes Entered Date Inactivated Date Status * NO KNOWN FOOD ALLERGIES Unknown 07/04/2014 No Inactive Date Active Iodine rash, pruritis, RxNorm: 5933 03/04/2015 No Inactive Date Active tramadol pruritis RxNorm: 50897 07/04/2014 No Inactive Date Active Past Medical [...] Fill Instructions oxycodone 5 mg tablet RxNorm: 6750074 4 Tablet(s) PO daily 01/18/2018 04/02/2018 Active Augmentin 500 mg-125 mg tablet RxNorm: 084403 1 Tablet(s) PO TID 12/14/2017 12/23/2017 Inactive take probiotic bid x 10 days pantoprazole 40 mg tablet,delayed release RxNorm: 887603 TAKE 1 TABLET BY MOUTH DAILY 12/11/2017 12/05/2018 Active Augmentin 500 mg-125 mg tablet RxNorm: 503721 1 Tablet(s) PO TID 11/17/2017 11/22/2017 Inactive take probiotic bid x 7 days lisinopril 40 mg tablet RxNorm: 685604 TAKE 1 TABLET BY MOUTH DAILY 11/06/2017 08/02/2018 Active oxycodone 5 mg tablet RxNorm: 1145039 4 Tablet(s) PO daily 10/16/2017 12/29/2017 Inactive Cymbalta 30 mg capsule,delayed release RxNorm: 036057 2 Capsule(s) PO daily 08/17/2017 02/12/2018 Active Zoloft 25 mg tablet RxNorm: 727115 1 TABLET(S) PO DAILY X 5 DAYS THEN INCREASE TO 50MG DAILY 08/16/2017 No Stop Date Active Cymbalta 30 mg capsule,delayed release RxNorm: 029072 1 Capsule(s) PO 1 CAPSULE(S) PO DAILY X 1 WEEK, THEN INCREASE TO 2 DAILY 08/15/2017 08/16/2017 Inactive Patient requests 90 days supply diclofenac sodium 75 mg tablet,delayed release RxNorm: 916720 1 TABLET(S) PO BID 08/14/2017 05/10/2018 Active oxycodone 5 mg tablet RxNorm: 6049094 4 Tablet(s) PO daily 08/01/2017 10/14/2017 Inactive valacyclovir 1 gram tablet RxNorm: 399180 1 Tablet(s) PO TID 07/12/2017 07/11/2017 Inactive Zoloft 50 mg tablet RxNorm: 936013 1 Tablet(s) PO daily 07/12/2017 08/01/2017 Inactive valacyclovir 1 gram tablet RxNorm: 723653 1 Tablet(s) PO TID 07/12/2017 07/18/2017 Inactive Zoloft 50 mg tablet RxNorm: 120231 1 Tablet(s) PO daily 07/12/2017 07/11/2017 Inactive Zoloft 25 mg tablet RxNorm: 229274 1 Tablet(s) PO daily x 5 days then increase to 50mg daily 07/11/2017 07/11/2017 Inactive Cymbalta 30 mg capsule,delayed release RxNorm: 580032 1 Capsule(s) PO daily x 1 week, then increase to 2 daily 06/30/2017 06/29/2017 Inactive Cymbalta 30 mg capsule,delayed release RxNorm: 038649 1 CAPSULE(S) PO DAILY X 1 WEEK, THEN INCREASE TO 2 DAILY 06/30/2017 07/04/2017 Inactive Patient requests 90 days supply Augmentin 875 mg-125 mg tablet RxNorm: 045060 1 Tablet(s) PO BID 05/22/2017 05/28/2017 Inactive Probiotic QID while on antibiotics Bactrim DS 800 mg-160 mg tablet RxNorm: 761531 1 Tablet(s) PO BID 05/22/2017 05/21/2017 Inactive Probiotic QID while on antibiotics Bactrim DS 800 mg-160 mg tablet RxNorm: 110081 1 Tablet(s) PO BID 05/22/2017 05/28/2017 Inactive Probiotic QID while on antibiotics Augmentin 875 mg-125 mg tablet RxNorm: 098004 1 Tablet(s) PO BID 05/22/2017 05/21/2017 Inactive Probiotic QID while on antibiotics Cipro 500 mg tablet RxNorm: 904120 1 Tablet(s) PO BID 04/21/2017 04/30/2017 Inactive Take probiotic while on ABT Cipro 500 mg tablet RxNorm: 068184 1 Tablet(s) PO BID 04/21/2017 04/20/2017 Inactive Diflucan 150 mg tablet RxNorm: 968646 1 Tablet(s) PO daily 04/19/2017 11/13/2017 Inactive Diflucan 150 mg tablet RxNorm: 062742 1 Tablet(s) PO daily 04/19/2017 04/18/2017 Inactive oxycodone 5 mg tablet RxNorm: 3998796 4 Tablet(s) PO daily 04/17/2017 06/30/2017 Inactive gabapentin 600 mg tablet RxNorm: 528963 TABLET(S) TAKE 1 TABLET BY MOUTH TWICE DAILY 04/14/2017 04/08/2018 Active Rocephin 1 gram solution for injection RxNorm: 560690 1 Inj daily 04/05/2017 04/11/2017 Inactive Rocephin 1 gram solution for injection RxNorm: 461198 1 Inj daily 04/04/2017 04/04/2017 Inactive lidocaine (PF) 10 mg/mL (1 %) injection solution RxNorm: 9242547 1 Milliliter(s) Inj daily 04/04/2017 04/10/2017 Inactive Use to administer rocephin lidocaine (PF) 10 mg/mL (1 %) injection solution RxNorm: 5793992 1 Milliliter(s) Inj daily 04/04/2017 04/03/2017 Inactive Use to administer rocephin Rocephin 1 gram solution for injection RxNorm: 620552 1 Inj daily 04/04/2017 04/03/2017 Inactive Augmentin 500 mg-125 mg tablet RxNorm: 275470 1 Tablet(s) PO TID 03/31/2017 04/03/2017 Inactive Augmentin 500 mg-125 mg tablet RxNorm: 652617 1 Tablet(s) PO TID 03/31/2017 03/30/2017 Inactive Effexor XR 75 mg capsule,extended release RxNorm: 025445 TAKE 3 CAPSULES BY MOUTH EVERY MORNING 03/24/2017 11/13/2017 Inactive potassium chloride ER 20 mEq tablet,extended release RxNorm: 980587 1 TABLET(S) PO DAILY 03/13/2017 03/07/2018 Active lisinopril 40 mg tablet RxNorm: 555818 TAKE 1 TABLET BY MOUTH DAILY 02/06/2017 11/02/2017 Inactive pantoprazole 40 mg tablet,delayed release RxNorm: 705463 TAKE 1 TABLET BY MOUTH DAILY 12/19/2016 12/10/2017 Inactive oxycodone 5 mg tablet RxNorm: 8717266 4 Tablet(s) PO daily 12/19/2016 03/03/2017 Inactive diclofenac sodium 75 mg tablet,delayed release RxNorm: 791959 1 TABLET(S) PO BID 11/17/2016 08/13/2017 Inactive gabapentin 600 mg tablet RxNorm: 933200 TABLET(S) TAKE 1 TABLET BY MOUTH TWICE DAILY 10/14/2016 04/11/2017 Inactive Flagyl 500 mg tablet RxNorm: 984301 1 Tablet(s) PO TID 10/07/2016 10/16/2016 Inactive oxycodone 5 mg tablet RxNorm: 4532828 4 Tablet(s) PO daily 10/03/2016 12/16/2016 Inactive Effexor XR 75 mg capsule,extended release RxNorm: 324090 TAKE 3 CAPSULES BY MOUTH EVERY MORNING 09/22/2016 11/20/2016 Inactive Patient requests 90 days supply lisinopril 40 mg tablet RxNorm: 740939 TAKE 1 TABLET BY MOUTH DAILY 08/01/2016 01/27/2017 Inactive Effexor XR 75 mg capsule,extended release RxNorm: 351903 TAKE 3 CAPSULES BY MOUTH EVERY MORNING 07/21/2016 09/21/2016 Inactive oxycodone 5 mg tablet RxNorm: 6273553 4 Tablet(s) PO daily 07/11/2016 09/23/2016 Inactive Movantik 25 mg tablet RxNorm: 9259160 1 Tablet(s) PO daily 07/01/2016 11/13/2017 Inactive potassium chloride ER 20 mEq tablet,extended release RxNorm: 672222 1 TABLET(S) PO DAILY 06/14/2016 03/10/2017 Inactive Flagyl 500 mg tablet RxNorm: 553715 1 Tablet(s) PO TID 06/03/2016 06/12/2016 Inactive Flagyl 500 mg tablet RxNorm: 063202 1 Tablet(s) PO TID 06/03/2016 06/02/2016 Inactive oxycodone 5 mg tablet RxNorm: 7425586 4 Tablet(s) PO daily 04/27/2016 07/10/2016 Inactive Tamiflu 75 mg capsule RxNorm: 397587 1 Capsule(s) PO daily 04/19/2016 04/28/2016 Inactive Tamiflu 75 mg capsule RxNorm: 216823 1 Capsule(s) PO daily 04/19/2016 04/18/2016 Inactive Effexor XR 75 mg capsule,extended release RxNorm: 711108 TAKE 3 CAPSULES BY MOUTH EVERY MORNING 02/18/2016 04/17/2016 Inactive diclofenac sodium 75 mg tablet,delayed release RxNorm: 033296 1 TABLET(S) PO BID 02/18/2016 11/13/2016 Inactive Effexor XR 75 mg capsule,extended release RxNorm: 652793 Capsule(s) TAKE 3 CAPSULES BY MOUTH EVERY MORNING 02/17/2016 08/14/2016 Inactive oxycodone 5 mg tablet RxNorm: 4158323 4 Tablet(s) PO daily 02/04/2016 04/26/2016 Inactive clopidogrel 75 mg tablet RxNorm: 330282 1 TABLET(S) PO QAM 02/01/2016 01/25/2017 Inactive gabapentin 600 mg tablet RxNorm: 930594 Tablet(s) TAKE 1 TABLET BY MOUTH TWICE DAILY 02/01/2016 10/13/2016 Inactive Effexor XR 75 mg capsule,extended release RxNorm: 580834 TAKE 3 CAPSULES BY MOUTH EVERY MORNING 01/11/2016 02/09/2016 Inactive pantoprazole 40 mg tablet,delayed release RxNorm: 634632 TAKE 1 TABLET BY MOUTH DAILY 12/22/2015 12/15/2016 Inactive Effexor XR 75 mg capsule,extended release RxNorm: 791498 TAKE 3 CAPSULES BY MOUTH EVERY MORNING 11/16/2015 01/14/2016 Inactive lisinopril 40 mg tablet RxNorm: 088628 TAKE 1 TABLET BY MOUTH DAILY 11/05/2015 07/31/2016 Inactive Effexor XR 75 mg capsule,extended release RxNorm: 011515 TAKE 3 CAPSULES BY MOUTH EVERY MORNING 09/22/2015 11/20/2015 Inactive Augmentin 500 mg-125 mg tablet RxNorm: 075653 1 Tablet(s) PO TID 09/18/2015 09/24/2015 Inactive Anoro Ellipta 62.5 mcg-25 mcg/actuation powder for inhalation RxNorm: 7333178 1 INH daily 08/20/2015 02/15/2016 Inactive Anoro Ellipta 62.5 mcg-25 mcg/actuation powder for inhalation RxNorm: 1584542 1 INH DAILY 08/20/2015 11/13/2017 Inactive lisinopril 40 mg tablet RxNorm: 034974 TAKE 1 TABLET BY MOUTH DAILY 08/10/2015 11/04/2015 Inactive gabapentin 600 mg tablet RxNorm: 693049 TAKE 1 TABLET BY MOUTH TWICE DAILY 08/10/2015 01/31/2016 Inactive terazosin 2 mg capsule RxNorm: 555605 TAKE ONE CAPSULE BY MOUTH EVERY DAY 07/27/2015 08/29/2016 Inactive hyoscyamine 0.125 mg sublingual tablet RxNorm: 6453969 1 Tablet(s) SL TID as needed 07/24/2015 08/02/2015 Inactive metronidazole 500 mg tablet RxNorm: 785674 1 Tablet(s) PO TID 07/24/2015 07/30/2015 Inactive Effexor XR 75 mg capsule,extended release RxNorm: 398180 TAKE 3 CAPSULES BY MOUTH EVERY MORNING 07/23/2015 09/20/2015 Inactive oxycodone 5 mg tablet RxNorm: 4990373 4 Tablet(s) PO daily 06/26/2015 02/03/2016 Inactive potassium chloride ER 20 mEq tablet,extended release RxNorm: 225872 1 Tablet(s) PO daily 06/25/2015 06/13/2016 Inactive oxycodone 5 mg tablet RxNorm: 5400835 4 Tablet(s) PO daily 04/17/2015 06/25/2015 Inactive rx written Anoro Ellipta 62.5 mcg-25 mcg/actuation powder for inhalation RxNorm: 3218255 1 INH daily 04/17/2015 08/19/2015 Inactive potassium chloride ER 20 mEq tablet,extended release RxNorm: 186529 1 Tablet(s) PO daily 03/23/2015 06/24/2015 Inactive triamcinolone acetonide 0.1 % topical cream RxNorm: 5300209 1 Application TOP BID 03/20/2015 No Stop Date Active carvedilol 12.5 mg tablet RxNorm: 353047 1 TABLET(S) PO BID 02/23/2015 08/21/2015 Inactive diclofenac sodium 75 mg tablet,delayed release RxNorm: 439106 1 Tablet(s) PO BID 02/18/2015 02/12/2016 Inactive carvedilol 12.5 mg tablet RxNorm: 808291 1 Tablet(s) PO BID 02/17/2015 02/11/2016 Inactive furosemide 40 mg tablet RxNorm: 195325 1 Tablet(s) PO daily 02/17/2015 02/11/2016 Inactive lisinopril 40 mg tablet RxNorm: 469330 TAKE 1 TABLET BY MOUTH DAILY 02/16/2015 08/09/2015 Inactive ceftriaxone 1 gram solution for injection RxNorm: 5959162 1 Gram(s) Inj daily mix with lidocaine 01/14/2015 01/17/2015 Inactive please supply 4 bottles of 1gram rocephin IM with 1 bottle of lidocaine 1% for home health to administer to pt starting 01/15 ceftriaxone 1 gram solution for injection RxNorm: 9576343 1 Gram(s) Inj daily 01/14/2015 01/13/2015 Inactive please supply 4 bottles of 1gram rocephin IM with 1 bottle of lidocaine 1% for home health to administer to pt starting 01/15 Augmentin 500 mg-125 mg tablet RxNorm: 932147 1 Tablet(s) PO BID 01/13/2015 01/22/2015 Inactive Keflex 500 mg capsule RxNorm: 731681 1 Capsule(s) PO TID 12/12/2014 12/11/2014 Inactive Keflex 500 mg capsule RxNorm: 196094 1 Capsule(s) PO TID 12/12/2014 12/17/2014 Inactive Augmentin 500 mg-125 mg tablet RxNorm: 589298 1 Tablet(s) PO BID 11/28/2014 12/02/2014 Inactive Augmentin 500 mg-125 mg tablet RxNorm: 178664 1 Tablet(s) PO BID 11/28/2014 11/27/2014 Inactive Cipro 500 mg tablet RxNorm: 648224 1 Tablet(s) PO BID 11/24/2014 11/27/2014 Inactive gabapentin 600 mg tablet RxNorm: 465536 1 Tablet(s) PO BID 11/17/2014 08/13/2015 Inactive gabapentin 600 mg tablet RxNorm: 769852 1 Tablet(s) PO BID 11/17/2014 11/16/2014 Inactive oxycodone 5 mg tablet RxNorm: 3429545 4 Tablet(s) PO daily 11/07/2014 02/04/2015 Inactive rx written Effexor XR 75 mg capsule,extended release RxNorm: 052525 3 Capsule(s) 225 PO QAM 11/05/2014 03/04/2015 Inactive clopidogrel 75 mg tablet RxNorm: 097407 1 Tablet(s) PO QAM 11/05/2014 01/28/2016 Inactive Effexor XR 75 mg capsule,extended release RxNorm: 119790 3 Capsule(s) 225 PO QAM 11/03/2014 11/04/2014 Inactive carvedilol 12.5 mg tablet RxNorm: 416631 1 Tablet(s) PO BID 10/28/2014 02/16/2015 Inactive Effexor XR 75 mg capsule,extended release RxNorm: 341755 3 Capsule(s) 225 PO QAM 10/28/2014 11/02/2014 Inactive Effexor XR 75 mg capsule,extended release RxNorm: 354239 3 Capsule(s) 225 PO QAM 10/28/2014 10/27/2014 Inactive carvedilol 12.5 mg tablet RxNorm: 498594 1 Tablet(s) PO BID 10/28/2014 10/27/2014 Inactive ceftriaxone 1 gram solution for injection RxNorm: 8891723 Inj 09/05/2014 09/05/2014 Inactive Cipro 500 mg tablet RxNorm: 060653 1 Tablet(s) PO BID 09/04/2014 09/03/2014 Inactive Cipro 500 mg tablet RxNorm: 354496 1 Tablet(s) PO BID 09/04/2014 09/10/2014 Inactive oxycodone 5 mg tablet RxNorm: 7094679 4 Tablet(s) PO daily 08/20/2014 11/06/2014 Inactive rx written lisinopril 40 mg tablet RxNorm: 388154 TAKE 1 TABLET BY MOUTH DAILY 08/18/2014 02/13/2015 Inactive nystatin 100,000 unit/mL oral suspension RxNorm: 725680 5 Milliliter(s) PO QID 07/04/2014 07/13/2014 Inactive [SAVINGS FOR NON-COVERED DRUGS -- [id number], PCN: [id number], Group: [id number], ID# [id number], Questions: . THIS IS NOT INSURANCE.] WelChol 3.75 gram oral powder packet RxNorm: 273640 1 PO BID No Start Date Active amlodipine 10 mg tablet RxNorm: 813947 1 Tablet(s) PO QAM No Start Date Active One A Day oral RxNorm: 64414 oral No Start Date Active Vitamin D2 400 unit capsule RxNorm: 067116 1 Capsule(s) PO daily No Start Date Active aspirin 81 mg tablet,delayed release RxNorm: 123382 1 Tablet(s) PO daily No Start Date Active melatonin 5 mg disintegrating tablet RxNorm: 5263776 1 Tablet(s) PO QHS No Start Date Active Miralax 17 gram/dose oral powder RxNorm: 134621 17 Gram(s) PO daily in prune juice No Start Date Active clonidine HCl 0.1 mg tablet RxNorm: 483242 1 Tablet(s) PO QHS No Start Date Active hydrochlorothiazide oral RxNorm: 5487 oral No Start Date Active Lasix oral RxNorm: 815599 oral No Start Date 02/17/2015 Inactive potassium chloride 20 meq RxNorm: 172736 PO daily No Start Date 03/22/2015 Inactive Zoloft 25 mg tablet RxNorm: 541091 1 Tablet(s) PO daily x 5 days then increase to 50mg daily No Start Date 07/10/2017 Inactive oxycodone 5 mg tablet RxNorm: 4906782 3-4 Tablet(s) PO QHS No Start Date 08/19/2014 Inactive terazosin 2 mg capsule RxNorm: 679373 1 Capsule(s) PO daily No Start Date 07/26/2015 Inactive Effexor XR 75 mg capsule,extended release RxNorm: 970531 3 Capsule(s) 225 PO QAM No Start Date 10/27/2014 Inactive gabapentin 600 mg tablet RxNorm: 497002 1 Tablet(s) PO BID No Start Date 11/16/2014 Inactive pantoprazole 40 mg tablet,delayed release RxNorm: 076389 oral No Start Date 12/21/2015 Inactive Anoro Ellipta 62.5 mcg-25 mcg/actuation powder for inhalation RxNorm: 9906401 1 INH daily No Start Date 04/16/2015 Inactive diclofenac sodium 75 mg tablet,delayed release RxNorm: 433530 1 Tablet(s) PO BID No Start Date 02/17/2015 Inactive clopidogrel 75 mg tablet RxNorm: 040656 1 Tablet(s) PO QAM No Start Date 11/04/2014 Inactive lisinopril 40 mg tablet RxNorm: 496475 1 Tablet(s) PO daily No Start Date 08/17/2014 Inactive carvedilol 12.5 mg tablet RxNorm: 852587 1 Tablet(s) PO BID No Start Date 10/27/2014 Inactive Medication Administered Medication Codes Instructions Start Date Status ceftriaxone 1 gram solution for injection RxNorm: 6610877 09/05/2014 No longer Active Immunizations Vaccine Codes [...] (3rd IS) 3.24 uIU/mL 11/14/2017 Comp Metabolic Oop223 NA 137 mEq/L 11/14/2017 Comp Metabolic Dfs833 K 4.0 mEq/L 11/14/2017 Comp Metabolic Jbk785 CL 104 mEq/L 11/14/2017 Comp Metabolic Bxo956 CO2 23.0 mEq/L 11/14/2017 Comp Metabolic Ehj909 ANION GAP 14 11/14/2017 Comp Metabolic Srl098 GLUCOSE 101 mg/dL 11/14/2017 Comp Metabolic Xba253 Creat 1.1 mg/dL 11/14/2017 Comp Metabolic Ixw111 eGFR 67 ml/min/1.73m2 11/14/2017 Comp Metabolic Gzh447 BUN 18 mg/dL 11/14/2017 Comp Metabolic Cfi448 B/C Ratio 15.9 Ratio 11/14/2017 Comp Metabolic Tug133 CALCIUM 9.0 mg/dL 11/14/2017 Comp Metabolic Rnl580 ALK PHOS 81 U/L 11/14/2017 Comp Metabolic Msc380 AST(SGOT) 19 U/L 11/14/2017 Comp Metabolic Lob403 ALT(SGPT) 18 U/L 11/14/2017 Comp Metabolic Guu677 BILI T 0.3 mg/dL 11/14/2017 Comp Metabolic Zhs226 ALBUMIN 3.8 g/dL 11/14/2017 Comp Metabolic Wha131 TPRO 7.3 g/dL 11/14/2017 Comp Metabolic Ovq958 GLOB 3.5 g/dL 11/14/2017 Comp Metabolic Hgy758 A/G Ratio 1.1 Ratio 11/14/2017 Comp Metabolic Rjy092 Osmo 276 mOsmo 11/14/2017 Cbc With Differential [...] 29.9 pg 11/14/2017 Cbc With Differential Ord2 [place]% 11.2 % 11/14/2017 Cbc With Differential Ord2 [...] 1.85 K/ul 11/14/2017 Cbc With Differential Ord2 [place] ABS# 1.0 K/ul 11/14/2017 Cbc With Differential Ord2 Eos ABS# 0.6 K/ul 11/14/2017 Cbc With Differential Ord2 Baso ABS# 0.0 K/ul 11/14/2017 Culture Urine [id number] URINE CULTURE SEE NOTES 05/22/2017 Culture Urine [id number] Continued Results 05/22/2017 Urine Culture Ucult Complete >100,000 col/ml aerobic growth sent to ref lab 05/16/2017 Culture Urine [id number] URINE CULTURE SEE NOTES 04/21/2017 Urine Culture [...] 95.9 fl 03/30/2017 Cbc With Differential Ord2 [place]% 13.0 % 03/30/2017 Cbc With Differential Ord2 MCH 30.9 pg 03/30/2017 Cbc With Differential Ord2 Eos% 7.4 % 03/30/2017 Cbc With Differential Ord2 MCHC 32.2 pg 03/30/2017 Cbc With Differential Ord2 Baso% 0.3 % 03/30/2017 Cbc With Differential Ord2 PLT 370 K/ul 03/30/2017 Cbc With Differential Ord2 Neut ABS# 3.86 K/ul 03/30/2017 Cbc With Differential Ord2 RDW 15.9 % 03/30/2017 Cbc With Differential Ord2 Lymph ABS# 1.69 K/ul 03/30/2017 Cbc With Differential Ord2 [place] ABS# 0.9 K/ul 03/30/2017 Cbc With Differential Ord2 Eos ABS# 0.5 K/ul 03/30/2017 Cbc With Differential Ord2 Baso ABS# 0.0 K/ul 03/30/2017 %Hba1C Ysf834 % HbA1c 92124- 6 5.8 % 03/30/2017 %Hba1C Vsi123 Gluc Ave 120 mg/dL 03/30/2017 Comp Metabolic Awv047 NA 140 mEq/L 03/30/2017 Comp Metabolic Cti775 K 4.0 mEq/L 03/30/2017 Comp Metabolic Fjf602 CL 105 mEq/L 03/30/2017 Comp Metabolic Hdi916 CO2 25.0 mEq/L 03/30/2017 Comp Metabolic Aeq016 ANION GAP 14 03/30/2017 Comp Metabolic Hsd843 GLUCOSE 108 mg/dL 03/30/2017 Comp Metabolic Liv172 Creat 1.2 mg/dL 03/30/2017 Comp Metabolic Lto990 eGFR 63 ml/min/1.73m2 03/30/2017 Comp Metabolic Bnw719 BUN 20 mg/dL 03/30/2017 Comp Metabolic Dyb421 B/C Ratio 16.9 Ratio 03/30/2017 Comp Metabolic Kti940 CALCIUM 9.2 mg/dL 03/30/2017 Comp Metabolic Asp242 ALK PHOS 83 U/L 03/30/2017 Comp Metabolic Qol016 AST(SGOT) 17 U/L 03/30/2017 Comp Metabolic Tcz644 ALT(SGPT) 19 U/L 03/30/2017 Comp Metabolic Qvr251 BILI T 0.3 mg/dL 03/30/2017 Comp Metabolic Siq354 ALBUMIN 3.9 g/dL 03/30/2017 Comp Metabolic Wgs835 TPRO 7.2 g/dL 03/30/2017 Comp Metabolic Eif274 GLOB 3.3 g/dL 03/30/2017 Comp Metabolic Dkv625 A/G Ratio 1.2 Ratio 03/30/2017 Comp Metabolic Jdb717 Osmo 283 mOsmo 03/30/2017 Tsh Ord6 TSH (3rd IS) 1.40 uIU/mL 03/30/2017 Clostridium Diff Tox A/B Poj345 Cdiff Positive 06/03/2016 Total Psa PSA 1.53 [...] 99.1 fl 03/20/2015 Cbc With Differential Ord2 [place]% 12.8 % 03/20/2015 Cbc With Differential Ord2 [...] 1.69 K/ul 03/20/2015 Cbc With Differential Ord2 [place] ABS# 0.8 K/ul 03/20/2015 Cbc With Differential Ord2 Eos ABS# 0.6 K/ul 03/20/2015 Cbc With Differential Ord2 Baso ABS# 0.0 K/ul 03/20/2015 Cbc With Differential Ord2 New Analyzer Notice Please note new ref ranges starting 03-04-2015 due to implemntation of new five part differential hematolgy analyzer. 03/20/2015 Comp Metabolic Uqu217 NA 138 mEq/L 02/26/2015 Comp Metabolic Bjk786 K 4.0 mEq/L 02/26/2015 Comp Metabolic Six848 CL 103 mEq/L 02/26/2015 Comp Metabolic Rdi462 CO2 28.0 mEq/L 02/26/2015 Comp Metabolic Qzd919 ANION GAP 11 02/26/2015 Comp Metabolic Csy262 GLUCOSE 95 mg/dL 02/26/2015 Comp Metabolic Zar455 Creat 1.0 mg/dL 02/26/2015 Comp Metabolic Ruf678 eGFR 74 ml/min/1.73m2 02/26/2015 Comp Metabolic Aoo955 BUN 19 mg/dL 02/26/2015 Comp Metabolic Dbt727 B/C Ratio 18.3 Ratio 02/26/2015 Comp Metabolic Zgv551 CALCIUM 9.1 mg/dL 02/26/2015 Comp Metabolic Rpz189 ALK PHOS 87 U/L 02/26/2015 Comp Metabolic Gao836 AST(SGOT) 22 U/L 02/26/2015 Comp Metabolic Yov686 ALT(SGPT) 24 U/L 02/26/2015 Comp Metabolic Fid431 BILI T 0.4 mg/dL 02/26/2015 Comp Metabolic Njr703 ALBUMIN 4.0 g/dL 02/26/2015 Comp Metabolic Zsz948 TPRO 7.4 g/dL 02/26/2015 Comp Metabolic Lyo271 GLOB 3.4 g/dL 02/26/2015 Comp Metabolic Yxa824 A/G Ratio 1.2 Ratio 02/26/2015 Comp Metabolic Wyf210 Osmo 278 mOsmo 02/26/2015 Total Psa Ord10 PSA 2.25 ng/mL 02/26/2015 Culture Urine [id number] URINE CULTURE SEE NOTES 12/15/2014 Culture Urine [id number] Continued Results 12/15/2014 Urine Culture Ucult Complete >100,000 col/ml aerobic growth sent to ref lab 12/12/2014 Comp Metabolic Bgz714 NA 136 mEq/L 12/05/2014 Comp Metabolic Bdq233 K 4.3 mEq/L 12/05/2014 Comp Metabolic Qwv922 CL 104 mEq/L 12/05/2014 Comp Metabolic Oli696 CO2 29.0 mEq/L 12/05/2014 Comp Metabolic Ukc699 ANION GAP 7 12/05/2014 Comp Metabolic Acp097 GLUCOSE 80 mg/dL 12/05/2014 Comp Metabolic Qon072 Creat 1.1 mg/dL 12/05/2014 Comp Metabolic Cwq804 eGFR 68 ml/min/1.73m2 12/05/2014 Comp Metabolic Cpm589 BUN 21 mg/dL 12/05/2014 Comp Metabolic Dee946 B/C Ratio 18.8 Ratio 12/05/2014 Comp Metabolic Xcd857 CALCIUM 9.3 mg/dL 12/05/2014 Comp Metabolic Vna548 ALK PHOS 81 U/L 12/05/2014 Comp Metabolic Zrh971 AST(SGOT) 17 U/L 12/05/2014 Comp Metabolic Ack697 ALT(SGPT) 16 U/L 12/05/2014 Comp Metabolic Yvu067 BILI T 0.3 mg/dL 12/05/2014 Comp Metabolic Tze438 ALBUMIN 4.0 g/dL 12/05/2014 Comp Metabolic Qwh095 TPRO 6.9 g/dL 12/05/2014 Comp Metabolic Uzn083 GLOB 2.9 g/dL 12/05/2014 Comp Metabolic Mcb760 A/G Ratio 1.4 Ratio 12/05/2014 Comp Metabolic Ujq811 Osmo 274 mOsmo 12/05/2014 Cbc With Differential [...] Ord2 RDW 15.0 % 12/05/2014 Culture Urine [id number] URINE CULTURE SEE NOTES 11/27/2014 Culture Urine [id number] Continued Results 11/27/2014 Urine Culture Ucult Complete Growth of aerobe sent to ref lab 11/25/2014 B Type Natriuretic Peptide Yil0801 B-CONTROL SPECIALIST 121.00 pg/ml 10/08/2014 Cbc With Differential [...] Folate Ord36 Folate 22.12 ng/mL 10/08/2014 B12 Krq307 B12 >1500.00 pg/ml 10/08/2014 Comp Metabolic Ade789 NA 135 mEq/L 10/08/2014 Comp Metabolic Khs243 K 4.5 mEq/L 10/08/2014 Comp Metabolic Rel262 CL 104 mEq/L 10/08/2014 Comp Metabolic Hyz493 CO2 25.0 mEq/L 10/08/2014 Comp Metabolic Wpn539 ANION GAP 11 10/08/2014 Comp Metabolic Luv167 GLUCOSE 73 mg/dL 10/08/2014 Comp Metabolic Jkl777 Creat 1.1 mg/dL 10/08/2014 Comp Metabolic Mes757 eGFR 71 ml/min/1.73m2 10/08/2014 Comp Metabolic Lip073 BUN 21 mg/dL 10/08/2014 Comp Metabolic Ton946 B/C Ratio 19.4 Ratio 10/08/2014 Comp Metabolic Xmh862 CALCIUM 9.0 mg/dL 10/08/2014 Comp Metabolic Nvv411 ALK PHOS 73 U/L 10/08/2014 Comp Metabolic Lyq121 AST(SGOT) 15 U/L 10/08/2014 Comp Metabolic Gpm937 ALT(SGPT) 14 U/L 10/08/2014 Comp Metabolic Zve317 BILI T 0.4 mg/dL 10/08/2014 Comp Metabolic Vci265 ALBUMIN 4.2 g/dL 10/08/2014 Comp Metabolic Mza548 TPRO 7.1 g/dL 10/08/2014 Comp Metabolic Sct813 GLOB 2.9 g/dL 10/08/2014 Comp Metabolic Uow772 A/G Ratio 1.4 Ratio 10/08/2014 Comp Metabolic Bta997 Osmo 272 mOsmo 10/08/2014 B12 Jym472 B12 554.00 pg/ml 09/16/2014 Tibc Ord40 Iron 108 ug/dl 09/16/2014 Tibc Ord40 UIBC 281 ug/dL 09/16/2014 Tibc Ord40 TIBC 389 ug/dL 09/16/2014 Tibc Ord40 Fe-%Sat 27.8 % 09/16/2014 Folate Ord36 Folate >23.20 ng/mL 09/16/2014 Comp Metabolic Dko921 NA 134 mEq/L 09/16/2014 Comp Metabolic Nch141 K 4.6 mEq/L 09/16/2014 Comp Metabolic Ozb633 CL 103 mEq/L 09/16/2014 Comp Metabolic Dlt754 CO2 25.0 mEq/L 09/16/2014 Comp Metabolic Xri908 ANION GAP 11 09/16/2014 Comp Metabolic Wnz401 GLUCOSE 93 mg/dL 09/16/2014 Comp Metabolic Kzm693 Creat 1.2 mg/dL 09/16/2014 Comp Metabolic Lrz995 eGFR 65 ml/min/1.73m2 09/16/2014 Comp Metabolic Fwn965 BUN 23 mg/dL 09/16/2014 Comp Metabolic Ujj282 B/C Ratio 19.8 Ratio 09/16/2014 Comp Metabolic Jut518 CALCIUM 9.1 mg/dL 09/16/2014 Comp Metabolic Mmz940 ALK PHOS 73 U/L 09/16/2014 Comp Metabolic Agh548 AST(SGOT) 18 U/L 09/16/2014 Comp Metabolic Bod122 ALT(SGPT) 16 U/L 09/16/2014 Comp Metabolic Ofo490 BILI T 0.4 mg/dL 09/16/2014 Comp Metabolic Ilo012 ALBUMIN 4.0 g/dL 09/16/2014 Comp Metabolic Iru978 TPRO 7.1 g/dL 09/16/2014 Comp Metabolic Wgc989 GLOB 3.1 g/dL 09/16/2014 Comp Metabolic Aon062 A/G Ratio 1.3 Ratio 09/16/2014 Comp Metabolic Psp919 Osmo 272 mOsmo 09/16/2014 Cbc With Differential [...] Ord22 FERRITIN 36.2 ng/mL 09/16/2014 Culture Urine [id number] URINE CULTURE SEE NOTES 09/08/2014 Urine Culture [...] Ord2 RDW 17.8 % 09/05/2014 Comp Metabolic Nww537 NA 133 mEq/L 09/05/2014 Comp Metabolic Uvo464 K 4.9 mEq/L 09/05/2014 Comp Metabolic Wdi554 CL 99 mEq/L 09/05/2014 Comp Metabolic Ety548 CO2 26.0 mEq/L 09/05/2014 Comp Metabolic Vgo498 ANION GAP 13 09/05/2014 Comp Metabolic Rin427 GLUCOSE 83 mg/dL 09/05/2014 Comp Metabolic Zcz287 Creat 1.5 mg/dL 09/05/2014 Comp Metabolic Chq986 eGFR 47 ml/min/1.73m2 09/05/2014 Comp Metabolic Bou940 BUN 28 mg/dL 09/05/2014 Comp Metabolic Xyd752 B/C Ratio 18.3 Ratio 09/05/2014 Comp Metabolic Emm848 CALCIUM 8.9 mg/dL 09/05/2014 Comp Metabolic Mfm480 ALK PHOS 71 U/L 09/05/2014 Comp Metabolic Rgi555 AST(SGOT) 18 U/L 09/05/2014 Comp Metabolic Ufu020 ALT(SGPT) 29 U/L 09/05/2014 Comp Metabolic Bhr034 BILI T 0.6 mg/dL 09/05/2014 Comp Metabolic Krt054 ALBUMIN 3.8 g/dL 09/05/2014 Comp Metabolic Hmj344 TPRO 6.7 g/dL 09/05/2014 Comp Metabolic Iab844 GLOB 2.9 g/dL 09/05/2014 Comp Metabolic Xmh682 A/G Ratio 1.3 Ratio 09/05/2014 Comp Metabolic Hlz732 Osmo 271 mOsmo 09/05/2014 Total Psa Ord10 [...] Codes Date URINALYSIS NONAUTO W/O SCOPE CPT-4: 82085 12/14/2017 URINALYSIS NONAUTO W/O SCOPE CPT-4: 80048 05/15/2017 URINALYSIS NONAUTO W/O SCOPE CPT-4: 39300 09/18/2015 ADMIN INFLUENZA VIRUS VAC CPT-4: G0008 12/31/2014 FLU VACC PRSV FREE INC ANTIG Formatting Model/CDA Sections, Assigned to/[place] [employer] CPT-4: 57020Rvnqjoj 12/31/2014 URINALYSIS NONAUTO W/O SCOPE CPT-4: 88478 12/10/2014 URINALYSIS NONAUTO W/O SCOPE CPT-4: 06103 11/24/2014 ROCEPHIN, PER 250 MG CPT- 4: J0696 09/05/2014 THER/PROPH/DIAG INJ SC/IM CPT-4: 10015 09/05/2014 URINALYSIS NONAUTO W/O SCOPE CPT-4: 80227 09/04/2014 Vital Signs Date Vital 11/14/2017 Blood [...] 1: 138/60 Code: 8480-6 BMI: 37.2 Code: 38552-9 Heart Rate 1: 79 bpm Height: 5'9" SpO2: 91% Weight: 252 lbs 07/01/2016 Blood Pressure 1: 138/68 Code: 8480-6 BMI: 37.2 Code: 90699-4 Heart Rate 1: 69 bpm Height: 5'9" SpO2: 93% Weight: 252 lbs 05/05/2016 Blood Pressure 1: 136/78 Code: 8480-6 BMI: 39.3 Code: 73399-9 Heart Rate 1: 72 bpm Height: 5'9" SpO2: 97% Weight: 266 lbs 02/23/2016 Blood Pressure 1: 145/70 Code: 8480-6 BMI: 37.5 Code: 16296-0 Heart Rate 1: 80 bpm Height: 5'9" Weight: 254 lbs 09/16/2015 Blood Pressure 1: 140/62 Code: 8480-6 Heart Rate 1: 77 bpm Height: 5'9" SpO2: 93% Weight: 07/24/2015 Blood Pressure 1: 152/68 Code: 8480-6 BMI: 37.7 Code: 29012-7 Heart Rate 1: 73 bpm Height: 5'9" SpO2: 97% Weight: 255 lbs 03/20/2015 Blood Pressure 1: 146/74 Code: 8480-6 BMI: 38.1 Code: 00858-2 Heart Rate 1: 63 bpm Height: 5'9" Weight: 258 lbs 01/13/2015 Blood Pressure 1: 120/58 Code: 8480-6 Heart Rate 1: 52 bpm Height: 5'9" SpO2: 97% Temperature: 37.1 (C) / 98.7 (F) Weight: 12/05/2014 Blood Pressure 1: 134/54 Code: 8480-6 BMI: 36.3 Code: 45794-6 Heart Rate 1: 76 bpm Height: 5'9" SpO2: 93% Weight: 246 lbs 10/03/2014 Blood Pressure 1: 132/60 Code: 8480-6 Heart Rate 1: 76 bpm Height: SpO2: 95% Weight: 254 lbs 09/15/2014 Blood Pressure 1: 120/68 Code: 8480-6 BMI: 37.5 Code: 28792-5 Heart Rate 1: 76 bpm Height: 5'9" SpO2: 93% Weight: 254 lbs 09/05/2014 Blood Pressure 1: 110/50 Code: 8480-6 BMI: 37.4 Code: 87917-6 Heart Rate 1: 79 bpm Height: 5'9" SpO2: 96% Temperature: 36.3 (C) / 97.4 (F) Weight: 253 lbs 07/04/2014 Blood Pressure 1: 138/72 Code: 8480-6 BMI: 37.1 Code: 06999-2 Heart Rate 1: 72 bpm Height: 5'9" [...] discomfort 12/05/2014 occasional ache in chest- seeing member of parliament in [place]- doing heart cath in October [...] discomfort 10/03/2014 occasional ache in chest- seeing member of parliament in [place]- doing heart cath in October [...] data Encounters Encounter Performer Location Codes Date 90896 EST. PATIENT, LEVEL IV Diagnosis: Essential (primary) hypertension[ICD10: I10] Diagnosis: Other iron deficiency anemias[ICD10: D50.8] Diagnosis: Weakness[ICD10: R53.1] [facility] CPT-4: 17325 11/14/2017 03933 EST. PATIENT, LEVEL IV Diagnosis: Other lesions of oral mucosa[ICD10: K13.79] Diagnosis: Candidal stomatitis[ICD10: B37.0] Diagnosis: Generalized anxiety disorder[ICD10: F41.1] Diagnosis: Major depressive disorder, single episode, moderate[ICD10: F32.1] Mary Aburto MD, [facility] CPT-4: 71293 08/15/2017 80255 EST. PATIENT, LEVEL III Diagnosis: Generalized anxiety disorder[ICD10: F41.1] Diagnosis: Cauda equina syndrome[ICD10: G83.4] Diagnosis: Major depressive disorder, single episode, moderate[ICD10: F32.1] Mary Aburto MD, [facility] CPT-4: 07780 06/29/2017 81849 EST. PATIENT, LEVEL IV Diagnosis: Dysuria[ICD10: R30.0] Diagnosis: Other malaise[ICD10: R53.81] Diagnosis: Cauda equina syndrome[ICD10: G83.4] Diagnosis: Weakness[ICD10: R53.1] Mary Aburto MD, [facility] CPT-4: 07607 03/30/2017 ([id number]) 66152 EST. PATIENT, LEVEL III Diagnosis: Cough[ICD10: R05] Diagnosis: Enterocolitis due to Clostridium difficile[ICD10: A04.7] Kavya Aburto MD, [facility] CPT-4: 29662 10/07/2016 ([id number]) 27287 EST. 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 PATIENT, LEVEL III Diagnosis: Cauda equina syndrome[ICD10: G83.4] Diagnosis: Irritable bowel syndrome with diarrhea[ICD10: K58.0] Mary Aburto MD, [facility] CPT-4: 69949 05/05/2016 41492 EST. PATIENT, LEVEL III Diagnosis: Pain in right shoulder[ICD10: M25.511] Diagnosis: Weakness[ICD10: R53.1] Diagnosis: Shortness of breath[ICD10: R06.02] Mary Aburto MD, [facility] CPT-4: 44692 02/23/2016 53393 EST. PATIENT, LEVEL III Diagnosis: Essential (primary) hypertension[ICD10: I10] Diagnosis: Other insomnia[ICD10: G47.09] Diagnosis: Irritable bowel syndrome with diarrhea[ICD10: K58.0] Diagnosis: Shortness of breath[ICD10: R06.02] Diagnosis: Weakness[ICD10: R53.1] Mary Aburto MD, [facility] CPT-4: 64210 09/16/2015 34345 EST. PATIENT, LEVEL III Diagnosis: Diarrhea, unspecified[ICD10: R19.7] Diagnosis: Nausea[ICD10: R11.0] Mary Aburto MD, [facility] CPT-4: 50638 07/24/2015 65223 EST. PATIENT, LEVEL IV Diagnosis: Other iron deficiency anemias[ICD10: D50.8] Diagnosis: Rash and other nonspecific skin eruption[ICD10: R21] Diagnosis: Cauda equina syndrome[ICD10: G83.4] Diagnosis: Essential (primary) hypertension[ICD10: I10] Diagnosis: Other pruritus[ICD10: L29.8] Diagnosis: Shortness of breath[ICD10: R06.02] Mary Aburto MD, [facility] CPT-4: 92885 03/20/2015 08625 EST. PATIENT, LEVEL IV Diagnosis: Urinary tract infection, site not specified[ICD10: N39.0] Diagnosis: Umbilical hernia without obstruction or gangrene[ICD10: K42.9] Diagnosis: Cauda equina syndrome[ICD10: G83.4] Mary Aburto MD, [facility] CPT- 4: 67702 01/13/2015 ([id number]) 76686 EST. PATIENT, LEVEL IV Diagnosis: Iron deficiency anemia, unspecified[ICD10: D50.9] Diagnosis: Essential (primary) hypertension[ICD10: I10] Diagnosis: Hematuria, unspecified[ICD10: R31.9] Kavya Aburto MD, [facility] CPT-4: 25308 12/05/2014 ([id number]) 18420 EST. PATIENT, LEVEL IV Diagnosis: ESSENTIAL HYPERTENSION[ICD9: 401.9] Diagnosis: COPD (chronic obstructive pulmonary disease)[ICD9: 496] Diagnosis: ANEMIA[ICD9: 285.9] Diagnosis: SHORTNESS OF BREATH[ICD9: 786.05] Kavya Aburto MD, [facility] CPT- 4: 37374 10/03/2014 [id number]) 75562 EST. PATIENT, LEVEL IV Diagnosis: ESSENTIAL HYPERTENSION[ICD9: 401.9] Diagnosis: ANEMIA[ICD9: 285.9] Diagnosis: MALAISE AND FATIGUE[ICD9: 780.79] Darleen Aburto MD, [facility] CPT- 4: 60451 09/15/2014 [id number]) 64777 EST. PATIENT, LEVEL III Diagnosis: UTI[ICD9: 599.0] Diagnosis: Chronic back pain[ICD9: 724.5] Kavya Aburto MD, [facility] CPT-4: 69316 09/05/2014 ([id number]) OFFICE VISIT, NEW - LEVEL 4 Diagnosis: ESSENTIAL HYPERTENSION[ICD9: 401.9] Diagnosis: THRUSH[ICD9: 112.0] Diagnosis: Hyperlipidemia[ICD9: 272.4] Diagnosis: COPD (chronic obstructive pulmonary disease)[ICD9: 496] Diagnosis: Cauda equina syndrome[ICD9: 344.60] Diagnosis: History of prostate cancer[ICD9: V10.46] Kavya Aburto MD, [facility] CPT-4: 33151 07/04/2014 Plan of Care Planned Activity Notes Codes Status Date Appointment: Lab Draw 12/14/2017 Patient Education: Patient Medication Summary Completed 12/14/2017 Appointment: Darleen Aburto WPtel: [address] [place], [place] [phone] (15 min) Moderate 11/28/2017 Visit Plan: Hypertension [...] waiting on culture report. 11/14/2017 Appointment: [facility]el[phone] [facility] [place] (15 min) Moderate 11/14/2017 Patient Education: [...] patient. 08/15/2017 Appointment: [facility] [phone] [phone] [place] (30 min) Complex 08/15/2017 Patient Education: Patient Medication Summary Completed 08/15/2017 Appointment: Mary Alan WPtel: [facility]5 [facility] (15 min) Moderate 08/08/2017 Appointment: Mary Alan WPtel: [address] [place], [place] [phone] (15 min) Moderate 08/03/2017 Visit Plan: Cauda [...] pain symptoms. 06/29/2017 Appointment: Mary Alan WPtel: [address] [place], [place] [phone] (15 min) Moderate 06/29/2017 Patient Education: Patient [...] not improve. 03/30/2017 Appointment: Mary Alan WPtel: [address] [place] [address] (30 min) Complex 03/30/2017 Patient Education: Patient Medication Summary Completed 03/30/2017 Visit Plan: Cough-suspect virus-patient to monitor over the weekend-call Monday if symptoms persist and we will do a chest xray and sputum culture Cdiff-treat with flagyl as directed-call if symptoms do not resolve 10/07/2016 Appointment: Kavya Subramanian WPtel: [phone] [phone] (30 min) Complex 10/07/2016 Patient Education: Patient Medication Summary Completed 10/07/2016 Patient Education: Obesity Completed 10/07/2016 Visit Plan: Cauda equina-chronic back pain-generalized weakness- right shoulder pain/weakness-patient to contact juan rogers for mobility paperwork-will ask PT to do a mobility exam through [facility] Drug induced constipation-rx for [employer]. 07/01/2016 Visit Plan: Cauda equina-chronic back pain-generalized weakness- bilateral shoulder pain/weakness-OA knees-patient to contact juan rogers for mobility paperwork-will ask PT to do a mobility exam through [facility]. Patient is non ambulatory due [...] [employer]. 07/01/2016 Appointment: [facility]ramanian [facility]el[facility] [phone] [phone] [place] (30 min) Complex 07/01/2016 [...] surgery. 05/05/2016 Appointment: [facility]el[facility] [phone] [phone] [facility]ance 05/05/2016 Patient Education: [...] Juan godoy. 02/23/2016 Appointment: Mary Alan WPtel: [phone] (30 min) Complex 02/23/2016 Patient Education: Patient Medication Summary Completed 02/23/2016 Appointment: Mary Alan WPtel: [phone] (30 min) Complex 02/19/2016 Appointment: Darleen Aburto WPtel: [phone] (15 min) Moderate 10/14/2015 Appointment: Lab Draw [...] having loose bowel movements. Keep appointment with [employer] Make an appointment with member of parliament - to follow up on shortness of [...] not improved. 07/24/2015 Appointment: Kavya Subramanian WPtel: [address] [place], [place] [phone] (30 min) Complex 07/24/2015 Patient Education: Patient [...] and hypertension. 09/15/2014 Appointment: Darleen Aburto WPtel: [facility] (15 min) Moderate 09/15/2014 Patient Education: Patient [...] equina-increased incontinence of bowels-recommend follow up with mapping specialist-will discuss repeat MRI with Dr Aburto-keep [...] Education: Hypertension Completed 07/04/2014 Instructions Comment [employer] [place] to do PT evaluation for motorized wheelchair through [employer] . Cauda equina-chronic back pain-generalized weakness-right shoulder pain/weakness- patient to contact [employer] for mobility paperwork-will ask PT to do a mobility exam through [employer] Drug induced constipation-rx for [employer]. [employer] [place] to do PT evaluation for motorized wheelchair through [facility] . Cauda equina-chronic back pain-generalized weakness-bilateral shoulder pain/weakness- OA knees-patient to contact [employer] for mobility paperwork-will ask PT to do a mobility exam through [employer]. Patient is non ambulatory due to cauda [...] incontinence of bowels- recommend follow up with mapping specialist-will discuss repeat MRI with Dr Aburto-keep [...] as tolerated. Call if symptoms not improved. RECOMMEND CHEST XRAY AND SPUTUM CUTURE IF [...] - will have pt contact [facility]. . Cauda Equina, weakness, gait instability - [...] Peng 4. Make an appointment with your member of parliament - to follow up on shortness of breath. 5. Call us when you here about the mobility paperwork and we will fill out the paperwork. Juan Yonny Fercho in [facility] . Hypertension - The [...] having loose bowel movements. Keep appointment with [employer] Make an appointment with member of parliament - to follow up on shortness of [...] 2 pills daily. Will consult Tiffany Bullard Prentice PT. Cauda Equina - stable - continue [...]
--- OUTSIDE RECORDS SUMMARY | 2018-07-19 09:50 | XMS REPORT | CCD ---
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 Name Role Phone PP Unavailable CCM Unavailable Summary Purpose Interface Exchange Insurance Providers Payer name Policy type / Coverage type Covered democrat ID Effective Begin Date Effective End Date WPS Medicare Part B Commercial Insurance [id number] Unknown Unknown [employer]ICE Commercial Insurance [id number] Unknown Unknown Family history Father Diagnosis Age At Onset Coronary Artery Disease Unknown Mother Diagnosis Age At Onset Arthritis Unknown Sister Diagnosis Age At Onset Alzheimer's Disease Unknown Social History Social History Element Codes Description Effective Dates Marital status Unknown 07/04/2014 Number of children Unknown 2 07/04/2014 Living arrangements Unknown House 07/04/[address]: 2188419 Quit over 10 years ago 07/04/2014 Alcohol history Unknown occasionally drinks alcohol 07/04/2014 Frequency of drinks SNOMED CT: 877804467 Drinks rarely 07/04/2014 Allergies, Adverse Reactions, Alerts Substance Reaction Codes Entered Date Inactivated Date Status Iodine rash, pruritis RxNorm: 5933 03/04/2015 No Inactive Date Active tramadol pruritis RxNorm: 30024 07/04/2014 No Inactive Date Active Past Medical [...] Effexor XR 75 mg capsule,extended release RxNorm: 379813 TAKE 3 CAPSULES BY MOUTH EVERY MORNING 03/24/2017 07/21/2017 Active potassium chloride ER 20 mEq tablet,extended release RxNorm: 579598 1 TABLET(S) PO DAILY 03/13/2017 03/07/2018 Active lisinopril 40 mg tablet RxNorm: 415971 TAKE 1 TABLET BY MOUTH DAILY 02/06/2017 11/02/2017 Active pantoprazole 40 mg tablet,delayed release RxNorm: 531416 TAKE 1 TABLET BY MOUTH DAILY 12/19/2016 12/13/2017 Active oxycodone 5 mg tablet RxNorm: 3833255 4 Tablet(s) PO daily 12/19/2016 03/03/2017 Inactive diclofenac sodium 75 mg tablet,delayed release RxNorm: 672568 1 TABLET(S) PO BID 11/17/2016 08/13/2017 Active gabapentin 600 mg tablet RxNorm: 944215 TABLET(S) TAKE 1 TABLET BY MOUTH TWICE DAILY 10/14/2016 04/11/2017 Active Flagyl 500 mg tablet RxNorm: 785906 1 Tablet(s) PO TID 10/07/2016 10/16/2016 Inactive oxycodone 5 mg tablet RxNorm: 8967655 4 Tablet(s) PO daily 10/03/2016 12/16/2016 Inactive Effexor XR 75 mg capsule,extended release RxNorm: 511288 TAKE 3 CAPSULES BY MOUTH EVERY MORNING 09/22/2016 11/20/2016 Inactive Patient requests 90 days supply lisinopril 40 mg tablet RxNorm: 482081 TAKE 1 TABLET BY MOUTH DAILY 08/01/2016 01/27/2017 Inactive Effexor XR 75 mg capsule,extended release RxNorm: 082037 TAKE 3 CAPSULES BY MOUTH EVERY MORNING 07/21/2016 09/21/2016 Inactive oxycodone 5 mg tablet RxNorm: 9829606 4 Tablet(s) PO daily 07/11/2016 09/23/2016 Inactive Movantik 25 mg tablet RxNorm: 1957615 1 Tablet(s) PO daily 07/01/2016 No Stop Date Active potassium chloride ER 20 mEq tablet,extended release RxNorm: 361079 1 TABLET(S) PO DAILY 06/14/2016 03/10/2017 Inactive Flagyl 500 mg tablet RxNorm: 974850 1 Tablet(s) PO TID 06/03/2016 06/12/2016 Inactive Flagyl 500 mg tablet RxNorm: 875387 1 Tablet(s) PO TID 06/03/2016 06/02/2016 Inactive oxycodone 5 mg tablet RxNorm: 1658924 4 Tablet(s) PO daily 04/27/2016 07/10/2016 Inactive Tamiflu 75 mg capsule RxNorm: 234404 1 Capsule(s) PO daily 04/19/2016 04/28/2016 Inactive Tamiflu 75 mg capsule RxNorm: 577516 1 Capsule(s) PO daily 04/19/2016 04/18/2016 Inactive Effexor XR 75 mg capsule,extended release RxNorm: 648076 TAKE 3 CAPSULES BY MOUTH EVERY MORNING 02/18/2016 04/17/2016 Inactive diclofenac sodium 75 mg tablet,delayed release RxNorm: 261370 1 TABLET(S) PO BID 02/18/2016 11/13/2016 Inactive Effexor XR 75 mg capsule,extended release RxNorm: 513798 Capsule(s) TAKE 3 CAPSULES BY MOUTH EVERY MORNING 02/17/2016 08/14/2016 Inactive oxycodone 5 mg tablet RxNorm: 4962944 4 Tablet(s) PO daily 02/04/2016 04/26/2016 Inactive clopidogrel 75 mg tablet RxNorm: 759521 1 TABLET(S) PO QAM 02/01/2016 01/25/2017 Inactive gabapentin 600 mg tablet RxNorm: 568591 Tablet(s) TAKE 1 TABLET BY MOUTH TWICE DAILY 02/01/2016 10/13/2016 Inactive Effexor XR 75 mg capsule,extended release RxNorm: 232376 TAKE 3 CAPSULES BY MOUTH EVERY MORNING 01/11/2016 02/09/2016 Inactive pantoprazole 40 mg tablet,delayed release RxNorm: 574313 TAKE 1 TABLET BY MOUTH DAILY 12/22/2015 12/15/2016 Inactive Effexor XR 75 mg capsule,extended release RxNorm: 957277 TAKE 3 CAPSULES BY MOUTH EVERY MORNING 11/16/2015 01/14/2016 Inactive lisinopril 40 mg tablet RxNorm: 266351 TAKE 1 TABLET BY MOUTH DAILY 11/05/2015 07/31/2016 Inactive Effexor XR 75 mg capsule,extended release RxNorm: 118576 TAKE 3 CAPSULES BY MOUTH EVERY MORNING 09/22/2015 11/20/2015 Inactive Augmentin 500 mg-125 mg tablet RxNorm: 325819 1 Tablet(s) PO TID 09/18/2015 09/24/2015 Inactive Anoro Ellipta 62.5 mcg-25 mcg/actuation powder for inhalation RxNorm: 1406869 1 INH DAILY 08/20/2015 No Stop Date Active Anoro Ellipta 62.5 mcg-25 mcg/actuation powder for inhalation RxNorm: 2803684 1 INH daily 08/20/2015 02/15/2016 Inactive lisinopril 40 mg tablet RxNorm: 463442 TAKE 1 TABLET BY MOUTH DAILY 08/10/2015 11/04/2015 Inactive gabapentin 600 mg tablet RxNorm: 770076 TAKE 1 TABLET BY MOUTH TWICE DAILY 08/10/2015 01/31/2016 Inactive terazosin 2 mg capsule RxNorm: 939013 TAKE ONE CAPSULE BY MOUTH EVERY DAY 07/27/2015 08/29/2016 Inactive hyoscyamine 0.125 mg sublingual tablet RxNorm: 1958548 1 Tablet(s) SL TID as needed 07/24/2015 08/02/2015 Inactive metronidazole 500 mg tablet RxNorm: 308522 1 Tablet(s) PO TID 07/24/2015 07/30/2015 Inactive Effexor XR 75 mg capsule,extended release RxNorm: 391596 TAKE 3 CAPSULES BY MOUTH EVERY MORNING 07/23/2015 09/20/2015 Inactive oxycodone 5 mg tablet RxNorm: 7288080 4 Tablet(s) PO daily 06/26/2015 02/03/2016 Inactive potassium chloride ER 20 mEq tablet,extended release RxNorm: 232230 1 Tablet(s) PO daily 06/25/2015 06/13/2016 Inactive oxycodone 5 mg tablet RxNorm: 9751133 4 Tablet(s) PO daily 04/17/2015 06/25/2015 Inactive rx written Anoro Ellipta 62.5 mcg-25 mcg/actuation powder for inhalation RxNorm: 4757486 1 INH daily 04/17/2015 08/19/2015 Inactive potassium chloride ER 20 mEq tablet,extended release RxNorm: 571832 1 Tablet(s) PO daily 03/23/2015 06/24/2015 Inactive triamcinolone acetonide 0.1 % topical cream RxNorm: 0196092 1 Application TOP BID 03/20/2015 No Stop Date Active carvedilol 12.5 mg tablet RxNorm: 279565 1 TABLET(S) PO BID 02/23/2015 08/21/2015 Inactive diclofenac sodium 75 mg tablet,delayed release RxNorm: 728812 1 Tablet(s) PO BID 02/18/2015 02/12/2016 Inactive carvedilol 12.5 mg tablet RxNorm: 789760 1 Tablet(s) PO BID 02/17/2015 02/11/2016 Inactive furosemide 40 mg tablet RxNorm: 894580 1 Tablet(s) PO daily 02/17/2015 02/11/2016 Inactive lisinopril 40 mg tablet RxNorm: 150941 TAKE 1 TABLET BY MOUTH DAILY 02/16/2015 08/09/2015 Inactive ceftriaxone 1 gram solution for injection RxNorm: 7860981 1 Gram(s) Inj daily mix with lidocaine 01/14/2015 01/17/2015 Inactive please supply 4 bottles of 1gram rocephin IM with 1 bottle of lidocaine 1% for home health to administer to pt starting 01/15 ceftriaxone 1 gram solution for injection RxNorm: 7781323 1 Gram(s) Inj daily 01/14/2015 01/13/2015 Inactive please supply 4 bottles of 1gram rocephin IM with 1 bottle of lidocaine 1% for home health to administer to pt starting 01/15 Augmentin 500 mg-125 mg tablet RxNorm: 943257 1 Tablet(s) PO BID 01/13/2015 01/22/2015 Inactive Keflex 500 mg capsule RxNorm: 173379 1 Capsule(s) PO TID 12/12/2014 12/11/2014 Inactive Keflex 500 mg capsule RxNorm: 671266 1 Capsule(s) PO TID 12/12/2014 12/18/2014 Inactive Augmentin 500 mg-125 mg tablet RxNorm: 476949 1 Tablet(s) PO BID 11/28/2014 12/02/2014 Inactive Augmentin 500 mg-125 mg tablet RxNorm: 486279 1 Tablet(s) PO BID 11/28/2014 11/27/2014 Inactive Cipro 500 mg tablet RxNorm: 922754 1 Tablet(s) PO BID 11/24/2014 11/27/2014 Inactive gabapentin 600 mg tablet RxNorm: 474147 1 Tablet(s) PO BID 11/17/2014 08/13/2015 Inactive gabapentin 600 mg tablet RxNorm: 252185 1 Tablet(s) PO BID 11/17/2014 11/16/2014 Inactive oxycodone 5 mg tablet RxNorm: 6063217 4 Tablet(s) PO daily 11/07/2014 02/04/2015 Inactive rx written Effexor XR 75 mg capsule,extended release RxNorm: 415841 3 Capsule(s) 225 PO QAM 11/05/2014 03/04/2015 Inactive clopidogrel 75 mg tablet RxNorm: 694045 1 Tablet(s) PO QAM 11/05/2014 01/28/2016 Inactive Effexor XR 75 mg capsule,extended release RxNorm: 668122 3 Capsule(s) 225 PO QAM 11/03/2014 11/04/2014 Inactive carvedilol 12.5 mg tablet RxNorm: 936191 1 Tablet(s) PO BID 10/28/2014 02/16/2015 Inactive Effexor XR 75 mg capsule,extended release RxNorm: 266750 3 Capsule(s) 225 PO QAM 10/28/2014 11/02/2014 Inactive Effexor XR 75 mg capsule,extended release RxNorm: 293045 3 Capsule(s) 225 PO QAM 10/28/2014 10/27/2014 Inactive carvedilol 12.5 mg tablet RxNorm: 292222 1 Tablet(s) PO BID 10/28/2014 10/27/2014 Inactive ceftriaxone 1 gram solution for injection RxNorm: 7319504 Inj 09/05/2014 09/05/2014 Inactive Cipro 500 mg tablet RxNorm: 892985 1 Tablet(s) PO BID 09/04/2014 09/03/2014 Inactive Cipro 500 mg tablet RxNorm: 908072 1 Tablet(s) PO BID 09/04/2014 09/10/2014 Inactive oxycodone 5 mg tablet RxNorm: 5705735 4 Tablet(s) PO daily 08/20/2014 11/06/2014 Inactive rx written lisinopril 40 mg tablet RxNorm: 865437 TAKE 1 TABLET BY MOUTH DAILY 08/18/2014 02/13/2015 Inactive nystatin 100,000 unit/mL oral suspension RxNorm: 178173 5 Milliliter(s) PO QID 07/04/2014 07/13/2014 Inactive [SAVINGS FOR NON-COVERED DRUGS -- BIN:[id number], PCN: [id number], Group: [id number], ID# [id number], Questions: . THIS IS NOT INSURANCE.] WelChol 3.75 gram oral powder packet RxNorm: 326728 1 PO BID No Start Date Active amlodipine 10 mg tablet RxNorm: 598570 1 Tablet(s) PO QAM No Start Date Active One A Day oral RxNorm: 73680 oral No Start Date Active Vitamin D2 400 unit capsule RxNorm: 642024 1 Capsule(s) PO daily No Start Date Active aspirin 81 mg tablet,delayed release RxNorm: 723567 1 Tablet(s) PO daily No Start Date Active melatonin 5 mg disintegrating tablet RxNorm: 3423312 1 Tablet(s) PO QHS No Start Date Active clonidine HCl 0.1 mg tablet RxNorm: 719921 1 Tablet(s) PO QHS No Start Date Active hydrochlorothiazide oral RxNorm: 5487 oral No Start Date Active Lasix oral RxNorm: 071913 oral No Start Date 02/17/2015 Inactive potassium chloride 20 meq RxNorm: 286821 PO daily No Start Date 03/22/2015 Inactive oxycodone 5 mg tablet RxNorm: 1080479 3-4 Tablet(s) PO QHS No Start Date 08/19/2014 Inactive terazosin 2 mg capsule RxNorm: 844721 1 Capsule(s) PO daily No Start Date 07/26/2015 Inactive Effexor XR 75 mg capsule,extended release RxNorm: 246366 3 Capsule(s) 225 PO QAM No Start Date 10/27/2014 Inactive gabapentin 600 mg tablet RxNorm: 402213 1 Tablet(s) PO BID No Start Date 11/16/2014 Inactive pantoprazole 40 mg tablet,delayed release RxNorm: 341493 oral No Start Date 12/21/2015 Inactive Anoro Ellipta 62.5 mcg-25 mcg/actuation powder for inhalation RxNorm: 5668293 1 INH daily No Start Date 04/16/2015 Inactive diclofenac sodium 75 mg tablet,delayed release RxNorm: 808672 1 Tablet(s) PO BID No Start Date 02/17/2015 Inactive clopidogrel 75 mg tablet RxNorm: 896449 1 Tablet(s) PO QAM No Start Date 11/04/2014 Inactive lisinopril 40 mg tablet RxNorm: 584740 1 Tablet(s) PO daily No Start Date 08/17/2014 Inactive carvedilol 12.5 mg tablet RxNorm: 431242 1 Tablet(s) PO BID No Start Date 10/27/2014 Inactive Medication Administered Medication Codes Instructions Start Date Status ceftriaxone 1 gram solution for injection RxNorm: 2120252 09/05/2014 No longer Active Immunizations Vaccine Codes Date Status Influenza CVX: 141 12/31/2014 completed Assessments Condition Codes Effective Dates Cough ICD-10: R05 ICD-9: 786.2 10/07/2016 Enterocolitis [...] Reason For Visit Effective Dates Notes cough 10/07/2016 back pain 07/01/2016 pre-op/surgery consult 05/05/2016 shoulder pain 02/23/2016 shortness of breath 09/16/2015 diarrhea 07/24/2015 rash 03/20/2015 sinus congestion 01/13/2015 vaccination against influenza 12/31/2014 hypertension 12/05/2014 hypertension 10/03/2014 hypertension 09/15/2014 urinary frequency 09/05/2014 hypertension 07/04/2014 c/o oral burning ? thrush Results Observation Observation Code Item Item Code Result Date Clostridium Diff Tox A/B Dys569 Cdiff Positive 06/03/2016 Total Psa PSA 1.53 [...] 99.1 fl 03/20/2015 Cbc With Differential Ord2 Alfalfa% 12.8 % 03/20/2015 Cbc With Differential Ord2 [...] 1.69 K/ul 03/20/2015 Cbc With Differential Ord2 Alfalfa ABS# 0.8 K/ul 03/20/2015 Cbc With Differential Ord2 Eos ABS# 0.6 K/ul 03/20/2015 Cbc With Differential Ord2 Baso ABS# 0.0 K/ul 03/20/2015 Cbc With Differential Ord2 New Analyzer Notice Please note new ref ranges starting 03-04-2015 due to implemntation of new five part differential hematolgy analyzer. 03/20/2015 Comp Metabolic Art926 NA 138 mEq/L 02/26/2015 Comp Metabolic Uaa178 K 4.0 mEq/L 02/26/2015 Comp Metabolic Cwi690 CL 103 mEq/L 02/26/2015 Comp Metabolic Rou968 CO2 28.0 mEq/L 02/26/2015 Comp Metabolic Tcz945 ANION GAP 11 02/26/2015 Comp Metabolic Jpp201 GLUCOSE 95 mg/dL 02/26/2015 Comp Metabolic Kai738 Creat 1.0 mg/dL 02/26/2015 Comp Metabolic Hvz864 eGFR 74 ml/min/1.73m2 02/26/2015 Comp Metabolic Rwb051 BUN 19 mg/dL 02/26/2015 Comp Metabolic Ern313 B/C Ratio 18.3 Ratio 02/26/2015 Comp Metabolic Njd963 CALCIUM 9.1 mg/dL 02/26/2015 Comp Metabolic Wzu314 ALK PHOS 87 U/L 02/26/2015 Comp Metabolic Lox516 AST(SGOT) 22 U/L 02/26/2015 Comp Metabolic Jdl677 ALT(SGPT) 24 U/L 02/26/2015 Comp Metabolic Wtc165 BILI T 0.4 mg/dL 02/26/2015 Comp Metabolic Uuc079 ALBUMIN 4.0 g/dL 02/26/2015 Comp Metabolic Rpy694 TPRO 7.4 g/dL 02/26/2015 Comp Metabolic Ysz987 GLOB 3.4 g/dL 02/26/2015 Comp Metabolic Uwc086 A/G Ratio 1.2 Ratio 02/26/2015 Comp Metabolic Fmg247 Osmo 278 mOsmo 02/26/2015 Total Psa Ord10 PSA 2.25 ng/mL 02/26/2015 Culture Urine [id number] URINE CULTURE SEE NOTES 12/15/2014 Culture Urine [id number] Continued Results 12/15/2014 Urine Culture Ucult Complete >100,000 col/ml aerobic growth sent to ref lab 12/12/2014 Comp Metabolic Wak410 NA 136 mEq/L 12/05/2014 Comp Metabolic Fba753 K 4.3 mEq/L 12/05/2014 Comp Metabolic Tye074 CL 104 mEq/L 12/05/2014 Comp Metabolic Uap252 CO2 29.0 mEq/L 12/05/2014 Comp Metabolic Seu817 ANION GAP 7 12/05/2014 Comp Metabolic Tka357 GLUCOSE 80 mg/dL 12/05/2014 Comp Metabolic Jqp287 Creat 1.1 mg/dL 12/05/2014 Comp Metabolic Dhy832 eGFR 68 ml/min/1.73m2 12/05/2014 Comp Metabolic Bbe780 BUN 21 mg/dL 12/05/2014 Comp Metabolic Qdo856 B/C Ratio 18.8 Ratio 12/05/2014 Comp Metabolic Wls548 CALCIUM 9.3 mg/dL 12/05/2014 Comp Metabolic Ult710 ALK PHOS 81 U/L 12/05/2014 Comp Metabolic Jra284 AST(SGOT) 17 U/L 12/05/2014 Comp Metabolic Vva882 ALT(SGPT) 16 U/L 12/05/2014 Comp Metabolic Qgp015 BILI T 0.3 mg/dL 12/05/2014 Comp Metabolic Ioo300 ALBUMIN 4.0 g/dL 12/05/2014 Comp Metabolic Anq150 TPRO 6.9 g/dL 12/05/2014 Comp Metabolic Lly358 GLOB 2.9 g/dL 12/05/2014 Comp Metabolic Tao787 A/G Ratio 1.4 Ratio 12/05/2014 Comp Metabolic Kbj601 Osmo 274 mOsmo 12/05/2014 Cbc With Differential [...] Ord2 RDW 15.0 % 12/05/2014 Culture Urine [id number] URINE CULTURE SEE NOTES 11/27/2014 Culture Urine [id number] Continued Results 11/27/2014 Urine Culture Ucult Complete Growth of aerobe sent to ref lab 11/25/2014 B Type Natriuretic Peptide Zsx5693 B-BEATER DUMPER 121.00 pg/ml 10/08/2014 Cbc With Differential Ord2 [...] Folate Ord36 Folate 22.12 ng/mL 10/08/2014 B12 Faw888 B12 >1500.00 pg/ml 10/08/2014 Comp Metabolic Qim908 NA 135 mEq/L 10/08/2014 Comp Metabolic Mcl950 K 4.5 mEq/L 10/08/2014 Comp Metabolic Rfb195 CL 104 mEq/L 10/08/2014 Comp Metabolic Jgm618 CO2 25.0 mEq/L 10/08/2014 Comp Metabolic Hvb050 ANION GAP 11 10/08/2014 Comp Metabolic Ofg704 GLUCOSE 73 mg/dL 10/08/2014 Comp Metabolic Sjv121 Creat 1.1 mg/dL 10/08/2014 Comp Metabolic Gta269 eGFR 71 ml/min/1.73m2 10/08/2014 Comp Metabolic Gnh263 BUN 21 mg/dL 10/08/2014 Comp Metabolic Rut454 B/C Ratio 19.4 Ratio 10/08/2014 Comp Metabolic Zug549 CALCIUM 9.0 mg/dL 10/08/2014 Comp Metabolic Puy557 ALK PHOS 73 U/L 10/08/2014 Comp Metabolic Vyq180 AST(SGOT) 15 U/L 10/08/2014 Comp Metabolic Qct225 ALT(SGPT) 14 U/L 10/08/2014 Comp Metabolic Wve951 BILI T 0.4 mg/dL 10/08/2014 Comp Metabolic Lit565 ALBUMIN 4.2 g/dL 10/08/2014 Comp Metabolic Zhz926 TPRO 7.1 g/dL 10/08/2014 Comp Metabolic Fcw463 GLOB 2.9 g/dL 10/08/2014 Comp Metabolic Idm023 A/G Ratio 1.4 Ratio 10/08/2014 Comp Metabolic Bci294 Osmo 272 mOsmo 10/08/2014 B12 Igo580 B12 554.00 pg/ml 09/16/2014 Tibc Ord40 Iron 108 ug/dl 09/16/2014 Tibc Ord40 UIBC 281 ug/dL 09/16/2014 Tibc Ord40 TIBC 389 ug/dL 09/16/2014 Tibc Ord40 Fe-%Sat 27.8 % 09/16/2014 Folate Ord36 Folate >23.20 ng/mL 09/16/2014 Comp Metabolic Nxu791 NA 134 mEq/L 09/16/2014 Comp Metabolic Ofp548 K 4.6 mEq/L 09/16/2014 Comp Metabolic Zwd115 CL 103 mEq/L 09/16/2014 Comp Metabolic Ewq569 CO2 25.0 mEq/L 09/16/2014 Comp Metabolic Ywe644 ANION GAP 11 09/16/2014 Comp Metabolic Atq876 GLUCOSE 93 mg/dL 09/16/2014 Comp Metabolic Kax338 Creat 1.2 mg/dL 09/16/2014 Comp Metabolic Xoa315 eGFR 65 ml/min/1.73m2 09/16/2014 Comp Metabolic Gpm067 BUN 23 mg/dL 09/16/2014 Comp Metabolic Ajl303 B/C Ratio 19.8 Ratio 09/16/2014 Comp Metabolic Obx418 CALCIUM 9.1 mg/dL 09/16/2014 Comp Metabolic Kph458 ALK PHOS 73 U/L 09/16/2014 Comp Metabolic Lcz084 AST(SGOT) 18 U/L 09/16/2014 Comp Metabolic Mgy447 ALT(SGPT) 16 U/L 09/16/2014 Comp Metabolic Eoz179 BILI T 0.4 mg/dL 09/16/2014 Comp Metabolic Afn327 ALBUMIN 4.0 g/dL 09/16/2014 Comp Metabolic Nrc081 TPRO 7.1 g/dL 09/16/2014 Comp Metabolic Iww142 GLOB 3.1 g/dL 09/16/2014 Comp Metabolic Sdf358 A/G Ratio 1.3 Ratio 09/16/2014 Comp Metabolic Uzz192 Osmo 272 mOsmo 09/16/2014 Cbc With Differential [...] Ord22 FERRITIN 36.2 ng/mL 09/16/2014 Culture Urine [id number] URINE CULTURE SEE NOTES 09/08/2014 Urine Culture [...] Ord2 RDW 17.8 % 09/05/2014 Comp Metabolic Jxy498 NA 133 mEq/L 09/05/2014 Comp Metabolic Tae330 K 4.9 mEq/L 09/05/2014 Comp Metabolic Hdr682 CL 99 mEq/L 09/05/2014 Comp Metabolic Afk828 CO2 26.0 mEq/L 09/05/2014 Comp Metabolic Twy790 ANION GAP 13 09/05/2014 Comp Metabolic Mdo718 GLUCOSE 83 mg/dL 09/05/2014 Comp Metabolic Cnk772 Creat 1.5 mg/dL 09/05/2014 Comp Metabolic Lgt991 eGFR 47 ml/min/1.73m2 09/05/2014 Comp Metabolic Fhx681 BUN 28 mg/dL 09/05/2014 Comp Metabolic Rps555 B/C Ratio 18.3 Ratio 09/05/2014 Comp Metabolic Afr599 CALCIUM 8.9 mg/dL 09/05/2014 Comp Metabolic Slv108 ALK PHOS 71 U/L 09/05/2014 Comp Metabolic Gtv003 AST(SGOT) 18 U/L 09/05/2014 Comp Metabolic Tkg822 ALT(SGPT) 29 U/L 09/05/2014 Comp Metabolic Pwo957 BILI T 0.6 mg/dL 09/05/2014 Comp Metabolic Opl647 ALBUMIN 3.8 g/dL 09/05/2014 Comp Metabolic Rui344 TPRO 6.7 g/dL 09/05/2014 Comp Metabolic Wda302 GLOB 2.9 g/dL 09/05/2014 Comp Metabolic Tcp658 A/G Ratio 1.3 Ratio 09/05/2014 Comp Metabolic Fyh475 Osmo 271 mOsmo 09/05/2014 Total Psa Ord10 PSA 2.11 ng/mL 08/26/2014 Review of Systems System Result Effective Dates Constitutional No recent illness 10/07/2016 Constitutional No [...] Codes Date URINALYSIS NONAUTO W/O SCOPE CPT-4: 42934 09/18/2015 ADMIN INFLUENZA VIRUS VAC CPT-4: G0008 12/31/2014 FLU VACC PRSV FREE INC ANTIG Formatting Model/CDA Sections, Assigned to/Manolo [place] CPT-4: 76066Slubazl 12/31/2014 URINALYSIS NONAUTO W/O SCOPE CPT-4: 50555 12/10/2014 URINALYSIS NONAUTO W/O SCOPE CPT-4: 73117 11/24/2014 ROCEPHIN, PER 250 MG CPT- 4: J0696 09/05/2014 THER/PROPH/DIAG INJ SC/IM CPT-4: 13192 09/05/2014 URINALYSIS NONAUTO W/O SCOPE CPT-4: 94271 09/04/2014 Vital Signs Date Vital 10/07/2016 Blood Pressure 1: 138/60 Code: 8480-6 BMI: 37.2 Code: 77987-2 Heart Rate 1: 79 bpm Height: 5'9" SpO2: 91% Weight: 252 lbs 07/01/2016 Blood Pressure 1: 138/68 Code: 8480-6 BMI: 37.2 Code: 95432-0 Heart Rate 1: 69 bpm Height: 5'9" SpO2: 93% Weight: 252 lbs 05/05/2016 Blood Pressure 1: 136/78 Code: 8480-6 BMI: 39.3 Code: 99776-8 Heart Rate 1: 72 bpm Height: 5'9" SpO2: 97% Weight: 266 lbs 02/23/2016 Blood Pressure 1: 145/70 Code: 8480-6 BMI: 37.5 Code: 89540-7 Heart Rate 1: 80 bpm Height: 5'9" Weight: 254 lbs 09/16/2015 Blood Pressure 1: 140/62 Code: 8480-6 Heart Rate 1: 77 bpm Height: 5'9" SpO2: 93% Weight: 07/24/2015 Blood Pressure 1: 152/68 Code: 8480-6 BMI: 37.7 Code: 23652-0 Heart Rate 1: 73 bpm Height: 5'9" SpO2: 97% Weight: 255 lbs 03/20/2015 Blood Pressure 1: 146/74 Code: 8480-6 BMI: 38.1 Code: 08428-2 Heart Rate 1: 63 bpm Height: 5'9" Weight: 258 lbs 01/13/2015 Blood Pressure 1: 120/58 Code: 8480-6 Heart Rate 1: 52 bpm Height: 5'9" SpO2: 97% Temperature: 37.1 (C) / 98.7 (F) Weight: 12/05/2014 Blood Pressure 1: 134/54 Code: 8480-6 BMI: 36.3 Code: 08604-3 Heart Rate 1: 76 bpm Height: 5'9" SpO2: 93% Weight: 246 lbs 10/03/2014 Blood Pressure 1: 132/60 Code: 8480-6 Heart Rate 1: 76 bpm Height: SpO2: 95% Weight: 254 lbs 09/15/2014 Blood Pressure 1: 120/68 Code: 8480-6 BMI: 37.5 Code: 30217-0 Heart Rate 1: 76 bpm Height: 5'9" SpO2: 93% Weight: 254 lbs 09/05/2014 Blood Pressure 1: 110/50 Code: 8480-6 BMI: 37.4 Code: 14797-1 Heart Rate 1: 79 bpm Height: 5'9" SpO2: 96% Temperature: 36.3 (C) / 97.4 (F) Weight: 253 lbs 07/04/2014 Blood Pressure 1: 138/72 Code: 8480-6 BMI: 37.1 Code: 61361-4 Heart Rate 1: 72 bpm Height: 5'9" SpO2: 93% Weight: 251 lbs Functional Status No Functional Status data History of Present Illness Symptom Name Status Result Effective Date Notes cough Location in the throat 10/07/2016 None [...] discomfort 12/05/2014 occasional ache in chest- seeing catcher helper in [place]- doing heart cath in October [...] discomfort 10/03/2014 occasional ache in chest- seeing catcher helper in [place]- doing heart cath in October [...] Codes Date EST. PATIENT, LEVEL III Diagnosis: Cough[ICD10: R05] Diagnosis: Enterocolitis due to Clostridium difficile[ICD10: A04.7] Kavya Aburto MD, [facility] CPT-4: 15881 10/07/2016 ([id number]) [id number] EST. 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 PATIENT, LEVEL III Diagnosis: Cauda equina syndrome[ICD10: G83.4] Diagnosis: Irritable bowel syndrome with diarrhea[ICD10: K58.0] Mary Aburto MD, [facility] CPT-4: 90141 05/05/2016 [id number] EST. PATIENT, LEVEL III Diagnosis: Pain in right shoulder[ICD10: M25.511] Diagnosis: Weakness[ICD10: R53.1] Diagnosis: Shortness of breath[ICD10: R06.02] Mary Aburto MD, [facility] CPT-4: 72339 02/23/2016 [id number] EST. PATIENT, LEVEL III Diagnosis: Essential (primary) hypertension[ICD10: I10] Diagnosis: Other insomnia[ICD10: G47.09] Diagnosis: Irritable bowel syndrome with diarrhea[ICD10: K58.0] Diagnosis: Shortness of breath[ICD10: R06.02] Diagnosis: Weakness[ICD10: R53.1] Mary Aburto MD, [facility] CPT-4: 61588 09/16/2015 [id number] EST. PATIENT, LEVEL III Diagnosis: Diarrhea, unspecified[ICD10: R19.7] Diagnosis: Nausea[ICD10: R11.0] Mary Aburto MD, [facility] CPT-4: 60311 07/24/2015 [id number] EST. PATIENT, LEVEL IV Diagnosis: Other iron deficiency anemias[ICD10: D50.8] Diagnosis: Rash and other nonspecific skin eruption[ICD10: R21] Diagnosis: Cauda equina syndrome[ICD10: G83.4] Diagnosis: Essential (primary) hypertension[ICD10: I10] Diagnosis: Other pruritus[ICD10: L29.8] Diagnosis: Shortness of breath[ICD10: R06.02] Mary Aburto MD, [facility] CPT-4: 36190 03/20/2015 [id number] EST. PATIENT, LEVEL IV Diagnosis: Urinary tract infection, site not specified[ICD10: N39.0] Diagnosis: Umbilical hernia without obstruction or gangrene[ICD10: K42.9] Diagnosis: Cauda equina syndrome[ICD10: G83.4] Mary Aburto MD, [facility] CPT- 4: 45108 01/13/2015 ([id number]) [id number] EST. PATIENT, LEVEL IV Diagnosis: Iron deficiency anemia, unspecified[ICD10: D50.9] Diagnosis: Essential (primary) hypertension[ICD10: I10] Diagnosis: Hematuria, unspecified[ICD10: R31.9] Kavya Aburto MD, [facility] CPT-4: 58735 12/05/2014 ([id number]) 23535 EST. PATIENT, LEVEL IV Diagnosis: ESSENTIAL HYPERTENSION[ICD9: 401.9] Diagnosis: COPD (chronic obstructive pulmonary disease)[ICD9: 496] Diagnosis: ANEMIA[ICD9: 285.9] Diagnosis: SHORTNESS OF BREATH[ICD9: 786.05] Kavya Aburto MD, [facility] CPT- 4: 00347 10/03/2014 ([id number]) [id number] EST. PATIENT, LEVEL IV Diagnosis: ESSENTIAL HYPERTENSION[ICD9: 401.9] Diagnosis: ANEMIA[ICD9: 285.9] Diagnosis: MALAISE AND FATIGUE[ICD9: 780.79] [facility] CPT- 4: 89808 09/15/2014 ([id number]) [id number] EST. PATIENT, LEVEL III Diagnosis: UTI[ICD9: 599.0] Diagnosis: Chronic back pain[ICD9: 724.5] [facility] CPT-4: 51328 09/05/2014 ([id number]) OFFICE VISIT, NEW - LEVEL 4 Diagnosis: ESSENTIAL HYPERTENSION[ICD9: 401.9] Diagnosis: THRUSH[ICD9: 112.0] Diagnosis: Hyperlipidemia[ICD9: 272.4] Diagnosis: COPD (chronic obstructive pulmonary disease)[ICD9: 496] Diagnosis: Cauda equina syndrome[ICD9: 344.60] Diagnosis: History of prostate cancer[ICD9: V10.46] [facility] CPT-4: 62528 07/04/2014 Plan of Care Planned Activity Notes Codes Status Date Visit Plan: Cough-suspect virus-patient to monitor over the weekend-call Monday if symptoms persist and we will do a chest xray and sputum culture Cdiff-treat with flagyl as directed-call if symptoms do not resolve 10/07/2016 Appointment: Kavya Subramanian WPtel: [address] [place], [place] [phone] (30 min) [facility] 10/07/2016 Patient Education: Patient Medication Summary Completed 10/07/2016 Patient Education: Obesity Completed 10/07/2016 Visit Plan: Cauda equina-chronic back pain-generalized weakness- bilateral shoulder pain/weakness-OA knees-patient to contact juan blancas for mobility paperwork-will ask PT to do a mobility exam through [facility]. Patient is non ambulatory due to [...] [employer]. 07/01/2016 Appointment: Kavya Subramanian WPtel: [phone] [id number] (30 min) Complex 07/01/2016 Patient Education: Patient [...] his surgery. 05/05/2016 Appointment: Mary Alan WPtel: [id number] Surgical Clearance 05/05/2016 Patient Education: Patient Medication [...] mobility. 02/23/2016 Appointment: Mary Alan WPtel: [phone] [id number] [place] (30 min) Complex 02/23/2016 Patient Education: Patient Medication Summary Completed 02/23/2016 Appointment: Mary Alan WPtel: [phone] [id number] (30 min) Complex 02/19/2016 [facility]ment[phone] [place] (15 min) Moderate 10/14/2015 Appointment: [...] having loose bowel movements. Keep appointment with Gear Hobber Make an appointment with catcher helper - to follow up on shortness of breath. Weakness - pt is to contact Juan Godoy in [facility] and Call clinic when he is [...] not improved. 07/24/2015 Appointment: [phone] [place] (30 min) Complex 07/24/2015 Patient Education: [...] hypertension. 09/15/2014 Appointment: [phone] ([facility] min) Moderate 09/15/2014 Patient Education: [...] equina-increased incontinence of bowels-recommend follow up with prepress specialist-will discuss repeat MRI with Dr Aburto-keep [...] is to follow up after his surgery. 1. check your blood pressures 3 times [...] Peng 4. Make an appointment with your catcher helper - to follow up on shortness of breath. 5. Call us when you here about the mobility paperwork and we will fill out the paperwork[facility] . Hypertension - The patient has [...] having loose bowel movements. Keep appointment with Gear Hobber Make an appointment with catcher helper - to follow up on shortness of breath. Weakness - [facility] and Call clinic when he is [...] to assure normal liver response to medications. [employer] [place] to do PT evaluation for motorized wheelchair through [facility] . Cauda equina-chronic back pain-generalized weakness-bilateral shoulder pain/weakness- OA knees-patient to contact [facility] for mobility paperwork-will ask PT to do a mobility exam through [facility]. Patient is non ambulatory due to [...] details. Drug induced constipation-rx for [employer]. [employer] [place] to do PT evaluation for motorized wheelchair through [facility] . Cauda equina-chronic back pain-generalized weakness-right shoulder pain/weakness- patient to contact [facility] for mobility paperwork-will ask PT to do a mobility exam through [facility] Drug induced constipation-rx for [employer]. . [...] pain. Will check UA, CBC, CMP. . Rash - pt states that he [...] incontinence of bowels- recommend follow up with prepress specialist-will discuss repeat MRI with Dr Aburto-keep follow up appointment with Dr Aburto in 10 days
--- OUTSIDE RECORDS SUMMARY | 2018-07-19 09:53 | XMS REPORT | CCD ---
Author Author Kavya Subramanian Organization Darleen Aburto MD, [facility] Address [address] [place] [address] Phone Care Team Providers Care Systems Accountant Name Role Phone PP Unavailable CCM Unavailable Summary Purpose Interface Exchange Insurance Providers Payer name Policy type / Coverage type Covered democrat ID Effective Begin Date Effective End Date WPS Medicare Part B Commercial Insurance [id number] Unknown Unknown HEALTH[employer]ICE Commercial Insurance [id number] Unknown Unknown Family history Father Diagnosis Age At Onset Coronary Artery Disease Unknown Mother Diagnosis Age At Onset Arthritis Unknown Sister Diagnosis Age At Onset Alzheimer's Disease Unknown Social History Social History Element Codes Description Effective Dates Marital status Unknown 07/04/2014 Number of children Unknown 2 07/04/2014 Living arrangements Unknown House 07/04/[address]: 2933050 Quit over 10 years ago 07/04/2014 Alcohol history Unknown occasionally drinks alcohol 07/04/2014 Frequency of drinks SNOMED CT: 122357661 Drinks rarely 07/04/2014 Allergies, Adverse Reactions, Alerts Substance Reaction Codes Entered Date Inactivated Date Status Iodine rash, pruritis RxNorm: 5933 03/04/2015 No Inactive Date Active tramadol pruritis RxNorm: 75747 07/04/2014 No Inactive Date Active Past Medical History Illness Codes Condition Status Onset Date Resolved Date Dysuria ICD-9: 788.1 ICD-10: R30.0 Active 03/30/2017 Unknown Other malaise ICD-9: 780.79 ICD-10: R53.81 [...] ICD-9: 788.1 ICD-10: R30.0 03/30/2017 Active Other malaise ICD-9: 780.79 ICD-10: R53.81 [...] Start Date Stop Date Status Fill Instructions Augmentin 500 mg-125 mg tablet RxNorm: 539903 1 Tablet(s) PO TID 03/31/2017 04/09/2017 Active Augmentin 500 mg-125 mg tablet RxNorm: 221985 1 Tablet(s) PO TID 03/31/2017 03/30/2017 Inactive Effexor XR 75 mg capsule,extended release RxNorm: 856372 TAKE 3 CAPSULES BY MOUTH EVERY MORNING 03/24/2017 07/21/2017 Active potassium chloride ER 20 mEq tablet,extended release RxNorm: 321433 1 TABLET(S) PO DAILY 03/13/2017 03/07/2018 Active lisinopril 40 mg tablet RxNorm: 783177 TAKE 1 TABLET BY MOUTH DAILY 02/06/2017 11/02/2017 Active pantoprazole 40 mg tablet,delayed release RxNorm: 281375 TAKE 1 TABLET BY MOUTH DAILY 12/19/2016 12/13/2017 Active oxycodone 5 mg tablet RxNorm: 4968003 4 Tablet(s) PO daily 12/19/2016 03/03/2017 Inactive diclofenac sodium 75 mg tablet,delayed release RxNorm: 022087 1 TABLET(S) PO BID 11/17/2016 08/13/2017 Active gabapentin 600 mg tablet RxNorm: 495862 TABLET(S) TAKE 1 TABLET BY MOUTH TWICE DAILY 10/14/2016 04/11/2017 Active Flagyl 500 mg tablet RxNorm: 691945 1 Tablet(s) PO TID 10/07/2016 10/16/2016 Inactive oxycodone 5 mg tablet RxNorm: 3889035 4 Tablet(s) PO daily 10/03/2016 12/16/2016 Inactive Effexor XR 75 mg capsule,extended release RxNorm: 938718 TAKE 3 CAPSULES BY MOUTH EVERY MORNING 09/22/2016 11/20/2016 Inactive Patient requests 90 days supply lisinopril 40 mg tablet RxNorm: 146697 TAKE 1 TABLET BY MOUTH DAILY 08/01/2016 01/27/2017 Inactive Effexor XR 75 mg capsule,extended release RxNorm: 777415 TAKE 3 CAPSULES BY MOUTH EVERY MORNING 07/21/2016 09/21/2016 Inactive oxycodone 5 mg tablet RxNorm: 3985787 4 Tablet(s) PO daily 07/11/2016 09/23/2016 Inactive Movantik 25 mg tablet RxNorm: 0572965 1 Tablet(s) PO daily 07/01/2016 No Stop Date Active potassium chloride ER 20 mEq tablet,extended release RxNorm: 333071 1 TABLET(S) PO DAILY 06/14/2016 03/10/2017 Inactive Flagyl 500 mg tablet RxNorm: 801935 1 Tablet(s) PO TID 06/03/2016 06/12/2016 Inactive Flagyl 500 mg tablet RxNorm: 306138 1 Tablet(s) PO TID 06/03/2016 06/02/2016 Inactive oxycodone 5 mg tablet RxNorm: 5959797 4 Tablet(s) PO daily 04/27/2016 07/10/2016 Inactive Tamiflu 75 mg capsule RxNorm: 332369 1 Capsule(s) PO daily 04/19/2016 04/28/2016 Inactive Tamiflu 75 mg capsule RxNorm: 440849 1 Capsule(s) PO daily 04/19/2016 04/18/2016 Inactive Effexor XR 75 mg capsule,extended release RxNorm: 478233 TAKE 3 CAPSULES BY MOUTH EVERY MORNING 02/18/2016 04/17/2016 Inactive diclofenac sodium 75 mg tablet,delayed release RxNorm: 223526 1 TABLET(S) PO BID 02/18/2016 11/13/2016 Inactive Effexor XR 75 mg capsule,extended release RxNorm: 330816 Capsule(s) TAKE 3 CAPSULES BY MOUTH EVERY MORNING 02/17/2016 08/14/2016 Inactive oxycodone 5 mg tablet RxNorm: 4780842 4 Tablet(s) PO daily 02/04/2016 04/26/2016 Inactive clopidogrel 75 mg tablet RxNorm: 341931 1 TABLET(S) PO QAM 02/01/2016 01/25/2017 Inactive gabapentin 600 mg tablet RxNorm: 344161 Tablet(s) TAKE 1 TABLET BY MOUTH TWICE DAILY 02/01/2016 10/13/2016 Inactive Effexor XR 75 mg capsule,extended release RxNorm: 390598 TAKE 3 CAPSULES BY MOUTH EVERY MORNING 01/11/2016 02/09/2016 Inactive pantoprazole 40 mg tablet,delayed release RxNorm: 544117 TAKE 1 TABLET BY MOUTH DAILY 12/22/2015 12/15/2016 Inactive Effexor XR 75 mg capsule,extended release RxNorm: 498040 TAKE 3 CAPSULES BY MOUTH EVERY MORNING 11/16/2015 01/14/2016 Inactive lisinopril 40 mg tablet RxNorm: 125239 TAKE 1 TABLET BY MOUTH DAILY 11/05/2015 07/31/2016 Inactive Effexor XR 75 mg capsule,extended release RxNorm: 281363 TAKE 3 CAPSULES BY MOUTH EVERY MORNING 09/22/2015 11/20/2015 Inactive Augmentin 500 mg-125 mg tablet RxNorm: 690790 1 Tablet(s) PO TID 09/18/2015 09/24/2015 Inactive Anoro Ellipta 62.5 mcg-25 mcg/actuation powder for inhalation RxNorm: 5094633 1 INH DAILY 08/20/2015 No Stop Date Active Anoro Ellipta 62.5 mcg-25 mcg/actuation powder for inhalation RxNorm: 5947310 1 INH daily 08/20/2015 02/15/2016 Inactive lisinopril 40 mg tablet RxNorm: 554548 TAKE 1 TABLET BY MOUTH DAILY 08/10/2015 11/04/2015 Inactive gabapentin 600 mg tablet RxNorm: 809752 TAKE 1 TABLET BY MOUTH TWICE DAILY 08/10/2015 01/31/2016 Inactive terazosin 2 mg capsule RxNorm: 451281 TAKE ONE CAPSULE BY MOUTH EVERY DAY 07/27/2015 08/29/2016 Inactive hyoscyamine 0.125 mg sublingual tablet RxNorm: 8062495 1 Tablet(s) SL TID as needed 07/24/2015 08/02/2015 Inactive metronidazole 500 mg tablet RxNorm: 232617 1 Tablet(s) PO TID 07/24/2015 07/30/2015 Inactive Effexor XR 75 mg capsule,extended release RxNorm: 626327 TAKE 3 CAPSULES BY MOUTH EVERY MORNING 07/23/2015 09/20/2015 Inactive oxycodone 5 mg tablet RxNorm: 6439962 4 Tablet(s) PO daily 06/26/2015 02/03/2016 Inactive potassium chloride ER 20 mEq tablet,extended release RxNorm: 554467 1 Tablet(s) PO daily 06/25/2015 06/13/2016 Inactive oxycodone 5 mg tablet RxNorm: 2013522 4 Tablet(s) PO daily 04/17/2015 06/25/2015 Inactive rx written Anoro Ellipta 62.5 mcg-25 mcg/actuation powder for inhalation RxNorm: 9174089 1 INH daily 04/17/2015 08/19/2015 Inactive potassium chloride ER 20 mEq tablet,extended release RxNorm: 544668 1 Tablet(s) PO daily 03/23/2015 06/24/2015 Inactive triamcinolone acetonide 0.1 % topical cream RxNorm: 6888005 1 Application TOP BID 03/20/2015 No Stop Date Active carvedilol 12.5 mg tablet RxNorm: 377068 1 TABLET(S) PO BID 02/23/2015 08/21/2015 Inactive diclofenac sodium 75 mg tablet,delayed release RxNorm: 535315 1 Tablet(s) PO BID 02/18/2015 02/12/2016 Inactive carvedilol 12.5 mg tablet RxNorm: 619411 1 Tablet(s) PO BID 02/17/2015 02/11/2016 Inactive furosemide 40 mg tablet RxNorm: 206606 1 Tablet(s) PO daily 02/17/2015 02/11/2016 Inactive lisinopril 40 mg tablet RxNorm: 191224 TAKE 1 TABLET BY MOUTH DAILY 02/16/2015 08/09/2015 Inactive ceftriaxone 1 gram solution for injection RxNorm: 9520873 1 Gram(s) Inj daily mix with lidocaine 01/14/2015 01/17/2015 Inactive please supply 4 bottles of 1gram rocephin IM with 1 bottle of lidocaine 1% for home health to administer to pt starting 01/15 ceftriaxone 1 gram solution for injection RxNorm: 9591213 1 Gram(s) Inj daily 01/14/2015 01/13/2015 Inactive please supply 4 bottles of 1gram rocephin IM with 1 bottle of lidocaine 1% for home health to administer to pt starting 01/15 Augmentin 500 mg-125 mg tablet RxNorm: 225361 1 Tablet(s) PO BID 01/13/2015 01/22/2015 Inactive Keflex 500 mg capsule RxNorm: 570662 1 Capsule(s) PO TID 12/12/2014 12/11/2014 Inactive Keflex 500 mg capsule RxNorm: 504647 1 Capsule(s) PO TID 12/12/2014 12/17/2014 Inactive Augmentin 500 mg-125 mg tablet RxNorm: 118419 1 Tablet(s) PO BID 11/28/2014 12/02/2014 Inactive Augmentin 500 mg-125 mg tablet RxNorm: 072990 1 Tablet(s) PO BID 11/28/2014 11/27/2014 Inactive Cipro 500 mg tablet RxNorm: 000391 1 Tablet(s) PO BID 11/24/2014 11/27/2014 Inactive gabapentin 600 mg tablet RxNorm: 254033 1 Tablet(s) PO BID 11/17/2014 08/13/2015 Inactive gabapentin 600 mg tablet RxNorm: 353653 1 Tablet(s) PO BID 11/17/2014 11/16/2014 Inactive oxycodone 5 mg tablet RxNorm: 3625554 4 Tablet(s) PO daily 11/07/2014 02/04/2015 Inactive rx written Effexor XR 75 mg capsule,extended release RxNorm: 275529 3 Capsule(s) 225 PO QAM 11/05/2014 03/04/2015 Inactive clopidogrel 75 mg tablet RxNorm: 199118 1 Tablet(s) PO QAM 11/05/2014 01/28/2016 Inactive Effexor XR 75 mg capsule,extended release RxNorm: 055919 3 Capsule(s) 225 PO QAM 11/03/2014 11/04/2014 Inactive carvedilol 12.5 mg tablet RxNorm: 579611 1 Tablet(s) PO BID 10/28/2014 02/16/2015 Inactive Effexor XR 75 mg capsule,extended release RxNorm: 887200 3 Capsule(s) 225 PO QAM 10/28/2014 11/02/2014 Inactive Effexor XR 75 mg capsule,extended release RxNorm: 151030 3 Capsule(s) 225 PO QAM 10/28/2014 10/27/2014 Inactive carvedilol 12.5 mg tablet RxNorm: 883081 1 Tablet(s) PO BID 10/28/2014 10/27/2014 Inactive ceftriaxone 1 gram solution for injection RxNorm: 7951930 Inj 09/05/2014 09/05/2014 Inactive Cipro 500 mg tablet RxNorm: 478215 1 Tablet(s) PO BID 09/04/2014 09/03/2014 Inactive Cipro 500 mg tablet RxNorm: 057349 1 Tablet(s) PO BID 09/04/2014 09/10/2014 Inactive oxycodone 5 mg tablet RxNorm: 9950953 4 Tablet(s) PO daily 08/20/2014 11/06/2014 Inactive rx written lisinopril 40 mg tablet RxNorm: 098059 TAKE 1 TABLET BY MOUTH DAILY 08/18/2014 02/13/2015 Inactive nystatin 100,000 unit/mL oral suspension RxNorm: 261277 5 Milliliter(s) PO QID 07/04/2014 07/13/2014 Inactive [SAVINGS FOR NON-COVERED DRUGS -- BIN:[id number], PCN: [id number], Group: [id number], ID# [id number], Questions: . THIS IS NOT INSURANCE.] WelChol 3.75 gram oral powder packet RxNorm: 785179 1 PO BID No Start Date Active amlodipine 10 mg tablet RxNorm: 265822 1 Tablet(s) PO QAM No Start Date Active One A Day oral RxNorm: 54458 oral No Start Date Active Vitamin D2 400 unit capsule RxNorm: 518176 1 Capsule(s) PO daily No Start Date Active aspirin 81 mg tablet,delayed release RxNorm: 700731 1 Tablet(s) PO daily No Start Date Active melatonin 5 mg disintegrating tablet RxNorm: 5257750 1 Tablet(s) PO QHS No Start Date Active clonidine HCl 0.1 mg tablet RxNorm: 008224 1 Tablet(s) PO QHS No Start Date Active hydrochlorothiazide oral RxNorm: 5487 oral No Start Date Active Lasix oral RxNorm: 056265 oral No Start Date 02/17/2015 Inactive potassium chloride 20 meq RxNorm: 419977 PO daily No Start Date 03/22/2015 Inactive oxycodone 5 mg tablet RxNorm: 2213833 3-4 Tablet(s) PO QHS No Start Date 08/19/2014 Inactive terazosin 2 mg capsule RxNorm: 608150 1 Capsule(s) PO daily No Start Date 07/26/2015 Inactive Effexor XR 75 mg capsule,extended release RxNorm: 290936 3 Capsule(s) 225 PO QAM No Start Date 10/27/2014 Inactive gabapentin 600 mg tablet RxNorm: 631336 1 Tablet(s) PO BID No Start Date 11/16/2014 Inactive pantoprazole 40 mg tablet,delayed release RxNorm: 579447 oral No Start Date 12/21/2015 Inactive Anoro Ellipta 62.5 mcg-25 mcg/actuation powder for inhalation RxNorm: 6683899 1 INH daily No Start Date 04/16/2015 Inactive diclofenac sodium 75 mg tablet,delayed release RxNorm: 262403 1 Tablet(s) PO BID No Start Date 02/17/2015 Inactive clopidogrel 75 mg tablet RxNorm: 973627 1 Tablet(s) PO QAM No Start Date 11/04/2014 Inactive lisinopril 40 mg tablet RxNorm: 071619 1 Tablet(s) PO daily No Start Date 08/17/2014 Inactive carvedilol 12.5 mg tablet RxNorm: 292029 1 Tablet(s) PO BID No Start Date 10/27/2014 Inactive Medication Administered Medication Codes Instructions Start Date Status ceftriaxone 1 gram solution for injection RxNorm: 4880825 09/05/2014 No longer Active Immunizations Vaccine Codes [...] Code Result Date Clostridium Diff Tox A/B Lyy638 Cdiff Positive 06/03/2016 Total Psa PSA 1.53 [...] 27.4 % 03/20/2015 Cbc With Differential Ord2 [place]% 12.8 % 03/20/2015 Cbc With Differential Ord2 MCH 31.2 pg 03/20/2015 Cbc With Differential Ord2 MCHC 31.5 pg 03/20/2015 Cbc With Differential Ord2 Eos% 9.4 % 03/20/2015 Cbc With Differential Ord2 Baso% 0.2 % 03/20/2015 Cbc With Differential Ord2 PLT 344 K/ul 03/20/2015 Cbc With Differential Ord2 RDW 16.0 % 03/20/2015 Cbc With Differential Ord2 Neut ABS# 3.10 K/ul 03/20/2015 Cbc With Differential Ord2 Lymph ABS# 1.69 K/ul 03/20/2015 Cbc With Differential Ord2 [place] ABS# 0.8 K/ul 03/20/2015 Cbc With Differential Ord2 Eos ABS# 0.6 K/ul 03/20/2015 Cbc With Differential Ord2 Baso ABS# 0.0 K/ul 03/20/2015 Cbc With Differential Ord2 New Analyzer Notice Please note new ref ranges starting 03-04-2015 due to implemntation of new five part differential hematolgy analyzer. 03/20/2015 Comp Metabolic Jyx667 NA 138 mEq/L 02/26/2015 Comp Metabolic Nhq146 K 4.0 mEq/L 02/26/2015 Comp Metabolic Iok225 CL 103 mEq/L 02/26/2015 Comp Metabolic Fqv601 CO2 28.0 mEq/L 02/26/2015 Comp Metabolic Dck353 ANION GAP 11 02/26/2015 Comp Metabolic Htm586 GLUCOSE 95 mg/dL 02/26/2015 Comp Metabolic Ypz529 Creat 1.0 mg/dL 02/26/2015 Comp Metabolic Icg918 eGFR 74 ml/min/1.73m2 02/26/2015 Comp Metabolic Rkp324 BUN 19 mg/dL 02/26/2015 Comp Metabolic Myz652 B/C Ratio 18.3 Ratio 02/26/2015 Comp Metabolic Iqd640 CALCIUM 9.1 mg/dL 02/26/2015 Comp Metabolic Wlu898 ALK PHOS 87 U/L 02/26/2015 Comp Metabolic Bhz758 AST(SGOT) 22 U/L 02/26/2015 Comp Metabolic Yjc581 ALT(SGPT) 24 U/L 02/26/2015 Comp Metabolic Pmv626 BILI T 0.4 mg/dL 02/26/2015 Comp Metabolic Jzs385 ALBUMIN 4.0 g/dL 02/26/2015 Comp Metabolic Qml590 TPRO 7.4 g/dL 02/26/2015 Comp Metabolic Nzq939 GLOB 3.4 g/dL 02/26/2015 Comp Metabolic Qnn191 A/G Ratio 1.2 Ratio 02/26/2015 Comp Metabolic Ihi606 Osmo 278 mOsmo 02/26/2015 Total Psa Ord10 PSA 2.25 ng/mL 02/26/2015 Culture Urine [id number] URINE CULTURE SEE NOTES 12/15/2014 Culture Urine [id number] Continued Results 12/15/2014 Urine Culture Ucult Complete >100,000 col/ml aerobic growth sent to ref lab 12/12/2014 Comp Metabolic Buh431 NA 136 mEq/L 12/05/2014 Comp Metabolic Gda963 K 4.3 mEq/L 12/05/2014 Comp Metabolic Xlm161 CL 104 mEq/L 12/05/2014 Comp Metabolic Oxf721 CO2 29.0 mEq/L 12/05/2014 Comp Metabolic Jxp680 ANION GAP 7 12/05/2014 Comp Metabolic Wns509 GLUCOSE 80 mg/dL 12/05/2014 Comp Metabolic Wne334 Creat 1.1 mg/dL 12/05/2014 Comp Metabolic Xjf857 eGFR 68 ml/min/1.73m2 12/05/2014 Comp Metabolic Xoo193 BUN 21 mg/dL 12/05/2014 Comp Metabolic Xyc089 B/C Ratio 18.8 Ratio 12/05/2014 Comp Metabolic Fhe695 CALCIUM 9.3 mg/dL 12/05/2014 Comp Metabolic Zcm305 ALK PHOS 81 U/L 12/05/2014 Comp Metabolic Oni607 AST(SGOT) 17 U/L 12/05/2014 Comp Metabolic Kbt449 ALT(SGPT) 16 U/L 12/05/2014 Comp Metabolic Jew688 BILI T 0.3 mg/dL 12/05/2014 Comp Metabolic Pnq800 ALBUMIN 4.0 g/dL 12/05/2014 Comp Metabolic Txu771 TPRO 6.9 g/dL 12/05/2014 Comp Metabolic Fxt202 GLOB 2.9 g/dL 12/05/2014 Comp Metabolic Eui458 A/G Ratio 1.4 Ratio 12/05/2014 Comp Metabolic Dxr142 Osmo 274 mOsmo 12/05/2014 Cbc With Differential [...] Ord2 RDW 15.0 % 12/05/2014 Culture Urine [id number] URINE CULTURE SEE NOTES 11/27/2014 Culture Urine [id number] Continued Results 11/27/2014 Urine Culture Ucult Complete Growth of aerobe sent to ref lab 11/25/2014 B Type Natriuretic Peptide Ysq3069 B-[employer] 121.00 pg/ml 10/08/2014 Cbc With Differential Ord2 [...] Folate Ord36 Folate 22.12 ng/mL 10/08/2014 B12 Lhh780 B12 >1500.00 pg/ml 10/08/2014 Comp Metabolic Nhe006 NA 135 mEq/L 10/08/2014 Comp Metabolic Lkw986 K 4.5 mEq/L 10/08/2014 Comp Metabolic Kur813 CL 104 mEq/L 10/08/2014 Comp Metabolic Dnl985 CO2 25.0 mEq/L 10/08/2014 Comp Metabolic Vhq521 ANION GAP 11 10/08/2014 Comp Metabolic Yxl264 GLUCOSE 73 mg/dL 10/08/2014 Comp Metabolic Hlu129 Creat 1.1 mg/dL 10/08/2014 Comp Metabolic Qjt191 eGFR 71 ml/min/1.73m2 10/08/2014 Comp Metabolic Kst483 BUN 21 mg/dL 10/08/2014 Comp Metabolic Pfl687 B/C Ratio 19.4 Ratio 10/08/2014 Comp Metabolic Uxl421 CALCIUM 9.0 mg/dL 10/08/2014 Comp Metabolic Qil070 ALK PHOS 73 U/L 10/08/2014 Comp Metabolic Ywv113 AST(SGOT) 15 U/L 10/08/2014 Comp Metabolic Lfo957 ALT(SGPT) 14 U/L 10/08/2014 Comp Metabolic Oot278 BILI T 0.4 mg/dL 10/08/2014 Comp Metabolic Zgf257 ALBUMIN 4.2 g/dL 10/08/2014 Comp Metabolic Zav917 TPRO 7.1 g/dL 10/08/2014 Comp Metabolic Tbt758 GLOB 2.9 g/dL 10/08/2014 Comp Metabolic Lve688 A/G Ratio 1.4 Ratio 10/08/2014 Comp Metabolic Wma640 Osmo 272 mOsmo 10/08/2014 B12 Rpo326 B12 554.00 pg/ml 09/16/2014 Tibc Ord40 Iron 108 ug/dl 09/16/2014 Tibc Ord40 UIBC 281 ug/dL 09/16/2014 Tibc Ord40 TIBC 389 ug/dL 09/16/2014 Tibc Ord40 Fe-%Sat 27.8 % 09/16/2014 Folate Ord36 Folate >23.20 ng/mL 09/16/2014 Comp Metabolic Nxe800 NA 134 mEq/L 09/16/2014 Comp Metabolic Rjn316 K 4.6 mEq/L 09/16/2014 Comp Metabolic Nri526 CL 103 mEq/L 09/16/2014 Comp Metabolic Msy666 CO2 25.0 mEq/L 09/16/2014 Comp Metabolic Ifq778 ANION GAP 11 09/16/2014 Comp Metabolic Mhd169 GLUCOSE 93 mg/dL 09/16/2014 Comp Metabolic Iih681 Creat 1.2 mg/dL 09/16/2014 Comp Metabolic Hwp833 eGFR 65 ml/min/1.73m2 09/16/2014 Comp Metabolic Zsw012 BUN 23 mg/dL 09/16/2014 Comp Metabolic Yjv773 B/C Ratio 19.8 Ratio 09/16/2014 Comp Metabolic Zdf108 CALCIUM 9.1 mg/dL 09/16/2014 Comp Metabolic Ldt541 ALK PHOS 73 U/L 09/16/2014 Comp Metabolic Uvo316 AST(SGOT) 18 U/L 09/16/2014 Comp Metabolic Hnh136 ALT(SGPT) 16 U/L 09/16/2014 Comp Metabolic Vbl627 BILI T 0.4 mg/dL 09/16/2014 Comp Metabolic Lbt954 ALBUMIN 4.0 g/dL 09/16/2014 Comp Metabolic Sbw649 TPRO 7.1 g/dL 09/16/2014 Comp Metabolic Owv131 GLOB 3.1 g/dL 09/16/2014 Comp Metabolic Aeh968 A/G Ratio 1.3 Ratio 09/16/2014 Comp Metabolic Jry957 Osmo 272 mOsmo 09/16/2014 Cbc With Differential [...] Ord22 FERRITIN 36.2 ng/mL 09/16/2014 Culture Urine [id number] URINE CULTURE SEE NOTES 09/08/2014 Urine Culture [...] Ord2 RDW 17.8 % 09/05/2014 Comp Metabolic Kfc370 NA 133 mEq/L 09/05/2014 Comp Metabolic Vwl126 K 4.9 mEq/L 09/05/2014 Comp Metabolic Auw804 CL 99 mEq/L 09/05/2014 Comp Metabolic Yvh620 CO2 26.0 mEq/L 09/05/2014 Comp Metabolic Egt866 ANION GAP 13 09/05/2014 Comp Metabolic Caz608 GLUCOSE 83 mg/dL 09/05/2014 Comp Metabolic Mji709 Creat 1.5 mg/dL 09/05/2014 Comp Metabolic Vds019 eGFR 47 ml/min/1.73m2 09/05/2014 Comp Metabolic Pfy991 BUN 28 mg/dL 09/05/2014 Comp Metabolic Yml767 B/C Ratio 18.3 Ratio 09/05/2014 Comp Metabolic Nfg806 CALCIUM 8.9 mg/dL 09/05/2014 Comp Metabolic Hve538 ALK PHOS 71 U/L 09/05/2014 Comp Metabolic Ppr073 AST(SGOT) 18 U/L 09/05/2014 Comp Metabolic Zzs190 ALT(SGPT) 29 U/L 09/05/2014 Comp Metabolic Onl457 BILI T 0.6 mg/dL 09/05/2014 Comp Metabolic Ief811 ALBUMIN 3.8 g/dL 09/05/2014 Comp Metabolic Ilh033 TPRO 6.7 g/dL 09/05/2014 Comp Metabolic Xve455 GLOB 2.9 g/dL 09/05/2014 Comp Metabolic Rcl907 A/G Ratio 1.3 Ratio 09/05/2014 Comp Metabolic Xsi664 Osmo 271 mOsmo 09/05/2014 Total Psa Ord10 [...] Codes Date URINALYSIS NONAUTO W/O SCOPE CPT-4: 69414 09/18/2015 ADMIN INFLUENZA VIRUS VAC CPT-4: G0008 12/31/2014 FLU VACC PRSV FREE INC ANTIG Formatting Model/CDA Sections, Assigned to/[place] [employer] CPT-4: [id number] 12/31/2014 URINALYSIS NONAUTO W/O SCOPE CPT-4: 43524 12/10/2014 URINALYSIS NONAUTO W/O SCOPE CPT-4: 39478 11/24/2014 ROCEPHIN, PER 250 MG CPT- 4: J0696 09/05/2014 THER/PROPH/DIAG INJ SC/IM CPT-4: 20709 09/05/2014 URINALYSIS NONAUTO W/O SCOPE CPT-4: 26938 09/04/2014 Vital Signs Date Vital 10/07/2016 Blood Pressure 1: 138/60 Code: 8480-6 BMI: 37.2 Code: 15744-0 Heart Rate 1: 79 bpm Height: 5'9" SpO2: 91% Weight: 252 lbs 07/01/2016 Blood Pressure 1: 138/68 Code: 8480-6 BMI: 37.2 Code: 48844-8 Heart Rate 1: 69 bpm Height: 5'9" SpO2: 93% Weight: 252 lbs 05/05/2016 Blood Pressure 1: 136/78 Code: 8480-6 BMI: 39.3 Code: 67629-7 Heart Rate 1: 72 bpm Height: 5'9" SpO2: 97% Weight: 266 lbs 02/23/2016 Blood Pressure 1: 145/70 Code: 8480-6 BMI: 37.5 Code: 57498-1 Heart Rate 1: 80 bpm Height: 5'9" Weight: 254 lbs 09/16/2015 Blood Pressure 1: 140/62 Code: 8480-6 Heart Rate 1: 77 bpm Height: 5'9" SpO2: 93% Weight: 07/24/2015 Blood Pressure 1: 152/68 Code: 8480-6 BMI: 37.7 Code: 25865-3 Heart Rate 1: 73 bpm Height: 5'9" SpO2: 97% Weight: 255 lbs 03/20/2015 Blood Pressure 1: 146/74 Code: 8480-6 BMI: 38.1 Code: 24153-4 Heart Rate 1: 63 bpm Height: 5'9" Weight: 258 lbs 01/13/2015 Blood Pressure 1: 120/58 Code: 8480-6 Heart Rate 1: 52 bpm Height: 5'9" SpO2: 97% Temperature: 37.1 (C) / 98.7 (F) Weight: 12/05/2014 Blood Pressure 1: 134/54 Code: 8480-6 BMI: 36.3 Code: 07962-0 Heart Rate 1: 76 bpm Height: 5'9" SpO2: 93% Weight: 246 lbs 10/03/2014 Blood Pressure 1: 132/60 Code: 8480-6 Heart Rate 1: 76 bpm Height: SpO2: 95% Weight: 254 lbs 09/15/2014 Blood Pressure 1: 120/68 Code: 8480-6 BMI: 37.5 Code: 56641-1 Heart Rate 1: 76 bpm Height: 5'9" SpO2: 93% Weight: 254 lbs 09/05/2014 Blood Pressure 1: 110/50 Code: 8480-6 BMI: 37.4 Code: 76750-8 Heart Rate 1: 79 bpm Height: 5'9" SpO2: 96% Temperature: 36.3 (C) / 97.4 (F) Weight: 253 lbs 07/04/2014 Blood Pressure 1: 138/72 Code: 8480-6 BMI: 37.1 Code: 50108-0 Heart Rate 1: 72 bpm Height: 5'9" [...] discomfort 12/05/2014 occasional ache in chest- seeing art tracer in [place]- doing heart cath in October [...] discomfort 10/03/2014 occasional ache in chest- seeing art tracer in - doing heart cath in October [...] data Encounters Encounter Performer Location Codes Date ([id number]) [id number] EST. PATIENT, LEVEL III Diagnosis: Cough[ICD10: R05] Diagnosis: Enterocolitis due to Clostridium difficile[ICD10: A04.7] [facility] CPT-4: 23436 10/07/2016 ([id number]) [id number] EST. 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 PATIENT, LEVEL III Diagnosis: Cauda equina syndrome[ICD10: G83.4] Diagnosis: Irritable bowel syndrome with diarrhea[ICD10: K58.0] Mary Aburto MD, [facility] CPT-4: 52199 05/05/2016 [id number] EST. PATIENT, LEVEL III Diagnosis: Pain in right shoulder[ICD10: M25.511] Diagnosis: Weakness[ICD10: R53.1] Diagnosis: Shortness of breath[ICD10: R06.02] Mary Aburto MD, [facility] CPT-4: 65823 02/23/2016 [id number] EST. PATIENT, LEVEL III Diagnosis: Essential (primary) hypertension[ICD10: I10] Diagnosis: Other insomnia[ICD10: G47.09] Diagnosis: Irritable bowel syndrome with diarrhea[ICD10: K58.0] Diagnosis: Shortness of breath[ICD10: R06.02] Diagnosis: Weakness[ICD10: R53.1] Mary Aburto MD, [facility] CPT-4: 14563 09/16/2015 [id number] EST. PATIENT, LEVEL III Diagnosis: Diarrhea, unspecified[ICD10: R19.7] Diagnosis: Nausea[ICD10: R11.0] Mary Aburto MD, [facility] CPT-4: 62914 07/24/2015 [id number] EST. PATIENT, LEVEL IV Diagnosis: Other iron deficiency anemias[ICD10: D50.8] Diagnosis: Rash and other nonspecific skin eruption[ICD10: R21] Diagnosis: Cauda equina syndrome[ICD10: G83.4] Diagnosis: Essential (primary) hypertension[ICD10: I10] Diagnosis: Other pruritus[ICD10: L29.8] Diagnosis: Shortness of breath[ICD10: R06.02] Mary Aburto MD, [facility] CPT-4: 16433 03/20/2015 [id number] EST. PATIENT, LEVEL IV Diagnosis: Urinary tract infection, site not specified[ICD10: N39.0] Diagnosis: Umbilical hernia without obstruction or gangrene[ICD10: K42.9] Diagnosis: Cauda equina syndrome[ICD10: G83.4] Mary Aburto MD, [facility] CPT- 4: 49027 01/13/2015 ([id number]) [id number] EST. PATIENT, LEVEL IV Diagnosis: Iron deficiency anemia, unspecified[ICD10: D50.9] Diagnosis: Essential (primary) hypertension[ICD10: I10] Diagnosis: Hematuria, unspecified[ICD10: R31.9] Kavya Aburto MD, [facility] CPT-4: 93583 12/05/2014 ([id number]) 72342 EST. PATIENT, LEVEL IV Diagnosis: ESSENTIAL HYPERTENSION[ICD9: 401.9] Diagnosis: COPD (chronic obstructive pulmonary disease)[ICD9: 496] Diagnosis: ANEMIA[ICD9: 285.9] Diagnosis: SHORTNESS OF BREATH[ICD9: 786.05] Kavya Aburto MD, [facility] CPT- 4: 72597 10/03/2014 ([id number]) 66511 EST. PATIENT, LEVEL IV Diagnosis: ESSENTIAL HYPERTENSION[ICD9: 401.9] Diagnosis: ANEMIA[ICD9: 285.9] Diagnosis: MALAISE AND FATIGUE[ICD9: 780.79] Darleen Aburto MD, [facility] CPT- 4: 97780 09/15/2014 ([id number]) 74571 EST. PATIENT, LEVEL III Diagnosis: UTI[ICD9: 599.0] Diagnosis: Chronic back pain[ICD9: 724.5] Kavya Aburto MD, [facility] CPT-4: 08596 09/05/2014 ([id number]) OFFICE VISIT, NEW - LEVEL 4 Diagnosis: ESSENTIAL HYPERTENSION[ICD9: 401.9] Diagnosis: THRUSH[ICD9: 112.0] Diagnosis: Hyperlipidemia[ICD9: 272.4] Diagnosis: COPD (chronic obstructive pulmonary disease)[ICD9: 496] Diagnosis: Cauda equina syndrome[ICD9: 344.60] Diagnosis: History of prostate cancer[ICD9: V10.46] [facility] CPT-4: 77983 07/04/2014 Plan of Care Planned Activity Notes Codes Status Date Appointment: Mary Alan WPtel: [address] [place], [place] [id number] (30 min) [facility] 03/30/2017 Visit Plan: Cough-suspect virus-patient to monitor over the weekend-call Monday if symptoms persist and we will do a chest xray and sputum culture Cdiff-treat with flagyl as directed-call if symptoms do not resolve 10/07/2016 Appointment: Kavya Subramanian WPtel: [address] [place], [place] [phone] (30 min) Complex 10/07/2016 Patient Education: Patient Medication Summary Completed 10/07/2016 Patient Education: Obesity Completed 10/07/2016 Visit Plan: Cauda equina-chronic back pain-generalized weakness- right shoulder pain/weakness-patient to contact juan blancas for mobility paperwork-will ask PT to do a mobility exam through [facility] Drug induced constipation-rx for [employer]. 07/01/2016 Visit Plan: Cauda equina-chronic back pain-generalized weakness- bilateral shoulder pain/weakness-OA knees-patient to contact juan blancas for mobility paperwork-will ask PT to do a mobility exam through [facility]. Patient is non ambulatory due to [...] for [employer]. 07/01/2016 Appointment: Kavya Subramanian WPtel: [address] [place], [place] [phone] (30 min) Complex 07/01/2016 Patient Education: Patient [...] Appointment: Mary Alan WPtel: [id number] Surgical Clearance 05/05/2016 Patient Education: Patient Medication [...] Juan godoy. 02/23/2016 [facility]ment[phone] [id number] ([facility] Complex 02/23/2016 Patient Education: Patient Medication Summary Completed 02/23/2016 [facility]ment[id number] ([facility]) Complex 02/19/2016 Appointment[phone] [id number] ([facility] min) Moderate 10/14/2015 Appointment: Lab Draw [...] having loose bowel movements. Keep appointment with Slotter Operator Make an appointment with art tracer - to follow up on shortness of breath. Weakness - pt is to contact Juan Blancas [facility] in [facility] and [...] improved. 07/24/2015 Appointment: Kavya Subramanian WPtel: [address] [place], [place] [phone] (30 min) Complex 07/24/2015 Patient Education: Patient [...] and hypertension. 09/15/2014 Appointment: Darleen Aburto WPtel[id number] ([facility] min) Moderate 09/15/2014 Patient Education: Patient [...] equina-increased incontinence of bowels-recommend follow up with processing specialist-will discuss repeat MRI with Dr Aburto-keep [...] Education: Hypertension Completed 07/04/2014 Instructions Comment [employer] to do PT evaluation for motorized wheelchair through [facility] . Cauda equina-chronic back pain-generalized weakness-right shoulder pain/weakness- patient to contact [employer] for mobility paperwork-will ask PT to do a mobility exam through [facility] Drug induced constipation-rx for [employer]. [employer] to do PT evaluation for motorized wheelchair through [facility] . Cauda equina-chronic back pain-generalized weakness-bilateral shoulder pain/weakness- OA knees-patient to contact [employer] for mobility paperwork-will ask PT to do a mobility exam through [employer]. Patient is non ambulatory due to cauda [...] incontinence of bowels- recommend follow up with processing specialist-will discuss repeat MRI with Dr Aburto-keep [...] Peng 4. Make an appointment with your art tracer - to follow up on shortness of [...] having loose bowel movements. Keep appointment with Slotter Operator Make an appointment with art tracer - to follow up on shortness of [...]
--- OUTSIDE RECORDS SUMMARY | 2018-07-19 09:56 | XMS REPORT | CCD ---
Author Author Kavya Subramanian Organization Darleen Aburto MD, [facility] Address [address] [place] [address] Phone Care Team Providers Care Gaming Worker Name Role Phone PP Unavailable CCM Unavailable Summary Purpose Interface Exchange Insurance Providers Payer name Policy type / Coverage type Covered alliance party ID Effective Begin Date Effective End Date WPS Medicare Part B Commercial Insurance [id number] Unknown Unknown [employer]ICE Commercial Insurance [id number] Unknown Unknown Family history Father Diagnosis Age At Onset Coronary Artery Disease Unknown Mother Diagnosis Age At Onset Arthritis Unknown Sister Diagnosis Age At Onset Alzheimer's Disease Unknown Social History Social History Element Codes Description Effective Dates Marital status Unknown 07/04/2014 Number of children Unknown 2 07/04/2014 Living arrangements Unknown House 07/04/[address]: 2978963 Quit over 10 years ago 07/04/2014 Alcohol history Unknown occasionally drinks alcohol 07/04/2014 Frequency of drinks SNOMED CT: 567776860 Drinks rarely 07/04/2014 Allergies, Adverse Reactions, Alerts Substance Reaction Codes Entered Date Inactivated Date Status Iodine rash, pruritis RxNorm: 5933 03/04/2015 No Inactive Date Active tramadol pruritis RxNorm: 02650 07/04/2014 No Inactive Date Active Past Medical [...] chloride ER 20 mEq tablet,extended release RxNorm: 260740 1 TABLET(S) PO DAILY 03/13/2017 03/07/2018 Active lisinopril 40 mg tablet RxNorm: 882842 TAKE 1 TABLET BY MOUTH DAILY 02/06/2017 11/02/2017 Active pantoprazole 40 mg tablet,delayed release RxNorm: 477238 TAKE 1 TABLET BY MOUTH DAILY 12/19/2016 12/13/2017 Active oxycodone 5 mg tablet RxNorm: 5344458 4 Tablet(s) PO daily 12/19/2016 03/03/2017 Inactive diclofenac sodium 75 mg tablet,delayed release RxNorm: 502334 1 TABLET(S) PO BID 11/17/2016 08/13/2017 Active gabapentin 600 mg tablet RxNorm: 171574 TABLET(S) TAKE 1 TABLET BY MOUTH TWICE DAILY 10/14/2016 04/11/2017 Active Flagyl 500 mg tablet RxNorm: 008028 1 Tablet(s) PO TID 10/07/2016 10/16/2016 Inactive oxycodone 5 mg tablet RxNorm: 5393570 4 Tablet(s) PO daily 10/03/2016 12/16/2016 Inactive Effexor XR 75 mg capsule,extended release RxNorm: 383723 TAKE 3 CAPSULES BY MOUTH EVERY MORNING 09/22/2016 11/20/2016 Inactive Patient requests 90 days supply lisinopril 40 mg tablet RxNorm: 909905 TAKE 1 TABLET BY MOUTH DAILY 08/01/2016 01/27/2017 Inactive Effexor XR 75 mg capsule,extended release RxNorm: 339353 TAKE 3 CAPSULES BY MOUTH EVERY MORNING 07/21/2016 09/21/2016 Inactive oxycodone 5 mg tablet RxNorm: 7838312 4 Tablet(s) PO daily 07/11/2016 09/23/2016 Inactive Movantik 25 mg tablet RxNorm: 9112340 1 Tablet(s) PO daily 07/01/2016 No Stop Date Active potassium chloride ER 20 mEq tablet,extended release RxNorm: 375409 1 TABLET(S) PO DAILY 06/14/2016 03/10/2017 Inactive Flagyl 500 mg tablet RxNorm: 736069 1 Tablet(s) PO TID 06/03/2016 06/12/2016 Inactive Flagyl 500 mg tablet RxNorm: 473060 1 Tablet(s) PO TID 06/03/2016 06/02/2016 Inactive oxycodone 5 mg tablet RxNorm: 9506974 4 Tablet(s) PO daily 04/27/2016 07/10/2016 Inactive Tamiflu 75 mg capsule RxNorm: 034455 1 Capsule(s) PO daily 04/19/2016 04/28/2016 Inactive Tamiflu 75 mg capsule RxNorm: 421448 1 Capsule(s) PO daily 04/19/2016 04/18/2016 Inactive Effexor XR 75 mg capsule,extended release RxNorm: 058786 TAKE 3 CAPSULES BY MOUTH EVERY MORNING 02/18/2016 04/17/2016 Inactive diclofenac sodium 75 mg tablet,delayed release RxNorm: 967316 1 TABLET(S) PO BID 02/18/2016 11/13/2016 Inactive Effexor XR 75 mg capsule,extended release RxNorm: 256391 Capsule(s) TAKE 3 CAPSULES BY MOUTH EVERY MORNING 02/17/2016 08/14/2016 Inactive oxycodone 5 mg tablet RxNorm: 7453642 4 Tablet(s) PO daily 02/04/2016 04/26/2016 Inactive clopidogrel 75 mg tablet RxNorm: 440591 1 TABLET(S) PO QAM 02/01/2016 01/25/2017 Inactive gabapentin 600 mg tablet RxNorm: 118615 Tablet(s) TAKE 1 TABLET BY MOUTH TWICE DAILY 02/01/2016 10/13/2016 Inactive Effexor XR 75 mg capsule,extended release RxNorm: 961913 TAKE 3 CAPSULES BY MOUTH EVERY MORNING 01/11/2016 02/09/2016 Inactive pantoprazole 40 mg tablet,delayed release RxNorm: 137259 TAKE 1 TABLET BY MOUTH DAILY 12/22/2015 12/15/2016 Inactive Effexor XR 75 mg capsule,extended release RxNorm: 426281 TAKE 3 CAPSULES BY MOUTH EVERY MORNING 11/16/2015 01/14/2016 Inactive lisinopril 40 mg tablet RxNorm: 190199 TAKE 1 TABLET BY MOUTH DAILY 11/05/2015 07/31/2016 Inactive Effexor XR 75 mg capsule,extended release RxNorm: 547652 TAKE 3 CAPSULES BY MOUTH EVERY MORNING 09/22/2015 11/20/2015 Inactive Augmentin 500 mg-125 mg tablet RxNorm: 286842 1 Tablet(s) PO TID 09/18/2015 09/24/2015 Inactive Anoro Ellipta 62.5 mcg-25 mcg/actuation powder for inhalation RxNorm: 3469798 1 INH DAILY 08/20/2015 No Stop Date Active Anoro Ellipta 62.5 mcg-25 mcg/actuation powder for inhalation RxNorm: 8418473 1 INH daily 08/20/2015 02/15/2016 Inactive lisinopril 40 mg tablet RxNorm: 821569 TAKE 1 TABLET BY MOUTH DAILY 08/10/2015 11/04/2015 Inactive gabapentin 600 mg tablet RxNorm: 742545 TAKE 1 TABLET BY MOUTH TWICE DAILY 08/10/2015 01/31/2016 Inactive terazosin 2 mg capsule RxNorm: 676113 TAKE ONE CAPSULE BY MOUTH EVERY DAY 07/27/2015 08/29/2016 Inactive hyoscyamine 0.125 mg sublingual tablet RxNorm: 7337914 1 Tablet(s) SL TID as needed 07/24/2015 08/02/2015 Inactive metronidazole 500 mg tablet RxNorm: 299256 1 Tablet(s) PO TID 07/24/2015 07/30/2015 Inactive Effexor XR 75 mg capsule,extended release RxNorm: 332894 TAKE 3 CAPSULES BY MOUTH EVERY MORNING 07/23/2015 09/20/2015 Inactive oxycodone 5 mg tablet RxNorm: 2834792 4 Tablet(s) PO daily 06/26/2015 02/03/2016 Inactive potassium chloride ER 20 mEq tablet,extended release RxNorm: 190976 1 Tablet(s) PO daily 06/25/2015 06/13/2016 Inactive oxycodone 5 mg tablet RxNorm: 7494608 4 Tablet(s) PO daily 04/17/2015 06/25/2015 Inactive rx written Anoro Ellipta 62.5 mcg-25 mcg/actuation powder for inhalation RxNorm: 9781612 1 INH daily 04/17/2015 08/19/2015 Inactive potassium chloride ER 20 mEq tablet,extended release RxNorm: 037378 1 Tablet(s) PO daily 03/23/2015 06/24/2015 Inactive triamcinolone acetonide 0.1 % topical cream RxNorm: 5653563 1 Application TOP BID 03/20/2015 No Stop Date Active carvedilol 12.5 mg tablet RxNorm: 746697 1 TABLET(S) PO BID 02/23/2015 08/21/2015 Inactive diclofenac sodium 75 mg tablet,delayed release RxNorm: 282518 1 Tablet(s) PO BID 02/18/2015 02/12/2016 Inactive carvedilol 12.5 mg tablet RxNorm: 967193 1 Tablet(s) PO BID 02/17/2015 02/11/2016 Inactive furosemide 40 mg tablet RxNorm: 583020 1 Tablet(s) PO daily 02/17/2015 02/11/2016 Inactive lisinopril 40 mg tablet RxNorm: 525082 TAKE 1 TABLET BY MOUTH DAILY 02/16/2015 08/09/2015 Inactive ceftriaxone 1 gram solution for injection RxNorm: 8887959 1 Gram(s) Inj daily mix with lidocaine 01/14/2015 01/17/2015 Inactive please supply 4 bottles of 1gram rocephin IM with 1 bottle of lidocaine 1% for home health to administer to pt starting 01/15 ceftriaxone 1 gram solution for injection RxNorm: 0328211 1 Gram(s) Inj daily 01/14/2015 01/13/2015 Inactive please supply 4 bottles of 1gram rocephin IM with 1 bottle of lidocaine 1% for home health to administer to pt starting 01/15 Augmentin 500 mg-125 mg tablet RxNorm: 902284 1 Tablet(s) PO BID 01/13/2015 01/22/2015 Inactive Keflex 500 mg capsule RxNorm: 913036 1 Capsule(s) PO TID 12/12/2014 12/11/2014 Inactive Keflex 500 mg capsule RxNorm: 279361 1 Capsule(s) PO TID 12/12/2014 12/18/2014 Inactive Augmentin 500 mg-125 mg tablet RxNorm: 443392 1 Tablet(s) PO BID 11/28/2014 12/02/2014 Inactive Augmentin 500 mg-125 mg tablet RxNorm: 709898 1 Tablet(s) PO BID 11/28/2014 11/27/2014 Inactive Cipro 500 mg tablet RxNorm: 639193 1 Tablet(s) PO BID 11/24/2014 11/27/2014 Inactive gabapentin 600 mg tablet RxNorm: 684317 1 Tablet(s) PO BID 11/17/2014 08/13/2015 Inactive gabapentin 600 mg tablet RxNorm: 374275 1 Tablet(s) PO BID 11/17/2014 11/16/2014 Inactive oxycodone 5 mg tablet RxNorm: 2934218 4 Tablet(s) PO daily 11/07/2014 02/04/2015 Inactive rx written Effexor XR 75 mg capsule,extended release RxNorm: 767592 3 Capsule(s) 225 PO QAM 11/05/2014 03/04/2015 Inactive clopidogrel 75 mg tablet RxNorm: 555311 1 Tablet(s) PO QAM 11/05/2014 01/28/2016 Inactive Effexor XR 75 mg capsule,extended release RxNorm: 752298 3 Capsule(s) 225 PO QAM 11/03/2014 11/04/2014 Inactive carvedilol 12.5 mg tablet RxNorm: 042762 1 Tablet(s) PO BID 10/28/2014 02/16/2015 Inactive Effexor XR 75 mg capsule,extended release RxNorm: 570426 3 Capsule(s) 225 PO QAM 10/28/2014 11/02/2014 Inactive Effexor XR 75 mg capsule,extended release RxNorm: 344384 3 Capsule(s) 225 PO QAM 10/28/2014 10/27/2014 Inactive carvedilol 12.5 mg tablet RxNorm: 867900 1 Tablet(s) PO BID 10/28/2014 10/27/2014 Inactive ceftriaxone 1 gram solution for injection RxNorm: 7820942 Inj 09/05/2014 09/05/2014 Inactive Cipro 500 mg tablet RxNorm: 832715 1 Tablet(s) PO BID 09/04/2014 09/03/2014 Inactive Cipro 500 mg tablet RxNorm: 992752 1 Tablet(s) PO BID 09/04/2014 09/10/2014 Inactive oxycodone 5 mg tablet RxNorm: 4449988 4 Tablet(s) PO daily 08/20/2014 11/06/2014 Inactive rx written lisinopril 40 mg tablet RxNorm: 666548 TAKE 1 TABLET BY MOUTH DAILY 08/18/2014 02/13/2015 Inactive nystatin 100,000 unit/mL oral suspension RxNorm: 606492 5 Milliliter(s) PO QID 07/04/2014 07/13/2014 Inactive [SAVINGS FOR NON-COVERED DRUGS -- BIN:[id number], PCN: [id number], Group: [id number], ID# [id number], Questions: . THIS IS NOT INSURANCE.] WelChol 3.75 gram oral powder packet RxNorm: 075058 1 PO BID No Start Date Active amlodipine 10 mg tablet RxNorm: 594306 1 Tablet(s) PO QAM No Start Date Active One A Day oral RxNorm: 67556 oral No Start Date Active Vitamin D2 400 unit capsule RxNorm: 526199 1 Capsule(s) PO daily No Start Date Active aspirin 81 mg tablet,delayed release RxNorm: 923446 1 Tablet(s) PO daily No Start Date Active melatonin 5 mg disintegrating tablet RxNorm: 9759801 1 Tablet(s) PO QHS No Start Date Active clonidine HCl 0.1 mg tablet RxNorm: 676596 1 Tablet(s) PO QHS No Start Date Active hydrochlorothiazide oral RxNorm: 5487 oral No Start Date Active Lasix oral RxNorm: 794858 oral No Start Date 02/17/2015 Inactive potassium chloride 20 meq RxNorm: 418143 PO daily No Start Date 03/22/2015 Inactive oxycodone 5 mg tablet RxNorm: 5755142 3-4 Tablet(s) PO QHS No Start Date 08/19/2014 Inactive terazosin 2 mg capsule RxNorm: 228768 1 Capsule(s) PO daily No Start Date 07/26/2015 Inactive Effexor XR 75 mg capsule,extended release RxNorm: 697742 3 Capsule(s) 225 PO QAM No Start Date 10/27/2014 Inactive gabapentin 600 mg tablet RxNorm: 133851 1 Tablet(s) PO BID No Start Date 11/16/2014 Inactive pantoprazole 40 mg tablet,delayed release RxNorm: 906624 oral No Start Date 12/21/2015 Inactive Anoro Ellipta 62.5 mcg-25 mcg/actuation powder for inhalation RxNorm: 6596593 1 INH daily No Start Date 04/16/2015 Inactive diclofenac sodium 75 mg tablet,delayed release RxNorm: 994791 1 Tablet(s) PO BID No Start Date 02/17/2015 Inactive clopidogrel 75 mg tablet RxNorm: 911057 1 Tablet(s) PO QAM No Start Date 11/04/2014 Inactive lisinopril 40 mg tablet RxNorm: 688448 1 Tablet(s) PO daily No Start Date 08/17/2014 Inactive carvedilol 12.5 mg tablet RxNorm: 069783 1 Tablet(s) PO BID No Start Date 10/27/2014 Inactive Medication Administered Medication Codes Instructions Start Date Status ceftriaxone 1 gram solution for injection RxNorm: 1923570 09/05/2014 No longer Active Immunizations Vaccine Codes [...] left shoulder ICD-10: M19.012 ICD-9: 715.91 07/01/2016 Cauda equina syndrome ICD-10: G83.4 ICD-9: [...] 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 ICD-9: 280.1 03/20/2015 Other pruritus ICD-10: L29.8 ICD-9: 698.8 03/20/2015 Rash and other nonspecific skin eruption ICD-10: R21 ICD-9: 782.1 03/20/2015 Umbilical hernia without obstruction or gangrene [...] ICD-9: 344.60 07/04/2014 THRUSH ICD-9: 112.0 07/04/2014 Hyperlipidemia ICD-9: 272.4 07/04/2014 Reason For [...] Code Result Date Clostridium Diff Tox A/B Sym742 Cdiff Positive 06/03/2016 Total Psa PSA 1.53 ng/mL 05/05/2016 Ast(Sgot) Ord75 AST(SGOT) 15 U/L 11/02/2015 Alt(Sgpt) Ord58 ALT(SGPT) 14 U/L 11/02/2015 Lipid Ord30 CHOL 153 mg/dL 11/02/2015 Lipid Ord30 HDL 28.0 mg/dl 11/02/2015 Lipid Ord30 TRIG 334 mg/dL 11/02/2015 Lipid Ord30 LDL 58 mg/dL 11/02/2015 Lipid Ord30 C/HDL 5.5 Ratio 11/02/2015 Cpk Ord61 CPK 137 U/L 11/02/2015 Urine Culture Ucult Complete >100,000 col/ml aerobic growth sent to ref lab 09/19/2015 Cbc With Differential Ord2 WBC 6.17 K/ul 03/20/2015 Cbc With Differential Ord2 RBC 3.33 M/ul 03/20/2015 Cbc With Differential Ord2 HGB 10.4 g/dl 03/20/2015 Cbc With Differential Ord2 Neut% 50.2 % 03/20/2015 Cbc With Differential Ord2 HCT 33.0 % 03/20/2015 Cbc With Differential Ord2 Lymph% 27.4 % 03/20/2015 Cbc With Differential Ord2 MCV 99.1 fl 03/20/2015 Cbc With Differential Ord2 MCH 31.2 pg 03/20/2015 Cbc With Differential Ord2 [place]% 12.8 % 03/20/2015 Cbc With Differential Ord2 Eos% 9.4 % 03/20/2015 Cbc With Differential Ord2 MCHC 31.5 pg 03/20/2015 Cbc With Differential Ord2 Baso% 0.2 % 03/20/2015 Cbc With Differential Ord2 PLT 344 K/ul 03/20/2015 Cbc With Differential Ord2 RDW 16.0 % 03/20/2015 Cbc With Differential Ord2 Neut ABS# 3.10 K/ul 03/20/2015 Cbc With Differential Ord2 Lymph ABS# 1.69 K/ul 03/20/2015 Cbc With Differential Ord2 [place] ABS# 0.8 K/ul 03/20/2015 Cbc With Differential Ord2 Eos ABS# 0.6 K/ul 03/20/2015 Cbc With Differential Ord2 Baso ABS# 0.0 K/ul 03/20/2015 Cbc With Differential Ord2 New Analyzer Notice Please note new ref ranges starting 03-04-2015 due to implemntation of new five part differential hematolgy analyzer. 03/20/2015 Comp Metabolic Iin366 NA 138 mEq/L 02/26/2015 Comp Metabolic Wvv387 K 4.0 mEq/L 02/26/2015 Comp Metabolic Vxv412 CL 103 mEq/L 02/26/2015 Comp Metabolic Ynw186 CO2 28.0 mEq/L 02/26/2015 Comp Metabolic Zba512 ANION GAP 11 02/26/2015 Comp Metabolic Lky344 GLUCOSE 95 mg/dL 02/26/2015 Comp Metabolic Jhs934 Creat 1.0 mg/dL 02/26/2015 Comp Metabolic Lts013 eGFR 74 ml/min/1.73m2 02/26/2015 Comp Metabolic Uwn021 BUN 19 mg/dL 02/26/2015 Comp Metabolic Xmb492 B/C Ratio 18.3 Ratio 02/26/2015 Comp Metabolic Mto747 CALCIUM 9.1 mg/dL 02/26/2015 Comp Metabolic Qvo107 ALK PHOS 87 U/L 02/26/2015 Comp Metabolic Ptd405 AST(SGOT) 22 U/L 02/26/2015 Comp Metabolic Hbs210 ALT(SGPT) 24 U/L 02/26/2015 Comp Metabolic Tmw022 BILI T 0.4 mg/dL 02/26/2015 Comp Metabolic Hvc907 ALBUMIN 4.0 g/dL 02/26/2015 Comp Metabolic Kfi113 TPRO 7.4 g/dL 02/26/2015 Comp Metabolic Dlt609 GLOB 3.4 g/dL 02/26/2015 Comp Metabolic Nmh415 A/G Ratio 1.2 Ratio 02/26/2015 Comp Metabolic Ghp575 Osmo 278 mOsmo 02/26/2015 Total Psa Ord10 PSA 2.25 ng/mL 02/26/2015 Culture Urine [id number] URINE CULTURE SEE NOTES 12/15/2014 Culture Urine [id number] Continued Results 12/15/2014 Urine Culture Ucult Complete >100,000 col/ml aerobic growth sent to ref lab 12/12/2014 Comp Metabolic Afg989 NA 136 mEq/L 12/05/2014 Comp Metabolic Ylh468 K 4.3 mEq/L 12/05/2014 Comp Metabolic Xcb465 CL 104 mEq/L 12/05/2014 Comp Metabolic Lla150 CO2 29.0 mEq/L 12/05/2014 Comp Metabolic Edg322 ANION GAP 7 12/05/2014 Comp Metabolic Yqy259 GLUCOSE 80 mg/dL 12/05/2014 Comp Metabolic Dgm576 Creat 1.1 mg/dL 12/05/2014 Comp Metabolic Afj978 eGFR 68 ml/min/1.73m2 12/05/2014 Comp Metabolic Qya975 BUN 21 mg/dL 12/05/2014 Comp Metabolic Gzb779 B/C Ratio 18.8 Ratio 12/05/2014 Comp Metabolic Fwq491 CALCIUM 9.3 mg/dL 12/05/2014 Comp Metabolic Wgm625 ALK PHOS 81 U/L 12/05/2014 Comp Metabolic Bhm550 AST(SGOT) 17 U/L 12/05/2014 Comp Metabolic Rqg972 ALT(SGPT) 16 U/L 12/05/2014 Comp Metabolic Ewn443 BILI T 0.3 mg/dL 12/05/2014 Comp Metabolic Spc133 ALBUMIN 4.0 g/dL 12/05/2014 Comp Metabolic Frr039 TPRO 6.9 g/dL 12/05/2014 Comp Metabolic Aqk380 GLOB 2.9 g/dL 12/05/2014 Comp Metabolic Dbq283 A/G Ratio 1.4 Ratio 12/05/2014 Comp Metabolic Tas418 Osmo 274 mOsmo 12/05/2014 Cbc With Differential [...] Ord2 RDW 15.0 % 12/05/2014 Culture Urine [id number] URINE CULTURE SEE NOTES 11/27/2014 Culture Urine [id number] Continued Results 11/27/2014 Urine Culture Ucult Complete Growth of aerobe sent to ref lab 11/25/2014 Cbc With Differential Ord2 WBC 7.3 K/uL [...] With Differential Ord2 RDW 17.8 % 10/08/2014 Folate Ord36 Folate 22.12 ng/mL 10/08/2014 Ferritin Ord22 FERRITIN 31.1 ng/mL 10/08/2014 Tibc Ord40 Iron 92 ug/dl 10/08/2014 Tibc Ord40 UIBC 275 ug/dL 10/08/2014 Tibc Ord40 TIBC 367 ug/dL 10/08/2014 Tibc Ord40 Fe-%Sat 25.1 % 10/08/2014 B Type Natriuretic Peptide Uhm2311 B-CLINICAL INFORMATICS DIRECTOR 121.00 pg/ml 10/08/2014 B12 Ngz126 B12 >1500.00 pg/ml 10/08/2014 Comp Metabolic Vis451 NA 135 mEq/L 10/08/2014 Comp Metabolic Ket458 K 4.5 mEq/L 10/08/2014 Comp Metabolic Uhd123 CL 104 mEq/L 10/08/2014 Comp Metabolic Rqj979 CO2 25.0 mEq/L 10/08/2014 Comp Metabolic Wtr373 ANION GAP 11 10/08/2014 Comp Metabolic Lpe592 GLUCOSE 73 mg/dL 10/08/2014 Comp Metabolic Uet866 Creat 1.1 mg/dL 10/08/2014 Comp Metabolic Qar801 eGFR 71 ml/min/1.73m2 10/08/2014 Comp Metabolic Vyr114 BUN 21 mg/dL 10/08/2014 Comp Metabolic Oju770 B/C Ratio 19.4 Ratio 10/08/2014 Comp Metabolic Xcb341 CALCIUM 9.0 mg/dL 10/08/2014 Comp Metabolic Gnt577 ALK PHOS 73 U/L 10/08/2014 Comp Metabolic Ndx905 AST(SGOT) 15 U/L 10/08/2014 Comp Metabolic Kaa792 ALT(SGPT) 14 U/L 10/08/2014 Comp Metabolic Ywo826 BILI T 0.4 mg/dL 10/08/2014 Comp Metabolic Ory960 ALBUMIN 4.2 g/dL 10/08/2014 Comp Metabolic Cjy344 TPRO 7.1 g/dL 10/08/2014 Comp Metabolic Gnf582 GLOB 2.9 g/dL 10/08/2014 Comp Metabolic Apz410 A/G Ratio 1.4 Ratio 10/08/2014 Comp Metabolic Mks966 Osmo 272 mOsmo 10/08/2014 Tibc Ord40 Iron 108 ug/dl 09/16/2014 Tibc Ord40 UIBC 281 ug/dL 09/16/2014 Tibc Ord40 TIBC 389 ug/dL 09/16/2014 Tibc Ord40 Fe-%Sat 27.8 % 09/16/2014 Comp Metabolic Vwt239 NA 134 mEq/L 09/16/2014 Comp Metabolic Pam096 K 4.6 mEq/L 09/16/2014 Comp Metabolic Gae336 CL 103 mEq/L 09/16/2014 Comp Metabolic Pmd337 CO2 25.0 mEq/L 09/16/2014 Comp Metabolic Hns628 ANION GAP 11 09/16/2014 Comp Metabolic Udw241 GLUCOSE 93 mg/dL 09/16/2014 Comp Metabolic Upb594 Creat 1.2 mg/dL 09/16/2014 Comp Metabolic Uss996 eGFR 65 ml/min/1.73m2 09/16/2014 Comp Metabolic Dsh344 BUN 23 mg/dL 09/16/2014 Comp Metabolic Gmd295 B/C Ratio 19.8 Ratio 09/16/2014 Comp Metabolic Dpg144 CALCIUM 9.1 mg/dL 09/16/2014 Comp Metabolic Csn380 ALK PHOS 73 U/L 09/16/2014 Comp Metabolic Ogb160 AST(SGOT) 18 U/L 09/16/2014 Comp Metabolic Toy143 ALT(SGPT) 16 U/L 09/16/2014 Comp Metabolic Lsr431 BILI T 0.4 mg/dL 09/16/2014 Comp Metabolic Ice014 ALBUMIN 4.0 g/dL 09/16/2014 Comp Metabolic Dnn985 TPRO 7.1 g/dL 09/16/2014 Comp Metabolic Css605 GLOB 3.1 g/dL 09/16/2014 Comp Metabolic Twn207 A/G Ratio 1.3 Ratio 09/16/2014 Comp Metabolic Lsv771 Osmo 272 mOsmo 09/16/2014 Cbc With Differential [...] 09/16/2014 Ferritin Ord22 FERRITIN 36.2 ng/mL 09/16/2014 Folate Ord36 Folate >23.20 ng/mL 09/16/2014 B12 Okf657 B12 554.00 pg/ml 09/16/2014 Culture Urine [id number] URINE CULTURE SEE NOTES 09/08/2014 Urine Culture [...] Ord2 RDW 17.8 % 09/05/2014 Comp Metabolic Lnh198 NA 133 mEq/L 09/05/2014 Comp Metabolic Jvw026 K 4.9 mEq/L 09/05/2014 Comp Metabolic Xwv316 CL 99 mEq/L 09/05/2014 Comp Metabolic Rrz122 CO2 26.0 mEq/L 09/05/2014 Comp Metabolic Wni692 ANION GAP 13 09/05/2014 Comp Metabolic Kor859 GLUCOSE 83 mg/dL 09/05/2014 Comp Metabolic Xxc110 Creat 1.5 mg/dL 09/05/2014 Comp Metabolic Yxa339 eGFR 47 ml/min/1.73m2 09/05/2014 Comp Metabolic Uvl991 BUN 28 mg/dL 09/05/2014 Comp Metabolic Twz550 B/C Ratio 18.3 Ratio 09/05/2014 Comp Metabolic Ige408 CALCIUM 8.9 mg/dL 09/05/2014 Comp Metabolic Ohw110 ALK PHOS 71 U/L 09/05/2014 Comp Metabolic Dxs810 AST(SGOT) 18 U/L 09/05/2014 Comp Metabolic Vpn087 ALT(SGPT) 29 U/L 09/05/2014 Comp Metabolic Sly846 BILI T 0.6 mg/dL 09/05/2014 Comp Metabolic Zbz400 ALBUMIN 3.8 g/dL 09/05/2014 Comp Metabolic Lvt057 TPRO 6.7 g/dL 09/05/2014 Comp Metabolic Osn519 GLOB 2.9 g/dL 09/05/2014 Comp Metabolic Raa268 A/G Ratio 1.3 Ratio 09/05/2014 Comp Metabolic Lfr999 Osmo 271 mOsmo 09/05/2014 Total Psa Ord10 [...] Codes Date URINALYSIS NONAUTO W/O SCOPE CPT-4: 26030 09/18/2015 ADMIN INFLUENZA VIRUS VAC CPT-4: G0008 12/31/2014 FLU VACC PRSV FREE INC ANTIG Formatting Model/CDA Sections, Assigned to/[employer] CPT-4: 34062Mihdxrl 12/31/2014 URINALYSIS NONAUTO W/O SCOPE CPT-4: 30451 12/10/2014 URINALYSIS NONAUTO W/O SCOPE CPT-4: 75463 11/24/2014 ROCEPHIN, PER 250 MG CPT- 4: J0696 09/05/2014 THER/PROPH/DIAG INJ SC/IM CPT-4: 87786 09/05/2014 URINALYSIS NONAUTO W/O SCOPE CPT-4: 29691 09/04/2014 Vital Signs Date Vital 10/07/2016 Blood Pressure 1: 138/60 Code: 8480-6 BMI: 37.2 Code: 56007-7 Heart Rate 1: 79 bpm Height: 5'9" SpO2: 91% Weight: 252 lbs 07/01/2016 Blood Pressure 1: 138/68 Code: 8480-6 BMI: 37.2 Code: 17306-6 Heart Rate 1: 69 bpm Height: 5'9" SpO2: 93% Weight: 252 lbs 05/05/2016 Blood Pressure 1: 136/78 Code: 8480-6 BMI: 39.3 Code: 45630-9 Heart Rate 1: 72 bpm Height: 5'9" SpO2: 97% Weight: 266 lbs 02/23/2016 Blood Pressure 1: 145/70 Code: 8480-6 BMI: 37.5 Code: 39091-8 Heart Rate 1: 80 bpm Height: 5'9" Weight: 254 lbs 09/16/2015 Blood Pressure 1: 140/62 Code: 8480-6 Heart Rate 1: 77 bpm Height: 5'9" SpO2: 93% Weight: 07/24/2015 Blood Pressure 1: 152/68 Code: 8480-6 BMI: 37.7 Code: 11691-1 Heart Rate 1: 73 bpm Height: 5'9" SpO2: 97% Weight: 255 lbs 03/20/2015 Blood Pressure 1: 146/74 Code: 8480-6 BMI: 38.1 Code: 97053-8 Heart Rate 1: 63 bpm Height: 5'9" Weight: 258 lbs 01/13/2015 Blood Pressure 1: 120/58 Code: 8480-6 Heart Rate 1: 52 bpm Height: 5'9" SpO2: 97% Temperature: 37.1 (C) / 98.7 (F) Weight: 12/05/2014 Blood Pressure 1: 134/54 Code: 8480-6 BMI: 36.3 Code: 90778-8 Heart Rate 1: 76 bpm Height: 5'9" SpO2: 93% Weight: 246 lbs 10/03/2014 Blood Pressure 1: 132/60 Code: 8480-6 Heart Rate 1: 76 bpm Height: SpO2: 95% Weight: 254 lbs 09/15/2014 Blood Pressure 1: 120/68 Code: 8480-6 BMI: 37.5 Code: 67145-9 Heart Rate 1: 76 bpm Height: 5'9" SpO2: 93% Weight: 254 lbs 09/05/2014 Blood Pressure 1: 110/50 Code: 8480-6 BMI: 37.4 Code: 96544-7 Heart Rate 1: 79 bpm Height: 5'9" SpO2: 96% Temperature: 36.3 (C) / 97.4 (F) Weight: 253 lbs 07/04/2014 Blood Pressure 1: 138/72 Code: 8480-6 BMI: 37.1 Code: 37656-5 Heart Rate 1: 72 bpm Height: 5'9" [...] discomfort 12/05/2014 occasional ache in chest- seeing lifter/driver in [place]- doing heart cath in October [...] discomfort 10/03/2014 occasional ache in chest- seeing lifter/driver in [place]- doing heart cath in October [...] data Encounters Encounter Performer Location Codes Date ([id number]) [id number] EST. PATIENT, LEVEL III Diagnosis: Cough[ICD10: R05] Diagnosis: Enterocolitis due to Clostridium difficile[ICD10: A04.7] Kavya Aburto MD, [facility] CPT-4: 06354 10/07/2016 ([id number]) [id number] EST. 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 PATIENT, LEVEL III Diagnosis: Cauda equina syndrome[ICD10: G83.4] Diagnosis: Irritable bowel syndrome with diarrhea[ICD10: K58.0] Mary Aburto MD, [facility] CPT-4: 80816 05/05/2016 [id number] EST. PATIENT, LEVEL III Diagnosis: Pain in right shoulder[ICD10: M25.511] Diagnosis: Weakness[ICD10: R53.1] Diagnosis: Shortness of breath[ICD10: R06.02] Mary Aburto MD, [facility] CPT-4: 06221 02/23/2016 [id number] EST. PATIENT, LEVEL III Diagnosis: Essential (primary) hypertension[ICD10: I10] Diagnosis: Other insomnia[ICD10: G47.09] Diagnosis: Irritable bowel syndrome with diarrhea[ICD10: K58.0] Diagnosis: Shortness of breath[ICD10: R06.02] Diagnosis: Weakness[ICD10: R53.1] Mary Aburto MD, [facility] CPT-4: 25255 09/16/2015 [id number] EST. PATIENT, LEVEL III Diagnosis: Diarrhea, unspecified[ICD10: R19.7] Diagnosis: Nausea[ICD10: R11.0] Mary [facility]to MD, [facility] [facility] CPT-4: 98659 07/24/2015 96486 EST. PATIENT, LEVEL IV Diagnosis: Other iron deficiency anemias[ICD10: D50.8] Diagnosis: Rash and other nonspecific skin eruption[ICD10: R21] Diagnosis: Cauda equina syndrome[ICD10: G83.4] Diagnosis: Essential (primary) hypertension[ICD10: I10] Diagnosis: Other pruritus[ICD10: L29.8] Diagnosis: Shortness of breath[ICD10: R06.02] Mary Aburto MD, [facility] CPT-4: 65105 03/20/2015 09046 EST. PATIENT, LEVEL IV Diagnosis: Urinary tract infection, site not specified[ICD10: N39.0] Diagnosis: Umbilical hernia without obstruction or gangrene[ICD10: K42.9] Diagnosis: Cauda equina syndrome[ICD10: G83.4] Mary Aburto MD, [facility] CPT- 4: 58252 01/13/2015 ([id number]) [id number] EST. PATIENT, LEVEL IV Diagnosis: Iron deficiency anemia, unspecified[ICD10: D50.9] Diagnosis: Essential (primary) hypertension[ICD10: I10] Diagnosis: Hematuria, unspecified[ICD10: R31.9] Kavya Aburto MD, [facility] CPT-4: 69264 12/05/2014 ([id number]) 85827 EST. PATIENT, LEVEL IV Diagnosis: ESSENTIAL HYPERTENSION[ICD9: 401.9] Diagnosis: COPD (chronic obstructive pulmonary disease)[ICD9: 496] Diagnosis: ANEMIA[ICD9: 285.9] Diagnosis: SHORTNESS OF BREATH[ICD9: 786.05] Kavya Aburto MD, [facility] CPT- 4: 05648 10/03/2014 ([id number]) 22136 EST. PATIENT, LEVEL IV Diagnosis: ESSENTIAL HYPERTENSION[ICD9: 401.9] Diagnosis: ANEMIA[ICD9: 285.9] Diagnosis: MALAISE AND FATIGUE[ICD9: 780.79] [facility] CPT- 4: 36105 09/15/2014 ([id number]) 80263 EST. PATIENT, LEVEL III Diagnosis: UTI[ICD9: 599.0] Diagnosis: Chronic back pain[ICD9: 724.5] [facility] CPT-4: 37732 09/05/2014 ([id number]) OFFICE VISIT, NEW - LEVEL 4 Diagnosis: ESSENTIAL HYPERTENSION[ICD9: 401.9] Diagnosis: THRUSH[ICD9: 112.0] Diagnosis: Hyperlipidemia[ICD9: 272.4] Diagnosis: COPD (chronic obstructive pulmonary disease)[ICD9: 496] Diagnosis: Cauda equina syndrome[ICD9: 344.60] Diagnosis: History of prostate cancer[ICD9: V10.46] [facility] CPT-4: 47036 07/04/2014 Plan of Care Planned Activity Notes Codes Status Date Visit Plan: Cough-suspect virus-patient to monitor over the weekend-call Monday if symptoms persist and we will do a chest xray and sputum culture Cdiff-treat with flagyl as directed-call if symptoms do not resolve 10/07/2016 Appointment: Kavya Subramanian WPtel: [address] [place], [place] [phone] (30 min) [facility] 10/07/2016 Patient Education: Patient Medication Summary Completed [...] [facility] induced constipation-rx for movantik. 07/01/2016 Appointment: Kavya Subramanian WPtel: [phone] [phone] [place] (30 min) [...] surgery. 05/05/2016 [facility] [phone] [facility] [facility] 05/05/2016 Patient Education: [...] mobility. 02/23/2016 [facility]ment: [facility] [phone] [facility] [place] (30 min) Complex 02/23/2016 Patient Education: Patient Medication Summary Completed 02/23/2016 [facility]ment: [facility] [phone] [facility] [place] (30 min) Complex 02/19/2016 Appointment: Darleen Aburto WPtel: [phone] [facility] [place] (15 min) Moderate 10/14/2015 Appointment: Lab [...] having loose bowel movements. Keep appointment with Manager Deli Make an appointment with lifter/driver - to follow up on shortness of breath. Weakness - pt is to contact Juan Brantley in [facility] and Call clinic when he is [...] not improved. 07/24/2015 Appointment: Kavya Subramanian WPtel: [address] [place], [place] [phone] (30 min) [facility] 07/24/2015 Patient Education: Patient Medication [...] hypertension. 09/15/2014 Appointment: Darleen Abur[facility] WPtel[facility] (15 min) Moderate 09/15/2014 Patient Education: Patient [...] equina-increased incontinence of bowels-recommend follow up with publishing specialist-will discuss repeat MRI with Dr Aburto-keep [...] - will have pt contact [facility] [place]. . Pt complains of abdominal pain, states [...] incontinence of bowels- recommend follow up with publishing specialist-will discuss repeat MRI with Dr Aburto-keep follow up appointment with Dr Aburto in 10 days Nikolai Montalvo to do PT evaluation for motorized wheelchair through [facility] . Cauda equina-chronic back pain-generalized weakness-bilateral shoulder pain/weakness- OA knees-patient to contact juan blancas for mobility paperwork-will ask PT to do a mobility exam through [employer]. Patient is non ambulatory due to cauda [...] details. Drug induced constipation-rx for movantik. [employer] [place] to do PT evaluation for motorized wheelchair through [facility] . Cauda equina-chronic back pain-generalized weakness-right shoulder pain/weakness- patient to contact juan blancas for mobility paperwork-will ask PT to do a mobility exam through [employer] [facility] Drug induced constipation-rx for movantik. . Hypertension [...] Peng 4. Make an appointment with your lifter/driver - to follow up on shortness of breath. 5. Call us when you here about the mobility paperwork and we will fill out the paperwork. [facility] in [facility] . Hypertension - The patient has [...] having loose bowel movements. Keep appointment with Manager Deli Make an appointment with lifter/driver - to follow up on shortness of breath. Weakness - pt is to contact Juan Brantley in [facility] and Call clinic when he is ready to fill out paperwork. . Pt complains of abdominal pain, states [...]
--- OUTSIDE RECORDS SUMMARY | 2018-07-19 10:00 | XMS REPORT | CCD ---
Author Author Kavya Subramanian Organization [facility] Address [address] [place] [address] Phone Care Team Providers Care [employer] Parer Name Role Phone PP Unavailable CCM Unavailable Summary Purpose Interface Exchange Insurance Providers Payer name Policy type / Coverage type Covered republican ID Effective Begin Date Effective End Date WPS Medicare Part B Commercial Insurance [id number] Unknown Unknown HEALTHCHOICE Commercial Insurance [id number] Unknown Unknown Family history Father Diagnosis Age At Onset Coronary Artery Disease Unknown Mother Diagnosis Age At Onset Arthritis Unknown Sister Diagnosis Age At Onset Alzheimer's Disease Unknown Social History Social History Element Codes Description Effective Dates Marital status Unknown 07/04/2014 Number of children Unknown 2 07/04/2014 Living arrangements Unknown House 07/04/[address]: 3273462 Quit over 10 years ago 07/04/2014 Alcohol history Unknown occasionally drinks alcohol 07/04/2014 Frequency of drinks SNOMED CT: 490322555 Drinks rarely 07/04/2014 Allergies, Adverse Reactions, Alerts Substance Reaction Codes Entered Date Inactivated Date Status Iodine rash, pruritis RxNorm: 5933 03/04/2015 No Inactive Date Active tramadol pruritis RxNorm: 67277 07/04/2014 No Inactive Date Active Past Medical History Illness Codes Condition Status Onset Date Resolved Date Cauda equina syndrome ICD- 9: 344.60 ICD-10: G83.4 Active 03/19/2015 Unknown Dysuria ICD-9: 788.1 ICD-10: R30.0 Active 03/30/2017 Unknown Irritable bowel syndrome with diarrhea ICD-9: [...] ICD- 9: 344.60 ICD-10: G83.4 03/19/2015 Active Dysuria ICD-9: 788.1 ICD-10: R30.0 03/30/2017 Active Irritable bowel syndrome with diarrhea ICD-9: [...] Start Date Stop Date Status Fill Instructions Rocephin 1 gram solution for injection RxNorm: 447223 1 Inj daily 04/04/2017 04/10/2017 Active lidocaine (PF) 10 mg/mL (1 %) injection solution RxNorm: 1531529 1 Milliliter(s) Inj daily 04/04/2017 04/10/2017 Active Use to administer rocephin lidocaine (PF) 10 mg/mL (1 %) injection solution RxNorm: 4045550 1 Milliliter(s) Inj daily 04/04/2017 04/03/2017 Inactive Use to administer rocephin Rocephin 1 gram solution for injection RxNorm: 141570 1 Inj daily 04/04/2017 04/03/2017 Inactive Augmentin 500 mg-125 mg tablet RxNorm: 687488 1 Tablet(s) PO TID 03/31/2017 04/03/2017 Inactive Augmentin 500 mg-125 mg tablet RxNorm: 332942 1 Tablet(s) PO TID 03/31/2017 03/30/2017 Inactive Effexor XR 75 mg capsule,extended release RxNorm: 915376 TAKE 3 CAPSULES BY MOUTH EVERY MORNING 03/24/2017 07/21/2017 Active potassium chloride ER 20 mEq tablet,extended release RxNorm: 578172 1 TABLET(S) PO DAILY 03/13/2017 03/07/2018 Active lisinopril 40 mg tablet RxNorm: 975895 TAKE 1 TABLET BY MOUTH DAILY 02/06/2017 11/02/2017 Active pantoprazole 40 mg tablet,delayed release RxNorm: 603228 TAKE 1 TABLET BY MOUTH DAILY 12/19/2016 12/13/2017 Active oxycodone 5 mg tablet RxNorm: 4976277 4 Tablet(s) PO daily 12/19/2016 03/03/2017 Inactive diclofenac sodium 75 mg tablet,delayed release RxNorm: 281058 1 TABLET(S) PO BID 11/17/2016 08/13/2017 Active gabapentin 600 mg tablet RxNorm: 634590 TABLET(S) TAKE 1 TABLET BY MOUTH TWICE DAILY 10/14/2016 04/11/2017 Active Flagyl 500 mg tablet RxNorm: 312321 1 Tablet(s) PO TID 10/07/2016 10/16/2016 Inactive oxycodone 5 mg tablet RxNorm: 0224325 4 Tablet(s) PO daily 10/03/2016 12/16/2016 Inactive Effexor XR 75 mg capsule,extended release RxNorm: 928706 TAKE 3 CAPSULES BY MOUTH EVERY MORNING 09/22/2016 11/20/2016 Inactive Patient requests 90 days supply lisinopril 40 mg tablet RxNorm: 134537 TAKE 1 TABLET BY MOUTH DAILY 08/01/2016 01/27/2017 Inactive Effexor XR 75 mg capsule,extended release RxNorm: 046395 TAKE 3 CAPSULES BY MOUTH EVERY MORNING 07/21/2016 09/21/2016 Inactive oxycodone 5 mg tablet RxNorm: 6442704 4 Tablet(s) PO daily 07/11/2016 09/23/2016 Inactive Movantik 25 mg tablet RxNorm: 2457038 1 Tablet(s) PO daily 07/01/2016 No Stop Date Active potassium chloride ER 20 mEq tablet,extended release RxNorm: 246158 1 TABLET(S) PO DAILY 06/14/2016 03/10/2017 Inactive Flagyl 500 mg tablet RxNorm: 494999 1 Tablet(s) PO TID 06/03/2016 06/12/2016 Inactive Flagyl 500 mg tablet RxNorm: 304642 1 Tablet(s) PO TID 06/03/2016 06/02/2016 Inactive oxycodone 5 mg tablet RxNorm: 6537483 4 Tablet(s) PO daily 04/27/2016 07/10/2016 Inactive Tamiflu 75 mg capsule RxNorm: 793861 1 Capsule(s) PO daily 04/19/2016 04/28/2016 Inactive Tamiflu 75 mg capsule RxNorm: 100904 1 Capsule(s) PO daily 04/19/2016 04/18/2016 Inactive Effexor XR 75 mg capsule,extended release RxNorm: 180019 TAKE 3 CAPSULES BY MOUTH EVERY MORNING 02/18/2016 04/17/2016 Inactive diclofenac sodium 75 mg tablet,delayed release RxNorm: 917033 1 TABLET(S) PO BID 02/18/2016 11/13/2016 Inactive Effexor XR 75 mg capsule,extended release RxNorm: 914538 Capsule(s) TAKE 3 CAPSULES BY MOUTH EVERY MORNING 02/17/2016 08/14/2016 Inactive oxycodone 5 mg tablet RxNorm: 6056600 4 Tablet(s) PO daily 02/04/2016 04/26/2016 Inactive clopidogrel 75 mg tablet RxNorm: 720073 1 TABLET(S) PO QAM 02/01/2016 01/25/2017 Inactive gabapentin 600 mg tablet RxNorm: 540602 Tablet(s) TAKE 1 TABLET BY MOUTH TWICE DAILY 02/01/2016 10/13/2016 Inactive Effexor XR 75 mg capsule,extended release RxNorm: 621420 TAKE 3 CAPSULES BY MOUTH EVERY MORNING 01/11/2016 02/09/2016 Inactive pantoprazole 40 mg tablet,delayed release RxNorm: 937883 TAKE 1 TABLET BY MOUTH DAILY 12/22/2015 12/15/2016 Inactive Effexor XR 75 mg capsule,extended release RxNorm: 169579 TAKE 3 CAPSULES BY MOUTH EVERY MORNING 11/16/2015 01/14/2016 Inactive lisinopril 40 mg tablet RxNorm: 357599 TAKE 1 TABLET BY MOUTH DAILY 11/05/2015 07/31/2016 Inactive Effexor XR 75 mg capsule,extended release RxNorm: 071785 TAKE 3 CAPSULES BY MOUTH EVERY MORNING 09/22/2015 11/20/2015 Inactive Augmentin 500 mg-125 mg tablet RxNorm: 862064 1 Tablet(s) PO TID 09/18/2015 09/24/2015 Inactive Anoro Ellipta 62.5 mcg-25 mcg/actuation powder for inhalation RxNorm: 0406931 1 INH DAILY 08/20/2015 No Stop Date Active Anoro Ellipta 62.5 mcg-25 mcg/actuation powder for inhalation RxNorm: 9225396 1 INH daily 08/20/2015 02/15/2016 Inactive lisinopril 40 mg tablet RxNorm: 264328 TAKE 1 TABLET BY MOUTH DAILY 08/10/2015 11/04/2015 Inactive gabapentin 600 mg tablet RxNorm: 323210 TAKE 1 TABLET BY MOUTH TWICE DAILY 08/10/2015 01/31/2016 Inactive terazosin 2 mg capsule RxNorm: 015867 TAKE ONE CAPSULE BY MOUTH EVERY DAY 07/27/2015 08/29/2016 Inactive hyoscyamine 0.125 mg sublingual tablet RxNorm: 7695900 1 Tablet(s) SL TID as needed 07/24/2015 08/02/2015 Inactive metronidazole 500 mg tablet RxNorm: 325112 1 Tablet(s) PO TID 07/24/2015 07/30/2015 Inactive Effexor XR 75 mg capsule,extended release RxNorm: 541802 TAKE 3 CAPSULES BY MOUTH EVERY MORNING 07/23/2015 09/20/2015 Inactive oxycodone 5 mg tablet RxNorm: 4304304 4 Tablet(s) PO daily 06/26/2015 02/03/2016 Inactive potassium chloride ER 20 mEq tablet,extended release RxNorm: 476986 1 Tablet(s) PO daily 06/25/2015 06/13/2016 Inactive oxycodone 5 mg tablet RxNorm: 0533365 4 Tablet(s) PO daily 04/17/2015 06/25/2015 Inactive rx written Anoro Ellipta 62.5 mcg-25 mcg/actuation powder for inhalation RxNorm: 2281856 1 INH daily 04/17/2015 08/19/2015 Inactive potassium chloride ER 20 mEq tablet,extended release RxNorm: 280227 1 Tablet(s) PO daily 03/23/2015 06/24/2015 Inactive triamcinolone acetonide 0.1 % topical cream RxNorm: 2960130 1 Application TOP BID 03/20/2015 No Stop Date Active carvedilol 12.5 mg tablet RxNorm: 178590 1 TABLET(S) PO BID 02/23/2015 08/21/2015 Inactive diclofenac sodium 75 mg tablet,delayed release RxNorm: 180116 1 Tablet(s) PO BID 02/18/2015 02/12/2016 Inactive carvedilol 12.5 mg tablet RxNorm: 983036 1 Tablet(s) PO BID 02/17/2015 02/11/2016 Inactive furosemide 40 mg tablet RxNorm: 327689 1 Tablet(s) PO daily 02/17/2015 02/11/2016 Inactive lisinopril 40 mg tablet RxNorm: 484820 TAKE 1 TABLET BY MOUTH DAILY 02/16/2015 08/09/2015 Inactive ceftriaxone 1 gram solution for injection RxNorm: 7261307 1 Gram(s) Inj daily mix with lidocaine 01/14/2015 01/17/2015 Inactive please supply 4 bottles of 1gram rocephin IM with 1 bottle of lidocaine 1% for home health to administer to pt starting 01/15 ceftriaxone 1 gram solution for injection RxNorm: 9111220 1 Gram(s) Inj daily 01/14/2015 01/13/2015 Inactive please supply 4 bottles of 1gram rocephin IM with 1 bottle of lidocaine 1% for home health to administer to pt starting 01/15 Augmentin 500 mg-125 mg tablet RxNorm: 845714 1 Tablet(s) PO BID 01/13/2015 01/22/2015 Inactive Keflex 500 mg capsule RxNorm: 861833 1 Capsule(s) PO TID 12/12/2014 12/11/2014 Inactive Keflex 500 mg capsule RxNorm: 626408 1 Capsule(s) PO TID 12/12/2014 12/17/2014 Inactive Augmentin 500 mg-125 mg tablet RxNorm: 366459 1 Tablet(s) PO BID 11/28/2014 12/02/2014 Inactive Augmentin 500 mg-125 mg tablet RxNorm: 061665 1 Tablet(s) PO BID 11/28/2014 11/27/2014 Inactive Cipro 500 mg tablet RxNorm: 843729 1 Tablet(s) PO BID 11/24/2014 11/27/2014 Inactive gabapentin 600 mg tablet RxNorm: 214082 1 Tablet(s) PO BID 11/17/2014 08/13/2015 Inactive gabapentin 600 mg tablet RxNorm: 880118 1 Tablet(s) PO BID 11/17/2014 11/16/2014 Inactive oxycodone 5 mg tablet RxNorm: 6218692 4 Tablet(s) PO daily 11/07/2014 02/04/2015 Inactive rx written Effexor XR 75 mg capsule,extended release RxNorm: 811893 3 Capsule(s) 225 PO QAM 11/05/2014 03/04/2015 Inactive clopidogrel 75 mg tablet RxNorm: 143023 1 Tablet(s) PO QAM 11/05/2014 01/28/2016 Inactive Effexor XR 75 mg capsule,extended release RxNorm: 241176 3 Capsule(s) 225 PO QAM 11/03/2014 11/04/2014 Inactive carvedilol 12.5 mg tablet RxNorm: 617040 1 Tablet(s) PO BID 10/28/2014 02/16/2015 Inactive Effexor XR 75 mg capsule,extended release RxNorm: 077001 3 Capsule(s) 225 PO QAM 10/28/2014 11/02/2014 Inactive Effexor XR 75 mg capsule,extended release RxNorm: 658995 3 Capsule(s) 225 PO QAM 10/28/2014 10/27/2014 Inactive carvedilol 12.5 mg tablet RxNorm: 371989 1 Tablet(s) PO BID 10/28/2014 10/27/2014 Inactive ceftriaxone 1 gram solution for injection RxNorm: 2367463 Inj 09/05/2014 09/05/2014 Inactive Cipro 500 mg tablet RxNorm: 755619 1 Tablet(s) PO BID 09/04/2014 09/03/2014 Inactive Cipro 500 mg tablet RxNorm: 595540 1 Tablet(s) PO BID 09/04/2014 09/10/2014 Inactive oxycodone 5 mg tablet RxNorm: 8979110 4 Tablet(s) PO daily 08/20/2014 11/06/2014 Inactive rx written lisinopril 40 mg tablet RxNorm: 471717 TAKE 1 TABLET BY MOUTH DAILY 08/18/2014 02/13/2015 Inactive nystatin 100,000 unit/mL oral suspension RxNorm: 118964 5 Milliliter(s) PO QID 07/04/2014 07/13/2014 Inactive [SAVINGS FOR NON-COVERED DRUGS -- BIN:[id number], PCN: [id number], Group: [id number], ID# [id number], Questions: . THIS IS NOT INSURANCE.] WelChol 3.75 gram oral powder packet RxNorm: 819299 1 PO BID No Start Date Active amlodipine 10 mg tablet RxNorm: 316151 1 Tablet(s) PO QAM No Start Date Active One A Day oral RxNorm: 23539 oral No Start Date Active Vitamin D2 400 unit capsule RxNorm: 560896 1 Capsule(s) PO daily No Start Date Active aspirin 81 mg tablet,delayed release RxNorm: 604935 1 Tablet(s) PO daily No Start Date Active melatonin 5 mg disintegrating tablet RxNorm: 3753767 1 Tablet(s) PO QHS No Start Date Active clonidine HCl 0.1 mg tablet RxNorm: 982627 1 Tablet(s) PO QHS No Start Date Active hydrochlorothiazide oral RxNorm: 5487 oral No Start Date Active Lasix oral RxNorm: 509746 oral No Start Date 02/17/2015 Inactive potassium chloride 20 meq RxNorm: 588336 PO daily No Start Date 03/22/2015 Inactive oxycodone 5 mg tablet RxNorm: 1630239 3-4 Tablet(s) PO QHS No Start Date 08/19/2014 Inactive terazosin 2 mg capsule RxNorm: 324501 1 Capsule(s) PO daily No Start Date 07/26/2015 Inactive Effexor XR 75 mg capsule,extended release RxNorm: 163883 3 Capsule(s) 225 PO QAM No Start Date 10/27/2014 Inactive gabapentin 600 mg tablet RxNorm: 639550 1 Tablet(s) PO BID No Start Date 11/16/2014 Inactive pantoprazole 40 mg tablet,delayed release RxNorm: 293045 oral No Start Date 12/21/2015 Inactive Anoro Ellipta 62.5 mcg-25 mcg/actuation powder for inhalation RxNorm: 7830851 1 INH daily No Start Date 04/16/2015 Inactive diclofenac sodium 75 mg tablet,delayed release RxNorm: 409847 1 Tablet(s) PO BID No Start Date 02/17/2015 Inactive clopidogrel 75 mg tablet RxNorm: 350553 1 Tablet(s) PO QAM No Start Date 11/04/2014 Inactive lisinopril 40 mg tablet RxNorm: 006058 1 Tablet(s) PO daily No Start Date 08/17/2014 Inactive carvedilol 12.5 mg tablet RxNorm: 225757 1 Tablet(s) PO BID No Start Date 10/27/2014 Inactive Medication Administered Medication Codes Instructions Start Date Status ceftriaxone 1 gram solution for injection RxNorm: 7802154 09/05/2014 No longer Active Immunizations Vaccine Codes Date Status Influenza CVX: 141 12/31/2014 completed Assessments Condition Codes Effective Dates Weakness ICD-10: R53.1 ICD-9: 780.79 03/30/2017 Cauda equina syndrome ICD-10: G83.4 ICD-9: 344.60 03/30/2017 Other malaise ICD-10: R53.81 ICD-9: 780.79 03/30/2017 Dysuria ICD-10: R30.0 ICD-9: 788.1 03/30/2017 Cough ICD-10: R05 ICD-9: 786.2 10/07/2016 [...] 35.4 % 03/30/2017 Cbc With Differential Ord2 MCV 95.9 fl 03/30/2017 Cbc With Differential Ord2 Lymph% 24.1 % 03/30/2017 Cbc With Differential Ord2 MCH 30.9 pg 03/30/2017 Cbc With Differential Ord2 [place]% 13.0 % 03/30/2017 Cbc With Differential Ord2 [...] 1.69 K/ul 03/30/2017 Cbc With Differential Ord2 [place] ABS# 0.9 K/ul 03/30/2017 Cbc With Differential Ord2 Eos ABS# 0.5 K/ul 03/30/2017 Cbc With Differential Ord2 Baso ABS# 0.0 K/ul 03/30/2017 %Hba1C Gwl312 % HbA1c 59017- 6 5.8 % 03/30/2017 %Hba1C Ujy747 Gluc Ave 120 mg/dL 03/30/2017 Comp Metabolic Yyh829 NA 140 mEq/L 03/30/2017 Comp Metabolic Bls715 K 4.0 mEq/L 03/30/2017 Comp Metabolic Bxs017 CL 105 mEq/L 03/30/2017 Comp Metabolic Nmn061 CO2 25.0 mEq/L 03/30/2017 Comp Metabolic Xiv566 ANION GAP 14 03/30/2017 Comp Metabolic Usq007 GLUCOSE 108 mg/dL 03/30/2017 Comp Metabolic Zfy480 Creat 1.2 mg/dL 03/30/2017 Comp Metabolic Fcw298 eGFR 63 ml/min/1.73m2 03/30/2017 Comp Metabolic Lfz069 BUN 20 mg/dL 03/30/2017 Comp Metabolic Dmx912 B/C Ratio 16.9 Ratio 03/30/2017 Comp Metabolic Jql668 CALCIUM 9.2 mg/dL 03/30/2017 Comp Metabolic Ogq309 ALK PHOS 83 U/L 03/30/2017 Comp Metabolic Nkm715 AST(SGOT) 17 U/L 03/30/2017 Comp Metabolic Zde891 ALT(SGPT) 19 U/L 03/30/2017 Comp Metabolic Zlj442 BILI T 0.3 mg/dL 03/30/2017 Comp Metabolic Pnb575 ALBUMIN 3.9 g/dL 03/30/2017 Comp Metabolic Pvy609 TPRO 7.2 g/dL 03/30/2017 Comp Metabolic Lbx534 GLOB 3.3 g/dL 03/30/2017 Comp Metabolic Ohx017 A/G Ratio 1.2 Ratio 03/30/2017 Comp Metabolic Oko586 Osmo 283 mOsmo 03/30/2017 Tsh Ord6 TSH (3rd IS) 1.40 uIU/mL 03/30/2017 Clostridium Diff Tox A/B Scy728 Cdiff Positive 06/03/2016 Total Psa PSA 1.53 [...] 27.4 % 03/20/2015 Cbc With Differential Ord2 [place]% 12.8 % 03/20/2015 Cbc With Differential Ord2 [...] 1.69 K/ul 03/20/2015 Cbc With Differential Ord2 [place] ABS# 0.8 K/ul 03/20/2015 Cbc With Differential Ord2 Eos ABS# 0.6 K/ul 03/20/2015 Cbc With Differential Ord2 Baso ABS# 0.0 K/ul 03/20/2015 Cbc With Differential Ord2 New Analyzer Notice Please note new ref ranges starting 03-04-2015 due to implemntation of new five part differential hematolgy analyzer. 03/20/2015 Total Psa Ord10 PSA 2.25 ng/mL 02/26/2015 Comp Metabolic Wnt549 NA 138 mEq/L 02/26/2015 Comp Metabolic Mec495 K 4.0 mEq/L 02/26/2015 Comp Metabolic Cac182 CL 103 mEq/L 02/26/2015 Comp Metabolic Rfb797 CO2 28.0 mEq/L 02/26/2015 Comp Metabolic Xmy683 ANION GAP 11 02/26/2015 Comp Metabolic Brw504 GLUCOSE 95 mg/dL 02/26/2015 Comp Metabolic Jda971 Creat 1.0 mg/dL 02/26/2015 Comp Metabolic Cyc345 eGFR 74 ml/min/1.73m2 02/26/2015 Comp Metabolic Yun613 BUN 19 mg/dL 02/26/2015 Comp Metabolic Msw757 B/C Ratio 18.3 Ratio 02/26/2015 Comp Metabolic Fro605 CALCIUM 9.1 mg/dL 02/26/2015 Comp Metabolic Din334 ALK PHOS 87 U/L 02/26/2015 Comp Metabolic Zbt136 AST(SGOT) 22 U/L 02/26/2015 Comp Metabolic Xal938 ALT(SGPT) 24 U/L 02/26/2015 Comp Metabolic Iso968 BILI T 0.4 mg/dL 02/26/2015 Comp Metabolic Myp437 ALBUMIN 4.0 g/dL 02/26/2015 Comp Metabolic Pna869 TPRO 7.4 g/dL 02/26/2015 Comp Metabolic Shl464 GLOB 3.4 g/dL 02/26/2015 Comp Metabolic Vks240 A/G Ratio 1.2 Ratio 02/26/2015 Comp Metabolic Lcf226 Osmo 278 mOsmo 02/26/2015 Culture Urine [id number] URINE CULTURE SEE NOTES 12/15/2014 Culture Urine [id number] Continued Results 12/15/2014 Urine Culture Ucult Complete >100,000 col/ml aerobic growth sent to ref lab 12/12/2014 Comp Metabolic Gdr642 NA 136 mEq/L 12/05/2014 Comp Metabolic Ljk991 K 4.3 mEq/L 12/05/2014 Comp Metabolic Mis936 CL 104 mEq/L 12/05/2014 Comp Metabolic Lnj179 CO2 29.0 mEq/L 12/05/2014 Comp Metabolic Zmd245 ANION GAP 7 12/05/2014 Comp Metabolic Sio452 GLUCOSE 80 mg/dL 12/05/2014 Comp Metabolic Wcb706 Creat 1.1 mg/dL 12/05/2014 Comp Metabolic Xov595 eGFR 68 ml/min/1.73m2 12/05/2014 Comp Metabolic Lwh905 BUN 21 mg/dL 12/05/2014 Comp Metabolic Ykk525 B/C Ratio 18.8 Ratio 12/05/2014 Comp Metabolic Adm463 CALCIUM 9.3 mg/dL 12/05/2014 Comp Metabolic Nqi347 ALK PHOS 81 U/L 12/05/2014 Comp Metabolic Hix929 AST(SGOT) 17 U/L 12/05/2014 Comp Metabolic Zkl490 ALT(SGPT) 16 U/L 12/05/2014 Comp Metabolic Ijv336 BILI T 0.3 mg/dL 12/05/2014 Comp Metabolic Axq304 ALBUMIN 4.0 g/dL 12/05/2014 Comp Metabolic Ldx161 TPRO 6.9 g/dL 12/05/2014 Comp Metabolic Dht910 GLOB 2.9 g/dL 12/05/2014 Comp Metabolic Vxq304 A/G Ratio 1.4 Ratio 12/05/2014 Comp Metabolic Uwa592 Osmo 274 mOsmo 12/05/2014 Cbc With Differential [...] Ord2 RDW 15.0 % 12/05/2014 Culture Urine [id number] URINE CULTURE SEE NOTES 11/27/2014 Culture Urine [id number] Continued Results 11/27/2014 Urine Culture Ucult Complete Growth of aerobe sent to ref lab 11/25/2014 B Type Natriuretic Peptide Obi5565 B-[employer] 121.00 pg/ml 10/08/2014 Cbc With Differential Ord2 [...] Folate Ord36 Folate 22.12 ng/mL 10/08/2014 B12 Qsk672 B12 >1500.00 pg/ml 10/08/2014 Comp Metabolic Inn627 NA 135 mEq/L 10/08/2014 Comp Metabolic Gzx137 K 4.5 mEq/L 10/08/2014 Comp Metabolic Etz216 CL 104 mEq/L 10/08/2014 Comp Metabolic Btr799 CO2 25.0 mEq/L 10/08/2014 Comp Metabolic Anf357 ANION GAP 11 10/08/2014 Comp Metabolic Hhh874 GLUCOSE 73 mg/dL 10/08/2014 Comp Metabolic Lqj115 Creat 1.1 mg/dL 10/08/2014 Comp Metabolic Rki087 eGFR 71 ml/min/1.73m2 10/08/2014 Comp Metabolic Zuy946 BUN 21 mg/dL 10/08/2014 Comp Metabolic Mcw025 B/C Ratio 19.4 Ratio 10/08/2014 Comp Metabolic Ahk731 CALCIUM 9.0 mg/dL 10/08/2014 Comp Metabolic Rlh973 ALK PHOS 73 U/L 10/08/2014 Comp Metabolic Oin711 AST(SGOT) 15 U/L 10/08/2014 Comp Metabolic Jxc451 ALT(SGPT) 14 U/L 10/08/2014 Comp Metabolic Ycd906 BILI T 0.4 mg/dL 10/08/2014 Comp Metabolic Rip952 ALBUMIN 4.2 g/dL 10/08/2014 Comp Metabolic Nfw418 TPRO 7.1 g/dL 10/08/2014 Comp Metabolic Lsa138 GLOB 2.9 g/dL 10/08/2014 Comp Metabolic Wkl808 A/G Ratio 1.4 Ratio 10/08/2014 Comp Metabolic Bua609 Osmo 272 mOsmo 10/08/2014 B12 Ouy723 B12 554.00 pg/ml 09/16/2014 Tibc Ord40 Iron 108 ug/dl 09/16/2014 Tibc Ord40 UIBC 281 ug/dL 09/16/2014 Tibc Ord40 TIBC 389 ug/dL 09/16/2014 Tibc Ord40 Fe-%Sat 27.8 % 09/16/2014 Folate Ord36 Folate >23.20 ng/mL 09/16/2014 Comp Metabolic Ijr992 NA 134 mEq/L 09/16/2014 Comp Metabolic Zda086 K 4.6 mEq/L 09/16/2014 Comp Metabolic Sel923 CL 103 mEq/L 09/16/2014 Comp Metabolic Ljo866 CO2 25.0 mEq/L 09/16/2014 Comp Metabolic Tuh824 ANION GAP 11 09/16/2014 Comp Metabolic Xiz156 GLUCOSE 93 mg/dL 09/16/2014 Comp Metabolic Nmj889 Creat 1.2 mg/dL 09/16/2014 Comp Metabolic Qir041 eGFR 65 ml/min/1.73m2 09/16/2014 Comp Metabolic Hng736 BUN 23 mg/dL 09/16/2014 Comp Metabolic Dle197 B/C Ratio 19.8 Ratio 09/16/2014 Comp Metabolic Raw013 CALCIUM 9.1 mg/dL 09/16/2014 Comp Metabolic Lkc222 ALK PHOS 73 U/L 09/16/2014 Comp Metabolic Hwb251 AST(SGOT) 18 U/L 09/16/2014 Comp Metabolic Xxb902 ALT(SGPT) 16 U/L 09/16/2014 Comp Metabolic Rfa041 BILI T 0.4 mg/dL 09/16/2014 Comp Metabolic Vjn468 ALBUMIN 4.0 g/dL 09/16/2014 Comp Metabolic Izl292 TPRO 7.1 g/dL 09/16/2014 Comp Metabolic Xnp466 GLOB 3.1 g/dL 09/16/2014 Comp Metabolic Sme969 A/G Ratio 1.3 Ratio 09/16/2014 Comp Metabolic Xmu946 Osmo 272 mOsmo 09/16/2014 Cbc With Differential [...] Ord22 FERRITIN 36.2 ng/mL 09/16/2014 Culture Urine [id number] URINE CULTURE SEE NOTES 09/08/2014 Urine Culture [...] Ord2 RDW 17.8 % 09/05/2014 Comp Metabolic Coh904 NA 133 mEq/L 09/05/2014 Comp Metabolic Shv560 K 4.9 mEq/L 09/05/2014 Comp Metabolic Kke727 CL 99 mEq/L 09/05/2014 Comp Metabolic Byh330 CO2 26.0 mEq/L 09/05/2014 Comp Metabolic Ouj246 ANION GAP 13 09/05/2014 Comp Metabolic Ylp739 GLUCOSE 83 mg/dL 09/05/2014 Comp Metabolic Gdv027 Creat 1.5 mg/dL 09/05/2014 Comp Metabolic Zwr157 eGFR 47 ml/min/1.73m2 09/05/2014 Comp Metabolic Sfn856 BUN 28 mg/dL 09/05/2014 Comp Metabolic Dye358 B/C Ratio 18.3 Ratio 09/05/2014 Comp Metabolic Rfi545 CALCIUM 8.9 mg/dL 09/05/2014 Comp Metabolic Kov202 ALK PHOS 71 U/L 09/05/2014 Comp Metabolic Wux824 AST(SGOT) 18 U/L 09/05/2014 Comp Metabolic Mpz486 ALT(SGPT) 29 U/L 09/05/2014 Comp Metabolic Eib784 BILI T 0.6 mg/dL 09/05/2014 Comp Metabolic Vba463 ALBUMIN 3.8 g/dL 09/05/2014 Comp Metabolic Bas795 TPRO 6.7 g/dL 09/05/2014 Comp Metabolic Clr383 GLOB 2.9 g/dL 09/05/2014 Comp Metabolic Bfa390 A/G Ratio 1.3 Ratio 09/05/2014 Comp Metabolic Dux942 Osmo 271 mOsmo 09/05/2014 Total Psa Ord10 [...] clear 12/05/2014 None Full Exam - General 1995 Ears/Nose/Throat [...] clear 10/03/2014 None Full Exam - General 1995 Ears/Nose/Throat [...] Codes Date URINALYSIS NONAUTO W/O SCOPE CPT-4: 73168 09/18/2015 ADMIN INFLUENZA VIRUS VAC CPT-4: G0008 12/31/2014 FLU VACC PRSV FREE INC ANTIG Formatting Model/CDA Sections, Assigned to/[employer] CPT-4: 30118Puwobds 12/31/2014 URINALYSIS NONAUTO W/O SCOPE CPT-4: 61344 12/10/2014 URINALYSIS NONAUTO W/O SCOPE CPT-4: 71290 11/24/2014 ROCEPHIN, PER 250 MG CPT- 4: J0696 09/05/2014 THER/PROPH/DIAG INJ SC/IM CPT-4: 36313 09/05/2014 URINALYSIS NONAUTO W/O SCOPE CPT-4: 32582 09/04/2014 Vital Signs Date Vital 03/30/2017 Blood Pressure 1: 130/66 Code: 8480-6 Heart Rate 1: 70 bpm Height: 5'9" SpO2: 97% Weight: 10/07/2016 Blood Pressure 1: 138/60 Code: 8480-6 BMI: 37.2 Code: 87872-6 Heart Rate 1: 79 bpm Height: 5'9" SpO2: 91% Weight: 252 lbs 07/01/2016 Blood Pressure 1: 138/68 Code: 8480-6 BMI: 37.2 Code: 88005-2 Heart Rate 1: 69 bpm Height: 5'9" SpO2: 93% Weight: 252 lbs 05/05/2016 Blood Pressure 1: 136/78 Code: 8480-6 BMI: 39.3 Code: 79306-1 Heart Rate 1: 72 bpm Height: 5'9" SpO2: 97% Weight: 266 lbs 02/23/2016 Blood Pressure 1: 145/70 Code: 8480-6 BMI: 37.5 Code: 42904-2 Heart Rate 1: 80 bpm Height: 5'9" Weight: 254 lbs 09/16/2015 Blood Pressure 1: 140/62 Code: 8480-6 Heart Rate 1: 77 bpm Height: 5'9" SpO2: 93% Weight: 07/24/2015 Blood Pressure 1: 152/68 Code: 8480-6 BMI: 37.7 Code: 62595-4 Heart Rate 1: 73 bpm Height: 5'9" SpO2: 97% Weight: 255 lbs 03/20/2015 Blood Pressure 1: 146/74 Code: 8480-6 BMI: 38.1 Code: 36624-1 Heart Rate 1: 63 bpm Height: 5'9" Weight: 258 lbs 01/13/2015 Blood Pressure 1: 120/58 Code: 8480-6 Heart Rate 1: 52 bpm Height: 5'9" SpO2: 97% Temperature: 37.1 (C) / 98.7 (F) Weight: 12/05/2014 Blood Pressure 1: 134/54 Code: 8480-6 BMI: 36.3 Code: 59901-3 Heart Rate 1: 76 bpm Height: 5'9" SpO2: 93% Weight: 246 lbs 10/03/2014 Blood Pressure 1: 132/60 Code: 8480-6 Heart Rate 1: 76 bpm Height: SpO2: 95% Weight: 254 lbs 09/15/2014 Blood Pressure 1: 120/68 Code: 8480-6 BMI: 37.5 Code: 77003-2 Heart Rate 1: 76 bpm Height: 5'9" SpO2: 93% Weight: 254 lbs 09/05/2014 Blood Pressure 1: 110/50 Code: 8480-6 BMI: 37.4 Code: 11069-6 Heart Rate 1: 79 bpm Height: 5'9" SpO2: 96% Temperature: 36.3 (C) / 97.4 (F) Weight: 253 lbs 07/04/2014 Blood Pressure 1: 138/72 Code: 8480-6 BMI: 37.1 Code: 18986-6 Heart Rate 1: 72 bpm Height: 5'9" [...] discomfort 12/05/2014 occasional ache in chest- seeing program manager transportation in [place]- doing heart cath in October [...] discomfort 10/03/2014 occasional ache in chest- seeing program manager transportation in [place]- doing heart cath in October [...] G83.4] Diagnosis: Weakness[ICD10: R53.1] Mary Aburto MD, [facility] CPT-4: 70478 03/30/2017 ([id number]) [id number] EST. PATIENT, LEVEL III Diagnosis: Cough[ICD10: R05] Diagnosis: Enterocolitis due to Clostridium difficile[ICD10: A04.7] Kavya Aburto MD, [facility] CPT-4: 70388 10/07/2016 ([id number]) 54274 EST. 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 PATIENT, LEVEL III Diagnosis: Cauda equina syndrome[ICD10: G83.4] Diagnosis: Irritable bowel syndrome with diarrhea[ICD10: K58.0] Mary Aburto MD, [facility] CPT-4: 87110 05/05/2016 72548 EST. PATIENT, LEVEL III Diagnosis: Pain in right shoulder[ICD10: M25.511] Diagnosis: Weakness[ICD10: R53.1] Diagnosis: Shortness of breath[ICD10: R06.02] Mary Aburto MD, [facility] CPT-4: 02918 02/23/2016 23069 EST. PATIENT, LEVEL III Diagnosis: Essential (primary) hypertension[ICD10: I10] Diagnosis: Other insomnia[ICD10: G47.09] Diagnosis: Irritable bowel syndrome with diarrhea[ICD10: K58.0] Diagnosis: Shortness of breath[ICD10: R06.02] Diagnosis: Weakness[ICD10: R53.1] Mary Aburto MD, [facility] CPT-4: 24413 09/16/2015 79050 EST. PATIENT, LEVEL III Diagnosis: Diarrhea, unspecified[ICD10: R19.7] Diagnosis: Nausea[ICD10: R11.0] Mary Aburto MD, [facility] CPT-4: 80663 07/24/2015 16570 EST. PATIENT, LEVEL IV Diagnosis: Other iron deficiency anemias[ICD10: D50.8] Diagnosis: Rash and other nonspecific skin eruption[ICD10: R21] Diagnosis: Cauda equina syndrome[ICD10: G83.4] Diagnosis: Essential (primary) hypertension[ICD10: I10] Diagnosis: Other pruritus[ICD10: L29.8] Diagnosis: Shortness of breath[ICD10: R06.02] Mary Aburto MD, [facility] CPT-4: 35563 03/20/2015 43003 EST. PATIENT, LEVEL IV Diagnosis: Urinary tract infection, site not specified[ICD10: N39.0] Diagnosis: Umbilical hernia without obstruction or gangrene[ICD10: K42.9] Diagnosis: Cauda equina syndrome[ICD10: G83.4] Mary Aburto MD, [facility] CPT- 4: 76725 01/13/2015 ([id number]) 17846 EST. PATIENT, LEVEL IV Diagnosis: Iron deficiency anemia, unspecified[ICD10: D50.9] Diagnosis: Essential (primary) hypertension[ICD10: I10] Diagnosis: Hematuria, unspecified[ICD10: R31.9] Kavya Aburto MD, [facility] CPT-4: 08674 12/05/2014 ([id number]) 70552 EST. PATIENT, LEVEL IV Diagnosis: ESSENTIAL HYPERTENSION[ICD9: 401.9] Diagnosis: COPD (chronic obstructive pulmonary disease)[ICD9: 496] Diagnosis: ANEMIA[ICD9: 285.9] Diagnosis: SHORTNESS OF BREATH[ICD9: 786.05] Kavya Aburto MD, [facility] CPT- 4: 14342 10/03/2014 ([id number]) 54884 EST. PATIENT, LEVEL IV Diagnosis: ESSENTIAL HYPERTENSION[ICD9: 401.9] Diagnosis: ANEMIA[ICD9: 285.9] Diagnosis: MALAISE AND FATIGUE[ICD9: 780.79] Darleen Aburto MD, [facility] CPT- 4: 68778 09/15/2014 ([id number]) 40954 EST. PATIENT, LEVEL III Diagnosis: UTI[ICD9: 599.0] Diagnosis: Chronic back pain[ICD9: 724.5] Kavya Aburto MD, [facility] CPT-4: 85194 09/05/2014 ([id number]) OFFICE VISIT, NEW - LEVEL 4 Diagnosis: ESSENTIAL HYPERTENSION[ICD9: 401.9] Diagnosis: THRUSH[ICD9: 112.0] Diagnosis: Hyperlipidemia[ICD9: 272.4] Diagnosis: COPD (chronic obstructive pulmonary disease)[ICD9: 496] Diagnosis: Cauda equina syndrome[ICD9: 344.60] Diagnosis: History of prostate cancer[ICD9: V10.46] Kavya Aburto MD, [facility] CPT-4: 36759 07/04/2014 Plan of Care Planned Activity Notes Codes Status Date Visit Plan: Cauda Equina, weakness, gait instability [...] not improve. 03/30/2017 Appointment: Mary Alan WPtel: [address] [place], [place] [phone] (30 min) Complex 03/30/2017 Patient Education: Patient Medication Summary Completed 03/30/2017 Visit Plan: Cough-suspect virus-patient to monitor over the weekend-call Monday if symptoms persist and we will do a chest xray and sputum culture Cdiff-treat with flagyl as directed-call if symptoms do not resolve 10/07/2016 Appointment: Kavya Subramanian WPtel: [phone] (30 min) Complex 10/07/2016 Patient Education: Patient Medication Summary Completed 10/07/2016 Patient Education: Obesity Completed 10/07/2016 Visit Plan: Cauda equina-chronic back pain-generalized weakness- right shoulder pain/weakness-patient to contact [facility] for mobility paperwork-will ask PT to do a mobility exam through [facility] Drug induced constipation-rx for [employer]. 07/01/2016 Visit Plan: Cauda equina-chronic back pain-generalized weakness- bilateral shoulder pain/weakness-OA knees-patient to contact [facility] for mobility paperwork-will ask PT to do a mobility exam through [facility] [employer]. Patient is non ambulatory due to cauda [...] [employer]. 07/01/2016 Appointment: Kavya Subramanian WPtel: [phone] (30 min) Complex 07/01/2016 Patient Education: Patient [...] his surgery. 05/05/2016 Appointment: Mary Alan WPtel: [address] [place], [place] [phone] Surgical Clearance 05/05/2016 Patient Education: Patient Medication [...] godoy. 02/23/2016 Appointment: Mary Alan WPtel: [phone] [phone] (30 min) Complex 02/23/2016 Patient Education: Patient Medication Summary Completed 02/23/2016 Appointment: [phone] ([facility] min) Complex 02/19/2016 App[facility]ment[phone] (15 min) Moderate 10/14/2015 Appointment: Lab Draw [...] having loose bowel movements. Keep appointment with Log Sorting Supervisor Make an appointment with program manager transportation - to follow up on shortness of breath. Weakness - pt is to contact Ramez Goldman Fercho in [facility] and Call clinic when he is ready [...] not improved. 07/24/2015 Appointment: Kavya Subramanian WPtel: [address] [place], [place] [phone] (30 min) Complex 07/24/2015 Patient Education: Patient [...] hypertension. 09/15/2014 Appointment: Darleen Aburto WPtel: [facility] (15 min) Moderate 09/15/2014 Patient Education: Patient [...] equina-increased incontinence of bowels-recommend follow up with multimedia specialist-will discuss repeat MRI with Dr Aburto-keep [...] do PT evaluation for motorized wheelchair through [employer] . Cauda equina-chronic back pain-generalized weakness-right shoulder pain/weakness- patient to contact [employer] for mobility paperwork-will ask PT to do a mobility exam through [employer] Drug induced constipation-rx for [employer]antik. [employer] Ferron to do PT evaluation for motorized wheelchair through [employer] . Cauda equina-chronic back pain-generalized weakness-bilateral shoulder pain/weakness- OA knees-patient to contact [facility] for mobility paperwork-will ask PT to do a mobility exam through [employer]. Patient is non ambulatory due to cauda [...] incontinence of bowels- recommend follow up with multimedia specialist-will discuss repeat MRI with Dr Aburto-keep [...] will have pt contact Ramez godoy. . Cauda Equina, weakness, gait instability [...] to call if symptoms do not improve. 1. check your blood pressures 3 times [...] Peng 4. Make an appointment with your program manager transportation - to follow up on shortness of breath. 5. Call us when you here about the mobility paperwork and we will fill out the paperwork. Ramezjayson Godoy in [facility] . Hypertension - The patient has been [...] having loose bowel movements. Keep appointment with Log Sorting Supervisor Make an appointment with program manager transportation - to follow up on shortness of breath. Weakness - pt is to contact Ramez Goldman Fercho in [facility] and Call clinic when he is ready [...]
--- OUTSIDE RECORDS SUMMARY | 2018-07-19 10:03 | XMS REPORT | CCD ---
Author Author Kavya Subramanian Organization [facility] Address [address] [place] [address] Phone Care Team Providers Care Adjunct History Instructor Name Role Phone PP Unavailable CCM Unavailable Summary Purpose Interface Exchange Insurance Providers Payer name Policy type / Coverage type Covered alliance party ID Effective Begin Date Effective End Date WPS Medicare Part B Commercial Insurance [id number] Unknown Unknown [employer]ICE Commercial Insurance [id number] Unknown Unknown Family history Father Diagnosis Age At Onset Coronary Artery Disease Unknown Mother Diagnosis Age At Onset Arthritis Unknown Sister Diagnosis Age At Onset Alzheimer's Disease Unknown Social History Social History Element Codes Description Effective Dates Marital status Unknown 07/04/2014 Number of children Unknown 2 07/04/2014 Living arrangements Unknown House 07/04/[address]: 4095906 Quit over 10 years ago 07/04/2014 Alcohol history Unknown occasionally drinks alcohol 07/04/2014 Frequency of drinks SNOMED CT: 556056632 Drinks rarely 07/04/2014 Allergies, Adverse Reactions, Alerts Substance Reaction Codes Entered Date Inactivated Date Status Iodine rash, pruritis RxNorm: 5933 03/04/2015 No Inactive Date Active tramadol pruritis RxNorm: 12009 07/04/2014 No Inactive Date Active Past Medical [...] Rocephin 1 gram solution for injection RxNorm: 099800 1 Inj daily 04/05/2017 04/11/2017 Active lidocaine (PF) 10 mg/mL (1 %) injection solution RxNorm: 4284284 1 Milliliter(s) Inj daily 04/04/2017 04/10/2017 Active Use to administer rocephin Rocephin 1 gram solution for injection RxNorm: 245253 1 Inj daily 04/04/2017 04/04/2017 Inactive lidocaine (PF) 10 mg/mL (1 %) injection solution RxNorm: 0850152 1 Milliliter(s) Inj daily 04/04/2017 04/03/2017 Inactive Use to administer rocephin Rocephin 1 gram solution for injection RxNorm: 188265 1 Inj daily 04/04/2017 04/03/2017 Inactive Augmentin 500 mg-125 mg tablet RxNorm: 944993 1 Tablet(s) PO TID 03/31/2017 04/03/2017 Inactive Augmentin 500 mg-125 mg tablet RxNorm: 482868 1 Tablet(s) PO TID 03/31/2017 03/30/2017 Inactive Effexor XR 75 mg capsule,extended release RxNorm: 354076 TAKE 3 CAPSULES BY MOUTH EVERY MORNING 03/24/2017 07/21/2017 Active potassium chloride ER 20 mEq tablet,extended release RxNorm: 521320 1 TABLET(S) PO DAILY 03/13/2017 03/07/2018 Active lisinopril 40 mg tablet RxNorm: 815792 TAKE 1 TABLET BY MOUTH DAILY 02/06/2017 11/02/2017 Active pantoprazole 40 mg tablet,delayed release RxNorm: 596829 TAKE 1 TABLET BY MOUTH DAILY 12/19/2016 12/13/2017 Active oxycodone 5 mg tablet RxNorm: 4371388 4 Tablet(s) PO daily 12/19/2016 03/03/2017 Inactive diclofenac sodium 75 mg tablet,delayed release RxNorm: 826031 1 TABLET(S) PO BID 11/17/2016 08/13/2017 Active gabapentin 600 mg tablet RxNorm: 534437 TABLET(S) TAKE 1 TABLET BY MOUTH TWICE DAILY 10/14/2016 04/11/2017 Active Flagyl 500 mg tablet RxNorm: 764177 1 Tablet(s) PO TID 10/07/2016 10/16/2016 Inactive oxycodone 5 mg tablet RxNorm: 4934608 4 Tablet(s) PO daily 10/03/2016 12/16/2016 Inactive Effexor XR 75 mg capsule,extended release RxNorm: 015686 TAKE 3 CAPSULES BY MOUTH EVERY MORNING 09/22/2016 11/20/2016 Inactive Patient requests 90 days supply lisinopril 40 mg tablet RxNorm: 408582 TAKE 1 TABLET BY MOUTH DAILY 08/01/2016 01/27/2017 Inactive Effexor XR 75 mg capsule,extended release RxNorm: 186220 TAKE 3 CAPSULES BY MOUTH EVERY MORNING 07/21/2016 09/21/2016 Inactive oxycodone 5 mg tablet RxNorm: 7872339 4 Tablet(s) PO daily 07/11/2016 09/23/2016 Inactive Movantik 25 mg tablet RxNorm: 8565024 1 Tablet(s) PO daily 07/01/2016 No Stop Date Active potassium chloride ER 20 mEq tablet,extended release RxNorm: 800102 1 TABLET(S) PO DAILY 06/14/2016 03/10/2017 Inactive Flagyl 500 mg tablet RxNorm: 986237 1 Tablet(s) PO TID 06/03/2016 06/12/2016 Inactive Flagyl 500 mg tablet RxNorm: 093088 1 Tablet(s) PO TID 06/03/2016 06/02/2016 Inactive oxycodone 5 mg tablet RxNorm: 7347776 4 Tablet(s) PO daily 04/27/2016 07/10/2016 Inactive Tamiflu 75 mg capsule RxNorm: 750672 1 Capsule(s) PO daily 04/19/2016 04/28/2016 Inactive Tamiflu 75 mg capsule RxNorm: 550408 1 Capsule(s) PO daily 04/19/2016 04/18/2016 Inactive Effexor XR 75 mg capsule,extended release RxNorm: 887773 TAKE 3 CAPSULES BY MOUTH EVERY MORNING 02/18/2016 04/17/2016 Inactive diclofenac sodium 75 mg tablet,delayed release RxNorm: 147752 1 TABLET(S) PO BID 02/18/2016 11/13/2016 Inactive Effexor XR 75 mg capsule,extended release RxNorm: 473542 Capsule(s) TAKE 3 CAPSULES BY MOUTH EVERY MORNING 02/17/2016 08/14/2016 Inactive oxycodone 5 mg tablet RxNorm: 7635612 4 Tablet(s) PO daily 02/04/2016 04/26/2016 Inactive clopidogrel 75 mg tablet RxNorm: 221984 1 TABLET(S) PO QAM 02/01/2016 01/25/2017 Inactive gabapentin 600 mg tablet RxNorm: 400284 Tablet(s) TAKE 1 TABLET BY MOUTH TWICE DAILY 02/01/2016 10/13/2016 Inactive Effexor XR 75 mg capsule,extended release RxNorm: 975431 TAKE 3 CAPSULES BY MOUTH EVERY MORNING 01/11/2016 02/09/2016 Inactive pantoprazole 40 mg tablet,delayed release RxNorm: 830916 TAKE 1 TABLET BY MOUTH DAILY 12/22/2015 12/15/2016 Inactive Effexor XR 75 mg capsule,extended release RxNorm: 350732 TAKE 3 CAPSULES BY MOUTH EVERY MORNING 11/16/2015 01/14/2016 Inactive lisinopril 40 mg tablet RxNorm: 522178 TAKE 1 TABLET BY MOUTH DAILY 11/05/2015 07/31/2016 Inactive Effexor XR 75 mg capsule,extended release RxNorm: 195046 TAKE 3 CAPSULES BY MOUTH EVERY MORNING 09/22/2015 11/20/2015 Inactive Augmentin 500 mg-125 mg tablet RxNorm: 356865 1 Tablet(s) PO TID 09/18/2015 09/24/2015 Inactive Anoro Ellipta 62.5 mcg-25 mcg/actuation powder for inhalation RxNorm: 0911876 1 INH DAILY 08/20/2015 No Stop Date Active Anoro Ellipta 62.5 mcg-25 mcg/actuation powder for inhalation RxNorm: 6194549 1 INH daily 08/20/2015 02/15/2016 Inactive lisinopril 40 mg tablet RxNorm: 253801 TAKE 1 TABLET BY MOUTH DAILY 08/10/2015 11/04/2015 Inactive gabapentin 600 mg tablet RxNorm: 699501 TAKE 1 TABLET BY MOUTH TWICE DAILY 08/10/2015 01/31/2016 Inactive terazosin 2 mg capsule RxNorm: 045791 TAKE ONE CAPSULE BY MOUTH EVERY DAY 07/27/2015 08/29/2016 Inactive hyoscyamine 0.125 mg sublingual tablet RxNorm: 1598821 1 Tablet(s) SL TID as needed 07/24/2015 08/02/2015 Inactive metronidazole 500 mg tablet RxNorm: 341451 1 Tablet(s) PO TID 07/24/2015 07/30/2015 Inactive Effexor XR 75 mg capsule,extended release RxNorm: 729826 TAKE 3 CAPSULES BY MOUTH EVERY MORNING 07/23/2015 09/20/2015 Inactive oxycodone 5 mg tablet RxNorm: 4960357 4 Tablet(s) PO daily 06/26/2015 02/03/2016 Inactive potassium chloride ER 20 mEq tablet,extended release RxNorm: 235478 1 Tablet(s) PO daily 06/25/2015 06/13/2016 Inactive oxycodone 5 mg tablet RxNorm: 1028466 4 Tablet(s) PO daily 04/17/2015 06/25/2015 Inactive rx written Anoro Ellipta 62.5 mcg-25 mcg/actuation powder for inhalation RxNorm: 7058477 1 INH daily 04/17/2015 08/19/2015 Inactive potassium chloride ER 20 mEq tablet,extended release RxNorm: 517994 1 Tablet(s) PO daily 03/23/2015 06/24/2015 Inactive triamcinolone acetonide 0.1 % topical cream RxNorm: 2911873 1 Application TOP BID 03/20/2015 No Stop Date Active carvedilol 12.5 mg tablet RxNorm: 161084 1 TABLET(S) PO BID 02/23/2015 08/21/2015 Inactive diclofenac sodium 75 mg tablet,delayed release RxNorm: 326969 1 Tablet(s) PO BID 02/18/2015 02/12/2016 Inactive carvedilol 12.5 mg tablet RxNorm: 067353 1 Tablet(s) PO BID 02/17/2015 02/11/2016 Inactive furosemide 40 mg tablet RxNorm: 487751 1 Tablet(s) PO daily 02/17/2015 02/11/2016 Inactive lisinopril 40 mg tablet RxNorm: 512513 TAKE 1 TABLET BY MOUTH DAILY 02/16/2015 08/09/2015 Inactive ceftriaxone 1 gram solution for injection RxNorm: 9213889 1 Gram(s) Inj daily mix with lidocaine 01/14/2015 01/17/2015 Inactive please supply 4 bottles of 1gram rocephin IM with 1 bottle of lidocaine 1% for home health to administer to pt starting 01/15 ceftriaxone 1 gram solution for injection RxNorm: 1367310 1 Gram(s) Inj daily 01/14/2015 01/13/2015 Inactive please supply 4 bottles of 1gram rocephin IM with 1 bottle of lidocaine 1% for home health to administer to pt starting 01/15 Augmentin 500 mg-125 mg tablet RxNorm: 109166 1 Tablet(s) PO BID 01/13/2015 01/22/2015 Inactive Keflex 500 mg capsule RxNorm: 393960 1 Capsule(s) PO TID 12/12/2014 12/11/2014 Inactive Keflex 500 mg capsule RxNorm: 281170 1 Capsule(s) PO TID 12/12/2014 12/17/2014 Inactive Augmentin 500 mg-125 mg tablet RxNorm: 003017 1 Tablet(s) PO BID 11/28/2014 12/02/2014 Inactive Augmentin 500 mg-125 mg tablet RxNorm: 088326 1 Tablet(s) PO BID 11/28/2014 11/27/2014 Inactive Cipro 500 mg tablet RxNorm: 651975 1 Tablet(s) PO BID 11/24/2014 11/27/2014 Inactive gabapentin 600 mg tablet RxNorm: 529992 1 Tablet(s) PO BID 11/17/2014 08/13/2015 Inactive gabapentin 600 mg tablet RxNorm: 797223 1 Tablet(s) PO BID 11/17/2014 11/16/2014 Inactive oxycodone 5 mg tablet RxNorm: 1266927 4 Tablet(s) PO daily 11/07/2014 02/04/2015 Inactive rx written Effexor XR 75 mg capsule,extended release RxNorm: 584807 3 Capsule(s) 225 PO QAM 11/05/2014 03/04/2015 Inactive clopidogrel 75 mg tablet RxNorm: 102412 1 Tablet(s) PO QAM 11/05/2014 01/28/2016 Inactive Effexor XR 75 mg capsule,extended release RxNorm: 537864 3 Capsule(s) 225 PO QAM 11/03/2014 11/04/2014 Inactive carvedilol 12.5 mg tablet RxNorm: 131441 1 Tablet(s) PO BID 10/28/2014 02/16/2015 Inactive Effexor XR 75 mg capsule,extended release RxNorm: 363836 3 Capsule(s) 225 PO QAM 10/28/2014 11/02/2014 Inactive Effexor XR 75 mg capsule,extended release RxNorm: 504513 3 Capsule(s) 225 PO QAM 10/28/2014 10/27/2014 Inactive carvedilol 12.5 mg tablet RxNorm: 341580 1 Tablet(s) PO BID 10/28/2014 10/27/2014 Inactive ceftriaxone 1 gram solution for injection RxNorm: 9600564 Inj 09/05/2014 09/05/2014 Inactive Cipro 500 mg tablet RxNorm: 366669 1 Tablet(s) PO BID 09/04/2014 09/03/2014 Inactive Cipro 500 mg tablet RxNorm: 505720 1 Tablet(s) PO BID 09/04/2014 09/10/2014 Inactive oxycodone 5 mg tablet RxNorm: 7326747 4 Tablet(s) PO daily 08/20/2014 11/06/2014 Inactive rx written lisinopril 40 mg tablet RxNorm: 327481 TAKE 1 TABLET BY MOUTH DAILY 08/18/2014 02/13/2015 Inactive nystatin 100,000 unit/mL oral suspension RxNorm: 661109 5 Milliliter(s) PO QID 07/04/2014 07/13/2014 Inactive [SAVINGS FOR NON-COVERED DRUGS -- BIN:[id number], PCN: [id number], Group: [id number], ID# [id number], Questions: . THIS IS NOT INSURANCE.] WelChol 3.75 gram oral powder packet RxNorm: 091408 1 PO BID No Start Date Active amlodipine 10 mg tablet RxNorm: 366569 1 Tablet(s) PO QAM No Start Date Active One A Day oral RxNorm: 92257 oral No Start Date Active Vitamin D2 400 unit capsule RxNorm: 467002 1 Capsule(s) PO daily No Start Date Active aspirin 81 mg tablet,delayed release RxNorm: 636743 1 Tablet(s) PO daily No Start Date Active melatonin 5 mg disintegrating tablet RxNorm: 2680749 1 Tablet(s) PO QHS No Start Date Active clonidine HCl 0.1 mg tablet RxNorm: 535672 1 Tablet(s) PO QHS No Start Date Active hydrochlorothiazide oral RxNorm: 5487 oral No Start Date Active Lasix oral RxNorm: 495964 oral No Start Date 02/17/2015 Inactive potassium chloride 20 meq RxNorm: 228434 PO daily No Start Date 03/22/2015 Inactive oxycodone 5 mg tablet RxNorm: 2723769 3-4 Tablet(s) PO QHS No Start Date 08/19/2014 Inactive terazosin 2 mg capsule RxNorm: 343775 1 Capsule(s) PO daily No Start Date 07/26/2015 Inactive Effexor XR 75 mg capsule,extended release RxNorm: 533203 3 Capsule(s) 225 PO QAM No Start Date 10/27/2014 Inactive gabapentin 600 mg tablet RxNorm: 903506 1 Tablet(s) PO BID No Start Date 11/16/2014 Inactive pantoprazole 40 mg tablet,delayed release RxNorm: 465683 oral No Start Date 12/21/2015 Inactive Anoro Ellipta 62.5 mcg-25 mcg/actuation powder for inhalation RxNorm: 7155174 1 INH daily No Start Date 04/16/2015 Inactive diclofenac sodium 75 mg tablet,delayed release RxNorm: 242887 1 Tablet(s) PO BID No Start Date 02/17/2015 Inactive clopidogrel 75 mg tablet RxNorm: 615446 1 Tablet(s) PO QAM No Start Date 11/04/2014 Inactive lisinopril 40 mg tablet RxNorm: 771337 1 Tablet(s) PO daily No Start Date 08/17/2014 Inactive carvedilol 12.5 mg tablet RxNorm: 532678 1 Tablet(s) PO BID No Start Date 10/27/2014 Inactive Medication Administered Medication Codes Instructions Start Date Status ceftriaxone 1 gram solution for injection RxNorm: 9798425 09/05/2014 No longer Active Immunizations Vaccine Codes [...] 95.9 fl 03/30/2017 Cbc With Differential Ord2 Latimer% 13.0 % 03/30/2017 Cbc With Differential Ord2 [...] 1.69 K/ul 03/30/2017 Cbc With Differential Ord2 Latimer ABS# 0.9 K/ul 03/30/2017 Cbc With Differential Ord2 Eos ABS# 0.5 K/ul 03/30/2017 Cbc With Differential Ord2 Baso ABS# 0.0 K/ul 03/30/2017 %Hba1C Qbi938 % HbA1c 54839- 6 5.8 % 03/30/2017 %Hba1C Bvw806 Gluc Ave 120 mg/dL 03/30/2017 Comp Metabolic Cuz805 NA 140 mEq/L 03/30/2017 Comp Metabolic Cxp821 K 4.0 mEq/L 03/30/2017 Comp Metabolic Lug949 CL 105 mEq/L 03/30/2017 Comp Metabolic Ypi065 CO2 25.0 mEq/L 03/30/2017 Comp Metabolic Wjn735 ANION GAP 14 03/30/2017 Comp Metabolic Jvd714 GLUCOSE 108 mg/dL 03/30/2017 Comp Metabolic Gbh552 Creat 1.2 mg/dL 03/30/2017 Comp Metabolic Fbx262 eGFR 63 ml/min/1.73m2 03/30/2017 Comp Metabolic Ezv054 BUN 20 mg/dL 03/30/2017 Comp Metabolic Aal675 B/C Ratio 16.9 Ratio 03/30/2017 Comp Metabolic Acl932 CALCIUM 9.2 mg/dL 03/30/2017 Comp Metabolic Yqv737 ALK PHOS 83 U/L 03/30/2017 Comp Metabolic Ytw806 AST(SGOT) 17 U/L 03/30/2017 Comp Metabolic Xxe426 ALT(SGPT) 19 U/L 03/30/2017 Comp Metabolic Lin053 BILI T 0.3 mg/dL 03/30/2017 Comp Metabolic Byy581 ALBUMIN 3.9 g/dL 03/30/2017 Comp Metabolic Qap793 TPRO 7.2 g/dL 03/30/2017 Comp Metabolic Ris277 GLOB 3.3 g/dL 03/30/2017 Comp Metabolic Iuj894 A/G Ratio 1.2 Ratio 03/30/2017 Comp Metabolic Rir810 Osmo 283 mOsmo 03/30/2017 Tsh Ord6 TSH (3rd IS) 1.40 uIU/mL 03/30/2017 Clostridium Diff Tox A/B Cyc964 Cdiff Positive 06/03/2016 Total Psa PSA 1.53 [...] 99.1 fl 03/20/2015 Cbc With Differential Ord2 Latimer% 12.8 % 03/20/2015 Cbc With Differential Ord2 [...] 1.69 K/ul 03/20/2015 Cbc With Differential Ord2 Latimer ABS# 0.8 K/ul 03/20/2015 Cbc With Differential Ord2 Eos ABS# 0.6 K/ul 03/20/2015 Cbc With Differential Ord2 Baso ABS# 0.0 K/ul 03/20/2015 Cbc With Differential Ord2 New Analyzer Notice Please note new ref ranges starting 03-04-2015 due to implemntation of new five part differential hematolgy analyzer. 03/20/2015 Total Psa Ord10 PSA 2.25 ng/mL 02/26/2015 Comp Metabolic Vto323 NA 138 mEq/L 02/26/2015 Comp Metabolic Lbw371 K 4.0 mEq/L 02/26/2015 Comp Metabolic Kbq614 CL 103 mEq/L 02/26/2015 Comp Metabolic Dws948 CO2 28.0 mEq/L 02/26/2015 Comp Metabolic Htf678 ANION GAP 11 02/26/2015 Comp Metabolic Mbx618 GLUCOSE 95 mg/dL 02/26/2015 Comp Metabolic Jpy346 Creat 1.0 mg/dL 02/26/2015 Comp Metabolic Sth377 eGFR 74 ml/min/1.73m2 02/26/2015 Comp Metabolic Tlh611 BUN 19 mg/dL 02/26/2015 Comp Metabolic Lla517 B/C Ratio 18.3 Ratio 02/26/2015 Comp Metabolic Vam565 CALCIUM 9.1 mg/dL 02/26/2015 Comp Metabolic Jrk043 ALK PHOS 87 U/L 02/26/2015 Comp Metabolic Nwg303 AST(SGOT) 22 U/L 02/26/2015 Comp Metabolic Yhv855 ALT(SGPT) 24 U/L 02/26/2015 Comp Metabolic Xxi466 BILI T 0.4 mg/dL 02/26/2015 Comp Metabolic Njk144 ALBUMIN 4.0 g/dL 02/26/2015 Comp Metabolic Zym579 TPRO 7.4 g/dL 02/26/2015 Comp Metabolic Pls808 GLOB 3.4 g/dL 02/26/2015 Comp Metabolic Flp637 A/G Ratio 1.2 Ratio 02/26/2015 Comp Metabolic Ele251 Osmo 278 mOsmo 02/26/2015 Culture Urine [id number] URINE CULTURE SEE NOTES 12/15/2014 Culture Urine [id number] Continued Results 12/15/2014 Urine Culture Ucult Complete >100,000 col/ml aerobic growth sent to ref lab 12/12/2014 Comp Metabolic Eiz288 NA 136 mEq/L 12/05/2014 Comp Metabolic Vzk451 K 4.3 mEq/L 12/05/2014 Comp Metabolic Fum989 CL 104 mEq/L 12/05/2014 Comp Metabolic Uiv050 CO2 29.0 mEq/L 12/05/2014 Comp Metabolic Fmr939 ANION GAP 7 12/05/2014 Comp Metabolic Lpk027 GLUCOSE 80 mg/dL 12/05/2014 Comp Metabolic Jcv075 Creat 1.1 mg/dL 12/05/2014 Comp Metabolic Iir288 eGFR 68 ml/min/1.73m2 12/05/2014 Comp Metabolic Iny401 BUN 21 mg/dL 12/05/2014 Comp Metabolic Wyb985 B/C Ratio 18.8 Ratio 12/05/2014 Comp Metabolic Gvr566 CALCIUM 9.3 mg/dL 12/05/2014 Comp Metabolic Oxm084 ALK PHOS 81 U/L 12/05/2014 Comp Metabolic Mnw762 AST(SGOT) 17 U/L 12/05/2014 Comp Metabolic Qxr774 ALT(SGPT) 16 U/L 12/05/2014 Comp Metabolic Dwe782 BILI T 0.3 mg/dL 12/05/2014 Comp Metabolic Axk533 ALBUMIN 4.0 g/dL 12/05/2014 Comp Metabolic Jsy890 TPRO 6.9 g/dL 12/05/2014 Comp Metabolic Tdy479 GLOB 2.9 g/dL 12/05/2014 Comp Metabolic Xxf582 A/G Ratio 1.4 Ratio 12/05/2014 Comp Metabolic Uuv466 Osmo 274 mOsmo 12/05/2014 Cbc With Differential [...] Ord2 RDW 15.0 % 12/05/2014 Culture Urine [id number] URINE CULTURE SEE NOTES 11/27/2014 Culture Urine [id number] Continued Results 11/27/2014 Urine Culture Ucult Complete Growth of aerobe sent to ref lab 11/25/2014 B Type Natriuretic Peptide Apy5258 B-LOAN ASSISTANT 121.00 pg/ml 10/08/2014 Cbc With Differential Ord2 [...] Folate Ord36 Folate 22.12 ng/mL 10/08/2014 B12 Rff581 B12 >1500.00 pg/ml 10/08/2014 Comp Metabolic Xqi036 NA 135 mEq/L 10/08/2014 Comp Metabolic Uzu898 K 4.5 mEq/L 10/08/2014 Comp Metabolic Wut341 CL 104 mEq/L 10/08/2014 Comp Metabolic Qay801 CO2 25.0 mEq/L 10/08/2014 Comp Metabolic Lun365 ANION GAP 11 10/08/2014 Comp Metabolic Ccx023 GLUCOSE 73 mg/dL 10/08/2014 Comp Metabolic Xte560 Creat 1.1 mg/dL 10/08/2014 Comp Metabolic Oar233 eGFR 71 ml/min/1.73m2 10/08/2014 Comp Metabolic Eec337 BUN 21 mg/dL 10/08/2014 Comp Metabolic Rld302 B/C Ratio 19.4 Ratio 10/08/2014 Comp Metabolic Kty643 CALCIUM 9.0 mg/dL 10/08/2014 Comp Metabolic Tds679 ALK PHOS 73 U/L 10/08/2014 Comp Metabolic Frj965 AST(SGOT) 15 U/L 10/08/2014 Comp Metabolic Pqc779 ALT(SGPT) 14 U/L 10/08/2014 Comp Metabolic Zfz119 BILI T 0.4 mg/dL 10/08/2014 Comp Metabolic Tch594 ALBUMIN 4.2 g/dL 10/08/2014 Comp Metabolic Dmw026 TPRO 7.1 g/dL 10/08/2014 Comp Metabolic Pnv252 GLOB 2.9 g/dL 10/08/2014 Comp Metabolic Uww820 A/G Ratio 1.4 Ratio 10/08/2014 Comp Metabolic Ruz757 Osmo 272 mOsmo 10/08/2014 B12 Dgg903 B12 554.00 pg/ml 09/16/2014 Tibc Ord40 Iron 108 ug/dl 09/16/2014 Tibc Ord40 UIBC 281 ug/dL 09/16/2014 Tibc Ord40 TIBC 389 ug/dL 09/16/2014 Tibc Ord40 Fe-%Sat 27.8 % 09/16/2014 Folate Ord36 Folate >23.20 ng/mL 09/16/2014 Comp Metabolic Vqf147 NA 134 mEq/L 09/16/2014 Comp Metabolic Dmi258 K 4.6 mEq/L 09/16/2014 Comp Metabolic Nde467 CL 103 mEq/L 09/16/2014 Comp Metabolic Vbv414 CO2 25.0 mEq/L 09/16/2014 Comp Metabolic Klt374 ANION GAP 11 09/16/2014 Comp Metabolic Rrv246 GLUCOSE 93 mg/dL 09/16/2014 Comp Metabolic Wcs757 Creat 1.2 mg/dL 09/16/2014 Comp Metabolic Dir124 eGFR 65 ml/min/1.73m2 09/16/2014 Comp Metabolic Oik855 BUN 23 mg/dL 09/16/2014 Comp Metabolic Kds544 B/C Ratio 19.8 Ratio 09/16/2014 Comp Metabolic Yzf222 CALCIUM 9.1 mg/dL 09/16/2014 Comp Metabolic Yfz394 ALK PHOS 73 U/L 09/16/2014 Comp Metabolic Zbp807 AST(SGOT) 18 U/L 09/16/2014 Comp Metabolic Dap212 ALT(SGPT) 16 U/L 09/16/2014 Comp Metabolic Inu759 BILI T 0.4 mg/dL 09/16/2014 Comp Metabolic Bed085 ALBUMIN 4.0 g/dL 09/16/2014 Comp Metabolic Pue658 TPRO 7.1 g/dL 09/16/2014 Comp Metabolic Qcd095 GLOB 3.1 g/dL 09/16/2014 Comp Metabolic Sil455 A/G Ratio 1.3 Ratio 09/16/2014 Comp Metabolic Org542 Osmo 272 mOsmo 09/16/2014 Cbc With Differential [...] Ord22 FERRITIN 36.2 ng/mL 09/16/2014 Culture Urine [id number] URINE CULTURE SEE NOTES 09/08/2014 Urine Culture [...] Ord2 RDW 17.8 % 09/05/2014 Comp Metabolic Iyq838 NA 133 mEq/L 09/05/2014 Comp Metabolic Gyy065 K 4.9 mEq/L 09/05/2014 Comp Metabolic Qad079 CL 99 mEq/L 09/05/2014 Comp Metabolic Mfy244 CO2 26.0 mEq/L 09/05/2014 Comp Metabolic Jho891 ANION GAP 13 09/05/2014 Comp Metabolic Fdo084 GLUCOSE 83 mg/dL 09/05/2014 Comp Metabolic Stf585 Creat 1.5 mg/dL 09/05/2014 Comp Metabolic Xgr162 eGFR 47 ml/min/1.73m2 09/05/2014 Comp Metabolic Yba526 BUN 28 mg/dL 09/05/2014 Comp Metabolic Dyi572 B/C Ratio 18.3 Ratio 09/05/2014 Comp Metabolic Usg784 CALCIUM 8.9 mg/dL 09/05/2014 Comp Metabolic Agz640 ALK PHOS 71 U/L 09/05/2014 Comp Metabolic Zev141 AST(SGOT) 18 U/L 09/05/2014 Comp Metabolic Znr840 ALT(SGPT) 29 U/L 09/05/2014 Comp Metabolic Ddd040 BILI T 0.6 mg/dL 09/05/2014 Comp Metabolic Wqx752 ALBUMIN 3.8 g/dL 09/05/2014 Comp Metabolic Lox186 TPRO 6.7 g/dL 09/05/2014 Comp Metabolic Qzj372 GLOB 2.9 g/dL 09/05/2014 Comp Metabolic Zqs440 A/G Ratio 1.3 Ratio 09/05/2014 Comp Metabolic Trv544 Osmo 271 mOsmo 09/05/2014 Total Psa Ord10 [...] Codes Date URINALYSIS NONAUTO W/O SCOPE CPT-4: 46871 09/18/2015 ADMIN INFLUENZA VIRUS VAC CPT-4: G0008 12/31/2014 FLU VACC PRSV FREE INC ANTIG Formatting Model/CDA Sections, Assigned to/[employer] CPT-4: [id number] 12/31/2014 URINALYSIS NONAUTO W/O SCOPE CPT-4: 69125 12/10/2014 URINALYSIS NONAUTO W/O SCOPE CPT-4: 80679 11/24/2014 ROCEPHIN, PER 250 MG CPT- 4: J0696 09/05/2014 THER/PROPH/DIAG INJ SC/IM CPT-4: 55180 09/05/2014 URINALYSIS NONAUTO W/O SCOPE CPT-4: 39065 09/04/2014 Vital Signs Date Vital 03/30/2017 Blood Pressure 1: 130/66 Code: 8480-6 Heart Rate 1: 70 bpm Height: 5'9" SpO2: 97% Weight: 10/07/2016 Blood Pressure 1: 138/60 Code: 8480-6 BMI: 37.2 Code: 06929-1 Heart Rate 1: 79 bpm Height: 5'9" SpO2: 91% Weight: 252 lbs 07/01/2016 Blood Pressure 1: 138/68 Code: 8480-6 BMI: 37.2 Code: 32636-5 Heart Rate 1: 69 bpm Height: 5'9" SpO2: 93% Weight: 252 lbs 05/05/2016 Blood Pressure 1: 136/78 Code: 8480-6 BMI: 39.3 Code: 09717-3 Heart Rate 1: 72 bpm Height: 5'9" SpO2: 97% Weight: 266 lbs 02/23/2016 Blood Pressure 1: 145/70 Code: 8480-6 BMI: 37.5 Code: 94344-9 Heart Rate 1: 80 bpm Height: 5'9" Weight: 254 lbs 09/16/2015 Blood Pressure 1: 140/62 Code: 8480-6 Heart Rate 1: 77 bpm Height: 5'9" SpO2: 93% Weight: 07/24/2015 Blood Pressure 1: 152/68 Code: 8480-6 BMI: 37.7 Code: 78886-3 Heart Rate 1: 73 bpm Height: 5'9" SpO2: 97% Weight: 255 lbs 03/20/2015 Blood Pressure 1: 146/74 Code: 8480-6 BMI: 38.1 Code: 93657-7 Heart Rate 1: 63 bpm Height: 5'9" Weight: 258 lbs 01/13/2015 Blood Pressure 1: 120/58 Code: 8480-6 Heart Rate 1: 52 bpm Height: 5'9" SpO2: 97% Temperature: 37.1 (C) / 98.7 (F) Weight: 12/05/2014 Blood Pressure 1: 134/54 Code: 8480-6 BMI: 36.3 Code: 97900-8 Heart Rate 1: 76 bpm Height: 5'9" SpO2: 93% Weight: 246 lbs 10/03/2014 Blood Pressure 1: 132/60 Code: 8480-6 Heart Rate 1: 76 bpm Height: SpO2: 95% Weight: 254 lbs 09/15/2014 Blood Pressure 1: 120/68 Code: 8480-6 BMI: 37.5 Code: 18320-4 Heart Rate 1: 76 bpm Height: 5'9" SpO2: 93% Weight: 254 lbs 09/05/2014 Blood Pressure 1: 110/50 Code: 8480-6 BMI: 37.4 Code: 12415-1 Heart Rate 1: 79 bpm Height: 5'9" SpO2: 96% Temperature: 36.3 (C) / 97.4 (F) Weight: 253 lbs 07/04/2014 Blood Pressure 1: 138/72 Code: 8480-6 BMI: 37.1 Code: 23820-7 Heart Rate 1: 72 bpm Height: 5'9" [...] discomfort 12/05/2014 occasional ache in chest- seeing firewood cutter in [place]- doing heart cath in October [...] discomfort 10/03/2014 occasional ache in chest- seeing firewood cutter in [place]- doing heart cath in October [...] data Encounters Encounter Performer Location Codes Date [id number] EST. PATIENT, LEVEL IV Diagnosis: Dysuria[ICD10: R30.0] Diagnosis: Other malaise[ICD10: R53.81] Diagnosis: Cauda equina syndrome[ICD10: G83.4] Diagnosis: Weakness[ICD10: R53.1] Mary Aburto MD, [facility] CPT-4: 72184 03/30/2017 ([id number]) [id number] EST. PATIENT, LEVEL III Diagnosis: Cough[ICD10: R05] Diagnosis: Enterocolitis due to Clostridium difficile[ICD10: A04.7] Kavya Aburto MD, [facility] CPT-4: 83618 10/07/2016 ([id number]) [id number] EST. PATIENT, LEVEL IV Diagnosis: Cauda equina syndrome[ICD10: G83.4] Diagnosis: Pain in right shoulder[ICD10: M25.511] Diagnosis: Drug induced constipation[ICD10: K59.03] Diagnosis: Bilateral primary osteoarthritis of knee[ICD10: M17.0] Diagnosis: Primary osteoarthritis, right shoulder[ICD10: M19.011] Diagnosis: Primary osteoarthritis, left shoulder[ICD10: M19.012] Diagnosis: Polyneuropathy, unspecified[ICD10: G62.9] Kavya Aburto MD, [facility] CPT-4: 96272 07/01/2016 [id number] EST. PATIENT, LEVEL III Diagnosis: Cauda equina syndrome[ICD10: G83.4] Diagnosis: Irritable bowel syndrome with diarrhea[ICD10: K58.0] Mary Aburto MD, [facility] CPT-4: 37727 05/05/2016 [id number] EST. PATIENT, LEVEL III Diagnosis: Pain in right shoulder[ICD10: M25.511] Diagnosis: Weakness[ICD10: R53.1] Diagnosis: Shortness of breath[ICD10: R06.02] Mary Aburto MD, [facility] CPT-4: 17503 02/23/2016 [id number] EST. PATIENT, LEVEL III Diagnosis: Essential (primary) hypertension[ICD10: I10] Diagnosis: Other insomnia[ICD10: G47.09] Diagnosis: Irritable bowel syndrome with diarrhea[ICD10: K58.0] Diagnosis: Shortness of breath[ICD10: R06.02] Diagnosis: Weakness[ICD10: R53.1] Mary Aburto MD, [facility] CPT-4: 78518 09/16/2015 00286 EST. PATIENT, LEVEL III Diagnosis: Diarrhea, unspecified[ICD10: R19.7] Diagnosis: Nausea[ICD10: R11.0] Mary Aburto MD, [facility] CPT-4: 09052 07/24/2015 79121 EST. PATIENT, LEVEL IV Diagnosis: Other iron deficiency anemias[ICD10: D50.8] Diagnosis: Rash and other nonspecific skin eruption[ICD10: R21] Diagnosis: Cauda equina syndrome[ICD10: G83.4] Diagnosis: Essential (primary) hypertension[ICD10: I10] Diagnosis: Other pruritus[ICD10: L29.8] Diagnosis: Shortness of breath[ICD10: R06.02] Mary Aburto MD, [facility] CPT-4: 20505 03/20/2015 15610 EST. PATIENT, LEVEL IV Diagnosis: Urinary tract infection, site not specified[ICD10: N39.0] Diagnosis: Umbilical hernia without obstruction or gangrene[ICD10: K42.9] Diagnosis: Cauda equina syndrome[ICD10: G83.4] Mary Abruto MD, [facility] CPT- 4: 29498 01/13/2015 ([id number]) 50059 EST. PATIENT, LEVEL IV Diagnosis: Iron deficiency anemia, unspecified[ICD10: D50.9] Diagnosis: Essential (primary) hypertension[ICD10: I10] Diagnosis: Hematuria, unspecified[ICD10: R31.9] Kavya Aburto MD, [facility] CPT-4: 51663 12/05/2014 [id number]) 46593 EST. PATIENT, LEVEL IV Diagnosis: ESSENTIAL HYPERTENSION[ICD9: 401.9] Diagnosis: COPD (chronic obstructive pulmonary disease)[ICD9: 496] Diagnosis: ANEMIA[ICD9: 285.9] Diagnosis: SHORTNESS OF BREATH[ICD9: 786.05] Kavya Aburto MD, [facility] CPT- 4: 10995 10/03/2014 ([id number]) 61553 EST. PATIENT, LEVEL IV Diagnosis: ESSENTIAL HYPERTENSION[ICD9: 401.9] Diagnosis: ANEMIA[ICD9: 285.9] Diagnosis: MALAISE AND FATIGUE[ICD9: 780.79] Darleen Aburto MD, [facility] CPT- 4: 13399 09/15/2014 ([id number]) 72203 EST. PATIENT, LEVEL III Diagnosis: UTI[ICD9: 599.0] Diagnosis: Chronic back pain[ICD9: 724.5] Kavya Aburto MD, [facility] CPT-4: 41469 09/05/2014 ([id number]) OFFICE VISIT, NEW - LEVEL 4 Diagnosis: ESSENTIAL HYPERTENSION[ICD9: 401.9] Diagnosis: THRUSH[ICD9: 112.0] Diagnosis: Hyperlipidemia[ICD9: 272.4] Diagnosis: COPD (chronic obstructive pulmonary disease)[ICD9: 496] Diagnosis: Cauda equina syndrome[ICD9: 344.60] Diagnosis: History of prostate cancer[ICD9: V10.46] Kavya Aburto MD, [facility] CPT-4: 45200 07/04/2014 Plan of Care Planned Activity Notes [...] not improve. 03/30/2017 Appointment: Mary Alan WPtel: [address] [place], [place] [id number] (30 min) Complex 03/30/2017 Patient Education: Patient Medication Summary Completed 03/30/2017 Visit Plan: Cough-suspect virus-patient to monitor over the weekend-call Monday if symptoms persist and we will do a chest xray and sputum culture Cdiff-treat with flagyl as directed-call if symptoms do not resolve 10/07/2016 Appointment: Kavya Subramanian WPtel: [phone] [phone] (30 min) Complex 10/07/2016 Patient Education: Patient Medication Summary Completed 10/07/2016 Patient Education: Obesity Completed 10/07/2016 Visit Plan: Cauda equina-chronic back pain-generalized weakness- right shoulder pain/weakness-patient to contact juan union star for mobility paperwork-will ask PT to do a mobility exam through [facility] Drug induced constipation-rx for [employer]. 07/01/2016 Visit Plan: Cauda equina-chronic back pain-generalized weakness- bilateral shoulder pain/weakness-OA knees-patient to contact juan union star for mobility paperwork-will ask PT to do [...] induced constipation-rx for [employer]. 07/01/2016 Appointment[phone] [phone] [place] (30 min) Complex 07/01/2016 Patient [...] surgery. 05/05/2016 Appointment: [facility] [phone] [phone] [facility] 05/05/2016 Patient Education: Patient [...] have pt contact Juan godoy. 02/23/2016 Appointment: Mray Alan [facility]Ptel[phone] ([facility] min) Complex 02/23/2016 Patient Education: Patient Medication Summary Completed 02/23/2016 Appointment: [facility] Alan [facility]Ptel[phone] ([facility] min) Complex 02/19/2016 Appointment: [facility]el[phone] ([facility] min) Moderate 10/14/2015 Appointment: Lab Draw [...] having loose bowel movements. Keep appointment with District Operations Manager Make an appointment with firewood cutter - to follow up on shortness of breath. Weakness - pt is to contact Juan Goldman Fercho in [facility] and Call clinic when he is [...] not improved. 07/24/2015 Appointment: Kavya Subramanian WPtel: [address] [place], [place] [phone] (30 min) Complex 07/24/2015 Patient Education: Patient [...] and hypertension. 09/15/2014 Appointment: Darleen Aburto WPtel: [phone] ([facility] min) Moderate 09/15/2014 [...] equina-increased incontinence of bowels-recommend follow up with ammunition specialist-will discuss repeat MRI with Dr Aburto-keep [...] Education: Hypertension Completed 07/04/2014 Instructions Comment [employer] [place] to do PT evaluation for motorized wheelchair through [employer] . Cauda equina-chronic back pain-generalized weakness-right shoulder pain/weakness- patient to contact juanEnvivioyonny for mobility paperwork-will ask PT to do a mobility exam through [employer] Drug induced constipation-rx for [employer]. [employer] [place] to do PT evaluation for motorized wheelchair through [employer] . Cauda equina-chronic back pain-generalized weakness-bilateral shoulder pain/weakness- OA knees-patient to contact juan union star for mobility paperwork-will ask PT to do a mobility exam through [employer]. Patient is non ambulatory due to cauda [...] incontinence of bowels- recommend follow up with ammunition specialist-will discuss repeat MRI with Dr Aburto-keep [...] chair - [facility] . Cauda Equina, weakness, gait instability [...] Peng 4. Make an appointment with your firewood cutter - to follow up on shortness of breath. 5. Call us when you here about the mobility paperwork and we will fill out the paperwork. Juan Godoy in [facility] . Hypertension - The patient has [...] having loose bowel movements. Keep appointment with District Operations Manager Make an appointment with firewood cutter - to follow up on shortness of breath. Weakness - pt is to contact Juan Godoy in [facility] and Call clinic when he is [...]
--- OUTSIDE RECORDS SUMMARY | 2018-07-19 10:06 | XMS REPORT | CCD ---
Author Author Kavya Subramanian Organization [facility] Address [address] [place] [address] Phone Care Team Providers Care Dyer And Washer Name Role Phone PP Unavailable CCM Unavailable Summary Purpose Interface Exchange Insurance Providers Payer name Policy type / Coverage type Covered republican ID Effective Begin Date Effective End Date WPS Medicare Part B Commercial Insurance [id number] Unknown Unknown HEALTHCHOICE Commercial Insurance [id number] Unknown Unknown Family history Father Diagnosis Age At Onset Coronary Artery Disease Unknown Mother Diagnosis Age At Onset Arthritis Unknown Sister Diagnosis Age At Onset Alzheimer's Disease Unknown Social History Social History Element Codes Description Effective Dates Marital status Unknown 07/04/2014 Number of children Unknown 2 07/04/2014 Living arrangements Unknown House 07/04/[address]: 5307133 Quit over 10 years ago 07/04/2014 Alcohol history Unknown occasionally drinks alcohol 07/04/2014 Frequency of drinks SNOMED CT: 803579875 Drinks rarely 07/04/2014 Allergies, Adverse Reactions, Alerts Substance Reaction Codes Entered Date Inactivated Date Status Iodine rash, pruritis RxNorm: 5933 03/04/2015 No Inactive Date Active tramadol pruritis RxNorm: 70113 07/04/2014 No Inactive Date Active Past Medical [...] Instructions Augmentin 500 mg-125 mg tablet RxNorm: 360454 1 Tablet(s) PO TID 03/31/2017 04/09/2017 Active Augmentin 500 mg-125 mg tablet RxNorm: 551582 1 Tablet(s) PO TID 03/31/2017 03/30/2017 Inactive Effexor XR 75 mg capsule,extended release RxNorm: 913445 TAKE 3 CAPSULES BY MOUTH EVERY MORNING 03/24/2017 07/21/2017 Active potassium chloride ER 20 mEq tablet,extended release RxNorm: 572944 1 TABLET(S) PO DAILY 03/13/2017 03/07/2018 Active lisinopril 40 mg tablet RxNorm: 872323 TAKE 1 TABLET BY MOUTH DAILY 02/06/2017 11/02/2017 Active pantoprazole 40 mg tablet,delayed release RxNorm: 206526 TAKE 1 TABLET BY MOUTH DAILY 12/19/2016 12/13/2017 Active oxycodone 5 mg tablet RxNorm: 8895320 4 Tablet(s) PO daily 12/19/2016 03/03/2017 Inactive diclofenac sodium 75 mg tablet,delayed release RxNorm: 320913 1 TABLET(S) PO BID 11/17/2016 08/13/2017 Active gabapentin 600 mg tablet RxNorm: 698535 TABLET(S) TAKE 1 TABLET BY MOUTH TWICE DAILY 10/14/2016 04/11/2017 Active Flagyl 500 mg tablet RxNorm: 867114 1 Tablet(s) PO TID 10/07/2016 10/16/2016 Inactive oxycodone 5 mg tablet RxNorm: 0316614 4 Tablet(s) PO daily 10/03/2016 12/16/2016 Inactive Effexor XR 75 mg capsule,extended release RxNorm: 695534 TAKE 3 CAPSULES BY MOUTH EVERY MORNING 09/22/2016 11/20/2016 Inactive Patient requests 90 days supply lisinopril 40 mg tablet RxNorm: 134066 TAKE 1 TABLET BY MOUTH DAILY 08/01/2016 01/27/2017 Inactive Effexor XR 75 mg capsule,extended release RxNorm: 420182 TAKE 3 CAPSULES BY MOUTH EVERY MORNING 07/21/2016 09/21/2016 Inactive oxycodone 5 mg tablet RxNorm: 2600814 4 Tablet(s) PO daily 07/11/2016 09/23/2016 Inactive Movantik 25 mg tablet RxNorm: 4157862 1 Tablet(s) PO daily 07/01/2016 No Stop Date Active potassium chloride ER 20 mEq tablet,extended release RxNorm: 309028 1 TABLET(S) PO DAILY 06/14/2016 03/10/2017 Inactive Flagyl 500 mg tablet RxNorm: 703829 1 Tablet(s) PO TID 06/03/2016 06/12/2016 Inactive Flagyl 500 mg tablet RxNorm: 542939 1 Tablet(s) PO TID 06/03/2016 06/02/2016 Inactive oxycodone 5 mg tablet RxNorm: 8673600 4 Tablet(s) PO daily 04/27/2016 07/10/2016 Inactive Tamiflu 75 mg capsule RxNorm: 024440 1 Capsule(s) PO daily 04/19/2016 04/28/2016 Inactive Tamiflu 75 mg capsule RxNorm: 703740 1 Capsule(s) PO daily 04/19/2016 04/18/2016 Inactive Effexor XR 75 mg capsule,extended release RxNorm: 623303 TAKE 3 CAPSULES BY MOUTH EVERY MORNING 02/18/2016 04/17/2016 Inactive diclofenac sodium 75 mg tablet,delayed release RxNorm: 537791 1 TABLET(S) PO BID 02/18/2016 11/13/2016 Inactive Effexor XR 75 mg capsule,extended release RxNorm: 423942 Capsule(s) TAKE 3 CAPSULES BY MOUTH EVERY MORNING 02/17/2016 08/14/2016 Inactive oxycodone 5 mg tablet RxNorm: 3777501 4 Tablet(s) PO daily 02/04/2016 04/26/2016 Inactive clopidogrel 75 mg tablet RxNorm: 101143 1 TABLET(S) PO QAM 02/01/2016 01/25/2017 Inactive gabapentin 600 mg tablet RxNorm: 975294 Tablet(s) TAKE 1 TABLET BY MOUTH TWICE DAILY 02/01/2016 10/13/2016 Inactive Effexor XR 75 mg capsule,extended release RxNorm: 844624 TAKE 3 CAPSULES BY MOUTH EVERY MORNING 01/11/2016 02/09/2016 Inactive pantoprazole 40 mg tablet,delayed release RxNorm: 137693 TAKE 1 TABLET BY MOUTH DAILY 12/22/2015 12/15/2016 Inactive Effexor XR 75 mg capsule,extended release RxNorm: 155848 TAKE 3 CAPSULES BY MOUTH EVERY MORNING 11/16/2015 01/14/2016 Inactive lisinopril 40 mg tablet RxNorm: 442798 TAKE 1 TABLET BY MOUTH DAILY 11/05/2015 07/31/2016 Inactive Effexor XR 75 mg capsule,extended release RxNorm: 668799 TAKE 3 CAPSULES BY MOUTH EVERY MORNING 09/22/2015 11/20/2015 Inactive Augmentin 500 mg-125 mg tablet RxNorm: 519550 1 Tablet(s) PO TID 09/18/2015 09/24/2015 Inactive Anoro Ellipta 62.5 mcg-25 mcg/actuation powder for inhalation RxNorm: 5694264 1 INH DAILY 08/20/2015 No Stop Date Active Anoro Ellipta 62.5 mcg-25 mcg/actuation powder for inhalation RxNorm: 0156769 1 INH daily 08/20/2015 02/15/2016 Inactive lisinopril 40 mg tablet RxNorm: 550452 TAKE 1 TABLET BY MOUTH DAILY 08/10/2015 11/04/2015 Inactive gabapentin 600 mg tablet RxNorm: 272016 TAKE 1 TABLET BY MOUTH TWICE DAILY 08/10/2015 01/31/2016 Inactive terazosin 2 mg capsule RxNorm: 725960 TAKE ONE CAPSULE BY MOUTH EVERY DAY 07/27/2015 08/29/2016 Inactive hyoscyamine 0.125 mg sublingual tablet RxNorm: 6479118 1 Tablet(s) SL TID as needed 07/24/2015 08/02/2015 Inactive metronidazole 500 mg tablet RxNorm: 667514 1 Tablet(s) PO TID 07/24/2015 07/30/2015 Inactive Effexor XR 75 mg capsule,extended release RxNorm: 031991 TAKE 3 CAPSULES BY MOUTH EVERY MORNING 07/23/2015 09/20/2015 Inactive oxycodone 5 mg tablet RxNorm: 3219245 4 Tablet(s) PO daily 06/26/2015 02/03/2016 Inactive potassium chloride ER 20 mEq tablet,extended release RxNorm: 729048 1 Tablet(s) PO daily 06/25/2015 06/13/2016 Inactive oxycodone 5 mg tablet RxNorm: 6399374 4 Tablet(s) PO daily 04/17/2015 06/25/2015 Inactive rx written Anoro Ellipta 62.5 mcg-25 mcg/actuation powder for inhalation RxNorm: 7465475 1 INH daily 04/17/2015 08/19/2015 Inactive potassium chloride ER 20 mEq tablet,extended release RxNorm: 852535 1 Tablet(s) PO daily 03/23/2015 06/24/2015 Inactive triamcinolone acetonide 0.1 % topical cream RxNorm: 7229362 1 Application TOP BID 03/20/2015 No Stop Date Active carvedilol 12.5 mg tablet RxNorm: 806196 1 TABLET(S) PO BID 02/23/2015 08/21/2015 Inactive diclofenac sodium 75 mg tablet,delayed release RxNorm: 059782 1 Tablet(s) PO BID 02/18/2015 02/12/2016 Inactive carvedilol 12.5 mg tablet RxNorm: 411687 1 Tablet(s) PO BID 02/17/2015 02/11/2016 Inactive furosemide 40 mg tablet RxNorm: 426004 1 Tablet(s) PO daily 02/17/2015 02/11/2016 Inactive lisinopril 40 mg tablet RxNorm: 002755 TAKE 1 TABLET BY MOUTH DAILY 02/16/2015 08/09/2015 Inactive ceftriaxone 1 gram solution for injection RxNorm: 4154970 1 Gram(s) Inj daily mix with lidocaine 01/14/2015 01/17/2015 Inactive please supply 4 bottles of 1gram rocephin IM with 1 bottle of lidocaine 1% for home health to administer to pt starting 01/15 ceftriaxone 1 gram solution for injection RxNorm: 8783247 1 Gram(s) Inj daily 01/14/2015 01/13/2015 Inactive please supply 4 bottles of 1gram rocephin IM with 1 bottle of lidocaine 1% for home health to administer to pt starting 01/15 Augmentin 500 mg-125 mg tablet RxNorm: 496457 1 Tablet(s) PO BID 01/13/2015 01/22/2015 Inactive Keflex 500 mg capsule RxNorm: 182125 1 Capsule(s) PO TID 12/12/2014 12/11/2014 Inactive Keflex 500 mg capsule RxNorm: 437430 1 Capsule(s) PO TID 12/12/2014 12/17/2014 Inactive Augmentin 500 mg-125 mg tablet RxNorm: 489199 1 Tablet(s) PO BID 11/28/2014 12/02/2014 Inactive Augmentin 500 mg-125 mg tablet RxNorm: 460259 1 Tablet(s) PO BID 11/28/2014 11/27/2014 Inactive Cipro 500 mg tablet RxNorm: 735301 1 Tablet(s) PO BID 11/24/2014 11/27/2014 Inactive gabapentin 600 mg tablet RxNorm: 444822 1 Tablet(s) PO BID 11/17/2014 08/13/2015 Inactive gabapentin 600 mg tablet RxNorm: 277473 1 Tablet(s) PO BID 11/17/2014 11/16/2014 Inactive oxycodone 5 mg tablet RxNorm: 6017236 4 Tablet(s) PO daily 11/07/2014 02/04/2015 Inactive rx written Effexor XR 75 mg capsule,extended release RxNorm: 971601 3 Capsule(s) 225 PO QAM 11/05/2014 03/04/2015 Inactive clopidogrel 75 mg tablet RxNorm: 129233 1 Tablet(s) PO QAM 11/05/2014 01/28/2016 Inactive Effexor XR 75 mg capsule,extended release RxNorm: 615793 3 Capsule(s) 225 PO QAM 11/03/2014 11/04/2014 Inactive carvedilol 12.5 mg tablet RxNorm: 297501 1 Tablet(s) PO BID 10/28/2014 02/16/2015 Inactive Effexor XR 75 mg capsule,extended release RxNorm: 171649 3 Capsule(s) 225 PO QAM 10/28/2014 11/02/2014 Inactive Effexor XR 75 mg capsule,extended release RxNorm: 389947 3 Capsule(s) 225 PO QAM 10/28/2014 10/27/2014 Inactive carvedilol 12.5 mg tablet RxNorm: 644489 1 Tablet(s) PO BID 10/28/2014 10/27/2014 Inactive ceftriaxone 1 gram solution for injection RxNorm: 4040099 Inj 09/05/2014 09/05/2014 Inactive Cipro 500 mg tablet RxNorm: 425431 1 Tablet(s) PO BID 09/04/2014 09/03/2014 Inactive Cipro 500 mg tablet RxNorm: 852683 1 Tablet(s) PO BID 09/04/2014 09/10/2014 Inactive oxycodone 5 mg tablet RxNorm: 4607806 4 Tablet(s) PO daily 08/20/2014 11/06/2014 Inactive rx written lisinopril 40 mg tablet RxNorm: 791669 TAKE 1 TABLET BY MOUTH DAILY 08/18/2014 02/13/2015 Inactive nystatin 100,000 unit/mL oral suspension RxNorm: 719399 5 Milliliter(s) PO QID 07/04/2014 07/13/2014 Inactive [SAVINGS FOR NON-COVERED DRUGS -- BIN:[id number], PCN: [id number], Group: [id number], ID# [id number], Questions: . THIS IS NOT INSURANCE.] WelChol 3.75 gram oral powder packet RxNorm: 318789 1 PO BID No Start Date Active amlodipine 10 mg tablet RxNorm: 750538 1 Tablet(s) PO QAM No Start Date Active One A Day oral RxNorm: 06934 oral No Start Date Active Vitamin D2 400 unit capsule RxNorm: 294841 1 Capsule(s) PO daily No Start Date Active aspirin 81 mg tablet,delayed release RxNorm: 908841 1 Tablet(s) PO daily No Start Date Active melatonin 5 mg disintegrating tablet RxNorm: 9154638 1 Tablet(s) PO QHS No Start Date Active clonidine HCl 0.1 mg tablet RxNorm: 779820 1 Tablet(s) PO QHS No Start Date Active hydrochlorothiazide oral RxNorm: 5487 oral No Start Date Active Lasix oral RxNorm: 056163 oral No Start Date 02/17/2015 Inactive potassium chloride 20 meq RxNorm: 650298 PO daily No Start Date 03/22/2015 Inactive oxycodone 5 mg tablet RxNorm: 6075996 3-4 Tablet(s) PO QHS No Start Date 08/19/2014 Inactive terazosin 2 mg capsule RxNorm: 727882 1 Capsule(s) PO daily No Start Date 07/26/2015 Inactive Effexor XR 75 mg capsule,extended release RxNorm: 128614 3 Capsule(s) 225 PO QAM No Start Date 10/27/2014 Inactive gabapentin 600 mg tablet RxNorm: 878680 1 Tablet(s) PO BID No Start Date 11/16/2014 Inactive pantoprazole 40 mg tablet,delayed release RxNorm: 582054 oral No Start Date 12/21/2015 Inactive Anoro Ellipta 62.5 mcg-25 mcg/actuation powder for inhalation RxNorm: 1909365 1 INH daily No Start Date 04/16/2015 Inactive diclofenac sodium 75 mg tablet,delayed release RxNorm: 460009 1 Tablet(s) PO BID No Start Date 02/17/2015 Inactive clopidogrel 75 mg tablet RxNorm: 696774 1 Tablet(s) PO QAM No Start Date 11/04/2014 Inactive lisinopril 40 mg tablet RxNorm: 469477 1 Tablet(s) PO daily No Start Date 08/17/2014 Inactive carvedilol 12.5 mg tablet RxNorm: 964787 1 Tablet(s) PO BID No Start Date 10/27/2014 Inactive Medication Administered Medication Codes Instructions Start Date Status ceftriaxone 1 gram solution for injection RxNorm: 9471884 09/05/2014 No longer Active Immunizations Vaccine Codes [...] 30.9 pg 03/30/2017 Cbc With Differential Ord2 [place]% 13.0 % 03/30/2017 Cbc With Differential Ord2 [...] 1.69 K/ul 03/30/2017 Cbc With Differential Ord2 [place] ABS# 0.9 K/ul 03/30/2017 Cbc With Differential Ord2 Eos ABS# 0.5 K/ul 03/30/2017 Cbc With Differential Ord2 Baso ABS# 0.0 K/ul 03/30/2017 %Hba1C Nln743 % HbA1c 93648- 6 5.8 % 03/30/2017 %Hba1C Ybv267 Gluc Ave 120 mg/dL 03/30/2017 Comp Metabolic Zal071 NA 140 mEq/L 03/30/2017 Comp Metabolic Pmg674 K 4.0 mEq/L 03/30/2017 Comp Metabolic Bqk872 CL 105 mEq/L 03/30/2017 Comp Metabolic Bdt070 CO2 25.0 mEq/L 03/30/2017 Comp Metabolic Fwg083 ANION GAP 14 03/30/2017 Comp Metabolic Sfh755 GLUCOSE 108 mg/dL 03/30/2017 Comp Metabolic Kkc926 Creat 1.2 mg/dL 03/30/2017 Comp Metabolic Fgx188 eGFR 63 ml/min/1.73m2 03/30/2017 Comp Metabolic Zxs764 BUN 20 mg/dL 03/30/2017 Comp Metabolic Edg277 B/C Ratio 16.9 Ratio 03/30/2017 Comp Metabolic Fsd096 CALCIUM 9.2 mg/dL 03/30/2017 Comp Metabolic Lgq125 ALK PHOS 83 U/L 03/30/2017 Comp Metabolic Nrr104 AST(SGOT) 17 U/L 03/30/2017 Comp Metabolic Bik023 ALT(SGPT) 19 U/L 03/30/2017 Comp Metabolic Eei998 BILI T 0.3 mg/dL 03/30/2017 Comp Metabolic Yhi390 ALBUMIN 3.9 g/dL 03/30/2017 Comp Metabolic Bgw276 TPRO 7.2 g/dL 03/30/2017 Comp Metabolic Jku361 GLOB 3.3 g/dL 03/30/2017 Comp Metabolic Yio208 A/G Ratio 1.2 Ratio 03/30/2017 Comp Metabolic Ekd802 Osmo 283 mOsmo 03/30/2017 Tsh Ord6 TSH (3rd IS) 1.40 uIU/mL 03/30/2017 Clostridium Diff Tox A/B Rff624 Cdiff Positive 06/03/2016 Total Psa PSA 1.53 [...] 27.4 % 03/20/2015 Cbc With Differential Ord2 [place]% 12.8 % 03/20/2015 Cbc With Differential Ord2 [...] 1.69 K/ul 03/20/2015 Cbc With Differential Ord2 [place] ABS# 0.8 K/ul 03/20/2015 Cbc With Differential Ord2 Eos ABS# 0.6 K/ul 03/20/2015 Cbc With Differential Ord2 Baso ABS# 0.0 K/ul 03/20/2015 Cbc With Differential Ord2 New Analyzer Notice Please note new ref ranges starting 03-04-2015 due to implemntation of new five part differential hematolgy analyzer. 03/20/2015 Total Psa Ord10 PSA 2.25 ng/mL 02/26/2015 Comp Metabolic Jjw176 NA 138 mEq/L 02/26/2015 Comp Metabolic Qzh034 K 4.0 mEq/L 02/26/2015 Comp Metabolic Gsl152 CL 103 mEq/L 02/26/2015 Comp Metabolic Yqc881 CO2 28.0 mEq/L 02/26/2015 Comp Metabolic Umn185 ANION GAP 11 02/26/2015 Comp Metabolic Opm460 GLUCOSE 95 mg/dL 02/26/2015 Comp Metabolic Hjm462 Creat 1.0 mg/dL 02/26/2015 Comp Metabolic Wob876 eGFR 74 ml/min/1.73m2 02/26/2015 Comp Metabolic Ner373 BUN 19 mg/dL 02/26/2015 Comp Metabolic Sgz414 B/C Ratio 18.3 Ratio 02/26/2015 Comp Metabolic Epf180 CALCIUM 9.1 mg/dL 02/26/2015 Comp Metabolic Bjz814 ALK PHOS 87 U/L 02/26/2015 Comp Metabolic Wvd452 AST(SGOT) 22 U/L 02/26/2015 Comp Metabolic Mzn876 ALT(SGPT) 24 U/L 02/26/2015 Comp Metabolic Mrj702 BILI T 0.4 mg/dL 02/26/2015 Comp Metabolic Fac612 ALBUMIN 4.0 g/dL 02/26/2015 Comp Metabolic Rdx121 TPRO 7.4 g/dL 02/26/2015 Comp Metabolic Rgt638 GLOB 3.4 g/dL 02/26/2015 Comp Metabolic Pek586 A/G Ratio 1.2 Ratio 02/26/2015 Comp Metabolic Svi554 Osmo 278 mOsmo 02/26/2015 Culture Urine [id number] URINE CULTURE SEE NOTES 12/15/2014 Culture Urine [id number] Continued Results 12/15/2014 Urine Culture Ucult Complete >100,000 col/ml aerobic growth sent to ref lab 12/12/2014 Comp Metabolic Esv569 NA 136 mEq/L 12/05/2014 Comp Metabolic Qgb137 K 4.3 mEq/L 12/05/2014 Comp Metabolic Iea643 CL 104 mEq/L 12/05/2014 Comp Metabolic Csy168 CO2 29.0 mEq/L 12/05/2014 Comp Metabolic Dgd464 ANION GAP 7 12/05/2014 Comp Metabolic Fxz398 GLUCOSE 80 mg/dL 12/05/2014 Comp Metabolic Per612 Creat 1.1 mg/dL 12/05/2014 Comp Metabolic Fio768 eGFR 68 ml/min/1.73m2 12/05/2014 Comp Metabolic Tbn876 BUN 21 mg/dL 12/05/2014 Comp Metabolic Czi696 B/C Ratio 18.8 Ratio 12/05/2014 Comp Metabolic Wzn598 CALCIUM 9.3 mg/dL 12/05/2014 Comp Metabolic Snz135 ALK PHOS 81 U/L 12/05/2014 Comp Metabolic Wgq434 AST(SGOT) 17 U/L 12/05/2014 Comp Metabolic Nad374 ALT(SGPT) 16 U/L 12/05/2014 Comp Metabolic Qly971 BILI T 0.3 mg/dL 12/05/2014 Comp Metabolic Qyx796 ALBUMIN 4.0 g/dL 12/05/2014 Comp Metabolic Sqq495 TPRO 6.9 g/dL 12/05/2014 Comp Metabolic Hwl339 GLOB 2.9 g/dL 12/05/2014 Comp Metabolic Svn789 A/G Ratio 1.4 Ratio 12/05/2014 Comp Metabolic Uxi726 Osmo 274 mOsmo 12/05/2014 Cbc With Differential [...] Ord2 RDW 15.0 % 12/05/2014 Culture Urine [id number] URINE CULTURE SEE NOTES 11/27/2014 Culture Urine [id number] Continued Results 11/27/2014 Urine Culture Ucult Complete Growth of aerobe sent to ref lab 11/25/2014 B Type Natriuretic Peptide Vbx5251 B-COSMETIC CHEMIST 121.00 pg/ml 10/08/2014 Cbc With Differential Ord2 [...] Folate Ord36 Folate 22.12 ng/mL 10/08/2014 B12 Pgj131 B12 >1500.00 pg/ml 10/08/2014 Comp Metabolic Olj497 NA 135 mEq/L 10/08/2014 Comp Metabolic Mzv230 K 4.5 mEq/L 10/08/2014 Comp Metabolic Rmc159 CL 104 mEq/L 10/08/2014 Comp Metabolic Mgz995 CO2 25.0 mEq/L 10/08/2014 Comp Metabolic Imd838 ANION GAP 11 10/08/2014 Comp Metabolic Fbh157 GLUCOSE 73 mg/dL 10/08/2014 Comp Metabolic Bsv485 Creat 1.1 mg/dL 10/08/2014 Comp Metabolic Sga628 eGFR 71 ml/min/1.73m2 10/08/2014 Comp Metabolic Csu655 BUN 21 mg/dL 10/08/2014 Comp Metabolic Ocq521 B/C Ratio 19.4 Ratio 10/08/2014 Comp Metabolic Bvn143 CALCIUM 9.0 mg/dL 10/08/2014 Comp Metabolic Hie955 ALK PHOS 73 U/L 10/08/2014 Comp Metabolic Zhj097 AST(SGOT) 15 U/L 10/08/2014 Comp Metabolic Bcp593 ALT(SGPT) 14 U/L 10/08/2014 Comp Metabolic Izr686 BILI T 0.4 mg/dL 10/08/2014 Comp Metabolic Czv416 ALBUMIN 4.2 g/dL 10/08/2014 Comp Metabolic Dji365 TPRO 7.1 g/dL 10/08/2014 Comp Metabolic Pbn128 GLOB 2.9 g/dL 10/08/2014 Comp Metabolic Fyq949 A/G Ratio 1.4 Ratio 10/08/2014 Comp Metabolic Qos453 Osmo 272 mOsmo 10/08/2014 B12 Uio797 B12 554.00 pg/ml 09/16/2014 Tibc Ord40 Iron 108 ug/dl 09/16/2014 Tibc Ord40 UIBC 281 ug/dL 09/16/2014 Tibc Ord40 TIBC 389 ug/dL 09/16/2014 Tibc Ord40 Fe-%Sat 27.8 % 09/16/2014 Folate Ord36 Folate >23.20 ng/mL 09/16/2014 Comp Metabolic Zsv043 NA 134 mEq/L 09/16/2014 Comp Metabolic Brz505 K 4.6 mEq/L 09/16/2014 Comp Metabolic Tzg059 CL 103 mEq/L 09/16/2014 Comp Metabolic Vgo894 CO2 25.0 mEq/L 09/16/2014 Comp Metabolic Yqk528 ANION GAP 11 09/16/2014 Comp Metabolic Zlc370 GLUCOSE 93 mg/dL 09/16/2014 Comp Metabolic Tix912 Creat 1.2 mg/dL 09/16/2014 Comp Metabolic Bqs550 eGFR 65 ml/min/1.73m2 09/16/2014 Comp Metabolic Wbi943 BUN 23 mg/dL 09/16/2014 Comp Metabolic Vum005 B/C Ratio 19.8 Ratio 09/16/2014 Comp Metabolic Zds764 CALCIUM 9.1 mg/dL 09/16/2014 Comp Metabolic Uys772 ALK PHOS 73 U/L 09/16/2014 Comp Metabolic Waz305 AST(SGOT) 18 U/L 09/16/2014 Comp Metabolic Qum675 ALT(SGPT) 16 U/L 09/16/2014 Comp Metabolic Gou738 BILI T 0.4 mg/dL 09/16/2014 Comp Metabolic Kbd123 ALBUMIN 4.0 g/dL 09/16/2014 Comp Metabolic Wuo522 TPRO 7.1 g/dL 09/16/2014 Comp Metabolic Hyh939 GLOB 3.1 g/dL 09/16/2014 Comp Metabolic Zhd122 A/G Ratio 1.3 Ratio 09/16/2014 Comp Metabolic Rcz078 Osmo 272 mOsmo 09/16/2014 Cbc With Differential [...] Ord22 FERRITIN 36.2 ng/mL 09/16/2014 Culture Urine [id number] URINE CULTURE SEE NOTES 09/08/2014 Urine Culture [...] Ord2 RDW 17.8 % 09/05/2014 Comp Metabolic Ylm990 NA 133 mEq/L 09/05/2014 Comp Metabolic Xsi246 K 4.9 mEq/L 09/05/2014 Comp Metabolic Grx124 CL 99 mEq/L 09/05/2014 Comp Metabolic Ntm573 CO2 26.0 mEq/L 09/05/2014 Comp Metabolic Gqy578 ANION GAP 13 09/05/2014 Comp Metabolic Huv784 GLUCOSE 83 mg/dL 09/05/2014 Comp Metabolic Bsd828 Creat 1.5 mg/dL 09/05/2014 Comp Metabolic Drs460 eGFR 47 ml/min/1.73m2 09/05/2014 Comp Metabolic Qcr332 BUN 28 mg/dL 09/05/2014 Comp Metabolic Syk959 B/C Ratio 18.3 Ratio 09/05/2014 Comp Metabolic Cyy216 CALCIUM 8.9 mg/dL 09/05/2014 Comp Metabolic Nce092 ALK PHOS 71 U/L 09/05/2014 Comp Metabolic Kym633 AST(SGOT) 18 U/L 09/05/2014 Comp Metabolic Yku204 ALT(SGPT) 29 U/L 09/05/2014 Comp Metabolic Wkg424 BILI T 0.6 mg/dL 09/05/2014 Comp Metabolic Hrg188 ALBUMIN 3.8 g/dL 09/05/2014 Comp Metabolic Gyk947 TPRO 6.7 g/dL 09/05/2014 Comp Metabolic Erc316 GLOB 2.9 g/dL 09/05/2014 Comp Metabolic Xio069 A/G Ratio 1.3 Ratio 09/05/2014 Comp Metabolic Zxl435 Osmo 271 mOsmo 09/05/2014 Total Psa Ord10 [...] Codes Date URINALYSIS NONAUTO W/O SCOPE CPT-4: 30227 09/18/2015 ADMIN INFLUENZA VIRUS VAC CPT-4: G0008 12/31/2014 FLU VACC PRSV FREE INC ANTIG Formatting Model/CDA Sections, Assigned to/[employer] CPT-4: [id number] 12/31/2014 URINALYSIS NONAUTO W/O SCOPE CPT-4: 92071 12/10/2014 URINALYSIS NONAUTO W/O SCOPE CPT-4: 77371 11/24/2014 ROCEPHIN, PER 250 MG CPT- 4: J0696 09/05/2014 THER/PROPH/DIAG INJ SC/IM CPT-4: 52591 09/05/2014 URINALYSIS NONAUTO W/O SCOPE CPT-4: 14286 09/04/2014 Vital Signs Date Vital 03/30/2017 Blood Pressure 1: 130/66 Code: 8480-6 Heart Rate 1: 70 bpm Height: 5'9" SpO2: 97% Weight: 10/07/2016 Blood Pressure 1: 138/60 Code: 8480-6 BMI: 37.2 Code: 63386-0 Heart Rate 1: 79 bpm Height: 5'9" SpO2: 91% Weight: 252 lbs 07/01/2016 Blood Pressure 1: 138/68 Code: 8480-6 BMI: 37.2 Code: 03618-9 Heart Rate 1: 69 bpm Height: 5'9" SpO2: 93% Weight: 252 lbs 05/05/2016 Blood Pressure 1: 136/78 Code: 8480-6 BMI: 39.3 Code: 28739-3 Heart Rate 1: 72 bpm Height: 5'9" SpO2: 97% Weight: 266 lbs 02/23/2016 Blood Pressure 1: 145/70 Code: 8480-6 BMI: 37.5 Code: 86170-7 Heart Rate 1: 80 bpm Height: 5'9" Weight: 254 lbs 09/16/2015 Blood Pressure 1: 140/62 Code: 8480-6 Heart Rate 1: 77 bpm Height: 5'9" SpO2: 93% Weight: 07/24/2015 Blood Pressure 1: 152/68 Code: 8480-6 BMI: 37.7 Code: 20841-6 Heart Rate 1: 73 bpm Height: 5'9" SpO2: 97% Weight: 255 lbs 03/20/2015 Blood Pressure 1: 146/74 Code: 8480-6 BMI: 38.1 Code: 04548-5 Heart Rate 1: 63 bpm Height: 5'9" Weight: 258 lbs 01/13/2015 Blood Pressure 1: 120/58 Code: 8480-6 Heart Rate 1: 52 bpm Height: 5'9" SpO2: 97% Temperature: 37.1 (C) / 98.7 (F) Weight: 12/05/2014 Blood Pressure 1: 134/54 Code: 8480-6 BMI: 36.3 Code: 34237-5 Heart Rate 1: 76 bpm Height: 5'9" SpO2: 93% Weight: 246 lbs 10/03/2014 Blood Pressure 1: 132/60 Code: 8480-6 Heart Rate 1: 76 bpm Height: SpO2: 95% Weight: 254 lbs 09/15/2014 Blood Pressure 1: 120/68 Code: 8480-6 BMI: 37.5 Code: 78558-3 Heart Rate 1: 76 bpm Height: 5'9" SpO2: 93% Weight: 254 lbs 09/05/2014 Blood Pressure 1: 110/50 Code: 8480-6 BMI: 37.4 Code: 45749-5 Heart Rate 1: 79 bpm Height: 5'9" SpO2: 96% Temperature: 36.3 (C) / 97.4 (F) Weight: 253 lbs 07/04/2014 Blood Pressure 1: 138/72 Code: 8480-6 BMI: 37.1 Code: 25042-5 Heart Rate 1: 72 bpm Height: 5'9" [...] discomfort 12/05/2014 occasional ache in chest- seeing circus rider in [place]- doing heart cath in October [...] discomfort 10/03/2014 occasional ache in chest- seeing circus rider in [place]- doing heart cath in October [...] data Encounters Encounter Performer Location Codes Date [address] EST. PATIENT, LEVEL IV Diagnosis: Dysuria[ICD10: R30.0] Diagnosis: Other malaise[ICD10: R53.81] Diagnosis: Cauda equina syndrome[ICD10: G83.4] Diagnosis: Weakness[ICD10: R53.1] Mary Aburto MD, [facility] CPT-4: 05620 03/30/2017 ([id number]) [id number] EST. PATIENT, LEVEL III Diagnosis: Cough[ICD10: R05] Diagnosis: Enterocolitis due to Clostridium difficile[ICD10: A04.7] Kavya Aburto MD, [facility] CPT-4: 10795 10/07/2016 ([id number]) [id number] EST. 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 PATIENT, LEVEL III Diagnosis: Cauda equina syndrome[ICD10: G83.4] Diagnosis: Irritable bowel syndrome with diarrhea[ICD10: K58.0] Mary Aburto MD, [facility] CPT-4: 36762 05/05/2016 [id number] EST. PATIENT, LEVEL III Diagnosis: Pain in right shoulder[ICD10: M25.511] Diagnosis: Weakness[ICD10: R53.1] Diagnosis: Shortness of breath[ICD10: R06.02] Mary Aburto MD, [facility] CPT-4: 03041 02/23/2016 [id number] EST. PATIENT, LEVEL III Diagnosis: Essential (primary) hypertension[ICD10: I10] Diagnosis: Other insomnia[ICD10: G47.09] Diagnosis: Irritable bowel syndrome with diarrhea[ICD10: K58.0] Diagnosis: Shortness of breath[ICD10: R06.02] Diagnosis: Weakness[ICD10: R53.1] Mary Aburto MD, [facility] CPT-4: 13788 09/16/2015 [id number] EST. PATIENT, LEVEL III Diagnosis: Diarrhea, unspecified[ICD10: R19.7] Diagnosis: Nausea[ICD10: R11.0] Mary Aburto MD, [facility] CPT-4: 87246 07/24/2015 07970 EST. PATIENT, LEVEL IV Diagnosis: Other iron deficiency anemias[ICD10: D50.8] Diagnosis: Rash and other nonspecific skin eruption[ICD10: R21] Diagnosis: Cauda equina syndrome[ICD10: G83.4] Diagnosis: Essential (primary) hypertension[ICD10: I10] Diagnosis: Other pruritus[ICD10: L29.8] Diagnosis: Shortness of breath[ICD10: R06.02] Mary Aburto MD, [facility] CPT-4: 92891 03/20/2015 71375 EST. PATIENT, LEVEL IV Diagnosis: Urinary tract infection, site not specified[ICD10: N39.0] Diagnosis: Umbilical hernia without obstruction or gangrene[ICD10: K42.9] Diagnosis: Cauda equina syndrome[ICD10: G83.4] Mary Aburto MD, [facility] CPT- 4: 58856 01/13/2015 ([id number]) 25017 EST. PATIENT, LEVEL IV Diagnosis: Iron deficiency anemia, unspecified[ICD10: D50.9] Diagnosis: Essential (primary) hypertension[ICD10: I10] Diagnosis: Hematuria, unspecified[ICD10: R31.9] Kavya Aburto MD, [facility] CPT-4: 29310 12/05/2014 ([id number]) 00130 EST. PATIENT, LEVEL IV Diagnosis: ESSENTIAL HYPERTENSION[ICD9: 401.9] Diagnosis: COPD (chronic obstructive pulmonary disease)[ICD9: 496] Diagnosis: ANEMIA[ICD9: 285.9] Diagnosis: SHORTNESS OF BREATH[ICD9: 786.05] Kavya Aburto MD, [facility] CPT- 4: 43574 10/03/2014 ([id number]) 83614 EST. PATIENT, LEVEL IV Diagnosis: ESSENTIAL HYPERTENSION[ICD9: 401.9] Diagnosis: ANEMIA[ICD9: 285.9] Diagnosis: MALAISE AND FATIGUE[ICD9: 780.79] Darleen Aburto MD, [facility] CPT- 4: 13604 09/15/2014 ([id number]) 65554 EST. PATIENT, LEVEL III Diagnosis: UTI[ICD9: 599.0] Diagnosis: Chronic back pain[ICD9: 724.5] [facility] CPT-4: 07478 09/05/2014 ([id number]) OFFICE VISIT, NEW - LEVEL 4 Diagnosis: ESSENTIAL HYPERTENSION[ICD9: 401.9] Diagnosis: THRUSH[ICD9: 112.0] Diagnosis: Hyperlipidemia[ICD9: 272.4] Diagnosis: COPD (chronic obstructive pulmonary disease)[ICD9: 496] Diagnosis: Cauda equina syndrome[ICD9: 344.60] Diagnosis: History of prostate cancer[ICD9: V10.46] [facility] CPT-4: 80499 07/04/2014 Plan of Care Planned Activity Notes [...] not improve. 03/30/2017 Appointment: Mary Alan WPtel: [address] [place], [place] [id number] (30 min) Complex 03/30/2017 Patient Education: Patient Medication Summary Completed 03/30/2017 Visit Plan: Cough-suspect virus-patient to monitor over the weekend-call Monday if symptoms persist and we will do a chest xray and sputum culture Cdiff-treat with flagyl as directed-call if symptoms do not resolve 10/07/2016 Appointment: Kavya Subramanian WPtel: [address] [place], [place] [phone] (30 min) Complex 10/07/2016 Patient Education: Patient Medication Summary Completed 10/07/2016 Patient Education: Obesity Completed 10/07/2016 Visit Plan: Cauda equina-chronic back pain-generalized weakness- right shoulder pain/weakness-patient to contact juan blancas for mobility paperwork-will ask PT to do a mobility exam through [facility] Drug induced constipation-rx for movantik. 07/01/2016 Visit Plan: Cauda equina-chronic back pain-generalized weakness- bilateral shoulder pain/weakness-OA knees-patient to contact juan blancas for mobility paperwork-will ask PT to do a mobility exam through [facility]. Patient is non [...] movantik. 07/01/2016 [facility]ment: [facility] [phone] [id number] (30 min) Complex 07/01/2016 Patient Education: [...] 05/05/2016 App[facility]ment: [facility] [phone] [id number] [facility] 05/05/2016 Patient Education: Patient [...] [place] mobility. 02/23/2016 Appointment: [facility] [phone] [facility] ([facility] min) Complex 02/23/2016 Patient Education: Patient Medication Summary Completed 02/23/2016 App[facility]ment: [facility] [phone] [id number] ([facility] min) Complex 02/19/2016 Appointment: OrlandoSusany WPtel: [phone] [facility] (15 min) Moderate 10/14/2015 Appointment: Lab Draw [...] having loose bowel movements. Keep appointment with Crumb Packer Make an appointment with circus rider - to follow up on shortness of [...] not improved. 07/24/2015 Appointment: Kavya Subramanian WPtel: [address] [place], [place] [phone] (30 min) Complex 07/24/2015 Patient Education: Patient [...] and hypertension. 09/15/2014 Appointment: Darleen Aburto WPtel: [address] [place], [place] [id number] (15 min) Moderate 09/15/2014 Patient Education: Patient [...] equina-increased incontinence of bowels-recommend follow up with litigation specialist-will discuss repeat MRI with Dr Aburto-keep [...] Education: Hypertension Completed 07/04/2014 Instructions Comment [employer] [place] to do PT evaluation for motorized wheelchair through [facility] . Cauda equina-chronic back pain-generalized weakness-right shoulder pain/weakness- patient to contact [facility] for mobility paperwork-will ask PT to do a mobility exam through [facility] Drug induced constipation-rx for movantik. [employer] [place] to do PT evaluation for motorized wheelchair through [facility] . Cauda equina-chronic back pain-generalized weakness-bilateral shoulder pain/weakness- OA knees-patient to contact [facility] for mobility paperwork-will ask PT to do a mobility exam through [facility]. Patient is non [...] incontinence of bowels- recommend follow up with litigation specialist-will discuss repeat MRI with Dr Aburto-keep [...] Peng 4. Make an appointment with your circus rider - to follow up on shortness of [...] having loose bowel movements. Keep appointment with Crumb Packer Make an appointment with circus rider - to follow up on shortness of [...]
--- OUTSIDE RECORDS SUMMARY | 2018-07-19 10:09 | XMS REPORT | CCD ---
Author Author Kavya Subramanian Organization [facility] Address [address] [place] [address] Phone Care Team Providers Care Black Top Roller Name Role Phone PP Unavailable CCM Unavailable Summary Purpose Interface Exchange Insurance Providers Payer name Policy type / Coverage type Covered alliance party ID Effective Begin Date Effective End Date WPS Medicare Part B Commercial Insurance [id number] Unknown Unknown [employer]ALTH[employer]ICE Commercial Insurance [id number] Unknown Unknown Family history Father Diagnosis Age At Onset Coronary Artery Disease Unknown Mother Diagnosis Age At Onset Arthritis Unknown Sister Diagnosis Age At Onset Alzheimer's Disease Unknown Social History Social History Element Codes Description Effective Dates Marital status Unknown 07/04/2014 Number of children Unknown 2 07/04/2014 Living arrangements Unknown House 07/04/[address]: 8158355 Quit over 10 years ago 07/04/2014 Alcohol history Unknown occasionally drinks alcohol 07/04/2014 Frequency of drinks SNOMED CT: 460863036 Drinks rarely 07/04/2014 Allergies, Adverse Reactions, Alerts Substance Reaction Codes Entered Date Inactivated Date Status Iodine rash, pruritis RxNorm: 5933 03/04/2015 No Inactive Date Active tramadol pruritis RxNorm: 25361 07/04/2014 No Inactive Date Active Past Medical [...] Rocephin 1 gram solution for injection RxNorm: 759376 1 Inj daily 04/04/2017 04/10/2017 Active lidocaine (PF) 10 mg/mL (1 %) injection solution RxNorm: 7428107 1 Milliliter(s) Inj daily 04/04/2017 04/10/2017 Active Use to administer rocephin lidocaine (PF) 10 mg/mL (1 %) injection solution RxNorm: 6332135 1 Milliliter(s) Inj daily 04/04/2017 04/03/2017 Inactive Use to administer rocephin Rocephin 1 gram solution for injection RxNorm: 780763 1 Inj daily 04/04/2017 04/03/2017 Inactive Augmentin 500 mg-125 mg tablet RxNorm: 994279 1 Tablet(s) PO TID 03/31/2017 04/03/2017 Inactive Augmentin 500 mg-125 mg tablet RxNorm: 389499 1 Tablet(s) PO TID 03/31/2017 03/30/2017 Inactive Effexor XR 75 mg capsule,extended release RxNorm: 397998 TAKE 3 CAPSULES BY MOUTH EVERY MORNING 03/24/2017 07/21/2017 Active potassium chloride ER 20 mEq tablet,extended release RxNorm: 613031 1 TABLET(S) PO DAILY 03/13/2017 03/07/2018 Active lisinopril 40 mg tablet RxNorm: 153730 TAKE 1 TABLET BY MOUTH DAILY 02/06/2017 11/02/2017 Active pantoprazole 40 mg tablet,delayed release RxNorm: 492449 TAKE 1 TABLET BY MOUTH DAILY 12/19/2016 12/13/2017 Active oxycodone 5 mg tablet RxNorm: 9226922 4 Tablet(s) PO daily 12/19/2016 03/03/2017 Inactive diclofenac sodium 75 mg tablet,delayed release RxNorm: 576488 1 TABLET(S) PO BID 11/17/2016 08/13/2017 Active gabapentin 600 mg tablet RxNorm: 315731 TABLET(S) TAKE 1 TABLET BY MOUTH TWICE DAILY 10/14/2016 04/11/2017 Active Flagyl 500 mg tablet RxNorm: 776838 1 Tablet(s) PO TID 10/07/2016 10/16/2016 Inactive oxycodone 5 mg tablet RxNorm: 6904145 4 Tablet(s) PO daily 10/03/2016 12/16/2016 Inactive Effexor XR 75 mg capsule,extended release RxNorm: 467389 TAKE 3 CAPSULES BY MOUTH EVERY MORNING 09/22/2016 11/20/2016 Inactive Patient requests 90 days supply lisinopril 40 mg tablet RxNorm: 100643 TAKE 1 TABLET BY MOUTH DAILY 08/01/2016 01/27/2017 Inactive Effexor XR 75 mg capsule,extended release RxNorm: 785464 TAKE 3 CAPSULES BY MOUTH EVERY MORNING 07/21/2016 09/21/2016 Inactive oxycodone 5 mg tablet RxNorm: 5307525 4 Tablet(s) PO daily 07/11/2016 09/23/2016 Inactive Movantik 25 mg tablet RxNorm: 0323054 1 Tablet(s) PO daily 07/01/2016 No Stop Date Active potassium chloride ER 20 mEq tablet,extended release RxNorm: 780900 1 TABLET(S) PO DAILY 06/14/2016 03/10/2017 Inactive Flagyl 500 mg tablet RxNorm: 018924 1 Tablet(s) PO TID 06/03/2016 06/12/2016 Inactive Flagyl 500 mg tablet RxNorm: 442417 1 Tablet(s) PO TID 06/03/2016 06/02/2016 Inactive oxycodone 5 mg tablet RxNorm: 7896113 4 Tablet(s) PO daily 04/27/2016 07/10/2016 Inactive Tamiflu 75 mg capsule RxNorm: 352245 1 Capsule(s) PO daily 04/19/2016 04/28/2016 Inactive Tamiflu 75 mg capsule RxNorm: 483944 1 Capsule(s) PO daily 04/19/2016 04/18/2016 Inactive Effexor XR 75 mg capsule,extended release RxNorm: 463320 TAKE 3 CAPSULES BY MOUTH EVERY MORNING 02/18/2016 04/17/2016 Inactive diclofenac sodium 75 mg tablet,delayed release RxNorm: 291923 1 TABLET(S) PO BID 02/18/2016 11/13/2016 Inactive Effexor XR 75 mg capsule,extended release RxNorm: 708873 Capsule(s) TAKE 3 CAPSULES BY MOUTH EVERY MORNING 02/17/2016 08/14/2016 Inactive oxycodone 5 mg tablet RxNorm: 6779912 4 Tablet(s) PO daily 02/04/2016 04/26/2016 Inactive clopidogrel 75 mg tablet RxNorm: 919285 1 TABLET(S) PO QAM 02/01/2016 01/25/2017 Inactive gabapentin 600 mg tablet RxNorm: 392805 Tablet(s) TAKE 1 TABLET BY MOUTH TWICE DAILY 02/01/2016 10/13/2016 Inactive Effexor XR 75 mg capsule,extended release RxNorm: 005814 TAKE 3 CAPSULES BY MOUTH EVERY MORNING 01/11/2016 02/09/2016 Inactive pantoprazole 40 mg tablet,delayed release RxNorm: 973094 TAKE 1 TABLET BY MOUTH DAILY 12/22/2015 12/15/2016 Inactive Effexor XR 75 mg capsule,extended release RxNorm: 362018 TAKE 3 CAPSULES BY MOUTH EVERY MORNING 11/16/2015 01/14/2016 Inactive lisinopril 40 mg tablet RxNorm: 062641 TAKE 1 TABLET BY MOUTH DAILY 11/05/2015 07/31/2016 Inactive Effexor XR 75 mg capsule,extended release RxNorm: 306241 TAKE 3 CAPSULES BY MOUTH EVERY MORNING 09/22/2015 11/20/2015 Inactive Augmentin 500 mg-125 mg tablet RxNorm: 933705 1 Tablet(s) PO TID 09/18/2015 09/24/2015 Inactive Anoro Ellipta 62.5 mcg-25 mcg/actuation powder for inhalation RxNorm: 5485754 1 INH DAILY 08/20/2015 No Stop Date Active Anoro Ellipta 62.5 mcg-25 mcg/actuation powder for inhalation RxNorm: 0098325 1 INH daily 08/20/2015 02/15/2016 Inactive lisinopril 40 mg tablet RxNorm: 577942 TAKE 1 TABLET BY MOUTH DAILY 08/10/2015 11/04/2015 Inactive gabapentin 600 mg tablet RxNorm: 157235 TAKE 1 TABLET BY MOUTH TWICE DAILY 08/10/2015 01/31/2016 Inactive terazosin 2 mg capsule RxNorm: 692892 TAKE ONE CAPSULE BY MOUTH EVERY DAY 07/27/2015 08/29/2016 Inactive hyoscyamine 0.125 mg sublingual tablet RxNorm: 9164062 1 Tablet(s) SL TID as needed 07/24/2015 08/02/2015 Inactive metronidazole 500 mg tablet RxNorm: 324516 1 Tablet(s) PO TID 07/24/2015 07/30/2015 Inactive Effexor XR 75 mg capsule,extended release RxNorm: 838614 TAKE 3 CAPSULES BY MOUTH EVERY MORNING 07/23/2015 09/20/2015 Inactive oxycodone 5 mg tablet RxNorm: 9325251 4 Tablet(s) PO daily 06/26/2015 02/03/2016 Inactive potassium chloride ER 20 mEq tablet,extended release RxNorm: 049479 1 Tablet(s) PO daily 06/25/2015 06/13/2016 Inactive oxycodone 5 mg tablet RxNorm: 7866838 4 Tablet(s) PO daily 04/17/2015 06/25/2015 Inactive rx written Anoro Ellipta 62.5 mcg-25 mcg/actuation powder for inhalation RxNorm: 1595471 1 INH daily 04/17/2015 08/19/2015 Inactive potassium chloride ER 20 mEq tablet,extended release RxNorm: 241823 1 Tablet(s) PO daily 03/23/2015 06/24/2015 Inactive triamcinolone acetonide 0.1 % topical cream RxNorm: 3888572 1 Application TOP BID 03/20/2015 No Stop Date Active carvedilol 12.5 mg tablet RxNorm: 262689 1 TABLET(S) PO BID 02/23/2015 08/21/2015 Inactive diclofenac sodium 75 mg tablet,delayed release RxNorm: 215338 1 Tablet(s) PO BID 02/18/2015 02/12/2016 Inactive carvedilol 12.5 mg tablet RxNorm: 806417 1 Tablet(s) PO BID 02/17/2015 02/11/2016 Inactive furosemide 40 mg tablet RxNorm: 330650 1 Tablet(s) PO daily 02/17/2015 02/11/2016 Inactive lisinopril 40 mg tablet RxNorm: 931340 TAKE 1 TABLET BY MOUTH DAILY 02/16/2015 08/09/2015 Inactive ceftriaxone 1 gram solution for injection RxNorm: 9597091 1 Gram(s) Inj daily mix with lidocaine 01/14/2015 01/17/2015 Inactive please supply 4 bottles of 1gram rocephin IM with 1 bottle of lidocaine 1% for home health to administer to pt starting 01/15 ceftriaxone 1 gram solution for injection RxNorm: 4182791 1 Gram(s) Inj daily 01/14/2015 01/13/2015 Inactive please supply 4 bottles of 1gram rocephin IM with 1 bottle of lidocaine 1% for home health to administer to pt starting 01/15 Augmentin 500 mg-125 mg tablet RxNorm: 592176 1 Tablet(s) PO BID 01/13/2015 01/22/2015 Inactive Keflex 500 mg capsule RxNorm: 132568 1 Capsule(s) PO TID 12/12/2014 12/11/2014 Inactive Keflex 500 mg capsule RxNorm: 028856 1 Capsule(s) PO TID 12/12/2014 12/17/2014 Inactive Augmentin 500 mg-125 mg tablet RxNorm: 743230 1 Tablet(s) PO BID 11/28/2014 12/02/2014 Inactive Augmentin 500 mg-125 mg tablet RxNorm: 311102 1 Tablet(s) PO BID 11/28/2014 11/27/2014 Inactive Cipro 500 mg tablet RxNorm: 018116 1 Tablet(s) PO BID 11/24/2014 11/27/2014 Inactive gabapentin 600 mg tablet RxNorm: 435024 1 Tablet(s) PO BID 11/17/2014 08/13/2015 Inactive gabapentin 600 mg tablet RxNorm: 165765 1 Tablet(s) PO BID 11/17/2014 11/16/2014 Inactive oxycodone 5 mg tablet RxNorm: 1390669 4 Tablet(s) PO daily 11/07/2014 02/04/2015 Inactive rx written Effexor XR 75 mg capsule,extended release RxNorm: 918354 3 Capsule(s) 225 PO QAM 11/05/2014 03/04/2015 Inactive clopidogrel 75 mg tablet RxNorm: 047541 1 Tablet(s) PO QAM 11/05/2014 01/28/2016 Inactive Effexor XR 75 mg capsule,extended release RxNorm: 096583 3 Capsule(s) 225 PO QAM 11/03/2014 11/04/2014 Inactive carvedilol 12.5 mg tablet RxNorm: 776984 1 Tablet(s) PO BID 10/28/2014 02/16/2015 Inactive Effexor XR 75 mg capsule,extended release RxNorm: 482374 3 Capsule(s) 225 PO QAM 10/28/2014 11/02/2014 Inactive Effexor XR 75 mg capsule,extended release RxNorm: 111843 3 Capsule(s) 225 PO QAM 10/28/2014 10/27/2014 Inactive carvedilol 12.5 mg tablet RxNorm: 140677 1 Tablet(s) PO BID 10/28/2014 10/27/2014 Inactive ceftriaxone 1 gram solution for injection RxNorm: 3903854 Inj 09/05/2014 09/05/2014 Inactive Cipro 500 mg tablet RxNorm: 945342 1 Tablet(s) PO BID 09/04/2014 09/03/2014 Inactive Cipro 500 mg tablet RxNorm: 946725 1 Tablet(s) PO BID 09/04/2014 09/10/2014 Inactive oxycodone 5 mg tablet RxNorm: 8776788 4 Tablet(s) PO daily 08/20/2014 11/06/2014 Inactive rx written lisinopril 40 mg tablet RxNorm: 126027 TAKE 1 TABLET BY MOUTH DAILY 08/18/2014 02/13/2015 Inactive nystatin 100,000 unit/mL oral suspension RxNorm: 037922 5 Milliliter(s) PO QID 07/04/2014 07/13/2014 Inactive [SAVINGS FOR NON-COVERED DRUGS -- BIN:[id number], PCN: [id number], Group: [id number], ID# [id number], Questions: . THIS IS NOT INSURANCE.] WelChol 3.75 gram oral powder packet RxNorm: 435801 1 PO BID No Start Date Active amlodipine 10 mg tablet RxNorm: 663235 1 Tablet(s) PO QAM No Start Date Active One A Day oral RxNorm: 50177 oral No Start Date Active Vitamin D2 400 unit capsule RxNorm: 973523 1 Capsule(s) PO daily No Start Date Active aspirin 81 mg tablet,delayed release RxNorm: 470016 1 Tablet(s) PO daily No Start Date Active melatonin 5 mg disintegrating tablet RxNorm: 3890973 1 Tablet(s) PO QHS No Start Date Active clonidine HCl 0.1 mg tablet RxNorm: 320581 1 Tablet(s) PO QHS No Start Date Active hydrochlorothiazide oral RxNorm: 5487 oral No Start Date Active Lasix oral RxNorm: 417452 oral No Start Date 02/17/2015 Inactive potassium chloride 20 meq RxNorm: 016406 PO daily No Start Date 03/22/2015 Inactive oxycodone 5 mg tablet RxNorm: 1747410 3-4 Tablet(s) PO QHS No Start Date 08/19/2014 Inactive terazosin 2 mg capsule RxNorm: 946869 1 Capsule(s) PO daily No Start Date 07/26/2015 Inactive Effexor XR 75 mg capsule,extended release RxNorm: 088807 3 Capsule(s) 225 PO QAM No Start Date 10/27/2014 Inactive gabapentin 600 mg tablet RxNorm: 825652 1 Tablet(s) PO BID No Start Date 11/16/2014 Inactive pantoprazole 40 mg tablet,delayed release RxNorm: 235326 oral No Start Date 12/21/2015 Inactive Anoro Ellipta 62.5 mcg-25 mcg/actuation powder for inhalation RxNorm: 9408790 1 INH daily No Start Date 04/16/2015 Inactive diclofenac sodium 75 mg tablet,delayed release RxNorm: 620038 1 Tablet(s) PO BID No Start Date 02/17/2015 Inactive clopidogrel 75 mg tablet RxNorm: 622328 1 Tablet(s) PO QAM No Start Date 11/04/2014 Inactive lisinopril 40 mg tablet RxNorm: 915549 1 Tablet(s) PO daily No Start Date 08/17/2014 Inactive carvedilol 12.5 mg tablet RxNorm: 228551 1 Tablet(s) PO BID No Start Date 10/27/2014 Inactive Medication Administered Medication Codes Instructions Start Date Status ceftriaxone 1 gram solution for injection RxNorm: 6308549 09/05/2014 No longer Active Immunizations Vaccine Codes [...] 30.9 pg 03/30/2017 Cbc With Differential Ord2 [place]% 13.0 % 03/30/2017 Cbc With Differential Ord2 [...] 1.69 K/ul 03/30/2017 Cbc With Differential Ord2 [place] ABS# 0.9 K/ul 03/30/2017 Cbc With Differential Ord2 Eos ABS# 0.5 K/ul 03/30/2017 Cbc With Differential Ord2 Baso ABS# 0.0 K/ul 03/30/2017 %Hba1C Olr744 % HbA1c 26886- 6 5.8 % 03/30/2017 %Hba1C Qqx472 Gluc Ave 120 mg/dL 03/30/2017 Comp Metabolic Dyh902 NA 140 mEq/L 03/30/2017 Comp Metabolic Yib108 K 4.0 mEq/L 03/30/2017 Comp Metabolic Ugt823 CL 105 mEq/L 03/30/2017 Comp Metabolic Cin333 CO2 25.0 mEq/L 03/30/2017 Comp Metabolic Rei410 ANION GAP 14 03/30/2017 Comp Metabolic Nmg089 GLUCOSE 108 mg/dL 03/30/2017 Comp Metabolic Dtn347 Creat 1.2 mg/dL 03/30/2017 Comp Metabolic Mfy604 eGFR 63 ml/min/1.73m2 03/30/2017 Comp Metabolic Axg202 BUN 20 mg/dL 03/30/2017 Comp Metabolic Dfv835 B/C Ratio 16.9 Ratio 03/30/2017 Comp Metabolic Kby220 CALCIUM 9.2 mg/dL 03/30/2017 Comp Metabolic Aat593 ALK PHOS 83 U/L 03/30/2017 Comp Metabolic Rut426 AST(SGOT) 17 U/L 03/30/2017 Comp Metabolic Pma939 ALT(SGPT) 19 U/L 03/30/2017 Comp Metabolic Ulh717 BILI T 0.3 mg/dL 03/30/2017 Comp Metabolic Skg094 ALBUMIN 3.9 g/dL 03/30/2017 Comp Metabolic Nwn947 TPRO 7.2 g/dL 03/30/2017 Comp Metabolic Dys085 GLOB 3.3 g/dL 03/30/2017 Comp Metabolic Hjs339 A/G Ratio 1.2 Ratio 03/30/2017 Comp Metabolic Ztq741 Osmo 283 mOsmo 03/30/2017 Tsh Ord6 TSH (3rd IS) 1.40 uIU/mL 03/30/2017 Clostridium Diff Tox A/B Rxq709 Cdiff Positive 06/03/2016 Total Psa PSA 1.53 [...] 27.4 % 03/20/2015 Cbc With Differential Ord2 [place]% 12.8 % 03/20/2015 Cbc With Differential Ord2 [...] 1.69 K/ul 03/20/2015 Cbc With Differential Ord2 [place] ABS# 0.8 K/ul 03/20/2015 Cbc With Differential Ord2 Eos ABS# 0.6 K/ul 03/20/2015 Cbc With Differential Ord2 Baso ABS# 0.0 K/ul 03/20/2015 Cbc With Differential Ord2 New Analyzer Notice Please note new ref ranges starting 03-04-2015 due to implemntation of new five part differential hematolgy analyzer. 03/20/2015 Total Psa Ord10 PSA 2.25 ng/mL 02/26/2015 Comp Metabolic Yob528 NA 138 mEq/L 02/26/2015 Comp Metabolic Fpu663 K 4.0 mEq/L 02/26/2015 Comp Metabolic Gsk825 CL 103 mEq/L 02/26/2015 Comp Metabolic Bjl354 CO2 28.0 mEq/L 02/26/2015 Comp Metabolic Fzd274 ANION GAP 11 02/26/2015 Comp Metabolic Znk373 GLUCOSE 95 mg/dL 02/26/2015 Comp Metabolic Wqh424 Creat 1.0 mg/dL 02/26/2015 Comp Metabolic Pud086 eGFR 74 ml/min/1.73m2 02/26/2015 Comp Metabolic Usb891 BUN 19 mg/dL 02/26/2015 Comp Metabolic Xro097 B/C Ratio 18.3 Ratio 02/26/2015 Comp Metabolic Tvr956 CALCIUM 9.1 mg/dL 02/26/2015 Comp Metabolic Umw667 ALK PHOS 87 U/L 02/26/2015 Comp Metabolic Vcq862 AST(SGOT) 22 U/L 02/26/2015 Comp Metabolic Zrr572 ALT(SGPT) 24 U/L 02/26/2015 Comp Metabolic Ihy775 BILI T 0.4 mg/dL 02/26/2015 Comp Metabolic Nac343 ALBUMIN 4.0 g/dL 02/26/2015 Comp Metabolic Ztk302 TPRO 7.4 g/dL 02/26/2015 Comp Metabolic Fop736 GLOB 3.4 g/dL 02/26/2015 Comp Metabolic Rgz362 A/G Ratio 1.2 Ratio 02/26/2015 Comp Metabolic Zxe910 Osmo 278 mOsmo 02/26/2015 Culture Urine [id number] URINE CULTURE SEE NOTES 12/15/2014 Culture Urine [id number] Continued Results 12/15/2014 Urine Culture Ucult Complete >100,000 col/ml aerobic growth sent to ref lab 12/12/2014 Comp Metabolic Ifg824 NA 136 mEq/L 12/05/2014 Comp Metabolic Wbx094 K 4.3 mEq/L 12/05/2014 Comp Metabolic Szr769 CL 104 mEq/L 12/05/2014 Comp Metabolic Vtp850 CO2 29.0 mEq/L 12/05/2014 Comp Metabolic Jwb745 ANION GAP 7 12/05/2014 Comp Metabolic Tuc408 GLUCOSE 80 mg/dL 12/05/2014 Comp Metabolic Sfi336 Creat 1.1 mg/dL 12/05/2014 Comp Metabolic Uvv081 eGFR 68 ml/min/1.73m2 12/05/2014 Comp Metabolic Ser966 BUN 21 mg/dL 12/05/2014 Comp Metabolic Mju531 B/C Ratio 18.8 Ratio 12/05/2014 Comp Metabolic Hnh265 CALCIUM 9.3 mg/dL 12/05/2014 Comp Metabolic Vvd867 ALK PHOS 81 U/L 12/05/2014 Comp Metabolic Vzc155 AST(SGOT) 17 U/L 12/05/2014 Comp Metabolic Uqq885 ALT(SGPT) 16 U/L 12/05/2014 Comp Metabolic Jcm679 BILI T 0.3 mg/dL 12/05/2014 Comp Metabolic Yiz032 ALBUMIN 4.0 g/dL 12/05/2014 Comp Metabolic Ttl227 TPRO 6.9 g/dL 12/05/2014 Comp Metabolic Qgy408 GLOB 2.9 g/dL 12/05/2014 Comp Metabolic Qkl018 A/G Ratio 1.4 Ratio 12/05/2014 Comp Metabolic Nds019 Osmo 274 mOsmo 12/05/2014 Cbc With Differential [...] Ord2 RDW 15.0 % 12/05/2014 Culture Urine [id number] URINE CULTURE SEE NOTES 11/27/2014 Culture Urine [id number] Continued Results 11/27/2014 Urine Culture Ucult Complete Growth of aerobe sent to ref lab 11/25/2014 B Type Natriuretic Peptide Dmi8264 B-PRESSER AUTOMATIC 121.00 pg/ml 10/08/2014 Cbc With Differential [...] Folate Ord36 Folate 22.12 ng/mL 10/08/2014 B12 Icz936 B12 >1500.00 pg/ml 10/08/2014 Comp Metabolic Hje225 NA 135 mEq/L 10/08/2014 Comp Metabolic Hyx956 K 4.5 mEq/L 10/08/2014 Comp Metabolic Azg242 CL 104 mEq/L 10/08/2014 Comp Metabolic Fip772 CO2 25.0 mEq/L 10/08/2014 Comp Metabolic Wdw857 ANION GAP 11 10/08/2014 Comp Metabolic Wdg836 GLUCOSE 73 mg/dL 10/08/2014 Comp Metabolic Src070 Creat 1.1 mg/dL 10/08/2014 Comp Metabolic Sng049 eGFR 71 ml/min/1.73m2 10/08/2014 Comp Metabolic Llf339 BUN 21 mg/dL 10/08/2014 Comp Metabolic Xgi516 B/C Ratio 19.4 Ratio 10/08/2014 Comp Metabolic Oih471 CALCIUM 9.0 mg/dL 10/08/2014 Comp Metabolic Edx713 ALK PHOS 73 U/L 10/08/2014 Comp Metabolic Rrz833 AST(SGOT) 15 U/L 10/08/2014 Comp Metabolic Bqh112 ALT(SGPT) 14 U/L 10/08/2014 Comp Metabolic Tue636 BILI T 0.4 mg/dL 10/08/2014 Comp Metabolic Nbk311 ALBUMIN 4.2 g/dL 10/08/2014 Comp Metabolic Ezu272 TPRO 7.1 g/dL 10/08/2014 Comp Metabolic Yoi459 GLOB 2.9 g/dL 10/08/2014 Comp Metabolic Bet715 A/G Ratio 1.4 Ratio 10/08/2014 Comp Metabolic Dlt995 Osmo 272 mOsmo 10/08/2014 B12 Rdg062 B12 554.00 pg/ml 09/16/2014 Tibc Ord40 Iron 108 ug/dl 09/16/2014 Tibc Ord40 UIBC 281 ug/dL 09/16/2014 Tibc Ord40 TIBC 389 ug/dL 09/16/2014 Tibc Ord40 Fe-%Sat 27.8 % 09/16/2014 Folate Ord36 Folate >23.20 ng/mL 09/16/2014 Comp Metabolic Kfh255 NA 134 mEq/L 09/16/2014 Comp Metabolic Ovc038 K 4.6 mEq/L 09/16/2014 Comp Metabolic Ukx580 CL 103 mEq/L 09/16/2014 Comp Metabolic Lsj311 CO2 25.0 mEq/L 09/16/2014 Comp Metabolic Cap861 ANION GAP 11 09/16/2014 Comp Metabolic Kkv632 GLUCOSE 93 mg/dL 09/16/2014 Comp Metabolic Vxh931 Creat 1.2 mg/dL 09/16/2014 Comp Metabolic Brp549 eGFR 65 ml/min/1.73m2 09/16/2014 Comp Metabolic Ojy203 BUN 23 mg/dL 09/16/2014 Comp Metabolic Nzx383 B/C Ratio 19.8 Ratio 09/16/2014 Comp Metabolic Ymf224 CALCIUM 9.1 mg/dL 09/16/2014 Comp Metabolic Qqv225 ALK PHOS 73 U/L 09/16/2014 Comp Metabolic Xnf731 AST(SGOT) 18 U/L 09/16/2014 Comp Metabolic Eyd241 ALT(SGPT) 16 U/L 09/16/2014 Comp Metabolic Tkg964 BILI T 0.4 mg/dL 09/16/2014 Comp Metabolic Nzk030 ALBUMIN 4.0 g/dL 09/16/2014 Comp Metabolic Bsj598 TPRO 7.1 g/dL 09/16/2014 Comp Metabolic Twn140 GLOB 3.1 g/dL 09/16/2014 Comp Metabolic Ykk370 A/G Ratio 1.3 Ratio 09/16/2014 Comp Metabolic Shj355 Osmo 272 mOsmo 09/16/2014 Cbc With Differential [...] Ord22 FERRITIN 36.2 ng/mL 09/16/2014 Culture Urine [id number] URINE CULTURE SEE NOTES 09/08/2014 Urine Culture [...] Ord2 RDW 17.8 % 09/05/2014 Comp Metabolic Cxy459 NA 133 mEq/L 09/05/2014 Comp Metabolic Yrd326 K 4.9 mEq/L 09/05/2014 Comp Metabolic Axn410 CL 99 mEq/L 09/05/2014 Comp Metabolic Ztm652 CO2 26.0 mEq/L 09/05/2014 Comp Metabolic Hid470 ANION GAP 13 09/05/2014 Comp Metabolic Hxx675 GLUCOSE 83 mg/dL 09/05/2014 Comp Metabolic Bsk717 Creat 1.5 mg/dL 09/05/2014 Comp Metabolic Jho963 eGFR 47 ml/min/1.73m2 09/05/2014 Comp Metabolic Ysp348 BUN 28 mg/dL 09/05/2014 Comp Metabolic Fks022 B/C Ratio 18.3 Ratio 09/05/2014 Comp Metabolic Kjs702 CALCIUM 8.9 mg/dL 09/05/2014 Comp Metabolic Lcv617 ALK PHOS 71 U/L 09/05/2014 Comp Metabolic Nup231 AST(SGOT) 18 U/L 09/05/2014 Comp Metabolic Yxw508 ALT(SGPT) 29 U/L 09/05/2014 Comp Metabolic Rqh690 BILI T 0.6 mg/dL 09/05/2014 Comp Metabolic Dzr367 ALBUMIN 3.8 g/dL 09/05/2014 Comp Metabolic Giq706 TPRO 6.7 g/dL 09/05/2014 Comp Metabolic Ovp147 GLOB 2.9 g/dL 09/05/2014 Comp Metabolic Ffo577 A/G Ratio 1.3 Ratio 09/05/2014 Comp Metabolic Bfm940 Osmo 271 mOsmo 09/05/2014 Total Psa Ord10 [...] Codes Date URINALYSIS NONAUTO W/O SCOPE CPT-4: 74345 09/18/2015 ADMIN INFLUENZA VIRUS VAC CPT-4: G0008 12/31/2014 FLU VACC PRSV FREE INC ANTIG Formatting Model/CDA Sections, Assigned to/[employer] CPT-4: [id number] 12/31/2014 URINALYSIS NONAUTO W/O SCOPE CPT-4: 16280 12/10/2014 URINALYSIS NONAUTO W/O SCOPE CPT-4: 06009 11/24/2014 ROCEPHIN, PER 250 MG CPT- 4: J0696 09/05/2014 THER/PROPH/DIAG INJ SC/IM CPT-4: 13870 09/05/2014 URINALYSIS NONAUTO W/O SCOPE CPT-4: 42066 09/04/2014 Vital Signs Date Vital 03/30/2017 Blood Pressure 1: 130/66 Code: 8480-6 Heart Rate 1: 70 bpm Height: 5'9" SpO2: 97% Weight: 10/07/2016 Blood Pressure 1: 138/60 Code: 8480-6 BMI: 37.2 Code: 98083-0 Heart Rate 1: 79 bpm Height: 5'9" SpO2: 91% Weight: 252 lbs 07/01/2016 Blood Pressure 1: 138/68 Code: 8480-6 BMI: 37.2 Code: 03506-1 Heart Rate 1: 69 bpm Height: 5'9" SpO2: 93% Weight: 252 lbs 05/05/2016 Blood Pressure 1: 136/78 Code: 8480-6 BMI: 39.3 Code: 38016-8 Heart Rate 1: 72 bpm Height: 5'9" SpO2: 97% Weight: 266 lbs 02/23/2016 Blood Pressure 1: 145/70 Code: 8480-6 BMI: 37.5 Code: 10379-6 Heart Rate 1: 80 bpm Height: 5'9" Weight: 254 lbs 09/16/2015 Blood Pressure 1: 140/62 Code: 8480-6 Heart Rate 1: 77 bpm Height: 5'9" SpO2: 93% Weight: 07/24/2015 Blood Pressure 1: 152/68 Code: 8480-6 BMI: 37.7 Code: 31083-4 Heart Rate 1: 73 bpm Height: 5'9" SpO2: 97% Weight: 255 lbs 03/20/2015 Blood Pressure 1: 146/74 Code: 8480-6 BMI: 38.1 Code: 82172-0 Heart Rate 1: 63 bpm Height: 5'9" Weight: 258 lbs 01/13/2015 Blood Pressure 1: 120/58 Code: 8480-6 Heart Rate 1: 52 bpm Height: 5'9" SpO2: 97% Temperature: 37.1 (C) / 98.7 (F) Weight: 12/05/2014 Blood Pressure 1: 134/54 Code: 8480-6 BMI: 36.3 Code: 98187-3 Heart Rate 1: 76 bpm Height: 5'9" SpO2: 93% Weight: 246 lbs 10/03/2014 Blood Pressure 1: 132/60 Code: 8480-6 Heart Rate 1: 76 bpm Height: SpO2: 95% Weight: 254 lbs 09/15/2014 Blood Pressure 1: 120/68 Code: 8480-6 BMI: 37.5 Code: 52665-8 Heart Rate 1: 76 bpm Height: 5'9" SpO2: 93% Weight: 254 lbs 09/05/2014 Blood Pressure 1: 110/50 Code: 8480-6 BMI: 37.4 Code: 66699-3 Heart Rate 1: 79 bpm Height: 5'9" SpO2: 96% Temperature: 36.3 (C) / 97.4 (F) Weight: 253 lbs 07/04/2014 Blood Pressure 1: 138/72 Code: 8480-6 BMI: 37.1 Code: 37678-8 Heart Rate 1: 72 bpm Height: 5'9" [...] 12/05/2014 occasional ache in chest- 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 PATIENT, LEVEL III Diagnosis: Cough[ICD10: R05] Diagnosis: Enterocolitis due to Clostridium difficile[ICD10: A04.7] Kavya Aburto MD, [facility] CPT-4: 36428 10/07/2016 ([id number]) [id number] EST. PATIENT, LEVEL IV Diagnosis: Cauda equina syndrome[ICD10: G83.4] Diagnosis: Pain in right shoulder[ICD10: M25.511] Diagnosis: Drug induced constipation[ICD10: K59.03] Diagnosis: Bilateral primary osteoarthritis of knee[ICD10: M17.0] Diagnosis: Primary osteoarthritis, right shoulder[ICD10: M19.011] Diagnosis: Primary osteoarthritis, left shoulder[ICD10: M19.012] Diagnosis: Polyneuropathy, unspecified[ICD10: G62.9] Kavya Aburto MD, [facility] CPT-4: 92905 07/01/2016 05019 EST. PATIENT, LEVEL III Diagnosis: Cauda equina syndrome[ICD10: G83.4] Diagnosis: Irritable bowel syndrome with diarrhea[ICD10: K58.0] Mary Aburto MD, [facility] CPT-4: 21957 05/05/2016 [id number] EST. PATIENT, LEVEL III Diagnosis: Pain in right shoulder[ICD10: M25.511] Diagnosis: Weakness[ICD10: R53.1] Diagnosis: Shortness of breath[ICD10: R06.02] Mary Aburto MD, [facility] CPT-4: 29458 02/23/2016 11366 EST. PATIENT, LEVEL III Diagnosis: Essential (primary) hypertension[ICD10: I10] Diagnosis: Other insomnia[ICD10: G47.09] Diagnosis: Irritable bowel syndrome with diarrhea[ICD10: K58.0] Diagnosis: Shortness of breath[ICD10: R06.02] Diagnosis: Weakness[ICD10: R53.1] Mary Aburto MD, [facility] CPT-4: 19208 09/16/2015 [id number] EST. PATIENT, LEVEL III Diagnosis: Diarrhea, unspecified[ICD10: R19.7] Diagnosis: Nausea[ICD10: R11.0] Mary Aburto MD, [facility] CPT-4: 94675 07/24/2015 03435 EST. PATIENT, LEVEL IV Diagnosis: Other iron deficiency anemias[ICD10: D50.8] Diagnosis: Rash and other nonspecific skin eruption[ICD10: R21] Diagnosis: Cauda equina syndrome[ICD10: G83.4] Diagnosis: Essential (primary) hypertension[ICD10: I10] Diagnosis: Other pruritus[ICD10: L29.8] Diagnosis: Shortness of breath[ICD10: R06.02] Mary Aburto MD, [facility] CPT-4: 01928 03/20/2015 90972 EST. PATIENT, LEVEL IV Diagnosis: Urinary tract infection, site not specified[ICD10: N39.0] Diagnosis: Umbilical hernia without obstruction or gangrene[ICD10: K42.9] Diagnosis: Cauda equina syndrome[ICD10: G83.4] Mary Aburto MD, [facility] CPT- 4: 28255 01/13/2015 ([id number]) 73505 EST. PATIENT, LEVEL IV Diagnosis: Iron deficiency anemia, unspecified[ICD10: D50.9] Diagnosis: Essential (primary) hypertension[ICD10: I10] Diagnosis: Hematuria, unspecified[ICD10: R31.9] Kavya Aburto MD, [facility] CPT-4: 63323 12/05/2014 ([id number]) 24225 EST. PATIENT, LEVEL IV Diagnosis: ESSENTIAL HYPERTENSION[ICD9: 401.9] Diagnosis: COPD (chronic obstructive pulmonary disease)[ICD9: 496] Diagnosis: ANEMIA[ICD9: 285.9] Diagnosis: SHORTNESS OF BREATH[ICD9: 786.05] Kavya Aburto MD, [facility] CPT- 4: 38658 10/03/2014 ([id number]) 55354 EST. PATIENT, LEVEL IV Diagnosis: ESSENTIAL HYPERTENSION[ICD9: 401.9] Diagnosis: ANEMIA[ICD9: 285.9] Diagnosis: MALAISE AND FATIGUE[ICD9: 780.79] Darleen Aburto MD, [facility] CPT- 4: 33252 09/15/2014 ([id number]) 82602 EST. PATIENT, LEVEL III Diagnosis: UTI[ICD9: 599.0] Diagnosis: Chronic back pain[ICD9: 724.5] Kavya Aburto MD, [facility] CPT-4: 29216 09/05/2014 ([id number]) OFFICE VISIT, NEW - LEVEL 4 Diagnosis: ESSENTIAL HYPERTENSION[ICD9: 401.9] Diagnosis: THRUSH[ICD9: 112.0] Diagnosis: Hyperlipidemia[ICD9: 272.4] Diagnosis: COPD (chronic obstructive pulmonary disease)[ICD9: 496] Diagnosis: Cauda equina syndrome[ICD9: 344.60] Diagnosis: History of prostate cancer[ICD9: V10.46] Kavya Aburto MD, [facility] CPT-4: 16227 07/04/2014 Plan of Care Planned Activity Notes [...] not improve. 03/30/2017 Appointment: Mary Alan WPtel: [address] [place], [place] [phone] (30 min) Complex 03/30/2017 Patient Education: Patient Medication Summary Completed 03/30/2017 Visit Plan: Cough-suspect virus-patient to monitor over the weekend-call Monday if symptoms persist and we will do a chest xray and sputum culture Cdiff-treat with flagyl as directed-call if symptoms do not resolve 10/07/2016 Appointment: Kvaya Subramanian WPtel: [phone] (30 min) Complex 10/07/2016 Patient Education: Patient Medication Summary Completed 10/07/2016 Patient Education: Obesity Completed 10/07/2016 Visit Plan: Cauda equina-chronic back pain-generalized weakness- right shoulder pain/weakness-patient to contact [facility] for mobility paperwork-will ask PT to do a mobility exam through [facility] Drug induced constipation-rx for [employer]. 07/01/2016 Visit Plan: Cauda equina-chronic back pain-generalized weakness- bilateral shoulder pain/weakness-OA knees-patient to contact [facility] for mobility paperwork-will ask PT to do a mobility exam through [facility]. Patient is non ambulatory due to cauda [...] [employer]. 07/01/2016 Appointment: Kavya Subramanian WPtel: [phone] (30 min) Complex 07/01/2016 Patient Education: [...] his surgery. 05/05/2016 Appointment: Mary Alan WPtel: [address] [place], [place] [phone] Surgical Clearance 05/05/2016 Patient Education: Patient Medication [...] [place]. 02/23/2016 Appointment: Mary Alan WPtel: [phone] [phone] (30 min) Complex 02/23/2016 Patient Education: Patient Medication Summary Completed 02/23/2016 [phone] ([facility] Complex 02/19/2016 [phone] [phone] (15 min) Moderate 10/14/2015 Appointment: Lab [...] having loose bowel movements. Keep appointment with Finishing Manager Make an appointment with supervisor gas meter repair - to follow up on shortness of breath. Weakness - pt is to contact Ramez Goldman Fercho in [facility] when he is [...] not improved. 07/24/2015 Appointment: Kavya Subramanian WPtel: [address] [place], [place] [phone] (30 min) Complex 07/24/2015 Patient Education: Patient [...] hypertension. 09/15/2014 Appointment: Darleen Aburto WPtel[facility] (15 min) Moderate 09/15/2014 Patient Education: [...] equina-increased incontinence of bowels-recommend follow up with credit risk specialist-will discuss repeat MRI with Dr Aburto-keep [...] do PT evaluation for motorized wheelchair through [employer] . Cauda equina-chronic back pain-generalized weakness-right shoulder pain/weakness- patient to contact [employer] for mobility paperwork-will ask PT to do a mobility exam through [employer] Drug induced constipation-rx for [employer]. [employer] [place] to do PT evaluation for motorized wheelchair through [employer] . Cauda equina-chronic back pain-generalized weakness-bilateral shoulder pain/weakness- OA knees-patient to contact [employer] for mobility paperwork-will ask PT to do a mobility exam through [employer]. Patient is non ambulatory due to cauda [...] incontinence of bowels- recommend follow up with credit risk specialist-will discuss repeat MRI with Dr Aburto-keep [...] 4. Make an appointment with your supervisor gas meter repair - to follow up on shortness of breath. 5. Call us when you here about the mobility paperwork and we will fill out the paperwork. Ramezjayson Godoy in [facility] . Hypertension - The patient has [...] having loose bowel movements. Keep appointment with Finishing Manager Make an appointment with supervisor gas meter repair - to follow up on shortness of breath. Weakness - pt is to contact Ramez Goldman Fercho in [facility] when he is [...]
--- OUTSIDE RECORDS SUMMARY | 2018-07-19 10:11 | XMS REPORT | Continuity of Care Document ---
Author Organization Unknown Address Unknown Allergies Active Description Code Type Severity Reaction Onset Reported/Identified Relationship to Patient Clinical Status Yes SURGICAL TAPE SURGICAL TAPE Moderate IRRITATES SKIN 08/16/2010 Yes CRESTOR CRESTOR Mild N/A 08/30/2011 Yes LIPITOR LIPITOR Mild N/A 08/30/2011 Yes NIASPAN NIASPAN Mild N/A 08/30/2011 Yes ZOCOR ZOCOR Mild N/A 08/30/2011 Medications There is no data. Problems Date Dx Coded Attending Type Code [...] BARRETT MD Ot 414.01 CORONARY ATHEROSCLEROSIS OF [place] CORON 12/12/2013 KIMBERLI BARRETT MD Ot 414.02 [...] MD Ot V58.69 OT MED,LT,CURRENT USE 02/03/2014 ARNOLD DOYLE, KIMBERLI Marte Ot 401.9 02/03/2014 KIMBERLI BARRETT MD Ot 443.9 09/24/2014 ZION HUYNH Ot 272.4 09/24/2014 ZION HUYNH Ot 401.9 09/24/2014 ZION HUYNH Ot 414.9 09/24/2014 ZION HUYNH Ot 433.10 10/16/2014 RENÉE DOYLE, JUSTIN Quinteros Ot 786.09 10/29/2014 RENÉE DOYLE, JUSTIN Quinteros Ot 786.09 01/20/2015 ADRIANA GALLO CERTIFIED NUCLEAR MEDICINE TECHNOLOGIST Ot K42.9 01/20/2015 ADRIANA GALLO CERTIFIED NUCLEAR MEDICINE TECHNOLOGIST Ot R10.9 02/06/2015 ADRIANA GALLO CERTIFIED NUCLEAR MEDICINE TECHNOLOGIST Ot E86.0 02/06/2015 ADRIANA GALLO CERTIFIED NUCLEAR MEDICINE TECHNOLOGIST Ot N39.0 02/10/2015 ADRIANA GALLO CERTIFIED NUCLEAR MEDICINE TECHNOLOGIST Ot K42.9 02/10/2015 ADRIANA GALLO CERTIFIED NUCLEAR MEDICINE TECHNOLOGIST Ot R10.9 08/11/2015 ADRIANA GALLO CERTIFIED NUCLEAR MEDICINE TECHNOLOGIST Ot E86.0 DEHYDRATION 08/28/2015 ADRIANA GALLO CERTIFIED NUCLEAR MEDICINE TECHNOLOGIST Ot E86.0 DEHYDRATION 03/03/2016 Ot 789.00 ABDOMINAL [...] NOS 03/03/2016 Ot 414.01 CORONARY ATHEROSCLEROSIS OF [place] CORON 03/03/2016 Ot 786.50 CHEST PAIN NOS 03/03/2016 Ot 724.02 SPINAL STENOSIS, LUMBAR REG, W/OUT NEURO 03/03/2016 JUAN DOYLE, JORGE Rodriguez Ot 716.91 ARTHROPATHY NOS-SHLDER 03/03/2016 JUAN DOYLE, JORGE Rodriguez Ot 840.9 SPRAIN SHOULDER/ARM NOS 03/03/2016 JUAN DOYLE, JORGE Rodriguez Ot E928.9 ACCIDENT NOS 03/03/2016 ARNOLD DOYEL, KIMBERLI Marte Ot 272.4 HYPERLIPIDEMIA NEC/NOS 03/03/2016 KIMBERLI BARRETT [...] W O CEREBRAL IN 03/03/2016 RENÉE DOYLE, UJJAVAL Neli Ot 786.09 RESPIRATORY ABNORM NEC 03/03/2016 ADRIANA [...] DO Ot I25.10 ATHSCL HEART DISEASE OF [place] CORONARY 05/16/2016 JALEEL MILLS DO Ot J44.9 CHRONIC OBSTRUCTIVE PULMONARY DISEASE, U 05/16/2016 JALEEL MILLS DO Ot L76.32 POSTPROC HEMATOMA OF SKIN, SUBCU FOLLOWI 05/16/2016 JALEEL MILLS DO Ot R10.84 GENERALIZED ABDOMINAL PAIN 05/16/2016 JALEEL MILLS DO Ot Z79.02 LONGTERM (CURRENT) USE OF ANTITHROMBOTI 05/16/2016 JALEEL MILLS DO, Ot Z79.899 OTHER CORPORATE JOB TITLES (CURRENT) DRUG THERAPY 05/16/2016 JALEEL MILLS DO Ot Z87.891 PERSONAL HISTORY OF NICOTINE DEPENDENCE 05/16/2016 JALEEL MILLS DO Ot Z93.3 COLOSTOMY STATUS 05/16/2016 JALEEL MILLS DO Ot Z95.1 PRESENCE OF AORTOCORONARY BYPASS GRAFT 05/17/2016 JALEEL MILLS DO Ot I25.10 ATHSCL HEART DISEASE OF [place] CORONARY 05/17/2016 JALEEL MILLS DO, Ot J44.9 CHRONIC OBSTRUCTIVE PULMONARY DISEASE, U 05/17/2016 JALEEL MILLS DO Ot L76.32 POSTPROC HEMATOMA OF SKIN, SUBCU FOLLOWI 05/17/2016 JALEEL MILLS DO Ot R10.84 GENERALIZED ABDOMINAL PAIN 05/17/2016 JALEEL MILLS DO, Ot Z79.02 LONGTERM (CURRENT) USE OF ANTITHROMBOTI 05/17/2016 JALEEL MILLS DO, Ot Z79.899 OTHER LONGTERM (CURRENT) DRUG THERAPY 05/17/2016 JALEEL MILLS DO, Ot Z87.891 PERSONAL HISTORY OF NICOTINE DEPENDENCE [...] DO Ot E78.00 PURE HYPERCHOLESTEROLEMIA, UNSPECIFIED 05/25/2016 JIMMY GOOD DO Ot 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1 CARDIAC MURMUR, UNSPECIFIED 05/25/2016 LATISHA LIUJIMMY Ot Z68.36 BODY MASS INDEX (BMI) 36.0-36.9, ADULT 05/25/2016 LATISHA LIUJIMMY Ot Z85.46 PERSONAL HISTORY OF MALIGNANT NEOPLASM O 05/25/2016 LATISHA LIUJIMMY Ot Z86.73 PRSNL HX OF TIA (TIA), AND CEREB INFRC W 05/25/2016 [facility] Ot Z87.891 PERSONAL HISTORY OF NICOTINE DEPENDENCE 05/25/2016 LATISHA LIUJIMMY Ot Z90.79 ACQUIRED ABSENCE OF OTHER GENITAL ORGAN( 05/25/2016 LATISHA LIUJIMMY Ot Z93.3 COLOSTOMY STATUS 05/25/2016 LATISHA LIUJIMMY Ot Z93.50 UNSPECIFIED CYSTOSTOMY STATUS 05/25/2016 [facility] Ot Z95.1 PRESENCE OF AORTOCORONARY BYPASS GRAFT 05/26/2016 LATISHA LIUJIMMY Ot D64.9 ANEMIA, UNSPECIFIED 05/26/2016 LATISHA LIUJIMMY Ot D72.829 ELEVATED WHITE BLOOD CELL COUNT, UNSPECI 05/26/2016 LATISHA LIUJIMMY Ot E66.9 OBESITY, UNSPECIFIED 05/26/2016 LATISHA LIUJIMMY Ot E78.00 PURE HYPERCHOLESTEROLEMIA, UNSPECIFIED 05/26/2016 LATISHA LIUJIMMY Ot 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 05/26/2016 LATISHA LIUJIMMY Ot I10 ESSENTIAL (PRIMARY) HYPERTENSION 05/26/2016 LATISHA JIMMY LIU Ot I25.10 ATHSCL HEART DISEASE OF [place] CORONARY 05/26/2016 LATISHA LIUIJMMY Ot J18.9 PNEUMONIA, UNSPECIFIED ORGANISM 05/26/2016 LATISHA JIMMY LIU Ot J44.9 CHRONIC OBSTRUCTIVE PULMONARY DISEASE, U 05/26/2016 LATISHA JIMMY LIU Ot K21.9 GASTRO-ESOPHAGEAL REFLUX DISEASE WITHOUT 05/26/2016 DAREKDER JIMMY Ot L30.9 DERMATITIS, UNSPECIFIED 05/26/2016 LATISHA LIUJIMMY Ot N39.0 URINARY TRACT INFECTION, SITE NOT SPECIF 05/26/2016 RADHATHIAGO JIMMY LIU Ot R01.1 CARDIAC MURMUR, UNSPECIFIED 05/26/2016 LATISHA LIUJIMMY Ot Z68.36 BODY MASS INDEX (BMI) 36.0-36.9, ADULT 05/26/2016 RADHAAMADOSARAH JIMMY LIU Ot Z85.46 PERSONAL HISTORY OF MALIGNANT NEOPLASM [...] PRESENCE OF AORTOCORONARY BYPASS GRAFT 05/27/2016 LATISHA JIMMY LIU Ot D64.9 ANEMIA, UNSPECIFIED 05/27/2016 LATISHA JIMMY LIU Ot D72.829 ELEVATED WHITE BLOOD CELL COUNT, UNSPECI 05/27/2016 LATISHA JMIMY LIU Ot E66.9 OBESITY, UNSPECIFIED 05/27/2016 LATISHA LIUJIMMY Ot E78.00 PURE HYPERCHOLESTEROLEMIA, UNSPECIFIED 05/27/2016 LATISHA JIMMY LIU Ot 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 05/27/2016 GELLENDER JIMMY LIU Ot I10 ESSENTIAL (PRIMARY) HYPERTENSION 05/27/2016 LATISHA LIU, JIMMY Peoples Ot I25.10 ATHSCL HEART DISEASE OF [place] CORONARY 05/27/2016 LATISHA LIU, JIMMY Peoples Ot J18.9 PNEUMONIA, UNSPECIFIED ORGANISM 05/27/2016 LATISHA LIU, JIMMY Peoples Ot J44.9 CHRONIC OBSTRUCTIVE PULMONARY DISEASE, U 05/27/2016 LATISHA LIU, JIMMY Peoples Ot K21.0 GASTRO-ESOPHAGEAL REFLUX DISEASE WITH ES 05/27/2016 GELLENDER DO, JIMMY Peoples Ot K21.9 GASTRO-ESOPHAGEAL REFLUX DISEASE WITHOUT 05/27/2016 GELLENDER DO, JIMMY Peoples Ot K29.70 GASTRITIS, UNSPECIFIED, WITHOUT BLEEDING 05/27/2016 DAREKDER , JIMMY Peoples Ot K44.9 DIAPHRAGMATIC HERNIA WITHOUT OBSTRUCTION 05/27/2016 RADHALENDER DO, JIMMY Peoples Ot L30.9 DERMATITIS, UNSPECIFIED 05/27/2016 LATISHA LIU, JIMMY Peoples Ot N39.0 URINARY TRACT INFECTION, SITE NOT SPECIF 05/27/2016 LATISHA LIU, JIMMY Peoples Ot R01.1 CARDIAC MURMUR, UNSPECIFIED 05/27/2016 LATISHA LIU, JIMMY Peoples Ot T83.510A I/I REACT D/T CYSTOSTOMY CATHETER, INITI 05/27/2016 LATISHA LIU, JIMMY Peoples Ot Z68.36 BODY MASS INDEX (BMI) 36.0-36.9, ADULT 05/27/2016 LATISHA LIU, JIMMY Peoples Ot Z85.46 PERSONAL HISTORY OF MALIGNANT NEOPLASM O 05/27/2016 LATISHA LIUJIMMY Ot Z86.73 PRSNL HX OF TIA (TIA), AND CEREB INFRC W 05/27/2016 LATISHA LIU, JIMMY Peoples Ot Z87.891 PERSONAL HISTORY OF NICOTINE DEPENDENCE 05/27/2016 LATISHA LIUJIMMY Ot Z90.79 ACQUIRED ABSENCE OF OTHER GENITAL ORGAN( 05/27/2016 LATISHA LIU, JIMMY Peoples Ot Z93.3 COLOSTOMY STATUS 05/27/2016 RADHALENDER DO, JIMMY Peoples Ot Z93.50 UNSPECIFIED CYSTOSTOMY STATUS 05/27/2016 LATISHA LIU, JIMMY Peoples Ot Z95.1 PRESENCE OF AORTOCORONARY BYPASS GRAFT 05/08/2018 JUAN DOYLE, JORGE Rodriguez Ot 716.91 ARTHROPATHY NOS-SHLDER 05/08/2018 JUAN DOYLE, JORGE Rodriguez Ot 840.9 SPRAIN SHOULDER/ARM NOS 05/08/2018 JUAN DOYLE, JORGE Rodriguez Ot E928.9 ACCIDENT NOS 05/08/2018 ARNOLD DOYLE, KIMBERLI Marte Ot 272.4 HYPERLIPIDEMIA NEC/NOS 05/08/2018 ARNOLD DOYLE, KIMBERLI Marte Ot 401.9 HYPERTENSION NOS 05/08/2018 ARNOLD DOYLE, KIMBERLI Marte Ot 414.00 CORON ATHEROSCLER NOS TYPE VESSEL, NATIV 05/08/2018 KIMBERLI BARRETT MD Ot 401.9 HYPERTENSION NOS 05/08/2018 ARNOLD DOYLE, KIMBERLI Marte Ot 443.9 PERIPH VASCULAR DIS NOS 05/08/2018 ZION HUYNH Ot 272.4 HYPERLIPIDEMIA NEC/NOS 05/08/2018 ZION HUYNH Ot 401.9 HYPERTENSION NOS 05/08/2018 ZION HUYNH Ot 414.9 CHR ISCHEMIC HRT DIS NOS 05/08/2018 ZION HUYNH Ot 433.10 CAROTID ARTERY OCCLUSION W O CEREBRAL IN 05/08/2018 RENÉE DOYLE, UJJARRETT Quinteros Ot 786.09 RESPIRATORY ABNORM NEC 05/08/2018 ADRIANA GALLO CERTIFIED NUCLEAR MEDICINE TECHNOLOGIST Ot K42.9 UMBILICAL HERNIA WITHOUT OBSTRUCTION OR 05/08/2018 ADRIANA GALLO CERTIFIED NUCLEAR MEDICINE TECHNOLOGIST Ot R10.9 UNSPECIFIED ABDOMINAL PAIN 05/08/2018 ADRIANA GALLO CERTIFIED NUCLEAR MEDICINE TECHNOLOGIST Ot E86.0 DEHYDRATION 05/08/2018 ADRIANA GALLO CERTIFIED NUCLEAR MEDICINE TECHNOLOGIST Ot N39.0 URINARY TRACT INFECTION, SITE NOT SPECIF 05/08/2018 ADRIANA GALLO CERTIFIED NUCLEAR MEDICINE TECHNOLOGIST Ot E86.0 DEHYDRATION 05/08/2018 ADRIANA GALLO CERTIFIED NUCLEAR MEDICINE TECHNOLOGIST Ot M25.511 PAIN IN RIGHT SHOULDER 05/08/2018 VITALIY DO, AKIN K Ot E78.00 PURE HYPERCHOLESTEROLEMIA, UNSPECIFIED 05/08/2018 VITALIY DO, AKIN K Ot G47.30 SLEEP APNEA, UNSPECIFIED 05/08/2018 VITALIY LIU AKIN K Ot I11.0 HYPERTENSIVE HEART DISEASE WITH HEART FA 05/08/2018 VITALIY LIU AKIN K Ot I25.10 ATHSCL HEART DISEASE OF [place] CORONARY 05/08/2018 VITALIY LIU AKIN K Ot I50.9 HEART FAILURE, UNSPECIFIED 05/08/2018 AKIN BURKS DO Ot J44.9 CHRONIC OBSTRUCTIVE PULMONARY DISEASE, U 05/08/2018 AKIN BURKS DO Ot J96.00 ACUTE RESPIRATORY FAILURE, UNSP W HYPOXI 05/08/2018 AKIN BURKS DO Ot K21.9 GASTRO-ESOPHAGEAL REFLUX DISEASE WITHOUT 05/08/2018 AKIN BURKS DO Ot N39.0 URINARY TRACT INFECTION, SITE NOT SPECIF 05/08/2018 AKIN BURKS DO Ot R50.9 FEVER, UNSPECIFIED 05/08/2018 VITALIY AKIN LIU Ot R79.89 OTHER SPECIFIED ABNORMAL FINDINGS OF BLO 05/08/2018 AKIN BURKS DO Ot R91.8 OTHER NONSPECIFIC ABNORMAL FINDING OF DILMA 05/08/2018 AKIN BURKS DO Ot Z79.02 CORPORATE JOB TITLES (CURRENT) USE OF ANTITHROMBOTI 05/08/2018 AKIN BURKS DO Ot Z79.82 LONGTERM (CURRENT) USE OF ASPIRIN 05/08/2018 VITALIY AKIN LIU Ot Z82.49 FAMILY HX OF ISCHEM HEART DIS AND OTH DI 05/08/2018 AKIN BURKS DO Ot Z85.46 PERSONAL HISTORY OF MALIGNANT NEOPLASM O 05/08/2018 AKIN BURKS DO Ot Z86.73 PRSNL HX OF TIA (TIA), AND CEREB INFRC W 05/08/2018 AKIN BURKS DO Ot Z87.01 PERSONAL HISTORY OF PNEUMONIA (RECURRENT 05/08/2018 AKIN BURKS DO Ot Z87.19 PERSONAL HISTORY OF OTHER DISEASES OF TH 05/08/2018 AKIN BURKS DO Ot Z87.440 PERSONAL HISTORY OF URINARY (TRACT) INFE 05/08/2018 AKIN BURKS DO Ot Z87.891 PERSONAL HISTORY OF NICOTINE DEPENDENCE 05/08/2018 AKIN BURKS DO Ot Z90.49 ACQUIRED ABSENCE OF OTHER SPECIFIED PART 05/08/2018 AKIN BURKS DO Ot Z90.79 ACQUIRED ABSENCE OF OTHER GENITAL ORGAN( 05/08/2018 AKIN BURKS DO Ot Z90.89 ACQUIRED ABSENCE OF OTHER ORGANS 05/08/2018 AKIN BURKS DO Ot Z91.048 OTHER NONMEDICINAL SUBSTANCE ALLERGY STA 05/08/2018 AKIN BURKS DO Ot Z95.1 PRESENCE OF AORTOCORONARY BYPASS GRAFT 05/08/2018 AKIN BURKS DO Ot Z95.5 PRESENCE OF CORONARY ANGIOPLASTY IMPLANT 05/08/2018 AKIN BURKS DO Ot Z98.890 OTHER SPECIFIED POSTPROCEDURAL STATES 05/11/2018 VITALIY LIU AKIN Mitchel Ot E78.00 PURE HYPERCHOLESTEROLEMIA, UNSPECIFIED 05/11/2018 VITALIY AKIN LIU Ot G47.30 SLEEP APNEA, UNSPECIFIED 05/11/2018 AKIN BURKS DO Ot I11.0 HYPERTENSIVE HEART DISEASE WITH HEART FA 05/11/2018 VITALIY AKIN LIU Ot I25.10 ATHSCL HEART DISEASE OF [place] CORONARY 05/11/2018 AKIN BURKS DO Ot I50.9 HEART FAILURE, UNSPECIFIED 05/11/2018 AKIN BURKS DO Ot J44.9 CHRONIC OBSTRUCTIVE PULMONARY DISEASE, U 05/11/2018 VITALIY AKIN LIU Ot J96.00 ACUTE RESPIRATORY FAILURE, UNSP W HYPOXI 05/11/2018 AKIN BURKS DO Ot K21.9 GASTRO-ESOPHAGEAL REFLUX DISEASE WITHOUT 05/11/2018 VITALIY AKIN LIU Ot N39.0 URINARY TRACT INFECTION, SITE NOT SPECIF 05/11/2018 AKIN BURKS DO Ot R50.9 FEVER, UNSPECIFIED 05/11/2018 VITALIY AKIN LIU Ot R79.89 OTHER SPECIFIED ABNORMAL FINDINGS OF BLO 05/11/2018 VITALIY AKIN LIU Ot R91.8 OTHER NONSPECIFIC ABNORMAL FINDING OF DILMA 05/11/2018 AKIN BURKS DO Ot Z79.02 CORPORATE JOB TITLES (CURRENT) USE OF ANTITHROMBOTI 05/11/2018 AKIN BURKS DO Ot Z79.82 CORPORATE JOB TITLES (CURRENT) USE OF ASPIRIN 05/11/2018 AKIN BURKS DO Ot Z82.49 FAMILY HX OF ISCHEM HEART DIS AND OTH DI 05/11/2018 AKIN BURKS DO Ot Z85.46 PERSONAL HISTORY OF MALIGNANT NEOPLASM O 05/11/2018 AKIN BURKS DO Ot Z86.73 PRSNL HX OF TIA (TIA), AND CEREB INFRC W 05/11/2018 AKIN BURKS DO Ot Z87.01 PERSONAL HISTORY OF PNEUMONIA (RECURRENT 05/11/2018 AKIN BURKS DO Ot Z87.19 PERSONAL HISTORY OF OTHER DISEASES OF TH 05/11/2018 AKIN BURKS DO Ot Z87.440 PERSONAL HISTORY OF URINARY (TRACT) INFE 05/11/2018 AKIN BURKS DO Ot Z87.891 PERSONAL HISTORY OF NICOTINE DEPENDENCE 05/11/2018 AKIN BURKS DO Ot Z90.49 ACQUIRED ABSENCE OF OTHER SPECIFIED PART 05/11/2018 AKIN BURKS DO Ot Z90.79 ACQUIRED ABSENCE OF OTHER GENITAL ORGAN( 05/11/2018 AKIN BURKS DO Ot Z90.89 ACQUIRED ABSENCE OF OTHER ORGANS 05/11/2018 AKIN BURKS DO Ot Z91.048 OTHER NONMEDICINAL SUBSTANCE ALLERGY STA 05/11/2018 AKIN BURKS DO Ot Z95.1 PRESENCE OF AORTOCORONARY BYPASS GRAFT 05/11/2018 AKIN BURKS DO Ot Z95.5 PRESENCE OF CORONARY ANGIOPLASTY IMPLANT 05/11/2018 AKIN BURKS DO Ot Z98.890 OTHER SPECIFIED POSTPROCEDURAL STATES 05/22/2018 JUAN DOYLE, JORGE Rodriguez Ot 716.91 ARTHROPATHY NOS-SHLDER 05/22/2018 JORGE MARTINEZ MD Ot 840.9 SPRAIN SHOULDER/ARM NOS 05/22/2018 JORGE MARTINEZ MD Ot E928.9 ACCIDENT NOS 05/22/2018 KIMBERLI BARRETT MD Ot 272.4 HYPERLIPIDEMIA NEC/NOS 05/22/2018 KIMBERLI BARRETT MD Ot 401.9 HYPERTENSION NOS 05/22/2018 KIMBERLI BARRETT MD Ot 414.00 CORON ATHEROSCLER NOS TYPE VESSEL, NATIV 05/22/2018 KIMBERLI BARRETT MD Ot 401.9 HYPERTENSION NOS 05/22/2018 KIMBERLI BARRETT MD Ot 443.9 PERIPH VASCULAR DIS NOS 05/22/2018 ZION HUYNH Ot 272.4 HYPERLIPIDEMIA NEC/NOS 05/22/2018 ZION HUYNH Ot 401.9 HYPERTENSION NOS 05/22/2018 ZION HUYNH Ot 414.9 CHR ISCHEMIC HRT DIS NOS 05/22/2018 ZION HUYNH Ot 433.10 CAROTID ARTERY OCCLUSION W O CEREBRAL IN 05/22/2018 RENÉE DOYLE, JUSTIN Quinteros Ot 786.09 RESPIRATORY ABNORM NEC 05/22/2018 ADRIANA GALLO CERTIFIED NUCLEAR MEDICINE TECHNOLOGIST Ot K42.9 UMBILICAL HERNIA WITHOUT OBSTRUCTION OR 05/22/2018 ADRIANA GALLO CERTIFIED NUCLEAR MEDICINE TECHNOLOGIST Ot R10.9 UNSPECIFIED ABDOMINAL PAIN 05/22/2018 ADRIANA GALLO CERTIFIED NUCLEAR MEDICINE TECHNOLOGIST Ot E86.0 DEHYDRATION 05/22/2018 ADRIANA GALLO CERTIFIED NUCLEAR MEDICINE TECHNOLOGIST Ot N39.0 URINARY TRACT INFECTION, SITE NOT SPECIF 05/22/2018 ADRIANA GALLO CERTIFIED NUCLEAR MEDICINE TECHNOLOGIST Ot E86.0 DEHYDRATION 05/22/2018 ADRIANA GALLO CERTIFIED NUCLEAR MEDICINE TECHNOLOGIST Ot M25.511 PAIN IN RIGHT SHOULDER 05/23/2018 ADRIANA GALLO CERTIFIED NUCLEAR MEDICINE TECHNOLOGIST Ot I50.9 HEART FAILURE, UNSPECIFIED 05/23/2018 ADRIANA GALLO CERTIFIED NUCLEAR MEDICINE TECHNOLOGIST Ot I51.7 CARDIOMEGALY 05/23/2018 ADRIANA GALLO CERTIFIED NUCLEAR MEDICINE TECHNOLOGIST Ot J18.9 PNEUMONIA, UNSPECIFIED ORGANISM 05/23/2018 ADRIANA GALLO CERTIFIED NUCLEAR MEDICINE TECHNOLOGIST Ot J98.4 OTHER DISORDERS OF LUNG 05/23/2018 ADRIANA GALLO CERTIFIED NUCLEAR MEDICINE TECHNOLOGIST Ot Z95.1 PRESENCE OF AORTOCORONARY BYPASS GRAFT 05/30/2018 JUAN DOYLE, JORGE Rodriguez Ot 716.91 ARTHROPATHY NOS-SHLDER 05/30/2018 JORGE MARTINEZ MD Ot 840.9 SPRAIN SHOULDER/ARM NOS 05/30/2018 JORGE MARTINEZ MD Ot E928.9 ACCIDENT NOS 05/30/2018 KIMBERLI BARRETT MD Ot 272.4 HYPERLIPIDEMIA NEC/NOS 05/30/2018 KIMBERLI BARRETT MD Ot 401.9 HYPERTENSION NOS 05/30/2018 KIMBERLI BARRETT MD Ot 414.00 CORON ATHEROSCLER NOS TYPE VESSEL, NATIV 05/30/2018 KIMBERLI BARRETT MD Ot 401.9 HYPERTENSION NOS 05/30/2018 KIMBERLI BARRETT MD Ot 443.9 PERIPH VASCULAR DIS NOS 05/30/2018 ZION HUYNH Ot 272.4 HYPERLIPIDEMIA NEC/NOS 05/30/2018 ZION HUYNH Ot 401.9 HYPERTENSION NOS 05/30/2018 ZION HUYNH Ot 414.9 CHR ISCHEMIC HRT DIS NOS 05/30/2018 ZION HUYNH Ot 433.10 CAROTID ARTERY OCCLUSION W O CEREBRAL IN 05/30/2018 RENÉE DOYLE, UJJAVAL M Ot 786.09 RESPIRATORY ABNORM NEC 05/30/2018 ADRIANA GALLO CERTIFIED NUCLEAR MEDICINE TECHNOLOGIST Ot K42.9 UMBILICAL HERNIA WITHOUT OBSTRUCTION OR 05/30/2018 ADRIANA GALLO CERTIFIED NUCLEAR MEDICINE TECHNOLOGIST Ot R10.9 UNSPECIFIED ABDOMINAL PAIN 05/30/2018 ADRIANA GALLO APRN Ot E86.0 DEHYDRATION 05/30/2018 ADRIANA GALLO APRN Ot N39.0 URINARY TRACT INFECTION, SITE NOT SPECIF 05/30/2018 ADRIANA GALLO CERTIFIED NUCLEAR MEDICINE TECHNOLOGIST Ot E86.0 DEHYDRATION 05/30/2018 ADRIANA GALLO CERTIFIED NUCLEAR MEDICINE TECHNOLOGIST Ot M25.511 PAIN IN RIGHT SHOULDER 05/30/2018 ADRIANA GALLO APRN Ot I50.9 HEART FAILURE, UNSPECIFIED 05/30/2018 ADRIANA GALLO CERTIFIED NUCLEAR MEDICINE TECHNOLOGIST Ot I51.7 CARDIOMEGALY 05/30/2018 ADRIANA GALLO APRN Ot J18.9 PNEUMONIA, UNSPECIFIED ORGANISM 05/30/2018 ADRIANA GALLO CERTIFIED NUCLEAR MEDICINE TECHNOLOGIST Ot J98.4 OTHER DISORDERS OF LUNG 05/30/2018 ADRIANA GALLO APRN Ot Z95.1 PRESENCE OF AORTOCORONARY BYPASS GRAFT 06/01/2018 ADRIANA GALLO APRN Ot I25.10 ATHSCL HEART DISEASE OF [place] CORONARY 06/01/2018 ADRIANA GALLO APRN Ot I51.7 CARDIOMEGALY 06/01/2018 ADRIANA GALLO APRN Ot J90 PLEURAL EFFUSION, NOT ELSEWHERE CLASSIFI 06/01/2018 ADRIANA GALLO CERTIFIED NUCLEAR MEDICINE TECHNOLOGIST Ot J98.4 OTHER DISORDERS OF LUNG 06/01/2018 ADRIANA GALLO APRN Ot 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 06/01/2018 ADRIANA GALLO APRN Ot R59.0 LOCALIZED ENLARGED LYMPH NODES 06/18/2018 ADRIANA GALLO APRN Ot I50.9 HEART FAILURE, UNSPECIFIED 06/18/2018 ADRIANA GALLO APRN Ot I51.7 CARDIOMEGALY 06/18/2018 ADRIANA GALLO APRN Ot J18.9 PNEUMONIA, UNSPECIFIED ORGANISM 06/18/2018 ADRIANA GALLO APRN Ot J98.4 OTHER DISORDERS OF LUNG 06/18/2018 ADRIANA GALLO CERTIFIED NUCLEAR MEDICINE TECHNOLOGIST Ot Z95.1 PRESENCE OF AORTOCORONARY BYPASS GRAFT 06/24/2018 ADRIANA GALLO CERTIFIED NUCLEAR MEDICINE TECHNOLOGIST Ot I51.7 CARDIOMEGALY 06/24/2018 ADRIANA GALLO CERTIFIED NUCLEAR MEDICINE TECHNOLOGIST Ot J18.9 PNEUMONIA, UNSPECIFIED ORGANISM 06/24/2018 ADRIANA GALLO CERTIFIED NUCLEAR MEDICINE TECHNOLOGIST Ot J90 PLEURAL EFFUSION, NOT ELSEWHERE CLASSIFI 07/13/2018 ADRIANA GALLO CERTIFIED NUCLEAR MEDICINE TECHNOLOGIST Ot I51.7 CARDIOMEGALY 07/13/2018 ADRIANA GALLO CERTIFIED NUCLEAR MEDICINE TECHNOLOGIST Ot J18.9 PNEUMONIA, UNSPECIFIED ORGANISM 07/13/2018 ADRIANA GALLO CERTIFIED NUCLEAR MEDICINE TECHNOLOGIST Ot J90 PLEURAL EFFUSION, NOT ELSEWHERE CLASSIFI 07/17/2018 LAUREN CHIN DO Ot Z01.818 ENCOUNTER FOR OTHER PREPROCEDURAL EXAMIN 07/17/2018 LAUREN CHIN DO Ot Z01.818 ENCOUNTER FOR OTHER PREPROCEDURAL EXAMIN 07/17/2018 LAUREN CHIN DO, Ot Z01.818 ENCOUNTER FOR OTHER PREPROCEDURAL EXAMIN 07/18/2018 LAUREN CHIN DO, Ot Z01.818 ENCOUNTER FOR OTHER PREPROCEDURAL EXAMIN Procedures Code Description Performed By Performed On [id number] EXCISION OF ESOPHAGOGASTRIC JUNCTION, EN 05/27/2016 [id number] EXCISION OF STOMACH, ENDO, DIAGN 05/27/2016 [id number] EXCISION OF STOMACH, PYLORUS, ENDO, DIAG 05/27/2016 Results Test Result Range Complete blood count (CBC) with automated white blood cell (WBC) differential - 05/16/16 00:16 Blood leukocytes automated count (number/volume) 7.2 10*3/uL 4.3-11.0 Blood erythrocytes automated count (number/volume) 3.54 10*6/uL 4.35-5.85 Venous blood hemoglobin measurement (mass/volume) 10.9 g/dL 13.3-17.7 Blood hematocrit (volume fraction) 33 % 40-54 Automated erythrocyte mean corpuscular volume 94 [foz_us] 80-99 Automated erythrocyte mean corpuscular hemoglobin (mass per erythrocyte) 31 pg 25-34 Automated erythrocyte mean corpuscular hemoglobin concentration measurement (mass/volume) 33 g/dL 32-36 Automated erythrocyte distribution width ratio 15.2 % 10.0- 14.5 Automated blood platelet count (count/volume) 338 10*3/uL 130-400 Automated blood platelet mean volume measurement 9.1 [foz_us] 7.4-10.4 Automated blood neutrophils/100 leukocytes 63 % 42-75 Automated blood lymphocytes/100 leukocytes 18 % 12-44 Blood monocytes/100 leukocytes 12 % 0-12 Automated blood eosinophils/100 leukocytes 6 % 0-10 Automated blood basophils/100 leukocytes 0 % 0-10 Blood neutrophils automated count (number/volume) 4.6 10*3 1.8-7.8 Blood lymphocytes automated count (number/volume) 1.3 10*3 1.0-4.0 Blood monocytes automated count (number/volume) 0.9 10*3 0.0- 1.0 Automated eosinophil count 0.5 10*3/uL 0.0-0.3 Automated [...] Serum or plasma sodium measurement (moles/volume) 139 mmol/L 135-145 Serum or plasma potassium measurement (moles/volume) 4.0 mmol/L 3.6-5.0 Serum or plasma chloride measurement (moles/volume) 104 mmol/L 98-107 Carbon dioxide 23 mmol/L 21-32 Serum or plasma anion gap determination (moles/volume) 12 mmol/L 5-14 Serum or plasma urea nitrogen measurement (mass/volume) 17 mg/dL 7-18 Serum or plasma creatinine measurement (mass/volume) 1.06 mg/dL 0.60-1.30 Serum or plasma urea nitrogen/creatinine mass [...] Serum or plasma aspartate aminotransferase measurement (enzymatic activity/volume) 45 U/L 5-34 Serum or plasma alanine aminotransferase measurement (enzymatic activity/volume) 52 U/L 0-55 Serum or plasma protein measurement (mass/volume) 7.6 g/dL 6.4-8.2 Serum or plasma albumin measurement (mass/volume) 3.9 g/dL 3.2-4.5 Complete blood count (CBC) with automated white blood cell (WBC) differential - 05/23/16 22:20 Blood leukocytes automated count (number/volume) 14.9 10*3/uL 4.3-11.0 Blood erythrocytes automated count (number/volume) 2.93 10*6/uL 4.35-5.85 Venous blood hemoglobin measurement (mass/volume) 9.0 g/dL 13.3-17.7 Blood hematocrit (volume fraction) 28 % 40-54 Automated erythrocyte mean corpuscular volume 94 [foz_us] 80-99 Automated erythrocyte mean corpuscular hemoglobin (mass per erythrocyte) 31 pg 25-34 Automated erythrocyte mean corpuscular hemoglobin concentration measurement (mass/volume) 33 g/dL 32-36 Automated erythrocyte distribution width ratio 15.3 % 10.0- 14.5 Automated blood platelet count (count/volume) 366 10*3/uL 130-400 Automated blood platelet mean volume measurement 8.9 [foz_us] 7.4-10.4 Automated blood neutrophils/100 leukocytes 81 % 42-75 Automated blood lymphocytes/100 leukocytes 8 % 12-44 Blood monocytes/100 leukocytes 8 % 0-12 Automated blood eosinophils/100 leukocytes 3 % 0-10 Automated blood basophils/100 leukocytes 0 % 0-10 Blood neutrophils automated count (number/volume) 12.1 10*3 1.8-7.8 Blood lymphocytes automated count (number/volume) 1.2 10*3 1.0-4.0 Blood monocytes automated count (number/volume) 1.2 10*3 0.0- 1.0 Automated eosinophil count 0.4 10*3/uL 0.0-0.3 Automated blood basophil count (count/volume) 0.0 10*3/uL 0.0-0.1 Complete urinalysis with reflex to culture - 05/23/16 22:20 Urine color determination YELLOW NRG Urine clarity determination VERY CLOUDY NRG Urine pH measurement by test strip 9 5-9 Specific gravity of urine by test strip [...] sediment leukocyte count by microscopy (number/high power field) [HPF] NRG Bacteria detection in urine sediment [...] NRG Blood erythrocyte morphology finding identification NORMAL NRG Blood lactic acid measurement (moles/volume) - 05/23/16 22:20 Blood lactic acid measurement (moles/volume) 0.77 mmol/L 0.50- 2.00 Comprehensive metabolic panel - 05/23/16 22:20 Serum or plasma sodium measurement (moles/volume) 136 mmol/L 135-145 Serum or plasma potassium measurement (moles/volume) 4.1 mmol/L 3.6-5.0 Serum or plasma chloride measurement (moles/volume) 103 mmol/L 98-107 Carbon dioxide 26 mmol/L 21-32 Serum or plasma anion gap determination (moles/volume) 7 mmol/L 5-14 Serum or plasma urea nitrogen measurement (mass/volume) 15 mg/dL 7-18 Serum or plasma creatinine measurement (mass/volume) 1.15 mg/dL 0.60-1.30 Serum or plasma urea nitrogen/creatinine mass [...] Serum or plasma aspartate aminotransferase measurement (enzymatic activity/volume) 14 U/L 5-34 Serum or plasma alanine aminotransferase measurement (enzymatic activity/volume) 18 U/L 0-55 Serum or plasma protein measurement (mass/volume) 6.5 g/dL 6.4-8.2 Serum or plasma albumin measurement (mass/volume) 3.3 g/dL 3.2-4.5 Bacterial urine culture - 05/23/16 22:20 Bacterial urine culture [id number] NR COLONY COUNT >100,000/ML NR FTX;REPORTABLE SENSITIVITY REPORTED 05/25/16 7:25 NRG Bacterial [...] Serum or plasma sodium measurement (moles/volume) 139 mmol/L 135-145 Serum or plasma potassium measurement (moles/volume) 4.3 mmol/L 3.6-5.0 Serum or plasma chloride measurement (moles/volume) 106 mmol/L 98-107 Carbon dioxide 27 mmol/L 21-32 Serum or plasma anion gap determination (moles/volume) 6 mmol/L 5-14 Serum or plasma urea nitrogen measurement (mass/volume) 14 mg/dL 7-18 Serum or plasma creatinine measurement (mass/volume) 1.12 mg/dL 0.60-1.30 Serum or plasma urea nitrogen/creatinine mass ratio 13 NRG Serum or plasma creatinine measurement with calculation of estimated glomerular filtration rate > NRG Serum or plasma glucose measurement (mass/volume) 113 mg/dL 70-105 Serum or plasma calcium measurement (mass/volume) 8.4 mg/dL 8.5-10.1 Complete blood count (CBC) with automated white blood cell (WBC) differential - 05/24/16 05:50 Blood leukocytes automated count (number/volume) 13.2 10*3/uL 4.3-11.0 Blood erythrocytes automated count (number/volume) 2.72 10*6/uL 4.35-5.85 Venous blood hemoglobin measurement (mass/volume) 8.3 g/dL 13.3-17.7 Blood hematocrit (volume fraction) 26 % 40-54 Automated erythrocyte mean corpuscular volume 96 [foz_us] 80-99 Automated erythrocyte mean corpuscular hemoglobin (mass per erythrocyte) 31 pg 25-34 Automated erythrocyte mean corpuscular hemoglobin concentration measurement (mass/volume) 32 g/dL 32-36 Automated erythrocyte distribution width ratio 15.6 % 10.0- 14.5 Automated blood platelet count (count/volume) 358 10*3/uL 130-400 Automated blood platelet mean volume measurement 9.6 [foz_us] 7.4-10.4 Automated blood neutrophils/100 leukocytes 79 % 42-75 Automated blood lymphocytes/100 leukocytes 8 % 12-44 Blood monocytes/100 leukocytes 10 % 0-12 Automated blood eosinophils/100 leukocytes 3 % 0-10 Automated blood basophils/100 leukocytes 0 % 0-10 Blood neutrophils automated count (number/volume) 10.4 10*3 1.8-7.8 Blood lymphocytes automated count (number/volume) 1.1 10*3 1.0-4.0 Blood monocytes automated count (number/volume) 1.3 10*3 0.0- 1.0 Automated eosinophil count 0.4 10*3/uL 0.0-0.3 Automated blood basophil count (count/volume) 0.0 10*3/uL 0.0-0.1 Complete blood count (CBC) with automated white blood cell (WBC) differential - 05/25/16 04:45 Blood leukocytes automated count (number/volume) 9.3 10*3/uL 4.3-11.0 Blood erythrocytes automated count (number/volume) 2.63 10*6/uL 4.35-5.85 Venous blood hemoglobin measurement (mass/volume) 8.0 g/dL 13.3-17.7 Blood hematocrit (volume fraction) 25 % 40-54 Automated erythrocyte mean corpuscular volume 95 [foz_us] 80-99 Automated erythrocyte mean corpuscular hemoglobin (mass per erythrocyte) 30 pg 25-34 Automated erythrocyte mean corpuscular hemoglobin concentration measurement (mass/volume) 32 g/dL 32-36 Automated erythrocyte distribution width ratio 15.4 % 10.0- 14.5 Automated blood platelet count (count/volume) 324 10*3/uL 130-400 Automated blood platelet mean volume measurement 9.3 [foz_us] 7.4-10.4 Automated blood neutrophils/100 leukocytes 74 % 42-75 Automated blood lymphocytes/100 leukocytes 12 % 12-44 Blood monocytes/100 leukocytes 9 % 0-12 Automated blood eosinophils/100 leukocytes 5 % 0-10 Automated blood basophils/100 leukocytes 0 % 0-10 Blood neutrophils automated count (number/volume) 6.8 10*3 1.8-7.8 Blood lymphocytes automated count (number/volume) 1.1 10*3 1.0-4.0 Blood monocytes automated count (number/volume) 0.9 10*3 0.0- 1.0 Automated eosinophil count 0.5 10*3/uL 0.0-0.3 Automated blood basophil count (count/volume) 0.0 10*3/uL 0.0-0.1 Comprehensive metabolic panel - 05/25/16 04:45 Serum or plasma sodium measurement (moles/volume) 139 mmol/L 135-145 Serum or plasma potassium measurement (moles/volume) 4.3 mmol/L 3.6-5.0 Serum or plasma chloride measurement (moles/volume) 108 mmol/L 98-107 Carbon dioxide 23 mmol/L 21-32 Serum or plasma anion gap determination (moles/volume) 8 mmol/L 5-14 Serum or plasma urea nitrogen measurement (mass/volume) 12 mg/dL 7-18 Serum or plasma creatinine measurement (mass/volume) 1.12 mg/dL 0.60-1.30 Serum or plasma urea nitrogen/creatinine mass [...] Serum or plasma aspartate aminotransferase measurement (enzymatic activity/volume) 17 U/L 5-34 Serum or plasma alanine aminotransferase measurement (enzymatic activity/volume) 22 U/L 0-55 Serum or plasma protein measurement (mass/volume) 6.0 g/dL 6.4-8.2 Serum or plasma albumin measurement (mass/volume) 2.9 g/dL 3.2-4.5 Semen free prostate specific antigen (PSA) measurement (units/volume) - 05/25/16 04:45 Prostate specific ag [mass/volume] in serum or plasma 1.29 % 0.00-4.00 RED CELLS LEUKO REDUCED AS1 - 05/25/16 09:58 RED CELLS LEUKO REDUCED AS1 TRANSFUSED 05/25/16 1706 NR Blood type T Indirect antibody screen panel - 05/25/16 09:58 ABO+Rh group ON NRG Transfusion band number [id number] [facility] Blood group antibody screen NEGATIVE NR Stool occult blood screen - 05/25/16 12:40 Stool gastrointestinal hemoglobin detection POSITIVE NEGATIVE Automated blood complete blood count (hemogram) panel - 05/26/16 06:10 Blood leukocytes automated count (number/volume) 6.8 10*3/uL 4.3-11.0 Blood erythrocytes automated count (number/volume) 3.40 10*6/uL 4.35-5.85 Venous blood hemoglobin measurement (mass/volume) 10.0 g/dL 13.3-17.7 Blood hematocrit (volume fraction) 31 % 40-54 Automated erythrocyte mean corpuscular volume 92 [foz_us] 80-99 Automated erythrocyte mean corpuscular hemoglobin (mass per erythrocyte) 29 pg 25-34 Automated erythrocyte mean corpuscular hemoglobin concentration measurement (mass/volume) 32 g/dL 32-36 Automated erythrocyte distribution width ratio 17.7 % 10.0- 14.5 Automated blood platelet count (count/volume) 350 10*3/uL 130-400 Automated blood platelet mean volume measurement 9.3 [foz_us] 7.4-10.4 Comprehensive metabolic panel - 05/26/16 06:10 Serum or plasma sodium measurement (moles/volume) 144 mmol/L 135-145 Serum or plasma potassium measurement (moles/volume) 3.7 mmol/L 3.6-5.0 Serum or plasma chloride measurement (moles/volume) 110 mmol/L 98-107 Carbon dioxide 25 mmol/L 21-32 Serum or plasma anion gap determination (moles/volume) 9 mmol/L 5-14 Serum or plasma urea nitrogen measurement (mass/volume) 11 mg/dL 7-18 Serum or plasma creatinine measurement (mass/volume) 1.01 mg/dL 0.60-1.30 Serum or plasma urea nitrogen/creatinine mass [...] Serum or plasma aspartate aminotransferase measurement (enzymatic activity/volume) 19 U/L 5-34 Serum or plasma alanine aminotransferase measurement (enzymatic activity/volume) 22 U/L 0-55 Serum or plasma protein measurement (mass/volume) 6.4 g/dL 6.4-8.2 Serum or plasma albumin measurement (mass/volume) 3.1 g/dL 3.2-4.5 Magnesium - 05/26/16 06:10 Magnesium 2.0 mg/dL 1.8-2.4 Automated blood complete blood count (hemogram) panel - 05/27/16 06:09 Blood leukocytes automated count (number/volume) 6.8 10*3/uL 4.3-11.0 Blood erythrocytes automated count (number/volume) 3.47 10*6/uL 4.35-5.85 Venous blood hemoglobin measurement (mass/volume) 10.2 g/dL 13.3-17.7 Blood hematocrit (volume fraction) 32 % 40-54 Automated erythrocyte mean corpuscular volume 92 [foz_us] 80-99 Automated erythrocyte mean corpuscular hemoglobin (mass per erythrocyte) 29 pg 25-34 Automated erythrocyte mean corpuscular hemoglobin concentration measurement (mass/volume) 32 g/dL 32-36 Automated erythrocyte distribution width ratio 16.9 % 10.0- 14.5 Automated blood platelet count (count/volume) 359 10*3/uL 130-400 Automated blood platelet mean volume measurement 9.2 [foz_us] 7.4-10.4 Comprehensive metabolic panel - 05/27/16 06:09 Serum or plasma sodium measurement (moles/volume) 140 mmol/L 135-145 Serum or plasma potassium measurement (moles/volume) 4.1 mmol/L 3.6-5.0 Serum or plasma chloride measurement (moles/volume) 105 mmol/L 98-107 Carbon dioxide 27 mmol/L 21-32 Serum or plasma anion gap determination (moles/volume) 8 mmol/L 5-14 Serum or plasma urea nitrogen measurement (mass/volume) 11 mg/dL 7-18 Serum or plasma creatinine measurement (mass/volume) 1.01 mg/dL 0.60-1.30 Serum or plasma urea nitrogen/creatinine mass [...] Serum or plasma aspartate aminotransferase measurement (enzymatic activity/volume) 19 U/L 5-34 Serum or plasma alanine aminotransferase measurement (enzymatic activity/volume) 21 U/L 0-55 Serum or plasma protein measurement (mass/volume) 6.5 g/dL 6.4-8.2 Serum or plasma albumin measurement (mass/volume) 3.2 g/dL 3.2-4.5 Influenza virus A and B antigen detection - 05/08/18 19:10 FLU RESULT NEGATIVE FOR INFLUENZA A AND B ANTIGENS BY [facility] Complete blood count (CBC) with automated white blood cell (WBC) differential - 05/08/18 19:15 Blood leukocytes automated count (number/volume) 12.2 10*3/uL 4.3-11.0 Blood erythrocytes automated count (number/volume) 3.57 10*6/uL 4.35-5.85 Venous blood hemoglobin measurement (mass/volume) 10.5 g/dL 13.3-17.7 Blood hematocrit (volume fraction) 33 % 40-54 Automated erythrocyte mean corpuscular volume 91 [foz_us] 80-99 Automated erythrocyte mean corpuscular hemoglobin (mass per erythrocyte) 29 pg 25-34 Automated erythrocyte mean corpuscular hemoglobin concentration measurement (mass/volume) 32 g/dL 32-36 Automated erythrocyte distribution width ratio 16.6 % 10.0- 14.5 Automated blood platelet count (count/volume) 322 10*3/uL 130-400 Automated blood platelet mean volume measurement 9.1 [foz_us] 7.4-10.4 Automated blood neutrophils/100 leukocytes 91 % 42-75 Automated blood lymphocytes/100 leukocytes 3 % 12-44 Blood monocytes/100 leukocytes 4 % 0-12 Automated blood eosinophils/100 leukocytes 2 % 0-10 Automated blood basophils/100 leukocytes 0 % 0-10 Blood neutrophils automated count (number/volume) 11.1 10*3 1.8-7.8 Blood lymphocytes automated count (number/volume) 0.4 10*3 1.0-4.0 Blood monocytes automated count (number/volume) 0.4 10*3 0.0- 1.0 Automated eosinophil count 0.3 10*3/uL 0.0-0.3 Automated blood basophil count (count/volume) 0.0 10*3/uL 0.0-0.1 Blood lactic acid measurement (moles/volume) - 05/08/18 19:15 Blood lactic acid measurement (moles/volume) 1.38 mmol/L 0.50- 2.00 PT panel in platelet poor plasma by coagulation assay - 05/08/18 19:15 Prothrombin time (PT) in platelet poor plasma by coagulation assay 13.9 s 12.2-14.7 INR in platelet poor plasma or blood by coagulation assay 1.1 0.8-1.4 Activated partial thromboplastin time (aPTT) in platelet poor plasma bycoagulation assay - 05/08/18 19:15 Activated partial thromboplastin time (aPTT) in platelet poor plasma bycoagulation assay 28 s 24-35 Blood manual differential performed detection - 05/08/18 19:15 Blood monocytes/100 leukocytes 1 % NRG Manual blood segmented neutrophils/100 leukocytes 93 % NRG Blood band neutrophils/100 leukocytes 3 % NRG Manual blood lymphocytes/100 leukocytes 2 % NRG Manual eosinophils/100 leukocytes in nose 1 % NRG Manual blood basophils/100 leukocytes 0 % NRG Blood anisocytosis detection by light microscopy SLIGHT [facility] Comprehensive metabolic panel - 05/08/18 19:15 Serum or plasma sodium measurement (moles/volume) 139 mmol/L 135-145 Serum or plasma potassium measurement (moles/volume) 4.6 mmol/L 3.6-5.0 Serum or plasma chloride measurement (moles/volume) 105 mmol/L 98-107 Carbon dioxide 23 mmol/L 21-32 Serum or plasma anion gap determination (moles/volume) 11 mmol/L 5-14 Serum or plasma urea nitrogen measurement (mass/volume) 24 mg/dL 7-18 Serum or plasma creatinine measurement (mass/volume) 1.25 mg/dL 0.60-1.30 Serum or plasma urea nitrogen/creatinine mass ratio 19 NRG Serum or plasma creatinine measurement with calculation of estimated glomerular filtration rate 56 NRG Serum or plasma glucose measurement (mass/volume) 111 mg/dL 70-105 Serum or plasma calcium measurement (mass/volume) 9.4 mg/dL 8.5-10.1 Serum or plasma total bilirubin measurement (mass/volume) 0.6 mg/dL 0.1-1.0 Serum or plasma alkaline phosphatase measurement (enzymatic activity/volume) 113 U/L 40-136 Serum or plasma aspartate aminotransferase measurement (enzymatic activity/volume) 44 U/L 5-34 Serum or plasma alanine aminotransferase measurement (enzymatic activity/volume) 55 U/L 0-55 Serum or plasma protein measurement (mass/volume) 7.5 g/dL 6.4-8.2 Serum or plasma albumin measurement (mass/volume) 3.7 g/dL 3.2-4.5 CALCIUM CORRECTED 9.6 mg/dL 8.5-10.1 Magnesium - 05/08/18 19:15 Magnesium 2.2 mg/dL 1.8-2.4 Serum or plasma troponin i.cardiac measurement (mass/volume) - 05/08/18 19:15 Serum or plasma troponin i.cardiac measurement (mass/volume) 0.071 ng/mL <0.028 Serum or plasma lithium measurement (moles/volume) - 05/08/18 19:15 BNP level 379.0 pg/mL <100.0 Bacterial blood culture - 05/08/18 19:15 Bacterial blood culture NG NRG Bacterial blood culture - 05/08/18 19:36 Bacterial blood culture NG NRG Arterial blood gas measurement - 05/08/18 19:52 Blood pCO2 40 mm[Hg] 35-45 Blood pO2 87 mm[Hg] 79-93 Arterial blood bicarbonate measurement (moles/volume) 22 mmol/L 23-27 Arterial blood base excess by calculation -2.5 mmol/L -2.5-2.5 Arterial blood oxygen saturation measurement 96 % 94-100 * Inhaled oxygen flow rate 30% BIPAP NRG Arterial blood pH measurement with patient temperature correction 7.37 7.37-7.43 Arterial blood carbon dioxide, total measurement (moles/volume) 22.7 mmol/L 21.0-31.0 Body site RIGHT RADIAL NRG Assessment of wrist artery patency prior to arterial puncture POSITIVE NRG Setting of ventilation mode NO NRG Measurement of body temperature 102.1 NRG Complete urinalysis with reflex to culture - 05/08/18 20:09 Urine color determination YELLOW NRG Urine clarity determination VERY CLOUDY NRG Urine pH measurement by test strip 8 5-9 Specific gravity of urine by test strip 1.010 1.016-1.022 Urine protein assay by test strip, semi-quantitative 2+ NEGATIVE Urine glucose detection by automated test [...] sediment leukocyte count by microscopy (number/high power field) [HPF] NRG Bacteria detection in urine sediment by light microscopy LARGE NRG Crystals detection in urine sediment by light microscopy NONE NRG Casts detection in urine sediment by light microscopy NONE NRG Mucus detection in urine sediment by light microscopy NEGATIVE NRG Complete urinalysis with reflex to culture NO NRG Bacterial urine culture - 05/08/18 20:09 Bacterial urine culture [id number] NRG COLONY COUNT >100,000/ML NRG FTX;REPORTABLE SUSCEPTIBILITY REPORT RCD 05/12 08:05 NRG FREE TEXT ENTRY 2 METHICILLIN RESISTANT STAPH AUREUS NRG FREE TEXT ENTRY 3 RESISTANT ORGANISM/CONTACT PRECAUTIONS NR RML Sensitivity Panel - 05/08/18 20:09 Gentamicin susceptibility test by minimum inhibitory concentration > NRG Trimethoprim/sulfamethoxazole susceptibility test by minimum inhibitoryconcentration R NRG Levofloxacin susceptibility test by minimum inhibitory concentration > NRG Ampicillin susceptibility test by minimum inhibitory concentration > NRG Cefazolin susceptibility test by minimum inhibitory concentration 16 NRG Ceftriaxone susceptibility test by minimum inhibitory concentration <= NRG Ciprofloxacin susceptibility test by minimum inhibitory concentration > NRG Nitrofurantoin susceptibility test by minimum inhibitory concentration > NRG Amoxicillin and clavulanate potassium susc ANITHA <= NRG RML Sensitivity Panel - 05/08/18 20:09 Oxacillin susceptibility test by minimum inhibitory concentration R NRG Trimethoprim/sulfamethoxazole susceptibility test by minimum inhibitoryconcentration S NRG Vancomycin susceptibility test by minimum inhibitory concentration 1 NRG Levofloxacin susceptibility test by minimum inhibitory concentration 4 NRG Rifampin susceptibility test by minimum inhibitory concentration <= NRG Cefazolin susceptibility test by minimum inhibitory concentration > NRG Nitrofurantoin susceptibility test by minimum inhibitory concentration <= NRG Penicillin G susceptibility test by minimum inhibitory concentration > NR RML Sensitivity Panel - 05/08/18 20:09 Gentamicin susceptibility test by minimum inhibitory concentration <= NRG Levofloxacin susceptibility test by minimum inhibitory concentration > NRG Tobramycin susceptibility test by minimum inhibitory concentration S NRG Piperacillin/tazobactam susceptibility test by minimum inhibitory concentration = NRG Ciprofloxacin susceptibility test by minimum inhibitory concentration > NRG Meropenem susceptibility test by minimum inhibitory concentration 0.5 NRG Aztreonam susceptibility test by minimum inhibitory concentration 4 NRG Cefepime susceptibility test by minimum inhibitory concentration 2 NRG Imipenem susceptibility test by minimum inhibitory concentration 2 NRG Ceftazidime susceptibility test by minimum inhibitory concentration <= NRG Encounters ACCT No. Visit Date/Time Discharge Status Pt. Type Provider Facility Loc./Unit Complaint [id number] 07/17/2018 14:00:00 07/17/2018 15:07:00 DIS Outpatient LAUREN CHIN DO [facility] PREOP BRONCHOSCOPY [id number] 07/10/2018 15:15:00 07/10/2018 23:59:59 CLS Preadmit BRYN CAM APRN [facility] RT COUGH,DYSPNEA [id number] 06/22/2018 16:26:00 06/22/2018 23:59:59 CLS Outpatient ADRIANA GALLO APRN [facility] RAD PERSISTANT/ATYPICAL PNEUMNIA [id number] 05/31/2018 14:38:00 05/31/2018 23:59:59 CLS Outpatient ADRIANA GALLO APRN [facility] RAD LUNG DENSITY/NODULE [id number] 05/22/2018 12:45:00 05/22/2018 23:59:59 CLS Outpatient ADRIANA GALLO APRN [facility] RAD CHF,PNEUMKONIA [id number] 05/08/2018 19:06:00 05/08/2018 23:29:00 DIS Emergency AKIN BURKS DO [facility] ER FEVER,CHILLS [id number] 05/24/2016 00:32:00 05/27/2016 17:46:00 DIS Inpatient JIMMY GOOD DO [facility] 4TH FEVER,UTI ,RLL WEAKNESS [id number] 05/15/2016 22:45:00 05/16/2016 01:15:00 DIS Emergency JALEEL MILLS DO [facility] ER AB PAIN DISCOLORATION 4 DAYS POST COLONOSCOPY [id number] 03/03/2016 11:06:00 03/03/2016 23:59:59 CLS Outpatient ADRIANA GALLO APRN [facility] RAD RIGHT SHOULDER PAIN [id number] 07/24/2015 14:21:00 07/24/2015 23:59:59 CLS Outpatient ADRIANA GALLO CERTIFIED NUCLEAR MEDICINE TECHNOLOGIST [facility] DEHYDRATION [id number] 01/14/2015 15:32:00 01/14/2015 23:59:59 CLS Outpatient ADRIANA GALLO CERTIFIED NUCLEAR MEDICINE TECHNOLOGIST [facility] UTI,DEHYDRATION [id number] 01/13/2015 09:04:00 01/13/2015 23:59:59 CLS Outpatient ADRIANA GALLO CERTIFIED NUCLEAR MEDICINE TECHNOLOGIST [facility] RAD ABD PAIN,UNBILICAL HERNIA [id number] 10/06/2014 14:18:00 10/06/2014 23:59:59 CLS Outpatient RENÉE DOYLE, JUSTIN Quinteros [facility] RT DSYPNEA [id number] 09/02/2014 13:35:00 09/02/2014 23:59:59 CLS Outpatient ZION HUYNH [facility] CARD CAD,STEVE,HTN [id number] 01/06/2014 09:13:00 01/06/2014 23:59:59 CLS Outpatient KIMBERLI BARRETT MD [facility] RAD HTN,PVD [id number] 12/11/2013 06:51:00 12/12/2013 10:00:00 DIS Outpatient KIMBERLI BARRETT MD [facility] CATH ABN STRESS TEST,CORONARY ARTERY DISEASE,HTN,HLP [id number] 12/04/2013 12:06:00 12/04/2013 23:59:59 CLS Outpatient KIMBERLI BARRETT MD [facility] CARD CAD,HTN,HLP,STEVE [id number] 08/27/2013 10:32:00 08/27/2013 23:59:59 CLS Outpatient ZAFUTA MD, JORGE P [facility] RAD RTC [id number] 07/19/2018 07:08:00 ACT Outpatient LAUREN CHIN DO [facility] ENDO HYPOXEMIA/DYSPNEA/COUGH [id number] 03/04/2012 08:21:00 Document Registration [id number] 02/02/2012 14:34:00 Document Registration [id number] 08/31/2011 11:19:00 Document Registration [id number] 08/25/2011 08:23:00 Document Registration [id number] 06/30/2011 14:16:00 Document Registration [id number] 06/16/2011 14:33:00 Document Registration [id number] 01/26/2011 09:13:00 Document Registration [id number] 11/18/2010 08:53:00 Document Registration [id number] 10/31/2010 17:03:00 Document Registration [id number] 10/02/2010 15:01:00 Document Registration
[2018-07-19 12:00] LABS: BF OTHER CELLS 24 %; BODY FLUID APPEARENCE MKD CLDY; BODY FLUID COLOR COLORLESS; BODY FLUID SOURCE BRONCH; LYMPHOCYTES,BODY FLUID 2 %
== END 2018-07-19 09:15 | disposition home or self-care (01) ==
LOC: ENDO 07:08
PROVIDERS: ATTEND Internal Medicine Critical Care Medicine
DX: R05 Cough (principal); R91.8 Other nonspecific abnormal finding of lung field; G47.33 Obstructive sleep apnea (adult) (pediatric); R06.00 Dyspnea, unspecified; J30.9 Allergic rhinitis, unspecified; Z87.891 Personal history of nicotine dependence; Z79.02 Long term (current) use of antithrombotics/antiplatelets; Z79.899 Other long term (current) drug therapy
CPT/HCPCS: 71045; 87015; 87070; 87077; 87101; 87116; 87186; 87205; 87206; 88112; 88305; 88312; 89051; 94640

== ENCOUNTER → 2018-08-02 | Outpatient (CLI) | payer MEDICARE, OTHER ==
[2018-08-02 15:19] LABS: BASOPHILS % (AUTO) 0 % (0-10); EOSINOPHILS # (AUTO) 0.9 10^3/uL (0.0-0.3); EOSINOPHILS % (AUTO) 10 % (0-10); HEMATOCRIT 34 % (40-54); HEMOGLOBIN 10.4 G/DL (13.3-17.7); LYMPHOCYTES # (AUTO) 1.6 X 10^3 (1.0-4.0); LYMPHOCYTES % (AUTO) 17 % (12-44); MEAN CORPUSCULAR HEMOGLOBIN 27 PG (25-34); MEAN CORPUSCULAR HGB CONC 31 G/DL (32-36); MEAN CORPUSCULAR VOLUME 87 FL (80-99); MEAN PLATELET VOLUME 8.8 FL (7.4-10.4); MONOCYTES # (AUTO) 0.9 X 10^3 (0.0-1.0); MONOCYTES % (AUTO) 9 % (0-12); NEUTROPHILS # (AUTO) 6.2 X 10^3 (1.8-7.8); NEUTROPHILS % (AUTO) 65 % (42-75); PLATELET COUNT 408 10^3/uL (130-400); RED CELL DISTRIBUTION WIDTH 18.6 % (10.0-14.5); WHITE BLOOD COUNT 9.7 10^3/uL (4.3-11.0)
--- NOTE | 2018-08-02 16:37 | Diagnostic Imaging Report ---
EXAMINATION: PA and lateral chest at 3:30 p.m. INDICATION: Difficulty breathing. FINDINGS: The heart is stable in size when compared to the prior exam of 07/19/2018. The sternotomy wires and surgical clips noted previously are also again evident and no different. The previous study did show alveolar/interstitial infiltrates involving both lungs. The right hemidiaphragm was also obscured by atelectasis/infiltrate and fluid. Those findings are again evident on this study and do not seem to have changed significantly. No new parenchymal abnormality has developed. The mediastinum is prominent but no different than on the prior exam. The osseous structures are intact. IMPRESSION: 1. There are persistent alveolar/interstitial pulmonary infiltrates bilaterally as well as obscuration of the right lung base by atelectasis/infiltrate and fluid. Overall, there has been no significant change since the prior exam. 2. A followup study would be recommend for further evaluation. Dictated by: Dictated on workstation # [id number]
== END ==
LOC: RAD 15:04
PROVIDERS: ATTEND Nurse Practitioner Family
DX: I27.20 Pulmonary hypertension, unspecified (principal); G47.33 Obstructive sleep apnea (adult) (pediatric); R06.00 Dyspnea, unspecified; Z98.890 Other specified postprocedural states
CPT/HCPCS: 36415; 71046; 85025

== ENCOUNTER → 2018-08-28 | Outpatient (CLI) | payer MEDICARE, OTHER ==
[~2018-08-28] MED LIST changes: +HOLD METFORMIN - RECEIVED CONTRAST 20 ML VIAL IV SCH; +IOHEXOL 350 MG/ML 100 ML (OMNIPAQUE 350) VIAL IV ONE; +NS 100 ML (IVPB) BAG IV ONE
[2018-08-28 08:24] LABS: BASOPHILS % (AUTO) 0 % (0-10); EOSINOPHILS # (AUTO) 0.6 10^3/uL (0.0-0.3); EOSINOPHILS % (AUTO) 9 % (0-10); HEMATOCRIT 34 % (40-54); HEMOGLOBIN 10.4 G/DL (13.3-17.7); LYMPHOCYTES # (AUTO) 1.7 X 10^3 (1.0-4.0); LYMPHOCYTES % (AUTO) 23 % (12-44); MEAN CORPUSCULAR HEMOGLOBIN 27 PG (25-34); MEAN CORPUSCULAR HGB CONC 31 G/DL (32-36); MEAN CORPUSCULAR VOLUME 89 FL (80-99); MONOCYTES # (AUTO) 0.8 X 10^3 (0.0-1.0); MONOCYTES % (AUTO) 10 % (0-12); NEUTROPHILS # (AUTO) 4.3 X 10^3 (1.8-7.8); NEUTROPHILS % (AUTO) 57 % (42-75); PLATELET COUNT 409 10^3/uL (130-400); RED CELL DISTRIBUTION WIDTH 18.7 % (10.0-14.5); WHITE BLOOD COUNT 7.4 10^3/uL (4.3-11.0)
[2018-08-28 08:39] LABS: CREATININE SERUM 1.24 MG/DL (0.60-1.30)
--- NOTE | 2018-08-28 15:21 | Diagnostic Imaging Report ---
PROCEDURE: CT chest with contrast only. TECHNIQUE: Multiple contiguous axial images were obtained through the chest after administration of intravenous contrast. Auto Exposure Controls were utilized during the CT exam to meet ALARA standards for radiation dose reduction. INDICATION: Pneumonia with cough and dyspnea. CORRELATION is made to prior CT chest from 06/22/2018. FINDINGS: No axillary lymphadenopathy is seen. Small lymph nodes in the anterior mediastinum as well as in the right paratracheal location appears stable. The heart is enlarged. There is no pericardial fluid. Trace right-sided effusion or pleural thickening is noted, decreased since examination from 06/22/2018. Parenchymal evaluation again demonstrates subpleural interstitial reticular opacities in bilateral upper lobes as well as bilateral lower lobes. This may be owing to interstitial fibrotic scarring. No parenchymal mass is seen. Overall appearance appears very similar to 2 months earlier. Upper abdomen demonstrates hepatic steatosis. IMPRESSION: Chronic interstitial changes throughout both lungs, likely owing to fibrotic scarring. No acute feature is detected. There has been a decrease in right-sided effusion which is now trace. Dictated by: Dictated on workstation # [id number]
== END ==
LOC: RAD 08:01
PROVIDERS: ATTEND Internal Medicine Critical Care Medicine
DX: J18.8 Other pneumonia, unspecified organism (principal); R09.02 Hypoxemia
CPT/HCPCS: 36415; 71260; 82565; 83880; 84520; 85025

== ENCOUNTER 2018-09-17 08:13 | Outpatient (RCR) | payer MEDICARE, OTHER ==
[~2018-09-17 08:13] MED LIST changes: -HOLD METFORMIN - RECEIVED CONTRAST 20 ML VIAL IV SCH; -IOHEXOL 350 MG/ML 100 ML (OMNIPAQUE 350) VIAL IV ONE; -NS 100 ML (IVPB) BAG IV ONE
[2018-10-16] MEDS ORDERED: MELA5CAP PO (08:41)
[2018-10-16] MEDS ORDERED: PANT40TA3 PO (08:41)
[2018-10-16] MEDS ORDERED: ALIR75PE SC (08:41)
[2018-10-16] MEDS ORDERED: DULO30CA49 PO (08:41)
[2018-10-16] MEDS ORDERED: MULT1TAB69 PO (08:41)
[2018-10-16] MEDS ORDERED: CHOL400C9 PO (08:41)
[2018-10-16] MEDS ORDERED: ALBU2.5V4 NEB (08:41)
[2018-10-16] MEDS ORDERED: POLY17PO6 PO (08:41)
[2018-10-29] MEDS ORDERED: PRD20T PO (08:52)
[2018-10-29] MEDS ORDERED: DOCU100C37 PO (08:52)
[2018-10-29] MEDS ORDERED: POTA10CA43 PO (08:52)
[2018-10-29] MEDS ORDERED: LOSA100T57 PO (08:52)
[2018-10-29] MEDS ORDERED: CLON0.2T PO (08:52)
[2018-11-25] MEDS ORDERED: METR-145 PO (03:28)
[2018-11-26] MEDS ORDERED: LOSA50TA63 PO (09:37)
[2018-11-26] MEDS ORDERED: CLON0.1T PO (09:44)
[2018-11-26] MEDS ORDERED: SULF-222 PO (09:45)
[2018-11-26] MEDS ORDERED: POTA10TA10 PO (09:48)
[2018-12-11] MEDS ORDERED: PRD20T PO (08:25)
[2018-12-11] MEDS ORDERED: HYDR-3923 PO (08:25)
[2018-12-11] MEDS ORDERED: CLON0.2T PO (08:25)
== END 2018-12-16 | disposition home or self-care (01) ==
LOC: PULM 08:13
PROVIDERS: ATTEND Internal Medicine Critical Care Medicine
DX: J44.9 Chronic obstructive pulmonary disease, unspecified (principal); G47.33 Obstructive sleep apnea (adult) (pediatric); R09.02 Hypoxemia; E66.9 Obesity, unspecified
CPT/HCPCS: 99211

== ENCOUNTER 2018-10-15 15:24 | Inpatient (IN) | payer MEDICARE, OTHER ==
[~2018-10-15] VITALS: Ht 177.8 cm; Wt 111.3 kg
[~2018-10-15 15:24] MED LIST changes: -ALBU2.5V4 NEB; -ALIR75PE SC; -CHOL400C9 PO; -DULO30CA49 PO; -MELA5CAP PO; -MULT1TAB69 PO; -POLY17PO6 PO
[2018-10-15 15:40] VITALS: BP 133/72
--- NOTE | 2018-10-15 15:40 | NUR ---
JAMILAJALEEL Melara admitted to room 408-1, with an admitting diagnosis of PNEUMONIA, on 10/15/18 from DIRECT ADMIT via ELECTRIC SCOOTER, accompanied by . JALEEL MARINO introduced to surroundings, call light, bed controls, phone, TV, temperature control, lights, meal times, smoking policy, visitor policy, side rail policy, bathrooms and showers. Patient Rights given to patient in the handbook. JALEEL MARINO verbalizes understanding that [facility] is not responsible for the loss or damage to any personal effects or valuables that are kept in the patients posession during their hospitalization. The following Patient Care Plans were discussed with the PATIENT: Discharge Planning, PNEUMONIA and KNOWELEDGE DEFICIT. JALEEL MARINO verbalizes understanding of Interdisciplinary Patient Education. Patient and/or family were informed about the Rapid Response Team and its purpose.
[2018-10-15] MEDS ORDERED: PIPERACILLIN/TAZO 4.5 GM/NS 100 ML IV NR ×2 (16:15)
[2018-10-15] MEDS ORDERED: RT-ALBUTEROL/IPRATROPIUM 3 ML (DUONEB) VIAL IH PRN (16:15)
[2018-10-15] MEDS ORDERED: VANCOMYCIN 2000 MG/NS 500 ML IVPB IV NR ×2 (16:30)
[2018-10-15] MEDS ORDERED: CATHETER FLUSH 10 ML SYR IV PRN (16:30)
[2018-10-15] MEDS: ENOXAPARIN 40 MG/0.4 ML (LOVENOX) SYR SC SCH (16:57)
[2018-10-15] MEDS: NS IV 1000 ML 1,000 ML IV SCH (16:57)
[2018-10-15 16:59] LABS: BASOPHILS % (AUTO) 0 % (0-10); EOSINOPHILS # (AUTO) 0.7 10^3/uL (0.0-0.3); EOSINOPHILS % (AUTO) 6 % (0-10); HEMATOCRIT 28 % (40-54); HEMOGLOBIN 8.4 G/DL (13.3-17.7); LYMPHOCYTES # (AUTO) 1.5 X 10^3 (1.0-4.0); LYMPHOCYTES % (AUTO) 13 % (12-44); MEAN CORPUSCULAR HEMOGLOBIN 27 PG (25-34); MEAN CORPUSCULAR HGB CONC 31 G/DL (32-36); MEAN CORPUSCULAR VOLUME 87 FL (80-99); MEAN PLATELET VOLUME 8.9 FL (7.4-10.4); MONOCYTES # (AUTO) 1.2 X 10^3 (0.0-1.0); MONOCYTES % (AUTO) 10 % (0-12); NEUTROPHILS # (AUTO) 8.2 X 10^3 (1.8-7.8); NEUTROPHILS % (AUTO) 71 % (42-75); PLATELET COUNT 400 10^3/uL (130-400); RED CELL DISTRIBUTION WIDTH 18.5 % (10.0-14.5); WHITE BLOOD COUNT 11.6 10^3/uL (4.3-11.0)
[2018-10-15] MEDS: methylPREDNISolone 40 MG/ML (Solu-MEDROL) VIAL IV SCH ×2 (17:01→23:43)
[2018-10-15 17:27] LABS: ALBUMIN 3.5 GM/DL (3.2-4.5); BILIRUBIN,TOTAL 0.4 MG/DL (0.1-1.0); CALCIUM 9.2 MG/DL (8.5-10.1); CREATININE SERUM 1.6 MG/DL (0.60-1.30); MAGNESIUM 2.4 MG/DL (1.6-2.4); POTASSIUM 5.1 MMOL/L (3.6-5.0)
[2018-10-15] MEDS ORDERED: ACETAMINOPHEN 325 MG TABLET PO PRN (18:30)
[2018-10-15] MEDS ORDERED: ONDANSETRON 4 MG/2 ML (SDV) Z0FRAN IV PRN (18:30)
[2018-10-15 19:07] VITALS: BP 156/68
[2018-10-15] MEDS: RT-ALBUTEROL/IPRATROPIUM 3 ML (DUONEB) VIAL IH SCH ×2 (19:43→22:11)
[2018-10-15] MEDS: CARVEDILOL 12.5 MG (COREG) TABLET PO SCH (20:45)
[2018-10-15] MEDS: DOCUSATE SODIUM 100 MG (COLACE) CAP PO SCH (20:45)
[2018-10-15] MEDS: GABAPENTIN 600 MG (NEURONTIN) TAB PO SCH (20:45)
[2018-10-15 20:46] VITALS: BP 150/69
[2018-10-15] MEDS: PIPERACILLIN/TAZO 4.5 GM/NS 100 ML IV SCH ×2 (22:26)
[2018-10-16] VITALS (7 sets, daily range): BP systolic 131–170; BP diastolic 56–77
[2018-10-16] MEDS: RT-ALBUTEROL/IPRATROPIUM 3 ML (DUONEB) VIAL IH SCH ×6 (02:21→22:10)
[2018-10-16 04:54] LABS: HEMOGLOBIN 8.3 G/DL (13.3-17.7); MEAN PLATELET VOLUME 9.5 FL (7.4-10.4); RED CELL DISTRIBUTION WIDTH 18.2 % (10.0-14.5); WHITE BLOOD COUNT 7.3 10^3/uL (4.3-11.0)
[2018-10-16 05:21] LABS: CREATININE SERUM 1.28 MG/DL (0.60-1.30); MAGNESIUM 2.1 MG/DL (1.6-2.4); PHOSPHORUS 3.8 MG/DL (2.3-4.7); POTASSIUM 4.8 MMOL/L (3.6-5.0)
[2018-10-16] MEDS: methylPREDNISolone 40 MG/ML (Solu-MEDROL) VIAL IV SCH ×3 (05:36→18:21)
[2018-10-16] MEDS: PIPERACILLIN/TAZO 4.5 GM/NS 100 ML IV SCH ×6 (05:36→22:02)
--- NOTE | 2018-10-16 06:45 | Pulmonary Consultation ---
History of Present Illness History of Present Illness Date of Consultation 10/16/18 06:40 Time Seen by Provider: 06:40 Date of Admission History of Present Illness 77yo with hx of chronic lung disease, RLD directly admitted from my office secondary to worsening SOB, worsening CXR and sputum production. PT was admitted to 4th floor with Vancomycin and Zosyn. Eastman cultures are pending. He does have hx of MRSA per bronchoscopy. 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 Allergies and Home Medications Allergies Uncoded Allergies: SURGICAL TAPE (Adverse Reaction, Intermediate, IRRITATES SKIN, 08/16/10) Home Medications Albuterol Sulfate 2.5 Mg/3 Ml Vial.neb, 2.5 MG NEB Q4H PRN for SHORTNESS OF BREATH, (Reported) Alirocumab 75 Mg/1 Ml Pen.injctr, 75 MG SC EVERY 2 WEEKS, (Reported) Amlodipine Besylate 10 Mg Tablet, 10 MG PO DAILY, (Reported) Aspirin 81 Mg Tablet.dr, 81 MG PO HS, (Reported) Carvedilol 12.5 Mg Tablet, 12.5 MG PO BID, (Reported) Cholecalciferol (Vitamin D3) 400 Unit Capsule, 400 UNIT PO BID, (Reported) Clonidine HCl 0.1 Mg Tablet, 0.1 MG PO BID, (Reported) Clopidogrel Bisulfate 75 Mg Tablet, 75 MG PO DAILY, (Reported) Diclofenac Sodium 75 Mg Tablet.dr, 75 MG PO BID, (Reported) Duloxetine HCl 30 Mg Capsule.dr, 60 MG PO DAILY, (Reported) TAKES 2 (30MG) CAPSULES Furosemide 40 Mg Tablet, 40 MG PO DAILY, (Reported) Gabapentin 600 Mg Tablet, 600 MG PO BID, (Reported) Lisinopril 40 Mg Tablet, 40 MG PO DAILY, (Reported) LAST FILLED #90 3-15-19 Melatonin 5 Mg Capsule, 5 MG PO HS, (Reported) Multivitamin 1 Each Tablet, 1 TAB PO DAILY, (Reported) Oxycodone HCl 5 Mg Tablet, 15-20 MG PO DAILY, (Reported) TAKES 3-4 (5 MG) TABLETS Pantoprazole Sodium 40 Mg Tablet.dr, 40 MG PO HS, (Reported) Polyethylene Glycol 3350 17 Gm Powd.pack, 17 GM PO DAILY, (Reported) Potassium Chloride 20 Meq Tablet.er, 20 MEQ PO HS, (Reported) Past [place]dg[place]-Dlzzif Hx Patient Social History Alcohol Use: Occasionally Uses Alcohol Beverage of Choice: Beer Recreational Drug Use: No Smoking Status: Former Smoker Type Used: Cigars Former Smoker, Quit: Oct 15, 1989 2nd Hand Smoke Exposure: No Recent Foreign Travel: No Contact w/Someone Who Travel: No Recent Infectious Disease Expo: No Recent Hopitalizations: No Immunizations Up To Date PED Vaccines UTD: Yes Date of Pneumonia Vaccine: Jul 24, 2011 Date of Influenza Vaccine: Feb 20, 2018 Seasonal Allergies Seasonal Allergies: No Past Medical History Surgeries: Yes (BACK X5 ) Abdominal, Adenoidectomy, Appendectomy, Bladder Surgery, Bowel Surgery, CABG, Orthopedic, Prostatectomy, Tonsillectomy, Urinary Diversion Respiratory: Yes Pneumonia, Sleep Apnea, COPD Currently Using CPAP: Yes Currently Using BIPAP: No Cardiac: Yes (3 VESSEL CABG 1999; CARDIAC CATH WITH STENTS X 2 IN 2013) Coronary Artery Disease, Heart Murmur, High Cholesterol, Hypertension Neurological: 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) Stroke Reproductive Disorders: No Sexually Transmitted Disease: No HIV/AIDS: No Genitourinary: Yes (PROSTATE CANCER--S/P SURGERY AND SUPRAPUBIC CATHETER) Prostate Problems, Neurogenic Bladder, UTI-Chronic Gastrointestinal: Yes (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) Gastroesophageal Reflux, Gastrointestinal Bleed, Diverticulosis, Esophagitis, Hiatal Hernia, Ulcer Musculoskeletal: Yes (uses walker; CHRONIC NECK AND BACK PAIN) Degenerate Disk Disease, Arthritis, Back Injury, Chronic Back Pain Endocrine: No HEENT: Yes (GLASSES) Loss of Vision: Bilateral Hearing Impairment: Hard of Hearing Cancer: Yes Prostate Did You Recieve Any Treatments: Yes What Type of Treatment Did You: Radiation, Surgical Intervention Psychosocial: Yes Anxiety, Depression Integumentary: Yes Eczema Blood Disorders: No Adverse Reaction/Blood Tranf: No (HAS BLOOD WITH NO REACTION) Family Medical History Abdominal aortic aneurysm 19 MOTHER Dementia G8 SISTER Myocardial infarction 19 FATHER Review of Systems Time Seen by Provider: 13:35 Sepsis Event Evaluation Height, Weight, BMI Height: 5'10.00" Weight: 245lbs. 6.0oz. 111.441220pj; 35.2 BMI Method:Stated Exam Exam Vital Signs Date Time Temp Pulse Resp B/P (MAP) Pulse Ox O2 Delivery O2 Flow Rate FiO2 10/16/18 06:21 85 Nasal Cannula 4.00 10/16/18 04:30 98.4 68 20 139/67 (91) 99 NIV CPAP 4.00 10/16/18 02:22 92 Nasal Cannula 4.00 10/16/18 00:52 62 10/16/18 00:30 97.9 76 21 143/73 (96) 97 NIV CPAP 4.00 10/15/18 22:11 95 NIV CPAP 4.00 10/15/18 20:46 68 150/69 (96) 10/15/18 20:00 Nasal Cannula 4.00 10/15/18 19:33 93 Nasal Cannula 4.00 10/15/18 19:07 98.3 66 18 156/68 (97) 96 Nasal Cannula 4.00 10/15/18 19:00 68 10/15/18 17:41 62 10/15/18 15:40 93 Nasal Cannula 4.00 10/15/18 15:40 97.7 65 20 133/72 93 Nasal Cannula 4.00 10/15/18 15:40 97.7 65 20 133/72 (92) 93 Nasal Cannula 4.00 I & O 10/16/18 07:00 Intake Total 750 ml Output Total 1900 ml Balance -1150 ml Height & Weight Height: 5'10.00" Weight: 245lbs. 6.0oz. 111.780027vh; 35.2 BMI Method:Stated General Appearance: Anxious, Moderate Distress HEENT: PERRL/EOMI, Pharynx Normal Neck: Full Range of Motion, Non Tender, Supple Respiratory: Chest Non Tender, Accessory Muscle Use, Decreased Breath Sounds, Respiratory Distress Cardiovascular: Regular Rate, Rhythm, No Gallop, No JVD Capillary Refill: Less Than 3 Seconds Gastrointestinal: normal bowel sounds, non tender, soft Extremity: Normal Capillary Refill, Normal Inspection, No Pedal Edema Neurologic/Psychiatric: Alert, Oriented x3 Skin: Normal Color, Warm/Dry Lymphatic: No Adenopathy Results Lab Laboratory Tests 10/15/18 16:40 10/16/18 04:09 Assessment/Plan Assessment/Plan Worsening Hypoxia -Change to high flow vapotherm -Check stat ABG -SVNs Pneumonia - with hx of MRSA -Eastman cultures -Vanco/Zosyn -Urine strep and legionella Ag -Repeat CXR RLD with pulmonary fibrosis -Duoneb Q 4 Hx of diastolic cardiomyopathy with elevated BNP -Start Lasix 40 mg daily -Decrease IVF -Check Echo NSTEMI - probably type II -Monitor -PT is known to Dr. Barajas - will place cardiology consult. -Check EKG Obesity/deconditioning LAUREN CHIN DO Oct 16, 2018 06:45
[2018-10-16 06:53] LABS: ABG BASE EXCESS -2.6 MMOL/L (-2.5-2.5); ABG OXYGEN SATURATION 96 % (94-100); ABG PCO2 35 MMHG (35-45); ABG PH 7.41 (7.37-7.43); ABG PO2 77 MMHG (79-93); ABG TCO2 22.4 MMOL/L (21.0-31.0); ALLENS TEST YES-POS; INSPIRED O2 6L; PATIENT TEMP 98.2; VENTILATOR NO
[2018-10-16] MEDS ORDERED: MULT1TAB69 PO (08:41)
[2018-10-16] MEDS ORDERED: POLY17PO6 PO (08:41)
[2018-10-16] MEDS ORDERED: PANT40TA3 PO (08:41)
[2018-10-16] MEDS ORDERED: MELA5CAP PO (08:41)
[2018-10-16] MEDS ORDERED: ALIR75PE SC (08:41)
[2018-10-16] MEDS ORDERED: CHOL400C9 PO (08:41)
[2018-10-16] MEDS ORDERED: ALBU2.5V4 NEB (08:41)
[2018-10-16] MEDS ORDERED: DULO30CA49 PO (08:41)
--- NOTE | 2018-10-16 09:02 | NUR ---
PATIENT HAD A MEDICATION LIST ON HIS PHONE, I COMPARED IT WITH THE EXT MED HX. HE HAS LISINOPRIL HCTZ 40MG ON HIS PHONE, [facility] NEVER F[facility] LISINOPRIL HCTZ - THEY DID FILL PLAIN LISINOPRIL 40MG 05-04-18 #90. I CALLED DR. BUTLER'S OFFICE AND THEY VERIFIED LISINOPRIL 40MG WAS AUTHORIZED IN [place] HOWEVER IT WAS NOT FILLED AT [facility] OR [facility]. I NOTED THE PAST DUE FILL DATE ON THE MED REC. OTC MEDICATIONS INCLUDE: ASPIRIN 81MG HS VITAMIN D BID MTV DAILY MELATONIN HS MIRALAX DAILY
[2018-10-16] MEDS: DOCUSATE SODIUM 100 MG (COLACE) CAP PO SCH ×2 (09:11→20:00)
[2018-10-16] MEDS: GABAPENTIN 600 MG (NEURONTIN) TAB PO SCH ×2 (09:11→20:00)
[2018-10-16] MEDS: amLODIPine 10 MG (NORVASC) TAB PO SCH (09:11)
[2018-10-16] MEDS: NS IV 1000 ML 1,000 ML IV SCH (09:11)
[2018-10-16] MEDS: cloNIDine 0.1 MG (CATAPRES) TAB PO SCH (09:11)
[2018-10-16] MEDS: FUROSEMIDE 40 MG/4 ML INJ (LASIX) IVP SCH (09:11)
[2018-10-16] MEDS: CLOPIDOGREL 75 MG (PLAVIX) TABLET PO SCH (09:12)
[2018-10-16] MEDS: FAMOTIDINE 20 MG (PEPCID) TABLET PO SCH (09:12)
[2018-10-16] MEDS: CARVEDILOL 12.5 MG (COREG) TABLET PO SCH ×2 (09:12→20:00)
--- NOTE | 2018-10-16 09:50 | History & Physicial ---
History of Present Illness History of Present Illness Reason for visit/HPI PT IS A 77 Y/O MALE WHO IS KNOWN TO ME FROM CLINIC. ALBINA WAS ADMITTED BY DR. CHIN FROM HIS OFFICE. THE PATIENT REPORTS THAT HE HAD BEEN UP TO [place] TO VISIT WITH HIS HOME DESIGNER LAST WEEK AND THE HOME DESIGNER HAD HIM SEE A CAREER DEVELOPMENT SPECIALIST WHILE HE WAS UP THERE. ALBINA REPORTS THAT THE CAREER DEVELOPMENT SPECIALIST CALLED HIM TODAY TO REPORT THAT IT LOOKS LIKE HE HAS PULMONARY FIBROSIS. HE STATES THAT HE WAS HAVING QUITE A BIT OF TROUBLE OVER THE WEEKEND AND CALLED DR. CHIN'S OFFICE ON MONDAY DUE TO HIS SEVERE SHORTNESS OF BREATHING AND THE STRUGGLE HE WAS HAVING WAS TOO GREAT TO KEEP TRYING TO TOUGH IT OUT. HE REPORTS THAT HIS CHEST XRAY WAS WORSE AND DR. CHIN ADVISED ADMISSION. THE PATIENT ALSO REPORTS QUITE A BIT OF BLEEDING AND DIFFICULTY WITH HIS STOMA - REPORTING THAT HE HAD MASSIVE BLEEDING YESTERDAY MORNING AND HIS BAG JUST "FELL OFF ON THE FLOOR WITH A FLOOD OF BLOOD AND FECES FROM THE STOMA AND BAG." Date of Admission Oct 15, 2018 at 15:40 Date Seen by a Provider: Oct 16, 2018 Time Seen by a Provider: 09:40 I consulted on this patient on 10/16/18 09:40 Attending Physician Fede Aburto MD Admitting Physician Fede Aburto MD Consult DR. GIUSEPPE BARRETT Allergies and Home Medications Allergies Uncoded Allergies: SURGICAL TAPE (Adverse Reaction, Intermediate, IRRITATES SKIN, 08/16/10) Home Medications Albuterol Sulfate 2.5 Mg/3 Ml Vial.neb, 2.5 MG NEB Q4H PRN for SHORTNESS OF BREATH, (Reported) Alirocumab 75 Mg/1 Ml Pen.injctr, 75 MG SC EVERY 2 WEEKS, (Reported) Amlodipine Besylate 10 Mg Tablet, 10 MG PO DAILY, (Reported) Aspirin 81 Mg Tablet.dr, 81 MG PO HS, (Reported) Carvedilol 12.5 Mg Tablet, 12.5 MG PO BID, (Reported) Cholecalciferol (Vitamin D3) 400 Unit Capsule, 400 UNIT PO BID, (Reported) Clonidine HCl 0.1 Mg Tablet, 0.1 MG PO BID, (Reported) Clopidogrel Bisulfate 75 Mg Tablet, 75 MG PO DAILY, (Reported) Diclofenac Sodium 75 Mg Tablet.dr, 75 MG PO BID, (Reported) Duloxetine HCl 30 Mg Capsule.dr, 60 MG PO DAILY, (Reported) TAKES 2 (30MG) CAPSULES Furosemide 40 Mg Tablet, 40 MG PO DAILY, (Reported) Gabapentin 600 Mg Tablet, 600 MG PO BID, (Reported) Lisinopril 40 Mg Tablet, 40 MG PO DAILY, (Reported) LAST FILLED #90 3-15-19 Melatonin 5 Mg Capsule, 5 MG PO HS, (Reported) Multivitamin 1 Each Tablet, 1 TAB PO DAILY, (Reported) Oxycodone HCl 5 Mg Tablet, 15-20 MG PO DAILY, (Reported) TAKES 3-4 (5 MG) TABLETS Pantoprazole Sodium 40 Mg Tablet.dr, 40 MG PO HS, (Reported) Polyethylene Glycol 3350 17 Gm Powd.pack, 17 GM PO DAILY, (Reported) Potassium Chloride 20 Meq Tablet.er, 20 MEQ PO HS, (Reported) Patient Home Medication List Home Medication List Reviewed: Yes Past Bmzynys-Jafvfm-Qhbtbe Hx Patient Social History Marrital Status: Living Status: LIVES AT HOME WITH SPOUSE Employed/Student: retired Alcohol Use: Occasionally Uses Alcohol Beverage of Choice: Beer Recreational Drug Use: No Smoking Status: Former Smoker Former Smoker, Quit: Oct 15, 1989 Type Used: Cigars 2nd Hand Smoke Exposure: No Physical Abuse Screen: No Sexual Abuse: No Recent Foreign Travel: No Contact w/other who traveled: No Recent Hopitalizations: No Recent Infectious Disease Expo: No Immunizations Up To Date Pediatric: Yes Date of Pneumonia Vaccine: Jul 24, 2011 Date of Influenza Vaccine: Feb 20, 2018 Seasonal Allergies Seasonal Allergies: No Surgeries Yes (BACK X5 ) Abdominal, Adenoidectomy, Appendectomy, Bladder Surgery, Bowel Surgery, CABG, Orthopedic, Prostatectomy, Tonsillectomy, Urinary Diversion Respiratory Yes COPD, Pneumonia Currently Using CPAP: Yes Currently Using BIPAP: No Cardiovascular Yes (3 VESSEL CABG 1999; CARDIAC CATH WITH STENTS X 2 IN 2013) Coronary Artery Disease, Heart Murmur, High Cholesterol, Hypertension Neurological 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) Stroke Reproductive System Hx Reproductive Disorders: No Sexually Transmitted Disease: No HIV/AIDS: No Genitourinary Yes (PROSTATE CANCER--S/P SURGERY AND SUPRAPUBIC CATHETER) Prostate Problems, Neurogenic Bladder, UTI-Chronic Gastrointestinal Yes (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) Gastroesophageal Reflux, Gastrointestinal Bleed, Diverticulosis, Esophagitis, Hiatal Hernia, Ulcer Musculoskeletal Yes (uses walker; CHRONIC NECK AND BACK PAIN) Degenerate Disk Disease, Arthritis, Back Injury, Chronic Back Pain Endocrine History of Endocrine Disorders: No HEENT History of HEENT Disorders: Yes (GLASSES) Loss of Vision: Bilateral Hearing Impairment: Hard of Hearing Cancer Yes Prostate Did You Recieve Any Treatments: Yes Type of Treatment: Radiation, Surgical Intervention Psychosocial History of Psychiatric Problem: Yes Behavioral Health Disorders: Anxiety, Depression Integumentary History of Skin or Integumenta: Yes Skin/Integumentary Disorders: Eczema Blood Transfusions History of Blood Disorders: No Adverse Reaction to a Blood Tr: No (HAS BLOOD WITH NO REACTION) Family Medical History Significant Family History: Heart Disease, Hypertension, Other Conditions/Hx (DEMENTIA) Family Hx: Abdominal aortic aneurysm 19 MOTHER Dementia G8 SISTER Myocardial infarction 19 FATHER Review of Systems Constitutional: No chills, No fever; malaise, weakness EENTM: vision loss; No hoarseness, No throat pain Respiratory: cough, dyspnea on exertion, short of breath, wheezing Cardiovascular: chest pain; No palpitations Gastrointestinal: No abdominal pain; other (BLEEDING FROM STOMA) Genitourinary: other (SUPRAPUBIC CATHETER) Musculoskeletal: muscle weakness Skin: other (IRRITATED SKIN FROM LEAKAGE OF STOMA) Psychiatric/Neurological: Denies Anxiety; Depressed, Weakness All Other Systems Reviewed Negative Unless Noted: Yes Physical Exam Vital Signs Vital Signs - First Documented 10/16/18 07:13 FiO2 40 Capillary Refill : Height, Weight, BMI Height: 5'10.00" Weight: 245lbs. 6.0oz. 111.910921tv; 35.2 BMI Method:Stated General Appearance: No Apparent Distress, WD/WN, Obese Eyes: Bilateral Eye Normal Inspection, Bilateral Eye PERRL, Bilateral Eye EOMI HEENT: PERRL/EOMI, Pharynx Normal Neck: Full Range of Motion, Normal Inspection, Non Tender, Supple Respiratory: Chest Non Tender, Crackles (IN MID LUNG TO BASES), Wheezing Cardiovascular: Regular Rate, Rhythm, Other (EDEMA BILATERAL LOWER EXTREMITIES AT ANKLES) Gastrointestinal: Normal Bowel Sounds, Non Tender, Soft, Other (IRREGULARLY SHAPED ABDOMEN WITH LARGE HERNIA AROUND STOMA SITE ON LEFT LOWER ABDOMEN, SUPRAPUBIC CATHETER IN MIDLINE OF ABDOMEN, SLIGHT LEAKAGE AROUND CATHETER SITE) Rectal: Deferred Extremity: Normal Capillary Refill, Non Tender, No Calf Tenderness Neurologic/Psychiatric: Alert, Oriented x3, No Motor/Sensory Deficits, Normal Mood/Affect, patient placement coordinator II-XII Norm as Tested Skin: Normal Color, Warm/Dry Lymphatic: No Adenopathy Assessment/Plan Assessment and Plan PNEUMONIA - SUSPECT MRSA PNEUMONIA HX OF MRSA IN SPUTUM NON-ST MYOCARDIAL INFARCTION - SUSPECT DUE TO RESPIRATORY DISTRESS HYPERTENSION CORONARY ARTERY DISEASE INFLAMED STOMA BLOOD LOSS FROM STOMA ANEMIA OF CHRONIC DISEASE HYPERLIPIDEMIA PERIPHERAL NEUROPATHY DEPRESSION CONSTIPATION INSOMNIA GENERALIZED WEAKNESS HX OF TOBACCOISM PNEUMONIA - SUSPECT MRSA PNEUMONIA -PT ON VANCOMYCIN, ZOSYN, CONTINUE WITH THIS TREATMENT UNTIL SPUTUM CULTURE IS FINALIZED, MONITOR SYMPTOMS. WILL HAVE TO BE ON TREATMENT FOR LONG PERIOD OF TIME DUE TO POTENTIAL COLONIZATION WITH MRSA, WILL NEED TO HAVE FAMILY TESTED AND TREATED WELL. I WOULD ALSO RECOMMEND IF THERE ARE ANIMALS IN THE HOUSE TO GET THEM TO THE [facility] AND TREATED THEY MAY BE POTENTIAL SOURCES FOR RE- INFECTION OF THE PATIENT/FAMILY. HX OF MRSA IN SPUTUM - SEE ABOVE NON-ST MYOCARDIAL INFARCTION - SUSPECT DUE TO RESPIRATORY DISTRESS - WITH KNOWN HX OF CORONARY ARTERY DISEASE - DEFER TO DR. BARRETT - TROPONIN WAS 0.112, DOWN SLIGHTLY THIS MORNING - DR. BARRETT HAS BEEN CONSULTED ON THE PATIENT - MEANWHILE CONTINUE WITH HOME REGIMEN. HYPERTENSION - RESUME HOME REGIMEN, MONITOR BLOOD PRESSURE CLOSELY WHILE PT IN HOSPITAL INFLAMED STOMA - DISCUSSED WITH WOUND CARE NURSE ANTONIO - HE WILL CULTURE THE STOMA TO SEE IF THERE IS A POSSIBILITY OF CHRONIC FUNGAL OR YEAST INFECTION AND WE WILL DO A TREATMENT WHILE WAITING ON THE CULTURE REPORT - WITH BETAMETHASONE/CLOTRIMAZOLE CREAM A PREEMPTIVE TREATMENT. BLOOD LOSS FROM STOMA AND ANEMIA OF CHRONIC DISEASE - - MONITOR H AND H, WILL TRANSFUSE IF BELOW 8 DUE TO CARDIAC DISEASE HYPERLIPIDEMIA - THE PT IS ON PRALUENT PEN - HOLD TREATMENT WHILE IN HOSPITAL PERIPHERAL NEUROPATHY - RESTARTED GABAPENTIN DEPRESSION - RESTARTED CYMBALTA CONSTIPATION - MONITOR OUTPUT - CONTINUE WITH MIRALAX TO PREVENT CONSTIPATION FROM STOMA WHICH WOULD CAUSE FURTHER INFLAMMATION OF STOMAL SITE INSOMNIA - RESTART MELATONIN GENERALIZED WEAKNESS - WILL START THERAPY ONCE WE FIND OUT WHAT IS GOING ON WITH HIS HEART HX OF TOBACCOISM Admission Diagnosis PNEUMONIA - SUSPECT MRSA PNEUMONIA HX OF MRSA IN SPUTUM NON-ST MYOCARDIAL INFARCTION - SUSPECT DUE TO RESPIRATORY DISTRESS HYPERTENSION CORONARY ARTERY DISEASE INFLAMED STOMA BLOOD LOSS FROM STOMA ANEMIA OF CHRONIC DISEASE HYPERLIPIDEMIA PERIPHERAL NEUROPATHY DEPRESSION CONSTIPATION INSOMNIA GENERALIZED WEAKNESS HX OF TOBACCOISM Admission Status: Inpatient Order (span 2 midnights) Reason for Inpatient Admission: ADMITTED INPATIENT DUE TO PNEUMONIA WITH SUSPECTED MRSA, WELL NON-ST MYOCARDIAL INFARCTION - NEED FOR IV ANTIBIOTICS, WAITNG ON CULTURE REPORT TO DETERMINE ORAL VERSUS IV ANTIBIOTICS AND FURTHER CARDIAC MEDICATION CHANGES PER DR. BARRETT Clinical Quality Measures DVT/VTE Risk/Contraindication: Risk Factor Score Per Nursin RFS Level Per Nursing on Admit: 4+=Very High FEDE ABURTO MD Oct 16, 2018 09:50
--- NOTE | 2018-10-16 10:11 | Diagnostic Imaging Report ---
EXAMINATION: Chest one view. History: Shortness of breath. Findings: Comparison is 10/15/2018. Median sternotomy wires are aligned. Coronary artery bypass graft markers are noted. Heart is enlarged but unchanged in size. No pleural effusion. No pneumothorax. There are patchy airspace opacities in both lungs which is stable. Impression: 1. Stable patchy bilateral airspace opacities concerning for pulmonary edema, less likely an infectious process. Dictated by: Dictated on workstation # [id number]
--- NOTE | 2018-10-16 10:27 | NUR ---
Initial visit with the pt (Phillip) and his daughter (Latha). The pt shared he has two children. He has a son traveling to town today to stay with the pt's , Patricia and tend to her safety and needs. The pt said his fell last Monday and thankfully broke no bones. I offered active listening as Latha and the pt shared various stressors related to the pt's health since he was [address] Aburto joined our visit, after which she requested masks and contact precautions be placed outside the pt's door due to MRSA. The daughter was informed and given contact precautions. The pt describes his beliefs as personal. He shared that he felt validated and respected, and expressed appreciation for our visit.
[2018-10-16] MEDS ORDERED: BETAMETHASONE/CLOTRIM CREAM (LOTRISONE) 45 GM TP SCH (11:30)
--- NOTE | 2018-10-16 12:13 | Consultation-Cardiology ---
HPI-Cardiology Cardiology Consultation Date of Consultation 10/16/18 Date of Admission Time Seen by Provider: 09:40 HPI 77 years old gentleman with history of coronary artery disease, CABG, multiple intervention the past, COPD, admitted for pneumonia and acute respiratory fa ilure, has been having increasing shortness of breath with cough and sputum on and off since March 2018. Reporting chest tightness usually difficulty taking a deep breath. No palpitation. No syncope, no significant pedal edema. Home Medications & Allergies Allergies: Uncoded Allergies: SURGICAL TAPE (Adverse Reaction, Intermediate, IRRITATES SKIN, 08/16/10) Home Medication List Reviewed: Yes [id number] Hx Patient Social History Marital Status: Living Status: LIVES AT HOME WITH SPOUSE Employed/Student: retired Alcohol Use: Occasionally Uses Recreational Drug Use: No Smoking Status: Former Smoker Former smoker/When Quit: Dec 11, 1988 Type Used: Cigars 2nd Hand Smoke Exposure: No Recent Foreign Travel: No Recent Infectious Disease Expo: No Recent Hopitalizations: No Physical Abuse Screen: No Sexual Abuse: No Immunizations Up To Date Date of Pneumonia Vaccine: Jul 24, 2011 Date of Influenza Vaccine: Feb 20, 2018 Family Medical History Significant Family History: Heart Disease, Hypertension, Other Conditions/Hx (DEMENTIA) Family History: Abdominal aortic aneurysm 19 MOTHER Dementia G8 SISTER Myocardial infarction 19 FATHER Review of Systems-General Review of Systems Constitutional: No chills, No fever; malaise, weakness EENTM: vision loss; No hoarseness, No throat pain Respiratory: see HPI, cough, dyspnea on exertion; No hemoptysis, No orthopnea, No phlegm; short of breath; No stridor; wheezing; No other Cardiovascular: No see HPI; chest pain; No edema, No Hx of Intervention, No palpitations, No syncope, No vascular heart diseas, No other Gastrointestinal: No abdominal pain; other (BLEEDING FROM STOMA) Genitourinary: other (SUPRAPUBIC CATHETER) Musculoskeletal: muscle weakness Skin: other (IRRITATED SKIN FROM LEAKAGE OF STOMA) Psychiatric/Neurological: Denies Anxiety; Depressed, Weakness All Other Systems Reviewed Negative Unless Noted: Yes Reviewed Test Results Reviewed Test Results Lab Laboratory Tests Test 10/15/18 14:30 10/15/18 16:40 10/15/18 22:08 10/16/18 04:09 Range/Units White Blood Count 11.6 H 7.3 4.3-11.0 10^3/uL Red Blood Count 3.16 L 3.12 L 4.35-5.85 10^6/uL Hemoglobin 8.4 L 8.3 L 13.3-17.7 G/DL Hematocrit 28 L 27 L 40-54 % Mean Corpuscular Volume 87 87 80-99 FL Mean Corpuscular Hemoglobin 27 27 25-34 PG Mean Corpuscular Hemoglobin Concent 31 L 31 L 32-36 G/DL Red Cell Distribution Width 18.5 H 18.2 H 10.0-14.5 % Platelet Count 400 383 130-400 10^3/uL Mean Platelet Volume 8.9 9.5 7.4-10.4 FL Neutrophils (%) (Auto) 71 42-75 % Lymphocytes (%) (Auto) 13 12-44 % Monocytes (%) (Auto) 10 0-12 % Eosinophils (%) (Auto) 6 0-10 % Basophils (%) (Auto) 0 0-10 % Neutrophils # (Auto) 8.2 H 1.8-7.8 X 10^3 Lymphocytes # (Auto) 1.5 1.0-4.0 X 10^3 Monocytes # (Auto) 1.2 H 0.0-1.0 X 10^3 Eosinophils # (Auto) 0.7 H 0.0-0.3 10^3/uL Basophils # (Auto) 0.0 0.0-0.1 10^3/uL Sodium Level 135 138 135-145 MMOL/L Potassium Level 5.1 H 4.8 3.6-5.0 MMOL/L Chloride Level 103 106 98-107 MMOL/L Carbon Dioxide Level 22 18 L 21-32 MMOL/L Anion Gap 10 14 5-14 MMOL/L Blood Urea Nitrogen 25 H 18 7-18 MG/DL Creatinine 1.60 H 1.28 0.60-1.30 MG/DL Estimat Glomerular Filtration Rate 42 54 BUN/Creatinine Ratio 16 14 Glucose Level 106 H 153 H 70-105 MG/DL Lactic Acid Level 0.78 0.50-2.00 MMOL/L Calcium Level 9.2 9.0 8.5-10.1 MG/DL Corrected Calcium 9.6 8.5-10.1 MG/DL Phosphorus Level 4.0 3.8 2.3-4.7 MG/DL Magnesium Level 2.4 2.1 1.6-2.4 MG/DL Total Bilirubin 0.4 0.1-1.0 MG/DL Aspartate Amino Transf (AST/SGOT) 24 5-34 U/L Alanine Aminotransferase (ALT/SGPT) 30 0-55 U/L Alkaline Phosphatase 98 40-136 U/L Troponin I 0.112 H 0.097 H 0.092 H <0.028 NG/ML B-Type Natriuretic Peptide 784.6 H <100.0 PG/ML Total Protein 8.0 6.4-8.2 GM/DL Albumin 3.5 3.2-4.5 GM/DL Test 10/16/18 06:30 Range/Units Blood Gas Puncture Site RIGHT RADIAL Blood Gas Patient Temperature 98.2 Arterial Blood pH 7.41 7.37-7.43 Arterial Blood Partial Pressure CO2 35 35-45 MMHG Arterial Blood Partial Pressure O2 77 L 79-93 MMHG Arterial Blood HCO3 21 L 23-27 MMOL/L Arterial Blood Total CO2 22.4 21.0-31.0 MMOL/L Arterial Blood Oxygen Saturation 96 94-100 % Arterial Blood Base Excess -2.6 L -2.5-2.5 MMOL/L Erick Test YES-POS Blood Gas Ventilator Setting NO Blood Gas Inspired Oxygen 6L Physical Exam Physical Exam Vital Signs Vital Signs - First Documented 10/16/18 07:13 FiO2 40 Capillary Refill : Height, Weight, BMI Height: 5'10.00" Weight: 245lbs. 6.0oz. 111.424900me; 35.2 BMI Method:Stated General Appearance: No Apparent Distress, WD/WN, Obese Eyes: Bilateral Eye Normal Inspection, Bilateral Eye PERRL, Bilateral Eye EOMI HEENT: PERRL/EOMI, Pharynx Normal Neck: Full Range of Motion, Normal Inspection, Non Tender, Supple Respiratory: Chest Non Tender, Crackles (IN MID LUNG TO BASES), Wheezing Cardiovascular: Regular Rate, Rhythm, No Gallop, Systolic Murmur, Other (EDEMA BILATERAL LOWER EXTREMITIES AT ANKLES) Gastrointestinal: Normal Bowel Sounds, Non Tender, Soft, Other (IRREGULARLY SHAPED ABDOMEN WITH LARGE HERNIA AROUND STOMA SITE ON LEFT LOWER ABDOMEN, SUPRAPUBIC CATHETER IN MIDLINE OF ABDOMEN, SLIGHT LEAKAGE AROUND CATHETER SITE) Rectal: Deferred Extremity: Normal Capillary Refill, Non Tender, No Calf Tenderness Neurologic/Psychiatric: Alert, Oriented x3, No Motor/Sensory Deficits, Normal Mood/Affect, 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 Hutton Pneumonia, recurrent, had MRSA in June by bronchoscopy, managed by Dr. Hutton Type II myocardial infarction, mild elevation in troponin level, probably due to respiratory failure and hypoxemia. Conservative management is recommended Coronary artery disease, history of CABG x3 done in 1999 using RODRIGEZ to LAD, vein graft to the first obtuse marginal, vein graft to the left posterolateral branch of the left circumflex artery. Last cardiac catheterization was done in November 2013 showing occluded vein graft to the left circumflex artery. Patient had 2 stents in the [place] circumflex artery using 3.516 mm proximally and 3.520 mm at the midportion Promus Premier stents, distally there was 60 percent stenosis which will be monitored. The LAD has significant disease proximally, patient has significantly tortuous thoracic and abdominal aorta. Deferred the the evaluation of the RODRIGEZ due to the use of large amount of contrast. The right coronary artery is a small none dominant artery was not even visualized during this study. Patient had another stent placed in the circumflex artery in [facility] in 2014, no recent workup for follow-up was done. Heavily calcified thoracic and abdominal aorta. CTA done on 01/06/2014 revealed no aneurysm or occlusions or stenosis of abdominal aorta or major branches Valvular heart disease with mild aortic regurgitation, mild mitral and tricuspid regurgitation. Moderate left ventricular hypertrophy. Planning to evaluate 2-D echocardiogram Hypertension, restart home medication monitor blood pressure Hyperlipidemia, I will evaluate lipid profile and metabolic profile History of CVA. Continue to monitor. Mild carotid stenosis, nonobstructive disease bilaterally, has been followed in [facility], requesting to transfer is service back to my office. I will evaluate carotid ultrasound as an outpatient COPD/obstructive sleep apnea, Continue to monitor. History of prostate CA with questionable metastasis, patient expressed that it has been followed and managed at . He reported that it was slow growing and the recommendation was conservative management. Cauda equina syndrome, underwent surgery, patient expressed that he did not have full recovery Clinical Quality Measures DVT/VTE Risk/Contraindication: Risk Factor Score Per Nursin RFS Level Per Nursing on Admit: 4+=Very High KIMBERLI BARRETT MD Oct 16, 2018 12:13
[2018-10-16] MEDS ORDERED: VANCOMYCIN 1500 MG/NS 500 ML IVPB IV SCH ×2 (17:00)
[2018-10-16] MEDS: ENOXAPARIN 40 MG/0.4 ML (LOVENOX) SYR SC SCH (17:31)
[2018-10-16] MEDS: MELATONIN 3 MG TABLET PO SCH (20:00)
[2018-10-17] MEDS: methylPREDNISolone 40 MG/ML (Solu-MEDROL) VIAL IV SCH ×4 (00:25→17:24)
[2018-10-17] MEDS: hydrALAZINE (APESOLINE) 20 MG/ML VIAL IV PRN (01:15)
[2018-10-17] MEDS: RT-ALBUTEROL/IPRATROPIUM 3 ML (DUONEB) VIAL IH SCH ×5 (02:10→19:21)
[2018-10-17 04:30] VITALS: BP 168/76
[2018-10-17] MEDS: PIPERACILLIN/TAZO 4.5 GM/NS 100 ML IV SCH ×6 (05:34→22:17)
[2018-10-17 05:46] LABS: HEMOGLOBIN 8.9 G/DL (13.3-17.7); MEAN PLATELET VOLUME 9.5 FL (7.4-10.4); RED CELL DISTRIBUTION WIDTH 18.1 % (10.0-14.5); WHITE BLOOD COUNT 11.8 10^3/uL (4.3-11.0)
[2018-10-17 06:06] LABS: ALBUMIN 3.7 GM/DL (3.2-4.5); BILIRUBIN,TOTAL 0.3 MG/DL (0.1-1.0); CALCIUM 9.4 MG/DL (8.5-10.1); CREATININE SERUM 1.2 MG/DL (0.60-1.30); MAGNESIUM 2.4 MG/DL (1.6-2.4); PHOSPHORUS 3.3 MG/DL (2.3-4.7); POTASSIUM 4.3 MMOL/L (3.6-5.0); TOTAL PROTEIN 8.4 GM/DL (6.4-8.2)
--- NOTE | 2018-10-17 07:11 | Pulmonary Progress Note ---
Sepsis Event Evaluation Height, Weight, BMI Height: 5'.00" Weight: 245lbs. 6.0oz. 111.011080gm; 35.2 BMI Method:Stated Focused Exam Lactate Level 10/15/18 16:40: Lactic Acid Level 0.78 Exam Exam Vital Signs Date Time Temp Pulse Resp B/P (MAP) Pulse Ox O2 Delivery O2 Flow Rate FiO2 10/17/18 04:30 97.3 81 20 168/76 (106) 99 NIV CPAP 10/17/18 02:10 95 Vapotherm 6.00 10/17/18 01:00 78 10/16/18 23:45 97.1 82 18 170/77 (108) 99 NIV CPAP 10/16/18 22:07 95 Vapotherm 30.00 50 10/16/18 20:00 Vapotherm 10/16/18 19:25 99.2 90 18 152/68 (96) 93 Vapotherm 45.00 30.00 10/16/18 19:00 91 10/16/18 18:29 84 Vapotherm 30.00 40 10/16/18 15:50 97.4 84 22 131/56 (81) 91 Vapotherm 45.00 30.00 10/16/18 14:17 91 Vapotherm 30.00 40 10/16/18 13:00 85 10/16/18 12:50 97.6 89 22 144/67 (92) 95 Vapotherm 45.00 30.00 10/16/18 10:39 93 Vapotherm 30.00 40 10/16/18 08:00 Nasal Cannula 4.00 10/16/18 08:00 97.8 89 18 136/61 (86) 93 Vapotherm 40.00 30.00 10/16/18 07:13 91 Vapotherm 30.00 40 I & O 10/17/18 07:00 Intake Total 4455 ml Output Total 6100 ml Balance -1645 ml Height & Weight Height: 5'10.00" Weight: 245lbs. 6.0oz. 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 Barajas - will place cardiology consult. -Check EKG Obesity/deconditioning LAUREN CHIN DO Oct 17, 2018 07:11
--- NOTE | 2018-10-17 07:15 | Pulmonary Progress Note ---
Subjective Time Seen by a Provider: 13:25 Subjective/Events-last exam Pt is in chair talking on phone. Sepsis Event Evaluation Height, Weight, BMI Height: 5'10.00" Weight: 245lbs. 6.0oz. 111.137282qu; 35.2 BMI Method:Stated Focused Exam Lactate Level 10/15/18 16:40: Lactic Acid Level 0.78 Exam Exam Vital Signs Date Time Temp Pulse Resp B/P (MAP) Pulse Ox O2 Delivery O2 Flow Rate FiO2 10/17/18 07:05 97 Nasal Cannula 4.00 10/17/18 04:30 97.3 81 20 168/76 (106) 99 NIV CPAP 10/17/18 02:10 95 Vapotherm 6.00 10/17/18 01:00 78 10/16/18 23:45 97.1 82 18 170/77 (108) 99 NIV CPAP 10/16/18 22:07 95 Vapotherm 30.00 50 10/16/18 20:00 Vapotherm 10/16/18 19:25 99.2 90 18 152/68 (96) 93 Vapotherm 45.00 30.00 10/16/18 19:00 91 10/16/18 18:29 84 Vapotherm 30.00 40 10/16/18 15:50 97.4 84 22 131/56 (81) 91 Vapotherm 45.00 30.00 10/16/18 14:17 91 Vapotherm 30.00 40 10/16/18 13:00 85 10/16/18 12:50 97.6 89 22 144/67 (92) 95 Vapotherm 45.00 30.00 10/16/18 10:39 93 Vapotherm 30.00 40 10/16/18 08:00 Nasal Cannula 4.00 10/16/18 08:00 97.8 89 18 136/61 (86) 93 Vapotherm 40.00 30.00 I & O 10/17/18 07:00 Intake Total 4455 ml Output Total 6100 ml Balance -1645 ml Height & Weight Height: 5'10.00" Weight: 245lbs. 6.0oz. 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 Barajas - will place cardiology consult. -Check EKG Obesity/deconditioning LAUREN CHIN DO Oct 17, 2018 07:15
[2018-10-17] MEDS: NS IV 1000 ML 1,000 ML IV SCH (07:57)
[2018-10-17 08:00] VITALS: BP 162/62
[2018-10-17] MEDS: FUROSEMIDE 40 MG/4 ML INJ (LASIX) IVP SCH (08:00)
[2018-10-17] MEDS: DOCUSATE SODIUM 100 MG (COLACE) CAP PO SCH ×2 (08:00→21:09)
[2018-10-17] MEDS: cloNIDine 0.1 MG (CATAPRES) TAB PO SCH ×2 (08:01→21:09)
[2018-10-17] MEDS: FAMOTIDINE 20 MG (PEPCID) TABLET PO SCH (08:01)
[2018-10-17] MEDS: GABAPENTIN 600 MG (NEURONTIN) TAB PO SCH ×2 (08:02→21:11)
[2018-10-17] MEDS: amLODIPine 10 MG (NORVASC) TAB PO SCH (08:02)
[2018-10-17] MEDS: DULoxetine 30 MG (CYMBALTA) CAP PO SCH (08:02)
[2018-10-17] MEDS: CARVEDILOL 12.5 MG (COREG) TABLET PO SCH ×2 (08:02→21:09)
[2018-10-17] MEDS: CLOPIDOGREL 75 MG (PLAVIX) TABLET PO SCH (08:02)
--- NOTE | 2018-10-17 08:33 | Progress Note ---
Subjective Date Seen by a Provider: Oct 17, 2018 Time Seen by a Provider: 08:20 Subjective/Events-last exam PT REPORTS THAT HE IS FATIGUED, HAD A BETTER NIGHT, BUT HE IS STILL QUITE FATIGUED. HE STATES THAT HE HAS PERSISTENT SHORTNESS OF BREATH, HE DENIES BLEEDING FROM HIS STOMA. HE STATES PAULINO THE IS TOO TIRED TO PARTICIPATE IN THERAPY AT TIME TIME. Review of Systems General: No Chills; Fatigue HEENT: No Dysphasia Pulmonary: No Dyspnea, No Cough Gastrointestinal: No: Nausea, Constipation Genitourinary: Other (SUPRAPUBIC NAPIER) Neurological: Weakness, Confusion Focused Exam Lactate Level 10/15/18 16:40: Lactic Acid Level 0.78 Objective Exam Last Set of Vital Signs Vital Signs Date Time Temp Pulse Resp B/P (MAP) Pulse Ox O2 Delivery O2 Flow Rate FiO2 10/17/18 07:05 97 Nasal Cannula 4.00 10/17/18 07:00 78 10/17/18 04:30 97.3 20 168/76 (106) 10/16/18 22:07 50 Capillary Refill : I&O Intake and Output 10/16/18 23:59 Intake Total 4405 ml Output Total 5750 ml Balance -1345 ml Intake Oral 2650 ml IV Total 1755 ml Output Urine Total 5750 ml # Bowel Movements 2 General: Alert, Oriented X3, Cooperative, No Acute Distress HEENT: Atraumatic, PERRLA Neck: Supple Lungs: Other (DECREASED AIR MOVEMENT THROUGHOUT, CRACKLES IN BASES) Heart: Regular Rate, Normal S1 Abdomen: Normal Bowel Sounds, Soft, No Tenderness, Other (STOMA WITH BAG IN PLACE LEFT LOWER ABDOMEN - NO BLEEDING IN BACK OR ON STOMA SEEN THROUGH OSTOMY BAG) Psych/Mental Status: Mental Status NL, Mood NL Results Lab Laboratory Tests 10/17/18 05:15: White Blood Count 11.8H, Red Blood Count 3.37L, Hemoglobin 8.9L, Hematocrit 29L, Mean Corpuscular Volume 87, Mean Corpuscular Hemoglobin 26, Mean Corpuscular Hemoglobin Concent 31L, Red Cell Distribution Width 18.1H, Platelet Count 434H, Mean Platelet Volume 9.5, Sodium Level 140, Potassium Level 4.3, Chloride Level 105, Carbon Dioxide Level 24, Anion Gap 11, Blood Urea Nitrogen 22H, Creatinine 1.20, Estimat Glomerular Filtration Rate 58, BUN/Creatinine Ratio 18, Glucose Level 152H, Calcium Level 9.4, Corrected Calcium 9.6, Phosphorus Level 3.3, Magnesium Level 2.4, Total Bilirubin 0.3, Aspartate Amino Transf (AST/SGOT) 22, Alanine Aminotransferase (ALT/SGPT) 30, Alkaline Phosphatase 112, Total Protein 8.4H, Albumin 3.7 Microbiology 10/15/18 Blood Culture - Preliminary, Resulted No growth 10/16/18 Fungal Culture 1 - Preliminary, Resulted 10/15/18 MRSA Screen - Final, Complete 10/15/18 Urine Culture - Final, Complete 3 or more isolates 10/16/18 Gram Stain, Resulted Pending 10/16/18 Wound Culture - Preliminary, Resulted Assessment/Plan Assessment/Plan Assess & Plan/Chief Complaint PNEUMONIA - SUSPECT MRSA PNEUMONIA HX OF MRSA IN SPUTUM NON-ST MYOCARDIAL INFARCTION - SUSPECT DUE TO RESPIRATORY DISTRESS HYPERTENSION CORONARY ARTERY DISEASE INFLAMED STOMA BLOOD LOSS FROM STOMA ANEMIA OF CHRONIC DISEASE HYPERLIPIDEMIA PERIPHERAL NEUROPATHY DEPRESSION CONSTIPATION INSOMNIA GENERALIZED WEAKNESS HX OF TOBACCOISM PNEUMONIA - SUSPECT MRSA PNEUMONIA -PT ON VANCOMYCIN, ZOSYN, CONTINUE WITH THIS TREATMENT UNTIL SPUTUM CULTURE IS FINALIZED, MONITOR SYMPTOMS. WILL HAVE TO BE ON TREATMENT FOR LONG PERIOD OF TIME DUE TO POTENTIAL COLONIZATION WITH MRSA, WILL NEED TO HAVE FAMILY TESTED AND TREATED WELL. HX OF MRSA IN SPUTUM - SEE ABOVE NON-ST MYOCARDIAL INFARCTION - SUSPECT DUE TO RESPIRATORY DISTRESS - WITH KNOWN HX OF CORONARY ARTERY DISEASE - DEFER TO DR. BARRETT - MEANWHILE CONTINUE WITH HOME REGIMEN. - AGREE WITH CONSERVATIVE MANAGEMENT AT THIS TIME. HYPERTENSION - RESUME HOME REGIMEN, MONITOR BLOOD PRESSURE CLOSELY WHILE PT IN HOSPITAL INFLAMED STOMA - DISCUSSED WITH WOUND CARE NURSE ANTONIO - CULTURE OF THE STOMA IS PENDING REPORT - ANTICIPATE PRELIM REPORT MONDAY - LOOKING FOR CHRONIC FUNGAL OR YEAST INFECTION AND WE WILL DO A TREATMENT WHILE WAITING ON THE CULTURE REPORT - WITH BETAMETHASONE/CLOTRIMAZOLE CREAM A PREEMPTIVE TREATMENT. BLOOD LOSS FROM STOMA AND ANEMIA OF CHRONIC DISEASE - - MONITOR H AND H, WILL TRANSFUSE IF BELOW 8 DUE TO CARDIAC DISEASE HYPERLIPIDEMIA - THE PT IS ON PRALUENT PEN - HOLD TREATMENT WHILE IN HOSPITAL PERIPHERAL NEUROPATHY - RESTARTED GABAPENTIN DEPRESSION - RESTARTED CYMBALTA CONSTIPATION - MONITOR OUTPUT - CONTINUE WITH MIRALAX TO PREVENT CONSTIPATION FROM STOMA WHICH WOULD CAUSE FURTHER INFLAMMATION OF STOMAL SITE INSOMNIA - RESTARTED MELATONIN, AND ADDED BENADRYL DUE TO PT NOT SLEEPING WELL ON JUST THE MELATONIN GENERALIZED WEAKNESS - WILL START ON THERAPY LATER THIS WEEK HX OF TOBACCOISM Clinical Quality Measures Admission Status Admission Dx PNEUMONIA - SUSPECT MRSA PNEUMONIA HX OF MRSA IN SPUTUM NON-ST MYOCARDIAL INFARCTION - SUSPECT DUE TO RESPIRATORY DISTRESS HYPERTENSION CORONARY ARTERY DISEASE INFLAMED STOMA BLOOD LOSS FROM STOMA ANEMIA OF CHRONIC DISEASE HYPERLIPIDEMIA PERIPHERAL NEUROPATHY DEPRESSION CONSTIPATION INSOMNIA GENERALIZED WEAKNESS HX OF TOBACCOISM DVT/VTE Risk/Contraindication: Risk Factor Score Per Nursin RFS Level Per Nursing on Admit: 4+=Very High FEDE BUTLER MD Oct 17, 2018 08:33
[2018-10-17 08:49] VITALS: BP 179/79
--- NOTE | 2018-10-17 08:55 | Cardiology Progress Note ---
Subjective Date Seen by Provider: Oct 17, 2018 Time Seen by Provider: 08:51 Subjective/Events-last exam Patient is sitting up in bed. Reports productive cough with white sputum. Denies any chest pain, dyspnea improving. Review of Systems General: No Chills, No Night Sweats, No Fatigue, No Malaise, No Appetite, No Other HEENT: No Head Aches, No Visual Changes, No Eye Pain, No Ear Pain, No Dysphasia, No Sinus Congestion, No Post Nasal Drip, No Sore Throat, No Other Pulmonary: Dyspnea; No Cough, No Pleuritic Chest Pain, No Other Cardiovascular: No: Chest Pain, Palpitations, Orthopnea, Paroxysmal Noc. Dyspnea, Edema, Lt Headedness, Other Focused Exam Lactate Level 10/15/18 16:40: Lactic Acid Level 0.78 Objective-Cardiology Exam Last Set of Vital Signs Vital Signs 10/16/18 10/17/18 10/17/18 22:07 14:29 15:39 Temp 97.8 Pulse 66 Resp 20 B/P (MAP) 161/71 (101) Pulse Ox 99 O2 Delivery NIV CPAP O2 Flow Rate 3.00 FiO2 50 Capillary Refill : I&O Intake and Output 10/17/18 00:00 Intake Total 4405 ml Output Total 5750 ml Balance -1345 ml Intake Oral 2650 ml IV Total 1755 ml Output Urine Total 5750 ml # Bowel Movements 2 General: Alert, Oriented X3, Cooperative HEENT: Atraumatic, PERRLA Neck: Supple, No JVD, No Thyromegaly Lungs: Other (bilat rhonchi) Heart: Regular Rate, Normal S1, Normal S2 Abdomen: Normal Bowel Sounds, Soft, No Tenderness Extremities: No Edema Skin: No Rashes, No Significant Lesion Neuro: Normal Speech, Cranial Nerves 3-12 NL Psych/Mental Status: Mental Status NL, Mood NL Results Lab Laboratory Tests 10/17/18 05:15 A/P-Cardiology Admission Diagnosis Shortness of breath Acute respiratory failure Coronary artery disease Hypertension Assessment/Plan Shortness of breath, acute respiratory failure, secondary to pneumonia, slowly improving, managed by Dr. Hutton Pneumonia, recurrent, had MRSA in June by bronchoscopy, managed by Dr. Hutton Type II myocardial infarction, mild elevation in troponin level, probably due to respiratory failure and hypoxemia. Conservative management is recommended Coronary artery disease, history of CABG x3 done in 1999 using RODRIGEZ to LAD, vein graft to the first obtuse marginal, vein graft to the left posterolateral branch of the left circumflex artery. Last cardiac catheterization was done in November 2013 showing occluded vein graft to the left circumflex artery. Patient had 2 stents in the [place] circumflex artery using 3.516 mm proximally and 3.520 mm at the midportion Promus Premier stents, distally there was 60 percent stenosis which will be monitored. The LAD has significant disease proximally, patient has significantly tortuous thoracic and abdominal aorta. Deferred the the evaluation of the RODRIGEZ due to the use of large amount of contrast. The right coronary artery is a small none dominant artery was not even visualized during this study. Patient had another stent placed in the circumflex artery in [facility] in 2014, no recent workup for follow-up was done. Heavily calcified thoracic and abdominal aorta. CTA done on 01/06/2014 revealed no aneurysm or occlusions or stenosis of abdominal aorta or major branches Valvular heart disease with mild aortic regurgitation, mild mitral and tricuspid regurgitation. Moderate left ventricular hypertrophy. Hypertension, continue to monitor BP/HR. Hyperlipidemia, I will evaluate lipid profile History of CVA. Continue to monitor. Mild carotid stenosis, nonobstructive disease bilaterally, has been followed in [facility], requesting to transfer is service back to my office. I will evaluate carotid ultrasound as an outpatient COPD/obstructive sleep apnea, Continue to monitor. History of prostate CA with questionable metastasis, patient expressed that it has been followed and managed at . He reported that it was slow growing and the recommendation was conservative management. Cauda equina syndrome, underwent surgery, patient expressed that he did not have full recovery Clinical Quality Measures DVT/VTE Risk/Contraindication: Risk Factor Score Per Nursin RFS Level Per Nursing on Admit: 4+=Very High Supervisory-Addendum Brief Supervisory Addendum Participated in pt care: history, MDM, physical Personally performed: exam, history, MDM Care discussed with: MIKEY Notes: patient is laying down in bed, feeling better, breathing better. Still having some cough productive of whitish sputum. Lungs were clear to auscultation bilateral, heart is regular. Chest x-ray showed increasing pulmonary edema. He is maintained on Lasix 40 mg IV daily. I'll continue monitoring his symptoms and continue with diuretics. Monitor blood pressure and lipids. Regarding his pneumonia it appear that he is responding to current treatment and improving slowly ZION WATERS Oct 17, 2018 08:55 KIMBERLI BARRETT MD Oct 17, 2018 16:41
--- NOTE | 2018-10-17 09:12 | Diagnostic Imaging Report ---
INDICATION: Shortness of breath. COMPARISON: 10/16/2018. FINDINGS: Median sternotomy changes and cardiomegaly again noted. Bilateral 5 lobe scattered alveolar and interstitial infiltrates are again present. There are small pleural effusions. IMPRESSION: Findings consistent with congestive failure with little overall change since previous exam. Dictated by: Dictated on workstation # [id number]
[2018-10-17 11:25] LABS: ABG BASE EXCESS 1.3 MMOL/L (-2.5-2.5); ABG OXYGEN SATURATION 95 % (94-100); ABG PCO2 38 MMHG (35-45); ABG PH 7.43 (7.37-7.43); ABG PO2 72 MMHG (79-93); ABG TCO2 26.4 MMOL/L (21.0-31.0)
[2018-10-17 11:28] LABS: ALLENS TEST POS; INSPIRED O2 2L; PATIENT TEMP 98.1; VENTILATOR NO
[2018-10-17 12:00] VITALS: BP 147/68
[2018-10-17 15:39] VITALS: BP 161/71
[2018-10-17] MEDS ORDERED: TROUGH ORDER-PHARMACY XX NR (16:00)
[2018-10-17] MEDS: ENOXAPARIN 40 MG/0.4 ML (LOVENOX) SYR SC SCH (17:25)
[2018-10-17] MEDS: VANCOMYCIN 1,750 MG/NS 500 ML IVPB IV SCH ×2 (17:52)
[2018-10-17 19:30] VITALS: BP 153/57
[2018-10-17] MEDS: MELATONIN 3 MG TABLET PO SCH (21:09)
[2018-10-17] MEDS: diphenhydrAMINE 25 MG TAB (BENADRYL) PO PRN (21:17)
[2018-10-18 00:02] VITALS: BP 149/70
[2018-10-18] MEDS: methylPREDNISolone 40 MG/ML (Solu-MEDROL) VIAL IV SCH ×4 (00:10→17:44)
[2018-10-18] MEDS: RT-ALBUTEROL/IPRATROPIUM 3 ML (DUONEB) VIAL IH SCH ×8 (01:02→22:41)
[2018-10-18 03:56] VITALS: BP 165/71
[2018-10-18 05:29] LABS: HEMOGLOBIN 8.9 G/DL (13.3-17.7); MEAN PLATELET VOLUME 9.3 FL (7.4-10.4); RED CELL DISTRIBUTION WIDTH 18.2 % (10.0-14.5); WHITE BLOOD COUNT 9.3 10^3/uL (4.3-11.0)
[2018-10-18 05:52] LABS: ALANINE AMINOTRANSFERASE 41 U/L (0-55); ALBUMIN 3.4 GM/DL (3.2-4.5); ALKALINE PHOSPHATASE 101 U/L (40-136); BILIRUBIN,TOTAL 0.3 MG/DL (0.1-1.0); BUN/CREATININE RATIO 27; CALCIUM 9.2 MG/DL (8.5-10.1); CARBON DIOXIDE 20 MMOL/L (21-32); CHLORIDE 105 MMOL/L (98-107); CREATININE SERUM 1.15 MG/DL (0.60-1.30); GFR ESTIMATED > 60; GLUCOSE 128 MG/DL (70-105); MAGNESIUM 2.1 MG/DL (1.6-2.4); PHOSPHORUS 3.8 MG/DL (2.3-4.7); POTASSIUM 3.7 MMOL/L (3.6-5.0); SODIUM 140 MMOL/L (135-145); TOTAL PROTEIN 7.8 GM/DL (6.4-8.2)
[2018-10-18] MEDS: PIPERACILLIN/TAZO 4.5 GM/NS 100 ML IV SCH ×6 (05:54→22:08)
[2018-10-18] MEDS: NS IV 1000 ML 1,000 ML IV SCH (05:55)
--- NOTE | 2018-10-18 08:26 | Cardiology Progress Note ---
Subjective Date Seen by Provider: Oct 18, 2018 Time Seen by Provider: 08:25 Subjective/Events-last exam Patient sitting up in bed, continues to complain of productive cough. Denies any chest pain or dyspnea. Focused Exam Lactate Level 10/15/18 16:40: Lactic Acid Level 0.78 Objective-Cardiology Exam Last Set of Vital Signs Vital Signs 10/16/18 10/18/18 10/18/18 22:07 03:56 06:48 Temp 98.0 Pulse 64 Resp 20 B/P (MAP) 165/71 (102) Pulse Ox 93 O2 Delivery Nasal Cannula O2 Flow Rate 3.00 FiO2 50 Capillary Refill : I&O Intake and Output 10/18/18 00:00 Intake Total 2740 ml Output Total 4400 ml Balance -1660 ml Intake Oral 2720 ml IV Total 20 ml Output Urine Total 4400 ml # Bowel Movements 1 General: Alert, Oriented X3, Cooperative HEENT: Atraumatic, PERRLA Neck: Supple, No JVD, No Thyromegaly Lungs: Other (bilat rhonchi) Heart: Regular Rate, Normal S1, Normal S2 Abdomen: Normal Bowel Sounds, Soft, No Tenderness Extremities: No Edema Skin: No Rashes, No Significant Lesion Neuro: Normal Speech, Cranial Nerves 3-12 NL Psych/Mental Status: Mental Status NL, Mood NL Results Lab Laboratory Tests 10/18/18 04:20 A/P-Cardiology Admission Diagnosis Shortness of breath Acute respiratory failure Coronary artery disease Hypertension Assessment/Plan Shortness of breath, acute respiratory failure, secondary to pneumonia, slowly improving, managed by Dr. Hutton Pneumonia, recurrent, had MRSA in June by bronchoscopy, managed by Dr. Hutton Type II myocardial infarction, mild elevation in troponin level, probably due to respiratory failure and hypoxemia. Conservative management is recommended Coronary artery disease, history of CABG x3 done in 1999 using RODRIGEZ to LAD, vein graft to the first obtuse marginal, vein graft to the left posterolateral branch of the left circumflex artery. Last cardiac catheterization was done in November 2013 showing occluded vein graft to the left circumflex artery. Patient had 2 stents in the unga circumflex artery using 3.516 mm proximally and 3.520 mm at the midportion Promus Premier stents, distally there was 60 percent stenosis which will be monitored. The LAD has significant disease proximally, patient has significantly tortuous thoracic and abdominal aorta. Deferred the the evaluation of the RODRIGEZ due to the use of large amount of contrast. The right coronary artery is a small none dominant artery was not even visualized during this study. Patient had another stent placed in the circumflex artery in [facility] in 2014, no recent workup for follow-up was done. Heavily calcified thoracic and abdominal aorta. CTA done on 01/06/2014 revealed no aneurysm or occlusions or stenosis of abdominal aorta or major branches Valvular heart disease with mild aortic regurgitation, mild mitral and tricuspid regurgitation. Moderate left ventricular hypertrophy. Hypertension, continue to monitor BP/HR. Hyperlipidemia, continue to monitor. History of CVA. Continue to monitor. Mild carotid stenosis, nonobstructive disease bilaterally, has been followed in [facility], requesting to transfer is service back to my office. I will evaluate carotid ultrasound as an outpatient COPD/obstructive sleep apnea, Continue to monitor. History of prostate CA with questionable metastasis, patient expressed that it has been followed and managed at . He reported that it was slow growing and the recommendation was conservative management. Cauda equina syndrome, underwent surgery, patient expressed that he did not have full recovery Clinical Quality Measures DVT/VTE Risk/Contraindication: Risk Factor Score Per Nursin RFS Level Per Nursing on Admit: 4+=Very High ZION WATERS Oct 18, 2018 08:26
--- NOTE | 2018-10-18 08:47 | Progress Note ---
Subjective Date Seen by a Provider: Oct 18, 2018 Time Seen by a Provider: 08:40 Subjective/Events-last exam PT REPORTS THAT HE IS FEELING BETTER - HE SLEPT BETTER LAST NIGHT. HE STILL HAS A COUGH, CONGESTION. HE DENIES CHEST PAIN. HE DENIES ABDOMINAL PAIN, DIZZINESS. Review of Systems General: No Chills; Fatigue HEENT: No Head Aches Pulmonary: Dyspnea, Cough Cardiovascular: No: Chest Pain, Palpitations Gastrointestinal: No: Nausea, Abdominal Pain Genitourinary: Other (SUPRAPUBIC CATHETER IN PLACE) Neurological: Weakness; No: Confusion Focused Exam Lactate Level 10/15/18 16:40: Lactic Acid Level 0.78 Objective Exam Last Set of Vital Signs Vital Signs Date Time Temp Pulse Resp B/P (MAP) Pulse Ox O2 Delivery O2 Flow Rate FiO2 10/18/18 06:48 93 Nasal Cannula 3.00 10/18/18 03:56 98.0 64 20 165/71 (102) 10/16/18 22:07 50 Capillary Refill : I&O Intake and Output 10/18/18 00:00 Intake Total 2740 ml Output Total 4400 ml Balance -1660 ml Intake Oral 2720 ml IV Total 20 ml Output Urine Total 4400 ml # Bowel Movements 1 General: Alert, Oriented X3, Cooperative, No Acute Distress HEENT: Atraumatic Neck: Supple Lungs: Other (DECREASED THROUGHOUT, CRACKLES IN BASES) Heart: Regular Rate Abdomen: Normal Bowel Sounds, Soft Skin: No Rashes, No Breakdown Neuro: Cranial Nerves 3-12 NL Psych/Mental Status: Mental Status NL, Mood NL Results Lab Laboratory Tests 10/17/18 11:06: Blood Gas Puncture Site RT RADIAL, Blood Gas Patient Temperature 98.1, Arterial Blood pH 7.43, Arterial Blood Partial Pressure CO2 38, Arterial Blood Partial Pressure O2 72L, Arterial Blood HCO3 25, Arterial Blood Total CO2 26.4, Arterial Blood Oxygen Saturation 95, Arterial Blood Base Excess 1.3, Erick Test POS, Blood Gas Ventilator Setting NO, Blood Gas Inspired Oxygen 2L 10/17/18 16:57: Vancomycin Level Trough 12.1 10/18/18 04:20: White Blood Count 9.3, Red Blood Count 3.38L, Hemoglobin 8.9L, Hematocrit 29L, Mean Corpuscular Volume 87, Mean Corpuscular Hemoglobin 26, Mean Corpuscular Hemoglobin Concent 30L, Red Cell Distribution Width 18.2H, Platelet Count 456H, Mean Platelet Volume 9.3, Sodium Level 140, Potassium Level 3.7, Chloride Level 105, Carbon Dioxide Level 20L, Anion Gap 15H, Blood Urea Nitrogen 31H, Creatinine 1.15, Estimat Glomerular Filtration Rate > 60, BUN/Creatinine Ratio 27, Glucose Level 128H, Calcium Level 9.2, Corrected Calcium 9.7, Phosphorus Level 3.8, Magnesium Level 2.1, Total Bilirubin 0.3, Aspartate Amino Transf (AST/SGOT) 39H, Alanine Aminotransferase (ALT/SGPT) 41, Alkaline Phosphatase 101, Total Protein 7.8, Albumin 3.4 Microbiology 10/15/18 Blood Culture - Preliminary, Resulted No growth 10/16/18 Fungal Culture 1 - Preliminary, Resulted 10/15/18 MRSA Screen - Final, Complete 10/15/18 Urine Culture - Final, Complete 3 or more isolates 10/16/18 Gram Stain - Final, Resulted 10/16/18 Wound Culture - Preliminary, Resulted Mixed Bacterial Wendy Assessment/Plan Assessment/Plan Assess & Plan/Chief Complaint PNEUMONIA - SUSPECT MRSA PNEUMONIA HX OF MRSA IN SPUTUM NON-ST MYOCARDIAL INFARCTION - SUSPECT DUE TO RESPIRATORY DISTRESS HYPERTENSION CORONARY ARTERY DISEASE INFLAMED STOMA BLOOD LOSS FROM STOMA ANEMIA OF CHRONIC DISEASE HYPERLIPIDEMIA PERIPHERAL NEUROPATHY DEPRESSION CONSTIPATION INSOMNIA GENERALIZED WEAKNESS HX OF TOBACCOISM PNEUMONIA - SUSPECT MRSA PNEUMONIA -PT ON VANCOMYCIN, ZOSYN, CONTINUE WITH THIS TREATMENT UNTIL SPUTUM CULTURE IS FINALIZED, MONITOR SYMPTOMS. WILL HAVE TO BE ON TREATMENT FOR LONG PERIOD OF TIME DUE TO POTENTIAL COLONIZATION WITH MRSA, WILL NEED TO HAVE FAMILY TESTED AND TREATED WELL. STAPH IN SPUTUM HX OF MRSA IN SPUTUM - SEE ABOVE NON-ST MYOCARDIAL INFARCTION - SUSPECT DUE TO RESPIRATORY DISTRESS - WITH KNOWN HX OF CORONARY ARTERY DISEASE - DEFER TO DR. BARRETT - MEANWHILE CONTINUE WITH HOME REGIMEN. - AGREE WITH CONSERVATIVE MANAGEMENT AT THIS TIME. HYPERTENSION - RESUMED HOME REGIMEN - ADDED ARB AND INCREASED DOSE OF CLONIDINE TO BID, CONTINUED OTHER HOME MEDICATIONS. INFLAMED STOMA - DISCUSSED WITH WOUND CARE NURSE ANTONIO - CULTURE OF THE STOMA IS PENDING REPORT - CONTINUE WITH BETAMETHASONE/CLOTRIMAZOLE CREAM A PREEMPTIVE TREATMENT. BLOOD LOSS FROM STOMA AND ANEMIA OF CHRONIC DISEASE - - MONITOR H AND H, WILL TRANSFUSE IF BELOW 8 DUE TO CARDIAC DISEASE HYPERLIPIDEMIA - THE PT IS ON PRALUENT PEN - HOLD TREATMENT WHILE IN HOSPITAL PERIPHERAL NEUROPATHY - RESTARTED GABAPENTIN DEPRESSION - RESTARTED CYMBALTA CONSTIPATION - MONITOR OUTPUT - CONTINUE WITH MIRALAX TO PREVENT CONSTIPATION FROM STOMA WHICH WOULD CAUSE FURTHER INFLAMMATION OF STOMAL SITE INSOMNIA - RESTARTED MELATONIN, AND ADDED BENADRYL DUE TO PT NOT SLEEPING WELL ON JUST THE MELATONIN GENERALIZED WEAKNESS - WILL START ON THERAPY LATER THIS WEEK HX OF TOBACCOISM DISCUSSED WITH PT AND SWING-BED COORDINATOR - PT WILL BE EVALUATED FOR SWING-BED NEED - IF HE QUALIFIES WITH HIS INSURANCE/ETC - WE WILL SWING HIM TOMORROW. Clinical Quality Measures Admission Status Admission Dx PNEUMONIA - SUSPECT MRSA PNEUMONIA HX OF MRSA IN SPUTUM NON-ST MYOCARDIAL INFARCTION - SUSPECT DUE TO RESPIRATORY DISTRESS HYPERTENSION CORONARY ARTERY DISEASE INFLAMED STOMA BLOOD LOSS FROM STOMA ANEMIA OF CHRONIC DISEASE HYPERLIPIDEMIA PERIPHERAL NEUROPATHY DEPRESSION CONSTIPATION INSOMNIA GENERALIZED WEAKNESS HX OF TOBACCOISM DVT/VTE Risk/Contraindication: Risk Factor Score Per Nursin RFS Level Per Nursing on Admit: 4+=Very High FEDE BUTLER MD Oct 18, 2018 08:47
[2018-10-18] MEDS: CARVEDILOL 12.5 MG (COREG) TABLET PO SCH ×2 (08:56→20:40)
[2018-10-18] MEDS: GABAPENTIN 600 MG (NEURONTIN) TAB PO SCH ×2 (08:56→20:40)
[2018-10-18] MEDS: FUROSEMIDE 40 MG/4 ML INJ (LASIX) IVP SCH (08:56)
[2018-10-18] MEDS: amLODIPine 10 MG (NORVASC) TAB PO SCH (08:56)
[2018-10-18] MEDS: CLOPIDOGREL 75 MG (PLAVIX) TABLET PO SCH (08:57)
[2018-10-18] MEDS: DULoxetine 30 MG (CYMBALTA) CAP PO SCH (08:57)
[2018-10-18] MEDS: FAMOTIDINE 20 MG (PEPCID) TABLET PO SCH (08:57)
[2018-10-18] MEDS: DOCUSATE SODIUM 100 MG (COLACE) CAP PO SCH ×2 (08:57→20:40)
[2018-10-18] MEDS: cloNIDine 0.1 MG (CATAPRES) TAB PO SCH ×2 (08:57→20:40)
[2018-10-18] MEDS ORDERED: LOSARTAN 50 MG (COZAAR) TAB PO SCH (09:00)
[2018-10-18 09:23] VITALS: BP 178/78
--- NOTE | 2018-10-18 10:34 | Pulmonary Progress Note ---
Subjective Time Seen by a Provider: 10:35 Subjective/Events-last exam Pt feels more depressed however respiratory mccartney doing better. Sepsis Event Evaluation Height, Weight, BMI Height: 5'10.00" Weight: 245lbs. 6.0oz. 111.508778bq; 35.2 BMI Method:Stated Focused Exam Lactate Level 10/15/18 16:40: Lactic Acid Level 0.78 Exam Exam Vital Signs Date Time Temp Pulse Resp B/P (MAP) Pulse Ox O2 Delivery O2 Flow Rate FiO2 10/18/18 09:23 178/78 (111) 10/18/18 08:54 98.4 69 18 96 Nasal Cannula 3.00 10/18/18 08:00 Nasal Cannula 3.00 10/18/18 07:00 67 10/18/18 06:48 93 Nasal Cannula 3.00 10/18/18 03:56 98.0 64 20 165/71 (102) 96 NIV CPAP 4.00 10/18/18 01:00 57 10/18/18 00:02 98.6 69 22 149/70 (96) 96 Nasal Cannula 4.00 10/17/18 20:00 Nasal Cannula 3.00 10/17/18 19:55 78 10/17/18 19:30 97.8 68 22 153/57 (89) 90 Nasal Cannula 4.00 10/17/18 19:21 96 Nasal Cannula 3.00 10/17/18 15:39 97.8 66 20 161/71 (101) 99 NIV CPAP 10/17/18 14:29 95 Nasal Cannula 3.00 10/17/18 13:00 73 10/17/18 12:00 97.1 86 18 147/68 (94) 95 Nasal Cannula 4.00 I & O 10/18/18 07:00 Intake Total 2520 ml Output Total 3600 ml Balance -1080 ml Height & Weight Height: 5'10.00" Weight: 245lbs. 6.0oz. 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 Barajas - will place cardiology consult. -Check EKG Obesity/deconditioning LAUREN CHIN DO Oct 18, 2018 10:34
[2018-10-18] MEDS: ENOXAPARIN 40 MG/0.4 ML (LOVENOX) SYR SC SCH (14:34)
--- NOTE | 2018-10-18 15:09 | NUR ---
Swing Bed Note: Qualifies for swing bed for continued need of IV abx et steroids (Pneumonia). Please consider Physical et Occupational therapy when/if the patient becomes appropriate. Thank you for this referral!
[2018-10-18 16:10] VITALS: BP 157/69
--- NOTE | 2018-10-18 16:19 | Cardiology Progress Note ---
Subjective Date Seen by Provider: Oct 18, 2018 Time Seen by Provider: 16:17 Subjective/Events-last exam Patient is laying down in bed, feeling better, breathing better. Review of Systems General: No Chills, No Night Sweats, No Fatigue, No Malaise, No Appetite, No Other HEENT: No Head Aches, No Visual Changes, No Eye Pain, No Ear Pain, No Dysphasia, No Sinus Congestion, No Post Nasal Drip, No Sore Throat, No Other Pulmonary: Dyspnea; No Cough, No Pleuritic Chest Pain, No Other Cardiovascular: No: Chest Pain, Palpitations, Orthopnea, Paroxysmal Noc. Dyspnea, Edema, Lt Headedness, Other Focused Exam Lactate Level 10/15/18 16:40: Lactic Acid Level 0.78 Objective-Cardiology Exam Last Set of Vital Signs Vital Signs 10/16/18 10/18/18 10/18/18 10/18/18 10/18/18 22:07 08:54 09:23 10:47 13:00 Temp 98.4 Pulse 63 Resp 18 B/P (MAP) 178/78 (111) Pulse Ox 99 O2 Delivery Nasal Cannula O2 Flow Rate 4.00 FiO2 50 Capillary Refill : I&O Intake and Output 10/18/18 00:00 Intake Total 2740 ml Output Total 4400 ml Balance -1660 ml Intake Oral 2720 ml IV Total 20 ml Output Urine Total 4400 ml # Bowel Movements 1 General: Alert, Oriented X3, Cooperative HEENT: Atraumatic, PERRLA Neck: Supple, No JVD, No Thyromegaly Lungs: Clear to Auscultation, Normal Air Movement Heart: Regular Rate, Normal S1, Normal S2 Abdomen: Normal Bowel Sounds, Soft, No Tenderness Extremities: No Edema Skin: No Rashes, No Significant Lesion Neuro: Normal Gait, Normal Speech, Cranial Nerves 3-12 NL Psych/Mental Status: Mental Status NL, Mood NL Results Lab Laboratory Tests 10/18/18 04:20 A/P-Cardiology Admission Diagnosis Shortness of breath Acute respiratory failure Coronary artery disease Hypertension Assessment/Plan Shortness of breath, and return pneumonia, improving slowly. Managed by Dr. Hutton. Pneumonia, recurrent, had MRSA in June by bronchoscopy, managed by Dr. Hutton Type II myocardial infarction, mild elevation in troponin level, probably due to respiratory failure and hypoxemia. Conservative management is recommended Coronary artery disease, history of CABG x3 done in 1999 using RODRIGEZ to LAD, vein graft to the first obtuse marginal, vein graft to the left posterolateral branch of the left circumflex artery. Last cardiac catheterization was done in November 2013 showing occluded vein graft to the left circumflex artery. Patient had 2 stents in the barrow circumflex artery using 3.516 mm proximally and 3.520 mm at the midportion Promus Premier stents, distally there was 60 percent stenosis which will be monitored. The LAD has significant disease proximally, patient has significantly tortuous thoracic and abdominal aorta. Deferred the the evaluation of the RODRIGEZ due to the use of large amount of contrast. The right coronary artery is a small none dominant artery was not even visualized during this study. Patient had another stent placed in the circumflex artery in [facility] in 2014, no recent workup for follow-up was done. Heavily calcified thoracic and abdominal aorta. CTA done on 01/06/2014 revealed no aneurysm or occlusions or stenosis of abdominal aorta or major branches Valvular heart disease with mild aortic regurgitation, mild mitral and tricuspid regurgitation. Moderate left ventricular hypertrophy. Hypertension, poorly controlled blood pressure, I will increase losartan to 100 mg daily and monitor tolerance and response Hyperlipidemia, continue to monitor. History of CVA. Continue to monitor. Mild carotid stenosis, nonobstructive disease bilaterally, has been followed in [facility], requesting to transfer is service back to my office. I will evaluate carotid ultrasound as an outpatient COPD/obstructive sleep apnea, Continue to monitor. History of prostate CA with questionable metastasis, patient expressed that it has been followed and managed at . He reported that it was slow growing and the recommendation was conservative management. Cauda equina syndrome, underwent surgery, patient expressed that he did not have full recovery Clinical Quality Measures DVT/VTE Risk/Contraindication: Risk Factor Score Per Nursin RFS Level Per Nursing on Admit: 4+=Very High KIMBERLI BARRETT MD Oct 18, 2018 16:19
[2018-10-18] MEDS ORDERED: LOSARTAN 50 MG (COZAAR) TAB PO NR (16:30)
[2018-10-18] MEDS: VANCOMYCIN 1,750 MG/NS 500 ML IVPB IV SCH ×2 (17:45)
[2018-10-18] MEDS ORDERED: POLYETHYLENE GLYCOL 17 GM (MIRALAX) PACK PO PRN (19:15)
[2018-10-18 20:40] VITALS: BP 138/68
[2018-10-18] MEDS: diphenhydrAMINE 25 MG TAB (BENADRYL) PO PRN (20:40)
[2018-10-18] MEDS: MELATONIN 3 MG TABLET PO SCH (20:40)
[2018-10-19] MEDS: methylPREDNISolone 40 MG/ML (Solu-MEDROL) VIAL IV SCH ×2 (00:24→05:46)
[2018-10-19 00:34] VITALS: BP 180/79
[2018-10-19] MEDS: hydrALAZINE (APESOLINE) 20 MG/ML VIAL IV PRN (00:49)
[2018-10-19 01:25] VITALS: BP 144/63
[2018-10-19] MEDS: RT-ALBUTEROL/IPRATROPIUM 3 ML (DUONEB) VIAL IH SCH ×2 (02:08→06:57)
[2018-10-19 04:08] VITALS: BP_SYST 148; BP_SYST 176; BP_DIAS 69; BP_DIAS 74
[2018-10-19] MEDS: NS IV 1000 ML 1,000 ML IV SCH (05:17)
[2018-10-19] MEDS: PIPERACILLIN/TAZO 4.5 GM/NS 100 ML IV SCH ×2 (05:46)
[2018-10-19 05:55] LABS: HEMOGLOBIN 9.4 G/DL (13.3-17.7); MEAN PLATELET VOLUME 9.5 FL (7.4-10.4); RED CELL DISTRIBUTION WIDTH 17.5 % (10.0-14.5); WHITE BLOOD COUNT 7.9 10^3/uL (4.3-11.0)
[2018-10-19 06:22] LABS: ALANINE AMINOTRANSFERASE 56 U/L (0-55); ALBUMIN 3.3 GM/DL (3.2-4.5); ALKALINE PHOSPHATASE 86 U/L (40-136); BILIRUBIN,TOTAL 0.3 MG/DL (0.1-1.0); BUN/CREATININE RATIO 28; CALCIUM 9.1 MG/DL (8.5-10.1); CARBON DIOXIDE 22 MMOL/L (21-32); CHLORIDE 103 MMOL/L (98-107); CREATININE SERUM 0.96 MG/DL (0.60-1.30); GFR ESTIMATED > 60; GLUCOSE 113 MG/DL (70-105); MAGNESIUM 2.4 MG/DL (1.6-2.4); PHOSPHORUS 3.3 MG/DL (2.3-4.7); SODIUM 140 MMOL/L (135-145); TOTAL PROTEIN 7.4 GM/DL (6.4-8.2)
--- NOTE | 2018-10-19 07:47 | Pulmonary Progress Note ---
Subjective Time Seen by a Provider: 07:42 Subjective/Events-last exam Pt is doing better from respiratory standpoint. Sepsis Event Evaluation Height, Weight, BMI Height: 5'10.00" Weight: 245lbs. 6.0oz. 111.853420cl; 35.2 BMI Method:Stated Exam Exam Vital Signs Date Time Temp Pulse Resp B/P (MAP) Pulse Ox O2 Delivery O2 Flow Rate FiO2 10/19/18 06:57 98 Nasal Cannula 4.00 10/19/18 04:08 97.7 61 20 148/69 (95) 100 NIV CPAP 4.00 10/19/18 02:08 95 NIV CPAP 5.00 10/19/18 01:25 144/63 (90) 10/19/18 00:43 69 10/19/18 00:34 97.2 63 20 180/79 (112) 99 Nasal Cannula 4.00 10/18/18 22:41 98 NIV CPAP 5.00 10/18/18 20:40 73.0 73 20 138/68 (91) 97 Nasal Cannula 4.00 10/18/18 20:00 Nasal Cannula 4.00 10/18/18 19:00 74 10/18/18 18:33 97 Nasal Cannula 4.00 10/18/18 16:10 98.2 67 20 157/69 (98) 99 Nasal Cannula 6.00 10/18/18 14:33 99 4.00 10/18/18 13:00 63 10/18/18 10:47 99 Nasal Cannula 4.00 10/18/18 09:23 178/78 (111) 10/18/18 08:54 98.4 69 18 96 Nasal Cannula 3.00 10/18/18 08:00 Nasal Cannula 3.00 I & O 10/19/18 07:00 Intake Total 2360 ml Output Total 3800 ml Balance -1440 ml Height & Weight Height: 5'10.00" Weight: 245lbs. 6.0oz. 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 RLD with pulmonary fibrosis -Duoneb Q 4 Hx of diastolic cardiomyopathy with elevated BNP -Lasix 40 mg daily -Check Echo NSTEMI - probably type II -Monitor -PT is known to Dr. Barajas - will place cardiology consult. -Check EKG Obesity/deconditioning LAUREN CHIN DO Oct 19, 2018 07:47
[2018-10-19] MEDS: amLODIPine 10 MG (NORVASC) TAB PO SCH (08:39)
[2018-10-19] MEDS: GABAPENTIN 600 MG (NEURONTIN) TAB PO SCH (08:39)
[2018-10-19] MEDS: DULoxetine 30 MG (CYMBALTA) CAP PO SCH (08:39)
[2018-10-19] MEDS: CARVEDILOL 12.5 MG (COREG) TABLET PO SCH (08:39)
[2018-10-19] MEDS: CLOPIDOGREL 75 MG (PLAVIX) TABLET PO SCH (08:39)
[2018-10-19] MEDS: FAMOTIDINE 20 MG (PEPCID) TABLET PO SCH (08:40)
[2018-10-19] MEDS: DOCUSATE SODIUM 100 MG (COLACE) CAP PO SCH (08:40)
[2018-10-19] MEDS: FUROSEMIDE 40 MG/4 ML INJ (LASIX) IVP SCH (08:40)
--- NOTE | 2018-10-19 08:48 | Discharge Summary ---
Diagnosis/Chief Complaint Date of Admission Oct 15, 2018 at 15:40 Date of Discharge Discharge Date: Oct 19, 2018 Discharge Time: 08:50 Admission Diagnosis Admission Diagnosis PNEUMONIA - SUSPECT MRSA PNEUMONIA HX OF MRSA IN SPUTUM NON-ST MYOCARDIAL INFARCTION - SUSPECT DUE TO RESPIRATORY DISTRESS HYPERTENSION CORONARY ARTERY DISEASE INFLAMED STOMA BLOOD LOSS FROM STOMA ANEMIA OF CHRONIC DISEASE HYPERLIPIDEMIA PERIPHERAL NEUROPATHY DEPRESSION CONSTIPATION INSOMNIA GENERALIZED WEAKNESS HX OF TOBACCOISM Discharge Diagnosis PNEUMONIA HX OF MRSA PNEUMONIA HX OF MRSA IN SPUTUM NON-ST MYOCARDIAL INFARCTION - DUE TO RESPIRATORY DISTRESS HYPERTENSION CORONARY ARTERY DISEASE INFLAMED STOMA BLOOD LOSS FROM STOMA ANEMIA OF CHRONIC DISEASE HYPERLIPIDEMIA PERIPHERAL NEUROPATHY DEPRESSION CONSTIPATION INSOMNIA GENERALIZED WEAKNESS HX OF TOBACCOISM Reason Hospital Visit PT IS A 77 Y/O MALE WHO IS KNOWN TO ME FROM CLINIC. ALBINA WAS ADMITTED BY DR. CHIN FROM HIS OFFICE. THE PATIENT REPORTS THAT HE HAD BEEN UP TO [place] TO VISIT WITH HIS SUPERVISOR SHUTTLE VENEERING LAST WEEK AND THE SUPERVISOR SHUTTLE VENEERING HAD HIM SEE A FORENSICS TEAM DIRECTOR WHILE HE WAS UP THERE. ALBINA REPORTS THAT THE FORENSICS TEAM DIRECTOR CALLED HIM TODAY TO REPORT THAT IT LOOKS LIKE HE HAS PULMONARY FIBROSIS. HE STATES THAT HE WAS HAVING QUITE A BIT OF TROUBLE OVER THE WEEKEND AND CALLED DR. CHIN'S OFFICE ON MONDAY DUE TO HIS SEVERE SHORTNESS OF BREATHING AND THE STRUGGLE HE WAS HAVING WAS TOO GREAT TO KEEP TRYING TO TOUGH IT OUT. HE REPORTS THAT HIS CHEST XRAY WAS WORSE AND DR. CHIN ADVISED ADMISSION. THE PATIENT ALSO REPORTS QUITE A BIT OF BLEEDING AND DIFFICULTY WITH HIS STOMA - REPORTING THAT HE HAD MASSIVE BLEEDING YESTERDAY MORNING AND HIS BAG JUST "FELL OFF ON THE FLOOR WITH A FLOOD OF BLOOD AND FECES FROM THE STOMA AND BAG. Discharge Summary Consultations DR. GIUSEPPE BARRETT Discharge Physical Examination Allergies: Uncoded Allergies: SURGICAL TAPE (Adverse Reaction, Intermediate, IRRITATES SKIN, 08/16/10) Vitals & I&Os Vital Signs Date Time Temp Pulse Resp B/P (MAP) Pulse Ox O2 Delivery O2 Flow Rate FiO2 10/19/18 07:00 69 10/19/18 06:57 98 Nasal Cannula 4.00 10/19/18 04:08 97.7 20 148/69 (95) 10/16/18 22:07 50 General Appearance: Alert, Oriented X3, Cooperative, No Acute Distress HEENT: Atraumatic, PERRLA, Mucous Memb Moist/[place] Respiratory: Other (DECREASED IN BASES, CRACKLES IN BASES) Cardiovascular: Regular Rate, Other (II/ PAUL) Abdominal: Normal Bowel Sounds, Soft Extremities: No Cyanosis, Other (STOMA IN LEFT LOWER ABDOMEN WITH LARGE ABDOMINAL WALL HERNIA AT STOMAL SITE) Skin: Other (SMALL ULCERATION ON BUTTOCK) Hospital Course Was the Problem List Reviewed?: Yes PNEUMONIA - SUSPECT MRSA PNEUMONIA HX OF MRSA IN SPUTUM NON-ST MYOCARDIAL INFARCTION - SUSPECT DUE TO RESPIRATORY DISTRESS HYPERTENSION CORONARY ARTERY DISEASE INFLAMED STOMA BLOOD LOSS FROM STOMA ANEMIA OF CHRONIC DISEASE HYPERLIPIDEMIA PERIPHERAL NEUROPATHY DEPRESSION CONSTIPATION INSOMNIA GENERALIZED WEAKNESS HX OF TOBACCOISM PNEUMONIA - SUSPECT MRSA PNEUMONIA -PT ON VANCOMYCIN, ZOSYN, CONTINUE WITH THIS TREATMENT UNTIL SPUTUM CULTURE IS FINALIZED, MONITOR SYMPTOMS. WILL HAVE TO BE ON TREATMENT FOR LONG PERIOD OF TIME DUE TO POTENTIAL COLONIZATION WITH MRSA, WILL NEED TO HAVE FAMILY TESTED AND TREATED WELL. STAPH IN SPUTUM HX OF MRSA IN SPUTUM - SEE ABOVE NON-ST MYOCARDIAL INFARCTION - SUSPECT DUE TO RESPIRATORY DISTRESS - WITH KNOWN HX OF CORONARY ARTERY DISEASE - DEFER TO DR. BARRETT - MEANWHILE CONTINUE WITH HOME REGIMEN. - AGREE WITH CONSERVATIVE MANAGEMENT AT THIS TIME. HYPERTENSION - RESUMED HOME REGIMEN - ADDED ARB AND INCREASED DOSE OF CLONIDINE TO BID, CONTINUED OTHER HOME MEDICATIONS. INFLAMED STOMA - DISCUSSED WITH WOUND CARE NURSE ANTONIO - CULTURE OF THE STOMA IS PENDING REPORT - CONTINUE WITH BETAMETHASONE/CLOTRIMAZOLE CREAM A PREEMPTIVE TREATMENT. BLOOD LOSS FROM STOMA AND ANEMIA OF CHRONIC DISEASE - - MONITOR H AND H, WILL TRANSFUSE IF BELOW 8 DUE TO CARDIAC DISEASE HYPERLIPIDEMIA - THE PT IS ON PRALUENT PEN - HOLD TREATMENT WHILE IN HOSPITAL PERIPHERAL NEUROPATHY - RESTARTED GABAPENTIN DEPRESSION - RESTARTED CYMBALTA CONSTIPATION - MONITOR OUTPUT - CONTINUE WITH MIRALAX TO PREVENT CONSTIPATION FROM STOMA WHICH WOULD CAUSE FURTHER INFLAMMATION OF STOMAL SITE INSOMNIA - RESTARTED MELATONIN, AND ADDED BENADRYL DUE TO PT NOT SLEEPING WELL ON JUST THE MELATONIN GENERALIZED WEAKNESS - WILL START ON THERAPY LATER TODAY. HX OF TOBACCOISM DISCUSSED WITH PT AND SWING-BED COORDINATOR - WE WILL SWING HIM TODAY. DUE TO NEED FOR HALFWAY IV - WILL START A PICC LINE WELL Pending Labs Discharge Condition at discharge IMPROVING Instructions to patient/family Please see electronic discharge instructions given to patient. Discharge Medications Reviewed and agree with Discharge Medication list on patient's Discharge Instruction sheet Clinical Quality Measures DVT/VTE Risk/Contraindication: Risk Factor Score Per Nursin RFS Level Per Nursing on Admit: 4+=Very High FEDE BUTLER MD Oct 19, 2018 08:48
[2018-10-19] MEDS ORDERED: LOSARTAN 100 MG (COZAAR) TABLET PO SCH (09:00)
[2018-10-19] MEDS ORDERED: cloNIDine 0.2 MG (CATAPRES) TAB PO SCH (09:00)
--- NOTE | 2018-10-19 12:43 | Diagnostic Imaging Report ---
INDICATION: Shortness of breath, pneumonia. TECHNIQUE: Two-view chest at 10:26 a.m. CORRELATION STUDY: 10/17/2018. FINDINGS: Post sternotomy changes. Unchanged cardiac enlargement. The severity of pulmonary vascular congestion and edema does however appear improved. There are continued scattered pulmonary parenchymal densities throughout both lung cramer right greater than left. Small pleural effusions. Advanced degenerative changes in the thoracic spine. IMPRESSION: 1. Cardiac enlargement with pulmonary vascular congestion. The congestive changes however do appear to be slightly improved from previous study. 2. Scattered pulmonary parenchymal densities are present. Some of this may be largely chronic with a possibility of superimposed infiltrate or edema not excluded. Dictated by: Dictated on workstation # [id number]
== END 2018-10-19 08:50 | disposition swing bed (61) | DRG 177 ==
LOC: 4TH 15:40
PROVIDERS: ADMIT Family Medicine; ATTEND Family Medicine
DX: J15.212 Pneumonia due to Methicillin resistant Staphylococcus aureus (principal); J44.9 Chronic obstructive pulmonary disease, unspecified; J84.10 Pulmonary fibrosis, unspecified; I21.A1 Myocardial infarction type 2; K94.01 Colostomy hemorrhage; K94.09 Other complications of colostomy; I42.9 Cardiomyopathy, unspecified; G83.4 Cauda equina syndrome; R06.03 Acute respiratory distress; I25.10 Atherosclerotic heart disease of native coronary artery without angina pectoris; I10 Essential (primary) hypertension; R15.9 Full incontinence of feces; E66.9 Obesity, unspecified; G47.33 Obstructive sleep apnea (adult) (pediatric); E78.00 Pure hypercholesterolemia, unspecified; I08.3 Combined rheumatic disorders of mitral, aortic and tricuspid valves; G47.00 Insomnia, unspecified; K21.9 Gastro-esophageal reflux disease without esophagitis; K59.00 Constipation, unspecified; F32.9 Major depressive disorder, single episode, unspecified; F41.9 Anxiety disorder, unspecified; G62.9 Polyneuropathy, unspecified; D63.8 Anemia in other chronic diseases classified elsewhere; Z68.35 Body mass index [BMI] 35.0-35.9, adult; Z95.1 Presence of aortocoronary bypass graft; Z95.5 Presence of coronary angioplasty implant and graft; Z87.891 Personal history of nicotine dependence; Z86.73 Personal history of transient ischemic attack (TIA), and cerebral infarction without residual deficits; Z85.46 Personal history of malignant neoplasm of prostate; Z92.3 Personal history of irradiation
CPT/HCPCS: 36415; 71045; 71046; 80048; 80053; 80202; 82274; 82805; 83605; 83735; 83880; 84100; 84484; 85025; 85027; 87040; 87070; 87077; 87081; 87088; 87101; 87186; 87205; 87449; 87899; 93005; 93306; 94640; 94760

== ENCOUNTER → 2018-10-15 | Outpatient (CLI) | payer MEDICARE, OTHER ==
[~2018-10-15] MED LIST changes: +ALBU2.5V4 NEB; +ALIR75PE SC; +CHOL400C9 PO; +DULO30CA49 PO; +MELA5CAP PO; +MULT1TAB69 PO; +POLY17PO6 PO
--- NOTE | 2018-10-15 14:58 | Diagnostic Imaging Report ---
INDICATION: COPD. Shortness of air. COMPARISON: 08/02/2018. FINDINGS: Frontal and lateral radiographic views of the chest were obtained and again show diffuse coarse interstitial opacities, bilaterally. There may be some new focal consolidative opacity within the left perihilar region. There is blunting of the costophrenic angles, which may be on the basis of underlying pleural thickening, although small effusions cannot be excluded. No pneumothorax is seen on either side. Cardiac silhouette is mildly enlarged. Pulmonary vasculature is within normal limits. IMPRESSION: 1. Background of chronic coarse interstitial lung disease, but with perhaps some new focal alveolar infiltrate in the left perihilar region. Followup is advised. 2. Pleural thickening versus small bibasilar effusions. Dictated by: Dictated on workstation # [id number]
== END ==
LOC: RAD 13:40
PROVIDERS: ATTEND Internal Medicine Critical Care Medicine
DX: J44.9 Chronic obstructive pulmonary disease, unspecified (principal); J84.89 Other specified interstitial pulmonary diseases
CPT/HCPCS: 71046

== ENCOUNTER 2018-10-19 08:28 | Inpatient (IN) | payer MEDICARE, OTHER ==
[~2018-10-19] VITALS: Ht 177.8 cm; Wt 111.3 kg
[~2018-10-19 08:28] MED LIST changes: +ALBU2.5V4 NEB; +ALIR75PE SC; +CHOL400C9 PO; +DULO30CA49 PO; +MELA5CAP PO; +MULT1TAB69 PO; +POLY17PO6 PO
[2018-10-19] MEDS ORDERED: BETAMETHASONE/CLOTRIM CREAM (LOTRISONE) 45 GM TP SCH (09:00)
[2018-10-19] MEDS ORDERED: CATHETER FLUSH 10 ML SYR IV PRN (09:00)
[2018-10-19] MEDS ORDERED: VANCOMYCIN INJECTION 1,750 MG in NS IV 500 ML 500 ML IV SCH (09:00)
[2018-10-19] MEDS ORDERED: ENOXAPARIN 40 MG/0.4 ML (LOVENOX) SYR SC SCH (09:00)
[2018-10-19] MEDS ORDERED: ACETAMINOPHEN 325 MG TABLET PO PRN (09:00)
[2018-10-19] MEDS ORDERED: RT-ALBUTEROL/IPRATROPIUM 3 ML (DUONEB) VIAL IH PRN (09:00)
[2018-10-19] MEDS ORDERED: ONDANSETRON 4 MG/2 ML (SDV) Z0FRAN IV PRN (09:00)
--- NOTE | 2018-10-19 09:57 | NUR ---
MAdmission Drug Regimen Review Completed: Date: 10/19/18 Time: 957 Physician Notified: FEDE ABURTO MD Date: 10/19/18 Time: 957 Issue Identified; Action Plan to Resolve and Any Action Taken: Albuterol/Ipra Inhalation Solution 3ml IH [id number] scheduled put back into the swing bed account. Media Chaperone identified this as a duplicate medication et auto d/c'd this. Dr. Aburto aware et confirms that she wants his scheduled breathing treatments to continue.
--- NOTE | 2018-10-19 10:18 | Cardiology Progress Note ---
Subjective Date Seen by Provider: Oct 19, 2018 Time Seen by Provider: 08:00 Subjective/Events-last exam patient is laying down in bed, feeling better, having difficulty with her blood pressure Review of Systems General: No Chills, No Night Sweats, No Fatigue, No Malaise, No Appetite, No Other HEENT: No Head Aches, No Visual Changes, No Eye Pain, No Ear Pain, No Dysphasia, No Sinus Congestion, No Post Nasal Drip, No Sore Throat, No Other Pulmonary: No Dyspnea, No Cough, No Pleuritic Chest Pain, No Other Cardiovascular: No: Chest Pain, Palpitations, Orthopnea, Paroxysmal Noc. Dyspnea, Edema, Lt Headedness, Other Objective-Cardiology Exam Last Set of Vital Signs Capillary Refill : General: Alert, Oriented X3, Cooperative HEENT: Atraumatic, PERRLA Neck: Supple, No JVD, No Thyromegaly Lungs: Clear to Auscultation, Normal Air Movement Heart: Regular Rate, Normal S1, Normal S2, No Murmurs Abdomen: Normal Bowel Sounds, Soft, No Tenderness, No Hepatosplenomegaly, No Masses Extremities: No Clubbing, No Cyanosis, No Edema, Normal Pulses, No Tenderness/Swelling Skin: No Rashes, No Breakdown, No Significant Lesion Neuro: Normal Gait, Normal Speech, Strength at 5/5 X4 Ext, Normal Tone, Sensation Intact Psych/Mental Status: Mental Status NL, Mood NL A/P-Cardiology Assessment/Plan Shortness of breath, improving slowly. Managed by Dr. Hutton. Pneumonia, recurrent, had MRSA in June by bronchoscopy, managed by Dr. Hutton Type II myocardial infarction, mild elevation in troponin level, probably due to respiratory failure and hypoxemia. Conservative management is recommended Coronary artery disease, history of CABG x3 done in 1999 using RODRIGEZ to LAD, vein graft to the first obtuse marginal, vein graft to the left posterolateral branch of the left circumflex artery. Last cardiac catheterization was done in November 2013 showing occluded vein graft to the left circumflex artery. Patient had 2 stents in the [place] circumflex artery using 3.516 mm proximally and 3.520 mm at the midportion Promus Premier stents, distally there was 60 percent stenosis which will be monitored. The LAD has significant disease proximally, patient has significantly tortuous thoracic and abdominal aorta. Deferred the the evaluation of the RODRIGEZ due to the use of large amount of contrast. The right coronary artery is a small none dominant artery was not even visualized during this study. Patient had another stent placed in the circumflex artery in [facility] in 2014, no recent workup for follow-up was done. Heavily calcified thoracic and abdominal aorta. CTA done on 01/06/2014 revealed no aneurysm or occlusions or stenosis of abdominal aorta or major branches Valvular heart disease with mild aortic regurgitation, mild mitral and tricuspid regurgitation. Moderate left ventricular hypertrophy. Hypertension, poorly controlled blood pressure, losartan and clonidine were increased. I will continue to monitor blood pressure Hyperlipidemia, continue to monitor. History of CVA. Continue to monitor. Mild carotid stenosis, nonobstructive disease bilaterally, has been followed in [facility], requesting to transfer is service back to my office. I will evaluate carotid ultrasound as an outpatient COPD/obstructive sleep apnea, Continue to monitor. History of prostate CA with questionable metastasis, patient expressed that it has been followed and managed at . He reported that it was slow growing and the recommendation was conservative management. Cauda equina syndrome, underwent surgery, patient expressed that he did not have full recovery Clinical Quality Measures DVT/VTE Risk/Contraindication: Risk Factor Score Per Nursin KIMBERLI BARRETT MD Oct 19, 2018 10:18
[2018-10-19] MEDS: RT-ALBUTEROL/IPRATROPIUM 3 ML (DUONEB) VIAL INH SCH ×4 (10:50→22:01)
--- NOTE | 2018-10-19 12:43 | NUR ---
Follow up visit with the pt (Phillip) and his Joyce. 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 His is also a retired educator, having taught Middle school social studies and later high school Malian. Both shared that their children and grandchildren are a comfort to them, and they feel blessed to have strong, loving relationships with them all. The pt is not mormonism. Continued in rapport building while demonstrating respect for pt's values and beliefs.
[2018-10-19] MEDS: FUROSEMIDE 40 MG/4 ML INJ (LASIX) IVP SCH (12:46)
[2018-10-19] MEDS: cloNIDine 0.2 MG (CATAPRES) TAB PO SCH ×2 (12:46→21:22)
[2018-10-19] MEDS: CLOPIDOGREL 75 MG (PLAVIX) TABLET PO SCH (12:47)
[2018-10-19] MEDS: CARVEDILOL 12.5 MG (COREG) TABLET PO SCH ×2 (12:48→21:22)
[2018-10-19] MEDS: DOCUSATE SODIUM 100 MG (COLACE) CAP PO SCH ×2 (12:48→21:22)
[2018-10-19] MEDS: LOSARTAN 100 MG (COZAAR) TABLET PO SCH (12:49)
[2018-10-19] MEDS: amLODIPine 10 MG (NORVASC) TAB PO SCH (12:49)
[2018-10-19] MEDS: FAMOTIDINE 20 MG (PEPCID) TABLET PO SCH (12:49)
[2018-10-19] MEDS: DULoxetine 30 MG (CYMBALTA) CAP PO SCH (12:49)
[2018-10-19] MEDS: GABAPENTIN 600 MG (NEURONTIN) TAB PO SCH ×2 (12:49→21:22)
[2018-10-19] MEDS: NS IV 1000 ML 1,000 ML IV SCH (12:50)
--- NOTE | 2018-10-19 13:03 | Physical Therapy Evaluation ---
PT Evaluation-General Medical Diagnosis Admission Date Oct 19, 2018 at 08:56 Medical Diagnosis: MRSA pneumonia/HTN Onset Date: Oct 19, 2018 Therapy Diagnosis Therapy Diagnosis: debility/weakness Height/Weight Height (Feet): 5 Height (Inches): 10.00 Weight (Pounds): 245 Weight (Ounces): 6.0 Precautions Precautions/Isolations: Droplet Isolation Referral Physician: Criselda Reason for Referral: Evaluation/Treatment Medical History Pertinent Medical History: CABG, CAD, GERD, HTN, Neuropathy Additional Medical History caude equina Current History direct admit from Dr. Hutton's office secondary to SOA and bleeding from stoma Reviewed History: Yes Social History Home: Single Level Current Living Status: Spouse Entry Into Home: Ramp Prior/Core FIM Prior Level of Function Therapy Code Descriptions/Definitions Functional [place] Measure: 0=Not Assessed/NA 4=Minimal Assistance 1=Total Assistance 5=Supervision or Setup 2=Maximal Assistance 6=Modified [place] 3=Moderate Assistance 7=Complete [place] Therapy Quality Codes: 6 Independent with activity with or without an assistive device 5 Patient requires set up or clean up by helper. Patient completes activity by themselves 4 Supervision or touching assist (CGA). Al[place] provide cues , steadying assist 3 The helper provides less than half the effort to complete the activity 2 The helper provides more than half the effort to complete the activity 1 Dependent. The helper does all the effort to complete an activity 7 Patient refused to complete or attempt activity 9 The patient did not perform the activity before the current illness or injury 88 Not attempted due to Medical conditions or safety concerns Functional Abilities and Goals: Independent: Patient completed the activities by him/herself, with or without an assistive device, with no assistance from a helper. Needed Some Help: Patient needed partial assistance from another person to complete activities. Dependent: A helper completed the activities for the patient. Unknown: Not Applicable: Bed Mobility: 5 Transfers (B,C,W/C) (FIM): 5 Gait: 0 Stairs: 0 Wheelchair Mobility: 6 Prior Devices Use: Motorized wheelchair PT Evaluation-Current Subjective Patient agrees to PT. He is very emotional on this date. Spouse present. Pain Numeric Pain Scale: 0-No Pain Location: No Pain Reported Objective Patient Orientation: Normal For Age Problem Solving: Fair Attachments: Barrios Catheter ROM/Strength ROM Lower Extremities bilateral LE WFL Strenght Lower Extremities 4-/5 grossly bilateral LE Integumentary/Posture Integumentary refer to nursing notes Bladder Incontinence: Barrios Cath Posture WFL Neuromuscular (Tone, Coordination, Reflexes) grossly intact Sensory Vision: Wears Glasses Hearing: Functional Sensation Right Lower Extremit: Impaired Sensation Left Lower Extremity: Impaired Transfers Therapy Code Descriptions/Definitions Functional [place] Measure: 0=Not Assessed/NA 4=Minimal Assistance 1=Total Assistance 5=Supervision or Setup 2=Maximal Assistance 6=Modified [place] 3=Moderate Assistance 7=Complete [place] Therapy Quality Codes: 6 Independent with activity with or without an assistive device 5 Patient requires set up or clean up by helper. Patient completes activity by themselves 4 Supervision or touching assist (CGA). Alma provide cues , steadying assist 3 The helper provides less than half the effort to complete the activity 2 The helper provides more than half the effort to complete the activity 1 Dependent. The helper does all the effort to complete an activity 7 Patient refused to complete or attempt activity 9 The patient did not perform the activity before the current illness or inj ury 88 Not attempted due to Medical conditions or safety concerns Transfers (B, C, W/C) (FIM): 5 Scootin Rollin Roll Left to Right (QC): 6 Supine to/from Sit: 6 Sit to/from Stand: 5 Sit to Lying (QC): 6 Lying to Sitting/Side of Bed(Q: 6 Sit to Stand (QC): 5 patient is able to perform bed mobility and transfers without difficulty Gait Does the Patient Walk?: No and Walking Goal NOT indicated Balance Sitting Static: Normal Sitting Dynamic: Normal Standing Static: Fair Standing Dynamic: Fair Treatment bilateral LE exercises 15 reps x 2 sets in supine AP, QS, HS, SLR, abd/add Assessment/Needs 77 y.o. male, will benefit from short term skilled PT to address functional strength to improve current LOF to safely return to home at maximum LOF. Rehab Potential: Fair PT Restaurant Bartender Goals Restaurant Bartender Goals PT Restaurant Bartender Goals Time Frame: Nov 03, 2018 Transfers (B,C,W/C) (FIM): 6 Sit to Lying (QC): 6 Lying-Sitting on Side/Bed(QC): 6 Sit to Stand (QC): 6 Rollin Roll Left to Right (QC): 6 Chair/Emf-bh-Jucvo Xfer(QC): 6 Car Transfer (QC): 6 Does the Patient Walk: No and Walking Goal NOT indicated PT Plan Problem List Problem List: Functional Strength Treatment/Plan Treatment Plan: Continue Plan of Care Treatment Plan: Education, Functional Activity Razia, Functional Strength, Safety, Therapeutic Exercise, Transfers Treatment Duration: Nov 03, 2018 Frequency: 6 times per week Estimated Hrs Per Day: .25 hour per day Patient and/or Family Agrees t: Yes Time/GCodes Time In: 1050 Time Out: 1113 Total Billed Treatment Time: 23 Total Billed Treatment 1 visit EVLowC 8 min EX 15 min DELANO MONTGOMERY PT Oct 19, 2018 13:03
--- NOTE | 2018-10-19 13:07 | Occupational Therapy Eval ---
OT Evaluation-General/PLF Medical Diagnosis Admission Date Oct 19, 2018 at 08:56 Medical Diagnosis: Pneumonia Onset Date: Oct 15, 2018 Therapy Diagnosis Therapy Diagnosis: decreased self care skills Height/Weight Height (Feet): 5 Height (Inches): 10.00 Weight (Pounds): 245 Weight (Ounces): 6.0 Medical History Pertinent Medical History: CABG, CAD, CVA, GERD, HTN Additional Medical History high cholesterol, cardiac stent, cauda equina syndrome, UTI-chronic, suprapubic catheter, neurogenic bowel/bladder, colostomy, GI bleed, diverticulosis, esophagitis, hiatal hernia, chronic neck and back pain, back surgery Reviewed History: Yes Social History Home: Single Level Current Living Status: Spouse ADL-Prior Level of Function Therapy Code Descriptions/Definitions Functional [place] Measure: 0=Not Assessed/NA 4=Minimal Assistance 1=Total Assistance 5=Supervision or Setup 2=Maximal Assistance 6=Modified [place] 3=Moderate Assistance 7=Complete [place] Therapy Quality Codes: 6 Independent with activity with or without an assistive device 5 Patient requires set up or clean up by helper. Patient completes activity by themselves 4 Supervision or touching assist (CGA). [place] provide cues , steadying assist 3 The helper provides less than half the effort to complete the activity 2 The helper provides more than half the effort to complete the activity 1 Dependent. The helper does all the effort to complete an activity 7 Patient refused to complete or attempt activity 9 The patient did not perform the activity before the current illness or injury 88 Not attempted due to Medical conditions or safety concerns Functional Abilities and Goals: Independent: Patient completed the activities by him/herself, with or without an assistive device, with no assistance from a helper. Needed Some Help: Patient needed partial assistance from another person to complete activities. Dependent: A helper completed the activities for the patient. Unknown: Not Applicable: ADL PLOF Comments Pt reports he can normally transfer to w/c without assist. Pt reports dressing self with increased time. Does not wear socks and only wears slip on shoes. Can stand briefly with grab bar to pull pants up over hips. Uses electric w/ for moblity. Spouse assists with changing colostomy bag. Pt states he hasn't been able to get into shower as much recently secondary to fatigue. DME/Equipment: Bath Chair, Grab Bars, Shower OT Current Status Subjective Pt in bed, agrees to therapy. Mental Status/Objective Patient Orientation: Person, Place, Situation Attachments: Colostomy/Ileostomy, Oxygen, Suprapubic Catheter Current Glasses/Contacts: Yes Dentures/Partials: No Hand Dominance: Right Upper Extremity ROM Grossly WFL Upper Extremity Coordination Intact Upper Extremity Strength Grossly functional ADL-Treatment ADL-Current Pt in bed, states he was just up at EOB with PT and prior to that went down to x-ray which resulted in fatigue. Agrees to bed level activity. UE assessment completed. Pt completed grooming tasks with HOB raised. Pt washed face and combed hair with set up. Declined oral care, states he will complete after he eats. Education provided regarding role of OT and plan of care. Pt states understanding of education and is in agreement with plan. Pt resting in bed with needs met and spouse present after session. Eating (FIM): 6 (Pt reports feeding self and managing containers without assist.) Eating (QC): 6 Grooming (FIM): 5 Education OT Patient Education: Rehab process Teaching Recipient: Patient Teaching Methods: Discussion Response to Teaching: Verbalize Understanding OT Short Term Goals Short Term Goals 1=Demonstrate adherence to instructed precautions during ADL tasks. 2=Patient will verbalize/demonstrate understanding of assistive devices/modifications for ADL. 3=Patient will improve strength/tolerance for activity to enable patient to perform ADL's. OT Production Supply Equipment Tender Goals Nursing Home Goals Time Frame: Nov 02, 2018 Groomin Oral Hygiene (QC): 6 Bathing(FIM): 5 Shower/Bathe Self (QC): 4 Upper Body Dressing(FIM): 5 Upper Body Dressing (QC): 5 Lower Body Dressing(FIM): 5 Lower Body Dressing (QC): 4 On/Off Footwear (QC): 5 Additional Goals: 1-Demonstrate ADL Tasks, 2-Verbalize Understanding, 3- ImproveStrength/Razia 1=Demonstrate adherence to instructed precautions during ADL tasks. 2=Patient will verbalize/demonstrate understanding of assistive devices/modifications for ADL. 3=Patient will improve strength/tolerance for activity to enable patient to perform ADL's. OT Education/Plan Problem List/Assessment Assessment: Decreased Activ Tolerance, Decreased UE Strength, Dependent Transfers, Impaired Self-Care Skills Pt to benefit from skilled OT intervention for ADL training, transfers, and strengthening to increase level of independence and allow safe discharge home with spouse. Discharge Recommendations Plan/Recommendations: Continue POC Treatment Plan/Plan of Care Treatment,Training & Education: Yes Patient would benefit from OT for education, treatment and training to promote independence in ADL's, mobility, safety and/or upper extremity function for ADL's. Plan of Care: ADL Retraining, Functional Mobility, UE Funct Exercise/Act Frequency: 5 times per week Estimated Hrs Per Day: .25 hour per day Rehab Potential: Fair Time/GCodes Start Time: 11:15 Stop Time: 11:45 Total Time Billed (hr/min): 30 Billed Treatment Time 1 visit, EVL(15minutes), ADL(15minutes) SIDRA GARCIA OT Oct 19, 2018 13:07
--- NOTE | 2018-10-19 13:40 | Progress Note ---
Subjective Date Seen by a Provider: Oct 19, 2018 Time Seen by a Provider: 10:00 Subjective/Events-last exam PT REPORTS THAT HE IS FEELING FATIGUED TODAY - HE NOTES THAT HE HAD A ROUGH NIGHT WITH HIS BLOOD PRESSURE BEING ELEVATED. HE NOTES THAT HE IS BREATHING A LITTLE BIT BETTER OTHER THAN BEING TIRED FROM LAST NIGHT. Review of Systems General: No Chills; Fatigue HEENT: No Head Aches Pulmonary: Dyspnea, Cough Cardiovascular: No: Chest Pain Gastrointestinal: No: Nausea Genitourinary: No Dysuria Neurological: Weakness; No: Confusion Objective Exam Last Set of Vital Signs Vital Signs Date Time Temp Pulse Resp B/P (MAP) Pulse Ox O2 Delivery O2 Flow Rate FiO2 10/19/18 12:54 73 Capillary Refill : General: Alert, Oriented X3, Cooperative HEENT: Atraumatic, PERRLA Neck: Supple Lungs: Other (DECREASED AIR MOVEMENT THROUGHOUT) Heart: Regular Rate Abdomen: Normal Bowel Sounds, Soft Neuro: Cranial Nerves 3-12 NL Psych/Mental Status: Mental Status NL, Mood NL Assessment/Plan Assessment/Plan Assess & Plan/Chief Complaint PNEUMONIA - SUSPECT MRSA PNEUMONIA HX OF MRSA IN SPUTUM NON-ST MYOCARDIAL INFARCTION - SUSPECT DUE TO RESPIRATORY DISTRESS HYPERTENSION CORONARY ARTERY DISEASE INFLAMED STOMA BLOOD LOSS FROM STOMA ANEMIA OF CHRONIC DISEASE HYPERLIPIDEMIA PERIPHERAL NEUROPATHY DEPRESSION CONSTIPATION INSOMNIA GENERALIZED WEAKNESS HX OF TOBACCOISM PNEUMONIA - SUSPECT MRSA PNEUMONIA -PT ON VANCOMYCIN, ZOSYN, CONTINUE WITH THIS TREATMENT UNTIL SPUTUM CULTURE IS FINALIZED, MONITOR SYMPTOMS. WILL HAVE TO BE ON TREATMENT FOR LONG PERIOD OF TIME DUE TO POTENTIAL COLONIZATION WITH MRSA, WILL NEED TO HAVE FAMILY TESTED AND TREATED WELL. STAPH IN SPUTUM DISCUSSED WITH DR. CHIN - CONTINUE WITH ZOSYN UNTIL 10/23/18 AND CONTINUE WITH VANCOMYCIN UNTIL 10/29/18 HX OF MRSA IN SPUTUM - SEE ABOVE NON-ST MYOCARDIAL INFARCTION - SUSPECT DUE TO RESPIRATORY DISTRESS - WITH KNOWN HX OF CORONARY ARTERY DISEASE - DEFER TO DR. BARRETT - MEANWHILE CONTINUE WITH HOME REGIMEN. - AGREE WITH CONSERVATIVE MANAGEMENT AT THIS TIME. HYPERTENSION - RESUMED HOME REGIMEN - ADDED ARB AND INCREASED DOSE OF CLONIDINE TO BID, CONTINUED OTHER HOME MEDICATIONS. - DR. BARRETT ADJUSTED PATIENT'S MEDICATIONS LAST NIGHT/EARLY THIS MORNING. INFLAMED STOMA - DISCUSSED WITH WOUND CARE NURSE ANTONIO - CULTURE OF THE STOMA SHOWS STAPH- CONTINUE WITH BETAMETHASONE/CLOTRIMAZOLE CREAM A PREEMPTIVE TREATMENT. BLOOD LOSS FROM STOMA AND ANEMIA OF CHRONIC DISEASE - - MONITOR H AND H, WILL TRANSFUSE IF BELOW 8 DUE TO CARDIAC DISEASE HYPERLIPIDEMIA - THE PT IS ON PRALUENT PEN - HOLD TREATMENT WHILE IN HOSPITAL PERIPHERAL NEUROPATHY - RESTARTED GABAPENTIN DEPRESSION - RESTARTED CYMBALTA CONSTIPATION - MONITOR OUTPUT - CONTINUE WITH MIRALAX TO PREVENT CONSTIPATION FROM STOMA WHICH WOULD CAUSE FURTHER INFLAMMATION OF STOMAL SITE INSOMNIA - RESTARTED MELATONIN, AND ADDED BENADRYL DUE TO PT NOT SLEEPING WELL ON JUST THE MELATONIN GENERALIZED WEAKNESS - PT AND OT TO START TODAY TO HELP IMPROVE STRENGTH HX OF TOBACCOISM Clinical Quality Measures DVT/VTE Risk/Contraindication: Risk Factor Score Per Nursin FEDE BUTLER MD Oct 19, 2018 13:40
[2018-10-19] MEDS: methylPREDNISolone 40 MG/ML (Solu-MEDROL) VIAL IV SCH ×3 (13:48→23:07)
[2018-10-19] MEDS: PIPERACILLIN/TAZOBACTAM (BULK) 4.5 GM in NS (IVPB) 100 ML IV SCH ×2 (15:07→23:07)
--- NOTE | 2018-10-19 16:30 | Diagnostic Imaging Report ---
INDICATION: PICC line. EXAMINATION: Single view of the chest was obtained. FINDINGS: Catheter via left upper extremity placed, cannot be visualized beyond its projection over the aortic knob in this patient with previous chest CT showing no evidence for a left-sided SVC. Distal tip cannot be defined. There are multiple coiled overlying leads projecting over the central chest as well as underpenetration limiting sensitivity. Repeat frontal radiograph with lateral view recommended as acceptable positioning of the catheter cannot be confirmed at this exam. Sternal wires are midline. Upper limits heart size. There are small pleural effusions and vascular congestion. IMPRESSION: Very limited exam. The left PICC catheter projects to course over the aortic knob distally undefined with limitations discussed above. Repeat frontal radiograph with greater penetration and a lateral view recommended as further evaluation. Nurse Horowitz called for report and will be watching for it in the computer. Dictated by: Dictated on workstation # [id number]
--- NOTE | 2018-10-19 17:41 | Diagnostic Imaging Report ---
INDICATION: PICC line placement. FINDINGS: Portable chest shows a left arm PICC line present. Portion of the PICC line extends over the aortic arch. The tip is not well seen. The tip is not seen to the right of midline on the frontal view. The tip appears to be directed posteriorly on the lateral view, and it is likely in the innominate vein or in the SVC just past the innominate vein. IMPRESSION: The PICC line tip is probably in the innominate vein near the SVC or possibly in the SVC just past the innominate vein. Dictated by: Dictated on workstation # [id number]
[2018-10-19 18:00] VITALS: BP 162/73
[2018-10-19] MEDS: ENOXAPARIN 40 MG/0.4 ML (LOVENOX) SYR SC SCH (18:23)
[2018-10-19] MEDS: VANCOMYCIN INJECTION 1,750 MG in NS IV 500 ML 500 ML IV SCH (18:24)
--- NOTE | 2018-10-19 19:40 | NUR ---
PT PICC LINE SITE HAS SOME MINIMAL BLEEDING, PRESSURE HELD FOR 10 MINUTES, WILL CONTINUE TO MONITOR
[2018-10-19] MEDS: MELATONIN 3 MG TABLET PO SCH (21:22)
[2018-10-19] MEDS: diphenhydrAMINE 25 MG TAB (BENADRYL) PO PRN (21:28)
--- NOTE | 2018-10-19 23:30 | NUR ---
PICC LINE INSERTION SITE MONITORED THROUGHOUT THE EVENING, NO FURTHER BLEEDING, DRESSING CHANGE DONE. WILL CONTINUE TO MONITOR
[2018-10-20] MEDS: RT-ALBUTEROL/IPRATROPIUM 3 ML (DUONEB) VIAL INH SCH ×6 (02:05→21:51)
[2018-10-20 05:04] VITALS: BP_SYST 184; BP_SYST 192; BP_DIAS 82; BP_DIAS 84
[2018-10-20] MEDS: hydrALAZINE (APESOLINE) 20 MG/ML VIAL IV PRN (05:16)
[2018-10-20] MEDS: PIPERACILLIN/TAZOBACTAM (BULK) 4.5 GM in NS (IVPB) 100 ML IV SCH ×3 (05:59→22:26)
[2018-10-20] MEDS: methylPREDNISolone 40 MG/ML (Solu-MEDROL) VIAL IV SCH ×3 (05:59→16:58)
[2018-10-20 06:18] LABS: HEMOGLOBIN 9.2 G/DL (13.3-17.7); RED CELL DISTRIBUTION WIDTH 17.4 % (10.0-14.5); WHITE BLOOD COUNT 6.8 10^3/uL (4.3-11.0)
[2018-10-20 06:36] LABS: ALANINE AMINOTRANSFERASE 45 U/L (0-55); ALBUMIN 3.1 GM/DL (3.2-4.5); ALKALINE PHOSPHATASE 89 U/L (40-136); BILIRUBIN,TOTAL 0.3 MG/DL (0.1-1.0); BUN/CREATININE RATIO 31; CALCIUM 8.7 MG/DL (8.5-10.1); CARBON DIOXIDE 26 MMOL/L (21-32); CHLORIDE 103 MMOL/L (98-107); CREATININE SERUM 0.85 MG/DL (0.60-1.30); GFR ESTIMATED > 60; GLUCOSE 117 MG/DL (70-105); POTASSIUM 3.9 MMOL/L (3.6-5.0); SODIUM 138 MMOL/L (135-145); TOTAL PROTEIN 6.9 GM/DL (6.4-8.2)
--- NOTE | 2018-10-20 07:26 | Pulmonary Progress Note ---
Sepsis Event Evaluation Height, Weight, BMI Height: 5'10.00" Weight: 245lbs. 6.0oz. 111.450407tx; 35.2 BMI Method:Stated Exam Exam Vital Signs Date Time Temp Pulse Resp B/P (MAP) Pulse Ox O2 Delivery O2 Flow Rate FiO2 10/20/18 06:44 97 Nasal Cannula 3.00 10/20/18 05:04 96.7 60 20 184/82 (116) 98 NIV CPAP 3.00 10/20/18 02:05 94 Nasal Cannula 5.00 10/20/18 01:00 54 10/19/18 22:02 97 Nasal Cannula 5.00 10/19/18 21:00 Nasal Cannula 4.00 10/19/18 19:00 71 10/19/18 18:34 97 Nasal Cannula 5.00 10/19/18 18:00 98.1 68 20 162/73 (102) 95 Nasal Cannula 3.00 10/19/18 15:29 Nasal Cannula 4.00 10/19/18 12:54 73 I & O 10/20/18 07:00 Intake Total 2860 ml Output Total 3900 ml Balance -1040 ml Height & Weight Height: 5'10.00" Weight: 245lbs. 6.0oz. 111.590646rz; 35.2 BMI Method:Stated Results Lab Laboratory Tests 10/20/18 05:55 Assessment/Plan Assessment/Plan Pneumonia - with hx of MRSA -Currently on NC -SVNs -Pt appears to be improving respiratory mccartney -[place]man cultures -Vanco/Zosyn -Urine strep and legionella Ag - is negative. RLD with pulmonary fibrosis -Duoneb Q 4 Hx of diastolic cardiomyopathy with elevated BNP -Lasix 40 mg daily -Check Echo NSTEMI - probably type II -Monitor -PT is known to Dr. Barajas - will place cardiology consult. -Check EKG Obesity/deconditioning LAUREN CHIN DO Oct 20, 2018 07:26
[2018-10-20] MEDS: NS IV 1000 ML 1,000 ML IV SCH (08:49)
[2018-10-20] MEDS: LOSARTAN 100 MG (COZAAR) TABLET PO SCH (08:50)
[2018-10-20] MEDS: FAMOTIDINE 20 MG (PEPCID) TABLET PO SCH (08:50)
[2018-10-20] MEDS: amLODIPine 10 MG (NORVASC) TAB PO SCH (08:50)
[2018-10-20] MEDS: FUROSEMIDE 40 MG/4 ML INJ (LASIX) IVP SCH (08:50)
[2018-10-20] MEDS: GABAPENTIN 600 MG (NEURONTIN) TAB PO SCH ×2 (08:50→20:54)
[2018-10-20] MEDS: DULoxetine 30 MG (CYMBALTA) CAP PO SCH (08:50)
[2018-10-20] MEDS: CARVEDILOL 12.5 MG (COREG) TABLET PO SCH ×2 (08:50→20:54)
[2018-10-20] MEDS: cloNIDine 0.2 MG (CATAPRES) TAB PO SCH ×2 (08:51→20:54)
[2018-10-20] MEDS: CLOPIDOGREL 75 MG (PLAVIX) TABLET PO SCH (08:51)
[2018-10-20] MEDS: MENTHOL/ZINC OXIDE (CALMOSEPTINE) 113 GM TUBE TOP SCH ×3 (08:51→20:52)
[2018-10-20] MEDS: POLYETHYLENE GLYCOL 17 GM (MIRALAX) PACK PO PRN (08:55)
--- NOTE | 2018-10-20 09:54 | Cardiology Progress Note ---
Subjective Date Seen by Provider: Oct 20, 2018 Time Seen by Provider: 09:53 Subjective/Events-last exam Patient is laying down in bed, having mild dyspnea. Review of Systems General: No Chills, No Night Sweats, No Fatigue, No Malaise, No Appetite, No Other HEENT: No Head Aches, No Visual Changes, No Eye Pain, No Ear Pain, No Dysphasia, No Sinus Congestion, No Post Nasal Drip, No Sore Throat, No Other Pulmonary: Dyspnea, Cough; No Pleuritic Chest Pain, No Other Cardiovascular: No: Chest Pain, Palpitations, Orthopnea, Paroxysmal Noc. Dyspnea, Edema, Lt Headedness, Other Objective-Cardiology Exam Last Set of Vital Signs Vital Signs 10/20/18 10/20/18 10/20/18 05:04 06:44 07:00 Temp 96.7 Pulse 87 Resp 20 B/P (MAP) 184/82 (116) Pulse Ox 97 O2 Delivery Nasal Cannula O2 Flow Rate 3.00 Capillary Refill : I&O Intake and Output 10/20/18 00:00 Intake Total 2460 ml Output Total 2800 ml Balance -340 ml Intake Oral 2460 ml Output Urine Total 2750 ml Stool Total 50 ml # Bowel Movements 1 Daily Weight Change No General: Alert, Oriented X3, Cooperative HEENT: Atraumatic, PERRLA Neck: Supple Lungs: Other (DECREASED AIR MOVEMENT THROUGHOUT) Heart: Regular Rate Abdomen: Normal Bowel Sounds, Soft Extremities: No Clubbing, No Cyanosis, No Edema, Normal Pulses, No Tenderness/Swelling Skin: No Rashes, No Breakdown, No Significant Lesion Neuro: Cranial Nerves 3-12 NL Psych/Mental Status: Mental Status NL, Mood NL Results Lab Laboratory Tests 10/20/18 05:55 A/P-Cardiology Admission Diagnosis Pneumonia Shortness of breath Coronary artery disease Hypertension Assessment/Plan Shortness of breath, improving slowly. Managed by Dr. Hutton. Pneumonia, recurrent, had MRSA in June by bronchoscopy, managed by Dr. Hutton Type II myocardial infarction, mild elevation in troponin level, probably due to respiratory failure and hypoxemia. Conservative management is recommended Coronary artery disease, history of CABG x3 done in 1999 using RODRIGEZ to LAD, vein graft to the first obtuse marginal, vein graft to the left posterolateral branch of the left circumflex artery. Last cardiac catheterization was done in November 2013 showing occluded vein graft to the left circumflex artery. Patient had 2 stents in the [place] circumflex artery using 3.516 mm proximally and 3.520 mm at the midportion Promus Premier stents, distally there was 60 percent stenosis which will be monitored. The LAD has significant disease proximally, patient has significantly tortuous thoracic and abdominal aorta. Deferred the the evaluation of the RODRIGEZ due to the use of large amount of contrast. The right coronary artery is a small none dominant artery was not even visualized during this study. Patient had another stent placed in the circumflex artery in [facility] in 2014, no recent workup for follow-up was done. Heavily calcified thoracic and abdominal aorta. CTA done on 01/06/2014 revealed no aneurysm or occlusions or stenosis of abdominal aorta or major branches Valvular heart disease with mild aortic regurgitation, mild mitral and tricuspid regurgitation. Moderate left ventricular hypertrophy. Hypertension, poorly controlled blood pressure, losartan and clonidine were increased. I will continue to monitor blood pressure Hyperlipidemia, continue to monitor. History of CVA. Continue to monitor. Mild carotid stenosis, nonobstructive disease bilaterally, has been followed in [facility], requesting to transfer is service back to my office. I will evaluate carotid ultrasound as an outpatient COPD/obstructive sleep apnea, Continue to monitor. History of prostate CA with questionable metastasis, patient expressed that it has been followed and managed at . He reported that it was slow growing and the recommendation was conservative management. Cauda equina syndrome, underwent surgery, patient expressed that he did not have full recovery Clinical Quality Measures DVT/VTE Risk/Contraindication: Risk Factor Score Per Nursin KIMBERLI BARRETT MD Oct 20, 2018 09:54
--- NOTE | 2018-10-20 10:31 | Diagnostic Imaging Report ---
INDICATION: Shortness of air. Study compared 10/19/2018. FINDINGS: Congestion and bilateral mixed interstitial and airspace opacity which may be edema or pneumonia are redemonstrated showing little if any interval change. There is a small right pleural effusion. The sternal wire is midline. No pneumothorax. The distal portion of the left PICC catheter cannot be defined owing to a body habitus and technique where visualized it showed no obvious change. IMPRESSION: No significant change in bilateral infiltrates or edema in right pleural fluid. Sternal wire is midline. No pneumothorax. No change apparent. Dictated by: Dictated on workstation # [id number]
--- NOTE | 2018-10-20 12:02 | Physical Therapy Daily Note ---
PT Daily Note-Current Subjective Pt agreeable. Pt denies pain just "tired". Mental Status Patient Orientation: Person, Place, Situation Transfers Therapy Code Descriptions/Definitions Functional [place] Measure: 0=Not Assessed/NA 4=Minimal Assistance 1=Total Assistance 5=Supervision or Setup 2=Maximal Assistance 6=Modified [place] 3=Moderate Assistance 7=Complete [place] Therapy Quality Codes: 6 Independent with activity with or without an assistive device 5 Patient requires set up or clean up by helper. Patient completes activity by themselves 4 Supervision or touching assist (CGA). [place] provide cues , steadying assist 3 The helper provides less than half the effort to complete the activity 2 The helper provides more than half the effort to complete the activity 1 Dependent. The helper does all the effort to complete an activity 7 Patient refused to complete or attempt activity 9 The patient did not perform the activity before the current illness or injury 88 Not attempted due to Medical conditions or safety concerns Treatments Pt seen for ther ex in bed (B) LE all planes, all joints x 20 each Assessment Current Status: Good Progress Good participation, good performance. Chantelle very well. Pt resting with all needs met post therapy. PT Senior Living Goals Psychotherapist Counselor Goals PT Senior Living Goals Time Frame: Nov 03, 2018 Transfers (B,C,W/C) (FIM): 6 Sit to Lying (QC): 6 Lying-Sitting on Side/Bed(QC): 6 Sit to Stand (QC): 6 Rollin Roll Left to Right (QC): 6 Chair/Rkn-iy-Jahzz Xfer(QC): 6 Car Transfer (QC): 6 Does the Patient Walk: No and Walking Goal NOT indicated PT Plan Treatment/Plan Treatment Plan: Continue Plan of Care Treatment Plan: Education, Functional Activity Razia, Functional Strength, Safety, Therapeutic Exercise, Transfers Treatment Duration: Nov 03, 2018 Frequency: 6 times per week Estimated Hrs Per Day: .25 hour per day Patient and/or Family Agrees t: Yes Time/GCodes Time In: 925 Time Out: 945 Total Billed Treatment Time: 20 Total Billed Treatment 1, ther ex 20min YORDAN MANUEL CPTA Oct 20, 2018 12:02
[2018-10-20] MEDS: DOCUSATE SODIUM 100 MG (COLACE) CAP PO SCH ×3 (13:11→20:56)
[2018-10-20] MEDS: ENOXAPARIN 40 MG/0.4 ML (LOVENOX) SYR SC SCH (16:58)
[2018-10-20] MEDS: VANCOMYCIN INJECTION 1,750 MG in NS IV 500 ML 500 ML IV SCH (16:59)
[2018-10-20 18:25] VITALS: BP 132/63
[2018-10-20] MEDS: MELATONIN 3 MG TABLET PO SCH (20:54)
[2018-10-20] MEDS: diphenhydrAMINE 25 MG TAB (BENADRYL) PO PRN (20:54)
[2018-10-21] MEDS: methylPREDNISolone 40 MG/ML (Solu-MEDROL) VIAL IV SCH ×5 (00:30→23:35)
[2018-10-21 01:06] VITALS: BP 155/71
[2018-10-21 05:28] VITALS: BP 172/81
[2018-10-21] MEDS: RT-ALBUTEROL/IPRATROPIUM 3 ML (DUONEB) VIAL INH SCH ×6 (05:53→22:02)
[2018-10-21] MEDS: PIPERACILLIN/TAZOBACTAM (BULK) 4.5 GM in NS (IVPB) 100 ML IV SCH ×3 (06:36→22:33)
[2018-10-21] MEDS: POLYETHYLENE GLYCOL 17 GM (MIRALAX) PACK PO PRN (06:50)
--- NOTE | 2018-10-21 07:46 | Pulmonary Progress Note ---
Subjective Time Seen by a Provider: 06:46 Subjective/Events-last exam Pt is feeling better Sepsis Event Evaluation Height, Weight, BMI Height: 5'10.00" Weight: 245lbs. 6.0oz. 111.493631sj; 35.2 BMI Method:Stated Exam Exam Vital Signs Date Time Temp Pulse Resp B/P (MAP) Pulse Ox O2 Delivery O2 Flow Rate FiO2 10/21/18 07:00 58 10/21/18 06:27 95 Nasal Cannula 3.00 10/21/18 05:28 97.8 59 18 172/81 (111) 96 Nasal Cannula 3.00 10/21/18 01:06 97.7 62 16 155/71 (99) 97 Nasal Cannula 3.00 10/20/18 21:51 96 Nasal Cannula 3.00 10/20/18 20:50 Nasal Cannula 4.00 10/20/18 19:00 71 10/20/18 18:37 92 Nasal Cannula 3.00 10/20/18 18:25 98.5 78 14 132/63 (86) 94 Nasal Cannula 3.00 10/20/18 15:16 94 Nasal Cannula 3.00 10/20/18 13:00 68 10/20/18 10:26 95 Nasal Cannula 3.00 10/20/18 09:00 Nasal Cannula 4.00 I & O 10/21/18 07:00 Intake Total 3787.5 ml Output Total 4100 ml Balance -312.5 ml Height & Weight Height: 5'10.00" Weight: 245lbs. 6.0oz. 111.452679or; 35.2 BMI Method:Stated General Appearance: No Apparent Distress, WD/WN HEENT: PERRL/EOMI, Normal ENT Inspection, Pharynx Normal Neck: Full Range of Motion, Non Tender, Supple Respiratory: Chest Non Tender, No Accessory Muscle Use, No Respiratory Distress, Crackles, Decreased Breath Sounds Cardiovascular: Regular Rate, Rhythm, No Gallop, No JVD Capillary Refill: Less Than 3 Seconds Gastrointestinal: normal bowel sounds, non tender, soft Extremity: Normal Capillary Refill, Non Tender Neurologic/Psychiatric: Alert, Oriented x3 Skin: Normal Color, Warm/Dry Lymphatic: No Adenopathy Results Lab Laboratory Tests 10/20/18 05:55 Assessment/Plan Assessment/Plan Pneumonia - with hx of MRSA -Currently on NC -SVNs -Pt appears to be improving respiratory mccartney -Eastman cultures -tx with Vanco x 14days Zosyn x 7 days -Urine strep and legionella Ag - is negative. RLD with pulmonary fibrosis -Duoneb Q 4 Hx of diastolic cardiomyopathy with elevated BNP -Lasix NSTEMI - probably type II -Monitor -PT is known to Dr. Barajas - will place cardiology consult. -Check EKG Obesity/deconditioning LAUREN CHIN DO Oct 21, 2018 07:46
[2018-10-21] MEDS: CLOPIDOGREL 75 MG (PLAVIX) TABLET PO SCH (08:29)
[2018-10-21] MEDS: GABAPENTIN 600 MG (NEURONTIN) TAB PO SCH ×2 (08:29→20:37)
[2018-10-21] MEDS: DOCUSATE SODIUM 100 MG (COLACE) CAP PO SCH ×2 (08:29→20:39)
[2018-10-21] MEDS: cloNIDine 0.2 MG (CATAPRES) TAB PO SCH ×2 (08:29→20:36)
[2018-10-21] MEDS: LOSARTAN 100 MG (COZAAR) TABLET PO SCH (08:29)
[2018-10-21] MEDS: FUROSEMIDE 40 MG/4 ML INJ (LASIX) IVP SCH (08:29)
[2018-10-21] MEDS: CARVEDILOL 12.5 MG (COREG) TABLET PO SCH ×2 (08:29→20:36)
[2018-10-21] MEDS: FAMOTIDINE 20 MG (PEPCID) TABLET PO SCH (08:29)
[2018-10-21] MEDS: amLODIPine 10 MG (NORVASC) TAB PO SCH (08:29)
[2018-10-21] MEDS: DULoxetine 30 MG (CYMBALTA) CAP PO SCH (08:29)
[2018-10-21] MEDS: MENTHOL/ZINC OXIDE (CALMOSEPTINE) 113 GM TUBE TOP SCH ×2 (08:30→20:38)
--- NOTE | 2018-10-21 10:35 | Cardiology Progress Note ---
Subjective Date Seen by Provider: Oct 21, 2018 Time Seen by Provider: 10:34 Subjective/Events-last exam Patient is laying down in bed, feeling better, breathing better. Still having difficulty achieving adequate blood pressure control Review of Systems General: No Chills, No Night Sweats, No Fatigue, No Malaise, No Appetite, No Other HEENT: No Head Aches, No Visual Changes, No Eye Pain, No Ear Pain, No Dysphasia, No Sinus Congestion, No Post Nasal Drip, No Sore Throat, No Other Pulmonary: No Dyspnea, No Cough, No Pleuritic Chest Pain, No Other Cardiovascular: No: Chest Pain, Palpitations, Orthopnea, Paroxysmal Noc. Dyspnea, Edema, Lt Headedness, Other Objective-Cardiology Exam Last Set of Vital Signs Vital Signs 10/21/18 10/21/18 10/21/18 05:28 07:00 10:05 Temp 97.8 Pulse 58 Resp 18 B/P (MAP) 172/81 (111) Pulse Ox 97 O2 Delivery Nasal Cannula O2 Flow Rate 2.00 Capillary Refill : I&O Intake and Output 10/21/18 00:00 Intake Total 4137.5 ml Output Total 4000 ml Balance 137.5 ml Intake Oral 2500 ml IV Total 1637.5 ml Output Urine Total 4000 ml # Bowel Movements 1 General: Alert, Oriented X3, Cooperative HEENT: Atraumatic, PERRLA Neck: Supple Lungs: Other (DECREASED AIR MOVEMENT THROUGHOUT) Heart: Regular Rate Abdomen: Normal Bowel Sounds, Soft Extremities: No Clubbing, No Cyanosis, No Edema, Normal Pulses, No Tenderness/Swelling Skin: No Rashes, No Breakdown, No Significant Lesion Neuro: Cranial Nerves 3-12 NL Psych/Mental Status: Mental Status NL, Mood NL A/P-Cardiology Admission Diagnosis Pneumonia Shortness of breath Coronary artery disease Hypertension Assessment/Plan Shortness of breath, improving slowly. Managed by Dr. Hutton. Pneumonia, recurrent, had MRSA in June by bronchoscopy, managed by Dr. Hutton Type II myocardial infarction, mild elevation in troponin level, probably due to respiratory failure and hypoxemia. Conservative management is recommended Coronary artery disease, history of CABG x3 done in 1999 using RODRIGEZ to LAD, vein graft to the first obtuse marginal, vein graft to the left posterolateral branch of the left circumflex artery. Last cardiac catheterization was done in November 2013 showing occluded vein graft to the left circumflex artery. Patient had 2 stents in the [place] circumflex artery using 3.516 mm proximally and 3.520 mm at the midportion Promus Premier stents, distally there was 60 percent stenosis which will be monitored. The LAD has significant disease proximally, patient has significantly tortuous thoracic and abdominal aorta. Deferred the the evaluation of the RODRIGEZ due to the use of large amount of contrast. The right coronary artery is a small none dominant artery was not even visualized during this study. Patient had another stent placed in the circumflex artery in [facility] in 2014, no recent workup for follow-up was done. Heavily calcified thoracic and abdominal aorta. CTA done on 01/06/2014 revealed no aneurysm or occlusions or stenosis of abdominal aorta or major branches Valvular heart disease with mild aortic regurgitation, mild mitral and tricuspid regurgitation. Moderate left ventricular hypertrophy. Hypertension, poorly controlled blood pressure, losartan and clonidine were in creased, I will start hydrochlorothiazide and evaluate tolerance and response Hyperlipidemia, continue to monitor. History of CVA. Continue to monitor. Mild carotid stenosis, nonobstructive disease bilaterally, has been followed in [facility], requesting to transfer is service back to my office. I will evaluate carotid ultrasound as an outpatient COPD/obstructive sleep apnea, Continue to monitor. History of prostate CA with questionable metastasis, patient expressed that it has been followed and managed at . He reported that it was slow growing and the recommendation was conservative management. Cauda equina syndrome, underwent surgery, patient expressed that he did not have full recovery Clinical Quality Measures DVT/VTE Risk/Contraindication: Risk Factor Score Per Nursin KIMBERLI BARRETT MD Oct 21, 2018 10:35
[2018-10-21] MEDS: HYDROCHLOROTHIAZIDE 25 MG (HCTZ) TAB PO SCH (11:47)
[2018-10-21] MEDS: ENOXAPARIN 40 MG/0.4 ML (LOVENOX) SYR SC SCH (17:21)
[2018-10-21] MEDS: VANCOMYCIN INJECTION 1,750 MG in NS IV 500 ML 500 ML IV SCH (17:21)
[2018-10-21 17:35] VITALS: BP 154/70
[2018-10-21] MEDS: diphenhydrAMINE 25 MG TAB (BENADRYL) PO PRN (20:37)
[2018-10-21] MEDS: MELATONIN 3 MG TABLET PO SCH (20:37)
[2018-10-22] MEDS: hydrALAZINE (APESOLINE) 20 MG/ML VIAL IV PRN (01:46)
[2018-10-22] MEDS: RT-ALBUTEROL/IPRATROPIUM 3 ML (DUONEB) VIAL INH SCH ×7 (02:03→21:29)
[2018-10-22] MEDS: NS IV 1000 ML 1,000 ML IV SCH (03:02)
[2018-10-22] MEDS: methylPREDNISolone 40 MG/ML (Solu-MEDROL) VIAL IV SCH ×4 (05:19→23:10)
[2018-10-22] MEDS: PIPERACILLIN/TAZOBACTAM (BULK) 4.5 GM in NS (IVPB) 100 ML IV SCH ×3 (05:19→23:10)
[2018-10-22 05:32] LABS: HEMOGLOBIN 9.3 G/DL (13.3-17.7); MEAN PLATELET VOLUME 8.8 FL (7.4-10.4); RED CELL DISTRIBUTION WIDTH 17.1 % (10.0-14.5); WHITE BLOOD COUNT 7.6 10^3/uL (4.3-11.0)
[2018-10-22 05:44] VITALS: BP 174/72
[2018-10-22 05:56] LABS: ALANINE AMINOTRANSFERASE 34 U/L (0-55); ALBUMIN 3.1 GM/DL (3.2-4.5); ALKALINE PHOSPHATASE 77 U/L (40-136); BILIRUBIN,TOTAL 0.3 MG/DL (0.1-1.0); BUN/CREATININE RATIO 30; CALCIUM 8.4 MG/DL (8.5-10.1); CARBON DIOXIDE 28 MMOL/L (21-32); CHLORIDE 101 MMOL/L (98-107); CREATININE SERUM 0.88 MG/DL (0.60-1.30); GFR ESTIMATED > 60; GLUCOSE 119 MG/DL (70-105); POTASSIUM 3.9 MMOL/L (3.6-5.0); SODIUM 137 MMOL/L (135-145); TOTAL PROTEIN 6.4 GM/DL (6.4-8.2)
[2018-10-22] MEDS: POLYETHYLENE GLYCOL 17 GM (MIRALAX) PACK PO PRN (06:44)
--- NOTE | 2018-10-22 06:48 | Pulmonary Progress Note ---
Subjective Time Seen by a Provider: 06:48 Subjective/Events-last exam Pt is feeling better. Sepsis Event Evaluation Height, Weight, BMI Height: 5'10.00" Weight: 245lbs. 6.0oz. 111.588167ge; 35.2 BMI Method:Stated Exam Exam Vital Signs Date Time Temp Pulse Resp B/P (MAP) Pulse Ox O2 Delivery O2 Flow Rate FiO2 10/22/18 05:44 97.8 55 18 174/72 (106) 97 Nasal Cannula 2.00 10/22/18 02:03 95 Nasal Cannula 2.00 10/22/18 01:00 56 10/21/18 22:02 92 Nasal Cannula 2.00 10/21/18 20:30 Nasal Cannula 4.00 10/21/18 19:00 70 10/21/18 18:11 97 Nasal Cannula 2.00 10/21/18 17:35 98.3 67 18 154/70 (98) 95 Nasal Cannula 2.00 10/21/18 14:32 93 Nasal Cannula 2.00 10/21/18 13:00 66 10/21/18 10:05 97 Nasal Cannula 2.00 10/21/18 08:00 Nasal Cannula 4.00 10/21/18 07:00 58 I & O 10/22/18 07:00 Intake Total 3212 ml Output Total 6100 ml Balance -2888 ml Height & Weight Height: 5'10.00" Weight: 245lbs. 6.0oz. 111.745457wq; 35.2 BMI Method:Stated General Appearance: No Apparent Distress, WD/WN HEENT: PERRL/EOMI, Normal ENT Inspection, Pharynx Normal Neck: Full Range of Motion, Non Tender, Supple Respiratory: Chest Non Tender, No Accessory Muscle Use, No Respiratory Distress, Crackles, Decreased Breath Sounds Cardiovascular: Regular Rate, Rhythm, No Gallop, No JVD Capillary Refill: Less Than 3 Seconds Gastrointestinal: normal bowel sounds, non tender, soft Extremity: Normal Capillary Refill, Non Tender Neurologic/Psychiatric: Alert, Oriented x3 Skin: Normal Color, Warm/Dry Lymphatic: No Adenopathy Results Lab Laboratory Tests 10/22/18 05:15 Assessment/Plan Assessment/Plan Pneumonia - with hx of MRSA -Currently on NC -SVNs -Pt appears to be improving respiratory mccartney -[facility] cultures -tx with Vanco x 14days Zosyn x 7 days -Urine strep and legionella Ag - is negative. RLD with pulmonary fibrosis -Duoneb Q 4 Hx of diastolic cardiomyopathy with elevated BNP -Lasix NSTEMI - probably type II -Monitor - Dr. Barajas following Obesity/deconditioning LAUREN CHIN DO Oct 22, 2018 06:48
[2018-10-22] MEDS: DULoxetine 30 MG (CYMBALTA) CAP PO SCH (08:43)
[2018-10-22] MEDS: LOSARTAN 100 MG (COZAAR) TABLET PO SCH (08:43)
[2018-10-22] MEDS: GABAPENTIN 600 MG (NEURONTIN) TAB PO SCH ×2 (08:43→21:14)
[2018-10-22] MEDS: DOCUSATE SODIUM 100 MG (COLACE) CAP PO SCH ×2 (08:43→21:17)
[2018-10-22] MEDS: FAMOTIDINE 20 MG (PEPCID) TABLET PO SCH (08:43)
[2018-10-22] MEDS: HYDROCHLOROTHIAZIDE 25 MG (HCTZ) TAB PO SCH (08:43)
[2018-10-22] MEDS: cloNIDine 0.2 MG (CATAPRES) TAB PO SCH ×3 (08:43→21:15)
[2018-10-22] MEDS: CLOPIDOGREL 75 MG (PLAVIX) TABLET PO SCH (08:43)
[2018-10-22] MEDS: amLODIPine 10 MG (NORVASC) TAB PO SCH (08:43)
[2018-10-22] MEDS: CARVEDILOL 12.5 MG (COREG) TABLET PO SCH ×2 (08:43→21:14)
[2018-10-22] MEDS: MENTHOL/ZINC OXIDE (CALMOSEPTINE) 113 GM TUBE TOP SCH ×2 (08:44→21:19)
[2018-10-22] MEDS: FUROSEMIDE 40 MG/4 ML INJ (LASIX) IVP SCH (08:48)
--- NOTE | 2018-10-22 09:32 | Progress Note - Hospitalist ---
Subjective HPI/CC On Admission Date Seen by Provider: Oct 22, 2018 Time Seen by Provider: 09:15 Subjective/Events-last exam Patient doing pretty well Slept a lot better Breathing well Bowels are moving We will discontinue telemetry We will Hep-Lock IV fluids since he feels much better Hemoglobin 9.3 No concerns at this point Review of Systems General: Fatigue Pulmonary: Dyspnea, Cough Objective Exam Vital Signs Vital Signs Date Time Temp Pulse Resp B/P (MAP) Pulse Ox O2 Delivery O2 Flow Rate FiO2 10/22/18 15:17 90 Nasal Cannula 2.00 10/22/18 07:00 55 10/22/18 05:44 97.8 18 174/72 (106) Capillary Refill : Less Than 3 Seconds General Appearance: No Apparent Distress, WD/WN, Chronically ill, Obese Respiratory: Chest Non Tender, Lungs Clear, Normal Breath Sounds, No Accessory Muscle Use, No Respiratory Distress Cardiovascular: Regular Rate, Rhythm, No Edema, No Gallop, No JVD, No Murmur, Normal Peripheral Pulses Neurologic/Psychiatric: Alert, Oriented x3, No Motor/Sensory Deficits, Normal Mood/Affect Results/Procedures Lab Laboratory Tests 10/22/18 05:15 Patient resulted labs reviewed. Assessment/Plan Assessment and Plan Assess & Plan/Chief Complaint Assessment per PCP: PNEUMONIA - SUSPECT MRSA PNEUMONIA HX OF MRSA IN SPUTUM NON-ST MYOCARDIAL INFARCTION - SUSPECT DUE TO RESPIRATORY DISTRESS HYPERTENSION CORONARY ARTERY DISEASE INFLAMED STOMA BLOOD LOSS FROM STOMA ANEMIA OF CHRONIC DISEASE HYPERLIPIDEMIA PERIPHERAL NEUROPATHY DEPRESSION CONSTIPATION INSOMNIA GENERALIZED WEAKNESS HX OF TOBACCOISM Plan: DC Tely HLIVF IV abx Diagnosis/Problems Diagnosis/Problems (1) MRSA pneumonia Status: Acute Qualifiers: Laterality: unspecified laterality Lung location: unspecified part of lung Qualified Codes: J15.212 - Pneumonia due to methicillin resistant Staph ylococcus aureus (2) CAD (coronary artery disease) Status: Chronic Qualifiers: Coronary Disease-Associated Artery/Lesion type: [place] artery [place] vs. transplanted heart: [place] heart Associated angina: without angina Qualified Codes: I25.10 - Atherosclerotic heart disease of [place] coronary artery without angina pectoris Clinical Quality Measures DVT/VTE Risk/Contraindication: Risk Factor Score Per Nursin WILFREDO GRADY DO Oct 22, 2018 09:32
--- NOTE | 2018-10-22 09:57 | Diagnostic Imaging Report ---
Indication: Cough and shortness of breath. Comparison made with prior examination of 10/20/2018. Findings: There is cardiomegaly. There are bilateral pulmonary infiltrates. There is some venous congestion. Small bilateral pleural effusions. No pneumothorax. Previous mediastinum sternotomy and coronary artery bypass graft. Impression: Bilateral pulmonary infiltrates and bilateral pleural effusions. Mild central pulmonary venous congestion. Dictated by: Dictated on workstation # [id number]
--- NOTE | 2018-10-22 10:07 | Cardiology Progress Note ---
Subjective Date Seen by Provider: Oct 22, 2018 Time Seen by Provider: 10:04 Subjective/Events-last exam patient is sitting in a chair, feeling better. No new complaint. Review of Systems General: No Chills, No Night Sweats, No Fatigue, No Malaise, No Appetite, No Other HEENT: No Head Aches, No Visual Changes, No Eye Pain, No Ear Pain, No Dysphasia, No Sinus Congestion, No Post Nasal Drip, No Sore Throat, No Other Pulmonary: No Dyspnea, No Cough, No Pleuritic Chest Pain, No Other Cardiovascular: No: Chest Pain, Palpitations, Orthopnea, Paroxysmal Noc. Dyspnea, Edema, Lt Headedness, Other Objective-Cardiology Exam Last Set of Vital Signs Vital Signs 10/22/18 10/22/18 05:44 07:00 Temp 97.8 Pulse 55 Resp 18 B/P (MAP) 174/72 (106) Pulse Ox 97 O2 Delivery Nasal Cannula O2 Flow Rate 2.00 Capillary Refill : Less Than 3 Seconds I&O Intake and Output 10/22/18 00:00 Intake Total 1600 ml Output Total 5700 ml Balance -4100 ml Intake Oral 1600 ml Output Urine Total 5650 ml Stool Total 50 ml General: Alert, Oriented X3, Cooperative HEENT: Atraumatic, PERRLA Neck: Supple Lungs: Other (DECREASED AIR MOVEMENT THROUGHOUT) Heart: Regular Rate, Normal S1, Normal S2 Abdomen: Normal Bowel Sounds, Soft Extremities: No Clubbing, No Cyanosis, No Edema, Normal Pulses, No Tenderness/Swelling Skin: No Rashes, No Breakdown, No Significant Lesion Neuro: Cranial Nerves 3-12 NL Psych/Mental Status: Mental Status NL, Mood NL Results Lab Laboratory Tests 10/22/18 05:15 A/P-Cardiology Admission Diagnosis Pneumonia Shortness of breath Coronary artery disease Hypertension Assessment/Plan Shortness of breath, improving slowly. Managed by Dr. Hutton. Pneumonia, recurrent, had MRSA in June by bronchoscopy, managed by Dr. Hutton Type II myocardial infarction, mild elevation in troponin level, probably due to respiratory failure and hypoxemia. Conservative management is recommended Coronary artery disease, history of CABG x3 done in 1999 using RODRIGEZ to LAD, vein graft to the first obtuse marginal, vein graft to the left posterolateral branch of the left circumflex artery. Last cardiac catheterization was done in November 2013 showing occluded vein graft to the left circumflex artery. Patient had 2 stents in the [place] circumflex artery using 3.516 mm proximally and 3.520 mm at the midportion Promus Premier stents, distally there was 60 percent stenosis which will be monitored. The LAD has significant disease proximally, patient has significantly tortuous thoracic and abdominal aorta. Deferred the the evaluation of the RODRIGEZ due to the use of large amount of contrast. The right coronary artery is a small none dominant artery was not even visualized during this study. Patient had another stent placed in the circumflex artery in [facility] in 2014, no recent workup for follow-up was done. continue to monitor at this time Heavily calcified thoracic and abdominal aorta. CTA done on 01/06/2014 revealed no aneurysm or occlusions or stenosis of abdominal aorta or major branches Valvular heart disease with mild aortic regurgitation, mild mitral and tricuspid regurgitation. Moderate left ventricular hypertrophy. Hypertension, poorly controlled blood pressure, I will change clonidine to 0.2 mg 3 times a day and continue on hydrochlorothiazide, losartan, Norvasc and Coreg and monitor Hyperlipidemia, continue to monitor. History of CVA. Continue to monitor. Mild carotid stenosis, nonobstructive disease bilaterally, has been followed in [facility], requesting to transfer is service back to my office. I will evaluate carotid ultrasound as an outpatient COPD/obstructive sleep apnea, Continue to monitor. History of prostate CA with questionable metastasis, patient expressed that it has been followed and managed at . He reported that it was slow growing and the recommendation was conservative management. Cauda equina syndrome, underwent surgery, patient expressed that he did not have full recovery Clinical Quality Measures DVT/VTE Risk/Contraindication: Risk Factor Score Per Nursin KIMBERLI BARRETT MD Oct 22, 2018 10:07
--- NOTE | 2018-10-22 11:58 | Occupational Ther Daily Note ---
OT Current Status-Daily Note Subjective Pt alert, sitting in recliner. Pt agrees to therapy. No c/o pain. Mental Status/Objective Therapy Code Descriptions/Definitions Functional [place] Measure: 0=Not Assessed/NA 4=Minimal Assistance 1=Total Assistance 5=Supervision or Setup 2=Maximal Assistance 6=Modified [place] 3=Moderate Assistance 7=Complete [place] ADL-Treatment Therapy Code Descriptions/Definitions Functional [place] Measure: 0=Not Assessed/NA 4=Minimal Assistance 1=Total Assistance 5=Supervision or Setup 2=Maximal Assistance 6=Modified [place] 3=Moderate Assistance 7=Complete [place] Therapy Quality Codes: 6 Independent with activity with or without an assistive device 5 Patient requires set up or clean up by helper. Patient completes activity by themselves 4 Supervision or touching assist (CGA). [place] provide cues , steadying as sist 3 The helper provides less than half the effort to complete the activity 2 The helper provides more than half the effort to complete the activity 1 Dependent. The helper does all the effort to complete an activity 7 Patient refused to complete or attempt activity 9 The patient did not perform the activity before the current illness or injury 88 Not attempted due to Medical conditions or safety concerns Other Treatment Pt completed B UE exercises against gravity. Pt c/o discomfort during exercises due to inactivity and SOA due to decreased activity tolerance, recovery breaks taken throughout session. 5 UE exercises completed to increase strength and activity tolerance for daily functional tasks. After therapy, pt sitting in recliner with lunch. Call light/phone in reach. Nrsg in room. All needs met in. OT Short Term Goals Short Term Goals 1=Demonstrate adherence to instructed precautions during ADL tasks. 2=Patient will verbalize/demonstrate understanding of assistive devices/modifications for ADL. 3=Patient will improve strength/tolerance for activity to enable patient to perform ADL's. OT Rouge Miller Goals Rouge Miller Goals Time Frame: Nov 02, 2018 Groomin Oral Hygiene (QC): 6 Bathing(FIM): 5 Shower/Bathe Self (QC): 4 Upper Body Dressing(FIM): 5 Upper Body Dressing (QC): 5 Lower Body Dressing(FIM): 5 Lower Body Dressing (QC): 4 On/Off Footwear (QC): 5 Additional Goals: 1-Demonstrate ADL Tasks, 2-Verbalize Understanding, 3- ImproveStrength/Razia 1=Demonstrate adherence to instructed precautions during ADL tasks. 2=Patient will verbalize/demonstrate understanding of assistive devices/modifications for ADL. 3=Patient will improve strength/tolerance for activity to enable patient to perform ADL's. OT Education/Plan Problem List/Assessment Assessment: Decreased Activ Tolerance, Decreased UE Strength Pt to benefit from skilled OT intervention for ADL training, transfers, and strengthening to increase level of independence and allow safe discharge home with spouse. Discharge Recommendations Plan/Recommendations: Continue POC Treatment Plan/Plan of Care Patient would benefit from OT for education, treatment and training to promote independence in ADL's, mobility, safety and/or upper extremity function for ADL's. Plan of Care: ADL Retraining, Functional Mobility, UE Funct Exercise/Act Frequency: 5 times per week Estimated Hrs Per Day: .25 hour per day Rehab Potential: Fair Time/GCodes Start Time: 11:42 Stop Time: 11:57 Total Time Billed (hr/min): 15 Billed Treatment Time 1 visit-EX 1 (15 min) ABIMAEL RAMOS Oct 22, 2018 11:58
--- NOTE | 2018-10-22 14:14 | Physical Therapy Daily Note ---
PT Daily Note-Current Subjective Patient in bed pre tx, agrees to PT, has 4-5/10 pain in legs and back. He says he has already had pain meds. Appearance Patient in bed post tx with nurse call, ,phone, tray, in room. Mental Status Patient Orientation: Person, Place, Situation Transfers Therapy Code Descriptions/Definitions Functional [place] Measure: 0=Not Assessed/NA 4=Minimal Assistance 1=Total Assistance 5=Supervision or Setup 2=Maximal Assistance 6=Modified [place] 3=Moderate Assistance 7=Complete [place] Therapy Quality Codes: 6 Independent with activity with or without an assistive device 5 Patient requires set up or clean up by helper. Patient completes activity by themselves 4 Supervision or touching assist (CGA). [place] provide cues , steadying paul t 3 The helper provides less than half the effort to complete the activity 2 The helper provides more than half the effort to complete the activity 1 Dependent. The helper does all the effort to complete an activity 7 Patient refused to complete or attempt activity 9 The patient did not perform the activity before the current illness or injury 88 Not attempted due to Medical conditions or safety concerns Exercises Supine Ex: Ankle pumps, Quad Set, Glut sets, Heel Slides, Short Arc Quads, Straight leg raise, Hip abd/add Supine Reps: 20 Treatments LE exercise Assessment Current Status: Fair Progress occasional rest break PT Usp Goals Usp Goals PT Usp Goals Time Frame: Nov 03, 2018 Transfers (B,C,W/C) (FIM): 6 Sit to Lying (QC): 6 Lying-Sitting on Side/Bed(QC): 6 Sit to Stand (QC): 6 Rollin Roll Left to Right (QC): 6 Chair/Zxc-fi-Pfnqe Xfer(QC): 6 Car Transfer (QC): 6 Does the Patient Walk: No and Walking Goal NOT indicated PT Plan Problem List Problem List: Activity Tolerance, Functional Strength, Safety, Balance, Gait, Transfer, Bed Mobility, ROM Treatment/Plan Treatment Plan: Continue Plan of Care Treatment Plan: Education, Functional Activity Razia, Functional Strength, Safety, Therapeutic Exercise, Transfers Treatment Duration: Nov 03, 2018 Frequency: 6 times per week Estimated Hrs Per Day: .25 hour per day Patient and/or Family Agrees t: Yes Safety Risks/Education Patient Education: Correct Positioning, Safety Issues Teaching Recipient: Patient Teaching Methods: Demonstration, Discussion Response to Teaching: Reinforcement Needed Time/GCodes Time In: 1350 Time Out: 1401 Total Billed Treatment Time: 11 Total Billed Treatment 1 visit EX AKIN ORONA PT Oct 22, 2018 14:14
[2018-10-22] MEDS: ENOXAPARIN 40 MG/0.4 ML (LOVENOX) SYR SC SCH (17:51)
[2018-10-22] MEDS: VANCOMYCIN INJECTION 1,750 MG in NS IV 500 ML 500 ML IV SCH (17:51)
[2018-10-22 18:00] VITALS: BP 144/65
[2018-10-22 21:12] VITALS: BP 157/70
[2018-10-22] MEDS: MELATONIN 3 MG TABLET PO SCH (21:15)
[2018-10-23] MEDS: RT-ALBUTEROL/IPRATROPIUM 3 ML (DUONEB) VIAL INH SCH ×6 (01:28→22:46)
[2018-10-23 04:50] VITALS: BP 168/78
[2018-10-23] MEDS: PIPERACILLIN/TAZOBACTAM (BULK) 4.5 GM in NS (IVPB) 100 ML IV SCH (06:29)
[2018-10-23] MEDS: methylPREDNISolone 40 MG/ML (Solu-MEDROL) VIAL IV SCH ×4 (06:29→23:32)
--- NOTE | 2018-10-23 08:40 | Cardiology Progress Note ---
Subjective Date Seen by Provider: Oct 23, 2018 Time Seen by Provider: 08:39 Subjective/Events-last exam patient is laying down in bed, feeling better. No new complaint. Breathing better Review of Systems General: No Chills, No Night Sweats, No Fatigue, No Malaise, No Appetite, No Other HEENT: No Head Aches, No Visual Changes, No Eye Pain, No Ear Pain, No Dysphasia, No Sinus Congestion, No Post Nasal Drip, No Sore Throat, No Other Pulmonary: No Dyspnea, No Cough, No Pleuritic Chest Pain, No Other Cardiovascular: No: Chest Pain, Palpitations, Orthopnea, Paroxysmal Noc. Dyspnea, Edema, Lt Headedness, Other Objective-Cardiology Exam Last Set of Vital Signs Vital Signs 10/23/18 10/23/18 04:50 06:52 Temp 98.1 Pulse 65 Resp 20 B/P (MAP) 168/78 (108) Pulse Ox 95 O2 Delivery Nasal Cannula O2 Flow Rate 2.00 Capillary Refill : Less Than 3 Seconds I&O Intake and Output 10/22/18 23:59 Intake Total 3352 ml Output Total 5050 ml Balance -1698 ml Intake Oral 1715 ml IV Total 1637 ml Output Urine Total 5050 ml # Bowel Movements 1 General: Alert, Oriented X3, Cooperative HEENT: Atraumatic, PERRLA Neck: Supple Lungs: Other (DECREASED AIR MOVEMENT THROUGHOUT) Heart: Regular Rate, Normal S1, Normal S2 Abdomen: Normal Bowel Sounds, Soft Extremities: No Clubbing, No Cyanosis, No Edema, Normal Pulses, No Tenderness/Swelling Skin: No Rashes, No Breakdown, No Significant Lesion Neuro: Cranial Nerves 3-12 NL Psych/Mental Status: Mental Status NL, Mood NL A/P-Cardiology Admission Diagnosis Pneumonia Shortness of breath Coronary artery disease Hypertension Assessment/Plan Shortness of breath, improving slowly. Managed by Dr. Hutton. Pneumonia, recurrent, had MRSA in June by bronchoscopy, managed by Dr. Hutton Type II myocardial infarction, mild elevation in troponin level, probably due to respiratory failure and hypoxemia. Conservative management is recommended Coronary artery disease, history of CABG x3 done in 1999 using RODRIGEZ to LAD, vein graft to the first obtuse marginal, vein graft to the left posterolateral branch of the left circumflex artery. Last cardiac catheterization was done in November 2013 showing occluded vein graft to the left circumflex artery. Patient had 2 stents in the [place] circumflex artery using 3.516 mm proximally and 3.520 mm at the midportion Promus Premier stents, distally there was 60 percent stenosis which will be monitored. The LAD has significant disease proximally, patient has significantly tortuous thoracic and abdominal aorta. Deferred the the evaluation of the RODRIGEZ due to the use of large amount of contrast. The right coronary artery is a small none dominant artery was not even visualized during this study. Patient had another stent placed in the circumflex artery in [facility] in 2014, no recent workup for follow-up was done. continue to monitor at this time Heavily calcified thoracic and abdominal aorta. CTA done on 01/06/2014 revealed no aneurysm or occlusions or stenosis of abdominal aorta or major branches Valvular heart disease with mild aortic regurgitation, mild mitral and tricuspid regurgitation. Moderate left ventricular hypertrophy. Hypertension, on multiple medication, maximized on most of his medication. Continue on current medication and monitor blood pressure Hyperlipidemia, continue to monitor. History of CVA. Continue to monitor. Mild carotid stenosis, nonobstructive disease bilaterally, has been followed in [facility], requesting to transfer is service back to my office. I will evaluate carotid ultrasound as an outpatient COPD/obstructive sleep apnea, Continue to monitor. History of prostate CA with questionable metastasis, patient expressed that it has been followed and managed at . He reported that it was slow growing and the recommendation was conservative management. Cauda equina syndrome, underwent surgery, patient expressed that he did not have full recovery Clinical Quality Measures DVT/VTE Risk/Contraindication: Risk Factor Score Per Nursin KIMBERLI BARRETT MD Oct 23, 2018 08:40
--- NOTE | 2018-10-23 09:26 | Pulmonary Progress Note ---
Subjective Time Seen by a Provider: 09:25 Subjective/Events-last exam Pt is feeling much improved. Sepsis Event Evaluation Height, Weight, BMI Height: 5'10.00" Weight: 245lbs. 6.0oz. 111.498948pd; 35.2 BMI Method:Stated Exam Exam Vital Signs Date Time Temp Pulse Resp B/P (MAP) Pulse Ox O2 Delivery O2 Flow Rate FiO2 10/23/18 06:52 95 Nasal Cannula 2.00 10/23/18 04:50 98.1 65 20 168/78 (108) 94 NIV CPAP 4.00 10/23/18 01:28 98 Nasal Cannula 2.00 10/22/18 21:29 94 Nasal Cannula 2.00 10/22/18 21:12 67 157/70 (99) 10/22/18 21:00 Nasal Cannula 2.00 10/22/18 18:24 93 Nasal Cannula 2.00 10/22/18 18:00 97.4 64 20 144/65 (91) 95 Nasal Cannula 2.00 10/22/18 15:17 90 Nasal Cannula 2.00 10/22/18 10:50 99 Nasal Cannula 4.00 I & O 10/23/18 07:00 Intake Total 2060 ml Output Total 4350 ml Balance -2290 ml Height & Weight Height: 5'10.00" Weight: 245lbs. 6.0oz. 111.247050qe; 35.2 BMI Method:Stated General Appearance: No Apparent Distress, WD/WN, Chronically ill, Obese HEENT: PERRL/EOMI, Normal ENT Inspection, Pharynx Normal Neck: Full Range of Motion, Non Tender, Supple Respiratory: Chest Non Tender, Lungs Clear, Normal Breath Sounds, No Accessory Muscle Use, No Respiratory Distress Cardiovascular: Regular Rate, Rhythm, No Edema, No Gallop, No JVD, No Murmur, Normal Peripheral Pulses Capillary Refill: Less Than 3 Seconds Gastrointestinal: normal bowel sounds, non tender, soft Extremity: Normal Capillary Refill, Non Tender Neurologic/Psychiatric: Alert, Oriented x3, No Motor/Sensory Deficits, Normal Mood/Affect Skin: Normal Color, Warm/Dry Lymphatic: No Adenopathy Results Lab Laboratory Tests 10/22/18 05:15 Assessment/Plan Assessment/Plan Pneumonia - with hx of MRSA -Currently on NC -SVNs -Pt appears to be improving respiratory mccartney -[facility] cultures -tx with Vanco x 14days Zosyn x 7 days -Try to arrange for out pt Abx -Urine strep and legionella Ag - is negative. RLD with pulmonary fibrosis -Duoneb Q 4 Hx of diastolic cardiomyopathy with elevated BNP -Lasix NSTEMI - probably type II -Monitor - Dr. Barajas following Obesity/deconditioning LAUREN CHIN DO Oct 23, 2018 09:26
--- NOTE | 2018-10-23 09:33 | Progress Note ---
Subjective Date Seen by a Provider: Oct 23, 2018 Time Seen by a Provider: 09:10 Subjective/Events-last exam PT REPORTS THAT HE IS FEELING FATIGUED, HE HAD A ROUGH NIGHT FROM A SLEEP PERSPECTIVE DUE TO HIS BLOOD PRESSURE BEING QUITE ELEVATED. HE DENIES CHEST PAIN, SHORTNESS OF BREATH IS CHRONIC AND UNCHANGED. HE DENIES ABDOMINAL PAIN, FEELS LIKE HIS OSTOMY IS WORKING WELL. Review of Systems General: Fatigue HEENT: No Head Aches Pulmonary: Dyspnea, Cough Cardiovascular: No: Chest Pain, Palpitations Gastrointestinal: No: Nausea, Abdominal Pain, Diarrhea Genitourinary: Other (SUPRAPUBIC NAPIER IN PLACE) Neurological: Weakness; No: Confusion Objective Exam Last Set of Vital Signs Vital Signs Date Time Temp Pulse Resp B/P (MAP) Pulse Ox O2 Delivery O2 Flow Rate FiO2 10/23/18 06:52 95 Nasal Cannula 2.00 10/23/18 04:50 98.1 65 20 168/78 (108) Capillary Refill : Less Than 3 Seconds I&O Intake and Output 10/23/18 00:00 Intake Total 3352 ml Output Total 5050 ml Balance -1698 ml Intake Oral 1715 ml IV Total 1637 ml Output Urine Total 5050 ml # Bowel Movements 1 General: Alert, Oriented X3, Cooperative HEENT: Atraumatic, PERRLA Neck: Supple Lungs: Other (DECREASED THROUGHOUT WITH CRACKLES IN LOWER LOBES BILATERALLY) Abdomen: Normal Bowel Sounds, Soft, Other (HERNIA AT OSTOMY SITE, OSTOMY TISSUE LOOKS PINK, HEALTHY, FECES IN OSTOMY BAG WITHOUT BLOOD) Neuro: Cranial Nerves 3-12 NL Psych/Mental Status: Mental Status NL, Mood NL Assessment/Plan Assessment/Plan Assess & Plan/Chief Complaint PNEUMONIA - MRSA PNEUMONIA HX OF MRSA IN SPUTUM NON-ST MYOCARDIAL INFARCTION - SUSPECT DUE TO RESPIRATORY DISTRESS HYPERTENSION CORONARY ARTERY DISEASE INFLAMED STOMA BLOOD LOSS FROM STOMA ANEMIA OF CHRONIC DISEASE HYPERLIPIDEMIA PERIPHERAL NEUROPATHY DEPRESSION CONSTIPATION INSOMNIA GENERALIZED WEAKNESS HX OF TOBACCOISM PNEUMONIA - MRSA PNEUMONIA -PT ON VANCOMYCIN, ZOSYN, CONTINUE WITH THIS TREATMENT,DISCUSSED WITH DR. CHIN - CONTINUE WITH ZOSYN WITH DOSE TO FINISH TODAY 10/23/18 AND CONTINUE WITH VANCOMYCIN UNTIL 10/29/18 HX OF MRSA IN SPUTUM - SEE ABOVE NON-ST MYOCARDIAL INFARCTION - SUSPECT DUE TO RESPIRATORY DISTRESS - WITH KNOWN HX OF CORONARY ARTERY DISEASE - DEFER TO DR. BARRETT - MEANWHILE CONTINUE WITH HOME REGIMEN. - AGREE WITH CONSERVATIVE MANAGEMENT AT THIS TIME. HYPERTENSION - RESUMED HOME REGIMEN - ADDED ARB AND INCREASED DOSE OF CLONIDINE TO BID, CONTINUED OTHER HOME MEDICATIONS. - ADJUST MEDS NEEDED INFLAMED STOMA - DISCUSSED WITH WOUND CARE NURSE -JOHANA - CULTURE OF THE STOMA SHOWS STAPH- CONTINUE WITH BETAMETHASONE/CLOTRIMAZOLE CREAM A PREEMPTIVE TREATMENT. BLOOD LOSS FROM STOMA AND ANEMIA OF CHRONIC DISEASE - - MONITOR H AND H, WILL TRANSFUSE IF BELOW 8 DUE TO CARDIAC DISEASE HYPERLIPIDEMIA - THE PT IS ON PRALUENT PEN - HOLD TREATMENT WHILE IN HOSPITAL PERIPHERAL NEUROPATHY - RESTARTED GABAPENTIN DEPRESSION - RESTARTED CYMBALTA CONSTIPATION - MONITOR OUTPUT - CONTINUE WITH MIRALAX TO PREVENT CONSTIPATION FROM STOMA WHICH WOULD CAUSE FURTHER INFLAMMATION OF STOMAL SITE INSOMNIA - RESTARTED MELATONIN, AND ADDED BENADRYL DUE TO PT NOT SLEEPING WELL ON JUST THE MELATONIN GENERALIZED WEAKNESS - PT AND OT TO CONTINUE WE TRY TO IMPROVE HIS FUNCTIONING FOR SAFETY AT HOME HX OF TOBACCOISM Clinical Quality Measures DVT/VTE Risk/Contraindication: Risk Factor Score Per Nursin FEDE BUTLER MD Oct 23, 2018 09:33
[2018-10-23] MEDS: FUROSEMIDE 40 MG/4 ML INJ (LASIX) IVP SCH (09:43)
[2018-10-23] MEDS: amLODIPine 10 MG (NORVASC) TAB PO SCH (09:45)
[2018-10-23] MEDS: HYDROCHLOROTHIAZIDE 25 MG (HCTZ) TAB PO SCH (09:45)
[2018-10-23] MEDS: DOCUSATE SODIUM 100 MG (COLACE) CAP PO SCH ×2 (09:45→21:00)
[2018-10-23] MEDS: CLOPIDOGREL 75 MG (PLAVIX) TABLET PO SCH (09:45)
[2018-10-23] MEDS: DULoxetine 30 MG (CYMBALTA) CAP PO SCH (09:45)
[2018-10-23] MEDS: CARVEDILOL 12.5 MG (COREG) TABLET PO SCH ×2 (09:45→20:59)
[2018-10-23] MEDS: LOSARTAN 100 MG (COZAAR) TABLET PO SCH (09:45)
[2018-10-23] MEDS: GABAPENTIN 600 MG (NEURONTIN) TAB PO SCH ×2 (09:45→20:59)
[2018-10-23] MEDS: FAMOTIDINE 20 MG (PEPCID) TABLET PO SCH (09:45)
[2018-10-23] MEDS: cloNIDine 0.2 MG (CATAPRES) TAB PO SCH ×3 (09:45→20:59)
[2018-10-23 09:48] VITALS: BP 172/80
[2018-10-23] MEDS: MENTHOL/ZINC OXIDE (CALMOSEPTINE) 113 GM TUBE TOP SCH ×2 (09:53→21:01)
[2018-10-23] MEDS: POLYETHYLENE GLYCOL 17 GM (MIRALAX) PACK PO PRN (10:19)
--- NOTE | 2018-10-23 13:54 | Physical Therapy Daily Note ---
PT Daily Note-Current Subjective Patient agrees to PT. Exercises only. Transfers Therapy Code Descriptions/Definitions Functional [place] Measure: 0=Not Assessed/NA 4=Minimal Assistance 1=Total Assistance 5=Supervision or Setup 2=Maximal Assistance 6=Modified [place] 3=Moderate Assistance 7=Complete [place] Therapy Quality Codes: 6 Independent with activity with or without an assistive device 5 Patient requires set up or clean up by helper. Patient completes activity by themselves 4 Supervision or touching assist (CGA). [place] provide cues , steadying assist 3 The helper provides less than half the effort to complete the activity 2 The helper provides more than half the effort to complete the activity 1 Dependent. The helper does all the effort to complete an activity 7 Patient refused to complete or attempt activity 9 The patient did not perform the activity before the current illness or injury 88 Not attempted due to Medical conditions or safety concerns Exercises Supine Ex: Ankle pumps, Quad Set, Heel Slides, Straight leg raise, Hip abd/add Supine Reps: 15 (2 sets) Seated Therapy Exercises: Ankle pumps, Long arc quads, Hip flexion Seated Reps: 15 (2 sets) Assessment Patient tolerated treatment well and remained in recliner with bilateral LE elevated. Patient is highly motivated with progress. PT Grain Combiner Goals Detention Goals PT Grain Combiner Goals Time Frame: Nov 03, 2018 Transfers (B,C,W/C) (FIM): 6 Sit to Lying (QC): 6 Lying-Sitting on Side/Bed(QC): 6 Sit to Stand (QC): 6 Rollin Roll Left to Right (QC): 6 Chair/Keb-eo-Rhgkt Xfer(QC): 6 Car Transfer (QC): 6 Does the Patient Walk: No and Walking Goal NOT indicated PT Plan Treatment/Plan Treatment Plan: Continue Plan of Care Treatment Plan: Education, Functional Activity Razia, Functional Strength, S afety, Therapeutic Exercise, Transfers Treatment Duration: Nov 03, 2018 Frequency: 6 times per week Estimated Hrs Per Day: .25 hour per day Patient and/or Family Agrees t: Yes Time/GCodes Time In: 1325 Time Out: 1348 Total Billed Treatment Time: 23 Total Billed Treatment 1 visit EX x 2 23 min DELANO MONTGOMERY PT Oct 23, 2018 13:54
--- NOTE | 2018-10-23 14:14 | Occupational Ther Daily Note ---
OT Current Status-Daily Note Subjective Pt alert, lying in bed. Pt agrees to therapy. Pt states that he doesn't feel as good as he did yesterday. Mental Status/Objective Patient Orientation: Person, Place, Time, Situation Therapy Code Descriptions/Definitions Functional [place] Measure: 0=Not Assessed/NA 4=Minimal Assistance 1=Total Assistance 5=Supervision or Setup 2=Maximal Assistance 6=Modified [place] 3=Moderate Assistance 7=Complete [place] Attachments: Barrios Catheter, IV ADL-Treatment Therapy Code Descriptions/Definitions Functional [place] Measure: 0=Not Assessed/NA 4=Minimal Assistance 1=Total Assistance 5=Supervision or Setup 2=Maximal Assistance 6=Modified [place] 3=Moderate Assistance 7=Complete [place] Therapy Quality Codes: 6 Independent with activity with or without an assistive device 5 Patient requires set up or clean up by helper. Patient completes activity by themselves 4 Supervision or touching assist (CGA). [place] provide cues , steadying assist 3 The helper provides less than half the effort to complete the activity 2 The helper provides more than half the effort to complete the activity 1 Dependent. The helper does all the effort to complete an activity 7 Patient refused to complete or attempt activity 9 The patient did not perform the activity before the current illness or injury 88 Not attempted due to Medical conditions or safety concerns Other Treatment Pt agreed to sit in recliner to eat lunch. Pt stated that he was w/c bound and to move around he by using furniture. Supine to EOB with HOB raised by self. CGA using room chair to go from EOB to recliner. After therapy, pt sitting in recliner with call light/phone in reach. All needs met in room. OT Short Term Goals Short Term Goals 1=Demonstrate adherence to instructed precautions during ADL tasks. 2=Patient will verbalize/demonstrate understanding of assistive devices/mod ifications for ADL. 3=Patient will improve strength/tolerance for activity to enable patient to perform ADL's. OT Spinning Mule Operator Goals Spinning Mule Operator Goals Time Frame: Nov 02, 2018 Groomin Oral Hygiene (QC): 6 Bathing(FIM): 5 Shower/Bathe Self (QC): 4 Upper Body Dressing(FIM): 5 Upper Body Dressing (QC): 5 Lower Body Dressing(FIM): 5 Lower Body Dressing (QC): 4 On/Off Footwear (QC): 5 Additional Goals: 1-Demonstrate ADL Tasks, 2-Verbalize Understanding, 3- ImproveStrength/Razia 1=Demonstrate adherence to instructed precautions during ADL tasks. 2=Patient will verbalize/demonstrate understanding of assistive devices/modifications for ADL. 3=Patient will improve strength/tolerance for activity to enable patient to perform ADL's. OT Education/Plan Problem List/Assessment Assessment: Decreased Activ Tolerance, Impaired Coordination, Impaired Funct Balance, Impaired Self-Care Skills Pt to benefit from skilled OT intervention for ADL training, transfers, and strengthening to increase level of independence and allow safe discharge home with spouse. Discharge Recommendations Plan/Recommendations: Continue POC Treatment Plan/Plan of Care Patient would benefit from OT for education, treatment and training to promote independence in ADL's, mobility, safety and/or upper extremity function for A DL's. Plan of Care: ADL Retraining, Functional Mobility, UE Funct Exercise/Act Frequency: 5 times per week Estimated Hrs Per Day: .25 hour per day Rehab Potential: Fair Time/GCodes Start Time: 12:30 Stop Time: 12:45 Total Time Billed (hr/min): 15 Billed Treatment Time 1 visit-FA 1 (15 min) ABIMAEL RAMOS Oct 23, 2018 14:14
[2018-10-23] MEDS ORDERED: TROUGH ORDER-PHARMACY XX NR (16:30)
[2018-10-23] MEDS: VANCOMYCIN INJECTION 1,750 MG in NS IV 500 ML 500 ML IV SCH (17:55)
[2018-10-23 18:00] VITALS: BP 148/66
[2018-10-23] MEDS: ENOXAPARIN 40 MG/0.4 ML (LOVENOX) SYR SC SCH (18:04)
[2018-10-23] MEDS ORDERED: VANCOMYCIN 500 MG/NS 100 ML IV NR ×2 (19:30)
[2018-10-23] MEDS: MELATONIN 3 MG TABLET PO SCH (20:59)
[2018-10-23] MEDS: diphenhydrAMINE 25 MG TAB (BENADRYL) PO PRN (21:00)
[2018-10-24] MEDS: RT-ALBUTEROL/IPRATROPIUM 3 ML (DUONEB) VIAL INH SCH ×6 (03:00→22:46)
[2018-10-24 03:59] VITALS: BP 178/86
[2018-10-24] MEDS: hydrALAZINE (APESOLINE) 20 MG/ML VIAL IV PRN (04:05)
[2018-10-24 04:18] VITALS: BP 158/67
[2018-10-24 04:51] VITALS: BP 157/67
[2018-10-24 04:57] LABS: HEMOGLOBIN 9.2 G/DL (13.3-17.7); MEAN PLATELET VOLUME 9.1 FL (7.4-10.4); RED CELL DISTRIBUTION WIDTH 16.7 % (10.0-14.5); WHITE BLOOD COUNT 6.8 10^3/uL (4.3-11.0)
[2018-10-24 05:17] LABS: ALANINE AMINOTRANSFERASE 30 U/L (0-55); ALKALINE PHOSPHATASE 74 U/L (40-136); BILIRUBIN,TOTAL 0.3 MG/DL (0.1-1.0); BUN/CREATININE RATIO 35; CALCIUM 8.3 MG/DL (8.5-10.1); CARBON DIOXIDE 28 MMOL/L (21-32); CHLORIDE 98 MMOL/L (98-107); CREATININE SERUM 0.85 MG/DL (0.60-1.30); GFR ESTIMATED > 60; GLUCOSE 122 MG/DL (70-105); SODIUM 135 MMOL/L (135-145)
[2018-10-24 05:48] VITALS: BP 177/81
[2018-10-24] MEDS: methylPREDNISolone 40 MG/ML (Solu-MEDROL) VIAL IV SCH ×2 (06:02→18:00)
--- NOTE | 2018-10-24 07:05 | Pulmonary Progress Note ---
Subjective Time Seen by a Provider: 07:02 Subjective/Events-last exam NO complications noted. Sepsis Event Evaluation Height, Weight, BMI Height: 5'10.00" Weight: 245lbs. 6.0oz. 111.230659oc; 35.2 BMI Method:Stated Exam Exam Vital Signs Date Time Temp Pulse Resp B/P (MAP) Pulse Ox O2 Delivery O2 Flow Rate FiO2 10/24/18 06:26 98 NIV CPAP 3.00 10/24/18 05:48 97.7 59 18 177/81 (113) 98 NIV CPAP 3.00 10/24/18 04:51 60 157/67 (97) 99 NIV CPAP 3.00 10/24/18 04:18 63 158/67 (97) 10/24/18 03:59 178/86 (116) 64 10/24/18 03:00 94 NIV CPAP 3.00 10/23/18 22:46 97 Nasal Cannula 2.00 10/23/18 21:00 Nasal Cannula 2.00 10/23/18 18:43 95 Nasal Cannula 2.50 10/23/18 18:00 97.6 67 20 148/66 (93) 92 Room Air 10/23/18 15:17 96 Nasal Cannula 2.00 10/23/18 11:00 97 Nasal Cannula 2.00 10/23/18 09:48 66 20 172/80 (110) 97 Room Air 10/23/18 09:45 97 Nasal Cannula 2.00 I & O 10/24/18 07:00 Intake Total 2247.5 ml Output Total 4350 ml Balance -2102.5 ml Height & Weight Height: 5'10.00" Weight: 245lbs. 6.0oz. 111.373270pz; 35.2 BMI Method:Stated General Appearance: No Apparent Distress, WD/WN HEENT: PERRL/EOMI, Normal ENT Inspection, Pharynx Normal Neck: Full Range of Motion, Non Tender, Supple Respiratory: Chest Non Tender, No Accessory Muscle Use, No Respiratory Distress, Crackles, Decreased Breath Sounds Cardiovascular: Regular Rate, Rhythm, No Gallop, No JVD Capillary Refill: Less Than 3 Seconds Gastrointestinal: normal bowel sounds, non tender, soft Extremity: Normal Capillary Refill, Non Tender Neurologic/Psychiatric: Alert, Oriented x3 Skin: Normal Color, Warm/Dry Lymphatic: No Adenopathy Results Lab Laboratory Tests 10/24/18 04:25 Assessment/Plan Assessment/Plan Pneumonia - with hx of MRSA -Currently on NC -SVNs -[facility] cultures - Vanco x 14days Zosyn x 7 days -Try to arrange for out pt Vanco to complete coarse -Urine strep and legionella Ag - is negative. RLD with pulmonary fibrosis -Duoneb Q 4 Hx of diastolic cardiomyopathy with elevated BNP -Lasix -Repeat BNP NSTEMI - probably type II -Monitor - Dr. Barajas following Obesity/deconditioning LAUREN CHIN DO Oct 24, 2018 07:05
--- NOTE | 2018-10-24 08:39 | Progress Note ---
Subjective Date Seen by a Provider: Oct 24, 2018 Time Seen by a Provider: 08:20 Subjective/Events-last exam PT REPORTS THAT HE IS FEELING A LITTLE BIT BETTER, HAS NOT BEEN SLEEPING WELL BUT IT WAS MUCH BETTER LAST NIGHT VERSUS YESTERDAY. Review of Systems General: Fatigue HEENT: No Head Aches Pulmonary: Dyspnea, Cough Cardiovascular: No: Chest Pain Gastrointestinal: No: Nausea, Abdominal Pain Neurological: Weakness; No: Confusion Objective Exam Last Set of Vital Signs Vital Signs Date Time Temp Pulse Resp B/P (MAP) Pulse Ox O2 Delivery O2 Flow Rate FiO2 10/24/18 06:26 98 NIV CPAP 3.00 10/24/18 05:48 97.7 59 18 177/81 (113) Capillary Refill : Less Than 3 Seconds I&O Intake and Output 10/24/18 00:00 Intake Total 2417.5 ml Output Total 3575 ml Balance -1157.5 ml Intake Oral 1680 ml IV Total 737.5 ml Output Urine Total 3475 ml Stool Total 100 ml General: Alert, Oriented X3, Cooperative, No Acute Distress HEENT: Atraumatic Neck: Supple Lungs: Other (DECREASED THROUGHOUT WITH CRACKLES IN BASES) Heart: Regular Rate Abdomen: Normal Bowel Sounds, Soft, No Tenderness Neuro: Cranial Nerves 3-12 NL Psych/Mental Status: Mental Status NL, Mood NL Results Lab Laboratory Tests 10/23/18 16:20: Vancomycin Level Trough 11.5 10/24/18 04:25: White Blood Count 6.8, Red Blood Count 3.51L, Hemoglobin 9.2L, Hematocrit 30L, Mean Corpuscular Volume 85, Mean Corpuscular Hemoglobin 26, Mean Corpuscular Hemoglobin Concent 31L, Red Cell Distribution Width 16.7H, Platelet Count 381, Mean Platelet Volume 9.1, Sodium Level 135, Potassium Level 4.0, Chloride Level 98, Carbon Dioxide Level 28, Anion Gap 9, Blood Urea Nitrogen 30H, Creatinine 0.85, Estimat Glomerular Filtration Rate > 60, BUN/Creatinine Ratio 35, Glucose Level 122H, Calcium Level 8.3L, Corrected Calcium 9.1, Total Bilirubin 0.3, Aspartate Amino Transf (AST/SGOT) 16, Alanine Aminotransferase (ALT/SGPT) 30, Alkaline Phosphatase 74, B-Type Natriuretic Peptide 183.1H, Total Protein 6.0L, Albumin 3.0L Assessment/Plan Assessment/Plan Assess & Plan/Chief Complaint PNEUMONIA - MRSA PNEUMONIA HX OF MRSA IN SPUTUM NON-ST MYOCARDIAL INFARCTION - SUSPECT DUE TO RESPIRATORY DISTRESS HYPERTENSION CORONARY ARTERY DISEASE INFLAMED STOMA BLOOD LOSS FROM STOMA ANEMIA OF CHRONIC DISEASE HYPERLIPIDEMIA PERIPHERAL NEUROPATHY DEPRESSION CONSTIPATION INSOMNIA GENERALIZED WEAKNESS HX OF TOBACCOISM PNEUMONIA - MRSA PNEUMONIA -PT ON VANCOMYCIN, ZOSYN, CONTINUE WITH THIS TREATMENT,DISCUSSED WITH DR. CHIN - CONTINUE WITH ZOSYN FINISHED ON 10/23/18 AND CONTINUE WITH VANCOMYCIN UNTIL 10/29/18 HX OF MRSA IN SPUTUM - SEE ABOVE NON-ST MYOCARDIAL INFARCTION - SUSPECT DUE TO RESPIRATORY DISTRESS - WITH KNOWN HX OF CORONARY ARTERY DISEASE - DEFER TO DR. BARRETT - MEANWHILE CONTINUE WITH HOME REGIMEN. - AGREE WITH CONSERVATIVE MANAGEMENT AT THIS TIME. HYPERTENSION - RESUMED HOME REGIMEN - ADDED ARB AND INCREASED DOSE OF CLONIDINE TO TID CONTINUED OTHER HOME MEDICATIONS. - ADJUST MEDS NEEDED INFLAMED STOMA - DISCUSSED WITH WOUND CARE NURSE ANTONIO - CULTURE OF THE STOMA SHOWS STAPH- CONTINUE WITH BETAMETHASONE/CLOTRIMAZOLE CREAM THIS HAS HELPED HIS STOMA HEALTH BLOOD LOSS FROM STOMA AND ANEMIA OF CHRONIC DISEASE - - RESOLVED HYPERLIPIDEMIA - THE PT IS ON PRALUENT PEN - HOLD TREATMENT WHILE IN HOSPITAL PERIPHERAL NEUROPATHY - RESTARTED GABAPENTIN DEPRESSION - RESTARTED CYMBALTA CONSTIPATION - MONITOR OUTPUT - CONTINUE WITH MIRALAX TO PREVENT CONSTIPATION FROM STOMA WHICH WOULD CAUSE FURTHER INFLAMMATION OF STOMAL SITE INSOMNIA - RESTARTED MELATONIN, AND ADDED BENADRYL DUE TO PT NOT SLEEPING WELL ON JUST THE MELATONIN GENERALIZED WEAKNESS - PT AND OT TO CONTINUE WE TRY TO IMPROVE HIS FUNCTIONING FOR SAFETY AT HOME Clinical Quality Measures DVT/VTE Risk/Contraindication: Risk Factor Score Per Nursin FEDE BUTLER MD Oct 24, 2018 08:39
[2018-10-24] MEDS ORDERED: methylPREDNISolone 40 MG/ML (Solu-MEDROL) VIAL IV SCH (09:00)
--- NOTE | 2018-10-24 09:00 | NUR ---
PT REQUESTING TO TAKE PEPCID AT HS. NON ADMINISTERED AM DOSE AND RESCHEDULED FOR HS.
[2018-10-24] MEDS: GABAPENTIN 600 MG (NEURONTIN) TAB PO SCH ×2 (09:16→21:20)
[2018-10-24] MEDS: CARVEDILOL 12.5 MG (COREG) TABLET PO SCH ×2 (09:16→21:19)
[2018-10-24] MEDS: LOSARTAN 100 MG (COZAAR) TABLET PO SCH (09:16)
[2018-10-24] MEDS: CLOPIDOGREL 75 MG (PLAVIX) TABLET PO SCH (09:16)
[2018-10-24] MEDS: POLYETHYLENE GLYCOL 17 GM (MIRALAX) PACK PO PRN (09:16)
[2018-10-24] MEDS: DULoxetine 30 MG (CYMBALTA) CAP PO SCH (09:16)
[2018-10-24] MEDS: cloNIDine 0.2 MG (CATAPRES) TAB PO SCH ×3 (09:16→21:20)
[2018-10-24] MEDS: amLODIPine 10 MG (NORVASC) TAB PO SCH (09:16)
[2018-10-24] MEDS: HYDROCHLOROTHIAZIDE 25 MG (HCTZ) TAB PO SCH (09:16)
[2018-10-24] MEDS: FUROSEMIDE 40 MG/4 ML INJ (LASIX) IVP SCH (09:16)
[2018-10-24] MEDS: MENTHOL/ZINC OXIDE (CALMOSEPTINE) 113 GM TUBE TOP SCH ×2 (09:18→21:23)
[2018-10-24] MEDS: DOCUSATE SODIUM 100 MG (COLACE) CAP PO SCH ×2 (09:43→21:19)
--- NOTE | 2018-10-24 09:50 | Diagnostic Imaging Report ---
EXAMINATION: PA and lateral chest at 0856 hours. INDICATION: Shortness of breath. FINDINGS: The cardiomegaly, sternotomy wires, and surgical clips as well as the diffuse alveolar/interstitial pulmonary infiltrates involving both lungs seen on the prior study of 10/22/2018 are again evident and not significantly changed. There is still a small amount of fluid in each lung base as well. The mediastinum is not widened. The osseous structures are intact. IMPRESSION: There is persistent involvement of both lungs by alveolar/interstitial pulmonary infiltrates. Most likely, these are due to pneumonia/atelectasis and/or pulmonary edema. A followup study would be recommended for continued evaluation. Dictated by: Dictated on workstation # [id number]
--- NOTE | 2018-10-24 10:00 | Cardiology Progress Note ---
Subjective Date Seen by Provider: Oct 24, 2018 Time Seen by Provider: 09:57 Subjective/Events-last exam patient is laying down in bed. Denied any chest pain, breathing is better. Review of Systems General: No Chills, No Night Sweats, No Fatigue, No Malaise, No Appetite, No Other HEENT: No Head Aches, No Visual Changes, No Eye Pain, No Ear Pain, No Dysphasia, No Sinus Congestion, No Post Nasal Drip, No Sore Throat, No Other Pulmonary: No Dyspnea; Cough; No Pleuritic Chest Pain, No Other Cardiovascular: No: Chest Pain, Palpitations, Orthopnea, Paroxysmal Noc. Dyspnea, Edema, Lt Headedness, Other Objective-Cardiology Exam Last Set of Vital Signs Vital Signs 10/24/18 10/24/18 05:48 06:26 Temp 97.7 Pulse 59 Resp 18 B/P (MAP) 177/81 (113) Pulse Ox 98 O2 Delivery NIV CPAP O2 Flow Rate 3.00 Capillary Refill : Less Than 3 Seconds I&O Intake and Output 10/24/18 00:00 Intake Total 2417.5 ml Output Total 3575 ml Balance -1157.5 ml Intake Oral 1680 ml IV Total 737.5 ml Output Urine Total 3475 ml Stool Total 100 ml General: Alert, Oriented X3, Cooperative HEENT: Atraumatic, PERRLA Neck: Supple Lungs: Other (DECREASED AIR MOVEMENT THROUGHOUT) Heart: Regular Rate, Normal S1, Normal S2 Abdomen: Normal Bowel Sounds, Soft Extremities: No Clubbing, No Cyanosis, No Edema, Normal Pulses, No Tende rness/Swelling Skin: No Rashes, No Breakdown, No Significant Lesion Neuro: Cranial Nerves 3-12 NL Psych/Mental Status: Mental Status NL, Mood NL Results Lab Laboratory Tests 10/24/18 04:25 A/P-Cardiology Admission Diagnosis Pneumonia Shortness of breath Coronary artery disease Hypertension Assessment/Plan Shortness of breath, improving slowly. Managed by Dr. Hutton. Hypertension, resistant, on multiple medication and receiving at this time Coreg 12.5 mg twice daily, losartan 100 mg daily, Norvasc 10 mg daily, hydrochlorothiazide 25 mg daily and clonidine 0.2 mg 3 times a day. I will continue with these medication and will consider adding hydralazine if needed in the future. I will evaluate renal arterial Doppler Pneumonia, recurrent, had MRSA in June by bronchoscopy, managed by Dr. Hutton Type II myocardial infarction, mild elevation in troponin level, probably due to respiratory failure and hypoxemia. Conservative management is recommended Coronary artery disease, history of CABG x3 done in 1999 using RODRIGEZ to LAD, vein graft to the first obtuse marginal, vein graft to the left posterolateral branch of the left circumflex artery. Last cardiac catheterization was done in November 2013 showing occluded vein graft to the left circumflex artery. Patient had 2 stents in the [place] circumflex artery using 3.516 mm proximally and 3.520 mm at the midportion Promus Premier stents, distally there was 60 percent stenosis which will be monitored. The LAD has significant disease proximally, patient has significantly tortuous thoracic and abdominal aorta. Deferred the the evaluation of the RODRIGEZ due to the use of large amount of contrast. The right coronary artery is a small none dominant artery was not even visualized during this study. Patient had another stent placed in the circumflex artery in [facility] in 2014, no recent workup for follow-up was done. continue to monitor at this time Heavily calcified thoracic and abdominal aorta. CTA done on 01/06/2014 revealed no aneurysm or occlusions or stenosis of abdominal aorta or major branches, I will evaluate renal arterial Doppler Valvular heart disease with mild aortic regurgitation, mild mitral and tricuspid regurgitation. Moderate left ventricular hypertrophy. Hyperlipidemia, continue to monitor. History of CVA. Continue to monitor. Mild carotid stenosis, nonobstructive disease bilaterally, has been followed in [facility], requesting to transfer is service back to my office. I will evaluate carotid ultrasound as an outpatient COPD/obstructive sleep apnea, Continue to monitor. History of prostate CA with questionable metastasis, patient expressed that it has been followed and managed at . He reported that it was slow growing and the recommendation was conservative management. Cauda equina syndrome, underwent surgery, patient expressed that he did not have full recovery Clinical Quality Measures DVT/VTE Risk/Contraindication: Risk Factor Score Per Nursin KIMBERLI BARRETT MD Oct 24, 2018 10:00
--- NOTE | 2018-10-24 10:08 | Physical Therapy Daily Note ---
PT Daily Note-Current Subjective Patient in bed pre tx, agrees to PT reluctantly, has no complaints of pain. Appearance Patient in bed post tx with nurse call, phone, tray, all needs met. Mental Status Patient Orientation: Person, Place, Situation Transfers Therapy Code Descriptions/Definitions Functional [place] Measure: 0=Not Assessed/NA 4=Minimal Assistance 1=Total Assistance 5=Supervision or Setup 2=Maximal Assistance 6=Modified [place] 3=Moderate Assistance 7=Complete [place] Therapy Quality Codes: 6 Independent with activity with or without an assistive device 5 Patient requires set up or clean up by helper. Patient completes activity by themselves 4 Supervision or touching assist (CGA). [place] provide cues , steadying assist 3 The helper provides less than half the effort to complete the activity 2 The helper provides more than half the effort to complete the activity 1 Dependent. The helper does all the effort to complete an activity 7 Patient refused to complete or attempt activity 9 The patient did not perform the activity before the current illness or injury 88 Not attempted due to Medical conditions or safety concerns Exercises Supine Ex: Ankle pumps, Quad Set, Glut sets, Heel Slides, Short Arc Quads, S traight leg raise, Hip abd/add Supine Reps: 15 Treatments LE exercise Assessment Current Status: Fair Progress PT Conference Coordinator Goals Conference Coordinator Goals PT Retirement Goals Time Frame: Nov 03, 2018 Transfers (B,C,W/C) (FIM): 6 Sit to Lying (QC): 6 Lying-Sitting on Side/Bed(QC): 6 Sit to Stand (QC): 6 Rollin Roll Left to Right (QC): 6 Chair/Rrv-jf[place] Xfer(QC): 6 Car Transfer (QC): 6 Does the Patient Walk: No and Walking Goal NOT indicated PT Plan Problem List Problem List: Activity Tolerance, Functional Strength, Safety, Balance, Gait, Transfer, ROM Treatment/Plan Treatment Plan: Continue Plan of Care Treatment Plan: Education, Functional Activity [place]ia, Functional Strength, Safety, Therapeutic Exercise, Transfers Treatment Duration: Nov 03, 2018 Frequency: 6 times per week Estimated Hrs Per Day: .25 hour per day Patient and/or Family Agrees t: Yes Safety Risks/Education Patient Education: Correct Positioning, Safety Issues Teaching Recipient: Patient Teaching Methods: Demonstration, Discussion Response to Teaching: Reinforcement Needed Time/GCodes Time In: 0947 Time Out: 09 Total Billed Treatment Time: 11 Total Billed Treatment 1 visit EX 11' KRTEK,AKIN PT Oct 24, 2018 10:08
--- NOTE | 2018-10-24 11:45 | Occupational Ther Daily Note ---
OT Current Status-Daily Note Mental Status/Objective Therapy Code Descriptions/Definitions Functional [place] Measure: 0=Not Assessed/NA 4=Minimal Assistance 1=Total Assistance 5=Supervision or Setup 2=Maximal Assistance 6=Modified [place] 3=Moderate Assistance 7=Complete [place] Attachments: Barrios Catheter, Oxygen (2L) Other Treatment Pt agreed to sit in recliner to eat lunch. Supine to EOB with HOB raised, completed by self. SBA using room chair to go from EOB to recliner. Pt was fatigued after transfer. After therapy, pt sitting in recliner with call light/phone in reach. All needs met in room OT Short Term Goals Short Term Goals 1=Demonstrate adherence to instructed precautions during ADL tasks. 2=Patient will verbalize/demonstrate understanding of assistive devices/modifications for ADL. 3=Patient will improve strength/tolerance for activity to enable patient to perform ADL's. OT Skilled Nursing Goals Logistics Tech Goals Time Frame: Nov 02, 2018 Grooming(FIM): 6 Bathing(FIM): 5 Upper Body Dressing(FIM): 5 Lower Body Dressing(FIM): 5 Additional Goals: 1-Demonstrate ADL Tasks, 2-Verbalize Understanding, 3- ImproveStrength/Razia 1=Demonstrate adherence to instructed precautions during ADL tasks. 2=Patient will verbalize/demonstrate understanding of assistive devices/modifications for ADL. 3=Patient will improve strength/tolerance for activity to enable patient to perform ADL's. OT Education/Plan Problem List/Assessment Assessment: Decreased Activ Tolerance, Impaired Funct Balance, Impaired Self- Care Skills Pt to benefit from skilled OT intervention for ADL training, transfers, and strengthening to increase level of independence and allow safe discharge home with spouse. Discharge Recommendations Plan/Recommendations: Continue POC Treatment Plan/Plan of Care Patient would benefit from OT for education, treatment and training to promote independence in ADL's, mobility, safety and/or upper extremity function for ADL's. Plan of Care: ADL Retraining, Functional Mobility, UE Funct Exercise/Act Frequency: 5 times per week Estimated Hrs Per Day: .25 hour per day Rehab Potential: Fair Time/GCodes Start Time: 11:25 Stop Time: 11:40 Total Time Billed (hr/min): 15 Billed Treatment Time 1 visit-FA 1 (15 min) ABIMAEL RAMOS Oct 24, 2018 11:45
[2018-10-24 12:56] VITALS: BP 142/65
[2018-10-24] MEDS: ENOXAPARIN 40 MG/0.4 ML (LOVENOX) SYR SC SCH (17:24)
[2018-10-24] MEDS: VANCOMYCIN INJECTION 2,250 MG in NS IV 500 ML 500 ML IV SCH (17:25)
[2018-10-24 18:25] VITALS: BP 147/66
[2018-10-24] MEDS: FAMOTIDINE 20 MG (PEPCID) TABLET PO SCH (21:20)
[2018-10-24] MEDS: MELATONIN 3 MG TABLET PO SCH (21:20)
[2018-10-24] MEDS: diphenhydrAMINE 25 MG TAB (BENADRYL) PO PRN (21:27)
[2018-10-25 00:51] VITALS: BP 163/68
[2018-10-25] MEDS: RT-ALBUTEROL/IPRATROPIUM 3 ML (DUONEB) VIAL INH SCH ×6 (03:44→22:47)
[2018-10-25 05:07] VITALS: BP 167/75
[2018-10-25] MEDS: methylPREDNISolone 40 MG/ML (Solu-MEDROL) VIAL IV SCH (06:06)
[2018-10-25] MEDS: POLYETHYLENE GLYCOL 17 GM (MIRALAX) PACK PO PRN (06:18)
[2018-10-25 06:19] LABS: HEMOGLOBIN 9.6 G/DL (13.3-17.7); MEAN PLATELET VOLUME 9.2 FL (7.4-10.4); RED CELL DISTRIBUTION WIDTH 16.8 % (10.0-14.5); WHITE BLOOD COUNT 8.3 10^3/uL (4.3-11.0)
[2018-10-25 06:39] LABS: ALANINE AMINOTRANSFERASE 28 U/L (0-55); ALBUMIN 3.1 GM/DL (3.2-4.5); ALKALINE PHOSPHATASE 66 U/L (40-136); BILIRUBIN,TOTAL 0.3 MG/DL (0.1-1.0); BUN/CREATININE RATIO 40; CALCIUM 8.5 MG/DL (8.5-10.1); CARBON DIOXIDE 32 MMOL/L (21-32); CHLORIDE 97 MMOL/L (98-107); CREATININE SERUM 0.81 MG/DL (0.60-1.30); GFR ESTIMATED > 60; GLUCOSE 92 MG/DL (70-105); POTASSIUM 4.4 MMOL/L (3.6-5.0); SODIUM 136 MMOL/L (135-145); TOTAL PROTEIN 5.9 GM/DL (6.4-8.2)
--- NOTE | 2018-10-25 06:57 | Pulmonary Progress Note ---
Subjective Time Seen by a Provider: 10:28 Subjective/Events-last exam No complications noted. Sepsis Event Evaluation Height, Weight, BMI Height: 5'10.00" Weight: 245lbs. 6.0oz. 111.392245iu; 35.2 BMI Method:Stated Exam Exam Vital Signs Date Time Temp Pulse Resp B/P (MAP) Pulse Ox O2 Delivery O2 Flow Rate FiO2 10/25/18 05:07 97.0 56 18 167/75 (105) 98 Nasal Cannula 2.50 10/25/18 03:45 95 NIV CPAP 2.00 10/25/18 00:51 98.0 62 20 163/68 (99) 92 Nasal Cannula 2.50 10/24/18 22:47 95 Nasal Cannula 2.00 10/24/18 21:00 Nasal Cannula 2.00 10/24/18 18:44 96 Nasal Cannula 2.00 10/24/18 18:25 97.6 62 18 147/66 (93) 99 Nasal Cannula 2.50 10/24/18 14:35 98 Nasal Cannula 2.00 10/24/18 12:56 60 142/65 (90) 96 Nasal Cannula 2.50 10/24/18 10:14 99 Nasal Cannula 2.00 10/24/18 09:00 Nasal Cannula 2.00 I & O 10/25/18 07:00 Intake Total 2180 ml Output Total 5125 ml Balance -2945 ml Height & Weight Height: 5'10.00" Weight: 245lbs. 6.0oz. 111.999712rp; 35.2 BMI Method:Stated General Appearance: No Apparent Distress, WD/WN HEENT: PERRL/EOMI, Normal ENT Inspection, Pharynx Normal Neck: Full Range of Motion, Non Tender, Supple Respiratory: Chest Non Tender, No Accessory Muscle Use, No Respiratory Distress, Crackles, Decreased Breath Sounds Cardiovascular: Regular Rate, Rhythm, No Gallop, No JVD Capillary Refill: Less Than 3 Seconds Gastrointestinal: normal bowel sounds, non tender, soft Extremity: Normal Capillary Refill, Non Tender Neurologic/Psychiatric: Alert, Oriented x3 Skin: Normal Color, Warm/Dry Lymphatic: No Adenopathy Results Lab Laboratory Tests 10/24/18 04:25 10/25/18 06:05 Assessment/Plan Assessment/Plan Pneumonia - with hx of MRSA -Currently on NC -SVNs -[place] cultures - Vanco x 14days Zosyn x 7 days -Try to arrange for out pt Vanco to complete coarse -Urine strep and legionella Ag - is negative. RLD with pulmonary fibrosis -Duoneb Q 4 Hx of diastolic cardiomyopathy with elevated BNP -Lasix -Repeat BNP NSTEMI - probably type II -Monitor - Dr. Barajas following Obesity/deconditioning LAUREN CHIN DO Oct 25, 2018 06:57
--- NOTE | 2018-10-25 07:08 | NUR ---
When RT entered the patients room he was on RA and O2 sat 74%, RT placed patient back on 2 L NC and O2 Sat 93%. Patient states that approximately 20 mins before RT entered the room he had taken his home cpap off and forgot to place the NC on.
[2018-10-25] MEDS: DOCUSATE SODIUM 100 MG (COLACE) CAP PO SCH ×2 (09:00→22:06)
[2018-10-25] MEDS: LOSARTAN 100 MG (COZAAR) TABLET PO SCH (09:22)
[2018-10-25] MEDS: GABAPENTIN 600 MG (NEURONTIN) TAB PO SCH ×2 (09:22→22:06)
[2018-10-25] MEDS: DULoxetine 30 MG (CYMBALTA) CAP PO SCH (09:22)
[2018-10-25] MEDS: HYDROCHLOROTHIAZIDE 25 MG (HCTZ) TAB PO SCH (09:22)
[2018-10-25] MEDS: cloNIDine 0.2 MG (CATAPRES) TAB PO SCH ×3 (09:22→22:06)
[2018-10-25] MEDS: amLODIPine 10 MG (NORVASC) TAB PO SCH (09:22)
[2018-10-25] MEDS: CARVEDILOL 12.5 MG (COREG) TABLET PO SCH ×2 (09:22→22:05)
[2018-10-25] MEDS: CLOPIDOGREL 75 MG (PLAVIX) TABLET PO SCH (09:22)
[2018-10-25] MEDS: FUROSEMIDE 40 MG (LASIX) TAB PO SCH (09:22)
[2018-10-25] MEDS: MENTHOL/ZINC OXIDE (CALMOSEPTINE) 113 GM TUBE TOP SCH ×2 (09:23→22:10)
[2018-10-25 09:28] VITALS: BP 119/58
--- NOTE | 2018-10-25 11:06 | Physical Therapy Daily Note ---
PT Daily Note-Current Subjective Patient agrees to PT. Mental Status Patient Orientation: Normal For Age Attachments: Oxygen, Barrios Catheter Transfers Therapy Code Descriptions/Definitions Functional [place] Measure: 0=Not Assessed/NA 4=Minimal Assistance 1=Total Assistance 5=Supervision or Setup 2=Maximal Assistance 6=Modified [place] 3=Moderate Assistance 7=Complete [place] Therapy Quality Codes: 6 Independent with activity with or without an assistive device 5 Patient requires set up or clean up by helper. Patient completes activity by themselves 4 Supervision or touching assist (CGA). [place] provide cues , steadying assist 3 The helper provides less than half the effort to complete the activity 2 The helper provides more than half the effort to complete the activity 1 Dependent. The helper does all the effort to complete an activity 7 Patient refused to complete or attempt activity 9 The patient did not perform the activity before the current illness or injury 88 Not attempted due to Medical conditions or safety concerns Exercises Supine Ex: Ankle pumps, Quad Set, Glut sets, Heel Slides, Straight leg raise, Hip abd/add Supine Reps: 15 Seated Therapy Exercises: Ankle pumps, Long arc quads, Hip flexion Seated Reps: 15 Assessment Patient tolerated treatment well and remains up in recliner with needs met. Patient reports he will dismiss to home next week. PT Senior Living Goals Completions Manager Goals PT Senior Living Goals Time Frame: Nov 03, 2018 Transfers (B,C,W/C) (FIM): 6 Sit to Lying (QC): 6 Lying-Sitting on Side/Bed(QC): 6 Sit to Stand (QC): 6 Rollin Roll Left to Right (QC): 6 Chair/Gfm-ox-Yltzs Xfer(QC): 6 Car Transfer (QC): 6 Does the Patient Walk: No and Walking Goal NOT indicated PT Plan Treatment/Plan Treatment Plan: Continue Plan of Care Treatment Plan: Education, Functional Activity Razia, Functional Strength, Safety, Therapeutic Exercise, Transfers Treatment Duration: Nov 03, 2018 Frequency: 6 times per week Estimated Hrs Per Day: .25 hour per day Patient and/or Family Agrees t: Yes Time/GCodes Time In: 1000 Time Out: 1023 Total Billed Treatment Time: 23 Total Billed Treatment 1 visit EX x 2 23 min DELANO MONTGOMERY PT Oct 25, 2018 11:06
--- NOTE | 2018-10-25 12:58 | Cardiology Progress Note ---
Subjective Date Seen by Provider: Oct 25, 2018 Time Seen by Provider: 12:57 Subjective/Events-last exam Patient is sitting in a chair, feeling better. Still having mild dyspnea Review of Systems General: No Chills, No Night Sweats, No Fatigue, No Malaise, No Appetite, No Other HEENT: No Head Aches, No Visual Changes, No Eye Pain, No Ear Pain, No Dysphasia, No Sinus Congestion, No Post Nasal Drip, No Sore Throat, No Other Pulmonary: Dyspnea, Cough; No Pleuritic Chest Pain, No Other Cardiovascular: Edema; No: Chest Pain, Palpitations, Orthopnea, Paroxysmal Noc. Dyspnea, Lt Headedness, Other Objective-Cardiology Exam Last Set of Vital Signs Vital Signs 10/25/18 10/25/18 09:28 10:34 Temp 97.0 Pulse 62 Resp 20 B/P (MAP) 119/58 (78) Pulse Ox 95 O2 Delivery Nasal Cannula O2 Flow Rate 2.00 Capillary Refill : Less Than 3 Seconds I&O Intake and Output 10/25/18 00:00 Intake Total 2080 ml Output Total 5700 ml Balance -3620 ml Intake Oral 2080 ml Output Urine Total 5700 ml # Bowel Movements 2 General: Alert, Oriented X3, Cooperative HEENT: Atraumatic, PERRLA Neck: Supple Lungs: Other (DECREASED AIR MOVEMENT THROUGHOUT) Heart: Regular Rate, Normal S1, Normal S2 Abdomen: Normal Bowel Sounds, Soft Extremities: No Clubbing, No Cyanosis, No Edema, Normal Pulses, No Tenderness/Swelling Skin: No Rashes, No Breakdown, No Significant Lesion Neuro: Cranial Nerves 3-12 NL Psych/Mental Status: Mental Status NL, Mood NL Results Lab Laboratory Tests 10/25/18 06:05 A/P-Cardiology Admission Diagnosis Pneumonia Shortness of breath Coronary artery disease Hypertension Assessment/Plan Shortness of breath, improving slowly. Managed by Dr. Hutton. Hypertension, resistant, on multiple medication and receiving at this time Coreg 12.5 mg twice daily, losartan 100 mg daily, Norvasc 10 mg daily, hydrochlorothiazide 25 mg daily and clonidine 0.2 mg 3 times a day. Difficult to control while on prednisone. I will evaluate renal arterial Doppler study Pneumonia, recurrent, had MRSA in June by bronchoscopy, managed by Dr. Hutton Type II myocardial infarction, mild elevation in troponin level, probably due to respiratory failure and hypoxemia. Conservative management is recommended Coronary artery disease, history of CABG x3 done in 1999 using RODRIGEZ to LAD, vein graft to the first obtuse marginal, vein graft to the left posterolateral branch of the left circumflex artery. Last cardiac catheterization was done in November 2013 showing occluded vein graft to the left circumflex artery. Patient had 2 stents in the [place] circumflex artery using 3.516 mm proximally and 3.520 mm at the midportion Promus Premier stents, distally there was 60 percent stenosis which will be monitored. The LAD has significant disease proximally, patient has significantly tortuous thoracic and abdominal aorta. Deferred the the evaluation of the RODRIGEZ due to the use of large amount of contrast. The right coronary artery is a small none dominant artery was not even visualized during this study. Patient had another stent placed in the circumflex artery in [facility] in 2014, no recent workup for follow-up was done. continue to monitor at this time Heavily calcified thoracic and abdominal aorta. CTA done on 01/06/2014 revealed no aneurysm or occlusions or stenosis of abdominal aorta or major branches, I will evaluate renal arterial Doppler Valvular heart disease with mild aortic regurgitation, mild mitral and tricuspid regurgitation. Moderate left ventricular hypertrophy. Hyperlipidemia, continue to monitor. History of CVA. Continue to monitor. Mild carotid stenosis, nonobstructive disease bilaterally, has been followed in [facility], requesting to transfer is service back to my office. I will evaluate carotid ultrasound as an outpatient COPD/obstructive sleep apnea, Continue to monitor. History of prostate CA with questionable metastasis, patient expressed that it has been followed and managed at . He reported that it was slow growing and the recommendation was conservative management. Cauda equina syndrome, underwent surgery, patient expressed that he did not have full recovery Clinical Quality Measures DVT/VTE Risk/Contraindication: Risk Factor Score Per Nursin KIMBERLI BARRETT MD Oct 25, 2018 12:58
[2018-10-25 14:40] VITALS: BP 117/58
--- NOTE | 2018-10-25 14:41 | Occupational Ther Daily Note ---
OT Current Status-Daily Note Subjective Pt alert, sitting in recliner. present in room. Pt agrees to therapy. No c/o pain. Mental Status/Objective Patient Orientation: Person, Place, Time, Situation Therapy Code Descriptions/Definitions Functional [place] Measure: 0=Not Assessed/NA 4=Minimal Assistance 1=Total Assistance 5=Supervision or Setup 2=Maximal Assistance 6=Modified [place] 3=Moderate Assistance 7=Complete [place] Attachments: Barrios Catheter, IV, Oxygen ADL-Treatment Pt states that he has difficulty with donning/doffing lower body clothing. MERCEDES educated pt and on lower body AE. Pt able to demonstrate understanding of sock aide and dressing stick to don/doff socks. Discussed how to use dressing stick and long handle shoehorn to don pants and shoes. After therapy, pt sitting in recliner with call light/phone in reach. All needs met in room. Therapy Code Descriptions/Definitions Functional [place] Measure: 0=Not Assessed/NA 4=Minimal Assistance 1=Total Assistance 5=Supervision or Setup 2=Maximal Assistance 6=Modified [place] 3=Moderate Assistance 7=Complete [place] Therapy Quality Codes: 6 Independent with activity with or without an assistive device 5 Patient requires set up or clean up by helper. Patient completes activity by themselves 4 Supervision or touching assist (CGA). [place] provide cues , steadying assist 3 The helper provides less than half the effort to complete the activity 2 The helper provides more than half the effort to complete the activity 1 Dependent. The helper does all the effort to complete an activity 7 Patient refused to complete or attempt activity 9 The patient did not perform the activity before the current illness or injury 88 Not attempted due to Medical conditions or safety concerns On/Off Footwear (QC): 5 Education OT Patient Education: Modified ADL techniques, Use of adapted equipment Teaching Recipient: Patient, Family Teaching Methods: Demonstration, Discussion Response to Teaching: Verbalize Understanding, Return Demonstration, Reinforcement Needed OT Short Term Goals Short Term Goals 1=Demonstrate adherence to instructed precautions during ADL tasks. 2=Patient will verbalize/demonstrate understanding of assistive devices/modifications for ADL. 3=Patient will improve strength/tolerance for activity to enable patient to perform ADL's. OT Senior Care Goals Senior Care Goals Time Frame: Nov 02, 2018 Groomin Oral Hygiene (QC): 6 Bathing(FIM): 5 Shower/Bathe Self (QC): 4 Upper Body Dressing(FIM): 5 Upper Body Dressing (QC): 5 Lower Body Dressing(FIM): 5 Lower Body Dressing (QC): 4 On/Off Footwear (QC): 5 Additional Goals: 1-Demonstrate ADL Tasks, 2-Verbalize Understanding, 3- ImproveStrength/Razia 1=Demonstrate adherence to instructed precautions during ADL tasks. 2=Patient will verbalize/demonstrate understanding of assistive devices/modifications for ADL. 3=Patient will improve strength/tolerance for activity to enable patient to perform ADL's. OT Education/Plan Problem List/Assessment Assessment: Decreased Activ Tolerance, Decreased UE Strength, Impaired Self- Care Skills Pt to benefit from skilled OT intervention for ADL training, transfers, and strengthening to increase level of independence and allow safe discharge home with spouse. Discharge Recommendations Plan/Recommendations: Continue POC Treatment Plan/Plan of Care Patient would benefit from OT for education, treatment and training to promote independence in ADL's, mobility, safety and/or upper extremity function for ADL's. Plan of Care: ADL Retraining, Functional Mobility, UE Funct Exercise/Act Frequency: 5 times per week Estimated Hrs Per Day: .25 hour per day Rehab Potential: Fair Time/GCodes Start Time: 14:10 Stop Time: 14:30 Total Time Billed (hr/min): 20 Billed Treatment Time 1 visit-ADL 1 (20 min) ABIMAEL RAMOS Oct 25, 2018 14:41
[2018-10-25] MEDS ORDERED: TROUGH ORDER-PHARMACY XX NR (16:30)
[2018-10-25 17:55] VITALS: BP 134/63
[2018-10-25] MEDS: VANCOMYCIN INJECTION 2,250 MG in NS IV 500 ML 500 ML IV SCH (18:00)
[2018-10-25] MEDS: ENOXAPARIN 40 MG/0.4 ML (LOVENOX) SYR SC SCH (18:00)
[2018-10-25] MEDS: FAMOTIDINE 20 MG (PEPCID) TABLET PO SCH (22:05)
[2018-10-25] MEDS: MELATONIN 3 MG TABLET PO SCH (22:06)
[2018-10-26] MEDS: RT-ALBUTEROL/IPRATROPIUM 3 ML (DUONEB) VIAL INH SCH ×4 (02:50→19:37)
[2018-10-26 06:09] VITALS: BP 103/58
[2018-10-26] MEDS: POLYETHYLENE GLYCOL 17 GM (MIRALAX) PACK PO PRN (06:16)
[2018-10-26] MEDS: predniSONE 20 MG TAB PO SCH (06:16)
--- NOTE | 2018-10-26 07:47 | NUR ---
VANCOMYCIN DOSING TROUGH LEVEL 15.1 - CONTINUE CURRENT DOSE OF VANC 2250 MG Q24H
--- NOTE | 2018-10-26 08:56 | Occ Therapy Progress Note ---
Therapy Progress Note Pt declined therapy at this time due to fatigue. Pt fell asleep when speaking to MERCEDES. Will attempt later time. ABIMAEL RAMOS Oct 26, 2018 08:55
[2018-10-26] MEDS: DOCUSATE SODIUM 100 MG (COLACE) CAP PO SCH ×2 (09:36→21:01)
[2018-10-26] MEDS: CARVEDILOL 12.5 MG (COREG) TABLET PO SCH ×2 (09:36→20:59)
[2018-10-26] MEDS: LOSARTAN 100 MG (COZAAR) TABLET PO SCH (09:36)
[2018-10-26] MEDS: DULoxetine 30 MG (CYMBALTA) CAP PO SCH (09:36)
--- NOTE | 2018-10-26 09:36 | Diagnostic Imaging Report ---
INDICATION: Shortness of air and pneumonia. TIME OF EXAM: 9:14 AM CORRELATION is made with prior study from 10/24/2018. FINDINGS: The heart size is stable. There are changes of median sternotomy and CABG. Bilateral infiltrates are similar to prior exam. No significant effusion is seen. No pneumothorax. Left PICC line has tip overlying the SVC. IMPRESSION: Stable bilateral pulmonary infiltrates when compared with examination from 2 days earlier. Dictated by: Dictated on workstation # [id number]
[2018-10-26] MEDS: HYDROCHLOROTHIAZIDE 25 MG (HCTZ) TAB PO SCH (09:37)
[2018-10-26] MEDS: FUROSEMIDE 40 MG (LASIX) TAB PO SCH (09:37)
[2018-10-26] MEDS: GABAPENTIN 600 MG (NEURONTIN) TAB PO SCH ×2 (09:37→21:04)
[2018-10-26] MEDS: cloNIDine 0.2 MG (CATAPRES) TAB PO SCH ×2 (09:37→20:57)
[2018-10-26] MEDS: CLOPIDOGREL 75 MG (PLAVIX) TABLET PO SCH (10:25)
[2018-10-26] MEDS: amLODIPine 10 MG (NORVASC) TAB PO SCH (10:25)
--- NOTE | 2018-10-26 10:28 | Pulmonary Progress Note ---
Subjective Time Seen by a Provider: 10:28 Subjective/Events-last exam Pt continues to improved. Sepsis Event Evaluation Height, Weight, BMI Height: 5'10.00" Weight: 245lbs. 6.0oz. 111.878513fj; 35.2 BMI Method:Stated Exam Exam Vital Signs Date Time Temp Pulse Resp B/P (MAP) Pulse Ox O2 Delivery O2 Flow Rate FiO2 10/26/18 07:20 93 Nasal Cannula 1.00 10/26/18 06:09 98.0 60 20 103/58 (73) 95 Nasal Cannula 2.50 10/26/18 02:51 94 Nasal Cannula 2.00 10/25/18 22:48 98 Nasal Cannula 2.00 10/25/18 21:30 Nasal Cannula 2.00 10/25/18 19:12 98 Nasal Cannula 2.00 10/25/18 17:55 75 20 134/63 (86) 96 Nasal Cannula 4.00 10/25/18 14:47 93 Nasal Cannula 2.00 10/25/18 14:40 63 117/58 (77) 96 Nasal Cannula 2.50 10/25/18 10:34 95 Nasal Cannula 2.00 I & O 10/26/18 07:00 Intake Total 2380 ml Output Total 3725 ml Balance -1345 ml Height & Weight Height: 5'10.00" Weight: 245lbs. 6.0oz. 111.296522kv; 35.2 BMI Method:Stated General Appearance: No Apparent Distress, WD/WN HEENT: PERRL/EOMI, Normal ENT Inspection, Pharynx Normal Neck: Full Range of Motion, Non Tender, Supple Respiratory: Chest Non Tender, No Accessory Muscle Use, No Respiratory Distress, Crackles, Decreased Breath Sounds Cardiovascular: Regular Rate, Rhythm, No Gallop, No JVD Capillary Refill: Less Than 3 Seconds Gastrointestinal: normal bowel sounds, non tender, soft Extremity: Normal Capillary Refill, Non Tender Neurologic/Psychiatric: Alert, Oriented x3 Skin: Normal Color, Warm/Dry Lymphatic: No Adenopathy Results Lab Laboratory Tests 10/25/18 06:05 Assessment/Plan Assessment/Plan Pneumonia - with hx of MRSA -Currently on NC -SVNs -[facility] cultures - Vanco x 14days Zosyn x 7 days -Urine strep and legionella Ag - is negative. RLD with pulmonary fibrosis -Duoneb Q 4 Hx of diastolic cardiomyopathy with elevated BNP -Lasix NSTEMI - probably type II -Monitor - Dr. Barajas following Obesity/deconditioning Plan is for pt to continue Vancomycin until Monday then discharge probably Monday. I am going to sign off please call with any questions. LAUREN CHIN DO Oct 26, 2018 10:28
--- NOTE | 2018-10-26 11:17 | Cardiology Progress Note ---
Cardiology SOAP Progress Note Subjective: Mild shortness of breath. Objective: I&O/Vital Signs 10/26/18 10/26/18 10/26/18 10/26/18 02:51 06:09 07:20 10:51 Temp 98.0 Pulse 60 Resp 20 B/P (MAP) 103/58 (73) Pulse Ox 94 95 93 96 O2 Delivery Nasal Cannula Nasal Cannula Nasal Cannula Nasal Cannula O2 Flow Rate 2.00 2.50 1.00 2.00 10/26/18 00:00 Intake Total 1980 ml Output Total 3625 ml Balance -1645 ml Weight (Pounds): 245 Weight (Ounces): 6.0 Weight (Calculated Kilograms): 111.955420 Constitutional: AAO x 3 Respiratory: chest is bilaterally symmetric, lungs clear to auscultation Cardiovascular: regular rate-rhythm, S1 and S2 Gastrointestional: soft, round, audible bowel sounds Extremities: normal range of motion, non-tender, normal inspection, no lower extremity edema bilateral Neurologic/Psychiatric: no motor/sensory deficits, alert, normal mood/affect, oriented x 3 Skin: normal color, warm/dry Results/Procedures: Labs Laboratory Tests 10/25/18 17:00: Vancomycin Level Trough 15.1 A/P: Assessment/Dx: Pneumonia Shortness of breath Coronary artery disease Hypertension Plan: Shortness of breath, improving slowly. Managed by Dr. Hutton. Hypertension, resistant, on multiple medication and receiving at this time Coreg 12.5 mg twice daily, losartan 100 mg daily, Norvasc 10 mg daily, hydrochlorothiazide 25 mg daily and clonidine 0.2 mg 3 times a day. Difficult to control while on prednisone. I will evaluate renal arterial Doppler study Pneumonia, recurrent, had MRSA in June by bronchoscopy, managed by Dr. Hutton Type II myocardial infarction, mild elevation in troponin level, probably due to respiratory failure and hypoxemia. Conservative management is recommended Coronary artery disease, history of CABG x3 done in 1999 using RODRIGEZ to LAD, vein graft to the first obtuse marginal, vein graft to the left posterolateral branch of the left circumflex artery. Last cardiac catheterization was done in November 2013 showing occluded vein graft to the left circumflex artery. Patient had 2 stents in the [place] circumflex artery using 3.516 mm proximally and 3.520 mm at the midportion Promus Premier stents, distally there was 60 percent stenosis which will be monitored. The LAD has significant disease proximally, patient has significantly tortuous thoracic and abdominal aorta. Deferred the the evaluation of the RODRIGEZ due to the use of large amount of contrast. The right coronary artery is a small none dominant artery was not even visualized during this study. Patient had another stent placed in the circumflex artery in [facility] in 2014, no recent workup for follow-up was done. continue to monitor at this time Heavily calcified thoracic and abdominal aorta. CTA done on 01/06/2014 revealed no aneurysm or occlusions or stenosis of abdominal aorta or major branches, I will evaluate renal arterial Doppler Valvular heart disease with mild aortic regurgitation, mild mitral and tricuspid regurgitation. Moderate left ventricular hypertrophy. Hyperlipidemia, continue to monitor. History of CVA. Continue to monitor. Mild carotid stenosis, nonobstructive disease bilaterally, has been followed in [facility], requesting to transfer is service back to my office. I will evaluate carotid ultrasound as an outpatient COPD/obstructive sleep apnea, Continue to monitor. History of prostate CA with questionable metastasis, patient expressed that it has been followed and managed at . He reported that it was slow growing and the recommendation was conservative management. Cauda equina syndrome, underwent surgery, patient expressed that he did not have full recovery Thank you for your consultation. Please call me if you have any questions. Lefty Su MD, FACP, FACC, FSCAI, FHRS, CCDS Interventional Cardiology Cardiac Electrophysiology Vascular Medicine and Endovascular Interventions Neli SU MD Oct 26, 2018 11:17
--- NOTE | 2018-10-26 11:23 | Progress Note ---
Subjective Subjective Date Seen by Provider: Oct 25, 2018 Time Seen by Provider: 09:10 LATE ENTRY NOTE PT SEE ON 10/25/18 - HE REPORTS THAT HE FEELS LIGHT THE LOW AIR LOSS BED HAS MADE A DIFFERENCE IN HIS COMFORT HE DENIES ANY NEW CHANGES IN HIS BREATHING HE DENIES ANY ABDOMINAL PAIN THAT IS CHANGED. JOHANA - WOUND CARE NURSE - STATES THAT THEY HAVE BEEN ABLE TO IMPROVE HIS OSTOMY CARE WITH THE NEW OSTOMY SUPPLIES THEY HAVE BEEN USING Review of Systems General: Fatigue HEENT: No Head Aches Pulmonary: Dyspnea, Cough Cardiovascular: No: Chest Pain Gastrointestinal: No: Nausea, Abdominal Pain Genitourinary: Other (SUPRAPUBIC NAPIER IN PLACE) Neurological: Weakness; No: Confusion Objective Exam Vital Signs Vital Signs - First Documented 10/20/18 10/20/18 10/20/18 01:00 02:05 05:04 Temp 96.7 Pulse 54 Resp 20 B/P (MAP) 184/82 (116) Pulse Ox 94 O2 Delivery Nasal Cannula O2 Flow Rate 5.00 Capillary Refill : Less Than 3 Seconds General Appearance: No Apparent Distress, WD/WN HEENT: PERRL/EOMI, Normal ENT Inspection, Pharynx Normal Neck: Full Range of Motion, Non Tender, Supple Respiratory: Chest Non Tender, Crackles, Decreased Breath Sounds Cardiovascular: Regular Rate, Rhythm Gastrointestinal: Normal Bowel Sounds, Soft, Other (OSTOMY IN LEFT LOWER ABDOMEN WITH LARGE HERNIA THROUGH ABDOMINAL WALL AT OSTOMY SITE) Extremity: Normal Capillary Refill, Non Tender Neurologic/Psychiatric: Alert, Oriented x3, Normal Mood/Affect Skin: Normal Color, Warm/Dry Lymphatic: No Adenopathy Results Lab Laboratory Tests 10/25/18 17:00: Vancomycin Level Trough 15.1 Assessment/Plan Assessment/Plan Admission Status: Other (Swing Bed) Assessment and Plan PNEUMONIA - MRSA PNEUMONIA HX OF MRSA IN SPUTUM NON-ST MYOCARDIAL INFARCTION - SUSPECT DUE TO RESPIRATORY DISTRESS HYPERTENSION CORONARY ARTERY DISEASE INFLAMED STOMA BLOOD LOSS FROM STOMA ANEMIA OF CHRONIC DISEASE HYPERLIPIDEMIA PERIPHERAL NEUROPATHY DEPRESSION CONSTIPATION INSOMNIA GENERALIZED WEAKNESS HX OF TOBACCOISM PNEUMONIA - MRSA PNEUMONIA -PT ON VANCOMYCIN, ZOSYN, CONTINUE WITH THIS TREATMENT,DISCUSSED WITH DR. CHIN - CONTINUE WITH ZOSYN FINISHED ON 10/23/18 AND CONTINUE WITH VANCOMYCIN U NTIL 10/29/18 HX OF MRSA IN SPUTUM - SEE ABOVE NON-ST MYOCARDIAL INFARCTION - SUSPECT DUE TO RESPIRATORY DISTRESS - WITH KNOWN HX OF CORONARY ARTERY DISEASE - DEFER TO DR. BARRETT - MEANWHILE CONTINUE WITH HOME REGIMEN. - AGREE WITH CONSERVATIVE MANAGEMENT AT THIS TIME. HYPERTENSION - RESUMED HOME REGIMEN - ADDED ARB AND INCREASED DOSE OF CLONIDINE TO TID CONTINUED OTHER HOME MEDICATIONS. - ADJUST MEDS NEEDED INFLAMED STOMA - DISCUSSED WITH WOUND CARE NURSE ANTONIO - CULTURE OF THE STOMA SHOWS STAPH- CONTINUE WITH BETAMETHASONE/CLOTRIMAZOLE CREAM THIS HAS HELPED HIS STOMA HEALTH BLOOD LOSS FROM STOMA AND ANEMIA OF CHRONIC DISEASE - - RESOLVED HYPERLIPIDEMIA - THE PT IS ON PRALUENT PEN - HOLD TREATMENT WHILE IN HOSPITAL PERIPHERAL NEUROPATHY - RESTARTED GABAPENTIN DEPRESSION - RESTARTED CYMBALTA CONSTIPATION - MONITOR OUTPUT - CONTINUE WITH MIRALAX TO PREVENT CONSTIPATION FROM STOMA WHICH WOULD CAUSE FURTHER INFLAMMATION OF STOMAL SITE INSOMNIA - RESTARTED MELATONIN, AND ADDED BENADRYL DUE TO PT NOT SLEEPING WELL ON JUST THE MELATONIN GENERALIZED WEAKNESS - PT AND OT TO CONTINUE WE TRY TO IMPROVE HIS FUNCTIONING FOR SAFETY AT HOME Problems: (1) MRSA pneumonia Qualifiers: Qualified Codes: J15.212 - Pneumonia due to methicillin resistant Staphylococcus aureus (2) CAD (coronary artery disease) Qualifiers: Qualified Codes: I25.10 - Atherosclerotic heart disease of [place] coronary artery without angina pectoris Clinical Quality Measures DVT/VTE Risk/Contraindication: Risk Factor Score Per Nursin FEDE BUTLER MD Oct 26, 2018 11:23
--- NOTE | 2018-10-26 11:26 | Progress Note ---
Subjective Subjective Date Seen by Provider: Oct 26, 2018 Time Seen by Provider: 10:00 PT REPORTS THAT HE IS QUITE FATIGUED TODAY- HE NOTES THAT HIS BLOOD PRESSURE HAS CONTINUED TO BE LOW AND HE FEELS LIKE THIS IS CONTRIBUTING TO HIS FATIGUE. HE REPORTS THAT HE IS SLEEPING BETTER WITH THE LOW AIR LOSS MATTRESS. HE REPORTS THAT DR. CHIN HAS BEEN IN TO SEE HIM AND INDICATED THAT HE WOULD SIGN-OFF AND SEE HIM AN OUTPATIENT. Review of Systems General: Fatigue HEENT: No Head Aches Pulmonary: Dyspnea, Cough Cardiovascular: No: Chest Pain Gastrointestinal: No: Nausea, Abdominal Pain Genitourinary: Other (SUPRAPUBIC NAPIER IN PLACE) Neurological: Weakness; No: Confusion All Other Systems Reviewed All Other Systems Reviewed: Yes Objective Exam Vital Signs Vital Signs - First Documented 10/20/18 10/20/18 10/20/18 01:00 02:05 05:04 Temp 96.7 Pulse 54 Resp 20 B/P (MAP) 184/82 (116) Pulse Ox 94 O2 Delivery Nasal Cannula O2 Flow Rate 5.00 Capillary Refill : Less Than 3 Seconds General Appearance: No Apparent Distress, WD/WN HEENT: PERRL/EOMI, Normal ENT Inspection, Pharynx Normal Neck: Full Range of Motion, Non Tender, Supple Respiratory: Chest Non Tender, Crackles, Decreased Breath Sounds Cardiovascular: Regular Rate, Rhythm Gastrointestinal: Normal Bowel Sounds, Soft, Other (OSTOMY IN LEFT LOWER ABDOMEN WITH LARGE HERNIA THROUGH ABDOMINAL WALL AT OSTOMY SITE) Extremity: Normal Capillary Refill, Non Tender Neurologic/Psychiatric: Alert, Oriented x3, Normal Mood/Affect Skin: Normal Color, Warm/Dry Lymphatic: No Adenopathy Results Lab Laboratory Tests 10/25/18 17:00: Vancomycin Level Trough 15.1 Assessment/Plan Assessment/Plan Admission Status: Other (Swing Bed) Assessment and Plan PNEUMONIA - MRSA PNEUMONIA HX OF MRSA IN SPUTUM NON-ST MYOCARDIAL INFARCTION - SUSPECT DUE TO RESPIRATORY DISTRESS HYPERTENSION CORONARY ARTERY DISEASE INFLAMED STOMA BLOOD LOSS FROM STOMA ANEMIA OF CHRONIC DISEASE HYPERLIPIDEMIA PERIPHERAL NEUROPATHY DEPRESSION CONSTIPATION INSOMNIA GENERALIZED WEAKNESS HX OF TOBACCOISM PNEUMONIA - MRSA PNEUMONIA -PT ON VANCOMYCIN, ZOSYN, CONTINUE WITH THIS TREATMENT,DISCUSSED WITH DR. CHIN - CONTINUE WITH ZOSYN FINISHED ON 10/23/18 AND CONTINUE WITH VANCOMYCIN UNTIL 10/29/18 HX OF MRSA IN SPUTUM - SEE ABOVE NON-ST MYOCARDIAL INFARCTION - SUSPECT DUE TO RESPIRATORY DISTRESS - WITH KNOWN HX OF CORONARY ARTERY DISEASE - DEFER TO DR. BARRETT - MEANWHILE CONTINUE WITH HOME REGIMEN. - AGREE WITH CONSERVATIVE MANAGEMENT AT THIS TIME. HYPERTENSION - RESUMED HOME REGIMEN - ADDED ARB AND DECREASE OF CLONIDINE TO BID HIS BLOOD PRESSURE HAS ACUTELY DECREASED WITH THE STOPPING OF THE SOLUMEDROL - CONTINUE WITH OTHER MEDICATIONS ORDERED. - WILL CONSIDER FURTHER DECREASE IN THE DOSE OF CLONIDINE TO 0.1MG BID IF THE BLOOD PRESSURE CONTINUES TO DECLINE. - WE WILL NEED TO WATCH THIS BP CLOSELY AND ADJUST MEDS NEEDED INFLAMED STOMA - DISCUSSED WITH WOUND CARE NURSE ANTONIO - CULTURE OF THE STOMA SHOWS STAPH- CONTINUE WITH BETAMETHASONE/CLOTRIMAZOLE CREAM THIS HAS HELPED HIS STOMA HEALTH BLOOD LOSS FROM STOMA AND ANEMIA OF CHRONIC DISEASE - - RESOLVED HYPERLIPIDEMIA - THE PT IS ON PRALUENT PEN - HOLD TREATMENT WHILE IN HOSPITAL PERIPHERAL NEUROPATHY - RESTARTED GABAPENTIN DEPRESSION - RESTARTED CYMBALTA CONSTIPATION - MONITOR OUTPUT - CONTINUE WITH MIRALAX TO PREVENT CONSTIPATION FROM STOMA WHICH WOULD CAUSE FURTHER INFLAMMATION OF STOMAL SITE INSOMNIA - RESTARTED MELATONIN, AND ADDED BENADRYL DUE TO PT NOT SLEEPING WELL ON JUST THE MELATONIN GENERALIZED WEAKNESS - PT AND OT TO CONTINUE WE TRY TO IMPROVE HIS FUNCTIONING FOR SAFETY AT HOME Problems: (1) MRSA pneumonia Qualifiers: Qualified Codes: J15.212 - Pneumonia due to methicillin resistant Staphylococcus aureus (2) CAD (coronary artery disease) Qualifiers: Qualified Codes: I25.10 - Atherosclerotic heart disease of [place] coronary artery without angina pectoris Clinical Quality Measures DVT/VTE Risk/Contraindication: Risk Factor Score Per Nursin FEDE BUTLER MD Oct 26, 2018 11:26
--- NOTE | 2018-10-26 11:39 | Occupational Ther Daily Note ---
OT Current Status-Daily Note Subjective Pt alert, lying in bed. Pt agrees to therapy. No c/o pain at this time. Mental Status/Objective Patient Orientation: Person, Place, Time, Situation Therapy Code Descriptions/Definitions Functional [place] Measure: 0=Not Assessed/NA 4=Minimal Assistance 1=Total Assistance 5=Supervision or Setup 2=Maximal Assistance 6=Modified [place] 3=Moderate Assistance 7=Complete [place] Attachments: Barrios Catheter, IV, Oxygen ADL-Treatment Mod I for supine to sitting using HOB raised and bedrails. Given AE to don/doff socks, pt completed independently. SBA while pt used furniture to transfer from bed to room chair. Pt educated on using dressing stick to don/doff pants over feet. Pt completed with supervision then declined to hike pants over hips. Pt declined completing bathing at this time stating nrsg helps him was up. After therapy, pt sitting in recliner with call light/phone in reach. All needs met in room. Therapy Code Descriptions/Definitions Functional [place] Measure: 0=Not Assessed/NA 4=Minimal Assistance 1=Total Assistance 5=Supervision or Setup 2=Maximal Assistance 6=Modified [place] 3=Moderate Assistance 7=Complete [place] Therapy Quality Codes: 6 Independent with activity with or without an assistive device 5 Patient requires set up or clean up by helper. Patient completes activity by themselves 4 Supervision or touching assist (CGA). [place] provide cues , steadying as sist 3 The helper provides less than half the effort to complete the activity 2 The helper provides more than half the effort to complete the activity 1 Dependent. The helper does all the effort to complete an activity 7 Patient refused to complete or attempt activity 9 The patient did not perform the activity before the current illness or injury 88 Not attempted due to Medical conditions or safety concerns On/Off Footwear (QC): 6 OT Short Term Goals Short Term Goals 1=Demonstrate adherence to instructed precautions during ADL tasks. 2=Patient will verbalize/demonstrate understanding of assistive devices/modifications for ADL. 3=Patient will improve strength/tolerance for activity to enable patient to perform ADL's. OT Care Home Goals Soldering Machine Feeder Goals Time Frame: Nov 02, 2018 Groomin Oral Hygiene (QC): 6 Bathing(FIM): 5 Shower/Bathe Self (QC): 4 Upper Body Dressing(FIM): 5 Upper Body Dressing (QC): 5 Lower Body Dressing(FIM): 5 Lower Body Dressing (QC): 4 On/Off Footwear (QC): 5 Additional Goals: 1-Demonstrate ADL Tasks, 2-Verbalize Understanding, 3- ImproveStrength/Razia 1=Demonstrate adherence to instructed precautions during ADL tasks. 2=Patient will verbalize/demonstrate understanding of assistive devices/modifications for ADL. 3=Patient will improve strength/tolerance for activity to enable patient to perform ADL's. OT Education/Plan Problem List/Assessment Assessment: Decreased Activ Tolerance, Impaired Self-Care Skills Pt to benefit from skilled OT intervention for ADL training, transfers, and strengthening to increase level of independence and allow safe discharge home with spouse. Discharge Recommendations Plan/Recommendations: Continue POC Treatment Plan/Plan of Care Patient would benefit from OT for education, treatment and training to promote independence in ADL's, mobility, safety and/or upper extremity function for ADL's. Plan of Care: ADL Retraining, Functional Mobility, UE Funct Exercise/Act Frequency: 5 times per week Estimated Hrs Per Day: .25 hour per day Rehab Potential: Fair Time/GCodes Start Time: 11:05 Stop Time: 11:30 Total Time Billed (hr/min): 25 Billed Treatment Time 1 visit-ADL 2 (25 min) ABIMAEL RAMOS Oct 26, 2018 11:39
[2018-10-26] MEDS: MENTHOL/ZINC OXIDE (CALMOSEPTINE) 113 GM TUBE TOP SCH ×2 (12:08→21:01)
--- NOTE | 2018-10-26 13:54 | Physical Therapy Progress Note ---
Therapy Progress Note Patient declined PT secondary to vomiting and overall feeling ill. PT to resume in a.m. 1 ref ([id number]) DELANO MONTGOMERY PT Oct 26, 2018 13:54
--- NOTE | 2018-10-26 16:44 | NUR ---
CM/SS, respond to request from patient/spouse to discuss discharge planning. PLAN: Patient and spouse desire for him to return home at discharge if possible. HHC: Patient agrees to participate in HHC for RN, PT, OT, and also bath aid. Carding Machine Operator did check with [facility] and bath aid is available up to 3 times weekly. PRIVATE PAY SERVICES: Provided Caregiver List and they will explore agency staff to assist with bathing especially once HHC has terminated. SNF: Discussed for maximizing patient strength and stamina, but he will likely return home. DME: [facility] and [facility]. He also has colostomy and suprapubic catheter and orders his own supplies from [employer]. He has a motorized wheelchair, they intend to purchase a lift chair for patient from [employer] in [place]. Patient and spouse have been managing at home, spouse reports he has been ill since February of this year. They indicate he was managing his own colostomy until his illness overcame him and this is a current concern as well as his shower routine. They do not have a roll in shower, it is a step in model. They inquired about assisted living options, they really want to continue at home as long as possible. Provided list of local facilities and encouraged them to tour while they have the time to do so and it is not a crisis move. They have POA for each other and a Trust for assets. Will followup Monday on patient's status and overall discharge plans.
[2018-10-26] MEDS: VANCOMYCIN INJECTION 2,250 MG in NS IV 500 ML 500 ML IV SCH (17:50)
[2018-10-26] MEDS: ENOXAPARIN 40 MG/0.4 ML (LOVENOX) SYR SC SCH (17:50)
[2018-10-26 18:45] VITALS: BP 119/59
[2018-10-26] MEDS: FAMOTIDINE 20 MG (PEPCID) TABLET PO SCH (20:57)
[2018-10-26] MEDS: MELATONIN 3 MG TABLET PO SCH (20:57)
[2018-10-27 05:11] VITALS: BP 138/63
[2018-10-27 05:50] LABS: HEMOGLOBIN 9.2 G/DL (13.3-17.7); MEAN PLATELET VOLUME 9.3 FL (7.4-10.4); WHITE BLOOD COUNT 8.6 10^3/uL (4.3-11.0)
[2018-10-27] MEDS: POLYETHYLENE GLYCOL 17 GM (MIRALAX) PACK PO PRN (05:50)
[2018-10-27 06:16] LABS: ALANINE AMINOTRANSFERASE 24 U/L (0-55); ALKALINE PHOSPHATASE 68 U/L (40-136); BILIRUBIN,TOTAL 0.2 MG/DL (0.1-1.0); BUN/CREATININE RATIO 33; CARBON DIOXIDE 31 MMOL/L (21-32); CHLORIDE 97 MMOL/L (98-107); CREATININE SERUM 0.95 MG/DL (0.60-1.30); GFR ESTIMATED > 60; GLUCOSE 100 MG/DL (70-105); POTASSIUM 3.8 MMOL/L (3.6-5.0); SODIUM 137 MMOL/L (135-145); TOTAL PROTEIN 5.7 GM/DL (6.4-8.2)
[2018-10-27] MEDS: RT-ALBUTEROL/IPRATROPIUM 3 ML (DUONEB) VIAL INH SCH ×3 (06:45→19:27)
[2018-10-27] MEDS: predniSONE 20 MG TAB PO SCH (06:55)
[2018-10-27] MEDS: CARVEDILOL 12.5 MG (COREG) TABLET PO SCH ×2 (08:35→21:13)
[2018-10-27] MEDS: GABAPENTIN 600 MG (NEURONTIN) TAB PO SCH ×2 (08:35→21:13)
[2018-10-27] MEDS: HYDROCHLOROTHIAZIDE 25 MG (HCTZ) TAB PO SCH (08:35)
[2018-10-27] MEDS: DOCUSATE SODIUM 100 MG (COLACE) CAP PO SCH ×2 (08:36→21:14)
[2018-10-27] MEDS: LOSARTAN 100 MG (COZAAR) TABLET PO SCH (08:36)
[2018-10-27] MEDS: FUROSEMIDE 40 MG (LASIX) TAB PO SCH (08:36)
[2018-10-27] MEDS: DULoxetine 30 MG (CYMBALTA) CAP PO SCH (08:36)
[2018-10-27] MEDS: cloNIDine 0.2 MG (CATAPRES) TAB PO SCH ×2 (08:36→21:13)
[2018-10-27] MEDS: CLOPIDOGREL 75 MG (PLAVIX) TABLET PO SCH (08:37)
[2018-10-27] MEDS: MENTHOL/ZINC OXIDE (CALMOSEPTINE) 113 GM TUBE TOP SCH ×2 (08:37→21:16)
[2018-10-27] MEDS: amLODIPine 10 MG (NORVASC) TAB PO SCH (08:37)
--- NOTE | 2018-10-27 12:08 | Cardiology Progress Note ---
Cardiology SOAP Progress Note Subjective: No significant cardiac complaints. Objective: I&O/Vital Signs 10/27/18 10/27/18 10/27/18 05:11 06:47 08:53 Temp 97.1 Pulse 64 Resp 18 B/P (MAP) 138/63 (88) Pulse Ox 96 90 O2 Delivery Nasal Cannula Nasal Cannula Nasal Cannula O2 Flow Rate 2.00 2.00 2.00 10/27/18 00:00 Intake Total 1840 ml Output Total 2575 ml Balance -735 ml Weight (Pounds): 245 Weight (Ounces): 6.0 Weight (Calculated Kilograms): 111.360861 Constitutional: AAO x 3 Respiratory: chest is bilaterally symmetric, lungs clear to auscultation Cardiovascular: regular rate-rhythm, S1 and S2 Gastrointestional: soft, round, audible bowel sounds Extremities: normal range of motion, non-tender, normal inspection, no lower extremity edema bilateral Neurologic/Psychiatric: no motor/sensory deficits, alert, normal mood/affect, oriented x 3 Skin: normal color, warm/dry Results/Procedures: Labs Laboratory Tests 10/27/18 05:35: White Blood Count 8.6, Red Blood Count 3.41L, Hemoglobin 9.2L, Hematocrit 29L, Mean Corpuscular Volume 86, Mean Corpuscular Hemoglobin 27, Mean Corpuscular Hemoglobin Concent 31L, Red Cell Distribution Width 17.0H, Platelet Count 277, Mean Platelet Volume 9.3, Sodium Level 137, Potassium Level 3.8, Chloride Level 97L, Carbon Dioxide Level 31, Anion Gap 9, Blood Urea Nitrogen 31H, Creatinine 0.95, Estimat Glomerular Filtration Rate > 60, BUN/Creatinine Ratio 33, Glucose Level 100, Calcium Level 8.0L, Corrected Calcium 8.8, Total Bilirubin 0.2, Aspartate Amino Transf (AST/SGOT) 15, Alanine Aminotransferase (ALT/SGPT) 24, Alkaline Phosphatase 68, Total Protein 5.7L, Albumin 3.0L A/P: Assessment/Dx: Pneumonia Shortness of breath Coronary artery disease Hypertension Plan: Shortness of breath, improving slowly. Managed by Dr. Hutton. Hypertension, resistant, on multiple medication and receiving at this time Coreg 12.5 mg twice daily, losartan 100 mg daily, Norvasc 10 mg daily, hydrochloro thiazide 25 mg daily and clonidine 0.2 mg 3 times a day. Difficult to control while on prednisone. I will evaluate renal arterial Doppler study Pneumonia, recurrent, had MRSA in June by bronchoscopy, managed by Dr. Hutton Type II myocardial infarction, mild elevation in troponin level, probably due to respiratory failure and hypoxemia. Conservative management is recommended Coronary artery disease, history of CABG x3 done in 1999 using RODRIGEZ to LAD, vein graft to the first obtuse marginal, vein graft to the left posterolateral branch of the left circumflex artery. Last cardiac catheterization was done in November 2013 showing occluded vein graft to the left circumflex artery. Patient had 2 stents in the [place] circumflex artery using 3.516 mm proximally and 3.520 mm at the midportion Promus Premier stents, distally there was 60 percent stenosis which will be monitored. The LAD has significant disease proximally, patient has significantly tortuous thoracic and abdominal aorta. Deferred the the evaluation of the RODRIGEZ due to the use of large amount of contrast. The right coronary artery is a small none dominant artery was not even visualized during this study. Patient had another stent placed in the circumflex artery in [facility] in 2014, no recent workup for follow-up was done. continue to monitor at this time Heavily calcified thoracic and abdominal aorta. CTA done on 01/06/2014 revealed no aneurysm or occlusions or stenosis of abdominal aorta or major branches, I will evaluate renal arterial Doppler Valvular heart disease with mild aortic regurgitation, mild mitral and tricuspid regurgitation. Moderate left ventricular hypertrophy. Hyperlipidemia, continue to monitor. History of CVA. Continue to monitor. Mild carotid stenosis, nonobstructive disease bilaterally, has been followed in [facility], requesting to transfer is service back to my office. I will evaluate carotid ultrasound as an outpatient COPD/obstructive sleep apnea, Continue to monitor. History of prostate CA with questionable metastasis, patient expressed that it has been followed and managed at . He reported that it was slow growing and the recommendation was conservative management. Cauda equina syndrome, underwent surgery, patient expressed that he did not have full recovery Thank you for your consultation. Please call me if you have any questions. Lefty Su MD, FACP, FACC, FSCAI, FHRS, CCDS Interventional Cardiology Cardiac Electrophysiology Vascular Medicine and Endovascular Interventions Neli SU MD Oct 27, 2018 12:08
--- NOTE | 2018-10-27 14:18 | Physical Therapy Daily Note ---
PT Daily Note-Current Subjective Pt agreeable to PT session, states he used to be very active with exercising with his , doesn't walk now due to knee are "blown out" Pain Numeric Pain Scale: 0-No Pain Appearance Pt sitting up in recliner upon arrival, awake and alert. At end of session, pt sitting in recliner with call light, phone and bedside table within reach Mental Status Patient Orientation: Person, Place, Time, Eyes Open, Situation, Normal For Age Transfers Therapy Code Descriptions/Definitions Functional [place] Measure: 0=Not Assessed/NA 4=Minimal Assistance 1=Total Assistance 5=Supervision or Setup 2=Maximal Assistance 6=Modified [place] 3=Moderate Assistance 7=Complete [place] Therapy Quality Codes: 6 Independent with activity with or without an assistive device 5 Patient requires set up or clean up by helper. Patient completes activity by themselves 4 Supervision or touching assist (CGA). Menan provide cues , steadying assist 3 The helper provides less than half the effort to complete the activity 2 The helper provides more than half the effort to complete the activity 1 Dependent. The helper does all the effort to complete an activity 7 Patient refused to complete or attempt activity 9 The patient did not perform the activity before the current illness or injury 88 Not attempted due to Medical conditions or safety concerns Exercises Supine Ex: Bridging, Ankle pumps, Quad Set, Glut sets, Lower trunk rotation, Heel Slides, Knee to chest, Short Arc Quads, Straight leg raise, Hip abd/add Supine Reps: 25 Treatments strength, ROM, education Assessment Current Status: Fair Progress PT Half-Way Goals Half-Way Goals PT Half-Way Goals Time Frame: Nov 03, 2018 Transfers (B,C,W/C) (FIM): 6 Sit to Lying (QC): 6 Lying-Sitting on Side/Bed(QC): 6 Sit to Stand (QC): 6 Rollin Roll Left to Right (QC): 6 Chair/Nir-rd-Bxevf Xfer(QC): 6 Car Transfer (QC): 6 Does the Patient Walk: No and Walking Goal NOT indicated PT Plan Treatment/Plan Treatment Plan: Continue Plan of Care Treatment Plan: Education, Functional Activity Razia, Functional Strength, Safety, Therapeutic Exercise, Transfers Treatment Duration: Nov 03, 2018 Frequency: 6 times per week Estimated Hrs Per Day: .25 hour per day Patient and/or Family Agrees t: Yes Time/GCodes Time In: 1155 Time Out: 1215 Total Billed Treatment Time: 20 Total Billed Treatment 1 visit, EX x1 unit KATERYNA CHIRINOS ENGRAVING PRESS OPERATOR Oct 27, 2018 14:18
[2018-10-27] MEDS: VANCOMYCIN INJECTION 2,250 MG in NS IV 500 ML 500 ML IV SCH (16:25)
[2018-10-27] MEDS: ENOXAPARIN 40 MG/0.4 ML (LOVENOX) SYR SC SCH (16:25)
[2018-10-27 18:08] VITALS: BP 110/54
[2018-10-27] MEDS: FAMOTIDINE 20 MG (PEPCID) TABLET PO SCH (21:13)
[2018-10-27] MEDS: MELATONIN 3 MG TABLET PO SCH (21:14)
[2018-10-28] MEDS: POLYETHYLENE GLYCOL 17 GM (MIRALAX) PACK PO PRN ×2 (06:07→23:20)
[2018-10-28] MEDS: predniSONE 20 MG TAB PO SCH (06:07)
[2018-10-28 06:10] VITALS: BP 132/58
[2018-10-28] MEDS: RT-ALBUTEROL/IPRATROPIUM 3 ML (DUONEB) VIAL INH SCH ×4 (06:59→19:47)
[2018-10-28] MEDS: CARVEDILOL 12.5 MG (COREG) TABLET PO SCH ×2 (08:22→20:42)
[2018-10-28] MEDS: DULoxetine 30 MG (CYMBALTA) CAP PO SCH (08:23)
[2018-10-28] MEDS: amLODIPine 10 MG (NORVASC) TAB PO SCH (08:23)
[2018-10-28] MEDS: FUROSEMIDE 40 MG (LASIX) TAB PO SCH (08:23)
[2018-10-28] MEDS: HYDROCHLOROTHIAZIDE 25 MG (HCTZ) TAB PO SCH (08:23)
[2018-10-28] MEDS: LOSARTAN 100 MG (COZAAR) TABLET PO SCH (08:23)
[2018-10-28] MEDS: cloNIDine 0.2 MG (CATAPRES) TAB PO SCH ×2 (08:23→20:43)
[2018-10-28] MEDS: GABAPENTIN 600 MG (NEURONTIN) TAB PO SCH ×2 (08:23→20:42)
[2018-10-28] MEDS: CLOPIDOGREL 75 MG (PLAVIX) TABLET PO SCH (08:23)
[2018-10-28] MEDS: DOCUSATE SODIUM 100 MG (COLACE) CAP PO SCH ×2 (08:26→20:43)
--- NOTE | 2018-10-28 11:12 | Cardiology Progress Note ---
Cardiology SOAP Progress Note Subjective: gradually improving. Objective: I&O/Vital Signs 10/28/18 06:10 Temp 98.7 Pulse 66 Resp 20 B/P (MAP) 132/58 (82) Pulse Ox 94 O2 Delivery Nasal Cannula O2 Flow Rate 2.00 10/28/18 00:00 Intake Total 3002.5 ml Output Total 2600 ml Balance 402.5 ml Weight (Pounds): 245 Weight (Ounces): 6.0 Weight (Calculated Kilograms): 111.330257 Constitutional: AAO x 3 Respiratory: chest is bilaterally symmetric, lungs clear to auscultation Cardiovascular: regular rate-rhythm, S1 and S2 Gastrointestional: soft, round, audible bowel sounds Extremities: normal range of motion, non-tender, normal inspection, no lower extremity edema bilateral Neurologic/Psychiatric: no motor/sensory deficits, alert, normal mood/affect, oriented x 3 Skin: normal color, warm/dry A/P: Assessment/Dx: Pneumonia Shortness of breath Coronary artery disease Hypertension Plan: Shortness of breath, improving slowly. Managed by Dr. Hutton. Hypertension, resistant, on multiple medication and receiving at this time Coreg 12.5 mg twice daily, losartan 100 mg daily, Norvasc 10 mg daily, hydrochlorothiazide 25 mg daily and clonidine 0.2 mg 3 times a day. Difficult to control while on prednisone. I will evaluate renal arterial Doppler study Pneumonia, recurrent, had MRSA in June by bronchoscopy, managed by Dr. Hutton Type II myocardial infarction, mild elevation in troponin level, probably due to respiratory failure and hypoxemia. Conservative management is recommended Coronary artery disease, history of CABG x3 done in 1999 using RODRIGEZ to LAD, vein graft to the first obtuse marginal, vein graft to the left posterolateral branch of the left circumflex artery. Last cardiac catheterization was done in November 2013 showing occluded vein graft to the left circumflex artery. Patient had 2 stents in the [place] circumflex artery using 3.516 mm proximally and 3.520 mm at the midportion Promus Premier stents, distally there was 60 percent stenosis which will be monitored. The LAD has significant disease proximally, patient has significantly tortuous thoracic and abdominal aorta. Deferred the the evaluation of the RODRIGEZ due to the use of large amount of contrast. The right coronary artery is a small none dominant artery was not even visualized during this study. Patient had another stent placed in the circumflex artery in [facility] in 2014, no recent workup for follow-up was done. continue to monitor at this time Heavily calcified thoracic and abdominal aorta. CTA done on 01/06/2014 revealed no aneurysm or occlusions or stenosis of abdominal aorta or major branches, I will evaluate renal arterial Doppler Valvular heart disease with mild aortic regurgitation, mild mitral and tricuspid regurgitation. Moderate left ventricular hypertrophy. Hyperlipidemia, continue to monitor. History of CVA. Continue to monitor. Mild carotid stenosis, nonobstructive disease bilaterally, has been followed in [facility], requesting to transfer is service back to my office. I will evaluate carotid ultrasound as an outpatient COPD/obstructive sleep apnea, Continue to monitor. History of prostate CA with questionable metastasis, patient expressed that it has been followed and managed at . He reported that it was slow growing and the recommendation was conservative management. Cauda equina syndrome, underwent surgery, patient expressed that he did not have full recovery Thank you for your consultation. Please call me if you have any questions. Lefty Su MD, FACP, FACC, FSCAI, FHRS, CCDS Interventional Cardiology Cardiac Electrophysiology Vascular Medicine and Endovascular Interventions Neli SU MD Oct 28, 2018 11:12
[2018-10-28] MEDS: MENTHOL/ZINC OXIDE (CALMOSEPTINE) 113 GM TUBE TOP SCH ×2 (12:16→20:43)
[2018-10-28] MEDS: VANCOMYCIN INJECTION 2,250 MG in NS IV 500 ML 500 ML IV SCH (17:30)
[2018-10-28] MEDS: ENOXAPARIN 40 MG/0.4 ML (LOVENOX) SYR SC SCH (17:30)
[2018-10-28 17:34] VITALS: BP 125/65
[2018-10-28] MEDS: MELATONIN 3 MG TABLET PO SCH (20:42)
[2018-10-28] MEDS: FAMOTIDINE 20 MG (PEPCID) TABLET PO SCH (20:42)
[2018-10-29 06:00] VITALS: BP 117/55
[2018-10-29] MEDS: predniSONE 20 MG TAB PO SCH (06:05)
[2018-10-29 06:24] LABS: MEAN PLATELET VOLUME 9.5 FL (7.4-10.4); RED CELL DISTRIBUTION WIDTH 17.3 % (10.0-14.5); WHITE BLOOD COUNT 8.4 10^3/uL (4.3-11.0)
[2018-10-29 06:41] LABS: ALANINE AMINOTRANSFERASE 24 U/L (0-55); ALBUMIN 3.1 GM/DL (3.2-4.5); ALKALINE PHOSPHATASE 83 U/L (40-136); BILIRUBIN,TOTAL 0.2 MG/DL (0.1-1.0); BUN/CREATININE RATIO 33; CALCIUM 8.5 MG/DL (8.5-10.1); CARBON DIOXIDE 32 MMOL/L (21-32); CHLORIDE 96 MMOL/L (98-107); CREATININE SERUM 0.91 MG/DL (0.60-1.30); GFR ESTIMATED > 60; GLUCOSE 108 MG/DL (70-105); POTASSIUM 4.2 MMOL/L (3.6-5.0); SODIUM 136 MMOL/L (135-145); TOTAL PROTEIN 5.8 GM/DL (6.4-8.2)
[2018-10-29] MEDS: RT-ALBUTEROL/IPRATROPIUM 3 ML (DUONEB) VIAL INH SCH (06:53)
[2018-10-29] MEDS: HYDROCHLOROTHIAZIDE 25 MG (HCTZ) TAB PO SCH (08:08)
[2018-10-29] MEDS: DOCUSATE SODIUM 100 MG (COLACE) CAP PO SCH (08:08)
[2018-10-29] MEDS: GABAPENTIN 600 MG (NEURONTIN) TAB PO SCH (08:09)
[2018-10-29] MEDS: cloNIDine 0.2 MG (CATAPRES) TAB PO SCH (08:09)
[2018-10-29] MEDS: DULoxetine 30 MG (CYMBALTA) CAP PO SCH (08:09)
[2018-10-29] MEDS: LOSARTAN 100 MG (COZAAR) TABLET PO SCH (08:09)
[2018-10-29] MEDS: CLOPIDOGREL 75 MG (PLAVIX) TABLET PO SCH (08:09)
[2018-10-29] MEDS: FUROSEMIDE 40 MG (LASIX) TAB PO SCH (08:09)
[2018-10-29] MEDS: amLODIPine 10 MG (NORVASC) TAB PO SCH (08:09)
[2018-10-29] MEDS: CARVEDILOL 12.5 MG (COREG) TABLET PO SCH (08:09)
--- NOTE | 2018-10-29 08:45 | Discharge Summary ---
Diagnosis/Chief Complaint Date of Admission Oct 19, 2018 at 08:56 Date of Discharge Discharge Summary Discharge Physical Examination Allergies: Uncoded Allergies: SURGICAL TAPE (Adverse Reaction, Intermediate, IRRITATES SKIN, 08/16/10) Vitals & I&Os Vital Signs Date Time Temp Pulse Resp B/P (MAP) Pulse Ox O2 Delivery O2 Flow Rate FiO2 10/29/18 06:00 97.3 61 18 117/55 (75) 92 Nasal Cannula 2.00 Hospital Course Pending Labs Laboratory Tests 10/29/18 06:00: White Blood Count 8.4, Red Blood Count 3.35, Hemoglobin 9.0, Hematocrit 29, Mean Corpuscular Volume 86, Mean Corpuscular Hemoglobin 27, Mean Corpuscular Hemoglobin Concent 31, Red Cell Distribution Width 17.3, Platelet Count 243, Mean Platelet Volume 9.5, Sodium Level 136, Potassium Level 4.2, Chloride Level 96, Carbon Dioxide Level 32, Anion Gap 8, Blood Urea Nitrogen 30, Creatinine 0.91, Estimat Glomerular Filtration Rate > 60, BUN/Creatinine Ratio 33, Glucose Level 108, Calcium Level 8.5, Corrected Calcium 9.2, Total Bilirubin 0.2, Aspartate Amino Transf (AST/SGOT) 18, Alanine Aminotransferase (ALT/SGPT) 24, Alkaline Phosphatase 83, Total Protein 5.8, Albumin 3.1 Discharge Instructions to patient/family Please see electronic discharge instructions given to patient. Discharge Medications Reviewed and agree with Discharge Medication list on patient's Discharge Instruction sheet Clinical Quality Measures DVT/VTE Risk/Contraindication: Risk Factor Score Per Nursin FEDE BUTLER MD Oct 29, 2018 08:45
[2018-10-29] MEDS ORDERED: POTA10CA43 PO (08:52)
[2018-10-29] MEDS ORDERED: PRD20T PO (08:52)
[2018-10-29] MEDS ORDERED: LOSA100T57 PO (08:52)
[2018-10-29] MEDS ORDERED: DOCU100C37 PO (08:52)
[2018-10-29] MEDS ORDERED: CLON0.2T PO (08:52)
--- NOTE | 2018-10-29 08:55 | D/C HH Face to Face Order ---
D/C Face to Face Orders Reconcile Patient Problems Problems Reviewed?: Yes Instructions for Patient Via [facility], Patient Instructions/FollowUp: [facility] [address] CHIN [address] BARRETT Physician to follow Patient: [facility] Discharge Diet for Home: Regular Diet Patient Problems: UTI- WITH CHRONIC INDWELLING SUPRAPUBIC CATHETER CAUDA EQUINA SYNDROME LEFT SIDED HERNIA WITH OSTOMY IN HERNIA SITE HYPERTENSION PULMONARY FIBROSIS Patient Data-Allergies,Ht & Wt Patient Allergies: Uncoded Allergies: SURGICAL TAPE (Adverse Reaction, Intermediate, IRRITATES SKIN, 08/16/10) Height (Feet): 5 Height (Inches): 10.00 Weight (Pounds): 245 Weight (Ounces): 6.0 Home Health Need/Face to Face Date of Face to Face: Oct 29, 2018 Clinical Findings: Generalized weakness and fatigue, Muscle weakness, Non or partial weight bearing, Other-list in note (OSTOMY) I have seen Pt ldie-jl-clef: Yes Discharged To: Home Diagnosis/Conditions: UTI- WITH CHRONIC INDWELLING SUPRAPUBIC CATHETER CAUDA EQUINA SYNDROME LEFT SIDED HERNIA WITH OSTOMY IN HERNIA SITE HYPERTENSION Patient is Homebound due to: Jackeline fall risk due to instabilty, Muscle weakness, Shortness of breath/distress Homebound Status Due to the above stated illness, injury or surgical procedure (medical condition or diagnosis) and associated clinical findings, the patient is homebound because of his/her inability to leave home except with aid of a supportive device and/or person AND leaving the home requires a considerable and taxing effort or is medically contraindicated. Pt req the following assistanc: Wheelchair Home Health Nursing Orders Home Health Services Order: Nursing Services, Dry Chain Worker-Evaluate & Treat, Physical Therapy-Evaluate & Treat CHECK CMP, CBC ON 11/01/18 AND 11/08/18 Home Health Infusion Therapy Line Start Date: Oct 19, 2018 Therapy Orders Therapy Orders: Physical Therapy, PT to assess for OT Therapy Specific Orders: Teach enviro modifications/safety, Provider maintenance therapy Certify Stmt I certify that this patient is under my care and that I, a nurse practitioner or a physician; a assistant federal public defender working with me, had a face to face encounter that - meets the physician face to face encounter requirements with this patient as dated. Medication List: Active Scripts Active Prednisone 20 Mg Tab 40 Mg PO DAILY@0700 2PILLS DAILY X 5DAYS, THEN DECREASE TO 1PILL DAILY X 10 DAYS THEN 1/2 PILL DAILY THEREAFTER Docusate Sodium 100 Mg Capsule 100 Mg PO BID Losartan Potassium 100 Mg Tablet 100 Mg PO DAILY Clonidine HCl 0.2 Mg Tablet 0.2 Mg PO BID Potassium Chloride 10 Meq Capsule.er 10 Meq PO Q48H Reported Albuterol Sulfate 2.5 Mg/3 Ml Vial.neb 2.5 Mg NEB Q4H PRN Pantoprazole Sodium 40 Mg Tablet.dr 40 Mg PO HS Praluent Pen (Alirocumab) 75 Mg/1 Ml Pen.injctr 75 Mg SC EVERY 2 WEEKS Duloxetine HCl 30 Mg Capsule.dr 60 Mg PO DAILY TAKES 2 (30MG) CAPSULES Miralax (Polyethylene Glycol 3350) 17 Gm Powd.pack 17 Gm PO DAILY Multivitamins (Multivitamin) 1 Each Tablet 1 Tab PO DAILY Melatonin 5 Mg Capsule 5 Mg PO HS Vitamin D3 (Cholecalciferol (Vitamin D3)) 400 Unit Capsule 400 Unit PO BID Aspirin EC (Aspirin) 81 Mg Tablet.dr 81 Mg PO HS Diclofenac Sodium 75 Mg Tablet.dr 75 Mg PO BID Potassium Chloride 20 Meq Tablet.er 20 Meq PO HS Amlodipine Besylate 10 Mg Tablet 10 Mg PO DAILY Clonidine HCl 0.1 Mg Tablet 0.1 Mg PO BID Gabapentin 600 Mg Tablet 600 Mg PO BID Oxycodone HCl 5 Mg Tablet 15-20 Mg PO DAILY TAKES 3-4 (5 MG) TABLETS Clopidogrel (Clopidogrel Bisulfate) 75 Mg Tablet 75 Mg PO DAILY Furosemide 40 Mg Tablet 40 Mg PO DAILY Carvedilol 12.5 Mg Tablet 12.5 Mg PO BID Lisinopril 40 Mg Tablet 40 Mg PO DAILY LAST FILLED #90 05-04-18 Lab results: Laboratory Tests Test 10/29/18 06:00 Range/Units White Blood Count 8.4 4.3-11.0 10^3/uL Red Blood Count 3.35 L 4.35-5.85 10^6/uL Hemoglobin 9.0 L 13.3-17.7 G/DL Hematocrit 29 L 40-54 % Mean Corpuscular Volume 86 80-99 FL Mean Corpuscular Hemoglobin 27 25-34 PG Mean Corpuscular Hemoglobin Concent 31 L 32-36 G/DL Red Cell Distribution Width 17.3 H 10.0-14.5 % Platelet Count 243 130-400 10^3/uL Mean Platelet Volume 9.5 7.4-10.4 FL Sodium Level 136 135-145 MMOL/L Potassium Level 4.2 3.6-5.0 MMOL/L Chloride Level 96 L 98-107 MMOL/L Carbon Dioxide Level 32 21-32 MMOL/L Anion Gap 8 5-14 MMOL/L Blood Urea Nitrogen 30 H 7-18 MG/DL Creatinine 0.91 0.60-1.30 MG/DL Estimat Glomerular Filtration Rate > 60 BUN/Creatinine Ratio 33 Glucose Level 108 H 70-105 MG/DL Calcium Level 8.5 8.5-10.1 MG/DL Corrected Calcium 9.2 8.5-10.1 MG/DL Total Bilirubin 0.2 0.1-1.0 MG/DL Aspartate Amino Transf (AST/SGOT) 18 5-34 U/L Alanine Aminotransferase (ALT/SGPT) 24 0-55 U/L Alkaline Phosphatase 83 40-136 U/L Total Protein 5.8 L 6.4-8.2 GM/DL Albumin 3.1 L 3.2-4.5 GM/DL My orders: Orders - FEDE BUTLER MD Attending Discharge Inpt/Inobs (10/29/18 08:46) Home Wil Services Dischage (10/29/18 08:46) FEDE BUTLER MD Oct 29, 2018 08:55
--- NOTE | 2018-10-29 10:03 | Therapy Team Discharge Summary ---
Therapy Discharge Summary Discharge Recommendations Date of Discharge Physical Therapy Patient dismissing to home with spouse and home health on this date. Patient has attained all functional goals and is compliant with exercise program. Patient continues to be nonambulatory due to cauda equina, however, does demo nstrate good strength to perform bed mobility and transfers safely. PT to dismiss patient from services at this time. Occupational Therapy Decreased Activ Tolerance, Impaired Self-Care Skills PT Halfway Goals Halfway Goals PT Halfway Goals Time Frame: Nov 03, 2018 Transfers (B,C,W/C) (FIM): 6 (met 10/25/18) Sit to Lying (QC): 6 (met 10/25/18) Lying-Sitting on Side/Bed(QC): 6 (met 10/25/18) Sit to Stand (QC): 6 (me 10/25/18) Rollin (met 10/25/18) Chair/Pyv-ks-Ifnlz Xfer(QC): 6 (met 10/25 18) Does the Patient Walk: No and Walking Goal NOT indicated OT Halfway Goals Halfway Goals Time Frame: Nov 02, 2018 Groomin Oral Hygiene (QC): 6 Bathing(FIM): 5 Upper Body Dressing(FIM): 5 Lower Body Dressing(FIM): 5 Additional Goals: 1-Demonstrate ADL Tasks, 2-Verbalize Understanding, 3- ImproveStrength/Razia 1=Demonstrate adherence to instructed precautions during ADL tasks. 2=Patient will verbalize/demonstrate understanding of assistive devices/modifications for ADL. 3=Patient will improve strength/tolerance for activity to enable patient to perform ADL's. DELANO MONTGOMERY PT Oct 29, 2018 10:03
--- NOTE | 2018-10-29 10:36 | NUR ---
CM/SS, final discharge planning. HHC: Arranged with patient preferred agency, [facility] for RN, PT, OT, and bath aid. Patient's son and granddaughter here with him this a.m., very supportive. Spouse will be coming to transport and bring portable O2. Provided contact info to son for post discharge questions as needed. Addendum: 10/29/18 at 1041 by SHIRIN COOL Notice of Medicare Non-Coverage, Long Term, delivered to patient. Reviewed, patient had no questions and indicated he is ready to return home today. No intention to appeal.
[2018-10-29] MEDS: MENTHOL/ZINC OXIDE (CALMOSEPTINE) 113 GM TUBE TOP SCH (10:56)
--- NOTE | 2018-10-29 11:25 | NUR ---
Assisted Shaneka GLASS MOLD REPAIRER with changing ostomy appliance after shower. Applied the steroid cream to stoma per Dr. Aburto orders. Pt gluteal cleft is still MASD with a little skin breakdown on right buttocks. Pt buttocks is very red due to moisture and drainage from rectum.
--- NOTE | 2018-10-29 11:29 | Cardiology Progress Note ---
Cardiology SOAP Progress Note Subjective: improved cardiac symptoms. Objective: I&O/Vital Signs 10/29/18 10/29/18 06:00 09:00 Temp 36.18058 Pulse 61 Resp 18 B/P (MAP) 117/55 (75) Pulse Ox 92 O2 Delivery Nasal Cannula Nasal Cannula O2 Flow Rate 2.00 2.00 10/29/18 00:00 Intake Total 2410 ml Output Total 3500 ml Balance -1090 ml Weight (Pounds): 245 Weight (Ounces): 6.0 Weight (Calculated Kilograms): 111.262080 Constitutional: AAO x 3 Respiratory: chest is bilaterally symmetric, lungs clear to auscultation Cardiovascular: regular rate-rhythm, S1 and S2 Gastrointestional: soft, round, audible bowel sounds Extremities: normal range of motion, non-tender, normal inspection, no lower extremity edema bilateral Neurologic/Psychiatric: no motor/sensory deficits, alert, normal mood/affect, oriented x 3 Skin: normal color, warm/dry Results/Procedures: Labs Laboratory Tests 10/29/18 06:00: White Blood Count 8.4, Red Blood Count 3.35L, Hemoglobin 9.0L, Hematocrit 29L, Mean Corpuscular Volume 86, Mean Corpuscular Hemoglobin 27, Mean Corpuscular Hemoglobin Concent 31L, Red Cell Distribution Width 17.3H, Platelet Count 243, Mean Platelet Volume 9.5, Sodium Level 136, Potassium Level 4.2, Chloride Level 96L, Carbon Dioxide Level 32, Anion Gap 8, Blood Urea Nitrogen 30H, Creatinine 0.91, Estimat Glomerular Filtration Rate > 60, BUN/Creatinine Ratio 33, Glucose Level 108H, Calcium Level 8.5, Corrected Calcium 9.2, Total Bilirubin 0.2, Aspartate Amino Transf (AST/SGOT) 18, Alanine Aminotransferase (ALT/SGPT) 24, Alkaline Phosphatase 83, Total Protein 5.8L, Albumin 3.1L A/P: Assessment/Dx: Pneumonia Shortness of breath Coronary artery disease Hypertension Plan: Shortness of breath, improving slowly. Managed by Dr. Hutton. Hypertension, resistant, on multiple medication and receiving at this time Coreg 12.5 mg twice daily, losartan 100 mg daily, Norvasc 10 mg daily, hydrochlorothiazide 25 mg daily and clonidine 0.2 mg 3 times a day. Difficult to control while on prednisone. I will evaluate renal arterial Doppler study Pneumonia, recurrent, had MRSA in June by bronchoscopy, managed by Dr. Hutton Type II myocardial infarction, mild elevation in troponin level, probably due to respiratory failure and hypoxemia. Conservative management is recommended Coronary artery disease, history of CABG x3 done in 1999 using RODRIGEZ to LAD, vein graft to the first obtuse marginal, vein graft to the left posterolateral branch of the left circumflex artery. Last cardiac catheterization was done in November 2013 showing occluded vein graft to the left circumflex artery. Patient had 2 stents in the [place] circumflex artery using 3.516 mm proximally and 3.520 mm at the midportion Promus Premier stents, distally there was 60 percent stenosis which will be monitored. The LAD has significant disease proximally, patient has significantly tortuous thoracic and abdominal aorta. Deferred the the evaluation of the RODRIGEZ due to the use of large amount of contrast. The right coronary artery is a small none dominant artery was not even visualized during this study. Patient had another stent placed in the circumflex artery in [facility] in 2014, no recent workup for follow-up was done. continue to monitor at this time Heavily calcified thoracic and abdominal aorta. CTA done on 01/06/2014 revealed no aneurysm or occlusions or stenosis of abdominal aorta or major branches, I will evaluate renal arterial Doppler Valvular heart disease with mild aortic regurgitation, mild mitral and tricuspid regurgitation. Moderate left ventricular hypertrophy. Hyperlipidemia, continue to monitor. History of CVA. Continue to monitor. Mild carotid stenosis, nonobstructive disease bilaterally, has been followed in [facility], requesting to transfer is service back to my office. I will evaluate carotid ultrasound as an outpatient COPD/obstructive sleep apnea, Continue to monitor. History of prostate CA with questionable metastasis, patient expressed that it has been followed and managed at . He reported that it was slow growing and the recommendation was conservative management. Cauda equina syndrome, underwent surgery, patient expressed that he did not have full recovery Thank you for your consultation. Please call me if you have any questions. Lefty Su MD, FACP, FACC, FSCAI, FHRS, CCDS Interventional Cardiology Cardiac Electrophysiology Vascular Medicine and Endovascular Interventions Neli SU MD Oct 29, 2018 11:29
--- NOTE | 2018-10-30 15:13 | Therapy Team Discharge Summary ---
Therapy Discharge Summary Discharge Recommendations Date of Discharge Oct 29, 2018 at 13:10 Occupational Therapy Pt admitted to [facility] status following acute hospitalization for pneumonia. On ad mission pt completed eating with modified independence and grooming with SBA. Skilled OT intervention focused on ADL training, strengthening, and transfers. Pt made progress with therapy and demonstrated ability to use adaptive equipment as needed for ADL tasks. Goals were addressed, but not fully attained. Pt discharge home with spouse. D/C SWB OT at this time. Decreased Activ Tolerance, Impaired Self-Care Skills PT Junior Art Director Goals Shelter Goals PT Shelter Goals Time Frame: Nov 03, 2018 Transfers (B,C,W/C) (FIM): 6 (met 10/25/18) Sit to Lying (QC): 6 (met 10/25/18) Lying-Sitting on Side/Bed(QC): 6 (met 10/25/18) Sit to Stand (QC): 6 (me 10/25/18) Rollin (met 10/25/18) Chair/Rqf-ht-Ufkff Xfer(QC): 6 (met 10/25 18) Does the Patient Walk: No and Walking Goal NOT indicated OT Junior Art Director Goals Shelter Goals Time Frame: Nov 02, 2018 Groomin Oral Hygiene (QC): 6 Bathing(FIM): 5 Upper Body Dressing(FIM): 5 Lower Body Dressing(FIM): 5 Additional Goals: 1-Demonstrate ADL Tasks, 2-Verbalize Understanding, 3-ImproveStrength/Razia 1=Demonstrate adherence to instructed precautions during ADL tasks. 2=Patient will verbalize/demonstrate understanding of assistive devices/modifications for ADL. 3=Patient will improve strength/tolerance for activity to enable patient to perform ADL's. SIDRA GARCIA OT Oct 30, 2018 15:13
== END 2018-10-29 13:10 | disposition home health service (06) | DRG 177 ==
LOC: 4TH 08:56
PROVIDERS: ADMIT Family Medicine; ATTEND Family Medicine
DX: J15.212 Pneumonia due to Methicillin resistant Staphylococcus aureus (principal); I21.A1 Myocardial infarction type 2; J44.0 Chronic obstructive pulmonary disease with (acute) lower respiratory infection; J84.10 Pulmonary fibrosis, unspecified; I42.8 Other cardiomyopathies; G83.4 Cauda equina syndrome; K94.02 Colostomy infection; E66.9 Obesity, unspecified; I10 Essential (primary) hypertension; I25.10 Atherosclerotic heart disease of native coronary artery without angina pectoris; D63.8 Anemia in other chronic diseases classified elsewhere; G47.33 Obstructive sleep apnea (adult) (pediatric); D50.0 Iron deficiency anemia secondary to blood loss (chronic); I08.3 Combined rheumatic disorders of mitral, aortic and tricuspid valves; E78.5 Hyperlipidemia, unspecified; I77.1 Stricture of artery; I70.0 Atherosclerosis of aorta; G47.00 Insomnia, unspecified; G62.9 Polyneuropathy, unspecified; F32.9 Major depressive disorder, single episode, unspecified; K59.00 Constipation, unspecified; R53.1 Weakness; I65.23 Occlusion and stenosis of bilateral carotid arteries; Z95.1 Presence of aortocoronary bypass graft; Z95.5 Presence of coronary angioplasty implant and graft; Z68.35 Body mass index [BMI] 35.0-35.9, adult; Z85.46 Personal history of malignant neoplasm of prostate; Z86.73 Personal history of transient ischemic attack (TIA), and cerebral infarction without residual deficits; Z87.891 Personal history of nicotine dependence
CPT/HCPCS: 36415; 36569; 71045; 71046; 76937; 80053; 80202; 83880; 85027; 94640; 94760

== ENCOUNTER 2018-11-24 13:36 | Inpatient (IN) | payer MEDICARE, OTHER ==
[~2018-11-24] VITALS: Ht 182.8 cm; Wt 99.9 kg
[~2018-11-24 13:36] MED LIST changes: +CLON0.2T PO; +DOCU100C37 PO; +LOSA100T57 PO; +POTA10CA43 PO; +PRD20T PO
--- NOTE | 2018-11-24 14:05 | ED GI ---
General Chief Complaint: Abdominal/GI Problems Stated Complaint: ABD ISSUE Source of Information: Patient Exam Limitations: No Limitations History of Present Illness Date Seen by Provider: Nov 24, 2018 Time Seen by Provider: 14:00 Initial Comments To ER per EMS from home with reports of no output from his colostomy except for bloody mucus for the past 4 days. The bloody mucus has been ongoing for quite some time. He's had a poor appetite, no fevers. He has some right-sided abdominal pain. He had his colostomy placed in about 2016 at [facility] in [place] following an episode of cauda equina syndrome with subsequent neurogenic bowel. He wears oxygen at 3 L per nasal cannula [id number] and a C Pap at night. EMS noted hypoxia and about 80% on his baseline 3 L in route to the hospital. Patient was just discharged a couple of days ago for an episode of pneumonia. He does feel more short of breath than usual. He has pulmonary fibrosis. states that there is been a bloody discharge from the stoma for quite some time this is not a new finding. Timing/Duration: 3-4 Days Severity/Quality: Moderate Radiation: No Radiation Activities at Onset: None Associated Symptoms: Denies Symptoms Allergies and Home Medications Allergies Uncoded Allergies: SURGICAL TAPE (Adverse Reaction, Intermediate, IRRITATES SKIN, 08/16/10) Home Medications Albuterol Sulfate 2.5 Mg/3 Ml Vial.neb, 2.5 MG NEB Q4H PRN for SHORTNESS OF BREATH, (Reported) Alirocumab 75 Mg/1 Ml Pen.injctr, 75 MG SC EVERY 2 WEEKS, (Reported) Amlodipine Besylate 10 Mg Tablet, 10 MG PO DAILY, (Reported) Aspirin 81 Mg Tablet.dr, 81 MG PO HS, (Reported) Carvedilol 12.5 Mg Tablet, 12.5 MG PO BID, (Reported) Cholecalciferol (Vitamin D3) 400 Unit Capsule, 400 UNIT PO BID, (Reported) Clonidine HCl 0.2 Mg Tablet, 0.2 MG PO BID Prescribed by: FEDE BUTLER on 10/29/18851 Clopidogrel Bisulfate 75 Mg Tablet, 75 MG PO DAILY, (Reported) Diclofenac Sodium 75 Mg Tablet.dr, 75 MG PO BID, (Reported) Docusate Sodium 100 Mg Capsule, 100 MG PO BID Prescribed by: FEDE BUTLER on 10/29/18851 Duloxetine HCl 30 Mg Capsule.dr, 60 MG PO DAILY, (Reported) TAKES 2 (30MG) CAPSULES Furosemide 40 Mg Tablet, 40 MG PO DAILY, (Reported) Gabapentin 600 Mg Tablet, 600 MG PO BID, (Reported) Losartan Potassium 100 Mg Tablet, 100 MG PO DAILY Prescribed by: FEDE BUTLER on 10/29/18851 Melatonin 5 Mg Capsule, 5 MG PO HS, (Reported) Multivitamin 1 Each Tablet, 1 TAB PO DAILY, (Reported) Oxycodone HCl 5 Mg Tablet, 15-20 MG PO DAILY, (Reported) TAKES 3-4 (5 MG) TABLETS Pantoprazole Sodium 40 Mg Tablet.dr, 40 MG PO HS, (Reported) Polyethylene Glycol 3350 17 Gm Powd.pack, 17 GM PO DAILY, (Reported) Potassium Chloride 10 Meq Capsule.er, 10 MEQ PO Q48H Prescribed by: FEDE BUTLER on 10/29/18851 Prednisone 20 Mg Tab, 40 MG PO DAILY@0700 2PILLS DAILY X 5DAYS, THEN DECREASE TO 1PILL DAILY X 10 DAYS THEN 1/2 PILL DAILY THEREAFTER Prescribed by: FEDE BUTLER on 10/29/18851 Patient Home Medication List Home Medication List Reviewed: Yes Review of Systems Review of Systems Constitutional: see HPI EENTM: No Symptoms Reported Respiratory: No Symptoms Reported Cardiovascular: No Symptoms Reported Gastrointestinal: See HPI, Abdominal Pain, Constipated Genitourinary: No Symptoms Reported Musculoskeletal: no symptoms reported Skin: no symptoms reported Psychiatric/Neurological: No Symptoms Reported Endocrine: No Symptoms Reported Hematologic/Lymphatic: No Symptoms Reported Past Dvsvtdv-Wjrypp-Fdless Hx Patient Social History Alcohol Beverage of Choice: Beer Type Used: Cigars Former Smoker, Quit: Oct 15, 1989 2nd Hand Smoke Exposure: No Recent Foreign Travel: No Contact w/Someone Who Travel: No Recent Hopitalizations: No Immunizations Up To Date PED Vaccines UTD: Yes Date of Pneumonia Vaccine: Jul 24, 2011 Date of Influenza Vaccine: Feb 20, 2018 Seasonal Allergies Seasonal Allergies: No Past Medical History Surgeries: Yes (BACK X5 ) Abdominal, Adenoidectomy, Appendectomy, Bladder Surgery, Bowel Surgery, CABG, Orthopedic, Prostatectomy, Tonsillectomy, Urinary Diversion Respiratory: Yes Pneumonia, Sleep Apnea, COPD Currently Using CPAP: Yes Currently Using BIPAP: No Cardiac: Yes (3 VESSEL CABG 1999; CARDIAC CATH WITH STENTS X 2 IN 2014) Coronary Artery Disease, Heart Murmur, High Cholesterol, Hypertension Neurological: 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) Stroke Reproductive Disorders: No Sexually Transmitted Disease: No HIV/AIDS: No Genitourinary: Yes (PROSTATE CANCER--S/P SURGERY AND SUPRAPUBIC CATHETER) Prostate Problems, Neurogenic Bladder, UTI-Chronic Gastrointestinal: Yes (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) Gastroesophageal Reflux, Gastrointestinal Bleed, Diverticulosis, Esophagitis, Hiatal Hernia, Ulcer Musculoskeletal: Yes (uses walker; CHRONIC NECK AND BACK PAIN) Degenerate Disk Disease, Arthritis, Back Injury, Chronic Back Pain Endocrine: No HEENT: Yes (GLASSES) Loss of Vision: Bilateral Hearing Impairment: Hard of Hearing Cancer: Yes Prostate Did You Recieve Any Treatments: Yes What Type of Treatment Did You: Radiation, Surgical Intervention Psychosocial: Yes Anxiety, Depression Integumentary: Yes Eczema Blood Disorders: No Adverse Reaction/Blood Tranf: No (HAS BLOOD WITH NO REACTION) Family Medical History Abdominal aortic aneurysm 19 MOTHER Dementia G8 SISTER Myocardial infarction 19 FATHER Heart Disease, Hypertension, Other Conditions/Hx Physical Exam Vital Signs Vital Signs - First Documented 11/24/18 13:43 Temp 36.0 Pulse 81 Resp 16 B/P (MAP) 112/55 (74) Pulse Ox 89 O2 Delivery Nasal Cannula O2 Flow Rate 5.00 Capillary Refill : Height/Weight/BMI Height: 5'10.00" Weight: 245lbs. 6.0oz. 111.255354dn; 35.2 BMI Method:Stated General Appearance: WD/WN, no apparent distress HEENT: PERRL/EOMI, normal ENT inspection Respiratory: no respiratory distress, no accessory muscle use, crackles Cardiovascular: regular rate, rhythm, no murmur Gastrointestinal: normal bowel sounds, soft, other (left-sided colostomy in place with a segment of bowel that has prolapsed into the colostomy bag patient patient down here in room 10 with no bowel movement with no colostomy for 4 days no output from colostomy 4 days except vomiting. He consult with schedule for a clear.) Extremities: normal range of motion, non-tender Neurologic/Psychiatric: alert, normal mood/affect Skin: normal color, warm/dry Focused Exam Lactate Level 11/24/18 13:55: Lactic Acid Level 1.31 Lactic Acid Level Laboratory Tests Test 11/24/18 13:55 Lactic Acid Level 1.31 MMOL/L (0.50-2.00) Progress/Results/Core Measures Results/Orders Lab Results Laboratory Tests Test 11/24/18 13:35 11/24/18 13:55 11/24/18 14:09 Range/Units B-Type Natriuretic Peptide 571.0 H <100.0 PG/ML White Blood Count 11.1 H 4.3-11.0 10^3/uL Red Blood Count 3.00 L 4.35-5.85 10^6/uL Hemoglobin 7.8 L 13.3-17.7 G/DL Hematocrit 26 L 40-54 % Mean Corpuscular Volume 86 80-99 FL Mean Corpuscular Hemoglobin 26 25-34 PG Mean Corpuscular Hemoglobin Concent 30 L 32-36 G/DL Red Cell Distribution Width 18.7 H 10.0-14.5 % Platelet Count 427 H 130-400 10^3/uL Mean Platelet Volume 9.1 7.4-10.4 FL Neutrophils (%) (Auto) 72 42-75 % Lymphocytes (%) (Auto) 15 12-44 % Monocytes (%) (Auto) 11 0-12 % Eosinophils (%) (Auto) 2 0-10 % Basophils (%) (Auto) 0 0-10 % Neutrophils # (Auto) 8.0 H 1.8-7.8 X 10^3 Lymphocytes # (Auto) 1.6 1.0-4.0 X 10^3 Monocytes # (Auto) 1.2 H 0.0-1.0 X 10^3 Eosinophils # (Auto) 0.2 0.0-0.3 10^3/uL Basophils # (Auto) 0.0 0.0-0.1 10^3/uL Prothrombin Time 15.2 H 12.2-14.7 SEC INR Comment 1.2 0.8-1.4 Activated Partial Thromboplast Time 42 H 24-35 SEC Urine Color YELLOW Urine Clarity VERY CLOUDY H Urine pH 6 5-9 Urine Specific [place] 1.015 L 1.016-1.022 Urine Protein 3+ H NEGATIVE Urine Glucose (UA) NEGATIVE NEGATIVE Urine Ketones 1+ H NEGATIVE Urine Nitrite NEGATIVE NEGATIVE Urine Bilirubin NEGATIVE NEGATIVE Urine Urobilinogen 1 NORMAL MG/DL Urine Leukocyte Esterase 3+ H NEGATIVE Urine RBC (Auto) 5+ H NEGATIVE Urine RBC NONE /HPF Urine WBC TNTC H /HPF Urine Squamous Epithelial Cells NONE /HPF Urine Crystals NONE /LPF Urine Bacteria LARGE H /HPF Urine Casts NONE /LPF Urine Mucus SMALL H /LPF Urine Culture Indicated YES Sodium Level 137 135-145 MMOL/L Potassium Level 5.2 H 3.6-5.0 MMOL/L Chloride Level 103 98-107 MMOL/L Carbon Dioxide Level 24 21-32 MMOL/L Anion Gap 10 5-14 MMOL/L Blood Urea Nitrogen 18 7-18 MG/DL Creatinine 1.70 H 0.60-1.30 MG/DL Estimat Glomerular Filtration Rate 39 BUN/Creatinine Ratio 11 Glucose Level 113 H 70-105 MG/DL Lactic Acid Level 1.31 0.50-2.00 MMOL/L Calcium Level 9.0 8.5-10.1 MG/DL Corrected Calcium 9.7 8.5-10.1 MG/DL Total Bilirubin 0.4 0.1-1.0 MG/DL Aspartate Amino Transf (AST/SGOT) 22 5-34 U/L Alanine Aminotransferase (ALT/SGPT) 19 0-55 U/L Alkaline Phosphatase 106 40-136 U/L Total Protein 7.0 6.4-8.2 GM/DL Albumin 3.1 L 3.2-4.5 GM/DL Lipase < 4 L 8-78 U/L Blood Gas Puncture Site RT RAD Blood Gas Patient Temperature 36 Arterial Blood pH 7.38 7.37-7.43 Arterial Blood Partial Pressure CO2 43 35-45 MMHG Arterial Blood Partial Pressure O2 64 L 79-93 MMHG Arterial Blood HCO3 25 23-27 MMOL/L Arterial Blood Total CO2 26.2 21.0-31.0 MMOL/L Arterial Blood Oxygen Saturation 92 L 94-100 % Arterial Blood Base Excess 0.1 -2.5-2.5 MMOL/L Erick Test YES-POS Blood Gas Ventilator Setting NO Blood Gas Inspired Oxygen 5 L My Orders Orders - ANY NGUYỄN APRN Cbc With Automated Diff (11/24/18 13:56) Comprehensive Metabolic Panel (11/24/18 13:56) Lipase (11/24/18 13:56) Ua Culture If Indicated (11/24/18 13:56) Ed Iv/Invasive Line Start (11/24/18 13:56) Bipap (Bilevel) Set Up (11/24/18 13:56) Blood Culture (11/24/18 13:56) Lactic Acid Analyzer (11/24/18 13:56) Protime With Inr (11/24/18 13:57) Partial Thromboplastin Time (11/24/18 13:57) Arterial Blood Gas (11/24/18 14:11) Ct Nadja Chest/Noang Abd-Pelv W (11/24/18 14:25) Ceftriaxone For Iv Use (Rocephin For I (11/24/18 14:30) Ns Iv 1000 Ml (Sodium Chloride 0.9%) (11/24/18 14:45) Iohexol Injection (Omnipaque 350 Mg/Ml 1 (11/24/18 15:00) Received Contrast (Hold Metformin- Contr (11/24/18 15:00) Ns (Ivpb) (Sodium Chloride 0.9% Ivpb Bag (11/24/18 15:00) Urine Culture (11/24/18 13:55) Arterial Blood Draw (11/24/18 ) BNP (11/24/18 17:50) Medications Given in ED Current Medications Medications Dose Ordered Sig/Alex Route Start Time Stop Time Status Last Admin Dose Admin Ceftriaxone Sodium 1000 mg/ Sterile Water 10 ml @ 200 mls/hr ONCE ONCE IV 11/24/18 14:30 11/24/18 14:32 DC 11/24/18 14:56 200 MLS/HR Iohexol 100 ml ONCE ONCE IV 11/24/18 15:00 11/24/18 15:53 DC 11/24/18 17:26 85 ML Sodium Chloride 100 ml ONCE ONCE IV 11/24/18 15:00 11/24/18 15:53 DC 11/24/18 17:26 100 ML Vital Signs/I&O 11/24/18 11/24/18 13:43 14:26 Temp 36.0 Pulse 81 72 Resp 16 18 B/P (MAP) 112/55 (74) Pulse Ox 89 90 O2 Delivery Nasal Cannula O2 Flow Rate 5.00 35.00 Departure Communication (Admissions) Time/Spoke to Admitting Phy: 18:[address] Sapp, since the patient is otherwise stable with the exception of hypoxia we'll admit as observation status. The son is concerned because last time he was here his blood pressure went up over 200, he would like to have something ordered in case blood pressure goes up. As such I'll write for hydralazine 10 mg IV every 4 hours as needed for systolic pressure greater than 170. Time/Spoke to Consulting Phy: 18:24 Dr. Mccullough has seen the patient in the emergency room and agrees with plan of care, and also spoken with Dr. Hutton would like to add Solu-Medrol 40 mg IV every 6 hours. I'll transfuse 1 unit of packed red cells tonight, we'll admit to Dr. Canales. The main reason for admission is the hypoxia at 80% SPO2 on his baseline 3 L. The other issues of bleeding ostomy can be followed up at home. CT report did mention possible obstruction of the distal colon as it is decompre ssed, however of course it Is decompressed, he has a diverting colostomy without resection of the remaining colon. Patient wears 3 L of oxygen around the clock at home, however when he wears this year he has 80% with good waveform. As such we put him on BiPAP with much improvement, settings 18/8, 50% FiO2. This significantly helped his oxygenation. 183- Bipap titrated to settings 14/6 with 45% FiO2. Pt still stable, talkative, jovial and in no distress, but quickly desats when Bipap removed and transioned to O2 at baseline 3L. Impression Primary Impression: Hypoxia Additional Impressions: Acute kidney injury recent MRSA pneumonia Anemia Colostomy complication UTI (urinary tract infection) Pulmonary fibrosis Disposition: ADMITTED INPATIENT Condition: Stable Admissions Decision to Admit Reason: Admit from ER (General) Decision to Admit/Date: Nov 24, 2018 Time/Decision to Admit Time: 18:38 Departure-Patient Inst. Referrals: FEDE BUTLER MD (PCP/Family) Primary Care Physician ANY NGUYỄN APRN Nov 24, 2018 14:05
[2018-11-24 14:09] LABS: BASOPHILS % (AUTO) 0 % (0-10); EOSINOPHILS # (AUTO) 0.2 10^3/uL (0.0-0.3); EOSINOPHILS % (AUTO) 2 % (0-10); HEMATOCRIT 26 % (40-54); HEMOGLOBIN 7.8 G/DL (13.3-17.7); LYMPHOCYTES # (AUTO) 1.6 X 10^3 (1.0-4.0); LYMPHOCYTES % (AUTO) 15 % (12-44); MEAN CORPUSCULAR HEMOGLOBIN 26 PG (25-34); MEAN CORPUSCULAR HGB CONC 30 G/DL (32-36); MEAN CORPUSCULAR VOLUME 86 FL (80-99); MEAN PLATELET VOLUME 9.1 FL (7.4-10.4); MONOCYTES # (AUTO) 1.2 X 10^3 (0.0-1.0); MONOCYTES % (AUTO) 11 % (0-12); NEUTROPHILS % (AUTO) 72 % (42-75); PLATELET COUNT 427 10^3/uL (130-400); RED CELL DISTRIBUTION WIDTH 18.7 % (10.0-14.5); WHITE BLOOD COUNT 11.1 10^3/uL (4.3-11.0)
[2018-11-24 14:10] LABS: BILIRUBIN,URINE NEGATIVE (NEGATIVE); CLARITY,URINE VERY CLOUDY; COLOR,URINE YELLOW; GLUCOSE, URINE (UA) NEGATIVE (NEGATIVE); KETONES,URINE 1+ (NEGATIVE); LEUKOCYTE ESTERASE ,URINE 3+ (NEGATIVE); NITRITE,URINE NEGATIVE (NEGATIVE); PH,URINE 6 (5-9); PROTEIN,URINE 3+ (NEGATIVE)
[2018-11-24 14:16] LABS: BACTERIA,URINE LARGE /HPF; WBC,URINE TNTC /HPF
[2018-11-24 14:17] LABS: ABG BASE EXCESS 0.1 MMOL/L (-2.5-2.5); ABG OXYGEN SATURATION 92 % (94-100); ABG PCO2 43 MMHG (35-45); ABG PH 7.38 (7.37-7.43); ABG PO2 64 MMHG (79-93); ABG TCO2 26.2 MMOL/L (21.0-31.0); ALLENS TEST YES-POS; INSPIRED O2 5 L; PATIENT TEMP 36; VENTILATOR NO
[2018-11-24 14:26] VITALS: BP 115/52
[2018-11-24] MEDS ORDERED: cefTRIAXone FOR IV USE 1,000 MG in WATER (STERILE) FOR INJECTION 10 ML IV ONE (14:30)
[2018-11-24 14:31] LABS: ALANINE AMINOTRANSFERASE 19 U/L (0-55); ALBUMIN 3.1 GM/DL (3.2-4.5); ALKALINE PHOSPHATASE 106 U/L (40-136); BILIRUBIN,TOTAL 0.4 MG/DL (0.1-1.0); BUN/CREATININE RATIO 11; CARBON DIOXIDE 24 MMOL/L (21-32); CHLORIDE 103 MMOL/L (98-107); GFR ESTIMATED 39; GLUCOSE 113 MG/DL (70-105); INR 1.2 (0.8-1.4); LIPASE < 4 U/L (8-78); POTASSIUM 5.2 MMOL/L (3.6-5.0); PROTHROMBIN TIME PATIENT 15.2 SEC (12.2-14.7); SODIUM 137 MMOL/L (135-145)
[2018-11-24] MEDS ORDERED: NS IV 1000 ML 1,000 ML IV SCH (14:45)
[2018-11-24] MEDS ORDERED: IOHEXOL 350 MG/ML 100 ML (OMNIPAQUE 350) VIAL IV ONE (15:00)
[2018-11-24] MEDS ORDERED: HOLD METFORMIN - RECEIVED CONTRAST 20 ML VIAL IV SCH (15:00)
[2018-11-24] MEDS ORDERED: NS 100 ML (IVPB) BAG IV ONE (15:00)
--- NOTE | 2018-11-24 18:02 | Diagnostic Imaging Report ---
INDICATION: Shortness of breath and difficulty breathing, history of COPD and pulmonary fibrosis. No bowel movement x3 days. CTA chest performed with IV contrast bolus and axial slices and MIP reconstructions. Comparison made to 08/28/2018. CTA chest findings: Thoracic aorta shows tortuosity but no evidence of dissection or aneurysm. There is mild atherosclerotic change in the thoracic aorta. The study is limited by motion artifact. Pulmonary parenchymal vessels however show no definite filling defects to suggest pulmonary embolic disease. There is no significant mediastinal or hilar adenopathy. There is no pleural or pericardial fluid. There is cardiomegaly. Lung parenchymal windows demonstrate extensive fibrotic changes throughout both lungs which appear worse when compared to the prior study and may indicate superimposed infiltrates. CT abdomen and pelvis findings: The exam is performed post IV contrast. The liver shows mild low-density change compatible with fatty infiltration. There is no focal liver lesion. Gallbladder appears normal. The spleen, adrenals, and pancreas appear unremarkable. Kidneys bilaterally appear normal. There is no retroperitoneal hematoma or mass. There is no ascites or abnormal fluid collection. A suprapubic catheter is seen in the bladder. There are postsurgical changes in the pelvis and lumbar spine. There is a ventral hernia in the epigastric region containing fat. There is a large ventral hernia in the left lower quadrant containing loops of bowel. The distal most portion of the colon is decompressed, partial obstruction not excluded. IMPRESSION: CT chest shows no CT evidence pulmonary emboli or aortic dissection. There is cardiomegaly. There is diffuse interstitial fibrotic change with worsening appearance compared to the prior study which may represent superimposed infiltrate. CT abdomen and pelvis demonstrates no abscess or abnormal fluid collection. There is a ventral hernia in the epigastric region containing fat only. There is a ventral hernia in the left lower quadrant containing loops of bowel. Colonic loops distally appear to be decompressed, partial colonic obstruction not excluded. Consider contrast enema for further evaluation as clinically warranted. There are postsurgical changes in the pelvis. Suprapubic catheter appears to be in place. Dictated by: Dictated on workstation # [id number]
[2018-11-24 18:35] VITALS: BP 143/79
--- NOTE | 2018-11-24 20:00 | NUR ---
JAMILAJALEEL Kelton admitted to room 412-1, with an admitting diagnosis of PULMONARY FIBROSIS, RACQUEL, HYPOXIA, UTI, AND BLLEDINF OSTOMY on 11/24/18 from ED via BED, accompanied by ED STAFF. JALEEL MARINO introduced to surroundings, call light, bed controls, phone, TV, temperature control, lights, meal times, smoking policy, visitor policy, side rail policy, bathrooms and showers. Patient Rights given to patient in the handbook. JALEEL MARINO verbalizes understanding that [facility] is not responsible for the loss or damage to any personal effects or valuables that are kept in the patients posession during their hospitalization. JALEEL MARINO verbalizes understanding of Interdisciplinary Patient Education. Patient and/or family were informed about the Rapid Response Team and its purpose.
--- NOTE | 2018-11-24 20:11 | Consultation - Surgery ---
History of Present Illness History of Present Illness Patient Consulted On(jacqueline/time) 11/24/18 20:06 Date Seen by Provider: Nov 24, 2018 Time Seen by Provider: 18:00 History of Present Illness consult for blood from colostomy and prolapsed from Emiliano Jarquin. patient is a 77 year old male with colostomy done in 2017 due to cauda equina syndrome, also with suprapubic catheter. Patient has not had any output from colostomy for about the last 3 days. He has been having mucous that is blood tinged come from it. He states he has an appointment to see me in the office in near future. Patient states the colostomy prolapses out different amounts depends on the day. Patient having respiratory issues. Currently he is requiring bipap and still having a hard time maintaining adequate o2 sats. Patient also with ventral hernia that he has had a long time. Patient had ct angio chest and abd/pelvic ct no pe or aortic dissection, does have some diffuse interstitial fibrotic changes that have worsened , fat containing ventral hernia and colostomy c herniation with decompressed distal colon which would be expected due to colostomy. Allergies and Home Medications Allergies Uncoded Allergies: SURGICAL TAPE (Adverse Reaction, Intermediate, IRRITATES SKIN, 08/16/10) Home Medications Albuterol Sulfate 2.5 Mg/3 Ml Vial.neb, 2.5 MG NEB Q4H PRN for SHORTNESS OF BREATH, (Reported) Alirocumab 75 Mg/1 Ml Pen.injctr, 75 MG SC EVERY 2 WEEKS, (Reported) Amlodipine Besylate 10 Mg Tablet, 10 MG PO DAILY, (Reported) Aspirin 81 Mg Tablet.dr, 81 MG PO HS, (Reported) Carvedilol 12.5 Mg Tablet, 12.5 MG PO BID, (Reported) Cholecalciferol (Vitamin D3) 400 Unit Capsule, 400 UNIT PO BID, (Reported) Clonidine HCl 0.2 Mg Tablet, 0.2 MG PO BID Prescribed by: FEDE BUTLER on 10/29/18851 Clopidogrel Bisulfate 75 Mg Tablet, 75 MG PO DAILY, (Reported) Diclofenac Sodium 75 Mg Tablet.dr, 75 MG PO BID, (Reported) Docusate Sodium 100 Mg Capsule, 100 MG PO BID Prescribed by: FEDE BUTLER on 10/29/18851 Duloxetine HCl 30 Mg Capsule.dr, 60 MG PO DAILY, (Reported) TAKES 2 (30MG) CAPSULES Furosemide 40 Mg Tablet, 40 MG PO DAILY, (Reported) Gabapentin 600 Mg Tablet, 600 MG PO BID, (Reported) Losartan Potassium 100 Mg Tablet, 100 MG PO DAILY Prescribed by: FEDE BUTLER on 10/29/18851 Melatonin 5 Mg Capsule, 5 MG PO HS, (Reported) Multivitamin 1 Each Tablet, 1 TAB PO DAILY, (Reported) Oxycodone HCl 5 Mg Tablet, 15-20 MG PO DAILY, (Reported) TAKES 3-4 (5 MG) TABLETS Pantoprazole Sodium 40 Mg Tablet.dr, 40 MG PO HS, (Reported) Polyethylene Glycol 3350 17 Gm Powd.pack, 17 GM PO DAILY, (Reported) Potassium Chloride 10 Meq Capsule.er, 10 MEQ PO Q48H Prescribed by: FEDE BUTLER on 10/29/18851 Prednisone 20 Mg Tab, 40 MG PO DAILY@0700 2PILLS DAILY X 5DAYS, THEN DECREASE TO 1PILL DAILY X 10 DAYS THEN 1/2 PILL DAILY THEREAFTER Prescribed by: FEDE BUTLER on 10/29/18851 Patient Home Medication List Home Medication List Reviewed: Yes Past Wspjtxe-Gqsybz-Qyziol Hx Patient Social History Alcohol Use: Denies Use Number of Drinks Today: AA Recreational Drug Use: No Smoking Status: Former Smoker Former Smoker, Quit: Oct 15, 1989 Type Used: Cigars 2nd Hand Smoke Exposure: No Recent Foreign Travel: No Contact w/Someone Who Travel: No Recent Infectious Disease Expo: No Recent Hopitalizations: No Immunizations Up To Date PED Vaccines UTD: Yes Date of Pneumonia Vaccine: Jul 24, 2011 Date of Influenza Vaccine: Feb 20, 2018 Seasonal Allergies Seasonal Allergies: No Surgeries History of Surgeries: Yes (BACK X5 ) Surgeries: Abdominal, Adenoidectomy, Appendectomy, Bladder Surgery, Bowel Surgery, CABG, Orthopedic, Prostatectomy, Tonsillectomy, Urinary Diversion Respiratory History of Respiratory Disorde: Yes Respiratory Disorders: Pneumonia, Sleep Apnea, COPD Cardiovascular History of Cardiac Disorders: Yes (3 VESSEL CABG 1999; CARDIAC CATH WITH STENTS X 2 IN 2013) Cardiac Disorders: Coronary Artery Disease, Heart Murmur, High Cholesterol, Hypertension Neurological History of Neurological Disord: 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) Neurological Disorders: Stroke Reproductive System Hx Reproductive Disorders: No Sexually Transmitted Disease: No HIV/AIDS: No Genitourinary History of Genitourinary Disor: Yes (PROSTATE CANCER--S/P SURGERY AND SUPRAPUBIC CATHETER) Genitourinary Disorders: Prostate Problems, Neurogenic Bladder, UTI-Chronic Gastrointestinal History of Gastrointestinal Di: Yes (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) Gastrointestinal Disorders: Gastroesophageal Reflux, Gastrointestinal Bleed, D iverticulosis, Esophagitis, Hiatal Hernia, Ulcer Musculoskeletal History of Musculoskeletal Dis: Yes (uses walker; CHRONIC NECK AND BACK PAIN) Musculoskeletal Disorders: Degenerate Disk Disease, Arthritis, Back Injury, Chronic Back Pain Endocrine History of Endocrine Disorders: No HEENT History of HEENT Disorders: Yes (GLASSES) Loss of Vision: Bilateral Hearing Impairment: Hard of Hearing Cancer History of Cancer: Yes Cancer: Prostate Psychosocial History of Psychiatric Problem: Yes Behavioral Health Disorders: Anxiety, Depression Integumentary History of Skin or Integumenta: Yes Skin/Integumentary Disorders: Eczema Blood Transfusions History of Blood Disorders: No Adverse Reaction to a Blood Tr: No (HAS BLOOD WITH NO REACTION) Family Medical History Significant Family History: Heart Disease, Hypertension, Other Conditions/Hx Family Medial History: Abdominal aortic aneurysm 19 MOTHER Dementia G8 SISTER Myocardial infarction 19 FATHER Review of Systems-General Constitutional: no symptoms reported EENTM: no symptoms reported Respiratory: see HPI Cardiovascular: no symptoms reported Gastrointestinal: see HPI Genitourinary: no symptoms reported Musculoskeletal: see HPI Skin: no symptoms reported Psychiatric/Neurological: No Symptoms Reported Physical Exam-General Problems Physical Exam Vital Signs Vital Signs - First Documented 11/24/18 13:43 Temp 36.0 Pulse 81 Resp 16 B/P (MAP) 112/55 (74) Pulse Ox 89 O2 Delivery Nasal Cannula O2 Flow Rate 5.00 Capillary Refill : Less Than 3 Seconds General Appearance: mild distress, other (on bipap) HEENT: PERRL/EOMI Neck: non-tender, supple, normal inspection Respiratory: chest non-tender, no respiratory distress, no accessory muscle use Cardiovascular: regular rate, rhythm Gastrointestinal: non tender, soft, no pulsatile mass, other (ventral hernia incarcerated, left lower quadrant colostomy prolapsed, slight blood tinged, stomal herniation) Rectal: deferred Back: no CVA tenderness Extremities: non-tender Neurologic/Psychiatric: alert, normal mood/affect, oriented x 3 Skin: normal color, warm/dry Lymphatic: no adenopathy Data Review Labs Laboratory Tests 11/24/18 13:35: B-Type Natriuretic Peptide 571.0H 11/24/18 13:55: White Blood Count 11.1H, Red Blood Count 3.00L, Hemoglobin 7.8L, Hematocrit 26L, Mean Corpuscular Volume 86, Mean Corpuscular Hemoglobin 26, Mean Corpuscular Hemoglobin Concent 30L, Red Cell Distribution Width 18.7H, Platelet Count 427H, Mean Platelet Volume 9.1, Neutrophils (%) (Auto) 72, Lymphocytes (%) (Auto) 15, Monocytes (%) (Auto) 11, Eosinophils (%) (Auto) 2, Basophils (%) (Auto) 0, Neutrophils # (Auto) 8.0H, Lymphocytes # (Auto) 1.6, Monocytes # (Auto) 1.2H, Eosinophils # (Auto) 0.2, Basophils # (Auto) 0.0, Prothrombin Time 15.2H, INR Comment 1.2, Activated Partial Thromboplast Time 42H, Urine Color YELLOW, Urine Clarity VERY CLOUDYH, Urine pH 6, Urine Specific [place] 1.015L, Urine Protein 3+H, Urine Glucose (UA) NEGATIVE, Urine Ketones 1+H, Urine Nitrite NEGATIVE, Urine Bilirubin NEGATIVE, Urine Urobilinogen 1, Urine Leukocyte Esterase 3+H, Urine RBC (Auto) 5+H, Urine RBC NONE, Urine WBC TNTCH, Urine Squamous Epithelial Cells NONE, Urine Crystals NONE, Urine Bacteria LARGEH, Urine Casts NONE, Urine Mucus SMALLH, Urine Culture Indicated YES, Sodium Level 137, Potassium Level 5.2H, Chloride Level 103, Carbon Dioxide Level 24, Anion Gap 10, Blood Urea Nitrogen 18, Creatinine 1.70H, Estimat Glomerular Filtration Rate 39, BUN/Creatinine Ratio 11, Glucose Level 113H, Lactic Acid Level 1.31, Calcium Level 9.0, Corrected Calcium 9.7, Total Bilirubin 0.4, Aspartate Amino Transf (AST/SGOT) 22, Alanine Aminotransferase (ALT/SGPT) 19, Alkaline Phosphatase 106, Total Protein 7.0, Albumin 3.1L, Lipase < 4L 11/24/18 14:09: Blood Gas Puncture Site RT RAD, Blood Gas Patient Temperature 36, Arterial Blood pH 7.38, Arterial Blood Partial Pressure CO2 43, Arterial Blood Partial Pressure O2 64L, Arterial Blood HCO3 25, Arterial Blood Total CO2 26.2, Arterial Blood Oxygen Saturation 92L, Arterial Blood Base Excess 0.1, Erick Test YES-POS, Blood Gas Ventilator Setting NO, Blood Gas Inspired Oxygen 5 L Assessment/Plan Assessment/Plan Assessment/Plan prolapsed colostomy blood per colostomy stomal herniation ventral hernia incarcerated cauda equina hypoxia anemia patient with multiple comorbities with breathing main issue at this time admitted for respiratory issues transfusing 1 unit of prbc colostomy and herniation not major issue at this time. discussed need to medically optimize his medical issues and then will discuss further plan in regards to colostomy unless becomes emergent issue patient and family understand care plan we discussed and agree with it no surgical intervention, will follow. EWA PAN DO Nov 24, 2018 20:11
[2018-11-24 20:49] VITALS: BP 106/68
[2018-11-24] MEDS ORDERED: PIPERACILLIN/TAZOBACTAM 4.5 GM in NS (IVPB) 100 ML IV ONE (21:15)
[2018-11-24] MEDS ORDERED: ONDANSETRON 4 MG/2 ML (SDV) Z0FRAN IV PRN (21:15)
[2018-11-24] MEDS ORDERED: LACTATED RINGERS 1,000 ML IV SCH (21:15)
[2018-11-24] MEDS: methylPREDNISolone 40 MG/ML (Solu-MEDROL) VIAL IV SCH (22:11)
[2018-11-24] MEDS ORDERED: NS IV 500 ML 500 ML IV SCH (22:45)
[2018-11-24 22:55] VITALS: BP 104/54
[2018-11-24 23:02] VITALS: BP 106/68
[2018-11-24 23:16] VITALS: BP 100/60
[2018-11-25] VITALS (7 sets, daily range): BP systolic 103–165; BP diastolic 51–75
[2018-11-25] MEDS: ACETAMINOPHEN 325 MG TABLET PO PRN ×3 (00:10→20:17)
[2018-11-25] MEDS: RT-ALBUTEROL/IPRATROPIUM 3 ML (DUONEB) VIAL INH SCH ×6 (02:05→22:29)
[2018-11-25] MEDS ORDERED: METR-145 PO (03:28)
[2018-11-25] MEDS: methylPREDNISolone 40 MG/ML (Solu-MEDROL) VIAL IV SCH ×4 (04:21→20:18)
[2018-11-25] MEDS: PIPERACILLIN/TAZOBACTAM (BULK) 4.5 GM in NS (IVPB) 100 ML IV SCH ×3 (04:22→20:18)
[2018-11-25 05:42] LABS: BASOPHILS % (AUTO) 0 % (0-10); EOSINOPHILS % (AUTO) 0 % (0-10); HEMATOCRIT 26 % (40-54); HEMOGLOBIN 7.9 G/DL (13.3-17.7); LYMPHOCYTES # (AUTO) 0.7 X 10^3 (1.0-4.0); LYMPHOCYTES % (AUTO) 7 % (12-44); MEAN CORPUSCULAR HEMOGLOBIN 26 PG (25-34); MEAN CORPUSCULAR HGB CONC 31 G/DL (32-36); MEAN CORPUSCULAR VOLUME 85 FL (80-99); MEAN PLATELET VOLUME 8.9 FL (7.4-10.4); MONOCYTES # (AUTO) 0.1 X 10^3 (0.0-1.0); MONOCYTES % (AUTO) 1 % (0-12); NEUTROPHILS % (AUTO) 92 % (42-75); PLATELET COUNT 409 10^3/uL (130-400); RED CELL DISTRIBUTION WIDTH 18.3 % (10.0-14.5); WHITE BLOOD COUNT 10.8 10^3/uL (4.3-11.0)
[2018-11-25 06:01] LABS: ALBUMIN 2.9 GM/DL (3.2-4.5); BILIRUBIN,TOTAL 0.5 MG/DL (0.1-1.0); CALCIUM 8.5 MG/DL (8.5-10.1); CREATININE SERUM 1.65 MG/DL (0.60-1.30); POTASSIUM 5.5 MMOL/L (3.6-5.0); TOTAL PROTEIN 6.6 GM/DL (6.4-8.2)
--- NOTE | 2018-11-25 06:41 | Pulmonary Consultation ---
History of Present Illness History of Present Illness Date of Consultation 11/25/18 06:36 Time Seen by Provider: 06:36 Date of Admission History of Present Illness 77yo with hx of Cauda equina syndrome resulting in colostomy, suprapubic catheter in 2017 and hx of pulmonary fibrosis presented to ED secondary to decreased output per colostomy over the last 3 days. He has also had bloody mucous from it. Pt was also found to have increased SOB and worsening hypoxia. CT of chest shows increased fibrosis. I am consulted for pulmonary management. Allergies and Home Medications Allergies Uncoded Allergies: SURGICAL TAPE (Adverse Reaction, Intermediate, IRRITATES SKIN, 08/16/10) Home Medications Albuterol Sulfate 2.5 Mg/3 Ml Vial.neb, 2.5 MG NEB Q4H PRN for SHORTNESS OF BREATH, (Reported) Alirocumab 75 Mg/1 Ml Pen.injctr, 75 MG SC EVERY 2 WEEKS, (Reported) Amlodipine Besylate 10 Mg Tablet, 10 MG PO DAILY, (Reported) Aspirin 81 Mg Tablet.dr, 81 MG PO HS, (Reported) Carvedilol 12.5 Mg Tablet, 12.5 MG PO BID, (Reported) Cholecalciferol (Vitamin D3) 400 Unit Capsule, 400 UNIT PO BID, (Reported) Clonidine HCl 0.1 Mg Tablet, 0.1 MG PO BID, (Reported) TKAE 1 TAB TWICE DAILY PRN IF SYSTOLIC BLOOD PRESSURE ABOVE 170 Clopidogrel Bisulfate 75 Mg Tablet, 75 MG PO DAILY, (Reported) Diclofenac Sodium 75 Mg Tablet.dr, 75 MG PO BID, (Reported) Duloxetine HCl 30 Mg Capsule.dr, 60 MG PO DAILY, (Reported) TAKES 2 (30MG) CAPSULES Furosemide 40 Mg Tablet, 40 MG PO DAILY, (Reported) Gabapentin 600 Mg Tablet, 600 MG PO BID, (Reported) Losartan Potassium 50 Mg Tablet, 50 MG PO NOON, (Reported) Melatonin 5 Mg Capsule, 5 MG PO HS, (Reported) Metronidazole 500 Mg Tablet, 500 MG PO TID, (Reported) PICKED UP A 14 DAY SUPPLY ON 11-20-2018 Multivitamin 1 Each Tablet, 1 TAB PO DAILY, (Reported) Oxycodone HCl 5 Mg Tablet, 20 MG PO DAILY, (Reported) TAKES 4 (5 MG) TABLETS TO EQUAL 20MG DAILY Pantoprazole Sodium 40 Mg Tablet.dr, 40 MG PO HS, (Reported) Polyethylene Glycol 3350 17 Gm Powd.pack, 17 GM PO DAILY, (Reported) Potassium Chloride 10 Meq Tablet.er, 10 MEQ PO Q48H, (Reported) Sulfamethoxazole/Trimethoprim 1 Each Tablet, 1 TAB PO BID, (Reported) PICKED UP A 14 DAY SUPPLY ON 11-14-2018 Past Iaqsukf-Owtfiv-Tfpekd Hx Patient Social History Alcohol Use: Denies Use Number of Drinks Today: AA Alcohol Beverage of Choice: Beer Recreational Drug Use: No Smoking Status: Former Smoker Type Used: Cigars Former Smoker, Quit: Oct 15, 1989 2nd Hand Smoke Exposure: No Recent Foreign Travel: No Contact w/Someone Who Travel: No Recent Infectious Disease Expo: No Recent Hopitalizations: No Physical Abuse: No Sexual Abuse: No Mistreated: No Fear: No Immunizations Up To Date PED Vaccines UTD: Yes Date of Pneumonia Vaccine: Jul 24, 2011 Date of Influenza Vaccine: Feb 20, 2018 Seasonal Allergies Seasonal Allergies: No Past Medical History Surgeries: Yes (BACK X5 ) Abdominal, Adenoidectomy, Appendectomy, Bladder Surgery, Bowel Surgery, CABG, Orthopedic, Prostatectomy, Tonsillectomy, Urinary Diversion Respiratory: Yes Pneumonia, Sleep Apnea, COPD Currently Using CPAP: Yes Currently Using BIPAP: No Cardiac: Yes (3 VESSEL CABG 1999; CARDIAC CATH WITH STENTS X 2 IN 2013) Coronary Artery Disease, Heart Murmur, High Cholesterol, Hypertension Neurological: 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) Stroke Reproductive Disorders: No Sexually Transmitted Disease: No HIV/AIDS: No Genitourinary: Yes (PROSTATE CANCER--S/P SURGERY AND SUPRAPUBIC CATHETER) Prostate Problems, Neurogenic Bladder, UTI-Chronic Gastrointestinal: Yes (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) Gastroesophageal Reflux, Gastrointestinal Bleed, Diverticulosis, Esophagitis, Hiatal Hernia, Ulcer Musculoskeletal: Yes (uses walker; CHRONIC NECK AND BACK PAIN) Degenerate Disk Disease, Arthritis, Back Injury, Chronic Back Pain Endocrine: No HEENT: Yes (GLASSES) Loss of Vision: Bilateral Hearing Impairment: Hard of Hearing Cancer: Yes Prostate Did You Recieve Any Treatments: Yes What Type of Treatment Did You: Radiation, Surgical Intervention Psychosocial: Yes Anxiety, Depression Integumentary: Yes Eczema Blood Disorders: No Adverse Reaction/Blood Tranf: No (HAS BLOOD WITH NO REACTION) Family Medical History Abdominal aortic aneurysm 19 MOTHER Dementia G8 SISTER Myocardial infarction 19 FATHER Heart Disease, Hypertension, Other Conditions/Hx Review of Systems Time Seen by Provider: 13:26 Constitutional: Sweats, Weakness, Malaise; No: Fever, Chills Eyes: No: Pain, Vision change, Conjunctivae inflammation, Eyelid inflammation, Other, Redness ENT: Nose congestion; No: Ear pain, Ear discharge, Nose pain, Nose discharge, Mouth pain, Mouth swelling, Throat pain, Throat swelling, Other Respiratory: Cough, Dry, Shortness of breath, SOB with excertion, Wheezing, Sputum; No: Hemoptysis, Pleuritic Pain Cardiovascular: Edema; No: Chest Pain, Palpitations, Orthopnea, Paroxysmal Noc. Dyspnea, Lt Headedness, Other Gastrointestinal: No: Nausea, Vomiting, Abdominal Pain, Diarrhea, Constipation, Melena, Hematochezia, Other Neurological: Weakness, Numbness Sepsis Event Evaluation Height, Weight, BMI Height: 5'10.00" Weight: 245lbs. 6.0oz. [id number]; 32.67 BMI Method:Stated Exam Exam Vital Signs Date Time Temp Pulse Resp B/P (MAP) Pulse Ox O2 Delivery O2 Flow Rate FiO2 11/25/18 06:31 High Flow N/C 10.00 11/25/18 04:13 36.7 74 22 165/75 (105) 95 NIV Bilevel 11/25/18 02:05 72 19 99 40.00 11/25/18 01:44 36.4 69 18 120/51 99 NIV Bilevel 11/25/18 00:15 36.9 67 26 103/58 (73) 97 NIV Bilevel 11/24/18 23:16 35.9 64 18 100/60 99 NIV Bilevel 11/24/18 23:02 36.6 70 95 45 11/24/18 22:55 36.0 64 18 104/54 99 NIV Bilevel 11/24/18 21:50 70 19 95 50.00 11/24/18 20:49 36.6 73 22 106/68 95 NIV Bilevel 11/24/18 20:15 NIV Bilevel 11/24/18 19:42 76 16 128/76 96 NIV Bilevel 11/24/18 18:35 68 19 97 45.00 11/24/18 14:26 72 18 90 35.00 11/24/18 13:43 36.0 81 16 112/55 (74) 89 Nasal Cannula 5.00 I & O 11/25/18 07:00 Intake Total 1460 ml Output Total 600 ml Balance 860 ml Height & Weight Height: 5'10.00" Weight: 245lbs. 6.0oz. [id number]; 32.67 BMI Method:Stated General Appearance: WD/WN, Anxious, Mild Distress HEENT: PERRL/EOMI Neck: Full Range of Motion, Normal Inspection Respiratory: Chest Non Tender, Crackles, Decreased Breath Sounds Cardiovascular: Regular Rate, Rhythm Capillary Refill: Less Than 3 Seconds Gastrointestinal: non tender, soft, no pulsatile mass, other (ventral hernia incarcerated, left lower quadrant colostomy prolapsed, slight blood tinged, stomal herniation) Extremity: Normal Capillary Refill, Pedal Edema Neurologic/Psychiatric: Alert Skin: Normal Color Lymphatic: No Adenopathy Results Lab Laboratory Tests 11/24/18 13:55 11/25/18 05:05 Assessment/Plan Assessment/Plan Worsening SOB with hypoxia -SL IVF -Give lasix 60mg IV x 1 -repeat CXR -Continue Zosyn -Await castillo cultures Hyperkalemia -D/C LR which has KCL -Give lasix 60mg x 1 Hx of pulmonary fibrosis -Monitor prolapsed colostomy with blood per colostomy and stomal herniation/ventral hernia incarcerated -Surgery following Hx of cauda equina anemia s/p 1 unit PRBC -Monitor LAUREN CHIN DO Nov 25, 2018 06:41
[2018-11-25] MEDS ORDERED: FUROSEMIDE 40 MG/4 ML INJ (LASIX) IVP NR (07:26)
[2018-11-25] MEDS ORDERED: VANCOMYCIN 1,750 MG/NS 500 ML IVPB IV NR ×2 (07:59)
[2018-11-25] MEDS: POLYETHYLENE GLYCOL 17 GM (MIRALAX) PACK PO SCH (09:07)
--- NOTE | 2018-11-25 10:29 | Progress Note - Surgery ---
Subjective Date Seen by a Provider: Nov 25, 2018 Time Seen by a Provider: 10:25 Subjective/Events-last exam still with hypoxia, requiring bipap. No abdominal pain. Colostomy minimal output and mainly bloody mucous. hgb stable. Family at bedside. No new complaints. Focused Exam Lactate Level 11/24/18 13:55: Lactic Acid Level 1.31 Objective Exam Vital Signs Date Time Temp Pulse Resp B/P (MAP) Pulse Ox O2 Delivery O2 Flow Rate FiO2 11/25/18 08:20 36.5 93 24 143/65 (91) 94 NIV Bilevel 11/25/18 08:00 94 NIV Bilevel 10.00 11/25/18 07:00 91 11/25/18 06:31 High Flow N/C 10.11/25/18 04:13 36.7 74 22 165/75 (105) 95 NIV Bilevel 11/25/18 02:05 72 19 99 40.00 11/25/18 01:44 36.4 69 18 120/51 99 NIV Bilevel 11/25/18 00:15 36.9 67 26 103/58 (73) 97 NIV Bilevel 11/24/18 23:16 35.9 64 18 100/60 99 NIV Bilevel 11/24/18 23:02 36.6 70 95 45 11/24/18 22:55 36.0 64 18 104/54 99 NIV Bilevel 11/24/18 21:50 70 19 95 50.00 11/24/18 20:49 36.6 73 22 106/68 95 NIV Bilevel 11/24/18 20:15 NIV Bilevel 11/24/18 19:42 76 16 128/76 96 NIV Bilevel 11/24/18 18:35 68 19 97 45.00 11/24/18 14:26 72 18 90 35.00 11/24/18 13:43 36.0 81 16 112/55 (74) 89 Nasal Cannula 5.00 I & O 11/25/18 07:00 Intake Total 1960 ml Output Total 950 ml Balance 1010 ml Capillary Refill : Less Than 3 Seconds General Appearance: No Apparent Distress HEENT: PERRL/EOMI Neck: Non Tender, Supple Respiratory: Chest Non Tender, Other (on bipap) Cardiovascular: Regular Rate, Rhythm Gastrointestinal: non tender, soft, no pulsatile mass, other (ventral hernia incarcerated, left lower quadrant colostomy prolapsed, slight blood tinged, stomal herniation) Extremity: Normal Inspection, Non Tender Neurologic/Psychiatric: Alert, Oriented x3, Normal Mood/Affect Skin: Normal Color, Warm/Dry Lymphatic: No Adenopathy Results Lab Laboratory Tests 11/24/18 13:35: B-Type Natriuretic Peptide 571.0H 11/24/18 13:55: White Blood Count 11.1H, Red Blood Count 3.00L, Hemoglobin 7.8L, Hematocrit 26L, Mean Corpuscular Volume 86, Mean Corpuscular Hemoglobin 26, Mean Corpuscular Hemoglobin Concent 30L, Red Cell Distribution Width 18.7H, Platelet Count 427H, Mean Platelet Volume 9.1, Neutrophils (%) (Auto) 72, Lymphocytes (%) (Auto) 15, Monocytes (%) (Auto) 11, Eosinophils (%) (Auto) 2, Basophils (%) (Auto) 0, Neutrophils # (Auto) 8.0H, Lymphocytes # (Auto) 1.6, Monocytes # (Auto) 1.2H, Eosinophils # (Auto) 0.2, Basophils # (Auto) 0.0, Prothrombin Time 15.2H, INR Comment 1.2, Activated Partial Thromboplast Time 42H, Urine Color YELLOW, Urine Clarity VERY CLOUDYH, Urine pH 6, Urine Specific [place] 1.015L, Urine Protein 3+H, Urine Glucose (UA) NEGATIVE, Urine Ketones 1+H, Urine Nitrite NEGATIVE, Urine Bilirubin NEGATIVE, Urine Urobilinogen 1, Urine Leukocyte Esterase 3+H, Urine RBC (Auto) 5+H, Urine RBC NONE, Urine WBC TNTCH, Urine Squamous Epithelial Cells NONE, Urine Crystals NONE, Urine Bacteria LARGEH, Urine Casts NONE, Urine Mucus SMALLH, Urine Culture Indicated YES, Sodium Level 137, Potassium Level 5.2H, Chloride Level 103, Carbon Dioxide Level 24, Anion Gap 10, Blood Urea Nitrogen 18, Creatinine 1.70H, Estimat Glomerular Filtration Rate 39, BUN/Creatinine Ratio 11, Glucose Level 113H, Lactic Acid Level 1.31, Calcium Level 9.0, Corrected Calcium 9.7, Total Bilirubin 0.4, Aspartate Amino Transf (AST/SGOT) 22, Alanine Aminotransferase (ALT/SGPT) 19, Alkaline Phosphatase 106, Total Protein 7.0, Albumin 3.1L, Lipase < 4L 11/24/18 14:09: Blood Gas Puncture Site RT RAD, Blood Gas Patient Temperature 36, Arterial Blood pH 7.38, Arterial Blood Partial Pressure CO2 43, Arterial Blood Partial Pressure O2 64L, Arterial Blood HCO3 25, Arterial Blood Total CO2 26.2, Arterial Blood Oxygen Saturation 92L, Arterial Blood Base Excess 0.1, [place] Test YES-POS, Blood Gas Ventilator Setting NO, Blood Gas Inspired Oxygen 5 L 11/25/18 05:05: B-Type Natriuretic Peptide 776.3H, White Blood Count 10.8, Red Blood Count 3.03L , Hemoglobin 7.9L, Hematocrit 26L, Mean Corpuscular Volume 85, Mean Corpuscular Hemoglobin 26, Mean Corpuscular Hemoglobin Concent 31L, Red Cell Distribution Width 18.3H, Platelet Count 409H, Mean Platelet Volume 8.9, Neutrophils (%) (Auto) 92H, Lymphocytes (%) (Auto) 7L, Monocytes (%) (Auto) 1, Eosinophils (%) (Auto) 0, Basophils (%) (Auto) 0, Neutrophils # (Auto) 10.0H, Lymphocytes # (Auto) 0.7L, Monocytes # (Auto) 0.1, Eosinophils # (Auto) 0.0, Basophils # (Auto) 0.0, Sodium Level 136, Potassium Level 5.5H, Chloride Level 103, Carbon Dioxide Level 22, Anion Gap 11, Blood Urea Nitrogen 20H, Creatinine 1.65H, Estimat Glomerular Filtration Rate 40, BUN/Creatinine Ratio 12, Glucose Level 179H, Calcium Level 8.5, Corrected Calcium 9.4, Total Bilirubin 0.5, Aspartate Amino Transf (AST/SGOT) 21, Alanine Aminotransferase (ALT/SGPT) 20, Alkaline Phosphatase 87, Total Protein 6.6, Albumin 2.9L Assessment/Plan Assessment/Plan Assessment/Plan prolapsed colostomy blood per colostomy stomal herniation ventral hernia incarcerated cauda equina hypoxia pulmonary fibrosis anemia patient with multiple comorbidities with breathing main issue at this time admitted for respiratory issues colostomy and herniation not major issue at this time. follow hgb and transfuse prn discussed need to medically optimize his medical issues and then will discuss further plan in regards to colostomy unless becomes emergent issue patient and family understand care plan we discussed and agree with it no surgical intervention, will follow. Clinical Quality Measures DVT/VTE Risk/Contraindication: Risk Factor Score Per Nursin RFS Level Per Nursing on Admit: 4+=Very High EWA PAN DO Nov 25, 2018 10:29
--- NOTE | 2018-11-25 11:19 | Progress Note - Surgery ---
Subjective Date Seen by a Provider: Nov 25, 2018 Time Seen by a Provider: 10:25 Subjective/Events-last exam Patient was on High Flow Nasal Canula at 10 L. HgB is stable at 8.9. Pain medication was discussed. Avoiding opiates at this time due to the negative effects that opioids could have on the respiratory and GI system. Consulted patient to continue to work on breathing. Colostomy contained bloody mucous and has minimal output; therefore, does not require management at this time. Review of Systems General: No Chills, No Other (fever) Pulmonary: No Pleuritic Chest Pain; Other (Short of Breath without the O2 nasal canula) Gastrointestinal: No: Nausea, Vomiting Focused Exam Lactate Level 11/24/18 13:55: Lactic Acid Level 1.31 Objective Exam Vital Signs Date Time Temp Pulse Resp B/P (MAP) Pulse Ox O2 Delivery O2 Flow Rate FiO2 11/25/18 10:31 85 19 96 40.00 11/25/18 08:20 36.5 93 24 143/65 (91) 94 NIV Bilevel 11/25/18 08:00 94 NIV Bilevel 10.00 11/25/18 07:00 91 11/25/18 06:31 High Flow N/C 10.11/25/18 04:13 36.7 74 22 165/75 (105) 95 NIV Bilevel 11/25/18 02:05 72 19 99 40.00 11/25/18 01:44 36.4 69 18 120/51 99 NIV Bilevel 11/25/18 00:15 36.9 67 26 103/58 (73) 97 NIV Bilevel 11/24/18 23:16 35.9 64 18 100/60 99 NIV Bilevel 11/24/18 23:02 36.6 70 95 45 11/24/18 22:55 36.0 64 18 104/54 99 NIV Bilevel 11/24/18 21:50 70 19 95 50.00 11/24/18 20:49 36.6 73 22 106/68 95 NIV Bilevel 11/24/18 20:15 NIV Bilevel 11/24/18 19:42 76 16 128/76 96 NIV Bilevel 11/24/18 18:35 68 19 97 45.00 11/24/18 14:26 72 18 90 35.00 11/24/18 13:43 36.0 81 16 112/55 (74) 89 Nasal Cannula 5.00 I & O 11/25/18 07:00 Intake Total 1960 ml Output Total 950 ml Balance 1010 ml Capillary Refill : Less Than 3 Seconds General Appearance: No Apparent Distress HEENT: PERRL/EOMI Neck: Non Tender, Supple Respiratory: Chest Non Tender, Other (on bipap) Cardiovascular: Regular Rate, Rhythm Gastrointestinal: non tender, soft, no pulsatile mass, other (ventral hernia incarcerated, left lower quadrant colostomy prolapsed, slight blood tinged, stomal herniation) Extremity: Normal Inspection, Non Tender Neurologic/Psychiatric: Alert, Oriented x3, Normal Mood/Affect Skin: Normal Color, Warm/Dry Lymphatic: No Adenopathy Results Lab Laboratory Tests 11/24/18 13:35: B-Type Natriuretic Peptide 571.0H 11/24/18 13:55: White Blood Count 11.1H, Red Blood Count 3.00L, Hemoglobin 7.8L, Hematocrit 26L, Mean Corpuscular Volume 86, Mean Corpuscular Hemoglobin 26, Mean Corpuscular Hemoglobin Concent 30L, Red Cell Distribution Width 18.7H, Platelet Count 427H, Mean Platelet Volume 9.1, Neutrophils (%) (Auto) 72, Lymphocytes (%) (Auto) 15, Monocytes (%) (Auto) 11, Eosinophils (%) (Auto) 2, Basophils (%) (Auto) 0, Neutrophils # (Auto) 8.0H, Lymphocytes # (Auto) 1.6, Monocytes # (Auto) 1.2H, Eosinophils # (Auto) 0.2, Basophils # (Auto) 0.0, Prothrombin Time 15.2H, INR Comment 1.2, Activated Partial Thromboplast Time 42H, Urine Color YELLOW, Urine Clarity VERY CLOUDYH, Urine pH 6, Urine Specific [place] 1.015L, Urine Protein 3+H, Urine Glucose (UA) NEGATIVE, Urine Ketones 1+H, Urine Nitrite NEGATIVE, Urine Bilirubin NEGATIVE, Urine Urobilinogen 1, Urine Leukocyte Esterase 3+H, Urine RBC (Auto) 5+H, Urine RBC NONE, Urine WBC TNTCH, Urine Squamous Epithelial Cells NONE, Urine Crystals NONE, Urine Bacteria LARGEH, Urine Casts NONE, Urine Mucus SMALLH, Urine Culture Indicated YES, Sodium Level 137, Potassium Level 5.2H, Chloride Level 103, Carbon Dioxide Level 24, Anion Gap 10, Blood Urea Nitrogen 18, Creatinine 1.70H, Estimat Glomerular Filtration Rate 39, BUN/Creatinine Ratio 11, Glucose Level 113H, Lactic Acid Level 1.31, Calcium Level 9.0, Corrected Calcium 9.7, Total Bilirubin 0.4, Aspartate Amino Transf (AST/SGOT) 22, Alanine Aminotransferase (ALT/SGPT) 19, Alkaline Phosphatase 106, Total Protein 7.0, Albumin 3.1L, Lipase < 4L 11/24/18 14:09: Blood Gas Puncture Site RT RAD, Blood Gas Patient Temperature 36, Arterial Blood pH 7.38, Arterial Blood Partial Pressure CO2 43, Arterial Blood Partial Pressure O2 64L, Arterial Blood HCO3 25, Arterial Blood Total CO2 26.2, Arterial Blood Oxygen Saturation 92L, Arterial Blood Base Excess 0.1, Erick Test YES-POS, Blood Gas Ventilator Setting NO, Blood Gas Inspired Oxygen 5 L 11/25/18 05:05: B-Type Natriuretic Peptide 776.3H, White Blood Count 10.8, Red Blood Count 3.03L , Hemoglobin 7.9L, Hematocrit 26L, Mean Corpuscular Volume 85, Mean Corpuscular Hemoglobin 26, Mean Corpuscular Hemoglobin Concent 31L, Red Cell Distribution Width 18.3H, Platelet Count 409H, Mean Platelet Volume 8.9, Neutrophils (%) (Auto) 92H, Lymphocytes (%) (Auto) 7L, Monocytes (%) (Auto) 1, Eosinophils (%) (Auto) 0, Basophils (%) (Auto) 0, Neutrophils # (Auto) 10.0H, Lymphocytes # (Auto) 0.7L, Monocytes # (Auto) 0.1, Eosinophils # (Auto) 0.0, Basophils # (Auto) 0.0, Sodium Level 136, Potassium Level 5.5H, Chloride Level 103, Carbon Dioxide Level 22, Anion Gap 11, Blood Urea Nitrogen 20H, Creatinine 1.65H, Estimat Glomerular Filtration Rate 40, BUN/Creatinine Ratio 12, Glucose Level 179H, Calcium Level 8.5, Corrected Calcium 9.4, Total Bilirubin 0.5, Aspartate Amino Transf (AST/SGOT) 21, Alanine Aminotransferase (ALT/SGPT) 20, Alkaline Phosphatase 87, Total Protein 6.6, Albumin 2.9L Assessment/Plan Assessment/Plan Assessment/Plan prolapsed colostomy blood per colostomy stomal herniation ventral hernia incarcerated cauda equina hypoxia pulmonary fibrosis anemia patient with multiple comorbidities with breathing main issue at this time admitted for respiratory issues colostomy and herniation not major issue at this time. follow hgb and transfuse prn discussed need to medically optimize his medical issues and then will discuss further plan in regards to colostomy unless becomes emergent issue patient and family understand care plan we discussed and agree with it no surgical intervention, will follow. Clinical Quality Measures DVT/VTE Risk/Contraindication: Risk Factor Score Per Nursin RFS Level Per Nursing on Admit: 4+=Very High R[facility]AL [facility] MED STUDEN Nov 25, 2018 11:19
--- NOTE | 2018-11-25 12:26 | History & Physical-Hospitalist ---
History of Present Illness HPI/Chief Complaint Chief complaint: Dyspnea with hypoxia and blood from colostomy History of present illness: This is a 77-year-old white male with a past medical history of cauda equina syndrome resulting in colostomy and suprapubic catheter in 2017 who presented to the ER with diminished output in colostomy for the past 3 days and then having some bloody mucus noted. He became more dyspneic so he presented to the ER underwent CT angiogram that revealed no pulmonary emboli but it appears that he has a hernia around the colostomy that has become problematic prompting general surgery consultation by Dr. Mccullough. At this current time I have reviewed and restarted all of his home medications and consulted cardiology and I have reviewed pulmonology and lab results. His for 59 years is at the bedside along with his son. Source: patient Exam Limitations: no limitations Date Seen 11/25/18 Time Seen by a Provider: 12:00 Attending Physician Jessie Canales MD PCP Darleen Aburto MD Referring Physician Date of Admission Nov 24, 2018 at 17:49 Home Medications & Allergies Home Medications Reviewed patient Home Medication Reconciliation performed by pharmacy medication reconciliations radiologic technician and/or nursing. Patients Allergies have been reviewed. Allergies Allergies Uncoded Allergies SURGICAL TAPE ( Adverse Reaction, Intermediate, IRRITATES SKIN, 08/16/10) Past Vcdqzyc-Miguqi-Cdoqct Hx Past Med/Social Hx: Reviewed Nursing Past Med/Soc Hx, Reviewed and Corrections made Patient Social History Marrital Status: (59 years) Alcohol Use: Denies Use Number of Drinks Today: AA Alcohol Beverage of Choice: Beer Recreational Drug Use: No Smoking Status: Former Smoker Former Smoker, Quit: Oct 15, 1989 Type Used: Cigars 2nd Hand Smoke Exposure: No Recent Foreign Travel: No Contact w/other who traveled: No Recent Hopitalizations: No Recent Infectious Disease Expo: No Immunizations Up To Date Pediatric: Yes Date of Pneumonia Vaccine: Jul 24, 2011 Date of Influenza Vaccine: Feb 20, 2018 Seasonal Allergies Seasonal Allergies: No Past Medical History Surgeries: Abdominal, Adenoidectomy, Appendectomy, Bladder Surgery, Bowel Surgery, CABG, Orthopedic, Prostatectomy, Tonsillectomy, Urinary Diversion Respiratory: COPD, Pneumonia, Sleep Apnea Currently Using CPAP: Yes Currently Using BIPAP: No Cardiac: Coronary Artery Disease, Heart Murmur, High Cholesterol, Hypertension Neurological: Spinal Cord Injury, Stroke Reproductive: No Sexually Transmitted Disease: No HIV/AIDS: No Genitourinary: Prostate Problems, Neurogenic Bladder, UTI-Chronic Gastrointestinal: Gastroesophageal Reflux, Gastrointestinal Bleed, Diverticulosis, Esophagitis, Hiatal Hernia, Ulcer Musculoskeletal: Degenerate Disk Disease, Arthritis, Back Injury, Chronic Back Pain Loss of Vision: Bilateral Hearing Impairment: Hard of Hearing Cancer: Prostate Did You Recieve Any Treatments: Yes What Type of Treatment Did You: Radiation, Surgical Intervention Psychosocial: Anxiety, Depression Skin/Integumentary: Eczema History of Blood Disorders: No Adverse Reaction to Blood Bach: No (HAS BLOOD WITH NO REACTION) Family History Abdominal aortic aneurysm 19 MOTHER Dementia G8 SISTER Myocardial infarction 19 FATHER Heart Disease, Hypertension, Other Conditions/Hx Review of Systems Constitutional: see HPI EENTM: no symptoms reported Respiratory: dyspnea on exertion Cardiovascular: no symptoms reported Gastrointestinal: constipation, melena Genitourinary: decreased output Musculoskeletal: back pain Skin: other (decubitus ulcers) Psychiatric/Neurological: Depressed All Other Systems Reviewed Negative Unless Noted: Yes Physical Exam Physical Exam Vital Signs Vital Signs - First Documented 11/24/18 11/24/18 13:43 23:02 Temp 36.0 Pulse 81 Resp 16 B/P (MAP) 112/55 (74) Pulse Ox 89 O2 Delivery Nasal Cannula O2 Flow Rate 5.00 FiO2 45 Capillary Refill : Less Than 3 Seconds Height, Weight, BMI Height: 5'10.00" Weight: 245lbs. 6.0oz. [id number]; 32.67 BMI Method:Stated General Appearance: No Apparent Distress, WD/WN, Anxious, Chronically ill Eyes: Right Eye Normal Inspection, Right Eye PERRL HEENT: PERRL/EOMI, Normal ENT Inspection, Pharynx Normal, Moist Mucous Membranes Neck: Full Range of Motion, Normal Inspection, Non Tender Respiratory: Chest Non Tender, No Accessory Muscle Use, No Respiratory Distress, Crackles, Decreased Breath Sounds Cardiovascular: Regular Rate, Rhythm, No Edema, No Gallop, No JVD, No Murmur, Normal Peripheral Pulses Gastrointestinal: Normal Bowel Sounds, No Organomegaly, No Pulsatile Mass, Non Tender, Soft, Hernia (around colostomy) Back: Normal Inspection, No CVA Tenderness, No Vertebral Tenderness Extremity: Normal Capillary Refill, Normal Inspection, Normal Range of Motion, Non Tender, No Calf Tenderness, No Pedal Edema Neurologic/Psychiatric: Alert, Oriented x3, Normal Mood/Affect, animal physiology teacher II-XII Norm as Tested, Motor Weakness (lower extremities) Skin: Normal Color, Warm/Dry Lymphatic: No Adenopathy Results Results/Procedures Labs Laboratory Tests 11/24/18 13:55 11/25/18 05:05 Patient resulted labs reviewed. Assessment/Plan Admission Diagnosis Assessment: Dyspnea with hypoxia no PE on CT angiogram Hyperkalemia Pulmonary fibrosis Prolapsed colostomy with blood per colostomy and stomal herniation/ventral hernia incarcerated-consulted Dr Mccullough Hx of cauda equina with SP catheter and colostomy since 2017 Anemia s/p 1 unit PRBC Decubitus ulcers GABI on CPAP with O2 Plan: Consultants of Jenn Hassan and Jamel are appreciated Wound care evaluation of ulcers Home meds Admission Status: Inpatient Order (span 2 midnights) Reason for Inpatient Admission: Hypoxia and blood in stool with pulmonary fibrosis will require 3 days inpatient Diagnosis/Problems Diagnosis/Problems (1) Hypoxia Status: Acute (2) GABI on CPAP Status: Chronic (3) Suprapubic catheter Status: Chronic (4) Cauda equina syndrome Status: Chronic (5) Decubitus ulcer Status: Acute Qualifiers: Pressure injury location: unspecified location Pressure injury stage: stage 2 Qualified Codes: L89.92 - Pressure ulcer of unspecified site, stage 2 (6) Chronic pain Status: Chronic Qualifiers: Chronic pain type: chronic pain syndrome Qualified Codes: G89.4 - Chronic pain syndrome (7) Pulmonary fibrosis Status: Chronic (8) Anemia Status: Chronic Qualifiers: Anemia type: unspecified type Qualified Codes: D64.9 - Anemia, unspecified (9) UTI (urinary tract infection) Status: Acute Qualifiers: Urinary tract infection type: acute cystitis Hematuria presence: without hematuria Qualified Codes: N30.00 - Acute cystitis without hematuria (10) Acute kidney injury Status: Acute (11) Colostomy complication Status: Acute (12) CHF (congestive heart failure) Status: Chronic Qualifiers: Heart failure type: unspecified (13) CAD (coronary artery disease) Status: Chronic (14) COPD (chronic obstructive pulmonary disease) Status: Chronic Qualifiers: COPD type: unspecified COPD Qualified Codes: J44.9 - Chronic obstructive pulmonary disease, unspecified (15) Weakness generalized Status: Acute Clinical Quality Measures DVT/VTE Risk/Contraindication: Risk Factor Score Per Nursin RFS Level Per Nursing on Admit: 4+=Very High WILFREDO GRADY DO Nov 25, 2018 12:26
[2018-11-25] MEDS ORDERED: RT-ALBUTEROL SULF 2.5 MG/3 ML PRE-MIX VIAL IH PRN (12:30)
--- NOTE | 2018-11-25 12:53 | Consultation-Cardiology ---
HPI-Cardiology Cardiology Consultation Date of Consultation 11/25/18 Date of Admission Time Seen by Provider: 12:47 Indication: Coronary artery disease HPI 77 years old gentleman with extensive history of coronary artery disease, peripheral arterial disease, hypertension that is difficult to control and severe COPD. Patient was discharged home recently, was having constipation for the past 3 days, no bowel movement through with his colostomy bag and had prolapse of his colostomy, admitted. Still having shortness of breath. No chest pain was reported I was called for cardiovascular evaluation. Home Medications & Allergies Allergies: Uncoded Allergies: SURGICAL TAPE (Adverse Reaction, Intermediate, IRRITATES SKIN, 08/16/10) Home Medication List Reviewed: Yes BEP-Hikdzt-Qtuzym Hx Patient Social History Marital Status: Employed/Student: retired Alcohol Use: Denies Use Recreational Drug Use: No Smoking Status: Former Smoker Former smoker/When Quit: Dec 11, 1988 Type Used: Cigars 2nd Hand Smoke Exposure: No Recent Foreign Travel: No Recent Infectious Disease Expo: No Recent Hopitalizations: No Immunizations Up To Date Date of Pneumonia Vaccine: Jul 24, 2011 Date of Influenza Vaccine: Feb 20, 2018 Past Medical History Discussed below Family Medical History Significant Family History: Heart Disease, Hypertension, Other Conditions/Hx Family History: Abdominal aortic aneurysm 19 MOTHER Dementia G8 SISTER Myocardial infarction 19 FATHER Review of Systems-General Review of Systems Constitutional: no symptoms reported, see HPI, malaise, weakness EENTM: see HPI, no symptoms reported Respiratory: see HPI, dyspnea on exertion, orthopnea, short of breath Cardiovascular: see HPI; No chest pain; edema; No Hx of Intervention, No palpitations, No syncope, No vascular heart diseas, No other Gastrointestinal: see HPI, constipation, other (Prolapsed stoma) Genitourinary: no symptoms reported, see HPI Musculoskeletal: see HPI, back pain, joint pain, muscle stiffness, muscle weakness Skin: no symptoms reported, see HPI Psychiatric/Neurological: No Symptoms Reported Reviewed Test Results Reviewed Test Results Lab Laboratory Tests Test 11/24/18 13:35 11/24/18 13:55 11/24/18 14:09 11/25/18 05:05 Range/Units B-Type Natriuretic Peptide 571.0 H 776.3 H <100.0 PG/ML White Blood Count 11.1 H 10.8 4.3-11.0 10^3/uL Red Blood Count 3.00 L 3.03 L 4.35-5.85 10^6/uL Hemoglobin 7.8 L 7.9 L 13.3-17.7 G/DL Hematocrit 26 L 26 L 40-54 % Mean Corpuscular Volume 86 85 80-99 FL Mean Corpuscular Hemoglobin 26 26 25-34 PG Mean Corpuscular Hemoglobin Concent 30 L 31 L 32-36 G/DL Red Cell Distribution Width 18.7 H 18.3 H 10.0-14.5 % Platelet Count 427 H 409 H 130-400 10^3/uL Mean Platelet Volume 9.1 8.9 7.4-10.4 FL Neutrophils (%) (Auto) 72 92 H 42-75 % Lymphocytes (%) (Auto) 15 7 L 12-44 % Monocytes (%) (Auto) 11 1 0-12 % Eosinophils (%) (Auto) 2 0 0-10 % Basophils (%) (Auto) 0 0 0-10 % Neutrophils # (Auto) 8.0 H 10.0 H 1.8-7.8 X 10^3 Lymphocytes # (Auto) 1.6 0.7 L 1.0-4.0 X 10^3 Monocytes # (Auto) 1.2 H 0.1 0.0-1.0 X 10^3 Eosinophils # (Auto) 0.2 0.0 0.0-0.3 10^3/uL Basophils # (Auto) 0.0 0.0 0.0-0.1 10^3/uL Prothrombin Time 15.2 H 12.2-14.7 SEC INR Comment 1.2 0.8-1.4 Activated Partial Thromboplast Time 42 H 24-35 SEC Urine Color YELLOW Urine Clarity VERY CLOUDY H Urine pH 6 5-9 Urine Specific [place] 1.015 L 1.016-1.022 Urine Protein 3+ H NEGATIVE Urine Glucose (UA) NEGATIVE NEGATIVE Urine Ketones 1+ H NEGATIVE Urine Nitrite NEGATIVE NEGATIVE Urine Bilirubin NEGATIVE NEGATIVE Urine Urobilinogen 1 NORMAL MG/DL Urine Leukocyte Esterase 3+ H NEGATIVE Urine RBC (Auto) 5+ H NEGATIVE Urine RBC NONE /HPF Urine WBC TNTC H /HPF Urine Squamous Epithelial Cells NONE /HPF Urine Crystals NONE /LPF Urine Bacteria LARGE H /HPF Urine Casts NONE /LPF Urine Mucus SMALL H /LPF Urine Culture Indicated YES Sodium Level 137 136 135-145 MMOL/L Potassium Level 5.2 H 5.5 H 3.6-5.0 MMOL/L Chloride Level 103 103 98-107 MMOL/L Carbon Dioxide Level 24 22 21-32 MMOL/L Anion Gap 10 11 5-14 MMOL/L Blood Urea Nitrogen 18 20 H 7-18 MG/DL Creatinine 1.70 H 1.65 H 0.60-1.30 MG/DL Estimat Glomerular Filtration Rate 39 40 BUN/Creatinine Ratio 11 12 Glucose Level 113 H 179 H 70-105 MG/DL Lactic Acid Level 1.31 0.50-2.00 MMOL/L Calcium Level 9.0 8.5 8.5-10.1 MG/DL Corrected Calcium 9.7 9.4 8.5-10.1 MG/DL Total Bilirubin 0.4 0.5 0.1-1.0 MG/DL Aspartate Amino Transf (AST/SGOT) 22 21 5-34 U/L Alanine Aminotransferase (ALT/SGPT) 19 20 0-55 U/L Alkaline Phosphatase 106 87 40-136 U/L Total Protein 7.0 6.6 6.4-8.2 GM/DL Albumin 3.1 L 2.9 L 3.2-4.5 GM/DL Lipase < 4 L 8-78 U/L Blood Gas Puncture Site RT RAD Blood Gas Patient Temperature 36 Arterial Blood pH 7.38 7.37-7.43 Arterial Blood Partial Pressure CO2 43 35-45 MMHG Arterial Blood Partial Pressure O2 64 L 79-93 MMHG Arterial Blood HCO3 25 23-27 MMOL/L Arterial Blood Total CO2 26.2 21.0-31.0 MMOL/L Arterial Blood Oxygen Saturation 92 L 94-100 % Arterial Blood Base Excess 0.1 -2.5-2.5 MMOL/L Erick Test YES-POS Blood Gas Ventilator Setting NO Blood Gas Inspired Oxygen 5 L Physical Exam Physical Exam Vital Signs Vital Signs - First Documented 11/24/18 11/24/18 13:43 23:02 Temp 36.0 Pulse 81 Resp 16 B/P (MAP) 112/55 (74) Pulse Ox 89 O2 Delivery Nasal Cannula O2 Flow Rate 5.00 FiO2 45 Capillary Refill : Less Than 3 Seconds Height, Weight, BMI Height: 5'10.00" Weight: 245lbs. 6.0oz. 111.896178wg; 32.67 BMI Method:Stated General Appearance: No Apparent Distress, WD/WN, Mild Distress HEENT: PERRL/EOMI, TMs Normal, Normal ENT Inspection, Pharynx Normal Neck: Full Range of Motion, Normal Inspection, Non Tender, Supple Respiratory: Chest Non Tender, Lungs Clear, Normal Breath Sounds, No Accessory Muscle Use, No Respiratory Distress, Other (on bipap) Cardiovascular: Regular Rate, Rhythm, No Edema, No Gallop, No Murmur, Normal Peripheral Pulses Gastrointestinal: No Organomegaly, Abnormal Bowel Sounds, Other (Prolapsed colostomy bag) Rectal: Normal Exam Extremity: Normal Inspection, Non Tender Neurologic/Psychiatric: Alert, Oriented x3, Normal Mood/Affect Skin: Normal Color, Warm/Dry Lymphatic: No Adenopathy A/P-Cardiology Admission Diagnosis Prolapsed colostomy bag Malignant hypertension COPD Coronary artery disease Assessment/Plan Shortness of breath, COPD, chronic respiratory failure uses C Pap at home, currently starting on a BiPAP. Prolapsed of colostomy, constipation, seen and managed by Dr. Mccullough Hypertension, restart home medication and monitor, patient has resistant hypertension Anemia, worse at this time, monitor by primary care physician Acute on chronic renal failure, monitor renal function Elevated BNP, echocardiogram done in September 2018 showing normal left ventricular size with ejection fraction 55-65 percent, grade 2 diastolic dysfunction, mild mitral regurgitation, aortic valve sclerosis, pulmonary hypertension with PA pressure of 50 mmHg. Hypertensive heart disease. Continue to monitor Coronary artery disease, history of CABG x3 done in 1999 using RODRIGEZ to LAD, vein graft to the first obtuse marginal, vein graft to the left posterolateral branch of the left circumflex artery. Cardiac catheterization was done in November 2013 showing occluded vein graft to the left circumflex artery. Patient had 2 stents in the [place] circumflex artery using 3.516 mm proximally and 3.520 mm at the midportion Promus Premier stents, distally there was 60 percent stenosis which will be monitored. The LAD has significant disease proximally, patient has significantly tortuous thoracic and abdominal aorta. Deferred the the evaluation of the RODRIGEZ due to the use of large amount of contrast. The right coronary artery is a small none dominant artery was not even visualized during this study. Patient had another stent placed in the circumflex artery in [facility] in 2014, no recent workup for follow-up was done. continue to monitor at this time Heavily calcified thoracic and abdominal aorta. CTA done on 01/06/2014 revealed no aneurysm or occlusions or stenosis of abdominal aorta or major branches, continue to monitor Hyperlipidemia, continue to monitor. History of CVA. Continue to monitor. Mild carotid stenosis, nonobstructive disease bilaterally, has been followed in [facility], requesting to transfer is service back to my office. I will evaluate carotid ultrasound as an outpatient COPD/obstructive sleep apnea, Continue to monitor. History of prostate CA with questionable metastasis, patient expressed that it has been followed and managed at . He reported that it was slow growing and the recommendation was conservative management. Cauda equina syndrome, underwent surgery, patient expressed that he did not have full recovery Clinical Quality Measures DVT/VTE Risk/Contraindication: Risk Factor Score Per Nursin RFS Level Per Nursing on Admit: 4+=Very High KIMBERLI BARRETT MD Nov 25, 2018 12:53
--- NOTE | 2018-11-25 13:29 | Diagnostic Imaging Report ---
EXAM: Portable erect AP chest at 7:49 a.m. INDICATION: Shortness of breath FINDINGS: The cardiomegaly, sternotomy wires and surgical clips noted on the prior exam of 10/26/2018 are again evident and unchanged. The alveolar/interstitial pulmonary infiltrate seen previously is again visualized. The CTA chest exam of 11/24/2018 did note chronic pulmonary disease and suggested there may be acute superimposed infiltrates bilaterally. When compared to the prior chest exam of 10/27/2015 the density in the right lung base may be somewhat greater than on the prior study. The mediastinum is prominent but no different than on the prior exam. The osseous structures are intact. IMPRESSION: There is persistent cardiomegaly and chronic pulmonary disease. The slightly increased density in the right lung base may be related to an acute inflammatory/infectious process. A follow-up exam would be recommended for continued evaluation. Dictated by: Dictated on workstation # [id number]
--- NOTE | 2018-11-25 18:39 | NUR ---
RT in room at this time to find patient off off bipap and now 15 l of HFLN. This RN was unaware that patient had removed bipap and transitioned self from Bipap to HFNC at 15 liters and is only maintaining saturation of 91%. Marielle RT counseled patient about the need for bipap. Patient report that he DO NOT want to wear the bipap. Dr. Hutton called by RT and message left, then Dr. Santiago called and she recommended that RT call Dr. Hutton. Marielle RT told Dr. Santiago that he didnt answer, at this time we do not have a return call from Dr. Hutton.
[2018-11-25] MEDS: VITAMIN D3 400 UNITS (CHOLECALCIFEROL) TABLET PO SCH (20:17)
[2018-11-25] MEDS: CARVEDILOL 12.5 MG (COREG) TABLET PO SCH (20:17)
[2018-11-25] MEDS: PANTOPRAZOLE 40 MG (PROTONIX) TAB PO SCH (20:17)
[2018-11-25] MEDS: GABAPENTIN 600 MG (NEURONTIN) TAB PO SCH (20:17)
[2018-11-25] MEDS: cloNIDine 0.2 MG (CATAPRES) TAB PO SCH (20:17)
[2018-11-25] MEDS: MELATONIN 3 MG TABLET PO SCH (20:17)
[2018-11-25] MEDS: ASPIRIN E.C. 81 MG (ECOTRIN) TAB PO SCH (20:18)
[2018-11-26 00:19] VITALS: BP 139/67
[2018-11-26] MEDS: RT-ALBUTEROL/IPRATROPIUM 3 ML (DUONEB) VIAL INH SCH ×6 (02:32→22:38)
[2018-11-26] MEDS: methylPREDNISolone 40 MG/ML (Solu-MEDROL) VIAL IV SCH ×4 (03:31→21:09)
[2018-11-26] MEDS: PIPERACILLIN/TAZOBACTAM (BULK) 4.5 GM in NS (IVPB) 100 ML IV SCH ×3 (03:32→21:08)
[2018-11-26 04:31] VITALS: BP 111/75
[2018-11-26 06:03] LABS: BASOPHILS % (AUTO) 0 % (0-10); EOSINOPHILS % (AUTO) 0 % (0-10); HEMATOCRIT 27 % (40-54); HEMOGLOBIN 8.5 G/DL (13.3-17.7); LYMPHOCYTES # (AUTO) 0.8 X 10^3 (1.0-4.0); LYMPHOCYTES % (AUTO) 6 % (12-44); MEAN CORPUSCULAR HEMOGLOBIN 26 PG (25-34); MEAN CORPUSCULAR HGB CONC 31 G/DL (32-36); MEAN CORPUSCULAR VOLUME 85 FL (80-99); MEAN PLATELET VOLUME 8.7 FL (7.4-10.4); MONOCYTES # (AUTO) 0.5 X 10^3 (0.0-1.0); MONOCYTES % (AUTO) 4 % (0-12); NEUTROPHILS # (AUTO) 13.4 X 10^3 (1.8-7.8); NEUTROPHILS % (AUTO) 91 % (42-75); PLATELET COUNT 401 10^3/uL (130-400); RED CELL DISTRIBUTION WIDTH 18.4 % (10.0-14.5); WHITE BLOOD COUNT 14.7 10^3/uL (4.3-11.0)
[2018-11-26 06:38] LABS: CALCIUM 8.6 MG/DL (8.5-10.1); CREATININE SERUM 1.27 MG/DL (0.60-1.30); MAGNESIUM 2.6 MG/DL (1.6-2.4); POTASSIUM 4.3 MMOL/L (3.6-5.0)
[2018-11-26 08:00] VITALS: BP 129/62
--- NOTE | 2018-11-26 08:18 | Pulmonary Progress Note ---
Subjective Time Seen by a Provider: 12:59 Subjective/Events-last exam Pt is requiring high flow oxygen. Currently on Vapotherm at 70%. He is a DNR per his wishes. Family at bedside during conversation. Denies productive cough. Sepsis Event Evaluation Height, Weight, BMI Height: 5'10.00" Weight: 245lbs. 6.0oz. [id number]; 32.67 BMI Method:Stated Focused Exam Lactate Level 11/24/18 13:55: Lactic Acid Level 1.31 Exam Exam Vital Signs Date Time Temp Pulse Resp B/P (MAP) Pulse Ox O2 Delivery O2 Flow Rate FiO2 11/26/18 07:00 79 11/26/18 06:26 95 Vapotherm 15.00 70 11/26/18 04:31 36.7 89 22 111/75 (87) 93 Vapotherm 15.00 70.00 11/26/18 02:32 96 Vapotherm 20.00 70 11/26/18 00:55 84 11/26/18 00:19 36.8 79 20 139/67 (91) 97 Vapotherm 20.00 70.00 11/25/18 22:29 98 Vapotherm 30.00 80 11/25/18 20:00 36.9 97 18 146/68 (94) 94 Vapotherm 30.00 80.00 11/25/18 20:00 99 Vapotherm 20.00 70 11/25/18 19:00 95 11/25/18 18:58 95 Vapotherm 30.00 100 11/25/18 18:35 91 High Flow N/C 15.00 11/25/18 16:00 36.7 89 20 144/67 (92) 96 NIV Bilevel 11/25/18 14:20 91 27 96 40.00 11/25/18 12:19 90 11/25/18 11:33 36.9 98 18 136/68 (90) 95 NIV Bilevel 11/25/18 10:31 85 19 96 40.00 11/25/18 08:20 36.5 93 24 143/65 (91) 94 NIV Bilevel I & O 11/26/18 07:00 Intake Total 5267.5 ml Output Total 4400 ml Balance 867.5 ml Height & Weight Height: 5'10.00" Weight: 245lbs. 6.0oz. [id number]; 32.67 BMI Method:Stated General Appearance: WD/WN, Anxious, Chronically ill, Mild Distress HEENT: PERRL/EOMI, Normal ENT Inspection, Pharynx Normal, Moist Mucous Membranes Neck: Full Range of Motion, Normal Inspection, Non Tender Respiratory: Chest Non Tender, No Accessory Muscle Use, No Respiratory Distress, Crackles, Decreased Breath Sounds Cardiovascular: Regular Rate, Rhythm, No Edema, No Gallop, No JVD, No Murmur, Normal Peripheral Pulses Capillary Refill: Less Than 3 Seconds Gastrointestinal: non tender, soft, no pulsatile mass, other (ventral hernia incarcerated, left lower quadrant colostomy prolapsed, slight blood tinged, stomal herniation) Extremity: Normal Capillary Refill, Normal Inspection, Normal Range of Motion, Non Tender, No Calf Tenderness, No Pedal Edema Neurologic/Psychiatric: Alert, Oriented x3, Normal 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 -Titrate for Sp02 90-94% -PT is refusing to use BiPAP. -repeat ABG -SL IVF -Check CTA of chest r/o PE -Continue Zosyn, vanco -Await castillo cultures Grade II dyastolic dysfunction -Change Lasix to IV secondary to worsening respiratory failure -Add spironolactone and repeat labs and cxr in AM Hx of pulmonary fibrosis -Monitor prolapsed colostomy with blood per colostomy and stomal herniation/ventral her oneil incarcerated -Surgery following Hx of cauda equina anemia s/p 1 unit PRBC -Monitor -Hb appears to be stable. Pt is high risk for DVT/PE PT states he is a DNR and is at bedside who agrees. - LAUREN CHIN DO Nov 26, 2018 08:17
[2018-11-26] MEDS ORDERED: IOHEXOL 350 MG/ML 150 ML (OMNIPAQUE 350) VIAL IV ONE (08:30)
[2018-11-26] MEDS ORDERED: HOLD METFORMIN - RECEIVED CONTRAST 20 ML VIAL IV SCH (08:30)
[2018-11-26] MEDS ORDERED: NS 100 ML (IVPB) BAG IV ONE (08:30)
--- NOTE | 2018-11-26 08:34 | Progress Note ---
Subjective Date Seen by a Provider: Nov 26, 2018 Time Seen by a Provider: 08:40 Subjective/Events-last exam PT REPORTS THAT HE IS FEELING A LITTLE BIT BETTER UPON MY EVALUATION OF HIM THAN HE DID EARLY THIS MORNING. HE STATES THAT HE WAS ON BIPAP LAST NIGHT AND THEN HE STARTED TO HAVE SEVERE ANXIETY WITH SHORTNESS OF BREATH. HE DENIES CHEST PAIN, NAUSEA, VOMITING, HE DOES HAVE SOME ABDOMINAL PAIN - BUT IT HAS IMPROVED - HE REPORTS THAT IT WAS ACROSS HIS LOWER ABDOMEN FROM HIS OSTOMY ON THE LEFT TO THE RIGHT SIDE. Review of Systems General: Fatigue, Malaise HEENT: No Head Aches Pulmonary: Dyspnea, Cough Cardiovascular: No: Chest Pain, Palpitations Gastrointestinal: Abdominal Pain; No: Nausea Genitourinary: Other (NAPIER CATHETER IN PLACE) Musculoskeletal: back pain, leg pain Neurological: Weakness Focused Exam Lactate Level 11/24/18 13:55: Lactic Acid Level 1.31 Objective Exam Last Set of Vital Signs Vital Signs Date Time Temp Pulse Resp B/P (MAP) Pulse Ox O2 Delivery O2 Flow Rate FiO2 11/26/18 07:00 79 11/26/18 06:26 95 Vapotherm 15.00 70 11/26/18 04:31 36.7 22 111/75 (87) Capillary Refill : Less Than 3 Seconds I&O Intake and Output 11/26/18 00:00 Intake Total 5597.5 ml Output Total 4250 ml Balance 1347.5 ml Intake Oral 3100 ml IV Total 2497.5 ml Output Urine Total 4100 ml Stool Total 150 ml General: Alert, Oriented X3, Cooperative, No Acute Distress HEENT: Atraumatic, PERRLA, Mucous Memb Moist/[place] Neck: Supple Lungs: Other (DECREASED AIR MOVEMENT IN THE BASES BILATERALLY WITH CRACKLES IN THE BASES TO MID-LUNGS) Heart: Regular Rate Abdomen: Normal Bowel Sounds, Soft, No Tenderness Extremities: No Cyanosis, Other (TRACE EDEMA BILATERAL LOWER LEGS) Neuro: Cranial Nerves 3-12 NL Psych/Mental Status: Mental Status NL, Mood NL Results Lab Laboratory Tests 11/26/18 05:50: White Blood Count 14.7H, Red Blood Count 3.23L, Hemoglobin 8.5L, Hematocrit 27L, Mean Corpuscular Volume 85, Mean Corpuscular Hemoglobin 26, Mean Corpuscular Hemoglobin Concent 31L, Red Cell Distribution Width 18.4H, Platelet Count 401H, Mean Platelet Volume 8.7, Neutrophils (%) (Auto) 91H, Lymphocytes (%) (Auto) 6L, Monocytes (%) (Auto) 4, Eosinophils (%) (Auto) 0, Basophils (%) (Auto) 0, Neutrophils # (Auto) 13.4H, Lymphocytes # (Auto) 0.8L, Monocytes # (Auto) 0.5, Eosinophils # (Auto) 0.0, Basophils # (Auto) 0.0, Sodium Level 138, Potassium Level 4.3, Chloride Level 105, Carbon Dioxide Level 25, Anion Gap 8, Blood Urea Nitrogen 21H, Creatinine 1.27, Estimat Glomerular Filtration Rate 55, BUN/Creatinine Ratio 17, Glucose Level 155H, Calcium Level 8.6, Magnesium Level 2.6H Microbiology 11/24/18 Blood Culture - Preliminary, Resulted No growth 11/24/18 Urine Culture - Final, Complete 3 or more isolates Assessment/Plan Assessment/Plan Assess & Plan/Chief Complaint PULMONARY FIBROSIS WITH WORSENING DYSPNEA AND HYPOXEMIA WITH CHRONIC OXYGEN THERAPY PROLAPSED COLOSTOMY BLOOD PER COLOSTOMY INCARCERATED VENTRAL/STOMAL HERNIA CHRONIC ANEMIA CHRONIC DECUBITUS ULCERS CHRONIC OBSTRUCTIVE SLEEP APNEA CORONARY ARTERY DISEASE 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 CHIN - THE CT ON ADMISSION WAS NEGATIVE, BUT DUE TO ALBINA'S HIGH RISK OF CLOT/PE - AND HIS SEVERE SYMPTOMS EARLY THIS MORNING - A REPEAT CTA IS TO BE DONE THIS MORNING. - CONTINUE WITH VAPOTHERM, WEAN ABLE PROLAPSED COLOSTOMY AND BLOOD PER COLOSTOMY WITH INCARCERATED VENTRAL/STOMAL HERNIA - DEFER TO DR. PAN - AT THIS TIME WE ARE WAITING ON ANY SURGICAL INTERVENTION DUE TO HIS PULMONARY STATUS CHRONIC ANEMIA - MONITOR, TRANSFUSE IF NEEDED CHRONIC DECUBITUS ULCERS - WOUND CARE TO BE CONSULTED CHRONIC OBSTRUCTIVE SLEEP APNEA - THE PT DID NOT TOLERATE THE BIPAP LAST NIGHT - WAIT ON RE-INITIATION OF THIS TREATMENT CORONARY ARTERY DISEASE - DR. BARRETT CONSULTED - APPRECIATE HIS INPUT ON THIS COMPLICATED PATIENT. CAUDA EQUINA SYNDROME - AT THIS TIME - WE WILL WAIT ON ANY THERAPY - DUE TO PT'S PULMONARY DECONDITIONING AND INABILITY TO LEAVE ROOM. CHRONIC INDWELLING SUPRAPUBIC CATHETER LEUKOCYTOSIS - MONITOR WBC'S, PT ON SOLUMEDROL 40MG IV Q6 HR HYPERKALEMIA (NOW RESOLVED) HYPERMAGNESEMIA - MONITOR MAGNESIUM LEVEL TOMORROW OVERALL PROGNOSIS [employer]ES IS A POOR PROGNOSIS DUE TO HIS MULTIPLE CO-MORBID CONDITIONS. I HAVE HAD A CONVERSATION WITH ALBINA IN THE OFFICE AT HIS LAST OFFICE VISIT - INSTIGATED BY ALBINA HIMSELF. HE UNDERSTANDS THAT WITH RECURRENT INFECTIONS, HIS RISK OF GREATLY INCREASES AND HE HAS HIGH RISK FOR IN THE NEXT 6-12 MONTHS. Clinical Quality Measures DVT/VTE Risk/Contraindication: Risk Factor Score Per Nursin RFS Level Per Nursing on Admit: 4+=Very High FEDE BUTLER MD Nov 26, 2018 08:34
--- NOTE | 2018-11-26 08:36 | Cardiology Progress Note ---
Subjective Date Seen by Provider: Nov 26, 2018 Time Seen by Provider: 08:34 Subjective/Events-last exam Patient in bed, complaining of dyspnea and fatigue this morning. Denies any chest pain. Patient had transient episode of severe shortness of breath, has improved at this time, using nasal cannula. No chest pain. Review of Systems General: No Chills, No Night Sweats, No Fatigue, No Malaise, No Appetite, No Other HEENT: No Head Aches, No Visual Changes, No Eye Pain, No Ear Pain, No Dysphasia, No Sinus Congestion, No Post Nasal Drip, No Sore Throat, No Other Pulmonary: Dyspnea; No Cough, No Pleuritic Chest Pain, No Other Cardiovascular: Edema; No: Chest Pain, Palpitations, Orthopnea, Paroxysmal Noc. Dyspnea, Lt Headedness, Other Focused Exam Lactate Level 11/24/18 13:55: Lactic Acid Level 1.31 Objective-Cardiology Exam Last Set of Vital Signs Vital Signs 11/26/18 11/26/18 11/26/18 04:31 06:26 08:00 Temp 36.6 Pulse 85 Resp 20 B/P (MAP) 111/75 (87) Pulse Ox 93 O2 Delivery Vapotherm O2 Flow Rate 15.00 70.00 FiO2 70 Capillary Refill : Less Than 3 Seconds I&O Intake and Output 11/26/18 00:00 Intake Total 5597.5 ml Output Total 4250 ml Balance 1347.5 ml Intake Oral 3100 ml IV Total 2497.5 ml Output Urine Total 4100 ml Stool Total 150 ml General: Alert, Oriented X3, Cooperative HEENT: Atraumatic, PERRLA Neck: Supple, No JVD, No Thyromegaly Lungs: Other (diminished breath sounds bibasilarly) Heart: Regular Rate, Normal S1, Normal S2 Abdomen: Normal Bowel Sounds, Soft, Other (colostomy bag) Skin: No Rashes, No Significant Lesion Neuro: Normal Speech, Cranial Nerves 3-12 NL Psych/Mental Status: Mental Status NL, Mood NL Results Lab Laboratory Tests 11/26/18 05:50 A/P-Cardiology Admission Diagnosis Prolapsed colostomy bag Malignant hypertension COPD Coronary artery disease Assessment/Plan Shortness of breath, COPD, chronic respiratory failure uses C Pap at home, had an episode of severe shortness of breath earlier this morning, having a repeat CT angiogram done today Prolapsed of colostomy, constipation, seen and managed by Dr. Mccullough Hypertension, patient has resistant hypertension, continue to monitor blood pressure. Anemia, monitor by primary care physician , monitor H&H Acute on chronic renal failure, monitor renal function Elevated BNP, echocardiogram done in September 2018 showing normal left ventricular size with ejection fraction 55-65 percent, grade 2 diastolic dysfunction, mild mitral regurgitation, aortic valve sclerosis, pulmonary hypertension with PA pressure of 50 mmHg. Hypertensive heart disease. Continue to monitor Coronary artery disease, history of CABG x3 done in 1999 using RODRIGEZ to LAD, vein graft to the first obtuse marginal, vein graft to the left posterolateral branch of the left circumflex artery. Cardiac catheterization was done in November 2013 showing occluded vein graft to the left circumflex artery. Patient had 2 stents in the jena circumflex artery using 3.516 mm proximally and 3.520 mm at the midportion Promus Premier stents, distally there was 60 percent stenosis which will be monitored. The LAD has significant disease proximally, patient has significantly tortuous thoracic and abdominal aorta. Deferred the the evaluation of the RODRIGEZ due to the use of large amount of contrast. The right coronary artery is a small none dominant artery was not even visualized during this study. Patient had another stent placed in the circumflex artery in [facility] in 2014, no recent workup for follow-up was done. continue to monitor at this time Heavily calcified thoracic and abdominal aorta. CTA done on 01/06/2014 revealed no aneurysm or occlusions or stenosis of abdominal aorta or major branches, continue to monitor Hyperlipidemia, continue to monitor. History of CVA. Continue to monitor. Mild carotid stenosis, nonobstructive disease bilaterally, has been followed in [facility], requesting to transfer is service back to my office. I will evaluate carotid ultrasound as an outpatient COPD/obstructive sleep apnea, Continue to monitor. History of prostate CA with questionable metastasis, patient expressed that it has been followed and managed at . He reported that it was slow growing and the recommendation was conservative management. Cauda equina syndrome, underwent surgery, patient expressed that he did not have full recovery Patient was seen and evaluated with Debra, examination performed, management plan was discussed, agree with the current scribed note, I made few changes to the note using Italic font Clinical Quality Measures DVT/VTE Risk/Contraindication: Risk Factor Score Per Nursin RFS Level Per Nursing on Admit: 4+=Very High DEBRA WATERS Nov 26, 2018 08:36 KIMBERLI BARRETT MD Nov 26, 2018 09:28
[2018-11-26] MEDS: SPIRONOLACTONE 25 MG (ALDACTONE) TAB PO SCH (08:40)
[2018-11-26] MEDS: cloNIDine 0.2 MG (CATAPRES) TAB PO SCH ×2 (08:41→21:08)
[2018-11-26] MEDS: DULoxetine 30 MG (CYMBALTA) CAP PO SCH (08:42)
[2018-11-26] MEDS: CARVEDILOL 12.5 MG (COREG) TABLET PO SCH ×2 (08:42→21:08)
[2018-11-26] MEDS: POLYETHYLENE GLYCOL 17 GM (MIRALAX) PACK PO SCH (08:42)
[2018-11-26] MEDS: VANCOMYCIN 1500 MG/NS 500 ML IVPB IV SCH ×2 (08:42)
[2018-11-26] MEDS: CLOPIDOGREL 75 MG (PLAVIX) TABLET PO SCH (08:42)
[2018-11-26] MEDS: VITAMIN D3 400 UNITS (CHOLECALCIFEROL) TABLET PO SCH ×2 (08:42→21:08)
[2018-11-26] MEDS: GABAPENTIN 600 MG (NEURONTIN) TAB PO SCH ×2 (08:42→21:08)
[2018-11-26 08:43] LABS: ABG BASE EXCESS 1.8 MMOL/L (-2.5-2.5); ABG OXYGEN SATURATION 90 % (94-100); ABG PCO2 36 MMHG (35-45); ABG PH 7.46 (7.37-7.43); ABG PO2 55 MMHG (79-93); ABG TCO2 26.4 MMOL/L (21.0-31.0)
[2018-11-26] MEDS: ENOXAPARIN 40 MG/0.4 ML (LOVENOX) SYR SC SCH (08:43)
[2018-11-26 08:44] LABS: ALLENS TEST YES-POS; INSPIRED O2 15L; PATIENT TEMP 36.6; VENTILATOR NO
[2018-11-26] MEDS: MULTIVIT W/MINERALS TAB (THERAGRAN M) PO SCH (08:45)
[2018-11-26] MEDS: amLODIPine 10 MG (NORVASC) TAB PO SCH (08:45)
[2018-11-26] MEDS ORDERED: FUROSEMIDE 40 MG (LASIX) TAB PO SCH (09:00)
[2018-11-26] MEDS ORDERED: FUROSEMIDE 40 MG/4 ML INJ (LASIX) IVP SCH (09:00)
--- NOTE | 2018-11-26 09:00 | NUR ---
Dr. CHIN NOTFIED OF [facility]'s
[2018-11-26] MEDS ORDERED: LOSA50TA63 PO (09:37)
[2018-11-26] MEDS ORDERED: CLON0.1T PO (09:44)
[2018-11-26] MEDS ORDERED: SULF-222 PO (09:45)
[2018-11-26] MEDS ORDERED: POTA10TA10 PO (09:48)
--- NOTE | 2018-11-26 09:49 | NUR ---
SPOKE WITH PT (HE HAD A MED LIST) WELL GOING THRU THE EXT MED HISTORY TO COMPLETE THE MED REC. PT WAS ABLE TO TELL ME HOW HE TAKES EACH MED, AND THAT MATCHED THE INFORMATION ON THE EXT MED HISTORY. I CALLED ASHLEY TO VERIFY THE OXYCODONE. ON 08-25-2018 HE RECEIVED 300 TABS AND ONLY TAKES 4 PER DAY (TAKEN AT THE SAME TIME).
--- NOTE | 2018-11-26 09:56 | Diagnostic Imaging Report ---
PROCEDURE: CT angiography of the chest with contrast. TECHNIQUE: Multiple contiguous axial images were obtained through the chest after uneventful bolus administration of intravenous contrast. 3D reconstructed CTA MIP acquisitions were also performed. Auto Exposure Controls were utilized during the CT exam to meet ALARA standards for radiation dose reduction. INDICATION: Cough with shortness of air. COMPARISON: 11/24/2018. FINDINGS: There is no central pulmonary arterial embolus. The peripheral branch intraluminal opacification is technically limited. Five lobed chronic interstitial lung disease is present. Superimposed groundglass opacities bilaterally have mildly increased from the recent study and have largely developed from the exam of 06/22/2018. There is no effusion. The aorta is patent and nonaneurysmal. There are coronary arterial atherosclerotic vascular calcifications. Some chronic shotty mediastinal lymph nodes are stable. Degenerative changes throughout the thoracic spine are present with chronic abnormal widening of the anterior T12-L1 disc space. The anterior endplate is almost 2 cm, unchanged from the comparison studies. There is a hiatal hernia. The upper abdominal structures are partially visualized and appear nonacute. IMPRESSION: 1. No demonstrated central PE but peripheral branch opacification is technically limited. 2. Chronic interstitial lung disease is present; however, worsening superimposed groundglass infiltrates involve all 5 lobes without evidence for abscess or effusion. 3. Stable cardiomegaly and small hiatal hernia. 4. Chronic advanced degenerative changes throughout the spine and shoulders with unchanged chronic abnormal widening of the anterior articular endplates across the thoracolumbar junction with very severe chronic stenosis, unchanged from the prior exams. Dictated by: Dictated on workstation # [id number]
--- NOTE | 2018-11-26 10:51 | NUR ---
IRF Evaluation Order received to evaluate patient for the ARU; however, evaluation on hold due to patient's pulmonary deconditioning, i.e., vapotherm. Will continue to follow. Thank you for this referral.
--- NOTE | 2018-11-26 11:18 | Diagnostic Imaging Report ---
PROCEDURE: US Venous Lower Ext Armando. TECHNIQUE: Multiple real-time grayscale images were obtained over the lower extremities in various projections, bilaterally. Additional duplex Doppler and color Doppler images were also obtained. INDICATION: Pulmonary edema. There is no evidence of a right or left lower extremity DVT. Both lower extremity deep venous systems demonstrate normal compressibility with normal response to augmentation and valsalva. No fluid collection or mass is seen. IMPRESSION: No evidence of right or left lower extremity DVT. Dictated by: Dictated on workstation # [id number]
[2018-11-26 12:00] VITALS: BP 104/56
--- NOTE | 2018-11-26 12:18 | Physical Therapy Evaluation ---
PT Evaluation-General Medical Diagnosis Admission Date Nov 25, 2018 at 12:26 Medical Diagnosis: pulmonary fibrosis/RACQUEL/hypoxia Onset Date: Nov 25, 2018 Therapy Diagnosis Therapy Diagnosis: debility/weakness Height/Weight Height (Feet): 5 Height (Inches): 10.00 Weight (Pounds): 245 Weight (Ounces): 6.0 Precautions Precautions/Isolations: Fall Prevention, Standard Precautions Referral Physician: Pamela Reason for Referral: Evaluation/Treatment Medical History Pertinent Medical History: CABG, CAD, CVA, GERD, HTN Additional Medical History cauda equina Current History EMS secondary to no output from colostomy Reviewed History: Yes Social History Home: Single Level Current Living Status: Spouse Entry Into Home: Ramp Prior Prior Level of Function Therapy Quality Codes: 6 Independent with activity with or without an assistive device 5 Patient requires set up or clean up by helper. Patient completes activity by themselves 4 Supervision or touching assist (CGA). [place] provide cues , steadying assist 3 The helper provides less than half the effort to complete the activity 2 The helper provides more than half the effort to complete the activity 1 Dependent. The helper does all the effort to complete an activity 7 Patient refused to complete or attempt activity 9 The patient did not perform the activity before the current illness or injury 88 Not attempted due to Medical conditions or safety concerns Bed Mobility: 5 Transfers (B,C,W/C): 5 Gait: 9 Stairs: 9 Wheelchair Mobility: 5 Indoor Mobility (Ambulation): Not Applicalbe Stairs: Not Applicalbe Prior Devices Use: Motorized wheelchair PT Evaluation-Current Subjective Patient is currently on vapotherm. Agrees to PT. Pain Numeric Pain Scale: 0-No Pain Location: No Pain Reported Objective Patient Orientation: Normal For Age Problem Solving: Fair Attachments: Oxygen (vapotherm), Suprapubic Catheter ROM/Strength ROM Lower Extremities bilateral LE WFL Strength Lower Extremities 3+/5 grossly bilateral LE Integumentary/Posture Integumentary refer to nursing notes Posture WFL Neuromuscular (Tone, Coordination, Reflexes) grossly intact Sensory Vision: Wears Glasses Hearing: Functional Sensation Right Lower Extremit: Impaired Sensation Left Lower Extremity: Impaired Transfers Roll Left to Right (QC): 5 Sit to Lying (QC): 5 Lying to Sitting/Side of Bed(Q: 5 Sit to Stand (QC): 5 Patient is able to perform bed mobility and transfers without difficulty Balance Sitting Static: Normal Sitting Dynamic: Normal Standing Static: Fair Standing Dynamic: Fair Assessment/Needs 77 y.o. male, will benefit from PT to address pulmonary function with functional strengthening and mobility. Patient SAO2 decreases to 75% on vapotherm 85%/21L with RN notified. SAO2 returned to 88% after 8 min. Rehab Potential: Guarded PT Bullet Swaging Machine Adjuster Goals Fdc Goals PT Bullet Swaging Machine Adjuster Goals Time Frame: Dec 15, 2018 Sit to Lying (QC): 5 Lying-Sitting on Side/Bed(QC): 5 Sit to Stand (QC): 5 Roll Left to Right (QC): 5 Chair/Nwt-[id number]-Ilevu Xfer(QC): 5 Car Transfer (QC): 5 Does the Patient Walk: No and Walking Goal NOT indicated PT Plan Problem List Problem List: Activity Tolerance, Functional Strength, Safety, Balance, Transfer, Bed Mobility Treatment/Plan Treatment Plan: Continue Plan of Care Treatment Plan: Bed Mobility, Education, Functional Activity Razia, Functional Strength, Safety, Therapeutic Exercise, Transfers Treatment Duration: Dec 15, 2018 Frequency: 6 times per week Estimated Hrs Per Day: .25 hour per day Patient and/or Family Agrees t: Yes Time/GCodes Time In: 1140 Time Out: 1155 Total Billed Treatment Time: 15 Total Billed Treatment 1 visit EVModC 15 min DELANO MONTGOMERY PT Nov 26, 2018 12:18
--- NOTE | 2018-11-26 14:05 | NUR ---
Pastoral Care Visit.
--- NOTE | 2018-11-26 15:01 | Occ Therapy Progress Note ---
Therapy Progress Note OT order received, chart reviewed. Previous OT attempted evaluation this a.m. Pt. in testing. This OT comes back in p.m. Pt. with another clinician. Will check back as time allows. 1, visit 1445 SUNNY PAREDES OT Nov 26, 2018 15:01
[2018-11-26 15:59] VITALS: BP 102/63
[2018-11-26] MEDS: ACETAMINOPHEN 325 MG TABLET PO PRN (16:09)
--- NOTE | 2018-11-26 19:54 | Progress Note - Surgery ---
Subjective Date Seen by a Provider: Nov 26, 2018 Time Seen by a Provider: 08:15 Subjective/Events-last exam Patient was not feeling well today. Complains of fatigue and shortness of breath. Does not report of any pain. Patient refusing bipap, but using High flow nasal cannula and was order vapotherm. Review of Systems General: No Chills; Fatigue; No Other (fever) Pulmonary: Dyspnea; No Cough Cardiovascular: No: Chest Pain Focused Exam Lactate Level 11/24/18 13:55: Lactic Acid Level 1.31 Objective Exam Vital Signs Date Time Temp Pulse Resp B/P (MAP) Pulse Ox O2 Delivery O2 Flow Rate FiO2 11/26/18 18:34 91 Vapotherm 30.00 70 11/26/18 15:59 36.6 76 21 102/63 (76) 96 Vapotherm 25.00 85.00 11/26/18 14:30 75 24 97 50.00 11/26/18 13:55 92 Vapotherm 20.00 60 11/26/18 13:00 78 11/26/18 12:00 36.2 82 22 104/56 (72) 92 Vapotherm 25.00 85.00 11/26/18 08:00 Vapotherm 11/26/18 08:00 36.6 85 20 129/62 (84) 93 Vapotherm 15.00 70.00 11/26/18 07:00 79 11/26/18 06:26 95 Vapotherm 15.00 70 11/26/18 04:31 36.7 89 22 111/75 (87) 93 Vapotherm 15.00 70.00 11/26/18 02:32 96 Vapotherm 20.00 70 11/26/18 00:55 84 11/26/18 00:19 36.8 79 20 139/67 (91) 97 Vapotherm 20.00 70.00 11/25/18 22:29 98 Vapotherm 30.00 80 11/25/18 20:00 36.9 97 18 146/68 (94) 94 Vapotherm 30.00 80.00 11/25/18 20:00 99 Vapotherm 20.00 70 I & O 11/26/18 07:00 Intake Total 5267.5 ml Output Total 4400 ml Balance 867.5 ml Capillary Refill : Less Than 3 Seconds General Appearance: WD/WN, Mild Distress (due to nurse gathering ABGs and patients dislike for needles. ) HEENT: PERRL/EOMI Neck: Full Range of Motion, Normal Inspection Respiratory: Chest Non Tender, Other (Increased respiratory effort. ) Cardiovascular: Regular Rate, Rhythm, No Murmur Gastrointestinal: non tender, soft, other (ventral hernia incarcerated, left lower quadrant colostomy prolapsed, slight blood tinged, stomal herniation) Neurologic/Psychiatric: Alert Skin: Normal Color Lymphatic: No Adenopathy Results Lab Laboratory Tests 11/26/18 05:50: White Blood Count 14.7H, Red Blood Count 3.23L, Hemoglobin 8.5L, Hematocrit 27L, Mean Corpuscular Volume 85, Mean Corpuscular Hemoglobin 26, Mean Corpuscular Hemoglobin Concent 31L, Red Cell Distribution Width 18.4H, Platelet Count 401H, Mean Platelet Volume 8.7, Neutrophils (%) (Auto) 91H, Lymphocytes (%) (Auto) 6L, Monocytes (%) (Auto) 4, Eosinophils (%) (Auto) 0, Basophils (%) (Auto) 0, Neutrophils # (Auto) 13.4H, Lymphocytes # (Auto) 0.8L, Monocytes # (Auto) 0.5, Eosinophils # (Auto) 0.0, Basophils # (Auto) 0.0, Sodium Level 138, Potassium Level 4.3, Chloride Level 105, Carbon Dioxide Level 25, Anion Gap 8, Blood Urea Nitrogen 21H, Creatinine 1.27, Estimat Glomerular Filtration Rate 55, BUN/ Creatinine Ratio 17, Glucose Level 155H, Calcium Level 8.6, Magnesium Level 2.6H 11/26/18 08:30: Blood Gas Puncture Site R RAD, Blood Gas Patient Temperature 36.6, Arterial Blood pH 7.46H, Arterial Blood Partial Pressure CO2 36, Arterial Blood Partial Pressure O2 55L, Arterial Blood HCO3 25, Arterial Blood Total CO2 26.4, Arterial Blood Oxygen Saturation 90L, Arterial Blood Base Excess 1.8, Erick Test YES-POS, Blood Gas Ventilator Setting NO, Blood Gas Inspired Oxygen 15L 11/26/18 11:43: Lab Scanned Report Transfusion Reaction Form Microbiology 11/24/18 Blood Culture - Preliminary, Resulted No growth 11/24/18 Urine Culture - Preliminary, Resulted Mixed Bacterial Wendy Proteus mirabilis Assessment/Plan Assessment/Plan Assessment/Plan PULMONARY FIBROSIS WITH WORSENING DYSPNEA AND HYPOXEMIA WITH CHRONIC OXYGEN THERAPY PROLAPSED COLOSTOMY BLOOD PER COLOSTOMY INCARCERATED VENTRAL/STOMAL HERNIA CHRONIC ANEMIA CHRONIC DECUBITUS ULCERS CHRONIC OBSTRUCTIVE SLEEP APNEA CORONARY ARTERY DISEASE 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
[2018-11-26 20:00] VITALS: BP 146/67
[2018-11-26] MEDS: ASPIRIN E.C. 81 MG (ECOTRIN) TAB PO SCH (21:08)
[2018-11-26] MEDS: PANTOPRAZOLE 40 MG (PROTONIX) TAB PO SCH (21:08)
[2018-11-26] MEDS: MELATONIN 3 MG TABLET PO SCH (21:09)
[2018-11-27] VITALS (19 sets, daily range): BP systolic 141–192; BP diastolic 61–98
[2018-11-27] MEDS: RT-ALBUTEROL/IPRATROPIUM 3 ML (DUONEB) VIAL INH SCH ×6 (03:06→21:58)
[2018-11-27] MEDS: methylPREDNISolone 40 MG/ML (Solu-MEDROL) VIAL IV SCH ×4 (03:55→21:08)
[2018-11-27] MEDS: PIPERACILLIN/TAZOBACTAM (BULK) 4.5 GM in NS (IVPB) 100 ML IV SCH ×3 (03:56→21:05)
[2018-11-27 05:28] LABS: BASOPHILS % (AUTO) 0 % (0-10); EOSINOPHILS % (AUTO) 0 % (0-10); HEMATOCRIT 27 % (40-54); HEMOGLOBIN 8.1 G/DL (13.3-17.7); LYMPHOCYTES # (AUTO) 0.9 X 10^3 (1.0-4.0); LYMPHOCYTES % (AUTO) 7 % (12-44); MEAN CORPUSCULAR HEMOGLOBIN 26 PG (25-34); MEAN CORPUSCULAR HGB CONC 31 G/DL (32-36); MEAN CORPUSCULAR VOLUME 86 FL (80-99); MONOCYTES # (AUTO) 0.7 X 10^3 (0.0-1.0); MONOCYTES % (AUTO) 6 % (0-12); NEUTROPHILS # (AUTO) 11.2 X 10^3 (1.8-7.8); NEUTROPHILS % (AUTO) 88 % (42-75); PLATELET COUNT 387 10^3/uL (130-400); RED CELL DISTRIBUTION WIDTH 18.8 % (10.0-14.5); WHITE BLOOD COUNT 12.8 10^3/uL (4.3-11.0)
[2018-11-27 05:53] LABS: BUN/CREATININE RATIO 25; CALCIUM 8.4 MG/DL (8.5-10.1); CARBON DIOXIDE 21 MMOL/L (21-32); CHLORIDE 104 MMOL/L (98-107); CREATININE SERUM 1.05 MG/DL (0.60-1.30); GFR ESTIMATED > 60; GLUCOSE 148 MG/DL (70-105); MAGNESIUM 2.3 MG/DL (1.6-2.4); PHOSPHORUS 3.2 MG/DL (2.3-4.7); POTASSIUM 4.2 MMOL/L (3.6-5.0); SODIUM 136 MMOL/L (135-145)
--- NOTE | 2018-11-27 07:27 | Pulmonary Progress Note ---
Subjective Time Seen by a Provider: 06:12 Subjective/Events-last exam Pt is doing worse.CXR appears worse. Sepsis Event Evaluation Height, Weight, BMI Height: 5'10.00" Weight: 245lbs. 6.0oz. [id number]; 32.67 BMI Method:Stated Focused Exam Lactate Level 11/24/18 13:55: Lactic Acid Level 1.31 Exam Exam Vital Signs Date Time Temp Pulse Resp B/P (MAP) Pulse Ox O2 Delivery O2 Flow Rate FiO2 11/27/18 06:51 66 25 91 50.00 11/27/18 04:00 36.4 80 20 144/65 (91) 91 Vapotherm 11/27/18 03:06 66 25 91 50.00 11/27/18 01:00 63 11/27/18 00:00 36.2 66 21 141/68 (92) 96 Vapotherm 25.00 85.00 11/26/18 22:39 70 24 98 50.00 11/26/18 20:08 76 24 95 50.00 11/26/18 20:00 36.3 74 22 146/67 (93) 90 Vapotherm 25.00 85.00 11/26/18 20:00 99 Vapotherm 20.00 70 11/26/18 19:00 76 11/26/18 18:34 91 Vapotherm 30.00 70 11/26/18 15:59 36.6 76 21 102/63 (76) 96 Vapotherm 25.00 85.00 11/26/18 14:30 75 24 97 50.00 11/26/18 13:55 92 Vapotherm 20.00 60 11/26/18 13:00 78 11/26/18 12:00 36.2 82 22 104/56 (72) 92 Vapotherm 25.00 85.00 11/26/18 08:00 Vapotherm 11/26/18 08:00 36.6 85 20 129/62 (84) 93 Vapotherm 15.00 70.00 I & O 11/27/18 07:00 Intake Total 3325 ml Output Total 3800 ml Balance -475 ml Height & Weight Height: 5'10.00" Weight: 245lbs. 6.0oz. 111.995232ds; 32.67 BMI Method:Stated General Appearance: WD/WN, Mild Distress (due to nurse gathering ABGs and patients dislike for needles. ) HEENT: PERRL/EOMI Neck: Full Range of Motion, Normal Inspection Respiratory: Chest Non Tender, Other (Increased respiratory effort. ) Cardiovascular: Regular Rate, Rhythm, No Murmur Capillary Refill: Less Than 3 Seconds Gastrointestinal: non tender, soft, other (ventral hernia incarcerated, left lower quadrant colostomy prolapsed, slight blood tinged, stomal herniation) Neurologic/Psychiatric: Alert Skin: Normal Color Lymphatic: No Adenopathy Results Lab Laboratory Tests 11/26/18 05:50 11/27/18 04:25 Assessment/Plan Assessment/Plan Acute on chronic respiratory failure -Vapotherm -Titrate for Sp02 90-94% -PT is refusing to use BiPAP. -SL IVF -CTA of chest - reviewed -Continue Zosyn, vanco -Await castillo cultures PNA with ARDS -Continue Vanco, Zosyn and Eraxis. Grade II dyastolic dysfunction -Change Lasix to IV bumex - spironolactone continue daily labs and CXR Hx of pulmonary fibrosis -Monitor prolapsed colostomy with blood per colostomy and stomal herniation/ventral hernia incarcerated -Surgery following Hx of cauda equina anemia s/p 1 unit PRBC -Monitor -Hb appears to be stable. Pt is high risk for DVT/PE PT states he is a DNR and is at bedside who agrees. PT's prognosis is guarded to poor. Will continue to monitor closely. - LAUREN CHIN DO Nov 27, 2018 07:27
[2018-11-27] MEDS ORDERED: ANIDULAFUNGIN INJECTION 200 MG in NS (IVPB) 250 ML IV ONE (07:30)
[2018-11-27] MEDS: CARVEDILOL 12.5 MG (COREG) TABLET PO SCH ×2 (08:12→21:08)
[2018-11-27] MEDS: GABAPENTIN 600 MG (NEURONTIN) TAB PO SCH ×2 (08:12→21:06)
[2018-11-27] MEDS: MULTIVIT W/MINERALS TAB (THERAGRAN M) PO SCH (08:13)
[2018-11-27] MEDS: CLOPIDOGREL 75 MG (PLAVIX) TABLET PO SCH (08:13)
[2018-11-27] MEDS: ACETAMINOPHEN 325 MG TABLET PO PRN (08:13)
[2018-11-27] MEDS: DULoxetine 30 MG (CYMBALTA) CAP PO SCH (08:13)
[2018-11-27] MEDS: amLODIPine 10 MG (NORVASC) TAB PO SCH (08:13)
[2018-11-27] MEDS: ENOXAPARIN 40 MG/0.4 ML (LOVENOX) SYR SC SCH (08:33)
[2018-11-27] MEDS: BUMETANIDE 2.5 MG/10 ML (BUMEX) VIAL IV SCH (08:33)
[2018-11-27] MEDS: cloNIDine 0.2 MG (CATAPRES) TAB PO SCH ×2 (08:38→21:22)
[2018-11-27] MEDS: SPIRONOLACTONE 25 MG (ALDACTONE) TAB PO SCH (08:38)
[2018-11-27] MEDS: VITAMIN D3 400 UNITS (CHOLECALCIFEROL) TABLET PO SCH ×2 (08:38→21:10)
[2018-11-27] MEDS: POLYETHYLENE GLYCOL 17 GM (MIRALAX) PACK PO SCH (08:39)
[2018-11-27] MEDS ORDERED: BUMETANIDE 1 MG/4 ML (BUMEX) VIAL IV SCH (09:00)
--- NOTE | 2018-11-27 09:01 | Progress Note ---
Subjective Date Seen by a Provider: Nov 27, 2018 Time Seen by a Provider: 08:30 Subjective/Events-last exam PT IS SITTING IN A CHAIR AT BEDSIDE WITH NURSING STAFF PERFORMING OSTOMY CARE/CLEANING. HE REPORTS THAT HE HAS BEEN HAVING QUITE A BIT OF SHORTNESS OF BREATH, WORSE THIS MORNING THAN YESTERDAY MORNING/EARLY AFTERNOON. Review of Systems General: Fatigue, Malaise HEENT: No Head Aches Pulmonary: Dyspnea, Cough Cardiovascular: No: Chest Pain, Palpitations Gastrointestinal: Abdominal Pain; No: Nausea Genitourinary: Other (CHRONIC SUPRAPUBIC NAPIER) Neurological: Weakness; No: Confusion Focused Exam Lactate Level 11/24/18 13:55: Lactic Acid Level 1.31 Objective Exam Last Set of Vital Signs Vital Signs Date Time Temp Pulse Resp B/P (MAP) Pulse Ox O2 Delivery O2 Flow Rate FiO2 11/27/18 07:00 76 11/27/18 06:51 25 91 50.00 11/27/18 04:00 36.4 144/65 (91) Vapotherm 11/26/18 20:00 70 Capillary Refill : Less Than 3 Seconds I&O Intake and Output 11/27/18 00:00 Intake Total 2925 ml Output Total 3650 ml Balance -725 ml Intake Oral 2170 ml IV Total 755 ml Output Urine Total 3450 ml Stool Total 200 ml General: Alert, Oriented X3, Cooperative HEENT: Atraumatic, PERRLA Neck: Supple Lungs: Other (DECREASED AIR MOVEMENT THROUGHOUT, CRACKLES IN BASES) Abdomen: Soft, Other (OSTOMY LEFT MID/LOWER ABDOMEN - WITH LARGE HERNIATION AT LEFT LOWER ABDOMEN AND HERNIATED OSTOMY) Extremities: No Edema Psych/Mental Status: Mental Status NL, Mood NL Results Lab Laboratory Tests 11/26/18 11:43: Lab Scanned Report Transfusion Reaction Form 11/27/18 04:25: White Blood Count 12.8H, Red Blood Count 3.09L, Hemoglobin 8.1L, Hematocrit 27L, Mean Corpuscular Volume 86, Mean Corpuscular Hemoglobin 26, Mean Corpuscular Hemoglobin Concent 31L, Red Cell Distribution Width 18.8H, Platelet Count 387, Mean Platelet Volume 9.0, Neutrophils (%) (Auto) 88H, Lymphocytes (%) (Auto) 7L, Monocytes (%) (Auto) 6, Eosinophils (%) (Auto) 0, Basophils (%) (Auto) 0, Neutrophils # (Auto) 11.2H, Lymphocytes # (Auto) 0.9L, Monocytes # (Auto) 0.7, Eosinophils # (Auto) 0.0, Basophils # (Auto) 0.0, Sodium Level 136, Potassium Level 4.2, Chloride Level 104, Carbon Dioxide Level 21, Anion Gap 11, Blood Urea Nitrogen 26H, Creatinine 1.05, Estimat Glomerular Filtration Rate > 60, BUN/Creatinine Ratio 25, Glucose Level 148H, Calcium Level 8.4L, Phosphorus Level 3.2, Magnesium Level 2.3 Microbiology 11/24/18 Blood Culture - Preliminary, Resulted No growth 11/24/18 Urine Culture - Preliminary, Resulted Mixed Bacterial Wendy Proteus mirabilis Assessment/Plan Assessment/Plan Assess & Plan/Chief Complaint PULMONARY FIBROSIS WITH WORSENING DYSPNEA AND HYPOXEMIA WITH CHRONIC OXYGEN THERAPY PROLAPSED COLOSTOMY BLOOD PER COLOSTOMY INCARCERATED VENTRAL/STOMAL HERNIA CHRONIC ANEMIA CHRONIC DECUBITUS ULCERS CHRONIC OBSTRUCTIVE SLEEP APNEA CORONARY ARTERY DISEASE 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 LEUKOCYTOSIS HYPERKALEMIA (NOW RESOLVED) HYPERMAGNESEMIA PULMONARY FIBROSIS WITH WORSENING DYSPNEA AND HYPOXEMIA WITH CHRONIC OXYGEN THERAPY - PT ON IV ANTIBIOTICS - CONTINUE WITH CURRENT MANAGEMENT - REPEAT CT ANGIOGRAM YESTERDAY PER DR. CHIN - THE CT ON ADMISSION WAS NEGATIVE FOR PULMONARY EMBOLI AND THE REPEAT CT SCAN WAS NEGATIVE FOR PULMONARY EMBOLI, DID SHOW PLEURAL EFFUSIONS AND CHEST XRAY TODAY SHOWED GROUND GLASS OPACITIES. - CONTINUE WITH VAPOTHERM, WEAN ABLE - PLANNING ON TRANSFER OF PT FROM 4TH FLOOR TO THE ICU PROLAPSED COLOSTOMY AND BLOOD PER COLOSTOMY WITH INCARCERATED VENTRAL/STOMAL HERNIA - DEFER TO DR. PAN - AT THIS TIME WE ARE WAITING ON ANY SURGICAL INTERVENTION DUE TO HIS PULMONARY STATUS CHRONIC ANEMIA - MONITOR, TRANSFUSE IF NEEDED CHRONIC DECUBITUS ULCERS - WOUND CARE CONSULTED CHRONIC OBSTRUCTIVE SLEEP APNEA CORONARY ARTERY DISEASE - DR. BARRETT CONSULTED - APPRECIATE HIS INPUT ON THIS COMPLICATED PATIENT. CAUDA EQUINA SYNDROME - AT THIS TIME - WE WILL WAIT ON ANY THERAPY - DUE TO PT'S PULMONARY DECONDITIONING AND INABILITY TO LEAVE ROOM. CHRONIC INDWELLING SUPRAPUBIC CATHETER LEUKOCYTOSIS - MONITOR WBC'S, PT ON SOLUMEDROL 40MG IV Q6 HR HYPERKALEMIA (NOW RESOLVED) HYPERMAGNESEMIA - MONITOR MAGNESIUM LEVEL TOMORROW OVERALL PROGNOSIS MCFP IS A POOR PROGNOSIS DUE TO HIS MULTIPLE CO-MORBID CONDITIONS. I HAVE HAD A CONVERSATION WITH ALBINA IN THE OFFICE AT HIS LAST OFFICE VISIT - INSTIGATED BY ALBINA HIMSELF. HE UNDERSTANDS THAT WITH RECURRENT INFECTIONS, HIS RISK OF GREATLY INCREASES AND HE HAS HIGH RISK FOR IN THE NEXT 6-12 MONTHS. Clinical Quality Measures DVT/VTE Risk/Contraindication: Risk Factor Score Per Nursin RFS Level Per Nursing on Admit: 4+=Very High FEDE BUTLER MD Nov 27, 2018 09:01
--- NOTE | 2018-11-27 09:04 | Diagnostic Imaging Report ---
Portable AP chest at 3:21 Indication: Shortness of breath. The cardiomegaly and sternotomy wires and chronic pulmonary changes seen on the prior exam of 11/25/2018 are again evident. The density in the right lung is somewhat greater than on the prior study. As suggested on the prior exam most likely there is an acute inflammatory/infectious process present. The left lung is essentially unchanged. The mediastinum is prominent but no different than on the prior exam. The osseous structures are intact. Impression: The appearance to chest has worsened since the prior study as there does seem to be somewhat greater involvement of the right lung by pneumonia/atelectasis. A followup exam would be recommended for continued evaluation. Dictated by: Dictated on workstation # [id number]
[2018-11-27] MEDS: VANCOMYCIN 1500 MG/NS 500 ML IVPB IV SCH ×2 (09:23)
--- NOTE | 2018-11-27 09:42 | Cardiology Progress Note ---
Subjective Date Seen by Provider: Nov 27, 2018 Time Seen by Provider: 09:41 Subjective/Events-last exam patient is sitting in a chair, more dyspneic, on Vapotherm 100 percent Review of Systems General: No Chills, No Night Sweats, No Fatigue, No Malaise, No Appetite, No Other HEENT: No Head Aches, No Visual Changes, No Eye Pain, No Ear Pain, No Dysphasia, No Sinus Congestion, No Post Nasal Drip, No Sore Throat, No Other Pulmonary: Dyspnea; No Cough, No Pleuritic Chest Pain, No Other Cardiovascular: No: Chest Pain, Palpitations, Orthopnea, Paroxysmal Noc. Dyspnea, Edema, Lt Headedness, Other Focused Exam Lactate Level 11/24/18 13:55: Lactic Acid Level 1.31 Objective-Cardiology Exam Last Set of Vital Signs Vital Signs 11/26/18 11/27/18 11/27/18 11/27/18 20:00 04:00 06:51 07:00 Temp 36.4 Pulse 76 Resp 25 B/P (MAP) 144/65 (91) Pulse Ox 91 O2 Delivery Vapotherm O2 Flow Rate 50.00 FiO2 70 Capillary Refill : Less Than 3 Seconds I&O Intake and Output 11/27/18 00:00 Intake Total 2925 ml Output Total 3650 ml Balance -725 ml Intake Oral 2170 ml IV Total 755 ml Output Urine Total 3450 ml Stool Total 200 ml General: Alert, Oriented X3, Cooperative, Mild Distress HEENT: Atraumatic, PERRLA, Mucous Memb Moist/Ronald Neck: Supple Lungs: Other (DECREASED AIR MOVEMENT IN THE BASES BILATERALLY WITH CRACKLES IN THE BASES TO MID-LUNGS) Heart: Regular Rate, Normal S1, Normal S2 Abdomen: Normal Bowel Sounds, Soft, Other (colostomy bag) Extremities: No Cyanosis, Other (TRACE EDEMA BILATERAL LOWER LEGS) Skin: No Rashes, No Significant Lesion Neuro: Normal Gait, Normal Speech, Cranial Nerves 3-12 NL Psych/Mental Status: Mental Status NL, Mood NL Results Lab Laboratory Tests 11/27/18 04:25 A/P-Cardiology Admission Diagnosis Prolapsed colostomy bag Malignant hypertension COPD Coronary artery disease Assessment/Plan Shortness of breath, acute exacerbation COPD, chronic respiratory failure uses C Pap at home, on Vapotherm, worsening chest x-ray, planning to transfer to ICU Prolapsed of colostomy, constipation, seen and managed by Dr. Mccullough Hypertension, patient has resistant hypertension, continue to monitor blood pressure. Anemia, monitor by primary care physician , monitor H&H Acute on chronic renal failure, monitor renal function Elevated BNP, echocardiogram done in September 2018 showing normal left ventricular size with ejection fraction 55-65 percent, grade 2 diastolic dysfunction, mild mitral regurgitation, aortic valve sclerosis, pulmonary hypertension with PA pressure of 50 mmHg. Hypertensive heart disease. Continue to monitor Coronary artery disease, history of CABG x3 done in 1999 using RODRIGEZ to LAD, vein graft to the first obtuse marginal, vein graft to the left posterolateral branch of the left circumflex artery. Cardiac catheterization was done in November 2013 showing occluded vein graft to the left circumflex artery. Patient had 2 stents in the [place] circumflex artery using 3.516 mm proximally and 3.520 mm at the midportion Promus Premier stents, distally there was 60 percent stenosis which will be monitored. The LAD has significant disease proximally, patient has significantly tortuous thoracic and abdominal aorta. Deferred the the evaluation of the RODRIGEZ due to the use of large amount of contrast. The right coronary artery is a small none dominant artery was not even visualized during this study. Patient had another stent placed in the circumflex artery in [facility] in 2014, no recent workup for follow-up was done. continue to monitor at this time Heavily calcified thoracic and abdominal aorta. CTA done on 01/06/2014 revealed no aneurysm or occlusions or stenosis of abdominal aorta or major branches, continue to monitor Hyperlipidemia, continue to monitor. History of CVA. Continue to monitor. Mild carotid stenosis, nonobstructive disease bilaterally, has been followed in [facility], requesting to transfer is service back to my office. I will evaluate carotid ultrasound as an outpatient COPD/obstructive sleep apnea, Continue to monitor. History of prostate CA with questionable metastasis, patient expressed that it has been followed and managed at . He reported that it was slow growing and the recommendation was conservative management. Cauda equina syndrome, underwent surgery, patient expressed that he did not have full recovery Patient was seen and evaluated with Debra, examination performed, management plan was discussed, agree with the current scribed note, I made few changes to the note using Italic font Clinical Quality Measures DVT/VTE Risk/Contraindication: Risk Factor Score Per Nursin RFS Level Per Nursing on Admit: 4+=Very High KIMBERLI BARRETT MD Nov 27, 2018 09:42
--- NOTE | 2018-11-27 10:44 | Physical Therapy Progress Note ---
Therapy Progress Note Patient transferred to ICU. Physician made aware PT will require new orders. DELANO MONTGOMERY PT Nov 27, 2018 10:44
--- NOTE | 2018-11-27 10:56 | Occ Therapy Progress Note ---
Therapy Progress Note Pt transferred from medical floor to ICU secondary to medical status. Will require new orders for continued OT services. SIDRA GARCIA OT Nov 27, 2018 10:56
[2018-11-27] MEDS: morphine INJ 10 MG/ML 1ML (SYR OR VIAL) IVP PRN (14:53)
[2018-11-27] MEDS: hydrALAZINE (APESOLINE) 20 MG/ML VIAL IV PRN (15:12)
--- NOTE | 2018-11-27 15:52 | NUR ---
Heavy Duty Mechanic follow up: pt's daughter was outside the room. She recognized me and thanked me for coming, but said it was not the best time for the pt. She said her mother was also in the room and may appreciate a visit. The daughter, Latha, shared their feelings of disappointment and fatigue with pt's readmission and ongoing health struggles. I offered active listening and thanked her for visiting.
[2018-11-27] MEDS ORDERED: hydrALAZINE (APESOLINE) 20 MG/ML VIAL IV NR (16:45)
[2018-11-27] MEDS: ASPIRIN E.C. 81 MG (ECOTRIN) TAB PO SCH (21:06)
[2018-11-27] MEDS: MELATONIN 3 MG TABLET PO SCH (21:08)
[2018-11-27] MEDS: PANTOPRAZOLE 40 MG (PROTONIX) TAB PO SCH (21:08)
--- NOTE | 2018-11-27 21:41 | Progress Note - Surgery ---
Subjective Date Seen by a Provider: Nov 27, 2018 Time Seen by a Provider: 16:30 Subjective/Events-last exam Patient with worsening breathing. Has been transferred to the ICU. Family at bedside. Patient with stool from colostomy, no visible blood at this time. Objective Exam Vital Signs Date Time Temp Pulse Resp B/P (MAP) Pulse Ox O2 Delivery O2 Flow Rate FiO2 11/27/18 20:00 90 NIV Bilevel 50 11/27/18 19:55 36.6 11/27/18 18:53 73 31 96 50.00 11/27/18 18:00 75 26 165/70 (101) 98 NIV Bilevel 50.00 11/27/18 17:00 79 32 180/79 (112) 90 NIV Bilevel 50.00 11/27/18 16:02 90 NIV Bilevel 50 11/27/18 16:02 35.7 11/27/18 16:00 82 27 192/82 (118) 94 NIV Bilevel 50.00 11/27/18 15:58 79 91 50 11/27/18 15:42 35.7 11/27/18 15:00 80 16 182/98 (126) 92 NIV Bilevel 50.00 11/27/18 14:57 79 19 91 50.00 11/27/18 14:00 67 30 166/79 (108) 88 NIV Bilevel 50.00 11/27/18 13:00 67 33 157/70 (99) 95 NIV Bilevel 50.00 11/27/18 13:00 68 11/27/18 12:00 90 NIV Bilevel 50 11/27/18 12:00 83 161/78 (105) NIV Bilevel 50.00 11/27/18 11:25 36.1 11/27/18 11:00 65 43 159/76 (103) 92 NIV Bilevel 50.00 11/27/18 10:12 69 19 91 50.00 11/27/18 10:00 150/85 (106) NIV Bilevel 50.00 11/27/18 08:00 Vapotherm 100 11/27/18 07:00 76 11/27/18 06:51 66 25 91 50.00 11/27/18 04:00 36.4 80 20 144/65 (91) 91 Vapotherm 11/27/18 03:06 66 25 91 50.00 11/27/18 01:00 63 11/27/18 00:00 36.2 66 21 141/68 (92) 96 Vapotherm 25.00 85.00 11/26/18 22:39 70 24 98 50.00 I & O 11/27/18 07:00 Intake Total 3325 ml Output Total 3800 ml Balance -475 ml Capillary Refill : Less Than 3 Seconds General Appearance: WD/WN, Mild Distress (on cpap and uncomfortable) HEENT: PERRL/EOMI Neck: Full Range of Motion, Normal Inspection Respiratory: Chest Non Tender, Other (labored breathing) Cardiovascular: Regular Rate, Rhythm, No Murmur Gastrointestinal: non tender, soft, other (ventral hernia incarcerated, left lower quadrant colostomy prolapsed, no blood, stool ouptut) Extremity: Non Tender Neurologic/Psychiatric: Alert (cpap mask on) Skin: Normal Color Lymphatic: No Adenopathy Results Lab Laboratory Tests 11/27/18 04:25: White Blood Count 12.8H, Red Blood Count 3.09L, Hemoglobin 8.1L, Hematocrit 27L, Mean Corpuscular Volume 86, Mean Corpuscular Hemoglobin 26, Mean Corpuscular Hemoglobin Concent 31L, Red Cell Distribution Width 18.8H, Platelet Count 387, Mean Platelet Volume 9.0, Neutrophils (%) (Auto) 88H, Lymphocytes (%) (Auto) 7L, Monocytes (%) (Auto) 6, Eosinophils (%) (Auto) 0, Basophils (%) (Auto) 0, Neutrophils # (Auto) 11.2H, Lymphocytes # (Auto) 0.9L, Monocytes # (Auto) 0.7, Eosinophils # (Auto) 0.0, Basophils # (Auto) 0.0, Sodium Level 136, Potassium Level 4.2, Chloride Level 104, Carbon Dioxide Level 21, Anion Gap 11, Blood Urea Nitrogen 26H, Creatinine 1.05, Estimat Glomerular Filtration Rate > 60, BUN/Creatinine Ratio 25, Glucose Level 148H, Calcium Level 8.4L, Phosphorus Le vania 3.2, Magnesium Level 2.3 Microbiology 11/24/18 Blood Culture - Preliminary, Resulted No growth 11/24/18 Urine Culture - Preliminary, Resulted Mixed Bacterial Wendy Proteus mirabilis Assessment/Plan Assessment/Plan Assessment/Plan PULMONARY FIBROSIS WITH WORSENING DYSPNEA AND HYPOXEMIA WITH CHRONIC OXYGEN THERAPY PROLAPSED COLOSTOMY BLOOD PER COLOSTOMY INCARCERATED VENTRAL/STOMAL HERNIA CHRONIC ANEMIA CHRONIC DECUBITUS ULCERS CHRONIC OBSTRUCTIVE SLEEP APNEA CORONARY ARTERY DISEASE 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 Leukocytosis Patient respiratory status worsening and was transferred to the ICU Patient colostomy has output now and not obstructed it is prolapsed but needs other medical issues improved before elective repair of colostomy/hernia patient and family understand Clinical Quality Measures DVT/VTE Risk/Contraindication: Risk Factor Score Per Nursin RFS Level Per Nursing on Admit: 4+=Very High EWA PAN DO Nov 27, 2018 21:41
[2018-11-28] VITALS (33 sets, daily range): BP systolic 138–187; BP diastolic 55–93
[2018-11-28] MEDS: ACETAMINOPHEN 325 MG TABLET PO PRN (01:51)
[2018-11-28] MEDS: RT-ALBUTEROL/IPRATROPIUM 3 ML (DUONEB) VIAL INH SCH ×6 (02:04→22:12)
[2018-11-28 03:48] LABS: BASOPHILS % (AUTO) 0 % (0-10); EOSINOPHILS % (AUTO) 0 % (0-10); HEMATOCRIT 26 % (40-54); LYMPHOCYTES # (AUTO) 0.5 X 10^3 (1.0-4.0); LYMPHOCYTES % (AUTO) 6 % (12-44); MEAN CORPUSCULAR HEMOGLOBIN 27 PG (25-34); MEAN CORPUSCULAR HGB CONC 31 G/DL (32-36); MEAN CORPUSCULAR VOLUME 87 FL (80-99); MEAN PLATELET VOLUME 9.2 FL (7.4-10.4); MONOCYTES # (AUTO) 0.7 X 10^3 (0.0-1.0); MONOCYTES % (AUTO) 7 % (0-12); NEUTROPHILS # (AUTO) 8.4 X 10^3 (1.8-7.8); NEUTROPHILS % (AUTO) 87 % (42-75); PLATELET COUNT 349 10^3/uL (130-400); RED CELL DISTRIBUTION WIDTH 18.7 % (10.0-14.5); WHITE BLOOD COUNT 9.7 10^3/uL (4.3-11.0)
[2018-11-28 03:48] LABS: ABG BASE EXCESS 4.5 MMOL/L (-2.5-2.5); ABG OXYGEN SATURATION 95 % (94-100); ABG PCO2 43 MMHG (35-45); ABG PH 7.43 (7.37-7.43); ABG PO2 71 MMHG (79-93)
[2018-11-28 03:57] LABS: ALLENS TEST YES-POS; INSPIRED O2 50%; PATIENT TEMP 36.8; VENTILATOR NO
[2018-11-28 04:04] LABS: BUN/CREATININE RATIO 22; CALCIUM 8.6 MG/DL (8.5-10.1); CARBON DIOXIDE 22 MMOL/L (21-32); CHLORIDE 104 MMOL/L (98-107); CREATININE SERUM 0.91 MG/DL (0.60-1.30); GFR ESTIMATED > 60; GLUCOSE 136 MG/DL (70-105); PHOSPHORUS 3.2 MG/DL (2.3-4.7); POTASSIUM 3.5 MMOL/L (3.6-5.0); SODIUM 136 MMOL/L (135-145)
--- NOTE | 2018-11-28 04:38 | Pulmonary Progress Note ---
Subjective Time Seen by a Provider: 06:07 Subjective/Events-last exam Currently on BiPAP. Family at bedside. CXR and labs reviewed. Sepsis Event Evaluation Height, Weight, BMI Height: 5'10.00" Weight: 245lbs. 6.0oz. [id number]; 32.67 BMI Method:Stated Exam Exam Vital Signs Date Time Temp Pulse Resp B/P (MAP) Pulse Ox O2 Delivery O2 Flow Rate FiO2 11/28/18 04:00 64 23 154/69 (97) 95 NIV Bilevel 50.00 11/28/18 03:00 78 28 172/75 (107) 91 NIV Bilevel 50.00 11/28/18 02:04 73 25 95 50.00 11/28/18 02:00 75 171/77 (108) 90 NIV Bilevel 50.00 11/28/18 01:00 65 11/28/18 01:00 65 164/70 (101) 94 NIV Bilevel 50.00 11/28/18 00:14 36.3 11/28/18 00:00 64 157/67 (97) 94 NIV Bilevel 50.00 11/28/18 00:00 90 NIV Bilevel 50 11/27/18 23:00 66 32 157/65 (95) 94 NIV Bilevel 50.00 11/27/18 22:00 76 160/74 (102) 91 NIV Bilevel 50.00 11/27/18 21:58 76 26 94 50.00 11/27/18 21:00 74 171/69 (103) 94 NIV Bilevel 50.00 11/27/18 20:27 76 31 177/77 (110) 94 NIV Bilevel 50.00 11/27/18 20:00 87 18 184/83 (116) NIV Bilevel 50.00 11/27/18 20:00 90 NIV Bilevel 50 11/27/18 19:55 36.6 11/27/18 19:00 80 11/27/18 19:00 75 152/61 (91) 98 NIV Bilevel 50.00 11/27/18 18:53 73 31 96 50.00 11/27/18 18:00 75 26 165/70 (101) 98 NIV Bilevel 50.00 11/27/18 17:00 79 32 180/79 (112) 90 NIV Bilevel 50.00 11/27/18 16:02 90 NIV Bilevel 50 11/27/18 16:02 35.7 11/27/18 16:00 82 27 192/82 (118) 94 NIV Bilevel 50.00 11/27/18 15:58 79 91 50 11/27/18 15:42 35.7 11/27/18 15:00 80 16 182/98 (126) 92 NIV Bilevel 50.00 11/27/18 14:57 79 19 91 50.00 11/27/18 14:00 67 30 166/79 (108) 88 NIV Bilevel 50.00 11/27/18 13:00 67 33 157/70 (99) 95 NIV Bilevel 50.00 11/27/18 13:00 68 11/27/18 12:00 90 NIV Bilevel 50 11/27/18 12:00 83 161/78 (105) NIV Bilevel 50.00 11/27/18 11:25 36.1 11/27/18 11:00 65 43 159/76 (103) 92 NIV Bilevel 50.00 11/27/18 10:12 69 19 91 50.00 11/27/18 10:00 150/85 (106) NIV Bilevel 50.00 11/27/18 08:00 Vapotherm 100 11/27/18 07:00 76 11/27/18 06:51 66 25 91 50.00 I & O 11/28/18 07:00 Intake Total 1730 ml Output Total 2550 ml Balance -820 ml Height & Weight Height: 5'10.00" Weight: 245lbs. 6.0oz. 111.031726px; 32.67 BMI Method:Stated General Appearance: WD/WN, Mild Distress (on BiPAP) HEENT: PERRL/EOMI Neck: Full Range of Motion, Normal Inspection Respiratory: Chest Non Tender, Crackles, Decreased Breath Sounds, Other (labored breathing) Cardiovascular: Regular Rate, Rhythm, No Murmur Capillary Refill: Less Than 3 Seconds Gastrointestinal: non tender, soft, other (ventral hernia incarcerated, left lower quadrant colostomy prolapsed, no blood, stool ou[place]ut) Extremity: Non Tender Neurologic/Psychiatric: Alert Skin: Normal Color Lymphatic: No Adenopathy Results Lab Laboratory Tests 11/26/18 05:50 11/27/18 04:25 11/28/18 03:25 Assessment/Plan Assessment/Plan Acute on chronic respiratory failure -Vapotherm -Titrate for Sp02 90-94% -Currently on BiPAP. -SL IVF -CTA of chest - reviewed -Continue Zosyn, vanco -Await castillo cultures PNA with ARDS -Continue Vanco, Zosyn and Eraxis. Grade II dyastolic dysfunction -Continue IV bumex - spironolactone continue daily labs Hx of pulmonary fibrosis -Monitor prolapsed colostomy with blood per colostomy and stomal herniation/ventral hernia incarcerated -Surgery following Hx of cauda equina anemia s/p 1 unit PRBC -Monitor -Hb appears to be stable. Pt is high risk for DVT/PE PT states he is a DNR and is at bedside who agrees. PT's prognosis is guarded to poor. Will continue to monitor closely. - LAUREN CHIN DO Nov 28, 2018 04:38
[2018-11-28] MEDS: methylPREDNISolone 40 MG/ML (Solu-MEDROL) VIAL IV SCH ×4 (05:13→22:35)
[2018-11-28] MEDS: PIPERACILLIN/TAZOBACTAM (BULK) 4.5 GM in NS (IVPB) 100 ML IV SCH ×3 (05:13→20:38)
[2018-11-28] MEDS ORDERED: KCL 20 MEQ TAB (K-DUR) PO ONE (05:30)
[2018-11-28] MEDS: KCL 20 MEQ TAB (K-DUR) PO SCH (06:33)
[2018-11-28] MEDS: POTASSIUM CL 10MEQ/50ML IVPB 50 ML IV SCH (06:33)
[2018-11-28] MEDS: MAGNESIUM 1 GM/100 ML IVPB 100 ML IV SCH (06:33)
[2018-11-28] MEDS ORDERED: TROUGH ORDER-PHARMACY XX ONE (07:00)
[2018-11-28] MEDS: BUMETANIDE 2.5 MG/10 ML (BUMEX) VIAL IV SCH (08:11)
[2018-11-28] MEDS: ENOXAPARIN 40 MG/0.4 ML (LOVENOX) SYR SC SCH (08:11)
[2018-11-28] MEDS: SPIRONOLACTONE 25 MG (ALDACTONE) TAB PO SCH (08:12)
[2018-11-28] MEDS: POLYETHYLENE GLYCOL 17 GM (MIRALAX) PACK PO SCH (08:12)
[2018-11-28] MEDS: CARVEDILOL 12.5 MG (COREG) TABLET PO SCH ×2 (08:12→20:39)
[2018-11-28] MEDS: DULoxetine 30 MG (CYMBALTA) CAP PO SCH (08:12)
[2018-11-28] MEDS: cloNIDine 0.2 MG (CATAPRES) TAB PO SCH ×2 (08:12→20:38)
[2018-11-28] MEDS: MULTIVIT W/MINERALS TAB (THERAGRAN M) PO SCH (08:13)
[2018-11-28] MEDS: amLODIPine 10 MG (NORVASC) TAB PO SCH (08:13)
[2018-11-28] MEDS: GABAPENTIN 600 MG (NEURONTIN) TAB PO SCH ×2 (08:13→20:39)
[2018-11-28] MEDS: CLOPIDOGREL 75 MG (PLAVIX) TABLET PO SCH (08:13)
[2018-11-28] MEDS: VITAMIN D3 400 UNITS (CHOLECALCIFEROL) TABLET PO SCH ×2 (08:13→20:38)
[2018-11-28] MEDS: ANIDULAFUNGIN INJECTION 100 MG in NS (IVPB) 100 ML IV SCH (08:23)
[2018-11-28] MEDS: VANCOMYCIN 1500 MG/NS 500 ML IVPB IV SCH ×2 (08:24)
--- NOTE | 2018-11-28 08:26 | Progress Note ---
Subjective Date Seen by a Provider: Nov 28, 2018 Time Seen by a Provider: 08:26 Subjective/Events-last exam PT REPORTS THAT HE IS FEELING BETTER TODAY COMPARED TO YESTERDAY. HE NOTES THAT HE IS BREATHING EASIER, BUT STILL QUITE FATIGUED. HE IS WONDERING ABOUT CHANGING FROM LIQUID DIET TO SOMETHING MORE SUBSTANTIAL TODAY. HE DENIES CHEST PAIN, DOES HAVE CHRONIC LEFT SIDED ABDOMINAL PAIN. Review of Systems General: Fatigue HEENT: No Head Aches Pulmonary: Dyspnea, Cough Cardiovascular: No: Chest Pain, Palpitations Gastrointestinal: Abdominal Pain; No: Nausea Genitourinary: Other (SUPRAPUBIC NAPIER) Musculoskeletal: back pain, leg pain Neurological: Weakness; No: Confusion Objective Exam Last Set of Vital Signs Vital Signs Date Time Temp Pulse Resp B/P (MAP) Pulse Ox O2 Delivery O2 Flow Rate FiO2 11/28/18 07:10 Vapotherm 40.00 100.00 11/28/18 07:09 91 100 11/28/18 06:00 61 26 164/68 (100) 11/28/18 04:00 36.3 Capillary Refill : Less Than 3 Seconds I&O Intake and Output 11/28/18 00:00 Intake Total 2300 ml Output Total 3200 ml Balance -900 ml Intake Oral 1930 ml IV Total 370 ml Output Urine Total 3100 ml Stool Total 100 ml General: Alert, Oriented X3, Cooperative, No Acute Distress HEENT: Atraumatic, PERRLA Neck: Supple Lungs: Other (IMPROVED AIR MOVEMENT THROUGHOUT WITH CRACKLES IN RIGHT UPPER LOBE AND BILATERAL LOWER LOBES) Heart: Regular Rate Abdomen: Normal Bowel Sounds, Soft Neuro: Cranial Nerves 3-12 NL Psych/Mental Status: Mental Status NL, Mood NL Results Lab Laboratory Tests 11/28/18 03:25: White Blood Count 9.7, Red Blood Count 2.99L, Hemoglobin 8.0L, Hematocrit 26L, Mean Corpuscular Volume 87, Mean Corpuscular Hemoglobin 27, Mean Corpuscular Hemoglobin Concent 31L, Red Cell Distribution Width 18.7H, Platelet Count 349, Mean Platelet Volume 9.2, Neutrophils (%) (Auto) 87H, Lymphocytes (%) (Auto) 6L, Monocytes (%) (Auto) 7, Eosinophils (%) (Auto) 0, Basophils (%) (Auto) 0, Neutrophils # (Auto) 8.4H, Lymphocytes # (Auto) 0.5L, Monocytes # (Auto) 0.7, Eosinophils # (Auto) 0.0, Basophils # (Auto) 0.0, Sodium Level 136, Potassium Level 3.5L, Chloride Level 104, Carbon Dioxide Level 22, Anion Gap 10, Blood Urea Nitrogen 20H, Creatinine 0.91, Estimat Glomerular Filtration Rate > 60, BUN/Creatinine Ratio 22, Glucose Level 136H, Calcium Level 8.6, Phosphorus Level 3.2, Magnesium Level 2.0, B-Type Natriuretic Peptide 1462.8H 11/28/18 03:40: Blood Gas Puncture Site RIGHT RADIAL, Blood Gas Patient Temperature 36.8, Arterial Blood pH 7.43, Arterial Blood Partial Pressure CO2 43, Arterial Blood Partial Pressure O2 71L, Arterial Blood HCO3 29H, Arterial Blood Total CO2 30.0, Arterial Blood Oxygen Saturation 95, Arterial Blood Base Excess 4.5H, Erick Test YES-POS, Blood Gas Ventilator Setting NO, Blood Gas Inspired Oxygen 50% 11/28/18 07:30: Vancomycin Level Trough 13.8 Microbiology 11/24/18 Blood Culture - Preliminary, Resulted No growth 11/24/18 Urine Culture - Preliminary, Resulted Mixed Bacterial Wendy Proteus mirabilis Assessment/Plan Assessment/Plan Assess & Plan/Chief Complaint PULMONARY FIBROSIS WITH WORSENING DYSPNEA AND HYPOXEMIA WITH CHRONIC OXYGEN THERAPY PROLAPSED COLOSTOMY BLOOD PER COLOSTOMY INCARCERATED VENTRAL/STOMAL HERNIA CHRONIC ANEMIA CHRONIC DECUBITUS ULCERS CHRONIC OBSTRUCTIVE SLEEP APNEA CORONARY ARTERY DISEASE 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 LEUKOCYTOSIS HYPERKALEMIA (NOW RESOLVED) HYPERMAGNESEMIA PULMONARY FIBROSIS WITH WORSENING DYSPNEA AND HYPOXEMIA WITH CHRONIC OXYGEN THERAPY - PT ON IV ANTIBIOTICS - CONTINUE WITH CURRENT MANAGEMENT - ZOSYN, VANC AND ERAXIS - THE CT ON ADMISSION WAS NEGATIVE FOR PULMONARY EMBOLI AND THE REPEAT CT SCAN WAS NEGATIVE FOR PULMONARY EMBOLI, DID SHOW PLEURAL EFFUSIONS AND CHEST XRAY TODAY SHOWED GROUND GLASS OPACITIES. - CONTINUE WITH VAPOTHERM, WEAN ABLE - CONTINUE WITH ICU MANAGEMENT OF THIS PATIENT - PT HAS SHOWN IMPROVEMENT OVERNIGHT, MONITOR SERIAL CHEST XRAYS PROLAPSED COLOSTOMY AND BLOOD PER COLOSTOMY WITH INCARCERATED VENTRAL/STOMAL HERNIA - DEFER TO DR. PAN - AT THIS TIME WE ARE WAITING ON ANY SURGICAL INTERVENTION DUE TO HIS PULMONARY STATUS CHRONIC ANEMIA - HGB 8, WITH HIS CARDIAC ISSUES, I HAVE RECOMMENDED A BLOOD TRANSFUSION TODAY AND WILL MONITOR TOMORROW. CHRONIC DECUBITUS ULCERS - WOUND CARE CONSULTED CHRONIC OBSTRUCTIVE SLEEP APNEA CORONARY ARTERY DISEASE - DR. BARRETT CONSULTED - APPRECIATE HIS INPUT ON THIS COMPLICATED PATIENT. CAUDA EQUINA SYNDROME - AT THIS TIME - WE WILL WAIT ON ANY THERAPY - DUE TO PT'S PULMONARY DECONDITIONING AND INABILITY TO LEAVE ROOM. CHRONIC INDWELLING SUPRAPUBIC CATHETER LEUKOCYTOSIS - MONITOR WBC'S, PT ON SOLUMEDROL 40MG IV Q6 HR HYPERKALEMIA (NOW RESOLVED) HYPERMAGNESEMIA - MONITOR, REPLACE NEEDED OVERALL PROGNOSIS IS SUPPORT ANALYST IS A POOR PROGNOSIS DUE TO HIS MULTIPLE CO-MORBID CONDITIONS. I HAVE HAD A CONVERSATION WITH ALBINA IN THE OFFICE AT HIS LAST OFFICE VISIT - INSTIGATED BY ALBINA HIMSELF. HE UNDERSTANDS THAT WITH RECURRENT INFECTIONS, HIS RISK OF GREATLY INCREASES AND HE HAS HIGH RISK FOR IN THE NEXT 6-12 MONTHS. Clinical Quality Measures DVT/VTE Risk/Contraindication: Risk Factor Score Per Nursin RFS Level Per Nursing on Admit: 4+=Very High FEDE BUTLER MD Nov 28, 2018 08:26
--- NOTE | 2018-11-28 08:50 | Diagnostic Imaging Report ---
PATIENT HISTORY: Dyspnea. TECHNIQUE: Frontal view of the chest COMPARISON: 11/27/2018 FINDINGS: There are patchy airspace opacities throughout the lungs bilaterally, with poor aeration overall. This appears worsened on the right and stable on the left. No large pleural effusion or pneumothorax is appreciated. The cardiac silhouette is large, but stable in size. There is chronic widening of the left AC joint, may be from old injury or surgery. Sternotomy wires are noted. IMPRESSION: 1. Extensive airspace opacities in the lungs bilaterally, stable on the left and increased on the right. This may be due to edema or infection. 2. Stable cardiomegaly. Dictated by: Dictated on workstation # [id number]
[2018-11-28] MEDS ORDERED: NS IV 500 ML 500 ML IV SCH (09:03)
[2018-11-28] MEDS ORDERED: FUROSEMIDE 40 MG/4 ML INJ (LASIX) IVP NR (09:15)
[2018-11-28] MEDS ORDERED: diphenhydrAMINE 50 MG/ML INJ (BENADRYL) IVP PRN (09:15)
--- NOTE | 2018-11-28 10:04 | Cardiology Progress Note ---
Subjective Date Seen by Provider: Nov 28, 2018 Time Seen by Provider: 10:01 Subjective/Events-last exam Patient is sitting up in bed eating breakfast, no new complaints. Denies any chest pain or increased dyspnea. Review of Systems General: No Chills, No Night Sweats; Fatigue, Malaise; No Appetite, No Other HEENT: No Head Aches, No Visual Changes, No Eye Pain, No Ear Pain, No Dysphasia, No Sinus Congestion, No Post Nasal Drip, No Sore Throat, No Other Pulmonary: Dyspnea; No Cough, No Pleuritic Chest Pain, No Other Cardiovascular: No: Chest Pain, Palpitations, Orthopnea, Paroxysmal Noc. Dyspnea, Edema, Lt Headedness, Other Objective-Cardiology Exam Last Set of Vital Signs Vital Signs 11/28/18 11/28/18 11/28/18 11/28/18 11/28/18 04:00 06:00 08:00 10:10 10:23 Temp 36.3 Pulse 72 Resp 27 B/P (MAP) 164/68 (100) Pulse Ox 94 O2 Delivery NIV Bilevel O2 Flow Rate 70.00 FiO2 100 Capillary Refill : Less Than 3 Seconds I&O Intake and Output 11/28/18 00:00 Intake Total 2300 ml Output Total 3200 ml Balance -900 ml Intake Oral 1930 ml IV Total 370 ml Output Urine Total 3100 ml Stool Total 100 ml General: Alert, Oriented X3, Cooperative, No Acute Distress HEENT: Atraumatic, PERRLA Neck: Supple Lungs: Other (IMPROVED AIR MOVEMENT THROUGHOUT WITH CRACKLES IN RIGHT UPPER LOBE AND BILATERAL LOWER LOBES) Heart: Regular Rate, Normal S1, Normal S2 Abdomen: Normal Bowel Sounds, Soft Extremities: No Clubbing, No Cyanosis, Other (trace edema BLE) Skin: No Rashes, No Significant Lesion Neuro: Normal Speech, Cranial Nerves 3-12 NL Psych/Mental Status: Mental Status NL, Mood NL Results Lab Laboratory Tests 11/28/18 03:25 A/P-Cardiology Admission Diagnosis Prolapsed colostomy bag Malignant hypertension COPD Coronary artery disease Assessment/Plan Shortness of breath, acute exacerbation COPD, chronic respiratory failure uses C Pap at home, on Vapotherm, worsening chest x-ray, patient was transferred to ICU yesterday, maintained on C Pap, reporting improvement Prolapsed of colostomy, constipation, seen and managed by Dr. Mccullough Hypertension, patient has resistant hypertension, continue to monitor blood pressure. Anemia, monitor by primary care physician , monitor H&H, planning for blood transfusion this morning. Acute on chronic renal failure, monitor renal function Elevated BNP, echocardiogram done in September 2018 showing normal left ventricular size with ejection fraction 55-65 percent, grade 2 diastolic dysfunction, mild mitral regurgitation, aortic valve sclerosis, pulmonary hypertension with PA pressure of 50 mmHg. Hypertensive heart disease. Continue to monitor Coronary artery disease, history of CABG x3 done in 1999 using RODRIGEZ to LAD, vein graft to the first obtuse marginal, vein graft to the left posterolateral branch of the left circumflex artery. Cardiac catheterization was done in November 2013 showing occluded vein graft to the left circumflex artery. Patient had 2 stents in the [place] circumflex artery using 3.516 mm proximally and 3.520 mm at the midportion Promus Premier stents, distally there was 60 percent stenosis which will be monitored. The LAD has significant disease proximally, patient has significantly tortuous thoracic and abdominal aorta. Deferred the the evaluation of the RODRIGEZ due to the use of large amount of contrast. The right coronary artery is a small none dominant artery was not even visualized during this study. Patient had another stent placed in the circumflex artery in [facility] in 2014, no recent workup for follow-up was done. continue to monitor at this time Heavily calcified thoracic and abdominal aorta. CTA done on 01/06/2014 revealed no aneurysm or occlusions or stenosis of abdominal aorta or major branches, continue to monitor Hyperlipidemia, continue to monitor. History of CVA. Continue to monitor. Mild carotid stenosis, nonobstructive disease bilaterally, has been followed in [facility], requesting to transfer is service back to my office. I will evaluate carotid ultrasound as an outpatient COPD/obstructive sleep apnea, Continue to monitor. History of prostate CA with questionable metastasis, patient expressed that it has been followed and managed at . He reported that it was slow growing and the recommendation was conservative management. Cauda equina syndrome, underwent surgery, patient expressed that he did not have full recovery Patient was seen and evaluated with Debra, examination performed, management plan was discussed, agree with the current scribed note, I made few changes to the note using Italic font Patient is breathing slightly better, on C Pap Discussed with Dr. Aburto and he will receive blood transfusion today Continue to monitor renal function closely. Clinical Quality Measures DVT/VTE Risk/Contraindication: Risk Factor Score Per Nursin RFS Level Per Nursing on Admit: 4+=Very High Supervisory-Addendum Brief Supervisory Addendum Participated in pt care: history, MDM, physical Personally performed: exam, history, MDM Care discussed with: DEBRA RODRÍGUEZ Nov 28, 2018 10:04 KIMBERLI BARRETT MD Nov 28, 2018 11:42
--- NOTE | 2018-11-28 10:11 | Physical Therapy Progress Note ---
Therapy Progress Note Patient is currently off bipap. Nurse states it is only so he can eat and after that he is going right back on. Nurse would like to hold PT at this time and try back in the afternoon. AKIN CANTU PT Nov 28, 2018 10:11
--- NOTE | 2018-11-28 14:37 | Progress Note - Surgery ---
[facility] 11/28/18 1437: Subjective Date Seen by a Provider: Nov 28, 2018 Time Seen by a Provider: 07:25 Subjective/Events-last exam Patient had significantly improved since yesterday evening. States that shortness of breath has also improved. Denies chest pain, fevers, chills, abdominal pain, n/v. Family member was concerned about CT results of incarcerated hernia. Colostomy had stool. Urine output was 1.18. WBC was 9.7. Review of Systems General: No Chills, No Other (fevers) Pulmonary: No Dyspnea Cardiovascular: No: Chest Pain Gastrointestinal: No: Nausea, Vomiting, Abdominal Pain Objective Exam Vital Signs Date Time Temp Pulse Resp B/P (MAP) Pulse Ox O2 Delivery O2 Flow Rate FiO2 11/28/18 14:22 90 Vapotherm 40.00 100 11/28/18 14:20 Vapotherm 100.00 11/28/18 12:53 36.4 70 22 164/88 98 NIV Bilevel 70 11/28/18 12:47 36.2 68 24 172/78 97 NIV Bilevel 70 11/28/18 12:39 36.4 69 22 174/78 98 NIV Bilevel 70 11/28/18 12:31 36.2 71 20 171/80 98 NIV Bilevel 70 11/28/18 12:00 94 NIV Bilevel 70 11/28/18 12:00 36.4 68 24 152/76 (101) NIV Bilevel 70.00 11/28/18 10:23 72 27 94 70.00 11/28/18 10:10 NIV Bilevel 70.00 11/28/18 08:00 94 Vapotherm 100 11/28/18 07:10 Vapotherm 40.00 100.00 11/28/18 07:09 91 Vapotherm 40.00 100 11/28/18 07:00 67 11/28/18 06:00 61 26 164/68 (100) 97 NIV Bilevel 50.00 11/28/18 05:00 65 22 168/71 (103) 95 NIV Bilevel 50.00 11/28/18 04:00 36.3 11/28/18 04:00 90 NIV Bilevel 50 11/28/18 04:00 64 23 154/69 (97) 95 NIV Bilevel 50.00 11/28/18 03:00 78 28 172/75 (107) 91 NIV Bilevel 50.00 11/28/18 02:04 73 25 95 50.00 11/28/18 02:00 75 171/77 (108) 90 NIV Bilevel 50.00 11/28/18 01:00 65 11/28/18 01:00 65 164/70 (101) 94 NIV Bilevel 50.00 11/28/18 00:14 36.3 11/28/18 00:00 64 157/67 (97) 94 NIV Bilevel 50.00 11/28/18 00:00 90 NIV Bilevel 50 11/27/18 23:00 66 32 157/65 (95) 94 NIV Bilevel 50.00 11/27/18 22:00 76 160/74 (102) 91 NIV Bilevel 50.00 11/27/18 21:58 76 26 94 50.00 11/27/18 21:00 74 171/69 (103) 94 NIV Bilevel 50.00 11/27/18 20:27 76 31 177/77 (110) 94 NIV Bilevel 50.00 11/27/18 20:00 87 18 184/83 (116) NIV Bilevel 50.00 11/27/18 20:00 90 NIV Bilevel 50 11/27/18 19:55 36.6 11/27/18 19:00 80 11/27/18 19:00 75 152/61 (91) 98 NIV Bilevel 50.00 11/27/18 18:53 73 31 96 50.00 11/27/18 18:00 75 26 165/70 (101) 98 NIV Bilevel 50.00 11/27/18 17:00 79 32 180/79 (112) 90 NIV Bilevel 50.00 11/27/18 16:02 90 NIV Bilevel 50 11/27/18 16:02 35.7 11/27/18 16:00 82 27 192/82 (118) 94 NIV Bilevel 50.00 11/27/18 15:58 79 91 50 11/27/18 15:42 35.7 11/27/18 15:00 80 16 182/98 (126) 92 NIV Bilevel 50.00 11/27/18 14:57 79 19 91 50.00 I & O 11/28/18 07:00 Intake Total 1730 ml Output Total 2900 ml Balance -1170 ml Capillary Refill : Less Than 3 Seconds General Appearance: No Apparent Distress, WD/WN HEENT: PERRL/EOMI Neck: Normal Inspection Respiratory: Chest Non Tender, No Respiratory Distress, Other (Requiring O2) Cardiovascular: Regular Rate, Rhythm, No Gallop, No Murmur Gastrointestinal: non tender, soft, other (ventral hernia incarcerated, left lower quadrant colostomy prolapsed, slight blood tinged, stomal herniation) Extremity: Non Tender Neurologic/Psychiatric: Alert, Normal Mood/Affect Skin: Normal Color Lymphatic: No Adenopathy Results Lab Laboratory Tests 11/28/18 03:25: White Blood Count 9.7, Red Blood Count 2.99L, Hemoglobin 8.0L, Hematocrit 26L, Mean Corpuscular Volume 87, Mean Corpuscular Hemoglobin 27, Mean Corpuscular Hemoglobin Concent 31L, Red Cell Distribution Width 18.7H, Platelet Count 349, Mean Platelet Volume 9.2, Neutrophils (%) (Auto) 87H, Lymphocytes (%) (Auto) 6L, Monocytes (%) (Auto) 7, Eosinophils (%) (Auto) 0, Basophils (%) (Auto) 0, Neutrophils # (Auto) 8.4H, Lymphocytes # (Auto) 0.5L, Monocytes # (Auto) 0.7, Eosinophils # (Auto) 0.0, Basophils # (Auto) 0.0, Sodium Level 136, Potassium Level 3.5L, Chloride Level 104, Carbon Dioxide Level 22, Anion Gap 10, Blood Urea Nitrogen 20H, Creatinine 0.91, Estimat Glomerular Filtration Rate > 60, BUN/Creatinine Ratio 22, Glucose Level 136H, Calcium Level 8.6, Phosphorus Level 3.2, Magnesium Level 2.0, B-Type Natriuretic Peptide 1462.8H 11/28/18 03:40: Blood Gas Puncture Site RIGHT RADIAL, Blood Gas Patient Temperature 36.8, Arter ial Blood pH 7.43, Arterial Blood Partial Pressure CO2 43, Arterial Blood Partial Pressure O2 71L, Arterial Blood HCO3 29H, Arterial Blood Total CO2 30.0, Arterial Blood Oxygen Saturation 95, Arterial Blood Base Excess 4.5H, Erick Test YES-POS, Blood Gas Ventilator Setting NO, Blood Gas Inspired Oxygen 50% 11/28/18 07:30: Vancomycin Level Trough 13.8 Microbiology 11/24/18 Blood Culture - Preliminary, Resulted No growth 11/24/18 Urine Culture - Final, Complete Mixed Bacterial Wendy Proteus mirabilis Assessment/Plan Assessment/Plan Assessment/Plan Pulmonary fibrosis, Prolapsed colostomy with blood tinged stool CHF with BNP of 1462.8 Pain control Continue oxygen Stomal hernia Clinical Quality Measures DVT/VTE Risk/Contraindication: Risk Factor Score Per Nursin RFS Level Per Nursing on Admit: 4+=Very High EWA MCCULLOUGH DO 11/28/18 2233: Subjective Subjective/Events-last exam Breathing easier, not on cpap at this time. Having stool out colostomy. No longer having any blood tinged output. Feeling better today. Denies fever sweats chills shortness of breath or chest pain. Objective Exam General Appearance: No Apparent Distress HEENT: PERRL/EOMI Neck: Normal Inspection Respiratory: Chest Non Tender, Other (Requiring O2, but breathing easier ) Cardiovascular: Regular Rate, Rhythm Gastrointestinal: non tender, soft, other (ventral hernia incarcerated, left lower quadrant colostomy prolapsed, + stool, stomal herniation) Extremity: Non Tender Neurologic/Psychiatric: Alert, Oriented x3 Skin: Normal Color Lymphatic: No Adenopathy Assessment/Plan Assessment/Plan Assessment/Plan prolapsed colostomy, stomal hernia, incarcerated v entral hernia breathing improved off of cpap at this time. Bleeding from colostomy resolved patient discussed that we need to continue to get overall health improved and then can consider surgical intervention unless becomes emergent. Patient in agreement with plan. Supervisory-Addendum Brief Verification & Attestation Participated in pt care: history, MDM, physical Personally performed: exam, history, MDM, supervision of care Care discussed with: Medical Student Procedures: n/a Results interpretation: Verified all documentation Verification and Attestation of Medical Student E/M Service A medical student performed and documented this service in my presence. I review ed and verified all information documented by the medical student and made modifications to such information, when appropriate. I personally performed the physical exam and medical decision making. Ewa Mccullough, Nov 28, 2018,22:32 [facility] Nov 28, 2018 14:37 EWA MCCULLOUGH DO Nov 28, 2018 22:33
--- NOTE | 2018-11-28 15:04 | Physical Therapy Progress Note ---
Therapy Progress Note Patient still on hold. Patient is on bipap. Nurse states that he was off for a short while and his O2 sat went down into the 60's. Will continue to monitor. AKIN CANTU PT Nov 28, 2018 15:04
--- NOTE | 2018-11-28 15:07 | NUR ---
RD ASSESSMENT PMHx: CAD, HTN, hypercholesterolemia; stroke; GERD; diverticulosis; CA(prostate) PT INTERACTION: Pt was awake and pleasant during nutrition assessment. Pt states current appetite as good and has been for some time. Pt states no issues with n/v at this time. Pt states some issues with constipation, but no issues with diarrhea. Pt states no recent wt changes. Note recent 9# wt loss x1mon, per chart review. Note pt has stage 2 pressure ulcer (unknown location), per chart review. ABNORMAL NUTRITION-RELATED LAB VALUES: Hgb 8.0 (L); Hct 26 (L); K 3.5 (L); BUN 20 (H); glu 136 (H) Est. kcal needs: 5703-0319 kcal (20-25 kcal/kg) Est. Pro needs: 107-128 g Pro (1.0-1.2 g Pro/kg) PES STATEMENT: Inadequate protein intake related to increased protein needs as evidenced by stage 2 pressure ulcer (unknown location) INTERVENTION: Continue with current diet order of regular diet. Add Ensure Enlive (vary) to meals BID. Provides 350 kcal and 20 g Pro per serving, for perceived benefits of wound healing. MONITOR/EVALUATE: PO Intake; Plan of Care; Hydration Status; Weight Status; Lab Values Claudia Ibarra MS, RD, LD [phone]
[2018-11-28] MEDS: hydrALAZINE (APESOLINE) 20 MG/ML VIAL IV PRN (18:48)
[2018-11-28] MEDS: MELATONIN 3 MG TABLET PO SCH (20:39)
[2018-11-28] MEDS: PANTOPRAZOLE 40 MG (PROTONIX) TAB PO SCH (20:39)
[2018-11-28] MEDS: ASPIRIN E.C. 81 MG (ECOTRIN) TAB PO SCH (20:40)
[2018-11-29] VITALS (27 sets, daily range): BP systolic 149–186; BP diastolic 60–83
[2018-11-29] MEDS: hydrALAZINE (APESOLINE) 20 MG/ML VIAL IV PRN (00:29)
[2018-11-29] MEDS: RT-ALBUTEROL/IPRATROPIUM 3 ML (DUONEB) VIAL INH SCH ×6 (02:59→21:52)
[2018-11-29 03:43] LABS: BASOPHILS % (AUTO) 0 % (0-10); EOSINOPHILS % (AUTO) 0 % (0-10); HEMATOCRIT 29 % (40-54); HEMOGLOBIN 8.9 G/DL (13.3-17.7); LYMPHOCYTES # (AUTO) 0.6 X 10^3 (1.0-4.0); LYMPHOCYTES % (AUTO) 6 % (12-44); MEAN CORPUSCULAR HEMOGLOBIN 27 PG (25-34); MEAN CORPUSCULAR HGB CONC 31 G/DL (32-36); MEAN CORPUSCULAR VOLUME 86 FL (80-99); MEAN PLATELET VOLUME 8.9 FL (7.4-10.4); MONOCYTES # (AUTO) 0.5 X 10^3 (0.0-1.0); MONOCYTES % (AUTO) 5 % (0-12); NEUTROPHILS # (AUTO) 9.9 X 10^3 (1.8-7.8); NEUTROPHILS % (AUTO) 90 % (42-75); PLATELET COUNT 356 10^3/uL (130-400); RED CELL DISTRIBUTION WIDTH 18.7 % (10.0-14.5); WHITE BLOOD COUNT 11.1 10^3/uL (4.3-11.0)
[2018-11-29 03:48] LABS: ABG BASE EXCESS 5.9 MMOL/L (-2.5-2.5); ABG OXYGEN SATURATION 98 % (94-100); ABG PCO2 44 MMHG (35-45); ABG PH 7.45 (7.37-7.43); ABG PO2 85 MMHG (79-93); ABG TCO2 31.4 MMOL/L (21.0-31.0)
[2018-11-29 03:49] LABS: ALLENS TEST YES-POS; INSPIRED O2 70%; PATIENT TEMP 36.5; VENTILATOR NO
[2018-11-29 04:08] LABS: BUN/CREATININE RATIO 25; CALCIUM 8.4 MG/DL (8.5-10.1); CARBON DIOXIDE 28 MMOL/L (21-32); CHLORIDE 104 MMOL/L (98-107); CREATININE SERUM 0.81 MG/DL (0.60-1.30); GFR ESTIMATED > 60; GLUCOSE 144 MG/DL (70-105); MAGNESIUM 2.2 MG/DL (1.6-2.4); PHOSPHORUS 2.6 MG/DL (2.3-4.7); POTASSIUM 3.7 MMOL/L (3.6-5.0); SODIUM 139 MMOL/L (135-145)
[2018-11-29] MEDS: PIPERACILLIN/TAZOBACTAM (BULK) 4.5 GM in NS (IVPB) 100 ML IV SCH ×3 (04:50→20:36)
[2018-11-29] MEDS: methylPREDNISolone 40 MG/ML (Solu-MEDROL) VIAL IV SCH ×4 (04:50→23:54)
[2018-11-29] MEDS: POTASSIUM CL 10MEQ/50ML IVPB 50 ML IV SCH (04:51)
[2018-11-29] MEDS: KCL 20 MEQ TAB (K-DUR) PO SCH (04:51)
[2018-11-29] MEDS: MAGNESIUM 1 GM/100 ML IVPB 100 ML IV SCH (04:51)
[2018-11-29] MEDS ORDERED: KCL 20 MEQ TAB (K-DUR) PO ONE (06:00)
--- NOTE | 2018-11-29 06:05 | Pulmonary Progress Note ---
Subjective Time Seen by a Provider: 05:00 Subjective/Events-last exam Currently on BiPAP Sepsis Event Evaluation Height, Weight, BMI Height: 5'10.00" Weight: 245lbs. 6.0oz. 111.879994gd; 32.67 BMI Method:Stated Exam Exam Vital Signs Date Time Temp Pulse Resp B/P (MAP) Pulse Ox O2 Delivery O2 Flow Rate FiO2 11/29/18 04:00 66 13 172/62 (98) 94 NIV Bilevel 65.00 11/29/18 03:52 NIV Bilevel 65 11/29/18 03:23 36.5 11/29/18 03:15 66 97 NIV Bilevel 65.00 11/29/18 03:00 70 18 165/71 (102) 94 NIV Bilevel 70.00 11/29/18 02:59 66 26 95 65.00 11/29/18 02:00 67 173/67 (102) 96 NIV Bilevel 70.00 11/29/18 01:00 64 11/29/18 01:00 64 20 158/60 (92) 93 NIV Bilevel 70.00 11/29/18 00:00 NIV Bilevel 70 11/29/18 00:00 62 29 177/73 (107) 94 NIV Bilevel 70.00 11/28/18 23:00 63 33 174/72 (106) 94 NIV Bilevel 70.00 11/28/18 22:12 63 22 94 70.00 11/28/18 22:00 64 27 165/71 (102) 94 NIV Bilevel 70.00 11/28/18 21:00 73 21 173/74 (107) 95 NIV Bilevel 70.00 11/28/18 20:00 NIV Bilevel 70 11/28/18 20:00 71 22 167/71 (103) 96 NIV Bilevel 70.00 11/28/18 20:00 36.8 11/28/18 19:00 84 11/28/18 19:00 84 148/93 (111) NIV Bilevel 70.00 11/28/18 18:49 83 25 94 70.00 11/28/18 18:00 25 149/85 (106) NIV Bilevel 70.00 11/28/18 17:00 70 24 157/67 (97) 96 Vapotherm 100.00 11/28/18 16:00 94 NIV Bilevel 70 11/28/18 16:00 36.4 11/28/18 16:00 70 180/86 (117) 98 Vapotherm 100.00 11/28/18 15:03 36.4 74 20 187/55 NIV Bilevel 70 11/28/18 15:00 76 187/85 (119) 98 Vapotherm 100.00 11/28/18 14:22 90 Vapotherm 40.00 100 11/28/18 14:20 Vapotherm 100.00 11/28/18 14:00 68 177/89 (118) 98 NIV Bilevel 70.00 11/28/18 13:05 77 11/28/18 13:00 71 43 182/87 (118) 98 NIV Bilevel 70.00 11/28/18 12:53 36.4 70 22 164/88 98 NIV Bilevel 70 11/28/18 12:47 36.2 68 24 172/78 97 NIV Bilevel 70 11/28/18 12:39 36.4 69 22 174/78 98 NIV Bilevel 70 11/28/18 12:31 36.2 71 20 171/80 98 NIV Bilevel 70 11/28/18 12:00 94 NIV Bilevel 70 11/28/18 12:00 36.4 68 24 152/76 (101) NIV Bilevel 70.00 11/28/18 11:00 68 152/76 (101) NIV Bilevel 70.00 11/28/18 10:23 72 27 94 70.00 11/28/18 10:10 NIV Bilevel 70.00 11/28/18 10:00 68 138/57 (84) Vapotherm 40.00 100.00 11/28/18 09:00 68 145/66 (92) 92 Vapotherm 40.00 100.00 11/28/18 08:00 67 20 161/65 (97) 94 Vapotherm 40.00 100.00 11/28/18 08:00 94 Vapotherm 100 11/28/18 07:10 Vapotherm 40.00 100.00 11/28/18 07:09 91 Vapotherm 40.00 100 11/28/18 07:00 67 11/28/18 07:00 66 19 160/70 (100) 92 NIV Bilevel 50.00 I & O 11/29/18 07:00 Intake Total 2590 ml Output Total 3675 ml Balance -1085 ml Height & Weight Height: 5'10.00" Weight: 245lbs. 6.0oz. 111.104724lf; 32.67 BMI Method:Stated General Appearance: Chronically ill, Moderate Distress, Obese HEENT: PERRL/EOMI Neck: Normal Inspection Respiratory: Chest Non Tender Cardiovascular: Regular Rate, Rhythm Capillary Refill: Less Than 3 Seconds Gastrointestinal: non tender, soft, other (ventral hernia incarcerated, left lower quadrant colostomy prolapsed, + stool, stomal herniation) Extremity: Non Tender Neurologic/Psychiatric: Alert, Oriented x3 Skin: Normal Color Lymphatic: No Adenopathy Results Lab Laboratory Tests 11/28/18 03:25 11/29/18 03:20 Assessment/Plan Assessment/Plan Acute on chronic respiratory failure -Vapotherm -Titrate for Sp02 90-94% - BiPAP QHS and PRN -SL IVF -CTA of chest - reviewed -Continue Zosyn, vanco -Await castillo cultures PNA with ARDS -Continue Vanco, Zosyn and Eraxis. Grade II dyastolic dysfunction -Continue IV bumex - spironolactone continue daily labs Hx of pulmonary fibrosis -Monitor prolapsed colostomy with blood per colostomy and stomal herniation/ventral hernia incarcerated -Surgery following Hx of cauda equina anemia s/p 1 unit PRBC -Monitor -Hb appears to be stable. Pt is high risk for DVT/PE PT's prognosis is guarded to poor. Will continue to monitor closely. LAUREN CHIN DO Nov 29, 2018 06:05
--- NOTE | 2018-11-29 06:15 | NUR ---
per dr willis give bumex now.
[2018-11-29] MEDS: BUMETANIDE 2.5 MG/10 ML (BUMEX) VIAL IV SCH (06:28)
--- NOTE | 2018-11-29 07:41 | Cardiology Progress Note ---
Subjective Date Seen by Provider: Nov 29, 2018 Time Seen by Provider: 07:39 Subjective/Events-last exam Patient is laying down in bed on BiPAP, was hypoxemic earlier Review of Systems General: No Chills, No Night Sweats; Fatigue, Malaise; No Appetite, No Other HEENT: No Head Aches, No Visual Changes, No Eye Pain, No Ear Pain, No Dysphasia, No Sinus Congestion, No Post Nasal Drip, No Sore Throat, No Other Pulmonary: Dyspnea; No Cough, No Pleuritic Chest Pain, No Other Cardiovascular: No: Chest Pain, Palpitations, Orthopnea, Paroxysmal Noc. Dyspnea, Edema, Lt Headedness, Other Objective-Cardiology Exam Last Set of Vital Signs Vital Signs 11/29/18 11/29/18 11/29/18 11/29/18 03:23 06:00 06:33 06:49 Temp 36.5 Pulse 65 Resp 9 B/P (MAP) 169/73 (105) Pulse Ox 91 O2 Delivery Vapotherm O2 Flow Rate 40.00 100.00 FiO2 100 Capillary Refill : Less Than 3 Seconds I&O Intake and Output 11/28/18 23:59 Intake Total 2490 ml Output Total 3600 ml Balance -1110 ml Intake Oral 1550 ml IV Total 865 ml Other 75 ml Output Urine Total 3600 ml General: Alert, Oriented X3, Cooperative, No Acute Distress HEENT: Atraumatic, PERRLA Neck: Supple Lungs: Other (IMPROVED AIR MOVEMENT THROUGHOUT WITH CRACKLES IN RIGHT UPPER LOBE AND BILATERAL LOWER LOBES) Heart: Regular Rate, Normal S1, Normal S2 Abdomen: Normal Bowel Sounds, Soft Extremities: No Clubbing, No Cyanosis, Other (trace edema BLE) Skin: No Rashes, No Significant Lesion Neuro: Normal Speech, Cranial Nerves 3-12 NL Psych/Mental Status: Mental Status NL, Mood NL Results Lab Laboratory Tests 11/29/18 03:20 A/P-Cardiology Admission Diagnosis Prolapsed colostomy bag Malignant hypertension COPD Coronary artery disease Assessment/Plan Shortness of breath, acute exacerbation COPD, chronic respiratory failure, was on Vapotherm, currently on BiPAP due to hypoxemia and failure to maintain oxygen saturation. Feeling better. Elevated BNP, worsening today, received blood transfusion and IV fluid, I'll give one dose of Lasix and evaluate tolerance and response. Prolapsed of colostomy, constipation, reporting improvement in his constipation. Managed by Dr. Mccullough Hypertension, resistant to multiple medication, continue on current medication monitor blood pressure Anemia, received blood transfusion yesterday, continue to monitor H&H Acute on chronic renal failure, monitor renal function Elevated BNP, echocardiogram done in September 2018 showing normal left ventricular size with ejection fraction 55-65 percent, grade 2 diastolic dysfunction, mild mitral regurgitation, aortic valve sclerosis, pulmonary hypertension with PA pressure of 50 mmHg. Hypertensive heart disease. Continue to monitor Coronary artery disease, history of CABG x3 done in 1999 using RODRIGEZ to LAD, vein graft to the first obtuse marginal, vein graft to the left posterolateral branch of the left circumflex artery. Cardiac catheterization was done in November 2013 showing occluded vein graft to the left circumflex artery. Patient had 2 stents in the creek circumflex artery using 3.516 mm proximally and 3.520 mm at the midportion Promus Premier stents, distally there was 60 percent stenosis which will be monitored. The LAD has significant disease proximally, patient has significantly tortuous thoracic and abdominal aorta. Deferred the the evaluation of the RODRIGEZ due to the use of large amount of contrast. The right coronary artery is a small none dominant artery was not even visualized during this study. Patient had another stent placed in the circumflex artery in [facility] in 2014, no recent workup for follow-up was done. continue to monitor at this time Heavily calcified thoracic and abdominal aorta. CTA done on 01/06/2014 revealed no aneurysm or occlusions or stenosis of abdominal aorta or major branches, continue to monitor Hyperlipidemia, continue to monitor. History of CVA. Continue to monitor. Mild carotid stenosis, nonobstructive disease bilaterally, has been followed in [facility], requesting to transfer is service back to my office. I will evaluate carotid ultrasound as an outpatient COPD/obstructive sleep apnea, Continue to monitor. History of prostate CA with questionable metastasis, patient expressed that it has been followed and managed at . He reported that it was slow growing and the recommendation was conservative management. Cauda equina syndrome, underwent surgery, patient expressed that he did not have full recovery Clinical Quality Measures DVT/VTE Risk/Contraindication: Risk Factor Score Per Nursin RFS Level Per Nursing on Admit: 4+=Very High KIMBERLI BARRETT MD Nov 29, 2018 07:41
[2018-11-29] MEDS ORDERED: FUROSEMIDE 40 MG/4 ML INJ (LASIX) IVP NR (07:45)
--- NOTE | 2018-11-29 08:10 | Diagnostic Imaging Report ---
INDICATION: Dyspnea. Comparison made with prior examination from 11/28/2018. FINDINGS: There is cardiomegaly and moderate congestive failure. There are bibasilar infiltrates right greater than left. There is no pleural effusion or pneumothorax. There has been previous median sternotomy and coronary bypass. IMPRESSION: Bibasilar infiltrates right greater than left. Cardiomegaly and moderate central pulmonary venous congestion. Dictated by: Dictated on workstation # [id number]
[2018-11-29] MEDS: CLOPIDOGREL 75 MG (PLAVIX) TABLET PO SCH (08:32)
[2018-11-29] MEDS: GABAPENTIN 600 MG (NEURONTIN) TAB PO SCH ×2 (08:32→20:07)
[2018-11-29] MEDS: CARVEDILOL 12.5 MG (COREG) TABLET PO SCH ×2 (08:32→20:08)
[2018-11-29] MEDS: cloNIDine 0.2 MG (CATAPRES) TAB PO SCH ×2 (08:32→20:07)
[2018-11-29] MEDS: MULTIVIT W/MINERALS TAB (THERAGRAN M) PO SCH (08:32)
[2018-11-29] MEDS: amLODIPine 10 MG (NORVASC) TAB PO SCH (08:32)
[2018-11-29] MEDS: ENOXAPARIN 40 MG/0.4 ML (LOVENOX) SYR SC SCH (08:32)
[2018-11-29] MEDS: DULoxetine 30 MG (CYMBALTA) CAP PO SCH (08:33)
[2018-11-29] MEDS: SPIRONOLACTONE 100 MG (ALDACTONE) TABLET PO SCH (08:33)
[2018-11-29] MEDS: VITAMIN D3 400 UNITS (CHOLECALCIFEROL) TABLET PO SCH (08:33)
[2018-11-29] MEDS: ANIDULAFUNGIN INJECTION 100 MG in NS (IVPB) 100 ML IV SCH (08:34)
[2018-11-29] MEDS: VANCOMYCIN 1500 MG/NS 500 ML IVPB IV SCH ×2 (08:34)
[2018-11-29] MEDS: POLYETHYLENE GLYCOL 17 GM (MIRALAX) PACK PO SCH (08:35)
[2018-11-29] MEDS: POT PHOS/NA PHOS (K-PHOS NEUTRAL) PO NR ×2 (08:37→20:07)
--- NOTE | 2018-11-29 08:59 | Progress Note ---
Subjective Date Seen by a Provider: Nov 29, 2018 Time Seen by a Provider: 08:40 Subjective/Events-last exam PT REPORTS THAT HE FEELS BETTER WITH THE BIPAP IN PLACE WHEN COMPARED TO EARLIER TODAY. HE DENIES CHEST PAIN. HE DOES COMPLAIN OF PERSISTENT SHORTNESS OF BREATH. HE IS HUNGRY, WOULD LIKE TO EAT Review of Systems General: Fatigue, Malaise HEENT: No Dysphasia Pulmonary: Dyspnea, Cough Cardiovascular: No: Chest Pain Gastrointestinal: No: Nausea, Abdominal Pain Genitourinary: Retention (CHRONIC WITH SUPRAPUBIC CATHETER IN PLACE) Neurological: Weakness Objective Exam Last Set of Vital Signs Vital Signs Date Time Temp Pulse Resp B/P (MAP) Pulse Ox O2 Delivery O2 Flow Rate FiO2 11/29/18 08:00 73 167/76 (106) 95 Vapotherm 40.00 100.00 11/29/18 07:00 11 11/29/18 06:33 100 11/29/18 03:23 36.5 Capillary Refill : Less Than 3 Seconds I&O Intake and Output 11/29/18 00:00 Intake Total 2490 ml Output Total 3600 ml Balance -1110 ml Intake Oral 1550 ml IV Total 865 ml Other 75 ml Output Urine Total 3600 ml General: Alert, Oriented X3, Cooperative, No Acute Distress HEENT: Atraumatic Neck: Supple Lungs: Other (CRACKLES IN BASES AND UPPER RIGHT CHEST) Heart: Regular Rate Abdomen: Normal Bowel Sounds, Soft Skin: No Rashes, No Breakdown Psych/Mental Status: Mental Status NL, Mood NL Results Lab Laboratory Tests 11/29/18 03:20: White Blood Count 11.1H, Red Blood Count 3.32L, Hemoglobin 8.9L, Hematocrit 29L, Mean Corpuscular Volume 86, Mean Corpuscular Hemoglobin 27, Mean Corpuscular Hemoglobin Concent 31L, Red Cell Distribution Width 18.7H, Platelet Count 356, Mean Platelet Volume 8.9, Neutrophils (%) (Auto) 90H, Lymphocytes (%) (Auto) 6L, Monocytes (%) (Auto) 5, Eosinophils (%) (Auto) 0, Basophils (%) (Auto) 0, Neutrophils # (Auto) 9.9H, Lymphocytes # (Auto) 0.6L, Monocytes # (Auto) 0.5, Eosinophils # (Auto) 0.0, Basophils # (Auto) 0.0, Sodium Level 139, Potassium Level 3.7, Chloride Level 104, Carbon Dioxide Level 28, Anion Gap 7, Blood Urea Nitrogen 20H, Creatinine 0.81, Estimat Glomerular Filtration Rate > 60, BUN/Creatinine Ratio 25, Glucose Level 144H, Calcium Level 8.4L, Phosphorus Level 2.6, Magnesium Level 2.2 11/29/18 03:33: Blood Gas Puncture Site R RAD, Blood Gas Patient Temperature 36.5, Arterial Blood pH 7.45H, Arterial Blood Partial Pressure CO2 44, Arterial Blood Partial Pressure O2 85, Arterial Blood HCO3 30H, Arterial Blood Total CO2 31.4H, Arterial Blood Oxygen Saturation 98, Arterial Blood Base Excess 5.9H, Erick Test YES-POS, Blood Gas Ventilator Setting NO, Blood Gas Inspired Oxygen 70% Microbiology 11/24/18 Blood Culture - Preliminary, Resulted No growth 11/24/18 Urine Culture - Final, Complete Mixed Bacterial Wendy Proteus mirabilis Assessment/Plan Assessment/Plan Assess & Plan/Chief Complaint PULMONARY FIBROSIS WITH WORSENING DYSPNEA AND HYPOXEMIA WITH CHRONIC OXYGEN THERAPY PROLAPSED COLOSTOMY BLOOD PER COLOSTOMY INCARCERATED VENTRAL/STOMAL HERNIA CHRONIC ANEMIA CHRONIC DECUBITUS ULCERS CHRONIC OBSTRUCTIVE SLEEP APNEA CORONARY ARTERY DISEASE 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 LEUKOCYTOSIS HYPERKALEMIA (NOW RESOLVED) HYPERMAGNESEMIA PULMONARY FIBROSIS WITH WORSENING DYSPNEA AND HYPOXEMIA WITH CHRONIC OXYGEN THERAPY - PT ON IV ANTIBIOTICS - CONTINUE WITH CURRENT MANAGEMENT - ZOSYN, VANC AND ERAXIS - THE CT ON ADMISSION WAS NEGATIVE FOR PULMONARY EMBOLI AND THE REPEAT CT SCAN WAS NEGATIVE FOR PULMONARY EMBOLI, DID SHOW PLEURAL EFFUSIONS AND CHEST XRAY TODAY SHOWED GROUND GLASS OPACITIES. - CONTINUE WITH VAPOTHERM, WEAN ABLE - CONTINUE WITH ICU MANAGEMENT OF THIS PATIENT - PT HAD WORSENING SYMPTOMS OVERNIGHT AND HE HAD TO BE PLACED BACK ON BIPAP PROLAPSED COLOSTOMY AND BLOOD PER COLOSTOMY WITH INCARCERATED VENTRAL/STOMAL HERNIA - DEFER TO DR. PAN - AT THIS TIME WE ARE WAITING ON ANY SURGICAL INTERVENTION DUE TO HIS PULMONARY STATUS CHRONIC ANEMIA - HGB 8.9 - REPEAT LABS, IF HIS HGB DROPS BELOW 8 HE WILL NEED REPEAT TRANSFUSION CHRONIC DECUBITUS ULCERS - WOUND CARE CONSULTED CHRONIC OBSTRUCTIVE SLEEP APNEA CORONARY ARTERY DISEASE - DR. BARRETT CONSULTED - APPRECIATE HIS INPUT ON THIS COMPLICATED PATIENT. CAUDA EQUINA SYNDROME - AT THIS TIME - WE WILL WAIT ON ANY THERAPY - DUE TO PT'S PULMONARY DECONDITIONING AND INABILITY TO LEAVE ROOM. CHRONIC INDWELLING SUPRAPUBIC CATHETER LEUKOCYTOSIS - MONITOR WBC'S, PT ON SOLUMEDROL 40MG IV Q6 HR HYPERKALEMIA (NOW RESOLVED) HYPERMAGNESEMIA - MONITOR, REPLACE NEEDED OVERALL PROGNOSIS SOIL EXPERT IS A POOR PROGNOSIS DUE TO HIS MULTIPLE CO-MORBID CONDITIONS. I HAVE HAD A CONVERSATION WITH ALBINA IN THE OFFICE AT HIS LAST OFFICE VISIT - INSTIGATED BY ALBINA HIMSELF. HE UNDERSTANDS THAT WITH RECURRENT INFECTIONS, HIS RISK OF GREATLY INCREASES AND HE HAS HIGH RISK FOR IN THE NEXT 6-12 MONTHS. Clinical Quality Measures DVT/VTE Risk/Contraindication: Risk Factor Score Per Nursin RFS Level Per Nursing on Admit: 4+=Very High FEDE BUTLER MD Nov 29, 2018 08:58
--- NOTE | 2018-11-29 10:15 | NUR ---
Palliative Care RN was finally able to catch patient without company in room to have an educational discussion about the hospice benefit. He was very attentive and seemed to grasp the benefit potential to himself and his family. He is encouraged to speak with Dr. Darleen Aburto about any further questions he might have in regard to hospice and his prognosis.
--- NOTE | 2018-11-29 10:48 | Physical Therapy Progress Note ---
Therapy Progress Note Per Dr. Aburto, No PT indicated at this time. PT will require new orders to resume therapy when patient is deemed medically stable. He remains on BiPap and desats with minimal activity per RN report. DELANO MONTGOMERY PT Nov 29, 2018 10:48
[2018-11-29] MEDS: morphine INJ 10 MG/ML 1ML (SYR OR VIAL) IVP PRN ×3 (17:40→23:56)
[2018-11-29] MEDS: MELATONIN 3 MG TABLET PO SCH (20:07)
[2018-11-29] MEDS: PANTOPRAZOLE 40 MG (PROTONIX) TAB PO SCH (20:07)
[2018-11-29] MEDS: ASPIRIN E.C. 81 MG (ECOTRIN) TAB PO SCH (20:08)
[2018-11-30] VITALS (28 sets, daily range): BP systolic 135–189; BP diastolic 57–103
[2018-11-30] MEDS: hydrALAZINE (APESOLINE) 20 MG/ML VIAL IV PRN (00:09)
[2018-11-30] MEDS: VITAMIN D3 400 UNITS (CHOLECALCIFEROL) TABLET PO SCH ×3 (00:11→19:55)
[2018-11-30] MEDS: RT-ALBUTEROL/IPRATROPIUM 3 ML (DUONEB) VIAL INH SCH ×6 (03:10→22:42)
[2018-11-30 03:12] LABS: BASOPHILS % (AUTO) 0 % (0-10); EOSINOPHILS % (AUTO) 0 % (0-10); HEMATOCRIT 29 % (40-54); HEMOGLOBIN 9.2 G/DL (13.3-17.7); LYMPHOCYTES # (AUTO) 0.7 X 10^3 (1.0-4.0); LYMPHOCYTES % (AUTO) 6 % (12-44); MEAN CORPUSCULAR HEMOGLOBIN 27 PG (25-34); MEAN CORPUSCULAR HGB CONC 32 G/DL (32-36); MEAN CORPUSCULAR VOLUME 86 FL (80-99); MEAN PLATELET VOLUME 9.2 FL (7.4-10.4); MONOCYTES # (AUTO) 0.5 X 10^3 (0.0-1.0); MONOCYTES % (AUTO) 4 % (0-12); NEUTROPHILS # (AUTO) 9.6 X 10^3 (1.8-7.8); NEUTROPHILS % (AUTO) 89 % (42-75); PLATELET COUNT 352 10^3/uL (130-400); RED CELL DISTRIBUTION WIDTH 18.4 % (10.0-14.5); WHITE BLOOD COUNT 10.7 10^3/uL (4.3-11.0)
[2018-11-30 03:40] LABS: BUN/CREATININE RATIO 28; CALCIUM 8.4 MG/DL (8.5-10.1); CARBON DIOXIDE 28 MMOL/L (21-32); CHLORIDE 100 MMOL/L (98-107); GFR ESTIMATED > 60; GLUCOSE 157 MG/DL (70-105); MAGNESIUM 2.4 MG/DL (1.6-2.4); PHOSPHORUS 2.9 MG/DL (2.3-4.7); POTASSIUM 3.7 MMOL/L (3.6-5.0); SODIUM 136 MMOL/L (135-145)
[2018-11-30] MEDS: morphine INJ 10 MG/ML 1ML (SYR OR VIAL) IVP PRN ×3 (04:08→12:23)
[2018-11-30 04:22] LABS: ABG BASE EXCESS 5.6 MMOL/L (-2.5-2.5); ABG OXYGEN SATURATION 91 % (94-100); ABG PCO2 48 MMHG (35-45); ABG PH 7.41 (7.37-7.43); ABG PO2 66 MMHG (79-93); ABG TCO2 31.8 MMOL/L (21.0-31.0)
[2018-11-30 04:23] LABS: ALLENS TEST POSITIVE; INSPIRED O2 50% BIPAP; PATIENT TEMP 36.5; VENTILATOR NO
--- NOTE | 2018-11-30 04:45 | Progress Note - Surgery ---
Subjective Date Seen by a Provider: Nov 29, 2018 Time Seen by a Provider: 07:20 Subjective/Events-last exam Patient is was feeling okay, but was optimistic that he would feel better in the afternoon. He was hypoxic while eating breakfast with an O2 of 77%. Was going to be switched back to BiPAP. Was in pain but had not currently had his pain medication. Colostomy was functioning. Urine output at 1.4 ml/kg/hr. CXR on 11/28 showed ex tensive airspace opacities that were stable on the left, but increased on the right. Review of Systems General: No Chills, No Other (fever) Pulmonary: Dyspnea; No Cough, No Pleuritic Chest Pain Cardiovascular: No: Chest Pain Gastrointestinal: No: Nausea, Vomiting, Abdominal Pain Objective Exam Vital Signs Date Time Temp Pulse Resp B/P (MAP) Pulse Ox O2 Delivery O2 Flow Rate FiO2 11/30/18 04:00 NIV Bilevel 55 11/30/18 04:00 60 18 150/58 (88) 93 NIV Bilevel 50.00 11/30/18 03:16 NIV Bilevel 50.00 11/30/18 03:11 64 36 95 55.00 11/30/18 02:00 58 23 170/75 (106) 98 NIV Bilevel 55.00 11/30/18 01:00 59 22 165/71 (102) 97 NIV Bilevel 55.00 11/30/18 00:55 61 11/30/18 00:00 NIV Bilevel 55 11/30/18 00:00 36.3 11/30/18 00:00 66 9 166/74 (104) 92 NIV Bilevel 55.00 11/29/18 22:00 27 163/70 (101) 96 NIV Bilevel 55.00 11/29/18 21:52 27 26 94 55.00 11/29/18 21:00 63 9 181/80 (113) 94 NIV Bilevel 55.00 11/29/18 20:00 70 12 171/69 (103) NIV Bilevel 55.00 11/29/18 20:00 NIV Bilevel 55 11/29/18 20:00 36.8 11/29/18 19:13 22 24 94 55.00 11/29/18 19:10 70 11/29/18 19:00 71 17 150/74 (99) 92 NIV Bilevel 55.00 11/29/18 18:00 65 29 176/77 (110) 95 NIV Bilevel 55.00 11/29/18 17:00 72 14 154/76 (102) 98 NIV Bilevel 55.00 11/29/18 16:38 NIV Bilevel 55.00 11/29/18 16:04 36.4 11/29/18 16:00 72 14 154/76 (102) 98 Vapotherm 40.00 100.00 11/29/18 16:00 98 NIV Bilevel 65 11/29/18 15:00 71 149/83 (105) Vapotherm 40.00 100.00 11/29/18 14:26 77 19 96 65.00 11/29/18 14:00 73 18 159/77 (104) Vapotherm 40.00 100.00 11/29/18 13:00 68 25 165/78 (107) Vapotherm 40.00 100.00 11/29/18 12:27 71 11/29/18 12:00 98 NIV Bilevel 65 11/29/18 12:00 71 9 177/81 (113) Vapotherm 40.00 100.00 11/29/18 12:00 36.6 11/29/18 11:00 71 16 179/83 (115) 96 Vapotherm 40.00 100.00 11/29/18 10:24 68 19 96 65.00 11/29/18 10:00 69 12 162/73 (102) 95 Vapotherm 40.00 100.00 11/29/18 09:00 71 23 186/82 (116) 96 Vapotherm 40.00 100.00 11/29/18 08:00 73 167/76 (106) 95 Vapotherm 40.00 100.00 11/29/18 08:00 98 NIV Bilevel 65 11/29/18 07:00 65 11 163/76 (105) 90 Vapotherm 40.00 100.00 11/29/18 07:00 64 11/29/18 06:49 65 9 91 Vapotherm 40.00 100.00 11/29/18 06:33 90 Vapotherm 40.00 100 11/29/18 06:00 62 8 169/73 (105) 92 NIV Bilevel 65.00 I & O 11/30/18 07:00 Intake Total 2160 ml Output Total 4050 ml Balance -1890 ml Capillary Refill : Less Than 3 Seconds General Appearance: Chronically ill, Mild Distress HEENT: PERRL/EOMI Neck: Normal Inspection Respiratory: Chest Non Tender, Accessory Muscle Use Cardiovascular: Regular Rate, Rhythm Gastrointestinal: non tender, soft, other (ventral hernia incarcerated, left lower quadrant colostomy prolapsed, + stool, stomal herniation) Extremity: Non Tender Neurologic/Psychiatric: Alert, Oriented x3 Skin: Normal Color Lymphatic: No Adenopathy Results Lab Laboratory Tests 11/29/18 11:45: Lab Scanned Report Transfusion Reaction Form 11/30/18 03:05: White Blood Count 10.7, Red Blood Count 3.38L, Hemoglobin 9.2L, Hematocrit 29L, Mean Corpuscular Volume 86, Mean Corpuscular Hemoglobin 27, Mean Corpuscular Hemoglobin Concent 32, Red Cell Distribution Width 18.4H, Platelet Count 352, Mean Platelet Volume 9.2, Neutrophils (%) (Auto) 89H, Lymphocytes (%) (Auto) 6L, Monocytes (%) (Auto) 4, Eosinophils (%) (Auto) 0, Basophils (%) (Auto) 0, Neutrophils # (Auto) 9.6H, Lymphocytes # (Auto) 0.7L, Monocytes # (Auto) 0.5, Eosinophils # (Auto) 0.0, Basophils # (Auto) 0.0, Sodium Level 136, Potassium Level 3.7, Chloride Level 100, Carbon Dioxide Level 28, Anion Gap 8, Blood Urea Nitrogen 22H, Creatinine 0.80, Estimat Glomerular Filtration Rate > 60, BUN/Creatinine Ratio 28, Glucose Level 157H, Calcium Level 8.4L, Phosphorus Level 2.9, Magnesium Level 2.4, B-Type Natriuretic Peptide 1404.1H 11/30/18 04:14: Blood Gas Puncture Site LEFT RADIAL, Blood Gas Patient Temperature 36.5, Arterial Blood pH 7.41, Arterial Blood Partial Pressure CO2 48H, Arterial Blood Partial Pressure O2 66L, Arterial Blood HCO3 30H, Arterial Blood Total CO2 31.8H , Arterial Blood Oxygen Saturation 91L, Arterial Blood Base Excess 5.6H, Erick Test POSITIVE, Blood Gas Ventilator Setting NO, Blood Gas Inspired Oxygen 50% BIPAP Microbiology 11/24/18 Blood Culture - Final, Complete No growth 11/28/18 MRSA Screen - Final, Complete MRSA not isolated 11/24/18 Urine Culture - Final, Complete Mixed Bacterial Wendy Proteus mirabilis Assessment/Plan Assessment/Plan Assessment/Plan Continue BiPAP. Monitor O2 levels prolapsed colostomy, stomal hernia, incarcerated v entral hernia breathing improved off of cpap at this time. Bleeding from colostomy resolved patient discussed that we need to continue to get overall health improved and then can consider surgical intervention unless becomes emergent. Patient in agreement with plan. Clinical Quality Measures DVT/VTE Risk/Contraindication: Risk Factor Score Per Nursin RFS Level Per Nursing on Admit: 4+=Very High [facility] STUDEN Nov 30, 2018 04:44
[2018-11-30] MEDS ORDERED: KCL 20 MEQ TAB (K-DUR) PO ONE (05:30)
--- NOTE | 2018-11-30 05:31 | Pulmonary Progress Note ---
Subjective Time Seen by a Provider: 06:20 Subjective/Events-last exam Currently on BiPAP Sepsis Event Evaluation Height, Weight, BMI Height: 5'10.00" Weight: 245lbs. 6.0oz. 111.512427dx; 32.67 BMI Method:Stated Exam Exam Vital Signs Date Time Temp Pulse Resp B/P (MAP) Pulse Ox O2 Delivery O2 Flow Rate FiO2 11/30/18 04:00 NIV Bilevel 55 11/30/18 04:00 60 18 150/58 (88) 93 NIV Bilevel 50.00 11/30/18 03:16 NIV Bilevel 50.00 11/30/18 03:11 64 36 95 55.00 11/30/18 02:00 58 23 170/75 (106) 98 NIV Bilevel 55.00 11/30/18 01:00 59 22 165/71 (102) 97 NIV Bilevel 55.00 11/30/18 00:55 61 11/30/18 00:00 NIV Bilevel 55 11/30/18 00:00 36.3 11/30/18 00:00 66 9 166/74 (104) 92 NIV Bilevel 55.00 11/29/18 22:00 27 163/70 (101) 96 NIV Bilevel 55.00 11/29/18 21:52 27 26 94 55.00 11/29/18 21:00 63 9 181/80 (113) 94 NIV Bilevel 55.00 11/29/18 20:00 70 12 171/69 (103) NIV Bilevel 55.00 11/29/18 20:00 NIV Bilevel 55 11/29/18 20:00 36.8 11/29/18 19:13 22 24 94 55.00 11/29/18 19:10 70 11/29/18 19:00 71 17 150/74 (99) 92 NIV Bilevel 55.00 11/29/18 18:00 65 29 176/77 (110) 95 NIV Bilevel 55.00 11/29/18 17:00 72 14 154/76 (102) 98 NIV Bilevel 55.00 11/29/18 16:38 NIV Bilevel 55.00 11/29/18 16:04 36.4 11/29/18 16:00 72 14 154/76 (102) 98 Vapotherm 40.00 100.00 11/29/18 16:00 98 NIV Bilevel 65 11/29/18 15:00 71 149/83 (105) Vapotherm 40.00 100.00 11/29/18 14:26 77 19 96 65.00 11/29/18 14:00 73 18 159/77 (104) Vapotherm 40.00 100.00 11/29/18 13:00 68 25 165/78 (107) Vapotherm 40.00 100.00 11/29/18 12:27 71 11/29/18 12:00 98 NIV Bilevel 65 11/29/18 12:00 71 9 177/81 (113) Vapotherm 40.00 100.00 11/29/18 12:00 36.6 11/29/18 11:00 71 16 179/83 (115) 96 Vapotherm 40.00 100.00 11/29/18 10:24 68 19 96 65.00 11/29/18 10:00 69 12 162/73 (102) 95 Vapotherm 40.00 100.00 11/29/18 09:00 71 23 186/82 (116) 96 Vapotherm 40.00 100.00 11/29/18 08:00 73 167/76 (106) 95 Vapotherm 40.00 100.00 11/29/18 08:00 98 NIV Bilevel 65 11/29/18 07:00 65 11 163/76 (105) 90 Vapotherm 40.00 100.00 11/29/18 07:00 64 11/29/18 06:49 65 9 91 Vapotherm 40.00 100.00 11/29/18 06:33 90 Vapotherm 40.00 100 11/29/18 06:00 62 8 169/73 (105) 92 NIV Bilevel 65.00 I & O 11/30/18 07:00 Intake Total 2160 ml Output Total 4050 ml Balance -1890 ml Height & Weight Height: 5'10.00" Weight: 245lbs. 6.0oz. 111.809649rf; 32.67 BMI Method:Stated General Appearance: Chronically ill, Mild Distress HEENT: PERRL/EOMI Neck: Normal Inspection Respiratory: Chest Non Tender, Accessory Muscle Use Cardiovascular: Regular Rate, Rhythm Capillary Refill: Less Than 3 Seconds Gastrointestinal: non tender, soft, other (ventral hernia incarcerated, left lower quadrant colostomy prolapsed, + stool, stomal herniation) Extremity: Non Tender Neurologic/Psychiatric: Alert, Oriented x3 Skin: Normal Color Lymphatic: No Adenopathy Results Lab Laboratory Tests 11/29/18 03:20 11/30/18 03:05 Assessment/Plan Assessment/Plan Acute on chronic respiratory failure -Vapotherm -Titrate for Sp02 90-94% - BiPAP QHS and PRN -SL IVF -CTA of chest - reviewed -Continue Zosyn, vanco -Await castillo cultures PNA with ARDS -D/C Vanco, -Zosyn- continue for total 10days and Eraxis. -Continue Bumex -Continue to monitor -Pt is DNR Grade II dyastolic dysfunction -Continue IV bumex 2mg daily - spironolactone continue daily labs Hx of pulmonary fibrosis -Monitor prolapsed colostomy with blood per colostomy and stomal herniation/ventral hernia incarcerated -Surgery following Hx of cauda equina anemia -Monitor -Hb appears to be stable. Pt is high risk for DVT/PE PT's prognosis is guarded to poor. Will continue to monitor closely. LAUREN CHIN DO Nov 30, 2018 05:31
[2018-11-30] MEDS: PIPERACILLIN/TAZOBACTAM (BULK) 4.5 GM in NS (IVPB) 100 ML IV SCH ×3 (06:06→19:54)
[2018-11-30] MEDS: methylPREDNISolone 40 MG/ML (Solu-MEDROL) VIAL IV SCH ×4 (06:06→21:42)
[2018-11-30] MEDS: BUMETANIDE 2.5 MG/10 ML (BUMEX) VIAL IV SCH (06:07)
[2018-11-30] MEDS: KCL 20 MEQ TAB (K-DUR) PO SCH (06:16)
[2018-11-30] MEDS: MAGNESIUM 1 GM/100 ML IVPB 100 ML IV SCH (06:16)
[2018-11-30] MEDS: POTASSIUM CL 10MEQ/50ML IVPB 50 ML IV SCH (06:16)
[2018-11-30 06:22] LABS: LYMPHOCYTES % (MANUAL) 8 %; MONOCYTES % (MANUAL) 4 %; NEUTROPHILS % (MANUAL) 88 %
--- NOTE | 2018-11-30 08:08 | Physical Therapy Progress Note ---
Therapy Progress Note Patient continues to require BiPap and no orders received due to Dr. Aburto stated prior to ICU admit to dismiss patient from services due to decline in medical status. DELANO MONTGOMERY PT Nov 30, 2018 08:08
[2018-11-30] MEDS: ENOXAPARIN 40 MG/0.4 ML (LOVENOX) SYR SC SCH (08:11)
[2018-11-30] MEDS: amLODIPine 10 MG (NORVASC) TAB PO SCH (08:12)
[2018-11-30] MEDS: SPIRONOLACTONE 100 MG (ALDACTONE) TABLET PO SCH (08:13)
[2018-11-30] MEDS: DULoxetine 30 MG (CYMBALTA) CAP PO SCH (08:13)
[2018-11-30] MEDS: GABAPENTIN 600 MG (NEURONTIN) TAB PO SCH ×2 (08:13→19:55)
[2018-11-30] MEDS: CARVEDILOL 12.5 MG (COREG) TABLET PO SCH ×2 (08:14→19:55)
[2018-11-30] MEDS: CLOPIDOGREL 75 MG (PLAVIX) TABLET PO SCH (08:14)
[2018-11-30] MEDS: ANIDULAFUNGIN INJECTION 100 MG in NS (IVPB) 100 ML IV SCH (08:14)
[2018-11-30] MEDS: POLYETHYLENE GLYCOL 17 GM (MIRALAX) PACK PO SCH (08:14)
[2018-11-30] MEDS: cloNIDine 0.2 MG (CATAPRES) TAB PO SCH ×2 (08:14→19:55)
[2018-11-30] MEDS: MULTIVIT W/MINERALS TAB (THERAGRAN M) PO SCH (08:14)
--- NOTE | 2018-11-30 08:17 | Diagnostic Imaging Report ---
INDICATION: Dyspnea. Compared 11/29/2018 FINDINGS: Five lobed infiltrates unchanged. Cardiomegaly unchanged. Mediastinal contours unchanged in a patient with some vascular tortuosity and prominent mediastinal fat. No pneumothorax. Small amounts of pleural fluid showed no definite change. IMPRESSION: No significant change in the appearance of the chest. Dictated by: Dictated on workstation # [id number]
--- NOTE | 2018-11-30 08:41 | Progress Note ---
Subjective Date Seen by a Provider: Nov 30, 2018 Time Seen by a Provider: 08:48 Subjective/Events-last exam PT REPORTS THAT HE IS FEELING BETTER TODAY. YESTERDAY WAS A ROUGH DAY BECAUSE HE WANTED TO EAT AND COULD NOT TOLERATE BEING OFF OF THE BIPAP VERY LONG. HE STATES THAT HE HAS CPAP IN PLACE AND FEELS BETTER WITH IT ON AT THIS TIME. HE STATES THAT HE DOES FEEL HUNGRY. Review of Systems General: No Chills; Fatigue HEENT: No Head Aches Pulmonary: Dyspnea, Cough Cardiovascular: No: Chest Pain, Palpitations Gastrointestinal: Abdominal Pain (INTERMITTENT); No: Nausea Genitourinary: Other (CHRONIC NAPIER IN PLACE) Neurological: Weakness; No: Confusion Objective Exam Last Set of Vital Signs Vital Signs Date Time Temp Pulse Resp B/P (MAP) Pulse Ox O2 Delivery O2 Flow Rate FiO2 11/30/18 08:00 66 12 171/74 (106) 94 NIV Bilevel 50.00 11/30/18 06:51 100 11/30/18 00:00 36.3 Capillary Refill : Less Than 3 Seconds I&O Intake and Output 11/30/18 00:00 Intake Total 2260 ml Output Total 4475 ml Balance -2215 ml Intake Oral 1375 ml IV Total 885 ml Output Urine Total 4375 ml Stool Total 100 ml # Urine Diapers 100 General: Alert, Oriented X3, Cooperative, Mild Distress (DIWHT BREATHING) HEENT: Atraumatic, PERRLA Neck: Supple Lungs: Other Abdomen: Normal Bowel Sounds, Soft, Other (HERNIATED COLOSTOMY LEFT LOWER ABDOMEN) Psych/Mental Status: Mental Status NL, Mood NL Results Lab Laboratory Tests 11/29/18 11:45: Lab Scanned Report Transfusion Reaction Form 11/30/18 03:05: White Blood Count 10.7, Red Blood Count 3.38L, Hemoglobin 9.2L, Hematocrit 29L, Mean Corpuscular Volume 86, Mean Corpuscular Hemoglobin 27, Mean Corpuscular Hemoglobin Concent 32, Red Cell Distribution Width 18.4H, Platelet Count 352, Mean Platelet Volume 9.2, Neutrophils (%) (Auto) 89H, Lymphocytes (%) (Auto) 6L, Monocytes (%) (Auto) 4, Eosinophils (%) (Auto) 0, Basophils (%) (Auto) 0, Neutrophils # (Auto) 9.6H, Lymphocytes # (Auto) 0.7L, Monocytes # (Auto) 0.5, Eosinophils # (Auto) 0.0, Basophils # (Auto) 0.0, Neutrophils % (Manual) 88, Lymphocytes % (Manual) 8, Monocytes % (Manual) 4, Sodium Level 136, Potassium Level 3.7, Chloride Level 100, Carbon Dioxide Level 28, Anion Gap 8, Blood Urea Nitrogen 22H, Creatinine 0.80, Estimat Glomerular Filtration Rate > 60, BUN/Creatinine Ratio 28, Glucose Level 157H, Calcium Level 8.4L, Phosphorus Level 2.9, Magnesium Level 2.4, B-Type Natriuretic Peptide 1404.1H 11/30/18 04:14: Blood Gas Puncture Site LEFT RADIAL, Blood Gas Patient Temperature 36.5, Arterial Blood pH 7.41, Arterial Blood Partial Pressure CO2 48H, Arterial Blood Partial Pressure O2 66L, Arterial Blood HCO3 30H, Arterial Blood Total CO2 31.8H , Arterial Blood Oxygen Saturation 91L, Arterial Blood Base Excess 5.6H, Erick Test POSITIVE, Blood Gas Ventilator Setting NO, Blood Gas Inspired Oxygen 50% BIPAP Microbiology 11/24/18 Blood Culture - Final, Complete No growth 11/28/18 MRSA Screen - Final, Complete MRSA not isolated 11/24/18 Urine Culture - Final, Complete Mixed Bacterial Wendy Proteus mirabilis Assessment/Plan Assessment/Plan Assess & Plan/Chief Complaint PULMONARY FIBROSIS WITH WORSENING DYSPNEA AND HYPOXEMIA WITH CHRONIC OXYGEN THE RAPY PROLAPSED COLOSTOMY BLOOD PER COLOSTOMY INCARCERATED VENTRAL/STOMAL HERNIA CHRONIC ANEMIA CHRONIC DECUBITUS ULCERS CHRONIC OBSTRUCTIVE SLEEP APNEA CORONARY ARTERY DISEASE 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 LEUKOCYTOSIS HYPERKALEMIA (NOW RESOLVED) HYPERMAGNESEMIA PROTEUS URINARY TRACT INFECTION PULMONARY FIBROSIS WITH WORSENING DYSPNEA AND HYPOXEMIA WITH CHRONIC OXYGEN THERAPY - PT ON IV ANTIBIOTICS - CONTINUE WITH CURRENT MANAGEMENT - ZOSYN, VANC AND ERAXIS - THE CT ON ADMISSION WAS NEGATIVE FOR PULMONARY EMBOLI AND THE REPEAT CT SCAN WAS NEGATIVE FOR PULMONARY EMBOLI, DID SHOW PLEURAL EFFUSIONS AND CHEST XRAY TODAY SHOWED GROUND GLASS OPACITIES. - CONTINUE WITH VAPOTHERM, WEAN ABLE - CONTINUE WITH ICU MANAGEMENT OF THIS PATIENT - PT HAS IMPROVED VERY SLIGHTLY FROM A PULMONARY STANDPOINT WITH THE BIPAP, CONTINUE WITH BIPAP AT THIS TIME. PT STILL QUITE TENUOUS AND REQUIRES ICU STATUS. PROLAPSED COLOSTOMY AND BLOOD PER COLOSTOMY WITH INCARCERATED VENTRAL/STOMAL HERNIA - DEFER TO DR. PAN - AT THIS TIME WE ARE WAITING ON ANY SURGICAL INTERVENTION DUE TO HIS PULMONARY STATUS CHRONIC ANEMIA - HGB NOW 9.2 - WITH HIS CARDIAC ISSUES, HE WILL BENEFIT FROM TRANSFUSION IF HIS HGB DROPS TO OR BELOW 8 CHRONIC DECUBITUS ULCERS - WOUND CARE CONSULTED CHRONIC OBSTRUCTIVE SLEEP APNEA CORONARY ARTERY DISEASE - DR. BARRETT CONSULTED - APPRECIATE HIS INPUT ON THIS COMPLICATED PATIENT. CAUDA EQUINA SYNDROME - AT THIS TIME - WE WILL WAIT ON ANY THERAPY - DUE TO PT'S PULMONARY DECONDITIONING AND INABILITY TO LEAVE ROOM. 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 I HAVE HAD A CONVERSATION WITH ALBINA IN THE OFFICE AT HIS LAST OFFICE VISIT - INSTIGATED BY ALBINA HIMSELF. HE UNDERSTANDS THAT WITH RECURRENT INFECTIONS, HIS RISK OF GREATLY INCREASES AND HE HAS HIGH RISK FOR IN THE NEXT 6-12 MONTHS. Clinical Quality Measures DVT/VTE Risk/Contraindication: Risk Factor Score Per Nursin RFS Level Per Nursing on Admit: 4+=Very High FEDE BUTLER MD Nov 30, 2018 08:41
[2018-11-30] MEDS ORDERED: BUMETANIDE 2.5 MG/10 ML (BUMEX) VIAL IV NR (09:45)
--- NOTE | 2018-11-30 10:05 | NUR ---
PALLIATIVE CARE RN in to see patient. Dr. Aburto is in assessing patient. She indicated that he has Proteus in urine and would need to be on Abx for 7 more days. I discussed with patient the hospice education I had spoken with the patient about. Dr. Aburto also mentioned the benefit of hospice. Will continue to follow and offer support and assist with choice once decision is made.
--- NOTE | 2018-11-30 10:28 | Progress Note - Cardiology ---
Cardiology SOAP Progress Note Subjective: Notes shortness of breath Denies palp or syncope or cp Notes gen malaise and weakness Objective: I&O/Vital Signs 11/30/18 11/30/18 11/30/18 11/30/18 00:00 00:00 00:00 00:55 Temp 36.3 Pulse 66 61 Resp 9 B/P (MAP) 166/74 (104) Pulse Ox 92 O2 Delivery NIV Bilevel NIV Bilevel O2 Flow Rate 55.00 FiO2 55 11/30/18 11/30/18 11/30/18 11/30/18 01:00 02:00 03:11 03:16 Pulse 59 58 64 Resp 22 23 36 B/P (MAP) 165/71 (102) 170/75 (106) Pulse Ox 97 98 95 O2 Delivery NIV Bilevel NIV Bilevel NIV Bilevel O2 Flow Rate 55.00 55.00 55.00 50.00 11/30/18 11/30/18 11/30/18 11/30/18 04:00 04:00 05:00 06:00 Pulse 60 58 Resp 18 20 13 B/P (MAP) 150/58 (88) 181/77 (111) 152/72 (98) Pulse Ox 93 96 91 O2 Delivery NIV Bilevel NIV Bilevel NIV Bilevel NIV Bilevel O2 Flow Rate 50.00 50.00 50.00 FiO2 55 11/30/18 11/30/18 11/30/18 11/30/18 06:51 07:00 07:00 08:00 Pulse 65 67 66 Resp 18 12 B/P (MAP) 152/73 (99) 171/74 (106) Pulse Ox 90 95 94 O2 Delivery Vapotherm NIV Bilevel NIV Bilevel O2 Flow Rate 40.00 50.00 50.00 FiO2 100 11/30/18 09:00 Pulse 65 Resp 11 B/P (MAP) 180/81 (114) Pulse Ox 97 O2 Delivery NIV Bilevel O2 Flow Rate 50.00 11/30/18 00:00 Intake Total 820 ml Output Total 2125 ml Balance -1305 ml Weight (Pounds): 245 Weight (Ounces): 6.0 Weight (Calculated Kilograms): 111.862577 Constitutional: AAO x 3, well-developed, well-nourished, other (on BiPAP) Respiratory: No accessory muscle use; other (diminishe air entry, prolonged exp phase, coarse basal and mid-zone crackles) Cardiovascular: regular rate-rhythm, S1 and S2, systolic murmur (faint PAUL at card base) Gastrointestional: No tender, No guarding, No rebound; audible bowel sounds Extremities: swelling (mod, bilat, pitting and nonpitting edema); No clubbing, No cyanosis Neurologic/Psychiatric: oriented x 3, grossly intact, power is 5/5 both on sides Skin: No rash on exposed areas, No ulcerations on exposed areas Results/Procedures: Labs Laboratory Tests 11/29/18 11:45: Lab Scanned Report Transfusion Reaction Form 11/30/18 03:05: White Blood Count 10.7, Red Blood Count 3.38L, Hemoglobin 9.2L, Hematocrit 29L, Mean Corpuscular Volume 86, Mean Corpuscular Hemoglobin 27, Mean Corpuscular Hemoglobin Concent 32, Red Cell Distribution Width 18.4H, Platelet Count 352, Mean Platelet Volume 9.2, Neutrophils (%) (Auto) 89H, Lymphocytes (%) (Auto) 6L, Monocytes (%) (Auto) 4, Eosinophils (%) (Auto) 0, Basophils (%) (Auto) 0, Neutrophils # (Auto) 9.6H, Lymphocytes # (Auto) 0.7L, Monocytes # (Auto) 0.5, Eosinophils # (Auto) 0.0, Basophils # (Auto) 0.0, Neutrophils % (Manual) 88, Lymphocytes % (Manual) 8, Monocytes % (Manual) 4, Sodium Level 136, Potassium Level 3.7, Chloride Level 100, Carbon Dioxide Level 28, Anion Gap 8, Blood Urea Nitrogen 22H, Creatinine 0.80, Estimat Glomerular Filtration Rate > 60, BUN/Creatinine Ratio 28, Glucose Level 157H, Calcium Level 8.4L, Phosphorus Level 2.9, Magnesium Level 2.4, B-Type Natriuretic Peptide 1404.1H 11/30/18 04:14: Blood Gas Puncture Site LEFT RADIAL, Blood Gas Patient Temperature 36.5, Arterial Blood pH 7.41, Arterial Blood Partial Pressure CO2 48H, Arterial Blood Partial Pressure O2 66L, Arterial Blood HCO3 30H, Arterial Blood Total CO2 31.8H , Arterial Blood Oxygen Saturation 91L, Arterial Blood Base Excess 5.6H, Erick Test POSITIVE, Blood Gas Ventilator Setting NO, Blood Gas Inspired Oxygen 50% BIPAP Microbiology 11/24/18 Blood Culture - Final, Complete No growth 11/28/18 MRSA Screen - Final, Complete MRSA not isolated 11/24/18 Urine Culture - Final, Complete Mixed Bacterial Wendy Proteus mirabilis Laboratory Tests 11/29/18 03:20 11/30/18 03:05 A/P: Assessment: Multifactorial shortness of breath and chronic resp failure: pulmonary fibrosis, pneumonia, obesity-hypoventilation, chronic diastolic CHF Prolapse of colostomy, managed by Dr. Mccullough Hypertension, difficult to control Anemia of undetermined etiology, managed by the Med Sv[facility], blood transfusion during this admission Acute on chronic renal failure, monitor renal function UTI, Dr Aburto managing Echocardiogram done in September 2018: LVEF 55-65 percent, grade 2 diastolic dysfunction, mild mitral regurgitation, aortic valve sclerosis, pulmonary hypertension with PA pressure of 50 mmHg Coronary artery disease, history of CABG x3 done in 1999 using RODRIGEZ to LAD, vein graft to the first obtuse marginal, vein graft to the left posterolateral branch of the left circumflex artery. Cardiac catheterization was done in November 2013 showed occluded vein graft to the left circumflex artery. Patient had 2 stents in the [place] circumflex artery, 3.516 mm proximally and 3.520 mm at the midportion, distally there was 60 percent stenosis. The LAD had significant disease proximally, patient has significantly tortuous thoracic and abdominal aorta and RODRIGEZ angio was not done due to the use of large amount of contrast. The right coronary artery was a small none dominant artery was not even visualized during this study. Patient had another stent placed in the circumflex artery at [facility] in 2014 Heavily calcified thoracic and abdominal aorta. CTA done on 01/06/2014 revealed no aneurysm or occlusions or stenosis of abdominal aorta or major branches, continue to monitor Hyperlipidemia History of CVA Mild carotid stenosis, nonobstructive disease bilaterally COPD/obstructive sleep apnea History of prostate CA with questionable metastasis followed and managed at (according to the pt) Cauda equina syndrome, h/o surgery Plan: * I reviewed his chart, interviewed and examined him. I discussed his case with Dr Aburto * Continue current regimen * Monitor labs MARY MENDEZ MD [facility] Nov 30, 2018 10:28
--- NOTE | 2018-11-30 11:00 | NUR ---
Pastoral care visit.
--- NOTE | 2018-11-30 19:45 | Progress Note - Surgery ---
Subjective Date Seen by a Provider: Nov 30, 2018 Time Seen by a Provider: 14:00 Subjective/Events-last exam Patient using cpap. feels breathing is getting a little better. not having any abdominal pain. stool from colostomy. Not seeing any blood in stool. Hgb is slowly increasing. No new complaints. Objective Exam Vital Signs Date Time Temp Pulse Resp B/P (MAP) Pulse Ox O2 Delivery O2 Flow Rate FiO2 11/30/18 18:42 66 27 93 60.00 11/30/18 18:00 66 24 189/86 (120) 97 NIV Bilevel 50.00 11/30/18 17:00 65 13 170/75 (106) 93 NIV Bilevel 50.00 11/30/18 16:12 66 93 50 11/30/18 16:00 NIV Bilevel 50 11/30/18 16:00 68 23 168/103 (124) 90 NIV Bilevel 50.00 11/30/18 16:00 36.5 11/30/18 15:05 61 23 95 55.00 11/30/18 15:00 68 21 176/86 (116) 95 NIV Bilevel 50.00 11/30/18 14:00 64 23 169/73 (105) 92 NIV Bilevel 50.00 11/30/18 13:00 65 14 168/75 (106) 95 NIV Bilevel 50.00 11/30/18 12:52 77 11/30/18 12:00 NIV Bilevel 50 11/30/18 12:00 36.2 11/30/18 12:00 76 19 135/96 (109) 92 NIV Bilevel 50.00 11/30/18 11:00 59 19 179/77 (111) 94 NIV Bilevel 50.00 11/30/18 10:36 61 23 95 55.00 11/30/18 10:00 65 12 163/77 (105) 92 NIV Bilevel 50.00 11/30/18 09:00 65 11 180/81 (114) 97 NIV Bilevel 50.00 11/30/18 08:00 66 12 171/74 (106) 94 NIV Bilevel 50.00 11/30/18 08:00 NIV Bilevel 50 11/30/18 08:00 37.0 11/30/18 07:00 67 11/30/18 07:00 65 18 152/73 (99) 95 NIV Bilevel 50.00 11/30/18 06:51 90 Vapotherm 40.00 100 11/30/18 06:00 13 152/72 (98) 91 NIV Bilevel 50.00 11/30/18 05:00 58 20 181/77 (111) 96 NIV Bilevel 50.00 11/30/18 04:00 NIV Bilevel 55 11/30/18 04:00 60 18 150/58 (88) 93 NIV Bilevel 50.00 11/30/18 03:16 NIV Bilevel 50.00 11/30/18 03:11 64 36 95 55.00 11/30/18 02:00 58 23 170/75 (106) 98 NIV Bilevel 55.00 11/30/18 01:00 59 22 165/71 (102) 97 NIV Bilevel 55.00 11/30/18 00:55 61 11/30/18 00:00 NIV Bilevel 55 11/30/18 00:00 36.3 11/30/18 00:00 66 9 166/74 (104) 92 NIV Bilevel 55.00 11/29/18 22:00 27 163/70 (101) 96 NIV Bilevel 55.00 11/29/18 21:52 27 26 94 55.00 11/29/18 21:00 63 9 181/80 (113) 94 NIV Bilevel 55.00 11/29/18 20:00 70 12 171/69 (103) NIV Bilevel 55.00 11/29/18 20:00 NIV Bilevel 55 11/29/18 20:00 36.8 I & O 11/30/18 07:00 Intake Total 2580 ml Output Total 4475 ml Balance -1895 ml Capillary Refill : Less Than 3 Seconds General Appearance: Chronically ill, Mild Distress HEENT: PERRL/EOMI Neck: Normal Inspection Respiratory: Chest Non Tender, Accessory Muscle Use Cardiovascular: Regular Rate, Rhythm Gastrointestinal: non tender, soft, other (ventral hernia incarcerated, left lower quadrant colostomy prolapsed, + stool, stomal herniation no blood) Extremity: Non Tender Neurologic/Psychiatric: Alert, Oriented x3 Skin: Normal Color Lymphatic: No Adenopathy Results Lab Laboratory Tests 11/30/18 03:05: White Blood Count 10.7, Red Blood Count 3.38L, Hemoglobin 9.2L, Hematocrit 29L, Mean Corpuscular Volume 86, Mean Corpuscular Hemoglobin 27, Mean Corpuscular Hemoglobin Concent 32, Red Cell Distribution Width 18.4H, Platelet Count 352, Mean Platelet Volume 9.2, Neutrophils (%) (Auto) 89H, Lymphocytes (%) (Auto) 6L, Monocytes (%) (Auto) 4, Eosinophils (%) (Auto) 0, Basophils (%) (Auto) 0, Breanna trophils # (Auto) 9.6H, Lymphocytes # (Auto) 0.7L, Monocytes # (Auto) 0.5, Eosinophils # (Auto) 0.0, Basophils # (Auto) 0.0, Neutrophils % (Manual) 88, Lymphocytes % (Manual) 8, Monocytes % (Manual) 4, Sodium Level 136, Potassium Level 3.7, Chloride Level 100, Carbon Dioxide Level 28, Anion Gap 8, Blood Urea Nitrogen 22H, Creatinine 0.80, Estimat Glomerular Filtration Rate > 60, BUN/Creatinine Ratio 28, Glucose Level 157H, Calcium Level 8.4L, Phosphorus Level 2.9, Magnesium Level 2.4, B-Type Natriuretic Peptide 1404.1H 11/30/18 04:14: Blood Gas Puncture Site LEFT RADIAL, Blood Gas Patient Temperature 36.5, Arterial Blood pH 7.41, Arterial Blood Partial Pressure CO2 48H, Arterial Blood Partial Pressure O2 66L, Arterial Blood HCO3 30H, Arterial Blood Total CO2 31.8H , Arterial Blood Oxygen Saturation 91L, Arterial Blood Base Excess 5.6H, Erick Test POSITIVE, Blood Gas Ventilator Setting NO, Blood Gas Inspired Oxygen 50% BIPAP Microbiology 11/24/18 Blood Culture - Final, Complete No growth 11/28/18 MRSA Screen - Final, Complete MRSA not isolated 11/24/18 Urine Culture - Final, Complete Mixed Bacterial Wendy Proteus mirabilis Assessment/Plan Assessment/Plan Assessment/Plan 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 WILL SIGN OFF AT THIS TIME CALL IF NEEDED OR QUESTIONS. Clinical Quality Measures DVT/VTE Risk/Contraindication: Risk Factor Score Per Nursin RFS Level Per Nursing on Admit: 4+=Very High EWA PAN DO Nov 30, 2018 19:45
[2018-11-30] MEDS: MELATONIN 3 MG TABLET PO SCH (19:55)
[2018-11-30] MEDS: ASPIRIN E.C. 81 MG (ECOTRIN) TAB PO SCH (19:55)
[2018-11-30] MEDS: PANTOPRAZOLE 40 MG (PROTONIX) TAB PO SCH (19:55)
--- NOTE | 2018-11-30 22:23 | NUR ---
DRSG TO COCCYX CHANGED AT 2200. AREA REMAINS RED- BARRIER CREAM APPLIED. PT TOLERATED DRSG CHANGE WELL.
[2018-12-01] VITALS (30 sets, daily range): BP systolic 134–187; BP diastolic 65–91
[2018-12-01] MEDS: hydrALAZINE (APESOLINE) 20 MG/ML VIAL IV PRN (01:09)
[2018-12-01 01:19] LABS: BASOPHILS % (AUTO) 0 % (0-10); EOSINOPHILS % (AUTO) 0 % (0-10); HEMATOCRIT 30 % (40-54); HEMOGLOBIN 9.4 G/DL (13.3-17.7); LYMPHOCYTES # (AUTO) 0.6 X 10^3 (1.0-4.0); LYMPHOCYTES % (AUTO) 5 % (12-44); MEAN CORPUSCULAR HEMOGLOBIN 27 PG (25-34); MEAN CORPUSCULAR HGB CONC 31 G/DL (32-36); MEAN CORPUSCULAR VOLUME 86 FL (80-99); MEAN PLATELET VOLUME 9.1 FL (7.4-10.4); MONOCYTES # (AUTO) 0.3 X 10^3 (0.0-1.0); MONOCYTES % (AUTO) 3 % (0-12); NEUTROPHILS # (AUTO) 10.2 X 10^3 (1.8-7.8); NEUTROPHILS % (AUTO) 92 % (42-75); PLATELET COUNT 368 10^3/uL (130-400); RED CELL DISTRIBUTION WIDTH 18.5 % (10.0-14.5); WHITE BLOOD COUNT 11.1 10^3/uL (4.3-11.0)
[2018-12-01 01:36] LABS: BUN/CREATININE RATIO 27; CALCIUM 8.8 MG/DL (8.5-10.1); CARBON DIOXIDE 26 MMOL/L (21-32); CHLORIDE 98 MMOL/L (98-107); CREATININE SERUM 0.86 MG/DL (0.60-1.30); GFR ESTIMATED > 60; GLUCOSE 141 MG/DL (70-105); MAGNESIUM 2.2 MG/DL (1.6-2.4); PHOSPHORUS 3.1 MG/DL (2.3-4.7); POTASSIUM 4.6 MMOL/L (3.6-5.0); SODIUM 134 MMOL/L (135-145)
[2018-12-01] MEDS: MAGNESIUM 1 GM/100 ML IVPB 100 ML IV SCH (01:55)
[2018-12-01] MEDS: POTASSIUM CL 10MEQ/50ML IVPB 50 ML IV SCH (01:55)
[2018-12-01] MEDS: KCL 20 MEQ TAB (K-DUR) PO SCH (01:55)
[2018-12-01] MEDS: RT-ALBUTEROL/IPRATROPIUM 3 ML (DUONEB) VIAL INH SCH ×6 (02:56→23:37)
[2018-12-01] MEDS: methylPREDNISolone 40 MG/ML (Solu-MEDROL) VIAL IV SCH ×4 (04:08→23:36)
[2018-12-01] MEDS: PIPERACILLIN/TAZOBACTAM (BULK) 4.5 GM in NS (IVPB) 100 ML IV SCH ×3 (04:08→20:21)
--- NOTE | 2018-12-01 04:59 | Pulmonary Progress Note ---
Subjective Time Seen by a Provider: 05:05 Subjective/Events-last exam Currently on BiPAP . Pt feels improved. Son is at bedside. Sepsis Event Evaluation Height, Weight, BMI Height: 5'10.00" Weight: 245lbs. 6.0oz. 111.258749qr; 32.67 BMI Method:Stated Exam Exam Vital Signs Date Time Temp Pulse Resp B/P (MAP) Pulse Ox O2 Delivery O2 Flow Rate FiO2 12/01/18 04:00 NIV Bilevel 60 12/01/18 03:34 NIV Bilevel 60.00 12/01/18 03:00 57 24 171/79 (109) 99 NIV Bilevel 55.00 12/01/18 02:56 59 29 98 55.00 12/01/18 02:00 58 20 171/82 (111) 97 NIV Bilevel 60.00 12/01/18 01:00 64 23 167/74 (105) 100 NIV Bilevel 60.00 12/01/18 01:00 64 12/01/18 00:00 61 22 165/89 (114) 95 NIV Bilevel 60.00 12/01/18 00:00 NIV Bilevel 60 12/01/18 00:00 36.6 11/30/18 23:00 61 20 179/85 (116) 94 NIV Bilevel 60.00 11/30/18 22:42 61 23 93 60.00 11/30/18 22:00 61 17 151/80 (103) 92 NIV Bilevel 60.00 11/30/18 21:00 61 21 160/74 (102) 94 NIV Bilevel 60.00 11/30/18 20:53 NIV Bilevel 60.00 11/30/18 20:00 37.1 11/30/18 20:00 76 17 156/57 (90) 93 NIV Bilevel 50.00 11/30/18 20:00 NIV Bilevel 60 11/30/18 19:00 68 11/30/18 19:00 67 19 171/73 (105) 95 NIV Bilevel 50.00 11/30/18 18:42 66 27 93 60.00 11/30/18 18:00 66 24 189/86 (120) 97 NIV Bilevel 50.00 11/30/18 17:00 65 13 170/75 (106) 93 NIV Bilevel 50.00 11/30/18 16:12 66 93 50 11/30/18 16:00 NIV Bilevel 50 11/30/18 16:00 68 23 168/103 (124) 90 NIV Bilevel 50.00 11/30/18 16:00 36.5 11/30/18 15:05 61 23 95 55.00 11/30/18 15:00 68 21 176/86 (116) 95 NIV Bilevel 50.00 11/30/18 14:00 64 23 169/73 (105) 92 NIV Bilevel 50.00 11/30/18 13:00 65 14 168/75 (106) 95 NIV Bilevel 50.00 11/30/18 12:52 77 11/30/18 12:00 NIV Bilevel 50 11/30/18 12:00 36.2 11/30/18 12:00 76 19 135/96 (109) 92 NIV Bilevel 50.00 11/30/18 11:00 59 19 179/77 (111) 94 NIV Bilevel 50.00 11/30/18 10:36 61 23 95 55.00 11/30/18 10:00 65 12 163/77 (105) 92 NIV Bilevel 50.00 11/30/18 09:00 65 11 180/81 (114) 97 NIV Bilevel 50.00 11/30/18 08:00 66 12 171/74 (106) 94 NIV Bilevel 50.00 11/30/18 08:00 NIV Bilevel 50 11/30/18 08:00 37.0 11/30/18 07:00 67 11/30/18 07:00 65 18 152/73 (99) 95 NIV Bilevel 50.00 11/30/18 06:51 90 Vapotherm 40.00 100 11/30/18 06:00 13 152/72 (98) 91 NIV Bilevel 50.00 11/30/18 05:00 58 20 181/77 (111) 96 NIV Bilevel 50.00 I & O 12/01/18 07:00 Intake Total 1380 ml Output Total 1825 ml Balance -445 ml Height & Weight Height: 5'10.00" Weight: 245lbs. 6.0oz. 111.921934zw; 32.67 BMI Method:Stated General Appearance: Chronically ill, Mild Distress HEENT: PERRL/EOMI Neck: Normal Inspection Respiratory: Chest Non Tender, Accessory Muscle Use Cardiovascular: Regular Rate, Rhythm Capillary Refill: Less Than 3 Seconds Gastrointestinal: non tender, soft, other (ventral hernia incarcerated, left lower quadrant colostomy prolapsed, + stool, stomal herniation no blood) Extremity: Non Tender Neurologic/Psychiatric: Alert, Oriented x3 Skin: Normal Color Lymphatic: No Adenopathy Results Lab Laboratory Tests 11/30/18 03:05 12/01/18 01:08 Assessment/Plan Assessment/Plan Acute on chronic respiratory failure -Vapotherm -Titrate for Sp02 90-94% - Currently on BiPAP QHS and PRN -SL IVF -CTA of chest - reviewed -Continue Zosyn, vanco -Await castillo cultures PNA with ARDS -Zosyn- continue for total 10days and Eraxis. -Continue Bumex - -Pt is DNR Grade II dyastolic dysfunction -Continue IV bumex 2mg- increase to BID - spironolactone continue daily labs Hx of pulmonary fibrosis -Monitor prolapsed colostomy with blood per colostomy and stomal herniation/ventral hernia incarcerated -Surgery following Hx of cauda equina anemia -Monitor -Hb appears to be stable. Pt is high risk for DVT/PE PT's prognosis is guarded to poor. Will continue to monitor closely. LAUREN CHIN DO Dec 01, 2018 04:59
[2018-12-01] MEDS: ENOXAPARIN 40 MG/0.4 ML (LOVENOX) SYR SC SCH (07:52)
[2018-12-01] MEDS: SPIRONOLACTONE 100 MG (ALDACTONE) TABLET PO SCH (07:53)
[2018-12-01] MEDS: VITAMIN D3 400 UNITS (CHOLECALCIFEROL) TABLET PO SCH ×2 (07:53→20:19)
[2018-12-01] MEDS: amLODIPine 10 MG (NORVASC) TAB PO SCH (07:53)
[2018-12-01] MEDS: GABAPENTIN 600 MG (NEURONTIN) TAB PO SCH ×2 (07:53→20:20)
[2018-12-01] MEDS: DULoxetine 30 MG (CYMBALTA) CAP PO SCH (07:53)
[2018-12-01] MEDS: PANTOPRAZOLE 40 MG (PROTONIX) VIAL IV SCH (07:53)
[2018-12-01] MEDS: MULTIVIT W/MINERALS TAB (THERAGRAN M) PO SCH (07:54)
[2018-12-01] MEDS: cloNIDine 0.2 MG (CATAPRES) TAB PO SCH ×2 (07:54→20:19)
[2018-12-01] MEDS: CARVEDILOL 12.5 MG (COREG) TABLET PO SCH ×2 (07:54→20:19)
[2018-12-01] MEDS: CLOPIDOGREL 75 MG (PLAVIX) TABLET PO SCH (07:54)
[2018-12-01] MEDS: BUMETANIDE 2.5 MG/10 ML (BUMEX) VIAL IV SCH ×2 (07:56→20:18)
[2018-12-01] MEDS: POLYETHYLENE GLYCOL 17 GM (MIRALAX) PACK PO SCH (07:56)
--- NOTE | 2018-12-01 07:57 | Diagnostic Imaging Report ---
INDICATION: Shortness of breath. Time of exam 3:19 AM Correlation is made with prior study one day earlier. Heart size is stable. There are changes of median sternotomy and CABG. Bilateral pulmonary infiltrates are similar to yesterday. No significant effusion or pneumothorax is seen. IMPRESSION: Stable chest since exam one day earlier. Dictated by: Dictated on workstation # [id number]
--- NOTE | 2018-12-01 08:31 | Progress Note - Surgery ---
Subjective Date Seen by a Provider: Dec 01, 2018 Time Seen by a Provider: 07:40 Subjective/Events-last exam Patient states that he is feeling good today. His Chronic pain is currently at a 6/10 and will be receiving his pain medications at 0900 this morning. He currently does not have any pain around his colostomy but does complain of pain in his RLQ due to his Lovenox shots. Breathing treatments have gone well. Pulse Ox does show Hypoxia (81%) when talking. Patient denies fevers, chills, chest pain, n/v. Colostomy is functioning. WBC is 11.1 Review of Systems General: No Chills, No Other (fevers) HEENT: No Head Aches Pulmonary: Dyspnea; No Cough Cardiovascular: No: Chest Pain Gastrointestinal: No: Nausea, Vomiting, Abdominal Pain (From hernia) Objective Exam Vital Signs Date Time Temp Pulse Resp B/P (MAP) Pulse Ox O2 Delivery O2 Flow Rate FiO2 12/01/18 07:00 65 12/01/18 06:42 64 24 94 55.00 12/01/18 06:42 94 NIV Bilevel 55 12/01/18 06:27 NIV Bilevel 50.00 12/01/18 06:00 67 21 179/79 (112) 93 NIV Bilevel 45.00 12/01/18 05:58 NIV Bilevel 45.00 12/01/18 05:00 60 20 173/78 (109) 98 NIV Bilevel 60.00 12/01/18 04:00 NIV Bilevel 60 12/01/18 04:00 66 18 165/74 (104) 98 NIV Bilevel 60.00 12/01/18 03:34 NIV Bilevel 60.00 12/01/18 03:00 57 24 171/79 (109) 99 NIV Bilevel 55.00 12/01/18 02:56 59 29 98 55.00 12/01/18 02:00 58 20 171/82 (111) 97 NIV Bilevel 60.00 12/01/18 01:00 64 23 167/74 (105) 100 NIV Bilevel 60.00 12/01/18 01:00 64 12/01/18 00:00 61 22 165/89 (114) 95 NIV Bilevel 60.00 12/01/18 00:00 NIV Bilevel 60 12/01/18 00:00 36.6 11/30/18 23:00 61 20 179/85 (116) 94 NIV Bilevel 60.00 11/30/18 22:42 61 23 93 60.00 11/30/18 22:00 61 17 151/80 (103) 92 NIV Bilevel 60.00 11/30/18 21:00 61 21 160/74 (102) 94 NIV Bilevel 60.00 11/30/18 20:53 NIV Bilevel 60.00 11/30/18 20:00 37.1 11/30/18 20:00 76 17 156/57 (90) 93 NIV Bilevel 50.00 11/30/18 20:00 NIV Bilevel 60 11/30/18 19:00 68 11/30/18 19:00 67 19 171/73 (105) 95 NIV Bilevel 50.00 11/30/18 18:42 66 27 93 60.00 11/30/18 18:00 66 24 189/86 (120) 97 NIV Bilevel 50.00 11/30/18 17:00 65 13 170/75 (106) 93 NIV Bilevel 50.00 11/30/18 16:12 66 93 50 11/30/18 16:00 NIV Bilevel 50 11/30/18 16:00 68 23 168/103 (124) 90 NIV Bilevel 50.00 11/30/18 16:00 36.5 11/30/18 15:05 61 23 95 55.00 11/30/18 15:00 68 21 176/86 (116) 95 NIV Bilevel 50.00 11/30/18 14:00 64 23 169/73 (105) 92 NIV Bilevel 50.00 11/30/18 13:00 65 14 168/75 (106) 95 NIV Bilevel 50.00 11/30/18 12:52 77 11/30/18 12:00 NIV Bilevel 50 11/30/18 12:00 36.2 11/30/18 12:00 76 19 135/96 (109) 92 NIV Bilevel 50.00 11/30/18 11:00 59 19 179/77 (111) 94 NIV Bilevel 50.00 11/30/18 10:36 61 23 95 55.00 11/30/18 10:00 65 12 163/77 (105) 92 NIV Bilevel 50.00 11/30/18 09:00 65 11 180/81 (114) 97 NIV Bilevel 50.00 I & O 12/01/18 07:00 Intake Total 1530 ml Output Total 2425 ml Balance -895 ml Capillary Refill : Less Than 3 Seconds General Appearance: Chronically ill, Mild Distress HEENT: PERRL/EOMI Neck: Normal Inspection Respiratory: Chest Non Tender, Accessory Muscle Use, Other (Requiring Oxygen) Cardiovascular: Regular Rate, Rhythm Gastrointestinal: non tender, soft, other (ventral hernia incarcerated, left lower quadrant colostomy prolapsed, + stool, stomal herniation no blood) Extremity: Non Tender Neurologic/Psychiatric: Alert, Oriented x3 Skin: Normal Color Lymphatic: No Adenopathy Results Lab Laboratory Tests 12/01/18 01:08: White Blood Count 11.1H, Red Blood Count 3.52L, Hemoglobin 9.4L, Hematocrit 30L, Mean Corpuscular Volume 86, Mean Corpuscular Hemoglobin 27, Mean Corpuscular Hemoglobin Concent 31L, Red Cell Distribution Width 18.5H, Platelet Count 368, Mean Platelet Volume 9.1, Neutrophils (%) (Auto) 92H, Lymphocytes (%) (Auto) 5L, Monocytes (%) (Auto) 3, Eosinophils (%) (Auto) 0, Basophils (%) (Auto) 0, Neutrophils # (Auto) 10.2H, Lymphocytes # (Auto) 0.6L, Monocytes # (Auto) 0.3, Eosinophils # (Auto) 0.0, Basophils # (Auto) 0.0, Sodium Level 134L, Potassium Level 4.6, Chloride Level 98, Carbon Dioxide Level 26, Anion Gap 10, Blood Urea Nitrogen 23H, Creatinine 0.86, Estimat Glomerular Filtration Rate > 60, BUN/Creatinine Ratio 27, Glucose Level 141H, Calcium Level 8.8, Phosphorus Level 3.1, Magnesium Level 2.2, B-Type Natriuretic Peptide 1104.8H Microbiology 11/24/18 Blood Culture - Final, Complete No growth 11/28/18 MRSA Screen - Final, Complete MRSA not isolated 11/24/18 Urine Culture - Final, Complete Mixed Bacterial Wendy Proteus mirabilis Assessment/Plan Assessment/Plan Assessment/Plan 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 WILL SIGN OFF AT THIS TIME CALL IF NEEDED OR QUESTIONS. Clinical Quality Measures DVT/VTE Risk/Contraindication: Risk Factor Score Per Nursin RFS Level Per Nursing on Admit: 4+=Very High [facility] Dec 01, 2018 08:31
--- NOTE | 2018-12-01 08:35 | Progress Note - Hospitalist ---
Subjective HPI/CC On Admission Date Seen by Provider: Dec 01, 2018 Time Seen by Provider: 08:24 Chief complaint: Dyspnea with hypoxia and blood from colostomy History of present illness: This is a 77-year-old white male with a past medical history of cauda equina syndrome resulting in colostomy and suprapubic catheter in 2017 who presented to the ER with diminished output in colostomy for the past 3 days and then having some bloody mucus noted. He became more dyspneic so he presented to the ER underwent CT angiogram that revealed no pulmonary emboli but it appears that he has a hernia around the colostomy that has become problematic prompting general surgery consultation by Dr. Mccullough. At this current time I have reviewed and restarted all of his home medications and consulted cardiology and I have reviewed pulmonology and lab results. His for 59 years is at the bedside along with his son. Subjective/Events-last exam Pt reports feeling better. Breathing improving but still on BiPAP. Discussed with RN and desatting to eat breakfast but recovers faster. Objective Exam Vital Signs Vital Signs Date Time Temp Pulse Resp B/P (MAP) Pulse Ox O2 Delivery O2 Flow Rate FiO2 12/01/18 07:00 65 12/01/18 06:42 24 94 55.00 12/01/18 06:42 NIV Bilevel 55 12/01/18 06:00 179/79 (112) 12/01/18 00:00 36.6 Capillary Refill : Less Than 3 Seconds General Appearance: No Apparent Distress, Chronically ill Respiratory: Lungs Clear, No Accessory Muscle Use, Other (on BiPAP) Cardiovascular: Regular Rate, Rhythm, No Murmur Gastrointestinal: Soft, Other (colostomy in place) Genital/Rectal: Other (SPT in place) Extremity: No Calf Tenderness, No Pedal Edema Neurologic/Psychiatric: Alert, Oriented x3, Normal Mood/Affect Results/Procedures Lab Laboratory Tests 12/01/18 01:08 Patient resulted labs reviewed. 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 WITH CHRONIC OXYGEN THERAPY Acute on Chronic Respiratory Failure CHRONIC OBSTRUCTIVE SLEEP APNEA Continue Zosyn and Eraxis Remains on BiPAP Pulm consulted, appreciate recs SoluMedrol MAT Protocol PROLAPSED COLOSTOMY AND BLOOD PER COLOSTOMY WITH INCARCERATED VENTRAL/STOMAL HERNIA - Surgery consulted, appreciate recs - Hgb stable - Any surgical option currently on hold due to respiratory status CORONARY ARTERY DISEASE s/p 3 vessel CABG in 1999 and subsequent graft stenting in 2013 HTN dCHF - Cardiology consulted, appreciate recs - Continue diuresis with Bumex - Monitor I/Os - Continue ASA and Plavix, Coreg - ARB held for RACQUEL on admissoin but will resume - Continue Amlodipine and Clonidine CHRONIC ANEMIA - Stable ~9 - Trend, consider IV iron when over acute illness CHRONIC DECUBITUS ULCERS - Wound care CAUDA EQUINA SYNDROME Chronic indwelling SPT Colostomy - PT/OT when more stable from respiratory standpoint - Continue Gabapentin - Continue Chronic pain LEUKOCYTOSIS- stable - On steroids so likely iatrogenic Acute Kidney Injury- resolved HYPERKALEMIA - resolved Continue IVF, trend labs with diuresis Hyperglycemia Likely iatrogenic from steroids SSI PROTEUS URINARY TRACT INFECTION due to chronic indwelling catheter -Continue Zosyn Clinical Quality Measures DVT/VTE Risk/Contraindication: Risk Factor Score Per Nursin RFS Level Per Nursing on Admit: 4+=Very High FIFI RUIZ MD Dec 01, 2018 08:35
[2018-12-01] MEDS ORDERED: NON-FORMULARY MEDICATION 1 EA EA (Losartan Potassium 50 MG) PO SCH (08:45)
[2018-12-01] MEDS: ANIDULAFUNGIN INJECTION 100 MG in NS (IVPB) 100 ML IV SCH (09:53)
[2018-12-01] MEDS: LOSARTAN 50 MG (COZAAR) TAB PO SCH (09:54)
--- NOTE | 2018-12-01 09:54 | Physical Therapy Progress Note ---
Therapy Progress Note Attempted PT eval this date. Pt adament that he does not want to do PT at this time. Son visited with this therapist as well and noted that PT attempts currently only heighten the patient's agitation. Reports the patient feels PT is silly as he only gets out of bed and transfers to a typically. Explained the importance of bed mobility and transfers, which the son understood, but also acknowledged that if PT (at this time) would be agitating to the patient, we can come back at a different time. Son agreed this may be best. Notified nurse that patient is requesting pain meds . ABIMAEL LUX PT Dec 01, 2018 09:54
--- NOTE | 2018-12-01 10:51 | Progress Note - Cardiology ---
Cardiology SOAP Progress Note Subjective: Persistent shortness of breath Persistent weakness and malaise No cp or palp or syncope Objective: I&O/Vital Signs 11/30/18 12/01/18 12/01/18 12/01/18 23:00 00:00 00:00 00:00 Temp 36.6 Pulse 61 61 Resp 20 22 B/P (MAP) 179/85 (116) 165/89 (114) Pulse Ox 94 95 O2 Delivery NIV Bilevel NIV Bilevel NIV Bilevel O2 Flow Rate 60.00 60.00 FiO2 60 12/01/18 12/01/18 12/01/18 12/01/18 01:00 01:00 02:00 02:56 Pulse 64 64 58 59 Resp 23 20 29 B/P (MAP) 167/74 (105) 171/82 (111) Pulse Ox 100 97 98 O2 Delivery NIV Bilevel NIV Bilevel O2 Flow Rate 60.00 60.00 55.00 12/01/18 12/01/18 12/01/18 12/01/18 03:00 03:34 04:00 04:00 Pulse 57 66 Resp 24 18 B/P (MAP) 171/79 (109) 165/74 (104) Pulse Ox 99 98 O2 Delivery NIV Bilevel NIV Bilevel NIV Bilevel NIV Bilevel O2 Flow Rate 55.00 60.00 60.00 FiO2 60 12/01/18 12/01/18 12/01/18 12/01/18 05:00 05:58 06:00 06:27 Pulse 60 67 Resp 20 21 B/P (MAP) 173/78 (109) 179/79 (112) Pulse Ox 98 93 O2 Delivery NIV Bilevel NIV Bilevel NIV Bilevel NIV Bilevel O2 Flow Rate 60.00 45.00 45.00 50.00 12/01/18 12/01/18 12/01/18 12/01/18 06:42 06:42 07:00 07:00 Pulse 64 65 66 Resp 24 13 B/P (MAP) 187/81 (116) Pulse Ox 94 94 94 O2 Delivery NIV Bilevel NIV Bilevel O2 Flow Rate 55.00 50.00 FiO2 55 12/01/18 12/01/18 12/01/18 12/01/18 08:00 08:00 09:00 09:50 Pulse 70 68 71 Resp 36 15 22 B/P (MAP) 160/70 (100) 145/71 (95) Pulse Ox 94 97 94 O2 Delivery NIV Bilevel NIV Bilevel NIV Bilevel O2 Flow Rate 50.00 50.00 55.00 FiO2 60 12/01/18 10:00 Pulse 73 Resp 10 B/P (MAP) 147/75 (99) Pulse Ox 93 O2 Delivery NIV Bilevel O2 Flow Rate 50.00 12/01/18 00:00 Intake Total 650 ml Output Total 975 ml Balance -325 ml Weight (Pounds): 245 Weight (Ounces): 6.0 Weight (Calculated Kilograms): 111.389821 Constitutional: AAO x 3, well-developed, well-nourished, other (on BiPAP) Respiratory: No accessory muscle use; other (diminishe air entry, prolonged exp phase, coarse basal and mid-zone crackles) Cardiovascular: regular rate-rhythm, S1 and S2, systolic murmur (faint PAUL at card base) Gastrointestional: No tender, No guarding, No rebound; audible bowel sounds Extremities: swelling (mod, bilat, pitting and nonpitting edema); No clubbing, No cyanosis Neurologic/Psychiatric: oriented x 3, grossly intact, power is 5/5 both on sides Skin: No rash on exposed areas, No ulcerations on exposed areas Results/Procedures: Labs Laboratory Tests 12/01/18 01:08: White Blood Count 11.1H, Red Blood Count 3.52L, Hemoglobin 9.4L, Hematocrit 30L, Mean Corpuscular Volume 86, Mean Corpuscular Hemoglobin 27, Mean Corpuscular Hemoglobin Concent 31L, Red Cell Distribution Width 18.5H, Platelet Count 368, Mean Platelet Volume 9.1, Neutrophils (%) (Auto) 92H, Lymphocytes (%) (Auto) 5L, Monocytes (%) (Auto) 3, Eosinophils (%) (Auto) 0, Basophils (%) (Auto) 0, Neutrophils # (Auto) 10.2H, Lymphocytes # (Auto) 0.6L, Monocytes # (Auto) 0.3, Eosinophils # (Auto) 0.0, Basophils # (Auto) 0.0, Sodium Level 134L, Potassium Level 4.6, Chloride Level 98, Carbon Dioxide Level 26, Anion Gap 10, Blood Urea Nitrogen 23H, Creatinine 0.86, Estimat Glomerular Filtration Rate > 60, BUN/ Creatinine Ratio 27, Glucose Level 141H, Calcium Level 8.8, Phosphorus Level 3. 1, Magnesium Level 2.2, B-Type Natriuretic Peptide 1104.8H Microbiology 11/24/18 Blood Culture - Final, Complete No growth 11/28/18 MRSA Screen - Final, Complete MRSA not isolated 11/24/18 Urine Culture - Final, Complete Mixed Bacterial Wendy Proteus mirabilis Laboratory Tests 11/30/18 03:05 12/01/18 01:08 A/P: Assessment: Multifactorial shortness of breath and chronic resp failure: pulmonary fibrosis, pneumonia, obesity-hypoventilation, chronic diastolic CHF Prolapse of colostomy, managed by Dr. Mccullough Hypertension, difficult to control Anemia of undetermined etiology, managed by the Med S[facility], blood transfusion during this admission Acute on chronic renal failure, monitor renal function UTI, Dr Aburto managing Echocardiogram done in September 2018: LVEF 55-65 percent, grade 2 diastolic dysfunction, mild mitral regurgitation, aortic valve sclerosis, pulmonary hypertension with PA pressure of 50 mmHg Coronary artery disease, history of CABG x3 done in 1999 using RODRIGEZ to LAD, vein graft to the first obtuse marginal, vein graft to the left posterolateral branch of the left circumflex artery. Cardiac catheterization was done in November 2013 showed occluded vein graft to the left circumflex artery. Patient had 2 stents in the [place] circumflex artery, 3.516 mm proximally and 3.520 mm at the midportion, distally there was 60 percent stenosis. The LAD had significant disease proximally, patient has significantly tortuous thoracic and abdominal aorta and RODRIGEZ angio was not done due to the use of large amount of contrast. The right coronary artery was a small none dominant artery was not even visu alized during this study. Patient had another stent placed in the circumflex artery at [facility] in 2014 Heavily calcified thoracic and abdominal aorta. CTA done on 01/06/2014 revealed no aneurysm or occlusions or stenosis of abdominal aorta or major branches, continue to monitor Hyperlipidemia History of CVA Mild carotid stenosis, nonobstructive disease bilaterally COPD/obstructive sleep apnea History of prostate CA with questionable metastasis followed and managed at (according to the pt) Cauda equina syndrome, h/o surgery Plan: * I discussed his CV issues with him and his and answered CV-related questions * Continue current regimen * Monitor labs MARY MENDEZ MD FACP FAC CCDS Dec 01, 2018 10:51
[2018-12-01] MEDS ORDERED: LOSARTAN 50 MG (COZAAR) TAB PO SCH (12:00)
[2018-12-01] MEDS: RT-ALBUTEROL/IPRATROPIUM 3 ML (DUONEB) VIAL INH PRN (20:13)
[2018-12-01] MEDS: ASPIRIN E.C. 81 MG (ECOTRIN) TAB PO SCH (20:20)
[2018-12-01] MEDS: MELATONIN 3 MG TABLET PO SCH (20:20)
--- NOTE | 2018-12-01 20:30 | NUR ---
Patient did not get his 1800 SVN BT so RT gave patient a PRN SVN BT at this time; patient was received on bipap rate 12 03/10 and 55%; RT decreased O2 to 45%, RN and wardrobe technician was both notified of this change
[2018-12-02] VITALS (28 sets, daily range): BP systolic 131–177; BP diastolic 57–99
[2018-12-02] MEDS: RT-ALBUTEROL/IPRATROPIUM 3 ML (DUONEB) VIAL INH SCH ×6 (02:56→22:27)
[2018-12-02 04:08] LABS: BASOPHILS % (AUTO) 0 % (0-10); EOSINOPHILS % (AUTO) 0 % (0-10); HEMATOCRIT 33 % (40-54); HEMOGLOBIN 10.4 G/DL (13.3-17.7); LYMPHOCYTES # (AUTO) 0.5 X 10^3 (1.0-4.0); LYMPHOCYTES % (AUTO) 5 % (12-44); MEAN CORPUSCULAR HEMOGLOBIN 27 PG (25-34); MEAN CORPUSCULAR HGB CONC 32 G/DL (32-36); MEAN CORPUSCULAR VOLUME 86 FL (80-99); MEAN PLATELET VOLUME 9.6 FL (7.4-10.4); MONOCYTES # (AUTO) 0.4 X 10^3 (0.0-1.0); MONOCYTES % (AUTO) 4 % (0-12); NEUTROPHILS # (AUTO) 10.9 X 10^3 (1.8-7.8); NEUTROPHILS % (AUTO) 92 % (42-75); PLATELET COUNT 395 10^3/uL (130-400); RED CELL DISTRIBUTION WIDTH 18.2 % (10.0-14.5); WHITE BLOOD COUNT 11.9 10^3/uL (4.3-11.0)
[2018-12-02] MEDS: hydrALAZINE (APESOLINE) 20 MG/ML VIAL IV PRN (04:08)
[2018-12-02] MEDS: PIPERACILLIN/TAZOBACTAM (BULK) 4.5 GM in NS (IVPB) 100 ML IV SCH ×3 (04:08→20:00)
[2018-12-02] MEDS: methylPREDNISolone 40 MG/ML (Solu-MEDROL) VIAL IV SCH ×4 (04:08→22:09)
[2018-12-02] MEDS: morphine INJ 10 MG/ML 1ML (SYR OR VIAL) IVP PRN (04:09)
[2018-12-02 04:22] LABS: BUN/CREATININE RATIO 28; CALCIUM 8.7 MG/DL (8.5-10.1); CARBON DIOXIDE 29 MMOL/L (21-32); CHLORIDE 96 MMOL/L (98-107); CREATININE SERUM 0.87 MG/DL (0.60-1.30); GFR ESTIMATED > 60; GLUCOSE 117 MG/DL (70-105); MAGNESIUM 2.3 MG/DL (1.6-2.4); PHOSPHORUS 3.3 MG/DL (2.3-4.7); POTASSIUM 4.5 MMOL/L (3.6-5.0); SODIUM 135 MMOL/L (135-145)
--- NOTE | 2018-12-02 05:33 | Pulmonary Progress Note ---
Subjective Time Seen by a Provider: 10:57 Subjective/Events-last exam PT is still very SOB and requiring a lot of oxygen. Sepsis Event Evaluation Height, Weight, BMI Height: 5'10.00" Weight: 245lbs. 6.0oz. 111.413799bx; 32.67 BMI Method:Stated Exam Exam Vital Signs Date Time Temp Pulse Resp B/P (MAP) Pulse Ox O2 Delivery O2 Flow Rate FiO2 12/02/18 04:00 70 15 139/61 (87) 97 NIV Bilevel 45.00 12/02/18 03:00 68 20 175/86 (115) 96 NIV Bilevel 45.00 12/02/18 02:00 63 20 166/73 (104) 96 NIV Bilevel 45.00 12/02/18 01:00 67 12/02/18 01:00 67 18 177/78 (111) 96 NIV Bilevel 45.00 12/02/18 00:00 NIV Bilevel 55 12/02/18 00:00 68 19 163/72 (102) 96 NIV Bilevel 45.00 12/01/18 23:52 NIV Bilevel 45.00 12/01/18 23:38 63 25 96 55.00 12/01/18 23:00 63 18 158/75 (102) 94 NIV Bilevel 55.00 12/01/18 22:00 66 22 152/73 (99) 96 NIV Bilevel 55.00 12/01/18 21:00 66 20 134/65 (88) 91 NIV Bilevel 55.00 12/01/18 20:48 NIV Bilevel 55.00 12/01/18 20:31 NIV Bilevel 45.00 12/01/18 20:13 67 23 95 55.00 12/01/18 20:00 66 22 177/85 (115) 96 NIV Bilevel 50.00 12/01/18 20:00 NIV Bilevel 55 12/01/18 19:00 69 12/01/18 19:00 65 18 156/75 (102) 93 NIV Bilevel 50.00 12/01/18 18:00 66 16 181/91 (121) 95 NIV Bilevel 50.00 12/01/18 17:00 66 25 160/78 (105) 94 NIV Bilevel 50.00 12/01/18 16:00 36.2 12/01/18 16:00 68 20 157/72 (100) 94 NIV Bilevel 50.00 12/01/18 15:58 NIV Bilevel 55 12/01/18 15:00 63 25 159/76 (103) 94 NIV Bilevel 50.00 12/01/18 14:28 65 25 96 55.00 12/01/18 14:00 69 29 150/69 (96) 91 NIV Bilevel 50.00 12/01/18 13:00 66 27 151/73 (99) 94 NIV Bilevel 50.00 12/01/18 13:00 67 12/01/18 12:00 36.6 12/01/18 12:00 66 23 151/75 (100) 95 NIV Bilevel 50.00 12/01/18 12:00 NIV Bilevel 60 12/01/18 11:00 65 28 160/75 (103) 95 NIV Bilevel 50.00 12/01/18 10:00 73 10 147/75 (99) 93 NIV Bilevel 50.00 12/01/18 09:50 71 22 94 55.00 12/01/18 09:00 68 15 145/71 (95) 97 NIV Bilevel 50.00 12/01/18 08:00 NIV Bilevel 60 12/01/18 08:00 70 36 160/70 (100) 94 NIV Bilevel 50.00 12/01/18 08:00 36.8 12/01/18 07:00 66 13 187/81 (116) 94 NIV Bilevel 50.00 12/01/18 07:00 65 12/01/18 06:42 64 24 94 55.00 12/01/18 06:42 94 NIV Bilevel 55 12/01/18 06:27 NIV Bilevel 50.00 12/01/18 06:00 67 21 179/79 (112) 93 NIV Bilevel 45.00 12/01/18 05:58 NIV Bilevel 45.00 I & O 12/02/18 07:00 Intake Total 1460 ml Output Total 2900 ml Balance -1440 ml Height & Weight Height: 5'10.00" Weight: 245lbs. 6.0oz. 111.330234gn; 32.67 BMI Method:Stated General Appearance: No Apparent Distress, Chronically ill HEENT: PERRL/EOMI Neck: Normal Inspection Respiratory: Lungs Clear, No Accessory Muscle Use, Other (on BiPAP) Cardiovascular: Regular Rate, Rhythm, No Murmur Capillary Refill: Less Than 3 Seconds Gastrointestinal: non tender, soft, other (ventral hernia incarcerated, left lower quadrant colostomy prolapsed, + stool, stomal herniation no blood) Extremity: No Calf Tenderness, No Pedal Edema Neurologic/Psychiatric: Alert, Oriented x3, Normal Mood/Affect Skin: Normal Color Lymphatic: No Adenopathy Results Lab Laboratory Tests 12/01/18 01:08 12/02/18 03:48 Assessment/Plan Assessment/Plan Acute on chronic respiratory failure -Vapotherm -Titrate for Sp02 90-94% - Currently on BiPAP QHS and PRN -SL IVF -CTA of chest - reviewed -CXR PENDING -Continue Zosyn, vanco -Await castillo cultures PNA with ARDS -Zosyn- continue for total 10days and Eraxis. -Restart Vancomycin secondary to worsening CXR infiltrates. -Continue Bumex - -Pt is DNR Grade II dyastolic dysfunction -Continue IV bumex 2mg- increase to BID - spironolactone continue daily labs Hx of pulmonary fibrosis -Monitor prolapsed colostomy with blood per colostomy and stomal herniation/ventral hernia incarcerated -Surgery following Hx of cauda equina anemia -Monitor -Hb appears to be stable. Pt is high risk for DVT/PE PT's prognosis is guarded to poor. Will continue to monitor closely. LAUREN CHIN DO Dec 02, 2018 05:32
--- NOTE | 2018-12-02 07:32 | Progress Note - Hospitalist ---
Subjective HPI/CC On Admission Date Seen by Provider: Dec 02, 2018 Time Seen by Provider: 07:28 Chief complaint: Dyspnea with hypoxia and blood from colostomy History of present illness: This is a 77-year-old white male with a past medical history of cauda equina syndrome resulting in colostomy and suprapubic catheter in 2017 who presented to the ER with diminished output in colostomy for the past 3 days and then having some bloody mucus noted. He became more dyspneic so he presented to the ER underwent CT angiogram that revealed no pulmonary emboli but it appears that he has a hernia around the colostomy that has become problematic prompting general surgery consultation by Dr. Mccullough. At this current time I have reviewed and restarted all of his home medications and consulted cardiology and I have reviewed pulmonology and lab results. His for 59 years is at the bedside along with his son. Subjective/Events-last exam Pt reports feeling better. Eating breakfast. Noticed coughing while eating and he states he gets choked up sometimes with eating. Has not seen speech therapy before. Objective Exam Vital Signs Vital Signs Date Time Temp Pulse Resp B/P (MAP) Pulse Ox O2 Delivery O2 Flow Rate FiO2 12/02/18 07:05 91 Vapotherm 40.00 100 12/02/18 06:00 62 22 163/73 (103) 12/01/18 16:00 36.2 Capillary Refill : Less Than 3 Seconds General Appearance: No Apparent Distress, WD/WN Respiratory: No Accessory Muscle Use, Decreased Breath Sounds, Respiratory Distress (on vapotherm-maxed out) Cardiovascular: Regular Rate, Rhythm, No Murmur Gastrointestinal: Normal Bowel Sounds, Soft, Other (ostomy in place) Genital/Rectal: Other (SPT in place) Extremity: No Pedal Edema, Other (muscle wasting of lower extrmeities noted) Neurologic/Psychiatric: Alert, Oriented x3, Normal Mood/Affect Results/Procedures Lab Laboratory Tests 12/02/18 03:48 Patient resulted labs reviewed. 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 WITH CHRONIC OXYGEN THERAPY Acute on Chronic Respiratory Failure CHRONIC OBSTRUCTIVE SLEEP APNEA Dysphagia with concern for aspiration Continue Zosyn and Eraxis Alternates from BiPAP to Vapotherm Pulm consulted, appreciate recs SoluMedrol MAT Protocol Discussed with Dr Hutton- will transfer to the 4th floor Consult SHELF STOCKER PROLAPSED COLOSTOMY AND BLOOD PER COLOSTOMY WITH INCARCERATED VENTRAL/STOMAL HERNIA - Surgery consulted, appreciate recs - Hgb stable - Any surgical option currently on hold due to respiratory status CORONARY ARTERY DISEASE s/p 3 vessel CABG in 1999 and subsequent graft stenting in 2013 HTN dCHF - Cardiology consulted, appreciate recs - Continue diuresis - Monitor I/Os - Continue ASA and Plavix, Coreg, Losartan - Continue Amlodipine and Clonidine CHRONIC ANEMIA - Stable ~9 - Trend, consider IV iron when over acute illness CHRONIC DECUBITUS ULCERS - Wound care CAUDA EQUINA SYNDROME Chronic indwelling SPT Colostomy - PT/OT when more stable from respiratory standpoint - Continue Gabapentin - Continue Chronic pain LEUKOCYTOSIS- stable - On steroids so likely iatrogenic Acute Kidney Injury- resolved HYPERKALEMIA - resolved Continue IVF, trend labs with diuresis Hyperglycemia Likely iatrogenic from steroids SSI PROTEUS URINARY TRACT INFECTION due to chronic indwelling catheter -Continue Zosyn per sensitivities Clinical Quality Measures DVT/VTE Risk/Contraindication: Risk Factor Score Per Nursin RFS Level Per Nursing on Admit: 4+=Very High FIFI RUIZ MD Dec 02, 2018 7:32 am
[2018-12-02] MEDS: ENOXAPARIN 40 MG/0.4 ML (LOVENOX) SYR SC SCH (08:52)
[2018-12-02] MEDS: ANIDULAFUNGIN INJECTION 100 MG in NS (IVPB) 100 ML IV SCH (08:53)
[2018-12-02] MEDS: PANTOPRAZOLE 40 MG (PROTONIX) VIAL IV SCH (08:53)
[2018-12-02] MEDS: BUMETANIDE 2.5 MG/10 ML (BUMEX) VIAL IV SCH ×2 (08:53→20:00)
[2018-12-02] MEDS: DULoxetine 30 MG (CYMBALTA) CAP PO SCH (08:54)
[2018-12-02] MEDS: amLODIPine 10 MG (NORVASC) TAB PO SCH (08:54)
[2018-12-02] MEDS: CARVEDILOL 12.5 MG (COREG) TABLET PO SCH ×2 (08:54→20:01)
[2018-12-02] MEDS: CLOPIDOGREL 75 MG (PLAVIX) TABLET PO SCH (08:54)
[2018-12-02] MEDS: cloNIDine 0.2 MG (CATAPRES) TAB PO SCH ×2 (08:54→20:00)
[2018-12-02] MEDS: GABAPENTIN 600 MG (NEURONTIN) TAB PO SCH ×2 (08:54→20:01)
[2018-12-02] MEDS: VITAMIN D3 400 UNITS (CHOLECALCIFEROL) TABLET PO SCH ×2 (08:54→20:01)
[2018-12-02] MEDS: SPIRONOLACTONE 100 MG (ALDACTONE) TABLET PO SCH (08:55)
[2018-12-02] MEDS: POLYETHYLENE GLYCOL 17 GM (MIRALAX) PACK PO SCH (08:55)
[2018-12-02] MEDS: MULTIVIT W/MINERALS TAB (THERAGRAN M) PO SCH (08:55)
--- NOTE | 2018-12-02 09:08 | Diagnostic Imaging Report ---
EXAMINATION: Chest radiograph, portable AP view. DATE: 12/02/2018 6:46 AM hours. INDICATION: 77-year-old male, shortness of breath. COMPARISON: December 01, 2018. FINDINGS: There are median sternotomy wires. Stable overall appearance of the cardiomediastinal silhouette. There is no identified pneumothorax. There is multifocal bilateral lung consolidation with unchanged appearance. There is redemonstrated widening of the left acromioclavicular joint. IMPRESSION: 1. Unchanged nonspecific multifocal lung consolidation bilaterally. Dictated by: Dictated on workstation # [id number]
[2018-12-02] MEDS: LOSARTAN 50 MG (COZAAR) TAB PO SCH (11:38)
--- NOTE | 2018-12-02 13:11 | Progress Note - Cardiology ---
Cardiology SOAP Progress Note Subjective: Shortness of breath and malaise as before No cp or palp or syncope Objective: I&O/Vital Signs 12/02/18 12/02/18 12/02/18 12/02/18 02:00 03:00 04:00 04:00 Pulse 63 68 70 Resp 20 20 15 B/P (MAP) 166/73 (104) 175/86 (115) 139/61 (87) Pulse Ox 96 96 97 O2 Delivery NIV Bilevel NIV Bilevel NIV Bilevel NIV Bilevel O2 Flow Rate 45.00 45.00 45.00 FiO2 55 12/02/18 12/02/18 12/02/18 12/02/18 05:00 06:00 07:00 07:03 Pulse 61 62 65 63 Resp 20 22 14 B/P (MAP) 145/67 (93) 163/73 (103) 166/74 (104) Pulse Ox 96 96 97 O2 Delivery NIV Bilevel NIV Bilevel NIV Bilevel O2 Flow Rate 45.00 45.00 45.00 12/02/18 12/02/18 12/02/18 12/02/18 07:05 08:00 08:00 08:00 Temp 37.2 Pulse 65 Resp 20 B/P (MAP) 141/64 (89) Pulse Ox 91 96 O2 Delivery Vapotherm NIV Bilevel NIV Bilevel O2 Flow Rate 40.00 45.00 FiO2 100 55 12/02/18 12/02/18 12/02/18 12/02/18 09:00 09:35 10:00 10:21 Pulse 64 61 61 Resp 35 18 24 B/P (MAP) 131/65 (87) 158/75 (102) Pulse Ox 84 95 95 O2 Delivery NIV Bilevel NIV Bilevel O2 Flow Rate 45.00 45.00 55.00 12/02/18 12/02/18 12/02/18 12/02/18 11:00 12:00 12:00 12:00 Temp 35.2 Pulse 64 60 Resp 17 21 B/P (MAP) 163/75 (104) 172/75 (107) Pulse Ox 96 94 O2 Delivery NIV Bilevel NIV Bilevel NIV Bilevel O2 Flow Rate 45.00 45.00 FiO2 55 12/02/18 12:00 Temp 35.2 12/02/18 00:00 Intake Total 1040 ml Output Total 1950 ml Balance -910 ml Weight (Pounds): 245 Weight (Ounces): 6.0 Weight (Calculated Kilograms): 111.658309 Constitutional: AAO x 3, well-developed, well-nourished, other (on BiPAP) Respiratory: No accessory muscle use; other (diminishe air entry, prolonged exp phase, coarse basal and mid-zone crackles) Cardiovascular: regular rate-rhythm, S1 and S2, systolic murmur (faint PAUL at card base) Gastrointestional: No tender, No guarding, No rebound; audible bowel sounds Extremities: swelling (mod, bilat, pitting and nonpitting edema); No clubbing, No cyanosis Neurologic/Psychiatric: oriented x 3, grossly intact, power is 5/5 both on sides Skin: No rash on exposed areas, No ulcerations on exposed areas Results/Procedures: Labs Laboratory Tests 12/02/18 03:48: White Blood Count 11.9H, Red Blood Count 3.82L, Hemoglobin 10.4L, Hematocrit 33L , Mean Corpuscular Volume 86, Mean Corpuscular Hemoglobin 27, Mean Corpuscular Hemoglobin Concent 32, Red Cell Distribution Width 18.2H, Platelet Count 395, Mean Platelet Volume 9.6, Neutrophils (%) (Auto) 92H, Lymphocytes (%) (Auto) 5L, Monocytes (%) (Auto) 4, Eosinophils (%) (Auto) 0, Basophils (%) (Auto) 0, Neutrophils # (Auto) 10.9H, Lymphocytes # (Auto) 0.5L, Monocytes # (Auto) 0.4, Eosinophils # (Auto) 0.0, Basophils # (Auto) 0.0, Sodium Level 135, Potassium Level 4.5, Chloride Level 96L, Carbon Dioxide Level 29, Anion Gap 10, Blood Urea Nitrogen 24H, Creatinine 0.87, Estimat Glomerular Filtration Rate > 60, BUN/Creatinine Ratio 28, Glucose Level 117H, Calcium Level 8.7, Phosphorus Level 3.3, Magnesium Level 2.3 Microbiology 11/24/18 Blood Culture - Final, Complete No growth 11/28/18 MRSA Screen - Final, Complete MRSA not isolated 11/24/18 Urine Culture - Final, Complete Mixed Bacterial Wendy Proteus mirabilis Laboratory Tests 12/01/18 01:08 12/02/18 03:48 A/P: Assessment: Multifactorial shortness of breath and chronic resp failure: pulmonary fibrosis, pneumonia, obesity-hypoventilation, chronic diastolic CHF Prolapse of colostomy, managed by Dr. Mccullough Hypertension, difficult to control Anemia of undetermined etiology, managed by the [facility], blood transfusion during this admission Acute on chronic renal failure, monitor renal function UTI, Dr Aburto managing Echo of 11/30/18: LVEF 55-65 percent, pulmonary hypertension with RVSP 65 mmHG, mild to mod tricuspid & mitral regurgitation, aortic valve sclerosis and mod MAC w/o stenoses Coronary artery disease, history of CABG x3 done in 1999 using RODRIGEZ to LAD, vein graft to the first obtuse marginal, vein graft to the left posterolateral branch of the left circumflex artery. Cardiac catheterization was done in November 2013 showed occluded vein graft to the left circumflex artery. Patient had 2 stents in the [place] circumflex artery, 3.516 mm proximally and 3.520 mm at the midportion, distally there was 60 percent stenosis. The LAD had significant disease proximally, patient has significantly tortuous thoracic and abdominal aorta and RODRIGEZ angio was not done due to the use of large amount of contrast. The right coronary artery was a small none dominant artery was not even visualized during this study. Patient had another stent placed in the circumflex artery at [facility] in 2014 Heavily calcified thoracic and abdominal aorta. CTA done on 01/06/2014 revealed no aneurysm or occlusions or stenosis of abdominal aorta or major branches, continue to monitor Hyperlipidemia History of CVA Mild carotid stenosis, nonobstructive disease bilaterally COPD/obstructive sleep apnea History of prostate CA with questionable metastasis followed and managed at (according to the pt) Cauda equina syndrome, h/o surgery Plan: * Add oral hydralazine for bp control * Continue other regimen * Monitor labs MARY MENDEZ MD FACP [facility] CCDS Dec 02, 2018 13:11
[2018-12-02] MEDS: hydrALAZINE (APRESOLINE) 25 MG TAB PO SCH ×2 (14:17→22:09)
[2018-12-02] MEDS: ASPIRIN E.C. 81 MG (ECOTRIN) TAB PO SCH (20:01)
[2018-12-02] MEDS: MELATONIN 3 MG TABLET PO SCH (20:01)
[2018-12-03] VITALS (21 sets, daily range): BP systolic 107–173; BP diastolic 50–82
[2018-12-03] MEDS: hydrALAZINE (APESOLINE) 20 MG/ML VIAL IV PRN ×2 (01:08→23:46)
[2018-12-03] MEDS: RT-ALBUTEROL/IPRATROPIUM 3 ML (DUONEB) VIAL INH SCH ×6 (03:40→21:17)
[2018-12-03] MEDS: methylPREDNISolone 40 MG/ML (Solu-MEDROL) VIAL IV SCH ×4 (03:53→21:54)
[2018-12-03] MEDS: PIPERACILLIN/TAZOBACTAM (BULK) 4.5 GM in NS (IVPB) 100 ML IV SCH ×3 (03:54→20:57)
[2018-12-03 04:12] LABS: BASOPHILS % (AUTO) 0 % (0-10); EOSINOPHILS % (AUTO) 0 % (0-10); HEMATOCRIT 32 % (40-54); HEMOGLOBIN 9.9 G/DL (13.3-17.7); LYMPHOCYTES # (AUTO) 0.5 X 10^3 (1.0-4.0); LYMPHOCYTES % (AUTO) 4 % (12-44); MEAN CORPUSCULAR HEMOGLOBIN 27 PG (25-34); MEAN CORPUSCULAR HGB CONC 31 G/DL (32-36); MEAN CORPUSCULAR VOLUME 86 FL (80-99); MEAN PLATELET VOLUME 9.8 FL (7.4-10.4); MONOCYTES # (AUTO) 0.5 X 10^3 (0.0-1.0); MONOCYTES % (AUTO) 4 % (0-12); NEUTROPHILS # (AUTO) 11.4 X 10^3 (1.8-7.8); NEUTROPHILS % (AUTO) 92 % (42-75); PLATELET COUNT 406 10^3/uL (130-400); RED CELL DISTRIBUTION WIDTH 18.6 % (10.0-14.5); WHITE BLOOD COUNT 12.4 10^3/uL (4.3-11.0)
[2018-12-03 04:21] LABS: BUN/CREATININE RATIO 32; CALCIUM 8.6 MG/DL (8.5-10.1); CARBON DIOXIDE 29 MMOL/L (21-32); CHLORIDE 95 MMOL/L (98-107); GFR ESTIMATED > 60; GLUCOSE 191 MG/DL (70-105); MAGNESIUM 2.2 MG/DL (1.6-2.4); PHOSPHORUS 3.1 MG/DL (2.3-4.7); POTASSIUM 4.4 MMOL/L (3.6-5.0); SODIUM 135 MMOL/L (135-145)
[2018-12-03] MEDS ORDERED: PHARMACY TO DOSE IV SCH (05:30)
[2018-12-03] MEDS: hydrALAZINE (APRESOLINE) 25 MG TAB PO SCH ×3 (06:03→21:55)
[2018-12-03] MEDS ORDERED: VANCOMYCIN 2000 MG/NS 500 ML IVPB IV NR ×2 (07:00)
--- NOTE | 2018-12-03 07:40 | Diagnostic Imaging Report ---
INDICATION: Coronary artery disease, shortness of breath. COMPARISON: 12/02/2018 FINDINGS: Single view of the chest demonstrates unchanged bilateral pulmonary infiltrates. The heart remains enlarged. There is no pneumothorax. There are questionable small effusions. Sternal wires are midline. IMPRESSION: Unchanged aeration of the lungs. Dictated by: Dictated on workstation # [id number]
--- NOTE | 2018-12-03 08:32 | Progress Note ---
Subjective Date Seen by a Provider: Dec 03, 2018 Time Seen by a Provider: 08:20 Subjective/Events-last exam PT REPORTS THAT HE IS FEELING A LITTLE BIT BETTER OVER THE PAST 24 HOURS. HE STATES THAT HE DID WELL WITH BREAKFAST, DID NOT CHOKE LIKE HE DID YESTERDAY. HE NOTES THAT HE HAS HAD EPISODES AT HOME INTERMITTENT WHERE HE HAD CHOKING EPISODES. HE NOTES THAT HE HAD BEEN ON VAPOTHERM AFTER BREAKFAST, BUT HE STARTED TO DESATURATE AND HE HAD TO BE PLACED ON BIPAP - HE THINKS THAT HE DESATURATED BECAUSE HE WAS "TALKING TOO MUCH". Review of Systems General: Fatigue HEENT: No Head Aches Pulmonary: Dyspnea, Cough Cardiovascular: No: Chest Pain, Palpitations Gastrointestinal: No: Nausea, Abdominal Pain Genitourinary: Other (NAPIER IN PLACE) Neurological: Weakness; No: Confusion Objective Exam Last Set of Vital Signs Vital Signs Date Time Temp Pulse Resp B/P (MAP) Pulse Ox O2 Delivery O2 Flow Rate FiO2 12/03/18 08:20 NIV Bilevel 60.00 12/03/18 08:00 68 13 127/65 (85) 12/03/18 06:23 94 12/03/18 03:20 36.9 12/02/18 19:30 55 Capillary Refill : Less Than 3 Seconds I&O Intake and Output 12/03/18 00:00 Intake Total 2220 ml Output Total 3000 ml Balance -780 ml Intake Oral 2100 ml IV Total 120 ml Output Urine Total 3000 ml # Bowel Movements 1 General: Alert, Oriented X3, Cooperative, No Acute Distress HEENT: Atraumatic, PERRLA Neck: Supple Lungs: Other (IMPROVED AIR MOVEMENT THROUGHOUT - LESS CRACKLES) Heart: Regular Rate Abdomen: Normal Bowel Sounds, Soft, No Tenderness Extremities: No Clubbing Skin: No Breakdown Neuro: Cranial Nerves 3-12 NL Psych/Mental Status: Mental Status NL, Mood NL Results Lab Laboratory Tests 12/03/18 03:05: White Blood Count 12.4H, Red Blood Count 3.70L, Hemoglobin 9.9L, Hematocrit 32L, Mean Corpuscular Volume 86, Mean Corpuscular Hemoglobin 27, Mean Corpuscular Hem oglobin Concent 31L, Red Cell Distribution Width 18.6H, Platelet Count 406H, Mean Platelet Volume 9.8, Neutrophils (%) (Auto) 92H, Lymphocytes (%) (Auto) 4L, Monocytes (%) (Auto) 4, Eosinophils (%) (Auto) 0, Basophils (%) (Auto) 0, Neutrophils # (Auto) 11.4H, Lymphocytes # (Auto) 0.5L, Monocytes # (Auto) 0.5, Eosinophils # (Auto) 0.0, Basophils # (Auto) 0.0, Sodium Level 135, Potassium Level 4.4, Chloride Level 95L, Carbon Dioxide Level 29, Anion Gap 11, Blood Urea Nitrogen 29H, Creatinine 0.90, Estimat Glomerular Filtration Rate > 60, BUN/Creatinine Ratio 32, Glucose Level 191H, Calcium Level 8.6, Phosphorus Level 3.1, Magnesium Level 2.2, B-Type Natriuretic Peptide 397.8H Microbiology 11/24/18 Blood Culture - Final, Complete No growth 11/28/18 MRSA Screen - Final, Complete MRSA not isolated 11/24/18 Urine Culture - Final, Complete Mixed Bacterial Wendy Proteus mirabilis Assessment/Plan Assessment/Plan Assess & Plan/Chief Complaint PULMONARY FIBROSIS WITH WORSENING DYSPNEA AND HYPOXEMIA WITH CHRONIC OXYGEN THERAPY PROLAPSED COLOSTOMY BLOOD PER COLOSTOMY INCARCERATED VENTRAL/STOMAL HERNIA CHRONIC ANEMIA CHRONIC DECUBITUS ULCERS CHRONIC OBSTRUCTIVE SLEEP APNEA CORONARY ARTERY DISEASE 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 LEUKOCYTOSIS HYPERKALEMIA (NOW RESOLVED) HYPERMAGNESEMIA PROTEUS URINARY TRACT INFECTION PULMONARY FIBROSIS WITH WORSENING DYSPNEA AND HYPOXEMIA WITH CHRONIC OXYGEN THERAPY - PT ON IV ANTIBIOTICS - CONTINUE WITH CURRENT MANAGEMENT - ZOSYN, VANC AND ERAXIS - THE CT ON ADMISSION WAS NEGATIVE FOR PULMONARY EMBOLI AND THE REPEAT CT SCAN WAS NEGATIVE FOR PULMONARY EMBOLI, DID SHOW PLEURAL EFFUSIONS AND CHEST XRAY CONTINUES TO SHOW INFILTRATE AND SMALL EFFUSIONS - CONTINUE WITH VAPOTHERM, WEAN ABLE - CONTINUE WITH ICU MANAGEMENT OF THIS PATIENT - PT HAS IMPROVED INCREMENTALLY OVER THE WEEKEND AND HAS PROGRESSED FROM BIPAP TO VAPOTHERM. PROLAPSED COLOSTOMY AND BLOOD PER COLOSTOMY WITH INCARCERATED VENTRAL/STOMAL HERNIA - DEFER TO DR. PAN - AT THIS TIME WE ARE WAITING ON ANY SURGICAL INTERVENTION DUE TO HIS PULMONARY STATUS CHRONIC ANEMIA - HGB CONTINUES TO SLOWLY IMPROVE - ONCE STABLE, WILL CONSIDER IV IRON AGAIN OUTPATIENT. CHRONIC DECUBITUS ULCERS - WOUND CARE CONSULTED CHRONIC OBSTRUCTIVE SLEEP APNEA - SEE ABOVE STATUS - ON VAPOTHERM, BREATHING TREATMENTS, ETC. CORONARY ARTERY DISEASE - DR. BARRETT CONSULTED - APPRECIATE HIS INPUT ON THIS COMPLICATED PATIENT. CAUDA EQUINA SYNDROME - AT THIS TIME - WE WILL WAIT ON ANY THERAPY - DUE TO PT'S PULMONARY DECONDITIONING AND INABILITY TO LEAVE ROOM. CHRONIC INDWELLING SUPRAPUBIC CATHETER - SUPPORTIVE CARE ONLY AT THIS TIME LEUKOCYTOSIS - MONITOR WBC'S, PT ON SOLUMEDROL 40MG IV Q6 HR - WHICH HAS CAUSED IATROGENIC WBC ELEVATION HYPERKALEMIA (NOW RESOLVED) HYPERMAGNESEMIA - MONITOR, REPLACE NEEDED PROTEUS URINARY TRACT INFECTION - ON ZOSYN OVERALL PROGNOSIS HALFWAY IS A POOR PROGNOSIS DUE TO HIS MULTIPLE CO-MORBID CONDITIONS. I HAVE HAD A CONVERSATION WITH ALBINA IN THE OFFICE AT HIS LAST OFFICE VISIT - INSTIGATED BY ALBINA HIMSELF. HE UNDERSTANDS THAT WITH RECURRENT INFECTIONS, HIS RISK OF GREATLY INCREASES AND HE HAS HIGH RISK FOR IN THE NEXT 6-12 MONTHS. Clinical Quality Measures DVT/VTE Risk/Contraindication: Risk Factor Score Per Nursin RFS Level Per Nursing on Admit: 4+=Very High FEDE BUTLER MD Dec 03, 2018 08:32
--- NOTE | 2018-12-03 09:23 | Progress Note - Cardiology ---
Cardiology SOAP Progress Note Subjective: Shortness of breath as before No cp or palp or syncope Objective: I&O/Vital Signs 12/02/18 12/02/18 12/02/18 12/02/18 22:00 22:00 23:00 23:46 Temp 36.3 36.8 Pulse 66 66 B/P (MAP) 152/71 (98) 166/75 (105) Pulse Ox 94 95 O2 Delivery NIV Bilevel NIV Bilevel NIV Bilevel O2 Flow Rate 55.00 55.00 55.00 12/03/18 12/03/18 12/03/18 12/03/18 00:00 01:00 01:00 01:30 Pulse 66 63 63 64 Resp 28 26 B/P (MAP) 155/72 (99) 170/79 (109) 148/67 (94) Pulse Ox 95 95 95 O2 Delivery NIV Bilevel NIV Bilevel NIV Bilevel O2 Flow Rate 55.00 55.00 55.00 12/03/18 12/03/18 12/03/18 12/03/18 02:00 03:00 03:20 03:41 Temp 36.9 Pulse 73 66 68 66 Resp 25 35 22 B/P (MAP) 143/65 (91) 152/75 (100) Pulse Ox 94 95 91 O2 Delivery NIV Bilevel NIV Bilevel NIV Bilevel O2 Flow Rate 55.00 55.00 55.00 55.00 12/03/18 12/03/18 12/03/18 12/03/18 04:00 05:00 06:00 06:23 Pulse 67 62 65 68 66 Resp 19 18 21 22 B/P (MAP) 130/64 (86) 151/68 (95) 168/77 (107) Pulse Ox 94 96 97 94 O2 Delivery NIV Bilevel NIV Bilevel NIV Bilevel O2 Flow Rate 55.00 55.00 55.00 55.00 12/03/18 12/03/18 12/03/18 12/03/18 07:00 07:23 08:00 08:20 Pulse 66 68 Resp 13 B/P (MAP) 127/65 (85) O2 Delivery Vapotherm Vapotherm NIV Bilevel O2 Flow Rate 40.00 40.00 60.00 100.00 100.00 12/02/18 23:59 Intake Total 1520 ml Output Total 1350 ml Balance 170 ml Weight (Pounds): 245 Weight (Ounces): 6.0 Weight (Calculated Kilograms): 111.966388 Constitutional: AAO x 3, well-developed, well-nourished, other (on BiPAP) Respiratory: No accessory muscle use; other (diminishe air entry, prolonged exp phase, coarse basal and mid-zone crackles) Cardiovascular: regular rate-rhythm, S1 and S2, systolic murmur (faint PAUL at card base) Gastrointestional: No tender, No guarding, No rebound; audible bowel sounds Extremities: swelling (mod, bilat, pitting and nonpitting edema); No clubbing, No cyanosis Neurologic/Psychiatric: oriented x 3, grossly intact, power is 5/5 both on sides Skin: No rash on exposed areas, No ulcerations on exposed areas Results/Procedures: Labs Laboratory Tests 12/03/18 03:05: White Blood Count 12.4H, Red Blood Count 3.70L, Hemoglobin 9.9L, Hematocrit 32L, Mean Corpuscular Volume 86, Mean Corpuscular Hemoglobin 27, Mean Corpuscular Hemoglobin Concent 31L, Red Cell Distribution Width 18.6H, Platelet Count 406H, Mean Platelet Volume 9.8, Neutrophils (%) (Auto) 92H, Lymphocytes (%) (Auto) 4L, Monocytes (%) (Auto) 4, Eosinophils (%) (Auto) 0, Basophils (%) (Auto) 0, Neutrophils # (Auto) 11.4H, Lymphocytes # (Auto) 0.5L, Monocytes # (Auto) 0.5, Eosinophils # (Auto) 0.0, Basophils # (Auto) 0.0, Sodium Level 135, Potassium Level 4.4, Chloride Level 95L, Carbon Dioxide Level 29, Anion Gap 11, Blood Urea Nitrogen 29H, Creatinine 0.90, Estimat Glomerular Filtration Rate > 60, BUN/Creatinine Ratio 32, Glucose Level 191H, Calcium Level 8.6, Phosphorus Level 3.1, Magnesium Level 2.2, B-Type Natriuretic Peptide 397.8H Microbiology 11/24/18 Blood Culture - Final, Complete No growth 11/28/18 MRSA Screen - Final, Complete MRSA not isolated 11/24/18 Urine Culture - Final, Complete Mixed Bacterial Wendy Proteus mirabilis Laboratory Tests 12/02/18 03:48 12/03/18 03:05 A/P: Assessment: Multifactorial shortness of breath and chronic resp failure: pulmonary fibrosis, pneumonia, obesity-hypoventilation, chronic diastolic CHF Prolapse of colostomy, managed by Dr. Mccullough Hypertension, difficult to control [facility] und[facility] transfusion during this admission Acute on chronic renal failure, monitor renal function UTI, Dr Aburto managing Echo of 11/30/18: LVEF 55-65 percent, pulmonary hypertension with RVSP 65 mmHG, mild to mod tricuspid & mitral regurgitation, aortic valve sclerosis and mod MAC w/o stenoses Coronary artery disease, history of CABG x3 done in 1999 using RODRIGEZ to LAD, vein graft to the first obtuse marginal, vein graft to the left posterolateral branch of the left circumflex artery. Cardiac catheterization was done in November 2013 showed occluded vein graft to the left circumflex artery. Patient had 2 stents in the [place] circumflex artery, 3.516 mm proximally and 3.520 mm at the midportion, distally there was 60 percent stenosis. The LAD had significant disease proximally, patient has significantly tortuous thoracic and abdominal aorta and RODRIGEZ angio was not done due to the use of large amount of contrast. The right coronary artery was a small none dominant artery was not even visualized during this study. Patient had another stent placed in the circumflex artery at [facility] in 2014 Heavily calcified thoracic and abdominal aorta. CTA done on 01/06/2014 revealed no aneurysm or occlusions or stenosis of abdominal aorta or major branches, continue to monitor Hyperglycemia, managed by Dr Aburto History of CVA Mild carotid stenosis, nonobstructive disease bilaterally COPD/obstructive sleep apnea History of prostate CA with questionable metastasis followed and managed at (according to the pt) Cauda equina syndrome, h/o surgery Plan: * BP better controlled after addition of oral hydralazine * Monitor labs * I spoke with him and a daughter who was by his bedside. I answered CV-related questions MARY MENDEZ MD FACP FAC CCDS Dec 03, 2018 09:23
[2018-12-03] MEDS: BUMETANIDE 2.5 MG/10 ML (BUMEX) VIAL IV SCH ×2 (09:24→20:57)
[2018-12-03] MEDS: POLYETHYLENE GLYCOL 17 GM (MIRALAX) PACK PO SCH (09:27)
[2018-12-03] MEDS: ANIDULAFUNGIN INJECTION 100 MG in NS (IVPB) 100 ML IV SCH (09:36)
[2018-12-03] MEDS: PANTOPRAZOLE 40 MG (PROTONIX) VIAL IV SCH (09:37)
[2018-12-03] MEDS: DULoxetine 30 MG (CYMBALTA) CAP PO SCH (09:37)
[2018-12-03] MEDS: MULTIVIT W/MINERALS TAB (THERAGRAN M) PO SCH (09:37)
[2018-12-03] MEDS: ENOXAPARIN 40 MG/0.4 ML (LOVENOX) SYR SC SCH (09:37)
[2018-12-03] MEDS: SPIRONOLACTONE 100 MG (ALDACTONE) TABLET PO SCH (09:38)
[2018-12-03] MEDS: VITAMIN D3 400 UNITS (CHOLECALCIFEROL) TABLET PO SCH ×2 (09:39→20:58)
[2018-12-03] MEDS: GABAPENTIN 600 MG (NEURONTIN) TAB PO SCH ×2 (09:39→20:58)
[2018-12-03] MEDS: CARVEDILOL 12.5 MG (COREG) TABLET PO SCH ×2 (09:39→20:58)
[2018-12-03] MEDS: cloNIDine 0.2 MG (CATAPRES) TAB PO SCH ×2 (09:39→20:58)
[2018-12-03] MEDS: amLODIPine 10 MG (NORVASC) TAB PO SCH (09:39)
[2018-12-03] MEDS: CLOPIDOGREL 75 MG (PLAVIX) TABLET PO SCH (09:39)
--- NOTE | 2018-12-03 10:49 | NUR ---
VANCOMYCIN DOSING DR CHIN RESTARTED VANC - BOLUSED WITH VANC 20 MG/KG X 101 KG ~ 2 GM THEN VANC 1500 MG Q24H BASED ON PREVIOUS DOSING CHECK TROUGH LEVEL 12/05 AT 0600 BEFORE 3RD DOSE HOLD DOSE AND CONTACT PHARMACY IF LEVEL IS GREATER THAN 20 OR LESS THAN 10 Addendum: 12/03/18 at 1404 by ORLY TANG [facility] UPON FURTHER REVIEW CHANGED VANC DOSE TO 1750 MG Q24H
--- NOTE | 2018-12-03 11:09 | Pulmonary Progress Note ---
Subjective Time Seen by a Provider: 11:07 Subjective/Events-last exam Pt states he feels better however he is still requiring a lot of oxygen and BiPAP. Sepsis Event Evaluation Height, Weight, BMI Height: 5'10.00" Weight: 245lbs. 6.0oz. 111.616192mk; 32.67 BMI Method:Stated Exam Exam Vital Signs Date Time Temp Pulse Resp B/P (MAP) Pulse Ox O2 Delivery O2 Flow Rate FiO2 12/03/18 10:20 68 22 94 60.00 66 12/03/18 09:54 36.9 68 94 12/03/18 08:20 NIV Bilevel 60.00 12/03/18 08:00 68 13 127/65 (85) Vapotherm 40.00 100.00 12/03/18 07:23 Vapotherm 40.00 100.00 12/03/18 07:00 66 12/03/18 06:23 68 22 94 55.00 66 12/03/18 06:00 65 21 168/77 (107) 97 NIV Bilevel 55.00 12/03/18 05:00 62 18 151/68 (95) 96 NIV Bilevel 55.00 12/03/18 04:00 67 19 130/64 (86) 94 NIV Bilevel 55.00 12/03/18 03:41 68 22 91 55.00 66 12/03/18 03:20 36.9 NIV Bilevel 55.00 12/03/18 03:00 66 35 152/75 (100) 95 NIV Bilevel 55.00 12/03/18 02:00 73 25 143/65 (91) 94 NIV Bilevel 55.00 12/03/18 01:30 64 26 148/67 (94) 95 NIV Bilevel 55.00 12/03/18 01:00 63 12/03/18 01:00 63 28 170/79 (109) 95 NIV Bilevel 55.00 12/03/18 00:00 66 155/72 (99) 95 NIV Bilevel 55.00 12/02/18 23:46 36.8 NIV Bilevel 55.00 12/02/18 23:00 66 166/75 (105) 95 NIV Bilevel 55.00 12/02/18 22:00 66 152/71 (98) 94 NIV Bilevel 55.00 12/02/18 22:00 36.3 12/02/18 21:00 67 145/68 (93) 93 NIV Bilevel 55.00 12/02/18 21:00 35.7 12/02/18 20:30 65 24 153/76 (101) 93 NIV Bilevel 55.00 12/02/18 20:00 67 20 170/73 (105) 95 NIV Bilevel 55.00 12/02/18 19:37 69 22 97 55.00 12/02/18 19:30 NIV Bilevel 55.00 12/02/18 19:30 93 NIV Bilevel 55 12/02/18 19:00 63 22 152/60 (90) 90 NIV Bilevel 55.00 12/02/18 19:00 63 12/02/18 18:00 65 19 156/68 (97) 90 NIV Bilevel 45.00 12/02/18 17:00 65 14 144/99 (114) 96 NIV Bilevel 45.00 12/02/18 16:00 61 23 162/74 (103) 95 NIV Bilevel 45.00 12/02/18 16:00 NIV Bilevel 55 12/02/18 16:00 35.6 12/02/18 15:00 57 22 159/75 (103) 92 NIV Bilevel 45.00 12/02/18 14:40 66 24 95 55.00 12/02/18 14:00 59 21 159/77 (104) 96 NIV Bilevel 45.00 12/02/18 13:07 59 12/02/18 13:00 64 13 142/57 (85) 89 NIV Bilevel 45.00 12/02/18 12:15 Vapotherm 12/02/18 12:00 35.2 12/02/18 12:00 60 21 172/75 (107) 94 NIV Bilevel 45.00 12/02/18 12:00 35.2 12/02/18 12:00 NIV Bilevel 55 I & O 12/03/18 07:00 Intake Total 2320 ml Output Total 2950 ml Balance -630 ml Height & Weight Height: 5'10.00" Weight: 245lbs. 6.0oz. 111.513920vf; 32.67 BMI Method:Stated General Appearance: No Apparent Distress, Chronically ill HEENT: PERRL/EOMI Neck: Normal Inspection Respiratory: Lungs Clear, Accessory Muscle Use, Crackles, Decreased Breath Sounds, Other (on BiPAP) Cardiovascular: Regular Rate, Rhythm, No Murmur Capillary Refill: Less Than 3 Seconds Gastrointestinal: non tender, soft, other (ventral hernia incarcerated, left lower quadrant colostomy prolapsed, + stool, stomal herniation no blood) Extremity: No Calf Tenderness, No Pedal Edema Neurologic/Psychiatric: Alert, Oriented x3, Normal Mood/Affect Skin: Normal Color Lymphatic: No Adenopathy Results Lab Laboratory Tests 12/02/18 03:48 12/03/18 03:05 Assessment/Plan Assessment/Plan Acute on chronic respiratory failure -Vapotherm -Titrate for Sp02 90-94% - Currently on BiPAP QHS and PRN -SL IVF -CTA of chest - reviewed -CXR shows persistent bilateral extensive infiltrates. -Continue Zosyn, vanco -Await castillo cultures PNA with ARDS -Zosyn- continue for total 10days and Eraxis. -Restart Vancomycin secondary to worsening CXR infiltrates. -Continue Bumex - -Pt is DNR Grade II dyastolic dysfunction -Continue IV bumex 2mg- increase to BID - spironolactone continue daily labs Hx of pulmonary fibrosis -Monitor prolapsed colostomy with blood per colostomy and stomal herniation/ventral hernia incarcerated -Surgery following Hx of cauda equina anemia -Monitor -Hb appears to be stable. Pt is high risk for DVT/PE PT's prognosis is guarded to poor. Will continue to monitor closely. LAUREN CHIN DO Dec 03, 2018 11:09
--- NOTE | 2018-12-03 11:35 | NUR ---
PT INTO WORK WITH PATIENT. UNABLE TO COMPLETE THERAPY PATIENT DESATS TO 78% ON BIPAP FI02 60%. THIS RN ALERTED AND BIPAP INCREASED TO 100% FI02 FOR RECOVERY. OXYGEN SATURATIONS RETURNED TO 94% AFTER APPROX 2 MINUTES. WILL TITRATE DOWN PER PATIENT CONDITION AND VITALS. PT IS VERBAL AND VISIBLY SOA. STATES HE FEELS BETTER WITH RETURN OF SATS.
--- NOTE | 2018-12-03 11:37 | NUR ---
PALLIATIVE CARE RN in to see patient. He is sitting in bed with BiPAP on. Alert and agreeable to visit. Patients is at the bedside. We visited briefly , laughing and joking. Then PT came in and moved him. He desaturated and took a bit to return to SPo2 over 90%. Nursing turned settings up and called RT. While this was happening patient became very serious and stopped all joking. took me aside to ask about hospice. She want to know if hospice happened at home or at hospice. Educated her again on where hospice could occur and again discussed what they cover in the way of equipment. Went over the hospice choices and will take brochures. I talked to her about LTAC in [place] where he would have a longer time to try to get better. She will consider this as an option.
--- NOTE | 2018-12-03 11:57 | Physical Therapy Evaluation ---
PT Evaluation-General Medical Diagnosis Admission Date Nov 25, 2018 at 12:26 Medical Diagnosis: pulmonary fibrosis/RACQUEL/hypoxia Onset Date: Nov 25, 2018 Therapy Diagnosis Therapy Diagnosis: debility/diminished pulmonary function Height/Weight Height (Feet): 5 Height (Inches): 10.00 Weight (Pounds): 245 Weight (Ounces): 6.0 Precautions Precautions/Isolations: Fall Prevention, Standard Precautions, Pressure Ulcer Referral Physician: Pamela Reason for Referral: Evaluation/Treatment Medical History Pertinent Medical History: CABG, CAD, CVA, GERD, HTN Current History transfer to ICU due to respiratory failure Reviewed History: Yes Social History Home: Single Level Current Living Status: Spouse Entry Into Home: Ramp Prior Prior Level of Function SCALE: Activities may be completed with or without assistive devices. 5-Rthivjkptr-fpsokdb completes the activity by him/herself with no assistance from a helper. 5-Set-up or Clean-up Assistance-helper sets up or cleans up; patient completes activity. [place] assists only prior to or following the activity. 4-Supervision or Touching Assistance-helper provides verbal cues and/or touching/steadying and/or contact guard assistance as patient completes activity. Assistance may be provided throughout the activity or intermittently. 3-Partial/Moderate Assistance-helper does LESS THAN HALF the effort. [place] lifts, holds or supports trunk or limbs, but provides less than half the effort. 2-Substantial/Maximal Assistance-helper does MORE THAN HALF the effort. [place] lifts or holds trunk or limbs and provides more than half the effort. 4-Bqragiuaa-dkopda does ALL the effort. Patient does none of the effort to complete the activity. Or, the assistance of 2 or more helpers is required for the patient to complete the activity. If activity was not attempted, code reason: 7-Patient Refused. 9-Not Applicable-not attempted and the patient did not perform the activity before the current illness, exacerbation or injury. 10-Not Attempted due to Environmental Limitations-(lack of equipment, weather restraints, etc.). 88-Not Attempted due to Medical Conditions or Safety Concerns. Bed Mobility: 5 Transfers (B,C,W/C): 5 Indoor Mobility (Ambulation): Not Applicalbe Stairs: Not Applicalbe Prior Devices Use: Motorized wheelchair PT Evaluation-Current Subjective Agrees to PT. Currently on BiPap. Pain Numeric Pain Scale: 0-No Pain Location: No Pain Reported Objective Patient Orientation: Normal For Age Problem Solving: Fair Attachments: Oxygen (bipap), Suprapubic Catheter ROM/Strength ROM Lower Extremities bilateral LE WFL Strength Lower Extremities 3-/5 grossly bilateral LE Integumentary/Posture Integumentary refer to nursing notes Bowel Incontinence: No Posture WFL Neuromuscular (Tone, Coordination, Reflexes) diminished coordination due to deconditioned state Sensory Vision: Wears Glasses Hearing: Functional Sensation Right Lower Extremit: Impaired Sensation Left Lower Extremity: Impaired Transfers Roll Left to Right (QC): 2 Sit to Lying (QC): 3 Lying to Sitting/Side of Bed(Q: 5 Patient required assist for repositioning up in bed due to desat and weakness Balance Standing Static: Fair Standing Dynamic: Fair Assessment/Needs 77 y.o. male, will be seen by skilled PT to address functional strength and transfer training. Patient SAO2 decreased to 78% during PT session on BiPap. RN in to increase settings. PT to address patient needs as tolerated. Rehab Potential: Poor PT Chcf Goals Catering Server Goals PT Catering Server Goals Time Frame: Dec 15, 2018 Sit to Lying (QC): 5 Lying-Sitting on Side/Bed(QC): 5 Sit to Stand (QC): 5 Roll Left to Right (QC): 5 Chair/Uiw-rz-Jnayc Xfer(QC): 5 Car Transfer (QC): 5 Does the Patient Walk: No and Walking Goal NOT indicated PT Plan Problem List Problem List: Activity Tolerance, Functional Strength, ROM Treatment/Plan Treatment Plan: Continue Plan of Care Treatment Plan: Bed Mobility, Education, Functional Activity Razia, Functional Strength, Safety, Therapeutic Exercise, Transfers Treatment Duration: Dec 15, 2018 Frequency: 5 times per week Estimated Hrs Per Day: .25 hour per day Patient and/or Family Agrees t: Yes Time/GCodes Time In: 1114 Time Out: 1126 Total Billed Treatment Time: 12 Total Billed Treatment 1 visit EVMod 12 min DELANO MONTGOMERY PT Dec 03, 2018 11:57
--- NOTE | 2018-12-03 12:17 | ST Dysphagia Evaluation ---
Speech Evaluation-General Medical Diagnosis pulmonary fibrosis/RACQUEL/hypoxia Onset Date: Nov 25, 2018 Therapy Diagnosis Therapy Diagnosis: Oropharyngeal Dysphagia Precautions Precautions: Aspiration Precautions/Isolations: Aspiration, Standard Precautions Referral Referring Physician: Dr. Aburto Reason for Referral: Evaluation/Treatment Medical History Pertinent Medical History: CABG, CAD, CVA, GERD, HTN Current History Pulmonary fibrosis/RACQUEL/hypoxia Reviewed History: Yes Social History Current Living Status: Spouse Speech PLF/Current-Dysphagia Prior Level of Function Patient lived at home with his where he was supported by her for meeting his daily needs. Cognitive Status Patient Orientation: Person, Place Patient is oriented to all concepts Oral Motor Skills Dentition: Natural Current Food Consistancy: Regular Ability to Follow Directions: Good Patient states he chokes on the first bite or drink with every meal. Patient educated to start with a small sip of liquids to moisten the swallow pathway. Also to alternate the food:drink at a 2:1 ratio. He voiced understanding. Oral Expression Ability: No Impairment Voice Voice Phonatory-Based Quality: Breathy Face Facial Symmetry: Symmetrical Oral-Facial Assessment Oral-Facial Dentition: Normal Labial Seal Description: Normal Puff Cheeks: Reduced Strength Lingual Protrusion: Normal Lingual ROM: Normal Lingual Strength: Normal Pharynx Velopharyngeal Move.: Normal Volitional Dry Swallow: Yes Voluntary Cough: Yes Can Clear Throat Volitionally: Yes Dysphagia Evaluation Consistencies Presented: Regular, Thin Liquid, Mechanical Soft, Pureed Oral phase is within normal range of function. Pharyngeal phase is within normal range of function. Dietary Recommendations: Regular Liquid Recommendations: Thin Swallowing Precautions: Alternate Liquids/Solids, Decreased Bolus 1/2 Tsp, Liquids from Straw, Small Bites and Sips, Sitting Upright 90 Degrees, Sitting 90 Degrees 30 Post Intake Dysphagia Evaluation Summary Patient is a very ill man who has been on 15L of O2 with vapotherm and bipap. Patient was referred for a dysphagia evaluation due to choking during breakfast on 12/02/18. Patient consumed his regular breakfast this am without incidence. Patient exhibits normal oral and pharyngeal function with all consistencies. Patient will continue on regular with thin liquids. Patient is recommended for dysphagia therapy for safe intake strategies training. Barriers to Learning Patient has multiple comorbidities Speech Short Term Goals Short Term Goals Short Term Goals 1) Patient will tolerate least restrictive diet level without s/s of aspiration at 90% or greater. 2) Patient/caregiver will utilize compensatory strategies as trained at 90% or greater with minimal cues. Speech Retirement Goals Retirement Goals Patient will maintain adequate nutrition/hydration via safe effective swallow function. Speech-Plan Patient/Family Goals Patient/Family Goals: Patient plans on returning home where he lives with his upon discharge. Treatment Plan Speech Therapy Treatment Plan: Continue Plan of Care Patient will receive compensatory strategies training. Treatment Duration: Dec 07, 2018 Frequency: 2 times per week Estimated Hrs Per Day: .25 hour per day Rehab Potential: Poor Barriers to Learning: Patient has multiple comorbidities Pt/Family Agrees to Plan: Yes Safety Risks/Education Teaching Recipient: Patient, Significant Other Teaching Methods: Discussion Response to Teaching: Verbalize Understanding Education Topics Provided: Safety of oral intake of alternating food:drink Time Speech Therapy Time In: 09:00 Speech Therapy Time Out: 09:15 Total Billed Time: 15 Billed Treatment Time 1, TIFFANY Sandoval Dec 03, 2018 12:17
[2018-12-03] MEDS: LOSARTAN 50 MG (COZAAR) TAB PO SCH (13:05)
--- NOTE | 2018-12-03 14:11 | Occ Therapy Progress Note ---
Therapy Progress Note Pt's nurse notified of OT evaluation. Nursing states therapy hold due to low sats while on BiPAP. OT to eval/ treat on later day. CHANDRAKANT GOYAL OTR Dec 03, 2018 14:11
[2018-12-03] MEDS: ASPIRIN E.C. 81 MG (ECOTRIN) TAB PO SCH (20:58)
[2018-12-03] MEDS: MELATONIN 3 MG TABLET PO SCH (20:58)
[2018-12-04] VITALS (19 sets, daily range): BP systolic 118–178; BP diastolic 61–84
[2018-12-04] MEDS: RT-ALBUTEROL/IPRATROPIUM 3 ML (DUONEB) VIAL INH SCH ×6 (02:00→21:37)
[2018-12-04 03:29] LABS: BASOPHILS % (AUTO) 0 % (0-10); EOSINOPHILS % (AUTO) 0 % (0-10); HEMATOCRIT 32 % (40-54); LYMPHOCYTES # (AUTO) 0.5 X 10^3 (1.0-4.0); LYMPHOCYTES % (AUTO) 4 % (12-44); MEAN CORPUSCULAR HEMOGLOBIN 27 PG (25-34); MEAN CORPUSCULAR HGB CONC 31 G/DL (32-36); MEAN CORPUSCULAR VOLUME 86 FL (80-99); MEAN PLATELET VOLUME 9.5 FL (7.4-10.4); MONOCYTES # (AUTO) 0.5 X 10^3 (0.0-1.0); MONOCYTES % (AUTO) 4 % (0-12); NEUTROPHILS # (AUTO) 11.6 X 10^3 (1.8-7.8); NEUTROPHILS % (AUTO) 92 % (42-75); PLATELET COUNT 355 10^3/uL (130-400); RED CELL DISTRIBUTION WIDTH 18.1 % (10.0-14.5); WHITE BLOOD COUNT 12.6 10^3/uL (4.3-11.0)
[2018-12-04 03:53] LABS: BUN/CREATININE RATIO 34; CALCIUM 8.2 MG/DL (8.5-10.1); CARBON DIOXIDE 29 MMOL/L (21-32); CHLORIDE 96 MMOL/L (98-107); CREATININE SERUM 0.91 MG/DL (0.60-1.30); GFR ESTIMATED > 60; GLUCOSE 124 MG/DL (70-105); MAGNESIUM 2.2 MG/DL (1.6-2.4); PHOSPHORUS 2.9 MG/DL (2.3-4.7); POTASSIUM 4.4 MMOL/L (3.6-5.0); SODIUM 135 MMOL/L (135-145)
[2018-12-04] MEDS: PIPERACILLIN/TAZOBACTAM (BULK) 4.5 GM in NS (IVPB) 100 ML IV SCH ×3 (04:14→20:02)
[2018-12-04] MEDS: methylPREDNISolone 40 MG/ML (Solu-MEDROL) VIAL IV SCH ×4 (04:14→21:58)
[2018-12-04] MEDS: hydrALAZINE (APRESOLINE) 25 MG TAB PO SCH ×3 (06:06→21:58)
[2018-12-04] MEDS: VANCOMYCIN INJECTION 1,750 MG in NS IV 500 ML 500 ML IV SCH (06:08)
--- NOTE | 2018-12-04 07:45 | Diagnostic Imaging Report ---
INDICATION: Shortness of breath, dyspnea. TECHNIQUE: Single view chest 3:21 AM. CORRELATION STUDY: 12/03/2018 FINDINGS: Extensive patchy somewhat nodular infiltrate-like densities throughout both lung cramer right greater than left persisting. Findings are generally stable perhaps slightly increased in severity. Post sternotomy changes along with coronary artery bypass. Heart size enlarged. Mediastinum is widened. IMPRESSION: 1. Extensive multilobar patchy infiltrates are present right greater than left, but overall appear slightly increased. Dictated by: Dictated on workstation # [id number]
[2018-12-04] MEDS: POLYETHYLENE GLYCOL 17 GM (MIRALAX) PACK PO SCH (08:06)
[2018-12-04] MEDS: ANIDULAFUNGIN INJECTION 100 MG in NS (IVPB) 100 ML IV SCH (08:06)
[2018-12-04] MEDS: MULTIVIT W/MINERALS TAB (THERAGRAN M) PO SCH (08:07)
[2018-12-04] MEDS: PANTOPRAZOLE 40 MG (PROTONIX) VIAL IV SCH (08:07)
[2018-12-04] MEDS: ENOXAPARIN 40 MG/0.4 ML (LOVENOX) SYR SC SCH (08:07)
[2018-12-04] MEDS: BUMETANIDE 2.5 MG/10 ML (BUMEX) VIAL IV SCH ×2 (08:07→20:02)
[2018-12-04] MEDS: cloNIDine 0.2 MG (CATAPRES) TAB PO SCH ×2 (08:07→20:03)
[2018-12-04] MEDS: ASPIRIN E.C. 81 MG (ECOTRIN) TAB PO SCH (08:08)
[2018-12-04] MEDS: CARVEDILOL 12.5 MG (COREG) TABLET PO SCH ×2 (08:08→20:03)
[2018-12-04] MEDS: VITAMIN D3 400 UNITS (CHOLECALCIFEROL) TABLET PO SCH ×2 (08:08→20:02)
[2018-12-04] MEDS: CLOPIDOGREL 75 MG (PLAVIX) TABLET PO SCH (08:08)
[2018-12-04] MEDS: GABAPENTIN 600 MG (NEURONTIN) TAB PO SCH ×2 (08:08→20:02)
[2018-12-04] MEDS: amLODIPine 10 MG (NORVASC) TAB PO SCH (08:08)
[2018-12-04] MEDS: SPIRONOLACTONE 100 MG (ALDACTONE) TABLET PO SCH (08:08)
[2018-12-04] MEDS: DULoxetine 30 MG (CYMBALTA) CAP PO SCH (08:08)
--- NOTE | 2018-12-04 08:41 | Progress Note ---
Subjective Date Seen by a Provider: Dec 04, 2018 Time Seen by a Provider: 08:30 Subjective/Events-last exam PT IS A 77 Y/O MALE WHO IS KNOWN TO ME FROM CLINIC AND PREVIOUS HOSPTHE [facility]. HE HAS MULTILOBAR PNEUMONIA, PULMONARY FIBROSIS AND COPD WITH CORONARY ARTERY DISEASE. ALBINA HAD PHYSICAL THERAPY YESTERDAY AND HAD SEVERE DESATURATION DOWN TO 78% WITH NEED FOR BIPAP CHANGES TO RECOVER HIS OXYGEN UP TO 90%. Review of Systems General: No Chills; Fatigue, Malaise Pulmonary: Dyspnea, Cough Cardiovascular: No: Chest Pain, Palpitations Gastrointestinal: No: Nausea, Abdominal Pain Genitourinary: Other (pate in place) Musculoskeletal: back pain Neurological: Weakness; No: Confusion Objective Exam Last Set of Vital Signs Vital Signs Date Time Temp Pulse Resp B/P (MAP) Pulse Ox O2 Delivery O2 Flow Rate FiO2 12/04/18 08:06 NIV Bilevel 50.00 12/04/18 06:48 94 100 12/04/18 06:00 59 156/73 (100) 12/04/18 05:00 29 12/04/18 03:55 36.5 Capillary Refill : Less Than 3 Seconds I&O Intake and Output 12/04/18 00:00 Intake Total 1890 ml Output Total 2475 ml Balance -585 ml Intake Oral 1250 ml IV Total 640 ml Output Urine Total 2475 ml # Bowel Movements 3 General: Alert, Oriented X3, Cooperative, No Acute Distress HEENT: Atraumatic, PERRLA Neck: Supple Lungs: Other (DECREASED AIR MOVEMENT THROUGHOUT) Heart: Regular Rate Abdomen: Normal Bowel Sounds, Soft, No Tenderness Neuro: Other Results Lab Laboratory Tests 12/04/18 03:15: White Blood Count 12.6H, Red Blood Count 3.73L, Hemoglobin 10.0L, Hematocrit 32L , Mean Corpuscular Volume 86, Mean Corpuscular Hemoglobin 27, Mean Corpuscular Hemoglobin Concent 31L, Red Cell Distribution Width 18.1H, Platelet Count 355, Mean Platelet Volume 9.5, Neutrophils (%) (Auto) 92H, Lymphocytes (%) (Auto) 4L, Monocytes (%) (Auto) 4, Eosinophils (%) (Auto) 0, Basophils (%) (Auto) 0, Neutrophils # (Auto) 11.6H, Lymphocytes # (Auto) 0.5L, Monocytes # (Auto) 0.5, Eosinophils # (Auto) 0.0, Basophils # (Auto) 0.0, Sodium Level 135, Potassium Level 4.4, Chloride Level 96L, Carbon Dioxide Level 29, Anion Gap 10, Blood Urea Nitrogen 31H, Creatinine 0.91, Estimat Glomerular Filtration Rate > 60, BUN/Creatinine Ratio 34, Glucose Level 124H, Calcium Level 8.2L, Phosphorus Level 2.9, Magnesium Level 2.2 Microbiology 11/24/18 Blood Culture - Final, Complete No growth 11/28/18 MRSA Screen - Final, Complete MRSA not isolated 11/24/18 Urine Culture - Final, Complete Mixed Bacterial Wendy Proteus mirabilis Assessment/Plan Assessment/Plan Assess & Plan/Chief Complaint PULMONARY FIBROSIS WITH WORSENING DYSPNEA AND HYPOXEMIA WITH CHRONIC OXYGEN THERAPY PROLAPSED COLOSTOMY BLOOD PER COLOSTOMY INCARCERATED VENTRAL/STOMAL HERNIA CHRONIC ANEMIA CHRONIC DECUBITUS ULCERS CHRONIC OBSTRUCTIVE SLEEP APNEA CORONARY ARTERY DISEASE 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 LEUKOCYTOSIS HYPERKALEMIA (NOW RESOLVED) HYPERMAGNESEMIA PROTEUS URINARY TRACT INFECTION PULMONARY FIBROSIS WITH WORSENING DYSPNEA AND HYPOXEMIA WITH CHRONIC OXYGEN THERAPY - PT ON IV ANTIBIOTICS - CONTINUE WITH CURRENT MANAGEMENT - ZOSYN, VANC AND ERAXIS - THE CT ON ADMISSION WAS NEGATIVE FOR PULMONARY EMBOLI AND THE REPEAT CT SCAN WAS NEGATIVE FOR PULMONARY EMBOLI, DID SHOW PLEURAL EFFUSIONS AND CHEST XRA Y CONTINUES TO SHOW INFILTRATE AND SMALL EFFUSIONS - CONTINUE WITH VAPOTHERM, WEAN ABLE - CONTINUE WITH ICU MANAGEMENT OF THIS PATIENT - PT HAD IMPROVED INCREMENTALLY, NOW HAS SHOWN A DECLINE. HE HAD TO BE PLACED ON HIGHER DOSE OF BIPAP TO RECOVER FROM THERAPY YESTERDAY. TODAY WHILE I WAS IN THE ROOM, HE WAS MOVING AROUND IN BED AND HAD AN EPISODE OF CRISIS WITH ABOUT A 5-10 MINUTE RECOVERY ON HIGHER OXYGEN VIA BIPAP FROM 50 TO 65% FOR A SHORT TIME, THEN BACK DOWN TO 50% OXYGEN VIA BIPAP. - I HAVE HAD AN EXTENSIVE CONVERSATION TODAY WITH ALBINA AND HIS DTR (KLEVER) ABOUT [facility]. WE WILL HAVE [place] COME TALK TO ALBINA AND HIS FAMILY AND HELP TO [facility] COMING TO THE HOSPITAL TO TALK ABOUT THEIR SERVICES. MY CONCERN IS THAT HE IS GOING TO HAVE INCREASED RISK OF DECOMPENSATION EN-ROUTE DUE TO HIS CURRENT TENUOUS STATE. PROLAPSED COLOSTOMY AND BLOOD PER COLOSTOMY WITH INCARCERATED VENTRAL/STOMAL HERNIA - DEFER TO DR. PAN - AT THIS TIME WE ARE WAITING ON ANY SURGICAL INTERVENTION DUE TO HIS PULMONARY STATUS CHRONIC ANEMIA - HGB CONTINUES TO SLOWLY IMPROVE - ONCE STABLE, WILL CONSIDER IV IRON AGAIN OUTPATIENT. CHRONIC DECUBITUS ULCERS - WOUND CARE CONSULTED CHRONIC OBSTRUCTIVE SLEEP APNEA - SEE ABOVE STATUS - ON VAPOTHERM, BREATHING TREATMENTS, ETC. CORONARY ARTERY DISEASE - DR. BARRETT CONSULTED - APPRECIATE HIS INPUT ON THIS COMPLICATED PATIENT. CAUDA EQUINA SYNDROME - AT THIS TIME - WE WILL WAIT ON ANY THERAPY - DUE TO PT'S PULMONARY DECONDITIONING AND INABILITY TO LEAVE ROOM. CHRONIC INDWELLING SUPRAPUBIC CATHETER - SUPPORTIVE CARE ONLY AT THIS TIME LEUKOCYTOSIS - MONITOR WBC'S, PT ON SOLUMEDROL 40MG IV Q6 HR - WHICH HAS CAUSED IATROGENIC WBC ELEVATION HYPERKALEMIA (NOW RESOLVED) HYPERMAGNESEMIA - MONITOR, REPLACE NEEDED PROTEUS URINARY TRACT INFECTION - ON ZOSYN OVERALL PROGNOSIS EMBROIDERY ASSISTANT IS A POOR PROGNOSIS DUE TO HIS MULTIPLE CO-MORBID CONDITIONS. I HAVE HAD A CONVERSATION WITH ALBINA IN THE OFFICE AT HIS LAST OFFICE VISIT - INSTIGATED BY ALBINA HIMSELF. HE UNDERSTANDS THAT WITH RECURRENT INFECTIONS, HIS RISK OF GREATLY INCREASES AND HE HAS HIGH RISK FOR IN THE NEXT 6-12 MONTHS. Clinical Quality Measures DVT/VTE Risk/Contraindication: Risk Factor Score Per Nursin RFS Level Per Nursing on Admit: 4+=Very High FEDE BUTLER MD Dec 04, 2018 08:41
--- NOTE | 2018-12-04 09:12 | Physical Therapy Daily Note ---
PT Daily Note-Current Subjective Patient agreed to bed level PT treatment today. Pain Numeric Pain Scale: 0-No Pain Location: No Pain Reported Mental Status Attachments: Oxygen (Currently on BiPap), Suprapubic Catheter, IV Transfers SCALE: Activities may be completed with or without assistive devices. 5-Affezhotkl-bsxxbnh completes the activity by him/herself with no assistance from a helper. 5-Set-up or Clean-up Assistance-helper sets up or cleans up; patient completes activity. [place] assists only prior to or following the activity. 4-Supervision or Touching Assistance-helper provides verbal cues and/or touching/steadying and/or contact guard assistance as patient completes activity. Assistance may be provided throughout the activity or intermittently. 3-Partial/Moderate Assistance-helper does LESS THAN HALF the effort. [place] lifts, holds or supports trunk or limbs, but provides less than half the effort. 2-Substantial/Maximal Assistance-helper does MORE THAN HALF the effort. [place] lifts or holds trunk or limbs and provides more than half the effort. 3-Rdjtttogb-xcricr does ALL the effort. Patient does none of the effort to complete the activity. Or, the assistance of 2 or more helpers is required for the patient to complete the activity. If activity was not attempted, code reason: 7-Patient Refused. 9-Not Applicable-not attempted and the patient did not perform the activity before the current illness, exacerbation or injury. 10-Not Attempted due to Environmental Limitations-(lack of equipment, weather restraints, etc.). 88-Not Attempted due to Medical Conditions or Safety Concerns. Exercises Supine Ex: Ankle pumps, Quad Set, Heel Slides, Straight leg raise, Hip abd/add Supine Reps: 10 (2 sets ) Assessment Patient tolerated treatment well. O2 maintained greater than 90% during bed level exercises. Did not attempt sitting on EOB d/t O2 stats dropping yesterday. Pt declined sitting to EOB. PT Road Mixer Operator Goals Road Mixer Operator Goals PT Road Mixer Operator Goals Time Frame: Dec 15, 2018 Sit to Lying (QC): 5 Lying-Sitting on Side/Bed(QC): 5 Sit to Stand (QC): 5 Roll Left to Right (QC): 5 Chair/Wdp-si-Mtwvu Xfer(QC): 5 Car Transfer (QC): 5 Does the Patient Walk: No and Walking Goal NOT indicated PT Plan Treatment/Plan Treatment Plan: Bed Mobility, Education, Functional Activity Razia, Functional Strength, Safety, Therapeutic Exercise, Transfers Treatment Duration: Dec 15, 2018 Frequency: 5 times per week Estimated Hrs Per Day: .25 hour per day Patient and/or Family Agrees t: Yes Time/GCodes Time In: 824 Time Out: 837 Total Billed Treatment Time: 13 Total Billed Treatment 1 visit 1 EX 13 minutes DELANO MONTGOMERY PT Dec 04, 2018 09:12
[2018-12-04] MEDS: LOSARTAN 50 MG (COZAAR) TAB PO SCH (11:06)
--- NOTE | 2018-12-04 13:25 | NUR ---
PALLIATIVE CARE RN talked with Dr. Aburto about discharge planning. This RN to see patient and talk with him and his about [facility] referral. I had briefly mentioned it to them yesterday s well as hospice. Thy really would like to get through the Holidays at the best state of health he can reach. They are interested in speaking with [facility]. I have also given them the brochures on hospice choices, suggesting that they interview them to see which on they feel more comfortable with when the time comes. Patient is having a difficult time getting better, continues to have significant desaturations with movement. Bounces from Vapotherm to BiPAP. Is reported by Criselda to be over breathing the BiPAP by 25 BPM and this is tiring him out.
--- NOTE | 2018-12-04 14:51 | Occ Therapy Progress Note ---
Therapy Progress Note Attempted OT evaluation at 1315. Pt resting in bed. Pt declined to participate at this time. Pt states he gets short of breath with activity and would like to rest at this time. States he would like to participate in therapy, but would like to wait until tomorrow. Will attempt evaluation 12/05/18. 1, visit. SIDRA GARCIA OT Dec 04, 2018 14:51
--- NOTE | 2018-12-04 14:54 | Progress Note - Cardiology ---
Cardiology SOAP Progress Note Objective: I&O/Vital Signs 12/11/18 12/11/18 12/11/18 12/11/18 00:00 00:00 01:00 02:00 Temp 35.6 Pulse 75 77 73 Resp 26 21 B/P (MAP) 151/77 (101) 149/88 (108) Pulse Ox 93 99 O2 Delivery NIV Bilevel NIV Bilevel O2 Flow Rate 55.00 55.00 12/11/18 12/11/18 12/11/18 12/11/18 02:23 04:00 05:43 06:00 Temp 35.2 Pulse 71 73 81 Resp 28 32 26 B/P (MAP) 167/83 (111) 172/82 (112) Pulse Ox 100 97 95 O2 Delivery NIV Bilevel NIV Bilevel O2 Flow Rate 55.00 55.00 55.00 12/11/18 12/11/18 12/11/18 12/11/18 06:44 07:00 08:00 09:00 Pulse 73 74 71 Resp 22 28 B/P (MAP) 148/99 (115) Pulse Ox 95 98 O2 Delivery NIV Bilevel NIV Bilevel O2 Flow Rate 55.00 55.00 FiO2 60 12/11/18 10:25 Pulse 67 Resp 20 Pulse Ox 94 O2 Flow Rate 60.00 12/11/18 00:00 Intake Total 1090 ml Output Total 2250 ml Balance -1160 ml Weight (Pounds): 245 Weight (Ounces): 6.0 Weight (Calculated Kilograms): 111.987160 Constitutional: AAO x 3, well-developed, well-nourished, other (on BiPAP) Respiratory: No accessory muscle use; other (diminishe air entry, prolonged exp phase, coarse basal and mid-zone crackles) Cardiovascular: regular rate-rhythm, S1 and S2, systolic murmur (faint PAUL at card base) Gastrointestional: No tender, No guarding, No rebound; audible bowel sounds Extremities: swelling (mod, bilat, pitting and nonpitting edema); No clubbing, No cyanosis Neurologic/Psychiatric: oriented x 3, grossly intact, power is 5/5 both on sides Skin: No rash on exposed areas, No ulcerations on exposed areas Results/Procedures: Labs Microbiology 11/24/18 Blood Culture - Final, Complete No growth 11/28/18 MRSA Screen - Final, Complete MRSA not isolated 11/24/18 Urine Culture - Final, Complete Mixed Bacterial Wendy Proteus mirabilis A/P: Assessment: Multifactorial shortness of breath and chronic resp failure: pulmonary fibrosis, pneumonia, obesity-hypoventilation, chronic diastolic CHF Prolapse of colostomy, managed by Dr. Mccullough Hypertension, difficult to control Anemia of undetermined etiology, managed by the [facility], blood transfusion during this admission Acute on chronic renal failure, monitor renal function UTI, Dr Aburto managing Echo of 11/30/18: LVEF 55-65 percent, pulmonary hypertension with RVSP 65 mmHG, mild to mod tricuspid & mitral regurgitation, aortic valve sclerosis and mod MAC w/o stenoses Coronary artery disease, history of CABG x3 done in 1999 using RODRIGEZ to LAD, vein graft to the first obtuse marginal, vein graft to the left posterolateral branch of the left circumflex artery. Cardiac catheterization was done in November 2013 showed occluded vein graft to the left circumflex artery. Patient had 2 stents in the [place] circumflex artery, 3.516 mm proximally and 3.520 mm at the midportion, distally there was 60 percent stenosis. The LAD had significant disease proximally, patient has significantly tortuous thoracic and abdominal aorta and RODRIGEZ angio was not done due to the use of large amount of contrast. The right coronary artery was a small none dominant artery was not even visualized during this study. Patient had another stent placed in the circumflex artery at [facility] in 2014 Heavily calcified thoracic and abdominal aorta. CTA done on 01/06/2014 revealed no aneurysm or occlusions or stenosis of abdominal aorta or major branches, continue to monitor Hyperglycemia, managed by Dr Aburto History of CVA Mild carotid stenosis, nonobstructive disease bilaterally COPD/obstructive sleep apnea History of prostate CA with questionable metastasis followed and managed at (according to the pt) Cauda equina syndrome, h/o surgery Plan: * BP better controlled after addition of oral hydralazine * Continue current medication regimen * Monitor labs CARLI SWAN Dec 04, 2018 14:54
--- NOTE | 2018-12-04 18:14 | Progress Note - Cardiology ---
Cardiology SOAP Progress Note Subjective: Shortness of breath still present No cp or palp or syncope Objective: I&O/Vital Signs 12/04/18 12/04/18 12/04/18 12/04/18 06:48 06:57 07:05 08:00 Pulse 70 61 Resp 31 B/P (MAP) 136/66 (89) Pulse Ox 94 100 O2 Delivery Vapotherm Vapotherm Vapotherm O2 Flow Rate 40.00 100.00 100.00 FiO2 100 12/04/18 12/04/18 12/04/18 12/04/18 08:06 09:00 10:32 10:42 Pulse 63 Resp 23 Pulse Ox 98 100 O2 Delivery NIV Bilevel NIV Bilevel NIV Bilevel O2 Flow Rate 50.00 40.00 40.00 FiO2 40 12/04/18 12/04/18 12/04/18 12/04/18 11:35 12:00 12:59 14:00 Temp 35.8 Pulse 63 65 61 Resp 16 24 B/P (MAP) 139/71 (93) 118/64 (82) Pulse Ox 98 88 O2 Delivery Vapotherm NIV Bilevel O2 Flow Rate 100.00 40.00 12/04/18 12/04/18 12/04/18 14:51 15:27 16:00 Temp 37.0 Pulse 61 63 Resp 20 23 B/P (MAP) 121/64 (83) Pulse Ox 91 94 O2 Delivery NIV Bilevel O2 Flow Rate 40.00 40.00 12/04/18 00:00 Intake Total 900 ml Output Total 1775 ml Balance -875 ml Weight (Pounds): 245 Weight (Ounces): 6.0 Weight (Calculated Kilograms): 111.942488 Constitutional: AAO x 3, well-developed, well-nourished, other (on BiPAP) Respiratory: No accessory muscle use; other (diminishe air entry, prolonged exp phase, coarse basal and mid-zone crackles) Cardiovascular: regular rate-rhythm, S1 and S2, systolic murmur (faint PAUL at c flavia base) Gastrointestional: No tender, No guarding, No rebound; audible bowel sounds Extremities: swelling (mod, bilat, pitting and nonpitting edema); No clubbing, No cyanosis Neurologic/Psychiatric: oriented x 3, grossly intact, power is 5/5 both on sides Skin: No rash on exposed areas, No ulcerations on exposed areas Results/Procedures: Labs Laboratory Tests 12/04/18 03:15: White Blood Count 12.6H, Red Blood Count 3.73L, Hemoglobin 10.0L, Hematocrit 32L , Mean Corpuscular Volume 86, Mean Corpuscular Hemoglobin 27, Mean Corpuscular Hemoglobin Concent 31L, Red Cell Distribution Width 18.1H, Platelet Count 355, Mean Platelet Volume 9.5, Neutrophils (%) (Auto) 92H, Lymphocytes (%) (Auto) 4L, Monocytes (%) (Auto) 4, Eosinophils (%) (Auto) 0, Basophils (%) (Auto) 0, Neutrophils # (Auto) 11.6H, Lymphocytes # (Auto) 0.5L, Monocytes # (Auto) 0.5, Eosinophils # (Auto) 0.0, Basophils # (Auto) 0.0, Sodium Level 135, Potassium Level 4.4, Chloride Level 96L, Carbon Dioxide Level 29, Anion Gap 10, Blood Urea Nitrogen 31H, Creatinine 0.91, Estimat Glomerular Filtration Rate > 60, BUN/Creatinine Ratio 34, Glucose Level 124H, Calcium Level 8.2L, Phosphorus Level 2.9, Magnesium Level 2.2 Microbiology 11/24/18 Blood Culture - Final, Complete No growth 11/28/18 MRSA Screen - Final, Complete MRSA not isolated 11/24/18 Urine Culture - Final, Complete Mixed Bacterial Wendy Proteus mirabilis A/P: Assessment: Multifactorial shortness of breath and chronic resp failure: pulmonary fibrosis, pneumonia, obesity-hypoventilation, chronic diastolic CHF Prolapse of colostomy, managed by Dr. Mccullough Hypertension, difficult to control Anemia of undetermined etiology[facility] during this [facility] Acute on chronic renal failure, monitor renal function UTI, Dr Aburto managing Echo of 11/30/18: LVEF 55-65 percent, pulmonary hypertension with RVSP 65 mmHG, mild to mod tricuspid & mitral regurgitation, aortic valve sclerosis and mod MAC w/o stenoses Coronary artery disease, history of CABG x3 done in 1999 using RODRIGEZ to LAD, vein graft to the first obtuse marginal, vein graft to the left posterolateral branch of the left circumflex artery. Cardiac catheterization was done in November 2013 showed occluded vein graft to the left circumflex artery. Patient had 2 stents in the [place] circumflex artery, 3.516 mm proximally and 3.520 mm at the midportion, distally there was 60 percent stenosis. The LAD had significant disease proximally, patient has significantly tortuous thoracic and abdominal aorta and RODRIGEZ angio was not done due to the use of large amount of contrast. The right coronary artery was a small none dominant artery was not even visualized during this study. Patient had another stent placed in the circumflex artery at [facility] in 2014 Heavily calcified thoracic and abdominal aorta. CTA done on 01/06/2014 revealed no aneurysm or occlusions or stenosis of abdominal aorta or major branches, continue to monitor Hyperglycemia, managed by Dr Aburto History of CVA Mild carotid stenosis, nonobstructive disease bilaterally COPD/obstructive sleep apnea History of prostate CA with questionable metastasis followed and managed at (according to the pt) Cauda equina syndrome, h/o surgery Plan: * Complex management due to multiple comorbidities * Continue current medication regimen * Monitor labs MARY MENDEZ MD FACP FAC CCDS Dec 04, 2018 18:14
[2018-12-04] MEDS: MELATONIN 3 MG TABLET PO SCH (20:02)
[2018-12-05] VITALS (16 sets, daily range): BP systolic 91–178; BP diastolic 49–82
[2018-12-05] MEDS: RT-ALBUTEROL/IPRATROPIUM 3 ML (DUONEB) VIAL INH SCH ×6 (01:33→22:00)
[2018-12-05] MEDS: RT-ALBUTEROL/IPRATROPIUM 3 ML (DUONEB) VIAL INH PRN (03:26)
[2018-12-05] MEDS: morphine INJ 10 MG/ML 1ML (SYR OR VIAL) IVP PRN (03:28)
[2018-12-05] MEDS: methylPREDNISolone 40 MG/ML (Solu-MEDROL) VIAL IV SCH ×4 (03:52→21:55)
--- NOTE | 2018-12-05 05:15 | Pulmonary Progress Note ---
Subjective Time Seen by a Provider: 08:59 Subjective/Events-last exam Pt is not showing much improvement. Sepsis Event Evaluation Height, Weight, BMI Height: 5'10.00" Weight: 245lbs. 6.0oz. 111.745860fn; 32.67 BMI Method:Stated Exam Exam Vital Signs Date Time Temp Pulse Resp B/P (MAP) Pulse Ox O2 Delivery O2 Flow Rate FiO2 12/05/18 04:00 64 14 130/69 (89) 100 NIV Bilevel 50.00 12/05/18 03:50 NIV Bilevel 50.00 12/05/18 03:26 61 23 100 40.00 12/05/18 02:55 36.9 76 24 144/49 (80) 100 NIV Bilevel 40.00 12/05/18 02:00 64 35 175/79 (111) 100 NIV Bilevel 40.00 12/05/18 01:33 61 23 100 40.00 12/05/18 01:00 61 12/05/18 00:00 61 24 142/77 (98) 100 NIV Bilevel 40.00 12/04/18 22:00 64 23 135/70 (91) 95 NIV Bilevel 40.00 12/04/18 21:38 65 29 100 40.00 12/04/18 20:30 93 NIV Bilevel 40 12/04/18 20:00 72 26 131/70 (90) 95 NIV Bilevel 40.00 12/04/18 19:50 36.1 78 18 125/63 (83) 92 NIV Bilevel 40.00 12/04/18 19:00 68 12/04/18 18:27 71 20 92 40.00 12/04/18 16:00 63 23 121/64 (83) 94 NIV Bilevel 40.00 12/04/18 15:27 37.0 12/04/18 14:51 61 20 91 40.00 12/04/18 14:00 61 24 118/64 (82) 88 NIV Bilevel 40.00 12/04/18 12:59 65 12/04/18 12:00 63 16 139/71 (93) 98 Vapotherm 100.00 12/04/18 11:35 35.8 12/04/18 10:42 NIV Bilevel 40.00 12/04/18 10:32 63 23 100 40.00 12/04/18 09:00 98 NIV Bilevel 40 12/04/18 08:06 NIV Bilevel 50.00 12/04/18 08:00 61 31 136/66 (89) 100 Vapotherm 100.00 12/04/18 07:05 Vapotherm 100.00 12/04/18 06:57 70 12/04/18 06:48 94 Vapotherm 40.00 100 12/04/18 06:00 59 156/73 (100) 99 NIV Bilevel 50.00 I & O 12/05/18 07:00 Intake Total 1507.5 ml Output Total 2000 ml Balance -492.5 ml Height & Weight Height: 5'10.00" Weight: 245lbs. 6.0oz. 111.648979uj; 32.67 BMI Method:Stated General Appearance: No Apparent Distress, Chronically ill HEENT: PERRL/EOMI Neck: Normal Inspection Respiratory: Lungs Clear, Accessory Muscle Use, Crackles, Decreased Breath Sounds, Other (on BiPAP) Cardiovascular: Regular Rate, Rhythm, No Murmur Capillary Refill: Less Than 3 Seconds Gastrointestinal: non tender, soft, other (ventral hernia incarcerated, left lower quadrant colostomy prolapsed, + stool, stomal herniation no blood) Extremity: No Calf Tenderness, No Pedal Edema Neurologic/Psychiatric: Alert, Oriented x3, Normal Mood/Affect Skin: Normal Color Lymphatic: No Adenopathy Results Lab Laboratory Tests 12/04/18 03:15 Assessment/Plan Assessment/Plan Acute on chronic respiratory failure -Vapotherm -Titrate for Sp02 90-94% - Currently on BiPAP QHS and PRN -SL IVF -CTA of chest - reviewed -CXR shows persistent bilateral extensive infiltrates. -Continue Zosyn, vanco -Await castillo cultures PNA with ARDS -Zosyn- continue for total 10days and Eraxis. -Restart Vancomycin secondary to worsening CXR infiltrates. -Continue Bumex - -Pt is DNR Grade II dyastolic dysfunction -Continue IV bumex 2mg- increase to BID - spironolactone continue daily labs Hx of pulmonary fibrosis -Monitor prolapsed colostomy with blood per colostomy and stomal herniation/ventral hernia incarcerated -Surgery following Hx of cauda equina anemia -Monitor -Hb appears to be stable. Pt is high risk for DVT/PE PT's prognosis is guarded to poor. Will continue to monitor closely. LAUREN CHIN DO Dec 05, 2018 05:15
[2018-12-05] MEDS: hydrALAZINE (APRESOLINE) 25 MG TAB PO SCH ×3 (05:45→21:55)
[2018-12-05 05:52] LABS: BASOPHILS % (AUTO) 0 % (0-10); EOSINOPHILS % (AUTO) 0 % (0-10); HEMATOCRIT 33 % (40-54); HEMOGLOBIN 10.3 G/DL (13.3-17.7); LYMPHOCYTES # (AUTO) 0.4 X 10^3 (1.0-4.0); LYMPHOCYTES % (AUTO) 3 % (12-44); MEAN CORPUSCULAR HEMOGLOBIN 27 PG (25-34); MEAN CORPUSCULAR HGB CONC 31 G/DL (32-36); MEAN CORPUSCULAR VOLUME 86 FL (80-99); MEAN PLATELET VOLUME 9.6 FL (7.4-10.4); MONOCYTES # (AUTO) 0.5 X 10^3 (0.0-1.0); MONOCYTES % (AUTO) 5 % (0-12); NEUTROPHILS # (AUTO) 10.3 X 10^3 (1.8-7.8); NEUTROPHILS % (AUTO) 92 % (42-75); PLATELET COUNT 383 10^3/uL (130-400); RED CELL DISTRIBUTION WIDTH 18.6 % (10.0-14.5); WHITE BLOOD COUNT 11.2 10^3/uL (4.3-11.0)
[2018-12-05] MEDS ORDERED: TROUGH ORDER-PHARMACY XX NR (06:00)
[2018-12-05 06:12] LABS: BUN/CREATININE RATIO 31; CALCIUM 8.9 MG/DL (8.5-10.1); CARBON DIOXIDE 32 MMOL/L (21-32); CHLORIDE 94 MMOL/L (98-107); CREATININE SERUM 1.04 MG/DL (0.60-1.30); GFR ESTIMATED > 60; GLUCOSE 138 MG/DL (70-105); MAGNESIUM 2.2 MG/DL (1.6-2.4); PHOSPHORUS 3.8 MG/DL (2.3-4.7); POTASSIUM 5.5 MMOL/L (3.6-5.0); SODIUM 137 MMOL/L (135-145)
[2018-12-05 06:18] LABS: VANCOMYCIN,TROUGH 12.5 UG/ML (10.0-20.0)
[2018-12-05] MEDS: VANCOMYCIN INJECTION 1,750 MG in NS IV 500 ML 500 ML IV SCH (06:49)
--- NOTE | 2018-12-05 07:22 | Diagnostic Imaging Report ---
INDICATION: Shortness of breath and dyspnea. Comparison made with prior examination 12/04/2018. FINDINGS: There is diffuse bilateral airspace disease. Underlying failure cannot be excluded. There has been previous median sternotomy and coronary pass graft. There is no pneumothorax. IMPRESSION: Persistent bilateral airspace disease. Underlying congestive failure cannot be excluded. Recommend clinical correlation. Dictated by: Dictated on workstation # [id number]
--- NOTE | 2018-12-05 08:05 | Progress Note ---
Subjective Date Seen by a Provider: Dec 05, 2018 Time Seen by a Provider: 08:00 Subjective/Events-last exam PT REPORTS THAT HE IS STILL QUITE FATIGUED. HE REPORTS THAT HE HAS BEEN "SUFFERING" DUE TO HIS FATIGUE WITH BREATHING. HE WAS ABLE TO HAVE QUITE A BIT OF TIME OFF OF BIPAP ON VAPOTHERM TO EAT AND DRINK LAST NIGHT AND AGAIN THIS MORNING. HE DENIES CHEST PAIN. HE DENIES ABDOMINAL PAIN AT THIS TIME. PT'S DTR REPORTS THAT NOBODY BUT ALBINA WAS IN THE HOSPITAL WHEN [facility] CAME TO TALK TO HIM. THEY ARE CONCERNED THAT DR. CHIN MENTIONED INTUBATION OF ALBINA FOR TRANSFER TO [facility]. THE FAMILY DOES NOT WANT HIM INTUBATED, NOR DOES ALBINA WANT TO BE INTUBATED. HE HAD A LOT OF QUESTIONS ABOUT HOSPICE AND [facility] HOSPITAL, AND THE POSSIBILITY OF HAVING JUST A BIT MORE TIME TO SPEND WITH HIS FAMILY. HE DOES NOT, HOWEVER, WANT TO BE IN THE SENIOR CARE FOR MONTHS BEFORE HE PASSES AWAY. HE IS WONDERING ABOUT SUPPORT AT HOME FOR HIS IF HE DOES GO TOWARD HOSPICE. Review of Systems General: Fatigue, Malaise HEENT: No Head Aches Pulmonary: Dyspnea, Cough Cardiovascular: No: Chest Pain, Palpitations Gastrointestinal: No: Nausea, Vomiting, Abdominal Pain Genitourinary: Other (SUPRAPUBIC NAPIER CATHETER) Neurological: Weakness; No: Confusion Objective Exam Last Set of Vital Signs Vital Signs Date Time Temp Pulse Resp B/P (MAP) Pulse Ox O2 Delivery O2 Flow Rate FiO2 12/05/18 07:44 67 31 100 50.00 12/05/18 06:00 152/72 (98) NIV Bilevel 12/05/18 02:55 36.9 12/04/18 20:30 40 Capillary Refill : Less Than 3 Seconds I&O Intake and Output 12/05/18 00:00 Intake Total 920 ml Output Total 2850 ml Balance -1930 ml Intake Oral 800 ml IV Total 120 ml Output Urine Total 2850 ml # Bowel Movements 3 General: Alert, Oriented X3, Cooperative, No Acute Distress HEENT: Atraumatic, PERRLA, Mucous Memb Moist/Dahlgren Lungs: Other (DECREASED IN BASES WITH CRACKLES AND DECREASED MID LUNG ON RIGHT TO BASE) Heart: Regular Rate Abdomen: Normal Bowel Sounds, Soft, No Tenderness Extremities: No Cyanosis Neuro: Cranial Nerves 3-12 NL Psych/Mental Status: Mental Status NL, Mood NL Results Lab Laboratory Tests 12/05/18 05:00: B-Type Natriuretic Peptide 328.2H 12/05/18 05:30: White Blood Count 11.2H, Red Blood Count 3.86L, Hemoglobin 10.3L, Hematocrit 33L , Mean Corpuscular Volume 86, Mean Corpuscular Hemoglobin 27, Mean Corpuscular Hemoglobin Concent 31L, Red Cell Distribution Width 18.6H, Platelet Count 383, Mean Platelet Volume 9.6, Neutrophils (%) (Auto) 92H, Lymphocytes (%) (Auto) 3L, Monocytes (%) (Auto) 5, Eosinophils (%) (Auto) 0, Basophils (%) (Auto) 0, Neutrophils # (Auto) 10.3H, Lymphocytes # (Auto) 0.4L, Monocytes # (Auto) 0.5, E osinophils # (Auto) 0.0, Basophils # (Auto) 0.0, Sodium Level 137, Potassium Level 5.5H, Chloride Level 94L, Carbon Dioxide Level 32, Anion Gap 11, Blood Urea Nitrogen 32H, Creatinine 1.04, Estimat Glomerular Filtration Rate > 60, BUN/Creatinine Ratio 31, Glucose Level 138H, Calcium Level 8.9, Phosphorus Level 3.8, Magnesium Level 2.2, Vancomycin Level Trough 12.5 Microbiology 11/24/18 Blood Culture - Final, Complete No growth 11/28/18 MRSA Screen - Final, Complete MRSA not isolated 11/24/18 Urine Culture - Final, Complete Mixed Bacterial Wendy Proteus mirabilis Assessment/Plan Assessment/Plan Assess & Plan/Chief Complaint PULMONARY FIBROSIS WITH WORSENING DYSPNEA AND HYPOXEMIA WITH CHRONIC OXYGEN T HERAPY PROLAPSED COLOSTOMY BLOOD PER COLOSTOMY INCARCERATED VENTRAL/STOMAL HERNIA CHRONIC ANEMIA CHRONIC DECUBITUS ULCERS CHRONIC OBSTRUCTIVE SLEEP APNEA CORONARY ARTERY DISEASE 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 LEUKOCYTOSIS HYPERKALEMIA (NOW RESOLVED) HYPERMAGNESEMIA PROTEUS URINARY TRACT INFECTION PULMONARY FIBROSIS WITH WORSENING DYSPNEA AND HYPOXEMIA WITH CHRONIC OXYGEN THERAPY - PT ON IV ANTIBIOTICS - CONTINUE WITH CURRENT MANAGEMENT - ZOSYN, VANC AND ERAXIS - THE CT ON ADMISSION WAS NEGATIVE FOR PULMONARY EMBOLI AND THE REPEAT CT SCAN WAS NEGATIVE FOR PULMONARY EMBOLI, DID SHOW PLEURAL EFFUSIONS AND CHEST XRAY CONTINUES TO SHOW INFILTRATE AND SMALL EFFUSIONS - CONTINUE WITH VAPOTHERM, WEAN ABLE - CONTINUE WITH ICU MANAGEMENT OF THIS PATIENT - PT HAD IMPROVED INCREMENTALLY, NOW HAS SHOWN A DECLINE. HE HAD TO BE PLACED ON HIGHER DOSE OF BIPAP TO RECOVER FROM THERAPY YESTERDAY. TODAY WHILE I WAS IN THE ROOM, HE WAS MOVING AROUND IN BED AND HAD AN EPISODE OF CRISIS WITH ABOUT A 5-10 MINUTE RECOVERY ON HIGHER OXYGEN VIA BIPAP FROM 50 TO 65% FOR A SHORT TIME, THEN BACK DOWN TO 50% OXYGEN VIA BIPAP. - I HAVE HAD AN EXTENSIVE CONVERSATION YESTERDAY WITH ALBINA AND HIS DTR (KLEVER) ABOUT [facility]. [facility] CAME AND TALKED TO ALBINA ABOUT HIS STATUS, UNFORTUNATELY NOBODY ELSE WAS IN THE ROOM WHEN [facility] CAME IN TO TALK TO ALIBNA. I HAVE AGAIN ASKED [facility] TO CALL [facility] TO TALK TO HIM, THE PLAN WILL BE TO HAVE THEM COME ON MONDAY TO TALK WHEN HIS SON AND DAUGHTER ARE AVAILABLE. i WOULD BE HOPEFUL THAT ALBINA MAY BE IMPROVED ENOUGH TO BE STABLE FOR TRANSFER ON BIPAP TO [facility] ON MONDAY OR MONDAY OF NEXT WEEK. RIGHT NOW, MY CONCERN IS THAT HE IS GOING TO HAVE INCREASED RISK OF DECOMPENSATION EN-ROUTE DUE TO HIS CURRENT TENUOUS STATE - IF WE CAN IMPROVE HIM A LITTLE MORE, WE SHOULD HAVE A SUCCESSFUL TRANSFER. PROLAPSED COLOSTOMY AND BLOOD PER COLOSTOMY WITH INCARCERATED VENTRAL/STOMAL HERNIA - DEFER TO DR. PAN - AT THIS TIME WE ARE WAITING ON ANY SURGICAL INTERVENTION DUE TO HIS PULMONARY STATUS CHRONIC ANEMIA - HGB CONTINUES TO SLOWLY IMPROVE - ONCE STABLE, WILL CONSIDER IV IRON AGAIN OUTPATIENT. CHRONIC DECUBITUS ULCERS - WOUND CARE CONSULTED CHRONIC OBSTRUCTIVE SLEEP APNEA - SEE ABOVE STATUS - ON BIPAP BREATHING TREATMENTS, ETC. CORONARY ARTERY DISEASE - DR. BARRETT CONSULTED - APPRECIATE HIS INPUT ON THIS COMPLICATED PATIENT. CAUDA EQUINA SYNDROME - AT THIS TIME - WE WILL CONTINUE WITH PHYSICAL THERAPY IN BED ONLY - DUE TO PT'S PULMONARY DECONDITIONING AND INABILITY TO LEAVE ROOM. 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 I HAVE HAD A CONVERSATION WITH ALBINA IN THE OFFICE AT HIS LAST OFFICE VISIT - INSTIGATED BY ALBINA HIMSELF. HE UNDERSTANDS THAT WITH RECURRENT INFECTIONS, HIS RISK OF GREATLY INCREASES AND HE HAS HIGH RISK FOR IN THE NEXT 6-12 MONTHS. Clinical Quality Measures DVT/VTE Risk/Contraindication: Risk Factor Score Per Nursin RFS Level Per Nursing on Admit: 4+=Very High FEDE BUTLER MD Dec 05, 2018 08:05
--- NOTE | 2018-12-05 08:25 | NUR ---
Palliative Care RN to room to talk to patient. Discussed visit from [place] yesterday.. where Oral visited with patient and his . No children present due to not wanting to ''bother them". Dr. Aburto says esequiel solis not ready . Will try for another meeting with , daughter and son from on Monday. Possible transition on Monday next week.
[2018-12-05] MEDS: CLOPIDOGREL 75 MG (PLAVIX) TABLET PO SCH (08:55)
[2018-12-05] MEDS: amLODIPine 10 MG (NORVASC) TAB PO SCH (08:55)
[2018-12-05] MEDS: GABAPENTIN 600 MG (NEURONTIN) TAB PO SCH ×2 (08:55→21:55)
[2018-12-05] MEDS: DULoxetine 30 MG (CYMBALTA) CAP PO SCH (08:55)
[2018-12-05] MEDS: VITAMIN D3 400 UNITS (CHOLECALCIFEROL) TABLET PO SCH ×2 (08:55→21:55)
[2018-12-05] MEDS: SPIRONOLACTONE 100 MG (ALDACTONE) TABLET PO SCH (08:55)
[2018-12-05] MEDS: PANTOPRAZOLE 40 MG (PROTONIX) TAB PO SCH (08:55)
[2018-12-05] MEDS: CARVEDILOL 12.5 MG (COREG) TABLET PO SCH ×2 (08:55→21:55)
[2018-12-05] MEDS: cloNIDine 0.2 MG (CATAPRES) TAB PO SCH ×2 (08:55→21:55)
[2018-12-05] MEDS: POLYETHYLENE GLYCOL 17 GM (MIRALAX) PACK PO SCH (08:55)
[2018-12-05] MEDS: ENOXAPARIN 40 MG/0.4 ML (LOVENOX) SYR SC SCH (08:55)
[2018-12-05] MEDS: BUMETANIDE 2.5 MG/10 ML (BUMEX) VIAL IV SCH ×2 (08:56→21:55)
[2018-12-05] MEDS: MULTIVIT W/MINERALS TAB (THERAGRAN M) PO SCH (08:56)
[2018-12-05] MEDS: ANIDULAFUNGIN INJECTION 100 MG in NS (IVPB) 100 ML IV SCH (09:16)
--- NOTE | 2018-12-05 10:54 | Occupational Therapy Eval ---
OT Evaluation-General/PLF Medical Diagnosis Admission Date Nov 25, 2018 at 12:26 Medical Diagnosis: pulmonary fibrosis/RACQUEL/hypoxia Onset Date: Nov 25, 2018 Therapy Diagnosis Therapy Diagnosis: impaired self care skills, weakness Height/Weight Height (Feet): 5 Height (Inches): 10.00 Weight (Pounds): 245 Weight (Ounces): 6.0 Precautions Precautions/Isolations: Fall Prevention, Standard Precautions Safety Interventions: None Referral Physician: Pamela Medical History Pertinent Medical History: CABG, CAD, CVA, GERD, HTN Additional Medical History chronic anemia, cauda equina syndrome, suprapubic catheter, sleep apnea, hiatal hernia, DDD, arthritis, prostate cancer, anxiety, depression Social History Home: Single Level Current Living Status: Spouse Entry Into Home: [facility] ADL-Prior Level of Function SCALE: Activities may be completed with or without assistive devices. 4-Oupnnievgu-kmitdxb completes the activity by him/herself with no assistance from a helper. 5-Set-up or Clean-up Assistance-helper sets up or cleans up; patient completes activity. [place] assists only prior to or following the activity. 4-Supervision or Touching Assistance-helper provides verbal cues and/or touching/steadying and/or contact guard assistance as patient completes activity. Assistance may be provided throughout the activity or intermittently. 3-Partial/Moderate Assistance-helper does LESS THAN HALF the effort. [place] lifts, holds or supports trunk or limbs, but provides less than half the effort. 2-Substantial/Maximal Assistance-helper does MORE THAN HALF the effort. [place] lifts or holds trunk or limbs and provides more than half the effort. 7-Awwzuwrxe-ckqpag does ALL the effort. Patient does none of the effort to complete the activity. Or, the assistance of 2 or more helpers is required for the patient to complete the activity. If activity was not attempted, code reason: 7-Patient Refused. 9-Not Applicable-not attempted and the patient did not perform the activity before the current illness, exacerbation or injury. 10-Not Attempted due to Environmental Limitations-(lack of equipment, weather restraints, etc.). 88-Not Attempted due to Medical Conditions or Safety Concerns. ADL PLOF Comments Pt reports living at home with spouse and receiving assist as needed with ADL tasks. Uses w/c for mobility Self Care: Needed Some Help DME/Equipment: Bath Bench, Grab Bars, Shower DME/Equipment Comments power w/c OT Current Status Subjective RN states pt okay for bed level therapy at this time. Pt in bed, agrees to treatment. Pt reports "very minimal" pain. Mental Status/Objective Patient Orientation: Person, Place Attachments: IV, Oxygen (bi-pap) Current Hand Dominance: Right Upper Extremity ROM Grossly WFL Upper Extremity Coordination Fair Upper Extremity Sensation Pt reports "minimal" numbness in hands at baseline. ADL-Treatment ADL-Current Pt participated in bed level evaluation. UE assessment completed. Pt fatigues quickly with activity. Pt on Bi-pap at this time. Unable to complete full ADL evaluation at this time. Pt reports feeding himself breakfast, but some difficulty managing utensils. Pt was issued red cylindrical foam to build up eating utensils. Will further assess ADLs and progress activity as pt able to tolerate and participate. Education provided regarding role of OT and plan of care. Pt states understanding of education and is in agreement with plan. Pt resting in bed with needs met, spouse and RN present after session. Education OT Patient Education: Rehab process Teaching Recipient: Patient Teaching Methods: Discussion Response to Teaching: Verbalize Understanding OT Short Term Goals Short Term Goals 1=Demonstrate adherence to instructed precautions during ADL tasks. 2=Patient will verbalize/demonstrate understanding of assistive devices/modifications for ADL. 3=Patient will improve strength/tolerance for activity to enable patient to perform ADL's. OT It Technical Support Specialist Goals [facility] Goals Time Frame: Dec 19, 2018 Eating (QC): 6 Oral Hygiene (QC): 5 Additional Goals: 1-Demonstrate ADL Tasks, 3-ImproveStrength/Razia 1=Demonstrate adherence to instructed precautions during ADL tasks. 2=Patient will verbalize/demonstrate understanding of assistive nyla ailyn/modifications for ADL. 3=Patient will improve strength/tolerance for activity to enable patient to perform ADL's. OT Education/Plan Problem List/Assessment Assessment: Decreased Activ Tolerance, Decreased UE Strength, Dependent Transfers, Impaired I ADL's, Impaired Self-Care Skills Pt demonstrates impaired ADL functioning, mobility, strength, and activity tolerance. Pt to benefit from skilled OT intervention for ADL training and strengthening to maximize level of function and allow safe discharge plan. Discharge Recommendations Plan/Recommendations: Continue POC Treatment Plan/Plan of Care Treatment,Training & Education: Yes Patient would benefit from OT for education, treatment and training to promote independence in ADL's, mobility, safety and/or upper extremity function for ADL's. Plan of Care: ADL Retraining, Functional Mobility, UE Funct Exercise/Act Treatment Duration: Dec 19, 2018 Frequency: 5 times per week Estimated Hrs Per Day: .25 hour per day Rehab Potential: Guarded Time/GCodes Start Time: 10:22 Stop Time: 10:35 Total Time Billed (hr/min): 13 Billed Treatment Time 1 visit, ANUJ(13minutes) SIDRA GARCIA OT Dec 05, 2018 10:54
--- NOTE | 2018-12-05 10:54 | Physical Therapy Daily Note ---
PT Daily Note-Current Subjective Pt in bed pre-tx. Pt agrees to PT today. Pt is having mod LBP today but states it is normal. Pt's spouse and DTR present at this time. Vitals pre-tx HR 63bpm, BP 143/71. RR 19. O2 sats 100% Appearance Pt in bed and comfortable post-tx. Pt with nurse call light, room phone, and tray table in reach. Pts post-tx vitals HR 65bpm. RR 26. O2 sats 100%. Mental Status Patient Orientation: Person, Place, Time, Situation Attachments: SCD's, Colostomy/Ileostomy, Oxygen (Bipap with vapotherm in place.), Suprapubic Catheter, Barrios Catheter, IV Transfers SCALE: Activities may be completed with or without assistive devices. 8-Vpvohlelzl-pjwpxrd completes the activity by him/herself with no assistance from a helper. 5-Set-up or Clean-up Assistance-helper sets up or cleans up; patient completes activity. [place] assists only prior to or following the activity. 4-Supervision or Touching Assistance-helper provides verbal cues and/or touching/steadying and/or contact guard assistance as patient completes activity. Assistance may be provided throughout the activity or intermittently. 3-Partial/Moderate Assistance-helper does LESS THAN HALF the effort. [place] lifts, holds or supports trunk or limbs, but provides less than half the effort. 2-Substantial/Maximal Assistance-helper does MORE THAN HALF the effort. [place] lifts or holds trunk or limbs and provides more than half the effort. 4-Mwhildxxt-hybiyf does ALL the effort. Patient does none of the effort to complete the activity. Or, the assistance of 2 or more helpers is required for the patient to complete the activity. If activity was not attempted, code reason: 7-Patient Refused. 9-Not Applicable-not attempted and the patient did not perform the activity before the current illness, exacerbation or injury. 10-Not Attempted due to Environmental Limitations-(lack of equipment, weather restraints, etc.). 88-Not Attempted due to Medical Conditions or Safety Concerns. Exercises Supine Ex: Ankle pumps, Quad Set, Heel Slides, Short Arc Quads, Straight leg raise, Hip abd/add Supine Reps: 20 (2sets of 10) Treatments LE exercise Assessment Current Status: Fair Progress Pt's O2 sats remained above 96% throughout session. 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 Goals Time Frame: Dec 15, 2018 Sit to Lying (QC): 5 Lying-Sitting on Side/Bed(QC): 5 Sit to Stand (QC): 5 Roll Left to Right (QC): 5 Chair/Uqg-xv-Jgdfe Xfer(QC): 5 Car Transfer (QC): 5 Does the Patient Walk: No and Walking Goal NOT indicated PT Plan Problem List Problem List: Activity Tolerance, Functional Strength, Safety, Balance, Gait, Transfer, Bed Mobility, ROM Treatment/Plan Treatment Plan: Continue Plan of Care Treatment Plan: Bed Mobility, Education, Functional Activity Razia, Functional Strength, Safety, Therapeutic Exercise, Transfers Treatment Duration: Dec 15, 2018 Frequency: 5 times per week Estimated Hrs Per Day: .25 hour per day Patient and/or Family Agrees t: Yes Safety Risks/Education Patient Education: Correct Positioning Teaching Recipient: Patient Teaching Methods: Demonstration, Discussion Response to Teaching: Verbalize Understanding, Reinforcement Needed Time/GCodes Time In: 0931 Time Out: 0949 Total Billed Treatment Time: 18 Total Billed Treatment 1 visit 18' Ex AKIN CANTU PT Dec 05, 2018 10:54
--- NOTE | 2018-12-05 11:48 | NUR ---
RD FOLLOW-UP PMHx: CAD, HTN, hypercholesterolemia, GERD, stroke, diverticulosis PT INTERACTION: Pt was awake and pleasant during follow-up. Pt states current appetite is good and he has been eating well. Note 100% meals consumed x2d. Pt states no issues with n/v in the past week. Pt states some issues with constipation. Note pt has stage 2 pressure ulcer (unknown location). ABNORMAL NUTRITION-RELATED LAB VALUES: Hgb 10.4 (L); Hct 33 (L); Cl 94 (L); K 5.5 (H); BUN 32 (H); glu 139 (H) Est. kcal needs: 6322-0055 kcal (20-25 kcal/kg) Est. Pro needs: 80-100 g Pro (0.8-1.0 g Pro/kg) PES STATEMENT: Inadequate oral intake (NI-2.1) related to increased energy needs as evidenced by wound. INTERVENTION: Continue with current diet order of CHO 75g/m 0snack diet. Encouraged pt to eat when able. MONITOR/EVALUATE: PO Intake; Plan of Care; Hydration Status; Weight Status; Lab Values Claudia Ibarra, MS, RD, LD Ext. [phone]
[2018-12-05] MEDS: LOSARTAN 50 MG (COZAAR) TAB PO SCH (11:57)
--- NOTE | 2018-12-05 13:25 | NUR ---
DR CHIN CALLED NEW ORDERS RECEIVED.
--- NOTE | 2018-12-05 13:25 | Cardiology Progress Note ---
Subjective Date Seen by Provider: Dec 05, 2018 Time Seen by Provider: 13:22 Subjective/Events-last exam patient is laying down in bed, using Vapotherm, breathing better but still having significant dyspnea. Review of Systems General: No Chills, No Night Sweats; Fatigue, Malaise; No Appetite, No Other HEENT: No Head Aches, No Visual Changes, No Eye Pain, No Ear Pain, No Dysphasia, No Sinus Congestion, No Post Nasal Drip, No Sore Throat, No Other Pulmonary: Dyspnea; No Cough, No Pleuritic Chest Pain, No Other Cardiovascular: No: Chest Pain, Palpitations, Orthopnea, Paroxysmal Noc. Dyspnea, Edema, Lt Headedness, Other Objective-Cardiology Exam Last Set of Vital Signs Vital Signs 12/05/18 12/05/18 12/05/18 09:00 12:00 12:32 Temp 36.2 Pulse 70 Resp 22 B/P (MAP) 160/67 (98) Pulse Ox 93 O2 Delivery NIV Bilevel O2 Flow Rate 50.00 FiO2 40 Capillary Refill : Less Than 3 Seconds I&O Intake and Output 12/05/18 00:00 Intake Total 920 ml Output Total 2850 ml Balance -1930 ml Intake Oral 800 ml IV Total 120 ml Output Urine Total 2850 ml # Bowel Movements 3 General: Alert, Oriented X3, Cooperative, Mild Distress HEENT: Atraumatic, PERRLA, Mucous Memb Moist/H. Rivera Colon Neck: Supple Lungs: Other (DECREASED IN BASES WITH CRACKLES AND DECREASED MID LUNG ON RIGHT TO BASE) Heart: Regular Rate, Normal S1, Normal S2 Abdomen: Normal Bowel Sounds, Soft, No Tenderness Extremities: No Cyanosis Skin: No Breakdown Neuro: Cranial Nerves 3-12 NL Psych/Mental Status: Mental Status NL, Mood NL Results Lab Laboratory Tests 12/05/18 05:30 A/P-Cardiology Admission Diagnosis Prolapsed colostomy bag Malignant hypertension COPD Coronary artery disease Assessment/Plan Shortness of breath, respiratory failure multifactorial, currently on BiPAP alternating with Vapotherm, managed by Dr. Hutton, questionable transfer to long-term facility Prolapsed of colostomy, constipation, reporting improvement in his constipation. Managed by Dr. Mccullough Hypertension, continue current medication monitor blood pressure Anemia, continue to monitor H&H Acute on chronic renal failure, monitor renal function Elevated BNP, echocardiogram done in September 2018 showing normal left ventricular size with ejection fraction 55-65 percent, grade 2 diastolic dysfunction, mild mitral regurgitation, aortic valve sclerosis, pulmonary hypertension with PA p ressure of 50 mmHg. Hypertensive heart disease. Continue to monitor Coronary artery disease, history of CABG x3 done in 1999 using RODRIGEZ to LAD, vein graft to the first obtuse marginal, vein graft to the left posterolateral branch of the left circumflex artery. Cardiac catheterization was done in November 2013 showing occluded vein graft to the left circumflex artery. Patient had 2 stents in the [place] circumflex artery using 3.516 mm proximally and 3.520 mm at the midportion Promus Premier stents, distally there was 60 percent stenosis which will be monitored. The LAD has significant disease proximally, patient has significantly tortuous thoracic and abdominal aorta. Deferred the the evaluation of the RODRIGEZ due to the use of large amount of contrast. The right coronary artery is a small none dominant artery was not even visualized during this study. Patient had another stent placed in the circumflex artery in [facility] in 2014, no recent workup for follow-up was done. continue to monitor at this time Heavily calcified thoracic and abdominal aorta. CTA done on 01/06/2014 revealed no aneurysm or occlusions or stenosis of abdominal aorta or major branches, con tinue to monitor Hyperlipidemia, continue to monitor. History of CVA. Continue to monitor. Mild carotid stenosis, nonobstructive disease bilaterally, has been followed in [facility], requesting to transfer is service back to my office. I will evaluate carotid ultrasound as an outpatient COPD/obstructive sleep apnea, Continue to monitor. History of prostate CA with questionable metastasis, patient expressed that it has been followed and managed at . He reported that it was slow growing and the recommendation was conservative management. Cauda equina syndrome, underwent surgery, patient expressed that he did not have full recovery Clinical Quality Measures DVT/VTE Risk/Contraindication: Risk Factor Score Per Nursin RFS Level Per Nursing on Admit: 4+=Very High KIMBERLI BARRETT MD Dec 05, 2018 13:25
[2018-12-05] MEDS ORDERED: SOD POLYSTERENE 15 GM/60 ML (KAYEXALATE) UNIT DOSE PO NR (13:30)
[2018-12-05 17:56] LABS: BUN/CREATININE RATIO 37; CALCIUM 8.6 MG/DL (8.5-10.1); CARBON DIOXIDE 26 MMOL/L (21-32); CHLORIDE 95 MMOL/L (98-107); CREATININE SERUM 1.01 MG/DL (0.60-1.30); GFR ESTIMATED > 60; GLUCOSE 199 MG/DL (70-105); MAGNESIUM 2.1 MG/DL (1.6-2.4); PHOSPHORUS 3.5 MG/DL (2.3-4.7); POTASSIUM 4.3 MMOL/L (3.6-5.0); SODIUM 132 MMOL/L (135-145)
[2018-12-05] MEDS: MELATONIN 3 MG TABLET PO SCH (21:55)
[2018-12-05] MEDS: ASPIRIN E.C. 81 MG (ECOTRIN) TAB PO SCH (21:55)
[2018-12-06] VITALS (17 sets, daily range): BP systolic 137–182; BP diastolic 72–105
[2018-12-06] MEDS: hydrALAZINE (APESOLINE) 20 MG/ML VIAL IV PRN (00:44)
[2018-12-06] MEDS: RT-ALBUTEROL/IPRATROPIUM 3 ML (DUONEB) VIAL INH SCH ×6 (02:05→21:52)
[2018-12-06] MEDS: methylPREDNISolone 40 MG/ML (Solu-MEDROL) VIAL IV SCH ×4 (03:27→21:03)
[2018-12-06] MEDS: morphine INJ 10 MG/ML 1ML (SYR OR VIAL) IVP PRN ×4 (03:28→14:01)
[2018-12-06 03:46] LABS: BASOPHILS % (AUTO) 0 % (0-10); EOSINOPHILS % (AUTO) 0 % (0-10); HEMATOCRIT 33 % (40-54); HEMOGLOBIN 10.4 G/DL (13.3-17.7); LYMPHOCYTES # (AUTO) 0.6 X 10^3 (1.0-4.0); LYMPHOCYTES % (AUTO) 5 % (12-44); MEAN CORPUSCULAR HEMOGLOBIN 27 PG (25-34); MEAN CORPUSCULAR HGB CONC 31 G/DL (32-36); MEAN CORPUSCULAR VOLUME 86 FL (80-99); MEAN PLATELET VOLUME 10.1 FL (7.4-10.4); MONOCYTES # (AUTO) 0.6 X 10^3 (0.0-1.0); MONOCYTES % (AUTO) 4 % (0-12); NEUTROPHILS # (AUTO) 11.4 X 10^3 (1.8-7.8); NEUTROPHILS % (AUTO) 91 % (42-75); PLATELET COUNT 374 10^3/uL (130-400); RED CELL DISTRIBUTION WIDTH 18.6 % (10.0-14.5); WHITE BLOOD COUNT 12.5 10^3/uL (4.3-11.0)
[2018-12-06 04:08] LABS: BUN/CREATININE RATIO 35; CALCIUM 8.6 MG/DL (8.5-10.1); CARBON DIOXIDE 31 MMOL/L (21-32); CHLORIDE 93 MMOL/L (98-107); CREATININE SERUM 0.98 MG/DL (0.60-1.30); GFR ESTIMATED > 60; GLUCOSE 148 MG/DL (70-105); MAGNESIUM 2.2 MG/DL (1.6-2.4); POTASSIUM 4.9 MMOL/L (3.6-5.0); SODIUM 137 MMOL/L (135-145)
[2018-12-06 04:12] LABS: EOSINOPHILS % (MANUAL) 2 %; LYMPHOCYTES % (MANUAL) 2 %; MONOCYTES % (MANUAL) 6 %; NEUTROPHILS % (MANUAL) 90 %
[2018-12-06 04:13] LABS: ANISOCYTOSIS SLIGHT; HYPOCHROMASIA SLIGHT; MICROCYTOSIS SLIGHT; POIKILOCYTOSIS SLIGHT; SPHEROCYTES SLIGHT
--- NOTE | 2018-12-06 04:40 | Pulmonary Progress Note ---
Subjective Time Seen by a Provider: 04:40 Subjective/Events-last exam Currently on BiPAP. Sepsis Event Evaluation Height, Weight, BMI Height: 5'10.00" Weight: 245lbs. 6.0oz. 111.343477kr; 32.67 BMI Method:Stated Exam Exam Vital Signs Date Time Temp Pulse Resp B/P (MAP) Pulse Ox O2 Delivery O2 Flow Rate FiO2 12/06/18 03:41 36.4 NIV Bilevel 40.00 12/06/18 02:05 68 30 100 40.00 12/06/18 00:56 72 12/06/18 00:00 70 26 173/82 (112) 100 NIV Bilevel 50.00 12/05/18 22:35 36.4 NIV Bilevel 45.00 12/05/18 22:00 74 20 158/82 (107) 96 NIV Bilevel 50.00 12/05/18 22:00 81 26 93 40.00 12/05/18 21:00 93 NIV Bilevel 45 12/05/18 20:00 36.4 NIV Bilevel 45.00 12/05/18 20:00 81 23 178/77 (110) 91 NIV Bilevel 50.00 12/05/18 19:01 78 12/05/18 18:15 79 28 100 40.00 12/05/18 16:00 36.8 12/05/18 16:00 68 133/64 (87) 94 NIV Bilevel 50.00 12/05/18 15:30 74 22 40.00 12/05/18 12:32 70 12/05/18 12:00 68 160/67 (98) 93 NIV Bilevel 50.00 12/05/18 12:00 36.2 22 12/05/18 10:13 66 21 40.00 12/05/18 09:00 93 NIV Bilevel 40 12/05/18 08:00 68 24 91/65 (74) 100 NIV Bilevel 50.00 12/05/18 07:44 67 31 100 50.00 12/05/18 07:00 80 12/05/18 06:26 67 25 50.00 12/05/18 06:00 73 29 152/72 (98) 100 NIV Bilevel 50.00 I & O 12/06/18 07:00 Intake Total 1205 ml Output Total 1300 ml Balance -95 ml Height & Weight Height: 5'10.00" Weight: 245lbs. 6.0oz. 111.358502pm; 32.67 BMI Method:Stated General Appearance: Chronically ill, Moderate Distress, Obese HEENT: PERRL/EOMI Neck: Normal Inspection Respiratory: Lungs Clear, Accessory Muscle Use, Crackles, Decreased Breath Sounds, Other (on BiPAP) Cardiovascular: Regular Rate, Rhythm, No Murmur Capillary Refill: Less Than 3 Seconds Gastrointestinal: non tender, soft, other (ventral hernia incarcerated, left lower quadrant colostomy prolapsed, + stool, stomal herniation no blood) Extremity: No Calf Tenderness, No Pedal Edema Neurologic/Psychiatric: Alert, Oriented x3, Normal Mood/Affect Skin: Normal Color Lymphatic: No Adenopathy Results Lab Laboratory Tests 12/05/18 05:30 12/05/18 17:18 12/06/18 03:05 Assessment/Plan Assessment/Plan Acute on chronic respiratory failure -Vapotherm -Titrate for Sp02 90-94% - Currently on BiPAP QHS and PRN -SL IVF -CTA of chest - reviewed -CXR shows persistent bilateral extensive infiltrates. -Continue Zosyn, vanco -Await castillo cultures PNA with ARDS -Zosyn- continue for total 10days and Eraxis. -Restart Vancomycin secondary to worsening CXR infiltrates. -Continue Bumex - -Pt is DNR Grade II dyastolic dysfunction -Continue IV bumex 2mg- increase to BID Hx of pulmonary fibrosis -Monitor prolapsed colostomy with blood per colostomy and stomal herniation/ventral hernia incarcerated -Surgery following Hx of cauda equina anemia -Monitor -Hb appears to be stable. Pt is high risk for DVT/PE PT's prognosis is guarded to poor. Will continue to monitor closely. LAUREN CHIN DO Dec 06, 2018 04:40
[2018-12-06] MEDS: hydrALAZINE (APRESOLINE) 25 MG TAB PO SCH ×3 (05:10→21:04)
--- NOTE | 2018-12-06 05:15 | NUR ---
Pt panicking, difficulty breathing, pt trialed on vapotherm, 40L, 100%, pt unable to tolerate, bipap changed, pain medication given per pt request for anxiety/air hunger, pt respirations calmed down, pt's VS improving, dr Hutton notified, no further orders at this time
[2018-12-06] MEDS: VANCOMYCIN INJECTION 1,750 MG in NS IV 500 ML 500 ML IV SCH (06:03)
--- NOTE | 2018-12-06 07:43 | Diagnostic Imaging Report ---
Indication: Shortness of breath Portable chest 3:26 AM There are postoperative changes from CABG surgery. There is cardiomegaly. There are alveolar infiltrates in both lungs in the perihilar regions and at the bases. These are unchanged in density or distribution since the previous study. IMPRESSION: Severe bilateral pulmonary infiltrates are not appreciably changed from the previous day. Dictated by: Dictated on workstation # [id number]
--- NOTE | 2018-12-06 07:48 | Cardiology Progress Note ---
Subjective Date Seen by Provider: Dec 06, 2018 Time Seen by Provider: 07:46 Subjective/Events-last exam Patient is laying down in bed, on BiPAP, still having shortness of breath Review of Systems General: No Chills, No Night Sweats; Fatigue, Malaise; No Appetite, No Other HEENT: No Head Aches, No Visual Changes, No Eye Pain, No Ear Pain, No Dysphasia, No Sinus Congestion, No Post Nasal Drip, No Sore Throat, No Other Pulmonary: Dyspnea; No Cough, No Pleuritic Chest Pain, No Other Cardiovascular: No: Chest Pain, Palpitations, Orthopnea, Paroxysmal Noc. Dyspnea, Edema, Lt Headedness, Other Objective-Cardiology Exam Last Set of Vital Signs Vital Signs 12/06/18 12/06/18 12/06/18 12/06/18 12/06/18 03:41 05:00 06:00 06:15 06:54 Temp 36.4 Pulse 68 Resp 29 B/P (MAP) 148/72 (97) Pulse Ox 100 O2 Delivery NIV Bilevel O2 Flow Rate 55.00 FiO2 50 Capillary Refill : Less Than 3 Seconds I&O Intake and Output 12/06/18 00:00 Intake Total 2312.5 ml Output Total 2650 ml Balance -337.5 ml Intake Oral 655 ml IV Total 1657.5 ml Output Urine Total 2525 ml Stool Total 125 ml # Bowel Movements 1 General: Alert, Oriented X3, Cooperative, Mild Distress HEENT: Atraumatic, PERRLA, Mucous Memb Moist/[place] Neck: Supple Lungs: Other (DECREASED IN BASES WITH CRACKLES AND DECREASED MID LUNG ON RIGHT TO BASE) Heart: Regular Rate, Normal S1, Normal S2 Abdomen: Normal Bowel Sounds, Soft, No Tenderness Extremities: No Cyanosis Skin: No Breakdown Neuro: Cranial Nerves 3-12 NL Psych/Mental Status: Mental Status NL, Mood NL Results Lab Laboratory Tests 12/05/18 17:18 12/06/18 03:05 A/P-Cardiology Admission Diagnosis Prolapsed colostomy bag Malignant hypertension COPD Coronary artery disease Assessment/Plan Shortness of breath, respiratory failure multifactorial, currently on BiPAP alternating with Vapotherm, managed by Dr. Hutton, questionable transfer to long-term facility Pneumonia with ARDS, receiving antibiotics, managed by Dr. Hutton Prolapsed of colostomy, constipation, reporting improvement in his constipation. Managed by Dr. Mccullough Hypertension, continue current medication monitor blood pressure Anemia, continue to monitor H&H Acute on chronic renal failure, monitor renal function Elevated BNP, echocardiogram done in September 2018 showing normal left ventricular size with ejection fraction 55-65 percent, grade 2 diastolic dysfunction, mild mitral regurgitation, aortic valve sclerosis, pulmonary hypertension with PA pressure of 50 mmHg. Hypertensive heart disease. Continue to monitor Coronary artery disease, history of CABG x3 done in 1999 using RODRIGEZ to LAD, vein graft to the first obtuse marginal, vein graft to the left posterolateral branch of the left circumflex artery. Cardiac catheterization was done in November 2013 showing occluded vein graft to the left circumflex artery. Patient had 2 stents in the [place] circumflex artery using 3.516 mm proximally and 3.520 mm at the midportion Promus Premier stents, distally there was 60 percent stenosis which will be monitored. The LAD has significant disease proximally, patient has significantly tortuous thoracic and abdominal aorta. Deferred the the evaluation of the RODRIGEZ due to the use of large amount of contrast. The right coronary artery is a small none dominant artery was not even visualized during this study. Patient had another stent placed in the circumflex artery in [facility] in 2014, no recent workup for follow-up was done. continue to monitor at this time Heavily calcified thoracic and abdominal aorta. CTA done on 01/06/2014 revealed no aneurysm or occlusions or stenosis of abdominal aorta or major branches, continue to monitor Hyperlipidemia, continue to monitor. History of CVA. Continue to monitor. Mild carotid stenosis, nonobstructive disease bilaterally, has been followed in [facility], requesting to transfer is service back to my office. I will evaluate carotid ultrasound as an outpatient COPD/obstructive sleep apnea, Continue to monitor. History of prostate CA with questionable metastasis, patient expressed that it has been followed and managed at . He reported that it was slow growing and the recommendation was conservative management. Cauda equina syndrome, underwent surgery, patient expressed that he did not have full recovery Clinical Quality Measures DVT/VTE Risk/Contraindication: Risk Factor Score Per Nursin RFS Level Per Nursing on Admit: 4+=Very High KIMBERLI BARRETT MD Dec 06, 2018 07:48
--- NOTE | 2018-12-06 08:46 | Progress Note ---
Subjective Date Seen by a Provider: Dec 06, 2018 Time Seen by a Provider: 08:30 Subjective/Events-last exam PT AND DTR IN ROOM TODAY - DISCUSSING HIS OPTIONS FOR FURTHER TREATMENT - HOSPICE [facility]ERSUS LTAC. HE REPORTS THAT HE HAD AN EPISODE OF SHORTNESS OF BREATH WITH ANXIETY IN THE MIDDLE OF THE NIGHT. HE WAS GIVEN ATIVAN AND THAT HELPED HIS SYMPTOMS, HE REPORTS THAT THE PANIC FROM NOT BEING ABLE TO BREATH WAS TREMENDOUS AND MAKES HI M NERVOUS ABOUT GOING HOME. HE IS WORRIED THAT HIS WILL NOT BE ABLE TO MANAGE HIS SYMPTOMS AT HOME. HE IS ALSO WORRIED ABOUT TRAVEL TO AND FROM [place] FOR HIS AND KIDS. HE STATES THAT HE DOES NOT HAVE ANY CHEST PAIN, BUT HIS SHORTNESS OF BREATH CAN BE OVERWHELMING AT TIME. Review of Systems General: No Chills; Fatigue, Malaise HEENT: No Dysphasia, No Sore Throat Pulmonary: Dyspnea, Cough Cardiovascular: No: Chest Pain, Palpitations Gastrointestinal: No: Nausea, Abdominal Pain Genitourinary: Other (SUPRAPUBIC CATHETER IN PLACE) Neurological: Weakness; No: Confusion Objective Exam Last Set of Vital Signs Vital Signs Date Time Temp Pulse Resp B/P (MAP) Pulse Ox O2 Delivery O2 Flow Rate FiO2 12/06/18 08:28 36.9 12/06/18 06:54 100 NIV Bilevel 50 12/06/18 06:15 55.00 12/06/18 06:00 148/72 (97) 12/06/18 05:00 68 29 Capillary Refill : Less Than 3 Seconds I&O Intake and Output 12/06/18 00:00 Intake Total 2312.5 ml Output Total 2650 ml Balance -337.5 ml Intake Oral 655 ml IV Total 1657.5 ml Output Urine Total 2525 ml Stool Total 125 ml # Bowel Movements 1 General: Alert, Oriented X3, Cooperative, Mild Distress HEENT: Atraumatic, PERRLA Neck: Supple Lungs: Other (DECREASED THROUGHOUT) Heart: Regular Rate Abdomen: Normal Bowel Sounds, Soft, Other (OSTOMY LEFT LOWER ABDOMEN BAG INTACT) Psych/Mental Status: Mental Status NL, Mood NL Results Lab Laboratory Tests 12/05/18 17:18: Sodium Level 132L, Potassium Level 4.3, Chloride Level 95L, Carbon Dioxide Level 26, Anion Gap 11, Blood Urea Nitrogen 37H, Creatinine 1.01, Estimat Glomerular Filtration Rate > 60, BUN/Creatinine Ratio 37, Glucose Level 199H, Calcium Level 8.6, Phosphorus Level 3.5, Magnesium Level 2.1 12/06/18 03:05: Sodium Level 137, Potassium Level 4.9, Chloride Level 93L, Carbon Dioxide Level 31, Anion Gap 13, Blood Urea Nitrogen 34H, Creatinine 0.98, Estimat Glomerular Filtration Rate > 60, BUN/Creatinine Ratio 35, Glucose Level 148H, Calcium Level 8.6, Phosphorus Level 3.5, Magnesium Level 2.2, White Blood Count 12.5H, Red Blood Count 3.87L, Hemoglobin 10.4L, Hematocrit 33L, Mean Corpuscular Volume 86, Mean Corpuscular Hemoglobin 27, Mean Corpuscular Hemoglobin Concent 31L, Red Cell Distribution Width 18.6H, Platelet Count 374, Mean Platelet Volume 10.1, Neutrophils (%) (Auto) 91H, Lymphocytes (%) (Auto) 5L, Monocytes (%) (Auto) 4, Eosinophils (%) (Auto) 0, Basophils (%) (Auto) 0, Neutrophils # (Auto) 11.4H, Lymphocytes # (Auto) 0.6L, Monocytes # (Auto) 0.6, Eosinophils # (Auto) 0.0, Basophils # (Auto) 0.0, Neutrophils % (Manual) 90, Lymphocytes % (Manual) 2, Monocytes % (Manual) 6, Eosinophils % (Manual) 2, Hypochromasia SLIGHT, Poikilocytosis SLIGHT, Anisocytosis SLIGHT, Microcytosis SLIGHT, Spherocytes SLIGHT Microbiology 11/24/18 Blood Culture - Final, Complete No growth 11/28/18 MRSA Screen - Final, Complete MRSA not isolated 11/24/18 Urine Culture - Final, Complete Mixed Bacterial Wendy Proteus mirabilis Assessment/Plan Assessment/Plan Assess & Plan/Chief Complaint PULMONARY FIBROSIS WITH WORSENING DYSPNEA AND HYPOXEMIA WITH CHRONIC OXYGEN THERAPY PROLAPSED COLOSTOMY BLOOD PER COLOSTOMY INCARCERATED VENTRAL/STOMAL HERNIA CHRONIC ANEMIA CHRONIC DECUBITUS ULCERS CHRONIC OBSTRUCTIVE SLEEP APNEA CORONARY ARTERY DISEASE 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 LEUKOCYTOSIS HYPERKALEMIA (NOW RESOLVED) HYPERMAGNESEMIA PROTEUS URINARY TRACT INFECTION PULMONARY FIBROSIS WITH WORSENING DYSPNEA AND HYPOXEMIA WITH CHRONIC OXYGEN THERAPY - PT ON IV ANTIBIOTICS - CONTINUE WITH CURRENT MANAGEMENT - VANC AND ERAXIS - THE CT ON ADMISSION WAS NEGATIVE FOR PULMONARY EMBOLI AND THE REPEAT CT SCAN WAS NEGATIVE FOR PULMONARY EMBOLI, DID SHOW PLEURAL EFFUSIONS AND CHEST XRAY CONTINUES TO SHOW INFILTRATE AND SMALL EFFUSIONS - CONTINUE WITH ICU MANAGEMENT OF THIS PATIENT - PT HAD IMPROVED INCREMENTALLY, NOW HAS SHOWN A DECLINE. - I HAVE HAD AN EXTENSIVE CONVERSATION WITH ALBINA AND HIS DTR (KLEVER) ABOUT [facility]. DEDRA CAME AND TALKED TO ALBINA ABOUT HIS STATUS, UNFORTUNATELY NOBODY ELSE WAS IN THE ROOM WHEN DEDRA CAME IN TO TALK TO ALBINA. I HAVE AGAIN ASKED WYATT TO CALL DEDRA TO TALK TO HIM, THE PLAN WILL BE TO HAVE THEM COME ON MONDAY TO TALK WHEN HIS SON AND DAUGHTER ARE AVAILABLE. I WOULD BE HOPEFUL THAT ALBINA MAY BE IMPROVED ENOUGH TO BE STABLE FOR TRANSFER ON BIPAP TO [facility] ON MONDAY OR MONDAY OF NEXT WEEK. RIGHT NOW, MY CONCERN IS THAT HE IS GOING TO HAVE INCREASED RISK OF DECOMPENSATION EN-ROUTE DUE TO HIS CURRENT TENUOUS STATE - IF WE CAN IMPROVE HIM A LITTLE MORE, WE SHOULD HAVE A SUCCESSFUL TRANSFER. PROLAPSED COLOSTOMY AND BLOOD PER COLOSTOMY WITH INCARCERATED VENTRAL/STOMAL HERNIA - DEFER TO DR. PAN - AT THIS TIME WE ARE WAITING ON ANY SURGICAL INTERVENTION DUE TO HIS PULMONARY STATUS CHRONIC ANEMIA - HGB CONTINUES TO SLOWLY IMPROVE - ONCE STABLE, WILL CONSIDER IV IRON AGAIN OUTPATIENT. CHRONIC DECUBITUS ULCERS - WOUND CARE CONSULTED CHRONIC OBSTRUCTIVE SLEEP APNEA - SEE ABOVE STATUS - ON BIPAP BREATHING TREATMENTS, ETC. CORONARY ARTERY DISEASE - DR. BARRETT CONSULTED - APPRECIATE HIS INPUT ON THIS COMPLICATED PATIENT. CAUDA EQUINA SYNDROME - AT THIS TIME - WE WILL CONTINUE WITH PHYSICAL THERAPY IN BED ONLY - DUE TO PT'S PULMONARY DECONDITIONING AND INABILITY TO LEAVE ROOM. CHRONIC INDWELLING SUPRAPUBIC CATHETER - SUPPORTIVE CARE ONLY AT THIS TIME LEUKOCYTOSIS - MONITOR WBC'S, PT ON SOLUMEDROL 40MG IV Q6 HR - WHICH HAS CAUSED IATROGENIC WBC ELEVATION PROTEUS URINARY TRACT INFECTION - HAS FINISHED ZOSYN THERAPY OVERALL PROGNOSIS FLAVORER IS A POOR PROGNOSIS DUE TO HIS MULTIPLE CO-MORBID CONDITIONS. I HAVE HAD A CONVERSATION WITH ALBINA IN THE OFFICE AT HIS LAST OFFICE VISIT - INSTIGATED BY ALBINA HIMSELF. HE UNDERSTANDS THAT WITH RECURRENT INFECTIONS, HIS RISK OF GREATLY INCREASES AND HE HAS HIGH RISK FOR IN THE NEXT FEW MONTHS. Clinical Quality Measures DVT/VTE Risk/Contraindication: Risk Factor Score Per Nursin RFS Level Per Nursing on Admit: 4+=Very High LUKE,FEDE A MD Dec 06, 2018 08:46
[2018-12-06] MEDS: PANTOPRAZOLE 40 MG (PROTONIX) TAB PO SCH (09:13)
[2018-12-06] MEDS: MULTIVIT W/MINERALS TAB (THERAGRAN M) PO SCH (09:13)
[2018-12-06] MEDS: DULoxetine 30 MG (CYMBALTA) CAP PO SCH (09:13)
[2018-12-06] MEDS: VITAMIN D3 400 UNITS (CHOLECALCIFEROL) TABLET PO SCH ×2 (09:13→21:03)
[2018-12-06] MEDS: CLOPIDOGREL 75 MG (PLAVIX) TABLET PO SCH (09:13)
[2018-12-06] MEDS: CARVEDILOL 12.5 MG (COREG) TABLET PO SCH ×2 (09:14→21:03)
[2018-12-06] MEDS: GABAPENTIN 600 MG (NEURONTIN) TAB PO SCH ×2 (09:14→21:03)
[2018-12-06] MEDS: POLYETHYLENE GLYCOL 17 GM (MIRALAX) PACK PO SCH (09:14)
[2018-12-06] MEDS: amLODIPine 10 MG (NORVASC) TAB PO SCH (09:14)
[2018-12-06] MEDS: ANIDULAFUNGIN INJECTION 100 MG in NS (IVPB) 100 ML IV SCH (09:15)
[2018-12-06] MEDS: ENOXAPARIN 40 MG/0.4 ML (LOVENOX) SYR SC SCH (09:15)
[2018-12-06] MEDS: BUMETANIDE 2.5 MG/10 ML (BUMEX) VIAL IV SCH ×2 (09:15→21:03)
[2018-12-06] MEDS: cloNIDine 0.2 MG (CATAPRES) TAB PO SCH ×2 (09:19→21:03)
--- NOTE | 2018-12-06 09:24 | Physical Therapy Progress Note ---
Therapy Progress Note Patient declined PT on this date due to increase in difficulty breathing. Per physician, plan is to transfer to [place] to address pulmonary needs. PT will attempt in a.m. 1 ref [phone]) DELANO MONTGOMERY PT Dec 06, 2018 09:24
--- NOTE | 2018-12-06 10:24 | NUR ---
PALLIATIVE CARE RN got update from Dr. Aburto and then went to speak to patient. Daughter is in room and came at the tail end of visit. Plan is for repeat visit by Oral with Ilda, tomorrow afternoon. Set it up for around 4 pm so that patients son and possibly grandson can be here. Patient asking about differences in hospice in the home and hospice in the hospital...I educated on the difference in these...adding [facility] in the Hospital as a non-hospice option and explained fully what this means. Patient is not wanting to be a burden to his family if he were to go to [place]. I and Dr. Morejon spoke to this fear and worry. No other needs at this time. [place] rep will be here tomorrow around 4 to see patient and talk to family a second time. Addendum: 12/06/18 at 1107 by WYATT SUTTON RN FOLLOW UP. called Hospice and asked about BiPAP on hospice. I was told this could be done but it is not as good as the hospital machine. Informed the patient and his . I also let them know that I did set up a meeting with Ilda for 4 pm tomorrow.
[2018-12-06] MEDS: LOSARTAN 50 MG (COZAAR) TAB PO SCH (11:17)
--- NOTE | 2018-12-06 14:01 | Occ Therapy Progress Note ---
Therapy Progress Note Per nrsg, pt continues to have difficulty recovering O2 sat after any exertion and requests MERCEDES not to see pt today. OT will check on pt tomorrow. ABIMAEL RAMOS Dec 06, 2018 14:01
--- NOTE | 2018-12-06 14:30 | Diagnostic Imaging Report ---
INDICATION: PICC line placement. TIME OF EXAM: 2:11 p.m. Correlation is made with prior chest from 12/06/2018. FINDINGS: Changes of median sternotomy and CABG are noted. Right upper extremity PICC line has tip overlying the SVC. There appears to be infiltrate throughout the right lung, similar to prior exam. No significant effusion is seen. There is no pneumothorax. IMPRESSION: Satisfactory PICC line placement. Dictated by: Dictated on workstation # [id number]
[2018-12-06] MEDS: ASPIRIN E.C. 81 MG (ECOTRIN) TAB PO SCH (21:03)
[2018-12-06] MEDS: MELATONIN 3 MG TABLET PO SCH (21:04)
[2018-12-07] VITALS (13 sets, daily range): BP systolic 128–161; BP diastolic 43–78
[2018-12-07] MEDS: RT-ALBUTEROL/IPRATROPIUM 3 ML (DUONEB) VIAL INH SCH ×6 (01:39→22:48)
[2018-12-07] MEDS: methylPREDNISolone 40 MG/ML (Solu-MEDROL) VIAL IV SCH ×4 (03:11→22:11)
[2018-12-07] MEDS: morphine INJ 10 MG/ML 1ML (SYR OR VIAL) IVP PRN ×3 (03:12→17:16)
[2018-12-07 03:24] LABS: BASOPHILS % (AUTO) 0 % (0-10); EOSINOPHILS % (AUTO) 0 % (0-10); HEMATOCRIT 30 % (40-54); HEMOGLOBIN 9.4 G/DL (13.3-17.7); LYMPHOCYTES # (AUTO) 0.4 X 10^3 (1.0-4.0); LYMPHOCYTES % (AUTO) 4 % (12-44); MEAN CORPUSCULAR HEMOGLOBIN 27 PG (25-34); MEAN CORPUSCULAR HGB CONC 31 G/DL (32-36); MEAN CORPUSCULAR VOLUME 85 FL (80-99); MEAN PLATELET VOLUME 9.9 FL (7.4-10.4); MONOCYTES # (AUTO) 0.5 X 10^3 (0.0-1.0); MONOCYTES % (AUTO) 5 % (0-12); NEUTROPHILS # (AUTO) 9.6 X 10^3 (1.8-7.8); NEUTROPHILS % (AUTO) 91 % (42-75); PLATELET COUNT 336 10^3/uL (130-400); RED CELL DISTRIBUTION WIDTH 18.7 % (10.0-14.5); WHITE BLOOD COUNT 10.6 10^3/uL (4.3-11.0)
[2018-12-07 03:44] LABS: BUN/CREATININE RATIO 41; CALCIUM 8.4 MG/DL (8.5-10.1); CARBON DIOXIDE 31 MMOL/L (21-32); CHLORIDE 92 MMOL/L (98-107); CREATININE SERUM 0.81 MG/DL (0.60-1.30); GFR ESTIMATED > 60; GLUCOSE 156 MG/DL (70-105); MAGNESIUM 2.1 MG/DL (1.6-2.4); POTASSIUM 3.7 MMOL/L (3.6-5.0); SODIUM 134 MMOL/L (135-145)
[2018-12-07] MEDS: VANCOMYCIN INJECTION 1,750 MG in NS IV 500 ML 500 ML IV SCH (06:22)
--- NOTE | 2018-12-07 07:13 | Cardiology Progress Note ---
Subjective Date Seen by Provider: Dec 07, 2018 Time Seen by Provider: 07:11 Subjective/Events-last exam Patient is laying down in bed. Denied any chest pain, having shortness of breath and using BiPAP, occasionally tolerating Vapotherm Review of Systems General: No Chills, No Night Sweats; Fatigue, Malaise; No Appetite, No Other HEENT: No Head Aches, No Visual Changes, No Eye Pain, No Ear Pain, No Dysphasia, No Sinus Congestion, No Post Nasal Drip, No Sore Throat, No Other Pulmonary: Dyspnea; No Cough, No Pleuritic Chest Pain, No Other Cardiovascular: No: Chest Pain, Palpitations, Orthopnea, Paroxysmal Noc. Dyspnea, Edema, Lt Headedness, Other Objective-Cardiology Exam Last Set of Vital Signs Vital Signs 12/06/18 12/06/18 12/07/18 12/07/18 21:00 23:28 04:00 06:13 Temp 36.1 Pulse 68 Resp 25 B/P (MAP) 146/43 (77) Pulse Ox 96 O2 Delivery NIV Bilevel O2 Flow Rate 40.00 FiO2 50 Capillary Refill : Less Than 3 Seconds I&O Intake and Output 12/07/18 00:00 Intake Total 790 ml Output Total 3700 ml Balance -2910 ml Intake Oral 790 ml Output Urine Total 3700 ml General: Alert, Oriented X3, Cooperative, Moderate Distress HEENT: Atraumatic, PERRLA, Mucous Memb Moist/[place] Neck: Supple Lungs: Other (DECREASED IN BASES WITH CRACKLES AND DECREASED MID LUNG ON RIGHT TO BASE) Heart: Regular Rate, Normal S1, Normal S2 Abdomen: Normal Bowel Sounds, Soft, No Tenderness Extremities: No Cyanosis Skin: No Breakdown Neuro: Cranial Nerves 3-12 NL Psych/Mental Status: Mental Status NL, Mood NL Results Lab Laboratory Tests 12/07/18 03:14 A/P-Cardiology Admission Diagnosis Prolapsed colostomy bag Malignant hypertension COPD Coronary artery disease Assessment/Plan Shortness of breath, respiratory failure multifactorial, currently on BiPAP alternating with Vapotherm, maintained on Solu-Medrol and antibiotic, underlying pulmonary fibrosis and COPD. Possible transferred to [place] when stable enough to tolerate the transfer. Managed by primary care team Pneumonia with ARDS, receiving antibiotics, managed by Dr. Hutton Prolapsed of colostomy, constipation, reporting improvement in his constipation. Managed by Dr. Mccullough Hypertension, continue current medication monitor blood pressure Anemia, continue to monitor H&H Acute on chronic renal failure, monitor renal function Elevated BNP, echocardiogram done in September 2018 showing normal left ventricular size with ejection fraction 55-65 percent, grade 2 diastolic dysfunction, mild mitral regurgitation, aortic valve sclerosis, pulmonary hypertension with PA pressure of 50 mmHg. Hypertensive heart disease. Continue to monitor Coronary artery disease, history of CABG x3 done in 1999 using RODRIGEZ to LAD, vein graft to the first obtuse marginal, vein graft to the left posterolateral branch of the left circumflex artery. Cardiac catheterization was done in November 2013 showing occluded vein graft to the left circumflex artery. Patient had 2 stents in the [place] circumflex artery using 3.516 mm proximally and 3.520 mm at the midportion Promus Premier stents, distally there was 60 percent stenosis which will be monitored. The LAD has significant disease proximally, patient has significantly tortuous thoracic and abdominal aorta. Deferred the the evaluation of the RODRIGEZ due to the use of large amount of contrast. The right coronary artery is a small none dominant artery was not even visualized during this study. Patient had another stent placed in the circumflex artery in [facility] in 2014, no recent workup for follow-up was done. continue to monitor at this time Heavily calcified thoracic and abdominal aorta. CTA done on 01/06/2014 revealed no aneurysm or occlusions or stenosis of abdominal aorta or major branches, continue to monitor Hyperlipidemia, continue to monitor. History of CVA. Continue to monitor. Mild carotid stenosis, nonobstructive disease bilaterally, has been followed in [facility], requesting to transfer is service back to my office. I will evaluate carotid ultrasound as an outpatient COPD/obstructive sleep apnea, Continue to monitor. History of prostate CA with questionable metastasis, patient expressed that it has been followed and managed at . He reported that it was slow growing and the recommendation was conservative management. Cauda equina syndrome, underwent surgery, patient expressed that he did not have full recovery Clinical Quality Measures DVT/VTE Risk/Contraindication: Risk Factor Score Per Nursin RFS Level Per Nursing on Admit: 4+=Very High KIMBERLI BARRETT MD Dec 07, 2018 07:13
[2018-12-07] MEDS: amLODIPine 10 MG (NORVASC) TAB PO SCH (08:33)
[2018-12-07] MEDS: PANTOPRAZOLE 40 MG (PROTONIX) TAB PO SCH (08:33)
[2018-12-07] MEDS: CLOPIDOGREL 75 MG (PLAVIX) TABLET PO SCH (08:33)
[2018-12-07] MEDS: hydrALAZINE (APRESOLINE) 25 MG TAB PO SCH ×3 (08:34→22:11)
[2018-12-07] MEDS: ENOXAPARIN 40 MG/0.4 ML (LOVENOX) SYR SC SCH (08:34)
[2018-12-07] MEDS: VITAMIN D3 400 UNITS (CHOLECALCIFEROL) TABLET PO SCH ×2 (08:34→20:22)
[2018-12-07] MEDS: POLYETHYLENE GLYCOL 17 GM (MIRALAX) PACK PO SCH (08:34)
[2018-12-07] MEDS: CARVEDILOL 12.5 MG (COREG) TABLET PO SCH ×2 (08:34→20:22)
[2018-12-07] MEDS: MULTIVIT W/MINERALS TAB (THERAGRAN M) PO SCH (08:34)
[2018-12-07] MEDS: DULoxetine 30 MG (CYMBALTA) CAP PO SCH (08:34)
[2018-12-07] MEDS: ANIDULAFUNGIN INJECTION 100 MG in NS (IVPB) 100 ML IV SCH (08:34)
[2018-12-07] MEDS: BUMETANIDE 2.5 MG/10 ML (BUMEX) VIAL IV SCH ×2 (08:34→20:22)
[2018-12-07] MEDS: GABAPENTIN 600 MG (NEURONTIN) TAB PO SCH ×2 (08:34→20:21)
[2018-12-07] MEDS: cloNIDine 0.2 MG (CATAPRES) TAB PO SCH ×2 (08:37→20:22)
--- NOTE | 2018-12-07 08:37 | Diagnostic Imaging Report ---
INDICATION: Shortness of breath. TECHNIQUE: Single view chest 3:09 AM. CORRELATION STUDY: 12/06/2018 FINDINGS: Poststernotomy and coronary artery bypass changes. Heart size stable. Vasculature is perhaps slightly diminished. Scattered patchy pulmonary parenchymal densities throughout both lung cramer persisting. Findings most pronounced along the lung bases. Probable small effusions. Right sided central line tip projects over low SVC. IMPRESSION: 1. Cardiac enlargement with mild vascular congestion but overall appears improved from prior study. 2. Scattered extensive bilateral pulmonary infiltrates persisting stable to slightly improved. Dictated by: Dictated on workstation # [id number]
--- NOTE | 2018-12-07 09:16 | Progress Note ---
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 PT REPORTS THAT HE HAD A LONG CONVERSATION YESTERDAY EVENING WITH HIS NIGHT- NURSE. HE REPORTS THAT HE TALKED TO HER ABOUT HOSPICE AND HIS FEARS ABOUT HOSPICE. HIS DTR WAS IN ON THE CONVERSATION. THEIR MAIN WORRY IS TO BE AT HOME AND HE A CRISIS AND THEY ARE NOT ABLE TO ADEQUATELY MANAGE HIS SYMPTOMS. HE IS WORRIED ABOUT GOING TO [place] AND THE BURDEN THAT WILL PLACE ON HIS FAMILY. DURING OUR CONVERSATION HIS (ROSA) CAME INTO THE ROOM AND REITERATED HIS WORRIES AND HER CONCERNS ABOUT BEING ABLE TO ADEQUATELY CARE FOR ALBINA IN THEIR HOME. Review of Systems General: Fatigue, Malaise HEENT: No Head Aches, No Dysphasia Pulmonary: Dyspnea, Cough Cardiovascular: No: Chest Pain, Palpitations Gastrointestinal: No: Nausea, Abdominal Pain Genitourinary: Other (SUPRAPUBIC CATHETER IN PLACE) Musculoskeletal: No: back pain Neurological: Weakness; No: Confusion Objective Exam Last Set of Vital Signs Vital Signs Date Time Temp Pulse Resp B/P (MAP) Pulse Ox O2 Delivery O2 Flow Rate FiO2 12/07/18 07:00 73 12/07/18 06:13 25 96 40.00 12/07/18 04:00 146/43 (77) NIV Bilevel 12/06/18 23:28 36.1 12/06/18 21:00 50 Capillary Refill : Less Than 3 Seconds I&O Intake and Output 12/07/18 00:00 Intake Total 790 ml Output Total 3700 ml Balance -2910 ml Intake Oral 790 ml Output Urine Total 3700 ml General: Alert, Oriented X3, Cooperative, Mild Distress (PT HAD AN EPISODE OF SHORTNESS OF BREATH AND ANXIETY ATTACK WHILE IN WAS IN THE ROOM TODAY.) HEENT: PERRLA Neck: Supple Lungs: Other (DECREASED WITH CRACKLES IN BASES) Heart: Regular Rate Skin: No Significant Lesion Neuro: Cranial Nerves 3-12 NL Psych/Mental Status: Mental Status NL, Mood NL Results Lab Laboratory Tests 12/07/18 03:14: White Blood Count 10.6, Red Blood Count 3.52L, Hemoglobin 9.4L, Hematocrit 30L, Mean Corpuscular Volume 85, Mean Corpuscular Hemoglobin 27, Mean Corpuscular Hemoglobin Concent 31L, Red Cell Distribution Width 18.7H, Platelet Count 336, Mean Platelet Volume 9.9, Neutrophils (%) (Auto) 91H, Lymphocytes (%) (Auto) 4L, Monocytes (%) (Auto) 5, Eosinophils (%) (Auto) 0, Basophils (%) (Auto) 0, Neut rophils # (Auto) 9.6H, Lymphocytes # (Auto) 0.4L, Monocytes # (Auto) 0.5, Eosinophils # (Auto) 0.0, Basophils # (Auto) 0.0, Sodium Level 134L, Potassium Level 3.7, Chloride Level 92L, Carbon Dioxide Level 31, Anion Gap 11, Blood Urea Nitrogen 33H, Creatinine 0.81, Estimat Glomerular Filtration Rate > 60, BUN/Creatinine Ratio 41, Glucose Level 156H, Calcium Level 8.4L, Phosphorus Level 3.5, Magnesium Level 2.1 Microbiology 11/24/18 Blood Culture - Final, Complete No growth 11/28/18 MRSA Screen - Final, Complete MRSA not isolated 11/24/18 Urine Culture - Final, Complete Mixed Bacterial Wendy Proteus mirabilis Assessment/Plan Assessment/Plan Assess & Plan/Chief Complaint PULMONARY FIBROSIS WITH WORSENING DYSPNEA AND HYPOXEMIA WITH CHRONIC OXYGEN THERAPY PROLAPSED COLOSTOMY BLOOD PER COLOSTOMY INCARCERATED VENTRAL/STOMAL HERNIA CHRONIC ANEMIA CHRONIC DECUBITUS ULCERS CHRONIC OBSTRUCTIVE SLEEP APNEA CORONARY ARTERY DISEASE 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 LEUKOCYTOSIS HYPERKALEMIA (NOW RESOLVED) HYPERMAGNESEMIA PROTEUS URINARY TRACT INFECTION PULMONARY FIBROSIS WITH WORSENING DYSPNEA AND HYPOXEMIA WITH CHRONIC OXYGEN THERAPY - PT ON IV ANTIBIOTICS - CONTINUE WITH CURRENT MANAGEMENT - VANC AND ERAXIS - THE CT ON ADMISSION WAS NEGATIVE FOR PULMONARY EMBOLI AND THE REPEAT CT SCAN WAS NEGATIVE FOR PULMONARY EMBOLI, DID SHOW PLEURAL EFFUSIONS AND CHEST XRAY CONTINUES TO SHOW INFILTRATE AND SMALL EFFUSIONS - CONTINUE WITH ICU MANAGEMENT OF THIS PATIENT - PT HAD IMPROVED INCREMENTALLY, NOW HAS SHOWN A DECLINE. - I HAVE HAD AN EXTENSIVE CONVERSATION ON 12/05/18 WITH ALBINA AND HIS DTR (KLEVER) ABOUT [facility]. I WOULD BE HOPEFUL THAT ALBINA MAY BE IMPROVED ENOUGH TO BE STABLE FOR TRANSFER ON BIPAP TO [facility] ON MONDAY OR MONDAY OF NEXT WEEK. RIGHT NOW, MY CONCERN IS THAT HE IS GOING TO HAVE INCREASED RISK OF DECOMPENSATION EN-ROUTE DUE TO HIS CURRENT TENUOUS STATE - IF WE CAN IMPROVE HIM A LITTLE MORE, WE SHOULD HAVE A SUCCESSFUL TRANSFER. ALBINA IS GOING TO HAVE HIS FAMILY IN THE ROOM AND HAVE [facility] COM[facility] AGAIN TODAY TO TALK TO HIM AND HIS FAMILY ABOUT POSSIBLE TRANSFER TO THEIR FACILITY TO ATTEMPT BIPAP WEANING. ALBINA IS ALSO CONSIDERING HOSPICE. CXR TODAY: IMPRESSION: 1. Cardiac enlargement with mild vascular congestion but overall appears improved from prior study. 2. Scattered extensive bilateral pulmonary infiltrates persisting stable to slightly improved. PROLAPSED COLOSTOMY AND BLOOD PER COLOSTOMY WITH INCARCERATED VENTRAL/STOMAL HERNIA - DEFER TO DR. PAN - AT THIS TIME WE ARE WAITING ON ANY SURGICAL INTERVENTION DUE TO HIS PULMONARY STATUS CHRONIC ANEMIA - HGB HAD INCREMENTAL DECLINE TODAY CHRONIC DECUBITUS ULCERS - WOUND CARE CONSULTED CHRONIC OBSTRUCTIVE SLEEP APNEA - SEE ABOVE STATUS - ON BIPAP BREATHING TREATMENTS, ETC. CORONARY ARTERY DISEASE - DR. BARRETT CONSULTED - APPRECIATE HIS INPUT ON THIS COMPLICATED PATIENT. CAUDA EQUINA SYNDROME - AT THIS TIME - WE WILL CONTINUE WITH PHYSICAL THERAPY IN BED ONLY - DUE TO PT'S PULMONARY DECONDITIONING AND INABILITY TO LEAVE ROOM. CHRONIC INDWELLING SUPRAPUBIC CATHETER - SUPPORTIVE CARE ONLY AT THIS TIME LEUKOCYTOSIS - MONITOR WBC'S, PT ON SOLUMEDROL 40MG IV Q6 HR - WHICH HAS CAUSED IATROGENIC WBC ELEVATION - NORMALIZED TODAY. PROTEUS URINARY TRACT INFECTION - ON ZOSYN TREATMENT HAS BEEN COMPLETED. OVERALL PROGNOSIS DETENTION IS A POOR PROGNOSIS DUE TO HIS MULTIPLE CO-MORBID CONDITIONS. I HAVE HAD A CONVERSATION WITH ALBINA IN THE OFFICE AT HIS LAST OFFICE VISIT - INSTIGATED BY ALBINA HIMSELF. HE UNDERSTANDS THAT WITH RECURRENT INFECTIONS, HIS RISK OF GREATLY INCREASES AND HE HAS HIGH RISK FOR IN THE NEXT FEW MONTHS. Clinical Quality Measures DVT/VTE Risk/Contraindication: Risk Factor Score Per Nursin RFS Level Per Nursing on Admit: 4+=Very High FEDE BUTLER MD Dec 07, 2018 09:16
[2018-12-07] MEDS ORDERED: morphine INJ 4 MG/ML 1 ML (VIAL/SYRINGE) ONE (09:25)
[2018-12-07] MEDS ORDERED: morphine INJ 4 MG/ML 1 ML (VIAL/SYRINGE) IV NR (09:30)
[2018-12-07] MEDS ORDERED: morphine INJ 10 MG/ML 1ML (SYR OR VIAL) IVP STA ×2 (09:30)
--- NOTE | 2018-12-07 09:41 | NUR ---
DR. BUTLER IN ROOM WITH PATIENT AT THIS TIME DISCUSSING CARE ET PATIENT NEEDS. PATIENT ANXIOUS DURING CONVERSATION ET EXPERIENCING AIR HUNGER, DR. BUTLER INCREASED PATIENT BIPAP SETTING TO 45% ET REQUESTED ONE TIME ORDER MORPHINE 2MG, TO BE ADMINISTERED FOR AIR HUNGER. DR. BUTLER STATED SHE WILL RETURN BIPAP TO PREVIOUS SETTINGS ONCE PATIENT HAS CALMED DOWN BEFORE SHE LEAVES HIS ROOM. MORPHINE 2 MG GIVEN VIA IV PUSH AT THIS TIME, BY THIS NURSE.
--- NOTE | 2018-12-07 10:45 | Occ Therapy Progress Note ---
Therapy Progress Note Discussed pt status with RN who reports pt is okay to participate in therapy as tolerated. Attempted treatment at 1005. Pt resting in bed, requests to hold therapy today secondary to fatigue and wanting to conserve his energy. Pt denied needs at this time. Will continue to monitor and complete treatment as appropriate. Pt in bed with spouse present and needs met. 1, visit SIDRA GARCIA OT Dec 07, 2018 10:45
--- NOTE | 2018-12-07 10:49 | Physical Therapy Progress Note ---
Therapy Progress Note 1019am Spoke with nsg before seeing pt, states he is having a hospice meeting at 4pm, they are trying to find him an air bed, he has been getting morphine quite a bit for air hunger and has been easily desating with O2. Pt ref PT session stating he needs to save what energy he has for visitors in a little bit. Instruction and demo given for pt to perform LE ex's later this afternoon and evening, pt voicing understanding and agreement. Pt's in room. KATERYNA CHIRINOS INFERTILITY MEDICAL ASSISTANT Dec 07, 2018 10:49
[2018-12-07] MEDS: LOSARTAN 50 MG (COZAAR) TAB PO SCH (11:04)
[2018-12-07] MEDS: ASPIRIN E.C. 81 MG (ECOTRIN) TAB PO SCH (20:22)
[2018-12-07] MEDS: MELATONIN 3 MG TABLET PO SCH (20:22)
[2018-12-07] MEDS: RT-ALBUTEROL/IPRATROPIUM 3 ML (DUONEB) VIAL INH PRN (20:38)
[2018-12-08] VITALS (13 sets, daily range): BP systolic 126–174; BP diastolic 67–119
[2018-12-08] MEDS: RT-ALBUTEROL/IPRATROPIUM 3 ML (DUONEB) VIAL INH SCH ×6 (02:18→21:49)
[2018-12-08] MEDS: methylPREDNISolone 40 MG/ML (Solu-MEDROL) VIAL IV SCH ×4 (04:19→22:14)
[2018-12-08] MEDS: morphine INJ 10 MG/ML 1ML (SYR OR VIAL) IVP PRN ×3 (04:33→22:15)
[2018-12-08] MEDS: hydrALAZINE (APRESOLINE) 25 MG TAB PO SCH ×3 (07:46→22:13)
[2018-12-08] MEDS: ENOXAPARIN 40 MG/0.4 ML (LOVENOX) SYR SC SCH (09:36)
[2018-12-08] MEDS: ANIDULAFUNGIN INJECTION 100 MG in NS (IVPB) 100 ML IV SCH (09:36)
[2018-12-08] MEDS: POLYETHYLENE GLYCOL 17 GM (MIRALAX) PACK PO SCH (09:37)
[2018-12-08] MEDS: PANTOPRAZOLE 40 MG (PROTONIX) TAB PO SCH (09:38)
[2018-12-08] MEDS: VITAMIN D3 400 UNITS (CHOLECALCIFEROL) TABLET PO SCH ×2 (09:38→20:33)
[2018-12-08] MEDS: DULoxetine 30 MG (CYMBALTA) CAP PO SCH (09:38)
[2018-12-08] MEDS: BUMETANIDE 2.5 MG/10 ML (BUMEX) VIAL IV SCH ×2 (09:39→20:33)
[2018-12-08] MEDS: cloNIDine 0.2 MG (CATAPRES) TAB PO SCH ×2 (09:39→20:33)
[2018-12-08] MEDS: amLODIPine 10 MG (NORVASC) TAB PO SCH (09:39)
[2018-12-08] MEDS: MULTIVIT W/MINERALS TAB (THERAGRAN M) PO SCH (09:39)
[2018-12-08] MEDS: GABAPENTIN 600 MG (NEURONTIN) TAB PO SCH ×2 (09:39→20:33)
[2018-12-08] MEDS: CARVEDILOL 12.5 MG (COREG) TABLET PO SCH ×2 (09:43→20:33)
[2018-12-08] MEDS: CLOPIDOGREL 75 MG (PLAVIX) TABLET PO SCH (10:01)
[2018-12-08] MEDS: LOSARTAN 50 MG (COZAAR) TAB PO SCH (12:04)
--- NOTE | 2018-12-08 14:59 | Progress Note - Cardiology ---
Cardiology SOAP Progress Note Subjective: Shortness of breath as previously No cp or palp or syncope Gen malaise and weakness Objective: I&O/Vital Signs 12/08/18 12/08/18 12/08/18 12/08/18 04:00 04:00 05:22 05:32 Temp 36.8 Pulse 86 Resp 22 B/P (MAP) 173/81 (111) Pulse Ox 96 O2 Delivery NIV Bilevel Vapotherm NIV Bilevel O2 Flow Rate 50.00 40.00 50.00 100.00 12/08/18 12/08/18 12/08/18 12/08/18 06:50 07:00 08:00 09:00 Pulse 77 74 85 Resp 26 24 B/P (MAP) 146/113 (124) Pulse Ox 97 88 O2 Delivery Vapotherm NIV Bilevel O2 Flow Rate 50.00 40.00 100.00 FiO2 50 12/08/18 12/08/18 12/08/18 12/08/18 10:26 12:00 13:00 14:00 Pulse 80 69 68 Resp 30 30 B/P (MAP) 174/119 (137) 144/73 (96) Pulse Ox 90 89 99 O2 Delivery Vapotherm Vapotherm Vapotherm O2 Flow Rate 40.00 40.00 40.00 100.00 100.00 FiO2 100 12/08/18 14:33 Pulse 65 Resp 23 Pulse Ox 91 O2 Flow Rate 50.00 12/08/18 00:00 Intake Total 845 ml Output Total 1300 ml Balance -455 ml Weight (Pounds): 245 Weight (Ounces): 6.0 Weight (Calculated Kilograms): 111.403781 Constitutional: AAO x 3, well-developed, well-nourished, other (on BiPAP) Respiratory: No accessory muscle use; other (diminishe air entry, prolonged exp phase, coarse basal and mid-zone crackles) Cardiovascular: regular rate-rhythm, S1 and S2, systolic murmur (faint PAUL at card base) Gastrointestional: No tender, No guarding, No rebound; audible bowel sounds Extremities: swelling (mod, bilat, pitting and nonpitting edema); No clubbing, No cyanosis Neurologic/Psychiatric: oriented x 3, grossly intact, power is 5/5 both on sides Skin: No rash on exposed areas, No ulcerations on exposed areas Results/Procedures: Labs Microbiology 11/24/18 Blood Culture - Final, Complete No growth 11/28/18 MRSA Screen - Final, Complete MRSA not isolated 11/24/18 Urine Culture - Final, Complete Mixed Bacterial Wendy Proteus mirabilis A/P: Assessment: Persistent multifactorial shortness of breath and chronic resp failure: pulmonary fibrosis, pneumonia, obesity-hypoventilation, chronic diastolic CHF Prolapse of colostomy, managed by Dr. Mccullough Hypertension, difficult to control Anemia of undetermined etiology, managed by the [facility], blood transfusion during this admission Acute on chronic renal failure, monitor renal function UTI, Dr Aburto managing Echo of 11/30/18: LVEF 55-65 percent, pulmonary hypertension with RVSP 65 mmHG, mild to mod tricuspid & mitral regurgitation, aortic valve sclerosis and mod MAC w/o stenoses Coronary artery disease, history of CABG x3 done in 1999 using RODRIGEZ to LAD, vein graft to the first obtuse marginal, vein graft to the left posterolateral branch of the left circumflex artery. Cardiac catheterization was done in November 2013 showed occluded vein graft to the left circumflex artery. Patient had 2 stents in the [place] circumflex artery, 3.516 mm proximally and 3.520 mm at the midportion, distally there was 60 percent stenosis. The LAD had significant disease proximally, patient has significantly tortuous thoracic and abdominal aorta and RODRIGEZ angio was not done due to the use of large amount of contrast. The right coronary artery was a small none dominant artery was not even visualized during this study. Patient had another stent placed in the circumflex artery at [facility] in 2014 Heavily calcified thoracic and abdominal aorta. CTA done on 01/06/2014 revealed no aneurysm or occlusions or stenosis of abdominal aorta or major branches, continue to monitor Hyperglycemia, managed by Dr Aburto History of CVA Mild carotid stenosis, nonobstructive disease bilaterally COPD/obstructive sleep apnea History of prostate CA with questionable metastasis followed and managed at [facility] (according to the pt) Cauda equina syndrome, h/o surgery Plan: * Complex management due to multiple comorbidities * I reviewed his course in the last week * Continue current medication regimen * Monitor labs * I spoke with him, his , and his daughter, and answered CV-related questions MARY MENDEZ MD [facility] Dec 08, 2018 14:59
--- NOTE | 2018-12-08 17:49 | Progress Note - Hospitalist ---
Subjective HPI/CC On Admission Date Seen by Provider: Dec 08, 2018 Time Seen by Provider: 09:30 Dyspnea with hypoxia and blood from colostomy Subjective/Events-last exam He reports feeling about the same today. He continues to feel short of breath. He denies any fevers or chills. He has no other complaints. Objective Exam Vital Signs Vital Signs Date Time Temp Pulse Resp B/P (MAP) Pulse Ox O2 Delivery O2 Flow Rate FiO2 12/08/18 20:12 NIV Bilevel 60 12/08/18 20:00 77 18 140/73 (95) 99 50.00 12/08/18 17:53 36.4 Capillary Refill : Less Than 3 Seconds General Appearance: Chronically ill, Mild Distress Respiratory: Crackles, Other (tachypnea) Cardiovascular: Regular Rate, Rhythm, No Edema, No Murmur Gastrointestinal: Normal Bowel Sounds, Soft Extremity: Normal Inspection, Non Tender, Pedal Edema Neurologic/Psychiatric: Alert; No Disoriented Results/Procedures Lab Patient resulted labs reviewed. Assessment/Plan Assessment and Plan Assess & Plan/Chief Complaint Pulmonary fibrosis Acute on chronic respiratory failure with hypoxia -Continue Vancomycin and Eraxis -Continue BiPAP -Continue Solumedrol Prolapsed colostomy Blood per colostomy Incarcerated ventral/stomal hernia Chronic anemia Chronic decubitus ulcers Chronic obstructive sleep apnea Coronary artery disease Cauda equina syndrome Chronic indwelling suprapubic catheter Leukocytosis, resolved Hyperkalemia, resolved Hypermagnesemia, resolved Proteus urinary tract infection, resolved DVT prophylaxis: Lovenox Diagnosis/Problems Diagnosis/Problems (1) Acute respiratory failure Status: Acute (2) Pulmonary fibrosis Status: Chronic (3) Colostomy complication Status: Acute (4) Suprapubic catheter Status: Chronic (5) Cauda equina syndrome Status: Chronic Clinical Quality Measures DVT/VTE Risk/Contraindication: Risk Factor Score Per Nursin RFS Level Per Nursing on Admit: 4+=Very High CHAR HERRERA MD Dec 08, 2018 17:49
[2018-12-08] MEDS: ASPIRIN E.C. 81 MG (ECOTRIN) TAB PO SCH (20:33)
[2018-12-08] MEDS: MELATONIN 3 MG TABLET PO SCH (20:33)
[2018-12-09] VITALS (12 sets, daily range): BP systolic 106–169; BP diastolic 51–102
[2018-12-09] MEDS: RT-ALBUTEROL/IPRATROPIUM 3 ML (DUONEB) VIAL INH SCH ×6 (02:01→23:22)
[2018-12-09] MEDS: methylPREDNISolone 40 MG/ML (Solu-MEDROL) VIAL IV SCH ×4 (03:58→21:30)
[2018-12-09 04:18] LABS: BASOPHILS % (AUTO) 0 % (0-10); EOSINOPHILS % (AUTO) 0 % (0-10); HEMATOCRIT 31 % (40-54); HEMOGLOBIN 9.5 G/DL (13.3-17.7); LYMPHOCYTES # (AUTO) 0.4 X 10^3 (1.0-4.0); LYMPHOCYTES % (AUTO) 3 % (12-44); MEAN CORPUSCULAR HEMOGLOBIN 27 PG (25-34); MEAN CORPUSCULAR HGB CONC 31 G/DL (32-36); MEAN CORPUSCULAR VOLUME 86 FL (80-99); MEAN PLATELET VOLUME 9.8 FL (7.4-10.4); MONOCYTES # (AUTO) 0.5 X 10^3 (0.0-1.0); MONOCYTES % (AUTO) 4 % (0-12); NEUTROPHILS # (AUTO) 10.7 X 10^3 (1.8-7.8); NEUTROPHILS % (AUTO) 93 % (42-75); PLATELET COUNT 282 10^3/uL (130-400); WHITE BLOOD COUNT 11.6 10^3/uL (4.3-11.0)
[2018-12-09 04:41] LABS: BUN/CREATININE RATIO 37; CALCIUM 8.4 MG/DL (8.5-10.1); CARBON DIOXIDE 31 MMOL/L (21-32); CHLORIDE 91 MMOL/L (98-107); CREATININE SERUM 1.03 MG/DL (0.60-1.30); GFR ESTIMATED > 60; GLUCOSE 219 MG/DL (70-105); POTASSIUM 3.9 MMOL/L (3.6-5.0); SODIUM 134 MMOL/L (135-145)
[2018-12-09] MEDS: hydrALAZINE (APRESOLINE) 25 MG TAB PO SCH ×3 (06:19→21:30)
--- NOTE | 2018-12-09 08:00 | NUR ---
REPOSITIONED PATIENT IN BED AND GOWN CHANGED. SWITCHED FROM BIPAP TO VAPOTHERM. TOLERATED THIS FOR APPROX 10 MINUTES TO EAT BREAKFAST. PT PUT BACK ON BIPAP AFTER FINISHED EATING. HE VOICES NO COMPLAINTS.
[2018-12-09] MEDS: BUMETANIDE 2.5 MG/10 ML (BUMEX) VIAL IV SCH ×2 (09:11→21:29)
[2018-12-09] MEDS: ENOXAPARIN 40 MG/0.4 ML (LOVENOX) SYR SC SCH (09:11)
[2018-12-09] MEDS: ANIDULAFUNGIN INJECTION 100 MG in NS (IVPB) 100 ML IV SCH (09:11)
[2018-12-09] MEDS: CLOPIDOGREL 75 MG (PLAVIX) TABLET PO SCH (09:12)
[2018-12-09] MEDS: amLODIPine 10 MG (NORVASC) TAB PO SCH (09:12)
[2018-12-09] MEDS: GABAPENTIN 600 MG (NEURONTIN) TAB PO SCH ×2 (09:12→21:30)
[2018-12-09] MEDS: DULoxetine 30 MG (CYMBALTA) CAP PO SCH (09:13)
[2018-12-09] MEDS: VITAMIN D3 400 UNITS (CHOLECALCIFEROL) TABLET PO SCH ×2 (09:13→21:30)
[2018-12-09] MEDS: CARVEDILOL 12.5 MG (COREG) TABLET PO SCH ×2 (09:13→21:30)
[2018-12-09] MEDS: PANTOPRAZOLE 40 MG (PROTONIX) TAB PO SCH (09:13)
[2018-12-09] MEDS: MULTIVIT W/MINERALS TAB (THERAGRAN M) PO SCH (09:13)
[2018-12-09] MEDS: cloNIDine 0.2 MG (CATAPRES) TAB PO SCH ×2 (09:13→21:30)
[2018-12-09] MEDS: POLYETHYLENE GLYCOL 17 GM (MIRALAX) PACK PO SCH (09:13)
[2018-12-09] MEDS ORDERED: VANCOMYCIN INJECTION 1,750 MG in NS IV 500 ML 500 ML IV NR (11:00)
[2018-12-09] MEDS: LOSARTAN 50 MG (COZAAR) TAB PO SCH (11:13)
--- NOTE | 2018-12-09 11:58 | NUR ---
PT SWITCHED FROM BIPAP TO VAPOTHERM FOR LUNCH. TOLERATED OK WITH SATS 88-94% UNTIL FINISHED LUNCH. PT PLACED BACK ON BIPAP AFTER FINISHED. SATS DIPPED FROM 85-95% DURING TIME ON VAPOTHERM.
--- NOTE | 2018-12-09 14:41 | Progress Note - Cardiology ---
Cardiology SOAP Progress Note Subjective: Ok with BiPAP on Short of breath and hypoxic with BiPAP off No cp or palp or syncope Objective: I&O/Vital Signs 12/09/18 12/09/18 12/09/18 12/09/18 04:00 04:00 06:27 07:00 Temp 36.2 Pulse 80 70 86 Resp 18 30 B/P (MAP) 147/70 (95) Pulse Ox 99 93 O2 Delivery NIV Bilevel O2 Flow Rate 55.00 55.00 12/09/18 12/09/18 12/09/18 12/09/18 08:00 08:00 10:25 12:00 Temp 35.8 Pulse 73 72 Resp 40 24 B/P (MAP) 146/63 (90) Pulse Ox 93 95 O2 Delivery NIV Bilevel NIV Bilevel O2 Flow Rate 55.00 55.00 FiO2 55 12/09/18 12/09/18 12/09/18 12:00 12:43 14:08 Pulse 79 77 72 Resp 19 20 B/P (MAP) 143/68 (93) Pulse Ox 86 100 O2 Delivery NIV Bilevel O2 Flow Rate 55.00 55.00 12/09/18 00:00 Intake Total 650 ml Output Total 1700 ml Balance -1050 ml Weight (Pounds): 245 Weight (Ounces): 6.0 Weight (Calculated Kilograms): [id number] Constitutional: AAO x 3, well-developed, well-nourished, other (on BiPAP) Respiratory: No accessory muscle use; other (diminishe air entry, prolonged exp phase, coarse basal and mid-zone crackles) Cardiovascular: regular rate-rhythm, S1 and S2, systolic murmur (faint PAUL at card base) Gastrointestional: No tender, No guarding, No rebound; audible bowel sounds Extremities: swelling (mod, bilat, pitting and nonpitting edema); No clubbing, No cyanosis Neurologic/Psychiatric: oriented x 3, grossly intact, power is 5/5 both on sides Skin: No rash on exposed areas, No ulcerations on exposed areas Results/Procedures: Labs Laboratory Tests 12/09/18 04:00: White Blood Count 11.6H, Red Blood Count 3.54L, Hemoglobin 9.5L, Hematocrit 31L, Mean Corpuscular Volume 86, Mean Corpuscular Hemoglobin 27, Mean Corpuscular Hemoglobin Concent 31L, Red Cell Distribution Width 19.0H, Platelet Count 282, Mean Platelet Volume 9.8, Neutrophils (%) (Auto) 93H, Lymphocytes (%) (Auto) 3L, Monocytes (%) (Auto) 4, Eosinophils (%) (Auto) 0, Basophils (%) (Auto) 0, Neutrophils # (Auto) 10.7H, Lymphocytes # (Auto) 0.4L, Monocytes # (Auto) 0.5, Eosinophils # (Auto) 0.0, Basophils # (Auto) 0.0, Sodium Level 134L, Potassium Level 3.9, Chloride Level 91L, Carbon Dioxide Level 31, Anion Gap 12, Blood Urea Nitrogen 38H, Creatinine 1.03, Estimat Glomerular Filtration Rate > 60, BUN/Creatinine Ratio 37, Glucose Level 219H, Calcium Level 8.4L Microbiology 11/24/18 Blood Culture - Final, Complete No growth 11/28/18 MRSA Screen - Final, Complete MRSA not isolated 11/24/18 Urine Culture - Final, Complete Mixed Bacterial Wendy Proteus mirabilis Laboratory Tests 12/09/18 04:00 A/P: Assessment: Persistent multifactorial shortness of breath and chronic resp failure: pulmonary fibrosis, pneumonia, obesity-hypoventilation, chronic diastolic CHF Prolapse of colostomy, managed by Dr. Mccullough Hypertension, difficult to control Anemia of undetermined etiology, managed by the [facility], blood transfusion during this admission Acute on chronic renal failure, monitor renal function UTI, Dr Aburto managing Echo of 11/30/18: LVEF 55-65 percent, pulmonary hypertension with RVSP 65 mmHG, mild to mod tricuspid & mitral regurgitation, aortic valve sclerosis and mod MAC w/o stenoses Coronary artery disease, history of CABG x3 done in 1999 using RODRIGEZ to LAD, vein graft to the first obtuse marginal, vein graft to the left posterolateral branch of the left circumflex artery. Cardiac catheterization was done in November 2013 showed occluded vein graft to the left circumflex artery. Patient had 2 stents in the [place] circumflex artery, 3.516 mm proximally and 3.520 mm at the midportion, distally there was 60 percent stenosis. The LAD had significant disease proximally, patient has significantly tortuous thoracic and abdominal aorta and RODRIGEZ angio was not done due to the use of large amount of contrast. The right coronary artery was a small none dominant artery was not even visualized during this study. Patient had another stent placed in the circumflex artery at [facility] in 2015 Heavily calcified thoracic and abdominal aorta. CTA done on 01/06/2014 revealed no aneurysm or occlusions or stenosis of abdominal aorta or major branches, continue to monitor Hyperglycemia, managed by Dr Aburto History of CVA Mild carotid stenosis, nonobstructive disease bilaterally COPD/obstructive sleep apnea History of prostate CA with questionable metastasis followed and managed at [facility] (according to the pt) Cauda equina syndrome, h/o surgery Plan: * Complex management due to multiple comorbidities * Monitor labs MARY MENDEZ MD FACP FACC CCDS Dec 09, 2018 14:41
--- NOTE | 2018-12-09 15:49 | Progress Note - Hospitalist ---
Subjective HPI/CC On Admission Date Seen by Provider: Dec 09, 2018 Time Seen by Provider: 09:00 Dyspnea with hypoxia and blood from colostomy Subjective/Events-last exam He continues to rapidly become short of breath when taking the BiPAP off for meals. He denies any pain complaints at this time. He denies any fevers, chills, chest pain, abdominal pain, nausea, vomiting, or diarrhea. His ostomy output has been nonbloody and well formed. Objective Exam Vital Signs Vital Signs Date Time Temp Pulse Resp B/P (MAP) Pulse Ox O2 Delivery O2 Flow Rate FiO2 12/09/18 14:08 72 20 100 55.00 12/09/18 12:00 143/68 (93) NIV Bilevel 12/09/18 12:00 35.8 12/09/18 08:00 55 Capillary Refill : Less Than 3 Seconds General Appearance: Mild Distress, Obese, Other (Wearing BiPAP) Respiratory: Decreased Breath Sounds, Respiratory Distress (Wearing BiPAP), Other (Tachypnea) Cardiovascular: Regular Rate, Rhythm, No Edema, No Murmur Gastrointestinal: Normal Bowel Sounds, Non Tender, Soft, Other (Prolapsed ostomy and left lower quadrant with well-formed, nonbloody output) Extremity: Normal Inspection, Non Tender, No Pedal Edema Neurologic/Psychiatric: Alert; No Disoriented Skin: Normal Color, Warm/Dry Results/Procedures Lab Laboratory Tests 12/09/18 04:00 Patient resulted labs reviewed. Assessment/Plan Assessment and Plan Assess & Plan/Chief Complaint Pulmonary fibrosis Acute on chronic respiratory failure with hypoxia -Continue Vancomycin and Eraxis -Continue BiPAP -Continue Solumedrol Prolapsed colostomy Blood per colostomy, resolved Incarcerated ventral/stomal hernia Chronic anemia Chronic decubitus ulcers Chronic obstructive sleep apnea Coronary artery disease Cauda equina syndrome Chronic indwelling suprapubic catheter Leukocytosis, resolved Hyperkalemia, resolved Hypermagnesemia, resolved Proteus urinary tract infection, resolved DVT prophylaxis: Lovenox Diagnosis/Problems Diagnosis/Problems (1) Acute respiratory failure Status: Acute (2) Pulmonary fibrosis Status: Chronic (3) Colostomy complication Status: Acute (4) Suprapubic catheter Status: Chronic (5) Cauda equina syndrome Status: Chronic Clinical Quality Measures DVT/VTE Risk/Contraindication: Risk Factor Score Per Nursin RFS Level Per Nursing on Admit: 4+=Very High CHAR HERRERA MD Dec 09, 2018 15:49
[2018-12-09] MEDS: MELATONIN 3 MG TABLET PO SCH (21:30)
[2018-12-09] MEDS: ASPIRIN E.C. 81 MG (ECOTRIN) TAB PO SCH (21:30)
[2018-12-10] VITALS (13 sets, daily range): BP systolic 143–178; BP diastolic 71–141
[2018-12-10] MEDS: RT-ALBUTEROL/IPRATROPIUM 3 ML (DUONEB) VIAL INH SCH ×6 (01:39→21:54)
[2018-12-10] MEDS: methylPREDNISolone 40 MG/ML (Solu-MEDROL) VIAL IV SCH ×4 (03:26→21:13)
[2018-12-10] MEDS: morphine INJ 10 MG/ML 1ML (SYR OR VIAL) IVP PRN ×4 (04:53→23:00)
[2018-12-10] MEDS: hydrALAZINE (APRESOLINE) 25 MG TAB PO SCH ×3 (05:37→21:13)
[2018-12-10] MEDS: VITAMIN D3 400 UNITS (CHOLECALCIFEROL) TABLET PO SCH ×2 (08:01→21:13)
[2018-12-10] MEDS: DULoxetine 30 MG (CYMBALTA) CAP PO SCH (08:01)
[2018-12-10] MEDS: PANTOPRAZOLE 40 MG (PROTONIX) TAB PO SCH (08:01)
[2018-12-10] MEDS: ANIDULAFUNGIN INJECTION 100 MG in NS (IVPB) 100 ML IV SCH (08:01)
[2018-12-10] MEDS: BUMETANIDE 2.5 MG/10 ML (BUMEX) VIAL IV SCH ×2 (08:01→21:13)
[2018-12-10] MEDS: ENOXAPARIN 40 MG/0.4 ML (LOVENOX) SYR SC SCH (08:01)
[2018-12-10] MEDS: CLOPIDOGREL 75 MG (PLAVIX) TABLET PO SCH (08:02)
[2018-12-10] MEDS: CARVEDILOL 12.5 MG (COREG) TABLET PO SCH ×2 (08:02→21:13)
[2018-12-10] MEDS: MULTIVIT W/MINERALS TAB (THERAGRAN M) PO SCH (08:02)
[2018-12-10] MEDS: amLODIPine 10 MG (NORVASC) TAB PO SCH (08:02)
[2018-12-10] MEDS: cloNIDine 0.2 MG (CATAPRES) TAB PO SCH ×2 (08:02→21:13)
[2018-12-10] MEDS: GABAPENTIN 600 MG (NEURONTIN) TAB PO SCH ×2 (08:02→21:13)
[2018-12-10] MEDS: POLYETHYLENE GLYCOL 17 GM (MIRALAX) PACK PO SCH (08:03)
--- NOTE | 2018-12-10 08:40 | Cardiology Progress Note ---
Subjective Date Seen by Provider: Dec 10, 2018 Time Seen by Provider: 08:38 Subjective/Events-last exam Patient is laying down in bed, on BiPAP, still having shortness of breath, no chest pain. No palpitation. Review of Systems General: No Chills, No Night Sweats; Fatigue, Malaise; No Appetite, No Other HEENT: No Head Aches, No Visual Changes, No Eye Pain, No Ear Pain, No Dysp hasia, No Sinus Congestion, No Post Nasal Drip, No Sore Throat, No Other Pulmonary: Dyspnea; No Cough, No Pleuritic Chest Pain, No Other Cardiovascular: No: Chest Pain, Palpitations, Orthopnea, Paroxysmal Noc. Dy spnea, Edema, Lt Headedness, Other Objective-Cardiology Exam Last Set of Vital Signs Vital Signs 12/10/18 12/10/18 12/10/18 04:00 07:16 07:42 Temp 36.0 Pulse 72 Resp 22 B/P (MAP) 178/82 (114) Pulse Ox 95 O2 Delivery NIV Bilevel O2 Flow Rate 55.00 FiO2 100 Capillary Refill : Less Than 3 Seconds I&O Intake and Output 12/10/18 00:00 Intake Total 1967.5 ml Output Total 2800 ml Balance -832.5 ml Intake Oral 1320 ml IV Total 647.5 ml Output Urine Total 2800 ml General: Alert, Oriented X3, Cooperative, Mild Distress, Moderate Distress HEENT: PERRLA Neck: Supple Lungs: Other (DECREASED WITH CRACKLES IN BASES) Heart: Regular Rate, Normal S1, Normal S2 Abdomen: Normal Bowel Sounds, Soft, Other (OSTOMY LEFT LOWER ABDOMEN BAG INTACT) Extremities: No Cyanosis Skin: No Significant Lesion Neuro: Normal Speech, Cranial Nerves 3-12 NL Psych/Mental Status: Mental Status NL, Mood NL A/P-Cardiology Admission Diagnosis Prolapsed colostomy bag Malignant hypertension COPD Coronary artery disease Assessment/Plan Shortness of breath, respiratory failure multifactorial, currently on BiPAP alternating with Vapotherm, maintained on Solu-Medrol and antibiotic, underlying pulmonary fibrosis and COPD. Possible transfer to [place] when stable enough to tolerate the transfer. Managed by primary care team Pneumonia with ARDS, receiving antibiotics, managed by primary care team Prolapsed of colostomy, constipation, reporting improvement in his constipation. Managed by Dr. Mccullough Hypertension, continue current medication monitor blood pressure Anemia, continue to monitor H&H Acute on chronic renal failure, monitor renal function Elevated BNP, echocardiogram done in September 2018 showing normal left ventricular size with ejection fraction 55-65 percent, grade 2 diastolic dysfunction, mild mitral regurgitation, aortic valve sclerosis, pulmonary hypertension with PA pressure of 50 mmHg. Hypertensive heart disease. Continue to monitor Coronary artery disease, history of CABG x3 done in 1999 using RODRIGEZ to LAD, vein graft to the first obtuse marginal, vein graft to the left posterolateral branch of the left circumflex artery. Cardiac catheterization was done in November 2013 showing occluded vein graft to the left circumflex artery. Patient had 2 stents in the [place] circumflex artery using 3.516 mm proximally and 3.520 mm at the midportion Promus Premier stents, distally there was 60 percent stenosis which will be monitored. The LAD has significant disease proximally, patient has significantly tortuous thoracic and abdominal aorta. Deferred the the evaluation of the RODRIGEZ due to the use of large amount of contrast. The right coronary artery is a small none dominant artery was not even visualized during this study. Patient had another stent placed in the circumflex artery in [facility] in 2014, no recent workup for follow-up was done. continue to monitor at this time Heavily calcified thoracic and abdominal aorta. CTA done on 01/06/2014 revealed no aneurysm or occlusions or stenosis of abdominal aorta or major branches, continue to monitor Hyperlipidemia, continue to monitor. History of CVA. Continue to monitor. Mild carotid stenosis, nonobstructive disease bilaterally, has been followed in [facility], requesting to transfer is service back to my office. I will evaluate carotid ultrasound as an outpatient COPD/obstructive sleep apnea, Continue to monitor. History of prostate CA with questionable metastasis, patient expressed that it has been followed and managed at . He reported that it was slow growing and the recommendation was conservative management. Cauda equina syndrome, underwent surgery, patient expressed that he did not have full recovery Clinical Quality Measures DVT/VTE Risk/Contraindication: Risk Factor Score Per Nursin RFS Level Per Nursing on Admit: 4+=Very High KIMBERLI BARRETT MD Dec 10, 2018 08:40
--- NOTE | 2018-12-10 09:23 | Progress Note ---
Subjective Date Seen by a Provider: Dec 10, 2018 Time Seen by a Provider: 08:10 Objective Exam Last Set of Vital Signs Vital Signs Date Time Temp Pulse Resp B/P (MAP) Pulse Ox O2 Delivery O2 Flow Rate FiO2 12/10/18 08:00 72 10 150/73 (98) 96 NIV Bilevel 55.00 12/10/18 07:16 100 12/10/18 04:00 36.0 Capillary Refill : Less Than 3 Seconds I&O Intake and Output 12/09/18 23:59 Intake Total 1967.5 ml Output Total 2800 ml Balance -832.5 ml Intake Oral 1320 ml IV Total 647.5 ml Output Urine Total 2800 ml Results Lab Microbiology 11/24/18 Blood Culture - Final, Complete No growth 11/28/18 MRSA Screen - Final, Complete MRSA not isolated 11/24/18 Urine Culture - Final, Complete Mixed Bacterial Wendy Proteus mirabilis Assessment/Plan Assessment/Plan Assess & Plan/Chief Complaint PULMONARY FIBROSIS WITH WORSENING DYSPNEA AND HYPOXEMIA WITH CHRONIC OXYGEN THERAPY PROLAPSED COLOSTOMY BLOOD PER COLOSTOMY INCARCERATED VENTRAL/STOMAL HERNIA CHRONIC ANEMIA CHRONIC DECUBITUS ULCERS CHRONIC OBSTRUCTIVE SLEEP APNEA CORONARY ARTERY DISEASE 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 LEUKOCYTOSIS HYPERKALEMIA (NOW RESOLVED) HYPERMAGNESEMIA PROTEUS URINARY TRACT INFECTION PULMONARY FIBROSIS WITH WORSENING DYSPNEA AND HYPOXEMIA WITH CHRONIC OXYGEN THERAPY - PT ON IV ANTIBIOTICS - CONTINUE WITH CURRENT MANAGEMENT - VANC AND ERAXIS - THE CT ON ADMISSION WAS NEGATIVE FOR PULMONARY EMBOLI AND THE REPEAT CT SCAN WAS NEGATIVE FOR PULMONARY EMBOLI, DID SHOW PLEURAL EFFUSIONS AND CHEST XRAY CONTINUES TO SHOW INFILTRATE AND SMALL EFFUSIONS - CONTINUE WITH ICU MANAGEMENT OF THIS PATIENT - PT HAD IMPROVED INCREMENTALLY, NOW HAS SHOWN A DECLINE. - I HAVE HAD AN EXTENSIVE CONVERSATION ON 12/05/18 WITH ALBINA AND HIS DTR (KLEVER) ABOUT [facility]. I WOULD BE HOPEFUL THAT ALBINA MAY BE IMPROVED ENOUGH TO BE STABLE FOR TRANSFER ON BIPAP TO [facility] ON MONDAY OR MONDAY OF NEXT WEEK. RIGHT NOW, MY CONCERN IS THAT HE IS GOING TO HAVE INCREASED RISK OF DECOMPENSATION EN-ROUTE DUE TO HIS CURRENT TENUOUS STATE - IF WE CAN IMPROVE HIM A LITTLE MORE, WE SHOULD HAVE A SUCCESSFUL TRANSFER. ALBINA IS GOING TO HAVE HIS FAMILY IN THE ROOM AND HAVE DEDRA COME AGAIN TODAY TO TALK TO HIM AND HIS FAMILY ABOUT POSSIBLE TRANSFER TO THEIR FACILITY TO ATTEMPT BIPAP WEANING. ALBINA IS ALSO CONSIDERING HOSPICE. CXR TODAY: IMPRESSION: 1. Cardiac enlargement with mild vascular congestion but overall appears improved from prior study. 2. Scattered extensive bilateral pulmonary infiltrates persisting stable to slightly improved. PROLAPSED COLOSTOMY AND BLOOD PER COLOSTOMY WITH INCARCERATED VENTRAL/STOMAL HERNIA - DEFER TO DR. PAN - AT THIS TIME WE ARE WAITING ON ANY SURGICAL INTERVENTION DUE TO HIS PULMONARY STATUS CHRONIC ANEMIA - HGB HAD INCREMENTAL DECLINE TODAY CHRONIC DECUBITUS ULCERS - WOUND CARE CONSULTED CHRONIC OBSTRUCTIVE SLEEP APNEA - SEE ABOVE STATUS - ON BIPAP BREATHING TREATMENTS, ETC. CORONARY ARTERY DISEASE - DR. BARRETT CONSULTED - APPRECIATE HIS INPUT ON THIS COMPLICATED PATIENT. CAUDA EQUINA SYNDROME - AT THIS TIME - WE WILL CONTINUE WITH PHYSICAL THERAPY IN BED ONLY - DUE TO PT'S PULMONARY DECONDITIONING AND INABILITY TO LEAVE ROOM. CHRONIC INDWELLING SUPRAPUBIC CATHETER - SUPPORTIVE CARE ONLY AT THIS TIME LEUKOCYTOSIS - MONITOR WBC'S, PT ON SOLUMEDROL 40MG IV Q6 HR - WHICH HAS CAUSED IATROGENIC WBC ELEVATION - NORMALIZED TODAY. PROTEUS URINARY TRACT INFECTION - ON ZOSYN TREATMENT HAS BEEN COMPLETED. OVERALL PROGNOSIS JAIL IS A POOR PROGNOSIS DUE TO HIS MULTIPLE CO-MORBID CONDITIONS. I HAVE HAD A CONVERSATION WITH ALBINA IN THE OFFICE AT HIS LAST OFFICE VISIT - INSTIGATED BY ALBINA HIMSELF. HE UNDERSTANDS THAT WITH RECURRENT INFECTIONS, HIS RISK OF GREATLY INCREASES AND HE HAS HIGH RISK FOR IN THE NEXT FEW MONTHS. Clinical Quality Measures DVT/VTE Risk/Contraindication: Risk Factor Score Per Nursin RFS Level Per Nursing on Admit: 4+=Very High FEDE BUTLER MD Dec 10, 2018 09:22
--- NOTE | 2018-12-10 11:57 | Occupational Ther Daily Note ---
OT Current Status-Daily Note Subjective Checked with nrsg prior to working with pt. Nrsg okay with working with pt as long as it was with bed exercises. Pt agrees to therapy. Pt states at end of session that he was proud of himself that he could do the exercises. Mental Status/Objective Patient Orientation: Person, Place, Time, Situation Attachments: Barrios Catheter, IV, Oxygen (BiPap, Vapotherm), Telemetry ADL-Treatment Therapy Code Descriptions/Definitions Functional [place] Measure: 0=Not Assessed/NA 4=Minimal Assistance 1=Total Assistance 5=Supervision or Setup 2=Maximal Assistance 6=Modified [place] 3=Moderate Assistance 7=Complete IndependenceSCALE: Activities may be completed with or without assistive devices. 5-Aywvvtgrrd-bnkkecf completes the activity by him/herself with no assistance from a helper. 5-Set-up or Clean-up Assistance-helper sets up or cleans up; patient completes activity. [place] assists only prior to or following the activity. 4-Supervision or Touching Assistance-helper provides verbal cues and/or touching/steadying and/or contact guard assistance as patient completes activity. Assistance may be provided throughout the activity or intermittently. 3-Partial/Moderate Assistance-helper does LESS THAN HALF the effort. [place] lifts, holds or supports trunk or limbs, but provides less than half the effort. 2-Substantial/Maximal Assistance-helper does MORE THAN HALF the effort. [place] lifts or holds trunk or limbs and provides more than half the effort. 8-Clgodsvke-tyfnlk does ALL the effort. Patient does none of the effort to complete the activity. Or, the assistance of 2 or more helpers is required for the patient to complete the activity. If activity was not attempted, code reason: 7-Patient Refused. 9-Not Applicable-not attempted and the patient did not perform the activity before the current illness, exacerbation or injury. 10-Not Attempted due to Environmental Limitations-(lack of equipment, weather restraints, etc.). 88-Not Attempted due to Medical Conditions or Safety Concerns. Other Treatment Pt able to complete 3 UE exercises with gravity eliminated assistance. Pt able to complete 10 of each and recovery periods after each, pulsox read O2 sats at 88-89 after each exercise, monitor was at 95%. After therapy, pt lying in bed with call light/phone in reach. All needs met in room. OT Short Term Goals Short Term Goals 1=Demonstrate adherence to instructed precautions during ADL tasks. 2=Patient will verbalize/demonstrate understanding of assistive devices/mod ifications for ADL. 3=Patient will improve strength/tolerance for activity to enable patient to perform ADL's. OT Detention Goals Detention Goals Time Frame: Dec 19, 2018 Eating (QC): 6 Oral Hygiene (QC): 5 Additional Goals: 1-Demonstrate ADL Tasks, 3-ImproveStrength/Razia 1=Demonstrate adherence to instructed precautions during ADL tasks. 2=Patient will verbalize/demonstrate understanding of assistive devices/modifications for ADL. 3=Patient will improve strength/tolerance for activity to enable patient to perform ADL's. OT Education/Plan Problem List/Assessment Assessment: Decreased Activ Tolerance, Decreased Safety Aware, Decreased UE Strength, Impaired Self-Care Skills, Restricted Funct UE ROM Pt demonstrates impaired ADL functioning, mobility, strength, and activity tolerance. Pt to benefit from skilled OT intervention for ADL training and strengthening to maximize level of function and allow safe discharge plan. Discharge Recommendations Plan/Recommendations: Continue POC Treatment Plan/Plan of Care Patient would benefit from OT for education, treatment and training to promote independence in ADL's, mobility, safety and/or upper extremity function for ADL's. Plan of Care: ADL Retraining, Functional Mobility, UE Funct Exercise/Act Treatment Duration: Dec 19, 2018 Frequency: 5 times per week Estimated Hrs Per Day: .25 hour per day Rehab Potential: Guarded Time/GCodes Start Time: 11:10 Stop Time: 11:20 Total Time Billed (hr/min): 10 Billed Treatment Time 1 visit-EX 1 (10 min) ABIMAEL RAMOS Dec 10, 2018 11:57
[2018-12-10] MEDS: LOSARTAN 50 MG (COZAAR) TAB PO SCH (12:10)
--- NOTE | 2018-12-10 14:40 | Physical Therapy Daily Note ---
PT Daily Note-Current Subjective Stated he was willing to sit at edge of bed. is hoping to increase his activity. He denied pain but was hungry for air after treatment x 2 min although O2 sats were between 89 - 94%. Pain Numeric Pain Scale: 0-No Pain Mental Status Patient Orientation: Person, Place, Time Attachments: Colostomy/Ileostomy, Oxygen, Barrios Catheter, IV O2 sat monitor on forehead. Bipap. Transfers SCALE: Activities may be completed with or without assistive devices. 3-Extfglrcti-zazoxwo completes the activity by him/herself with no assistance from a helper. 5-Set-up or Clean-up Assistance-helper sets up or cleans up; patient completes activity. [place] assists only prior to or following the activity. 4-Supervision or Touching Assistance-helper provides verbal cues and/or touching/steadying and/or contact guard assistance as patient completes activity. Assistance may be provided throughout the activity or intermittently. 3-Partial/Moderate Assistance-helper does LESS THAN HALF the effort. [place] lifts, holds or supports trunk or limbs, but provides less than half the effort. 2-Substantial/Maximal Assistance-helper does MORE THAN HALF the effort. [place] lifts or holds trunk or limbs and provides more than half the effort. 1-Qutzrctkj-qtpqgc does ALL the effort. Patient does none of the effort to complete the activity. Or, the assistance of 2 or more helpers is required for the patient to complete the activity. If activity was not attempted, code reason: 7-Patient Refused. 9-Not Applicable-not attempted and the patient did not perform the activity before the current illness, exacerbation or injury. 10-Not Attempted due to Environmental Limitations-(lack of equipment, weather restraints, etc.). 88-Not Attempted due to Medical Conditions or Safety Concerns. Gait Training Does the Patient Walk?: No and Walking Goal NOT indicated Exercises Supine Ex: Ankle pumps, Quad Set, Heel Slides, Scooting, Straight leg raise Supine Reps: 10 Seated Therapy Exercises: Ankle pumps Treatments Assist x 2 for supine to sit at edge of bed although pt able to help scoot around and maintain indep sitting balance. Seated LAQ and AP. Sat x 5 min. Assessment Current Status: Good Progress (Phillip tolerated sitting at edge of bed with O2 sats between 87 - 97%. After lying down he was ashen and anxious for a couple of minutes but regained slower breathing with cues. ) PT Fdc Goals Fdc Goals PT Auger Operator Goals Time Frame: Dec 15, 2018 Sit to Lying (QC): 5 Lying-Sitting on Side/Bed(QC): 5 Sit to Stand (QC): 5 Roll Left to Right (QC): 5 Chair/Mgi-tu-Svxyc Xfer(QC): 5 Car Transfer (QC): 5 Does the Patient Walk: No and Walking Goal NOT indicated PT Plan Problem List Problem List: Activity Tolerance, Functional Strength, Safety Treatment/Plan Treatment Plan: Continue Plan of Care Treatment Plan: Bed Mobility, Education, Functional Activity Razia, Functional Strength, Safety, Therapeutic Exercise, Transfers Treatment Duration: Dec 15, 2018 Frequency: 5 times per week Estimated Hrs Per Day: .25 hour per day Patient and/or Family Agrees t: Yes Time/GCodes Time In: 150 Time Out: 220 Total Billed Treatment Time: 30 Total Billed Treatment 1, EX x 2 30 min MIRTHA ESPITIA PT Dec 10, 2018 14:40
[2018-12-10] MEDS: MELATONIN 3 MG TABLET PO SCH (21:14)
[2018-12-10] MEDS: ASPIRIN E.C. 81 MG (ECOTRIN) TAB PO SCH (21:14)
[2018-12-11] VITALS (7 sets, daily range): BP systolic 148–172; BP diastolic 77–99
[2018-12-11] MEDS: RT-ALBUTEROL/IPRATROPIUM 3 ML (DUONEB) VIAL INH SCH ×4 (02:21→14:18)
[2018-12-11] MEDS: methylPREDNISolone 40 MG/ML (Solu-MEDROL) VIAL IV SCH ×2 (03:46→11:02)
[2018-12-11] MEDS: morphine INJ 10 MG/ML 1ML (SYR OR VIAL) IVP PRN ×3 (03:47→14:32)
[2018-12-11] MEDS: hydrALAZINE (APRESOLINE) 25 MG TAB PO SCH ×3 (05:54→14:43)
--- NOTE | 2018-12-11 08:01 | Cardiology Progress Note ---
Subjective Date Seen by Provider: Dec 11, 2018 Time Seen by Provider: 07:59 Subjective/Events-last exam Patient is in bed, still short of breath, no new complaint Review of Systems General: No Chills, No Night Sweats; Fatigue, Malaise; No Appetite, No Other HEENT: No Head Aches, No Visual Changes, No Eye Pain, No Ear Pain, No Dysphasia, No Sinus Congestion, No Post Nasal Drip, No Sore Throat, No Other Pulmonary: Dyspnea; No Cough, No Pleuritic Chest Pain, No Other Cardiovascular: No: Chest Pain, Palpitations, Orthopnea, Paroxysmal Noc. Dyspnea, Edema, Lt Headedness, Other Objective-Cardiology Exam Last Set of Vital Signs Vital Signs 12/10/18 12/11/18 12/11/18 12/11/18 12:44 05:43 06:00 06:44 Temp 35.2 Pulse 73 Resp 22 B/P (MAP) 172/82 (112) Pulse Ox 95 O2 Delivery NIV Bilevel O2 Flow Rate 55.00 FiO2 55 Capillary Refill : Less Than 3 Seconds I&O Intake and Output 12/11/18 00:00 Intake Total 1315 ml Output Total 2975 ml Balance -1660 ml Intake Oral 1315 ml Output Urine Total 2450 ml Stool Total 525 ml # Bowel Movements 1 General: Alert, Oriented X3, Cooperative, Mild Distress, Moderate Distress HEENT: PERRLA Neck: Supple Lungs: Other (DECREASED WITH CRACKLES IN BASES) Heart: Regular Rate, Normal S1, Normal S2 Abdomen: Normal Bowel Sounds, Soft, Other (OSTOMY LEFT LOWER ABDOMEN BAG INTACT) Extremities: No Cyanosis Skin: No Significant Lesion Neuro: Normal Speech, Cranial Nerves 3-12 NL Psych/Mental Status: Mental Status NL, Mood NL A/P-Cardiology Admission Diagnosis Prolapsed colostomy bag Malignant hypertension COPD Coronary artery disease Assessment/Plan Acute on chronic respiratory failure, multifactorial, currently on BiPAP alternating with Vapotherm, maintained on Solu-Medrol and antibiotic, underlying pulmonary fibrosis and COPD. Possible transfer to [facility] when stable enough to tolerate the transfer. Managed by primary care team Pneumonia with ARDS, receiving antibiotics, managed by primary care team Prolapsed of colostomy, constipation, reporting improvement in his constipation. Managed by Dr. Mccullough Hypertension, poorly controlled secondary to steroids on multiple medication at this time, continue to monitor Anemia, continue to monitor H&H Acute on chronic renal failure, monitor renal function Elevated BNP, echocardiogram done in September 2018 showing normal left ventricular size with ejection fraction 55-65 percent, grade 2 diastolic dysfunction, mild mitral regurgitation, aortic valve sclerosis, pulmonary hypertension with PA pressure of 50 mmHg. Hypertensive heart disease. Continue to monitor Coronary artery disease, history of CABG x3 done in 1999 using RODRIGEZ to LAD, vein graft to the first obtuse marginal, vein graft to the left posterolateral branch of the left circumflex artery. Cardiac catheterization was done in November 2013 showing occluded vein graft to the left circumflex artery. Patient had 2 stents in the belkofski circumflex artery using 3.516 mm proximally and 3.520 mm at the midportion Promus Premier stents, distally there was 60 percent stenosis which will be monitored. The LAD has significant disease proximally, patient has significantly tortuous thoracic and abdominal aorta. Deferred the the evaluation of the RODRIGEZ due to the use of large amount of contrast. The right coronary artery is a small none dominant artery was not even visualized during this study. Patient had another stent placed in the circumflex artery in [facility] in 2014, no recent workup for follow-up was done. continue to monitor at this time Heavily calcified thoracic and abdominal aorta. CTA done on 01/06/2014 revealed no aneurysm or occlusions or stenosis of abdominal aorta or major branches, continue to monitor Hyperlipidemia, continue to monitor. History of CVA. Continue to monitor. Mild carotid stenosis, nonobstructive disease bilaterally, has been followed in [facility], requesting to transfer is service back to my office. I will evaluate carotid ultrasound as an outpatient COPD/obstructive sleep apnea, Continue to monitor. History of prostate CA with questionable metastasis, patient expressed that it has been followed and managed at . He reported that it was slow growing and the recommendation was conservative management. Cauda equina syndrome, underwent surgery, patient expressed that he did not have full recovery Clinical Quality Measures DVT/VTE Risk/Contraindication: Risk Factor Score Per Nursin RFS Level Per Nursing on Admit: 4+=Very High KIMBERLI BARRETT MD Dec 11, 2018 08:01
[2018-12-11] MEDS ORDERED: CLON0.2T PO (08:25)
[2018-12-11] MEDS ORDERED: PRD20T PO (08:25)
[2018-12-11] MEDS ORDERED: HYDR-3923 PO (08:25)
--- NOTE | 2018-12-11 08:27 | Discharge Inst-Complex ---
PDI Reconcile Patient Problems Problems Reviewed?: Yes Med Rec & Follow Up Appt. New Medications: Prednisone (Prednisone) 20 Mg Tab 20 MG PO DAILY, #11 TAB Take 3 tabs(60mg)daily, decrease by 1/2 tab(10mg)daily. Clonidine HCl (Clonidine HCl) 0.2 Mg Tablet 0.2 MG PO BID, #60 TAB 2 Refills Hydralazine HCl (Hydralazine HCl) 25 Mg Tablet 25 MG PO Q8HR, #90 TAB Continued Medications: Albuterol Sulfate (Albuterol Sulfate) 2.5 Mg/3 Ml Vial.neb 2.5 MG NEB Q4H PRN for SHORTNESS OF BREATH, EA Amlodipine Besylate (Amlodipine Besylate) 10 Mg Tablet 10 MG PO DAILY, TAB Aspirin (Aspirin EC) 81 Mg Tablet.dr 81 MG PO HS, TAB Carvedilol (Carvedilol) 12.5 Mg Tablet 12.5 MG PO BID, TAB Cholecalciferol (Vitamin D3) (Vitamin D3) 400 Unit Capsule 400 UNIT PO BID, CAP Clopidogrel Bisulfate (Clopidogrel) 75 Mg Tablet 75 MG PO DAILY, TAB Duloxetine HCl (Duloxetine HCl) 30 Mg Capsule.dr 60 MG PO DAILY, CAP TAKES 2 (30MG) CAPSULES Furosemide (Furosemide) 40 Mg Tablet 40 MG PO DAILY, TAB Gabapentin (Gabapentin) 600 Mg Tablet 600 MG PO BID, TAB Losartan Potassium (Losartan Potassium) 50 Mg Tablet 50 MG PO NOON Melatonin (Melatonin) 5 Mg Capsule 5 MG PO HS, CAP Multivitamin (Multivitamins) 1 Each Tablet 1 TAB PO DAILY, TAB Oxycodone HCl (Oxycodone HCl) 5 Mg Tablet 20 MG PO DAILY, TAB TAKES 4 (5 MG) TABLETS TO EQUAL 20MG DAILY Pantoprazole Sodium (Pantoprazole Sodium) 40 Mg Tablet.dr 40 MG PO HS, TAB Polyethylene Glycol 3350 (Miralax) 17 Gm Powd.pack 17 GM PO DAILY, EACH Potassium Chloride (Potassium Chloride) 10 Meq Tablet.er 10 MEQ PO Q48H, TAB Discontinued Medications: Alirocumab (Praluent Pen) 75 Mg/1 Ml Pen.injctr 75 MG SC EVERY 2 WEEKS, EA Clonidine HCl (Clonidine HCl) 0.1 Mg Tablet 0.1 MG PO BID TKAE 1 TAB TWICE DAILY PRN IF SYSTOLIC BLOOD PRESSURE ABOVE 170 Diclofenac Sodium (Diclofenac Sodium) 75 Mg Tablet.dr 75 MG PO BID, TAB Metronidazole (Metronidazole) 500 Mg Tablet 500 MG PO TID PICKED UP A 14 DAY SUPPLY ON 11-20-2018 Sulfamethoxazole/Trimethoprim (Sulfamethoxazole-Tmp Ds Tablet) 1 Each Tablet 1 TAB PO BID PICKED UP A 14 DAY SUPPLY ON 11-14-2018 Prescription: Other (NOT TRANSMITTED PT IS NOT GOING HOME, 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 THESE MEDICATIONS ON DISCHARGE) Activity, Diet and PDI Resume Normal Activity: No Discharge Diet: Regular Diet Drink 6-8 Glasses of Fluid/Day: Yes Driving Instructions: No Driving/Refer to Return to The Hospital For: DISCHARGE TO LTAC - PLANNING ON DC FROM LTAC TO HOME, ONCE HOME IF HAVING LIFE THREATENING ILLNESS OR OTHER ACUTE CONCERNS FOR CRITICAL ILLNESS GO TO HOSPITAL Symptoms to Reoprt to : Fever Over 101 Degrees F, Pain/Pressure in Chest, Cough Up/Vomit Blood, Heart Beat Irreg/Pounding, Questions/Concerns, Nausea/Vomiting, Shortness of Breath For Problems or Questions: Contact Your Physician, Go to Emergency Room Infection Signs and Symptoms: Temperature Above 101 F FEDE BUTLER MD Dec 11, 2018 08:27
--- NOTE | 2018-12-11 08:33 | Discharge Summary ---
Diagnosis/Chief Complaint Date of Admission Nov 25, 2018 at 12:26 Date of Discharge Discharge Date: Dec 11, 2018 Discharge Time: 1000 Admission Diagnosis Admission Diagnosis Dyspnea with hypoxia no PE on CT angiogram Hyperkalemia Pulmonary fibrosis Prolapsed colostomy with blood per colostomy and stomal herniation/ventral hernia incarcerated-consulted Dr Pan Hx of cauda equina with SP catheter and colostomy since 2017 Anemia s/p 1 unit PRBC Decubitus ulcers GABI on CPAP with O2 Discharge Diagnosis PULMONARY FIBROSIS WITH WORSENING DYSPNEA AND HYPOXEMIA WITH CHRONIC OXYGEN THERAPY PROLAPSED COLOSTOMY BLOOD PER COLOSTOMY INCARCERATED VENTRAL/STOMAL HERNIA CHRONIC ANEMIA CHRONIC DECUBITUS ULCERS CHRONIC OBSTRUCTIVE SLEEP APNEA CORONARY ARTERY DISEASE 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 LEUKOCYTOSIS HYPERKALEMIA (NOW RESOLVED) HYPERMAGNESEMIA PROTEUS URINARY TRACT INFECTION Reason Hospital Visit History of present illness: This is a 77-year-old white male with a past medical history of cauda equina syndrome resulting in colostomy and suprapubic catheter in 2017 who presented to the ER with diminished output in colostomy for the past 3 days and then having some bloody mucus noted. He became more dyspneic so he presented to the ER underwent CT angiogram that revealed no pulmonary emboli but it appears that he has a hernia around the colostomy that has become problematic prompting general surgery consultation by Dr. Pan. At this current time I have reviewed and restarted all of his home medications and consulted cardiology and I have reviewed pulmonology and lab results. His for 59 years is at the bedside along with his son. Discharge Summary Consultations DR. BARRETT- CARDIOLOGY DR. CHIN - PULMONOLOGY WY[facility] SUTTON - PALLIATIVE CARE NURSING Discharge Physical Examination Allergies: Uncoded Allergies: SURGICAL TAPE (Adverse Reaction, Intermediate, IRRITATES SKIN, 08/16/10) Vitals & I&Os Vital Signs Date Time Temp Pulse Resp B/P (MAP) Pulse Ox O2 Delivery O2 Flow Rate FiO2 12/11/18 06:44 73 22 95 55.00 12/11/18 06:00 172/82 (112) NIV Bilevel 12/11/18 05:43 35.2 12/10/18 12:44 55 General Appearance: Alert, Oriented X3, Cooperative HEENT: Atraumatic Respiratory: Other (DECREASED THROUGHOUT, CRACKLES IN BASES) Cardiovascular: Regular Rate Abdominal: Normal Bowel Sounds, Soft, Other (OSTOMY IN LEFT LOWER ABDOMEN BAG IN PLACE, FECES NORMAL COLOR) Extremities: No Clubbing, No Cyanosis Neuro: Cranial Nerves 3-12 NL Psych/Mental Status: Mental Status NL, Mood NL Hospital Course Was the Problem List Reviewed?: Yes PULMONARY FIBROSIS WITH WORSENING DYSPNEA AND HYPOXEMIA WITH CHRONIC OXYGEN THERAPY PROLAPSED COLOSTOMY BLOOD PER COLOSTOMY INCARCERATED VENTRAL/STOMAL HERNIA CHRONIC ANEMIA CHRONIC DECUBITUS ULCERS CHRONIC OBSTRUCTIVE SLEEP APNEA CORONARY ARTERY DISEASE 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 LEUKOCYTOSIS HYPERKALEMIA (NOW RESOLVED) HYPERMAGNESEMIA PROTEUS URINARY TRACT INFECTION PULMONARY FIBROSIS WITH WORSENING DYSPNEA AND HYPOXEMIA WITH CHRONIC OXYGEN THERAPY - PT ON IV ANTIBIOTICS - CONTINUE WITH CURRENT MANAGEMENT - VANC AND ERAXIS - THE CT ON ADMISSION WAS NEGATIVE FOR PULMONARY EMBOLI AND THE REPEAT CT SCAN WAS NEGATIVE FOR PULMONARY EMBOLI, DID SHOW PLEURAL EFFUSIONS AND CHEST XRAY CONTINUES TO SHOW INFILTRATE AND SMALL EFFUSIONS - CONTINUE WITH ICU MANAGEMENT OF THIS PATIENT - PT HAD IMPROVED INCREMENTALLY, NOW HAS SHOWN A DECLINE. - I HAVE HAD AN EXTENSIVE CONVERSATION ON 12/05/18 WITH ALBINA AND HIS DTR (KLEVER) ABOUT [facility]. I WOULD BE HOPEFUL THAT ALBINA MAY BE IMPROVED ENOUGH TO BE STABLE FOR TRANSFER ON BIPAP TO [facility] ON MONDAY OR MONDAY OF NEXT WEEK. RIGHT NOW, MY CONCERN IS THAT HE IS GOING TO HAVE INCREASED RISK OF DECOMPENSATION EN-ROUTE DUE TO HIS CURRENT TENUOUS STATE - IF WE CAN IMPROVE HIM A LITTLE MORE, WE SHOULD HAVE A SUCCESSFUL TRANSFER. ALBINA IS GOING TO HAVE HIS FAMILY IN THE ROOM AND HAVE [facility] COME AGAIN TODAY TO TALK TO HIM AND HIS FAMILY ABOUT POSSIBLE TRANSFER TO THEIR FACILITY TO ATTEMPT BIPAP WEANING. ALBINA IS ALSO CONSIDERING HOSPICE. PROLAPSED COLOSTOMY AND BLOOD PER COLOSTOMY WITH INCARCERATED VENTRAL/STOMAL HERNIA - DEFER TO DR. PAN - AT THIS TIME WE ARE WAITING ON ANY SURGICAL INTERVENTION DUE TO HIS PULMONARY STATUS CHRONIC ANEMIA - HGB HAD INCREMENTAL DECLINE CHRONIC DECUBITUS ULCERS - WOUND CARE CONSULTED CHRONIC OBSTRUCTIVE SLEEP APNEA - SEE ABOVE STATUS - ON BIPAP BREATHING TREATMENTS, ETC. CORONARY ARTERY DISEASE - DR. BARRETT CONSULTED - APPRECIATE HIS INPUT ON THIS COMPLICATED PATIENT. CAUDA EQUINA SYNDROME - AT THIS TIME - WE WILL CONTINUE WITH PHYSICAL THERAPY IN BED ONLY - DUE TO PT'S PULMONARY DECONDITIONING AND INABILITY TO LEAVE ROOM. CHRONIC INDWELLING SUPRAPUBIC CATHETER - SUPPORTIVE CARE ONLY AT THIS TIME LEUKOCYTOSIS - MONITOR WBC'S, PT ON SOLUMEDROL 40MG IV Q6 HR - WHICH HAS CAUSED IATROGENIC WBC ELEVATION - WHICH HAS BEEN INTERMITTENTLY NORMALIZED. PT WILL NEED TO EITHER RESTART IV STEROIDS, OR ORAL STEROIDS ON DISCHARGE TO LTAC FACILITY SINCE HE HAS BEEN ON THE SOLUMEDROL FOR SEVERAL WEEKS AND AN ACUTE WITHDRAWAL INCREASES THE LIKELIHOOD OF ADRENAL CRISIS. PROTEUS URINARY TRACT INFECTION - ON ZOSYN TREATMENT HAS BEEN COMPLETED. OVERALL PROGNOSIS JAIL IS A POOR PROGNOSIS DUE TO HIS MULTIPLE CO-MORBID CONDITIONS. I HAVE HAD A CONVERSATION WITH ALBINA IN THE OFFICE AT HIS LAST OFFICE VISIT - INSTIGATED BY ALBINA HIMSELF. HE UNDERSTANDS THAT WITH RECURRENT INFECTIONS, HIS RISK OF GREATLY INCREASES AND HE HAS HIGH RISK FOR IN THE NEXT FEW MONTHS. ALBINA AND HIS FAMILY HAS DECIDED TO ATTEMPT TO WEAN OFF OF THE BIPAP SO THAT HE CAN BE SUCCESSFULLY TRANSFERRED TO HOME - HE WILL BE DISCHARGED TODAY TO LTAC - [facility]. Discharge Condition at discharge FAIR - Instructions to patient/family Please see electronic discharge instructions given to patient. Discharge Medications Reviewed and agree with Discharge Medication list on patient's Discharge Instruction sheet Clinical Quality Measures DVT/VTE Risk/Contraindication: Risk Factor Score Per Nursin RFS Level Per Nursing on Admit: 4+=Very High FEDE BUTLER MD Dec 11, 2018 08:33
[2018-12-11] MEDS ORDERED: LORazepam INJ 2 MG/ML (ATIVAN) VIAL ONE (08:46)
[2018-12-11] MEDS: POLYETHYLENE GLYCOL 17 GM (MIRALAX) PACK PO SCH (08:56)
[2018-12-11] MEDS: BUMETANIDE 2.5 MG/10 ML (BUMEX) VIAL IV SCH (08:56)
[2018-12-11] MEDS: CARVEDILOL 12.5 MG (COREG) TABLET PO SCH (08:56)
[2018-12-11] MEDS: PANTOPRAZOLE 40 MG (PROTONIX) TAB PO SCH (08:57)
[2018-12-11] MEDS: ANIDULAFUNGIN INJECTION 100 MG in NS (IVPB) 100 ML IV SCH (08:57)
[2018-12-11] MEDS: VITAMIN D3 400 UNITS (CHOLECALCIFEROL) TABLET PO SCH (08:57)
[2018-12-11] MEDS: GABAPENTIN 600 MG (NEURONTIN) TAB PO SCH (08:57)
[2018-12-11] MEDS: DULoxetine 30 MG (CYMBALTA) CAP PO SCH (08:57)
[2018-12-11] MEDS: MULTIVIT W/MINERALS TAB (THERAGRAN M) PO SCH (08:57)
[2018-12-11] MEDS: CLOPIDOGREL 75 MG (PLAVIX) TABLET PO SCH (08:57)
[2018-12-11] MEDS: amLODIPine 10 MG (NORVASC) TAB PO SCH (08:57)
[2018-12-11] MEDS: cloNIDine 0.2 MG (CATAPRES) TAB PO SCH (08:57)
[2018-12-11] MEDS: ENOXAPARIN 40 MG/0.4 ML (LOVENOX) SYR SC SCH (08:58)
[2018-12-11] MEDS ORDERED: LORazepam INJ 2 MG/ML (ATIVAN) VIAL IVP PRN (09:00)
--- NOTE | 2018-12-11 09:28 | NUR ---
DISCHARGE PLANNING: Plan is to transition to [facility], in [place]. He has been hard to get off of the BiPAP and they will continue to work on this. Updated clinical information sent to [facility] as well as discharge orders. Oral will review and let me know a room number if he still has criteria for [facility].
--- NOTE | 2018-12-11 13:08 | NUR ---
DISCHARGE PLANNING: Received call from Ilda Mixon. Patient will go to room 206 with them and and they are able to take him at 3 pm. Nursing notified. 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
[2018-12-11] MEDS: LOSARTAN 50 MG (COZAAR) TAB PO SCH ×2 (14:32→14:43)
== END 2018-12-11 15:16 | DRG 196 ==
LOC: EDUNIT# 13:36 → ER 13:37 → 4TH 17:49 → UNDOADMOB 17:49 → 4TH 19:50 → OBSVTOIN 11-25 12:26 → INTOOBSV 11-25 12:26 → 4TH 11-27 09:23 → ICU 11-27 09:26 → 4TH 11-27 09:26 → ICU 11-27 13:15 → UNDODISIN 12-11 15:16
PROVIDERS: ADMIT Internal Medicine; ATTEND Family Medicine
DX: J84.10 Pulmonary fibrosis, unspecified (principal); J80 Acute respiratory distress syndrome; I13.0 Hypertensive heart and chronic kidney disease with heart failure and stage 1 through stage 4 chronic kidney disease, or unspecified chronic kidney disease; I50.32 Chronic diastolic (congestive) heart failure; N18.9 Chronic kidney disease, unspecified; Z66 Do not resuscitate; N30.00 Acute cystitis without hematuria; N17.9 Acute kidney failure, unspecified; K94.09 Other complications of colostomy; K43.6 Other and unspecified ventral hernia with obstruction, without gangrene; G83.4 Cauda equina syndrome; J44.0 Chronic obstructive pulmonary disease with (acute) lower respiratory infection; J18.9 Pneumonia, unspecified organism; G47.33 Obstructive sleep apnea (adult) (pediatric); L89.312 Pressure ulcer of right buttock, stage 2; L89.322 Pressure ulcer of left buttock, stage 2; I25.10 Atherosclerotic heart disease of native coronary artery without angina pectoris; G89.4 Chronic pain syndrome; I34.0 Nonrheumatic mitral (valve) insufficiency; I27.20 Pulmonary hypertension, unspecified; I77.1 Stricture of artery; E78.00 Pure hypercholesterolemia, unspecified; D64.9 Anemia, unspecified; F32.9 Major depressive disorder, single episode, unspecified; R73.9 Hyperglycemia, unspecified; Z99.81 Dependence on supplemental oxygen; Z95.1 Presence of aortocoronary bypass graft; Z85.46 Personal history of malignant neoplasm of prostate; Z95.5 Presence of coronary angioplasty implant and graft; Z87.891 Personal history of nicotine dependence
CPT/HCPCS: 36415; 36430; 36569; 36600; 71045; 71275; 74177; 76937; 80048; 80053; 80202; 81000; 82805; 83605; 83690; 83735; 83880; 84100; 85007; 85025; 85027; 85610; 85730; 86850; 86900; 86901; 86920; 87040; 87077; 87081; 87088; 87186; 93306; 93970; 94640; 94660; 94760; 96361; 96374; G0378